=== PATIENT | female | born 1965 | race Hispanic/Latino ===

== ENCOUNTER 2022-06-06 10:50 | Emergency (ER) | payer MEDICARE ==
--- OUTSIDE RECORDS SUMMARY | 2022-06-06 10:59 | XMS REPORT | Continuity of Care Document ---
:1965 Author Organization [facility] t Address [address] [place] [address] Care Team Providers Name Role Phone LAKESHIA MATHIS Primary Care Physician Unavailable ROBSON MURILLO Attending Clinician Unavailable LAKESHIA MATHIS Attending Clinician Unavailable MANN PERDOMO Attending Clinician Unavailable MANN PERDOMO Attending Clinician Unavailable Lakeshia Mathis MD Attending Clinician [phone] Lester Monge MD Attending Clinician 2, [facility] Attending Clinician Unavailable BRAXTON CASTILLO M.D. Attending Clinician Unavailable ROBSON MURILLO, BRIAN Attending Clinician Unavailable Robson Murillo Nkiru Attending Clinician Unavailable Rahul Carmen Attending Clinician Smooth Chandler Attending Clinician Yana Chen Attending Clinician Rebecca Belle Attending Clinician Jie Ortega Attending Clinician MANN PERDOMO Admitting Clinician Unavailable Yana Chen Admitting Clinician Rebecca Belle Admitting Clinician Jie Ortega Admitting Clinician Payers Payer Name Policy Type Policy Number Effective Date Expiration Date Ryan ortiz 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 hyperlipid 10-24 it y of emia emia 00:00: [place] 00 Medical Branch History of History of Disease Active 2020-09 U nivers stroke stroke 10-24 ity of 00:00: [place] 00 Medical Branch Sciatic Sciatic Disease Active 2020-09 Univers nerve nerve 10-24 ity of pain, pain, 00:00: [place] right right 00 Medical Branch Limitation Limitation Disease Active U nivers of joint of joint 9-16 ity of motion of motion of 00:[place] right right 00 [place] wrist wrist Branch Limitation Limitation Disease Active U nivers of joint of joint 9-16 ity of motion of motion of 00:[place] right [place] right hand 00 Me dical Branch Chronic Chronic Disease Active Univers allergic allergic 6-10 ity of rhinitis rhinitis 00:00: [place] 00 Medical Branch Decreased Decreased Disease Active Uni vers activities activities 5-27 it y of of daily of daily 00:00: [place] living living 00 Medical (ADL) (ADL) Branch Stiffness Stiffness Disease Active Uni vers of right of right 5-27 ity of wrist wrist 00:00: [place] joint joint 00 Medical Branch Stiffness Stiffness Disease Active Uni vers of finger of finger 5-13 ity of joint of joint of 00:00: [place] right hand right hand 00 Me dical Branch Right hand Right hand Disease Active U nivers weakness weakness 5-13 ity of 00:00: [place] 00 Medical Branch 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 and 4-21 it y of urge urge 00:00: [place] urinary urinary 00 Medical incontinen incontinen Br anch ce ce Arthritis Arthritis Disease Active Uni vers of right of right 8-17 ity of subtalar subtalar 00:00: [place] joint joint 00 Medical Branch Osteochond Osteochond Disease Active U nivers ral lesion ral lesion 05-09 it y of of talar of talar 00:00: [place] dome dome 00 Medical Branch Peroneal Peroneal Disease Active Unive rs tendinitis tendinitis 05-09 it y of , right , right 00:00: [place] [facility] 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, varus, 05-09 ity of acquired, acquired, 00:[place] 00 [place] Chronic Chronic Disease Active Univers left left 2-28 ity of shoulder shoulder 00:00: [place] pain pain 00 Medical Branch Pain of Pain of Disease Active Univers foot, foot, 2-28 ity of unspecifie unspecifie 00:[place] 00 Medical laterality laterality Br anch Chronic Chronic Disease Active Univers pain pain 228 ity of syndrome syndrome 00:00: [place] [facility] Obesity Obesity Disease Active Univers (BMI (BMI 5-20 ity of 30-39.9) 30-39.9) 00:00: [place] [address] Medical Branch Encounter Encounter Disease Active Overview: Univers for for 01-21 Formattin ity of complete complete 00:00: g of this [place] as eye exam eye exam 00 note Medica l might be Branch different from the original. Added automatic ally from request for surgery [id number] Epigastric Epigastric Disease Active Overview : Univers pain pain 01-21 Formattin ity of 00:00: g of this [place] 00 note Medical might be Branch different from the original. Added automatic ally from request for surgery [id number] Chronic Chronic Disease Active 2017-09 Univers endometrit endometrit 1-16 it y of is is 00:00: [place] [facility] Postmenopa Postmenopa Disease Active 2017-09 U nivers usal usal 1-16 ity of bleeding bleeding 00:00: [place] [facility] Chronic Chronic Disease Active Univers right-side right-side 5-04 it y of d low back d low back 00:00[place] pain pain 00 Medical without without Branch sciatica sciatica Neuropathy Neuropathy Disease Active 2016-09 U nivers 2-27 ity of 00:00: [place] 00 Medical Branch Type 2 Type 2 Disease Active Univers diabetes diabetes 9 ity of mellitus mellitus 00:00: [place] without without 00 Medical complicati complicati Br anch on, on, without without long-term long-term current current use of use of insulin insulin Essential Essential Disease Active Uni vers hypertensi hypertensi 06-17 it y of on on 00:00: [place] 00 Medical Branch JAMSHID JAMSHID Disease Active Univers (obstructi (obstructi 06-17 it y of ve sleep ve sleep 00:00: [place] apnea) apnea) 00 Medical Branch Hemiplegia Hemiplegia Disease Active U nivers affecting affecting 7-11 ity of right side right [place] 00 Medical right-kala right-kala Br [place] patient as patient as late late effect of effect of cerebrovas cerebrovas cular cular disease disease CVA CVA Diagnosis Active 2017-01-07 Mem oria Active 01-04 04:00:00 l 01/04/2017 00:00: Gerardo zafar [address], Rehabilita tion LWOT LWOT Diagnosis Active 2014-03-21 Mem oria Active 03-19 02:43:00 l 03/19/2014 00:00: Gerardo zafar [address] STROKE STROKE Diagnosis Active 2014-03-18 Me moria LIKE LIKE 03-17 06:12:00 l SYMPTOMS SYMPTOMS 00:00: Gerardo zafar Active 00 03/17/2014 [facility] STROKE STROKE Diagnosis Active 2015-09-14 Me moria LIKE LIKE 03-17 14:33:00 l SYMPTOMS, SYMPTOMS, 00:00: Yoni oliveira TIA TIA Active 03/17/2014 [facility] HEMORRHAGI HEMORRHAG Diagnosis Active 2015-09-14 Clare Moreno CVA IC CVA 11-26 14:34:00 l Active 00:00: Srikanth 11/26/2013 00 [facility] History of History of Problem Resolve [place] type 2 type 2 HL7.CCDAR2 d Physic i diabetes diabetes ans mellitus mellitus TRANS TRANS Diagnosis Active 2015-09-14 Mem oria CEREB CEREB 14:33:00 l ISCHEMIA ISCHEMIA Gerardo zafar NEC NEC Active [facility] History of History of Problem Resolve [place] essential essential HL7.CCDAR2 d Physici hypertensi hypertensi an s on on History of History of Problem Resolve [facility] Hemiparesi Hemiparesi HL7.CCDAR2 d Physici s due to s due to ans recent recent stroke stroke History of History of Problem Resolve UT hyperlipid hyperlipid HL7.CCDAR2 d Physici emia emia ans Personal Personal Problem Resolve UT history of history of HL7.CCDAR2 d Physici cerebral cerebral ans parenchyma parenchyma l l hemorrhage hemorrhage Depression Depression Problem Active U T HL7.CCDAR2 Physic i ans Insomnia Insomnia Problem Active UT HL7.CCDAR2 Physic i ans Peripheral Peripheral Problem Active U T neuralgia neuralgia HL7.CCDAR2 Physici ans Type 2 Type 2 Problem Active UT diabetes diabetes HL7.CCDAR2 Ph ysici mellitus mellitus ans with other with other neurologic neurologic complicati complicati on on Benign Benign Problem Active UT essential essential HL7.CCDAR2 Physici hypertensi hypertensi an s on on Abnormal Abnormal Problem Active UT laboratory laboratory HL7.CCDAR2 Physici test test ans Ankle Ankle Problem Active UT pain, pain, HL7.CCDAR2 Physic i right right ans ICH ICH Problem Active UT (intracere (intracere HL7.CCDAR2 Physici bral bral ans hemorrhage hemorrhage ) ) Spastic Spastic Problem Active UT hemiparesi hemiparesi HL7.CCDAR2 Physici s of right s of right an s dominant dominant side side Mancini's Mancini's Problem Resolve 2017-06-17 Mem oria palsy palsy d 05:46:07 l (disorder) (disorder) Vaibhav berry Resolved Problem 06/17/2017 [facility] Cerebral Cerebral Problem Resolve 2017-06-17 Memoria infarction infarction d 05:46:07 l (disorder) (disorder) Vaibhav berry Resolved Problem 06/17/2017 [facility] Gastritis Gastritis Problem Resolve 2017-06-17 Memoria and and d 05:46:07 l duodenitis duodenitis Vaibhav berry (disorder) (disorder) Resolved Problem 06/17/2017 [facility] 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 21:31:50 l occlusion occlusion Herm tee (disorder) (disorder) Resolved Problem 12/02/2013 [facility] Gastritis( Gastritis Problem Resolve 2013-12-02 Memoria Confirmed) (Confirmed d 21:31:50 l ) Resolved Gerardo n Problem 12/02/2013 [facility] CVA CVA Problem Resolve 2014-03-23 Jose Luis dennis (cerebral (cerebral d 20:08:30 l infarction infarction He rmann )(Confirme )(Confirme d) d) Resolved Problem 03/23/2014 [facility] Diabetes Diabetes Problem Active 2017-06-17 Memoria mellitus mellitus 05:46:07 l (disorder) (disorder) He rmann Active Problem 06/17/2017 [facility] OPID [place] Dizziness Dizziness Problem Active 2017-06-17 Memoria (finding) (finding) 05:46:07 l Active Srikanth Problem 06/17/2017 [facility] OPID Srikanth Seizure Seizure Problem Active 2017-06-17 Me moria (finding) (finding) 05:46:07 l Active Srikanth Problem 06/17/2017 [facility] OPID Srikanth CVA CVA Diagnosis Active 2015-09-14 Mem oria Active 14:34:00 l [facility] Rehabilita tion History of Past Illness Condition Condition Condition Status Onset Resolution Last Treating Co mments Source Name Details Category Date Date Treatment Clinician Date Headache Headache Problem 2017-01-08 2017-01-08 Memoria 01/05/201701-05 01:04:01 01:04:01 l 05:00: Gerardo zafar [address] Allergies, Adverse Reactions, Alerts Allergy Allergy Status Severity Reaction(s) Onset Inactive Treating Comm ents Source Name Type Date Date Clinician Ibuprofe Propensi Active Rash Univer s n ty to 05-14 ity of adverse 00:00: [place] reaction 00 Medical s Branch Ciproflo Propensi Active Unknown - Cannot Uni vers xacin-De ty to See comments 05-14 remember. ity of xamethas adverse 00:00: [place] one reaction 00 Medical s Branch Morphine Propensi Active Other - See Severe U nivers ty to comments 05-14 headache ity of adverse 00:00: [place] reaction 00 Medical s Branch Tramadol Propensi Active Other - See Loss of Univers ty to comments 05-14 voice ity of adverse 00:00: [place] reaction 00 Medical s Branch IBUPROFE DRUG Active Rash Univers N INGREDI 05-14 ity of 00:00: [place] 00 Medical Branch CIPROFLO DRUG Active Unknown-Cmnt Un yesi XACIN-DE 05-14 ity of XAMETHAS 00:00: [place] ONE 00 Medical Branch MORPHINE DRUG Active Other-Cmnt Univ ers INGREDI 05-14 ity of 00:00: [place] 00 Medical Branch TRAMADOL DRUG Active Other-Cmnt Univ ers INGREDI 05-14 ity of 00:00: 00 Medical Branch Aleve drug Active UT TABS allergy Physici ans Morphine drug Active UT Derivati allergy Physici ves ans tramadol drug Active UT allergy Physici ans morphine morphine Active Memori a l [place] traMADol traMADol Active Memori a l Srikanth Advil Advil Active Memoria l [place] Ciprodex Ciprodex Active Memori a <sup>1</ <sup>1</ l sup> sup> [place] Family History Family Member Diagnosis Comments Start Date Stop Date Source Mother Family history of Unknown [facility] Physicians and unspecified causes of morbidity Father Family history of Unknown [facility] Physicians and unspecified causes of morbidity Social History Social Habit Start Date Stop Date Quantity Comments Source History [facility] o f Alcohol Std [place] Medical Drinks Branch History [facility] University o f Alcohol Binge [place] Medic al Branch History [facility] o f Alcohol Comment [place] Med ical Branch Exposure to 2022-05-14 2022-05-24 Not sure [facility] SARS-CoV-2 00:00:00 11:55:00 [place] Medical (event) Branch Alcohol intake 2022-05-18 2022-05-18 Lifetime University of 00:00:00 00:00:00 non-drinker [place] Medical (finding) Branch Tobacco use and 2022-04-02 2022-04-02 Smokeless tobacco Un iversity of exposure 00:00:00 00:00:00 non-user [place] [facility] History SDOH 2021-11-02 2021-11-02 1 University o f Alcohol Frequency 00:00:00 00:00:00 [place] M edical Branch Social History 2014-03-18 2014-03-18 [facility] sophia 20:46:33 20:46:33 [birth year] Universit y of 00:00:00 00:00:00 [facility] Smoking Status Start Date Stop Date Source Never smoked tobacco [facility] Medications Ordered Filled Start Stop Current Ordering Indication Dosage Frequency Signature Comments Components Source Medication Medication Date Date Medication? Clinician (SIG) Name Name metoclopram Yes [id number] 10mg Take 1 Univers rochelle HCl 8-31 tablet by ity of (REGLAN) 10 00:00: mouth [place] mg tablet 00 before Medical meals. Branch topiramate Yes [id number] 100mg Take 1 Univers 100 mg 8-26 tablet by ity of tablet 00:00: mouth 2 00 (two) Medical times Branch daily. baclofen 5 Yes [id number] 5mg Take 1 Univers mg tablet 8-26 9102 tablet by ity o f 00:00: mouth 3 (three) Medical times Branch daily. albuterol Yes [id number] 2{puff} Inhale 2 Univers 90 8-26 Puffs ity of mcg/actuati 00:00: every 6 [place] on inhaler 00 (six) Medical hours as Branch needed for Wheezing or Shortness of Breath. omeprazole 0 Yes [id number] 40mg Take 2 U nivers 20 mg 8-26 capsules ity of capsule 00:00: [place] mouth 2 [place] 00 (two) Medical times Branch daily. pravastatin 0 Yes [id number] 10mg Take 1 Univers 10 mg 8-26 tablet by ity of tablet 00:00: mouth at [place] 00 bedtime. Medical Branch topiramate Yes [id number] 100mg Take 1 Univers 100 mg 8-26 tablet by ity of tablet 00:00: mouth 2 [place] 00 (two) Medical times Branch daily. baclofen 5 2021-0 Yes [id number] 5mg Take 1 Univers mg tablet 8-26 9102 tablet by ity o f 00:00: mouth 3 [place] 00 (three) Medical times Branch daily. albuterol 2021-0 Yes [id number] 2{puff} Inhale 2 Univers 90 8-26 Puffs ity of mcg/actuati 00:00: every 6 [place] on inhaler 00 (six) Medical hours as Branch needed for Wheezing or Shortness of Breath. omeprazole 2022-0 Yes [id number] 40mg Take 2 U nivers 20 mg 8-26 capsules ity of capsule 00:00: [place] mouth 2 [place] 00 (two) Medical times Branch daily. pravastatin 202-0 Yes [id number] 10mg Take 1 Univers 10 mg 8-26 tablet by ity of tablet 00:00: mouth at [place] 00 bedtime. Medical Branch topiramate 2021-0 Yes [id number] 100mg Take 1 Univers 100 mg 8-26 tablet by ity of tablet 00:00: mouth 2 [place] 00 (two) Medical times Branch daily. baclofen 5 2021-0 Yes [id number] 5mg Take 1 Univers mg tablet 8-26 9102 tablet by ity o f 00:00: mouth 3 [place] 00 (three) Medical times Branch daily. albuterol 2021-0 Yes [id number] 2{puff} Inhale 2 Univers 90 8-26 Puffs ity of mcg/actuati 00:00: every 6 [place] on inhaler 00 (six) Medical hours as Branch needed for Wheezing or Shortness of Breath. omeprazole 2021-0 Yes [id number] 40mg Take 2 U nivers 20 mg 8-26 capsules ity of capsule 00:00: [place] mouth 2 [place] 00 (two) Medical times Branch daily. pravastatin 2021-0 Yes [id number] 10mg Take 1 Univers 10 mg 8-26 tablet by ity of tablet 00:00: mouth at [place] 00 bedtime. Medical Branch ondansetron 2021-0 Yes [id number] 4mg Take 1 Univers 4 mg 8-21 tablet by ity of disintegrat 00:00: mouth [place] ing tablet 00 every 8 Medica l (eight) Branch hours as needed for Nausea and Vomiting (N/V). ondansetron 2021-0 Yes [id number] 4mg Take 1 Univers 4 mg 8-21 tablet by ity of disintegrat 00:00: mouth [place] ing tablet 00 every 8 Medica l (eight) Branch hours as needed for Nausea and Vomiting (N/V). ondansetron 2021-0 Yes [id number] 4mg Take 1 Univers 4 mg 8-21 tablet by ity of disintegrat 00:00: mouth [place] ing tablet 00 every 8 Medica l (eight) Branch hours as needed for Nausea and Vomiting (N/V). albuterol 2021- No [id number] 2{puff} Inhale 2 Univers sulfate 8-04 08-26 Puffs 4 ity of (PROAIR 00:00: 00:00 (four) [place] RESPICLICK) 00 :00 times Medical 90 daily as Branch mcg/actuati needed on AePB (SOBOE, wheezing). albuterol 2021- No [id number] 2{puff} Inhale 2 Univers sulfate 8-04 08-26 Puffs 4 ity of (PROAIR 00:00: 00:00 (four) [place] RESPICLICK) 00 :00 times Medical 90 daily as Branch mcg/actuati needed on AePB (SOBOE, wheezing). topiramate 2021- No [id number] 50mg Take 2 Univers 25 mg 8-02 08-26 tablets by ity of tablet 00:00: 00:00 mouth 2 [place] 00 :00 (two) Medical times Branch daily. topiramate 2021- No [id number] 50mg Take 2 Univers 25 mg 8-02 08-26 tablets by ity of tablet 00:00: 00:00 mouth 2 [place] 00 :00 (two) Medical times Branch daily. gabapentin 2021-0 Yes [id number] TAKE 4 Univers 300 mg 7-11 CAPSULES ity of capsule 00:00: BY MOUTH [place] 00 IN THE Medical MORNING Branch FOR PAIN AND 3 CAPSULES BY MOUTH AT NOON AND 3 CAPSULES BY MOUTH AT NIGHT FOR PAIN AND SLEEP. gabapentin 2021-0 Yes [id number] TAKE 4 Univers 300 mg 7-11 CAPSULES ity of capsule 00:00: BY MOUTH [place] 00 IN THE Medical MORNING Branch FOR PAIN AND 3 CAPSULES BY MOUTH AT NOON AND 3 CAPSULES BY MOUTH AT NIGHT FOR PAIN AND SLEEP. gabapentin 2021-0 Yes [id number] TAKE 4 Univers 300 mg 7-11 CAPSULES ity of capsule 00:00: BY MOUTH 00 IN THE Medical MORNING Branch FOR PAIN AND 3 CAPSULES BY MOUTH AT NOON AND 3 CAPSULES BY MOUTH AT NIGHT FOR PAIN AND SLEEP. lisinopriL 2021- No [id number] 10mg Take 1 Univers 10 mg 7-11 08-26 tablet by ity of tablet 00:00: 00:00 mouth [place] 00 :00 daily. [facility] Branch metFORMIN 2021- No [id number] 250mg Take 0.5 Univers (GLUCOPHAGE 04-02 tablets by i ty of ) 500 mg 00:00: 00:00 mouth [place] tablet 00 :00 every Medical morning. Branch lisinopriL 2021- No [id number] 10mg Take 1 Univers 10 mg 04-02 tablet by ity of tablet 00:00: 00:00 mouth [place] 00 :00 daily. Medical Branch metFORMIN 2021- No [id number] 250mg Take 0.5 Univers (GLUCOPHAGE 04-02 tablets by i ty of ) 500 mg 00:00: 00:00 mouth [place] tablet 00 :00 every Medical morning. Branch baclofen 5 2021- No [id number] 5mg Take 1 Univers mg tablet 01-05 9102 tablet by ity of 00:00: 00:00 mouth 3 [place] 00 :00 (three) Medical times Branch daily. baclofen 5 2021- No [id number] 5mg Take 1 Univers mg tablet 01-05 9102 tablet by ity of 00:00: 00:00 mouth 3 [place] 00 :00 (three) Medical times Branch daily. blood sugar Yes [id number] Check Univers diagnostic 3-07 blood ity of strip 00:00: sugar 2 [place] 00 times a Medical day. Branch E11.9. Brand per insurance. blood sugar 0 Yes [id number] Check Univers diagnostic 3-07 blood ity of strip 00:00: sugar 2 [place] 00 times a Medical day. Branch E11.9. Brand per insurance. blood sugar 0 Yes [id number] Check Univers diagnostic 3-07 blood ity of strip 00:00: sugar 2 [place] 00 times a Medical day. Branch E11.9. Brand per insurance. Blood-Gluco 2021-0 Yes [id number] Check Univers se Meter 3-04 sugars 2 ity of Kit 00:00: times a [place] 00 day. Dx. Medical Code E11.9 Branch Brand per Insurance Lancets 2021-0 Yes [id number] Check Univ ers Misc 3-04 blood ity of 00:00: sugar 2 [place] 00 times a Medical day. Branch E11.9. Brand per insurance. Blood-Gluco 2021-0 Yes [id number] Check Univers se Meter 3-04 sugars 2 ity of Kit 00:00: times a 00 day. Dx. Medical Code E11.9 Branch Brand per Insurance Lancets 0 Yes [id number] Check Univ ers Misc 3-04 blood ity of 00:00: sugar 2 [place] 00 times a Medical day. Branch E11.9. Brand per insurance. Blood-Gluco 2021-0 Yes [id number] Check Univers se Meter 3-04 sugars 2 ity of Kit 00:00: times a 00 day. Dx. Medical Code E11.9 Branch Brand per Insurance Lancets 0 Yes [id number] Check Univ ers Misc 3-04 blood ity of 00:00: sugar 2 00 times a Medical day. Branch E11.9. Brand per insurance. pravastatin 2020-09- No [id number] 10mg Take 1 Univers 10 mg 2-26 tablet by ity of tablet 00:00: 00:00 mouth at [place] 00 :00 bedtime. Medical Branch pravastatin 2020-09- No [id number] 10mg Take 1 Univers 10 mg 2-26 tablet by ity of tablet 00:00: 00:00 mouth at [place] 00 :00 bedtime. Medical Branch terbinafine 2020-09 Yes [id number] Apply to Univers HCL 1 % 0-27 area(s) 2 ity of cream 00:00: (two) [place] 00 times Medical daily. Branch terbinafine 2020-09 Yes [id number] Apply to Univers HCL 1 % 0-27 area(s) 2 ity of cream 00:00: (two) [place] 00 times Medical daily. Branch terbinafine 2020-09 Yes [id number] Apply to Univers HCL 1 % 0-27 area(s) 2 ity of cream 00:00: (two) [place] 00 times Medical daily. Branch omeprazole 2020-09- No [id number] 20mg Take 1 Univers 20 mg 0-25 08-26 capsule by ity of capsule 00:00: 00:00 mouth [place] 00 :00 daily. Medical Branch omeprazole 2020-09- No [id number] 20mg Take 1 Univers 20 mg 0-25 08-26 capsule by ity of capsule 00:00: 00:00 mouth [place] 00 :00 daily. Medical Branch docusate Yes TAKE 1 Univers 100 mg 9-15 CAPSULE BY ity of capsule 00:00: MOUTH [place] 00 TWICE Medical DAILY Branch NEEDED docusate Yes TAKE 1 Univers 100 mg 9-15 CAPSULE BY ity of capsule 00:00: MOUTH [place] 00 TWICE Medical DAILY Branch NEEDED docusate Yes TAKE 1 Univers 100 mg 9-15 CAPSULE BY ity of capsule 00:00: MOUTH [place] 00 TWICE Medical DAILY Branch NEEDED nystatin Yes [id number] Apply to Univers 100,000 7-19 area(s) 2 ity of unit/gram 00:00: (two) [place] ointment 00 times Medical daily. Branch nystatin Yes [id number] Apply to Univers 100,000 7-19 area(s) 2 ity of unit/gram 00:00: (two) [place] ointment 00 times Medical daily. Branch nystatin Yes [id number] Apply to Univers 100,000 7-19 area(s) 2 ity of unit/gram 00:00: (two) [place] ointment 00 times Medical daily. Branch lubiproston 2019-09- No [id number] 8ug Take 1 Univers e 8 mcg 1-24 -26 capsule by ity o f capsule 00:00: 00:00 mouth 2 [place] 00 :00 (two) Medical times [place] daily with meals. For constipati on lubiproston 2019-09- No [id number] 8ug Take 1 Univers e 8 mcg 1-24 -26 capsule by ity o f capsule 00:00: 00:00 mouth 2 [place] 00 :00 (two) Medical times [place] daily with meals. For constipati on Alcohol Yes [id number] Use to Uni vers Swabs 7-28 test blood ity of (ALCOHOL 00:00: sugar 4 [place] PREP PADS) 00 times Medical PadM daily Branch Alcohol Yes [id number] Use to Uni vers Swabs 7-28 test blood ity of (ALCOHOL 00:00: sugar 4 [place] PREP PADS) 00 times Medical PadM daily Branch Alcohol Yes [id number] Use to Uni vers Swabs 7-28 test blood ity of (ALCOHOL 00:00: sugar 4 [place] PREP PADS) 00 times Medical PadM daily Branch LANCING 0 Yes [id number] Use with U nivers DEVICE Misc 8-27 lancets to it y of 00:00: check blood Medical glucose Branch LANCING 2019-0 Yes [id number] Use with U nivers DEVICE Misc 8-27 lancets to it y of 00:00: check blood Medical glucose Branch LANCING 2019-0 Yes [id number] Use with U nivers DEVICE Misc 8-27 lancets to it y of 00:00: check [place] blood Medical glucose Branch aspirin 81 Yes [id number] 81mg Take 1 Univers mg EC 4-23 tablet by ity of tablet 00:00: mouth [place] 00 daily. Medical Branch aspirin 81 Yes [id number] 81mg Take 1 Univers mg EC 4-23 tablet by ity of tablet 00:00: mouth [place] 00 daily. Medical Branch aspirin 81 Yes [id number] 81mg Take 1 Univers mg EC 4-23 tablet by ity of tablet 00:00: mouth [place] 00 daily. Medical Branch Lisinopril Lisinopril Yes ROBSON QD TAKE 1 UT 5 MG Oral 5 MG Oral 7-20 OKPALA TABLET BY Physici Tablet Tablet 15:00: N.P. MOUTH ans 45 DAILY DIRECTED Baclofen 10 Baclofen 10 Yes BRAXTON Q0.5D TAKE 1 UT MG Oral MG Oral 5-15 CASTILLO TABLET BY P hysici Tablet Tablet 17:00: M.D. MOUTH ans 40 TWICE DAILY Cyclobenzap Cyclobenzap Yes 1 TAKE 1 UT rine HCl - rine HCl - 5-14 TABLET AT Physici 10 MG Oral 10 MG Oral 00:00: BEDTIME. ans Tablet Tablet 00 Omeprazole Omeprazole Yes 1 QD TAKE 1 UT 40 MG Oral 40 MG Oral 4-09 CAPSULE Physici Capsule Capsule 00:00: DAILY ans Delayed Delayed 00 Release Release Amoxicillin Amoxicillin Yes Q12H TAKE 1 UT 875 MG Oral 875 MG Oral 4-09 TABLET [facility] Tablet Tablet 00:00: EVERY 12 ans 00 HOURS DAILY. MetFORMIN MetFORMIN Yes ROBSON TAKE 2 UT HCl - 500 HCl - 500 7-05 OKPALA TABLETS BY [facility] MG Oral MG Oral 15:48: N.P. MOUTH ans Tablet Tablet 22 DAILY FLUoxetine FLUoxetine Yes ROBSON TAKE 1 UT HCl - 20 MG HCl - 20 MG 6-23 OKPALA CAPSULE BY [facility] Oral Oral 00:00: N.P. MOUTH ans Capsule Capsule 00 EVERY MORNING AmLODIPine AmLODIPine Yes ROBSON TAKE 1 UT Besylate 10 Besylate 10 6-23 OKPALA TABLET BY [facility] MG Oral MG Oral 00:00: N.P. MOUTH ans Tablet Tablet 00 EVERY DAY Gabapentin Gabapentin Yes BRAXTON Quintanilla0.3333D TAKE 2 UT 300 MG Oral 300 MG Oral 6-23 CASTILLO CAPSULES 3 [facility] Capsule Capsule 00:00: M.D. TIMES ans 00 DAILY. gabapentin Yes 100 mg = 1 M emoria 100 MG Oral 4-15 cap, PO, l Capsule 11:00: TID, # 90 Blessing nn 00 cap, 1 Refill(s) topiramate Yes = 12.5 mg, M emoria 25 MG Oral 6-27 PO, QPM, # l Tablet 14:08: 30 Yoni wilsona nn [Topamax] 00 0 Refill(s) atorvastati Yes 80 mg = 1 M emoria n 80 mg 6-27 tab, PO, l oral tablet 14:08: Bedtime, # [place] 00 30 tab, 0 Refill(s) Lisinopril No Notes: Memor ia - (Same as: l 14:00: Prinivil, [place] 00 Zestril) Baclofen No Notes: Memoria 03-19 (Same As: l 14:00: Lioresal) Srikanth 00 Depacon + No Notes: Memori a Sodium 6-26 Dilute in l Chloride 20:20: at least Blessing nn 0.9% IV 50 00 50ml D5W mL or NS. Infusion rate = 20 mg/min (Same As: Depacon) Magnesium No 1 gm, 100 Mem oria Sulfate 6-26 mL, Route: l 19:34: IV, Drug form: INJ, ONCE, Dosing Weight 77.727, kg, Start date: 03/18/14 14:34:00, Stop date: 03/18/14 14:34:00 Depakote 2014-0 No 500 mg, Memori a 6-26 Route: IV, l 19:34: ONCE, Dosing Weight 77.727, kg, Start date: 03/18/14 14:34:00, Stop date: 03/18/14 14:34:00 Solu-Medrol No Notes: Jose Luis dennis 03-18 (Same l 19:33: as:Solu-ME 00 DROL, A-Methapre d) Phenergan No Notes: Do Mem oria - not give l 19:33: IV push. (Same as: Phenergan) Benadryl No Notes: Memoria 03-18 (Same as: l 19:33: Benadryl) Trazodone Yes 50 mg = 1 Mem oria Hydrochlori -26 tab, PO, l de 50 MG 15:18: Bedtime Gerardo n Oral Tablet 00 baclofen 10 Yes 10 mg = 1 M emoria mg oral -26 tab, PO, l tablet 15:18: TID metoprolol Yes 50 mg = 1 Me moria tartrate 50 -26 tab, PO, l mg oral 15:16: Daily Srikanth tablet lisinopril Yes 5 mg = 1 Mem oria 5 mg oral 6-26 tab, PO, l tablet 15:16: Daily Metformin Yes 500 mg = 1 Me moria hydrochlori -26 tab, PO, l de 500 MG 15:15: BID [place] Oral Tablet Metoclopram Yes Special Mem oria rochelle 5 MG 03-18 Instructio l Oral Tablet 15:13: ns: before meals omeprazole Yes 40 mg = 1 Me moria 40 mg oral 26 cap, PO, l delayed 15:12: Daily, as Blessing nn release 00 needed capsule Saline No Notes: Memoria Flush 0.9% 03-18 (Same as: l 14:00: BD Posiflush) heparin, No Notes: Memoria porcine - porcine l 13:00: heparin Lovenox No Notes: Memoria 6- (Same as: l 13:00: Lovenox) [place] 00 Motrin No 600 mg, Memoria 03-18 Route: PO, l 10:48: Drug form: [place] TAB, ONCE, Dosing Weight 77.727, kg, Priority: STAT, Start date: 03/18/14 5:48:00, Stop date: 03/18/14 5:48:00 atorvastati No Notes: Jose Luis dennis n 03-18 Same as l 09:47: Lipitor Saline No Notes: Memoria Flush 0.9% 03-18 (Same as: l 09:42: BD Srikanth 00 Posiflush) Ibuprofen No Notes: Memori a 03-18 (Same as: l 05:08: Motrin) "Do Not Crush" Take with food. Iohexol No Special Memoria 03-18 Instructio l 03:15: ns: Dose = Srikanth 00 2.2ml/kg, Max dose = 100ml -- "To be infused by Radiology Staff ONLY" Acetaminoph No Notes: Do M emoria en 03-18 not exceed l 02:46: 4 gm/day. Srikanth (Same as: Tylenol) Cardene 40 No Notes: Memor ia mg in NS 03-18 Same as: l 200 ml IV 02:43: Cardene Blessing nn 40 mg 00 Concentrat ion: (0.2 mg /1 ml ) Saline No Notes: Memoria Flush 0.9% 03-18 (Same as: l 02:41: BD Srikanth Posiflush) Macrobid No Notes: Not Mem oria -11 Recommende l 17:00: d for Srikanth 00 patients with CrCl< 50 ml/min With food (Same as:Macroda ntin) Nitrofurant Yes 100 mg = 1 Memoria oin 100 MG 11 cap, PO, l Oral 16:05: [id number], # [place] Capsule 00 14 cap, 0 [Macrobid] Refill(s) Restoril No Notes: Memoria 4-10 (Same As: l 18:55: Restoril) Srikanth Zofran No Notes: Memoria 4-10 (Same as: l 18:55: Zofran) Milk of No Notes: Memoria Magnesia 4-10 (Same as: l 18:54: Milk of Magnesia, MOM) Dulcolax No Notes: Memoria Laxative 4-10 (Same As: l 18:54: Dulcolax, Bisco-Lax) Tylenol No Notes: Memoria 4-10 (Same as: l 18:54: Tylenol) Metoclopram Yes 5 mg = 1 Me moria rochelle 5 MG 4-10 tab, PO, l Oral Tablet 16:10: TID-Before [Reglan] 00 Meals, # 90 tab, 0 Refill(s) Metformin Yes 500 mg = 1 Me moria hydrochlori 4-10 tab, PO, l de 500 MG 16:10: Q12H, # 60 He rmann Oral Tablet 00 tab, 0 Refill(s) baclofen 10 Yes 10 mg = 1 M emoria mg oral 4-10 tab, PO, l tablet 16:10: Q8H, # 90 Gerardo n 00 tab, 0 Refill(s) lisinopril Yes 5 mg = 1 Mem oria 5 mg oral 4-10 tab, PO, l tablet 16:10: Daily, # Srikanth 00 30 tab, 0 Refill(s) pantoprazol Yes 40 mg = 1 M emoria e 40 mg 4-10 tab, PO, l oral 16:10: Before [place] enteric 00 Dinner, # coated 30 tab, 0 tablet Refill(s) Tylenol No 650 mg, Memoria 4-10 Route: PO, l 06:31: Drug form: [place] 00 TAB, Q6H, Dosing Weight 81.818, kg, PRN Pain, Start date: 12/31/13 1:31:00, Duration: 30 day, Stop date: 01/30/14 1:30:00 Docusate No Notes: Memoria 4-09 (Same as: l 13:00: Colace) (Do Not Crush) sennosides, No Notes: Jose Luis dennis FCI 8.6 MG 4-09 (Same as: l Oral Tablet 02:00: Senokot) He rm Baclofen No Notes: Memoria 12-29 (Same As: l 21:00: Lioresal) Srikanth 00 insulin No 60 units) Jose Luis dennis regular 100 12-29 Stable for l units/mL 16:16: 28 days at [place] [id number] room recombinant temperatur e Expires in days from ____Date Dextrose No 6.25 gm, Memor ia 50% Syringe 12-29 12.5 mL, l 16:16: Route: Srikanth 00 IVP, Drug Form: INJ, Dosing Weight 81.818, kg, PRN, PRN Abnormal Lab Result, Start date: 12/29/13 11:16:00, Duration: 30 day, Stop date: 01/28/14 11:15:00 Dextrose No 25 gm, 50 Jose Luis dennis 50% Syringe 08 mL, Route: l 16:15: IVP, Drug Form: INJ, Dosing Weight 81.818, kg, PRN, PRN Abnormal Lab Result, Start date: 12/29/13 11:15:00, Duration: 30 day, Stop date: 01/28/14 11:14:00 Epinephrine No Notes: Jose Luis dennis 1 MG/ML 12-28 (Same as: l Injectable 13:58: Epipen Blessing nn Solution 00 Auto Inejctor) Prefilled syringe for IM use. Benadryl No Notes: Memoria 12-28 (Same as: l 13:56: Benadryl) [place] 00 Ciprofloxac No Notes: Jose Luis dennis in 3 MG/ML 12-28 (Same As: l / 01:00: Ciprodex) Srikanth Dexamethaso 00 ne 1 MG/ML Otic Suspension [Ciprodex] Protonix No Notes: Memoria - Tablet l 21:30: should not Srikanth 00 be chewed or crushed. (Same as: Protonix) tramadol No Notes: Not Mem oria hydrochlori 12-27 to exceed l de 50 MG 17:00: 400mg/day. Her stone Oral Tablet 00 (Same As: [Ultram] Ultram) Ibuprofen No 400 mg, 1 Mem oria 400 MG Oral 12-27 tab, l Tablet 15:36: Route: PO, Blessing nn 00 Drug form: TAB, Q8H, Dosing Weight 81.818, kg, Priority: NOW, Start date: 12/27/13 10:36:00, Duration: 3 day, Stop date: 12/30/13 8:00:00 pantoprazol No Notes: Jose Luis dennis e 12-27 Tablet l 11:30: should not Srikanth 00 be chewed or crushed. (Same as: Protonix) Protonix No 40 mg, Memoria 12-26 Route: l 12:19: IVP, [place] 00 Before Breakfast, Dosing Weight 81.818, kg, Start date: 12/26/13 7:19:00, Duration: 30 day, Stop date: 01/25/14 6:30:00 Lovenox No Notes: Memoria 4-04 (Same as: l 19:00: Lovenox) [place] Lovenox No Notes: Memoria 4-04 (Same as: l 16:00: Lovenox) Srikanth 00 docusate No Notes: Memoria 4-04 (Same as: l 15:32: Colace) [place] 00 Acetaminoph No Notes: Do M emoria en 12-25 not exceed l 13:00: 4 gm/day. Srikanth (Same as: Tylenol) docusate No Notes: Memoria -03 (Same as: l 23:00: Colace) Srikanth lidocaine No Notes: Memori a topical 12-24 Apply only l patch (5% 14:00: once for Herm tee film) 00 up to 12 hours in a 24-hour period (12 hours on and 12 hours off). (Same as: Lidoderm) "Remove old patch before applicatio n of new patch" Lidocaine No Special Memor ia Hydrochlori 03 Instructio l de 0.05 13:00: ns: Remove Herm tee MG/MG 00 after 12 Transdermal hours Patch [Lidoderm] Remove - No 2 patch, Memor ia lidocaine 12-24 Route: l topical 02:00: TOP, Srikanth patch 00 Bedtime, Drug form: ERFILM, Start date: 12/23/13 21:00:00, Duration: 30 day, Stop date: 01/21/14 21:00:00 Hydrocortis No Notes: Jose Luis dennis one 25 12-23 (Same as: l MG/ML 18:00: Anusol-HC, Gerardo n Rectal 00 Proctosol- Cream HC) [Anusol HC] lidocaine No Notes: Memori a topical 12-23 Apply only l patch (5% 18:00: once for Herm tee film) 00 up to 12 hours in a 24-hour period (12 hours on and 12 hours off). (Same as: Lidoderm) "Remove old patch before applicatio n of new patch" Remove - No 1 patch, Memor ia lidocaine 12-23 Route: l topical 17:00: TOP, ONCE, Herm tee patch 00 Drug form: ERFILM, Start date: 12/23/13 12:00:00, Stop date: 12/23/13 12:00:00 Lidocaine No Notes: Memori a Hydrochlori 12-23 Apply only l de 0.05 15:05: once for Gerardo n MG/MG 00 up to 12 Transdermal hours in a Patch 24-hour [Lidoderm] period (12 hours on and 12 hours off). (Same as: Lidoderm) "Remove old patch before applicatio n of new patch" Lidocaine No Notes: Memori a Hydrochlori 12-23 Apply only l de 0.05 14:39: once for Gerardo n MG/MG 00 up to 12 Transdermal hours in a Patch 24-hour period (12 hours on and 12 hours off). (Same as: Lidoderm) "Remove old patch before applicatio n of new patch" Baclofen No Notes: Memoria 4 (Same As: l 21:00: Lioresal) [place] Baclofen No Notes: Memoria 4- (Same As: l 01:00: Lioresal) [place] Lidocaine No Notes: Memori a Hydrochlori -30 Apply only l de 0.05 13:00: once for Gerardo n MG/MG 00 up to 12 Transdermal hours in a Patch 24-hour [Lidoderm] period (12 hours on and 12 hours off). (Same as: Lidoderm) "Remove old patch before applicatio n of new patch" magnesium No Notes: Memori a citrate 3-29 (Same as: l 18:15: Citrate of Magnesia) Magnesium No Notes: Memori a Oxide 3-24 (Same as: l 15:26: Mag-Ox Srikanth 00 400) Magnesium oxide 404xa=049v g elemental magnesium Dose=____m g magnesium oxide (___mg elemental magnesium) heparin No Notes: Memoria 3-20 porcine l 23:00: heparin Srikanth simethicone No 0 Memori a 80 mg oral 3-20 Refill(s) l tablet 22:47: Srikanth Buspirone No 0 Memoria 3-20 Refill(s) l 22:47: Srikanth Namenda No 0 Memoria 3-20 Refill(s) l 22:47: Srikanth Metoclopram No Notes: Jose Luis dennis rochelle 10 MG 3-20 (Same as: l Oral Tablet 21:30: Reglan) Her stone [Reglan] 00 Take 30 min before meals Keflex No Notes: Memoria 3-17 Take on l 19:00: empty Srikanth 00 stomach. (Same As: Keflex) NS (Bolus) No Special Jose Luis dennis IV 500 mL 3-15 Instructio l 14:39: ns: Bolus [place] 00 Dose NS (Bolus) No Special Jose Luis dennis IV 500 mL 3-15 Instructio l 13:49: ns: Bolus Dose Lisinopril No Notes: Memor ia 3-15 (Same as: l 13:00: Prinivil, [place] Zestril) Keflex No Notes: Memoria 3-15 Take on l 05:00: empty [place] stomach. (Same As: Keflex) Keflex No 500 mg, Memoria 3-14 Route: PO, l 21:00: Q8H, Srikanth Dosing Weight 81.818, kg, Start date: 12/04/13 16:00:00, Duration: 30 day, Stop date: 01/03/14 8:00:00 normal 2013- No 1,000 mL, Memori a saline 0.9% 3-14 Rate: 75 l IV 1,000 mL 16:08: ml/hr, Herm tee 00 Infuse over: 13.3 hr, Route: IV, Dosing Weight 81.818 kg, Total Volume: 1,000, Start date: 12/04/13 11:08:00, Duration: 30 day, Stop date: 01/03/14 11:07:00 normal No 1,000 mL, Memori a saline 0.9% 3-14 Rate: 75 l IV 1000 mL 16:06: ml/hr, Blessing nn Infuse over: 13.3 hr, Route: IV, Dosing Weight 81.818 kg, Total Volume: 1,000, Start date: 12/04/13 11:06:00, Duration: 30 day, Stop date: 01/03/14 11:05:00 Bisacodyl No Notes: Memori a 10 MG Enema -13 (Same As: l 19:40: Dulcolax, Bisco-Lax) Metformin No Notes: Memori a 3-13 (Same as: l 01:00: Glucophage ) Take with meal magnesium No Notes: Memori a citrate 3-12 (Same as: l 17:21: Citrate of Magnesia) pantoprazol No Notes: Jose Luis dennis e 3-11 Tablet l 21:30: should not be chewed or crushed. (Same as: Protonix) Rocephin No Notes: Memoria 3-11 (Same As: l 19:00: Rocephin). Use with 100ml NS mini-bag PLUS and infuse over 30 min Lisinopril No Notes: Memor ia 3-11 (Same as: l 14:00: Prinivil, Zestril) insulin No 60 units) Jose Luis dennis isophane-MANAGER SALT 3-11 Stable for l H 13:00: 28 days at Srikanth 00 room temperatur e Expires in days from ____Date Dextrose No 12.5 gm, Memor ia 50% Syringe 3-11 25 mL, l 11:53: Route: [place] 00 IVP, Drug Form: INJ, Dosing Weight 81.818, kg, PRN, PRN Abnormal Lab Result, Start date: 12/01/13 6:53:00, Duration: 30 day, Stop date: 12/31/13 6:52:00 Regular No 60 units) Jose Luis dennis Insulin, 3-11 Stable for l Human 100 11:53: 28 days at rmann UNT/ML 00 room Injectable temperatur Solution e Expires in days from ____Date heparin, No Notes: Memoria porcine 3-11 porcine l 05:00: heparin Docusate No Notes: Memoria 3-11 (Same as: l 02:00: Colace) sennosides, No Notes: Jose Luis dennis FCI 8.6 MG 3-11 (Same as: l Oral Tablet 02:00: Senokot) [facility] 00 Saline No Notes: Memoria Flush 0.9% 3-11 (Same as: l 00:08: BD Posiflush) zolpidem No 5 mg, Memoria 3-11 Route: PO, l 00:08: Drug form: TAB, Bedtime, Dosing Weight 81.818, kg, PRN Insomnia, Start date: 11/30/13 19:08:00, Duration: 30 day, Stop date: 12/30/13 19:07:00 Milk of No Notes: Memoria Magnesia 3-11 (Same as: l 00:08: Milk of Magnesia, MOM) Bisacodyl No Notes: Memori a 3-11 (Same As: l 00:08: Dulcolax, Bisco-Lax) Temazepam No Notes: Memori a 3-11 (Same As: l 00:08: Restoril) Ondansetron No Notes: Jose Luis dennis 3-11 (Same as: l 00:08: Zofran) Acetaminoph No Notes: Jose Luis dennis en 3-11 (Same as: l 00:08: Tylenol) NPH No 10 unit, Memoria Insulin, 3-10 Route: l Pork 22:00: SUB-Q, [place] 00 BID, Dosing Weight 84.545, kg, Start date: 11/30/13 17:00:00, Duration: 30 day, Stop date: 12/30/13 9:00:00 Docusate No Notes: Memoria 3-10 (Same as: l 22:00: Colace) (Do Not Crush) Ceftriaxone No 1 gm, Memor ia 3-10 Route: l 22:00: IVPB, Drug Srikanth 00 form: PDR/INJ, [id number], Dosing Weight 84.545, kg, Start date: 11/30/13 17:00:00, Duration: 30 day, Stop date: 12/29/13 17:00:00 Flexeril No Notes: Memoria 3-10 (Same As: l 21:42: Flexeril) lisinopril Yes 10 mg = 1 Me moria 10 mg oral 3-10 tab, PO, l tablet 18:30: Daily, # Srikanth 00 90 tab, 0 Refill(s) insulin Yes 10 unit = Memor ia isophane 3-10 0.1 mL, l human 18:30: SUB-Q, [place] recombinant 00 BID, # 30 100 mL, 0 units/mL Refill(s) subcutaneou s injection ceftriaxone Yes = 1 gm, Mem oria 1 g 3-10 IVPB, l injection 18:30: [id number], # He rmann 00 4 inj, 0 Refill(s) pneumococca No 0.5 ml, Mem oria l capsular 3-10 Route: IM, l polysacchar 18:00: Drug Form: [place] rochelle type 1 00 INJ, vaccine / Daily, pneumococca Start l capsular date: polysacchar 11/30/13 rochelle type 13:00:00, 10A vaccine Duration: / 1 doses or pneumococca times, l capsular Stop date: polysacchar 11/30/13 rochelle type 13:00:00(S 11A vaccine elida as: / Pneumovax pneumococca 23) l capsular Refrigerat polysacchar e rochelle type 12F vaccine / pneumococca l capsular polysacchar sennosides, No 8.6 mg, 1 M emoria FCI 3-10 tab, l 14:00: Route: PO, Drug Form: TAB, Dosing Weight 84.545, kg, Daily, Start date: 11/30/13 9:00:00, Duration: 30 day, Stop date: 12/29/13 9:00:00(Sa ms as: Senokot) Rocephin No 1 gm, Memoria 11-29 Route: l 19:00: IVPB, Drug form: PDR/INJ, [id number], Dosing Weight 84.545, kg, Start date: 11/29/13 14:00:00, Duration: 30 day, Stop date: 12/28/13 14:00:00(S elida As: Rocephin). Use with 100ml NS mini-bag PLUS and infuse over 30 min Fleet Enema No 133 ml, Mem oria 11-29 Route: IN, l 18:12: Drug Form: MORENITA, Dosing Weight 84.545, kg, ONCE, Start date: 11/29/13 13:12:00, Stop date: 11/29/13 13:12:00 Flexeril No 10 mg, 1 Memor ia 11-29 tab, l 18:02: Route: PO, Drug form: TAB, TID, Dosing Weight 84.545, kg, PRN Spasm, Start date: 11/29/13 13:02:00, Duration: 30 day, Stop date: 12/29/13 13:01:00(S elida As: Flexeril) Lisinopril No 10 mg, 1 Mem oria - tab, l 14:00: Route: PO, Drug form: TAB, Daily, Dosing Weight 84.545, kg, Start date: 11/29/13 9:00:00, Duration: 30 day, Stop date: 12/28/13 9:00:00(Sa me as: Prinivil, Zestril) Labetalol 2013-0 No 10 mg, 2 Jose Luis dennis 3-09 mL, Route: l 01:05: IVP, Drug form: INJ, Q15Min, Dosing Weight 84.545, kg, PRN Hypertensi on, Start date: 11/28/13 19:05:00, Duration: 30 day, Stop date: 12/28/13 20:04:00 Lisinopril 2013-0 No 5 mg, 1 Jose Luis dennis 3-08 tab, l 16:13: Route: PO, Srikanth 00 Drug form: TAB, ONCE, Dosing Weight 84.545, kg, Priority: NOW, Start date: 11/28/13 10:13:00, Stop date: 11/28/13 10:13:00(S elida as: Prinivil, Zestril) Atenolol 25 2013-0 No 25 mg = 1 M emoria MG Oral 3-08 tab, PO, l Tablet 01:03: Daily, # [place] 00 30 tab, 0 Refill(s) heparin, 2013-0 No 5,000 Memoria porcine 3-07 unit, 1 l 22:00: mL, Route: [place] 00 SUB-Q, Drug form: INJ, Q8H, Dosing Weight 84.545, kg, Start date: 11/27/13 16:00:00, Duration: 30 day, Stop date: 12/27/13 8:00:00por cine heparin Lisinopril 2013-0 No 5 mg, 1 Jose Luis dennis 3-07 tab, l 21:15: Route: PO, Drug form: TAB, Daily, Dosing Weight 84.545, kg, Start date: 11/27/13 15:15:00, Duration: 30 day, Stop date: 12/27/13 9:00:00(Sa me as: Prinivil, Zestril) NPH 2013-0 No 10 unit, Memoria Insulin, 3-07 Route: l Pork 13:30: SUB-Q, [place] 00 Before Breakfast, Dosing Weight 84.545, kg, Start date: 11/27/13 7:30:00, Duration: 30 day, Stop date: 12/26/13 7:30:00 NPH 2013-0 No 10 unit, Memoria Insulin, 3-07 Route: l Pork 03:00: SUB-Q, Srikanth 00 Bedtime, Dosing Weight 84.545, kg, Start date: 11/26/13 21:00:00, Duration: 30 day, Stop date: 12/25/13 21:00:00 Iohexol 2013-0 No 85 mL, Memoria 3-07 Route: l 00:00: IVP, Drug Form: SOLN, Dosing Weight 84.545, kg, ONCALL, STAT, Start date: 11/26/13 18:00:00, Duration: 1 doses or times, Stop date: 11/27/13 6:00:00, Dose = 2.2ml/kg, Max dose = 100ml -- "To be infused by Radiology Staff ONLY"(Same as:Omnipaq ue 350). Humulin N 2013- No 10 unit, Jose Luis dennis -06 0.1 mL, l 23:00: Route: SUB-Q, Drug form: INJ, BID, Start date: 11/26/13 17:00:00, Duration: 30 day, Stop date: 12/26/13 9:00:00 60 units) Stable for 28 days at room temperatur e Expires in days from ____Date Labetalol 2013-0 No 100 mg, 1 Mem oria 3-06 tab, l 23:00: Route: PO, Drug form: TAB, BID, Dosing Weight 84.545, kg, Start date: 11/26/13 17:00:00, Duration: 30 day, Stop date: 12/26/13 9:00:00Wit h food. (Same as:Trandat e, Normodyne) Protonix 2013-0 No 40 mg, 1 Memor ia 3-06 tab, l 22:30: Route: PO, Srikanth 00 Drug form: ECTAB, Before Dinner, Start date: 11/26/13 16:30:00, Duration: 30 day, Stop date: 12/25/13 16:30:00Ta blet should not be chewed or crushed. (Same as: Protonix) Captopril No 25 mg, Memori a 306 Route: PO, l 22:00: Drug form: Srikanth 00 TAB, Q8H, Dosing Weight 84.545, kg, Start date: 11/26/13 16:00:00, Duration: 30 day, Stop date: 12/26/13 8:00:00 omeprazole Yes 40 mg = 1 Me moria 40 mg oral 3-06 cap, PO, l delayed 16:26: Daily, # Gerardo n release 00 30 cap, 0 capsule Refill(s) Influenza No 0.5 mL, Memor ia Virus 3 Route: IM, l Vaccine, 15:00: Drug Form: Her stone Inactivated 00 SUSP, A-[place]- Daily, Start (H3N2)-like date: virus 11/26/13 (A-[place]- 9:00:00, Stop date: [facility] [place] [id number]) 23:59:00(S strain / elida as: Influenza Fluzone Virus Quadrivale Vaccine, nt) Inactivated A-[place]- -2006, IVR-148 (H1N1) strain / Influenza Virus Vaccine, Inactivated , B-[place]--lik Saline No 5 ml, Memoria Flush 0.9% 11-26 Route: l 15:00: IVP, Drug [place] 00 Form: INJ, Dosing Weight 84.545, kg, Q12H, Start date: 11/26/13 9:00:00, Duration: 30 day, Stop date: 12/25/13 21:00:00(S elida as: BD Posiflush) Labetalol No 200 mg, 1 Mem oria 3-06 tab, l 15:00: Route: PO, [place] 00 Drug form: TAB, Q12H, Dosing Weight 84.545, kg, Start date: 11/26/13 9:00:00, Duration: 30 day, Stop date: 12/25/13 21:00:00Wi th food. (Same as:Trandat e, Normodyne) Docusate 0 No 100 mg, 10 Mem oria 3-06 mL, Route: l 15:00: PO, Drug form: LIQ, Q12H, Dosing Weight 84.545, kg, Start date: 11/26/13 9:00:00, Duration: 30 day, Stop date: 12/25/13 21:00:00(S elida as: Colace) Acetaminoph No 650 mg, Mem oria en 3-06 20.3 mL, l 14:13: Route: PO, Drug form: LIQ, Q4H, Dosing Weight 84.545, kg, PRN Pain 1-3/Temp > 99.5 F, Start date: 11/26/13 8:13:00, Duration: 30 day, Stop date: 12/26/13 8:12:00Max acetaminop hen = 4000mg/day (4 gm/day). (Same as: Tylenol) Saline No 5 ml, Memoria Flush 0.9% 06 Route: l 14:13: IVP, Drug Form: INJ, Dosing Weight 84.545, kg, PRN, PRN Line Flush, Start date: 11/26/13 8:13:00, Duration: 30 day, Stop date: 12/26/13 9:12:00([facility] as: BD Posiflush) Bisacodyl No 10 mg, 1 Jose Luis dennis 3-06 supp, l 14:13: Route: IN, Drug form: SUPP, Q24H, Dosing Weight 84.545, kg, PRN Constipati on, Start date: 11/26/13 8:13:00, Duration: 30 day, Stop date: 12/26/13 8:12:00(Sa me As: Dulcolax, Bisco-Lax) Nicardipine No 40 mg, 200 Memoria 3-06 mL, Rate: l 14:13: Start at 5 mgTitrate to maintain SBP 110-150 mmHg., Dosing Weight 84.545, kg, Route: IV, Total Volume: 200, Start Date: 11/26/13 8:13:00, Duration: 30 day, Stop date: 12/26/13 8:12:00, Replace Every: 24 hrSame as: Cardene Concentrat ion: (0.2 mg /1 ml ) Labetalol 2013-0 No 10 mg, 2 Jose Luis dennis 3-06 mL, Route: l 14:13: IVP, Drug Srikanth 00 form: INJ, Q10Min, Dosing Weight 84.545, kg, PRN Hypertensi on, For SBP > 150mmHg, Start date: 11/26/13 8:13:00, Duration: 3 doses or times, Stop date: Limited # of times Sodium 2013-0 No 1,000 mL, Memori a Chloride 3-06 Rate: 75 l 0.154 14:13: ml/hr, Srikanth MEQ/ML 00 Infuse Injectable over: 13.3 Solution hr, Route: IV, Dosing Weight 84.545 kg, Total Volume: 1,000, Start date: 11/26/13 8:13:00, Duration: 30 day, Stop date: 12/26/13 8:12:00 Dextrose 2013-0 No 12.5 gm, Memor ia 50% Syringe 306 25 mL, l 13:31: Route: [place] 00 IVP, Drug Form: INJ, Dosing Weight 78.182, kg, PRN, PRN Abnormal Lab Result, Start date: 11/26/13 7:31:00, Duration: 30 day, Stop date: 12/26/13 8:30:00 Regular 2013-0 No 5 unit, Memoria Insulin, 3-06 0.05 mL, l Human 100 13:31: Route: Gerardo n UNT/ML 00 SUB-Q, Injectable Drug form: Solution SOLN, PRN, Dosing Weight 78.182, kg, PRN Abnormal Lab Result, Start date: 11/26/13 7:31:00, Duration: 30 day, Stop date: 12/26/13 8:30:00 60 units) Stable for 28 days at room temper[place] e Expires in days from ____Date Immunizations Ordered Filled Immunization Date Status Comments [facility] e Immunization Name Name SARS-COV-2 COVID-19 2021-11-23 Completed [facility] of [employer] WILL-SUCROSE 00:00:00 [place] VACCINE (HANDLEY TOP) Branch SARS-COV-2 COVID-19 2021-11-23 Completed [facility] WILL-SUCROSE 00:00:00 [facility] VACCINE (HANDLEY TOP) [facility] SARS-COV-2 COVID-19 2021-11-23 Completed [facility] of PFIZER WILL-SUCROSE 00:00:00 [facility] VACCINE (HANDLEY TOP) Branch Influenza Virus 2021-08-23 Completed [facility] of Vaccine [facility] .5 mL 00:00:00 [facility] IM 6+ MO [facility] Influenza Virus 2021-08-23 Completed [facility] Vaccine [facility] .5 mL 00:00:00 [facility] IM 6+ MO [facility] Influenza Virus 2021-08-23 Completed [facility] Vaccine [facility] .5 mL 00:00:00 [facility] IM 6+ MO [facility] SARS-COV-2 COVID-19 2020-12-30 Completed [facility] of PFIZER VACCINE 00:00:00 [facility] SARS-COV-2 COVID-19 2020-12-30 Completed [facility]ive rs[facility] of PFIZER VACCINE 00:00:00 [facility] SARS-COV-2 COVID-19 2020-12-30 Completed [facility] rs[facility] of PFIZER VACCINE 00:00:00 [facility] SARS-COV-2 COVID-19 2020-12-30 Completed [facility] of PFIZER VACCINE 00:00:00 [facility] SARS-COV-2 COVID-19 2020-12-30 Completed [facility] rs[facility] of PFIZER VACCINE 00:00:00 [facility] SARS-COV-2 COVID-19 2020-12-30 Completed [facility] of PFIZER VACCINE 00:00:00 [facility] SARS-COV-2 COVID-19 2020-12-07 Completed [facility] PFIZER VACCINE 00:[facility]:00 [facility] [facility] SARS-COV-2 COVID-19 2020-12-07 Completed Unive rsity of PFIZER VACCINE 00:00:00 [facility] SARS-COV-2 COVID-19 2020-12-07 Completed Unive rsity of PFIZER VACCINE 00:00:00 [facility] SARS-COV-2 COVID-19 2020-12-07 Completed Unive rsity of PFIZER VACCINE 00:00:00 [facility] SARS-COV-2 COVID-19 2020-12-07 Completed Unive rsity of PFIZER VACCINE 00:00:00 [facility] SARS-COV-2 COVID-19 2020-12-07 Completed Unive rsity of PFIZER VACCINE 00:00:00 [facility] Influenza Virus 2020-08-16 Completed Universit y of Vaccine Quad .5 mL 00:00:00 [facility] 6+ [place] Influenza Virus 2020-08-16 Completed Universit y of Vaccine Quad .5 mL 00:00:00 [facility] 6+ [place] Influenza Virus 2020-08-16 Completed Universit y of Vaccine Quad .5 mL 00:00:00 [facility] IM 6+ [place] Influenza Virus 2019-07-01 Completed Universit y of Vaccine Quad .5 mL 00:00:00 [facility] 6+ [place] Influenza Virus 2019-07-01 Completed Universit y of Vaccine Quad .5 mL 00:00:00 [facility] 6+ [place] Influenza Virus 2019-07-01 Completed Universit y of Vaccine Quad .5 mL 00:00:00 [facility] 6+ [place] Influenza Virus 2018-08-22 Completed Universit y of Vaccine Quad IM 3+ 00:00:00 [facility] Influenza Virus 2018-08-22 Completed Universit y of Vaccine Quad IM 3+ 00:00:00 [facility] Influenza Virus 2018-08-22 Completed Universit y of Vaccine Quad IM 3+ 00:00:00 [facility] Pneumococcal 13 2017-11-23 Completed Universit y of Conjugate, PCV13 00:00:00 [facility] dical (Prevnar 13) Branch Pneumococcal 13 2017-11-23 Completed Universit y of Conjugate, PCV13 00:00:00 [facility] dical (Prevnar 13) Branch Pneumococcal 13 2017-11-23 Completed Universit y of Conjugate, PCV13 00:00:00 [facility] dical (Prevnar 13) Branch pneumococcal 2013-11-30 Completed [facility] 23-valent vaccine 22:02:00 Pneumococcal 2013-11-30 Completed University o f Polysaccharide, 00:00:00 [facility] ical PPSV23 (PNEUMOVAX) Branch Pneumococcal 2013-11-30 Completed University o f Polysaccharide, 00:00:00 [facility] ical PPSV23 (PNEUMOVAX) Branch Pneumococcal 2013-11-30 Completed University o f Polysaccharide, 00:00:00 [facility] ical PPSV23 (PNEUMOVAX) Branch influenza virus 2013-11-26 Completed [facility] vaccine, 23:20:00 inactivated Influenza Virus 2013-11-26 Completed Universit y of Vaccine 00:00:00 [facility] Influenza Virus 2013-11-26 Completed Universit y of Vaccine 00:00:00 [facility] Influenza Virus 2013-11-26 Completed Universit y of Vaccine 00:00:00 [facility] Vital Signs Vital Name Observation Time Observation Value Comments Source Systolic blood 2022-05-18 131 mm[Hg] University of pressure 21:19:00 [facility] Diastolic blood 2022-05-18 90 mm[Hg] University o f pressure 21:19:00 [facility] Heart rate 2022-05-18 79 /min [facility] 21:18:00 [facility] Respiratory rate 2022-05-18 18 /min [facility] 21:18:00 [facility] Body height 2022-05-18 147.3 cm [facility] 21:18:00 [facility] Body weight 2022-05-18 72.122 kg [facility] 21:18:00 [facility] BMI 2022-05-18 33.23 kg/m2 [facility] 21:18:00 [facility] Oxygen saturation 2022-05-18 95 /min [facility] in Arterial blood 21:18:00 [facility] Pulse oximetry Branch BP Systolic 2018-02-03 108 mm[Hg] Location: [place]; [facility] 08:49:00 Position: Sitting BP Diastolic 2018-02-03 77 mm[Hg] Location: [place]; [facility] 08:49:00 Position: Sitting Height 2018-02-03 57 [in_us] [facility] 08:49:00 Weight 2018-02-03 160.2 [lb_av] [facility] 08:49:00 Body Mass Index 2018-02-03 34.67 kg/m2 [facility] Calculated 08:49:00 Heart Rate 2018-02-03 81 /min Location: L [facility] 08:49:00 Brachial Artery; BP Systolic 2017-12-30 102 mm[Hg] Location: [place]; [facility] 11:33:00 Position: Sitting BP Diastolic 2017-12-30 69 mm[Hg] Location: [place]; [facility] 11:33:00 Position: Sitting Height 2017-12-30 57 [in_us] [facility] 11:33:00 Weight 2017-12-30 161 [lb_av] [facility] 11:33:00 Body Mass Index 2017-12-30 34.84 kg/m2 [facility] Calculated 11:33:00 Heart Rate 2017-12-30 83 /min Location: L [facility] 11:33:00 Brachial Artery; BP Systolic 2017-11-04 113 mm[Hg] Location: R[facility]; [facility] 10:10:00 Position: Sitting BP Diastolic 2017-11-04 76 mm[Hg] Location: [facility]; [facility] 10:10:00 Position: Sitting Height 2017-11-04 57 [in_us] [facility] 10:10:00 Weight 2017-11-04 165 [lb_av] [facility] 10:10:00 Body Mass Index 2017-11-04 35.71 kg/m2 [facility] Calculated 10:10:00 Heart Rate 2017-11-04 80 /min Location: R [facility] 10:10:00 Brachial Artery; BP Systolic 2017-07-29 119 mm[Hg] Location: L[facility]; [facility] 10:30:00 Position: Sitting BP Diastolic 2017-07-29 79 mm[Hg] Location: [facility]; [facility] 10:30:00 Position: Sitting Height 2017-07-29 57 [in_us] [facility] 10:30:00 Weight 2017-07-29 166 [lb_av] [facility] 10:30:00 Body Mass Index 2017-07-29 35.92 kg/m2 [facility] Calculated 10:30:00 Heart Rate 2017-07-29 88 /min Location: L [facility] 10:30:00 Brachial Artery; Respitory Rate 2017-01-05 [facility] Herm tee 11:25:00 Systolic (mm Hg) 2017-01-05 [facility] rmann 11:25:00 Diastolic (mm Hg) 2017-01-05 [facility] H ermann 11:25:00 Temperature Oral 2017-01-05 97.8 F [facility] He rmann (F) 11:25:00 Respitory Rate 2017-01-05 [facility] 09:56:00 Systolic (mm Hg) 2017-01-05 [facility] 09:56:00 Diastolic (mm Hg) 2017-01-05 [facility] H ermann 09:56:00 Temperature Oral 2017-01-05 97.6 F [facility] rmann (F) 09:56:00 Systolic (mm Hg) 2017-01-05 [facility] rmann 08:16:00 Diastolic (mm Hg) 2017-01-05 [facility] 08:16:00 Respitory Rate 2017-01-05 [facility] 08:16:00 Temperature Oral 2017-01-05 97.8 F [facility] (F) 06:33:00 BMI Calculated 2017-01-05 [facility] 06:33:00 Weight 2017-01-05 [facility] n 06:33:00 Height 2017-01-05 144.78 cm [facility] 06:33:00 Heart Rate 2017-01-05 [facility] 06:33:00 Weight 2014-03-21 [facility] 03:18:00 Height 2014-03-21 149.86 cm [facility] 03:18:00 BMI Calculated 2014-03-21 [facility] 03:18:00 Temperature Oral 2014-03-21 97.8 F [facility] (F) 03:18:00 Heart Rate 2014-03-21 [facility] 03:18:00 Diastolic (mm Hg) 2014-03-21 [facility] 03:18:00 Respitory Rate 2014-03-21 [facility] 03:18:00 Systolic (mm Hg) 2014-03-21 [facility] 03:18:00 Systolic (mm Hg) 2014-03-19 [facility] 13:00:00 Respitory Rate 2014-03-19 [facility] 13:00:00 Diastolic (mm Hg) 2014-03-19 [facility] 13:00:00 Temperature Oral 2014-03-19 97.9 F [facility] (F) 13:00:00 Heart Rate 2014-03-19 [facility] 13:00:00 Respitory Rate 2014-03-19 [facility] 08:54:00 Systolic (mm Hg) 2014-03-19 [facility] 08:54:00 Temperature Oral 2014-03-19 98.0 F [facility] (F) 08:54:00 Heart Rate 2014-03-19 [facility] 08:54:00 Diastolic (mm Hg) 2014-03-19 [facility] 08:54:00 Diastolic (mm Hg) 2014-03-19 [facility] 04:44:00 Systolic (mm Hg) 2014-03-19 [facility] 04:44:00 Temperature Oral 2014-03-19 97.3 F [facility] (F) 04:44:00 Respitory Rate 2014-03-19 [facility] 04:44:00 Heart Rate 2014-03-19 [facility] 04:44:00 Weight 2014-03-18 [facility] 18:31:00 Height 2014-03-18 149.86 cm [facility] 18:31:00 BMI Calculated 2014-03-18 [facility] 18:31:00 Weight 2014-03-18 [facility] 02:02:00 BMI Calculated 2014-03-18 [facility] 02:02:00 Height 2014-03-18 149.86 cm [facility] 02:02:00 Diastolic (mm Hg) 2014-01-01 [facility] 17:57:00 Heart Rate 2014-01-01 [facility] 17:57:00 Systolic (mm Hg) 2014-01-01 [facility] 17:57:00 Respitory Rate 2014-01-01 [facility] 17:57:00 Temperature Oral 2014-01-01 98.4 F [facility] He rmann (F) 17:57:00 Diastolic (mm Hg) 2014-01-01 [facility] 12:31:00 Systolic (mm Hg) 2014-01-01 [facility] 12:31:00 Heart Rate 2014-01-01 [facility] 12:31:00 Respitory Rate 2014-01-01 [facility] 10:55:00 Temperature Oral 2014-01-01 98.8 F [facility] He rmann (F) 10:55:00 Systolic (mm Hg) 2014-01-01 [facility] He rmann 10:55:00 Diastolic (mm Hg) 2014-01-01 [facility] 10:55:00 Heart Rate 2014-01-01 [facility] 10:55:00 Respitory Rate 2014-01-01 [facility] 03:47:00 Temperature Oral 2014-01-01 98.4 F [facility] He rmann (F) 03:47:00 Height 2013-12-01 147.32 cm [facility] 00:06:00 BMI Calculated 2013-12-01 [facility] 00:06:00 Weight 2013-12-01 [facility] 00:06:00 Systolic (mm Hg) 2013-11-30 [facility] 20:32:00 Heart Rate 2013-11-30 [facility] 20:32:00 Respitory Rate 2013-11-30 [facility] 20:32:00 Temperature Oral 2013-11-30 98.0 F Trevor Esposito rmann (F) 20:32:00 Diastolic (mm Hg) 2013-11-30 [facility] Navjot ermann 20:32:00 Respitory Rate 2013-11-30 [facility] 17:01:00 Diastolic (mm Hg) 2013-11-30 [facility] 17:01:00 Temperature Oral 2013-11-30 98.0 F Trevor Esposito rmann (F) 17:01:00 Heart Rate 2013-11-30 [facility] 17:01:00 Systolic (mm Hg) 2013-11-30 [facility] 17:01:00 Respitory Rate 2013-11-30 [facility] 13:37:00 Diastolic (mm Hg) 2013-11-30 [facility] 13:37:00 Systolic (mm Hg) 2013-11-30 [facility] Vaibhav rmann 13:37:00 Heart Rate 2013-11-30 Trevor Vallejoan n 13:37:00 Temperature Oral 2013-11-30 97.3 F Trevor Esposito rmann (F) 13:37:00 Weight 2013-11-26 [facility] n 13:48:00 Height 2013-11-26 147.32 cm Trevor Vallejoan n 13:48:00 BMI Calculated 2013-11-26 [facility] 13:48:00 Procedures Procedure Date / Time Performed Performing Clinician [facility] e CT ABDOMEN PELVIS WO 2022-05-29 13:16:24 Mann Perdomo [facility] [[facility]] Toxin - Botox 2017-12-04 00:00:00 [facility] [[facility]] Toxin - Botox 2017-11-04 00:00:00 [facility] section [facility] Gerardo n Eye operation [facility] [place] Plan of Care Planned Activity Planned Date Details Comments Source Diagnostic Test Pending 2017-12-23 00:00:00 [[facility]] Toxin - Botox [facility] [code = [UTP] Toxin - Botox] Encounters Start End Encounter Admission Attending Care Care Encounter Source Date/Time Date/Time Type Type Clinicians Facility Department ID 2022-06-05 Outpatient [facility] [id number] [place] 08:43:28 [id number] [facility] 2022-06-01 Outpatient [facility] [id number] [place] 15:05:40 [id number] [facility] 2022-07-18 2022-07-18 Outpatient CHIDI [facility] [id number] [place] 09:00:00 09:00:00 [facility] 2022-06-12 2022-06-12 Outpatient Dg MATHIS [facility] [id number] Univers 16:00:00 16:00:00 LAKESHIA [id number] [facility] 2022-06-05 2022-06-05 Outpatient CHIDI [facility] [id number] [place] 13:00:00 13:00:00 [facility] 2022-05-29 2022-05-29 Outpatient R MANN PERDOMO [facility] [id number] [facility] 07:46:51 23:59:00 MANN PERDOMO [facility] 2022-05-29 2022-05-29 [facility] [id number] Univers 07:46:51 23:59:00 Encounter Mann ROBERTSON [id number] ity of [place] [id number] [facility] s [place] [id number] [address] 2022-05-18 2022-05-18 [facility] [id number] [facility] 16:20:00 17:41:58 Visit Lakeshia ROBERTSON [id number] ity [place] 4.2.7.2.686 [facility] PROF[facility] [id number] [address] 2022-05-18 2022-05-18 Outpatient R DEL [facility] [id number] [facility] 16:20:00 17:41:58 LAKESHIA [facility] 2020-08-29 2020-08-29 Telephone Saleem [facility] [id number] 00:00:00 00:00:00 Lester Robertson [id number] [place] [id number] Professio [id number] [address] 2020-08-24 2020-08-24 Entry 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 2020-08-16 2020-08-16 Office Del, [facility] [id number] 13:06:10 14:31:10 Visit Lakeshia Robertson [id number] [place] [id number] Professio [id number] [facility] [address] [facility] 2018-02-03 2018-02-03 Appointvanesa CASTILLO [facility] Neurology [id number] [place] 09:00:00 09:00:00 t; Rakel LIMON M.D. ans JEFFREY, M.D. 2017-12-30 2017-12-30 Ashley CASTILLO [facility] Neurology [id number] [place] 11:30:00 11:30:00 t; [place] Physi Phil Garcia M.D. 2017-12-23 2017-12-23 Ashley CASTILLO, [facility] [id number] [place] 11:30:00 11:30:00 t; [place] Physi Phil Garcia M.D. 2017-11-04 2017-11-04 Ashley CASTILLO, [facility] Neurology [id number] [place] 10:00:00 10:00:00 t; [place] Physi Phil Garcia M.D. 2017-10-28 2017-10-28 Ashley CASTILLO, [facility] [id number] [place] 10:00:00 10:00:00 t; [place] Physi Phil Garcia M.D. 2017-10-15 2017-10-15 Appointvanesa MURILLO [facility] [id number] [place] 11:30:00 11:30:00 t; ROBSON MURILLO NP Physici ROBSON, juan a TORRES 2017-09-11 2017-09-11 Appointvanesa MURILLO, [facility] [id number] [place] 09:30:00 09:30:00 t; ROBSON MURILLO NP Physici ROBSON, ans MANAGER SALT 2017-09-10 2017-09-10 Appointmen CHIDI, UTP UTP [id number] [place] 09:30:00 09:30:00 t; ROBSON MURILLO, MANAGER SALT Physici MUNFABIOLA, ans MANAGER SALT 2017-09-09 2017-09-09 Appointvanesa CASTILLO, UTP UTP [id number] [place] 10:00:00 10:00:00 t; [place] Physi Phil Garcia M.D. 2017-07-29 2017-07-29 Appointvanesa CASTILLO, UTP UTP [id number] [place] 11:30:00 11:30:00 t; [place] Physi Phil Garcia M.D. 2017-07-22 2017-07-22 Appointvanesa CASTILLO, UTP UTP [id number] [place] 11:30:00 11:30:00 t; [place] Physi Phil Garcia M.D. 2017-06-24 2017-06-24 Appointvanesa CASTILLO, LUCIAN UTP [id number] [place] 14:00:00 14:00:00 t; [place] Physi Phil Garcia M.D. 2017-06-14 2017-06-15 Outpt Diag nullFlavo [facility] [id number] Memoria 17:20:00 04:59:00 Services r Outpatient 00 l [facility] 2017-06-14 2017-06-14 Outpatient Chidi [facility] [id number] 12:20:00 23:59:00 [place] 00 Nkiru 2017-06-14 2017-06-14 Appointmen CHIDI, UTP UTP [id number] [place] 10:00:00 10:00:00 t; ROBSON MURILLO, MANAGER SALT Physici ROBSON, ans MANAGER SALT 2017-03-15 2017-03-15 Appointmen CHIDI, UTP UTP [id number] [place] 10:30:00 10:30:00 t; ROBSON MURILLO, MANAGER SALT Physici ROBSON, ans MANAGER SALT 2017-01-05 2017-01-05 Emergency nullFlavo [facility] [id number] Memoria 06:29:00 11:27:00 r [place] 05 [facility] 2017-01-05 2017-01-05 Outpatient Kermit [facility] [id number] 01:29:00 06:27:00 Rahul Limon 2014-03-21 2014-03-21 nullFlavo [facility] [id number] Memoria 02:06:00 06:23:00 Emergency r [place] 01 [facility] 2014-03-20 2014-03-21 Outpatient Ramesh, 2.16.840. [id number] 21:06:00 01:23:00 Smooth [id number] Tima 3.615.0.1 [id number] 31 1991-06-26 2014-03-19 OBS nullFlavo [facility] [id number] Memoria 01:46:00 17:05:00 Observatio r Srikanth 00 l n Patient [facility] 2014-03-17 2014-03-19 Outpatient Gustavo, 2.16.840. [id number]. [id number] 20:46:00 12:05:00 Yana [id number] Zaida 3.615.0.1 5.0.500 20 0408-03-10 2014-01-01 Inpatient nullFlavo [facility] [id number] Memoria 23:52:00 18:40:00 Rehab r [place] 66 [facility] 2013-11-30 2014-01-01 Outpatient Barbra, 2.16.840. 2.16.840.1. [id number] 18:52:00 13:40:00 Rebecca [id number] 66 [facility] 3.615.0.1 5.0.829 09 1766-03-06 2013-11-30 Inpatient nullFlavo [facility] [id number] Memoria 12:38:00 23:23:00 r Srikanth [id number] [address] 2013-11-26 2013-11-30 Outpatient Sharrief, 2.16.840. 2.16.840.1. [id number] 06:38:00 18:23:00 Anjail [id number] Jodi 3.615.0.1 5.0.101 01 Results Test Description Test Time Test Comments Results Result Comments Source HEMATOLOGY 2017-01-05 09:54:30 Test Item Value Reference Range Interpretation Comme nts Sed Rate (test code = Sed 28 See_Comment [ Automated message] The system which Rate) generated this result transmitted reference range : <=20. The reference range was not u sed to interpret this result as dequan l/abnormal. [facility] [id number] 09:54:30 Test Item Value Reference Range Interpretation Comments C-REACTIVE PROTEIN (test code = 6.7 C-REACTIVE PROTEIN) [facility] AND [id number] 09:19:56 Test Item Value Reference Range Interpretation Comments UA Spec Grav (test code = UA Spec 1.010 1 Grav) [facility] AND [id number] 09:19:56 Test Item Value Reference Range Interpretation Comments UA Protein (test code = UA Negative mg/dL Protein) [facility] [id number] 09:19:56 Test Item Value Reference Range Interpretation Comments UA pH (test code = UA pH) 6.0 1 5.0-8.0 [facility] [id number] 09:19:56 Test Item Value Reference Range Interpretation Comments UA Ketones (test code = UA Negative mg/dL Ketones) [facility] [id number] 09:19:56 Test Item Value Reference Range Interpretation Comments UA Glucose (test code = UA Negative mg/dL Glucose) [facility] AND [id number] 09:19:56 Test Item Value Reference Range Interpretation Comments UA Bili (test code = Negative *NA*(01/05/17 UA Bili) 4:19 AM) [facility] [id number] 09:19:56 Test Item Value Reference Range Interpretation Comments UA Color (test code = Yellow *NA*(01/05/17 UA Color) 4:19 AM) [facility] [id number] 09:19:56 Test Item Value Reference Range Interpretation Comments UA Turbidity (test code = Clear (01/05/17 4:19 UA Turbidity) AM) [facility] [id number] 09:19:56 Test Item Value Reference Range Interpretation Comments UA Urobilinogen (test code = UA 0.2 0.1-1.0 Urobilinogen) [facility] AND [id number] 09:19:56 Test Item Value Reference Range Interpretation Comments UA Blood (test code = Negative (01/05/17 4:19 UA Blood) AM) [facility] AND [id number] 09:19:56 Test Item Value Reference Range Interpretation Comments UA Leuk Est (test Negative (01/05/17 4:19 code = UA Leuk Est) AM) [facility] AND [id number] 09:19:56 Test Item Value Reference Range Interpretation Comments UA Nitrite (test code Negative (01/05/17 4:19 = UA Nitrite) AM) [facility] AND [id number] 09:19:56 Test Item Value Reference Range Interpretation Comments UA WBC (test code = UA WBC) 0-2 /HPF [facility] AND [id number] 09:19:56 Test Item Value Reference Range Interpretation Comments UA Sq Epi (test code = UA Sq Epi) Few /LPF [facility] AND [id number] 09:19:56 Test Item Value Reference Range Interpretation Comments UA Bacteria (test code = UA Occasional /HPF Bacteria) [facility] AND [id number] 09:19:56 Test Item Value Reference Range Interpretation Comments UA RBC (test code = 0-2 /HPF See_Comment [Automa blayne message] The UA RBC) system which ge nerated this result tra nsmitted reference range : <=2. The reference range was not used to interpr et this result as dequan l/abnormal. [facility] AND [id number] 09:19:56 Test Item Value Reference Range Interpretation Comments UA Mucus (test code = UA Mucus) Few /LPF [facility] [id number] 06:57:00 Test Item Value Reference Range Interpretation Comments eGFR (test code = eGFR) 78 [facility] [id number] 06:57:00 Test Item Value Reference Range Interpretation Comments Calcium Lvl (test code = Calcium Lvl) 9.1 8.5-10.5 [facility]2017-04-15 06:57:00 Test Item Value Reference Range Interpretation Comments AGAP (test code = AGAP) 11.2 10.0-20.0 [facility]2017-04-15 06:57:00 Test Item Value Reference Range Interpretation Comments CO2 (test code = CO2) 30 24-32 [place] [id number] 06:57:00 Test Item Value Reference Range Interpretation Comments Chloride Lvl (test code = Chloride Lvl) 103 95-109 [facility]2017-04-15 06:57:00 Test Item Value Reference Range Interpretation Comments Potassium Lvl (test code = Potassium 4.2 3.5-5.1 Lvl) [facility]2017-04-15 06:57:00 Test Item Value Reference Range Interpretation Comments Sodium Lvl (test code = Sodium Lvl) 140 135-145 [facility]2017-04-15 06:57:00 Test Item Value Reference Range Interpretation Comments Creatinine Lvl (test code = Creatinine 0.87 0.50-1.40 Lvl) [place] [id number] 06:57:00 Test Item Value Reference Range Interpretation Comments BUN (test code = BUN) 18 7-22 [place] [id number] 06:57:00 Test Item Value Reference Range Interpretation Comments Glucose Lvl (test code = Glucose Lvl) 128 70-99 [id number] 06:57:00 Test Item Value Reference Range Interpretation Comments Monocytes # (test code 0.6 See_Comment [Aut omated message] The = Monocytes #) system which generated this result tra nsmitted reference range : <=0.8. The reference r celio was not used to int erpret this result as normal/abnormal . [facility] [id number] 06:57:00 Test Item Value Reference Range Interpretation Comments Eosinophils # (test code 0.2 See_Comment [A utomated message] The = Eosinophils #) system whic h generated this result tra nsmitted reference range : <=0.5. The reference r celio was not used to int erpret this result as normal/abnormal . [facility] [id number] 06:57:00 Test Item Value Reference Range Interpretation Comments Basophils # (test code 0.1 See_Comment [Aut omated message] The = Basophils #) system which generated this result tra nsmitted reference range : <=0.2. The reference r celio was not used to int erpret this result as normal/abnormal . [facility] CenterRgpbwcxKNEUQYCKHX5488-46-37 06:57:00 Test Item Value Reference Range Interpretation Comments Eosinophils (test code = 2.4 See_Comment [A utomated message] The Eosinophils) system which ge nerated this result tra nsmitted reference range : <=4.0. The reference r celio was not used to int erpret this result as normal/abnormal . [facility] CenterKivdspaNUSFKNVNBS0279-17-78 06:57:00 Test Item Value Reference Range Interpretation Comments Basophils (test code = 0.6 See_Comment [Aut omated message] The Basophils) system which ge nerated this result tra nsmitted reference range : <=1.0. The reference r celio was not used to int erpret this result as normal/abnormal . [facility] CenterUeazapvLCWUOIHUYF9678-17-19 06:57:00 Test Item Value Reference Range Interpretation Comments Segs-Bands # (test code = Segs-Bands #) 5.3 1.5-8.1 [facility] CenterYpcgxqdZNRBVDTGIP2878-95-98 06:57:00 Test Item Value Reference Range Interpretation Comments Segs (test code = Segs) 55.9 45.0-75.0 [facility] CenterUlbqfcxKCFCIKTLQK2299-68-06 06:57:00 Test Item Value Reference Range Interpretation Comments Lymphocytes (test code = Lymphocytes) 34.3 20.0-40.0 [facility] CenterNznjhwzIZROYISWDC4835-76-93 06:57:00 Test Item Value Reference Range Interpretation Comments Monocytes (test code = Monocytes) 6.8 2.0-12.0 [facility] CenterSvsejmsOIQKZRTXGO6667-88-19 06:57:00 Test Item Value Reference Range Interpretation Comments Lymphocytes # (test code = Lymphocytes 3.2 1.0-5.5 #) [facility] CenterYngbvwqXYQDMAMKCM5550-34-50 06:57:00 Test Item Value Reference Range Interpretation Comments Hct (test code = Hct) 40.3 36.0-48.0 [facility] CenterDdskznyXHTSFHGGPL1346-16-63 06:57:00 Test Item Value Reference Range Interpretation Comments Hgb (test code = Hgb) 14.2 12.0-16.0 [facility] CenterGjromypTOKALCMAVW3520-86-52 06:57:00 Test Item Value Reference Range Interpretation Comments RBC (test code = RBC) 4.54 4.20-5.40 [facility] CenterQdusmdcNPOAVWFRWK9249-32-32 06:57:00 Test Item Value Reference Range Interpretation Comments WBC (test code = WBC) 9.4 3.7-10.4 [facility] CenterSdcncaqFMFZBWPFXM7594-55-24 06:57:00 Test Item Value Reference Range Interpretation Comments MCV (test code = MCV) 88.6 80.0-98.0 [facility] CenterRflurtkESVETYTWEZ2888-51-87 06:57:00 Test Item Value Reference Range Interpretation Comments MCH (test code = MCH) 31.3 pg 27.0-31.0 [facility] CenterQsbkewtJEJFSULHIQ9985-27-97 06:57:00 Test Item Value Reference Range Interpretation Comments MPV (test code = MPV) 7.4 7.4-10.4 [facility] CenterNarhyqoHIJDNLLATO8934-04-19 06:57:00 Test Item Value Reference Range Interpretation Comments Platelet (test code = Platelet) 295 133-450 [facility] CenterNgbdpwfZLNHFOBXSI0642-38-87 06:57:00 Test Item Value Reference Range Interpretation Comments RDW (test code = RDW) 13.7 11.5-14.5 [facility] CenterOslkvojXNYSXXGKQS2154-98-24 06:57:00 Test Item Value Reference Range Interpretation Comments MCHC (test code = MCHC) 35.3 32.0-36.0 [facility] AND [id number] 13:57:55 Test Item Value Reference Range Interpretation Comments UA Spec Grav (test code = UA Spec 1.015 1 Grav) [facility] AND [id number] 13:57:55 Test Item Value Reference Range Interpretation Comments UA pH (test code = UA pH) 6.0 1 5.0-8.0 [facility] AND [id number] 13:57:55 Test Item Value Reference Range Interpretation Comments UA Turbidity (test code = Clear (03/18/14 8:57 UA Turbidity) AM) [facility] AND [id number] 13:57:55 Test Item Value Reference Range Interpretation Comments UA Urobilinogen (test code = UA 0.2 0.1-1.0 Urobilinogen) [facility] AND [id number] 13:57:55 Test Item Value Reference Range Interpretation Comments UA Leuk Est (test Negative (03/18/14 8:57 code = UA Leuk Est) AM) [facility] AND [id number] 13:57:55 Test Item Value Reference Range Interpretation Comments UA Nitrite (test code Negative (03/18/14 8:57 = UA Nitrite) AM) [facility] AND [id number] 13:57:55 Test Item Value Reference Range Interpretation Comments UA Color (test code = Yellow *NA*(03/18/14 UA Color) 8:57 AM) [facility] AND [id number] 13:57:55 Test Item Value Reference Range Interpretation Comments UA Bili (test code = Negative *NA*(03/18/14 UA Bili) 8:57 AM) [facility] AND [id number] 13:57:55 Test Item Value Reference Range Interpretation Comments UA Ketones (test code = Trace *ABN*(03/18/14 UA Ketones) 8:57 AM) [facility] AND [id number] 13:57:55 Test Item Value Reference Range Interpretation Comments UA Blood (test code = Trace *ABN*(03/18/14 UA Blood) 8:57 AM) [facility] AND [id number] 13:57:55 Test Item Value Reference Range Interpretation Comments UA Glucose (test code Negative (03/18/14 8:57 = UA Glucose) AM) [facility] AND [id number] 13:57:55 Test Item Value Reference Range Interpretation Comments UA Protein (test code Negative (03/18/14 8:57 = UA Protein) AM) [facility] AND [id number] 13:57:55 Test Item Value Reference Range Interpretation Comments UA Sq Epi (test code = UA Sq Epi) Few /LPF [facility] AND [id number] 13:57:55 Test Item Value Reference Range Interpretation Comments UA RBC (test code = 0-2 /HPF See_Comment [Automa blayne message] The UA RBC) system which ge nerated this result tra nsmitted reference range : <=2. The reference range was not used to interpr et this result as dequan l/abnormal. [facility] AND [id number] 13:57:55 Test Item Value Reference Range Interpretation Comments UA WBC (test code = UA WBC) 0-2 /HPF [facility] AND [id number] 13:57:55 Test Item Value Reference Range Interpretation Comments UA Mucus (test code = None Seen (03/18/14 UA Mucus) 8:57 AM) [facility] AND [id number] 13:57:55 Test Item Value Reference Range Interpretation Comments UA Bacteria (test code = UA Moderate /HPF Bacteria) [facility]Jx[facility]ngIBZDXO5685-43-98 11:20:00 Test Item Value Reference Range Interpretation Comments CHD Risk (test code = CHD Risk) 4.39 3.90-5.80 [facility] HospitalCcroglsUTXCAS4789-10-27 11:20:00 Test Item Value Reference Range Interpretation Comments LDL (Calculated) (test code = LDL 120 (Calculated)) [facility] HospitalOwkupqsIISIHI9734-73-66 11:20:00 Test Item Value Reference Range Interpretation Comments Trig (test code = Trig) 145 [facility] CenterQfnwmfmYEJFUS6645-28-24 11:20:00 Test Item Value Reference Range Interpretation Comments Chol (test code = Chol) 193 [facility] HospitalLxeexioJDUACH4076-69-48 11:20:00 Test Item Value Reference Range Interpretation Comments HDL (test code = HDL) 44 [facility] HospitalTiteyhvPNKBFP9852-53-26 11:20:00 Test Item Value Reference Range Interpretation Comments VLDL (test code = VLDL) 29 [facility] QQULVOZPF4553-25-21 11:20:00 Test Item Value Reference Range Interpretation Comments Hgb A1C (test code = Hgb A1C) 4.9 [facility] HospitalCHEM [id number] 02:54:00 Test Item Value Reference Range Interpretation Comments eGFR (test code = eGFR) 87 [facility] [id number] 02:54:00 Test Item Value Reference Range Interpretation Comments POC Creatinine (test code = POC 0.8 0.5-1.4 Creatinine) [facility] [id number] 02:35:26 Test Item Value Reference Range Interpretation Comments eGFR (test code = eGFR) 87 [facility] [id number] 02:35:26 Test Item Value Reference Range Interpretation Comments Calcium Lvl (test code = Calcium Lvl) 10.0 8.5-10.5 [facility]2014-06-26 02:35:26 Test Item Value Reference Range Interpretation Comments Sodium Lvl (test code = Sodium Lvl) 140 135-145 [facility]2014-06-26 02:35:26 Test Item Value Reference Range Interpretation Comments Creatinine Lvl (test code = Creatinine 0.8 0.5-1.4 Lvl) [facility]2014-06-26 02:35:26 Test Item Value Reference Range Interpretation Comments Chloride Lvl (test code = Chloride Lvl) 103 95-109 [facility]2014-06-26 02:35:26 Test Item Value Reference Range Interpretation Comments Potassium Lvl (test code = Potassium 4.0 3.5-5.1 Lvl) [facility]2014-06-26 02:35:26 Test Item Value Reference Range Interpretation Comments CO2 (test code = CO2) 30 24-32 [facility]2014-06-26 02:35:26 Test Item Value Reference Range Interpretation Comments BUN (test code = BUN) 13 7-22 [facility]2014-06-26 02:35:26 Test Item Value Reference Range Interpretation Comments Glucose Lvl (test code = Glucose Lvl) 106 70-99 [facility]2014-06-26 02:35:26 Test Item Value Reference Range Interpretation Comments AGAP (test code = AGAP) 11.0 10.0-20.0 [facility] CenterCczhsrtUZLPZXYOZH2330-63-17 02:35:26 Test Item Value Reference Range Interpretation Comments Basophils (test code = 1.4 See_Comment [Aut omated message] The Basophils) system which ge nerated this result tra nsmitted reference range : <=1.0. The reference r celio was not used to int erpret this result as normal/abnormal . [facility] CenterQfchjtxWYLQNPGIOC2001-46-12 02:35:26 Test Item Value Reference Range Interpretation Comments Segs-Bands # (test code = Segs-Bands #) 5.3 1.5-8.1 [facility] CenterMlrzgolEVARHNTDTE6803-37-60 02:35:26 Test Item Value Reference Range Interpretation Comments Segs (test code = Segs) 54.6 45.0-75.0 [facility] CenterJokecymKBWAIAAJHV9090-80-54 02:35:26 Test Item Value Reference Range Interpretation Comments Eosinophils # (test code 0.2 See_Comment [A utomated message] The = Eosinophils #) system whic h generated this result tra nsmitted reference range : <=0.5. The reference r celio was not used to int erpret this result as normal/abnormal . [facility] CenterIbbthatVGJCMLXKCK3060-58-51 02:35:26 Test Item Value Reference Range Interpretation Comments Basophils # (test code 0.1 See_Comment [Aut omated message] The = Basophils #) system which generated this result tra nsmitted reference range : <=0.2. The reference r celio was not used to int erpret this result as normal/abnormal . [facility] CenterHmtlvfmOURGYVBCAM8932-22-33 02:35:26 Test Item Value Reference Range Interpretation Comments Lymphocytes # (test code = Lymphocytes 3.7 1.0-5.5 #) [facility] CenterPhgqpamNUZZEQOKVB2984-97-62 02:35:26 Test Item Value Reference Range Interpretation Comments Monocytes # (test code 0.4 See_Comment [Aut omated message] The = Monocytes #) system which generated this result tra nsmitted reference range : <=0.8. The reference r celio was not used to int erpret this result as normal/abnormal . [facility] CenterRzrjqorGTVOQHNTQD2739-41-70 02:35:26 Test Item Value Reference Range Interpretation Comments Monocytes (test code = Monocytes) 3.9 2.0-12.0 [facility] CenterAkpcafhNCPGZZBGTR3113-31-68 02:35:26 Test Item Value Reference Range Interpretation Comments Eosinophils (test code = 2.3 See_Comment [A utomated message] The Eosinophils) system which ge nerated this result tra nsmitted reference range : <=4.0. The reference r celio was not used to int erpret this result as normal/abnormal . [facility] CenterJkkxkfvMBHOLPPKDR1587-75-82 02:35:26 Test Item Value Reference Range Interpretation Comments Lymphocytes (test code = Lymphocytes) 37.8 20.0-40.0 [facility] CenterUajyvgyQFVDESVJBQ1334-20-93 02:35:26 Test Item Value Reference Range Interpretation Comments RBC (test code = RBC) 4.83 4.20-5.40 [facility] CenterMylnnylNGIEFVPZSO1954-03-42 02:35:26 Test Item Value Reference Range Interpretation Comments MPV (test code = MPV) 8.1 7.4-10.4 [facility]KyglqudAIJVWFSKSS8788-87-18 02:35:26 Test Item Value Reference Range Interpretation Comments Hgb (test code = Hgb) 14.7 12.0-16.0 [facility] CenterMauosrdIBFITWSAAZ1054-35-05 02:35:26 Test Item Value Reference Range Interpretation Comments MCV (test code = MCV) 89.2 81.0-99.0 [facility] CenterQsmtquwTQUSDCRAVP5903-34-07 02:35:26 Test Item Value Reference Range Interpretation Comments Hct (test code = Hct) 43.1 36.0-48.0 [facility] CenterTmmqiqmZWQUOLITHJ1466-34-85 02:35:26 Test Item Value Reference Range Interpretation Comments MCH (test code = MCH) 30.4 pg 27.0-31.0 [facility] CenterHhcurwzKPOLRXGFRZ4181-15-83 02:35:26 Test Item Value Reference Range Interpretation Comments WBC (test code = WBC) 9.7 3.7-10.4 [facility] CenterOqqnujkWSVRGBKIFF9658-74-46 02:35:26 Test Item Value Reference Range Interpretation Comments RDW (test code = RDW) 12.8 11.5-14.5 [facility] CenterTbrsokyKIVWUDMDOG8390-73-38 02:35:26 Test Item Value Reference Range Interpretation Comments Platelet (test code = Platelet) 372 133-450 [facility] CenterCjdkeiuOSCDLYPRNL2742-99-63 02:35:26 Test Item Value Reference Range Interpretation Comments MCHC (test code = MCHC) 34.0 32.0-36.0 [facility] CenterOrizaooGWTEDSMKLX9497-47-37 02:35:26 Test Item Value Reference Range Interpretation Comments PT (test code = PT) 12.2 s 12.0-14.7 [facility] CenterVecwgciNUTYXALRTX9923-44-32 02:35:26 Test Item Value Reference Range Interpretation Comments INR (test code = INR) 0.91 0.85-1.17 [facility] HospitalRowbehaZAOJPBXDCY1286-78-28 02:35:26 Test Item Value Reference Range Interpretation Comments PTT (test code = PTT) 30.2 s 22.9-35.8 [facility] AND [id number] 19:39:00 Test Item Value Reference Range Interpretation Comments UA Urobilinogen (test code = UA <=1.0 mg/dL 0.1-1.0 Urobilinogen) [facility] AND [id number] 19:39:00 Test Item Value Reference Range Interpretation Comments UA Mucus (test code = UA Mucus) Few /LPF [facility] AND [id number] 19:39:00 Test Item Value Reference Range Interpretation Comments UA Bacteria (test code = UA Occasional /HPF Bacteria) [facility] AND [id number] 19:39:00 Test Item Value Reference Range Interpretation Comments UA Sq Epi (test code = UA Sq Epi) Few /LPF [facility] AND [id number] 19:39:00 Test Item Value Reference Range Interpretation Comments UA WBC (test code = 2 See_Comment [Automa blayne message] The UA WBC) system which ge nerated this result transmit blayne reference range : <=5. The reference range was not used to interpr et this result as dequan l/abnormal. [facility] AND [id number] 19:39:00 Test Item Value Reference Range Interpretation Comments UA Blood (test code = Negative (12/31/13 2:39 UA Blood) PM) [facility] AND [id number] 19:39:00 Test Item Value Reference Range Interpretation Comments UA Nitrite (test code Negative (12/31/13 2:39 = UA Nitrite) PM) [facility] AND [id number] 19:39:00 Test Item Value Reference Range Interpretation Comments UA Leuk Est (test code Small *ABN*(12/31/13 = UA Leuk Est) 2:39 PM) [facility] AND [id number] 19:39:00 Test Item Value Reference Range Interpretation Comments UA Glucose (test code = UA Negative mg/dL Glucose) [facility] AND [id number] 19:39:00 Test Item Value Reference Range Interpretation Comments UA Ketones (test code = UA Negative mg/dL Ketones) [facility] AND [id number] 19:39:00 Test Item Value Reference Range Interpretation Comments UA Bili (test code = Negative *NA*(12/31/13 UA Bili) 2:39 PM) [facility] AND [id number] 19:39:00 Test Item Value Reference Range Interpretation Comments UA Spec Grav (test code = UA Spec Grav) 1.017 [facility] AND [id number] 19:39:00 Test Item Value Reference Range Interpretation Comments UA Protein (test code = UA Protein) 20 mg/dL [facility] AND [id number] 19:39:00 Test Item Value Reference Range Interpretation Comments UA pH (test code = UA pH) 6.0 5.0-8.0 [facility] AND [id number] 19:39:00 Test Item Value Reference Range Interpretation Comments UA Turbidity (test code = Clear (12/31/13 2:39 UA Turbidity) PM) [facility] AND [id number] 19:39:00 Test Item Value Reference Range Interpretation Comments UA Color (test code = Yellow *NA*(12/31/13 UA Color) 2:39 PM) [facility] [id number] 11:00:00 Test Item Value Reference Range Interpretation Comments Bili Indirect (test 0.2 See_Comment [Automa blayne message] The code = Bili Indirect) system which generated this result tra nsmitted reference range : <=1.0. The reference r celio was not used to int erpret this result as normal/abnormal . [facility]Cliq [id number] 11:00:00 Test Item Value Reference Range Interpretation Comments Bili Total (test code = Bili Total) 0.3 0.2-1.3 [facility] [id number] 11:00:00 Test Item Value Reference Range Interpretation Comments Bili Direct (test code 0.1 See_Comment [Aut omated message] The = Bili Direct) system which generated this result tra nsmitted reference range : <=0.3. The reference r celio was not used to int erpret this result as dequan l/abnormal. [facility] CenterCli[facility] [id number] 11:00:00 Test Item Value Reference Range Interpretation Comments A/G Ratio (test code = A/G Ratio) 1.0 0.7-1.6 [facility] [id number] 11:00:00 Test Item Value Reference Range Interpretation Comments AST (test code = AST) 38 See_Comment [Auto mated message] The system which ge nerated this result transmit blayne reference range : <=37. The reference range was not used to interpr et this result as dequan l/abnormal. [facility]2014-04-09 11:00:00 Test Item Value Reference Range Interpretation Comments Globulin (test code = Globulin) 3.3 2.0-4.0 [facility]2014-04-09 11:00:00 Test Item Value Reference Range Interpretation Comments Total Protein (test code = Total 6.7 6.4-8.4 Protein) [facility]2014-04-09 11:00:00 Test Item Value Reference Range Interpretation Comments ALT (test code = ALT) 104 See_Comment [Auto mated message] The system which ge nerated this result transmit blayne reference range : <=65. The reference range was not used to interpr et this result as dequan l/abnormal. [facility]2014-04-09 11:00:00 Test Item Value Reference Range Interpretation Comments Alk Phos (test code = Alk Phos) 62 39-136 [facility]2014-04-09 11:00:00 Test Item Value Reference Range Interpretation Comments Albumin Lvl (test code = Albumin Lvl) 3.4 3.5-5.0 [facility]AgvhunuZQGFCIMGVLKU3131-48-48 11:00:00 Test Item Value Reference Range Interpretation Comments AGAP (test code = AGAP) 15.3 10.0-20.0 [facility] HospitalPrrsrapQZDHXWCXIJDP2209-55-12 11:00:00 Test Item Value Reference Range Interpretation Comments eGFR (test code = eGFR) 104 [facility] HospitalKakariuRJRFVRDMLPKJ0887-21-63 11:00:00 Test Item Value Reference Range Interpretation Comments Chloride Lvl (test code = Chloride Lvl) 106 95-109 [facility] HospitalLiiznnpBQSTNFWWFMXL3153-38-30 11:00:00 Test Item Value Reference Range Interpretation Comments CO2 (test code = CO2) 26 24-32 [facility] HospitalTypjceeNUTKGJVLPLUB6771-74-62 11:00:00 Test Item Value Reference Range Interpretation Comments Potassium Lvl (test code = Potassium 4.3 3.5-5.1 Lvl) [facility] HospitalFbgopqnPYJCIZVYEBVY3823-47-05 11:00:00 Test Item Value Reference Range Interpretation Comments Calcium Lvl (test code = Calcium Lvl) 8.9 8.5-10.5 [facility] HospitalUjqvqhqBYWUXMHYBBPQ6401-34-80 11:00:00 Test Item Value Reference Range Interpretation Comments Glucose Lvl (test code = Glucose Lvl) 97 70-99 [facility] HospitalMjbdhrqKSULIDRJMNLB3278-22-91 11:00:00 Test Item Value Reference Range Interpretation Comments BUN (test code = BUN) 14 7-22 [facility] HospitalWyzftmlNXZGNVDTGAUX2000-00-59 11:00:00 Test Item Value Reference Range Interpretation Comments Creatinine Lvl (test code = Creatinine 0.7 0.5-1.4 Lvl) [facility] HospitalBicfabqSJZGQLJMEWSQ4775-03-42 11:00:00 Test Item Value Reference Range Interpretation Comments Sodium Lvl (test code = Sodium Lvl) 143 135-145 [facility] CenterUexmmuvPBNRIFNIQH1110-20-20 11:00:00 Test Item Value Reference Range Interpretation Comments MPV (test code = MPV) 8.5 7.4-10.4 [facility] CenterOdddcccWOOVKQSLQD7538-42-91 11:00:00 Test Item Value Reference Range Interpretation Comments Platelet (test code = Platelet) 308 133-450 [facility] CenterYrtclhcDUNLNPUIRM3194-84-16 11:00:00 Test Item Value Reference Range Interpretation Comments RDW (test code = RDW) 14.7 11.5-14.5 [facility] CenterLowknljGDVIUDKUBC4801-28-94 11:00:00 Test Item Value Reference Range Interpretation Comments Hct (test code = Hct) 37.8 36.0-48.0 [facility] CenterMkorzwbQKBPZBGIIX5289-03-56 11:00:00 Test Item Value Reference Range Interpretation Comments Hgb (test code = Hgb) 12.7 12.0-16.0 [facility] CenterZqgjvtwVRUITKZCSA8764-76-27 11:00:00 Test Item Value Reference Range Interpretation Comments WBC (test code = WBC) 8.3 3.7-10.4 [facility] CenterWzpuyhaLNVVLUDFKV5552-64-26 11:00:00 Test Item Value Reference Range Interpretation Comments RBC (test code = RBC) 4.21 4.20-5.40 [facility] CenterZmjnsknHFHYJRZNIO0135-38-56 11:00:00 Test Item Value Reference Range Interpretation Comments MCHC (test code = MCHC) 33.6 32.0-36.0 [facility] CenterBffafveCMFPCJRGYF0539-87-05 11:00:00 Test Item Value Reference Range Interpretation Comments MCH (test code = MCH) 30.1 pg 27.0-31.0 [facility] CenterDbeyptiGVAJQQZMHV8247-73-71 11:00:00 Test Item Value Reference Range Interpretation Comments MCV (test code = MCV) 89.6 81.0-99.0 [facility] CenterUnzhghxRNQFHWNJCP8545-45-52 11:00:00 Test Item Value Reference Range Interpretation Comments Segs (test code = Segs) 58.8 45.0-75.0 [facility] CenterUcwzuhwYZHGDRNLZY6832-37-01 11:00:00 Test Item Value Reference Range Interpretation Comments Monocytes # (test code 0.6 See_Comment [Aut omated message] The = Monocytes #) system which generated this result tra nsmitted reference range : <=0.8. The reference r celio was not used to int erpret this result as normal/abnormal . [facility] CenterFccoqvyWRCLOAZHXJ8897-74-66 11:00:00 Test Item Value Reference Range Interpretation Comments Eosinophils # (test code 0.3 See_Comment [A utomated message] The = Eosinophils #) system whic h generated this result tra nsmitted reference range : <=0.5. The reference r celio was not used to int erpret this result as normal/abnormal . [facility] CenterHlvjhdzGIYMCKYJGK1970-67-16 11:00:00 Test Item Value Reference Range Interpretation Comments Basophils (test code = 0.6 See_Comment [Aut omated message] The Basophils) system which ge nerated this result tra nsmitted reference range : <=1.0. The reference r celio was not used to int erpret this result as normal/abnormal . [facility] CenterQawbhccJJGMCPMRYP9742-56-99 11:00:00 Test Item Value Reference Range Interpretation Comments Segs-Bands # (test code = Segs-Bands #) 4.9 1.5-8.1 [facility] CenterQbkinpuWHPXTDATLB2592-67-43 11:00:00 Test Item Value Reference Range Interpretation Comments Lymphocytes # (test code = Lymphocytes 2.4 1.0-5.5 #) [facility] CenterFofpbefWUAEXLSXHW7619-74-23 11:00:00 Test Item Value Reference Range Interpretation Comments Eosinophils (test code = 4.1 See_Comment [A utomated message] The Eosinophils) system which ge nerated this result tra nsmitted reference range : <=4.0. The reference r celio was not used to int erpret this result as normal/abnormal . [facility] CenterIvbfmfaRXZJWRCGKD3020-64-99 11:00:00 Test Item Value Reference Range Interpretation Comments Lymphocytes (test code = Lymphocytes) 29.4 20.0-40.0 [facility] CenterAislofnPNVOIYYPQY5503-74-82 11:00:00 Test Item Value Reference Range Interpretation Comments Monocytes (test code = Monocytes) 7.1 2.0-12.0 [facility]2014-04-06 09:19:00 Test Item Value Reference Range Interpretation Comments eGFR (test code = eGFR) 104 [facility]2014-04-06 09:19:00 Test Item Value Reference Range Interpretation Comments Potassium Lvl (test code = Potassium 4.2 3.5-5.1 Lvl) [facility]2014-04-06 09:19:00 Test Item Value Reference Range Interpretation Comments Chloride Lvl (test code = Chloride Lvl) 104 95-109 [facility]2014-04-06 09:19:00 Test Item Value Reference Range Interpretation Comments AST (test code = AST) 47 See_Comment [Auto mated message] The system which ge nerated this result transmit blayne reference range : <=37. The reference range was not used to interpr et this result as dequan l/abnormal. [facility]2014-04-06 09:19:00 Test Item Value Reference Range Interpretation Comments Total Protein (test code = Total 7.0 6.4-8.4 Protein) [facility]2014-04-06 09:19:00 Test Item Value Reference Range Interpretation Comments Calcium Lvl (test code = Calcium Lvl) 9.6 8.5-10.5 [place] 232834-04-06 09:19:00 Test Item Value Reference Range Interpretation Comments Bili Total (test code = Bili Total) 0.3 0.2-1.3 [place] 232834-04-06 09:19:00 Test Item Value Reference Range Interpretation Comments CO2 (test code = CO2) 27 24-32 [place] 232834-04-06 09:19:00 Test Item Value Reference Range Interpretation Comments Alk Phos (test code = Alk Phos) 64 39-136 [place] 232834-04-06 09:19:00 Test Item Value Reference Range Interpretation Comments Glucose Lvl (test code = Glucose Lvl) 102 70-99 [facility]2014-04-06 09:19:00 Test Item Value Reference Range Interpretation Comments Albumin Lvl (test code = Albumin Lvl) 3.8 3.5-5.0 [facility]2014-04-06 09:19:00 Test Item Value Reference Range Interpretation Comments ALT (test code = ALT) 107 See_Comment [Auto mated message] The system which ge nerated this result transmit blayne reference range : <=65. The reference range was not used to interpr et this result as dequan l/abnormal. [facility]2014-04-06 09:19:00 Test Item Value Reference Range Interpretation Comments Creatinine Lvl (test code = Creatinine 0.7 0.5-1.4 Lvl) [facility]2014-04-06 09:19:00 Test Item Value Reference Range Interpretation Comments BUN (test code = BUN) 15 7-22 [facility]2014-04-06 09:19:00 Test Item Value Reference Range Interpretation Comments Sodium Lvl (test code = Sodium Lvl) 141 135-145 [facility]2014-04-06 09:19:00 Test Item Value Reference Range Interpretation Comments B/C Ratio (test code = B/C Ratio) 21 6-25 [facility]2014-04-06 09:19:00 Test Item Value Reference Range Interpretation Comments Globulin (test code = Globulin) 3.2 2.0-4.0 [facility]2014-04-06 09:19:00 Test Item Value Reference Range Interpretation Comments AGAP (test code = AGAP) 14.2 10.0-20.0 [facility]2014-04-06 09:19:00 Test Item Value Reference Range Interpretation Comments A/G Ratio (test code = A/G Ratio) 1.2 0.7-1.6 [facility] CenterBpbxrzdKYLMEDYJLB1248-85-26 09:19:00 Test Item Value Reference Range Interpretation Comments Lymphocytes # (test code = Lymphocytes 3.5 1.0-5.5 #) [facility] CenterIzqwvzoRIMOEMXRJT6522-90-64 09:19:00 Test Item Value Reference Range Interpretation Comments Monocytes # (test code 0.7 See_Comment [Aut omated message] The = Monocytes #) system which generated this result tra nsmitted reference range : <=0.8. The reference r celio was not used to int erpret this result as normal/abnormal . [facility] CenterLzowowtTKOEHENZWQ5225-47-80 09:19:00 Test Item Value Reference Range Interpretation Comments Segs-Bands # (test code = Segs-Bands #) 3.9 1.5-8.1 [facility] CenterLjcrmqwMPQRLRTRUJ7834-89-48 09:19:00 Test Item Value Reference Range Interpretation Comments Basophils (test code = 0.6 See_Comment [Aut omated message] The Basophils) system which ge nerated this result tra nsmitted reference range : <=1.0. The reference r celio was not used to int erpret this result as normal/abnormal . [facility] CenterZhcvlcyFFAZTVDLCU4308-56-46 09:19:00 Test Item Value Reference Range Interpretation Comments Segs (test code = Segs) 47.2 45.0-75.0 [facility] CenterAetledxKOUOIRAOGH1740-08-49 09:19:00 Test Item Value Reference Range Interpretation Comments Lymphocytes (test code = Lymphocytes) 41.8 20.0-40.0 [facility] CenterFarbsowNZVALUTKHY3422-52-56 09:19:00 Test Item Value Reference Range Interpretation Comments Eosinophils (test code = 2.5 See_Comment [A utomated message] The Eosinophils) system which ge nerated this result tra nsmitted reference range : <=4.0. The reference r celio was not used to int erpret this result as normal/abnormal . [facility] CenterUazrxihDXJETLCFKB3687-01-99 09:19:00 Test Item Value Reference Range Interpretation Comments Monocytes (test code = Monocytes) 7.9 2.0-12.0 [facility] CenterGnpaeuvRYTTTCJUMM3133-59-38 09:19:00 Test Item Value Reference Range Interpretation Comments Eosinophils # (test code 0.2 See_Comment [A utomated message] The = Eosinophils #) system ic h generated this result tra nsmitted reference range : <=0.5. The reference r celio was not used to int erpret this result as normal/abnormal . [facility] CenterRfxcnpvTTQVXCZXUL1630-47-37 09:19:00 Test Item Value Reference Range Interpretation Comments Basophils # (test code 0.1 See_Comment [Aut omated message] The = Basophils #) system which generated this result tra nsmitted reference range : <=0.2. The reference r celio was not used to int erpret this result as normal/abnormal . [facility] CenterTfbfofxSZLEIYJJJW4277-49-18 09:19:00 Test Item Value Reference Range Interpretation Comments MCHC (test code = MCHC) 34.8 32.0-36.0 [facility] CenterFzdrupvVRFNJZMDRF6891-46-37 09:19:00 Test Item Value Reference Range Interpretation Comments RDW (test code = RDW) 14.6 11.5-14.5 [facility] CenterOvgbcwhEPNRUQQVFY8174-65-31 09:19:00 Test Item Value Reference Range Interpretation Comments Platelet (test code = Platelet) 296 133-450 [facility] CenterVlofkxzGBVFOTLVIN9772-82-07 09:19:00 Test Item Value Reference Range Interpretation Comments MPV (test code = MPV) 8.4 7.4-10.4 [facility] CenterHfljvokLWGUMQSMZS7231-75-22 09:19:00 Test Item Value Reference Range Interpretation Comments WBC (test code = WBC) 8.4 3.7-10.4 [facility] CenterEefwaoxACCRKLAIUA2810-21-58 09:19:00 Test Item Value Reference Range Interpretation Comments Hct (test code = Hct) 40.0 36.0-48.0 [facility] CenterPxlgrofSNUNOBTZQI8703-14-73 09:19:00 Test Item Value Reference Range Interpretation Comments Hgb (test code = Hgb) 13.9 12.0-16.0 [facility] CenterSoylzkcGVXDOATTGB3490-85-00 09:19:00 Test Item Value Reference Range Interpretation Comments MCH (test code = MCH) 30.7 pg 27.0-31.0 [facility] CenterYakbskqPBDPPOYFXN5445-47-98 09:19:00 Test Item Value Reference Range Interpretation Comments MCV (test code = MCV) 88.3 81.0-99.0 [facility] CenterYdruoaaHMPWFAPCYN7322-25-11 09:19:00 Test Item Value Reference Range Interpretation Comments RBC (test code = RBC) 4.53 4.20-5.40 [facility] HospitalZthrnexMQCVJRUGWQHJ6978-99-54 10:29:00 Test Item Value Reference Range Interpretation Comments AGAP (test code = AGAP) 15.0 10.0-20.0 [facility] HospitalCzkehwlGPKPTPNCCNPM8006-40-21 10:29:00 Test Item Value Reference Range Interpretation Comments eGFR (test code = eGFR) 88 [facility] HospitalIyxzlzsKJLLHOKIHTEH5144-83-21 10:29:00 Test Item Value Reference Range Interpretation Comments Calcium Lvl (test code = Calcium Lvl) 9.2 8.5-10.5 [facility] HospitalZpxkquuHXHSZJUFZWWB0863-93-09 10:29:00 Test Item Value Reference Range Interpretation Comments Chloride Lvl (test code = Chloride Lvl) 103 95-109 [facility] HospitalViteilvUPJWGUVZMIMG7178-59-46 10:29:00 Test Item Value Reference Range Interpretation Comments CO2 (test code = CO2) 25 24-32 [facility] HospitalTftpjqcUPRPPTSFDGDP4477-99-90 10:29:00 Test Item Value Reference Range Interpretation Comments Potassium Lvl (test code = Potassium 4.0 3.5-5.1 Lvl) [facility] HospitalHleyaiqPYQSGUOVXBUX0439-82-91 10:29:00 Test Item Value Reference Range Interpretation Comments Sodium Lvl (test code = Sodium Lvl) 139 135-145 [facility] HospitalCympkxsWXOMTLVLBOTH6004-31-81 10:29:00 Test Item Value Reference Range Interpretation Comments Creatinine Lvl (test code = Creatinine 0.8 0.5-1.4 Lvl) [facility] HospitalZegokhxQMMPRLJZLKNQ5007-31-44 10:29:00 Test Item Value Reference Range Interpretation Comments BUN (test code = BUN) 19 7-22 [facility] HospitalBnuffptPYUAAHFSYSSB0688-00-71 10:29:00 Test Item Value Reference Range Interpretation Comments Glucose Lvl (test code = Glucose Lvl) 87 70-99 [facility] CenterTcgwwehAROEPQCBOQ0237-42-00 10:29:00 Test Item Value Reference Range Interpretation Comments MPV (test code = MPV) 9.0 7.4-10.4 [facility] CenterUyrvneuZGRWEFPZHO3810-88-46 10:29:00 Test Item Value Reference Range Interpretation Comments Platelet (test code = Platelet) 299 133-450 [facility] CenterCrgevygZRIJLTHBNI4121-54-94 10:29:00 Test Item Value Reference Range Interpretation Comments MCHC (test code = MCHC) 34.4 32.0-36.0 [facility] CenterFxbgaatHVSJTRYBAD7905-43-99 10:29:00 Test Item Value Reference Range Interpretation Comments RDW (test code = RDW) 14.6 11.5-14.5 [facility] CenterGnyirjlMBMWTDGXOM6912-14-73 10:29:00 Test Item Value Reference Range Interpretation Comments MCH (test code = MCH) 30.5 pg 27.0-31.0 [facility] CenterVzaezsjCXVQJWEEYD1674-77-22 10:29:00 Test Item Value Reference Range Interpretation Comments RBC (test code = RBC) 4.33 4.20-5.40 [facility] CenterEcfkejvLRGSUZECDJ0917-27-12 10:29:00 Test Item Value Reference Range Interpretation Comments WBC (test code = WBC) 7.5 3.7-10.4 [facility] CenterGmgzofbGOQXBEWXJQ2461-33-66 10:29:00 Test Item Value Reference Range Interpretation Comments MCV (test code = MCV) 88.7 81.0-99.0 [facility] CenterPuslobyCXHDCSLVLW0677-76-72 10:29:00 Test Item Value Reference Range Interpretation Comments Hgb (test code = Hgb) 13.2 12.0-16.0 [facility] CenterVnoakxyCVCQXSWMOH0205-66-86 10:29:00 Test Item Value Reference Range Interpretation Comments Hct (test code = Hct) 38.4 36.0-48.0 [facility] CenterMakgwymERSZTPTSHC1372-22-17 10:29:00 Test Item Value Reference Range Interpretation Comments Monocytes (test code = Monocytes) 6.0 2.0-12.0 [facility] CenterGnroqskGAJQJWOFJK5532-08-82 10:29:00 Test Item Value Reference Range Interpretation Comments Eosinophils (test code = 2.2 See_Comment [A utomated message] The Eosinophils) system which ge nerated this result tra nsmitted reference range : <=4.0. The reference r celio was not used to int erpret this result as normal/abnormal . [facility] CenterLogdatmZZOYEBMZEN6421-51-25 10:29:00 Test Item Value Reference Range Interpretation Comments Eosinophils # (test code 0.2 See_Comment [A utomated message] The = Eosinophils #) system whic h generated this result tra nsmitted reference range : <=0.5. The reference r celio was not used to int erpret this result as normal/abnormal . [facility] CenterTfzlkypXEJMDIMGMZ1398-57-71 10:29:00 Test Item Value Reference Range Interpretation Comments Lymphocytes (test code = Lymphocytes) 45.2 20.0-40.0 [facility] CenterUqcgmmgEPAENFFKZQ1118-57-07 10:29:00 Test Item Value Reference Range Interpretation Comments Monocytes # (test code 0.4 See_Comment [Aut omated message] The = Monocytes #) system which generated this result tra nsmitted reference range : <=0.8. The reference r celio was not used to int erpret this result as normal/abnormal . [facility] CenterCmgqzgbVYDRPASZJJ8474-54-23 10:29:00 Test Item Value Reference Range Interpretation Comments Lymphocytes # (test code = Lymphocytes 3.4 1.0-5.5 #) [facility] CenterCfxnkoqVZAYLBNUNT0584-75-83 10:29:00 Test Item Value Reference Range Interpretation Comments Basophils (test code = 0.5 See_Comment [Aut omated message] The Basophils) system which ge nerated this result tra nsmitted reference range : <=1.0. The reference r celio was not used to int erpret this result as normal/abnormal . [facility] CenterFbnsaxkYGQWAAVCBP9561-51-81 10:29:00 Test Item Value Reference Range Interpretation Comments Segs-Bands # (test code = Segs-Bands #) 3.4 1.5-8.1 [facility] CenterVnrnhhkYLSEISIMMJ2266-08-83 10:29:00 Test Item Value Reference Range Interpretation Comments Segs (test code = Segs) 46.1 45.0-75.0 [facility]2014-03-26 10:30:04 Test Item Value Reference Range Interpretation Comments Globulin (test code = Globulin) 3.3 2.0-4.0 [facility]2014-03-26 10:30:04 Test Item Value Reference Range Interpretation Comments A/G Ratio (test code = A/G Ratio) 1.1 0.7-1.6 [facility]2014-03-26 10:30:04 Test Item Value Reference Range Interpretation Comments ASPARTATE TRANSAMINASE 69 See_Comment [Aut omated message] (test code = ASPARTATE The s ystem which TRANSAMINASE) generated this result transmitted ref erence range: <=37. Th e reference range was not used to interpr et this result as normal/abnormal . [facility]2014-03-26 10:30:04 Test Item Value Reference Range Interpretation Comments Bili Indirect (test 0.2 See_Comment [Automa blayne message] The code = Bili Indirect) system which generated this result tra nsmitted reference range : <=1.0. The reference r celio was not used to int erpret this result as normal/abnormal . [facility]2014-03-26 10:30:04 Test Item Value Reference Range Interpretation Comments Bili Total (test code = Bili Total) 0.3 0.2-1.3 [facility]2014-03-26 10:30:04 Test Item Value Reference Range Interpretation Comments Total Protein (test code = Total 6.8 6.4-8.4 Protein) [facility]2014-03-26 10:30:04 Test Item Value Reference Range Interpretation Comments Alk Phos (test code = Alk Phos) 66 39-136 [facility]2014-03-26 10:30:04 Test Item Value Reference Range Interpretation Comments Bili Direct (test code 0.1 See_Comment [Aut omated message] The = Bili Direct) system which generated this result tra nsmitted reference range : <=0.3. The reference r celio was not used to int erpret this result as dequan l/abnormal. [facility]2014-03-26 10:30:04 Test Item Value Reference Range Interpretation Comments ALANINE AMINOTRANSFERASE 125 See_Comment [A utomated message] (test code = ALANINE The sys tem which AMINOTRANSFERASE) generated this result transmitted ref erence range: <=65. Th e reference range was not used to int erpret this result as normal/abnormal . [facility]2014-03-26 10:30:04 Test Item Value Reference Range Interpretation Comments Albumin Lvl (test code = Albumin Lvl) 3.5 3.5-5.0 [facility]2014-03-24 10:03:00 Test Item Value Reference Range Interpretation Comments Magnesium Lvl (test code = Magnesium 1.5 1.8-2.4 Lvl) [facility]2014-03-24 10:03:00 Test Item Value Reference Range Interpretation Comments Phosphorus (test code = Phosphorus) 4.4 2.5-4.5 [facility]TdxrcllSAUKRK5912-30-99 10:03:00 Test Item Value Reference Range Interpretation Comments VLDL (test code = VLDL) 38 [facility]VgmdedmDNTDWB9331-44-10 10:03:00 Test Item Value Reference Range Interpretation Comments LDL (Calculated) (test code = LDL 121 (Calculated)) [facility] HospitalEnonfxgNLEMNT9556-50-16 10:03:00 Test Item Value Reference Range Interpretation Comments Chol (test code = Chol) 208 [facility] HospitalItdcyzaFILJKB4057-47-66 10:03:00 Test Item Value Reference Range Interpretation Comments Trig (test code = Trig) 191 [facility] HospitalOubwuvnRXYDHV8628-41-33 10:03:00 Test Item Value Reference Range Interpretation Comments HDL (test code = HDL) 49 [facility] HospitalVandwicJDRDDH5116-06-78 10:03:00 Test Item Value Reference Range Interpretation Comments CHD Risk (test code = CHD Risk) 4.24 3.90-5.80 [facility]2014-03-21 11:00:00 Test Item Value Reference Range Interpretation Comments Bili Indirect (test 0.2 See_Comment [Automa blayne message] The code = Bili Indirect) system which generated this result tra nsmitted reference range : <=1.0. The reference r celio was not used to int erpret this result as normal/abnormal . [facility]2014-03-21 11:00:00 Test Item Value Reference Range Interpretation Comments Bili Direct (test code 0.1 See_Comment [Aut omated message] The = Bili Direct) system which generated this result tra nsmitted reference range : <=0.3. The reference r celio was not used to int erpret this result as dequan l/abnormal. [facility]2014-03-17 06:57:53 Test Item Value Reference Range Interpretation Comments B/C Ratio (test code = B/C Ratio) 12 6-25 [facility]2014-03-14 11:45:00 Test Item Value Reference Range Interpretation Comments Vitamin B12 Lvl (test code = Vitamin [phone] B12 Lvl) [facility]2014-03-14 11:45:00 Test Item Value Reference Range Interpretation Comments Folate Lvl (test code = Folate Lvl) 17.6 [facility]2014-03-14 11:45:00 Test Item Value Reference Range Interpretation Comments Magnesium Lvl (test code = Magnesium 2.0 1.8-2.4 Lvl) [facility]2014-03-14 11:45:00 Test Item Value Reference Range Interpretation Comments VITAMIN B1 (THIAMINE) WHOLE BLOOD (test 71 78-185 code = VITAMIN B1 (THIAMINE) WHOLE BLOOD) [facility]2014 10:05:00 Test Item Value Reference Range Interpretation Comments Amylase Lvl (test code = Amylase Lvl) 46 25-115 [facility]2014 10:05:00 Test Item Value Reference Range Interpretation Comments Lipase Lvl (test code = Lipase Lvl) 152 73-393 [facility]VeznpvdOEPANIXEKU6429-09-07 19:46:00 Test Item Value Reference Range Interpretation Comments aPTT (test code = aPTT) 30.8 s 22.9-35.8 [facility] HospitalCARDIAC UPZPNVW1372-85-80 10:25:00 Test Item Value Reference Range Interpretation Comments Total CK (test code = Total CK) 58 12-191 [facility]2014-03-10 10:25:00 Test Item Value Reference Range Interpretation Comments Calcium Lvl (test code = Calcium Lvl) 9.4 8.5-10.5 [facility]2014-03-10 10:25:00 Test Item Value Reference Range Interpretation Comments Magnesium Lvl (test code = Magnesium 1.9 1.8-2.4 Lvl) [facility]2014-03-10 10:25:00 Test Item Value Reference Range Interpretation Comments Phosphorus (test code = Phosphorus) 5.0 2.5-4.5 [facility]2014-03-10 10:25:00 Test Item Value Reference Range Interpretation Comments A/G Ratio (test code = A/G Ratio) 1.3 0.7-1.6 [facility]2014-03-10 10:25:00 Test Item Value Reference Range Interpretation Comments Globulin (test code = Globulin) 2.9 2.0-4.0 [facility]2014-03-10 10:25:00 Test Item Value Reference Range Interpretation Comments Bili Indirect (test 0.3 See_Comment [Automa blayne message] The code = Bili Indirect) system which generated this result tra nsmitted reference range : <=1.0. The reference r celio was not used to int erpret this result as normal/abnormal . [facility]2014-03-10 10:25:00 Test Item Value Reference Range Interpretation Comments Alk Phos (test code = Alk Phos) 97 39-136 [facility]2014-03-10 10:25:00 Test Item Value Reference Range Interpretation Comments Total Protein (test code = Total 6.6 6.4-8.4 Protein) [facility]2014-03-10 10:25:00 Test Item Value Reference Range Interpretation Comments Bili Direct (test code 0.1 See_Comment [Aut omated message] The = Bili Direct) system which generated this result tra nsmitted reference range : <=0.3. The reference r celio was not used to int erpret this result as dequan l/abnormal. [facility]2014-03-10 10:25:00 Test Item Value Reference Range Interpretation Comments ALANINE AMINOTRANSFERASE 116 See_Comment [A utomated message] (test code = ALANINE The sys tem which AMINOTRANSFERASE) generated this result transmitted ref erence range: <=65. Th e reference range was not used to int erpret this result as normal/abnormal . [facility]2014-03-10 10:25:00 Test Item Value Reference Range Interpretation Comments Albumin Lvl (test code = Albumin Lvl) 3.7 3.5-5.0 [facility]2014-03-10 10:25:00 Test Item Value Reference Range Interpretation Comments Bili Total (test code = Bili Total) 0.4 0.2-1.3 [facility]2014-03-10 10:25:00 Test Item Value Reference Range Interpretation Comments ASPARTATE TRANSAMINASE 63 See_Comment [Aut omated message] (test code = ASPARTATE The s ystem which TRANSAMINASE) generated this result transmitted ref erence range: <=37. Th e reference range was not used to interpr et this result as normal/abnormal . [facility] HospitalAqvglosPOHBZXPOGQHO3929-89-59 10:25:00 Test Item Value Reference Range Interpretation Comments AGAP (test code = AGAP) 14.1 10.0-20.0 [facility] HospitalZxlvaaxDHNGPXNREMXT2032-92-60 10:25:00 Test Item Value Reference Range Interpretation Comments eGFR (test code = eGFR) 104 [facility] [facility]JBQEMDFCBQ9681[facility]52-39 10:25:00 Test Item Value Reference Range Interpretation Comments Creatinine Lvl (test code = Creatinine 0.7 0.5-1.4 Lvl) [facility]XrmtoalEHSRMQPVACMV2719-06-96 10:25:00 Test Item Value Reference Range Interpretation Comments BUN (test code = BUN) 13 7-22 [facility] HospitalPshdlneVMFKYFQIVNVL5822-78-64 10:25:00 Test Item Value Reference Range Interpretation Comments Glucose Lvl (test code = Glucose Lvl) 101 70-99 [facility] HospitalOxhmujrIYPKWTUAVOVV9281-87-13 10:25:00 Test Item Value Reference Range Interpretation Comments Sodium Lvl (test code = Sodium Lvl) 141 135-145 [facility] HospitalKmupbriORQFTXXYPBVN6261-63-93 10:25:00 Test Item Value Reference Range Interpretation Comments Calcium Lvl (test code = Calcium Lvl) 9.4 8.5-10.5 [facility] HospitalAlmqjblNKDHDEGWZGNM5208-17-45 10:25:00 Test Item Value Reference Range Interpretation Comments Chloride Lvl (test code = Chloride Lvl) 105 95-109 [facility] HospitalWoqohenOGNHPXSULGRO8349-66-25 10:25:00 Test Item Value Reference Range Interpretation Comments CO2 (test code = CO2) 26 24-32 [facility] HospitalEczwdlaKEXQTUAGPBAA9822-83-86 10:25:00 Test Item Value Reference Range Interpretation Comments Potassium Lvl (test code = Potassium 4.1 3.5-5.1 Lvl) [facility] CenterWieczjwUYONURJAQM4059-65-11 10:25:00 Test Item Value Reference Range Interpretation Comments MCV (test code = MCV) 89.0 81.0-99.0 [facility] CenterYpyrctpZKZHHJKSAQ8834-40-60 10:25:00 Test Item Value Reference Range Interpretation Comments Hct (test code = Hct) 43.6 36.0-48.0 [facility] CenterZalhyziKECYTXKDPM3212-14-41 10:25:00 Test Item Value Reference Range Interpretation Comments MPV (test code = MPV) 8.5 7.4-10.4 [facility] CenterMfloajvXGWRVVSLYB0296-75-65 10:25:00 Test Item Value Reference Range Interpretation Comments Platelet (test code = Platelet) 291 133-450 [facility] CenterLltcsyfSSZAEYEIYC6905-17-70 10:25:00 Test Item Value Reference Range Interpretation Comments RDW (test code = RDW) 13.8 11.5-14.5 [facility] CenterZwfnzllDKKAPVFKAP3054-14-75 10:25:00 Test Item Value Reference Range Interpretation Comments MCHC (test code = MCHC) 34.7 32.0-36.0 [facility] CenterYunnuwjCJHHLPSCIT6211-95-31 10:25:00 Test Item Value Reference Range Interpretation Comments MCH (test code = MCH) 30.9 pg 27.0-31.0 [facility] CenterUfuzdajHJFNEFOTKM1387-41-86 10:25:00 Test Item Value Reference Range Interpretation Comments RBC X 10x6 (test code = RBC X 10x6) 4.90 4.20-5.40 [facility] CenterHwdesvePOQVEFRDPT2425-27-68 10:25:00 Test Item Value Reference Range Interpretation Comments WBC X 10x3 (test code = WBC X 10x3) 7.6 3.7-10.4 [facility] CenterKqgktjmBGQGVMTNQB4615-76-93 10:25:00 Test Item Value Reference Range Interpretation Comments Hgb (test code = Hgb) 15.1 12.0-16.0 [facility] CenterQvzvaoeEENMTFSKBU7295-12-20 10:25:00 Test Item Value Reference Range Interpretation Comments Eosinophils # (test code 0.3 See_Comment [A utomated message] The = Eosinophils #) system [facility] h generated this result tra nsmitted reference range : <=0.5. The reference r celio was not used to int erpret this result as normal/abnormal . [facility] CenterOfohzbxYNRIKCNDSL9291-97-65 10:25:00 Test Item Value Reference Range Interpretation Comments Lymphocytes # (test code = Lymphocytes 3.3 1.0-5.5 #) [facility] CenterYpssorzWOOIHTDCTG7779-56-44 10:25:00 Test Item Value Reference Range Interpretation Comments Monocytes # (test code 0.6 See_Comment [Aut omated message] The = Monocytes #) system which generated this result tra nsmitted reference range : <=0.8. The reference r celio was not used to int erpret this result as normal/abnormal . [facility] CenterNmncjmyVCZFHELXPQ5535-30-19 10:25:00 Test Item Value Reference Range Interpretation Comments Segs-Bands # (test code = Segs-Bands #) 3.4 1.5-8.1 [facility] CenterFreufgxRJLZIVGOGG8217-83-95 10:25:00 Test Item Value Reference Range Interpretation Comments Basophils (test code = 0.5 See_Comment [Aut omated message] The Basophils) system which ge nerated this result tra nsmitted reference range : <=1.0. The reference r celio was not used to int erpret this result as normal/abnormal . [facility] CenterKglijnbREHDCMEVZU3163-18-65 10:25:00 Test Item Value Reference Range Interpretation Comments Segs (test code = Segs) 45.3 45.0-75.0 [facility] CenterLitzgoaIKRFGJDUPR4681-32-14 10:25:00 Test Item Value Reference Range Interpretation Comments Monocytes (test code = Monocytes) 7.9 2.0-12.0 [facility] CenterOidpiysVBMIFZAFNL0371-29-64 10:25:00 Test Item Value Reference Range Interpretation Comments Eosinophils (test code = 3.4 See_Comment [A utomated message] The Eosinophils) system which ge nerated this result tra nsmitted reference range : <=4.0. The reference r celio was not used to int erpret this result as normal/abnormal . [facility] CenterUbxcxqwOJVDOSFBAQ3181-29-76 10:25:00 Test Item Value Reference Range Interpretation Comments Lymphocytes (test code = Lymphocytes) 42.9 20.0-40.0 [facility]2014-03-09 13:26:07 Test Item Value Reference Range Interpretation Comments UA Urobilinogen (test code = UA <=1.0 mg/dL 0.1-1.0 Urobilinogen) [facility]2014-03-09 13:26:07 Test Item Value Reference Range Interpretation Comments UA WBC (test code = no gt See_Comment [Automa blayne message] The UA WBC) system which ge nerated this result transmit blayne reference range : <=5. The reference range was not used to interpr et this result as dequan l/abnormal. [facility]2014-03-09 13:26:07 Test Item Value Reference Range Interpretation Comments UA RBC (test code = 2 See_Comment [Automa blayne message] The UA RBC) system which ge nerated this result transmit blayne reference range : <=2. The reference range was not used to interpr et this result as dequan l/abnormal. [facility]2014-03-09 13:26:07 Test Item Value Reference Range Interpretation Comments UA Sq Epi (test code = UA Sq Epi) Many /LPF [facility] AND [id number] 13:26:07 Test Item Value Reference Range Interpretation Comments UA Mucus (test code = UA Mucus) Many /LPF [facility] AND DJKPS7720-29-44 13:26:07 Test Item Value Reference Range Interpretation Comments UA Bacteria (test code = UA Few /HPF Bacteria) [facility] AND [id number] 13:26:07 Test Item Value Reference Range Interpretation Comments UA Amorph Valeria (test code = UA Moderate /HPF Amorph Valeria) [facility] AND [id number] 13:26:07 Test Item Value Reference Range Interpretation Comments UA Leuk Est (test code Large *ABN*(11/29/2013 = UA Leuk Est) 08:26:07 [place]) [facility] AND [id number] 13:26:07 Test Item Value Reference Range Interpretation Comments UA Blood (test code = Trace *ABN*(11/29/2013 UA Blood) 08:26:07 [place]) [facility] AND [id number] 13:26:07 Test Item Value Reference Range Interpretation Comments UA Nitrite (test code Negative (11/29/2013 = UA Nitrite) 08:26:07 [place]) [facility] AND [id number] 13:26:07 Test Item Value Reference Range Interpretation Comments UA Protein (test code = UA Protein) 30 mg/dL [facility] AND [id number] 13:26:07 Test Item Value Reference Range Interpretation Comments UA pH (test code = UA pH) 6.5 5.0-8.0 [facility] AND PZPAH8669-28-26 13:26:07 Test Item Value Reference Range Interpretation Comments UA Glucose (test code = UA Negative mg/dL Glucose) [facility] AND [id number] 13:26:07 Test Item Value Reference Range Interpretation Comments UA Bili (test code = Negative *NA*(11/29/2013 UA Bili) 08:26:07 [place]) [facility] AND [id number] 13:26:07 Test Item Value Reference Range Interpretation Comments UA Ketones (test code = UA Negative mg/dL Ketones) [facility] AND [id number] 13:26:07 Test Item Value Reference Range Interpretation Comments UA Color (test code = Yellow *NA*(11/29/2013 UA Color) 08:26:07 [facility]/[place]) [facility] AND [id number] 13:26:07 Test Item Value Reference Range Interpretation Comments UA Turbidity (test code Marked = UA Turbidity) *ABN*(11/29/2013 08:26:07 [facility]/[place]) [facility] AND [id number] 13:26:07 Test Item Value Reference Range Interpretation Comments UA Spec Grav (test code = UA Spec Grav) 1.014 [facility]2014-03-09 11:31:57 Test Item Value Reference Range Interpretation Comments eGFR (test code = eGFR) 104 [facility]2014-03-09 11:31:57 Test Item Value Reference Range Interpretation Comments Calcium Lvl (test code = Calcium Lvl) 9.4 8.5-10.5 [facility]2014-03-09 11:31:57 Test Item Value Reference Range Interpretation Comments Chloride Lvl (test code = Chloride Lvl) 108 95-109 [facility]2014-03-09 11:31:57 Test Item Value Reference Range Interpretation Comments CO2 (test code = CO2) 23 24-32 [facility]2014-03-09 11:31:57 Test Item Value Reference Range Interpretation Comments AGAP (test code = AGAP) 17.2 10.0-20.0 [facility]2014-03-09 11:31:57 Test Item Value Reference Range Interpretation Comments Sodium Lvl (test code = Sodium Lvl) 144 135-145 [facility]2014-03-09 11:31:57 Test Item Value Reference Range Interpretation Comments Potassium Lvl (test code = Potassium 4.2 3.5-5.1 Lvl) [facility]2014-03-09 11:31:57 Test Item Value Reference Range Interpretation Comments Glucose Lvl (test code = Glucose Lvl) 139 70-99 [facility]2014-03-09 11:31:57 Test Item Value Reference Range Interpretation Comments BUN (test code = BUN) 10 7-22 [facility]2014-03-09 11:31:57 Test Item Value Reference Range Interpretation Comments Creatinine Lvl (test code = Creatinine 0.7 0.5-1.4 Lvl) [facility]2014-03-09 11:31:57 Test Item Value Reference Range Interpretation Comments Magnesium Lvl (test code = Magnesium 1.9 1.8-2.4 Lvl) [facility]2014-03-08 09:24:00 Test Item Value Reference Range Interpretation Comments Phosphorus (test code = Phosphorus) 4.1 2.5-4.5 [facility]2014-03-08 09:24:00 Test Item Value Reference Range Interpretation Comments Magnesium Lvl (test code = Magnesium 1.9 1.8-2.4 Lvl) [facility] HospitalPtopicsPCHBLCWPVQPE6610-93-54 09:24:00 Test Item Value Reference Range Interpretation Comments AGAP (test code = AGAP) 14.7 10.0-20.0 [facility] HospitalAyiypcrDLPANAHUXZEM4586-50-46 09:24:00 Test Item Value Reference Range Interpretation Comments eGFR (test code = eGFR) 104 [facility] HospitalGuafqdoJYQZPMXUQWWI5820-50-15 09:24:00 Test Item Value Reference Range Interpretation Comments Chloride Lvl (test code = Chloride Lvl) 106 95-109 [facility] HospitalQztwxtnAKYSZKBQEAFZ2340-96-38 09:24:00 Test Item Value Reference Range Interpretation Comments CO2 (test code = CO2) 25 24-32 [facility] HospitalZdkgcukDNCTQGIEFQJD9508-22-02 09:24:00 Test Item Value Reference Range Interpretation Comments Potassium Lvl (test code = Potassium 3.7 3.5-5.1 Lvl) [facility] HospitalJufcabzAOOEPNZOCGRX4773-85-43 09:24:00 Test Item Value Reference Range Interpretation Comments Sodium Lvl (test code = Sodium Lvl) 142 135-145 [facility] HospitalGasnegjHSTHKNZDVMGZ7528-17-48 09:24:00 Test Item Value Reference Range Interpretation Comments Glucose Lvl (test code = Glucose Lvl) 142 70-99 [facility] HospitalCtxctzdITHVLNNJUOBL9883-87-04 09:24:00 Test Item Value Reference Range Interpretation Comments Creatinine Lvl (test code = Creatinine 0.7 0.5-1.4 Lvl) [facility] HospitalBwgqxtlZIHHMCJCUBEB4846-32-12 09:24:00 Test Item Value Reference Range Interpretation Comments BUN (test code = BUN) 9 7-22 [facility] CenterGuibdzfMRMEXVRHBG5831-64-75 09:24:00 Test Item Value Reference Range Interpretation Comments Lymphocytes # (test code = Lymphocytes 3.0 1.0-5.5 #) [facility] CenterHcbelxyRMBHSDQUMG3306-63-46 09:24:00 Test Item Value Reference Range Interpretation Comments Eosinophils (test code = 2.7 See_Comment [A utomated message] The Eosinophils) system which ge nerated this result tra nsmitted reference range : <=4.0. The reference r celio was not used to int erpret this result as normal/abnormal . [facility] CenterXxcdzqkHSWNWDODXQ0296-06-75 09:24:00 Test Item Value Reference Range Interpretation Comments Basophils (test code = 0.5 See_Comment [Aut omated message] The Basophils) system which ge nerated this result tra nsmitted reference range : <=1.0. The reference r celoi was not used to int erpret this result as normal/abnormal . [facility] CenterBpuoiltRXKPYRNUAP7964-03-32 09:24:00 Test Item Value Reference Range Interpretation Comments Eosinophils # (test code 0.2 See_Comment [A utomated message] The = Eosinophils #) system whic h generated this result tra nsmitted reference range : <=0.5. The reference r celio was not used to int erpret this result as normal/abnormal . [facility] CenterVbxuwlhXUAGYOMXIZ7214-33-41 09:24:00 Test Item Value Reference Range Interpretation Comments Monocytes # (test code 0.6 See_Comment [Aut omated message] The = Monocytes #) system which generated this result tra nsmitted reference range : <=0.8. The reference r celio was not used to int erpret this result as normal/abnormal . [facility] CenterRbzdyqdNGCNNNPLGL4220-98-29 09:24:00 Test Item Value Reference Range Interpretation Comments Segs-Bands # (test code = Segs-Bands #) 4.1 1.5-8.1 [facility] CenterWhyprwfDUUPYYOBBI8995-99-19 09:24:00 Test Item Value Reference Range Interpretation Comments Lymphocytes (test code = Lymphocytes) 37.9 20.0-40.0 [facility] CenterMfwnyfuUACHFAQIDI2013-02-12 09:24:00 Test Item Value Reference Range Interpretation Comments Monocytes (test code = Monocytes) 6.9 2.0-12.0 [place] 028704-03-08 09:24:00 Test Item Value Reference Range Interpretation Comments Segs (test code = Segs) 52.0 45.0-75.0 [facility] CenterVzzszygXYRKJPYIAV6342-44-52 09:24:00 Test Item Value Reference Range Interpretation Comments MPV (test code = MPV) 8.5 7.4-10.4 [facility] CenterWsetbpkCFDRFKJNPL7471-85-16 09:24:00 Test Item Value Reference Range Interpretation Comments Platelet (test code = Platelet) 275 133-450 [facility] CenterXksracwLHCDWFITWN8243-97-04 09:24:00 Test Item Value Reference Range Interpretation Comments RBC X 10x6 (test code = RBC X 10x6) 4.93 4.20-5.40 [facility] CenterUtdihtkVHFUFDXMOW7466-83-59 09:24:00 Test Item Value Reference Range Interpretation Comments WBC X 10x3 (test code = WBC X 10x3) 8.0 3.7-10.4 [facility] CenterYigapnwFJVEXTBRCU2126-82-99 09:24:00 Test Item Value Reference Range Interpretation Comments MCV (test code = MCV) 88.7 81.0-99.0 [facility] CenterPbixxxjBLPNHRNLTB4088-61-79 09:24:00 Test Item Value Reference Range Interpretation Comments Hgb (test code = Hgb) 15.0 12.0-16.0 [facility] CenterWyvlmraXTHIPXVDTQ3941-56-40 09:24:00 Test Item Value Reference Range Interpretation Comments Hct (test code = Hct) 43.7 36.0-48.0 [facility] CenterFzovsxkWLJHVOQCUO5028-26-84 09:24:00 Test Item Value Reference Range Interpretation Comments MCH (test code = MCH) 30.4 pg 27.0-31.0 [facility] CenterUnxugupJKMDHTJGMN9055-45-53 09:24:00 Test Item Value Reference Range Interpretation Comments MCHC (test code = MCHC) 34.3 32.0-36.0 [facility] CenterWnbygypVXBAZLKKGK4397-50-20 09:24:00 Test Item Value Reference Range Interpretation Comments RDW (test code = RDW) 14.0 11.5-14.5 [facility]2014-03-07 07:23:00 Test Item Value Reference Range Interpretation Comments Globulin (test code = Globulin) 3.2 2.0-4.0 [place] 232834-03-07 07:23:00 Test Item Value Reference Range Interpretation Comments A/G Ratio (test code = A/G Ratio) 1.2 0.7-1.6 [place] [address]-03-07 07:23:00 Test Item Value Reference Range Interpretation Comments Alk Phos (test code = Alk Phos) 112 39-136 [place] 232834-03-07 07:23:00 Test Item Value Reference Range Interpretation Comments Albumin Lvl (test code = Albumin Lvl) 3.9 3.5-5.0 [place] 232834-03-07 07:23:00 Test Item Value Reference Range Interpretation Comments ALANINE AMINOTRANSFERASE 184 See_Comment [A utomated message] (test code = ALANINE The sys tem which AMINOTRANSFERASE) generated this result transmitted ref erence range: <=65. Th e reference range was not used to int erpret this result as normal/abnormal . [place] 232834-03-07 07:23:00 Test Item Value Reference Range Interpretation Comments Total Protein (test code = Total 7.1 6.4-8.4 Protein) [place] [address]-03-07 07:23:00 Test Item Value Reference Range Interpretation Comments ASPARTATE TRANSAMINASE 76 See_Comment [Aut omated message] (test code = ASPARTATE The s ystem which TRANSAMINASE) generated this result transmitted ref erence range: <=37. Th e reference range was not used to interpr et this result as normal/abnormal . [place] 232834-03-07 07:23:00 Test Item Value Reference Range Interpretation Comments Bili Total (test code = Bili Total) 0.3 0.2-1.3 [place] [address]-03-07 07:23:00 Test Item Value Reference Range Interpretation Comments Bili Indirect (test 0.2 See_Comment [Automa blayne message] The code = Bili Indirect) system which generated this result tra nsmitted reference range : <=1.0. The reference r celio was not used to int erpret this result as normal/abnormal . [place] 232834-03-07 07:23:00 Test Item Value Reference Range Interpretation Comments Bili Direct (test code 0.1 See_Comment [Aut omated message] The = Bili Direct) system which generated this result tra nsmitted reference range : <=0.3. The reference r celio was not used to int erpret this result as dequan l/abnormal. [facility]2014-03-07 07:23:00 Test Item Value Reference Range Interpretation Comments Phosphorus (test code = Phosphorus) 4.6 2.5-4.5 [facility] CenterJmarvajIPMNGHHTVH4987-82-51 07:23:00 Test Item Value Reference Range Interpretation Comments Eosinophils (test code = 1.7 See_Comment [A utomated message] The Eosinophils) system which ge nerated this result tra nsmitted reference range : <=4.0. The reference r celio was not used to int erpret this result as normal/abnormal . [facility] CenterDcghfccHMXIIMGJDX8319-08-28 07:23:00 Test Item Value Reference Range Interpretation Comments Basophils (test code = 0.7 See_Comment [Aut omated message] The Basophils) system which ge nerated this result tra nsmitted reference range : <=1.0. The reference r celio was not used to int erpret this result as normal/abnormal . [facility] CenterCfxqmnqUDPRMHAOTJ4180-05-39 07:23:00 Test Item Value Reference Range Interpretation Comments Lymphocytes # (test code = Lymphocytes 3.2 1.0-5.5 #) [facility] CenterWrqjeywAZLXTYPQLV7705-71-39 07:23:00 Test Item Value Reference Range Interpretation Comments Monocytes # (test code 0.6 See_Comment [Aut omated message] The = Monocytes #) system which generated this result tra nsmitted reference range : <=0.8. The reference r celio was not used to int erpret this result as normal/abnormal . [facility] CenterRkfbdecRDOBSBMUJC1281-27-59 07:23:00 Test Item Value Reference Range Interpretation Comments Eosinophils # (test code 0.1 See_Comment [A utomated message] The = Eosinophils #) system whic h generated this result tra nsmitted reference range : <=0.5. The reference r celio was not used to int erpret this result as normal/abnormal . [facility] CenterPrrtbfeRCJTSTNLAW1884-27-40 07:23:00 Test Item Value Reference Range Interpretation Comments Basophils # (test code 0.1 See_Comment [Aut omated message] The = Basophils #) system which generated this result tra nsmitted reference range : <=0.2. The reference r celio was not used to int erpret this result as normal/abnormal . [facility] CenterYuyekufDPRQNXJITI5300-59-73 07:23:00 Test Item Value Reference Range Interpretation Comments Segs-Bands # (test code = Segs-Bands #) 4.2 1.5-8.1 [facility] CenterHsbhuboUCNOXHJHBQ3315-10-36 07:23:00 Test Item Value Reference Range Interpretation Comments Lymphocytes (test code = Lymphocytes) 39.4 20.0-40.0 [facility] CenterEakechcDIGXJLBLOD8044-21-85 07:23:00 Test Item Value Reference Range Interpretation Comments Monocytes (test code = Monocytes) 6.9 2.0-12.0 [facility] CenterDbynaabZCVVAOYRYG2973-37-35 07:23:00 Test Item Value Reference Range Interpretation Comments Segs (test code = Segs) 51.3 45.0-75.0 [facility] CenterZrmybviYWSAOFHVGB2035-90-13 07:23:00 Test Item Value Reference Range Interpretation Comments MCV (test code = MCV) 88.1 81.0-99.0 [facility] CenterKfocgqoLPPTCAMBEB7206-03-71 07:23:00 Test Item Value Reference Range Interpretation Comments MCH (test code = MCH) 30.2 pg 27.0-31.0 [facility] CenterVtfqrhzWPNLPXGNFX7456-28-84 07:23:00 Test Item Value Reference Range Interpretation Comments MCHC (test code = MCHC) 34.3 32.0-36.0 [facility] CenterIxnilbuSZSJQMKSWU1788-51-68 07:23:00 Test Item Value Reference Range Interpretation Comments RDW (test code = RDW) 13.7 11.5-14.5 [facility] CenterIubklvhVGWPFRFBIY7613-33-06 07:23:00 Test Item Value Reference Range Interpretation Comments Platelet (test code = Platelet) 303 133-450 [facility] CenterPxfoxolOBFKGCXNDR7617-81-05 07:23:00 Test Item Value Reference Range Interpretation Comments MPV (test code = MPV) 8.6 7.4-10.4 [facility] CenterEwnmsiwHOEONXXEQC5190-69-03 07:23:00 Test Item Value Reference Range Interpretation Comments WBC X 10x3 (test code = WBC X 10x3) 8.2 3.7-10.4 [facility] CenterDsmrebeDOLWEWSQDE5064-35-68 07:23:00 Test Item Value Reference Range Interpretation Comments RBC X 10x6 (test code = RBC X 10x6) 4.79 4.20-5.40 [facility] CenterMowaylnEUQENTSWNU5203-02-40 07:23:00 Test Item Value Reference Range Interpretation Comments Hgb (test code = Hgb) 14.5 12.0-16.0 [facility] CenterTrqblisRHPQDYSSKA5125-17-08 07:23:00 Test Item Value Reference Range Interpretation Comments Hct (test code = Hct) 42.2 36.0-48.0 [facility] CenterRggjevkFTLYQXEOPO8207-81-66 07:23:00 Test Item Value Reference Range Interpretation Comments INR (test code = INR) 1.04 0.85-1.17 [facility] CenterPmroimgIXYBZYDYXK5958-21-38 07:23:00 Test Item Value Reference Range Interpretation Comments aPTT (test code = aPTT) 30.3 s 22.9-35.8 [facility] CenterLhdexuuCRFAEKIXMA4379-31-49 07:23:00 Test Item Value Reference Range Interpretation Comments PROTIME (test code = PROTIME) 13.5 s 12.0-14.7 [facility] [id number] 07:23:00 Test Item Value Reference Range Interpretation Comments Hep B Core IgM (test Negative *NA*(11/27/2013 code = Hep B Core 01:23:00 IgM) [facility]) [id number] 07:23:00 Test Item Value Reference Range Interpretation Comments Hep C Ab (test code = Negative *NA*(11/27/2013 Hep C Ab) 01:23:00 [facility]) [facility] [id number] 07:23:00 Test Item Value Reference Range Interpretation Comments Hep A IgM (test code Negative *NA*(11/27/2013 = Hep A IgM) 01:23:00 [place]) [facility] [id number] 07:23:00 Test Item Value Reference Range Interpretation Comments Hep Bs Ag (test code Negative *NA*(11/27/2013 = Hep Bs Ag) 01:23:00 [place]) [id number] 07:23:00 Test Item Value Reference Range Interpretation Comments VLDL (test code = VLDL) 27 [facility] [id number] 07:23:00 Test Item Value Reference Range Interpretation Comments LDL (Calculated) (test code = LDL 127 (Calculated)) [facility] [id number] 07:23:00 Test Item Value Reference Range Interpretation Comments HDL (test code = HDL) 50 [facility] [id number] 07:23:00 Test Item Value Reference Range Interpretation Comments Trig (test code = Trig) 134 [facility] [id number] 07:23:00 Test Item Value Reference Range Interpretation Comments Chol (test code = Chol) 204 [facility] [id number] 07:23:00 Test Item Value Reference Range Interpretation Comments CHD Risk (test code = CHD Risk) 4.08 3.90-5.80 [facility] [id number] 17:00:00 Test Item Value Reference Range Interpretation Comments ALANINE AMINOTRANSFERASE 204 See_Comment [A utomated message] (test code = ALANINE The sys tem which AMINOTRANSFERASE) generated this result transmitted ref erence range: <=65. Th e reference range was not used to int erpret this result as normal/abnormal . [facility] [id number] 17:00:00 Test Item Value Reference Range Interpretation Comments ASPARTATE TRANSAMINASE 70 See_Comment [Aut omated message] (test code = ASPARTATE The s ystem which TRANSAMINASE) generated this result transmitted ref erence range: <=37. Th e reference range was not used to interpr et this result as normal/abnormal . [facility] [id number] 17:00:00 Test Item Value Reference Range Interpretation Comments Alk Phos (test code = Alk Phos) 109 39-136 [facility] [id number] 17:00:00 Test Item Value Reference Range Interpretation Comments Albumin Lvl (test code = Albumin Lvl) 3.6 3.5-5.0 [facility] [id number] 17:00:00 Test Item Value Reference Range Interpretation Comments Bili Total (test code = Bili Total) 0.4 0.2-1.3 [facility] [id number] 17:00:00 Test Item Value Reference Range Interpretation Comments Bili Direct (test code 0.1 See_Comment [Aut omated message] The = Bili Direct) system which generated this result tra nsmitted reference range : <=0.3. The reference r celio was not used to int erpret this result as dequan l/abnormal. [facility]2014-03-06 17:00:00 Test Item Value Reference Range Interpretation Comments Total Protein (test code = Total 6.9 6.4-8.4 Protein) [place] [id number] 17:00:00 Test Item Value Reference Range Interpretation Comments A/G Ratio (test code = A/G Ratio) 1.1 0.7-1.6 [place] [id number] 17:00:00 Test Item Value Reference Range Interpretation Comments Bili Indirect (test 0.3 See_Comment [Automa blayne message] The code = Bili Indirect) system which generated this result tra nsmitted reference range : <=1.0. The reference r celio was not used to int erpret this result as normal/abnormal . [facility]2014-03-06 17:00:00 Test Item Value Reference Range Interpretation Comments Globulin (test code = Globulin) 3.3 2.0-4.0 [facility]2014-03-06 17:00:00 Test Item Value Reference Range Interpretation Comments ALANINE AMINOTRANSFERASE 204 See_Comment [A utomated message] (test code = ALANINE The sys tem which AMINOTRANSFERASE) generated this result transmitted ref erence range: <=65. Th e reference range was not used to int erpret this result as normal/abnormal . [facility]2014-03-06 17:00:00 Test Item Value Reference Range Interpretation Comments Albumin Lvl (test code = Albumin Lvl) 3.6 3.5-5.0 [facility]2014-03-06 17:00:00 Test Item Value Reference Range Interpretation Comments Alk Phos (test code = Alk Phos) 109 39-136 [facility]2014-03-06 17:00:00 Test Item Value Reference Range Interpretation Comments Bili Total (test code = Bili Total) 0.4 0.2-1.3 [place] [id number] 17:00:00 Test Item Value Reference Range Interpretation Comments ASPARTATE TRANSAMINASE 70 See_Comment [Aut omated message] (test code = ASPARTATE The s ystem which TRANSAMINASE) generated this result transmitted ref erence range: <=37. Th e reference range was not used to interpr et this result as normal/abnormal . [employer] [id number] 17:00:00 Test Item Value Reference Range Interpretation Comments Total Protein (test code = Total 6.9 6.4-8.4 Protein) [facility] [id number] 17:00:00 Test Item Value Reference Range Interpretation Comments B/C Ratio (test code = B/C Ratio) 13 6-25 [facility] [id number] 17:00:00 Test Item Value Reference Range Interpretation Comments Globulin (test code = Globulin) 3.3 2.0-4.0 [facility] [id number] 17:00:00 Test Item Value Reference Range Interpretation Comments A/G Ratio (test code = A/G Ratio) 1.1 0.7-1.6 [facility] [id number] 17:00:00 Test Item Value Reference Range Interpretation Comments UDS Note (test code = See Note UDS Note) 7*NA*(11/26/2013 11:00:00 [place]) [facility] [id number] 17:00:00 Test Item Value Reference Range Interpretation Comments U Opiate Scr (test Negative code = U Opiate Scr) *NA*(11/26/2013 11:00:00 [place]) [facility] [id number] 17:00:00 Test Item Value Reference Range Interpretation Comments U Phencyc Scr (test Negative code = U Phencyc Scr) *NA*(11/26/2013 11:00:00 [place]) [facility] [id number] 17:00:00 Test Item Value Reference Range Interpretation Comments U Cocaine Scr (test Negative code = U Cocaine Scr) *NA*(11/26/2013 11:00:00 [place]) [facility] [id number] 17:00:00 Test Item Value Reference Range Interpretation Comments U Cannab Scr (test Negative code = U Cannab Scr) *NA*(11/26/2013 11:00:00 [place]) [facility] [id number] 17:00:00 Test Item Value Reference Range Interpretation Comments U Benzodia Scr (test Negative code = U Benzodia Scr) *NA*(11/26/2013 11:00:00 [place]) [facility] [id number] 17:00:00 Test Item Value Reference Range Interpretation Comments U Toshia Scr (test code Negative *NA*(11/26/2013 = U Toshia Scr) 11:00:00 [place]) [facility] [id number] 17:00:00 Test Item Value Reference Range Interpretation Comments U Amph Scr (test code Negative *NA*(11/26/2013 = U Amph Scr) 11:00:00 [place] [id number] 17:00:00 Test Item Value Reference Range Interpretation Comments Hgb A1C (test code = Hgb A1C) 10.4 [facility] AND [id number] 17:00:00 Test Item Value Reference Range Interpretation Comments UA Urobilinogen (test code = UA <=1.0 mg/dL 0.1-1.0 Urobilinogen) [facility] AND [id number] 17:00:00 Test Item Value Reference Range Interpretation Comments UA RBC (test code = 6 See_Comment [Automa blayne message] The UA RBC) system which ge nerated this result transmit blayne reference range : <=2. The reference range was not used to interpr et this result as dequan l/abnormal. [facility] [id number] 17:00:00 Test Item Value Reference Range Interpretation Comments UA Bacteria (test code = UA Occasional /HPF Bacteria) [facility] AND [id number] 17:00:00 Test Item Value Reference Range Interpretation Comments UA Ketones (test code = UA Negative mg/dL Ketones) [facility] AND [id number] 17:00:00 Test Item Value Reference Range Interpretation Comments UA Turbidity (test code = Clear (11/26/2013 UA Turbidity) 11:00:00 [facility]/[place]) [facility] AND [id number] 17:00:00 Test Item Value Reference Range Interpretation Comments UA Spec Grav (test code = UA Spec Grav) 1.017 [facility] AND [id number] 17:00:00 Test Item Value Reference Range Interpretation Comments UA pH (test code = UA pH) 7.5 5.0-8.0 [facility] AND [id number] 17:00:00 Test Item Value Reference Range Interpretation Comments UA Protein (test code = UA Negative mg/dL Protein) [facility] AND [id number] 17:00:00 Test Item Value Reference Range Interpretation Comments UA Glucose (test code = UA >=1000 mg/dL Glucose) [facility] AND [id number] 17:00:00 Test Item Value Reference Range Interpretation Comments UA Sq Epi (test code = UA Sq Occasional /LPF Epi) [facility] AND [id number] 17:00:00 Test Item Value Reference Range Interpretation Comments UA WBC (test code = 2 See_Comment [Automa blayne message] The UA WBC) system which ge nerated this result transmit blayne reference range : <=5. The reference range was not used to interpr et this result as dequan l/abnormal. [facility] AND [id number] 17:00:00 Test Item Value Reference Range Interpretation Comments UA Bili (test code = Negative *NA*(11/26/2013 UA Bili) 11:00:00 [place]) [facility] AND [id number] 17:00:00 Test Item Value Reference Range Interpretation Comments UA Blood (test code = Trace *ABN*(11/26/2013 UA Blood) 11:00:00 [place]) [facility] AND [id number] 17:00:00 Test Item Value Reference Range Interpretation Comments UA Nitrite (test code Negative (11/26/2013 = UA Nitrite) 11:00:00 [place]) [facility] AND [id number] 17:00:00 Test Item Value Reference Range Interpretation Comments UA Leuk Est (test Negative (11/26/2013 code = UA Leuk Est) 11:00:00 [place]) [facility] AND [id number] 17:00:00 Test Item Value Reference Range Interpretation Comments UA Color (test code = Light Yellow UA Color) *NA*(11/26/2013 11:00:00 [place]) [facility]
[2022-06-06] MEDS ORDERED: MAGNES/ALUMIN/SIMET 30ML UCUP ONE (12:43)
[2022-06-06] MEDS ORDERED: ONDANSETRON 4 MG/2 ML VIAL ONE (12:43)
[2022-06-06] MEDS ORDERED: PANTOPRAZOLE 40 MG INJ ONE (12:43)
[2022-06-06] MEDS ORDERED: NA CHLORIDE 0.9% 1,000 ML ONE (12:43)
[2022-06-06] MEDS ORDERED: LIDOCAINE VISCOUS 2% SOLN 15 ML UDC ONE (12:44)
[2022-06-06 13:10] LABS: Absolute Lymphocytes (CBC) 2.5 K/uL (0.7-4.9); Hematocrit 42.2 % (36.0-45.0); Lymphocytes % 36.6 % (15.3-44.8); MCV 89.6 fL (80-100); MPV 7.7 fL (7.6-11.3); RBC Red Blood Cell Count 4.71 M/uL (3.86-4.86)
[2022-06-06 13:25] LABS: Albumin 4.1 g/dL (3.4-5.0); Bilirubin Total 0.2 mg/dL (0.2-1.0); Potassium 3.5 mmol/L (3.5-5.1); Protein, Total 7.9 g/dL (6.4-8.2)
[2022-06-06] MEDS ORDERED: FAMOTIDINE 20 MG/2 ML VIAL IV ONE (14:14)
[2022-06-06] MEDS ORDERED: DIPHENHYDRAMINE 50 MG/ML VIAL ONE (14:14)
[2022-06-06] MEDS ORDERED: METHYLPREDNISOLONE 125 MG INJ ONE (14:14)
[2022-06-06] MEDS ORDERED: EPINEPHRINE/PF 1 MG/ML AMP ONE (14:15)
--- NOTE | 2022-06-06 14:18 | RAD REPORT ---
EXAM DESCRIPTION: CTAbdomen Pelvis W Contrast - 06/06/2022 2:00 pm CLINICAL HISTORY: abd pain COMPARISON: No comparisons TECHNIQUE: CT of the abdomen and pelvis was performed. All CT scans are performed using dose optimization technique as appropriate and may include automated exposure control or mA/KV adjustment according to patient size. FINDINGS: Lower chest: No acute abnormality. Liver: No acute abnormality or suspicious lesions. Biliary: Cholecystectomy Stomach: No significant focal abnormality. Duodenum: No significant focal abnormality. Pancreas: No significant abnormality. Spleen: No significant abnormality. Adrenal: No suspicious lesions. Kidney/ureter: No hydronephrosis. No renal calculi. Retroperitoneum: No retroperitoneal adenopathy. Vascular: No aneurysm. Bowel: Normal appendix. Moderate stool in the proximal colon. No bowel obstruction.. Peritoneum: No ascites or free air. Bladder: Grossly unremarkable. Reproductive: No adnexal masses. Bones: No acute fracture. Other: n/a IMPRESSION: No acute intra-abdominal or pelvic finding. Normal appendix.
--- NOTE | 2022-06-06 16:06 | EDPHYS ---
Physician Documentation [facility] Name: Amparo Franco Age: 57 yrs Sex: Female : 1965 Arrival Date: 06/06/2022 Time: 10:52 Bed 27 Private MD: ED Physician Chadd Lloyd HPI: 06/06 16:00 This 57 yrs old Female presents to ER via Ambulatory with complaints of rn Abdominal Pain. 16:00 The patient presents with abdominal pain in the epigastric area. Onset: The rn symptoms/episode began/occurred 1 week(s) ago. The symptoms do not radiate. Associated signs and symptoms: Pertinent negatives: nausea and vomiting, diarrhea, dysuria, fever, hematuria, shortness of breath, vomiting, vomiting blood. The symptoms are described as achy, constant. Modifying factors: The symptoms are alleviated by nothing, the symptoms are aggravated by food. Severity of pain: At its worst the pain was moderate in the emergency department the pain is unchanged. The patient has experienced similar episodes in the past. The patient has been recently seen by a physician:. Pt reports abd pain, epigastric, worse with food, not assoc with vomiting/diarrhea/blood in stool. Just seen at another ER this past week for this, given antacids and told "everything ok". Gallbladder removed in past.. Historical: - Allergies: 11:53 Advil; vg1 11:53 Cipro; vg1 11:53 Morphine; vg1 11:53 tramadol; vg1 17:14 IV contrast; kb3 - Home Meds: 11:53 Omeprazole Oral [Active]; Metoclopramide Oral [Active]; Aspirin Oral [Active]; baclofen vg1 Oral [Active]; gabapentin oral [Active]; pravastatin 40 mg Oral tab 1 tab once daily [Active]; topiramate oral [Active]; - PMHx: 11:53 CVA; Depression; Diabetes - NIDDM; Hyperlipidemia; Hypertension; vg1 - Immunization history:: Client reports receiving the 2nd dose of the Covid vaccine. - Social history:: Smoking status: Patient denies any tobacco usage or history of. - Family history:: not pertinent. - Hospitalizations: : No recent hospitalization is reported. ROS: 16:00 Constitutional: Negative for fever, chills, and weight loss, Eyes: Negative for injury, rn pain, redness, and discharge, Neck: Negative for injury, pain, and swelling, Cardiovascular: Negative for chest pain, palpitations, and edema, Respiratory: Negative for shortness of breath, cough, wheezing, and pleuritic chest pain, Abdomen/GI: + abd pain, neg for blood in stool/vomiting/diarrhea Back: Negative for injury and pain, MS/Extremity: Negative for injury and deformity, Skin: Negative for injury, rash, and discoloration, Neuro: Negative for headache, weakness, numbness, tingling, and seizure. Exam: 12:06 ECG was reviewed by the Attending Physician. rn 16:00 Constitutional: This is a well developed, well nourished patient who is awake, alert, rn and in no acute distress. Head/Face: Normocephalic, atraumatic. Cardiovascular: Regular rate and rhythm. No pulse deficits. Respiratory: No increased work of breathing, no retractions or nasal flaring. Abdomen/GI: soft, + epigastric tenderness, no rebound Skin: Warm, dry MS/ Extremity: Pulses equal, no cyanosis. Neuro: Awake and alert, GCS 15 Vital Signs: 11:50 BP 139 / 82; Pulse 70; Resp 16; Temp 98.1(TE); Pulse Ox 100% on R/A; Weight 77.11 kg; vg1 Height 4 ft. 10 in. (147.32 cm); Pain 10/10; 12:22 BP 137 / 87; Pulse 66; Resp 16; Pulse Ox 99% ; Weight 72.57 kg; Height 4 ft. 10 in. ph (147.32 cm); Pain 7/10; 14:08 BP 167 / 91; Pulse 101; Resp 24; Pulse Ox 100% ; kb3 14:30 BP 136 / 81; Pulse 93; Resp 20; Pulse Ox 100% ; kb3 15:00 BP 114 / 62; Pulse 70; Resp 18; Pulse Ox 100% ; kb3 15:30 BP 121 / 75; Pulse 67; Resp 16; Pulse Ox 97% ; kb3 17:00 BP 118 / 72; Pulse 64; Resp 16; Pulse Ox 94% ; kb3 12:22 Body Mass Index 33.44 (72.57 kg, 147.32 cm) ph MDM: 12:06 Patient medically screened. rn 16:00 Differential diagnosis: cholecystitis, Cholelithiasis, gastritis, gastroesophageal rn reflux disease, non-specific abd pain, pancreatitis, Peptic Ulcer Disease. Data reviewed: vital signs, nurses notes, lab test result(s), radiologic studies, CT scan, and as a result, I will discharge patient. Counseling: I had a detailed discussion with the patient and/or guardian regarding: the historical points, exam findings, and any diagnostic results supporting the discharge/admit diagnosis, lab results, radiology results, the need for outpatient follow up, to return to the emergency department if symptoms worsen or persist or if there are any questions or concerns that arise at home. Response to treatment: the patient's symptoms have mildly improved after treatment, and as a result, I will discharge patient. Special discussion: Based on the patient's Hx, exam, and Dx evaluation, there is no indication for emergent surgery or inpatient Tx. It is understood by the patient/guardian that if the Sx's persist or worsen they need to return immediately for re-evaluation. I discussed with the patient/guardian in detail that at this point there is no indication for admission to the hospital. It is understood, however, that if the symptoms persist or worsen the patient needs to return immediately for re-evaluation. Based on the history and exam findings, there is no indication for further emergent testing or inpatient evaluation. I discussed with the patient/guardian the need to see the flat knitter for further evaluation of the symptoms. ED course: Pt improved, had an allergic reaction to IV contrast in CT, had rash and itching, facial swelling, given medication here including epinephrine, with resolution. Monitored here for allergic reaction. Had neg ct abdomen. Will dc home with return precautions. . 06/06 12:17 Order name: CBC with Diff; Complete Time: 14:59 rn 06/06 12:17 Order name: CMP; Complete Time: 14:59 rn 06/06 12:17 Order name: Lipase; Complete Time: 14:59 rn 06/06 12:17 Order name: CT Abd/Pelvis - IV Contrast Only; Complete Time: 14:59 rn 06/06 12:17 Order name: IV Saline Lock; Complete Time: 13:01 rn 06/06 12:17 Order name: Labs collected and sent; Complete Time: 13:01 rn EC:06 Rate is 72 beats/min. Rhythm is regular. QRS [place] is Normal. DE interval is normal. QRS rn interval is normal. QT interval is normal. No Q waves. T waves are Normal. No ST changes noted. Clinical impression: Normal ECG. Interpreted by me. Reviewed by me. Administered Medications: 12:55 Drug: NS 0.9% 1000 ml Route: IV; Rate: 1 bolus; Site: left forearm; ph 16:21 Follow up: Response: No adverse reaction; IV Status: Completed infusion; IV Intake: kb3 1000ml 12:55 Drug: Zofran (Ondansetron) 4 mg Route: IVP; Site: left forearm; ph 16:21 Follow up: Response: No adverse reaction kb3 13:01 Drug: ProTONIX (pantoprazole) 40 mg Route: IVP; Site: left forearm; ph 16:21 Follow up: Response: No adverse reaction kb3 13:01 Drug: GI Cocktail without - (Maalox Suspension 30 ml, Lidocaine Liquid 2 % 15 ph ml) Route: PO; 16:21 Follow up: Response: No adverse reaction kb3 14:15 Drug: Benadryl (diphenhydrAMINE) 50 mg Route: IVP; Site: right antecubital; kb3 16:20 Follow up: Response: No adverse reaction kb3 14:15 Drug: Pepcid (famotidine) 20 mg Route: IVP; Site: right antecubital; kb3 16:20 Follow up: Response: No adverse reaction kb3 14:15 Drug: SOLU-Medrol (methylPrednisoLONE) 125 mg Route: IVP; Site: right antecubital; kb3 16:20 Follow up: Response: No adverse reaction kb3 14:15 Drug: EPINEPHrine 1mg/mL 1:1,000 0.3 ml Route: Sub-Q; Site: right thigh; kb3 16:20 Follow up: Response: No adverse reaction kb3 Disposition Summary: 06/06/22 16:05 Discharge Ordered Location: Home rn Problem: new rn Symptoms: have improved rn Condition: Stable rn Diagnosis - Acute gastritis without bleeding rn - Upper abdominal pain, unspecified rn Followup: rn - With: Bryant Loya MD - When: As needed - Reason: Recheck today's complaints, Re-evaluation by your physician Discharge Instructions: - Discharge Summary Sheet rn - Abdominal Pain, Adult rn - Gastritis, Adult rn - Gastroesophageal Reflux Disease, Adult rn Forms: - Medication Reconciliation Form rn - Thank You Letter rn - 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
--- NOTE | 2022-06-06 16:06 | ER ---
Nurse's Notes [facility] Name: Amparo Franco Age: 57 yrs Sex: Female : 1965 Arrival Date: 06/06/2022 Time: 10:52 Bed 27 Private MD: Diagnosis: Acute gastritis without bleeding;Upper abdominal pain, unspecified Presentation: 06/06 11:50 Chief complaint: Patient states: Pt c/o Epigastric pain that moves over to LUQ and vg1 radiates up to chest x 2 days, also states headache and nausea. Coronavirus screen: Vaccine status: Patient reports receiving the 2nd dose of the covid vaccine. Client denies travel out of the [place] in the last 14 days. Ebola Screen: Patient denies exposure to infectious person. Patient denies travel to an Ebola-affected area in the 21 days before illness onset. Initial Sepsis Screen: Does the patient meet any 2 criteria? No. Patient's initial sepsis screen is negative. Does the patient have a suspected source of infection? No. Patient's initial sepsis screen is negative. Risk Assessment: Do you want to hurt yourself or someone else? Patient reports no desire to harm self or others. Onset of symptoms was June 04, 2022. 11:50 Method Of Arrival: Ambulatory vg1 11:50 Acuity: HARPREET 3 vg1 Triage Assessment: 11:53 General: Appears uncomfortable, Behavior is calm, cooperative. Pain: Complains of pain vg1 in head, ABD, chest Pain currently is 10 out of 10 on a pain scale. Neuro: Level of Consciousness is awake, alert, obeys commands, Oriented to person, place, time, situation. Cardiovascular: Patient's skin is warm and dry. GI: Abdomen is flat, non-distended. Historical: - Allergies: 11:53 Advil; vg1 11:53 Cipro; vg1 11:53 Morphine; vg1 11:53 tramadol; vg1 17:14 IV contrast; kb3 - Home Meds: 11:53 Omeprazole Oral [Active]; Metoclopramide Oral [Active]; Aspirin Oral [Active]; baclofen vg1 Oral [Active]; gabapentin oral [Active]; pravastatin 40 mg Oral tab 1 tab once daily [Active]; topiramate oral [Active]; - PMHx: 11:53 CVA; Depression; Diabetes - NIDDM; Hyperlipidemia; Hypertension; vg1 - Immunization history:: Client reports receiving the 2nd dose of the Covid vaccine. - Social history:: Smoking status: Patient denies any tobacco usage or history of. - Family history:: not pertinent. - Hospitalizations: : No recent hospitalization is reported. Screenin:22 Abuse screen: Denies threats or abuse. Denies injuries from another. Nutritional ph screening: No deficits noted. Tuberculosis screening: No symptoms or risk factors identified. Fall Risk None identified. Assessment: 12:22 General: Received care of pt ambulatory from [facility]. Pt in no distress. Dr Lloyd at bedside. Pt reports intermittent epigastric pain and nausea x2 weeks, worse over the last 2 days. Pt also reports intermittent constipation. 12:25 GI: Bowel sounds present X 4 quads. Abd is soft Abdomen is tender to palpation in kb3 epigastric area, right upper quadrant and left upper quadrant. 13:15 General: Pt reports pain with IVF infusing. Unable to aspirte blood. IV removed. ph 14:00 General: PT returned from CT with hives and redness to right side of neck and jaw. Pt kb3 reports severe itching. No respiratory distress noted. Placed on all monitors. Dr Lloyd at bedside. Administered medications without incident. Warm blankets provided. Pt's spouse reports that she has had this type of reaction before when eating seafood. Educated pt and spouse regarding IV contrast allergy must be reported in the future due to today's reaction. 14:41 General: Pt resting quietly. Spouse at bedside. kb3 14:44 General: PT ambulatory to restroom with stand-by assist. No difficulty. kb3 15:58 General: Pt's leaving to go eat and will return shortly. Available by phone if kb3 needed. 17:00 General: Pt resting comfortably. Spouse has returned. Informed of pending discharge. kb3 Vital Signs: 11:50 BP 139 / 82; Pulse 70; Resp 16; Temp 98.1(TE); Pulse Ox 100% on R/A; Weight 77.11 kg; vg1 Height 4 ft. 10 in. (147.32 cm); Pain 10/10; 12:22 BP 137 / 87; Pulse 66; Resp 16; Pulse Ox 99% ; Weight 72.57 kg; Height 4 ft. 10 in. ph (147.32 cm); Pain 7/10; 14:08 BP 167 / 91; Pulse 101; Resp 24; Pulse Ox 100% ; kb3 14:30 BP 136 / 81; Pulse 93; Resp 20; Pulse Ox 100% ; kb3 15:00 BP 114 / 62; Pulse 70; Resp 18; Pulse Ox 100% ; kb3 15:30 BP 121 / 75; Pulse 67; Resp 16; Pulse Ox 97% ; kb3 17:00 BP 118 / 72; Pulse 64; Resp 16; Pulse Ox 94% ; kb3 12:22 Body Mass Index 33.44 (72.57 kg, 147.32 cm) ph ED Course: 10:52 Patient arrived in ED. rg4 11:53 Triage completed. vg1 11:53 Arm band placed on. vg1 12:06 Chadd Lloyd MD is Attending Physician. rn 12:22 Bertha Cabral RN is Primary Nurse. ph 12:22 Patient has correct armband on for positive identification. Bed in low position. Call ph light in reach. Side rails up X 1. 12:22 No provider procedures requiring assistance completed. ph 12:50 Inserted saline lock: 20 gauge in left forearm, using aseptic technique. Blood ph collected. 13:[address] via wheelchair. ph 13:49 Inserted saline lock: 20 gauge in right antecubital area, using aseptic technique. ss ,using aseptic technique. Inserted VIA ultrasound guided. Blood collected. 14:02 CT Abd/Pelvis - IV Contrast Only In Process Unspecified. EDMS 16:04 Bryant Loya MD is Referral Physician. rn 17:05 IV discontinued, intact, bleeding controlled, No redness/swelling at site. kb3 Administered Medications: 12:55 Drug: NS 0.9% 1000 ml Route: IV; Rate: 1 bolus; Site: left forearm; ph 16:21 Follow up: Response: No adverse reaction; IV Status: Completed infusion; IV Intake: kb3 1000ml 12:55 Drug: Zofran (Ondansetron) 4 mg Route: IVP; Site: left forearm; ph 16:21 Follow up: Response: No adverse reaction kb3 13:01 Drug: ProTONIX (pantoprazole) 40 mg Route: IVP; Site: left forearm; ph 16:21 Follow up: Response: No adverse reaction kb3 13:01 Drug: GI Cocktail without - (Maalox Suspension 30 ml, Lidocaine Liquid 2 % 15 ph ml) Route: PO; 16:21 Follow up: Response: No adverse reaction kb3 14:15 Drug: Benadryl (diphenhydrAMINE) 50 mg Route: IVP; Site: right antecubital; kb3 16:20 Follow up: Response: No adverse reaction kb3 14:15 Drug: Pepcid (famotidine) 20 mg Route: IVP; Site: right antecubital; kb3 16:20 Follow up: Response: No adverse reaction kb3 14:15 Drug: SOLU-Medrol (methylPrednisoLONE) 125 mg Route: IVP; Site: right antecubital; kb3 16:20 Follow up: Response: No adverse reaction kb3 14:15 Drug: EPINEPHrine 1mg/mL 1:1,000 0.3 ml Route: Sub-Q; Site: right thigh; kb3 16:20 Follow up: Response: No adverse reaction kb3 Medication: 12:22 VIS not applicable for this client. ph Intake: 16:21 IV: 1000ml; Total: 1000ml. kb3 Outcome: 16:05 Discharge ordered by . rn 17:15 Discharged to home via wheelchair. kb3 17:15 Condition: stable 17:15 Discharge instructions given to patient, significant other, Instructed on discharge instructions, follow up and referral plans. medication usage, Demonstrated understanding of instructions, follow-up care, medications, Prescriptions given X 2. 17:16 Patient left the ED. kb3 Signatures: Dispatcher [employer] EDMS Chadd Lloyd MD MD rn Smirch, Shelby RN RN Bertha Abdul RN RN ph Garcia, Rubi rg4 Nubia Valles, RN RN vg1 Cherise Yung, RN RN kb3
[2022-06-07 05:52] VITALS: TEMP 98.1
[2022-06-07 06:05] VITALS: BP 118/72; O2SAT 94
== END 2022-06-06 17:16 | disposition home or self-care (01) ==
LOC: ER 10:50
DX: K29.00 Acute gastritis without bleeding (principal); I10 Essential (primary) hypertension; E11.9 Type 2 diabetes mellitus without complications; Z88.1 Allergy status to other antibiotic agents; Z88.5 Allergy status to narcotic agent; Z88.6 Allergy status to analgesic agent; Z91.041 Radiographic dye allergy status
CPT/HCPCS: 85025; 36415; 83690; 80053; 74177; 96372; 99284; Q9967; J0171; J1200; C9113; J7030; J2930; J2405; 93005

== ENCOUNTER 2022-06-09 15:50 | Emergency (ER) | payer MEDICARE, OTHER ==
--- OUTSIDE RECORDS SUMMARY | 2022-06-09 16:05 | XMS REPORT | Continuity of Care Document ---
:1965 Author Organization [facility] t Address [address] [place] [address] Care Team Providers Name Role Phone LAKESHIA MATHIS Primary Care Physician Unavailable ROBSON MURILLO Attending Clinician Unavailable LAKESHIA MATHIS Attending Clinician Unavailable MANN PERDOMO Attending Clinician Unavailable MANN PERDOMO Attending Clinician Unavailable Lakeshia Mathis MD Attending Clinician [phone] Lester Monge MD Attending Clinician 2, [...] Number Effective Date Expiration Date Ryan ortiz [facility] WELLMED [id number] 2021 00:00:00 WELLMED/AARP [id number] 2020 00:00:00 [employer] ADV CHOICE PPO Problems [...] pain 228 ity of syndrome syndrome 00:00: [place] [facility] Obesity Obesity Disease Active Univers (BMI (BMI 5-20 ity of 30-39.9) 30-39.9) 00:00: [place] [address] Medical Branch Encounter Encounter Disease Active Overview: Univers for for 01-21 Formattin ity of complete complete 00:00: g of this [place] as eye exam eye exam 00 note Medica l might be Branch different from the original. Added automatic ally from request for surgery [id number] Epigastric Epigastric Disease Active Overview : Univers pain pain 01-21 Formattin ity of 00:00: g of this [place] 00 note Medical might be Branch different from the original. Added automatic ally from request for surgery [id number] Chronic Chronic Disease Active 2017-09 Univers endometrit [...] 2016-09 U nivers 2-27 ity of 00:00: [place] 00 Medical Branch Type 2 Type 2 Disease Active Univers diabetes diabetes 9-25 ity of mellitus mellitus 00:00: [place] without without 00 Medical complicati complicati Br anch on, on, without without long-term long-term current current use of use of insulin insulin Essential Essential Disease Active Uni vers hypertensi hypertensi - it y of on on 00:00: [place] 00 Medical Branch JAMSHID JAMSHID Disease Active Univers (obstructi (obstructi 06-17 it y of ve sleep ve sleep 00:00: [place] apnea) apnea) 00 Medical Branch Hemiplegia Hemiplegia Disease Active U nivers affecting affecting 7-11 ity of right [place] Medical right-kala right-kala Br [place] espinoza doran patient as patient as late 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 LWOT LWOT Diagnosis Active 2014-03-21 Mem oria Active 03-19 02:43:00 l 03/19/2014 00:00: Gerardo zafar [address] STROKE STROKE Diagnosis Active 2014-03-18 Me moria LIKE LIKE 03-17 06:12:00 l SYMPTOMS SYMPTOMS 00:00: Gerardo zafar Active 00 03/17/2014 [facility] STROKE STROKE Diagnosis Active 2015-09-14 Me moria LIKE LIKE 03-17 14:33:00 l SYMPTOMS, SYMPTOMS, 00:00: Yoni oliveira TIA TIA Active 03/17/2014 [facility] HEMORRHAGI HEMORRHAG Diagnosis Active 2015-09-14 Clare Moreno CVA IC CVA 06 14:34:00 l Active 00:00: Srikanth 11/26/2013 00 [facility] History of History of Problem Resolve [place] type 2 type 2 HL7.CCDAR2 d Physic i diabetes diabetes ans mellitus mellitus History of History of Problem Resolve UT [...] bral bral ans hemorrhage hemorrhage ) ) Mancini's Mancini's Problem Resolve 2017-06-17 Mem oria palsy palsy d 05:46:07 l (disorder) (disorder) He rmtee Resolved Problem 06/17/2017 [facility] OPIRobina Duke Cerebral Cerebral Problem Resolve 2017-06-17 Memoria infarction infarction d 05:46:07 l (disorder) (disorder) He rmtee Resolved Problem 06/17/2017 [facility] OPID [place] Gastritis Gastritis Problem Resolve 2017-06-17 Memoria and and d 05:46:07 l duodenitis duodenitis He jamal (disorder) (disorder) Resolved Problem 06/17/2017 [facility] OPID Srikanth 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 21:31:50 l occlusion occlusion Herm tee (disorder) (disorder) Resolved Problem 12/02/2013 [facility] Gastritis( Gastritis Problem Resolve 2013-12-02 Memoria Confirmed) (Confirmed d 21:31:50 l ) Resolved Gerardo n Problem 12/02/2013 [facility] CVA CVA Problem Resolve 2014-03-23 Jose Luis dennis (cerebral (cerebral d 20:08:30 l infarction infarction He rmann )(Confirme )(Confirme d) d) Resolved Problem 03/23/2014 [facility] Diabetes Diabetes Problem Active 2017-06-17 Memoria mellitus mellitus 05:46:07 l (disorder) (disorder) Vaibhav laddann Active Problem 06/17/2017 [facility] OPID Srikanth Dizziness Dizziness Problem Active 2017-06-17 Memoria (finding) (finding) 05:46:07 l Active Srikanth Problem 06/17/2017 [facility] OPID [place] Spastic Spastic Problem Active [facility] hemiparesi hemiparesi HL7.CCDAR2 Physici s of right s of right an s dominant dominant side side Seizure Seizure Problem Active 2017-06-17 Me moria (finding) (finding) 05:46:07 l Active [place] Problem 06/17/2017 [facility] OPIRobina Duke CVA CVA Diagnosis Active 2015-09-14 Mem oria Active 14:34:00 l [facility] Rehabilita tion TRANS TRANS Diagnosis Active 2015-09-14 Me moria CEREB CEREB 14:33:00 l ISCHEMIA ISCHEMIA Gerardo n NEC NEC Active [facility] History of Past Illness Condition Condition Condition Status Onset Resolution Last Treating Co mments Source Name Details Category Date Date Treatment Clinician Date Headache Headache Problem 2017-01-08 2017-01-08 Memoria 01/05/201701-05 01:04:01 01:04:01 l 05:00: Gerardo zafar [address] Allergies, Adverse Reactions, Alerts Allergy Allergy [...] 05-14 ity of 00:00: 00 Medical Branch morphine morphine Active Memori a l [place] traMADol traMADol Active Memori a l Srikanth Advil Advil Active Memoria l [place] Ciprodex Ciprodex Active Memori a <sup>1</ <sup>1</ l sup> sup> [place] Aleve drug Active UT TABS allergy Physici ans Morphine drug Active UT Derivati allergy Physici ves ans tramadol drug Active [facility] allergy Physici ans Family History Family Member Diagnosis Comments Start Date Stop Date Source Mother Family history of Unknown [facility] Physicians and unspecified causes of morbidity Father Family history of Unknown [facility] Physicians and unspecified causes of morbidity Social History Social Habit Start Date Stop Date Quantity Comments Source History [facility] o f Alcohol Std [place] Medical Drinks Branch History [facility] o f Alcohol Binge [place] [facility] al Branch History [facility] o f Alcohol Comment [place] [facility] ical Branch Exposure to 2022-05-14 2022-05-24 Not sure [facility] SARS-CoV-2 00:00:00 11:55:00 [place] [facility] (event) Branch Alcohol intake 2022-05-18 2022-05-18 Lifetime University of 00:00:00 00:00:00 non-drinker [place] [facility] (finding) Branch Tobacco use and 2022-04-02 2022-04-02 Smokeless tobacco Un iversity of exposure 00:00:00 00:00:00 non-user [place] [facility] History SDOH 2021-11-02 2021-11-02 1 University o f Alcohol Frequency 00:00:00 00:00:00 [place] M edical Branch Social History 2014-03-18 2014-03-18 [facility] sophia 20:46:33 20:46:33 [birth year] Universit y of 00:00:00 00:00:00 [facility] Smoking Status Start Date Stop Date Source Never smoked tobacco [facility] Medications Ordered Filled Start Stop Current Ordering Indication Dosage Frequency Signature Comments Components Source Medication Medication Date Date Medication? Clinician (SIG) Name Name metoclopram Yes [id number] 10mg Take 1 Univers rochelle HCl 8-31 tablet by ity of (REGLAN) 10 00:00: mouth [place] mg tablet 00 before Medical meals. Branch topiramate Yes [id number] 100mg Take 1 Univers 100 mg 8-26 tablet by ity of tablet 00:00: mouth 2 00 (two) Medical times Branch daily. baclofen 5 Yes [id number] 5mg Take 1 Univers mg tablet 8-26 9102 tablet by ity o f 00:00: mouth 3 (three) Medical times Branch daily. albuterol Yes [id number] 2{puff} Inhale 2 Univers 90 8-26 Puffs ity of mcg/actuati 00:00: every 6 [place] as on inhaler 00 (six) Medical hours as Branch needed for Wheezing or Shortness of Breath. omeprazole 0 Yes [id number] 40mg Take 2 U nivers 20 mg 8-26 capsules ity of capsule 00:00: [place] mouth 2 [place] 00 (two) Medical times Branch daily. pravastatin 0 Yes [id number] 10mg Take 1 Univers 10 mg 8-26 tablet by ity of tablet 00:00: mouth at [place] 00 bedtime. Medical Branch topiramate Yes [id number] 100mg Take 1 Univers 100 mg 8-26 tablet by ity of tablet 00:00: mouth 2 [place] 00 (two) Medical times Branch daily. baclofen 5 2021-0 Yes [id number] 5mg Take 1 Univers mg tablet 8-26 9102 tablet by ity o f 00:00: mouth 3 [place] 00 (three) Medical times Branch daily. albuterol 2021-0 Yes [id number] 2{puff} Inhale 2 Univers 90 8-26 Puffs ity of mcg/actuati 00:00: every 6 [place] as on inhaler 00 (six) Medical hours as Branch needed for Wheezing or Shortness of Breath. omeprazole 2022-0 Yes [id number] 40mg Take 2 U nivers 20 mg 8-26 capsules ity of capsule 00:00: by mouth 2 [place] 00 (two) Medical times Branch daily. pravastatin 202-0 Yes [id number] 10mg Take 1 Univers 10 mg 8-26 tablet by ity of tablet 00:00: mouth at [place] 00 bedtime. Medical Branch topiramate 2021-0 Yes [id number] 100mg Take 1 Univers 100 mg 8-26 tablet by ity of tablet 00:00: mouth 2 [place] 00 (two) Medical times Branch daily. baclofen 5 2021-0 Yes [id number] 5mg Take 1 Univers mg tablet 8-26 9102 tablet by ity o f 00:00: mouth 3 [place] 00 (three) Medical times Branch daily. albuterol 2021-0 Yes [id number] 2{puff} Inhale 2 Univers 90 8-26 Puffs ity of mcg/actuati 00:00: every 6 [place] as on inhaler 00 (six) Medical hours as Branch needed for Wheezing or Shortness of Breath. omeprazole 2021-0 Yes [id number] 40mg Take 2 U nivers 20 mg 8-26 capsules ity of capsule 00:00: by mouth 2 [place] 00 (two) Medical times Branch daily. pravastatin 2021-0 Yes [id number] 10mg Take 1 Univers 10 mg 8-26 tablet by ity of tablet 00:00: mouth at [place] 00 bedtime. Medical Branch ondansetron 2021-0 Yes [id number] 4mg Take 1 Univers 4 mg 8-21 tablet by ity of disintegrat 00:00: mouth [place] ing tablet 00 every 8 Medica l (eight) Branch hours as needed for Nausea and Vomiting (N/V). ondansetron 2021-0 Yes [id number] 4mg Take 1 Univers 4 mg 8-21 tablet by ity of disintegrat 00:00: mouth [place] ing tablet 00 every 8 Medica l (eight) Branch hours as needed for Nausea and Vomiting (N/V). ondansetron 2021-0 Yes [id number] 4mg Take 1 Univers 4 mg 8-21 tablet by ity of disintegrat 00:00: mouth [place] ing tablet 00 every 8 Medica l (eight) Branch hours as needed for Nausea and Vomiting (N/V). albuterol 2021- No [id number] 2{puff} Inhale 2 Univers sulfate 8-04 08-26 Puffs 4 ity of (PROAIR 00:00: 00:00 (four) [place] RESPICLICK) 00 :00 times Medical 90 daily as Branch mcg/actuati needed on AePB (SOBOE, wheezing). albuterol 2021- No [id number] 2{puff} Inhale 2 Univers sulfate 8-04 08-26 Puffs 4 ity of (PROAIR 00:00: 00:00 (four) [place] RESPICLICK) 00 :00 times Medical 90 daily as Branch mcg/actuati needed on AePB (SOBOE, wheezing). topiramate 2021- No [id number] 50mg Take 2 Univers 25 mg 8-02 08-26 tablets by ity of tablet 00:00: 00:00 mouth 2 [place] 00 :00 (two) Medical times Branch daily. topiramate 2021- No [id number] 50mg Take 2 Univers 25 mg 8-02 08-26 tablets by ity of tablet 00:00: 00:00 mouth 2 [place] 00 :00 (two) Medical times Branch daily. gabapentin 2021-0 Yes [id number] TAKE 4 Univers 300 mg 7-11 CAPSULES ity of capsule 00:00: BY MOUTH [place] 00 IN THE Medical MORNING Branch FOR PAIN AND 3 CAPSULES BY MOUTH AT NOON AND 3 CAPSULES BY MOUTH AT NIGHT FOR PAIN AND SLEEP. gabapentin 2021-0 Yes [id number] TAKE 4 Univers 300 mg 7-11 CAPSULES ity of capsule 00:00: BY MOUTH [place] 00 IN THE Medical MORNING Branch FOR PAIN AND 3 CAPSULES BY MOUTH AT NOON AND 3 CAPSULES BY MOUTH AT NIGHT FOR PAIN AND SLEEP. gabapentin 2021-0 Yes [id number] TAKE 4 Univers 300 mg 7-11 CAPSULES ity of capsule 00:00: BY MOUTH 00 IN THE Medical MORNING Branch FOR PAIN AND 3 CAPSULES BY MOUTH AT NOON AND 3 CAPSULES BY MOUTH AT NIGHT FOR PAIN AND SLEEP. lisinopriL 2021- No [id number] 10mg Take 1 Univers 10 mg 7-11 08-26 tablet by ity of tablet 00:00: 00:00 mouth [place] 00 :00 daily. [facility] Branch metFORMIN 2021- No [id number] 250mg Take 0.5 Univers (GLUCOPHAGE 04-02 tablets by i ty of ) 500 mg 00:00: 00:00 mouth [place] tablet 00 :00 every Medical morning. Branch lisinopriL 2021- No [id number] 10mg Take 1 Univers 10 mg 04-02 tablet by ity of tablet 00:00: 00:00 mouth [place] 00 :00 daily. Medical Branch metFORMIN 2021- No [id number] 250mg Take 0.5 Univers (GLUCOPHAGE 04-02 tablets by i ty of ) 500 mg 00:00: 00:00 mouth [place] tablet 00 :00 every Medical morning. Branch baclofen 5 2021- No [id number] 5mg Take 1 Univers mg tablet 01-05 9102 tablet by ity of 00:00: 00:00 mouth 3 [place] 00 :00 (three) Medical times Branch daily. baclofen 5 2021- No [id number] 5mg Take 1 Univers mg tablet 01-05 9102 tablet by ity of 00:00: 00:00 mouth 3 [place] 00 :00 (three) Medical times Branch daily. blood sugar Yes [id number] Check Univers diagnostic 3-07 blood ity of strip 00:00: sugar 2 [place] 00 times a Medical day. Branch E11.9. Brand per insurance. blood sugar 0 Yes [id number] Check Univers diagnostic 3-07 blood ity of strip 00:00: sugar 2 [place] 00 times a Medical day. Branch E11.9. Brand per insurance. blood sugar 0 Yes [id number] Check Univers diagnostic 3-07 blood ity of strip 00:00: sugar 2 [place] 00 times a Medical day. Branch E11.9. Brand per insurance. Blood-Gluco 2021-0 Yes [id number] Check Univers se Meter 3-04 sugars 2 ity of Kit 00:00: times a [place] 00 day. Dx. Medical Code E11.9 Branch Brand per Insurance Lancets 2021-0 Yes [id number] Check Univ ers Misc 3-04 blood ity of 00:00: sugar 2 [place] 00 times a Medical day. Branch E11.9. Brand per insurance. Blood-Gluco 2021-0 Yes [id number] Check Univers se Meter 3-04 sugars 2 ity of Kit 00:00: times a 00 day. Dx. Medical Code E11.9 Branch Brand per Insurance Lancets 0 Yes [id number] Check Univ ers Misc 3-04 blood ity of 00:00: sugar 2 [place] 00 times a Medical day. Branch E11.9. Brand per insurance. Blood-Gluco 2021-0 Yes [id number] Check Univers se Meter 3-04 sugars 2 ity of Kit 00:00: times a 00 day. Dx. Medical Code E11.9 Branch Brand per Insurance Lancets 0 Yes [id number] Check Univ ers Misc 3-04 blood ity of 00:00: sugar 2 00 times a Medical day. Branch E11.9. Brand per insurance. pravastatin 2020-09- No [id number] 10mg Take 1 Univers 10 mg 2-26 tablet by ity of tablet 00:00: 00:00 mouth at [place] 00 :00 bedtime. Medical Branch pravastatin 2020-09- No [id number] 10mg Take 1 Univers 10 mg 2-26 tablet by ity of tablet 00:00: 00:00 mouth at [place] 00 :00 bedtime. Medical Branch terbinafine 2020-09 Yes [id number] Apply to Univers HCL 1 % 0-27 area(s) 2 ity of cream 00:00: (two) [place] 00 times Medical daily. Branch terbinafine 2020-09 Yes [id number] Apply to Univers HCL 1 % 0-27 area(s) 2 ity of cream 00:00: (two) [place] 00 times Medical daily. Branch terbinafine 2020-09 Yes [id number] Apply to Univers HCL 1 % 0-27 area(s) 2 ity of cream 00:00: (two) [place] 00 times Medical daily. Branch omeprazole 2020-09- No [id number] 20mg Take 1 Univers 20 mg 0-25 08-26 capsule by ity of capsule 00:00: 00:00 mouth [place] 00 :00 daily. Medical Branch omeprazole 2020-09- No [id number] 20mg Take 1 Univers 20 mg 0-25 [...] TWICE Medical DAILY Branch NEEDED nystatin Yes [id number] Apply to Univers 100,000 7-19 area(s) 2 ity of unit/gram 00:00: (two) [place] ointment 00 times Medical daily. Branch nystatin Yes [id number] Apply to Univers 100,000 7-19 area(s) 2 ity of unit/gram 00:00: (two) [place] ointment 00 times Medical daily. Branch nystatin Yes [id number] Apply to Univers 100,000 7-19 area(s) 2 ity of unit/gram 00:00: (two) [place] ointment 00 times Medical daily. Branch lubiproston 2019-09- No [id number] 8ug Take 1 Univers e 8 mcg 1-24 -26 capsule by ity o f capsule 00:00: 00:00 mouth 2 [place] 00 :00 (two) Medical times [place] daily with meals. For constipati on lubiproston 2019-09- No [id number] 8ug Take 1 Univers e 8 mcg 1-24 -26 capsule by ity o f capsule 00:00: 00:00 mouth 2 [place] 00 :00 (two) Medical times [place] daily with meals. For constipati on Alcohol Yes [id number] Use to Uni vers Swabs 7-28 test blood ity of (ALCOHOL 00:00: sugar 4 [place] PREP PADS) 00 times Medical PadM daily Branch Alcohol Yes [id number] Use to Uni vers Swabs 7-28 test blood ity of (ALCOHOL 00:00: sugar 4 [place] PREP PADS) 00 times Medical PadM daily Branch Alcohol Yes [id number] Use to Uni vers Swabs 7-28 test blood ity of (ALCOHOL 00:00: sugar 4 [place] PREP PADS) 00 times Medical PadM daily Branch LANCING 0 Yes [id number] Use with U nivers DEVICE Misc 8-27 lancets to it y of 00:00: check blood Medical glucose Branch LANCING 2019-0 Yes [id number] Use with U nivers DEVICE Misc 8-27 lancets to it y of 00:00: check blood Medical glucose Branch LANCING 2019-0 Yes [id number] Use with U nivers DEVICE Misc 8-27 lancets to it y of 00:00: check [place] blood Medical glucose Branch aspirin 81 Yes [id number] 81mg Take 1 Univers mg EC 4-23 tablet by ity of tablet 00:00: mouth [place] 00 daily. Medical Branch aspirin 81 Yes [id number] 81mg Take 1 Univers mg EC 4-23 tablet by ity of tablet 00:00: mouth [place] 00 daily. Medical Branch aspirin 81 Yes [id number] 81mg Take 1 Univers mg EC 4-23 tablet by ity of tablet 00:00: mouth [place] 00 daily. Medical Branch Lisinopril Lisinopril Yes [...] 90 [place] nn 00 cap, 1 Refill(s) gabapentin Yes 100 mg = 1 M emoria 100 MG Oral 4-15 cap, PO, l Capsule 11:00: TID, # 90 [place] nn 00 cap, 1 Refill(s) topiramate Yes = 12.5 mg, M emoria 25 MG Oral 6-27 PO, QPM, # l Tablet 14:08: 30 caplet, Blessing nn [Topamax] 00 0 Refill(s) atorvastati Yes 80 mg = 1 M emoria n 80 mg 6-27 tab, PO, l oral tablet 14:08: Bedtime, # Srikanth 00 30 tab, 0 Refill(s) topiramate Yes = 12.5 mg, M emoria 25 MG Oral 6-27 PO, QPM, # l Tablet 14:08: 30 caplet, Blessing nn [Topamax] 00 0 Refill(s) atorvastati Yes 80 mg = 1 M emoria n 80 mg 6-27 tab, PO, l oral tablet 14:08: Bedtime, # [place] 00 30 tab, 0 Refill(s) Lisinopril No Notes: Memor ia 03-19 (Same as: l 14:00: Prinivil, [place] 00 Zestril) Baclofen No Notes: Memoria 03-19 (Same As: l 14:00: Lioresal) [place] 00 Lisinopril No Notes: Memor ia -27 (Same as: l 14:00: Prinivil, Srikanth 00 Zestril) Baclofen No Notes: Memoria 6-27 (Same As: l 14:00: Lioresal) Srikanth 00 Depacon + No Notes: Memori a Sodium 6-26 Dilute in l Chloride 20:20: at least Blessing nn 0.9% IV 50 00 50ml D5W mL or NS. Infusion rate = 20 mg/min (Same As: Depacon) Depacon + No Notes: Memori a Sodium 6-26 Dilute in l Chloride 20:20: at least Blessing nn 0.9% IV 50 00 50ml D5W mL or NS. Infusion rate = 20 mg/min (Same As: Depacon) Magnesium No 1 gm, 100 Mem oria Sulfate 6-26 mL, Route: l 19:34: IV, Drug [place] form: INJ, ONCE, Dosing Weight 77.727, kg, Start date: 03/18/14 14:34:00, Stop date: 03/18/14 14:34:00 Depakote No 500 mg, Memori a 6-26 Route: IV, l 19:34: ONCE, [place] Dosing Weight 77.727, kg, Start date: 03/18/14 14:34:00, Stop date: 03/18/14 14:34:00 Magnesium No 1 gm, 100 Mem oria Sulfate 6-26 mL, Route: l 19:34: IV, Drug Srikanth 00 form: INJ, ONCE, Dosing Weight 77.727, kg, Start date: 03/18/14 14:34:00, Stop date: 03/18/14 14:34:00 Depakote No 500 mg, Memori a 6-26 Route: IV, l 19:34: ONCE, Srikanth 00 Dosing Weight 77.727, kg, Start date: 03/18/14 14:34:00, Stop date: 03/18/14 14:34:00 Solu-Medrol No Notes: Jose Luis dennis 6-26 (Same l 19:33: as:Solu-ME Srikanth 00 DROL, A-Methapre d) Phenergan No Notes: Do Mem oria 6 not give l 19:33: IV push. Srikanth (Same as: Phenergan) Benadryl No Notes: Memoria 03-18 (Same as: l 19:33: Benadryl) Solu-Medrol No Notes: Jose Luis dennis 03-18 (Same l 19:33: as:Solu-ME [place] 00 DROL, A-Methapre d) Phenergan No Notes: Do Mem oria 6 not give l 19:33: IV push. Srikanth (Same as: Phenergan) Benadryl No Notes: Memoria 6 (Same as: l 19:33: Benadryl) Trazodone Yes 50 mg = 1 Mem oria Hydrochlori 6-26 tab, PO, l de 50 MG 15:18: Bedtime Gerardo n Oral Tablet baclofen 10 Yes 10 mg = 1 M emoria mg oral 6-26 tab, PO, l tablet 15:18: TID Trazodone Yes 50 mg = 1 Mem oria Hydrochlori 6-26 tab, PO, l de 50 MG 15:18: Bedtime Gerardo n Oral Tablet baclofen 10 Yes 10 mg = 1 M emoria mg oral 6-26 tab, PO, l tablet 15:18: TID metoprolol Yes 50 mg = 1 Me moria tartrate 50 6-26 tab, PO, l mg oral 15:16: Daily [place] tablet lisinopril Yes 5 mg = 1 Mem oria 5 mg oral 6-26 tab, PO, l tablet 15:16: Daily Srikanth 00 metoprolol Yes 50 mg = 1 Me moria tartrate 50 6-26 tab, PO, l mg oral 15:16: Daily [place] tablet lisinopril Yes 5 mg = 1 Mem oria 5 mg oral 6-26 tab, PO, l tablet 15:16: Daily [place] Metformin Yes 500 mg = 1 Me moria hydrochlori 6-26 tab, PO, l de 500 MG 15:15: BID Srikanth Oral Tablet 00 Metformin Yes 500 mg = 1 Me moria hydrochlori 6-26 tab, PO, l de 500 MG 15:15: BID Srikanth Oral Tablet 00 Metoclopram Yes Special Mem oria rochelle 5 MG 6-26 Instructio l Oral Tablet 15:13: ns: before [place] 00 meals Metoclopram Yes Special Mem oria rochelle 5 MG 6-26 Instructio l Oral Tablet 15:13: ns: before [place] 00 meals omeprazole Yes 40 mg = 1 Me moria 40 mg oral 6-26 cap, PO, l delayed 15:12: Daily, as [place] nn release 00 needed capsule omeprazole Yes 40 mg = 1 Me moria 40 mg oral 6-26 cap, PO, l delayed 15:12: Daily, as [place] nn release 00 needed capsule Saline No Notes: Memoria Flush 0.9% 6-26 (Same as: l 14:00: BD Srikanth 00 Posiflush) Saline No Notes: Memoria Flush 0.9% 6-26 (Same as: l 14:00: BD [place] Posiflush) heparin, No Notes: Memoria porcine 6-26 porcine l 13:00: heparin Lovenox No Notes: Memoria 6-26 (Same as: l 13:00: Lovenox) heparin, No Notes: Memoria porcine 6-26 porcine l 13:00: heparin Lovenox No Notes: Memoria 6-26 (Same as: l 13:00: Lovenox) Srikanth 00 Motrin No 600 mg, Memoria 6-26 Route: PO, l 10:48: Drug form: Srikanth 00 TAB, ONCE, Dosing Weight 77.727, kg, Priority: STAT, Start date: 03/18/14 5:48:00, Stop date: 03/18/14 5:48:00 Motrin No 600 mg, Memoria 6-26 Route: PO, l 10:48: Drug form: [place] 00 TAB, ONCE, Dosing Weight 77.727, kg, Priority: STAT, Start date: 03/18/14 5:48:00, Stop date: 03/18/14 5:48:00 atorvastati No Notes: Jose Luis dennis n 03-18 Same as l 09:47: Lipitor [place] 00 atorvastati No Notes: Jose Luis dennis n 03-18 Same as l 09:47: Lipitor Srikanth 00 Saline No Notes: Memoria Flush 0.9% 6-26 (Same as: l 09:42: BD Srikanth 00 Posiflush) Saline No Notes: Memoria Flush 0.9% 6-26 (Same as: l 09:42: BD Srikanth 00 Posiflush) Ibuprofen No Notes: Memori a 03-18 (Same as: l 05:08: Motrin) [place] 00 "Do Not Crush" Take with food. Ibuprofen No Notes: Memori a 03-18 (Same as: l 05:08: Motrin) Srikanth 00 "Do Not Crush" Take with food. Iohexol No Special Memoria 03-18 Instructio l 03:15: ns: Dose = [place] 00 2.2ml/kg, Max dose = 100ml -- "To be infused by Radiology Staff ONLY" Iohexol No Special Memoria 03-18 Instructio l 03:15: ns: Dose = Srikanth 00 2.2ml/kg, Max dose = 100ml -- "To be infused by Radiology Staff ONLY" Acetaminoph No Notes: Do M emoria en 03-18 not exceed l 02:46: 4 gm/day. Srikanth 00 (Same as: Tylenol) Acetaminoph No Notes: Do M emoria en 03-18 not exceed l 02:46: 4 gm/day. [place] 00 (Same as: Tylenol) Cardene 40 No Notes: Memor ia mg in NS 03-18 Same as: l 200 ml IV 02:43: Cardene [place] nn 40 mg 00 Concentrat ion: (0.2 mg /1 ml ) Cardene 40 No Notes: Memor ia mg in NS 03-18 Same as: l 200 ml IV 02:43: Cardene Blessing nn 40 mg 00 Concentrat ion: (0.2 mg /1 ml ) Saline No Notes: Memoria Flush 0.9% 6-26 (Same as: l 02:41: BD Posiflush) Saline No Notes: Memoria Flush 0.9% 6-26 (Same as: l 02:41: BD [place] 00 Posiflush) Macrobid No Notes: Not Mem oria 4-11 Recommende l 17:00: d for Srikanth patients with CrCl< 50 ml/min With food (Same as:Macroda ntin) Macrobid No Notes: Not Mem oria 4-11 Recommende l 17:00: d for Srikanth 00 patients with CrCl< 50 ml/min With food (Same as:Macroda ntin) Nitrofurant Yes 100 mg = 1 Memoria oin 100 MG 4-11 cap, PO, l Oral 16:05: [id number], # [place] Capsule 00 14 cap, 0 [Macrobid] Refill(s) Nitrofurant Yes 100 mg = 1 Memoria oin 100 MG 4-11 cap, PO, l Oral 16:05: [id number], # [place] Capsule 00 14 cap, 0 [Macrobid] Refill(s) Restoril No Notes: Memoria 4-10 (Same As: l 18:55: Restoril) Zofran No Notes: Memoria 4-10 (Same as: l 18:55: Zofran) Restoril No Notes: Memoria 4-10 (Same As: l 18:55: Restoril) Zofran No Notes: Memoria 4-10 (Same as: l 18:55: Zofran) Milk of No Notes: Memoria Magnesia 4-10 (Same as: l 18:54: Milk of Magnesia, MOM) Dulcolax No Notes: Memoria Laxative 4-10 (Same As: l 18:54: Dulcolax, Bisco-Lax) Tylenol No Notes: Memoria 4-10 (Same as: l 18:54: Tylenol) Milk of No Notes: Memoria Magnesia 4-10 (Same as: l 18:54: Milk of Magnesia, MOM) Dulcolax No Notes: Memoria Laxative 4-10 (Same As: l 18:54: Dulcolax, Bisco-Lax) Tylenol No Notes: Memoria 4-10 (Same as: l 18:54: Tylenol) Metoclopram Yes 5 mg = 1 Me moria rochelle 5 MG 4-10 tab, PO, l Oral Tablet 16:10: TID-Before Srikanth [Reglan] 00 Meals, # 90 tab, 0 [...] tab, PO, l tablet 16:10: Daily, # [place] 00 30 tab, 0 Refill(s) pantoprazol Yes 40 mg = 1 M emoria e 40 mg 4-10 tab, PO, l oral 16:10: Before Srikanth enteric 00 Dinner, # coated 30 tab, 0 tablet Refill(s) Metoclopram Yes 5 mg = 1 Me moria rochelle 5 MG 4-10 tab, PO, l Oral Tablet 16:10: TID-Before Srikanth [Reglan] 00 Meals, # 90 tab, 0 [...] tab, PO, l tablet 16:10: Daily, # [place] 00 30 tab, 0 Refill(s) pantoprazol Yes 40 mg = 1 M emoria e 40 mg 4-10 tab, PO, l oral 16:10: Before [place] enteric 00 Dinner, # coated 30 tab, 0 tablet Refill(s) Tylenol No 650 mg, Memoria 4-10 Route: PO, l 06:31: Drug form: [place] 00 TAB, Q6H, Dosing Weight 81.818, kg, PRN Pain, Start date: 12/31/13 1:31:00, Duration: 30 day, Stop date: 01/30/14 1:30:00 Tylenol No 650 mg, Memoria 4-10 Route: PO, l 06:31: Drug form: [place] 00 TAB, Q6H, Dosing Weight 81.818, kg, PRN Pain, Start date: 12/31/13 1:31:00, Duration: 30 day, Stop date: 01/30/14 1:30:00 Docusate No Notes: Memoria 4-09 (Same as: l 13:00: Colace) (Do Not Crush) Docusate No Notes: Memoria 4-09 (Same as: l 13:00: Colace) (Do Not Crush) sennosides, No Notes: Jose Luis dennis CHCF 8.6 MG 4-09 (Same as: l Oral Tablet 02:00: Senokot) sennosides, No Notes: Jose Luis dennis CHCF 8.6 MG 4-09 (Same as: l Oral Tablet 02:00: Senokot) [facility] Baclofen No Notes: Memoria 4-08 (Same As: l 21:00: Lioresal) Baclofen No Notes: Memoria 4-08 (Same As: l 21:00: Lioresal) insulin No 60 units) Jose Luis dennis regular 100 4-08 Stable for l units/mL 16:16: 28 days at [facility] human 00 room recombinant temperatur e Expires in days from ____Date Dextrose 2013-0 No 6.25 gm, Memor ia 50% Syringe 4-08 12.5 mL, l 16:16: Route: Srikanth 00 IVP, Drug Form: INJ, Dosing Weight 81.818, kg, PRN, PRN Abnormal Lab Result, Start date: 12/29/13 11:16:00, Duration: 30 day, Stop date: 01/28/14 11:15:00 insulin 2013-0 No 60 units) Jose Luis dennis regular 100 4-08 Stable for l units/mL 16:16: 28 days at Her [facility] human 00 room recombinant [facility] e Expires in days from ____Date Dextrose 2013-0 No 6.25 gm, Memor ia 50% Syringe 4-08 12.5 mL, l 16:16: Route: [place] 00 IVP, Drug Form: INJ, Dosing Weight 81.818, kg, PRN, PRN Abnormal Lab Result, Start date: 12/29/13 11:16:00, Duration: 30 day, Stop date: 01/28/14 11:15:00 Dextrose 2013-0 No 25 gm, 50 Jose Luis dennis 50% Syringe 4-08 mL, Route: l 16:15: IVP, Drug Srikanth 00 Form: INJ, Dosing Weight 81.818, kg, PRN, PRN Abnormal Lab Result, Start date: 12/29/13 11:15:00, Duration: 30 day, Stop date: 01/28/14 11:14:00 Dextrose 2013-0 No 25 gm, 50 Jose Luis dennis 50% Syringe 4-08 mL, Route: l 16:15: IVP, Drug Srikanth 00 Form: INJ, Dosing Weight 81.818, kg, PRN, PRN Abnormal Lab Result, Start date: 12/29/13 11:15:00, Duration: 30 day, Stop date: 01/28/14 11:14:00 Epinephrine 2013-0 No Notes: Jose Luis dennis 1 MG/ML 4-07 (Same as: l Injectable 13:58: Epipen Blessing nn Solution 00 Auto Inejctor) Prefilled syringe for IM use. Epinephrine No Notes: Jose Luis dennis 1 MG/ML 12-28 (Same as: l Injectable 13:58: Epipen Blessing nn Solution 00 Auto Inejctor) Prefilled syringe for IM use. Benadryl No Notes: Memoria 4-07 (Same as: l 13:56: Benadryl) Srikanth 00 Benadryl No Notes: Memoria 4-07 (Same as: l 13:56: Benadryl) [place] 00 Ciprofloxac No Notes: Jose Luis dennis in 3 MG/ML - (Same As: l / 01:00: Ciprodex) [place] Dexamethaso 00 ne 1 MG/ML Otic Suspension [Ciprodex] Ciprofloxac No Notes: Jose Luis dennis in 3 MG/ML 12-28 (Same As: l / 01:00: Ciprodex) Srikanth Dexamethaso 00 ne 1 MG/ML Otic Suspension [Ciprodex] Protonix No Notes: Memoria 4-06 Tablet l 21:30: should not [place] 00 be chewed or crushed. (Same as: Protonix) Protonix No Notes: Memoria 4-06 Tablet l 21:30: should not [place] 00 be chewed or crushed. (Same as: Protonix) tramadol No Notes: Not Mem oria hydrochlori 4-06 to exceed l de 50 MG 17:00: 400mg/day. Her stone Oral Tablet 00 (Same As: [Ultram] Ultram) tramadol No Notes: Not Mem oria hydrochlori 4-06 to exceed l de 50 MG 17:00: 400mg/day. Her stone Oral Tablet 00 (Same As: [Ultram] Ultram) Ibuprofen No 400 mg, 1 Mem oria 400 MG Oral 4-06 tab, l Tablet 15:36: Route: PO, Blessing nn 00 Drug form: TAB, Q8H, Dosing Weight 81.818, kg, Priority: NOW, Start date: 12/27/13 10:36:00, Duration: 3 day, Stop date: 12/30/13 8:00:00 Ibuprofen No 400 mg, 1 Mem oria 400 MG Oral 4-06 tab, l Tablet 15:36: Route: PO, Blessing nn 00 Drug form: TAB, Q8H, Dosing Weight 81.818, kg, Priority: NOW, Start date: 12/27/13 10:36:00, Duration: 3 day, Stop date: 12/30/13 8:00:00 pantoprazol No Notes: Jose Luis dennis e 4-06 Tablet l 11:30: should not [place] 00 be chewed or crushed. (Same as: Protonix) pantoprazol No Notes: Jose Luis dennis e 4-06 Tablet l 11:30: should not [place] 00 be chewed or crushed. (Same as: Protonix) Protonix No 40 mg, Memoria 4-05 Route: l 12:19: IVP, [place] 00 Before Breakfast, Dosing Weight 81.818, kg, Start date: 12/26/13 7:19:00, Duration: 30 day, Stop date: 01/25/14 6:30:00 Protonix No 40 mg, Memoria 4-05 Route: l 12:19: IVP, Srikanth 00 Before Breakfast, Dosing Weight 81.818, kg, Start date: 12/26/13 7:19:00, Duration: 30 day, Stop date: 01/25/14 6:30:00 Lovenox No Notes: Memoria 4-04 (Same as: l 19:00: Lovenox) [place] Lovenox No Notes: Memoria 4-04 (Same as: l 19:00: Lovenox) [place] Lovenox No Notes: Memoria 4-04 (Same as: l 16:00: Lovenox) [place] Lovenox No Notes: Memoria 4-04 (Same as: l 16:00: Lovenox) [place] docusate No Notes: Memoria 4-04 (Same as: l 15:32: Colace) Srikanth docusate No Notes: Memoria 4-04 (Same as: l 15:32: Colace) Acetaminoph No Notes: Do M emoria en 12-25 not exceed l 13:00: 4 gm/day. Srikanth 00 (Same as: Tylenol) Acetaminoph No Notes: Do M emoria en 12-25 not exceed l 13:00: 4 gm/day. [place] 00 (Same as: Tylenol) docusate No Notes: Memoria 12-24 (Same as: l 23:00: Colace) Srikanth docusate No Notes: Memoria 12-24 (Same as: l 23:00: Colace) [place] lidocaine No Notes: Memori a topical 12-24 Apply only l patch (5% 14:00: once for Herm tee film) 00 up to 12 hours in a 24-hour period (12 hours on and 12 hours off). (Same as: Lidoderm) "Remove old patch before applicatio n of new patch" lidocaine No Notes: Memori a topical 12-24 Apply only l patch (5% 14:00: once for Herm tee film) 00 up to 12 hours in a 24-hour period (12 hours on and 12 hours off). (Same as: Lidoderm) "Remove old patch before applicatio n of new patch" Lidocaine No Special Memor ia Hydrochlori -03 Instructio l de 0.05 13:00: ns: Remove Herm tee MG/MG 00 after 12 Transdermal hours Patch [Lidoderm] Lidocaine No Special Memor ia Hydrochlori 03 Instructio l de 0.05 13:00: ns: Remove Herm tee MG/MG 00 after 12 Transdermal hours Patch [Lidoderm] Remove - No 2 patch, Memor ia lidocaine 12-24 Route: l topical 02:00: TOP, Srikanth patch 00 Bedtime, Drug form: ERFILM, Start date: 12/23/13 21:00:00, Duration: 30 day, Stop date: 01/21/14 21:00:00 Remove - No 2 patch, Memor ia lidocaine 12-24 Route: l topical 02:00: TOP, [place] patch 00 Bedtime, Drug form: ERFILM, Start [...] patch before applicatio n of new patch" Hydrocortis No Notes: Jose Luis dennis one 25 - (Same as: l MG/ML 18:00: Anusol-HC, Gerardo [...] - No 1 patch, Memor ia lidocaine - Route: l topical 17:00: TOP, ONCE, Herm tee patch 00 Drug form: ERFILM, Start date: 12/23/13 12:00:00, Stop date: 12/23/13 12:00:00 Remove - No 1 patch, Memor ia lidocaine 4-02 Route: l topical 17:00: TOP, ONCE, Herm [...] patch" Lidocaine No Notes: Memori a Hydrochlori - Apply only l de 0.05 15:05: once for Gerardo n MG/MG 00 up to 12 Transdermal hours in a Patch 24-hour [Lidoderm] period (12 hours on and 12 hours off). (Same as: Lidoderm) "Remove old patch before applicatio n of new patch" Lidocaine No Notes: Memori a Hydrochlori 4-02 Apply only l de 0.05 14:39: once for Gerardo n MG/MG 00 up to 12 Transdermal hours in a Patch 24-hour period (12 hours on and 12 hours off). (Same as: Lidoderm) "Remove old patch before applicatio n of new patch" Lidocaine No Notes: Memori a Hydrochlori 4-02 Apply only l de 0.05 14:39: once for Gerardo n MG/MG 00 up to 12 Transdermal hours in a Patch 24-hour period (12 hours on and 12 hours off). (Same as: Lidoderm) "Remove old patch before applicatio n of new patch" Baclofen No Notes: Memoria 4-01 (Same As: l 21:00: Lioresal) Srikanth Baclofen No Notes: Memoria 4-01 (Same As: l 21:00: Lioresal) [place] Baclofen No Notes: Memoria 4-01 (Same As: l 01:00: Lioresal) Srikanth Baclofen No Notes: Memoria 4-01 (Same As: l 01:00: Lioresal) [place] Lidocaine No Notes: Memori a Hydrochlori 3-30 Apply only l de 0.05 13:00: once for Gerardo n MG/MG 00 up to 12 Transdermal hours in a Patch 24-hour [Lidoderm] period (12 hours on and 12 hours off). (Same as: Lidoderm) "Remove old patch before applicatio n of new patch" Lidocaine No Notes: Memori a Hydrochlori 3-30 Apply only l de 0.05 13:00: once for Gerardo n MG/MG 00 up to 12 Transdermal hours in a Patch 24-hour [Lidoderm] period (12 hours on and 12 hours off). (Same as: Lidoderm) "Remove old patch before applicatio n of new patch" magnesium No Notes: Memori a citrate 3-29 (Same as: l 18:15: Citrate of [place] Magnesia) magnesium No Notes: Memori a citrate 3-29 (Same as: l 18:15: Citrate of Srikanth Magnesia) Magnesium No Notes: Memori a Oxide 3-24 (Same as: l 15:26: Mag-Ox [place] 00 400) Magnesium oxide 696rd=909m g elemental magnesium Dose=____m g magnesium oxide (___mg elemental magnesium) Magnesium No Notes: Memori a Oxide 3-24 (Same as: l 15:26: Mag-Ox [place] 00 400) Magnesium oxide 838cy=352q g elemental magnesium Dose=____m g magnesium oxide (___mg elemental magnesium) heparin No Notes: Memoria 3-20 porcine l 23:00: heparin [place] heparin No Notes: Memoria 3-20 porcine l 23:00: heparin [place] simethicone No 0 Memori a 80 mg oral 3-20 Refill(s) l tablet 22:47: [place] Buspirone No 0 Memoria 3-20 Refill(s) l 22:47: [place] Namenda No 0 Memoria 3-20 Refill(s) l 22:47: Srikanth 00 simethicone No 0 Memori a 80 mg oral 3-20 Refill(s) l tablet 22:47: [place] 00 Buspirone No 0 Memoria 3-20 Refill(s) l 22:47: Srikanth 00 Namenda No 0 Memoria 3-20 Refill(s) l 22:47: [place] 00 Metoclopram No Notes: Jose Luis dennis rochelle 10 MG 3-20 (Same as: l Oral Tablet 21:30: Reglan) Her [facility] [Reglan] 00 Take 30 min before meals Metoclopram No Notes: Jose Luis dennis rochelle 10 MG 3-20 (Same as: l Oral Tablet 21:30: Reglan) Her stone [Reglan] 00 Take 30 min before meals Keflex No Notes: Memoria 3-17 Take on l 19:00: empty Srikanth 00 stomach. (Same As: Keflex) Keflex No Notes: Memoria 3-17 Take on l 19:00: empty [place] 00 stomach. (Same As: Keflex) NS (Bolus) No Special Jose Luis dennis IV 500 mL 3-15 Instructio l 14:39: ns: Bolus Srikanth 00 Dose NS (Bolus) No Special Jose Luis dennis IV 500 mL 3-15 Instructio l 14:39: ns: Bolus Srikanth 00 Dose NS (Bolus) No Special Jose Luis dennis IV 500 mL 3-15 Instructio l 13:49: ns: Bolus [place] 00 Dose NS (Bolus) No Special Jose Luis dennis IV 500 mL 3-15 Instructio l 13:49: ns: Bolus Srikanth 00 Dose Lisinopril No Notes: Memor ia 3-15 (Same as: l 13:00: Prinivil, [place] 00 Zestril) Lisinopril No Notes: Memor ia 3-15 (Same as: l 13:00: Prinivil, Srikanth 00 Zestril) Keflex No Notes: Memoria 3-15 Take on l 05:00: empty [place] 00 stomach. (Same As: Keflex) Keflex No Notes: Memoria 3-15 Take on l 05:00: empty Srikanth 00 stomach. (Same As: Keflex) Keflex No 500 mg, Memoria 3-14 Route: PO, l 21:00: Q8H, [place] 00 Dosing Weight 81.818, kg, Start date: 12/04/13 16:00:00, Duration: 30 day, Stop date: 01/03/14 8:00:00 Keflex No 500 mg, Memoria 3-14 Route: PO, l 21:00: Q8H, [place] 00 Dosing Weight 81.818, kg, Start date: 12/04/13 16:00:00, Duration: 30 day, Stop date: 01/03/14 8:00:00 normal No 1,000 mL, Memori a saline 0.9% 12-04 Rate: 75 l IV 1,000 mL 16:08: ml/hr, Herm Infuse over: 13.3 hr, Route: IV, Dosing Weight 81.818 kg, Total Volume: 1,000, Start date: 12/04/13 11:08:00, Duration: 30 day, Stop date: 01/03/14 11:07:00 normal 2014-0 No 1,000 mL, Memori a saline 0.9% 3-14 Rate: 75 l IV 1,000 mL 16:08: ml/hr, Herm tee 00 Infuse over: 13.3 hr, Route: IV, Dosing Weight 81.818 kg, Total Volume: 1,000, Start date: 12/04/13 11:08:00, Duration: 30 day, Stop date: 01/03/14 11:07:00 normal 2013-0 No 1,000 mL, Memori a saline 0.9% 3-14 Rate: 75 l IV 1000 mL 16:06: ml/hr, Blessing nn 00 Infuse over: 13.3 hr, Route: IV, Dosing Weight 81.818 kg, Total Volume: 1,000, Start date: 12/04/13 11:06:00, Duration: 30 day, Stop date: 01/03/14 11:05:00 normal 2013-0 No 1,000 mL, Memori a saline 0.9% 3-14 Rate: 75 l IV 1000 mL 16:06: ml/hr, Blessing nn 00 Infuse over: 13.3 hr, Route: IV, Dosing Weight 81.818 kg, Total Volume: 1,000, Start date: 12/04/13 11:06:00, Duration: 30 day, Stop date: 01/03/14 11:05:00 Bisacodyl No Notes: Memori a 10 MG Enema 3-13 (Same As: l 19:40: Dulcolax, [place] 00 Bisco-Lax) Bisacodyl No Notes: Memori a 10 MG Enema 3-13 (Same As: l 19:40: Dulcolax, [place] 00 Bisco-Lax) Metformin No Notes: Memori a 3-13 (Same as: l 01:00: Glucophage [place]well ) Take with meal Metformin No Notes: Memori a 3-13 (Same as: l 01:00: Glucophage [place] ) Take with meal magnesium No Notes: Memori a citrate 3-12 (Same as: l 17:21: Citrate of [place] Magnesia) magnesium No Notes: Memori a citrate 3-12 (Same as: l 17:21: Citrate of Magnesia) pantoprazol No Notes: Jose Luis dennis e 3-11 Tablet l 21:30: should not Srikanth 00 be chewed or crushed. (Same as: Protonix) pantoprazol No Notes: Jose Luis dennis e 3-11 Tablet l 21:30: should not Srikanth 00 be chewed or crushed. (Same as: Protonix) Rocephin No Notes: Memoria 3-11 (Same As: l 19:00: Rocephin). [place] 00 Use with 100ml NS mini-bag PLUS and infuse over 30 min Rocephin No Notes: Memoria 3-11 (Same As: l 19:00: Rocephin). 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 Stable for l H 13:00: 28 days at Srikanth 00 room temperatur e Expires in days from ____Date Dextrose No 12.5 gm, Memor ia 50% Syringe 3-11 25 mL, l 11:53: Route: [place] 00 IVP, Drug Form: INJ, Dosing Weight 81.818, kg, PRN, PRN Abnormal Lab Result, Start date: 12/01/13 6:53:00, Duration: 30 day, Stop date: 12/31/13 6:52:00 Regular No 60 units) Jose Luis dennis Insulin, 3-11 Stable for l Human 100 11:53: 28 days at [facility] UNT/ML 00 room Injectable temperatur Solution e Expires in days from ____Date Dextrose No 12.5 gm, Memor ia 50% Syringe 3-11 25 mL, l 11:53: Route: IVP, Drug Form: INJ, Dosing Weight 81.818, [...] Memoria porcine 3-11 porcine l 05:00: heparin heparin, No Notes: Memoria porcine 3-11 porcine l 05:00: heparin Docusate No Notes: Memoria 3-11 (Same as: l 02:00: Colace) sennosides, No Notes: Jose Luis dennis CHCF 8.6 MG 3-11 (Same as: l Oral Tablet 02:00: Senokot) Docusate No Notes: Memoria 3-11 (Same as: l 02:00: Colace) sennosides, No Notes: Jose Luis dennis CHCF 8.6 MG 3-11 (Same as: l Oral Tablet 02:00: Senokot) Saline No Notes: Memoria Flush 0.9% 3-11 (Same as: l 00:08: BD Posiflush) zolpidem No 5 mg, Memoria 3-11 Route: PO, l 00:08: Drug form: TAB, Bedtime, Dosing Weight 81.818, kg, PRN Insomnia, Start date: 11/30/13 19:08:00, Duration: 30 day, Stop date: 12/30/13 19:07:00 Milk of No Notes: Memoria Magnesia 3-11 (Same as: l 00:08: Milk of Srikanth Thai, MOM) Bisacodyl No Notes: Memori a 3-11 (Same As: l 00:08: Dulcolax, Srikanth 00 Bisco-Lax) Temazepam No Notes: Memori a 3-11 (Same As: l 00:08: Restoril) Ondansetron No Notes: Jose Luis dennis 3-11 (Same as: l 00:08: Zofran) Acetaminoph No Notes: Jose Luis dennis en 3-11 (Same as: l 00:08: Tylenol) Saline No Notes: Memoria Flush 0.9% 3-11 (Same as: l 00:08: BD Posiflush) zolpidem No 5 mg, Memoria 3-11 Route: PO, l 00:08: Drug form: TAB, Bedtime, Dosing Weight 81.818, kg, PRN Insomnia, Start date: 11/30/13 19:08:00, Duration: 30 day, Stop date: 12/30/13 19:07:00 Milk of No Notes: Memoria Magnesia 3-11 (Same as: l 00:08: Milk of Srikanth Thai, MOM) Bisacodyl No Notes: Memori a 3-11 (Same As: l 00:08: Dulcolax, Srikanth 00 Bisco-Lax) Temazepam No Notes: Memori a 3-11 (Same As: l 00:08: Restoril) Ondansetron No Notes: Jose Luis dennis 3-11 (Same as: l 00:08: Zofran) Acetaminoph No Notes: Jose Luis dennis en 3-11 (Same as: l 00:08: Tylenol) NPH No 10 unit, Memoria Insulin, 3-10 Route: l Pork 22:00: SUB-Q, Srikanth 00 BID, Dosing Weight 84.545, kg, Start date: 11/30/13 17:00:00, Duration: 30 day, Stop date: 12/30/13 9:00:00 Docusate No Notes: Memoria 3-10 (Same as: l 22:00: Colace) Srikanth 00 (Do Not Crush) Ceftriaxone No 1 gm, Memor ia 3-10 Route: l 22:00: IVPB, Drug Srikanth 00 form: PDR/INJ, [id number], Dosing Weight 84.545, kg, Start date: 11/30/13 17:00:00, Duration: 30 day, Stop date: 12/29/13 17:00:00 NPH No 10 unit, Memoria Insulin, 3-10 Route: l Pork 22:00: SUB-Q, Srikanth 00 BID, Dosing Weight 84.545, kg, Start date: 11/30/13 17:00:00, Duration: 30 day, Stop date: 12/30/13 9:00:00 Docusate No Notes: Memoria 3-10 (Same as: l 22:00: Colace) Srikanth (Do Not Crush) Ceftriaxone No 1 gm, Memor ia 3-10 Route: l 22:00: IVPB, Drug form: PDR/INJ, [id number], Dosing Weight 84.545, kg, Start date: 11/30/13 17:00:00, Duration: 30 day, Stop date: 12/29/13 17:00:00 Flexeril No Notes: Memoria 3-10 (Same As: l 21:42: Flexeril) Srikanth 00 Flexeril No Notes: Memoria 3-10 (Same As: l 21:42: Flexeril) lisinopril Yes 10 mg = 1 Me moria 10 mg oral 3-10 tab, PO, l tablet 18:30: Daily, # Srikanth 00 90 tab, 0 Refill(s) insulin Yes 10 unit = Memor ia isophane 3-10 0.1 mL, l human 18:30: SUB-Q, Srikanth recombinant 00 BID, # 30 100 mL, 0 units/mL Refill(s) subcutaneou s injection ceftriaxone Yes = 1 gm, Mem oria 1 g 3-10 IVPB, l injection 18:30: [id number], # [facility] 00 4 inj, 0 Refill(s) lisinopril Yes 10 mg = 1 Me moria 10 mg oral 3-10 tab, PO, l tablet 18:30: Daily, # [place] 00 90 tab, 0 Refill(s) insulin Yes 10 unit = Memor ia isophane 3-10 0.1 mL, l human 18:30: SUB-Q, [place] recombinant 00 BID, # 30 100 mL, 0 units/mL Refill(s) subcutaneou s injection ceftriaxone Yes = 1 gm, Mem oria 1 g 3-10 IVPB, l injection 18:30: [id number], # [facility] 00 4 inj, 0 Refill(s) pneumococca No 0.5 ml, Mem oria l capsular 3-10 Route: IM, l polysacchar 18:00: Drug Form: Srikanth rochelle type 1 00 INJ, vaccine / Daily, pneumococca Start l capsular date: polysacchar 11/30/13 rochelle type 13:00:00, 10A vaccine Duration: / 1 doses or pneumococca times, l capsular Stop date: polysacchar 11/30/13 rochelle type 13:00:00(S 11A vaccine elida as: / Pneumovax pneumococca 23) l capsular Refrigerat polysacchar e rochelle type 12F vaccine / pneumococca l capsular polysacchar pneumococca No 0.5 ml, Mem oria l capsular 3-10 Route: IM, l polysacchar 18:00: Drug Form: [place] rochelle type 1 00 INJ, vaccine / Daily, pneumococca Start l capsular date: polysacchar 11/30/13 rochelle type 13:00:00, 10A vaccine Duration: / 1 doses or pneumococca times, l capsular Stop date: polysacchar 11/30/13 rochelle type 13:00:00(S 11A vaccine elida as: / Pneumovax pneumococca 23) l capsular Refrigerat polysacchar e rochelle type 12F vaccine / pneumococca l capsular polysacchar sennosides, 2014-0 No 8.6 mg, 1 M emoria CHCF 3-10 tab, l 14:00: Route: PO, Srikanth 00 Drug Form: TAB, Dosing Weight 84.545, kg, Daily, Start date: 11/30/13 9:00:00, Duration: 30 day, Stop date: 12/29/13 9:00:00([facility] as: Senokot) sennosides, 2013-0 No 8.6 mg, 1 M emoria CHCF 3-10 tab, l 14:00: Route: PO, Srikanth 00 Drug Form: TAB, Dosing Weight 84.545, kg, Daily, Start date: 11/30/13 9:00:00, Duration: 30 day, Stop date: 12/29/13 9:00:00([facility] as: Senokot) Rocephin 2013-0 No 1 gm, Memoria 11-29 Route: l 19:00: IVPB, Drug form: PDR/INJ, [id number], Dosing Weight 84.545, kg, Start date: 11/29/13 14:00:00, Duration: 30 day, Stop date: 12/28/13 14:00:00(S elida As: Rocephin). Use with 100ml NS mini-bag PLUS and infuse over 30 min Rocephin 2013-0 No 1 gm, Memoria 11-29 Route: l 19:00: IVPB, Drug form: PDR/INJ, [id number], Dosing Weight 84.545, kg, Start date: 11/29/13 14:00:00, Duration: 30 day, Stop date: 12/28/13 14:00:00(S elida As: Rocephin). Use with 100ml NS mini-bag PLUS and infuse over 30 min Fleet Enema 2013- No 133 ml, Mem oria 11-29 Route: LA, l 18:12: Drug Form: Srikanth 00 MORENITA, Dosing Weight 84.545, kg, ONCE, Start date: 11/29/13 13:12:00, Stop date: 11/29/13 13:12:00 Fleet Enema 0 No 133 ml, Mem oria 11-29 Route: LA, l 18:12: Drug Form: Srikanth 00 MORENITA, Dosing Weight 84.545, kg, ONCE, Start date: 11/29/13 13:12:00, Stop date: 11/29/13 13:12:00 Flexeril 2014-0 No 10 mg, 1 Memor ia 3-09 tab, l 18:02: Route: PO, [place] 00 Drug form: TAB, TID, Dosing Weight 84.545, kg, PRN Spasm, Start date: 11/29/13 13:02:00, Duration: 30 day, Stop date: 12/29/13 13:01:00(S elida As: Flexeril) Flexeril 2013-0 No 10 mg, 1 Memor ia 3-09 tab, l 18:02: Route: PO, Drug form: TAB, TID, Dosing Weight 84.545, kg, PRN Spasm, Start date: 11/29/13 13:02:00, Duration: 30 day, Stop date: 12/29/13 13:01:00(S elida As: Flexeril) Lisinopril 2013-0 No 10 mg, 1 Mem oria 3-09 tab, l 14:00: Route: PO, Drug form: TAB, Daily, Dosing Weight 84.545, kg, Start date: 11/29/13 9:00:00, Duration: 30 day, Stop date: 12/28/13 9:00:00(Sa me as: Prinivil, Zestril) Lisinopril 2013-0 No 10 mg, 1 Mem oria 3-09 tab, l 14:00: Route: PO, Drug form: [...] Duration: 30 day, Stop date: 12/28/13 20:04:00 Labetalol 2013-0 No 10 mg, 2 Jose Luis dennis 3-09 mL, Route: l 01:05: IVP, Drug form: INJ, Q15Min, Dosing Weight 84.545, kg, PRN Hypertensi on, Start date: 11/28/13 19:05:00, Duration: 30 day, Stop date: 12/28/13 20:04:00 Lisinopril 2013-0 No 5 mg, 1 Jose Luis dennis 3-08 tab, l 16:13: Route: PO, Drug form: TAB, ONCE, Dosing Weight 84.545, kg, Priority: NOW, Start date: 11/28/13 10:13:00, Stop date: 11/28/13 10:13:00(S elida as: Prinivil, Zestril) Lisinopril 2013-0 No 5 mg, 1 Jose Luis dennis 3-08 tab, l 16:13: Route: PO, Drug form: TAB, ONCE, Dosing Weight 84.545, kg, Priority: NOW, Start date: 11/28/13 10:13:00, Stop date: 11/28/13 10:13:00(S elida as: Prinivil, Zestril) Atenolol 25 2013-0 No 25 mg = 1 M emoria MG Oral 3-08 tab, PO, l Tablet 01:03: Daily, # Blackwell 00 30 tab, 0 Refill(s) Atenolol 25 2013-0 No 25 mg = 1 M emoria MG Oral 3-08 tab, PO, l Tablet 01:03: Daily, # Srikanth 00 30 tab, 0 Refill(s) heparin, 2013-0 No 5,000 Memoria porcine 3-07 unit, 1 l 22:00: mL, Route: [place] 00 SUB-Q, Drug form: INJ, Q8H, Dosing Weight 84.545, kg, Start date: 11/27/13 16:00:00, Duration: 30 day, Stop date: 12/27/13 8:00:00por cine heparin heparin, 2013-0 No 5,000 Memoria porcine 3-07 unit, 1 l 22:00: mL, Route: Srikanth 00 SUB-Q, Drug form: INJ, Q8H, Dosing Weight 84.545, kg, Start date: 11/27/13 16:00:00, Duration: 30 day, Stop date: 12/27/13 8:00:00por cine heparin Lisinopril 2013-0 No 5 mg, 1 Jose Luis dennis 3-07 tab, l 21:15: Route: PO, Srikanth 00 Drug form: TAB, Daily, Dosing Weight 84.545, kg, Start date: 11/27/13 15:15:00, Duration: 30 day, Stop date: 12/27/13 9:00:00( me as: Prinivil, Zestril) Lisinopril 2013-0 No 5 mg, 1 Jose Luis dennis 3-07 tab, l 21:15: Route: PO, Srikanth 00 Drug form: TAB, Daily, Dosing Weight 84.545, kg, Start date: 11/27/13 15:15:00, Duration: 30 day, Stop date: 12/27/13 9:00:00([facility] as: Prinivil, Zestril) NPH 2014-0 No 10 unit, Memoria Insulin, 3-07 Route: l Pork 13:30: SUB-Q, [place] 00 Before Breakfast, Dosing Weight 84.545, kg, Start date: 11/27/13 7:30:00, Duration: 30 day, Stop date: 12/26/13 7:30:00 NPH 2014-0 No 10 unit, Memoria Insulin, 3-07 Route: l Pork 13:30: SUB-Q, Srikanth 00 Before Breakfast, Dosing Weight 84.545, kg, Start date: 11/27/13 7:30:00, Duration: 30 day, Stop date: 12/26/13 7:30:00 NPH 2014-0 No 10 unit, Memoria Insulin, 3-07 Route: l Pork 03:00: SUB-Q, [place] 00 Bedtime, Dosing Weight 84.545, kg, Start date: 11/26/13 21:00:00, Duration: 30 day, Stop date: 12/25/13 21:00:00 NPH 2014-0 No 10 unit, Memoria Insulin, 3-07 Route: l Pork 03:00: SUB-Q, Srikanth 00 Bedtime, Dosing Weight 84.545, kg, Start date: 11/26/13 21:00:00, Duration: 30 day, Stop date: 12/25/13 21:00:00 Iohexol 2013-0 No 85 mL, Memoria 11-27 Route: l 00:00: IVP, Drug Form: SOLN, Dosing Weight 84.545, kg, ONCALL, STAT, Start date: 11/26/13 18:00:00, Duration: 1 doses or times, Stop date: 11/27/13 6:00:00, Dose = 2.2ml/kg, Max dose = 100ml -- "To be infused by Radiology Staff ONLY"(Same as:Omnipaq ue 350). Iohexol 2013-0 No 85 mL, Memoria 11-27 Route: l 00:00: IVP, Drug Form: SOLN, Dosing Weight 84.545, kg, ONCALL, STAT, Start date: 11/26/13 18:00:00, Duration: 1 doses or times, Stop date: 11/27/13 6:00:00, Dose = 2.2ml/kg, Max dose = 100ml -- "To be infused by Radiology Staff ONLY"(Same as:Omnipaq ue 350). Humulin N No 10 unit, Jose Luis dennis 3-06 0.1 mL, l 23:00: Route: SUB-Q, Drug [...] 9:00:00Wit h food. (Same as:Trandat e, Normodyne) Humulin N 2014-0 No 10 unit, Jose Luis dennis 3-06 0.1 mL, l 23:00: Route: [place] 00 SUB-Q, Drug form: INJ, BID, Start date: 11/26/13 17:00:00, Duration: 30 day, Stop date: 12/26/13 9:00:00 60 units) Stable for 28 days at room temperatur e Expires in days from ____Date Labetalol 2013-0 No 100 mg, 1 Mem oria 3-06 tab, l 23:00: Route: PO, Srikanth 00 Drug form: TAB, BID, Dosing Weight 84.545, kg, Start date: 11/26/13 17:00:00, Duration: 30 day, Stop date: 12/26/13 9:00:00Wit h food. (Same as:Trandajoe ndiaye, Normodyne) Protonix 2013-0 No 40 mg, 1 Memor ia 3-06 tab, l 22:30: Route: PO, Srikanth 00 Drug form: ECTAB, Before Dinner, Start date: 11/26/13 16:30:00, Duration: 30 day, Stop date: 12/25/13 16:30:00Ta blet should not be chewed or crushed. (Same as: Protonix) Protonix 2013-0 No 40 mg, 1 Memor ia 3-06 tab, l 22:30: Route: PO, Srikanth 00 Drug form: ECTAB, Before Dinner, Start date: 11/26/13 16:30:00, Duration: 30 day, Stop date: 12/25/13 16:30:00Ta blet should not be chewed or crushed. (Same as: Protonix) Captopril 2013-0 No 25 mg, Memori a 3-06 Route: PO, l 22:00: Drug form: [place] 00 TAB, Q8H, Dosing Weight 84.545, kg, Start date: 11/26/13 16:00:00, Duration: 30 day, Stop date: 12/26/13 8:00:00 Captopril 2014-0 No 25 mg, Memori a 3-06 Route: PO, l 22:00: Drug form: Srikanth 00 TAB, Q8H, Dosing Weight 84.545, kg, Start date: 11/26/13 16:00:00, Duration: 30 day, Stop date: 12/26/13 8:00:00 omeprazole Yes 40 mg = 1 Me moria 40 mg oral 3-06 cap, PO, l delayed 16:26: Daily, # Gerardo n release 00 30 cap, 0 capsule Refill(s) omeprazole Yes 40 mg = 1 Me moria 40 mg oral 3-06 cap, PO, l delayed 16:26: Daily, # Gerardo n release 00 30 cap, 0 capsule Refill(s) Influenza No 0.5 mL, Memor ia Virus 11-26 Route: IM, l Vaccine, 15:00: Drug Form: Her stone Inactivated 00 SUSP, A-[place]ily Dale- Daily, Start (H3N2)-like date: virus 11/26/13 (A[place] 9:00:00, [place] [facility] [place] X-175C) 23:59:00(S strain / elida as: Influenza Fluzone Virus Quadrivale Vaccine, nt) Inactivated A-[place]- -2006, IVR-148 (H1N1) strain / Influenza Virus Vaccine, Inactivated , B-[place]- -2005-lik Saline 0 No 5 ml, Memoria Flush 0.9% 11-26 Route: l 15:00: IVP, Drug Srikanth 00 Form: INJ, Dosing Weight 84.545, kg, Q12H, Start date: 11/26/13 9:00:00, Duration: 30 day, Stop date: 12/25/13 21:00:00(S elida as: BD Posiflush) Labetalol No 200 mg, 1 Mem oria 3-06 tab, l 15:00: Route: PO, [place] 00 Drug form: TAB, Q12H, Dosing Weight 84.545, kg, Start date: 11/26/13 9:00:00, Duration: 30 day, Stop date: 12/25/13 21:00:00Wi th food. (Same as:Trandat e, Normodyne) Docusate 0 No 100 mg, 10 Mem oria 3-06 mL, Route: l 15:00: PO, Drug [place] 00 form: LIQ, Q12H, Dosing Weight 84.545, kg, Start date: 11/26/13 9:00:00, Duration: 30 day, Stop date: 12/25/13 21:00:00(S elida as: Colace) Influenza 0 No 0.5 mL, Memor ia Virus 11-26 Route: IM, l Vaccine, 15:00: Drug Form: Her stone Inactivated 00 SUSP, A-[place]- Daily, Start (H3N2)-like date: virus 11/26/13 (A[place]- 9:00:00, [place] [facility] X-175C) 23:59:00(S strain / elida as: Influenza Fluzone Virus Quadrivale Vaccine, nt) Inactivated A-[place]- , IVR-148 (H1N1) strain / Influenza Virus Vaccine, Inactivated , B---lik Saline No 5 ml, Memoria Flush 0.9% 11-26 Route: l 15:00: IVP, Drug [place] 00 Form: INJ, Dosing Weight 84.545, kg, Q12H, Start date: 11/26/13 9:00:00, Duration: 30 day, Stop date: 12/25/13 21:00:00(S elida as: BD Posiflush) Labetalol No 200 mg, 1 Mem oria 3-06 tab, l 15:00: Route: PO, Srikanth 00 Drug form: TAB, Q12H, Dosing Weight 84.545, kg, Start date: 11/26/13 9:00:00, Duration: 30 day, Stop date: 12/25/13 21:00:00Wi th food. (Same as:Trandat e, Normodyne) Docusate 0 No 100 mg, 10 Mem oria 3-06 mL, Route: l 15:00: PO, Drug [place] 00 form: LIQ, Q12H, Dosing Weight 84.545, kg, Start date: 11/26/13 9:00:00, Duration: 30 day, Stop date: 12/25/13 21:00:00(S elida as: Colace) Acetaminoph No 650 mg, Mem oria en -06 20.3 mL, l 14:13: Route: PO, Drug form: LIQ, Q4H, Dosing Weight 84.545, kg, PRN Pain 1-3/Temp > 99.5 F, Start date: 11/26/13 8:13:00, Duration: 30 day, Stop date: 12/26/13 8:12:00Max acetaminop hen = 4000mg/day (4 gm/day). (Same as: Tylenol) Saline No 5 ml, Memoria Flush 0.9% 306 Route: l 14:13: IVP, Drug Form: INJ, Dosing Weight 84.545, kg, PRN, PRN Line Flush, Start date: 11/26/13 8:13:00, Duration: 30 day, Stop date: 12/26/13 9:12:00([facility] as: BD Posiflush) Bisacodyl No 10 mg, 1 Jose Luis dennis 3-06 supp, l 14:13: Route: LA, Drug form: SUPP, Q24H, Dosing Weight 84.545, kg, PRN Constipati on, Start date: 11/26/13 8:13:00, Duration: 30 day, Stop date: 12/26/13 8:12:00([facility] As: Dulcolax, Bisco-Lax) Nicardipine No 40 mg, 200 Memoria 3-06 mL, Rate: l 14:13: Start at 5 mgTitrate to maintain SBP 110-150 mmHg., Dosing Weight 84.545, kg, Route: IV, Total Volume: 200, Start Date: 11/26/13 8:13:00, Duration: 30 day, Stop date: 12/26/13 8:12:00, Replace Every: 24 hrSame as: Cardene Concentrat ion: (0.2 mg /1 ml ) Labetalol No 10 mg, 2 Jose Luis dennis 3-06 mL, Route: l 14:13: IVP, Drug form: INJ, Q10Min, Dosing Weight 84.545, kg, PRN Hypertensi on, For SBP > 150mmHg, Start date: 11/26/13 8:13:00, Duration: 3 doses or times, Stop date: Limited # of times Sodium 2013- No 1,000 mL, Memori a Chloride 11-26 Rate: 75 l 0.154 14:13: ml/hr, Srikanth MEQ/ML 00 Infuse Injectable over: 13.3 Solution hr, Route: IV, Dosing Weight 84.545 kg, Total Volume: 1,000, Start date: 11/26/13 8:13:00, Duration: 30 day, Stop date: 12/26/13 8:12:00 Acetaminoph No 650 mg, Mem oria en 06 20.3 mL, l 14:13: Route: PO, [place] 00 Drug form: LIQ, Q4H, Dosing Weight 84.545, kg, PRN Pain 1-3/Temp > 99.5 F, Start date: 11/26/13 8:13:00, Duration: 30 day, Stop date: 12/26/13 8:12:00Max acetaminop hen = 4000mg/day (4 gm/day). (Same as: Tylenol) Saline No 5 ml, Memoria Flush 0.9% 11-26 Route: l 14:13: IVP, Drug Form: INJ, Dosing Weight 84.545, kg, PRN, PRN Line Flush, Start date: 11/26/13 8:13:00, Duration: 30 day, Stop date: 12/26/13 9:12:00(Sa me as: BD Posiflush) Bisacodyl No 10 mg, 1 Jose Luis dennis 3-06 supp, l 14:13: Route: LA, [place] 00 Drug form: SUPP, Q24H, Dosing Weight 84.545, kg, PRN Constipati on, Start date: 11/26/13 8:13:00, Duration: 30 day, Stop date: 12/26/13 8:12:00(Sa me As: Dulcolax, Bisco-Lax) Nicardipine No 40 mg, 200 Memoria 3-06 mL, Rate: l 14:13: Start at 5 Srikanth 00 mgTitrate to maintain SBP 110-150 mmHg., Dosing [...] No 12.5 gm, Memor ia 50% Syringe 3-06 25 mL, l 13:31: Route: [place] 00 IVP, Drug Form: INJ, Dosing Weight 78.182, kg, PRN, PRN Abnormal Lab Result, Start date: 11/26/13 7:31:00, Duration: 30 day, Stop date: 12/26/13 8:30:00 Regular 2014-0 No 5 unit, Memoria Insulin, 3-06 0.05 mL, l Human 100 13:31: Route: Gerardo n UNT/ML 00 SUB-Q, Injectable Drug form: Solution SOLN, PRN, Dosing Weight 78.182, kg, PRN Abnormal Lab Result, Start date: 11/26/13 7:31:00, Duration: 30 day, Stop date: 12/26/13 8:30:00 60 units) Stable for 28 days at room temperatur e Expires in days from ____Date Dextrose 2014-0 No 12.5 gm, Memor ia 50% Syringe 3-06 25 mL, l 13:31: Route: [place] 00 IVP, Drug Form: INJ, Dosing Weight 78.182, kg, PRN, PRN Abnormal Lab Result, Start date: 11/26/13 7:31:00, Duration: 30 day, Stop date: 12/26/13 8:30:00 Regular 2014-0 No 5 unit, Memoria Insulin, 3-06 0.05 [...] Immunizations Ordered Filled Immunization Date Status Comments [facility] e Immunization Name Name SARS-COV-2 COVID-19 2021-11-23 [...] y of Vaccine Quad .5 mL 00:00:00 [facility] Influenza Virus 2021-08-23 Completed Universit [facility] of Vaccine Quad .5 mL 00:00:00 [facility] Influenza Virus 2021-08-23 Completed Universit y of Vaccine Quad .5 mL 00:00:00 [facility] SARS-COV-2 COVID-19 2020-12-30 Completed Unive rsity of PFIZER VACCINE 00:00:00 [facility] Branch SARS-COV-2 COVID-19 2020-12-30 Completed Unive rsity of PFIZER VACCINE 00:00:00 [facility] SARS-COV-2 COVID-19 2020-12-30 Completed Unive rsity of PFIZER VACCINE 00:00:00 [facility] SARS-COV-2 COVID-19 2020-12-30 Completed Unive rsity of PFIZER VACCINE 00:00:00 [facility] SARS-COV-2 COVID-19 2020-12-30 Completed Unive rsity of PFIZER VACCINE 00:00:00 [facility] SARS-COV-2 COVID-19 2020-12-30 Completed Unive rsity of PFIZER VACCINE 00:00:00 [facility] SARS-COV-2 COVID-19 2020-12-07 Completed Unive rsity of PFIZER VACCINE 00:00:00 [facility] SARS-COV-2 COVID-19 2020-12-07 Completed Unive rsity of PFIZER VACCINE 00:00:00 [facility] SARS-COV-2 COVID-19 2020-12-07 Completed Unive rsity of PFIZER VACCINE 00:00:00 [facility] SARS-COV-2 COVID-19 2020-12-07 Completed Unive rsity of PFIZER VACCINE 00:00:00 [facility] SARS-COV-2 COVID-19 2020-12-07 Completed Unive rsity of PFIZER VACCINE 00:00:00 [facility] SARS-COV-2 COVID-19 2020-12-07 Completed Unive rsity of PFIZER VACCINE 00:00:00 [facility] Influenza Virus 2020-08-16 Completed Universit y of Vaccine Quad .5 mL 00:00:00 [facility] 6+ MO [facility] Influenza Virus 2020-08-16 Completed [facility]it y of Vaccine Quad .5 mL 00:00:00 [facility] IM 6+ MO Branch Influenza Virus 2020-08-16 Completed [facility]it y of Vaccine Quad .5 mL 00:00:00 [facility] IM 6+ MO Branch Influenza Virus 2019-07-01 Completed Universit y of Vaccine Quad .5 mL 00:00:00 [facility] IM 6+ MO Branch Influenza Virus 2019-07-01 Completed Universit y of Vaccine Quad .5 mL 00:00:00 [facility] 6+ MO [facility] Influenza Virus 2019-07-01 Completed Universit y of Vaccine Quad .5 mL 00:00:00 [facility] 6+ MO [facility] Influenza Virus 2018-08-22 Completed Universit y of Vaccine Quad IM 3+ 00:00:00 [facility] Branch Influenza Virus 2018-08-22 Completed Universit y of Vaccine Quad IM 3+ 00:00:00 [facility] Influenza Virus 2018-08-22 Completed Universit y of Vaccine Quad IM 3+ 00:00:00 [facility] Branch Pneumococcal 13 2017-11-23 Completed Universit y of Conjugate, PCV13 00:00:00 [facility] dical (Prevnar 13) Branch Pneumococcal 13 2017-11-23 Completed Universit y of Conjugate, PCV13 00:00:00 [facility] dical (Prevnar 13) Branch Pneumococcal 13 2017-11-23 Completed Universit y of Conjugate, PCV13 00:00:00 [facility] dical (Prevnar 13) Branch pneumococcal 2013-11-[address] [facility] [place] 23-valent vaccine 22:02:00 pneumococcal 2013-11-[address] [facility] [place] 23-valent vaccine 22:02:00 Pneumococcal 2013-11-30 Completed University o f Polysaccharide, 00:00:00 [facility] ical PPSV23 (PNEUMOVAX) Branch Pneumococcal 2013-11-30 Completed University o f Polysaccharide, 00:00:00 [facility] ical PPSV23 (PNEUMOVAX) Branch Pneumococcal 2013-11-30 Completed University o f Polysaccharide, 00:00:00 [facility] ical PPSV23 (PNEUMOVAX) Branch influenza virus 2013-11-26 Completed [facility] Srikanth vaccine, 23:20:00 inactivated influenza virus 2013-11-26 Completed [facility] Srikanth vaccine, 23:20:00 inactivated Influenza Virus 2013-11-26 Completed Universit y of Vaccine 00:00:00 [facility] Influenza Virus 2013-11-26 Completed Universit y of Vaccine 00:00:00 [facility] Influenza Virus 2013-11-26 Completed Universit y of Vaccine 00:00:00 [facility] Vital Signs Vital Name Observation Time Observation Value Comments Source Systolic blood 2022-05-18 131 mm[Hg] University of pressure 21:19:00 [facility] Diastolic blood 2022-05-18 90 mm[Hg] University o f pressure 21:19:00 [facility] Heart rate 2022-05-18 79 /min [facility] 21:18:00 [facility] Respiratory rate 2022-05-18 18 /min [facility] 21:18:00 [facility] Body height 2022-05-18 147.3 cm [facility] 21:18:00 [facility] Body weight 2022-05-18 72.122 kg [facility] 21:18:00 [facility] BMI 2022-05-18 33.23 kg/m2 [facility] 21:18:00 [facility] Oxygen saturation 2022-05-18 95 /min [facility] in Arterial blood 21:18:00 [facility] by Pulse oximetry [place] BP Systolic 2018-02-03 108 mm[Hg] Location: LUE; [facility] 08:49:00 Position: Sitting BP Diastolic 2018-02-03 77 mm[Hg] Location: LUE; [facility] 08:49:00 Position: Sitting Height 2018-02-03 57 [in_us] [facility] 08:49:00 Weight 2018-02-03 160.2 [lb_av] [facility] 08:49:00 Body Mass Index 2018-02-03 34.67 kg/m2 [facility] Calculated 08:49:00 Heart Rate 2018-02-03 81 /min Location: L [facility] 08:49:00 Brachial Artery; BP Systolic 2017-12-30 102 mm[Hg] Location: LUE; [facility] 11:33:00 Position: Sitting BP Diastolic 2017-12-30 69 mm[Hg] Location: LUE; [facility] 11:33:00 Position: Sitting Height 2017-12-30 57 [...] BP Diastolic 2017-07-29 79 mm[Hg] Location: LUE; [facility] 10:30:00 Position: Sitting Height 2017-07-29 57 [in_us] [facility] 10:30:00 Weight 2017-07-29 166 [lb_av] [facility] 10:30:00 Body Mass Index 2017-07-29 35.92 kg/m2 [facility] Calculated 10:30:00 Heart Rate 2017-07-29 88 /min Location: L [facility] 10:30:00 Brachial Artery; Respitory Rate 2017-01-05 [facility] 11:25:00 Systolic (mm Hg) 2017-01-05 [facility] 11:25:00 Diastolic (mm Hg) 2017-01-05 [facility] 11:25:00 Temperature Oral 2017-01-05 97.8 F [facility] (F) 11:25:00 Respitory Rate 2017-01-05 [facility] 09:56:00 Systolic (mm Hg) 2017-01-05 [facility] 09:56:00 Diastolic (mm Hg) 2017-01-05 [facility] 09:56:00 Temperature Oral 2017-01-05 97.6 F [facility] (F) 09:56:00 Systolic (mm Hg) 2017-01-05 [facility] 08:16:00 Diastolic (mm Hg) 2017-01-05 [facility] [...] ermann 13:00:00 Temperature Oral 2014-03-19 97.9 F [facility] Vaibhav rmann (F) 13:00:00 Heart Rate 2014-03-19 [facility] Gerardo n 13:00:00 Respitory Rate 2014-03-19 [facility] 08:54:00 Systolic (mm Hg) 2014-03-19 [facility] 08:54:00 Temperature Oral 2014-03-19 98.0 F [facility] Vaibhav rmann (F) 08:54:00 Heart Rate 2014-03-19 [facility]ardo n 08:54:00 Diastolic (mm Hg) 2014-03-19 [facility] 08:54:00 Diastolic (mm Hg) 2014-03-19 [facility] 04:44:00 Systolic (mm Hg) 2014-03-19 [facility] 04:44:00 Temperature Oral 2014-03-19 97.3 F [facility] Vaibhav rmann (F) 04:44:00 Respitory Rate 2014-03-19 [facility] [...] tee 17:57:00 Temperature Oral 2014-01-01 98.4 F [facility] (F) 17:57:00 Diastolic (mm Hg) 2014-01-01 [facility] 12:31:00 Systolic (mm Hg) 2014-01-01 [facility] 12:31:00 Heart Rate 2014-01-01 [facility]ardo n 12:31:00 Respitory Rate 2014-01-01 [facility] 10:55:00 Temperature Oral 2014-01-01 98.8 F [facility] (F) 10:55:00 Systolic (mm Hg) 2014-01-01 [facility] 10:55:00 Diastolic (mm Hg) 2014-01-01 [facility] 10:55:00 Heart Rate 2014-01-01 [facility]ardo n 10:55:00 Respitory Rate 2014-01-01 [facility] 03:47:00 Temperature Oral 2014-01-01 98.4 F [facility] Vaibhav rmann (F) 03:47:00 Height 2013-12-01 147.32 cm [facility] 00:06:00 BMI Calculated 2013-12-01 [facility] 00:06:00 Weight 2013-12-01 [facility] 00:06:00 Systolic (mm Hg) 2013-11-30 [facility] 20:32:00 Heart Rate 2013-11-30 [facility] n 20:32:00 Respitory Rate 2013-11-30 [facility] 20:32:00 Temperature Oral 2013-11-30 98.0 F [facility] (F) 20:32:00 Diastolic (mm Hg) 2013-11-30 [facility] 20:32:00 Respitory Rate 2013-11-30 [facility] 17:01:00 Diastolic (mm Hg) 2013-11-30 [facility] 17:01:00 Temperature Oral 2013-11-30 98.0 F [facility] (F) 17:01:00 Heart Rate 2013-11-30 [facility]ardo n 17:01:00 Systolic (mm Hg) 2013-11-30 [facility] 17:01:00 Respitory Rate 2013-11-30 [facility] 13:37:00 Diastolic (mm Hg) 2013-11-30 Trevor Morfin ermann 13:37:00 Systolic (mm Hg) 2013-11-30 Trevor Esposito rmann 13:37:00 Heart Rate 2013-11-30 Trevor Carrillo n 13:37:00 Temperature Oral 2013-11-30 97.3 F Trevor Esposito rmann (F) 13:37:00 Weight 2013-11-26 Trevor Carrillo n 13:48:00 Height 2013-11-26 147.32 cm Trevor zafar 13:48:00 BMI Calculated 2013-11-26 Trevor oliveira 13:48:00 Procedures Procedure Date / Time Performed Performing Clinician Mayank ndiaye CT ABDOMEN PELVIS WO 2022-05-29 13:16:24 Mann Perdomo [facility] [[facility]] Toxin - Botox 2017-12-04 00:00:00 [facility] [[facility] Toxin - Botox 2017-11-04 00:00:00 [facility] section Trevor Carrillo andrade Eye operation [facility] Srikanth Plan of Care Planned Activity Planned Date Details Comments Source Diagnostic Test Pending 2017-12-23 00:00:00 [[facility]] Toxin - Botox [facility] [code = [[facility]] Toxin - Botox] Encounters Start End Encounter Admission Attending Care Care Encounter Source Date/Time Date/Time Type Type Clinicians Facility Department ID 2022-06-05 Outpatient [facility] [id number] [place] 08:43:28 [id number] [facility] 2022-06-01 Outpatient [facility] [id number] [place] 15:05:40 [id number] [facility] 2022-07-18 2022-07-18 Outpatient CHIDI [facility] [id number] [place] 09:00:00 09:00:00 [facility] 2022-06-12 2022-06-12 Outpatient R DEL [facility] [id number] Univers 16:00:00 16:00:00 LAKESHIA [id number] [facility] 2022-06-08 2022-06-08 Outpatient R MANN PERDOMO [facility] [id number] Univers 15:00:00 15:00:00 MANN PERDOMO [id number] [facility] 2022-06-08 2022-06-08 Outpatient R MANN PERDOMO [facility] [id number] Univers 15:00:00 15:00:00 [facility]O [facility] 2022-06-05 2022-06-05 Outpatient CHIDI [facility] [id number] [place] 13:00:00 13:00:00 [facility] 2022-05-29 2022-05-29 Outpatient R MANN PERDOMO [facility] [id number] Univers 07:46:51 23:59:00 [facility] 2022-05-29 2022-05-29 [facility] [id number] [facility] 07:46:51 23:59:00 Encounter Mann MARCELO [id number] [id number] [id number] [address] 2022-05-18 2022-05-18 [facility] [id number] [facility] 16:20:00 17:41:58 Visit Lakeshia ROBERTSON [id number] [id number] [id number] [address] 2022-05-18 2022-05-18 [facility] [id number] 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 2, Adc Lab [facility] [id number] 10:59:50 11:14:50 Visit Marcelo [id number] [place] [id number] Professio [id number] [facility] 353 [facility] 2020-08-16 2020-08-16 Office Del [facility] [id number] 13:06:10 14:31:10 Visit Lakeshia Dominguez Marcelo [id number] [place] [id number] Professio [id number] [facility] 231 [facility] 2018-02-03 2018-02-03 Ashley CA[facility], [facility] Neurology [id number] [place] 09:00:00 09:00:00 t; [place] Physi Phil Garcia M.D. 2017-12-30 2017-12-30 [facility] Neurology [id number] [place] 11:30:00 11:30:00 t; Rakel LIMON M.D. ans JEFFREY, M.D. 2017-12-23 2017-12-23 [facility], [facility] [id number] [place] 11:30:00 11:30:00 t; [place] Physi Phil Garcia M.D. 2017-11-04 2017-11-04 [facility], [facility] Neurology [id number] [place] 10:00:00 10:00:00 t; [place] Physi Phil Garcia M.D. 2017-10-28 2017-10-28 Ashley CASTILLO, [facility] [id number] [place] 10:00:00 10:00:00 t; [place] Physi Phil Garcia M.D. 2017-10-15 2017-10-15 Appointvanesa MURILLO, [facility] [id number] [place] 11:30:00 11:30:00 t; ROBSON MURILLO, DESTINATION SIGN REPAIRER Physici MUNACHI, ans DESTINATION SIGN REPAIRER 2017-09-11 2017-09-11 Appointmen MARIYAA, [facility] [id number] [place] 09:30:00 09:30:00 t; YUMIKO MURILLOACHI, DESTINATION SIGN REPAIRER Physici MUNACHI, ans DESTINATION SIGN REPAIRER 2017-09-10 2017-09-10 Appointmen CHIDI, [facility] [id number] [place] 09:30:00 09:30:00 t; OKPALA, MUNACHI, DESTINATION SIGN REPAIRER Physici MUNACHI, ans DESTINATION SIGN REPAIRER 2017-09-09 2017-09-09 Appointvanesa CASTILLO, [facility] UTP [id number] [place] 10:00:00 10:00:00 t; Rakel LIMON M.D. ans JEFFREY, M.D. 2017-07-29 2017-07-29 Appointvanesa CASTILLO, [facility] UTP [id number] [place] 11:30:00 11:30:00 t; [place] Physi Phil Garcia M.D. 2017-07-22 2017-07-22 Appointvanesa CASTILLO, [facility] UTP [id number] [place] 11:30:00 11:30:00 t; Rakel LIMON M.D. ans JEFFREY, M.D. 2017-06-24 2017-06-24 Ashley CASTILLO, [facility] UTP [id number] [place] 14:00:00 14:00:00 t; Rakel LIMON M.D. ans JEFFREY, M.D. 2017-06-14 2017-06-15 Outpt Diag nullFlavo [facility] [id number] Memoria 17:20:00 04:59:00 Services r Outpatient 00 l Imaging [facility] 2017-06-14 2017-06-15 Outpt Diag nullFlavo [facility] [id number] Memoria 17:20:00 04:59:00 Services r Outpatient 00 l Imaging [facility] 2017-06-14 2017-06-14 Outpatient Chidi [facility] [id number] 12:20:00 23:59:00 [place] 00 Nkiru 2017-06-14 2017-06-14 Appointmen CHIDI, [facility] UTP [id number] [place] 10:00:00 10:00:00 t; ROBSON MURILLO, DESTINATION SIGN REPAIRER Physici ROBSON, ans DESTINATION SIGN REPAIRER 2017-03-15 2017-03-15 Appointmen CHIDI, [facility] UTP [id number] [place] 10:30:00 10:30:00 t; ROBSON MURILLO, DESTINATION SIGN REPAIRER Physici ROBSON, ans DESTINATION SIGN REPAIRER 2017-01-05 2017-01-05 Emergency nullFlavo [facility] [id number] Memoria 06:29:00 11:27:[address] 2017-01-05 2017-01-05 Emergency nullFlavo [facility] [id number] Memoria 06:29:00 11:27:00 r Srikanth 05 [facility] 2017-01-05 2017-01-05 Outpatient eKrmit [facility] [id number] 01:29:00 06:27:00 Rahul Limon 2014-03-21 2014-03-21 EC nullFlavo [facility] [id number] Memoria 02:06:00 06:23:00 Emergency r Blackwell 01 [facility] 2014-03-21 2014-03-21 EC nullFlavo [facility] [id number] Memoria 02:06:00 06:23:00 Emergency r Srikanth 01 [facility] 2014-03-20 2014-03-21 Outpatient Ramesh, 2.16.840. [id number]. 4 [id number] 21:06:00 01:23:00 Smooth [id number]. [id number] 01 Tima 3.615.0.1 5.0.729 64 9745-06-26 2014-03-19 OBS nullFlavo [facility] [id number] Memoria 01:46:00 17:05:00 Observatio r Srikanth 00 l n Patient [facility] 2014-03-18 2014-03-19 OBS nullFlavo [facility] [id number] Memoria 01:46:00 17:05:00 Observatio r Sriknath 00 l n Patient [facility] 2014-03-17 2014-03-19 Outpatient Gustavo, 2.16.840. 2.16.840.1. [id number] 20:46:00 12:05:00 Yana [id number]. [id number] Zaida 3.615.0.1 5.0.657 58 0496-03-10 2014-01-01 Inpatient nullFlavo [facility] [id number] Memoria 23:52:00 18:40:00 Rehab r [address] 2013-11-30 2014-01-01 Inpatient nullFlavo [facility] [id number] Memoria 23:52:00 18:40:00 Rehab r [address] 2013-11-30 2014-01-01 Outpatient Barbra, 2.16.840. 2.16.840.1. [id number] 18:52:00 13:40:00 Rebecca [id number]. [id number] Bimal 3.615.0.1 5.0.814 79 1018-03-06 2013-11-30 Inpatient [facility] [id number] Memoria 12:38:00 23:23:00 r Blackwell [id number] [address] 2013-11-26 2013-11-30 Inpatient [place] [id number] Memoria 12:38:00 23:23:00 r Blackwell [id number] [address] 2013-11-26 2013-11-30 Outpatient Shannon, 2.16.840. 2.16.840.1. [id number] 06:38:00 18:23:00 Anjail [id number]. [id number] 65 Jodi 3.615.0.1 5.0.101 01 Results Test [...] to interpret this result as dequan l/abnormal. [facility]DM[facility]HQ[facility]4958[facility]66-74 09:54:30 Test Item Value Reference Range Interpretation Comments C-REACTIVE PROTEIN (test code = 6.7 C-REACTIVE PROTEIN) [facility] CenterUzrghgoPBMZRAEXMM1507-43-49 09:54:30 Test Item Value Reference Range Interpretation Comments Sed Rate (test code = 28 See_Comment [Auto mated message] The Sed Rate) system which ge nerated this result transmit blayne reference range : <=20. The reference range was not used to interpr et this result as dequan l/abnormal. [facility] CenterPyilzqkSCHXBZMNZY1312-88-63 09:54:30 Test Item Value Reference Range Interpretation Comments C-REACTIVE PROTEIN (test code = 6.7 C-REACTIVE PROTEIN) [facility] [id number] 09:19:56 Test Item Value Reference Range Interpretation Comments UA Spec Grav (test code = UA Spec 1.010 1 Grav) [facility] AND [id number] 09:19:56 Test Item Value Reference Range Interpretation Comments UA Protein (test code = UA Negative mg/dL Protein) [facility] AND [id number] 09:19:56 Test Item Value Reference Range Interpretation Comments UA pH (test code = UA pH) 6.0 1 5.0-8.0 [facility] AND [id number] 09:19:56 Test Item Value Reference Range Interpretation Comments UA Ketones (test code = UA Negative mg/dL Ketones) [facility] AND [id number] 09:19:56 Test Item Value Reference Range Interpretation Comments UA Glucose (test code = UA Negative mg/dL Glucose) [facility] AND [id number] 09:19:56 Test Item Value Reference Range Interpretation Comments UA Bili (test code = Negative *NA*(01/05/17 UA Bili) 4:19 AM) [facility] AND [id number] 09:19:56 Test Item Value Reference Range Interpretation Comments UA Color (test code = Yellow *NA*(01/05/17 UA Color) 4:19 AM) [facility] AND [id number] 09:19:56 Test Item Value Reference Range Interpretation Comments UA Turbidity (test code = Clear (01/05/17 4:19 UA Turbidity) AM) [facility] AND [id number] 09:19:56 Test Item Value Reference Range Interpretation Comments UA Urobilinogen (test code = UA 0.2 0.1-1.0 Urobilinogen) [facility] AND [id number] 09:19:56 Test Item Value Reference Range Interpretation Comments UA Blood (test code = Negative (01/05/17 4:19 UA Blood) AM) [facility] AND [id number] 09:19:56 Test Item Value Reference Range Interpretation Comments UA Leuk Est (test Negative (01/05/17 4:19 code = UA Leuk Est) AM) [facility] AND [id number] 09:19:56 Test Item Value Reference Range Interpretation Comments UA Nitrite (test code Negative (01/05/17 4:19 = UA Nitrite) AM) [facility] AND [id number] 09:19:56 Test Item Value Reference Range Interpretation Comments UA WBC (test code = UA WBC) 0-2 /HPF [facility] AND [id number] 09:19:56 Test Item Value Reference Range Interpretation Comments UA Sq Epi (test code = UA Sq Epi) Few /LPF [facility] AND [id number] 09:19:56 Test Item Value Reference Range Interpretation Comments UA Bacteria (test code = UA Occasional /HPF Bacteria) [facility] AND [id number] 09:19:56 Test Item Value Reference Range Interpretation Comments UA RBC (test code = 0-2 /HPF See_Comment [Automa blayne message] The UA RBC) system which ge nerated this result tra nsmitted reference range : <=2. The reference range was not used to interpr et this result as dequan l/abnormal. [facility] AND [id number] 09:19:56 Test Item Value Reference Range Interpretation Comments UA Mucus (test code = UA Mucus) Few /LPF [facility] AND [id number] 09:19:56 Test Item Value Reference Range Interpretation Comments UA Spec Grav (test code = UA Spec 1.010 1 Grav) [facility] AND [id number] 09:19:56 Test Item Value Reference Range Interpretation Comments UA Protein (test code = UA Negative mg/dL Protein) [facility] AND [id number] 09:19:56 Test Item Value Reference Range Interpretation Comments UA pH (test code = UA pH) 6.0 1 5.0-8.0 [facility] AND [id number] 09:19:56 Test Item Value Reference Range Interpretation Comments UA Ketones (test code = UA Negative mg/dL Ketones) [facility] AND [id number] 09:19:56 Test Item Value Reference Range Interpretation Comments UA Glucose (test code = UA Negative mg/dL Glucose) [facility] AND [id number] 09:19:56 Test Item Value Reference Range Interpretation Comments UA Bili (test code = Negative *NA*(01/05/17 UA Bili) 4:19 AM) [facility] AND [id number] 09:19:56 Test Item Value Reference Range Interpretation Comments UA Color (test code = Yellow *NA*(01/05/17 UA Color) 4:19 AM) [facility] [id number] 09:19:56 Test Item Value Reference Range Interpretation Comments UA Turbidity (test code = Clear (01/05/17 4:19 UA Turbidity) AM) [facility] AND [id number] 09:19:56 Test Item Value Reference Range Interpretation Comments UA Urobilinogen (test code = UA 0.2 0.1-1.0 Urobilinogen) [facility] AND [id number] 09:19:56 Test Item Value Reference Range Interpretation Comments UA Blood (test code = Negative (01/05/17 4:19 UA Blood) AM) [facility] AND [id number] 09:19:56 Test Item Value Reference Range Interpretation Comments UA Leuk Est (test Negative (01/05/17 4:19 code = UA Leuk Est) AM) [facility] AND [id number] 09:19:56 Test Item Value Reference Range Interpretation Comments UA Nitrite (test code Negative (01/05/17 4:19 = UA Nitrite) AM) [facility] [id number] 09:19:56 Test Item Value Reference Range Interpretation Comments UA WBC (test code = UA WBC) 0-2 /HPF [facility] AND [id number] 09:19:56 Test Item Value Reference Range Interpretation Comments UA Sq Epi (test code = UA Sq Epi) Few /LPF [facility] [id number] 09:19:56 Test Item Value Reference Range Interpretation Comments UA Bacteria (test code = UA Occasional /HPF Bacteria) [facility] AND [id number] 09:19:56 Test Item Value Reference Range Interpretation Comments UA RBC (test code = 0-2 /HPF See_Comment [Automa blayne message] The UA RBC) system which ge nerated this result tra nsmitted reference range : <=2. The reference range was not used to interpr et this result as dequan l/abnormal. [facility] [id number] 09:19:56 Test Item Value Reference Range Interpretation Comments UA Mucus (test code = UA Mucus) Few /LPF [facility] HermannCHEM [id number] 06:57:00 Test Item Value Reference Range Interpretation Comments eGFR (test code = eGFR) 78 [place] 942067-04-15 06:57:00 Test Item Value Reference Range Interpretation Comments Calcium Lvl (test code = Calcium Lvl) 9.1 8.5-10.5 [place] [id number] 06:57:00 Test Item Value Reference Range Interpretation Comments AGAP (test code = AGAP) 11.2 10.0-20.0 [facility]2017-04-15 06:57:00 Test Item Value Reference Range Interpretation Comments CO2 (test code = CO2) 30 24-32 [facility]2017-04-15 06:57:00 Test Item Value Reference Range Interpretation Comments Chloride Lvl (test code = Chloride Lvl) 103 95-109 [facility]2017-04-15 06:57:00 Test Item Value Reference Range Interpretation Comments Potassium Lvl (test code = Potassium 4.2 3.5-5.1 Lvl) [facility]2017-04-15 06:57:00 Test Item Value Reference Range Interpretation Comments Sodium Lvl (test code = Sodium Lvl) 140 135-145 [facility]2017-04-15 06:57:00 Test Item Value Reference Range Interpretation Comments Creatinine Lvl (test code = Creatinine 0.87 0.50-1.40 Lvl) [facility]2017-04-15 06:57:00 Test Item Value Reference Range Interpretation Comments BUN (test code = BUN) 18 7-22 [facility]2017-04-15 06:57:00 Test Item Value Reference Range Interpretation Comments Glucose Lvl (test code = Glucose Lvl) 128 70-99 [facility]FwwjeehPKQYPVWLAK9108-00-46 06:57:00 Test Item Value Reference Range Interpretation Comments Monocytes # (test code 0.6 See_Comment [Aut omated message] The = Monocytes #) system which generated this result tra nsmitted reference range : <=0.8. The reference r celio was not used to int erpret this result as normal/abnormal . [facility] H[id number] 06:57:00 Test Item Value Reference Range Interpretation Comments Eosinophils # (test code 0.2 See_Comment [A utomated message] The = Eosinophils #) system whic h generated this result tra nsmitted reference range : <=0.5. The reference r celio was not used to int erpret this result as normal/abnormal . [facility] HospitalHbismlyNJEWNCOICJ1711-59-16 06:57:00 Test Item Value Reference Range Interpretation Comments Basophils # (test code 0.1 See_Comment [Aut omated message] The = Basophils #) system which generated this result tra nsmitted reference range : <=0.2. The reference r celio was not used to int erpret this result as normal/abnormal . [facility] HospitalHbrfqlkCJBPVAKGTR0156-49-58 06:57:00 Test Item Value Reference Range Interpretation Comments Eosinophils (test code = 2.4 See_Comment [A utomated message] The Eosinophils) system which ge nerated this result tra nsmitted reference range : <=4.0. The reference r celio was not used to int erpret this result as normal/abnormal . [facility] HospitalAvdpcqgEOGXQCHZTE0151-74-83 06:57:00 Test Item Value Reference Range Interpretation Comments Basophils (test code = 0.6 See_Comment [Aut omated message] The Basophils) system which ge nerated this result tra nsmitted reference range : <=1.0. The reference r celio was not used to int erpret this result as normal/abnormal . [facility] HospitalXcubmvtBCVLPQUOJP9276-94-78 06:57:00 Test Item Value Reference Range Interpretation Comments Segs-Bands # (test code = Segs-Bands #) 5.3 1.5-8.1 [facility] HospitalIprnouhWXGZSIRCDD9174-06-09 06:57:00 Test Item Value Reference Range Interpretation Comments Segs (test code = Segs) 55.9 45.0-75.0 [facility] HospitalCmwwydtBHOFSLZSVX9714-06-78 06:57:00 Test Item Value Reference Range Interpretation Comments Lymphocytes (test code = Lymphocytes) 34.3 20.0-40.0 [facility] HospitalEwgzieoMIXNYNTTFJ6694-13-44 06:57:00 Test Item Value Reference Range Interpretation Comments Monocytes (test code = Monocytes) 6.8 2.0-12.0 [facility] HospitalWeoogqwYGKICTNUAA3365-06-25 06:57:00 Test Item Value Reference Range Interpretation Comments Lymphocytes # (test code = Lymphocytes 3.2 1.0-5.5 #) [facility] HospitalUyjdqavJOSBMNQLIN2503-25-78 06:57:00 Test Item Value Reference Range Interpretation Comments Hct (test code = Hct) 40.3 36.0-48.0 [facility] HospitalKpcnduzRZADPVHHNV4458-84-72 06:57:00 Test Item Value Reference Range Interpretation Comments Hgb (test code = Hgb) 14.2 12.0-16.0 [facility] HospitalKtiesjqULHDDRYLGZ2183-87-09 06:57:00 Test Item Value Reference Range Interpretation Comments RBC (test code = RBC) 4.54 4.20-5.40 [facility] HospitalWijxutzQAYGRYJMKV2929-18-05 06:57:00 Test Item Value Reference Range Interpretation Comments WBC (test code = WBC) 9.4 3.7-10.4 [facility] HospitalQetgakgICQBPESNFM2964-84-43 06:57:00 Test Item Value Reference Range Interpretation Comments MCV (test code = MCV) 88.6 80.0-98.0 [facility] HospitalSsxbdkiVDWWGWZRWC2933-48-32 06:57:00 Test Item Value Reference Range Interpretation Comments MCH (test code = MCH) 31.3 pg 27.0-31.0 [facility] HospitalSsdekjsEBJLBKQNWX0807-85-83 06:57:00 Test Item Value Reference Range Interpretation Comments MPV (test code = MPV) 7.4 7.4-10.4 [facility] HospitalXjejfcsFRAOMUXDTV8946-03-38 06:57:00 Test Item Value Reference Range Interpretation Comments Platelet (test code = Platelet) 295 133-450 [facility] HospitalNuskkwfZVSVMFNWTU3034-41-30 06:57:00 Test Item Value Reference Range Interpretation Comments RDW (test code = RDW) 13.7 11.5-14.5 [facility] HospitalRvmjxvuZAPRFKKZRI9230-02-53 06:57:00 Test Item Value Reference Range Interpretation Comments MCHC (test code = MCHC) 35.3 32.0-36.0 [facility]2017-04-15 06:57:00 Test Item Value Reference Range Interpretation Comments eGFR (test code = eGFR) 78 [facility]2017-04-15 06:57:00 Test Item Value Reference Range Interpretation Comments Calcium Lvl (test code = Calcium Lvl) 9.1 8.5-10.5 [facility]2017-04-15 06:57:00 Test Item Value Reference Range Interpretation Comments AGAP (test code = AGAP) 11.2 10.0-20.0 [facility]2017-04-15 06:57:00 Test Item Value Reference Range Interpretation Comments CO2 (test code = CO2) 30 24-32 [facility]2017-04-15 06:57:00 Test Item Value Reference Range Interpretation Comments Chloride Lvl (test code = Chloride Lvl) 103 95-109 [facility]2017-04-15 06:57:00 Test Item Value Reference Range Interpretation Comments Potassium Lvl (test code = Potassium 4.2 3.5-5.1 Lvl) [facility]2017-04-15 06:57:00 Test Item Value Reference Range Interpretation Comments Sodium Lvl (test code = Sodium Lvl) 140 135-145 [facility]2017-04-15 06:57:00 Test Item Value Reference Range Interpretation Comments Creatinine Lvl (test code = Creatinine 0.87 0.50-1.40 Lvl) [facility]2017-04-15 06:57:00 Test Item Value Reference Range Interpretation Comments BUN (test code = BUN) 18 7-22 [facility]2017-04-15 06:57:00 Test Item Value Reference Range Interpretation Comments Glucose Lvl (test code = Glucose Lvl) 128 70-99 [facility] HospitalGkvoraeXKMUGRLLIP5586-43-24 06:57:00 Test Item Value Reference Range Interpretation Comments Monocytes # (test code 0.6 See_Comment [Aut omated message] The = Monocytes #) system which generated this result tra nsmitted reference range : <=0.8. The reference r celio was not used to int erpret this result as normal/abnormal . [facility] HospitalDklbnqgIDEIBXCKSR5022-93-23 06:57:00 Test Item Value Reference Range Interpretation Comments Eosinophils # (test code 0.2 See_Comment [A utomated message] The = Eosinophils #) system whic h generated this result tra nsmitted reference range : <=0.5. The reference r celio was not used to int erpret this result as normal/abnormal . [facility] HospitalSfrqetfFLDJVWQEUZ3417-29-05 06:57:00 Test Item Value Reference Range Interpretation Comments Basophils # (test code 0.1 See_Comment [Aut omated message] The = Basophils #) system which generated this result tra nsmitted reference range : <=0.2. The reference r celio was not used to int erpret this result as normal/abnormal . [facility] HospitalQypriqrVIYPMCQBOX1354-07-44 06:57:00 Test Item Value Reference Range Interpretation Comments Eosinophils (test code = 2.4 See_Comment [A utomated message] The Eosinophils) system which ge nerated this result tra nsmitted reference range : <=4.0. The reference r celio was not used to int erpret this result as normal/abnormal . [facility] HospitalLjsgdydQQCEYVASJG7423-60-49 06:57:00 Test Item Value Reference Range Interpretation Comments Basophils (test code = 0.6 See_Comment [Aut omated message] The Basophils) system which ge nerated this result tra nsmitted reference range : <=1.0. The reference r celio was not used to int erpret this result as normal/abnormal . [facility] HospitalRjuexclGDKRKHXZVQ9725-25-47 06:57:00 Test Item Value Reference Range Interpretation Comments Segs-Bands # (test code = Segs-Bands #) 5.3 1.5-8.1 [facility] HospitalQnhthdcNFZQOKCOYQ5771-06-65 06:57:00 Test Item Value Reference Range Interpretation Comments Segs (test code = Segs) 55.9 45.0-75.0 [facility] HospitalGxxznlcETRVVDERFL9234-09-03 06:57:00 Test Item Value Reference Range Interpretation Comments Lymphocytes (test code = Lymphocytes) 34.3 20.0-40.0 [facility] HospitalUryyrezPKGCSGAWKB2626-26-82 06:57:00 Test Item Value Reference Range Interpretation Comments Monocytes (test code = Monocytes) 6.8 2.0-12.0 [facility] HospitalTkmwwoaGQNHRBYCXL4845-63-99 06:57:00 Test Item Value Reference Range Interpretation Comments Lymphocytes # (test code = Lymphocytes 3.2 1.0-5.5 #) [facility] HospitalDozmztqKOYKDXXMBE3106-79-35 06:57:00 Test Item Value Reference Range Interpretation Comments Hct (test code = Hct) 40.3 36.0-48.0 [facility] HospitalPlfohiyTVHXFJIEEE3667-96-85 06:57:00 Test Item Value Reference Range Interpretation Comments Hgb (test code = Hgb) 14.2 12.0-16.0 [facility] HospitalSjdrrldPEPCQMRLYR3212-83-85 06:57:00 Test Item Value Reference Range Interpretation Comments RBC (test code = RBC) 4.54 4.20-5.40 [facility] HospitalJmolfhzDWBJBXFWRY3920-61-19 06:57:00 Test Item Value Reference Range Interpretation Comments WBC (test code = WBC) 9.4 3.7-10.4 [facility] HospitalSbjqohkDFMAMSSDQC5055-20-01 06:57:00 Test Item Value Reference Range Interpretation Comments MCV (test code = MCV) 88.6 80.0-98.0 [facility] HospitalVkibtmgVQLMMJKWAD3409-20-71 06:57:00 Test Item Value Reference Range Interpretation Comments MCH (test code = MCH) 31.3 pg 27.0-31.0 [facility] HospitalQhjlywrCNDCBOZFBD1288-04-17 06:57:00 Test Item Value Reference Range Interpretation Comments MPV (test code = MPV) 7.4 7.4-10.4 [facility] HospitalWvhdzekCWBGDSVBWX0430-30-51 06:57:00 Test Item Value Reference Range Interpretation Comments Platelet (test code = Platelet) 295 133-450 [facility] HospitalNpzladvJCDPGYMCXQ9231-60-68 06:57:00 Test Item Value Reference Range Interpretation Comments RDW (test code = RDW) 13.7 11.5-14.5 [facility] HospitalZsqsjaaQYEMZPRGGW4263-57-72 06:57:00 Test Item Value Reference Range Interpretation Comments MCHC (test code = MCHC) 35.3 32.0-36.0 [facility] AND [id number] 13:57:55 Test Item Value Reference Range Interpretation Comments UA Spec Grav (test code = UA Spec 1.015 1 Grav) [facility] AND [id number] 13:57:55 Test Item Value Reference Range Interpretation Comments UA pH (test code = UA pH) 6.0 1 5.0-8.0 [facility] AND [id number] 13:57:55 Test Item Value Reference Range Interpretation Comments UA Turbidity (test code = Clear (03/18/14 8:57 UA Turbidity) AM) [facility] AND [id number] 13:57:55 Test Item Value Reference Range Interpretation Comments UA Urobilinogen (test code = UA 0.2 0.1-1.0 Urobilinogen) [facility] AND [id number] 13:57:55 Test Item Value Reference Range Interpretation Comments UA Leuk Est (test Negative (03/18/14 8:57 code = UA Leuk Est) AM) [facility] AND [id number] 13:57:55 Test Item Value Reference Range Interpretation Comments UA Nitrite (test code Negative (03/18/14 8:57 = UA Nitrite) AM) [facility] AND [id number] 13:57:55 Test Item Value Reference Range Interpretation Comments UA Color (test code = Yellow *NA*(03/18/14 UA Color) 8:57 AM) [facility] AND [id number] 13:57:55 Test Item Value Reference Range Interpretation Comments UA Bili (test code = Negative *NA*(03/18/14 UA Bili) 8:57 AM) [facility] AND [id number] 13:57:55 Test Item Value Reference Range Interpretation Comments UA Ketones (test code = Trace *ABN*(03/18/14 UA Ketones) 8:57 AM) [facility] AND [id number] 13:57:55 Test Item Value Reference Range Interpretation Comments UA Blood (test code = Trace *ABN*(03/18/14 UA Blood) 8:57 AM) [facility] AND [id number] 13:57:55 Test Item Value Reference Range Interpretation Comments UA Glucose (test code Negative (03/18/14 8:57 = UA Glucose) AM) [facility] AND [id number] 13:57:55 Test Item Value Reference Range Interpretation Comments UA Protein (test code Negative (03/18/14 8:57 = UA Protein) AM) [facility] AND [id number] 13:57:55 Test Item Value Reference Range Interpretation Comments UA Sq Epi (test code = UA Sq Epi) Few /LPF [facility] AND [id number] 13:57:55 Test Item Value Reference Range Interpretation Comments UA RBC (test code = 0-2 /HPF See_Comment [Automa blayne message] The UA RBC) system which ge nerated this result tra nsmitted reference range : <=2. The reference range was not used to interpr et this result as dequan l/abnormal. [facility] AND [id number] 13:57:55 Test Item Value Reference Range Interpretation Comments UA WBC (test code = UA WBC) 0-2 /HPF [facility] [id number] 13:57:55 Test Item Value Reference Range Interpretation Comments UA Mucus (test code = None Seen (03/18/14 UA Mucus) 8:57 AM) [facility] AND [id number] 13:57:55 Test Item Value Reference Range Interpretation Comments UA Bacteria (test code = UA Moderate /HPF Bacteria) [facility] [id number] 13:57:55 Test Item Value Reference Range Interpretation Comments UA Spec Grav (test code = UA Spec 1.015 1 Grav) [facility] AND [id number] 13:57:55 Test Item Value Reference Range Interpretation Comments UA pH (test code = UA pH) 6.0 1 5.0-8.0 [facility] AND [id number] 13:57:55 Test Item Value Reference Range Interpretation Comments UA Turbidity (test code = Clear (03/18/14 8:57 UA Turbidity) AM) [facility] AND [id number] 13:57:55 Test Item Value Reference Range Interpretation Comments UA Urobilinogen (test code = UA 0.2 0.1-1.0 Urobilinogen) [facility] AND [id number] 13:57:55 Test Item Value Reference Range Interpretation Comments UA Leuk Est (test Negative (03/18/14 8:57 code = UA Leuk Est) AM) [facility] AND [id number] 13:57:55 Test Item Value Reference Range Interpretation Comments UA Nitrite (test code Negative (03/18/14 8:57 = UA Nitrite) AM) [facility] AND [id number] 13:57:55 Test Item Value Reference Range Interpretation Comments UA Color (test code = Yellow *NA*(03/18/14 UA Color) 8:57 AM) [facility] AND [id number] 13:57:55 Test Item Value Reference Range Interpretation Comments UA Bili (test code = Negative *NA*(03/18/14 UA Bili) 8:57 AM) [facility] AND [id number] 13:57:55 Test Item Value Reference Range Interpretation Comments UA Ketones (test code = Trace *ABN*(03/18/14 UA Ketones) 8:57 AM) [facility] AND [id number] 13:57:55 Test Item Value Reference Range Interpretation Comments UA Blood (test code = Trace *ABN*(03/18/14 UA Blood) 8:57 AM) [facility] AND [id number] 13:57:55 Test Item Value Reference Range Interpretation Comments UA Glucose (test code Negative (03/18/14 8:57 = UA Glucose) AM) [facility] AND [id number] 13:57:55 Test Item Value Reference Range Interpretation Comments UA Protein (test code Negative (03/18/14 8:57 = UA Protein) AM) [facility] AND [id number] 13:57:55 Test Item Value Reference Range Interpretation Comments UA Sq Epi (test code = UA Sq Epi) Few /LPF [facility] AND [id number] 13:57:55 Test Item Value Reference Range Interpretation Comments UA RBC (test code = 0-2 /HPF See_Comment [Automa blayne message] The UA RBC) system which ge nerated this result tra nsmitted reference range : <=2. The reference range was not used to interpr et this result as dequan l/abnormal. [facility] AND [id number] 13:57:55 Test Item Value Reference Range Interpretation Comments UA WBC (test code = UA WBC) 0-2 /HPF [facility] AND [id number] 13:57:55 Test Item Value Reference Range Interpretation Comments UA Mucus (test code = None Seen (03/18/14 UA Mucus) 8:57 AM) [facility] AND [id number] 13:57:55 Test Item Value Reference Range Interpretation Comments UA Bacteria (test code = UA Moderate /HPF Bacteria) [id number] 11:20:00 Test Item Value Reference Range Interpretation Comments CHD Risk (test code = CHD Risk) 4.39 3.90-5.80 [facility] [id number] 11:20:00 Test Item Value Reference Range Interpretation Comments LDL (Calculated) (test code = LDL 120 (Calculated)) [facility] CenterIxwwkcpCFPMCC2004-76-90 11:20:00 Test Item Value Reference Range Interpretation Comments Trig (test code = Trig) 145 [facility] CenterQmfiapzGVJPDL6116-72-25 11:20:00 Test Item Value Reference Range Interpretation Comments Chol (test code = Chol) 193 [facility] CenterKmdfyvuDOZUUC4384-17-07 11:20:00 Test Item Value Reference Range Interpretation Comments HDL (test code = HDL) 44 [facility] CenterFaemjxeJMVZXN5983-58-51 11:20:00 Test Item Value Reference Range Interpretation Comments VLDL (test code = VLDL) 29 [facility] [id number] 11:20:00 Test Item Value Reference Range Interpretation Comments Hgb A1C (test code = Hgb A1C) 4.9 [facility] CenterDzpgijsZCDZLN3086-33-88 11:20:00 Test Item Value Reference Range Interpretation Comments CHD Risk (test code = CHD Risk) 4.39 3.90-5.80 [facility] CenterKnqcxahBMIVBR0953-96-37 11:20:00 Test Item Value Reference Range Interpretation Comments LDL (Calculated) (test code = LDL 120 (Calculated)) [facility] CenterGxrguuhHDYEGY5065-12-05 11:20:00 Test Item Value Reference Range Interpretation Comments Trig (test code = Trig) 145 [facility] CenterWynjvwfZHRRGI2344-02-39 11:20:00 Test Item Value Reference Range Interpretation Comments Chol (test code = Chol) 193 [facility] CenterQssjqzsQIQBLQ7174-34-87 11:20:00 Test Item Value Reference Range Interpretation Comments HDL (test code = HDL) 44 [facility] CenterPoibukqGYTDZR2322-81-68 11:20:00 Test Item Value Reference Range Interpretation Comments VLDL (test code = VLDL) 29 [facility] [id number] 11:20:00 Test Item Value Reference Range Interpretation Comments Hgb A1C (test code = Hgb A1C) 4.9 [facility] [id number] 02:54:00 Test Item Value Reference Range Interpretation Comments eGFR (test code = eGFR) 87 [facility] CJSDP2028-05-50 02:54:00 Test Item Value Reference Range Interpretation Comments POC Creatinine (test code = POC 0.8 0.5-1.4 Creatinine) [facility] [id number] 02:54:00 Test Item Value Reference Range Interpretation Comments eGFR (test code = eGFR) 87 [facility]2014-06-26 02:54:00 Test Item Value Reference Range Interpretation Comments POC Creatinine (test code = POC 0.8 0.5-1.4 Creatinine) [facility]2014-06-26 02:35:26 Test Item Value Reference Range Interpretation Comments eGFR (test code = eGFR) 87 [facility]2014-06-26 02:35:26 Test Item Value Reference Range Interpretation Comments Calcium Lvl (test code = Calcium Lvl) 10.0 8.5-10.5 [facility]2014-06-26 02:35:26 Test Item Value Reference Range Interpretation Comments Sodium Lvl (test code = Sodium Lvl) 140 135-145 [facility]2014-06-26 02:35:26 Test Item Value Reference Range Interpretation Comments Creatinine Lvl (test code = Creatinine 0.8 0.5-1.4 Lvl) [facility]2014-06-26 02:35:26 Test Item Value Reference Range Interpretation Comments Chloride Lvl (test code = Chloride Lvl) 103 95-109 [facility]2014-06-26 02:35:26 Test Item Value Reference Range Interpretation Comments Potassium Lvl (test code = Potassium 4.0 3.5-5.1 Lvl) [facility]2014-06-26 02:35:26 Test Item Value Reference Range Interpretation Comments CO2 (test code = CO2) 30 24-32 [facility]2014-06-26 02:35:26 Test Item Value Reference Range Interpretation Comments BUN (test code = BUN) 13 7-22 [facility]2014-06-26 02:35:26 Test Item Value Reference Range Interpretation Comments Glucose Lvl (test code = Glucose Lvl) 106 70-99 [facility]2014-06-26 02:35:26 Test Item Value Reference Range Interpretation Comments AGAP (test code = AGAP) 11.0 10.0-20.0 [id number] 02:35:26 Test Item Value Reference Range Interpretation Comments Basophils (test code = 1.4 See_Comment [Aut omated message] The Basophils) system which ge nerated this result tra nsmitted reference range : <=1.0. The reference r celio was not used to int erpret this result as normal/abnormal . [facility] Ho[id number] 02:35:26 Test Item Value Reference Range Interpretation Comments Segs-Bands # (test code = Segs-Bands #) 5.3 1.5-8.1 [facility] Hospit[id number] 02:35:26 Test Item Value Reference Range Interpretation Comments Segs (test code = Segs) 54.6 45.0-75.0 [facility] HospitalKsvfmqfGHECJVLUVW1693-45-25 02:35:26 Test Item Value Reference Range Interpretation Comments Eosinophils # (test code 0.2 See_Comment [A utomated message] The = Eosinophils #) system whic h generated this result tra nsmitted reference range : <=0.5. The reference r celio was not used to int erpret this result as normal/abnormal . [facility] HospitalZbtbemiBCGWBJFQSF6929-57-74 02:35:26 Test Item Value Reference Range Interpretation Comments Basophils # (test code 0.1 See_Comment [Aut omated message] The = Basophils #) system which generated this result tra nsmitted reference range : <=0.2. The reference r celio was not used to int erpret this result as normal/abnormal . [facility] HospitalFofsprlOJJUXIEFWK7018-69-21 02:35:26 Test Item Value Reference Range Interpretation Comments Lymphocytes # (test code = Lymphocytes 3.7 1.0-5.5 #) [facility] Hospit[id number] 02:35:26 Test Item Value Reference Range Interpretation Comments Monocytes # (test code 0.4 See_Comment [Aut omated message] The = Monocytes #) system which generated this result tra nsmitted reference range : <=0.8. The reference r celio was not used to int erpret this result as normal/abnormal . [facility] HospitalWpouewkJZULSWJFKM0795-29-16 02:35:26 Test Item Value Reference Range Interpretation Comments Monocytes (test code = Monocytes) 3.9 2.0-12.0 [facility] Hos[id number] 02:35:26 Test Item Value Reference Range Interpretation Comments Eosinophils (test code = 2.3 See_Comment [A utomated message] The Eosinophils) system which ge nerated this result tra nsmitted reference range : <=4.0. The reference r celio was not used to int erpret this result as normal/abnormal . [facility] HospitalUrjgcjlRPLFZQGXNM7411-06-06 02:35:26 Test Item Value Reference Range Interpretation Comments Lymphocytes (test code = Lymphocytes) 37.8 20.0-40.0 [facility] Hospit[id number] 02:35:26 Test Item Value Reference Range Interpretation Comments RBC (test code = RBC) 4.83 4.20-5.40 [facility] HospitalWiaohjyYGDNPUXRTB0301-64-81 02:35:26 Test Item Value Reference Range Interpretation Comments MPV (test code = MPV) 8.1 7.4-10.4 [facility] HospitalTocwxfeSIXZSKTTEH6486-63-83 02:35:26 Test Item Value Reference Range Interpretation Comments Hgb (test code = Hgb) 14.7 12.0-16.0 [facility] HospitalEfczpzzWOBKULIHOR8062-85-57 02:35:26 Test Item Value Reference Range Interpretation Comments MCV (test code = MCV) 89.2 81.0-99.0 [facility] HospitalHmolrokTPNQZRITYL7910-66-65 02:35:26 Test Item Value Reference Range Interpretation Comments Hct (test code = Hct) 43.1 36.0-48.0 [facility] HospitalZgtlabvZXSCNOKKNY5398-00-07 02:35:26 Test Item Value Reference Range Interpretation Comments MCH (test code = MCH) 30.4 pg 27.0-31.0 [facility] HospitalDpdxvboWTVZNWBCXP0998-78-06 02:35:26 Test Item Value Reference Range Interpretation Comments WBC (test code = WBC) 9.7 3.7-10.4 [facility] HospitalRbsneaxKBGGCWFXNC8763-12-44 02:35:26 Test Item Value Reference Range Interpretation Comments RDW (test code = RDW) 12.8 11.5-14.5 [facility] HospitalMnrtgulWFDWVLRJSU5304-85-94 02:35:26 Test Item Value Reference Range Interpretation Comments Platelet (test code = Platelet) 372 133-450 [facility] HospitalIxntrqrCQAVTUVSJM3619-96-76 02:35:26 Test Item Value Reference Range Interpretation Comments MCHC (test code = MCHC) 34.0 32.0-36.0 [facility] Hospit[id number] 02:35:26 Test Item Value Reference Range Interpretation Comments PT (test code = PT) 12.2 s 12.0-14.7 [facility] HospitalSfttsyqMRILXWGTOJ2199-92-11 02:35:26 Test Item Value Reference Range Interpretation Comments INR (test code = INR) 0.91 0.85-1.17 [facility] HospitalHhxbwlzIFTKWFAXHG0398-26-30 02:35:26 Test Item Value Reference Range Interpretation Comments PTT (test code = PTT) 30.2 s 22.9-35.8 [facility]2014-06-26 02:35:26 Test Item Value Reference Range Interpretation Comments eGFR (test code = eGFR) 87 [facility]2014-06-26 02:35:26 Test Item Value Reference Range Interpretation Comments Calcium Lvl (test code = Calcium Lvl) 10.0 8.5-10.5 [facility]2014-06-26 02:35:26 Test Item Value Reference Range Interpretation Comments Sodium Lvl (test code = Sodium Lvl) 140 135-145 [facility]2014-06-26 02:35:26 Test Item Value Reference Range Interpretation Comments Creatinine Lvl (test code = Creatinine 0.8 0.5-1.4 Lvl) [facility]2014-06-26 02:35:26 Test Item Value Reference Range Interpretation Comments Chloride Lvl (test code = Chloride Lvl) 103 95-109 [facility]2014-06-26 02:35:26 Test Item Value Reference Range Interpretation Comments Potassium Lvl (test code = Potassium 4.0 3.5-5.1 Lvl) [facility]2014-06-26 02:35:26 Test Item Value Reference Range Interpretation Comments CO2 (test code = CO2) 30 24-32 [facility]2014-06-26 02:35:26 Test Item Value Reference Range Interpretation Comments BUN (test code = BUN) 13 7-22 [facility]2014-06-26 02:35:26 Test Item Value Reference Range Interpretation Comments Glucose Lvl (test code = Glucose Lvl) 106 70-99 [facility]2014-06-26 02:35:26 Test Item Value Reference Range Interpretation Comments AGAP (test code = AGAP) 11.0 10.0-20.0 [facility] H[id number] 02:35:26 Test Item Value Reference Range Interpretation Comments Basophils (test code = 1.4 See_Comment [Aut omated message] The Basophils) system which ge nerated this result tra nsmitted reference range : <=1.0. The reference r celio was not used to int erpret this result as normal/abnormal . [facility] HospitalNvuxpmwDESXJABIDK1421-44-68 02:35:26 Test Item Value Reference Range Interpretation Comments Segs-Bands # (test code = Segs-Bands #) 5.3 1.5-8.1 [facility] HospitalJvotbquTXCNSTEICK0311-68-98 02:35:26 Test Item Value Reference Range Interpretation Comments Segs (test code = Segs) 54.6 45.0-75.0 [facility] HospitalIitvnkxHQGODIBYMO8724-19-96 02:35:26 Test Item Value Reference Range Interpretation Comments Eosinophils # (test code 0.2 See_Comment [A utomated message] The = Eosinophils #) system whic h generated this result tra nsmitted reference range : <=0.5. The reference r celio was not used to int erpret this result as normal/abnormal . [facility] HospitalCeeuqmvLKLETULEVD0283-08-02 02:35:26 Test Item Value Reference Range Interpretation Comments Basophils # (test code 0.1 See_Comment [Aut omated message] The = Basophils #) system which generated this result tra nsmitted reference range : <=0.2. The reference r celio was not used to int erpret this result as normal/abnormal . [facility] HospitalXyityfrEARRUHXJOC5274-83-89 02:35:26 Test Item Value Reference Range Interpretation Comments Lymphocytes # (test code = Lymphocytes 3.7 1.0-5.5 #) [facility] HospitalDmqocqaWUCBTQAESS7565-72-98 02:35:26 Test Item Value Reference Range Interpretation Comments Monocytes # (test code 0.4 See_Comment [Aut omated message] The = Monocytes #) system which generated this result tra nsmitted reference range : <=0.8. The reference r celio was not used to int erpret this result as normal/abnormal . [facility] HospitalIlywnfvFJVQYXAKEW7371-62-30 02:35:26 Test Item Value Reference Range Interpretation Comments Monocytes (test code = Monocytes) 3.9 2.0-12.0 [facility] HospitalVahqcarMVDELDCYTK6417-74-61 02:35:26 Test Item Value Reference Range Interpretation Comments Eosinophils (test code = 2.3 See_Comment [A utomated message] The Eosinophils) system which ge nerated this result tra nsmitted reference range : <=4.0. The reference r celio was not used to int erpret this result as normal/abnormal . [facility] HospitalBvrcxugIUSHYZPIEA2569-46-61 02:35:26 Test Item Value Reference Range Interpretation Comments Lymphocytes (test code = Lymphocytes) 37.8 20.0-40.0 [facility] HospitalMewykiyPKQIRGISAJ7054-07-19 02:35:26 Test Item Value Reference Range Interpretation Comments RBC (test code = RBC) 4.83 4.20-5.40 [facility] HospitalJsaibaoTNEOMNQDVD5746-98-80 02:35:26 Test Item Value Reference Range Interpretation Comments MPV (test code = MPV) 8.1 7.4-10.4 [facility] HospitalInwfkulYAMYXJJZGJ5239-18-53 02:35:26 Test Item Value Reference Range Interpretation Comments Hgb (test code = Hgb) 14.7 12.0-16.0 [facility] HospitalMbcrwbqQXGWEKPZOK5737-00-07 02:35:26 Test Item Value Reference Range Interpretation Comments MCV (test code = MCV) 89.2 81.0-99.0 [facility] HospitalMqtmasuSGCPJASDLQ3470-19-71 02:35:26 Test Item Value Reference Range Interpretation Comments Hct (test code = Hct) 43.1 36.0-48.0 [facility] HospitalQegivgfUWRUDLBNYJ7646-95-35 02:35:26 Test Item Value Reference Range Interpretation Comments MCH (test code = MCH) 30.4 pg 27.0-31.0 [facility] HospitalHnpxrvhBRUNPWMFLZ1354-25-81 02:35:26 Test Item Value Reference Range Interpretation Comments WBC (test code = WBC) 9.7 3.7-10.4 [facility] HospitalWhnhkkeSJAEXRMODF3429-73-17 02:35:26 Test Item Value Reference Range Interpretation Comments RDW (test code = RDW) 12.8 11.5-14.5 [facility] HospitalOsgsirsRENWSPTHRH3149-73-76 02:35:26 Test Item Value Reference Range Interpretation Comments Platelet (test code = Platelet) 372 133-450 [facility] HospitalKikdybzYZHJEBEACS2301-57-44 02:35:26 Test Item Value Reference Range Interpretation Comments MCHC (test code = MCHC) 34.0 32.0-36.0 [facility] HospitalGccpcwiONYCACOZFA8445-28-82 02:35:26 Test Item Value Reference Range Interpretation Comments PT (test code = PT) 12.2 s 12.0-14.7 [facility] HospitalYsvyxtqNAGMQLVCQR5407-68-95 02:35:26 Test Item Value Reference Range Interpretation Comments INR (test code = INR) 0.91 0.85-1.17 [facility] HospitalRpjxywlDWXWUQVBWB8439-48-22 02:35:26 Test Item Value Reference Range Interpretation Comments PTT (test code = PTT) 30.2 s 22.9-35.8 [facility] AND [id number] 19:39:00 Test Item Value Reference Range Interpretation Comments UA Urobilinogen (test code = UA <=1.0 mg/dL 0.1-1.0 Urobilinogen) [facility] AND [id number] 19:39:00 Test Item Value Reference Range Interpretation Comments UA Mucus (test code = UA Mucus) Few /LPF [facility] AND [id number] 19:39:00 Test Item Value Reference Range Interpretation Comments UA Bacteria (test code = UA Occasional /HPF Bacteria) [facility] AND [id number] 19:39:00 Test Item Value Reference Range Interpretation Comments UA Sq Epi (test code = UA Sq Epi) Few /LPF [facility] AND [id number] 19:39:00 Test Item Value Reference Range Interpretation Comments UA WBC (test code = 2 See_Comment [Automa blayne message] The UA WBC) system which ge nerated this result transmit blayne reference range : <=5. The reference range was not used to interpr et this result as dequan l/abnormal. [facility] AND [id number] 19:39:00 Test Item Value Reference Range Interpretation Comments UA Blood (test code = Negative (12/31/13 2:39 UA Blood) PM) [facility] AND [id number] 19:39:00 Test Item Value Reference Range Interpretation Comments UA Nitrite (test code Negative (12/31/13 2:39 = UA Nitrite) PM) [facility] AND [id number] 19:39:00 Test Item Value Reference Range Interpretation Comments UA Leuk Est (test code Small *ABN*(12/31/13 = UA Leuk Est) 2:39 PM) [facility] AND [id number] 19:39:00 Test Item Value Reference Range Interpretation Comments UA Glucose (test code = UA Negative mg/dL Glucose) [facility] AND [id number] 19:39:00 Test Item Value Reference Range Interpretation Comments UA Ketones (test code = UA Negative mg/dL Ketones) [facility] AND [id number] 19:39:00 Test Item Value Reference Range Interpretation Comments UA Bili (test code = Negative *NA*(12/31/13 UA Bili) 2:39 PM) [facility] AND [id number] 19:39:00 Test Item Value Reference Range Interpretation Comments UA Spec Grav (test code = UA Spec Grav) 1.017 [facility] AND [id number] 19:39:00 Test Item Value Reference Range Interpretation Comments UA Protein (test code = UA Protein) 20 mg/dL [facility] AND [id number] 19:39:00 Test Item Value Reference Range Interpretation Comments UA pH (test code = UA pH) 6.0 5.0-8.0 [facility] AND [id number] 19:39:00 Test Item Value Reference Range Interpretation Comments UA Turbidity (test code = Clear (12/31/13 2:39 UA Turbidity) PM) [facility] AND [id number] 19:39:00 Test Item Value Reference Range Interpretation Comments UA Color (test code = Yellow *NA*(12/31/13 UA Color) 2:39 PM) [facility] AND [id number] 19:39:00 Test Item Value Reference Range Interpretation Comments UA Urobilinogen (test code = UA <=1.0 mg/dL 0.1-1.0 Urobilinogen) [facility] AND [id number] 19:39:00 Test Item Value Reference Range Interpretation Comments UA Mucus (test code = UA Mucus) Few /LPF [facility] AND [id number] 19:39:00 Test Item Value Reference Range Interpretation Comments UA Bacteria (test code = UA Occasional /HPF Bacteria) [facility] AND [id number] 19:39:00 Test Item Value Reference Range Interpretation Comments UA Sq Epi (test code = UA Sq Epi) Few /LPF [facility] AND [id number] 19:39:00 Test Item Value Reference Range Interpretation Comments UA WBC (test code = 2 See_Comment [Automa blayne message] The UA WBC) system which ge nerated this result transmit blayne reference range : <=5. The reference range was not used to interpr et this result as dequan l/abnormal. [facility] AND [id number] 19:39:00 Test Item Value Reference Range Interpretation Comments UA Blood (test code = Negative (12/31/13 2:39 UA Blood) PM) [facility] AND [id number] 19:39:00 Test Item Value Reference Range Interpretation Comments UA Nitrite (test code Negative (12/31/13 2:39 = UA Nitrite) PM) [facility] AND [id number] 19:39:00 Test Item Value Reference Range Interpretation Comments UA Leuk Est (test code Small *ABN*(12/31/13 = UA Leuk Est) 2:39 PM) [facility] AND [id number] 19:39:00 Test Item Value Reference Range Interpretation Comments UA Glucose (test code = UA Negative mg/dL Glucose) [facility] AND [id number] 19:39:00 Test Item Value Reference Range Interpretation Comments UA Ketones (test code = UA Negative mg/dL Ketones) [facility] AND [id number] 19:39:00 Test Item Value Reference Range Interpretation Comments UA Bili (test code = Negative *NA*(12/31/13 UA Bili) 2:39 PM) [facility] AND [id number] 19:39:00 Test Item Value Reference Range Interpretation Comments UA Spec Grav (test code = UA Spec Grav) 1.017 [facility] AND [id number] 19:39:00 Test Item Value Reference Range Interpretation Comments UA Protein (test code = UA Protein) 20 mg/dL [facility] AND [id number] 19:39:00 Test Item Value Reference Range Interpretation Comments UA pH (test code = UA pH) 6.0 5.0-8.0 [facility] AND [id number] 19:39:00 Test Item Value Reference Range Interpretation Comments UA Turbidity (test code = Clear (12/31/13 2:39 UA Turbidity) PM) [facility] AND [id number] 19:39:00 Test Item Value Reference Range Interpretation Comments UA Color (test code = Yellow *NA*(12/31/13 UA Color) 2:39 PM) [facility]2014-04-09 11:00:00 Test Item Value Reference Range Interpretation Comments Bili Indirect (test 0.2 See_Comment [Automa blayne message] The code = Bili Indirect) system which generated this result tra nsmitted reference range : <=1.0. The reference r celio was not used to int erpret this result as normal/abnormal . [facility]2014-04-09 11:00:00 Test Item Value Reference Range Interpretation Comments Bili Total (test code = Bili Total) 0.3 0.2-1.3 [facility]2014-04-09 11:00:00 Test Item Value Reference Range Interpretation Comments Bili Direct (test code 0.1 See_Comment [Aut omated message] The = Bili Direct) system which generated this result tra nsmitted reference range : <=0.3. The reference r celio was not used to int erpret this result as dequan l/abnormal. [facility]2014-04-09 11:00:00 Test Item Value Reference Range Interpretation Comments A/G Ratio (test code = A/G Ratio) 1.0 0.7-1.6 [facility]2014-04-09 11:00:00 Test Item Value Reference Range Interpretation Comments AST (test code = AST) 38 See_Comment [Auto mated message] The system which ge nerated this result transmit blayne reference range : <=37. The reference range was not used to interpr et this result as dequan l/abnormal. [facility]2014-04-09 11:00:00 Test Item Value Reference Range Interpretation Comments Globulin (test code = Globulin) 3.3 2.0-4.0 [facility]2014-04-09 11:00:00 Test Item Value Reference Range Interpretation Comments Total Protein (test code = Total 6.7 6.4-8.4 Protein) [facility]2014-04-09 11:00:00 Test Item Value Reference Range Interpretation Comments ALT (test code = ALT) 104 See_Comment [Auto mated message] The system which ge nerated this result transmit blayne reference range : <=65. The reference range was not used to interpr et this result as dequan l/abnormal. [facility] [id number] 11:00:00 Test Item Value Reference Range Interpretation Comments Alk Phos (test code = Alk Phos) 62 39-136 [facility] [id number] 11:00:00 Test Item Value Reference Range Interpretation Comments Albumin Lvl (test code = Albumin Lvl) 3.4 3.5-5.0 [facility]XpeqrcrPGNUISLNCAFV5102-92-14 11:00:00 Test Item Value Reference Range Interpretation Comments AGAP (test code = AGAP) 15.3 10.0-20.0 [facility] HospitalIofwhphNYFLTVTCTSPV8860-19-15 11:00:00 Test Item Value Reference Range Interpretation Comments eGFR (test code = eGFR) 104 [facility] HospitalEnjcwlsYPAKSTSFLTRU4280-15-36 11:00:00 Test Item Value Reference Range Interpretation Comments Chloride Lvl (test code = Chloride Lvl) 106 95-109 [facility] HospitalJsolydsIKNKXHRKRQJM5511-50-60 11:00:00 Test Item Value Reference Range Interpretation Comments CO2 (test code = CO2) 26 24-32 [facility] HospitalEsvhmyzZOZRAITXKDJJ2371 11:00:00 Test Item Value Reference Range Interpretation Comments Potassium Lvl (test code = Potassium 4.3 3.5-5.1 Lvl) [facility] HospitalInzdyurYJNLBBEEWCWU6355-65-02 11:00:00 Test Item Value Reference Range Interpretation Comments Calcium Lvl (test code = Calcium Lvl) 8.9 8.5-10.5 [facility] HospitalCeduhrpYGDDANDNDMUT0182-51-75 11:00:00 Test Item Value Reference Range Interpretation Comments Glucose Lvl (test code = Glucose Lvl) 97 70-99 [facility] HospitalBfnvtdqLFOSOQNXMBTQ2273-48-51 11:00:00 Test Item Value Reference Range Interpretation Comments BUN (test code = BUN) 14 7-22 [facility] HospitalRfkcselXWGISMYNZTYR1677-28-57 11:00:00 Test Item Value Reference Range Interpretation Comments Creatinine Lvl (test code = Creatinine 0.7 0.5-1.4 Lvl) [facility] HospitalUmvribpIDFJHONXJHJP6606-32-25 11:00:00 Test Item Value Reference Range Interpretation Comments Sodium Lvl (test code = Sodium Lvl) 143 135-145 [facility]CkzlwmiAOQEYNCVBE3797-00-01 11:00:00 Test Item Value Reference Range Interpretation Comments MPV (test code = MPV) 8.5 7.4-10.4 [facility] HospitalTldilgiLEEXIKHSUY6498-95-95 11:00:00 Test Item Value Reference Range Interpretation Comments Platelet (test code = Platelet) 308 133-450 [facility] HospitalUzkbfehDELIZROZOO3566-41-02 11:00:00 Test Item Value Reference Range Interpretation Comments RDW (test code = RDW) 14.7 11.5-14.5 [facility] HospitalPrcnszqDKDIHYSRKD2084-27-72 11:00:00 Test Item Value Reference Range Interpretation Comments Hct (test code = Hct) 37.8 36.0-48.0 [facility] HospitalPraawepGJMFQBDRAL3894-03-67 11:00:00 Test Item Value Reference Range Interpretation Comments Hgb (test code = Hgb) 12.7 12.0-16.0 [facility] HospitalMkisjabKJFUAMYCRO1799-05-09 11:00:00 Test Item Value Reference Range Interpretation Comments WBC (test code = WBC) 8.3 3.7-10.4 [facility] HospitalZopfspaVYAYEBOVFN6755-29-18 11:00:00 Test Item Value Reference Range Interpretation Comments RBC (test code = RBC) 4.21 4.20-5.40 [facility] HospitalBmbwdxnAQEIBKPOSD9534-39-44 11:00:00 Test Item Value Reference Range Interpretation Comments MCHC (test code = MCHC) 33.6 32.0-36.0 [facility] HospitalRktdohrECGFOCXCTP4513-80-58 11:00:00 Test Item Value Reference Range Interpretation Comments MCH (test code = MCH) 30.1 pg 27.0-31.0 [facility] HospitalCivfinvVRYLCVVPOK2178-21-70 11:00:00 Test Item Value Reference Range Interpretation Comments MCV (test code = MCV) 89.6 81.0-99.0 [facility] HospitalOjyqrleMKYAZXABAS8868-14-32 11:00:00 Test Item Value Reference Range Interpretation Comments Segs (test code = Segs) 58.8 45.0-75.0 [facility] HospitalLxtllgxFPSXENNDCW3123-12-43 11:00:00 Test Item Value Reference Range Interpretation Comments Monocytes # (test code 0.6 See_Comment [Aut omated message] The = Monocytes #) system which generated this result tra nsmitted reference range : <=0.8. The reference r celio was not used to int erpret this result as normal/abnormal . [facility] HospitalJhhmbybJVSNVXUGOX6263-11-84 11:00:00 Test Item Value Reference Range Interpretation Comments Eosinophils # (test code 0.3 See_Comment [A utomated message] The = Eosinophils #) system whic h generated this result tra nsmitted reference range : <=0.5. The reference r celio was not used to int erpret this result as normal/abnormal . [facility] HospitalAutxzuqFZXSJOJEIM7233-73-96 11:00:00 Test Item Value Reference Range Interpretation Comments Basophils (test code = 0.6 See_Comment [Aut omated message] The Basophils) system which ge nerated this result tra nsmitted reference range : <=1.0. The reference r celio was not used to int erpret this result as normal/abnormal . [facility] HospitalVpmmiwtOCGFNWQZKD5583-61-78 11:00:00 Test Item Value Reference Range Interpretation Comments Segs-Bands # (test code = Segs-Bands #) 4.9 1.5-8.1 [facility] HospitalNovvzjqIKRDHHHMLB5194-39-39 11:00:00 Test Item Value Reference Range Interpretation Comments Lymphocytes # (test code = Lymphocytes 2.4 1.0-5.5 #) [facility] HospitalDdbapdsRMXPZMSGKS4820-76-52 11:00:00 Test Item Value Reference Range Interpretation Comments Eosinophils (test code = 4.1 See_Comment [A utomated message] The Eosinophils) system which ge nerated this result tra nsmitted reference range : <=4.0. The reference r celio was not used to int erpret this result as normal/abnormal . [facility] HospitalSwuaqoaSHMAJVWZSR9927-29-33 11:00:00 Test Item Value Reference Range Interpretation Comments Lymphocytes (test code = Lymphocytes) 29.4 20.0-40.0 [facility] HospitalSnoeptrYWSFKXAAAS5225-85-26 11:00:00 Test Item Value Reference Range Interpretation Comments Monocytes (test code = Monocytes) 7.1 2.0-12.0 [facility]2014-04-09 11:00:00 Test Item Value Reference Range Interpretation Comments Bili Indirect (test 0.2 See_Comment [Automa blayne message] The code = Bili Indirect) system which generated this result tra nsmitted reference range : <=1.0. The reference r celio was not used to int erpret this result as normal/abnormal . [facility]2014-04-09 11:00:00 Test Item Value Reference Range Interpretation Comments Bili Total (test code = Bili Total) 0.3 0.2-1.3 [facility]2014-04-09 11:00:00 Test Item Value Reference Range Interpretation Comments Bili Direct (test code 0.1 See_Comment [Aut omated message] The = Bili Direct) system which generated this result tra nsmitted reference range : <=0.3. The reference r celio was not used to int erpret this result as dequan l/abnormal. [facility]2014-04-09 11:00:00 Test Item Value Reference Range Interpretation Comments A/G Ratio (test code = A/G Ratio) 1.0 0.7-1.6 [facility]2014-04-09 11:00:00 Test Item Value Reference Range Interpretation Comments AST (test code = AST) 38 See_Comment [Auto mated message] The system which ge nerated this result transmit blayne reference range : <=37. The reference range was not used to interpr et this result as dequan l/abnormal. [facility]2014-04-09 11:00:00 Test Item Value Reference Range Interpretation Comments Globulin (test code = Globulin) 3.3 2.0-4.0 [facility]2014-04-09 11:00:00 Test Item Value Reference Range Interpretation Comments Total Protein (test code = Total 6.7 6.4-8.4 Protein) [facility]2014-04-09 11:00:00 Test Item Value Reference Range Interpretation Comments ALT (test code = ALT) 104 See_Comment [Auto mated message] The system which ge nerated this result transmit blayne reference range : <=65. The reference range was not used to interpr et this result as dequan l/abnormal. [facility]2014-04-09 11:00:00 Test Item Value Reference Range Interpretation Comments Alk Phos (test code = Alk Phos) 62 39-136 [facility] [id number] 11:00:00 Test Item Value Reference Range Interpretation Comments Albumin Lvl (test code = Albumin Lvl) 3.4 3.5-5.0 [facility] HospitalCxogpeoKJHJDLSSUYJN6043-37-81 11:00:00 Test Item Value Reference Range Interpretation Comments AGAP (test code = AGAP) 15.3 10.0-20.0 [facility] HospitalGygnkhgVIHGKEOWCGJE0736-03-33 11:00:00 Test Item Value Reference Range Interpretation Comments eGFR (test code = eGFR) 104 [facility] HospitalTuaebenIFIJYVYPAADU5890-02-92 11:00:00 Test Item Value Reference Range Interpretation Comments Chloride Lvl (test code = Chloride Lvl) 106 95-109 [facility] HospitalNolyhxoQHRNYFFKWCAH8551-54-29 11:00:00 Test Item Value Reference Range Interpretation Comments CO2 (test code = CO2) 26 24-32 [facility] HospitalNuxrbmgIQFAZIFXMSZU4084-75-62 11:00:00 Test Item Value Reference Range Interpretation Comments Potassium Lvl (test code = Potassium 4.3 3.5-5.1 Lvl) [facility] HospitalLlxjwqmXNHXKVQPCRHD6721-68-76 11:00:00 Test Item Value Reference Range Interpretation Comments Calcium Lvl (test code = Calcium Lvl) 8.9 8.5-10.5 [facility] HospitalUpblybhSKKTWNLKRUYW7090-71-50 11:00:00 Test Item Value Reference Range Interpretation Comments Glucose Lvl (test code = Glucose Lvl) 97 70-99 [facility] HospitalJaghiqxWCZUDYYAXUPS8020-40-65 11:00:00 Test Item Value Reference Range Interpretation Comments BUN (test code = BUN) 14 7-22 [facility] HospitalTaojhauGJREKZRCYIBB6861-06-26 11:00:00 Test Item Value Reference Range Interpretation Comments Creatinine Lvl (test code = Creatinine 0.7 0.5-1.4 Lvl) [facility] HospitalAcitfqrBKCIFGAAIVOT6269-37-15 11:00:00 Test Item Value Reference Range Interpretation Comments Sodium Lvl (test code = Sodium Lvl) 143 135-145 [facility] HospitalRgpggtwHFYNNEQUXL0829-66-12 11:00:00 Test Item Value Reference Range Interpretation Comments MPV (test code = MPV) 8.5 7.4-10.4 [facility] HospitalYphwcgwNDPGJBEGSP7518-21-00 11:00:00 Test Item Value Reference Range Interpretation Comments Platelet (test code = Platelet) 308 133-450 [facility] HospitalCdtrrtuONAWZYMXUN6348-63-25 11:00:00 Test Item Value Reference Range Interpretation Comments RDW (test code = RDW) 14.7 11.5-14.5 [facility] HospitalLapgixpGMOPLUXLGO3127-75-55 11:00:00 Test Item Value Reference Range Interpretation Comments Hct (test code = Hct) 37.8 36.0-48.0 [facility] HospitalToqaihnEMIICEPGEJ7081-65-88 11:00:00 Test Item Value Reference Range Interpretation Comments Hgb (test code = Hgb) 12.7 12.0-16.0 [facility] HospitalWxfkqibJGYEWKRNCS8118-55-21 11:00:00 Test Item Value Reference Range Interpretation Comments WBC (test code = WBC) 8.3 3.7-10.4 [facility] HospitalMiqiyshOJOAXPGVHO7983-27-93 11:00:00 Test Item Value Reference Range Interpretation Comments RBC (test code = RBC) 4.21 4.20-5.40 [facility] HospitalJtugorfCMRDTFTLRC1511-01-76 11:00:00 Test Item Value Reference Range Interpretation Comments MCHC (test code = MCHC) 33.6 32.0-36.0 [facility] HospitalKurfgduCHQOEOKWUA3596-02-49 11:00:00 Test Item Value Reference Range Interpretation Comments MCH (test code = MCH) 30.1 pg 27.0-31.0 [facility] HospitalBwjgxlyOLRBDHYUGO8492-65-99 11:00:00 Test Item Value Reference Range Interpretation Comments MCV (test code = MCV) 89.6 81.0-99.0 [facility] HospitalFfeartbVMATOXMHXE4304-18-74 11:00:00 Test Item Value Reference Range Interpretation Comments Segs (test code = Segs) 58.8 45.0-75.0 [facility] HospitalOhvqtczZDTNBWPAON6035-98-51 11:00:00 Test Item Value Reference Range Interpretation Comments Monocytes # (test code 0.6 See_Comment [Aut omated message] The = Monocytes #) system which generated this result tra nsmitted reference range : <=0.8. The reference r celio was not used to int erpret this result as normal/abnormal . [facility] HospitalOaseebnYDRPWZJGQY0042-79-87 11:00:00 Test Item Value Reference Range Interpretation Comments Eosinophils # (test code 0.3 See_Comment [A utomated message] The = Eosinophils #) system whic h generated this result tra nsmitted reference range : <=0.5. The reference r celio was not used to int erpret this result as normal/abnormal . [facility] HospitalQalxjttZAKSQDWEYW0028-06-54 11:00:00 Test Item Value Reference Range Interpretation Comments Basophils (test code = 0.6 See_Comment [Aut omated message] The Basophils) system which ge nerated this result tra nsmitted reference range : <=1.0. The reference r celio was not used to int erpret this result as normal/abnormal . [facility] HospitalOoftgavLBOIQDBHZO1070-40-54 11:00:00 Test Item Value Reference Range Interpretation Comments Segs-Bands # (test code = Segs-Bands #) 4.9 1.5-8.1 [facility] HospitalEdjtmbzAFLFAVHIQB3384-79-03 11:00:00 Test Item Value Reference Range Interpretation Comments Lymphocytes # (test code = Lymphocytes 2.4 1.0-5.5 #) [facility] HospitalJknjfwaOCMNPAWUEU3832-89-64 11:00:00 Test Item Value Reference Range Interpretation Comments Eosinophils (test code = 4.1 See_Comment [A utomated message] The Eosinophils) system which ge nerated this result tra nsmitted reference range : <=4.0. The reference r celio was not used to int erpret this result as normal/abnormal . [facility] HospitalLxjgbksHSIIMJAEJR4705-93-86 11:00:00 Test Item Value Reference Range Interpretation Comments Lymphocytes (test code = Lymphocytes) 29.4 20.0-40.0 [facility] HospitalDjabrkkHEXCJPCSFR6029-91-24 11:00:00 Test Item Value Reference Range Interpretation Comments Monocytes (test code = Monocytes) 7.1 2.0-12.0 [facility]2014-04-06 09:19:00 Test Item Value Reference Range Interpretation Comments eGFR (test code = eGFR) 104 [facility] IGCSX9697-06-19 09:19:00 Test Item Value Reference Range Interpretation Comments Potassium Lvl (test code = Potassium 4.2 3.5-5.1 Lvl) [facility]2014-04-06 09:19:00 Test Item Value Reference Range Interpretation Comments Chloride Lvl (test code = Chloride Lvl) 104 95-109 [facility] [id number] 09:19:00 Test Item Value Reference Range Interpretation Comments AST (test code = AST) 47 See_Comment [Auto mated message] The system which ge nerated this result transmit blayne reference range : <=37. The reference range was not used to interpr et this result as dequan l/abnormal. [facility]2014-04-06 09:19:00 Test Item Value Reference Range Interpretation Comments Total Protein (test code = Total 7.0 6.4-8.4 Protein) [facility]2014-04-06 09:19:00 Test Item Value Reference Range Interpretation Comments Calcium Lvl (test code = Calcium Lvl) 9.6 8.5-10.5 [facility]2014-04-06 09:19:00 Test Item Value Reference Range Interpretation Comments Bili Total (test code = Bili Total) 0.3 0.2-1.3 [facility]2014-04-06 09:19:00 Test Item Value Reference Range Interpretation Comments CO2 (test code = CO2) 27 24-32 [facility]2014-04-06 09:19:00 Test Item Value Reference Range Interpretation Comments Alk Phos (test code = Alk Phos) 64 39-136 [facility]2014-04-06 09:19:00 Test Item Value Reference Range Interpretation Comments Glucose Lvl (test code = Glucose Lvl) 102 70-99 [facility]2014-04-06 09:19:00 Test Item Value Reference Range Interpretation Comments Albumin Lvl (test code = Albumin Lvl) 3.8 3.5-5.0 [facility]2014-04-06 09:19:00 Test Item Value Reference Range Interpretation Comments ALT (test code = ALT) 107 See_Comment [Auto mated message] The system which ge nerated this result transmit blayne reference range : <=65. The reference range was not used to interpr et this result as dequan l/abnormal. [facility]2014-04-06 09:19:00 Test Item Value Reference Range Interpretation Comments Creatinine Lvl (test code = Creatinine 0.7 0.5-1.4 Lvl) [facility]2014-04-06 09:19:00 Test Item Value Reference Range Interpretation Comments BUN (test code = BUN) 15 7-22 [place] [id number] 09:19:00 Test Item Value Reference Range Interpretation Comments Sodium Lvl (test code = Sodium Lvl) 141 135-145 [facility]2014-04-06 09:19:00 Test Item Value Reference Range Interpretation Comments B/C Ratio (test code = B/C Ratio) 21 6-25 [facility]2014-04-06 09:19:00 Test Item Value Reference Range Interpretation Comments Globulin (test code = Globulin) 3.2 2.0-4.0 [facility]2014-04-06 09:19:00 Test Item Value Reference Range Interpretation Comments AGAP (test code = AGAP) 14.2 10.0-20.0 [facility]2014-04-06 09:19:00 Test Item Value Reference Range Interpretation Comments A/G Ratio (test code = A/G Ratio) 1.2 0.7-1.6 [facility] HospitalFjbvmryBBBJXKZPLI7146-44-59 09:19:00 Test Item Value Reference Range Interpretation Comments Lymphocytes # (test code = Lymphocytes 3.5 1.0-5.5 #) [facility] HospitalCreagdyPIZKACBKYX6059-64-36 09:19:00 Test Item Value Reference Range Interpretation Comments Monocytes # (test code 0.7 See_Comment [Aut omated message] The = Monocytes #) system which generated this result tra nsmitted reference range : <=0.8. The reference r celio was not used to int erpret this result as normal/abnormal . [facility] HospitalSxkvdrmXMOPEDISWA7559-25-97 09:19:00 Test Item Value Reference Range Interpretation Comments Segs-Bands # (test code = Segs-Bands #) 3.9 1.5-8.1 [facility] HospitalQagpkkpAHPCWLJVCK5329-09-58 09:19:00 Test Item Value Reference Range Interpretation Comments Basophils (test code = 0.6 See_Comment [Aut omated message] The Basophils) system which ge nerated this result tra nsmitted reference range : <=1.0. The reference r celio was not used to int erpret this result as normal/abnormal . [facility] HospitalUigagafVDVEGGXFTF3489-43-76 09:19:00 Test Item Value Reference Range Interpretation Comments Segs (test code = Segs) 47.2 45.0-75.0 [place] 664714-04-06 09:19:00 Test Item Value Reference Range Interpretation Comments Lymphocytes (test code = Lymphocytes) 41.8 20.0-40.0 [facility] HospitalWjcssiiESKQNQDSLF4177-12-23 09:19:00 Test Item Value Reference Range Interpretation Comments Eosinophils (test code = 2.5 See_Comment [A utomated message] The Eosinophils) system which ge nerated this result tra nsmitted reference range : <=4.0. The reference r celio was not used to int erpret this result as normal/abnormal . [facility] HospitalKxwmscoKPNMNEQQSB1505-57-62 09:19:00 Test Item Value Reference Range Interpretation Comments Monocytes (test code = Monocytes) 7.9 2.0-12.0 [facility] HospitalJqweyryXAQSZYBMUK4509-94-39 09:19:00 Test Item Value Reference Range Interpretation Comments Eosinophils # (test code 0.2 See_Comment [A utomated message] The = Eosinophils #) system whic h generated this result tra nsmitted reference range : <=0.5. The reference r celio was not used to int erpret this result as normal/abnormal . [facility] HospitalHnfgtmrMAROEYGJQK3084-61-34 09:19:00 Test Item Value Reference Range Interpretation Comments Basophils # (test code 0.1 See_Comment [Aut omated message] The = Basophils #) system which generated this result tra nsmitted reference range : <=0.2. The reference r celio was not used to int erpret this result as normal/abnormal . [facility] HospitalPxpgiycIYWNEYVXBP8165-91-86 09:19:00 Test Item Value Reference Range Interpretation Comments MCHC (test code = MCHC) 34.8 32.0-36.0 [facility] HospitalNnximplLLEPGGQQKZ0109-35-65 09:19:00 Test Item Value Reference Range Interpretation Comments RDW (test code = RDW) 14.6 11.5-14.5 [facility] HospitalIeyxlxgBSZWYTQWDV3076-76-52 09:19:00 Test Item Value Reference Range Interpretation Comments Platelet (test code = Platelet) 296 133-450 [facility] HospitalRkykzbhYWXFNZNETP3576-87-89 09:19:00 Test Item Value Reference Range Interpretation Comments MPV (test code = MPV) 8.4 7.4-10.4 [facility] HospitalMtnszhbKHWVNSVZQI2806-32-36 09:19:00 Test Item Value Reference Range Interpretation Comments WBC (test code = WBC) 8.4 3.7-10.4 [facility] HospitalOmthvgjXTKCPYLVHK0597-55-67 09:19:00 Test Item Value Reference Range Interpretation Comments Hct (test code = Hct) 40.0 36.0-48.0 [facility] HospitalEtavsgcBIBVMXFPVS6487-59-39 09:19:00 Test Item Value Reference Range Interpretation Comments Hgb (test code = Hgb) 13.9 12.0-16.0 [facility] HospitalIuawxmoZTGTMPOTGZ9048-88-47 09:19:00 Test Item Value Reference Range Interpretation Comments MCH (test code = MCH) 30.7 pg 27.0-31.0 [facility] HospitalSayghxsMABSKKZNNS8073-13-62 09:19:00 Test Item Value Reference Range Interpretation Comments MCV (test code = MCV) 88.3 81.0-99.0 [place] 664714-04-06 09:19:00 Test Item Value Reference Range Interpretation Comments RBC (test code = RBC) 4.53 4.20-5.40 [facility]2014-04-06 09:19:00 Test Item Value Reference Range Interpretation Comments eGFR (test code = eGFR) 104 [facility]2014-04-06 09:19:00 Test Item Value Reference Range Interpretation Comments Potassium Lvl (test code = Potassium 4.2 3.5-5.1 Lvl) [facility]2014-04-06 09:19:00 Test Item Value Reference Range Interpretation Comments Chloride Lvl (test code = Chloride Lvl) 104 95-109 [facility]2014-04-06 09:19:00 Test Item Value Reference Range Interpretation Comments AST (test code = AST) 47 See_Comment [Auto mated message] The system which ge nerated this result transmit blayne reference range : <=37. The reference range was not used to interpr et this result as dequan l/abnormal. [facility]2014-04-06 09:19:00 Test Item Value Reference Range Interpretation Comments Total Protein (test code = Total 7.0 6.4-8.4 Protein) [facility]2014-04-06 09:19:00 Test Item Value Reference Range Interpretation Comments Calcium Lvl (test code = Calcium Lvl) 9.6 8.5-10.5 [facility]2014-04-06 09:19:00 Test Item Value Reference Range Interpretation Comments Bili Total (test code = Bili Total) 0.3 0.2-1.3 [facility]2014-04-06 09:19:00 Test Item Value Reference Range Interpretation Comments CO2 (test code = CO2) 27 24-32 [facility]2014-04-06 09:19:00 Test Item Value Reference Range Interpretation Comments Alk Phos (test code = Alk Phos) 64 39-136 [facility]2014-04-06 09:19:00 Test Item Value Reference Range Interpretation Comments Glucose Lvl (test code = Glucose Lvl) 102 70-99 [facility]2014-04-06 09:19:00 Test Item Value Reference Range Interpretation Comments Albumin Lvl (test code = Albumin Lvl) 3.8 3.5-5.0 [facility]2014-04-06 09:19:00 Test Item Value Reference Range Interpretation Comments ALT (test code = ALT) 107 See_Comment [Auto mated message] The system which ge nerated this result transmit blayne reference range : <=65. The reference range was not used to interpr et this result as dequan l/abnormal. [facility]2014-04-06 09:19:00 Test Item Value Reference Range Interpretation Comments Creatinine Lvl (test code = Creatinine 0.7 0.5-1.4 Lvl) [facility]2014-04-06 09:19:00 Test Item Value Reference Range Interpretation Comments BUN (test code = BUN) 15 7-22 [facility]2014-04-06 09:19:00 Test Item Value Reference Range Interpretation Comments Sodium Lvl (test code = Sodium Lvl) 141 135-145 [facility]2014-04-06 09:19:00 Test Item Value Reference Range Interpretation Comments B/C Ratio (test code = B/C Ratio) 21 6-25 [facility]2014-04-06 09:19:00 Test Item Value Reference Range Interpretation Comments Globulin (test code = Globulin) 3.2 2.0-4.0 [facility]2014-04-06 09:19:00 Test Item Value Reference Range Interpretation Comments AGAP (test code = AGAP) 14.2 10.0-20.0 [facility]2014-04-06 09:19:00 Test Item Value Reference Range Interpretation Comments A/G Ratio (test code = A/G Ratio) 1.2 0.7-1.6 [facility]ZdilvyjWBWXKXYJHA3015-78-51 09:19:00 Test Item Value Reference Range Interpretation Comments Lymphocytes # (test code = Lymphocytes 3.5 1.0-5.5 #) [facility] HospitalWymacqzGSZKVDLJGL7424-60-54 09:19:00 Test Item Value Reference Range Interpretation Comments Monocytes # (test code 0.7 See_Comment [Aut omated message] The = Monocytes #) system which generated this result tra nsmitted reference range : <=0.8. The reference r celio was not used to int erpret this result as normal/abnormal . [facility] HospitalMzjdhhuKKARWUFVST3587-28-66 09:19:00 Test Item Value Reference Range Interpretation Comments Segs-Bands # (test code = Segs-Bands #) 3.9 1.5-8.1 [facility] HospitalSnyrltgSLTNBGDFBS6461-28-25 09:19:00 Test Item Value Reference Range Interpretation Comments Basophils (test code = 0.6 See_Comment [Aut omated message] The Basophils) system which ge nerated this result tra nsmitted reference range : <=1.0. The reference r celio was not used to int erpret this result as normal/abnormal . [facility] HospitalEaxtosoJIEAHZFFOW5416-57-59 09:19:00 Test Item Value Reference Range Interpretation Comments Segs (test code = Segs) 47.2 45.0-75.0 [facility] HospitalIndfiipJWDUACIMSQ2959-34-91 09:19:00 Test Item Value Reference Range Interpretation Comments Lymphocytes (test code = Lymphocytes) 41.8 20.0-40.0 [facility] HospitalMnrihzmXSKSSNULFQ7803-80-64 09:19:00 Test Item Value Reference Range Interpretation Comments Eosinophils (test code = 2.5 See_Comment [A utomated message] The Eosinophils) system which ge nerated this result tra nsmitted reference range : <=4.0. The reference r celio was not used to int erpret this result as normal/abnormal . [facility] HospitalRwaveedYQRXMAHFRT4870-53-36 09:19:00 Test Item Value Reference Range Interpretation Comments Monocytes (test code = Monocytes) 7.9 2.0-12.0 [facility] HospitalFjdjainZNWQGBIEEL2175-86-80 09:19:00 Test Item Value Reference Range Interpretation Comments Eosinophils # (test code 0.2 See_Comment [A utomated message] The = Eosinophils #) system whic h generated this result tra nsmitted reference range : <=0.5. The reference r celio was not used to int erpret this result as normal/abnormal . [facility] HospitalDayskkcKVHWJNXXTG6408-58-97 09:19:00 Test Item Value Reference Range Interpretation Comments Basophils # (test code 0.1 See_Comment [Aut omated message] The = Basophils #) system which generated this result tra nsmitted reference range : <=0.2. The reference r celio was not used to int erpret this result as normal/abnormal . [facility] HospitalUxtuuzmEEWNJYBQWC0605-96-60 09:19:00 Test Item Value Reference Range Interpretation Comments MCHC (test code = MCHC) 34.8 32.0-36.0 [facility] HospitalPtdoxavYPSBMRATWP1835-38-35 09:19:00 Test Item Value Reference Range Interpretation Comments RDW (test code = RDW) 14.6 11.5-14.5 [facility] HospitalWrnmoezIRSPYGVSVL8552-44-32 09:19:00 Test Item Value Reference Range Interpretation Comments Platelet (test code = Platelet) 296 133-450 [facility] HospitalVrlgnstMYPTZTGWYJ4716-97-19 09:19:00 Test Item Value Reference Range Interpretation Comments MPV (test code = MPV) 8.4 7.4-10.4 [facility] HospitalGefcolpSHPHREESNT8840-69-05 09:19:00 Test Item Value Reference Range Interpretation Comments WBC (test code = WBC) 8.4 3.7-10.4 [facility] HospitalQquwweeJJVIYTYQMS5545-66-61 09:19:00 Test Item Value Reference Range Interpretation Comments Hct (test code = Hct) 40.0 36.0-48.0 [facility] HospitalLvbltrhQQGGAIQOFQ8291-06-94 09:19:00 Test Item Value Reference Range Interpretation Comments Hgb (test code = Hgb) 13.9 12.0-16.0 [facility] HospitalNvmjomzGYRONEOPZU6538-10-97 09:19:00 Test Item Value Reference Range Interpretation Comments MCH (test code = MCH) 30.7 pg 27.0-31.0 [facility] HospitalJsjwenmWUVNNOBVUE7306-05-15 09:19:00 Test Item Value Reference Range Interpretation Comments MCV (test code = MCV) 88.3 81.0-99.0 [facility] HospitalXqcvjekSVHBIVFWCA5392-80-84 09:19:00 Test Item Value Reference Range Interpretation Comments RBC (test code = RBC) 4.53 4.20-5.40 [facility]LxqniscXHQHWFMVVZTK3362-79-44 10:29:00 Test Item Value Reference Range Interpretation Comments AGAP (test code = AGAP) 15.0 10.0-20.0 [facility] HospitalHguilnbXXCMPKMUNYBN4200-60-07 10:29:00 Test Item Value Reference Range Interpretation Comments eGFR (test code = eGFR) 88 [facility] HospitalOyipysqGUVDPLPOJBQB8385-35-20 10:29:00 Test Item Value Reference Range Interpretation Comments Calcium Lvl (test code = Calcium Lvl) 9.2 8.5-10.5 [facility] HospitalHawnnakVPOBATIAWWVO9183-48-96 10:29:00 Test Item Value Reference Range Interpretation Comments Chloride Lvl (test code = Chloride Lvl) 103 95-109 [facility] HospitalNantqpzUBJFFUDOAZXR7328-40-62 10:29:00 Test Item Value Reference Range Interpretation Comments CO2 (test code = CO2) 25 24-32 [facility] HospitalIganijsQHDHMEJZOKZS0611-95-21 10:29:00 Test Item Value Reference Range Interpretation Comments Potassium Lvl (test code = Potassium 4.0 3.5-5.1 Lvl) [facility] HospitalGtglqalYAFJWVHPOVOR2162-69-87 10:29:00 Test Item Value Reference Range Interpretation Comments Sodium Lvl (test code = Sodium Lvl) 139 135-145 [facility] HospitalKmzmkgoFQZQKUQHKPOR3771-44-60 10:29:00 Test Item Value Reference Range Interpretation Comments Creatinine Lvl (test code = Creatinine 0.8 0.5-1.4 Lvl) [facility] HospitalSgujwnfCBLKFCAQHAJP6680-43-77 10:29:00 Test Item Value Reference Range Interpretation Comments BUN (test code = BUN) 19 7-22 [facility] HospitalEygpogjUWKNEQUBZBMX3864-51-62 10:29:00 Test Item Value Reference Range Interpretation Comments Glucose Lvl (test code = Glucose Lvl) 87 70-99 [facility] HospitalTricefgCISBJXJPDA9237-87-81 10:29:00 Test Item Value Reference Range Interpretation Comments MPV (test code = MPV) 9.0 7.4-10.4 [facility] HospitalWinafpdNDJDVSPHVE9415-43-35 10:29:00 Test Item Value Reference Range Interpretation Comments Platelet (test code = Platelet) 299 133-450 [facility] HospitalHxxfrqdGUIQMCMLBZ7603-11-03 10:29:00 Test Item Value Reference Range Interpretation Comments MCHC (test code = MCHC) 34.4 32.0-36.0 [facility] HospitalSyvwdaaLDMNVSCAQK2349-54-02 10:29:00 Test Item Value Reference Range Interpretation Comments RDW (test code = RDW) 14.6 11.5-14.5 [facility] HospitalJkrqrdsYYZNWOGNHP6546-41-14 10:29:00 Test Item Value Reference Range Interpretation Comments MCH (test code = MCH) 30.5 pg 27.0-31.0 [facility] HospitalEavpzimNVFLLQWCCL1421-31-42 10:29:00 Test Item Value Reference Range Interpretation Comments RBC (test code = RBC) 4.33 4.20-5.40 [facility] HospitalDjmdzvvQWRNVRMKOY7355-89-36 10:29:00 Test Item Value Reference Range Interpretation Comments WBC (test code = WBC) 7.5 3.7-10.4 [facility] HospitalMdfwjvkKXSACTZYOE1489-81-04 10:29:00 Test Item Value Reference Range Interpretation Comments MCV (test code = MCV) 88.7 81.0-99.0 [facility] HospitalIxbumhuOPJLCUBCFH8991-11-42 10:29:00 Test Item Value Reference Range Interpretation Comments Hgb (test code = Hgb) 13.2 12.0-16.0 [facility] HospitalQfxxdpdUZAPCIPFXR2138-02-99 10:29:00 Test Item Value Reference Range Interpretation Comments Hct (test code = Hct) 38.4 36.0-48.0 [facility] HospitalMtwxohxTSCQAONUVC2404-28-08 10:29:00 Test Item Value Reference Range Interpretation Comments Monocytes (test code = Monocytes) 6.0 2.0-12.0 [facility] HospitalPjpjinsKWVSFDWBEP9095-68-26 10:29:00 Test Item Value Reference Range Interpretation Comments Eosinophils (test code = 2.2 See_Comment [A utomated message] The Eosinophils) system which ge nerated this result tra nsmitted reference range : <=4.0. The reference r celio was not used to int erpret this result as normal/abnormal . [facility] HospitalHmqascnUBHICXYBQE3665-87-68 10:29:00 Test Item Value Reference Range Interpretation Comments Eosinophils # (test code 0.2 See_Comment [A utomated message] The = Eosinophils #) system whic h generated this result tra nsmitted reference range : <=0.5. The reference r celio was not used to int erpret this result as normal/abnormal . [facility] HospitalSmqfxgpCAKKWRNOFO8427-90-24 10:29:00 Test Item Value Reference Range Interpretation Comments Lymphocytes (test code = Lymphocytes) 45.2 20.0-40.0 [facility] HospitalYaimytiDXZNVTDHVL1414-39-99 10:29:00 Test Item Value Reference Range Interpretation Comments Monocytes # (test code 0.4 See_Comment [Aut omated message] The = Monocytes #) system which generated this result tra nsmitted reference range : <=0.8. The reference r celio was not used to int erpret this result as normal/abnormal . [facility] HospitalVzrstyuXQCYUMNOXC1891-58-78 10:29:00 Test Item Value Reference Range Interpretation Comments Lymphocytes # (test code = Lymphocytes 3.4 1.0-5.5 #) [facility] HospitalMntwfjqAHGAYZHQWP1494-04-24 10:29:00 Test Item Value Reference Range Interpretation Comments Basophils (test code = 0.5 See_Comment [Aut omated message] The Basophils) system which ge nerated this result tra nsmitted reference range : <=1.0. The reference r celio was not used to int erpret this result as normal/abnormal . [facility] HospitalUxlxokdLMUIQWJCWL8515-79-96 10:29:00 Test Item Value Reference Range Interpretation Comments Segs-Bands # (test code = Segs-Bands #) 3.4 1.5-8.1 [facility] HospitalEdfhjprYRNJVDYOVH0393-04-17 10:29:00 Test Item Value Reference Range Interpretation Comments Segs (test code = Segs) 46.1 45.0-75.0 [facility] HospitalWytbxnpCTUEMYXOYBIK5939-58-69 10:29:00 Test Item Value Reference Range Interpretation Comments AGAP (test code = AGAP) 15.0 10.0-20.0 [facility] HospitalQstzdenBHYLDDSZZMYL9974-68-06 10:29:00 Test Item Value Reference Range Interpretation Comments eGFR (test code = eGFR) 88 [facility] HospitalGyczgzrCUQZDPFWEIYJ1014-89-69 10:29:00 Test Item Value Reference Range Interpretation Comments Calcium Lvl (test code = Calcium Lvl) 9.2 8.5-10.5 [facility] HospitalVfkpzxtGFSSWSXYOURT7935-21-92 10:29:00 Test Item Value Reference Range Interpretation Comments Chloride Lvl (test code = Chloride Lvl) 103 95-109 [facility] HospitalMappmfvRYVHCSZTYTPC9054-90-36 10:29:00 Test Item Value Reference Range Interpretation Comments CO2 (test code = CO2) 25 24-32 [facility] HospitalUzagewmPZHOQZNAZVGK3328-71-15 10:29:00 Test Item Value Reference Range Interpretation Comments Potassium Lvl (test code = Potassium 4.0 3.5-5.1 Lvl) [facility] HospitalSuodkyzBDUCSDKOOFWZ3651-61-26 10:29:00 Test Item Value Reference Range Interpretation Comments Sodium Lvl (test code = Sodium Lvl) 139 135-145 [facility] HospitalGtfhpcxWZBLSDWZNCVR6057-74-28 10:29:00 Test Item Value Reference Range Interpretation Comments Creatinine Lvl (test code = Creatinine 0.8 0.5-1.4 Lvl) [facility] HospitalWrazoefOSUHLBULSJVT3155-63-05 10:29:00 Test Item Value Reference Range Interpretation Comments BUN (test code = BUN) 19 7-22 [facility] HospitalHkjmnjmUSTILVFHXTBP8626-79-85 10:29:00 Test Item Value Reference Range Interpretation Comments Glucose Lvl (test code = Glucose Lvl) 87 70-99 [facility] HospitalHqljswlQOHYWFIJTI1891-50-68 10:29:00 Test Item Value Reference Range Interpretation Comments MPV (test code = MPV) 9.0 7.4-10.4 [facility] HospitalDmtfnrjTXUYWEUUTV4587-83-88 10:29:00 Test Item Value Reference Range Interpretation Comments Platelet (test code = Platelet) 299 133-450 [facility] HospitalHoiublbSCWPZZUNHA0827-98-20 10:29:00 Test Item Value Reference Range Interpretation Comments MCHC (test code = MCHC) 34.4 32.0-36.0 [facility] HospitalMlebbbiMFAPSTXYNU4466-03-15 10:29:00 Test Item Value Reference Range Interpretation Comments RDW (test code = RDW) 14.6 11.5-14.5 [facility] HospitalEgyqqohTIXPKDRHZG7317-96-33 10:29:00 Test Item Value Reference Range Interpretation Comments MCH (test code = MCH) 30.5 pg 27.0-31.0 [facility] HospitalWsfcvdjKMHPFOVUGH5715-39-38 10:29:00 Test Item Value Reference Range Interpretation Comments RBC (test code = RBC) 4.33 4.20-5.40 [facility] HospitalKemxbjzSDNQUSULGE5577-86-93 10:29:00 Test Item Value Reference Range Interpretation Comments WBC (test code = WBC) 7.5 3.7-10.4 [facility] HospitalTrhonkkZEZTRJCUHB5552-24-37 10:29:00 Test Item Value Reference Range Interpretation Comments MCV (test code = MCV) 88.7 81.0-99.0 [facility] HospitalRumcasuQAHQRSVHUU9311-26-54 10:29:00 Test Item Value Reference Range Interpretation Comments Hgb (test code = Hgb) 13.2 12.0-16.0 [facility] HospitalHrqiuefXORZAIQUWF7727-94-01 10:29:00 Test Item Value Reference Range Interpretation Comments Hct (test code = Hct) 38.4 36.0-48.0 [facility] HospitalAprasvyKZXZUDXRPW8096-53-92 10:29:00 Test Item Value Reference Range Interpretation Comments Monocytes (test code = Monocytes) 6.0 2.0-12.0 [facility] HospitalHgchvnmUAFVCNPPGG2510-77-88 10:29:00 Test Item Value Reference Range Interpretation Comments Eosinophils (test code = 2.2 See_Comment [A utomated message] The Eosinophils) system which ge nerated this result tra nsmitted reference range : <=4.0. The reference r celio was not used to int erpret this result as normal/abnormal . [facility] HospitalCeuclzaKVJNWSYFOS5235-84-70 10:29:00 Test Item Value Reference Range Interpretation Comments Eosinophils # (test code 0.2 See_Comment [A utomated message] The = Eosinophils #) system whic h generated this result tra nsmitted reference range : <=0.5. The reference r celio was not used to int erpret this result as normal/abnormal . [facility] HospitalAnuzgoeFJAIOJXNZH9083-21-04 10:29:00 Test Item Value Reference Range Interpretation Comments Lymphocytes (test code = Lymphocytes) 45.2 20.0-40.0 [facility] HospitalLlrvkynUYVYQKIHSK9355-69-38 10:29:00 Test Item Value Reference Range Interpretation Comments Monocytes # (test code 0.4 See_Comment [Aut omated message] The = Monocytes #) system which generated this result tra nsmitted reference range : <=0.8. The reference r celio was not used to int erpret this result as normal/abnormal . [facility] HospitalFuonmpbWSPBVWYTRA3129-42-27 10:29:00 Test Item Value Reference Range Interpretation Comments Lymphocytes # (test code = Lymphocytes 3.4 1.0-5.5 #) [facility] HospitalGykjxuhEELFOPYODM4080-71-79 10:29:00 Test Item Value Reference Range Interpretation Comments Basophils (test code = 0.5 See_Comment [Aut omated message] The Basophils) system which ge nerated this result tra nsmitted reference range : <=1.0. The reference r celio was not used to int erpret this result as normal/abnormal . [facility] HospitalSwqnpqwAQEPLFULCX3931-34-39 10:29:00 Test Item Value Reference Range Interpretation Comments Segs-Bands # (test code = Segs-Bands #) 3.4 1.5-8.1 [facility] HospitalJbbgnrrVRNULXJWYK7870-12-34 10:29:00 Test Item Value Reference Range Interpretation Comments Segs (test code = Segs) 46.1 45.0-75.0 [facility]2014-03-26 10:30:04 Test Item Value Reference Range Interpretation Comments Globulin (test code = Globulin) 3.3 2.0-4.0 [facility]2014-03-26 10:30:04 Test Item Value Reference Range Interpretation Comments A/G Ratio (test code = A/G Ratio) 1.1 0.7-1.6 [facility]2014-03-26 10:30:04 Test Item Value Reference Range Interpretation Comments ASPARTATE TRANSAMINASE 69 See_Comment [Aut omated message] (test code = ASPARTATE The s ystem which TRANSAMINASE) generated this result transmitted ref erence range: <=37. Th e reference range was not used to interpr et this result as normal/abnormal . [facility]2014-03-26 10:30:04 Test Item Value Reference Range Interpretation Comments Bili Indirect (test 0.2 See_Comment [Automa blayne message] The code = Bili Indirect) system which generated this result tra nsmitted reference range : <=1.0. The reference r celio was not used to int erpret this result as normal/abnormal . [facility]2014-03-26 10:30:04 Test Item Value Reference Range Interpretation Comments Bili Total (test code = Bili Total) 0.3 0.2-1.3 [facility]2014-03-26 10:30:04 Test Item Value Reference Range Interpretation Comments Total Protein (test code = Total 6.8 6.4-8.4 Protein) [facility]2014-03-26 10:30:04 Test Item Value Reference Range Interpretation Comments Alk Phos (test code = Alk Phos) 66 39-136 [facility]2014-03-26 10:30:04 Test Item Value Reference Range Interpretation Comments Bili Direct (test code 0.1 See_Comment [Aut omated message] The = Bili Direct) system which generated this result tra nsmitted reference range : <=0.3. The reference r celio was not used to int erpret this result as dequan l/abnormal. [facility]2014-03-26 10:30:04 Test Item Value Reference Range Interpretation Comments ALANINE AMINOTRANSFERASE 125 See_Comment [A utomated message] (test code = ALANINE The sys tem which AMINOTRANSFERASE) generated this result transmitted ref erence range: <=65. Th e reference range was not used to int erpret this result as normal/abnormal . [facility]2014-03-26 10:30:04 Test Item Value Reference Range Interpretation Comments Albumin Lvl (test code = Albumin Lvl) 3.5 3.5-5.0 [facility]2014-03-26 10:30:04 Test Item Value Reference Range Interpretation Comments Globulin (test code = Globulin) 3.3 2.0-4.0 [place] 942064-03-26 10:30:04 Test Item Value Reference Range Interpretation Comments A/G Ratio (test code = A/G Ratio) 1.1 0.7-1.6 [facility]2014-03-26 10:30:04 Test Item Value Reference Range Interpretation Comments ASPARTATE TRANSAMINASE 69 See_Comment [Aut omated message] (test code = ASPARTATE The s ystem which TRANSAMINASE) generated this result transmitted ref erence range: <=37. Th e reference range was not used to interpr et this result as normal/abnormal . [facility]2014-03-26 10:30:04 Test Item Value Reference Range Interpretation Comments Bili Indirect (test 0.2 See_Comment [Automa blayne message] The code = Bili Indirect) system which generated this result tra nsmitted reference range : <=1.0. The reference r celio was not used to int erpret this result as normal/abnormal . [facility]2014-03-26 10:30:04 Test Item Value Reference Range Interpretation Comments Bili Total (test code = Bili Total) 0.3 0.2-1.3 [facility]2014-03-26 10:30:04 Test Item Value Reference Range Interpretation Comments Total Protein (test code = Total 6.8 6.4-8.4 Protein) [facility]2014-03-26 10:30:04 Test Item Value Reference Range Interpretation Comments Alk Phos (test code = Alk Phos) 66 39-136 [facility]2014-03-26 10:30:04 Test Item Value Reference Range Interpretation Comments Bili Direct (test code 0.1 See_Comment [Aut omated message] The = Bili Direct) system which generated this result tra nsmitted reference range : <=0.3. The reference r celio was not used to int erpret this result as dequan l/abnormal. [facility]2014-03-26 10:30:04 Test Item Value Reference Range Interpretation Comments ALANINE AMINOTRANSFERASE 125 See_Comment [A utomated message] (test code = ALANINE The sys tem which AMINOTRANSFERASE) generated this result transmitted ref erence range: <=65. Th e reference range was not used to int erpret this result as normal/abnormal . [facility]2014-03-26 10:30:04 Test Item Value Reference Range Interpretation Comments Albumin Lvl (test code = Albumin Lvl) 3.5 3.5-5.0 [facility]2014-03-24 10:03:00 Test Item Value Reference Range Interpretation Comments Magnesium Lvl (test code = Magnesium 1.5 1.8-2.4 Lvl) [facility]2014-03-24 10:03:00 Test Item Value Reference Range Interpretation Comments Phosphorus (test code = Phosphorus) 4.4 2.5-4.5 [facility]EXNM0841[facility]97 10:03:00 Test Item Value Reference Range Interpretation Comments VLDL (test code = VLDL) 38 [facility] CenterRkxlqqwIAPYHP0762-06-51 10:03:00 Test Item Value Reference Range Interpretation Comments LDL (Calculated) (test code = LDL 121 (Calculated)) [facility] CenterAdcdsshBDXWUP4162-76-92 10:03:00 Test Item Value Reference Range Interpretation Comments Chol (test code = Chol) 208 [facility]XlghbxfJVKOHM8179-70-02 10:03:00 Test Item Value Reference Range Interpretation Comments Trig (test code = Trig) 191 [facility]AuvbfheSYHFUE7723-89-75 10:03:00 Test Item Value Reference Range Interpretation Comments HDL (test code = HDL) 49 [facility] CenterTdcenytYSOZTB3695-39-06 10:03:00 Test Item Value Reference Range Interpretation Comments CHD Risk (test code = CHD Risk) 4.24 3.90-5.80 [facility] IHQEB7544-64-20 10:03:00 Test Item Value Reference Range Interpretation Comments Magnesium Lvl (test code = Magnesium 1.5 1.8-2.4 Lvl) [facility] ENTKI8452-09-88 10:03:00 Test Item Value Reference Range Interpretation Comments Phosphorus (test code = Phosphorus) 4.4 2.5-4.5 [facility] CenterDxaawbjSDHRXK5833-19-71 10:03:00 Test Item Value Reference Range Interpretation Comments VLDL (test code = VLDL) 38 [facility] CenterLgdffhdORFAFP0687-40-18 10:03:00 Test Item Value Reference Range Interpretation Comments LDL (Calculated) (test code = LDL 121 (Calculated)) [facility] CenterFzsjdxcONVDQQ2006-61-22 10:03:00 Test Item Value Reference Range Interpretation Comments Chol (test code = Chol) 208 [facility] CenterUxyatvdDSMFTS6880-09-86 10:03:00 Test Item Value Reference Range Interpretation Comments Trig (test code = Trig) 191 [facility] CenterDpmjpbrTTQRQX4193-99-13 10:03:00 Test Item Value Reference Range Interpretation Comments HDL (test code = HDL) 49 [facility] CenterYduqflaGCYTCL3216-03-10 10:03:00 Test Item Value Reference Range Interpretation Comments CHD Risk (test code = CHD Risk) 4.24 3.90-5.80 [facility]2014-03-21 11:00:00 Test Item Value Reference Range Interpretation Comments Bili Indirect (test 0.2 See_Comment [Automa blayne message] The code = Bili Indirect) system which generated this result tra nsmitted reference range : <=1.0. The reference r celio was not used to int erpret this result as normal/abnormal . [facility]2014-03-21 11:00:00 Test Item Value Reference Range Interpretation Comments Bili Direct (test code 0.1 See_Comment [Aut omated message] The = Bili Direct) system which generated this result tra nsmitted reference range : <=0.3. The reference r celio was not used to int erpret this result as dequan l/abnormal. [facility]2014-03-21 11:00:00 Test Item Value Reference Range Interpretation Comments Bili Indirect (test 0.2 See_Comment [Automa blayne message] The code = Bili Indirect) system which generated this result tra nsmitted reference range : <=1.0. The reference r celio was not used to int erpret this result as normal/abnormal . [facility]2014-03-21 11:00:00 Test Item Value Reference Range Interpretation Comments Bili Direct (test code 0.1 See_Comment [Aut omated message] The = Bili Direct) system which generated this result tra nsmitted reference range : <=0.3. The reference r celio was not used to int erpret this result as dequan l/abnormal. [facility]2014-03-17 06:57:53 Test Item Value Reference Range Interpretation Comments B/C Ratio (test code = B/C Ratio) 03-17 [facility]2014-03-17 06:57:53 Test Item Value Reference Range Interpretation Comments B/C Ratio (test code = B/C Ratio) 12 03-17 [facility]2014-03-14 11:45:00 Test Item Value Reference Range Interpretation Comments Vitamin B12 Lvl (test code = Vitamin [phone] B12 Lvl) [facility]2014-03-14 11:45:00 Test Item Value Reference Range Interpretation Comments Folate Lvl (test code = Folate Lvl) 17.6 [place] 942064-03-14 11:45:00 Test Item Value Reference Range Interpretation Comments Magnesium Lvl (test code = Magnesium 2.0 1.8-2.4 Lvl) [facility]2014-03-14 11:45:00 Test Item Value Reference Range Interpretation Comments VITAMIN B1 (THIAMINE) WHOLE BLOOD (test 71 78-185 code = VITAMIN B1 (THIAMINE) WHOLE BLOOD) [facility]2014-03-14 11:45:00 Test Item Value Reference Range Interpretation Comments Vitamin B12 Lvl (test code = Vitamin [phone] B12 Lvl) [facility]2014-03-14 11:45:00 Test Item Value Reference Range Interpretation Comments Folate Lvl (test code = Folate Lvl) 17.6 [facility]2014-03-14 11:45:00 Test Item Value Reference Range Interpretation Comments Magnesium Lvl (test code = Magnesium 2.0 1.8-2.4 Lvl) [facility]2014-03-14 11:45:00 Test Item Value Reference Range Interpretation Comments VITAMIN B1 (THIAMINE) WHOLE BLOOD (test 71 78-185 code = VITAMIN B1 (THIAMINE) WHOLE BLOOD) [facility]2014 10:05:00 Test Item Value Reference Range Interpretation Comments Amylase Lvl (test code = Amylase Lvl) 46 25-115 [facility]2014 10:05:00 Test Item Value Reference Range Interpretation Comments Lipase Lvl (test code = Lipase Lvl) 152 73-393 [facility]2014 10:05:00 Test Item Value Reference Range Interpretation Comments Amylase Lvl (test code = Amylase Lvl) 46 25-115 [facility]2014 10:05:00 Test Item Value Reference Range Interpretation Comments Lipase Lvl (test code = Lipase Lvl) 152 73-393 [facility]WkkzlwiCKHHOSYOXT7150-25-15 19:46:00 Test Item Value Reference Range Interpretation Comments aPTT (test code = aPTT) 30.8 s 22.9-35.8 [facility] HospitalHirxqisNKQOLGGPJO5533-11-25 19:46:00 Test Item Value Reference Range Interpretation Comments aPTT (test code = aPTT) 30.8 s 22.9-35.8 [facility] FALCWIH4948-50-10 10:25:00 Test Item Value Reference Range Interpretation Comments Total CK (test code = Total CK) 58 12-191 [facility]2014-03-10 10:25:00 Test Item Value Reference Range Interpretation Comments Calcium Lvl (test code = Calcium Lvl) 9.4 8.5-10.5 [facility]2014-03-10 10:25:00 Test Item Value Reference Range Interpretation Comments Magnesium Lvl (test code = Magnesium 1.9 1.8-2.4 Lvl) [facility]2014-03-10 10:25:00 Test Item Value Reference Range Interpretation Comments Phosphorus (test code = Phosphorus) 5.0 2.5-4.5 [facility]2014-03-10 10:25:00 Test Item Value Reference Range Interpretation Comments A/G Ratio (test code = A/G Ratio) 1.3 0.7-1.6 [facility]2014-03-10 10:25:00 Test Item Value Reference Range Interpretation Comments Globulin (test code = Globulin) 2.9 2.0-4.0 [facility]2014-03-10 10:25:00 Test Item Value Reference Range Interpretation Comments Bili Indirect (test 0.3 See_Comment [Automa blayne message] The code = Bili Indirect) system which generated this result tra nsmitted reference range : <=1.0. The reference r celio was not used to int erpret this result as normal/abnormal . [facility]2014-03-10 10:25:00 Test Item Value Reference Range Interpretation Comments Alk Phos (test code = Alk Phos) 97 39-136 [facility]2014-03-10 10:25:00 Test Item Value Reference Range Interpretation Comments Total Protein (test code = Total 6.6 6.4-8.4 Protein) [facility]2014-03-10 10:25:00 Test Item Value Reference Range Interpretation Comments Bili Direct (test code 0.1 See_Comment [Aut omated message] The = Bili Direct) system which generated this result tra nsmitted reference range : <=0.3. The reference r celio was not used to int erpret this result as dequan l/abnormal. [facility]2014-03-10 10:25:00 Test Item Value Reference Range Interpretation Comments ALANINE AMINOTRANSFERASE 116 See_Comment [A utomated message] (test code = ALANINE The sys tem which AMINOTRANSFERASE) generated this result transmitted ref erence range: <=65. Th e reference range was not used to int erpret this result as normal/abnormal . [facility]2014-03-10 10:25:00 Test Item Value Reference Range Interpretation Comments Albumin Lvl (test code = Albumin Lvl) 3.7 3.5-5.0 [facility]2014-03-10 10:25:00 Test Item Value Reference Range Interpretation Comments Bili Total (test code = Bili Total) 0.4 0.2-1.3 [facility]2014-03-10 10:25:00 Test Item Value Reference Range Interpretation Comments ASPARTATE TRANSAMINASE 63 See_Comment [Aut omated message] (test code = ASPARTATE The s ystem which TRANSAMINASE) generated this result transmitted ref erence range: <=37. Th e reference range was not used to interpr et this result as normal/abnormal . [facility]XabuqmlYHGZFYAQMRFM0796-96-91 10:25:00 Test Item Value Reference Range Interpretation Comments AGAP (test code = AGAP) 14.1 10.0-20.0 [facility] HospitalVkstvhiRRSDNDWPKHMW6720-03-64 10:25:00 Test Item Value Reference Range Interpretation Comments eGFR (test code = eGFR) 104 [facility] HospitalTwcercrGOXKMWLOHEKE6440-92-73 10:25:00 Test Item Value Reference Range Interpretation Comments Creatinine Lvl (test code = Creatinine 0.7 0.5-1.4 Lvl) [facility] HospitalRoqxpfuDRXEPNBMBHVE7136-19-66 10:25:00 Test Item Value Reference Range Interpretation Comments BUN (test code = BUN) 13 7-22 [facility] HospitalTmljsrbAUBJHSFZXFON2013-19-83 10:25:00 Test Item Value Reference Range Interpretation Comments Glucose Lvl (test code = Glucose Lvl) 101 70-99 [facility] HospitalDzvbehhUQWTNXAPWUYJ4362-31-32 10:25:00 Test Item Value Reference Range Interpretation Comments Sodium Lvl (test code = Sodium Lvl) 141 135-145 [facility] HospitalQegvjzrCHXTASBSNUDE2482-44-23 10:25:00 Test Item Value Reference Range Interpretation Comments Calcium Lvl (test code = Calcium Lvl) 9.4 8.5-10.5 [facility] HospitalRvqkzmhNQSVKDHUSQOC5796-88-94 10:25:00 Test Item Value Reference Range Interpretation Comments Chloride Lvl (test code = Chloride Lvl) 105 95-109 [facility] HospitalHhnbvpdVPJVZWLMWVAJ8406-58-26 10:25:00 Test Item Value Reference Range Interpretation Comments CO2 (test code = CO2) 26 24-32 [facility] HospitalTaehevlHJVCJROPNYTI2261-80-95 10:25:00 Test Item Value Reference Range Interpretation Comments Potassium Lvl (test code = Potassium 4.1 3.5-5.1 Lvl) [facility] HospitalAyargecKDIFOITICP0269-32-35 10:25:00 Test Item Value Reference Range Interpretation Comments MCV (test code = MCV) 89.0 81.0-99.0 [facility] HospitalWjjrzvhGWDANPETTF0999-69-43 10:25:00 Test Item Value Reference Range Interpretation Comments Hct (test code = Hct) 43.6 36.0-48.0 [facility] HospitalUnocquaIXDXAFNZIU5421-77-68 10:25:00 Test Item Value Reference Range Interpretation Comments MPV (test code = MPV) 8.5 7.4-10.4 [facility] HospitalHuvwlndYDKFWGMZDZ9211-38-48 10:25:00 Test Item Value Reference Range Interpretation Comments Platelet (test code = Platelet) 291 133-450 [facility] HospitalJjxzctxKXHEMWNLXX8522-80-31 10:25:00 Test Item Value Reference Range Interpretation Comments RDW (test code = RDW) 13.8 11.5-14.5 [facility] HospitalFliljocCKYXQLCAKP2008-20-14 10:25:00 Test Item Value Reference Range Interpretation Comments MCHC (test code = MCHC) 34.7 32.0-36.0 [facility] HospitalIkvlpvkTJRYXKTEGL8348-96-33 10:25:00 Test Item Value Reference Range Interpretation Comments MCH (test code = MCH) 30.9 pg 27.0-31.0 [facility] HospitalCyvvdwvABLXONFUPB5894-32-32 10:25:00 Test Item Value Reference Range Interpretation Comments RBC X 10x6 (test code = RBC X 10x6) 4.90 4.20-5.40 [facility] HospitalRmslpxfNKDJNREKGU6419-82-39 10:25:00 Test Item Value Reference Range Interpretation Comments WBC X 10x3 (test code = WBC X 10x3) 7.6 3.7-10.4 [facility] HospitalTmojjmoDKXMYKXZMC1387-72-42 10:25:00 Test Item Value Reference Range Interpretation Comments Hgb (test code = Hgb) 15.1 12.0-16.0 [facility] HospitalOxocxisTRLZZAEUSA6495-36-05 10:25:00 Test Item Value Reference Range Interpretation Comments Eosinophils # (test code 0.3 See_Comment [A utomated message] The = Eosinophils #) system [facility] h generated this result tra nsmitted reference range : <=0.5. The reference r celio was not used to int erpret this result as normal/abnormal . [facility] HospitalJyolgjxZPSKQSNZAV5368-78-65 10:25:00 Test Item Value Reference Range Interpretation Comments Lymphocytes # (test code = Lymphocytes 3.3 1.0-5.5 #) [facility] HospitalLvgulrpPQBCGKMWAP1669-97-60 10:25:00 Test Item Value Reference Range Interpretation Comments Monocytes # (test code 0.6 See_Comment [Aut omated message] The = Monocytes #) system which generated this result tra nsmitted reference range : <=0.8. The reference r celio was not used to int erpret this result as normal/abnormal . [facility] HospitalXawceryZABOWRUBSY5336-81-53 10:25:00 Test Item Value Reference Range Interpretation Comments Segs-Bands # (test code = Segs-Bands #) 3.4 1.5-8.1 [facility] HospitalQwfxabhAGUGUSFWHU1109-61-49 10:25:00 Test Item Value Reference Range Interpretation Comments Basophils (test code = 0.5 See_Comment [Aut omated message] The Basophils) system which ge nerated this result tra nsmitted reference range : <=1.0. The reference r celio was not used to int erpret this result as normal/abnormal . [facility] HospitalUnzeobkDEWDMIRTRN8555-41-12 10:25:00 Test Item Value Reference Range Interpretation Comments Segs (test code = Segs) 45.3 45.0-75.0 [facility] HospitalWbkgtlxLEAYKHMHAE3526-08-68 10:25:00 Test Item Value Reference Range Interpretation Comments Monocytes (test code = Monocytes) 7.9 2.0-12.0 [facility] HospitalQjrmetbADUNSXSGHF2122-49-10 10:25:00 Test Item Value Reference Range Interpretation Comments Eosinophils (test code = 3.4 See_Comment [A utomated message] The Eosinophils) system which ge nerated this result tra nsmitted reference range : <=4.0. The reference r celio was not used to int erpret this result as normal/abnormal . [facility] CenterMuuuisnLHOCPBAUXO1338-17-02 10:25:00 Test Item Value Reference Range Interpretation Comments Lymphocytes (test code = Lymphocytes) 42.9 20.0-40.0 [facility] CenterCARDIAC PIWFJPB4124-97-59 10:25:00 Test Item Value Reference Range Interpretation Comments Total CK (test code = Total CK) 58 12-191 [facility]2014-03-10 10:25:00 Test Item Value Reference Range Interpretation Comments Calcium Lvl (test code = Calcium Lvl) 9.4 8.5-10.5 [facility]2014-03-10 10:25:00 Test Item Value Reference Range Interpretation Comments Magnesium Lvl (test code = Magnesium 1.9 1.8-2.4 Lvl) [facility]2014-03-10 10:25:00 Test Item Value Reference Range Interpretation Comments Phosphorus (test code = Phosphorus) 5.0 2.5-4.5 [facility]2014-03-10 10:25:00 Test Item Value Reference Range Interpretation Comments A/G Ratio (test code = A/G Ratio) 1.3 0.7-1.6 [facility]2014-03-10 10:25:00 Test Item Value Reference Range Interpretation Comments Globulin (test code = Globulin) 2.9 2.0-4.0 [facility]2014-03-10 10:25:00 Test Item Value Reference Range Interpretation Comments Bili Indirect (test 0.3 See_Comment [Automa blayne message] The code = Bili Indirect) system which generated this result tra nsmitted reference range : <=1.0. The reference r celio was not used to int erpret this result as normal/abnormal . [facility]2014-03-10 10:25:00 Test Item Value Reference Range Interpretation Comments Alk Phos (test code = Alk Phos) 97 39-136 [facility]2014-03-10 10:25:00 Test Item Value Reference Range Interpretation Comments Total Protein (test code = Total 6.6 6.4-8.4 Protein) [facility]2014-03-10 10:25:00 Test Item Value Reference Range Interpretation Comments Bili Direct (test code 0.1 See_Comment [Aut omated message] The = Bili Direct) system which generated this result tra nsmitted reference range : <=0.3. The reference r celio was not used to int erpret this result as dequan l/abnormal. [facility]2014-03-10 10:25:00 Test Item Value Reference Range Interpretation Comments ALANINE AMINOTRANSFERASE 116 See_Comment [A utomated message] (test code = ALANINE The sys tem which AMINOTRANSFERASE) generated this result transmitted ref erence range: <=65. Th e reference range was not used to int erpret this result as normal/abnormal . [facility]2014-03-10 10:25:00 Test Item Value Reference Range Interpretation Comments Albumin Lvl (test code = Albumin Lvl) 3.7 3.5-5.0 [facility]2014-03-10 10:25:00 Test Item Value Reference Range Interpretation Comments Bili Total (test code = Bili Total) 0.4 0.2-1.3 [facility]2014-03-10 10:25:00 Test Item Value Reference Range Interpretation Comments ASPARTATE TRANSAMINASE 63 See_Comment [Aut omated message] (test code = ASPARTATE The s ystem which TRANSAMINASE) generated this result transmitted ref erence range: <=37. Th e reference range was not used to interpr et this result as normal/abnormal . [facility] HospitalAizsrnvNOAVMGILSFCD2280-28-91 10:25:00 Test Item Value Reference Range Interpretation Comments AGAP (test code = AGAP) 14.1 10.0-20.0 [facility] HospitalYdtgdhjHKLFWDIRIXNZ9698-61-54 10:25:00 Test Item Value Reference Range Interpretation Comments eGFR (test code = eGFR) 104 [facility] HospitalBlfzwsjJVOJXWJNCBON0587-91-51 10:25:00 Test Item Value Reference Range Interpretation Comments Creatinine Lvl (test code = Creatinine 0.7 0.5-1.4 Lvl) [facility] HospitalIypxvxvDHGTRAUEYLZM0735-63-66 10:25:00 Test Item Value Reference Range Interpretation Comments BUN (test code = BUN) 13 7-22 [facility] HospitalWzzyvvdJUOQRCJWLUXQ4760-73-44 10:25:00 Test Item Value Reference Range Interpretation Comments Glucose Lvl (test code = Glucose Lvl) 101 70-99 [facility] HospitalQfsmhycWHRJAJYSHVLI1482-81-06 10:25:00 Test Item Value Reference Range Interpretation Comments Sodium Lvl (test code = Sodium Lvl) 141 135-145 [facility] HospitalMgkglinVWJKKDVUFZUK9943-99-67 10:25:00 Test Item Value Reference Range Interpretation Comments Calcium Lvl (test code = Calcium Lvl) 9.4 8.5-10.5 [facility] HospitalNnvbjlhVJMIKVUITDKV7476-96-74 10:25:00 Test Item Value Reference Range Interpretation Comments Chloride Lvl (test code = Chloride Lvl) 105 95-109 [facility] HospitalPwlopfcXXDDCKJFACOT3489-03-30 10:25:00 Test Item Value Reference Range Interpretation Comments CO2 (test code = CO2) 26 24-32 [facility] HospitalEqudopfLYDPDLQEQSRS6434-94-55 10:25:00 Test Item Value Reference Range Interpretation Comments Potassium Lvl (test code = Potassium 4.1 3.5-5.1 Lvl) [facility] HospitalFckixusMZCYQTRYNI1070-53-46 10:25:00 Test Item Value Reference Range Interpretation Comments MCV (test code = MCV) 89.0 81.0-99.0 [facility] HospitalUbicwqyLLFURVYRIE4868-51-27 10:25:00 Test Item Value Reference Range Interpretation Comments Hct (test code = Hct) 43.6 36.0-48.0 [facility] HospitalPilrffrRPTAKCWLQH9756-90-10 10:25:00 Test Item Value Reference Range Interpretation Comments MPV (test code = MPV) 8.5 7.4-10.4 [facility] HospitalEoxxwhnJEZROBYMVI4940-35-17 10:25:00 Test Item Value Reference Range Interpretation Comments Platelet (test code = Platelet) 291 133-450 [facility] HospitalDetnlcrVYFGCWJWRD6810-80-17 10:25:00 Test Item Value Reference Range Interpretation Comments RDW (test code = RDW) 13.8 11.5-14.5 [facility] HospitalNiyxyhiVOLIWMYVIP7754-22-01 10:25:00 Test Item Value Reference Range Interpretation Comments MCHC (test code = MCHC) 34.7 32.0-36.0 [facility] HospitalFanldviMPRJTTDCCH0128-79-73 10:25:00 Test Item Value Reference Range Interpretation Comments MCH (test code = MCH) 30.9 pg 27.0-31.0 [facility] HospitalZwzzrioKYXJCKMOIB8043-11-36 10:25:00 Test Item Value Reference Range Interpretation Comments RBC X 10x6 (test code = RBC X 10x6) 4.90 4.20-5.40 [facility] HospitalYqdykteJGKTAJNXQC9859-10-38 10:25:00 Test Item Value Reference Range Interpretation Comments WBC X 10x3 (test code = WBC X 10x3) 7.6 3.7-10.4 [facility] HospitalNzokrcaNXVABUZCGF2933-70-36 10:25:00 Test Item Value Reference Range Interpretation Comments Hgb (test code = Hgb) 15.1 12.0-16.0 [facility] HospitalPqpovlqKRSTIFNDFG3508-21-91 10:25:00 Test Item Value Reference Range Interpretation Comments Eosinophils # (test code 0.3 See_Comment [A utomated message] The = Eosinophils #) system whic h generated this result tra nsmitted reference range : <=0.5. The reference r celio was not used to int erpret this result as normal/abnormal . [facility] HospitalPqdhfhkJCXXJMHTYU1968-66-87 10:25:00 Test Item Value Reference Range Interpretation Comments Lymphocytes # (test code = Lymphocytes 3.3 1.0-5.5 #) [facility] HospitalGphqkgpDXPHOQXTSU1898-11-17 10:25:00 Test Item Value Reference Range Interpretation Comments Monocytes # (test code 0.6 See_Comment [Aut omated message] The = Monocytes #) system which generated this result tra nsmitted reference range : <=0.8. The reference r celio was not used to int erpret this result as normal/abnormal . [facility] HospitalNjujvvfQCUNSDPRIO3252-12-19 10:25:00 Test Item Value Reference Range Interpretation Comments Segs-Bands # (test code = Segs-Bands #) 3.4 1.5-8.1 [facility] HospitalZrmnkfmAUCCVUDMLR3786-89-21 10:25:00 Test Item Value Reference Range Interpretation Comments Basophils (test code = 0.5 See_Comment [Aut omated message] The Basophils) system which ge nerated this result tra nsmitted reference range : <=1.0. The reference r celio was not used to int erpret this result as normal/abnormal . [facility] HospitalGfdpaygKYVGSNCIFK7868-21-83 10:25:00 Test Item Value Reference Range Interpretation Comments Segs (test code = Segs) 45.3 45.0-75.0 [facility] HospitalIlqtthzRXHODXSZRN3681-50-17 10:25:00 Test Item Value Reference Range Interpretation Comments Monocytes (test code = Monocytes) 7.9 2.0-12.0 [facility] HospitalBebmocqMOYEGFTTYS7354-95-29 10:25:00 Test Item Value Reference Range Interpretation Comments Eosinophils (test code = 3.4 See_Comment [A utomated message] The Eosinophils) system which ge nerated this result tra nsmitted reference range : <=4.0. The reference r celio was not used to int erpret this result as normal/abnormal . [facility] HospitalLtzikcqPDCTPJANNI9338-96-41 10:25:00 Test Item Value Reference Range Interpretation Comments Lymphocytes (test code = Lymphocytes) 42.9 20.0-40.0 [facility] AND CMTKX2487-16-95 13:26:07 Test Item Value Reference Range Interpretation Comments UA Urobilinogen (test code = UA <=1.0 mg/dL 0.1-1.0 Urobilinogen) [facility] AND [id number] 13:26:07 Test Item Value Reference Range Interpretation Comments UA WBC (test code = no gt See_Comment [Automa blayne message] The UA WBC) system which ge nerated this result transmit blayne reference range : <=5. The reference range was not used to interpr et this result as dequan l/abnormal. [facility] AND [id number] 13:26:07 Test Item Value Reference Range Interpretation Comments UA RBC (test code = 2 See_Comment [Automa blayne message] The UA RBC) system which ge nerated this result transmit blayne reference range : <=2. The reference range was not used to interpr et this result as dequan l/abnormal. [facility] AND UTQIV2810-12-10 13:26:07 Test Item Value Reference Range Interpretation Comments UA Sq Epi (test code = UA Sq Epi) Many /LPF [facility] AND [id number] 13:26:07 Test Item Value Reference Range Interpretation Comments UA Mucus (test code = UA Mucus) Many /LPF [facility] AND [id number] 13:26:07 Test Item Value Reference Range Interpretation Comments UA Bacteria (test code = UA Few /HPF Bacteria) [facility] AND [id number] 13:26:07 Test Item Value Reference Range Interpretation Comments UA Amorph Valeria (test code = UA Moderate /HPF Amorph Valeria) [facility] AND [id number] 13:26:07 Test Item Value Reference Range Interpretation Comments UA Leuk Est (test code Large *ABN*(11/29/2013 = UA Leuk Est) 08:26:07 Isabelle/Goldsmith) [facility] AND [id number] 13:26:07 Test Item Value Reference Range Interpretation Comments UA Blood (test code = Trace *ABN*(11/29/2013 UA Blood) 08:26:07 Isabelle/Goldsmith) [facility] AND [id number] 13:26:07 Test Item Value Reference Range Interpretation Comments UA Nitrite (test code Negative (11/29/2013 = UA Nitrite) 08:26:07 Isabelle/Goldsmith) [facility] AND [id number] 13:26:07 Test Item Value Reference Range Interpretation Comments UA Protein (test code = UA Protein) 30 mg/dL [facility] AND [id number] 13:26:07 Test Item Value Reference Range Interpretation Comments UA pH (test code = UA pH) 6.5 5.0-8.0 [facility] AND [id number] 13:26:07 Test Item Value Reference Range Interpretation Comments UA Glucose (test code = UA Negative mg/dL Glucose) [facility] AND [id number] 13:26:07 Test Item Value Reference Range Interpretation Comments UA Bili (test code = Negative *NA*(11/29/2013 UA Bili) 08:26:07 Isabelle/Goldsmith) [facility] AND [id number] 13:26:07 Test Item Value Reference Range Interpretation Comments UA Ketones (test code = UA Negative mg/dL Ketones) [facility] AND [id number] 13:26:07 Test Item Value Reference Range Interpretation Comments UA Color (test code = Yellow *NA*(11/29/2013 UA Color) 08:26:07 Isabelle/Goldsmith) [facility] AND [id number] 13:26:07 Test Item Value Reference Range Interpretation Comments UA Turbidity (test code Marked = UA Turbidity) *ABN*(11/29/2013 08:26:07 Isabelle/Goldsmith) [facility] AND [id number] 13:26:07 Test Item Value Reference Range Interpretation Comments UA Spec Grav (test code = UA Spec Grav) 1.014 [facility] AND [id number] 13:26:07 Test Item Value Reference Range Interpretation Comments UA Urobilinogen (test code = UA <=1.0 mg/dL 0.1-1.0 Urobilinogen) [facility] AND [id number] 13:26:07 Test Item Value Reference Range Interpretation Comments UA WBC (test code = no gt See_Comment [Automa blayne message] The UA WBC) system which ge nerated this result transmit blayne reference range : <=5. The reference range was not used to interpr et this result as dequan l/abnormal. [facility] AND [id number] 13:26:07 Test Item Value Reference Range Interpretation Comments UA RBC (test code = 2 See_Comment [Automa blayne message] The UA RBC) system which ge nerated this result transmit blayne reference range : <=2. The reference range was not used to interpr et this result as dequan l/abnormal. [facility] AND [id number] 13:26:07 Test Item Value Reference Range Interpretation Comments UA Sq Epi (test code = UA Sq Epi) Many /LPF [facility] AND [id number] 13:26:07 Test Item Value Reference Range Interpretation Comments UA Mucus (test code = UA Mucus) Many /LPF [facility] AND [id number] 13:26:07 Test Item Value Reference Range Interpretation Comments UA Bacteria (test code = UA Few /HPF Bacteria) [facility] AND [id number] 13:26:07 Test Item Value Reference Range Interpretation Comments UA Amorph Valeira (test code = UA Moderate /HPF Amorph Valeria) [facility] AND [id number] 13:26:07 Test Item Value Reference Range Interpretation Comments UA Leuk Est (test code Large *ABN*(11/29/2013 = UA Leuk Est) 08:26:07 Isabelle/Goldsmith) [facility] AND [id number] 13:26:07 Test Item Value Reference Range Interpretation Comments UA Blood (test code = Trace *ABN*(11/29/2013 UA Blood) 08:26:07 Isabelle/Goldsmith) [facility] AND [id number] 13:26:07 Test Item Value Reference Range Interpretation Comments UA Nitrite (test code Negative (11/29/2013 = UA Nitrite) 08:26:07 Isabelle/Goldsmith) [facility] AND [id number] 13:26:07 Test Item Value Reference Range Interpretation Comments UA Protein (test code = UA Protein) 30 mg/dL [facility] AND [id number] 13:26:07 Test Item Value Reference Range Interpretation Comments UA pH (test code = UA pH) 6.5 5.0-8.0 [facility] AND [id number] 13:26:07 Test Item Value Reference Range Interpretation Comments UA Glucose (test code = UA Negative mg/dL Glucose) [facility] AND [id number] 13:26:07 Test Item Value Reference Range Interpretation Comments UA Bili (test code = Negative *NA*(11/29/2013 UA Bili) 08:26:07 Isabelle/Goldsmith) [facility] AND [id number] 13:26:07 Test Item Value Reference Range Interpretation Comments UA Ketones (test code = UA Negative mg/dL Ketones) [facility] AND [id number] 13:26:07 Test Item Value Reference Range Interpretation Comments UA Color (test code = Yellow *NA*(11/29/2013 UA Color) 08:26:07 Isabelle/Goldsmith) [facility] AND [id number] 13:26:07 Test Item Value Reference Range Interpretation Comments UA Turbidity (test code Marked = UA Turbidity) *ABN*(11/29/2013 08:26:07 Isabelle/Goldsmith) [facility] AND [id number] 13:26:07 Test Item Value Reference Range Interpretation Comments UA Spec Grav (test code = UA Spec Grav) 1.014 [facility]2014-03-09 11:31:57 Test Item Value Reference Range Interpretation Comments eGFR (test code = eGFR) 104 [facility]2014-03-09 11:31:57 Test Item Value Reference Range Interpretation Comments Calcium Lvl (test code = Calcium Lvl) 9.4 8.5-10.5 [facility]2014-03-09 11:31:57 Test Item Value Reference Range Interpretation Comments Chloride Lvl (test code = Chloride Lvl) 108 95-109 [facility]2014-03-09 11:31:57 Test Item Value Reference Range Interpretation Comments CO2 (test code = CO2) 23 24-32 [facility]2014-03-09 11:31:57 Test Item Value Reference Range Interpretation Comments AGAP (test code = AGAP) 17.2 10.0-20.0 [facility]2014-03-09 11:31:57 Test Item Value Reference Range Interpretation Comments Sodium Lvl (test code = Sodium Lvl) 144 135-145 [facility]2014-03-09 11:31:57 Test Item Value Reference Range Interpretation Comments Potassium Lvl (test code = Potassium 4.2 3.5-5.1 Lvl) [facility]2014-03-09 11:31:57 Test Item Value Reference Range Interpretation Comments Glucose Lvl (test code = Glucose Lvl) 139 70-99 [facility]2014-03-09 11:31:57 Test Item Value Reference Range Interpretation Comments BUN (test code = BUN) 10 7-22 [facility]2014-03-09 11:31:57 Test Item Value Reference Range Interpretation Comments Creatinine Lvl (test code = Creatinine 0.7 0.5-1.4 Lvl) [facility]2014-03-09 11:31:57 Test Item Value Reference Range Interpretation Comments Magnesium Lvl (test code = Magnesium 1.9 1.8-2.4 Lvl) [facility]2014-03-09 11:31:57 Test Item Value Reference Range Interpretation Comments eGFR (test code = eGFR) 104 [facility]2014-03-09 11:31:57 Test Item Value Reference Range Interpretation Comments Calcium Lvl (test code = Calcium Lvl) 9.4 8.5-10.5 [facility]2014-03-09 11:31:57 Test Item Value Reference Range Interpretation Comments Chloride Lvl (test code = Chloride Lvl) 108 95-109 [facility]2014-03-09 11:31:57 Test Item Value Reference Range Interpretation Comments CO2 (test code = CO2) 23 24-32 [facility]2014-03-09 11:31:57 Test Item Value Reference Range Interpretation Comments AGAP (test code = AGAP) 17.2 10.0-20.0 [facility]2014-03-09 11:31:57 Test Item Value Reference Range Interpretation Comments Sodium Lvl (test code = Sodium Lvl) 144 135-145 [facility]2014-03-09 11:31:57 Test Item Value Reference Range Interpretation Comments Potassium Lvl (test code = Potassium 4.2 3.5-5.1 Lvl) [facility]2014-03-09 11:31:57 Test Item Value Reference Range Interpretation Comments Glucose Lvl (test code = Glucose Lvl) 139 70-99 [facility]2014-03-09 11:31:57 Test Item Value Reference Range Interpretation Comments BUN (test code = BUN) 10 7-22 [facility]2014-03-09 11:31:57 Test Item Value Reference Range Interpretation Comments Creatinine Lvl (test code = Creatinine 0.7 0.5-1.4 Lvl) [facility]2014-03-09 11:31:57 Test Item Value Reference Range Interpretation Comments Magnesium Lvl (test code = Magnesium 1.9 1.8-2.4 Lvl) [facility]2014-03-08 09:24:00 Test Item Value Reference Range Interpretation Comments Phosphorus (test code = Phosphorus) 4.1 2.5-4.5 [facility]2014-03-08 09:24:00 Test Item Value Reference Range Interpretation Comments Magnesium Lvl (test code = Magnesium 1.9 1.8-2.4 Lvl) [id number] 09:24:00 Test Item Value Reference Range Interpretation Comments AGAP (test code = AGAP) 14.7 10.0-20.0 [facility] HospitalZidlfvmCWLOIIXRVBER2792-45-13 09:24:00 Test Item Value Reference Range Interpretation Comments eGFR (test code = eGFR) 104 [facility] HospitalZhitpmrNRYPXGLYNZIT0041-03-62 09:24:00 Test Item Value Reference Range Interpretation Comments Chloride Lvl (test code = Chloride Lvl) 106 95-109 [facility] HospitalRwohiyuGUYRQSIINXVY0066-64-03 09:24:00 Test Item Value Reference Range Interpretation Comments CO2 (test code = CO2) 25 24-32 [facility] HospitalOxnbowkQJHWFCDVUNSV0569-97-55 09:24:00 Test Item Value Reference Range Interpretation Comments Potassium Lvl (test code = Potassium 3.7 3.5-5.1 Lvl) [facility] Hosp[id number] 09:24:00 Test Item Value Reference Range Interpretation Comments Sodium Lvl (test code = Sodium Lvl) 142 135-145 [facility] HospitalDiesnniIWYOCPTPUYXC2811-47-27 09:24:00 Test Item Value Reference Range Interpretation Comments Glucose Lvl (test code = Glucose Lvl) 142 70-99 [facility] HospitalLkykzvkMHLFEXTYHLXV1776-43-05 09:24:00 Test Item Value Reference Range Interpretation Comments Creatinine Lvl (test code = Creatinine 0.7 0.5-1.4 Lvl) [facility] HospitalXmsxtqcIWEOKYZZXFZY4212-09-78 09:24:00 Test Item Value Reference Range Interpretation Comments BUN (test code = BUN) 9 7-22 [facility]EfccxnwMWYRPGTAUC8242-67-63 09:24:00 Test Item Value Reference Range Interpretation Comments Lymphocytes # (test code = Lymphocytes 3.0 1.0-5.5 #) [facility] Hospit[id number] 09:24:00 Test Item Value Reference Range Interpretation Comments Eosinophils (test code = 2.7 See_Comment [A utomated message] The Eosinophils) system which ge nerated this result tra nsmitted reference range : <=4.0. The reference r celio was not used to int erpret this result as normal/abnormal . [facility] HospitalGnqblsdYDGNJWEAJP7950-48-95 09:24:00 Test Item Value Reference Range Interpretation Comments Basophils (test code = 0.5 See_Comment [Aut omated message] The Basophils) system which ge nerated this result tra nsmitted reference range : <=1.0. The reference r celio was not used to int erpret this result as normal/abnormal . [facility] HospitalOoyrvwgUBIZHBCGCE2668-46-89 09:24:00 Test Item Value Reference Range Interpretation Comments Eosinophils # (test code 0.2 See_Comment [A utomated message] The = Eosinophils #) system whic h generated this result tra nsmitted reference range : <=0.5. The reference r celio was not used to int erpret this result as normal/abnormal . [facility] HospitalPabjclaJVHBPRLYTM4511-36-01 09:24:00 Test Item Value Reference Range Interpretation Comments Monocytes # (test code 0.6 See_Comment [Aut omated message] The = Monocytes #) system which generated this result tra nsmitted reference range : <=0.8. The reference r celio was not used to int erpret this result as normal/abnormal . [facility] HospitalBjhufpbMLGEONXCEG3656-99-34 09:24:00 Test Item Value Reference Range Interpretation Comments Segs-Bands # (test code = Segs-Bands #) 4.1 1.5-8.1 [facility] HospitalZktjivqEKHBJHEMUN4041-84-97 09:24:00 Test Item Value Reference Range Interpretation Comments Lymphocytes (test code = Lymphocytes) 37.9 20.0-40.0 [facility] HospitalYsuuthiYLYBNPWWMD8769-30-10 09:24:00 Test Item Value Reference Range Interpretation Comments Monocytes (test code = Monocytes) 6.9 2.0-12.0 [facility] HospitalZzymmehXCVTVBKMSA9669-33-80 09:24:00 Test Item Value Reference Range Interpretation Comments Segs (test code = Segs) 52.0 45.0-75.0 [facility] HospitalGerkwudIMHMGCLEOV3812-17-03 09:24:00 Test Item Value Reference Range Interpretation Comments MPV (test code = MPV) 8.5 7.4-10.4 [facility] HospitalAcjytlzTCTZRNBWIY1770-77-55 09:24:00 Test Item Value Reference Range Interpretation Comments Platelet (test code = Platelet) 275 133-450 [facility] HospitalXtxtqryMXAUNEZAIN4158-20-76 09:24:00 Test Item Value Reference Range Interpretation Comments RBC X 10x6 (test code = RBC X 10x6) 4.93 4.20-5.40 [facility] HospitalAezdtosSJKLRRENJE9893-10-18 09:24:00 Test Item Value Reference Range Interpretation Comments WBC X 10x3 (test code = WBC X 10x3) 8.0 3.7-10.4 [facility] HospitalXsuglxpPPMWRMGZNM7064-55-35 09:24:00 Test Item Value Reference Range Interpretation Comments MCV (test code = MCV) 88.7 81.0-99.0 [facility] HospitalCytbdqpEZPUNKRPOB9338-08-47 09:24:00 Test Item Value Reference Range Interpretation Comments Hgb (test code = Hgb) 15.0 12.0-16.0 [facility] HospitalTkkmnlnUYXQGCEPZJ9174-10-62 09:24:00 Test Item Value Reference Range Interpretation Comments Hct (test code = Hct) 43.7 36.0-48.0 [facility] HospitalBdaasgxBSGXEBLZTZ0875-92-42 09:24:00 Test Item Value Reference Range Interpretation Comments MCH (test code = MCH) 30.4 pg 27.0-31.0 [facility] HospitalGxofuusNWHRUFESMS6045-93-59 09:24:00 Test Item Value Reference Range Interpretation Comments MCHC (test code = MCHC) 34.3 32.0-36.0 [facility] HospitalQmlaiyyFZAUVIVJJY0279-60-67 09:24:00 Test Item Value Reference Range Interpretation Comments RDW (test code = RDW) 14.0 11.5-14.5 [facility] [id number] 09:24:00 Test Item Value Reference Range Interpretation Comments Phosphorus (test code = Phosphorus) 4.1 2.5-4.5 [facility]2014-03-08 09:24:00 Test Item Value Reference Range Interpretation Comments Magnesium Lvl (test code = Magnesium 1.9 1.8-2.4 Lvl) [facility] HospitalLlencjhQZBDJRZGGFNO5948-76-96 09:24:00 Test Item Value Reference Range Interpretation Comments AGAP (test code = AGAP) 14.7 10.0-20.0 [facility] HospitalAvaxkemXNHMVSOWXPID4158-29-15 09:24:00 Test Item Value Reference Range Interpretation Comments eGFR (test code = eGFR) 104 [facility] HospitalGyfdmnqTTIQKSYMJWQF4336-87-24 09:24:00 Test Item Value Reference Range Interpretation Comments Chloride Lvl (test code = Chloride Lvl) 106 95-109 [facility] HospitalFbkqviqQLMUTPONDILI7342-14-00 09:24:00 Test Item Value Reference Range Interpretation Comments CO2 (test code = CO2) 25 24-32 [facility] HospitalYdwpmkxEVTXHFHCAOIC2210-41-57 09:24:00 Test Item Value Reference Range Interpretation Comments Potassium Lvl (test code = Potassium 3.7 3.5-5.1 Lvl) [facility] HospitalUpnkbghTNCWQPHPCLWO7003-21-29 09:24:00 Test Item Value Reference Range Interpretation Comments Sodium Lvl (test code = Sodium Lvl) 142 135-145 [facility] HospitalSzskssbTWCWTBBFYWHL0999-58-49 09:24:00 Test Item Value Reference Range Interpretation Comments Glucose Lvl (test code = Glucose Lvl) 142 70-99 [facility] HospitalPcdqulhBYHJEPPMHXGV1446-30-01 09:24:00 Test Item Value Reference Range Interpretation Comments Creatinine Lvl (test code = Creatinine 0.7 0.5-1.4 Lvl) [facility] HospitalFkuuxsxMNGTNTUZLSUF0087-13-92 09:24:00 Test Item Value Reference Range Interpretation Comments BUN (test code = BUN) 9 7-22 [facility] HospitalVrigdqqGTHGBCISMS8479-71-49 09:24:00 Test Item Value Reference Range Interpretation Comments Lymphocytes # (test code = Lymphocytes 3.0 1.0-5.5 #) [facility] HospitalImmjpwjIHHGKLYGOH8058-54-20 09:24:00 Test Item Value Reference Range Interpretation Comments Eosinophils (test code = 2.7 See_Comment [A utomated message] The Eosinophils) system which ge nerated this result tra nsmitted reference range : <=4.0. The reference r celio was not used to int erpret this result as normal/abnormal . [facility] HospitalWrdiglwRUJNDECXFZ5904-88-67 09:24:00 Test Item Value Reference Range Interpretation Comments Basophils (test code = 0.5 See_Comment [Aut omated message] The Basophils) system which ge nerated this result tra nsmitted reference range : <=1.0. The reference r celio was not used to int erpret this result as normal/abnormal . [facility] HospitalXryhdahHJYENCHCJC8895-27-43 09:24:00 Test Item Value Reference Range Interpretation Comments Eosinophils # (test code 0.2 See_Comment [A utomated message] The = Eosinophils #) system whic h generated this result tra nsmitted reference range : <=0.5. The reference r celio was not used to int erpret this result as normal/abnormal . [facility] HospitalXrhwxfdRTQLVYBZND4147-16-22 09:24:00 Test Item Value Reference Range Interpretation Comments Monocytes # (test code 0.6 See_Comment [Aut omated message] The = Monocytes #) system which generated this result tra nsmitted reference range : <=0.8. The reference r celio was not used to int erpret this result as normal/abnormal . [facility] HospitalVlwwqekESOGCGBVSJ2008-89-00 09:24:00 Test Item Value Reference Range Interpretation Comments Segs-Bands # (test code = Segs-Bands #) 4.1 1.5-8.1 [facility] HospitalRsixjpnJSFRGFPLRA8481-08-34 09:24:00 Test Item Value Reference Range Interpretation Comments Lymphocytes (test code = Lymphocytes) 37.9 20.0-40.0 [facility] HospitalChbwzriKPRQYNDROA3088-43-77 09:24:00 Test Item Value Reference Range Interpretation Comments Monocytes (test code = Monocytes) 6.9 2.0-12.0 [facility] HospitalHlggizcYLKKBAZAAH0990-05-60 09:24:00 Test Item Value Reference Range Interpretation Comments Segs (test code = Segs) 52.0 45.0-75.0 [facility] HospitalPmfpnieDOXYXKLVBE1980-04-84 09:24:00 Test Item Value Reference Range Interpretation Comments MPV (test code = MPV) 8.5 7.4-10.4 [facility] HospitalWsdycqrXJBNWWMDGI9463-79-73 09:24:00 Test Item Value Reference Range Interpretation Comments Platelet (test code = Platelet) 275 133-450 [facility] HospitalLwevptvIVHHDNHPBL4158-75-75 09:24:00 Test Item Value Reference Range Interpretation Comments RBC X 10x6 (test code = RBC X 10x6) 4.93 4.20-5.40 [facility] HospitalLeqcovlFPFNUCUXGU1031-84-80 09:24:00 Test Item Value Reference Range Interpretation Comments WBC X 10x3 (test code = WBC X 10x3) 8.0 3.7-10.4 [facility] HospitalGyvgcyoUQICKIJVEV8224-09-28 09:24:00 Test Item Value Reference Range Interpretation Comments MCV (test code = MCV) 88.7 81.0-99.0 [facility] HospitalUbcpnblYMFFJFROBX4758-75-04 09:24:00 Test Item Value Reference Range Interpretation Comments Hgb (test code = Hgb) 15.0 12.0-16.0 [facility] HospitalHunceuhWMLZMBBYXH1966 09:24:00 Test Item Value Reference Range Interpretation Comments Hct (test code = Hct) 43.7 36.0-48.0 [facility] HospitalCfwybzlKUOEDYVTJN3692-22-16 09:24:00 Test Item Value Reference Range Interpretation Comments MCH (test code = MCH) 30.4 pg 27.0-31.0 [facility] HospitalLiudspqAIKCJEQORE3784-09-97 09:24:00 Test Item Value Reference Range Interpretation Comments MCHC (test code = MCHC) 34.3 32.0-36.0 [facility] HospitalRakjnlnLCITBZTGAZ4710-10-08 09:24:00 Test Item Value Reference Range Interpretation Comments RDW (test code = RDW) 14.0 11.5-14.5 [facility]2014-03-07 07:23:00 Test Item Value Reference Range Interpretation Comments Globulin (test code = Globulin) 3.2 2.0-4.0 [facility]2014-03-07 07:23:00 Test Item Value Reference Range Interpretation Comments A/G Ratio (test code = A/G Ratio) 1.2 0.7-1.6 [facility]2014-03-07 07:23:00 Test Item Value Reference Range Interpretation Comments Alk Phos (test code = Alk Phos) 112 39-136 [facility]2014-03-07 07:23:00 Test Item Value Reference Range Interpretation Comments Albumin Lvl (test code = Albumin Lvl) 3.9 3.5-5.0 [facility]2014-03-07 07:23:00 Test Item Value Reference Range Interpretation Comments ALANINE AMINOTRANSFERASE 184 See_Comment [A utomated message] (test code = ALANINE The sys tem which AMINOTRANSFERASE) generated this result transmitted ref erence range: <=65. Th e reference range was not used to int erpret this result as normal/abnormal . [facility]2014-03-07 07:23:00 Test Item Value Reference Range Interpretation Comments Total Protein (test code = Total 7.1 6.4-8.4 Protein) [facility]2014-03-07 07:23:00 Test Item Value Reference Range Interpretation Comments ASPARTATE TRANSAMINASE 76 See_Comment [Aut omated message] (test code = ASPARTATE The s ystem which TRANSAMINASE) generated this result transmitted ref erence range: <=37. Th e reference range was not used to interpr et this result as normal/abnormal . [facility]2014-03-07 07:23:00 Test Item Value Reference Range Interpretation Comments Bili Total (test code = Bili Total) 0.3 0.2-1.3 [place] [id number] 07:23:00 Test Item Value Reference Range Interpretation Comments Bili Indirect (test 0.2 See_Comment [Automa blayne message] The code = Bili Indirect) system which generated this result tra nsmitted reference range : <=1.0. The reference r celio was not used to int erpret this result as normal/abnormal . [place] [address]-03-07 07:23:00 Test Item Value Reference Range Interpretation Comments Bili Direct (test code 0.1 See_Comment [Aut omated message] The = Bili Direct) system which generated this result tra nsmitted reference range : <=0.3. The reference r celio was not used to int erpret this result as dequan l/abnormal. [facility]2014-03-07 07:23:00 Test Item Value Reference Range Interpretation Comments Phosphorus (test code = Phosphorus) 4.6 2.5-4.5 [place] [address]-03-07 07:23:00 Test Item Value Reference Range Interpretation Comments Eosinophils (test code = 1.7 See_Comment [A utomated message] The Eosinophils) system which ge nerated this result tra nsmitted reference range : <=4.0. The reference r celio was not used to int erpret this result as normal/abnormal . [facility] HospitalYhynpzeXYKEFQEEYD2279-48-81 07:23:00 Test Item Value Reference Range Interpretation Comments Basophils (test code = 0.7 See_Comment [Aut omated message] The Basophils) system which ge nerated this result tra nsmitted reference range : <=1.0. The reference r celio was not used to int erpret this result as normal/abnormal . [facility] HospitalRypyipwELOURFZZWW9495-31-16 07:23:00 Test Item Value Reference Range Interpretation Comments Lymphocytes # (test code = Lymphocytes 3.2 1.0-5.5 #) [facility] HospitalKmtrdufXUEYPDKHCC9240-52-12 07:23:00 Test Item Value Reference Range Interpretation Comments Monocytes # (test code 0.6 See_Comment [Aut omated message] The = Monocytes #) system which generated this result tra nsmitted reference range : <=0.8. The reference r celio was not used to int erpret this result as normal/abnormal . [place] [id number] 07:23:00 Test Item Value Reference Range Interpretation Comments Eosinophils # (test code 0.1 See_Comment [A utomated message] The = Eosinophils #) system whic h generated this result tra nsmitted reference range : <=0.5. The reference r celio was not used to int erpret this result as normal/abnormal . [facility]IlanvnuXXGUQVOADQ7803-51-57 07:23:00 Test Item Value Reference Range Interpretation Comments Basophils # (test code 0.1 See_Comment [Aut omated message] The = Basophils #) system which generated this result tra nsmitted reference range : <=0.2. The reference r celio was not used to int erpret this result as normal/abnormal . [facility] HospitalMfjgkggACQXVQXQEQ1286-33-26 07:23:00 Test Item Value Reference Range Interpretation Comments Segs-Bands # (test code = Segs-Bands #) 4.2 1.5-8.1 [facility] HospitalStsqeheBGMDHLQAIL7946-41-00 07:23:00 Test Item Value Reference Range Interpretation Comments Lymphocytes (test code = Lymphocytes) 39.4 20.0-40.0 [facility] HospitalOudisvbYAACZVNHLU8946-37-77 07:23:00 Test Item Value Reference Range Interpretation Comments Monocytes (test code = Monocytes) 6.9 2.0-12.0 [facility] HospitalAizsrklTNJUCNLJAQ5399-80-12 07:23:00 Test Item Value Reference Range Interpretation Comments Segs (test code = Segs) 51.3 45.0-75.0 [facility] HospitalFkzubquGZWGYCOLEH1525-12-26 07:23:00 Test Item Value Reference Range Interpretation Comments MCV (test code = MCV) 88.1 81.0-99.0 [facility] HospitalDwuuwprUJRKUEJTJI4194-99-93 07:23:00 Test Item Value Reference Range Interpretation Comments MCH (test code = MCH) 30.2 pg 27.0-31.0 [facility] HospitalObodqgtBIGNJMSOUA5855-87-01 07:23:00 Test Item Value Reference Range Interpretation Comments MCHC (test code = MCHC) 34.3 32.0-36.0 [facility] HospitalPqjouvaFWPOYSVMPX4857-73-72 07:23:00 Test Item Value Reference Range Interpretation Comments RDW (test code = RDW) 13.7 11.5-14.5 [facility] HospitalMjcrnsnWTTEYVDAAC8432-94-17 07:23:00 Test Item Value Reference Range Interpretation Comments Platelet (test code = Platelet) 303 133-450 [facility] HospitalZfhpovrDMMVSTESRH6671-82-77 07:23:00 Test Item Value Reference Range Interpretation Comments MPV (test code = MPV) 8.6 7.4-10.4 [facility] HospitalAzuhobyYMAQLQWKLU0233-75-28 07:23:00 Test Item Value Reference Range Interpretation Comments WBC X 10x3 (test code = WBC X 10x3) 8.2 3.7-10.4 [facility] HospitalYrspfnpYLIIICJABU6139-80-04 07:23:00 Test Item Value Reference Range Interpretation Comments RBC X 10x6 (test code = RBC X 10x6) 4.79 4.20-5.40 [facility] HospitalYaslkqqZEJUBGPMTG7259-79-10 07:23:00 Test Item Value Reference Range Interpretation Comments Hgb (test code = Hgb) 14.5 12.0-16.0 [facility] HospitalRexfnvtGPAOJRVTPL7671-87-68 07:23:00 Test Item Value Reference Range Interpretation Comments Hct (test code = Hct) 42.2 36.0-48.0 [facility] HospitalUqqhalaKADMYLYNTR4681-13-95 07:23:00 Test Item Value Reference Range Interpretation Comments INR (test code = INR) 1.04 0.85-1.17 [facility] HospitalQehlufqAIAOHMYWSK2805-01-22 07:23:00 Test Item Value Reference Range Interpretation Comments aPTT (test code = aPTT) 30.3 s 22.9-35.8 [facility] HospitalPhluimkMSUCTMRJOP7144-67-47 07:23:00 Test Item Value Reference Range Interpretation Comments PROTIME (test code = PROTIME) 13.5 s 12.0-14.7 [facility] CampusIrjnkmhDXDIVWBTBV1014-51-18 07:23:00 Test Item Value Reference Range Interpretation Comments Hep B Core IgM (test Negative *NA*(11/27/2013 code = Hep B Core 01:23:00 IgM) [facility]) [facility] CampusTbkpqwmBWOFLBCJGK4981-07-56 07:23:00 Test Item Value Reference Range Interpretation Comments Hep C Ab (test code = Negative *NA*(11/27/2013 Hep C Ab) 01:23:00 [facility]) [facility] CampusKdmfeqjGLEITFUUPD0751-83-67 07:23:00 Test Item Value Reference Range Interpretation Comments Hep A IgM (test code Negative *NA*(11/27/2013 = Hep A IgM) 01:23:00 [facility] CenterMjbooxuTOBHMPQTLP6478-86-39 07:23:00 Test Item Value Reference Range Interpretation Comments Hep Bs Ag (test code Negative *NA*(11/27/2013 = Hep Bs Ag) 01:23:00 [facility] CenterLyefugkWQFPON4435-78-98 07:23:00 Test Item Value Reference Range Interpretation Comments VLDL (test code = VLDL) 27 [facility] CenterIdbofcmXKUBPM8815-50-45 07:23:00 Test Item Value Reference Range Interpretation Comments LDL (Calculated) (test code = LDL 127 (Calculated)) [facility]WenhcdsRWBROH2197-42-40 07:23:00 Test Item Value Reference Range Interpretation Comments HDL (test code = HDL) 50 [facility] CenterZtorkhiVIOVZP3370-49-86 07:23:00 Test Item Value Reference Range Interpretation Comments Trig (test code = Trig) 134 [facility] CenterXoexuujHWWYXX2440-95-49 07:23:00 Test Item Value Reference Range Interpretation Comments Chol (test code = Chol) 204 [facility] CenterPkrzivmPHYDYS8949-88-35 07:23:00 Test Item Value Reference Range Interpretation Comments CHD Risk (test code = CHD Risk) 4.08 3.90-5.80 [facility] [place] [id number] 07:23:00 Test Item Value Reference Range Interpretation Comments Globulin (test code = Globulin) 3.2 2.0-4.0 [facility] [place] [id number] 07:23:00 Test Item Value Reference Range Interpretation Comments A/G Ratio (test code = A/G Ratio) 1.2 0.7-1.6 [facility] CenterLoc[facility] [id number] 07:23:00 Test Item Value Reference Range Interpretation Comments Alk Phos (test code = Alk Phos) 112 39-136 [facility] ZYJDH1093-51-89 07:23:00 Test Item Value Reference Range Interpretation Comments Albumin Lvl (test code = Albumin Lvl) 3.9 3.5-5.0 [facility] [id number] 07:23:00 Test Item Value Reference Range Interpretation Comments ALANINE AMINOTRANSFERASE 184 See_Comment [A utomated message] (test code = ALANINE The sys tem which AMINOTRANSFERASE) generated this result transmitted ref erence range: <=65. Th e reference range was not used to int erpret this result as normal/abnormal . [facility]2014-03-07 07:23:00 Test Item Value Reference Range Interpretation Comments Total Protein (test code = Total 7.1 6.4-8.4 Protein) [facility]2014-03-07 07:23:00 Test Item Value Reference Range Interpretation Comments ASPARTATE TRANSAMINASE 76 See_Comment [Aut omated message] (test code = ASPARTATE The s ystem which TRANSAMINASE) generated this result transmitted ref erence range: <=37. Th e reference range was not used to interpr et this result as normal/abnormal . [facility]2014-03-07 07:23:00 Test Item Value Reference Range Interpretation Comments Bili Total (test code = Bili Total) 0.3 0.2-1.3 [facility]2014-03-07 07:23:00 Test Item Value Reference Range Interpretation Comments Bili Indirect (test 0.2 See_Comment [Automa blayne message] The code = Bili Indirect) system which generated this result tra nsmitted reference range : <=1.0. The reference r celio was not used to int erpret this result as normal/abnormal . [facility]2014-03-07 07:23:00 Test Item Value Reference Range Interpretation Comments Bili Direct (test code 0.1 See_Comment [Aut omated message] The = Bili Direct) system which generated this result tra nsmitted reference range : <=0.3. The reference r celio was not used to int erpret this result as dequan l/abnormal. [facility]2014-03-07 07:23:00 Test Item Value Reference Range Interpretation Comments Phosphorus (test code = Phosphorus) 4.6 2.5-4.5 [facility] HospitalVqzxyqpRARDSCOUQX5210-68-57 07:23:00 Test Item Value Reference Range Interpretation Comments Eosinophils (test code = 1.7 See_Comment [A utomated message] The Eosinophils) system which ge nerated this result tra nsmitted reference range : <=4.0. The reference r celio was not used to int erpret this result as normal/abnormal . [facility] HospitalGiqftotUJQVLDPZAO2908-86-39 07:23:00 Test Item Value Reference Range Interpretation Comments Basophils (test code = 0.7 See_Comment [Aut omated message] The Basophils) system which ge nerated this result tra nsmitted reference range : <=1.0. The reference r celio was not used to int erpret this result as normal/abnormal . [facility] HospitalVupfjiaAPZQIFPJZD1851-16-83 07:23:00 Test Item Value Reference Range Interpretation Comments Lymphocytes # (test code = Lymphocytes 3.2 1.0-5.5 #) [facility] HospitalAacuhfvUEYYOOEKJV7587-69-30 07:23:00 Test Item Value Reference Range Interpretation Comments Monocytes # (test code 0.6 See_Comment [Aut omated message] The = Monocytes #) system which generated this result tra nsmitted reference range : <=0.8. The reference r celio was not used to int erpret this result as normal/abnormal . [facility] HospitalZkhbewuVGBBAUVYUU9902-46-65 07:23:00 Test Item Value Reference Range Interpretation Comments Eosinophils # (test code 0.1 See_Comment [A utomated message] The = Eosinophils #) system whic h generated this result tra nsmitted reference range : <=0.5. The reference r celio was not used to int erpret this result as normal/abnormal . [facility] HospitalBibccgzYRIYUIAAQV8972-47-55 07:23:00 Test Item Value Reference Range Interpretation Comments Basophils # (test code 0.1 See_Comment [Aut omated message] The = Basophils #) system which generated this result tra nsmitted reference range : <=0.2. The reference r celio was not used to int erpret this result as normal/abnormal . [facility] HospitalGjiywrrBVHTFCSRUB0703-23-42 07:23:00 Test Item Value Reference Range Interpretation Comments Segs-Bands # (test code = Segs-Bands #) 4.2 1.5-8.1 [facility] HospitalSntmyfnUOOMELSICN2768-35-63 07:23:00 Test Item Value Reference Range Interpretation Comments Lymphocytes (test code = Lymphocytes) 39.4 20.0-40.0 [facility] HospitalUbnclbqTNGUMGLAPJ6173-00-18 07:23:00 Test Item Value Reference Range Interpretation Comments Monocytes (test code = Monocytes) 6.9 2.0-12.0 [facility] HospitalMuwnnraZINOMNHQLZ2099-81-33 07:23:00 Test Item Value Reference Range Interpretation Comments Segs (test code = Segs) 51.3 45.0-75.0 [facility] HospitalVfdsuyaAKGFZOWROK0576-68-41 07:23:00 Test Item Value Reference Range Interpretation Comments MCV (test code = MCV) 88.1 81.0-99.0 [facility] HospitalIyxpawlVBXCWGFDXA0847-02-70 07:23:00 Test Item Value Reference Range Interpretation Comments MCH (test code = MCH) 30.2 pg 27.0-31.0 [facility] HospitalPtesqeiILIEESXDXW9904-02-95 07:23:00 Test Item Value Reference Range Interpretation Comments MCHC (test code = MCHC) 34.3 32.0-36.0 [facility] HospitalTflokaiTSJSANQTKC5228-16-03 07:23:00 Test Item Value Reference Range Interpretation Comments RDW (test code = RDW) 13.7 11.5-14.5 [facility] HospitalEbbwnzrJBKNAGSHOK0149-29-49 07:23:00 Test Item Value Reference Range Interpretation Comments Platelet (test code = Platelet) 303 133-450 [facility] HospitalCaudydiCGLNSXKLHG1660-70-64 07:23:00 Test Item Value Reference Range Interpretation Comments MPV (test code = MPV) 8.6 7.4-10.4 [facility] HospitalKqqumseDYSBMMWMIE3922-30-65 07:23:00 Test Item Value Reference Range Interpretation Comments WBC X 10x3 (test code = WBC X 10x3) 8.2 3.7-10.4 [facility] HospitalJogapciLVROIDJOGW2170-19-27 07:23:00 Test Item Value Reference Range Interpretation Comments RBC X 10x6 (test code = RBC X 10x6) 4.79 4.20-5.40 [facility] HospitalPbgaxdyWPVXAZXXZN5438-53-96 07:23:00 Test Item Value Reference Range Interpretation Comments Hgb (test code = Hgb) 14.5 12.0-16.0 [facility] HospitalHxqelycPCQGBKFCKL0470-94-30 07:23:00 Test Item Value Reference Range Interpretation Comments Hct (test code = Hct) 42.2 36.0-48.0 [facility] HospitalCmnnulnQBCAXQPESM6036-40-66 07:23:00 Test Item Value Reference Range Interpretation Comments INR (test code = INR) 1.04 0.85-1.17 [facility] HospitalJybtdkyLWXTPFNLEA4178-09-65 07:23:00 Test Item Value Reference Range Interpretation Comments aPTT (test code = aPTT) 30.3 s 22.9-35.8 [facility] CenterJxavplvXCZHQXCJER0038-04-65 07:23:00 Test Item Value Reference Range Interpretation Comments PROTIME (test code = PROTIME) 13.5 s 12.0-14.7 [facility] IdezceqEXZXGQITSO0078-24-46 07:23:00 Test Item Value Reference Range Interpretation Comments Hep B Core IgM (test Negative *NA*(11/27/2013 code = Hep B Core 01:23:00 IgM) [facility]) [facility] CenterBwwvsdyFWBSTIREKG0201-64-69 07:23:00 Test Item Value Reference Range Interpretation Comments Hep C Ab (test code = Negative *NA*(11/27/2013 Hep C Ab) 01:23:00 [facility]) [facility] CenterIaisetnJLEZCXLLXV5507-91-13 07:23:00 Test Item Value Reference Range Interpretation Comments Hep A IgM (test code Negative *NA*(11/27/2013 = Hep A IgM) 01:23:00 [facility]) [facility] CenterYiliuytSRDQBDNKYT0393-58-62 07:23:00 Test Item Value Reference Range Interpretation Comments Hep Bs Ag (test code Negative *NA*(11/27/2013 = Hep Bs Ag) 01:23:00 [facility]) [facility] HjvcwquVKZLDA5024-15-72 07:23:00 Test Item Value Reference Range Interpretation Comments VLDL (test code = VLDL) 27 [facility] CenterJytmukjVNUNZW3051-39-17 07:23:00 Test Item Value Reference Range Interpretation Comments LDL (Calculated) (test code = LDL 127 (Calculated)) [facility] FxwubeeWPBNHT3869-57-88 07:23:00 Test Item Value Reference Range Interpretation Comments HDL (test code = HDL) 50 [facility] TwuzlsjPNMCEO4024-06-72 07:23:00 Test Item Value Reference Range Interpretation Comments Trig (test code = Trig) 134 [facility] UjudwlrACISTP8261-36-16 07:23:00 Test Item Value Reference Range Interpretation Comments Chol (test code = Chol) 204 [facility] CenterZyscxgeRMRPFB3895-64-17 07:23:00 Test Item Value Reference Range Interpretation Comments CHD Risk (test code = CHD Risk) 4.08 3.90-5.80 [facility] CenterannCHEM SVPJO2155-01-09 17:00:00 Test Item Value Reference Range Interpretation Comments ALANINE AMINOTRANSFERASE 204 See_Comment [A utomated message] (test code = ALANINE The sys tem which AMINOTRANSFERASE) generated this result transmitted ref erence range: <=65. Th e reference range was not used to int erpret this result as normal/abnormal . [facility]2014-03-06 17:00:00 Test Item Value Reference Range Interpretation Comments ASPARTATE TRANSAMINASE 70 See_Comment [Aut omated message] (test code = ASPARTATE The s ystem which TRANSAMINASE) generated this result transmitted ref erence range: <=37. Th e reference range was not used to interpr et this result as normal/abnormal . [facility] CenterSlicebooksDUKE RALEIGH HOSPITALMPMBP8476-69-68 17:00:00 Test Item Value Reference Range Interpretation Comments Alk Phos (test code = Alk Phos) 109 39-136 [facility] CenterSlicebooksDUKE RALEIGH HOSPITALSWWYJ7804-73-30 17:00:00 Test Item Value Reference Range Interpretation Comments Albumin Lvl (test code = Albumin Lvl) 3.6 3.5-5.0 [facility] CenterSlicebooksDUKE RALEIGH HOSPITALNQNVY8632-34-27 17:00:00 Test Item Value Reference Range Interpretation Comments Bili Total (test code = Bili Total) 0.4 0.2-1.3 [facility]2014-03-06 17:00:00 Test Item Value Reference Range Interpretation Comments Bili Direct (test code 0.1 See_Comment [Aut omated message] The = Bili Direct) system which generated this result tra nsmitted reference range : <=0.3. The reference r celio was not used to int erpret this result as dequan l/abnormal. [facility] CenterSlicebooksDUKE RALEIGH HOSPITALZSILQ4552-03-34 17:00:00 Test Item Value Reference Range Interpretation Comments Total Protein (test code = Total 6.9 6.4-8.4 Protein) [facility]2014-03-06 17:00:00 Test Item Value Reference Range Interpretation Comments A/G Ratio (test code = A/G Ratio) 1.1 0.7-1.6 [facility] CenterSlicebooksROBERTA VILLE [address]153YPCOE8133-52-53 17:00:00 Test Item Value Reference Range Interpretation Comments Bili Indirect (test 0.3 See_Comment [Automa blayne message] The code = Bili Indirect) system which generated this result tra nsmitted reference range : <=1.0. The reference r celio was not used to int erpret this result as normal/abnormal . [facility]2014-03-06 17:00:00 Test Item Value Reference Range Interpretation Comments Globulin (test code = Globulin) 3.3 2.0-4.0 [facility]2014-03-06 17:00:00 Test Item Value Reference Range Interpretation Comments ALANINE AMINOTRANSFERASE 204 See_Comment [A utomated message] (test code = ALANINE The sys tem which AMINOTRANSFERASE) generated this result transmitted ref erence range: <=65. Th e reference range was not used to int erpret this result as normal/abnormal . [facility]2014-03-06 17:00:00 Test Item Value Reference Range Interpretation Comments Albumin Lvl (test code = Albumin Lvl) 3.6 3.5-5.0 [facility]2014-03-06 17:00:00 Test Item Value Reference Range Interpretation Comments Alk Phos (test code = Alk Phos) 109 39-136 [facility]2014-03-06 17:00:00 Test Item Value Reference Range Interpretation Comments Bili Total (test code = Bili Total) 0.4 0.2-1.3 [facility]2014-03-06 17:00:00 Test Item Value Reference Range Interpretation Comments ASPARTATE TRANSAMINASE 70 See_Comment [Aut omated message] (test code = ASPARTATE The s ystem which TRANSAMINASE) generated this result transmitted ref erence range: <=37. Th e reference range was not used to interpr et this result as normal/abnormal . [facility]2014-03-06 17:00:00 Test Item Value Reference Range Interpretation Comments Total Protein (test code = Total 6.9 6.4-8.4 Protein) [facility]2014-03-06 17:00:00 Test Item Value Reference Range Interpretation Comments B/C Ratio (test code = B/C Ratio) 13 6-25 [facility]2014-03-06 17:00:00 Test Item Value Reference Range Interpretation Comments Globulin (test code = Globulin) 3.3 2.0-4.0 [facility]2014-03-06 17:00:00 Test Item Value Reference Range Interpretation Comments A/G Ratio (test code = A/G Ratio) 1.1 0.7-1.6 [facility] [id number] 17:00:00 Test Item Value Reference Range Interpretation Comments UDS Note (test code = See Note UDS Note) 7*NA*(11/26/2013 11:00:00 [facility] [id number] 17:00:00 Test Item Value Reference Range Interpretation Comments U Opiate Scr (test Negative code = U Opiate Scr) *NA*(11/26/2013 11:00:00 [facility] [id number] 17:00:00 Test Item Value Reference Range Interpretation Comments U Phencyc Scr (test Negative code = U Phencyc Scr) *NA*(11/26/2013 11:00:00 [facility] [id number] 17:00:00 Test Item Value Reference Range Interpretation Comments U Cocaine Scr (test Negative code = U Cocaine Scr) *NA*(11/26/2013 11:00:00 [facility] [id number] 17:00:00 Test Item Value Reference Range Interpretation Comments U Cannab Scr (test Negative code = U Cannab Scr) *NA*(11/26/2013 11:00:00 [facility] [id number] 17:00:00 Test Item Value Reference Range Interpretation Comments U Benzodia Scr (test Negative code = U Benzodia Scr) *NA*(11/26/2013 11:00:00 [facility] [id number] 17:00:00 Test Item Value Reference Range Interpretation Comments U Toshia Scr (test code Negative *NA*(11/26/2013 = U Toshia Scr) 11:00:00 [facility] [id number] 17:00:00 Test Item Value Reference Range Interpretation Comments U Amph Scr (test code Negative *NA*(11/26/2013 = U Amph Scr) 11:00:00 [facility]annSPE[facility] [id number] 17:00:00 Test Item Value Reference Range Interpretation Comments Hgb A1C (test code = Hgb A1C) 10.4 [facility] [id number] 17:00:00 Test Item Value Reference Range Interpretation Comments UA Urobilinogen (test code = UA <=1.0 mg/dL 0.1-1.0 Urobilinogen) [facility] AND [id number] 17:00:00 Test Item Value Reference Range Interpretation Comments UA RBC (test code = 6 See_Comment [Automa blayne message] The UA RBC) system which ge nerated this result transmit blayne reference range : <=2. The reference range was not used to interpr et this result as dequan l/abnormal. [facility] AND [id number] 17:00:00 Test Item Value Reference Range Interpretation Comments UA Bacteria (test code = UA Occasional /HPF Bacteria) [facility] AND [id number] 17:00:00 Test Item Value Reference Range Interpretation Comments UA Ketones (test code = UA Negative mg/dL Ketones) [facility] AND [id number] 17:00:00 Test Item Value Reference Range Interpretation Comments UA Turbidity (test code = Clear (11/26/2013 UA Turbidity) 11:00:00 [facility]) [facility] AND [id number] 17:00:00 Test Item Value Reference Range Interpretation Comments UA Spec Grav (test code = UA Spec Grav) 1.017 [facility] AND [id number] 17:00:00 Test Item Value Reference Range Interpretation Comments UA pH (test code = UA pH) 7.5 5.0-8.0 [facility] AND [id number] 17:00:00 Test Item Value Reference Range Interpretation Comments UA Protein (test code = UA Negative mg/dL Protein) [facility] AND [id number] 17:00:00 Test Item Value Reference Range Interpretation Comments UA Glucose (test code = UA >=1000 mg/dL Glucose) [facility] AND [id number] 17:00:00 Test Item Value Reference Range Interpretation Comments UA Sq Epi (test code = UA Sq Occasional /LPF Epi) [facility] AND [id number] 17:00:00 Test Item Value Reference Range Interpretation Comments UA WBC (test code = 2 See_Comment [Automa blayne message] The UA WBC) system which ge nerated this result transmit blayne reference range : <=5. The reference range was not used to interpr et this result as dequan l/abnormal. [facility] AND [id number] 17:00:00 Test Item Value Reference Range Interpretation Comments UA Bili (test code = Negative *NA*(11/26/2013 UA Bili) 11:00:00 [facility]) [facility] AND [id number] 17:00:00 Test Item Value Reference Range Interpretation Comments UA Blood (test code = Trace *ABN*(11/26/2013 UA Blood) 11:00:00 [facility]) [facility] AND [id number] 17:00:00 Test Item Value Reference Range Interpretation Comments UA Nitrite (test code Negative (11/26/2013 = UA Nitrite) 11:00:00 [facility]) [facility] AND [id number] 17:00:00 Test Item Value Reference Range Interpretation Comments UA Leuk Est (test Negative (11/26/2013 code = UA Leuk Est) 11:00:00 [facility]) [facility] AND [id number] 17:00:00 Test Item Value Reference Range Interpretation Comments UA Color (test code = Light Yellow UA Color) *NA*(11/26/2013 11:00:00 [facility]) [facility]2014-03-06 17:00:00 Test Item Value Reference Range Interpretation Comments ALANINE AMINOTRANSFERASE 204 See_Comment [A utomated message] (test code = ALANINE The sys tem which AMINOTRANSFERASE) generated this result transmitted ref erence range: <=65. Th e reference range was not used to int erpret this result as normal/abnormal . [facility] [place] [id number] 17:00:00 Test Item Value Reference Range Interpretation Comments ASPARTATE TRANSAMINASE 70 See_Comment [Aut omated message] (test code = ASPARTATE The s ystem which TRANSAMINASE) generated this result transmitted ref erence range: <=37. Th e reference range was not used to interpr et this result as normal/abnormal . [id number] 17:00:00 Test Item Value Reference Range Interpretation Comments Alk Phos (test code = Alk Phos) 109 39-136 [facility] [id number] 17:00:00 Test Item Value Reference Range Interpretation Comments Albumin Lvl (test code = Albumin Lvl) 3.6 3.5-5.0 [facility]2014-03-06 17:00:00 Test Item Value Reference Range Interpretation Comments Bili Total (test code = Bili Total) 0.4 0.2-1.3 [facility]2014-03-06 17:00:00 Test Item Value Reference Range Interpretation Comments Bili Direct (test code 0.1 See_Comment [Aut omated message] The = Bili Direct) system which generated this result tra nsmitted reference range : <=0.3. The reference r celio was not used to int erpret this result as dequan l/abnormal. [facility]2014-03-06 17:00:00 Test Item Value Reference Range Interpretation Comments Total Protein (test code = Total 6.9 6.4-8.4 Protein) [facility]2014-03-06 17:00:00 Test Item Value Reference Range Interpretation Comments A/G Ratio (test code = A/G Ratio) 1.1 0.7-1.6 [place] [id number] 17:00:00 Test Item Value Reference Range Interpretation Comments Bili Indirect (test 0.3 See_Comment [Automa blayne message] The code = Bili Indirect) system which generated this result tra nsmitted reference range : <=1.0. The reference r celio was not used to int erpret this result as normal/abnormal . [facility]2014-03-06 17:00:00 Test Item Value Reference Range Interpretation Comments Globulin (test code = Globulin) 3.3 2.0-4.0 [place] [id number] 17:00:00 Test Item Value Reference Range Interpretation Comments ALANINE AMINOTRANSFERASE 204 See_Comment [A utomated message] (test code = ALANINE The sys tem which AMINOTRANSFERASE) generated this result transmitted ref erence range: <=65. Th e reference range was not used to int erpret this result as normal/abnormal . [place] [id number] 17:00:00 Test Item Value Reference Range Interpretation Comments Albumin Lvl (test code = Albumin Lvl) 3.6 3.5-5.0 [place] [id number] 17:00:00 Test Item Value Reference Range Interpretation Comments Alk Phos (test code = Alk Phos) 109 39-136 [facility] [place] [id number] 17:00:00 Test Item Value Reference Range Interpretation Comments Bili Total (test code = Bili Total) 0.4 0.2-1.3 [facility] [place] [id number] 17:00:00 Test Item Value Reference Range Interpretation Comments ASPARTATE TRANSAMINASE 70 See_Comment [Aut omated message] (test code = ASPARTATE The s ystem which TRANSAMINASE) generated this result transmitted ref erence range: <=37. Th e reference range was not used to interpr et this result as normal/abnormal . [employer] [id number] 17:00:00 Test Item Value Reference Range Interpretation Comments Total Protein (test code = Total 6.9 6.4-8.4 Protein) [facility] [place] [id number] 17:00:00 Test Item Value Reference Range Interpretation Comments B/C Ratio (test code = B/C Ratio) 13 6-25 [facility] [place] [id number] 17:00:00 Test Item Value Reference Range Interpretation Comments Globulin (test code = Globulin) 3.3 2.0-4.0 [facility] [place] [id number] 17:00:00 Test Item Value Reference Range Interpretation Comments A/G Ratio (test code = A/G Ratio) 1.1 0.7-1.6 [facility] [id number] 17:00:00 Test Item Value Reference Range Interpretation Comments UDS Note (test code = See Note UDS Note) 7*NA*(11/26/2013 11:00:00 [facility] [id number] 17:00:00 Test Item Value Reference Range Interpretation Comments U Opiate Scr (test Negative code = U Opiate Scr) *NA*(11/26/2013 11:00:00 [facility] [id number] 17:00:00 Test Item Value Reference Range Interpretation Comments U Phencyc Scr (test Negative code = U Phencyc Scr) *NA*(11/26/2013 11:00:00 [facility] [id number] 17:00:00 Test Item Value Reference Range Interpretation Comments U Cocaine Scr (test Negative code = U Cocaine Scr) *NA*(11/26/2013 11:00:00 [facility] [id number] 17:00:00 Test Item Value Reference Range Interpretation Comments U Cannab Scr (test Negative code = U Cannab Scr) *NA*(11/26/2013 11:00:00 [facility] [id number] 17:00:00 Test Item Value Reference Range Interpretation Comments U Benzodia Scr (test Negative code = U Benzodia Scr) *NA*(11/26/2013 11:00:00 [facility] [id number] 17:00:00 Test Item Value Reference Range Interpretation Comments U Toshia Scr (test code Negative *NA*(11/26/2013 = U Toshia Scr) 11:00:00 [facility] [id number] 17:00:00 Test Item Value Reference Range Interpretation Comments U Amph Scr (test code Negative *NA*(11/26/2013 = U Amph Scr) 11:00:00 [facility] [id number] 17:00:00 Test Item Value Reference Range Interpretation Comments Hgb A1C (test code = Hgb A1C) 10.4 [facility] [id number] 17:00:00 Test Item Value Reference Range Interpretation Comments UA Urobilinogen (test code = UA <=1.0 mg/dL 0.1-1.0 Urobilinogen) [facility] [id number] 17:00:00 Test Item Value Reference Range Interpretation Comments UA RBC (test code = 6 See_Comment [Automa blayne message] The UA RBC) system which ge nerated this result transmit blayne reference range : <=2. The reference range was not used to interpr et this result as dequan l/abnormal. [facility] [id number] 17:00:00 Test Item Value Reference Range Interpretation Comments UA Bacteria (test code = UA Occasional /HPF Bacteria) [facility] [id number] 17:00:00 Test Item Value Reference Range Interpretation Comments UA Ketones (test code = UA Negative mg/dL Ketones) [facility] AND [id number] 17:00:00 Test Item Value Reference Range Interpretation Comments UA Turbidity (test code = Clear (11/26/2013 UA Turbidity) 11:00:00 [facility] AND [id number] 17:00:00 Test Item Value Reference Range Interpretation Comments UA Spec Grav (test code = UA Spec Grav) 1.017 [facility] AND [id number] 17:00:00 Test Item Value Reference Range Interpretation Comments UA pH (test code = UA pH) 7.5 5.0-8.0 [facility] AND [id number] 17:00:00 Test Item Value Reference Range Interpretation Comments UA Protein (test code = UA Negative mg/dL Protein) [facility] AND [id number] 17:00:00 Test Item Value Reference Range Interpretation Comments UA Glucose (test code = UA >=1000 mg/dL Glucose) [facility] AND [id number] 17:00:00 Test Item Value Reference Range Interpretation Comments UA Sq Epi (test code = UA Sq Occasional /LPF Epi) [facility] AND [id number] 17:00:00 Test Item Value Reference Range Interpretation Comments UA WBC (test code = 2 See_Comment [Automa blayne message] The UA WBC) system which ge nerated this result transmit blayne reference range : <=5. The reference range was not used to interpr et this result as dequan l/abnormal. [facility] AND [id number] 17:00:00 Test Item Value Reference Range Interpretation Comments UA Bili (test code = Negative *NA*(11/26/2013 UA Bili) 11:00:00 [facility] AND [id number] 17:00:00 Test Item Value Reference Range Interpretation Comments UA Blood (test code = Trace *ABN*(11/26/2013 UA Blood) 11:00:00 [facility] AND [id number] 17:00:00 Test Item Value Reference Range Interpretation Comments UA Nitrite (test code Negative (11/26/2013 = UA Nitrite) 11:00:00 [facility] AND [id number] 17:00:00 Test Item Value Reference Range Interpretation Comments UA Leuk Est (test Negative (11/26/2013 code = UA Leuk Est) 11:00:00 [facility]2014-03-06 17:00:00 Test Item Value Reference Range Interpretation Comments UA Color (test code = Light Yellow UA Color) *NA*(11/26/2013 11:00:00 [facility]
[2022-06-09] MEDS ORDERED: DIPHENHYDRAMINE 50 MG/ML VIAL ONE (16:20)
[2022-06-09] MEDS ORDERED: FENTANYL CITR 100 MCG/2 ML ONE (16:21)
[2022-06-09] MEDS ORDERED: ONDANSETRON 4 MG/2 ML VIAL ONE (16:21)
[2022-06-09] MEDS ORDERED: FAMOTIDINE 20 MG/2 ML VIAL IV ONE (16:21)
[2022-06-09] MEDS ORDERED: NA CHLORIDE 0.9% 1,000 ML ONE (16:22)
--- NOTE | 2022-06-09 17:16 | RAD REPORT ---
EXAM DESCRIPTION: CT - Abdomen Pelvis Wo Contrast - 06/09/2022 5:04 pm CLINICAL HISTORY: Abdominal pain COMPARISON: 2013 TECHNIQUE: Computed axial tomography of the abdomen and pelvis was obtained. IV and oral contrast we re not requested. All CT scans are performed using dose optimization technique as appropriate and may include automated exposure control or mA/KV adjustment according to patient size. FINDINGS: The evaluation of solid organs, vessels and bowel is limited secondary to the lack of con trast administration. Cholecystectomy The liver, spleen, pancreas, adrenals and kidneys appear grossly normal. No adnexal mass Tubal ligation clips. There is no evidence of diverticulitis. Small umbilical hernia IMPRESSION: No acute abnormality is displayed.
[2022-06-09 17:29] LABS: Urine Blood Negative (Negative); Urine Glucose Negative (Negative); Urine Protein Negative (Negative)
[2022-06-09 17:30] LABS: Absolute Lymphocytes (CBC) 2.4 K/uL (0.7-4.9); Hematocrit 39.1 % (36.0-45.0); Lymphocytes % 27.7 % (15.3-44.8); MPV 7.9 fL (7.6-11.3)
[2022-06-09 17:45] LABS: Albumin 3.7 g/dL (3.4-5.0); Bilirubin Total 0.5 mg/dL (0.2-1.0); Potassium 3.3 mmol/L (3.5-5.1); Protein, Total 7.2 g/dL (6.4-8.2)
[2022-06-09 17:51] LABS: SARS-CoV-2 Antigen Rapid Res Negative (Negative)
--- NOTE | 2022-06-09 19:40 | ER ---
Nurse's Notes [facility] Name: Amparo Franco Age: 57 yrs Sex: Female : 1965 Arrival Date: 06/09/2022 Time: 15:59 Bed External Waiting Private MD: Diagnosis: Abdominal pain, unspecified Presentation: 06/09 16:00 Chief complaint: EMS states: "pt is reporting abdominal pain today in her upper jd3 abdomen. she reports some nausea when eating, but otherwise her biggest problem today is the pain. we started a 20 G IV and gave 4 mg of Zofran and 50 mcg of Fentanyl.". Coronavirus screen: At this time, the client does not indicate any symptoms associated with coronavirus-19. Ebola Screen: No symptoms or risks identified at this time. Initial Sepsis Screen: Does the patient meet any 2 criteria? No. Patient's initial sepsis screen is negative. Does the patient have a suspected source of infection? No. Patient's initial sepsis screen is negative. Risk Assessment: Do you want to hurt yourself or someone else? Patient reports no desire to harm self or others. Onset of symptoms was June 09, 2022. 16:00 Method Of Arrival: EMS: [facility] jd3 16:00 Acuity: HARPREET 3 jd3 Historical: - Allergies: 16:04 Advil; jd3 16:04 Cipro; jd3 16:04 IV contrast; jd3 16:04 Morphine; jd3 - Home Meds: 16:04 Baclofen Oral [Active]; Sucralfate Oral [Active]; Constulose oral [Active]; Lisinopril jd3 Oral [Active]; tramadol Oral [Active]; pantoprazole oral [Active]; Metoclopramide Oral [Active]; Baclofen Oral [Active]; gabapentin oral [Active]; topiramate oral [Active]; - PMHx: 16:04 Depression; Hyperlipidemia; Hypertension; Diabetes - NIDDM; CVA; jd3 - PSHx: 17:05 Cholecystectomy; em6 - Immunization history:: Adult Immunizations up to date, Client reports receiving the 2nd dose of the Covid vaccine. - Social history:: Smoking status: unknown. Screenin:20 Abuse screen: Denies threats or abuse. Nutritional screening: No deficits noted. em6 Tuberculosis screening: No symptoms or risk factors identified. Fall Risk IV access (20 points). Total Tellez Fall Scale indicates No Risk (0-24 pts). Assessment: 16:20 General: Appears comfortable, Behavior is cooperative. Pain: Complains of pain in em6 epigastric area Pain does not radiate. Pain currently is 10 out of 10 on a pain scale. Quality of pain is described as crampy, sharp, Pain began 2-3 days ago. Is episodic, lasting a few minutes. Neuro: Ford Agitation-Sedation Scale (RASS): 0 - Alert and Calm Level of Consciousness is awake, alert, obeys commands, Oriented to person, place, time, situation. Cardiovascular: Heart tones present Patient's skin is warm and dry. Respiratory: Airway is patent Respiratory effort is even, unlabored, Respiratory pattern is regular, symmetrical, Breath sounds are clear bilaterally. GI: Abdomen is non-distended, Abd is soft and non tender X 4 quads. Reports constipation. : Reports incontinence. EENT: No signs and/or symptoms were reported regarding the EENT system. Derm: No signs and/or symptoms reported regarding the dermatologic system. Musculoskeletal: Circulation, motion, and sensation intact. Range of motion: intact in all extremities. 17:20 Reassessment: No changes from previously documented assessment. Patient and/or family em6 updated on plan of care and expected duration. Pain level reassessed. 17:20 Reassessment: Patient states symptoms have improved. em6 17:20 Neuro: Ford Agitation-Sedation Scale (RASS): 0 - Alert and Calm Level of em6 Consciousness is awake, alert, obeys commands, Oriented to person, place, time, situation. 18:20 Reassessment: No changes from previously documented assessment. Patient and/or family em6 updated on plan of care and expected duration. Pain level reassessed. Patient states symptoms have improved. Neuro: Ford Agitation-Sedation Scale (RASS): 0 - Alert and Calm Level of Consciousness is awake, alert, obeys commands, Oriented to person, place, time, situation. Respiratory: Airway is patent Respiratory effort is even, unlabored, Respiratory pattern is regular, symmetrical. Vital Signs: 16:08 BP 130 / 76; Pulse 78; Resp 16 S; Temp 98.2(TE); Pulse Ox 100% on R/A; Weight 72.57 kg jd3 (R); Height 4 ft. 10 in. (147.32 cm) (R); Pain 10/10; 17:30 BP 120 / 64; Pulse 66; Resp 16; Pulse Ox 94% on R/A; em6 18:33 BP 107 / 74; Pulse 63; Resp 18; Pulse Ox 94% on R/A; em6 20:30 BP 112 / 78; Pulse 82; Resp 16; Pulse Ox 98% on R/A; kl 16:08 Body Mass Index 33.44 (72.57 kg, 147.32 cm) [facility] ED Course: 15:59 Patient arrived in ED. [facility] 16:02 Bharat Mcdonald PA is PHCP. [facility] 16:02 Dior Guevara MD is Attending Physician. [facility] 16:04 Triage completed. jd3 16:09 Arm band placed on. jd3 16:20 Patient has correct armband on for positive identification. Bed in low position. Call em6 light in reach. Side rails up X2. 16:20 Pulse ox on. NIBP on. Warm blanket given. em6 17:06 CT Abd/Pelvis - Without Contrast In Process Unspecified. EDMS 17:57 Nathan Garcia RN is Primary Nurse. [facility] 19:39 Bryant Loya MD is Referral Physician. [facility] 19:59 Primary Nurse role handed off by Nathan Garcia, RN mw2 20:30 No provider procedures requiring assistance completed. IV discontinued, intact, kl bleeding controlled, No redness/swelling at site. Pressure dressing applied. Administered Medications: 16:40 Drug: NS 0.9% 1000 ml Route: IV; Rate: 1 bolus; Site: left antecubital; em6 16:40 Drug: Zofran (Ondansetron) 4 mg Route: IVP; Site: left antecubital; em6 17:00 Follow up: Response: No adverse reaction em6 16:40 Drug: fentaNYL (PF) 50 mcg Route: IVP; Site: left antecubital; em6 17:20 Follow up: Response: No adverse reaction; RASS: Alert and Calm (0) em6 16:40 Drug: Pepcid (famotidine) 20 mg Route: IVP; Site: left antecubital; em6 17:20 Follow up: Response: No adverse reaction em6 16:40 Drug: diphenhydrAMINE 12.5 mg Route: IVP; Site: left antecubital; em6 17:20 Follow up: Response: No adverse reaction em6 20:34 Drug: fentaNYL Patch (50 mcg/hr) 1 patches Route: Transdermal; Site: anterior chest kl wall; Medication: 17:05 VIS not applicable for this client. em6 Outcome: 19:40 Discharge ordered by . sarai 20:30 Discharged to home via wheelchair, with family. yoly 20:30 Condition: improved 20:30 Discharge instructions given to patient, family, Instructed on discharge instructions, follow up and referral plans. medication usage, Demonstrated understanding of instructions, follow-up care, medications, Prescriptions given X 1. 18 02:09 Patient left the ED. Signatures: Dispatcher [employer] EDRahel Lopez RN RN kl Mickail, Joel, PA PA jmm Davies, Jonathon, RN RN jd3 [place], MyKena 2 Karly Godfrey RN RN em6 Corrections: (The following items were deleted from the chart) 06/09 17:29 16:20 GI: Abdomen is non-distended, Abd is soft and non tender X 4 quads. em6 em6
--- NOTE | 2022-06-09 19:40 | EDPHYS ---
Physician Documentation [facility] Name: Amparo Franco Age: 57 yrs Sex: Female : 1965 Arrival Date: 06/09/2022 Time: 15:59 Bed External Waiting Private MD: SHRADDHA Physician Dior Guevara HPI: 06/09 19:09 This 57 yrs old Female presents to ER via EMS with complaints of abdominal jmm pain. 19:09 The patient presents with abdominal pain. Onset: The symptoms/episode began/occurred jmm gradually. The symptoms do not radiate. Associated signs and symptoms: Pertinent negatives: fever. 19:36 The symptoms are described as achy. Modifying factors: The symptoms are alleviated by jmm nothing, the symptoms are aggravated by nothing. This is a 57-year-old female with history of CVA, hypertension, hyperlipidemia, diabetes mellitus the presents emerged part with complaints of diffuse abdominal pain which began after eating today. Pain is been ongoing since last week but intensified today. Denies vomiting or diarrhea. States having some constipation since patient did see GI outpatient and was prescribed lactulose with no relief.. Historical: - Allergies: 16:04 Advil; jd3 16:04 Cipro; jd3 16:04 IV contrast; jd3 16:04 Morphine; jd3 - Home Meds: 16:04 Baclofen Oral [Active]; Sucralfate Oral [Active]; Constulose oral [Active]; Lisinopril jd3 Oral [Active]; tramadol Oral [Active]; pantoprazole oral [Active]; Metoclopramide Oral [Active]; Baclofen Oral [Active]; gabapentin oral [Active]; topiramate oral [Active]; - PMHx: 16:04 Depression; Hyperlipidemia; Hypertension; Diabetes - NIDDM; CVA; jd3 - PSHx: 17:05 Cholecystectomy; em6 - Immunization history:: Adult Immunizations up to date, Client reports receiving the 2nd dose of the Covid vaccine. - Social history:: Smoking status: unknown. ROS: 19:36 Constitutional: Negative for fever, chills, and weight loss, Cardiovascular: Negative jmm for chest pain, palpitations, and edema, Respiratory: Negative for shortness of breath, cough, wheezing, and pleuritic chest pain. 19:36 Abdomen/GI: Positive for abdominal pain. 19:36 All other systems are negative. Exam: 19:36 Constitutional: This is a well developed, well nourished patient who is awake, alert, jmm and in no acute distress. Head/Face: atraumatic. Eyes: EOMI, no conjunctival erythema appreciated ENT: Moist Mucus Membranes Neck: Trachea midline, Supple Chest/axilla: Normal chest wall appearance and motion. Cardiovascular: Regular rate and rhythm. No edema appreciated Respiratory: Normal respirations, no respiratory distress appreciated 19:36 Back: Normal ROM Skin: General appearance color normal MS/ Extremity: Moves all extremities, no obvious deformities appreciated, no edema noted to the lower extremities Neuro: Awake and alert Psych: Behavior is normal, Mood is normal, Patient is cooperative and pleasant 19:36 Abdomen/GI: Inspection: abdomen appears normal, Bowel sounds: normal, Palpation: abdomen is soft and non-tender, in all quadrants. Vital Signs: 16:08 BP 130 / 76; Pulse 78; Resp 16 S; Temp 98.2(TE); Pulse Ox 100% on R/A; Weight 72.57 kg jd3 (R); Height 4 ft. 10 in. (147.32 cm) (R); Pain 10/10; 17:30 BP 120 / 64; Pulse 66; Resp 16; Pulse Ox 94% on R/A; em6 18:33 BP 107 / 74; Pulse 63; Resp 18; Pulse Ox 94% on R/A; em6 20:30 BP 112 / 78; Pulse 82; Resp 16; Pulse Ox 98% on R/A; kl 16:08 Body Mass Index 33.44 (72.57 kg, 147.32 cm) jd3 MDM: 16:02 Patient medically screened. [facility] 19:39 Data reviewed: vital signs, nurses notes. Counseling: I had a detailed discussion with [facility] the patient and/or guardian regarding: the historical points, exam findings, and any diagnostic results supporting the discharge/admit diagnosis, lab results, radiology results, the need for outpatient follow up, to return to the emergency department if symptoms worsen or persist or if there are any questions or concerns that arise at home. 06/09 16:02 Order name: CBC with Diff; Complete Time: 17:52 [facility] 06/09 16:02 Order name: CMP; Complete Time: 17:52 [facility] 06/09 16:02 Order name: Lipase; Complete Time: 17:52 [facility] 06/09 16:03 Order name: CT Abd/Pelvis - Without Contrast; Complete Time: 17:21 [facility] 06/09 16:48 Order name: SARS RAPID; Complete Time: 17:52 kj1 06/09 17:29 Order name: Urine Dipstick-Ancillary; Complete Time: 17:52 [facility] 06/09 16:02 Order name: IV Saline Lock; Complete Time: 17:00 [facility] 06/09 16:02 Order name: Labs collected and sent; Complete Time: 17:02 [facility] 06/09 16:02 Order name: Urine Dipstick-Ancillary (obtain specimen); Complete Time: 17:29 [facility] Administered Medications: 16:40 Drug: NS 0.9% 1000 ml Route: IV; Rate: 1 bolus; Site: left antecubital; em6 16:40 Drug: Zofran (Ondansetron) 4 mg Route: IVP; Site: left antecubital; em6 17:00 Follow up: Response: No adverse reaction em6 16:40 Drug: fentaNYL (PF) 50 mcg Route: IVP; Site: left antecubital; em6 17:20 Follow up: Response: No adverse reaction; RASS: Alert and Calm (0) em6 16:40 Drug: Pepcid (famotidine) 20 mg Route: IVP; Site: left antecubital; em6 17:20 Follow up: Response: No adverse reaction em6 16:40 Drug: diphenhydrAMINE 12.5 mg Route: IVP; Site: left antecubital; em6 17:20 Follow up: Response: No adverse reaction em6 20:34 Drug: fentaNYL Patch (50 mcg/hr) 1 patches Route: Transdermal; Site: anterior chest kl wall; Disposition Summary: 06/09/22 19:40 Discharge Ordered Location: Home [facility] Condition: Stable [facility] Diagnosis - Abdominal pain, unspecified [facility] Followup: [facility] - With: Bryant Loya MD - When: 2 - 3 days - Reason: Recheck today's complaints, Continuance of care, Re-evaluation by your physician Discharge Instructions: - Discharge Summary Sheet [facility] - Abdominal Pain, Adult [facility] Forms: - Medication Reconciliation Form [facility] - Thank You Letter jmm - Antibiotic Education jmm - Prescription Opioid Use [facility] Prescriptions: - Cephalexin 250 mg/5 mL Oral Suspension for Reconstitution - take 3.5 milliliters by ORAL route every 6 hours for 10 days Max = 4gm/day; 140 jmm milliliter; Refills: 0, Product Selection Permitted Addendum: 06/11/2022 15:34 STAFF ATTESTATION STATEMENT: I was immediately available onsite in the emergency s d2 department for consultation in the care of this patient. I did not see or examine this patient. Dior Guevara MD. Signatures: Dispatcher [employer] EDMS Rahel Iniguez RN RN Bharat Willson PA PA jmm Davies, Jonathon, RN RN Dior Carson MD MD sd2 Karly Godfrey RN RN em6
[2022-06-09] MEDS ORDERED: FENTANYL 25 MCG/PATCH TD ONE (20:26)
[2022-06-11 15:39] VITALS: TEMP 98.2
[2022-06-11 15:48] VITALS: BP 112/78; O2SAT 98
== END 2022-06-10 02:09 | disposition home or self-care (01) ==
LOC: ER 15:50
DX: R10.9 Unspecified abdominal pain (principal); I10 Essential (primary) hypertension; E11.9 Type 2 diabetes mellitus without complications; Z20.822 Contact with and (suspected) exposure to COVID-19
CPT/HCPCS: 85025; 36415; 81003; 83690; 80053; 74176; 96375; 96374; 99284; 87811; J1200; J3010; J7030; J2405

== ENCOUNTER 2023-01-16 16:57 | Emergency (ER) | payer OTHER ==
--- OUTSIDE RECORDS SUMMARY | 2023-01-16 17:30 | XMS REPORT | Continuity of Care Document ---
:[address] [facility] t Address [address] [facility]. [address] [place] [address] Care Team Providers Name Role Phone Lakeshia Mathis MD Primary Care Physician [phone] JOSE CABALLERO Attending Clinician Unavailable VANESSA MONTOYA Attending Clinician Unavailable VANESSA MONTOYA Attending Clinician Unavailable PUAL ASHTON Attending Clinician Unavailable JACKIE FERNANDEZ Attending Clinician Unavailable ROBSON MURILLO Attending Clinician Unavailable RJ MCCORD Attending Clinician Unavailable Caitlin Valles OT Attending Clinician Unavailable Rachele Bansal MD Attending Clinician Jovita Mora MD Attending Clinician LAB90 Attending Clinician Unavailable Mann Perdomo NP Attending Clinician Lakeshia Mathis MD Attending Clinician [phone] RACHELE BANSAL Attending Clinician Unavailable Doctor Unassigned, Delleker Attending Clinician Unavailable KAMILLA NAVA Attending Clinician Unavailable DANY KHANNA Attending Clinician Unavailable JOVITA MORA Attending Clinician Unavailable Garrett TAG MAKER, Caitlin K Attending Clinician Unavailable Rj Mccord PA-C Attending Clinician Garrett TAVERAS, Molina Hayward Attending Clinician Unavailable Jennifer Shah PT Attending Clinician Unavailable 2, [facility] Attending Clinician Unavailable Danny William MD Attending Clinician MANN PERDOMO Attending Clinician Unavailable DANNY WILLIAM Attending Clinician Unavailable ESTELLA ANDERSON Attending Clinician Unavailable Estella Anderson MD Attending Clinician LAKESHIA MATHIS Attending Clinician Unavailable Vilma MITCHELL Attending Clinician Unavailable Vilma Phan Attending Clinician Bud Ma Attending Clinician BUD ORDONEZ Attending Clinician Unavailable SHERRIE FERNÁNDEZ Attending Clinician Unavailable Jimy Cardona OT Attending Clinician Unavailable Clara Kim OD Attending Clinician CLARA KMI Attending Clinician Unavailable Lashaun Bean PT Attending Clinician Unavailable Ama Manzo PT Attending Clinician Unavailable Mahamed Goodwin Attending Clinician Pooja Vigil MD Attending Clinician POOJA VIGIL Attending Clinician Unavailable Vls-Lab Attending Clinician Unavailable Dada Saleh MD Attending Clinician Jannette Vázquez MD Attending Clinician JANNETTE VÁZQUEZ Attending Clinician Unavailable Ghada Dutta RN Attending Clinician Unavailable Only, Ang Db Test Attending Clinician Unavailable Therapy, Adc Covid Infusion Attending Clinician Unavailable Eamon Barrow MD Attending Clinician EAMON BARROW Attending Clinician Unavailable MAHAMED ROBLES Attending Clinician Unavailable Therapy-Alejo, Mid-Gi-Smglf Attending Clinician Unavailable Art Reyes MD Attending Clinician ART REYES Attending Clinician Unavailable Yan Frazier MD Attending Clinician YAN FRAZIER Attending Clinician Unavailable HEATHER JURADO Attending Clinician Unavailable JOSH JOHNSON Attending Clinician Unavailable LYNNE FONSECASRA Attending Clinician Unavailable JAIMIE PAPPAS Attending Clinician Unavailable DADA SALEH Attending Clinician Unavailable DADA SALEH Attending Clinician Unavailable TORSTEN COCHRAN Attending Clinician Unavailable SANDI VEGA Attending Clinician Unavailable YAMILA BARROW Attending Clinician Unavailable MAXIMO GEORGE Attending Clinician Unavailable TAMIKO RAMACHANDRAN Attending Clinician Unavailable JOSIE TIMMONS Attending Clinician Unavailable JOSIE TIMMONS Attending Clinician Unavailable BRAXTON CASTILLO M.D. Attending Clinician Unavailable ROBSON MURILLO NP Attending Clinician Unavailable JOSE CABALLERO Admitting Clinician Unavailable MANN PERDOMO Admitting Clinician Unavailable DANNY WILLIAM Admitting Clinician Unavailable ESTELLA ANDERSON Admitting Clinician Unavailable Vilma MITCHELL Admitting Clinician Unavailable RJ MCCORD Admitting Clinician Unavailable BUD ORDONEZ Admitting Clinician Unavailable MAXIMO GEORGE Admitting Clinician Unavailable TAMIKO RAMACHANDRAN Admitting Clinician Unavailable Payers Payer Name Policy Type Policy Number Effective Date Expiration Date S ource [facility] WELLMED [id number] 2021 00:00:00 WELLMED/AARP MCARE [id number] 2020 ADV CHOICE PPO 00:00:00 [facility] RICH AARP PLAN 1 7 [id number] 2022 HMO 00:00:00 [facility] RICH DUAL 5 [id number] 2022 COMPLETE ALLY 00:00:00 D-SNP UNITED [id number] 2020 HEALTHCARE/AARP 00:00:00 Problems Condition Condition Condition Status Onset Resolution Last Treating Co mments Source Name Details Category Date Date Treatment Clinician Date 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 4-25 ity of atrophic atrophic 00:00: [place] vaginitis vaginitis 00 Medi li Branch [facility] adult Well adult Disease Active K elsey exam exam 4-10 Seybold 00:00: - 00 Externa l Class 1 Class 1 Disease Active Melinda obesity obesity 4-10 Seybold due to due to 00:00: - excess excess 00 Externa calories calories l with with serious serious comorbidit comorbidit y and body y and body mass index mass index (BMI) of (BMI) of 34.0 to 34.0 to 34.9 in 34.9 in adult adult Chronic Chronic Disease Active Melinda constipati constipati 4-10 Se ybold on on 00:00: - 00 Externa l 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 00:00: 00 Externa l 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 00:00: - with with 00 Externa diabetic diabetic l neuropathy neuropathy , without , without long-term long-term current current use of use of insulin insulin Primary Primary Disease Active Melinda hypertensi hypertensi 1-10 Se ybold on on 00:00: - 00 Externa l History of History of Disease Active K elsey CVA with CVA with 1-10 Seybol d residual residual 00:00: - deficit deficit 00 Externa l Gastroesop Gastroesop Disease Active U nivers hageal hageal 1-10 ity of reflux reflux 00:00: [place] disease disease 00 Medical without without Branch esophagiti esophagiti s s 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 00:00: [place] mixed mixed 00 Medical hyperlipid hyperlipid Br anch emia emia Mixed Mixed Disease Active 2020-09 Univers hyperlipid hyperlipid 2-01 it y of emia emia 00:00: [place] 00 Medical Branch History of History of Disease Active 2020-09 U nivers stroke stroke 2-01 ity of 00:00: [place] 00 Medical Branch Sciatic Sciatic Disease Active 2020-09 Univers nerve nerve 2-01 ity of pain, pain, 00:00: [place] right right 00 Medical Branch History of History of Disease Active 2020-09 U nivers CVA with CVA with 2-01 ity of residual residual 00:00: [place] deficit deficit 00 Medical Branch Limitation Limitation Disease Active [...] allergic 6-10 ity of rhinitis rhinitis 00:00: [place] 00 Medical Branch Decreased Decreased Disease Active Uni vers activities activities 5-27 it y of of daily of daily 00:00: [place] living living 00 Medical (ADL) (ADL) Branch Stiffness Stiffness Disease Active Uni vers of right of right 5-27 ity of wrist wrist 00:00: [place] joint joint 00 Medical Branch Stiffness Stiffness Disease Active Uni vers of finger of finger 5-13 ity of joint of joint of 00:00: [place] right hand right hand 00 Me dical Branch Right hand Right hand Disease Active U nivers weakness weakness 5-13 ity of 00:00: [place] 00 Medical Branch 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 and 4-21 it y of urge urge 00:00: [place] urinary urinary 00 Medical incontinen incontinen Br anch ce ce Arthritis Arthritis Disease Active Uni vers of right of right 8-17 ity of subtalar subtalar 00:00: [place] joint joint 00 Medical Branch Osteochond Osteochond Disease Active U nivers ral lesion ral lesion 8-17 it y of of talar of talar 00:00: [place] dome dome 00 Medical Branch Peroneal Peroneal Disease Active Unive rs tendinitis tendinitis 8-17 it y of , right , right 00:00: [place] 00 Medical Branch 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, varus, 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, acquired, 00:[place] Chronic Chronic Disease Active 2020-0 Univers left left 2-28 ity of shoulder shoulder 00:00: [place] pain pain 00 Medical Branch Pain of Pain of Disease Active 2020- Univers foot, foot, 2-28 ity of unspecifie unspecifie [place] Medical laterality laterality Br anch Chronic Chronic Disease Active 2020- Univers pain pain 2-28 ity of syndrome syndrome 00:00: [place] 00 Medical Branch Obesity Obesity Disease Active 2019 Univers (BMI (BMI 5-20 ity of 30-39.9) 30-39.9) 00:00: [place] 00 Medical Branch Encounter Encounter Disease Active Overview: Univers for for 01-21 Formattin ity of complete complete 00:00: g of this Matt as eye exam eye exam 00 note Medica l might be Branch different from the original. Added automatic ally from request for surgery [id number] Epigastric Epigastric Disease Active Overview : Univers pain pain 01-21 Formattin ity of 00:00: g of this [place] 00 note Medical might be Branch different from the original. Added automatic ally from request for surgery [id number] Chronic Chronic Disease Active 2017-09 Univers endometrit endometrit 1-16 it y of is is 00:00: [place] Medical Branch Postmenopa Postmenopa Disease Active 2017-09 U nivers usal usal -16 ity of bleeding bleeding 00:00: [place] Medical Branch Chronic Chronic Disease Active Univers right-side right-side 01-24 it y of d low back d low back 00:00[place] pain pain 00 Medical without without Branch sciatica sciatica Neuropathy Neuropathy Disease Active 2016-09 U nivers 2-27 ity of 00:00: [place] 00 Medical Branch Type 2 Type 2 Disease Active Univers diabetes diabetes 25 ity of mellitus mellitus 00:00: [place] without without 00 Medical complicati complicati Br anch on, on, without without long-term long-term current current use of use of insulin insulin Essential Essential Disease Active Uni vers hypertensi hypertensi 9-25 it y of on on 00:00: [place] 00 Medical Branch JAMSHID JAMSHID Disease Active Univers (obstructi (obstructi 06-17 it y of ve sleep ve sleep 00:00: [place] apnea) apnea) 00 Medical Branch Hemiplegia Hemiplegia Disease Active U nivers affecting affecting 7-11 ity of right side right [place] 00 Medical right-kala right-kala Br rancho liangjoe espinoza patient as patient as late late effect of effect of cerebrovas cerebrovas cular cular disease disease CVA CVA Diagnosis Active 2017-01-07 Mem oria Active 01-04 04:00:00 l 01/04/2017 00:00: Gerardo zafar [address] Rehabilita tion LWOT LWOT Diagnosis Active 2014-03-21 Mem oria Active 03-19 02:43:00 l 03/19/2014 00:00: Gerardo zafar [address] STROKE STROKE Diagnosis Active 2014-03-18 Me moria LIKE LIKE 03-17 06:12:00 l SYMPTOMS SYMPTOMS 00:00: Gerardo n Active 00 03/17/2014 [facility] STROKE STROKE Diagnosis Active 2015-09-14 Me moria LIKE LIKE 03-17 14:33:00 l SYMPTOMS, SYMPTOMS, 00:00: Herm tee TIA TIA 00 Active 03/17/2014 [facility] HEMORRHAGI HEMORRHAG Diagnosis Active 2015-09-14 Memoria C CVA IC CVA 11-26 14:34:00 l Active 00:00: Srikanth 11/26/2013 00 [facility] Mancini's Mancini's Problem Resolve 2017-06-17 Mem oria palsy palsy d 05:46:07 l (disorder) (disorder) He rmann Resolved Problem 06/17/2017 [facility] [place] OPID [place] Cerebral Cerebral Problem Resolve 2017-06-17 Memoria infarction infarction d 05:46:07 l (disorder) (disorder) He rmann Resolved Problem 06/17/2017 [facility] [place] OPID Srikanth Gastritis Problem Resolve 2017-06-17 M emoria and Gastritis d 05:46:07 l duodenitis and Gerardo n (disorder) duodenitis (disorder) Resolved Problem 06/17/2017 [facility] [place] OPID Srikanth 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 21:31:50 l occlusion occlusion Herm tee (disorder) (disorder) Resolved Problem 12/02/2013 [facility] Gastritis( Gastritis Problem Resolve 2013-12-02 Memoria Confirmed) (Confirmed d 21:31:50 l ) Srikanth Resolved Problem 12/02/2013 [facility] CVA CVA Problem Resolve 2014-03-23 Jose Luis dennis (cerebral (cerebral d 20:08:30 l infarction infarction He rmann )(Confirme )(Confirme d) d) Resolved Problem 03/23/2014 [facility] Diabetes Diabetes Problem Active 2017-06-17 Memoria mellitus mellitus 05:46:07 l (disorder) (disorder) He rmann Active Problem 06/17/2017 [facility] [place] [facility] Dizziness Dizziness Problem Active 2017-06-17 Memoria (finding) (finding) 05:46:07 l Active [place] Problem 06/17/2017 [facility] [place] [facility] Seizure Seizure Problem Active 2017-06-17 M emoria (finding) (finding) 05:46:07 l Active [place] Problem 06/17/2017 [facility] [place] [facility] CVA CVA Diagnosis Active 2015-09-14 Mem oria Active 14:34:00 l [facility] Rehabilita tion TRANS TRANS Diagnosis Active 2015-09-14 Mem oria CEREB CEREB 14:33:00 l ISCHEMIA ISCHEMIA Gerardo n NEC NEC Active [facility] History of History of Problem Resolve UT [...] U T neuralgia neuralgia [id number] Physici ans Benign Benign Problem Active [place] essential essential [...] right an s dominant dominant side side History of History of Problem Resolve [place] type 2 type 2 [id number] d Physic i diabetes diabetes ans mellitus mellitus History of Past Illness Condition Condition Condition Status Onset Resolution Last Treating Co mments Source Name Details Category Date Date Treatment Clinician Date Headache Headache Problem 2016-2017-01-08 2017-01-08 Memoria 01/05/201701-05 01:04:01 01:04:01 l 01/08/2017 05:00: Gerardo zafar [address] Allergies, Adverse Reactions, Alerts Allergy Allergy Status Severity Reaction(s) Onset Inactive Treating Comm ents Source Name Type Date Date Clinician Ibuprofe Propensi Active Rash 2022-0 Melinda n ty to 2-23 Seybold adverse 00:00: - reaction 00 Externa s l Iodinate Propensi Active Anaphylaxis 2022-0 K elsey d ty to 2-23 Seybold Contrast adverse 00:00: - reaction 00 Externa s l Morphine Propensi Active Hives 2022-0 Melinda ty to 2-23 Seybold adverse 00:00: - reaction 00 Externa s l Tramadol Propensi Active Rash 2022-0 Melinda ty to 2-23 Seybold adverse 00:00: - reaction 00 Externa s l Naproxen Propensi Active 2021-09 [place] ty to 0-26 Health adverse 00:00: reaction 00 s Ibuprofe Propensi Active Other 2021-09 Abdominal UT n ty to 0-26 pain Health adverse 00:00: reaction 00 s Tramadol Propensi Active 2021- [place] ty to 0-26 Health adverse 00:00: reaction 00 s Shellfis Propensi Active 2021-09 Melinda h-Derive ty to 0-26 Seybold d adverse 00:00: - Products reaction 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 IODINATE Drug Active Anaphylaxis Uni vers D Class - ity of CONTRAST 00:00: [place] MEDIA 00 Medical Branch OMEGA-3 DRUG Active Unknown-Cmnt Uni vers FATTY INGREDI 9 ity of ACIDS 00:00: [place] 00 Medical Branch Iodinate Propensi Active Anaphylaxis 2021-0 U nivers d ty to 06-15 ity of Contrast adverse 00:00: [place] Media reaction 00 Medical s Branch IODINE DRUG Active High Anaphylaxis 0 Unive rs INGREDI 06-15 ity of 00:00: [place] 00 Medical Branch Docosahe Propensi Active Rash 0 Other Melinda xaenoic ty to 06-15 reaction( Seybol d Acid adverse 00:00: s): - (Dha) reaction 00 Unknown - Exter na (Microal s See l gae) commentsD ue to contrast rxnDue to contrast rxn Iodine Propensi Active Anaphylaxis Roshan sey ty to 06-15 Seybold adverse 00:00: - reaction 00 Externa s l Ibuprofe Propensi Active Rash Univer s n [...] ity of 00:00: [place] 00 Medical Branch Morphine Allergy Active Hives Other UT to 03-25 reaction( Health substanc 00:00: s): e 00 Nausea/Vo mitingSev ere headache traMADol traMADol Active Memori a l [place] Advil Advil Active Memoria l [place] Ciprodex Ciprodex Active Memori a <sup>1</ <sup>1</ l sup> sup> Srikanth Aleve drug Active UT TABS allergy Physici [...] Start Date Stop Date Quantity Comments Source Gender identity Melinda parkerallen - External Sexual orientation Melinda Drew - External History [facility] o f Alcohol Std Drinks [place] [facility] History SDOH University o f Alcohol Binge [place] Medic al Branch History [facility]MN University o f Alcohol Comment [place] Med ical Branch Exposure to 2023-01-05 2023-01-15 Not sure University of SARS-CoV-2 (event) 00:00:00 13:12:00 [facility] Alcohol intake 2022-12-31 2022-12-31 Ex-drinker Melinda ortiz - 00:00:00 00:00:00 (finding) External History of Social 2022-10-29 2022-10-29 Melinda Drew - function 00:00:00 00:00:00 External Tobacco use and 2022-04-02 2022-04-02 Smokeless Universit y of exposure 00:00:00 00:00:00 tobacco non-user [facility] dical Branch History SDOH 2021-11-02 2021-11-02 1 University o f Alcohol Frequency 00:00:00 00:00:00 [facility] [place] [facility] edical Branch Social History 2014-03-18 2014-03-18 [facility] 20:46:33 20:46:33 [birth year] Melinda parkerold - 00:00:00 00:00:00 External Smoking Status Start Date Stop Date Source Tobacco smoking consumption Humaira Drew - External unknown Never smoked tobacco [facility] Medications Ordered Filled Start Stop Current Ordering Indication Dosage Frequency Signature Comments Components Source Medication Medication Date Date Medication? Clinician (SIG) Name Name blood sugar Yes [id number] Use to Univers diagnostic 4-13 test blood ity of (ONETOUCH 00:00: sugar 3 [place] ULTRA TEST) 00 times Medical strip daily Branch blood sugar Yes [id number] Use to Univers diagnostic 4-13 test blood ity of (ONETOUCH 00:00: sugar 3 [place] ULTRA TEST) 00 times Medical strip daily Branch blood sugar Yes [id number] Use to Univers diagnostic 4-13 test blood ity of (ONETOUCH 00:00: sugar 3 [place] ULTRA TEST) 00 times Medical strip daily Branch blood sugar 0 Yes [id number] Use to Univers diagnostic 4-13 test blood ity of (ONETOUCH 00:00: sugar 3 [place] ULTRA TEST) 00 times Medical strip daily Branch Cholecalcif 0 2022- No Take by Jose flores deb 4-10 04-10 mouth Seybold (Vitamin 09:57: 00:00 - D3) 1.25 MG 41 :00 Externa (39052 [place]) l oral Capsule Gabapentin 0 Yes 300mg Take 1 Humaira ey 300 MG oral 4-10 capsule Seybo ld Capsule 09:38: (300 mg - 44 total) by Externa mouth 4 l pill every am, 3 pills every noontime and 4 pills every pm Lisinopril Yes 10mg Take 1 Kelse y 10 MG oral 4-10 tablet (10 Sey bold Tablet 09:38: mg total) - 44 by mouth Externa daily l Pantoprazol Yes 40mg Take 1 Humaira ey e Sodium 40 4-10 tablet (40 Se ybold MG oral 09:38: mg total) - Tablet 44 by mouth Externa Delayed daily l Response Pravastatin Yes 10mg Take 1 Humaira ey Sodium 10 4-10 tablet (10 Seyb old MG oral 09:38: mg total) - Tablet 44 by mouth Externa daily l Ondansetron Yes 4mg [id number] Take 1 Melinda HCl 4 MG 4-10 [id number] tablet (4 Seybold oral Tablet 09:38: 3D mg total) - 44 by mouth Externa every 8 l hours as needed Cyanocobala Yes Take by Roshan sey min 4-10 mouth Seybold (Vitamin 09:38: - B-12) 100 44 Externa MCG oral l Tablet Amitriptyli 2022- No 25mg Take 25 mg Melinda ne HCl 25 4-10 04-10 by mouth Seybo ld MG oral 09:36: 00:00 nightly - Tablet 44 :00 Externa l Topiramate 0 Yes [id number] 50mg Take 1 Melinda 50 MG oral 4-10 tablet (50 Sey bold Tablet 00:00: mg total) - 00 by mouth 2 Externa times l daily linaCLOtide Yes [id number] 145ug Take 1 Melinda (Linzess) 4-10 capsule Seybold 145 MCG 00:00: (145 mcg - oral 00 total) by Externa Capsule mouth l daily Cholecalcif Yes [id number] 1{capsu Take 1 Melinda deb 4-10 le} capsule by Rajendra (Vitamin 00:00: mouth once - D3) 1.25 MG 00 a week 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 (29805 [place]) l oral Capsule ONETOUCH Yes [id number] Use to Un yesi ULTRA2 4-06 test blood ity of METER Misc 00:00: [place] (TWICE Medical DAILY) Branch lancets Yes [id number] Use to Uni vers (SAFETY 4-06 test blood ity of LANCETS) 28 00:00: sugar [place] gauge Misc 00 twice Medical daily Branch ONETOUCH 0 Yes [id number] Use to Un yesi ULTRA2 4-06 test blood ity of METER Misc 00:00: glucose [place] 00 (TWICE Medical DAILY) Branch blood sugar Yes [id number] Use to Univers diagnostic 4-06 test blood ity of (ONETOUCH 00:00: sugar [place] ULTRA TEST) 00 twice Medical strip daily Branch lancets Yes [id number] Use to Uni vers (SAFETY 4-06 test blood ity of LANCETS) 28 00:00: sugar [place] gauge Misc 00 twice Medical daily Branch ONETOUCH 0 Yes [id number] Use to Un yesi ULTRA2 4-06 test blood ity of METER Misc 00:00: glucose [place] 00 (TWICE Medical DAILY) Branch lancets 0 Yes [id number] Use to Uni vers (SAFETY 4-06 test blood ity of LANCETS) 28 00:00: sugar [place] gauge Misc 00 twice Medical daily Branch ONETOUCH 0 Yes [id number] Use to Un yesi ULTRA2 4-06 test blood ity of METER Misc 00:00: glucose [place] 00 (TWICE Medical DAILY) Branch lancets 0 Yes [id number] Use to Uni vers (SAFETY 4-06 test blood ity of LANCETS) 28 00:00: sugar [place] gauge Misc 00 twice Medical daily Branch ONETOUCH Yes [id number] Use to Un yesi ULTRA2 4-06 test blood ity of METER Misc 00:00: glucose [place] 00 (TWICE Medical DAILY) Branch lancets Yes [id number] Use to Uni vers (SAFETY 4-06 test blood ity of LANCETS) 28 00:00: sugar [place] gauge Misc 00 twice Medical daily Branch ONETOUCH 0 Yes [id number] Use to Un yesi ULTRA2 4-06 test blood ity of METER Misc 00:00: glucose [place] 00 (TWICE Medical DAILY) Branch lancets Yes [id number] Use to Uni vers (SAFETY 4-06 test blood ity of LANCETS) 28 00:00: sugar [place] gauge Misc 00 twice Medical daily Branch OneTouch Yes Melinda Ultra in -06 Seybold vitro Strip 00:00: - 00 Externa l Safety Yes Melinda Lancets 28G 4-06 Seybold does not 00:00: - apply Misc 00 Externa l blood sugar 2022- No [id number] Use to [facility] diagnostic 4-06 04-13 test blood it y of (ONETOUCH 00:00: 00:00 sugar [place] ULTRA TEST) 00 :00 twice Medical strip daily Branch Gabapentin Yes 300mg Take 300 Ke lsey 300 MG oral 3-27 mg by Seybold Capsule 11:38: mouth 4 - 54 pill every Externa am, 3 l pills every noontime and 4 pills every pm Lisinopril Yes 10mg Take 10 mg K elsey 10 MG oral 3-27 by mouth Seybo ld Tablet 11:38: daily - 54 Externa l Pantoprazol Yes 40mg Take 40 mg Melinda e Sodium 40 3-27 by mouth Seyb old MG oral 11:38: daily - Tablet 54 Externa Delayed l Response Pravastatin Yes 10mg Take 10 mg Melinda Sodium 10 3-27 by mouth Seybol d MG oral 11:38: daily - Tablet 54 Externa l Ondansetron Yes 4mg Q.[id number] Take 4 mg [place]inda HCl 4 MG 3-27 [id number] by mouth S eybold oral Tablet 11:38: 3D every 8 - 54 hours as Externa needed l Amitriptyli 2022-0 Yes 25mg Take 25 mg Melinda ne HCl 25 3-27 by mouth Seybol d MG oral 11:38: nightly - Tablet 54 Externa l Pravastatin 2022-0 Yes 10mg Take 10 mg Melinda Sodium 10 3-06 by mouth Seybol d MG oral 10:08: daily - Tablet 39 Externa l Ondansetron 2022-0 Yes 4mg Q.[id number] Take 4 mg Melinda HCl 4 MG 3-06 [id number] by mouth S eybold oral Tablet 10:08: 3D every 8 - 39 hours as Externa needed l Amitriptyli 2022-0 Yes 25mg Take 25 mg Melinda ne HCl 25 3-06 by mouth Seybol d MG oral 10:08: nightly - Tablet 39 Externa l Gabapentin 2022-0 Yes 300mg Take 300 Ke lsey 300 MG oral 3-06 mg by Seybold Capsule 10:08: mouth 4 - 39 pill every Externa am, 3 l pills every noontime and 4 pills every pm Lisinopril 2022-0 Yes 10mg Take 10 mg K elsey 10 MG oral 3-06 by mouth Seybo ld Tablet 10:08: daily - 39 Externa l Pantoprazol 2022-0 Yes 40mg Take 40 mg Melinda e Sodium 40 3-06 by mouth Seyb old MG oral 10:08: daily - Tablet 39 Externa Delayed l Response Amitriptyli 2022-0 Yes 25mg Take 25 mg Melinda ne HCl 25 2-23 by mouth Seybol d MG oral 09:29: nightly - Tablet 24 Externa l Gabapentin 2022-0 Yes 300mg Take 300 Ke lsey 300 MG oral 2-23 mg by Seybold Capsule 09:28: mouth 4 - 34 pill every Externa am, 3 l pills every noontime and 4 pills every pm Lisinopril 2022-0 Yes 10mg Take 10 mg K elsey 10 MG oral 2-23 by mouth Seybo ld Tablet 09:28: daily - 34 Externa l Pantoprazol 2022-0 Yes 40mg Take 40 mg Melinda e Sodium 40 2-23 by mouth Seyb old MG oral 09:28: daily - Tablet 34 Externa Delayed l Response Pravastatin 2022-0 Yes 10mg Take 10 mg Melinda Sodium 10 2-23 by mouth Seybol d MG oral 09:28: daily - Tablet 34 Externa l Ondansetron 2022-0 Yes 4mg [id number] Take 4 mg Melinda HCl 4 MG - [id number] by mouth S eybold oral Tablet 09:28: 3D every 8 - 34 hours as Externa needed l estradioL Yes [id number] Insert 1 g [facility] (ESTRACE) 2-14 PV daily x ity of 0.01 % (0.1 00:00: 2 [place] mg[place]gram[place] 00 then twice Medic al vaginal weekly Branch cream estradioL Yes [id number] Insert 1 g [facility] (ESTRACE) 2-14 PV daily x ity of 0.01 % (0.1 00:00: 2 [place] mg/gram[place] 00 then twice Medic al vaginal weekly Branch cream estradioL Yes [id number] Insert 1 g [facility] (ESTRACE) 2-14 PV daily x ity of 0.01 % (0.1 00:00: 2 [place] mg/gram[place] 00 then twice Medic al vaginal weekly Branch cream estradioL Yes [id number] Insert 1 g [facility] (ESTRACE) 2-14 PV daily x ity of 0.01 % (0.1 00:00: 2 [place] mg/gram[place] 00 then twice Medic al vaginal weekly Branch cream estradioL Yes [id number] Insert 1 g [facility] (ESTRACE) 2-14 PV daily x ity of 0.01 % (0.1 00:00: 2 [place] mg/gram[place] 00 then twice Medic al vaginal weekly Branch cream estradioL Yes [id number] Insert 1 g [facility] (ESTRACE) 2-14 PV daily x ity of 0.01 % (0.1 00:00: 2 [place] mg/gram[place] 00 then twice Medic al vaginal weekly Branch cream estradioL Yes [id number] Insert 1 g [facility] (ESTRACE) 2-14 PV daily x ity of 0.01 % (0.1 00:00: 2 wks[place] mg/gram[place] 00 then twice Medic al vaginal weekly Branch cream estradioL Yes [id number] Insert 1 g [facility] (ESTRACE) 2-14 PV daily x ity of 0.01 % (0.1 00:00: 2 wks[place] mg/gram[place] 00 then twice Medic al vaginal weekly Branch cream estradioL Yes [id number] Insert 1 g [facility] (ESTRACE) 2-14 PV daily x ity of 0.01 % (0.1 00:00: 2 wks[place] mg/gram[place] 00 then twice Medic al vaginal weekly Branch cream estradioL Yes [id number] Insert 1 g [facility] (ESTRACE) 2-14 PV daily x ity of 0.01 % (0.1 00:00: 2 wks[place] mg[place]gram[place] 00 then twice Medic al vaginal weekly Branch cream estradioL Yes [id number] Insert 1 g [facility] (ESTRACE) 2-14 PV daily x ity of 0.01 % (0.1 00:00: 2 wks[place] mg/gram[place] 00 then twice Medic al vaginal weekly Branch cream estradioL Yes [id number] Insert 1 g [facility] (ESTRACE) 2-14 PV daily x ity of 0.01 % (0.1 00:00: 2 wks[place] mg/gram[place] 00 then twice Medic al vaginal weekly Branch cream estradioL Yes [id number] Insert 1 g [facility] (ESTRACE) 2-14 PV daily x ity of 0.01 % (0.1 00:00: 2 wks[place] mg[place]gram[place] 00 then twice Medic al vaginal weekly Branch cream estradioL Yes [id number] Insert 1 g [facility] (ESTRACE) 2-14 PV daily x ity of 0.01 % (0.1 00:00: 2 [place]ks[place] mg[place]gram[place] 00 then twice Medic al vaginal weekly Branch cream ESTRADIOL Yes Insert 1 g [place] VAGINAL 0.1 2-14 PV daily x Se ybold MG/GM 00:00: 2 wks, - vaginal 00 then twice 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 Cream weekly l Topiramate 2022- No 25mg Take 25 mg Melinda 25 MG oral 2-06 02-06 by mouth 2 Se ybold Tablet 15:28: 00:00 times - 49 :00 daily Externa l Baclofen 5 2022-0 2023- No 5mg Take 5 mg K elsey MG oral 2-06 02-06 by mouth 2 Seybo ld Tablet 15:27: 00:00 times - 03 :00 daily Externa l Topiramate 2022-0 Yes [id number] 25mg Take 1 Melinda 25 MG oral 2-06 tablet (25 Sey bold Tablet 00:00: mg total) - 00 by mouth 2 Externa times l daily Baclofen 10 2022-0 Yes [id number] 10mg Take 1 Melinda MG oral 2-06 tablet (10 Seybol d Tablet 00:00: mg total) - 00 by mouth 2 Externa times l daily Topiramate 2022-0 Yes [id number] 25mg Take 1 Melinda 25 MG oral 2-06 tablet (25 Sey bold Tablet 00:00: mg total) - 00 by mouth 2 Externa times l daily Baclofen 10 2022-0 Yes [id number] 10mg Take 1 Melinda MG oral 2-06 tablet (10 Seybol d Tablet 00:00: mg total) - 00 by mouth 2 Externa times l daily Baclofen 10 2022-0 Yes [id number] 10mg Take 1 Melinda MG oral 2-06 tablet (10 Seybol d Tablet 00:00: mg total) - 00 by mouth 2 Externa times l daily Topiramate 2022-0 Yes [id number] 25mg Take 1 Melinda 25 MG oral 2-06 tablet (25 Sey bold Tablet 00:00: mg total) - 00 by mouth 2 Externa times l daily Baclofen 10 2022-0 Yes [id number] 10mg Take 1 Melinda MG oral 2-06 tablet (10 Seybol d Tablet 00:00: mg total) - 00 by mouth 2 Externa times l daily Topiramate 2022-0 Yes [id number] 25mg Take 1 Melinda 25 MG oral 2-06 tablet (25 Sey bold Tablet 00:00: mg total) - 00 by mouth 2 Externa times l daily Baclofen 10 2022-0 Yes [id number] 10mg Take 1 Melinda MG oral 2-06 tablet (10 Seybol d Tablet 00:00: mg total) - 00 by mouth 2 Externa times l daily Topiramate 2022-0 2023- No [id number] 25mg Take 1 Melinda 25 MG oral 2-06 04-10 tablet (25 Se ybold Tablet 00:00: 00:00 mg total) - 00 :00 by mouth 2 Externa times l daily cholecalcif 2022- No QD Take by [place] deb 10-23 mouth 1 Health (Vitamin 10:03: 00:00 (one) time D-3) 10 MCG 51 :00 each day. (400 UNIT) capsule Amitriptyli 2023- Yes 25mg Take 1 Roshan sey ne HCl 25 10-23 tablet (25 Sey bold MG oral 00:00: 05:59 mg total) - Tablet 00 :00 by mouth Externa nightly l amitriptyli 2023- Yes [id number] 25mg Take 1 [place] [facility] (Elavil) 10-23 tablet (25 H ealth 25 MG 00:00: 05:59 mg total) tablet 00 :00 by mouth every night. LISINOPRIL 0 Yes [id number] TOME 1 U nivers 10 mg 1-24 TABLETA ity of tablet 00:00: POR [place] BOCA CADA Medical DARIEL Branch LISINOPRIL 2022-0 Yes [id number] TOME 1 U nivers 10 mg 1-24 TABLETA ity of tablet 00:00: POR [facility] BOCA CADA Medical DARIEL Branch LISINOPRIL 2022-0 Yes [id number] TOME 1 U nivers 10 mg 1-24 TABLETA ity of tablet 00:00: POR [place] BOCA CADA Medical DARIEL Branch LISINOPRIL 2022-0 Yes [id number] TOME 1 U nivers 10 mg 1-24 TABLETA ity of tablet 00:00: POR [facility] Medical DARIEL Branch LISINOPRIL 2022-0 Yes [id number] TOME 1 U nivers 10 mg 1-24 TABLETA ity of tablet 00:00: POR [facility] Medical DARIEL Branch LISINOPRIL 2022-0 Yes [id number] TOME 1 U nivers 10 mg 1-24 TABLETA ity of tablet 00:00: POR [place] BOCA CADA Medical DARIEL Branch LISINOPRIL 2022-0 Yes [id number] TOME 1 U nivers 10 mg 1-24 TABLETA ity of tablet 00:00: POR [facility] Medical DARIEL Branch LISINOPRIL 2023-0 Yes [id number] TOME 1 U nivers 10 mg 1-24 TABLETA ity of tablet 00:00: POR [facility] Medical DARIEL Branch LISINOPRIL 3-0 Yes [id number] TOME 1 U nivers 10 mg 1-24 TABLETA ity of tablet 00:00: POR [facility] Medical DARIEL Branch LISINOPRIL 2022-0 Yes [id number] TOME 1 U nivers 10 mg 1-24 TABLETA ity of tablet 00:00: POR [facility] Medical DARIEL Branch LISINOPRIL 2022-0 Yes [id number] TOME 1 U nivers 10 mg 1-24 TABLETA ity of tablet 00:00: POR [facility] Medical DARIEL Branch LISINOPRIL 2022-0 Yes [id number] TOME 1 U nivers 10 mg 1-24 TABLETA ity of tablet 00:00: POR [facility] Medical DARIEL Branch LISINOPRIL 3-0 Yes [id number] TOME 1 U nivers 10 mg 1-24 TABLETA ity of tablet 00:00: POR [facility] [facility] DARIEL Branch LISINOPRIL 3-0 Yes [id number] TOME 1 U nivers 10 mg 1-24 TABLETA ity of tablet 00:00: POR [facility] Medical DARIEL Branch LISINOPRIL 3-0 Yes [id number] TOME 1 U nivers 10 mg 1-24 TABLETA ity of tablet 00:00: POR [facility] DARIEL Branch LISINOPRIL 3-0 Yes [id number] TOME 1 U nivers 10 mg 1-24 TABLETA ity of tablet 00:00: POR [facility] Medical DARIEL Branch LISINOPRIL 3-0 Yes [id number] TOME 1 U nivers 10 mg 1-24 TABLETA ity of tablet 00:00: POR [place] [facility] Medical DARIEL Branch LISINOPRIL 3-0 Yes [id number] TOME 1 U nivers 10 mg 1-24 TABLETA ity of tablet 00:00: POR [facility] Branch LISINOPRIL 0 Yes [id number] TOME 1 U nivers 10 mg 1-24 TABLETA ity of tablet 00:00: POR [facility] Branch LISINOPRIL 2022-0 Yes [id number] TOME 1 U nivers 10 mg 1-24 TABLETA ity of tablet 00:00: POR [facility] gabapentin 2022-0 Yes [place] (Neurontin) 1-17 Health 300 MG 00:00: capsule 00 Ondansetron 2022-0 Yes 4mg Q.[id number] Take 4 mg Melinda HCl 4 MG 1-10 [id number] by mouth S eybold oral Tablet 14:24: 3D every 8 - 58 hours as Externa needed l Ondansetron 2022-0 Yes 4mg Q.[id number] Take 4 mg Melinda HCl 4 MG 1-10 [id number] by mouth S eybold oral Tablet 14:24: 3D every 8 - 58 hours as Externa needed l Pravastatin 2022-0 Yes 10mg Take 10 mg Melinda Sodium 10 1-10 by mouth Seybol d MG oral 14:24: daily - Tablet 48 Externa l Pravastatin 2022-0 Yes 10mg Take 10 mg Melinda Sodium 10 1-10 by mouth Seybol d MG oral 14:24: daily - Tablet 48 Externa l Baclofen 5 2022-0 Yes 5mg Take 5 mg [place] MG oral 1-10 by mouth 2 Seybol d Tablet 14:24: times - 38 daily Externa l Topiramate 2022-0 Yes 25mg Take 25 mg K elsey 25 MG oral 1-10 by mouth 2 Sey bold Tablet 14:24: times - 17 daily Externa l Pantoprazol 2022-0 Yes 40mg Take 40 mg Melinda e Sodium 40 1-10 by mouth Seyb old MG oral 14:24: daily - Tablet 02 Externa Delayed l Response Pantoprazol 2022-0 Yes 40mg Take 40 mg Melinda e Sodium 40 1-10 by mouth Seyb old MG oral 14:24: daily - Tablet 02 Externa Delayed l Response Lisinopril 2022-0 Yes 10mg Take 10 mg K elsey 10 MG oral 1-10 by mouth Seybo ld Tablet 14:23: daily - 47 Externa l Lisinopril Yes 10mg Take 10 mg K elsey 10 MG oral 1-10 by mouth Seybo ld Tablet 14:23: daily - 47 Externa l Gabapentin Yes 300mg Take 300 [place] 300 MG oral 1-10 mg by Seybold Capsule 14:23: mouth 4 - 29 pill every Externa am, 3 l pills every noontime and 4 pills every pm Gabapentin Yes 300mg Take 300 [place] 300 MG oral 1-10 mg by Seybold Capsule 14:23: mouth 4 - 29 pill every Externa am, 3 l pills every noontime and 4 pills every pm Linzess 145 2021-09 Yes 1{capsu QD Take 1 U T MCG capsule 2 le} capsule by He alth 00:00: mouth 1 00 (one) time each day. linaCLOtide 2021-09 No 145ug Take 1 [place] (Linzess) 2-13 04-10 capsule Seybol d 145 MCG 00:00: 00:00 (145 mcg - oral 00 :00 total) by Externa Capsule mouth l daily sumatriptan 2021-09 Yes [id number] 100mg Take 1 [facility] 100 mg 1-16 tablet by ity of tablet 00:00: mouth as [place] 00 needed for Medical Migraine. Branch lisinopriL 2021-09 Yes [id number] 10mg Take 1 U nivers 10 mg 1-16 tablet by ity of tablet 00:00: mouth [place] 00 daily. Medical Branch sumatriptan 2021-09 Yes [id number] 100mg Take 1 [facility] 100 mg 1-16 tablet by ity of tablet 00:00: mouth as [place] 00 needed for Medical Migraine. Branch lisinopriL 2021-09 Yes [id number] 10mg Take 1 U nivers 10 mg 1-16 tablet by ity of tablet 00:00: mouth [place] 00 daily. Medical Branch sumatriptan 2021-09 Yes [id number] 100mg Take 1 [facility] 100 mg 1-16 tablet by ity of tablet 00:00: mouth as [place] 00 needed for Medical Migraine. Branch lisinopriL 2021-09 Yes [id number] 10mg Take 1 U nivers 10 mg 1-16 tablet by ity of tablet 00:00: mouth [place] 00 daily. Medical Branch sumatriptan 2021-09 Yes [id number] 100mg Take 1 [facility] 100 mg 1-16 tablet by ity of tablet 00:00: mouth as [place] 00 needed for Medical Migraine. Branch lisinopriL 2021-09 Yes [id number] 10mg Take 1 U nivers 10 mg 1-16 tablet by ity of tablet 00:00: mouth [place] 00 daily. Medical Branch sumatriptan 2021-09 Yes [id number] 100mg Take 1 [facility] 100 mg 1-16 tablet by ity of tablet 00:00: mouth as [place] 00 needed for Medical Migraine. Branch lisinopriL 2021-09 Yes [id number] 10mg Take 1 U nivers 10 mg 1-16 tablet by ity of tablet 00:00: mouth [place] 00 daily. Medical Branch sumatriptan 2021-09 Yes [id number] 100mg Take 1 [facility] 100 mg 1-16 tablet by ity of tablet 00:00: mouth as [place] 00 needed for Medical Migraine. Branch lisinopriL 2021-09 Yes [id number] 10mg Take 1 U nivers 10 mg 1-16 tablet by ity of tablet 00:00: mouth [place] 00 daily. Medical Branch sumatriptan 2021-09 Yes [id number] 100mg Take 1 [facility] 100 mg 1-16 tablet by ity of tablet 00:00: mouth as [place] 00 needed for Medical Migraine. Branch lisinopriL 2021-09 Yes [id number] 10mg Take 1 U nivers 10 mg 1-16 tablet by ity of tablet 00:00: mouth [place] 00 daily. Medical Branch sumatriptan 2021-09 Yes [id number] 100mg Take 1 [facility] 100 mg 1-16 tablet by ity of tablet 00:00: mouth as [place] 00 needed for Medical Migraine. Branch lisinopriL 2021-09 Yes [id number] 10mg Take 1 U nivers 10 mg 1-16 tablet by ity of tablet 00:00: mouth [place] 00 daily. Medical Branch sumatriptan 2021-09 Yes [id number] 100mg Take 1 [facility] 100 mg 1-16 tablet by ity of tablet 00:00: mouth as [place] 00 needed for Medical Migraine. Branch lisinopriL 2021-09 Yes [id number] 10mg Take 1 U nivers 10 mg 1-16 tablet by ity of tablet 00:00: mouth [place] 00 daily. Medical Branch sumatriptan 2021-09 Yes [id number] 100mg Take 1 [facility] 100 mg 1-16 tablet by ity of tablet 00:00: mouth as [place] 00 needed for Medical Migraine. Branch lisinopriL 2021-09 Yes [id number] 10mg Take 1 U nivers 10 mg 1-16 tablet by ity of tablet 00:00: mouth [place] 00 daily. Medical Branch sumatriptan 2021-09 Yes [id number] 100mg Take 1 [facility] 100 mg 1-16 tablet by ity of tablet 00:00: mouth as [place] 00 needed for Medical Migraine. Branch lisinopriL 2021-09 Yes [id number] 10mg Take 1 U nivers 10 mg 1-16 tablet by ity of tablet 00:00: mouth [place] 00 daily. Medical Branch sumatriptan 2021-09 Yes [id number] 100mg Take 1 [facility] 100 mg 1-16 tablet by ity of tablet 00:00: mouth as [place] 00 needed for Medical Migraine. Branch lisinopriL 2021-09 Yes [id number] 10mg Take 1 U nivers 10 mg 1-16 tablet by ity of tablet 00:00: mouth [place] 00 daily. Medical Branch sumatriptan 2021-09 Yes [id number] 100mg Take 1 [facility] 100 mg 1-16 tablet by ity of tablet 00:00: mouth as [place] 00 needed for Medical Migraine. Branch lisinopriL 2021-09 Yes [id number] 10mg Take 1 U nivers 10 mg 1-16 tablet by ity of tablet 00:00: mouth [place] 00 daily. Medical Branch sumatriptan 2021-09 Yes [id number] 100mg Take 1 [facility] 100 mg 1-16 tablet by ity of tablet 00:00: mouth as [place] 00 needed for Medical Migraine. Branch lisinopriL 2021-09 Yes [id number] 10mg Take 1 U nivers 10 mg 1-16 tablet by ity of tablet 00:00: mouth [place] 00 daily. Medical Branch sumatriptan 2021-09 Yes [id number] 100mg Take 1 [facility] 100 mg 1-16 tablet by ity of tablet 00:00: mouth as [place] 00 needed for Medical Migraine. Branch lisinopriL 2021-09 Yes [id number] 10mg Take 1 U nivers 10 mg 1-16 tablet by ity of tablet 00:00: mouth [place] 00 daily. Medical Branch sumatriptan 2021-09 Yes [id number] 100mg Take 1 [facility] 100 mg 1-16 tablet by ity of tablet 00:00: mouth as [place] 00 needed for Medical Migraine. Branch lisinopriL 2021-09 Yes [id number] 10mg Take 1 U nivers 10 mg 1-16 tablet by ity of tablet 00:00: mouth [place] 00 daily. Medical Branch sumatriptan 2021-09 Yes [id number] 100mg Take 1 [facility] 100 mg 1-16 tablet by ity of tablet 00:00: mouth as [place] 00 needed for Medical Migraine. Branch lisinopriL 2021-09 Yes [id number] 10mg Take 1 U nivers 10 mg 1-16 tablet by ity of tablet 00:00: mouth [place] 00 daily. Medical Branch sumatriptan 2021-09 Yes [id number] 100mg Take 1 [facility] 100 mg 1-16 tablet by ity of tablet 00:00: mouth as [place] 00 needed for Medical Migraine. Branch lisinopriL 2021-09 Yes [id number] 10mg Take 1 U nivers 10 mg 1-16 tablet by ity of tablet 00:00: mouth [place] 00 daily. Medical Branch sumatriptan 2021-09 Yes [id number] 100mg Take 1 [facility] 100 mg 1-16 tablet by ity of tablet 00:00: mouth as [place] 00 needed for Medical Migraine. Branch lisinopriL 2021-09 Yes [id number] 10mg Take 1 U nivers 10 mg 1-16 tablet by ity of tablet 00:00: mouth [place] 00 daily. Medical Branch sumatriptan 2021-09 Yes [id number] 100mg Take 1 [facility] 100 mg 1-16 tablet by ity of tablet 00:00: mouth as [place] 00 needed for Medical Migraine. Branch lisinopriL 2021-09 Yes [id number] 10mg Take 1 U nivers 10 mg 1-16 tablet by ity of tablet 00:00: mouth [place] 00 daily. Medical Branch sumatriptan 2021-09 Yes [id number] 100mg Take 1 [facility] 100 mg 1-16 tablet by ity of tablet 00:00: mouth as [place] 00 needed for Medical Migraine. Branch lisinopriL 2021-09 Yes [id number] 10mg Take 1 U nivers 10 mg 1-16 tablet by ity of tablet 00:00: mouth [place] 00 daily. Medical Branch sumatriptan 2021-09 Yes [id number] 100mg Take 1 [facility] 100 mg 1-16 tablet by ity of tablet 00:00: mouth as [place] 00 needed for Medical Migraine. Branch lisinopriL 2021-09 Yes [id number] 10mg Take 1 U nivers 10 mg 1-16 tablet by ity of tablet 00:00: mouth [place] 00 daily. Medical Branch sumatriptan 2021-09 Yes [id number] 100mg Take 1 [facility] 100 mg 1-16 tablet by ity of tablet 00:00: mouth as [place] 00 needed for Medical Migraine. Branch lisinopriL 2021-09 Yes [id number] 10mg Take 1 U nivers 10 mg 1-16 tablet by ity of tablet 00:00: mouth [place] 00 daily. Medical Branch sumatriptan 2021-09 Yes [id number] 100mg Take 1 [facility] 100 mg 1-16 tablet by ity of tablet 00:00: mouth as [place] 00 needed for Medical Migraine. Branch sumatriptan 2021-09 Yes [id number] 100mg Take 1 [facility] 100 mg 1-16 tablet by ity of tablet 00:00: mouth as [place] 00 needed for Medical Migraine. Branch sumatriptan 2021-09 Yes [id number] 100mg Take 1 [facility] 100 mg 1-16 tablet by ity of tablet 00:00: mouth as [place] 00 needed for Medical Migraine. Branch sumatriptan 2021-09 Yes [id number] 100mg Take 1 [facility] 100 mg 1-16 tablet by ity of tablet 00:00: mouth as [place] 00 needed for Medical Migraine. Branch sumatriptan 2021-09 Yes [id number] 100mg Take 1 [facility] 100 mg 1-16 tablet by ity of tablet 00:00: mouth as [place] 00 needed for Medical Migraine. Branch sumatriptan 2021-09 Yes [id number] 100mg Take 1 [facility] 100 mg 1-16 tablet by ity of tablet 00:00: mouth as [place] 00 needed for Medical Migraine. Branch sumatriptan 2021-09 Yes [id number] 100mg Take 1 [facility] 100 mg 1-16 tablet by ity of tablet 00:00: mouth as [place] 00 needed for Medical Migraine. Branch sumatriptan 2021-09 Yes [id number] 100mg Take 1 [facility] 100 mg 1-16 tablet by ity of tablet 00:00: mouth as [place] 00 needed for Medical Migraine. Branch sumatriptan 2021-09 Yes [id number] 100mg Take 1 [facility] 100 mg 1-16 tablet by ity of tablet 00:00: mouth as [place] 00 needed for Medical Migraine. Branch sumatriptan 2021-09 Yes [id number] 100mg Take 1 [facility] 100 mg 1-16 tablet by ity of tablet 00:00: mouth as [place] 00 needed for Medical Migraine. Branch sumatriptan 2021-09 Yes [id number] 100mg Take 1 [facility] 100 mg 1-16 tablet by ity of tablet 00:00: mouth as [place] 00 needed for Medical Migraine. Branch sumatriptan 2021-09 Yes [id number] 100mg Take 1 [facility] 100 mg 1-16 tablet by ity of tablet 00:00: mouth as [place] 00 needed for Medical Migraine. Branch sumatriptan 2021-09 Yes [id number] 100mg Take 1 [facility] 100 mg 1-16 tablet by ity of tablet 00:00: mouth as [place] 00 needed for Medical Migraine. Branch sumatriptan 2021-09 Yes [id number] 100mg Take 1 [facility] 100 mg 1-16 tablet by ity of tablet 00:00: mouth as [place] 00 needed for Medical Migraine. Branch sumatriptan 2021-09 Yes [id number] 100mg Take 1 [facility] 100 mg 1-16 tablet by ity of tablet 00:00: mouth as [place] 00 needed for Medical Migraine. Branch sumatriptan 2021-09 Yes [id number] 100mg Take 1 [facility] 100 mg 1-16 tablet by ity of tablet 00:00: mouth as [place] 00 needed for Medical Migraine. Branch sumatriptan 2021-09 Yes [id number] 100mg Take 1 [facility] 100 mg 1-16 tablet by ity of tablet 00:00: mouth as [place] 00 needed for Medical Migraine. Branch sumatriptan 2021-09 Yes [id number] 100mg Take 1 [facility] 100 mg 1-16 tablet by ity of tablet 00:00: mouth as [place] 00 needed for Medical Migraine. Branch sumatriptan 2021- Yes [id number] 100mg Take 1 [facility] 100 mg 1-16 tablet by ity of tablet 00:00: mouth as [place] 00 needed for Medical Migraine. Branch sumatriptan 2021-09 Yes [id number] 100mg Take 1 [facility] 100 mg 1-16 tablet by ity of tablet 00:00: mouth as [place] 00 needed for Medical Migraine. Branch sumatriptan 2021-09 Yes [id number] 100mg Take 1 [facility] 100 mg 1-16 tablet by ity of tablet 00:00: mouth as [place] 00 needed for Medical Migraine. Branch Sumatriptan 2021-09 Yes 100mg Take 1 Roshan sey Succinate 1-16 tablet Seybold 100 MG oral 00:00: (100 mg - Tablet 00 total) by Externa mouth as l needed lisinopriL 2021-09- No [id number] 10mg Take 1 [facility] 10 mg 1-16 -24 tablet by ity of tablet 00:00: 00:00 mouth [place] 00 :00 daily. Medical Branch cholecalcif 2021-09 Yes QD Take by [place] deb 0-26 mouth 1 Health (Vitamin 09:37: (one) time D-3) 10 MCG 29 each day. (400 UNIT) capsule pregabalin 2021-09 Yes 75mg Take 75 mg U nivers 75 mg 0-26 by mouth 2 ity of capsule 00:00: (two) [place] 00 times Medical daily. Branch pregabalin 2021-09 Yes 75mg Take 75 mg U nivers 75 mg 0-26 by mouth 2 ity of capsule 00:00: (two) [place] 00 times Medical daily. Branch pregabalin 2021-09 Yes 75mg Take 75 mg U nivers 75 mg 0-26 by mouth 2 ity of capsule 00:00: (two) [place] 00 times Medical daily. Branch pregabalin 2021-09 Yes 75mg Take 75 mg U nivers 75 mg 0-26 by mouth 2 ity of capsule 00:00: (two) [place] 00 times Medical daily. Branch pregabalin 2021-09 Yes 75mg Take 75 mg U nivers 75 mg 0-26 by mouth 2 ity of capsule 00:00: (two) [place] 00 times Medical daily. Branch pregabalin 2021-09 Yes 75mg Take 75 mg U nivers 75 mg 0-26 by mouth 2 ity of capsule 00:00: (two) [place] 00 times Medical daily. Branch pregabalin 2021-09 Yes 75mg Take 75 mg U nivers 75 mg 0-26 by mouth 2 ity of capsule 00:00: (two) [place] 00 times Medical daily. Branch pregabalin 2021-09 Yes 75mg Take 75 mg U nivers 75 mg 0-26 by mouth 2 ity of capsule 00:00: (two) [place] 00 times Medical daily. Branch pregabalin 2022-1 Yes 75mg Take 75 mg U nivers 75 mg 0-26 by mouth 2 ity of capsule 00:00: (two) [place] 00 times Medical daily. Branch pregabalin 2022-1 Yes 75mg Take 75 mg U nivers 75 mg 0-26 by mouth 2 ity of capsule 00:00: (two) [place] 00 times Medical daily. Branch pregabalin 2022-1 Yes 75mg Take 75 mg U nivers 75 mg 0-26 by mouth 2 ity of capsule 00:00: (two) [place] 00 times Medical daily. Branch pregabalin 2022-1 Yes 75mg Take 75 mg U nivers 75 mg 0-26 by mouth 2 ity of capsule 00:00: (two) [place] 00 times Medical daily. Branch pregabalin 2022-1 Yes 75mg Take 75 mg U nivers 75 mg 0-26 by mouth 2 ity of capsule 00:00: (two) [place] 00 times Medical daily. Branch pregabalin 2022-1 Yes 75mg Take 75 mg U nivers 75 mg 0-26 by mouth 2 ity of capsule 00:00: (two) [place] 00 times Medical daily. Branch pregabalin 2022-1 Yes 75mg Take 75 mg U nivers 75 mg 0-26 by mouth 2 ity of capsule 00:00: (two) [place] 00 times Medical daily. Branch pregabalin 2022-1 Yes 75mg Take 75 mg U nivers 75 mg 0-26 by mouth 2 ity of capsule 00:00: (two) [place] 00 times Medical daily. Branch pregabalin 2022-1 Yes 75mg Take 75 mg U nivers 75 mg 0-26 by mouth 2 ity of capsule 00:00: (two) [place] 00 times Medical daily. Branch pregabalin 2022-1 Yes 75mg Take 75 mg U nivers 75 mg 0-26 by mouth 2 ity of capsule 00:00: (two) [place] 00 times Medical daily. Branch pregabalin 2022-1 Yes 75mg Take 75 mg U nivers 75 mg 0-26 by mouth 2 ity of capsule 00:00: (two) [place] 00 times Medical daily. Branch pregabalin 2022-1 Yes 75mg Take 75 mg U nivers 75 mg 0-26 by mouth 2 ity of capsule 00:00: (two) [place] 00 times Medical daily. Branch pregabalin 2022-1 Yes 75mg Take 75 mg U nivers 75 mg 0-26 by mouth 2 ity of capsule 00:00: (two) [place] 00 times Medical daily. Branch pregabalin 2022-1 Yes 75mg Take 75 mg U nivers 75 mg 0-26 by mouth 2 ity of capsule 00:00: (two) [place] 00 times Medical daily. Branch pregabalin 2022-1 Yes 75mg Take 75 mg U nivers 75 mg 0-26 by mouth 2 ity of capsule 00:00: (two) [place] 00 times Medical daily. Branch pregabalin 2022-1 Yes 75mg Take 75 mg U nivers 75 mg 0-26 by mouth 2 ity of capsule 00:00: (two) [place] 00 times Medical daily. Branch pregabalin 2022-1 Yes 75mg Take 75 mg U nivers 75 mg 0-26 by mouth 2 ity of capsule 00:00: (two) [place] 00 times Medical daily. Branch pregabalin 2022-1 Yes 75mg Take 75 mg U nivers 75 mg 0-26 by mouth 2 ity of capsule 00:00: (two) [place] 00 times Medical daily. Branch pregabalin 2022-1 Yes 75mg Take 75 mg U nivers 75 mg 0-26 by mouth 2 ity of capsule 00:00: (two) [place] 00 times Medical daily. Branch pregabalin 2022-1 Yes 75mg Take 75 mg U nivers 75 mg 0-26 by mouth 2 ity of capsule 00:00: (two) [place] 00 times Medical daily. Branch pregabalin 2022-1 Yes 75mg Take 75 mg U nivers 75 mg 0-26 by mouth 2 ity of capsule 00:00: (two) [place] 00 times Medical daily. Branch pregabalin 2022-1 Yes 75mg Take 75 mg U nivers 75 mg 0-26 by mouth 2 ity of capsule 00:00: (two) [place] 00 times Medical daily. Branch pregabalin 2022-1 Yes 75mg Take 75 mg U nivers 75 mg 0-26 by mouth 2 ity of capsule 00:00: (two) [place] 00 times Medical daily. Branch pregabalin 2022-1 Yes 75mg Take 75 mg U nivers 75 mg 0-26 by mouth 2 ity of capsule 00:00: (two) [place] 00 times Medical daily. Branch pregabalin 2022-1 Yes 75mg Take 75 mg U nivers 75 mg 0-26 by mouth 2 ity of capsule 00:00: (two) [place] 00 times Medical daily. Branch pregabalin 2022-1 Yes 75mg Take 75 mg U nivers 75 mg 0-26 by mouth 2 ity of capsule 00:00: (two) [place] 00 times Medical daily. Branch pregabalin 2022-1 Yes 75mg Take 75 mg U nivers 75 mg 0-26 by mouth 2 ity of capsule 00:00: (two) [place] 00 times Medical daily. Branch pregabalin 2022-1 Yes 75mg Take 75 mg U nivers 75 mg 0-26 by mouth 2 ity of capsule 00:00: (two) [place] 00 times Medical daily. Branch pregabalin 2022-1 Yes 75mg Take 75 mg U nivers 75 mg 0-26 by mouth 2 ity of capsule 00:00: (two) [place] 00 times Medical daily. Branch pregabalin 2022-1 Yes 75mg Take 75 mg U nivers 75 mg 0-26 by mouth 2 ity of capsule 00:00: (two) [place] 00 times Medical daily. Branch pregabalin 2022-1 Yes 75mg Take 75 mg U nivers 75 mg 0-26 by mouth 2 ity of capsule 00:00: (two) [place] 00 times Medical daily. Branch pregabalin 2022-1 Yes 75mg Take 75 mg U nivers 75 mg 0-26 by mouth 2 ity of capsule 00:00: (two) [place] 00 times Medical daily. Branch pregabalin 2022-1 Yes 75mg Take 75 mg U nivers 75 mg 0-26 by mouth 2 ity of capsule 00:00: (two) [place] 00 times Medical daily. Branch pregabalin 2022-1 Yes 75mg Take 75 mg [facility] nivers 75 mg 0-26 by mouth 2 ity of capsule 00:00: (two) [place] 00 times Medical daily. Branch pregabalin 2022-1 Yes 75mg Take 75 mg U nivers 75 mg 0-26 by mouth 2 ity of capsule 00:00: (two) [place] 00 times Medical daily. Branch pregabalin 2022-1 Yes 75mg Take 75 mg U nivers 75 mg 0-26 by mouth 2 ity of capsule 00:00: (two) [place] 00 times Medical daily. Branch pregabalin 2021-09 Yes 75mg Take 75 mg U nivers 75 mg 0-26 by mouth 2 ity of capsule 00:00: (two) [place] 00 times Medical daily. Branch pregabalin 2021-09 Yes 75mg Take 75 mg U nivers 75 mg 0-26 by mouth 2 ity of capsule 00:00: (two) [place] 00 times Medical daily. Branch pregabalin 2021-09 Yes 75mg Take 75 mg U nivers 75 mg 0-26 by mouth 2 ity of capsule 00:00: (two) [place] 00 times Medical daily. Branch Pregabalin 2021-09 Yes 75mg Take 1 [facility] 75 MG oral 0-26 capsule Seybol d Capsule 00:00: (75 mg - 00 total) by Externa mouth 2 l times daily pregabalin 2021-09- No [id number] 75mg Q.5D Take 1 [facility] (Lyrica) 75 0-26 10-27 capsule [facility] MG capsule 00:00: 04:59 (75 mg 00 :00 total) by mouth in the morning and 1 capsule (75 mg total) in the evening. pregabalin 2021-09- No [id number] 75mg Q.5D Take 1 [facility] (Lyrica) 75 0-26 01-31 capsule [facility] MG capsule 00:00: 00:00 (75 mg 00 :00 total) by mouth in the morning and 1 capsule (75 mg total) in the evening. tc 2021-09- No [id number] 1mCi 1 [facility] 99m-sulfur 0-07-11 millicurie it y of colloid 14:15: 13:45 , Oral, [place] oral 00 :00 ONCE, 1 Medical solution 1 dose, On Bran h millicurie 07/11/22 at 0915, Routine gabapentin 2021-09- No [facility] (Neurontin) 0-14 10-26 Health 300 MG 00:00: 00:00 capsule 00 :00 topiramate 2021-09 Yes 25mg Take 25 mg U nivers 25 mg 0-11 by mouth 2 ity of tablet 00:00: (two) [place] 00 times Medical daily. Branch topiramate 2022-1 Yes 25mg Take 25 mg U nivers 25 mg 0-11 by mouth 2 ity of tablet 00:00: (two) [place] 00 times Medical daily. Branch topiramate 2022-1 Yes 25mg Take 25 mg U nivers 25 mg 0-11 by mouth 2 ity of tablet 00:00: (two) [place] 00 times Medical daily. Branch topiramate 2022-1 Yes 25mg Take 25 mg [facility] nivers 25 mg 0-11 by mouth 2 ity of tablet 00:00: (two) [place] 00 times Medical daily. Branch topiramate 2022-1 Yes 25mg Take 25 mg U nivers 25 mg 0-11 by mouth 2 ity of tablet 00:00: (two) [place] 00 times Medical daily. Branch topiramate 2022-1 Yes 25mg Take 25 mg U nivers 25 mg 0-11 by mouth 2 ity of tablet 00:00: (two) [place] 00 times Medical daily. Branch topiramate 2022-1 Yes 25mg Take 25 mg U nivers 25 mg 0-11 by mouth 2 ity of tablet 00:00: (two) [place] 00 times Medical daily. Branch topiramate 2022-1 Yes 25mg Take 25 mg U nivers 25 mg 0-11 by mouth 2 ity of tablet 00:00: (two) [place] 00 times Medical daily. Branch topiramate 2022-1 Yes 25mg Take 25 mg U nivers 25 mg 0-11 by mouth 2 ity of tablet 00:00: (two) [place] 00 times Medical daily. Branch topiramate 2022-1 Yes 25mg Take 25 mg U nivers 25 mg 0-11 by mouth 2 ity of tablet 00:00: (two) [place] 00 times Medical daily. Branch topiramate 2022-1 Yes 25mg Take 25 mg U nivers 25 mg 0-11 by mouth 2 ity of tablet 00:00: (two) [place] 00 times Medical daily. Branch topiramate 2022-1 Yes 25mg Take 25 mg U nivers 25 mg 0-11 by mouth 2 ity of tablet 00:00: (two) [place] 00 times Medical daily. Branch topiramate 2022-1 Yes 25mg Take 25 mg U nivers 25 mg 0-11 by mouth 2 ity of tablet 00:00: (two) [place] 00 times Medical daily. Branch topiramate 2022-1 Yes 25mg Take 25 mg U nivers 25 mg 0-11 by mouth 2 ity of tablet 00:00: (two) [place] 00 times Medical daily. Branch topiramate 2022-1 Yes 25mg Take 25 mg U nivers 25 mg 0-11 by mouth 2 ity of tablet 00:00: (two) [place] 00 times Medical daily. Branch topiramate 2022-1 Yes 25mg Take 25 mg [facility] nivers 25 mg 0-11 by mouth 2 ity of tablet 00:00: (two) [place] 00 times Medical daily. Branch topiramate 2022-1 Yes 25mg Take 25 mg U nivers 25 mg 0-11 by mouth 2 ity of tablet 00:00: (two) [place] 00 times Medical daily. Branch topiramate 2022-1 Yes 25mg Take 25 mg U nivers 25 mg 0-11 by mouth 2 ity of tablet 00:00: (two) [place] 00 times Medical daily. Branch topiramate 2022-1 Yes 25mg Take 25 mg U nivers 25 mg 0-11 by mouth 2 ity of tablet 00:00: (two) [place] 00 times Medical daily. Branch topiramate 2022-1 Yes 25mg Take 25 mg U nivers 25 mg 0-11 by mouth 2 ity of tablet 00:00: (two) [place] 00 times Medical daily. Branch topiramate 2022-1 Yes 25mg Take 25 mg U nivers 25 mg 0-11 by mouth 2 ity of tablet 00:00: (two) [place] 00 times Medical daily. Branch topiramate 2022-1 Yes 25mg Take 25 mg U nivers 25 mg 0-11 by mouth 2 ity of tablet 00:00: (two) [place] 00 times Medical daily. Branch topiramate 2022-1 Yes 25mg Take 25 mg U nivers 25 mg 0-11 by mouth 2 ity of tablet 00:00: (two) [place] 00 times Medical daily. Branch topiramate 2022-1 Yes 25mg Take 25 mg U nivers 25 mg 0-11 by mouth 2 ity of tablet 00:00: (two) [place] 00 times Medical daily. Branch topiramate 2022-1 Yes 25mg Take 25 mg U nivers 25 mg 0-11 by mouth 2 ity of tablet 00:00: (two) [place] 00 times Medical daily. Branch topiramate 2022-1 Yes 25mg Take 25 mg U nivers 25 mg 0-11 by mouth 2 ity of tablet 00:00: (two) [place] 00 times Medical daily. Branch topiramate 2022-1 Yes 25mg Take 25 mg U nivers 25 mg 0-11 by mouth 2 ity of tablet 00:00: (two) [place] 00 times Medical daily. Branch topiramate 2022-1 Yes 25mg Take 25 mg U nivers 25 mg 0-11 by mouth 2 ity of tablet 00:00: (two) [place] 00 times Medical daily. Branch topiramate 2022-1 Yes 25mg Take 25 mg U nivers 25 mg 0-11 by mouth 2 ity of tablet 00:00: (two) [place] 00 times Medical daily. Branch topiramate 2022-1 Yes 25mg Take 25 mg U nivers 25 mg 0-11 by mouth 2 ity of tablet 00:00: (two) [place] 00 times Medical daily. Branch topiramate 2022-1 Yes 25mg Take 25 mg U nivers 25 mg 0-11 by mouth 2 ity of tablet 00:00: (two) [place] 00 times Medical daily. Branch topiramate 2022-1 Yes 25mg Take 25 mg U nivers 25 mg 0-11 by mouth 2 ity of tablet 00:00: (two) [place] 00 times Medical daily. Branch topiramate 2022-1 Yes 25mg Take 25 mg U nivers 25 mg 0-11 by mouth 2 ity of tablet 00:00: (two) [place] 00 times Medical daily. Branch topiramate 2022-1 Yes 25mg Take 25 mg [facility] nivers 25 mg 0-11 by mouth 2 ity of tablet 00:00: (two) [place] 00 times Medical daily. Branch topiramate 2022-1 Yes 25mg Take 25 mg U nivers 25 mg 0-11 by mouth 2 ity of tablet 00:00: (two) [place] 00 times Medical daily. Branch topiramate 2022-1 Yes 25mg Take 25 mg U nivers 25 mg 0-11 by mouth 2 ity of tablet 00:00: (two) [place] 00 times Medical daily. Branch topiramate 2022-1 Yes 25mg Take 25 mg U nivers 25 mg 0-11 by mouth 2 ity of tablet 00:00: (two) [place] 00 times Medical daily. Branch topiramate 2021- Yes 25mg Take 25 mg U nivers 25 mg 0-11 by mouth 2 ity of tablet 00:00: (two) [place] 00 times Medical daily. Branch topiramate 2-1 Yes 25mg Take 25 mg U nivers 25 mg 0-11 by mouth 2 ity of tablet 00:00: (two) [place] 00 times Medical daily. Branch topiramate 2-1 Yes 25mg Take 25 mg U nivers 25 mg 0-11 by mouth 2 ity of tablet 00:00: (two) [place] 00 times Medical daily. Branch topiramate 2021-1 Yes 25mg Take 25 mg U nivers 25 mg 0-11 by mouth 2 ity of tablet 00:00: (two) [place] 00 times Medical daily. Branch topiramate 2021- Yes 25mg Take 25 mg U nivers 25 mg 0-11 by mouth 2 ity of tablet 00:00: (two) [place] 00 times Medical daily. Branch topiramate 2021- Yes 25mg Take 25 mg [facility] nivers 25 mg 0-11 by mouth 2 ity of tablet 00:00: (two) [place] 00 times Medical daily. Branch topiramate 2021- Yes 25mg Take 25 mg U nivers 25 mg 0-11 by mouth 2 ity of tablet 00:00: (two) [place] 00 times Medical daily. Branch topiramate 2021- Yes 25mg Take 25 mg U nivers 25 mg 0-11 by mouth 2 ity of tablet 00:00: (two) [place] 00 times Medical daily. Branch topiramate 2021- Yes 25mg Take 25 mg U nivers 25 mg 0-11 by mouth 2 ity of tablet 00:00: (two) [place] 00 times Medical daily. Branch topiramate 2021- Yes 25mg Take 25 mg U nivers 25 mg 0-11 by mouth 2 ity of tablet 00:00: (two) [place] 00 times Medical daily. Branch topiramate 2021- Yes 25mg Take 25 mg [facility] (Topamax) 0-11 by mouth. [facility]alt [facility] 25 MG 00:00: tablet 00 Topiramate 2021- 2023- No 25mg Take 1 [facility] ey 25 MG oral 0-11 04-10 tablet (25 Se ybold Tablet 00:00: 00:00 mg total) - 00 :00 by mouth 2 Externa times l daily BOTOX 200 2022-0 Yes 200U 200 Units. Un yesi unit 06-21 ity of 00:00: [place] 00 Medical Branch BOTOX 200 2022-0 Yes 200U 200 Units. Un yesi unit 06-21 ity of 00:00: 00 Medical Branch BOTOX 200 2022-0 Yes 200U 200 Units. Un yesi unit 06-21 ity of 00:00: [place] 00 Medical Branch BOTOX 200 2022-0 Yes 200U 200 Units. Un yesi unit 06-21 ity of 00:00: 00 Medical Branch BOTOX 200 2-0 Yes 200U 200 Units. Un yesi unit 06-21 ity of 00:00: 00 Medical Branch BOTOX 200 2022-0 Yes 200U 200 Units. Un yesi unit 06-21 ity of 00:00: 00 Medical Branch BOTOX 200 2022-0 Yes 200U 200 Units. Un yesi unit 06-21 ity of 00:00: [place] 00 Medical Branch BOTOX 200 2022-0 Yes 200U 200 Units. Un yesi unit 06-21 ity of 00:00: 00 Medical Branch BOTOX 200 2-0 Yes 200U 200 Units. Un yesi unit 06-21 ity of 00:00: [place] 00 Medical Branch BOTOX 200 2022-0 Yes 200U 200 Units. Un yesi unit 06-21 ity of 00:00: 00 Medical Branch BOTOX 200 2022-0 Yes 200U 200 Units. Un yesi unit 06-21 ity of 00:00: [place] 00 Medical Branch BOTOX 200 2022-0 Yes 200U 200 Units. Un yesi unit 06-21 ity of 00:00: 00 Medical Branch BOTOX 200 2022-0 Yes 200U 200 Units. Un yesi unit 06-21 ity of 00:00: [place] 00 Medical Branch BOTOX 200 2022-0 Yes 200U 200 Units. Un yesi unit 06-21 ity of 00:00: 00 Medical Branch BOTOX 200 2022-0 Yes 200U 200 Units. Un yesi unit 06-21 ity of 00:00: [place] 00 Medical Branch BOTOX 200 2022-0 Yes 200U 200 Units. Un yesi unit 06-21 ity of 00:00: [place] 00 Medical Branch BOTOX 200 2022-0 Yes 200U 200 Units. Un yesi unit 06-21 ity of 00:00: [place] 00 Medical Branch BOTOX 200 2022-0 Yes 200U 200 Units. Un yesi unit 06-21 ity of 00:00: [place] 00 Medical Branch BOTOX 200 2022-0 Yes 200U 200 Units. Un yesi unit 06-21 ity of 00:00: [place] 00 Medical Branch BOTOX 200 2022-0 Yes 200U 200 Units. Un yesi unit 06-21 ity of 00:00: [place] 00 Medical Branch BOTOX 200 2022-0 Yes 200U 200 Units. Un yesi unit 06-21 ity of 00:00: [place] 00 Medical Branch BOTOX 200 2022-0 Yes 200U 200 Units. Un yesi unit 06-21 ity of 00:00: [place] 00 Medical Branch BOTOX 200 2022-0 Yes 200U 200 Units. Un yesi unit 06-21 ity of 00:00: [place] 00 Medical Branch BOTOX 200 2022-0 Yes 200U 200 Units. Un yesi unit 06-21 ity of 00:00: [place] 00 Medical Branch BOTOX 200 2022-0 Yes 200U 200 Units. Un yesi unit 06-21 ity of 00:00: [place] 00 Medical Branch BOTOX 200 2022-0 Yes 200U 200 Units. Un yesi unit 06-21 ity of 00:00: [place] 00 Medical Branch BOTOX 200 2022-0 Yes 200U 200 Units. Un yesi unit 06-21 ity of 00:00: [place] 00 Medical Branch BOTOX 200 2022-0 Yes 200U 200 Units. Un yesi unit 06-21 ity of 00:00: [place] 00 Medical Branch BOTOX 200 2022-0 Yes 200U 200 Units. Un yesi unit 06-21 ity of 00:00: [place] 00 Medical Branch BOTOX 200 2022-0 Yes 200U 200 Units. Un yesi unit 06-21 ity of 00:00: [place] 00 Medical Branch BOTOX 200 2022-0 Yes 200U 200 Units. Un yesi unit 06-21 ity of 00:00: [place] 00 Medical Branch BOTOX 200 2022-0 Yes 200U 200 Units. Un yesi unit 9 ity of 00:00: 00 Medical Branch BOTOX 200 2022-0 Yes 200U 200 Units. Un yesi unit 9 ity of 00:00: 00 Medical Branch BOTOX 200 2022-0 Yes 200U 200 Units. Un yesi unit 9 ity of 00:00: 00 Medical Branch BOTOX 200 2022-0 Yes 200U 200 Units. Un yesi unit 9 ity of 00:00: 00 Medical Branch BOTOX 200 2022-0 Yes 200U 200 Units. Un yesi unit 9 ity of 00:00: 00 Medical Branch BOTOX 200 2022-0 Yes 200U 200 Units. Un yesi unit 9 ity of 00:00: 00 Medical Branch BOTOX 200 2022-0 Yes 200U 200 Units. Un yesi unit 06-21 ity of 00:00: 00 Medical Branch BOTOX 200 2022-0 Yes 200U 200 Units. Un yesi unit 06-21 ity of 00:00: 00 Medical Branch BOTOX 200 2022-0 Yes 200U 200 Units. Un yesi unit 06-21 ity of 00:00: 00 Medical Branch BOTOX 200 2022-0 Yes 200U 200 Units. Un yesi unit 9 ity of 00:00: 00 Medical Branch BOTOX 200 2022-0 Yes 200U 200 Units. Un yesi unit 06-21 ity of 00:00: 00 Medical Branch BOTOX 200 2022-0 Yes 200U 200 Units. Un yesi unit 06-21 ity of 00:00: 00 Medical Branch BOTOX 200 2022-0 Yes 200U 200 Units. Un yesi unit 9 ity of 00:00: [place] 00 Medical Branch Baclofen 5 2021-0 Yes 1{tbl} Q.[id number] Take 1 [facility] tablet 06-20 [id number] tablet by Health 00:00: 3D mouth in 00 the morning and 1 tablet at noon and 1 tablet in the evening. Baclofen 5 2021-0 Yes 1{tbl} Q.[id number] Take 1 [facility] tablet 06-20 [id number] tablet by Health 00:00: 3D mouth in 00 the morning and 1 tablet at noon and 1 tablet in the evening. diphenhydrA 2022-0 Yes 25mg Take 25 mg [facility] MINE 9-23 by mouth ity of (BENADRYL) 11:53: every 6 [place] 25 mg 19 (six) Medical capsule hours as Branch needed for Allergies. mecobalamin 2022-0 Yes Take by [facility] vers (B12 ACTIVE 06-15 mouth. ity of ORAL) 11:53: [place] [address] Medical Branch cholecalcif 2021-0 Yes Take by [facility] vers deb, 06-15 mouth. ity of vitamin D3, 11:53: [place] (D3 Medical ORAL) Branch mv,li,iron 202-0 Yes Take by [facility] vers ,mn/folic 06-15 mouth. ity of acid/chol 11:53: [place] (HAIR-SKIN- 19 Medical NAILS, Branch PABA, ORAL) diphenhydrA 2022-0 Yes 25mg Take 25 mg [facility] MINE 9-23 by mouth ity of (BENADRYL) 11:53: every 6 [place] 25 mg 19 (six) Medical capsule hours as Branch needed for Allergies. mecobalamin 2022-0 Yes Take by [facility] vers (B12 ACTIVE 06-15 mouth. ity of ORAL) 11:53: [address] Branch cholecalcif 2021-0 Yes Take by [facility] vers deb, 06-15 mouth. ity of vitamin D3, 11:53: [place] (D3 Medical ORAL) Branch mv,li,iron 2021-0 Yes Take by [facility] vers ,mn/folic - mouth. ity of acid/chol 11:53: [place] (HAIR-SKIN- 19 Medical NAILS, Branch PABA, ORAL) diphenhydrA 2022-0 Yes 25mg Take 25 mg [facility] MINE 9-23 by mouth ity of (BENADRYL) 11:53: every 6 [place] 25 mg 19 (six) Medical capsule hours as Branch needed for Allergies. mecobalamin 2022-0 Yes Take by [facility] vers (B12 ACTIVE 06-15 mouth. ity of ORAL) 11:53: [address] Branch cholecalcif 2022-0 Yes Take by [facility] vers deb, 06-15 mouth. ity of vitamin D3, 11:53: [place] (D3 Medical ORAL) Branch mv,li,iron 2021-0 Yes Take by [facility] vers ,mn/folic 06-15 mouth. ity of acid/chol 11:53: [place] (HAIR-SKIN- 19 Medical NAILS, Branch PABA, ORAL) diphenhydrA 2021-0 Yes 25mg Take 25 mg [facility] MINE 9 by mouth ity of (BENADRYL) 11:53: every 6 [place] 25 mg 19 (six) Medical capsule hours as Branch needed for Allergies. mecobalamin 2021-0 Yes Take by [facility] vers (B12 ACTIVE 06-15 mouth. ity of ORAL) 11:53: [address] Branch cholecalcif 2021-0 Yes Take by [facility] vers deb, 06-15 mouth. ity of vitamin D3, 11:53: [place] (D3-1999 19 Medical ORAL) Branch mv,li,iron Yes Take by [facility] vers ,mn/folic 06-15 mouth. ity of acid/chol 11:53: [place] (HAIR-SKIN- 19 Medical NAILS, Branch PABA, ORAL) diphenhydrA 2021-0 Yes 25mg Take 25 mg [facility] MINE 06-15 by mouth ity of (BENADRYL) 11:53: every 6 [place] 25 mg 19 (six) Medical capsule hours as Branch needed for Allergies. mecobalamin 2021-0 Yes Take by [facility] vers (B12 ACTIVE 06-15 mouth. ity of ORAL) 11:53: [address] Branch cholecalcif 0 Yes Take by [facility] vers deb, 06-15 mouth. ity of vitamin D3, 11:53: [place] (D3-1999 Medical ORAL) Branch mv,li,iron 0 Yes Take by [facility] vers ,mn/folic 06-15 mouth. ity of acid/chol 11:53: [place] (HAIR-SKIN- 19 Medical NAILS, Branch PABA, ORAL) diphenhydrA 2-0 Yes 25mg Take 25 mg [facility] MINE 9 by mouth ity of (BENADRYL) 11:53: every 6 [place] 25 mg 19 (six) Medical capsule hours as Branch needed for Allergies. mecobalamin 2-0 Yes Take by [facility] vers (B12 ACTIVE 06-15 mouth. ity of ORAL) 11:53: [address] Branch cholecalcif 2021-0 Yes Take by [facility] vers deb, 06-15 mouth. ity of vitamin D3, 11:53: [place] (D3 Medical ORAL) Branch mv,li,iron 2021-0 Yes Take by [facility] vers ,mn/folic 06-15 mouth. ity of acid/chol 11:53: [place] (HAIR-SKIN- 19 Medical NAILS, Branch PABA, ORAL) diphenhydrA 2-0 Yes 25mg Take 25 mg [facility] MINE 9-23 by mouth ity of (BENADRYL) 11:53: every 6 [place] 25 mg 19 (six) Medical capsule hours as Branch needed for Allergies. mecobalamin 2-0 Yes Take by [facility] vers (B12 ACTIVE 06-15 mouth. ity of ORAL) 11:53: [address] Branch cholecalcif 2021-0 Yes Take by [facility] vers deb, 06-15 mouth. ity of vitamin D3, 11:53: [place] (D3 Medical ORAL) Branch mv,li,iron 0 Yes Take by [facility] vers ,mn/folic 06-15 mouth. ity of acid/chol 11:53: [place] (HAIR-SKIN- 19 Medical NAILS, Branch PABA, ORAL) diphenhydrA 2-0 Yes 25mg Take 25 mg [facility] MINE 06-15 by mouth ity of (BENADRYL) 11:53: every 6 [place] 25 mg 19 (six) Medical capsule hours as Branch needed for Allergies. mecobalamin 2-0 Yes Take by [facility] vers (B12 ACTIVE 06-15 mouth. ity of ORAL) 11:53: [address] Branch cholecalcif 2021-0 Yes Take by [facility] vers deb, 06-15 mouth. ity of vitamin D3, 11:53: [place] (D3 Medical ORAL) Branch mv,li,iron 2021-0 Yes Take by [facility] vers ,mn/folic 06-15 mouth. ity of acid/chol 11:53: [place] (HAIR-SKIN- 19 Medical NAILS, Branch PABA, ORAL) diphenhydrA 2-0 Yes 25mg Take 25 mg [facility] MINE 9-23 by mouth ity of (BENADRYL) 11:53: every 6 [place] 25 mg 19 (six) Medical capsule hours as Branch needed for Allergies. mecobalamin 2022-0 Yes Take by [facility] vers (B12 ACTIVE 06-15 mouth. ity of ORAL) 11:53: [place] [address] Medical Branch cholecalcif 0 Yes Take by [facility] vers deb, 06-15 mouth. ity of vitamin D3, 11:53: [place] (D3 Medical ORAL) Branch mv,li,iron Yes Take by [facility] vers ,mn/folic 06-15 mouth. ity of acid/chol 11:53: [place] (HAIR-SKIN- 19 Medical NAILS, Branch PABA, ORAL) diphenhydrA 2-0 Yes 25mg Take 25 mg [facility] MINE 06-15 by mouth ity of (BENADRYL) 11:53: every 6 [place] 25 mg 19 (six) Medical capsule hours as Branch needed for Allergies. mecobalamin 2021-0 Yes Take by [facility] vers (B12 ACTIVE 06-15 mouth. ity of ORAL) 11:53: [place] [address] Medical Branch cholecalcif 0 Yes Take by [facility] vers deb, 06-15 mouth. ity of vitamin D3, 11:53: [place] (D3 Medical ORAL) Branch mv,li,iron Yes Take by [facility] vers ,mn/folic 06-15 mouth. ity of acid/chol 11:53: [place] (HAIR-SKIN- 19 Medical NAILS, Branch PABA, ORAL) diphenhydrA 2021-0 Yes 25mg Take 25 mg [facility] MINE 06-15 by mouth ity of (BENADRYL) 11:53: every 6 [place] 25 mg 19 (six) Medical capsule hours as Branch needed for Allergies. mecobalamin 2021-0 Yes Take by [facility] vers (B12 ACTIVE 06-15 mouth. ity of ORAL) 11:53: [address] Branch cholecalcif 2021-0 Yes Take by [facility] vers deb, 06-15 mouth. ity of vitamin D3, 11:53: [place] (D3 Medical ORAL) Branch mv,li,iron Yes Take by [facility] vers ,mn/folic 06-15 mouth. ity of acid/chol 11:53: [place] (HAIR-SKIN- 19 Medical NAILS, Branch PABA, ORAL) diphenhydrA 2-0 Yes 25mg Take 25 mg [facility] MINE 06-15 by mouth ity of (BENADRYL) 11:53: every 6 [place] 25 mg 19 (six) Medical capsule hours as Branch needed for Allergies. mecobalamin 2022-0 Yes Take by [facility] vers (B12 ACTIVE 9- mouth. ity of ORAL) 11:53: [place] [address] Medical Branch cholecalcif 2021-0 Yes Take by [facility] vers deb, 9- mouth. ity of vitamin D3, 11:53: [place] (D3-1999 Medical ORAL) Branch mv,li,iron 202-0 Yes Take by [facility] vers ,mn/folic 9-23 mouth. ity of acid/chol 11:53: [place] (HAIR-SKIN- 19 Medical NAILS, Branch PABA, ORAL) diphenhydrA 2022-0 Yes 25mg Take 25 mg [facility] MINE 9-23 by mouth ity of (BENADRYL) 11:53: every 6 [place] 25 mg 19 (six) Medical capsule hours as Branch needed for Allergies. mecobalamin 2022-0 Yes Take by [facility] vers (B12 ACTIVE 9- mouth. ity of ORAL) 11:53: [address] Branch cholecalcif 2021-0 Yes Take by [facility] vers deb, - mouth. ity of vitamin D3, 11:53: [place] (D3 Medical ORAL) Branch mv,li,iron 2021-0 Yes Take by [facility] vers ,mn/folic 9-23 mouth. ity of acid/chol 11:53: [place] (HAIR-SKIN- 19 Medical NAILS, Branch PABA, ORAL) diphenhydrA 2-0 Yes 25mg Take 25 mg [facility] MINE 9-23 by mouth ity of (BENADRYL) 11:53: every 6 [place] 25 mg 19 (six) Medical capsule hours as Branch needed for Allergies. mecobalamin 2022-0 Yes Take by [facility] vers (B12 ACTIVE 9- mouth. ity of ORAL) 11:53: [address] Branch cholecalcif 2021-0 Yes Take by [facility] vers deb, 9-23 mouth. ity of vitamin D3, 11:53: [place] (D3-1999 19 Medical ORAL) Branch mv,li,iron 202-0 Yes Take by [facility] vers ,mn/folic 9-23 mouth. ity of acid/chol 11:53: [place] (HAIR-SKIN- 19 Medical NAILS, Branch PABA, ORAL) diphenhydrA 2022-0 Yes 25mg Take 25 mg [facility] MINE 9-23 by mouth ity of (BENADRYL) 11:53: every 6 [place] 25 mg 19 (six) Medical capsule hours as Branch needed for Allergies. mecobalamin 2022-0 Yes Take by [facility] vers (B12 ACTIVE 06-15 mouth. ity of ORAL) 11:53: [address] Branch cholecalcif 2021-0 Yes Take by [facility] vers deb, 06-15 mouth. ity of vitamin D3, 11:53: [place] (D3 19 Medical ORAL) Branch mv,li,iron 0 Yes Take by [facility] vers ,mn/folic 06-15 mouth. ity of acid/chol 11:53: [place] (HAIR-SKIN- 19 Medical NAILS, Branch PABA, ORAL) diphenhydrA 2-0 Yes 25mg Take 25 mg [facility] MINE 9-23 by mouth ity of (BENADRYL) 11:53: every 6 [place] 25 mg 19 (six) Medical capsule hours as Branch needed for Allergies. mecobalamin 2-0 Yes Take by [facility] vers (B12 ACTIVE 06-15 mouth. ity of ORAL) 11:53: [address] Branch cholecalcif 2021-0 Yes Take by [facility] vers deb, 06-15 mouth. ity of vitamin D3, 11:53: [place] (D3 Medical ORAL) Branch mv,li,iron 0 Yes Take by [facility] vers ,mn/folic - mouth. ity of acid/chol 11:53: [place] (HAIR-SKIN- 19 Medical NAILS, Branch PABA, ORAL) diphenhydrA 2-0 Yes 25mg Take 25 mg [facility] MINE 9-23 by mouth ity of (BENADRYL) 11:53: every 6 [place] 25 mg 19 (six) Medical capsule hours as Branch needed for Allergies. mecobalamin 2022-0 Yes Take by [facility] vers (B12 ACTIVE 9- mouth. ity of ORAL) 11:53: [address] Branch cholecalcif 2021-0 Yes Take by [facility] vers deb, 06-15 mouth. ity of vitamin D3, 11:53: [place] (D3 Medical ORAL) Branch mv,li,iron 0 Yes Take by [facility] vers ,mn/folic 06-15 mouth. ity of acid/chol 11:53: [place] (HAIR-SKIN- 19 Medical NAILS, Branch PABA, ORAL) diphenhydrA 2022-0 Yes 25mg Take 25 mg [facility] MINE 9- by mouth ity of (BENADRYL) 11:53: every 6 [place] 25 mg 19 (six) Medical capsule hours as Branch needed for Allergies. mecobalamin 2022-0 Yes Take by [facility] vers (B12 ACTIVE 06-15 mouth. ity of ORAL) 11:53: [place] [address] Medical Branch cholecalcif 2021-0 Yes Take by [facility] vers deb, 06-15 mouth. ity of vitamin D3, 11:53: [place] (D3 Medical ORAL) Branch mv,li,iron Yes Take by [facility] vers ,mn/folic - mouth. ity of acid/chol 11:53: [place] (HAIR-SKIN- 19 Medical NAILS, Branch PABA, ORAL) diphenhydrA 2-0 Yes 25mg Take 25 mg [facility] MINE 06-15 by mouth ity of (BENADRYL) 11:53: every 6 [place] 25 mg 19 (six) Medical capsule hours as Branch needed for Allergies. mecobalamin 2021-0 Yes Take by [facility] vers (B12 ACTIVE 06-15 mouth. ity of ORAL) 11:53: [address] Branch cholecalcif 2021-0 Yes Take by [facility] vers deb, 06-15 mouth. ity of vitamin D3, 11:53: [place] (D3-1999 Medical ORAL) Branch mv,li,iron 0 Yes Take by [facility] vers ,mn/folic 06-15 mouth. ity of acid/chol 11:53: [place] (HAIR-SKIN- 19 Medical NAILS, Branch PABA, ORAL) diphenhydrA 2-0 Yes 25mg Take 25 mg [facility] MINE 9-23 by mouth ity of (BENADRYL) 11:53: every 6 [place] 25 mg 19 (six) Medical capsule hours as Branch needed for Allergies. mecobalamin 2022-0 Yes Take by [facility] (B12 ACTIVE - mouth. ity of ORAL) 11:53: [address] Branch cholecalcif 2021-0 Yes Take by [facility] deb, - mouth. ity of vitamin D3, 11:53: [place] (D3 19 Medical ORAL) Branch mv,li,iron 2021-0 Yes Take by [facility] ,mn/folic - mouth. ity of acid/chol 11:53: [place] (HAIR-SKIN- 19 Medical NAILS, Branch PABA, ORAL) diphenhydrA 2-0 Yes 25mg Take 25 mg [facility] MINE 9-23 by mouth ity of (BENADRYL) 11:53: [place] 25 mg 19 (six) Medical capsule hours as Branch needed for Allergies. mecobalamin 2-0 Yes Take by [facility] (B12 ACTIVE 06-15 mouth. ity of ORAL) 11:53: [place] [address] [facility] Branch cholecalcif 0 Yes Take by [facility] deb, 06-15 mouth. ity of vitamin D3, 11:53: [place] (D3 Medical ORAL) Branch mv,li,iron 0 Yes Take by [facility] ,mn/folic - mouth. ity of acid/chol 11:53: [place] (HAIR-SKIN- 19 Medical NAILS, Branch PABA, ORAL) diphenhydrA 2-0 Yes 25mg Take 25 mg [facility] MINE 9-23 by mouth ity of (BENADRYL) 11:53: every 6 [place] 25 mg 19 (six) Medical capsule hours as Branch needed for Allergies. mecobalamin 2-0 Yes Take by [facility] (B12 ACTIVE 06-15 mouth. ity of ORAL) 11:53: [address] Branch cholecalcif 2021-0 Yes Take by [facility] deb, 06-15 mouth. ity of vitamin D3, 11:53: [place] (D3 Medical ORAL) Branch mv,li,iron 0 Yes Take by [facility] ,mn/folic 9- mouth. ity of acid/chol 11:53: [place] (HAIR-SKIN- 19 Medical NAILS, Branch PABA, ORAL) diphenhydrA 2-0 Yes 25mg Take 25 mg [facility] MINE 9-23 by mouth ity of (BENADRYL) 11:53: every 6 [place] 25 mg 19 (six) Medical capsule hours as Branch needed for Allergies. mecobalamin 2022-0 Yes Take by [facility] (B12 ACTIVE 9- mouth. ity of ORAL) 11:53: [place] [address] [facility] Branch cholecalcif 0 Yes Take by [facility] deb, 06-15 mouth. ity of vitamin D3, 11:53: [place] (D3 Medical ORAL) Branch mv,li,iron 0 Yes Take by [facility] ,mn/folic 06-15 mouth. ity of acid/chol 11:53: [place] (HAIR-SKIN- 19 Medical NAILS, Branch PABA, ORAL) diphenhydrA 2021-0 Yes 25mg Take 25 mg [facility] MINE 9-23 by mouth ity of (BENADRYL) 11:53: every 6 [place] 25 mg 19 (six) Medical capsule hours as Branch needed for Allergies. mecobalamin 2021-0 Yes Take by [facility] (B12 ACTIVE 06-15 mouth. ity of ORAL) 11:53: [address] Branch cholecalcif 0 Yes Take by [facility] deb, 06-15 mouth. ity of vitamin D3, 11:53: [place] (D3 Medical ORAL) Branch mv,li,iron Yes Take by [facility] ,mn/folic 06-15 mouth. ity of acid/chol 11:53: [place] (HAIR-SKIN- 19 Medical NAILS, Branch PABA, ORAL) diphenhydrA 2021-0 Yes 25mg Take 25 mg [facility] MINE 06-15 by mouth ity of (BENADRYL) 11:53: every 6 [place] 25 mg 19 (six) Medical capsule hours as Branch needed for Allergies. mecobalamin 2021-0 Yes Take by [facility] (B12 ACTIVE 06-15 mouth. ity of ORAL) 11:53: [address] Branch cholecalcif 2021-0 Yes Take by [facility] deb, 06-15 mouth. ity of vitamin D3, 11:53: [place] (D3 Medical ORAL) Branch mv,li,iron 0 Yes Take by [facility] ,mn/folic 06-15 mouth. ity of acid/chol 11:53: [place] (HAIR-SKIN- 19 Medical NAILS, Branch PABA, ORAL) diphenhydrA 2-0 Yes 25mg Take 25 mg [facility] MINE 9-23 by mouth ity of (BENADRYL) 11:53: every 6 [place] 25 mg 19 (six) Medical capsule hours as Branch needed for Allergies. mecobalamin 2022-0 Yes Take by [facility] (B12 ACTIVE 06-15 mouth. ity of ORAL) 11:53: [place] [address] Medical Branch cholecalcif 2-0 Yes Take by [facility] deb, 06-15 mouth. ity of vitamin D3, 11:53: [place] (D3-1999 19 Medical ORAL) Branch mv,li,iron 202-0 Yes Take by [facility] ,mn/folic - mouth. ity of acid/chol 11:53: [place] (HAIR-SKIN- 19 Medical NAILS, Branch PABA, ORAL) diphenhydrA 2022-0 Yes 25mg Take 25 mg [facility] MINE 9- by mouth ity of (BENADRYL) 11:53: every 6 [place] 25 mg 19 (six) Medical capsule hours as Branch needed for Allergies. mecobalamin 2022-0 Yes Take by [facility] (B12 ACTIVE 06-15 mouth. ity of ORAL) 11:53: [address] Branch cholecalcif 2021-0 Yes Take by [facility] deb, 06-15 mouth. ity of vitamin D3, 11:53: [place] (D3 Medical ORAL) Branch mv,li,iron 0 Yes Take by [facility] ,mn/folic - mouth. ity of acid/chol 11:53: [place] (HAIR-SKIN- 19 Medical NAILS, Branch PABA, ORAL) diphenhydrA 2022-0 Yes 25mg Take 25 mg [facility] MINE - by mouth ity of (BENADRYL) 11:53: every 6 [place] 25 mg 19 (six) Medical capsule hours as Branch needed for Allergies. mecobalamin 2022-0 Yes Take by [facility] (B12 ACTIVE 06-15 mouth. ity of ORAL) 11:53: [address] Branch cholecalcif 2-0 Yes Take by [facility] deb, - mouth. ity of vitamin D3, 11:53: [place] (D3-1999 19 Medical ORAL) Branch mv,li,iron 2021-0 Yes Take by [facility] ,mn/folic 9-23 mouth. ity of acid/chol 11:53: [place] (HAIR-SKIN- 19 Medical NAILS, Branch PABA, ORAL) diphenhydrA 2022-0 Yes 25mg Take 25 mg [facility] MINE 9 by mouth ity of (BENADRYL) 11:53: every 6 [place] 25 mg 19 (six) Medical capsule hours as Branch needed for Allergies. mecobalamin 2021-0 Yes Take by [facility] (B12 ACTIVE 06-15 mouth. ity of ORAL) 11:53: [address] Branch cholecalcif 0 Yes Take by [facility] deb, 06-15 mouth. ity of vitamin D3, 11:53: [place] (D3 Medical ORAL) Branch mv,li,iron 0 Yes Take by [facility] ,mn/folic 06-15 mouth. ity of acid/chol 11:53: [place] (HAIR-SKIN- 19 Medical NAILS, Branch PABA, ORAL) diphenhydrA 2021-0 Yes 25mg Take 25 mg [facility] MINE 06-15 by mouth ity of (BENADRYL) 11:53: every 6 [place] 25 mg 19 (six) Medical capsule hours as Branch needed for Allergies. mecobalamin 2021-0 Yes Take by [facility] (B12 ACTIVE 06-15 mouth. ity of ORAL) 11:53: [address] Branch cholecalcif 0 Yes Take by [facility] deb, 06-15 mouth. ity of vitamin D3, 11:53: [place] (D3 Medical ORAL) Branch mv,li,iron 0 Yes Take by [facility] ,mn/folic 06-15 mouth. ity of acid/chol 11:53: [place] (HAIR-SKIN- 19 Medical NAILS, Branch PABA, ORAL) diphenhydrA 2021-0 Yes 25mg Take 25 mg [facility] MINE 06-15 by mouth ity of (BENADRYL) 11:53: every 6 [place] 25 mg 19 (six) Medical capsule hours as Branch needed for Allergies. mecobalamin 2-0 Yes Take by [facility] (B12 ACTIVE 06-15 mouth. ity of ORAL) 11:53: [address] Branch cholecalcif 2021-0 Yes Take by [facility] deb, 06-15 mouth. ity of vitamin D3, 11:53: [place] (D3 Medical ORAL) Branch mv,li,iron 0 Yes Take by [facility] ,mn/folic 06-15 mouth. ity of acid/chol 11:53: [place] (HAIR-SKIN- 19 Medical NAILS, Branch PABA, ORAL) diphenhydrA 2022-0 Yes 25mg Take 25 mg [facility] MINE 9- by mouth ity of (BENADRYL) 11:53: every 6 [place] 25 mg 19 (six) Medical capsule hours as Branch needed for Allergies. mecobalamin 2022-0 Yes Take by [facility] (B12 ACTIVE 06-15 mouth. ity of ORAL) 11:53: [place] [address] Medical Branch cholecalcif 2021-0 Yes Take by [facility] deb, 06-15 mouth. ity of vitamin D3, 11:53: [place] (D3 Medical ORAL) Branch mv,li,iron 0 Yes Take by [facility] ,mn/folic 06-15 mouth. ity of acid/chol 11:53: [place] (HAIR-SKIN- 19 Medical NAILS, Branch PABA, ORAL) diphenhydrA 2022-0 Yes 25mg Take 25 mg [facility] MINE 06-15 by mouth ity of (BENADRYL) 11:53: every 6 [place] 25 mg 19 (six) Medical capsule hours as Branch needed for Allergies. mecobalamin 2-0 Yes Take by [facility] (B12 ACTIVE 06-15 mouth. ity of ORAL) 11:53: [address] Branch cholecalcif 2021-0 Yes Take by [facility] deb, 06-15 mouth. ity of vitamin D3, 11:53: [place] (D3 Medical ORAL) Branch mv,li,iron 0 Yes Take by [facility] ,mn/folic 06-15 mouth. ity of acid/chol 11:53: [place] (HAIR-SKIN- 19 Medical NAILS, Branch PABA, ORAL) diphenhydrA 2022-0 Yes 25mg Take 25 mg [facility] MINE 9-23 by mouth ity of (BENADRYL) 11:53: every 6 [place] 25 mg 19 (six) Medical capsule hours as Branch needed for Allergies. mecobalamin 2022-0 Yes Take by [facility] (B12 ACTIVE 06-15 mouth. ity of ORAL) 11:53: [address] Branch cholecalcif 2021-0 Yes Take by [facility] deb, 06-15 mouth. ity of vitamin D3, 11:53: [place] (D3 19 Medical ORAL) Branch mv,li,iron 2021-0 Yes Take by [facility] ,mn/folic 9- mouth. ity of acid/chol 11:53: [place] (HAIR-SKIN- 19 Medical NAILS, Branch PABA, ORAL) diphenhydrA 2-0 Yes 25mg Take 25 mg [facility] MINE 9-23 by mouth ity of (BENADRYL) 11:53: every 6 [place] 25 mg 19 (six) Medical capsule hours as Branch needed for Allergies. mecobalamin 2-0 Yes Take by [facility] (B12 ACTIVE 06-15 mouth. ity of ORAL) 11:53: [address] Branch cholecalcif 2021-0 Yes Take by [facility] deb, 06-15 mouth. ity of vitamin D3, 11:53: [place] (D3 Medical ORAL) Branch mv,il,iron 0 Yes Take by [facility] ,mn/folic - mouth. ity of acid/chol 11:53: [place] (HAIR-SKIN- 19 Medical NAILS, Branch PABA, ORAL) diphenhydrA 2-0 Yes 25mg Take 25 mg [facility] MINE 9-23 by mouth ity of (BENADRYL) 11:53: every 6 [place] 25 mg 19 (six) Medical capsule hours as Branch needed for Allergies. mecobalamin 2021-0 Yes Take by [facility] (B12 ACTIVE - mouth. ity of ORAL) 11:53: [address] cholecalcif 2021-0 Yes Take by [facility] deb, 06-15 mouth. ity of vitamin D3, 11:53: [place] (D3 Medical ORAL) Branch mv,li,iron 0 Yes Take by [facility] ,mn/folic - mouth. ity of acid/chol 11:53: [place] (HAIR-SKIN- 19 Medical NAILS, Branch PABA, ORAL) diphenhydrA 2-0 Yes 25mg Take 25 mg [facility] MINE 9-23 by mouth ity of (BENADRYL) 11:53: every 6 [place] 25 mg 19 (six) Medical capsule hours as Branch needed for Allergies. mecobalamin 2-0 Yes Take by [facility] (B12 ACTIVE 9-23 mouth. ity of ORAL) 11:53: [address] cholecalcif 2021-0 Yes Take by [facility] deb, 06-15 mouth. ity of vitamin D3, 11:53: [place] (D3 Medical ORAL) Branch mv,li,iron 0 Yes Take by [facility] ,mn/folic 06-15 mouth. ity of acid/chol 11:53: [place] (HAIR-SKIN- 19 Medical NAILS, Branch PABA, ORAL) diphenhydrA 2021-0 Yes 25mg Take 25 mg [facility] MINE 923 by mouth ity of (BENADRYL) 11:53: every 6 [place] 25 mg 19 (six) Medical capsule hours as Branch needed for Allergies. mecobalamin 2021-0 Yes Take by [facility] (B12 ACTIVE 06-15 mouth. ity of ORAL) 11:53: [address] Branch cholecalcif 0 Yes Take by [facility] deb, 06-15 mouth. ity of vitamin D3, 11:53: [place] (D3 Medical ORAL) Branch mv,li,iron 0 Yes Take by [facility] ,mn/folic 06-15 mouth. ity of acid/chol 11:53: [place] (HAIR-SKIN- 19 Medical NAILS, Branch PABA, ORAL) diphenhydrA 2021-0 Yes 25mg Take 25 mg [facility] MINE 06-15 by mouth ity of (BENADRYL) 11:53: every 6 [place] 25 mg 19 (six) Medical capsule hours as Branch needed for Allergies. mecobalamin 2021-0 Yes Take by [facility] (B12 ACTIVE 06-15 mouth. ity of ORAL) 11:53: [address] Branch cholecalcif 2021-0 Yes Take by [facility] deb, 06-15 mouth. ity of vitamin D3, 11:53: [place] (D3 Medical ORAL) Branch mv,li,iron 2021-0 Yes Take by [facility] ,mn/folic 06-15 mouth. ity of acid/chol 11:53: [place] (HAIR-SKIN- 19 Medical NAILS, Branch PABA, ORAL) diphenhydrA 2-0 Yes 25mg Take 25 mg [facility] MINE 9-23 by mouth ity of (BENADRYL) 11:53: every 6 [place] 25 mg 19 (six) Medical capsule hours as Branch needed for Allergies. mecobalamin 2022-0 Yes Take by [facility] (B12 ACTIVE 06-15 mouth. ity of ORAL) 11:53: [place] [address] Medical Branch cholecalcif 2021-0 Yes Take by [facility] deb, 06-15 mouth. ity of vitamin D3, 11:53: [place] (D3 Medical ORAL) Branch mv,li,iron 2021-0 Yes Take by [facility] ,mn/folic - mouth. ity of acid/chol 11:53: [place] (HAIR-SKIN- 19 Medical NAILS, Branch PABA, ORAL) diphenhydrA 2022-0 Yes 25mg Take 25 mg [facility] MINE 9-23 by mouth ity of (BENADRYL) 11:53: every 6 [place] 25 mg 19 (six) Medical capsule hours as Branch needed for Allergies. mecobalamin 2022-0 Yes Take by [facility] (B12 ACTIVE 06-15 mouth. ity of ORAL) 11:53: [address] Branch cholecalcif 2021-0 Yes Take by [facility] deb, 06-15 mouth. ity of vitamin D3, 11:53: [place] (D3 Medical ORAL) Branch mv,li,iron 0 Yes Take by [facility] ,mn/folic 06-15 mouth. ity of acid/chol 11:53: [place] (HAIR-SKIN- 19 Medical NAILS, Branch PABA, ORAL) diphenhydrA 2022-0 Yes 25mg Take 25 mg [facility] MINE 9-23 by mouth ity of (BENADRYL) 11:53: every 6 [place] 25 mg 19 (six) Medical capsule hours as Branch needed for Allergies. mecobalamin 2022-0 Yes Take by [facility] (B12 ACTIVE 06-15 mouth. ity of ORAL) 11:53: [address] Branch cholecalcif 2-0 Yes Take by [facility] deb, - mouth. ity of vitamin D3, 11:53: [place] (D3 Medical ORAL) Branch mv,li,iron 2021-0 Yes Take by [facility] ,mn/folic - mouth. ity of acid/chol 11:53: [place] (HAIR-SKIN- 19 Medical NAILS, Branch PABA, ORAL) diphenhydrA 2022-0 Yes 25mg Take 25 mg [facility] MINE 9-23 by mouth ity of (BENADRYL) 11:53: every 6 [place] 25 mg 19 (six) Medical capsule hours as Branch needed for Allergies. mecobalamin 2021-0 Yes Take by [facility] (B12 ACTIVE 06-15 mouth. ity of ORAL) 11:53: [address] Branch cholecalcif 0 Yes Take by [facility] deb, 06-15 mouth. ity of vitamin D3, 11:53: [place] (D3 Medical ORAL) Branch mv,li,iron 0 Yes Take by [facility] ,mn/folic 06-15 mouth. ity of acid/chol 11:53: [place] (HAIR-SKIN- 19 Medical NAILS, Branch PABA, ORAL) diphenhydrA 2021-0 Yes 25mg Take 25 mg [facility] MINE 06-15 by mouth ity of (BENADRYL) 11:53: every 6 [place] 25 mg 19 (six) Medical capsule hours as Branch needed for Allergies. mecobalamin 2021-0 Yes Take by [facility] (B12 ACTIVE 06-15 mouth. ity of ORAL) 11:53: [address] Branch cholecalcif 0 Yes Take by [facility] deb, 06-15 mouth. ity of vitamin D3, 11:53: [place] (D3 Medical ORAL) Branch mv,li,iron 0 Yes Take by [facility] ,mn/folic - mouth. ity of acid/chol 11:53: [place] (HAIR-SKIN- 19 Medical NAILS, Branch PABA, ORAL) diphenhydrA 2021-0 Yes 25mg Take 25 mg [facility] MINE 06-15 by mouth ity of (BENADRYL) 11:53: every 6 [place] 25 mg 19 (six) Medical capsule hours as Branch needed for Allergies. mecobalamin 2-0 Yes Take by [facility] (B12 ACTIVE 06-15 mouth. ity of ORAL) 11:53: [address] Branch cholecalcif 2021-0 Yes Take by [facility] deb, 06-15 mouth. ity of vitamin D3, 11:53: [place] (D3 Medical ORAL) Branch mv,li,iron 0 Yes Take by [facility] ,mn/folic 06-15 mouth. ity of acid/chol 11:53: [place] (HAIR-SKIN- 19 Medical NAILS, Branch PABA, ORAL) diphenhydrA 2022-0 Yes 25mg Take 25 mg [facility] MINE 9-23 by mouth ity of (BENADRYL) 11:53: every 6 [place] 25 mg 19 (six) Medical capsule hours as Branch needed for Allergies. mecobalamin 2022-0 Yes Take by [facility] (B12 ACTIVE 9 mouth. ity of ORAL) 11:53: [place] [address] Medical Branch cholecalcif 2021-0 Yes Take by [facility] deb, - mouth. ity of vitamin D3, 11:53: [place] (D3-1999 19 Medical ORAL) Branch mv,li,iron 0 Yes Take by [facility] ,mn/folic - mouth. ity of acid/chol 11:53: [place] (HAIR-SKIN- 19 Medical NAILS, Branch PABA, ORAL) diphenhydrA 2022-0 Yes 25mg Take 25 mg [facility] MINE 9-23 by mouth ity of (BENADRYL) 11:53: every 6 [place] 25 mg 19 (six) Medical capsule hours as Branch needed for Allergies. mecobalamin 2022-0 Yes Take by [facility] (B12 ACTIVE 06-15 mouth. ity of ORAL) 11:53: [address] Branch cholecalcif 2021-0 Yes Take by [facility] deb, - mouth. ity of vitamin D3, 11:53: [place] (D3 Medical ORAL) Branch mv,li,iron 0 Yes Take by [facility] ,mn/folic - mouth. ity of acid/chol 11:53: [place] (HAIR-SKIN- 19 Medical NAILS, Branch PABA, ORAL) diphenhydrA 2022-0 Yes 25mg Take 25 mg [facility] MINE 9-23 by mouth ity of (BENADRYL) 11:53: every 6 [place] 25 mg 19 (six) Medical capsule hours as Branch needed for Allergies. mecobalamin 2022-0 Yes Take by [facility] (B12 ACTIVE 9- mouth. ity of ORAL) 11:53: [address] Branch cholecalcif 2021-0 Yes Take by [facility] deb, - mouth. ity of vitamin D3, 11:53: [place] (D3-2000 19 Medical ORAL) Branch mv,li,iron Yes Take by [facility] ,mn/folic 06-15 mouth. ity of acid/chol 11:53: [place] (HAIR-SKIN- 19 Medical NAILS, Branch PABA, ORAL) diphenhydrA 2-0 Yes 25mg Take 25 mg [facility] MINE 06-15 by mouth ity of (BENADRYL) 11:53: every 6 [place] 25 mg 19 (six) Medical capsule hours as Branch needed for Allergies. mecobalamin 2021-0 Yes Take by [facility] (B12 ACTIVE 06-15 mouth. ity of ORAL) 11:53: [place] [address] Medical Branch cholecalcif Yes Take by [facility] deb, 06-15 mouth. ity of vitamin D3, 11:53: [place] (D3 Medical ORAL) Branch mv,li,iron Yes Take by [facility] ,mn/folic 06-15 mouth. ity of acid/chol 11:53: [place] (HAIR-SKIN- 19 Medical NAILS, Branch PABA, ORAL) diphenhydrA 2021-0 Yes 25mg Take 25 mg [facility] MINE 06-15 by mouth ity of (BENADRYL) 11:53: every 6 [place] 25 mg 19 (six) Medical capsule hours as Branch needed for Allergies. mecobalamin 2021-0 Yes Take by [facility] (B12 ACTIVE 06-15 mouth. ity of ORAL) 11:53: [address] Branch cholecalcif 0 Yes Take by [facility] deb, 06-15 mouth. ity of vitamin D3, 11:53: [place] (D3 Medical ORAL) Branch mv,li,iron Yes Take by [facility] ,mn/folic 06-15 mouth. ity of acid/chol 11:53: [place] (HAIR-SKIN- 19 Medical NAILS, Branch PABA, ORAL) diphenhydrA 2-0 Yes 25mg Take 25 mg [facility] MINE 06-15 by mouth ity of (BENADRYL) 11:53: every 6 [place] 25 mg 19 (six) Medical capsule hours as Branch needed for Allergies. mecobalamin 2-0 Yes Take by [facility] (B12 ACTIVE 06-15 mouth. ity of ORAL) 11:53: [place] [address] Medical Branch cholecalcif 2022-0 Yes Take by [facility] deb, 06-15 mouth. ity of vitamin D3, 11:53: [place] (D3 Medical ORAL) Branch mv,li,iron 2021-0 Yes Take by [facility] ,mn/folic 06-15 mouth. ity of acid/chol 11:53: [place] (HAIR-SKIN- 19 Medical NAILS, Branch PABA, ORAL) diphenhydrA 2022-0 Yes 25mg Take 25 mg [facility] MINE 9 by mouth ity of (BENADRYL) 11:53: every 6 [place] 25 mg 19 (six) Medical capsule hours as Branch needed for Allergies. mecobalamin 2022-0 Yes Take by [facility] (B12 ACTIVE 06-15 mouth. ity of ORAL) 11:53: [place] [address] [facility] Branch cholecalcif 2021-0 Yes Take by [facility] deb, 06-15 mouth. ity of vitamin D3, 11:53: [place] (D3 Medical ORAL) Branch mv,li,iron 2021-0 Yes Take by [facility] ,mn/folic 06-15 mouth. ity of acid/chol 11:53: [place] (HAIR-SKIN- 19 Medical NAILS, Branch PABA, ORAL) diphenhydrA 2022-0 Yes 25mg Take 25 mg [facility] MINE 06-15 by mouth ity of (BENADRYL) 11:53: every 6 [place] 25 mg 19 (six) Medical capsule hours as Branch needed for Allergies. mecobalamin 2-0 Yes Take by [facility] (B12 ACTIVE 06-15 mouth. ity of ORAL) 11:53: [place] [address] [facility] Branch cholecalcif 2022-0 Yes Take by [facility] deb, 06-15 mouth. ity of vitamin D3, 11:53: [place] (D3 Medical ORAL) Branch mv,li,iron 2021-0 Yes Take by [facility] ,mn/folic 06-15 mouth. ity of acid/chol 11:53: [place] (HAIR-SKIN- 19 Medical NAILS, Branch PABA, ORAL) diphenhydrA 2022-0 Yes 25mg Take 25 mg [facility] MINE 9-23 by mouth ity of (BENADRYL) 11:53: every 6 [place] 25 mg 19 (six) Medical capsule hours as Branch needed for Allergies. mecobalamin 2022-0 Yes Take by [facility] (B12 ACTIVE 06-15 mouth. ity of ORAL) 11:53: [address] Branch cholecalcif 2021-0 Yes Take by [facility] deb, 06-15 mouth. ity of vitamin D3, 11:53: [place] (D3 Medical ORAL) Branch mv,li,iron 0 Yes Take by [facility] ,mn/folic - mouth. ity of acid/chol 11:53: [place] (HAIR-SKIN- 19 Medical NAILS, Branch PABA, ORAL) diphenhydrA 2022-0 Yes 25mg Take 25 mg [facility] MINE 9-23 by mouth ity of (BENADRYL) 11:53: every 6 [place] 25 mg 19 (six) Medical capsule hours as Branch needed for Allergies. mecobalamin 2-0 Yes Take by [facility] (B12 ACTIVE 06-15 mouth. ity of ORAL) 11:53: [address] cholecalcif 2021-0 Yes Take by [facility] deb, 06-15 mouth. ity of vitamin D3, 11:53: [place] (D3 Medical ORAL) Branch mv,li,iron 0 Yes Take by [facility] ,mn/folic - mouth. ity of acid/chol 11:53: [place] (HAIR-SKIN- 19 Medical NAILS, Branch PABA, ORAL) diphenhydrA 2-0 Yes 25mg Take 25 mg [facility] MINE - by mouth ity of (BENADRYL) 11:53: every 6 [place] 25 mg 19 (six) Medical capsule hours as Branch needed for Allergies. mecobalamin 2-0 Yes Take by [facility] (B12 ACTIVE 06-15 mouth. ity of ORAL) 11:53: [address] Branch cholecalcif 2021-0 Yes Take by [facility] deb, - mouth. ity of vitamin D3, 11:53: [place] (D3 Medical ORAL) Branch mv,li,iron 0 Yes Take by [facility] ,mn/folic - mouth. ity of acid/chol 11:53: [place] (HAIR-SKIN- 19 Medical NAILS, Branch PABA, ORAL) diphenhydrA 2-0 Yes 25mg Take 25 mg [facility] MINE 9-23 by mouth ity of (BENADRYL) 11:53: every 6 [place] 25 mg 19 (six) Medical capsule hours as Branch needed for Allergies. mecobalamin 2022-0 Yes Take by [facility] (B12 ACTIVE 06-15 mouth. ity of ORAL) 11:53: [place] [address] [facility] Branch cholecalcif 2021-0 Yes Take by [facility] deb, 06-15 mouth. ity of vitamin D3, 11:53: [place] (D3-1999 19 Medical ORAL) Branch mv,li,iron 2021-0 Yes Take by [facility] ,mn/folic 06-15 mouth. ity of acid/chol 11:53: [place] (HAIR-SKIN- 19 Medical NAILS, Branch PABA, ORAL) diphenhydrA 2-0 Yes 25mg Take 25 mg [facility] MINE 06-15 by mouth ity of (BENADRYL) 11:53: every 6 [place] 25 mg 19 (six) Medical capsule hours as Branch needed for Allergies. mecobalamin 2-0 Yes Take by [facility] (B12 ACTIVE 06-15 mouth. ity of ORAL) 11:53: [place] [address] [facility] Branch cholecalcif 2021-0 Yes Take by [facility] deb, 06-15 mouth. ity of vitamin D3, 11:53: [place] (D3 Medical ORAL) Branch mv,li,iron 0 Yes Take by [facility] ,mn/folic - mouth. ity of acid/chol 11:53: [place] (HAIR-SKIN- 19 Medical NAILS, Branch PABA, ORAL) diphenhydrA 2-0 Yes 25mg Take 25 mg [facility] MINE 06-15 by mouth ity of (BENADRYL) 11:53: every 6 [place] 25 mg 19 (six) Medical capsule hours as Branch needed for Allergies. mecobalamin 2022-0 Yes Take by [facility] (B12 ACTIVE 06-15 mouth. ity of ORAL) 11:53: [place] [address] [facility] Branch cholecalcif 2021-0 Yes Take by [facility] deb, 06-15 mouth. ity of vitamin D3, 11:53: [place] (D3-1999 19 Medical ORAL) Branch mv,li,iron 202-0 Yes Take by [facility] ,mn/folic - mouth. ity of acid/chol 11:53: [place] (HAIR-SKIN- 19 Medical NAILS, Branch PABA, ORAL) diphenhydrA 2022-0 Yes 25mg Take 25 mg [facility] MINE 9-23 by mouth ity of (BENADRYL) 11:53: every 6 [place] 25 mg 19 (six) Medical capsule hours as Branch needed for Allergies. mecobalamin 2022-0 Yes Take by [facility] (B12 ACTIVE 06-15 mouth. ity of ORAL) 11:53: [place] [address] [facility] Branch cholecalcif 2021-0 Yes Take by [facility] deb, 06-15 mouth. ity of vitamin D3, 11:53: [place] (D3 Medical ORAL) Branch mv,li,iron 202-0 Yes Take by [facility] ,mn/folic 06-15 mouth. ity of acid/chol 11:53: [place] (HAIR-SKIN- 19 Medical NAILS, Branch PABA, ORAL) diphenhydrA 2022-0 Yes 25mg Take 25 mg [facility] MINE 9-23 by mouth ity of (BENADRYL) 11:53: every 6 [place] 25 mg 19 (six) Medical capsule hours as Branch needed for Allergies. mecobalamin 2022-0 Yes Take by [facility] (B12 ACTIVE 06-15 mouth. ity of ORAL) 11:53: [address] Branch cholecalcif 2021-0 Yes Take by [facility] deb, 06-15 mouth. ity of vitamin D3, 11:53: [place] (D3 Medical ORAL) Branch mv,li,iron 2021-0 Yes Take by [facility] ,mn/folic 06-15 mouth. ity of acid/chol 11:53: [place] (HAIR-SKIN- 19 Medical NAILS, Branch PABA, ORAL) diphenhydrA 2022-0 Yes 25mg Take 25 mg [facility] MINE 9-23 by mouth ity of (BENADRYL) 11:53: every 6 [place] 25 mg 19 (six) Medical capsule hours as Branch needed for Allergies. mecobalamin 2022-0 Yes Take by [facility] (B12 ACTIVE 06-15 mouth. ity of ORAL) 11:53: [address] Branch cholecalcif 2-0 Yes Take by [facility] deb, 06-15 mouth. ity of vitamin D3, 11:53: [place] (D3 Medical ORAL) Branch mv,li,iron 2022-0 Yes Take by [facility] ,mn/folic 06-15 mouth. ity of acid/chol 11:53: [place] (HAIR-SKIN- 19 Medical NAILS, Branch PABA, ORAL) diphenhydrA 0 Yes 25mg Take 25 mg [facility] MINE 06-15 by mouth ity of (BENADRYL) 11:53: every 6 [place] 25 mg 19 (six) Medical capsule hours as Branch needed for Allergies. mecobalamin Yes Take by [facility] (B12 ACTIVE 06-15 mouth. ity of ORAL) 11:53: [place] [address] [facility] Branch cholecalcif Yes Take by [facility] deb, 06-15 mouth. ity of vitamin D3, 11:53: [place] (D3-1999 Medical ORAL) Branch mv,li,iron Yes Take by [facility] ,mn/folic 06-15 mouth. ity of acid/chol 11:53: [place] (HAIR-SKIN- 19 Medical NAILS, Branch PABA, ORAL) cephALEXin 0 Yes [facility] 250 mg/5 mL - ity of suspension 00:00: [place] [facility] cephALEXin 2-0 Yes [facility] 250 mg/5 mL -19 ity of suspension 00:00: [place] [facility] cephALEXin 2-0 Yes [facility] 250 mg/5 mL 9-19 ity of suspension 00:00: [place] [facility] cephALEXin 2022-0 Yes [facility] 250 mg/5 mL 9-19 ity of suspension 00:00: [place] [facility] cephALEXin 2-0 Yes [facility] 250 mg/5 mL 9-19 ity of suspension 00:00: [place] [facility] cephALEXin 2022-0 Yes [facility] 250 mg/5 mL 9-19 ity of suspension 00:00: [facility] cephALEXin 2022-0 Yes [facility] 250 mg/5 mL 9-19 ity of suspension 00:00: [facility] cephALEXin 2-0 Yes [facility] 250 mg/5 mL 9-19 ity of suspension 00:00: [place] [facility] cephALEXin 2022-0 Yes [facility] 250 mg/5 mL 9-19 ity of suspension 00:00: [place] [facility] cephALEXin 2-0 Yes [facility] 250 mg/5 mL 9-19 ity of suspension 00:00: [place] [facility] cephALEXin 2022-0 Yes [facility] 250 mg/5 mL 9-19 ity of suspension 00:00: [place] [address] [facility] cephALEXin 2022-0 Yes [facility] 250 mg/5 mL 9-19 ity of suspension 00:00: [place] [address] [facility] cephALEXin 2022-0 Yes [facility] 250 mg/5 mL 9-19 ity of suspension 00:00: [place] [address] [facility] cephALEXin 2022-0 Yes [facility] 250 mg/5 mL 9-19 ity of suspension 00:00: [place] [address] [facility] cephALEXin 2022-0 Yes [facility] 250 mg/5 mL 9-19 ity of suspension 00:00: [place] [address] [facility] cephALEXin 2022-0 Yes [facility] 250 mg/5 mL 9-19 ity of suspension 00:00: [place] [address] [facility] cephALEXin 2022-0 Yes [facility] 250 mg/5 mL 9-19 ity of suspension 00:00: [place] [address] [facility] cephALEXin 2022-0 Yes [facility] 250 mg/5 mL 9-19 ity of suspension 00:00: [place] [address] [facility] cephALEXin 2022-0 Yes [facility] 250 mg/5 mL 9-19 ity of suspension 00:00: [place] [address] [facility] cephALEXin 2022-0 Yes [facility] 250 mg/5 mL 9-19 ity of suspension 00:00: [place] [address] [facility] cephALEXin 2022-0 Yes [facility] 250 mg/5 mL 9-19 ity of suspension 00:00: [place] [address] [facility] cephALEXin 2022-0 Yes [facility] 250 mg/5 mL 9-19 ity of suspension 00:00: [place] [address] [facility] cephALEXin 2022-0 Yes [facility] 250 mg/5 mL 9-19 ity of suspension 00:00: [place] [address] [facility] cephALEXin 2022-0 Yes [facility] 250 mg/5 mL 9-19 ity of suspension 00:00: [place] [address] [facility] cephALEXin 2022-0 Yes [facility] 250 mg/5 mL 9-19 ity of suspension 00:00: [place] [address] [facility] cephALEXin 2022-0 Yes [facility] 250 mg/5 mL 9-19 ity of suspension 00:00: [place] [address] [facility] cephALEXin 2022-0 Yes [facility] 250 mg/5 mL 9-19 ity of suspension 00:00: [place] [address] [facility] cephALEXin 2022-0 Yes [facility] 250 mg/5 mL 9-19 ity of suspension 00:00: [place] 00 [facility] cephALEXin 2022-0 Yes [facility] 250 mg/5 mL 9-19 ity of suspension 00:00: [place] [address] [facility] cephALEXin 2022-0 Yes [facility] 250 mg/5 mL 9-19 ity of suspension 00:00: [place] [address] [facility] cephALEXin 2022-0 Yes [facility] 250 mg/5 mL 9-19 ity of suspension 00:00: [place] [address] [facility] cephALEXin 2022-0 Yes [facility] 250 mg/5 mL 9-19 ity of suspension 00:00: [place] [address] [facility] cephALEXin 2022-0 Yes [facility] 250 mg/5 mL 9-19 ity of suspension 00:00: [place] [address] [facility] cephALEXin 2022-0 Yes [facility] 250 mg/5 mL 9-19 ity of suspension 00:00: [place] [address] [facility] cephALEXin 2022-0 Yes [facility] 250 mg/5 mL 9-19 ity of suspension 00:00: [place] [address] [facility] cephALEXin 2022-0 Yes [facility] 250 mg/5 mL 9-19 ity of suspension 00:00: [place] [address] [facility] cephALEXin 2022-0 Yes [facility] 250 mg/5 mL 9-19 ity of suspension 00:00: [place] [address] [facility] cephALEXin 2022-0 Yes [facility] 250 mg/5 mL 9-19 ity of suspension 00:00: [place] [address] [facility] cephALEXin 2022-0 Yes [facility] 250 mg/5 mL 9-19 ity of suspension 00:00: [place] [address] [facility] cephALEXin 2022-0 Yes [facility] 250 mg/5 mL 9-19 ity of suspension 00:00: [place] [address] [facility] cephALEXin 2022-0 Yes [facility] 250 mg/5 mL 9-19 ity of suspension 00:00: [place] [address] [facility] cephALEXin 2022-0 Yes [facility] 250 mg/5 mL 9-19 ity of suspension 00:00: [place] [address] [facility] cephALEXin 2022-0 Yes [facility] 250 mg/5 mL 9-19 ity of suspension 00:00: [place] [address] [facility] cephALEXin 2022-0 Yes [facility] 250 mg/5 mL 9-19 ity of suspension 00:00: [place] [address] [facility] cephALEXin 2022-0 Yes [facility] 250 mg/5 mL 9-19 ity of suspension 00:00: [place] [address] [facility] cephALEXin 2022-0 Yes [facility] 250 mg/5 mL 9-19 ity of suspension 00:00: [place] [address] [facility] cephALEXin 2022-0 Yes [facility] 250 mg/5 mL 9-19 ity of suspension 00:00: [place] [address] [facility] cephALEXin 2022-0 Yes [facility] 250 mg/5 mL 9-19 ity of suspension 00:00: [place] [address] [facility] cephALEXin 2022-0 Yes [facility] 250 mg/5 mL 9-19 ity of suspension 00:00: [place] [address] [facility] cephALEXin 2022-0 Yes [facility] 250 mg/5 mL 9-19 ity of suspension 00:00: [place] [address] [facility] cephALEXin 2022-0 Yes [facility] 250 mg/5 mL 9-19 ity of suspension 00:00: [place] [address] [facility] cephALEXin 2022-0 Yes [facility] 250 mg/5 mL 9-19 ity of suspension 00:00: [place] [address] [facility] cephALEXin 2022-0 Yes [facility] 250 mg/5 mL 9-19 ity of suspension 00:00: [place] [address] [facility] cephALEXin 2022-0 Yes [facility] 250 mg/5 mL 9-19 ity of suspension 00:00: [place] [address] [facility] cephALEXin 2022-0 Yes [facility] 250 mg/5 mL 9-19 ity of suspension 00:00: [place] [address] [facility] cephALEXin 2022-0 Yes [facility] 250 mg/5 mL 9-19 ity of suspension 00:00: [place] [address] [facility] cephALEXin 2022-0 Yes [facility] 250 mg/5 mL 9-19 ity of suspension 00:00: [place] [address] [facility] cephALEXin 2022-0 Yes [facility] 250 mg/5 mL 9-19 ity of suspension 00:00: [place] [address] [facility] cephALEXin 2022-0 Yes [facility] 250 mg/5 mL 9-19 ity of suspension 00:00: [place] [address] [facility] cephALEXin 2022-0 Yes [facility] 250 mg/5 mL 9-19 ity of suspension 00:00: [place] [address] [facility] cephALEXin 2022-0 Yes [facility] 250 mg/5 mL 9-19 ity of suspension 00:00: [place] [address] [facility] cephALEXin 2022-0 Yes [facility] 250 mg/5 mL 9-19 ity of suspension 00:00: [place] [address] [facility] cephALEXin 2022-0 Yes [facility] 250 mg/5 mL 9-19 ity of suspension 00:00: [place] [address] [facility] lactulose 2022-0 Yes [id number] 30mL Take 30 mL [facility] 10 gram/15 9-16 by mouth ity o f mL oral 00:00: daily. [place] solution 00 [facility] sucralfate 2-0 Yes [id number] 1000mg Take 10 mL [facility] 100 mg/mL 9-16 by mouth ity of suspension 00:00: before [place] 00 meals and [facility] at [facility] bedtime. lactulose 2-0 Yes [id number] 30mL Take 30 mL [facility] 10 gram/15 9-16 by mouth ity o f mL oral 00:00: daily. [place] solution 00 [facility] sucralfate 2021-0 Yes [id number] 1000mg Take 10 mL [facility] 100 mg/mL 9-16 by mouth ity of suspension 00:00: before [place] 00 meals and Medical at [facility] bedtime. lactulose 2021-0 Yes [id number] 30mL Take 30 mL [facility] 10 gram/15 9-16 by mouth ity o f mL oral 00:00: daily. [place] solution 00 [facility] sucralfate 2-0 Yes [id number] 1000mg Take 10 mL [facility] 100 mg/mL 9-16 by mouth ity of suspension 00:00: before [place] 00 meals and [facility] at [facility] bedtime. lactulose 2021-0 Yes [id number] 30mL Take 30 mL [facility] 10 gram/15 9-16 by mouth ity o f mL oral 00:00: daily. [place] solution 00 [facility] sucralfate 2021-0 Yes [id number] 1000mg Take 10 mL [facility] 100 mg/mL 9-16 by mouth ity of suspension 00:00: before [place] 00 meals and Medical at [facility] bedtime. lactulose 2-0 Yes [id number] 30mL Take 30 mL [facility] 10 gram/15 9-16 by mouth ity o f mL oral 00:00: daily. [place] solution 00 [facility] sucralfate 2-0 Yes [id number] 1000mg Take 10 mL [facility] 100 mg/mL 9-16 by mouth ity of suspension 00:00: before [place] 00 meals and Medical at [facility] bedtime. lactulose 2-0 Yes [id number] 30mL Take 30 mL [facility] 10 gram/15 9-16 by mouth ity o f mL oral 00:00: daily. [place] solution 00 [facility] sucralfate 2-0 Yes [id number] 1000mg Take 10 mL [facility] 100 mg/mL 9-16 by mouth ity of suspension 00:00: before [place] 00 meals and Medical at [facility] bedtime. lactulose 2022-0 Yes [id number] 30mL Take 30 mL [facility] 10 gram/15 9-16 by mouth ity o f mL oral 00:00: daily. [place] solution 00 [facility] [place] sucralfate 2-0 Yes [id number] 1000mg Take 10 mL [facility] 100 mg/mL 9-16 by mouth ity of suspension 00:00: before [place] 00 meals and Medical at [facility] bedtime. lactulose 2-0 Yes [id number] 30mL Take 30 mL [facility] 10 gram/15 9-16 by mouth ity o f mL oral 00:00: daily. [place] solution 00 [facility] sucralfate 2-0 Yes [id number] 1000mg Take 10 mL [facility] 100 mg/mL 9-16 by mouth ity of suspension 00:00: before [place] 00 meals and Medical at [facility] bedtime. lactulose 2-0 Yes [id number] 30mL Take 30 mL [facility] 10 gram/15 9-16 by mouth ity o f mL oral 00:00: daily. [place] solution 00 [facility] sucralfate 2-0 Yes [id number] 1000mg Take 10 mL [facility] 100 mg/mL 9-16 by mouth ity of suspension 00:00: before [place] 00 meals and Medical at [facility] bedtime. lactulose 2-0 Yes [id number] 30mL Take 30 mL [facility] 10 gram/15 9-16 by mouth ity o f mL oral 00:00: daily. [place] solution 00 [facility] sucralfate 2-0 Yes [id number] 1000mg Take 10 mL [facility] 100 mg/mL 9-16 by mouth ity of suspension 00:00: before [place] 00 meals and Medical at [facility] bedtime. lactulose 2-0 Yes [id number] 30mL Take 30 mL [facility] 10 gram/15 9-16 by mouth ity o f mL oral 00:00: daily. [place] solution 00 [facility] sucralfate 2-0 Yes [id number] 1000mg Take 10 mL [facility] 100 mg/mL 9-16 by mouth ity of suspension 00:00: before [place] 00 meals and Medical at [facility] bedtime. lactulose 2-0 Yes [id number] 30mL Take 30 mL [facility] 10 gram/15 9-16 by mouth ity o f mL oral 00:00: daily. [place] solution 00 [facility] [place] sucralfate 2-0 Yes [id number] 1000mg Take 10 mL [facility] 100 mg/mL 9-16 by mouth ity of suspension 00:00: before [place] 00 meals and Medical at [facility] bedtime. lactulose 2-0 Yes [id number] 30mL Take 30 mL [facility] 10 gram/15 9-16 by mouth ity o f mL oral 00:00: daily. [place] solution 00 [facility] [place] sucralfate 2-0 Yes [id number] 1000mg Take 10 mL [facility] 100 mg/mL 9-16 by mouth ity of suspension 00:00: before [place] 00 meals and Medical at [facility] bedtime. lactulose 2-0 Yes [id number] 30mL Take 30 mL [facility] 10 gram/15 9-16 by mouth ity o f mL oral 00:00: daily. [place] solution 00 [facility] sucralfate 2021-0 Yes [id number] 1000mg Take 10 mL [facility] 100 mg/mL 9-16 by mouth ity of suspension 00:00: before [place] 00 meals and Medical at [facility] bedtime. lactulose 2-0 Yes [id number] 30mL Take 30 mL [facility] 10 gram/15 9-16 by mouth ity o f mL oral 00:00: daily. [place] solution 00 [facility] sucralfate 2-0 Yes [id number] 1000mg Take 10 mL [facility] 100 mg/mL 9-16 by mouth ity of suspension 00:00: before [place] 00 meals and Medical at [facility] bedtime. lactulose 2-0 Yes [id number] 30mL Take 30 mL [facility] 10 gram/15 9-16 by mouth ity o f mL oral 00:00: daily. [place] solution 00 [facility] sucralfate 2-0 Yes [id number] 1000mg Take 10 mL [facility] 100 mg/mL 9-16 by mouth ity of suspension 00:00: before [place] 00 meals and Medical at [facility] bedtime. lactulose 2-0 Yes [id number] 30mL Take 30 mL [facility] 10 gram/15 9-16 by mouth ity o f mL oral 00:00: daily. [place] solution 00 [facility] sucralfate 2-0 Yes [id number] 1000mg Take 10 mL [facility] 100 mg/mL 9-16 by mouth ity of suspension 00:00: before [place] 00 meals and Medical at [facility] bedtime. lactulose 2-0 Yes [id number] 30mL Take 30 mL [facility] 10 gram/15 9-16 by mouth ity o f mL oral 00:00: daily. [place] solution 00 [facility] [place] sucralfate 2021-0 Yes [id number] 1000mg Take 10 mL [facility] 100 mg/mL 9-16 by mouth ity of suspension 00:00: before [place] 00 meals and Medical at [facility] bedtime. lactulose 2021-0 Yes [id number] 30mL Take 30 mL [facility] 10 gram/15 9-16 by mouth ity o f mL oral 00:00: daily. [place] solution 00 [facility] sucralfate 2021-0 Yes [id number] 1000mg Take 10 mL [facility] 100 mg/mL 9-16 by mouth ity of suspension 00:00: before [place] 00 meals and Medical at [facility] bedtime. lactulose 2021-0 Yes [id number] 30mL Take 30 mL [facility] 10 gram/15 9-16 by mouth ity o f mL oral 00:00: daily. [place] solution 00 [facility] sucralfate 2021-0 Yes [id number] 1000mg Take 10 mL [facility] 100 mg/mL 9-16 by mouth ity of suspension 00:00: before [place] 00 meals and Medical at [facility] bedtime. lactulose 2021-0 Yes [id number] 30mL Take 30 mL [facility] 10 gram/15 9-16 by mouth ity o f mL oral 00:00: daily. [place] solution 00 [facility] sucralfate 2021-0 Yes [id number] 1000mg Take 10 mL [facility] 100 mg/mL 9-16 by mouth ity of suspension 00:00: before [place] 00 meals and Medical at [facility] bedtime. lactulose 2021-0 Yes [id number] 30mL Take 30 mL [facility] 10 gram/15 9-16 by mouth ity o f mL oral 00:00: daily. [place] solution 00 [facility] sucralfate 2021-0 Yes [id number] 1000mg Take 10 mL [facility] 100 mg/mL 9-16 by mouth ity of suspension 00:00: before [place] 00 meals and Medical at [facility] bedtime. lactulose 2021-0 Yes [id number] 30mL Take 30 mL [facility] 10 gram/15 9-16 by mouth ity o f mL oral 00:00: daily. [place] solution 00 [facility] sucralfate 2021-0 Yes [id number] 1000mg Take 10 mL [facility] 100 mg/mL 9-16 by mouth ity of suspension 00:00: before [place] 00 meals and Medical at [facility] bedtime. lactulose 2-0 Yes [id number] 30mL Take 30 mL [facility] 10 gram/15 9-16 by mouth ity o f mL oral 00:00: daily. [place] solution 00 [facility] sucralfate 2-0 Yes [id number] 1000mg Take 10 mL [facility] 100 mg/mL 9-16 by mouth ity of suspension 00:00: before [place] 00 meals and Medical at [facility] bedtime. lactulose 2-0 Yes [id number] 30mL Take 30 mL [facility] 10 gram/15 9-16 by mouth ity o f mL oral 00:00: daily. [place] solution 00 [facility] sucralfate 2021-0 Yes [id number] 1000mg Take 10 mL [facility] 100 mg/mL 9-16 by mouth ity of suspension 00:00: before [place] 00 meals and Medical at [facility] bedtime. lactulose 2021-0 Yes [id number] 30mL Take 30 mL [facility] 10 gram/15 9-16 by mouth ity o f mL oral 00:00: daily. [place] solution 00 [facility] sucralfate 2021-0 Yes [id number] 1000mg Take 10 mL [facility] 100 mg/mL 9-16 by mouth ity of suspension 00:00: before [place] 00 meals and Medical at [facility] bedtime. lactulose 2021-0 Yes [id number] 30mL Take 30 mL [facility] 10 gram/15 9-16 by mouth ity o f mL oral 00:00: daily. [place] solution 00 [facility] sucralfate 2-0 Yes [id number] 1000mg Take 10 mL [facility] 100 mg/mL 9-16 by mouth ity of suspension 00:00: before [place] 00 meals and Medical at [facility] bedtime. lactulose 2-0 Yes [id number] 30mL Take 30 mL [facility] 10 gram/15 9-16 by mouth ity o f mL oral 00:00: daily. [place] solution 00 [facility] sucralfate 2-0 Yes [id number] 1000mg Take 10 mL [facility] 100 mg/mL 9-16 by mouth ity of suspension 00:00: before [place] 00 meals and Medical at [facility] bedtime. lactulose 2-0 Yes [id number] 30mL Take 30 mL [facility] 10 gram/15 9-16 by mouth ity o f mL oral 00:00: daily. [place] solution 00 [facility] [place] sucralfate 2022-0 Yes [id number] 1000mg Take 10 mL [facility] 100 mg/mL 9-16 by mouth ity of suspension 00:00: before [place] 00 meals and Medical at [facility] bedtime. lactulose 2-0 Yes [id number] 30mL Take 30 mL [facility] 10 gram/15 9-16 by mouth ity o f mL oral 00:00: daily. [place] solution 00 [facility] sucralfate 2-0 Yes [id number] 1000mg Take 10 mL [facility] 100 mg/mL 9-16 by mouth ity of suspension 00:00: before [place] 00 meals and Medical at [facility] bedtime. lactulose 2-0 Yes [id number] 30mL Take 30 mL [facility] 10 gram/15 9-16 by mouth ity o f mL oral 00:00: daily. [place] solution 00 [facility] sucralfate 2-0 Yes [id number] 1000mg Take 10 mL [facility] 100 mg/mL 9-16 by mouth ity of suspension 00:00: before [place] 00 meals and Medical at [facility] bedtime. lactulose 2-0 Yes [id number] 30mL Take 30 mL [facility] 10 gram/15 9-16 by mouth ity o f mL oral 00:00: daily. [place] solution 00 [facility] sucralfate 2-0 Yes [id number] 1000mg Take 10 mL [facility] 100 mg/mL 9-16 by mouth ity of suspension 00:00: before [place] 00 meals and Medical at [facility] bedtime. lactulose 2-0 Yes [id number] 30mL Take 30 mL [facility] 10 gram/15 9-16 by mouth ity o f mL oral 00:00: daily. [place] solution 00 [facility] sucralfate 2-0 Yes [id number] 1000mg Take 10 mL [facility] 100 mg/mL 9-16 by mouth ity of suspension 00:00: before [place] 00 meals and Medical at [facility] bedtime. lactulose 2-0 Yes [id number] 30mL Take 30 mL [facility] 10 gram/15 9-16 by mouth ity o f mL oral 00:00: daily. [place] solution 00 [facility] sucralfate 2-0 Yes [id number] 1000mg Take 10 mL [facility] 100 mg/mL 9-16 by mouth ity of suspension 00:00: before [place] 00 meals and Medical at [facility] bedtime. lactulose 2-0 Yes [id number] 30mL Take 30 mL [facility] 10 gram/15 9-16 by mouth ity o f mL oral 00:00: daily. [place] solution 00 [facility] [place] sucralfate 2-0 Yes [id number] 1000mg Take 10 mL [facility] 100 mg/mL 9-16 by mouth ity of suspension 00:00: before [place] 00 meals and Medical at [facility] bedtime. lactulose 2-0 Yes [id number] 30mL Take 30 mL [facility] 10 gram/15 9-16 by mouth ity o f mL oral 00:00: daily. [place] solution 00 [facility] sucralfate 2-0 Yes [id number] 1000mg Take 10 mL [facility] 100 mg/mL 9-16 by mouth ity of suspension 00:00: before [place] 00 meals and Medical at [facility] bedtime. lactulose 2-0 Yes [id number] 30mL Take 30 mL [facility] 10 gram/15 9-16 by mouth ity o f mL oral 00:00: daily. [place] solution 00 [facility] sucralfate 2-0 Yes [id number] 1000mg Take 10 mL [facility] 100 mg/mL 9-16 by mouth ity of suspension 00:00: before [place] 00 meals and [facility] at [facility] bedtime. lactulose 2-0 Yes [id number] 30mL Take 30 mL [facility] 10 gram/15 9-16 by mouth ity o f mL oral 00:00: daily. [place] solution 00 [facility] sucralfate 2-0 Yes [id number] 1000mg Take 10 mL [facility] 100 mg/mL 9-16 by mouth ity of suspension 00:00: before [place] 00 meals and [facility] at [facility] bedtime. lactulose 2-0 Yes [id number] 30mL Take 30 mL [facility] 10 gram/15 9-16 by mouth ity o f mL oral 00:00: daily. [place] solution 00 [facility] sucralfate 2-0 Yes [id number] 1000mg Take 10 mL [facility] 100 mg/mL 9-16 by mouth ity of suspension 00:00: before [place] 00 meals and [facility] at [facility] bedtime. lactulose 2-0 Yes [id number] 30mL Take 30 mL [facility] 10 gram/15 9-16 by mouth ity o f mL oral 00:00: daily. [place] solution 00 [facility] sucralfate 2-0 Yes [id number] 1000mg Take 10 mL [facility] 100 mg/mL 9-16 by mouth ity of suspension 00:00: before [place] 00 meals and [facility] at [facility] bedtime. lactulose 2-0 Yes [id number] 30mL Take 30 mL [facility] 10 gram/15 9-16 by mouth ity o f mL oral 00:00: daily. [place] solution 00 [facility] sucralfate 2-0 Yes [id number] 1000mg Take 10 mL [facility] 100 mg/mL 9-16 by mouth ity of suspension 00:00: before [place] 00 meals and [facility] at [facility] bedtime. lactulose 2-0 Yes [id number] 30mL Take 30 mL [facility] 10 gram/15 9-16 by mouth ity o f mL oral 00:00: daily. [place] solution 00 [facility] sucralfate 2021-0 Yes [id number] 1000mg Take 10 mL [facility] 100 mg/mL 9-16 by mouth ity of suspension 00:00: before [place] 00 meals and [facility] at [facility] bedtime. lactulose 2021-0 Yes [id number] 30mL Take 30 mL [facility] 10 gram/15 9-16 by mouth ity o f mL oral 00:00: daily. [place] solution 00 [facility] sucralfate 2-0 Yes [id number] 1000mg Take 10 mL [facility] 100 mg/mL 9-16 by mouth ity of suspension 00:00: before [place] 00 meals and [facility] at [facility] bedtime. lactulose 2021-0 Yes [id number] 30mL Take 30 mL [facility] 10 gram/15 9-16 by mouth ity o f mL oral 00:00: daily. [place] solution 00 [facility] sucralfate 2-0 Yes [id number] 1000mg Take 10 mL [facility] 100 mg/mL 9-16 by mouth ity of suspension 00:00: before [place] 00 meals and Medical at [facility] bedtime. lactulose 2-0 Yes [id number] 30mL Take 30 mL [facility] 10 gram/15 9-16 by mouth ity o f mL oral 00:00: daily. [place] solution 00 [facility] sucralfate 2-0 Yes [id number] 1000mg Take 10 mL [facility] 100 mg/mL 9-16 by mouth ity of suspension 00:00: before [place] 00 meals and [facility] at [facility] bedtime. lactulose 2-0 Yes [id number] 30mL Take 30 mL [facility] 10 gram/15 9-16 by mouth ity o f mL oral 00:00: daily. [place] solution 00 [facility] [place] sucralfate 2-0 Yes [id number] 1000mg Take 10 mL [facility] 100 mg/mL 9-16 by mouth ity of suspension 00:00: before [place] 00 meals and Medical at [facility] bedtime. lactulose 2-0 Yes [id number] 30mL Take 30 mL [facility] 10 gram/15 9-16 by mouth ity o f mL oral 00:00: daily. [place] solution 00 [facility] [place] sucralfate 2021-0 Yes [id number] 1000mg Take 10 mL [facility] 100 mg/mL 9-16 by mouth ity of suspension 00:00: before [place] 00 meals and Medical at [facility] bedtime. lactulose 2021-0 Yes [id number] 30mL Take 30 mL [facility] 10 gram/15 9-16 by mouth ity o f mL oral 00:00: daily. [place] solution 00 [facility] sucralfate 2021-0 Yes [id number] 1000mg Take 10 mL [facility] 100 mg/mL 9-16 by mouth ity of suspension 00:00: before [place] 00 meals and Medical at [facility] bedtime. lactulose 2021-0 Yes [id number] 30mL Take 30 mL [facility] 10 gram/15 9-16 by mouth ity o f mL oral 00:00: daily. [place] solution 00 [facility] sucralfate 2021-0 Yes [id number] 1000mg Take 10 mL [facility] 100 mg/mL 9-16 by mouth ity of suspension 00:00: before [place] 00 meals and Medical at [facility] bedtime. lactulose 2-0 Yes [id number] 30mL Take 30 mL [facility] 10 gram/15 9-16 by mouth ity o f mL oral 00:00: daily. [place] solution 00 [facility] [place] sucralfate 2-0 Yes [id number] 1000mg Take 10 mL [facility] 100 mg/mL 9-16 by mouth ity of suspension 00:00: before [place] 00 meals and Medical at [facility] bedtime. lactulose 2-0 Yes [id number] 30mL Take 30 mL [facility] 10 gram/15 9-16 by mouth ity o f mL oral 00:00: daily. [place] solution 00 [facility] [place] [facility] sucralfate 2-0 Yes [id number] 1000mg Take 10 mL [facility] 100 mg/mL 9-16 by mouth ity of suspension 00:00: before [place] 00 meals and Medical at [facility] bedtime. lactulose 2-0 Yes [id number] 30mL Take 30 mL [facility] 10 gram/15 9-16 by mouth ity o f mL oral 00:00: daily. [place] solution 00 [facility] [place] [facility] sucralfate 2021-0 Yes [id number] 1000mg Take 10 mL [facility] 100 mg/mL 9-16 by mouth ity of suspension 00:00: before [place] 00 meals and Medical at [facility] bedtime. lactulose 2021-0 Yes [id number] 30mL Take 30 mL [facility] 10 gram/15 9-16 by mouth ity o f mL oral 00:00: daily. [place] solution 00 [facility] sucralfate 2021-0 Yes [id number] 1000mg Take 10 mL [facility] 100 mg/mL 9-16 by mouth ity of suspension 00:00: before [place] 00 meals and Medical at [facility] bedtime. lactulose 2021-0 Yes [id number] 30mL Take 30 mL [facility] 10 gram/15 9-16 by mouth ity o f mL oral 00:00: daily. [place] solution 00 [facility] sucralfate 2021-0 Yes [id number] 1000mg Take 10 mL [facility] 100 mg/mL 9-16 by mouth ity of suspension 00:00: before [place] 00 meals and [facility] at [facility] bedtime. lactulose 2021-0 Yes [id number] 30mL Take 30 mL [facility] 10 gram/15 9-16 by mouth ity o f mL oral 00:00: daily. [place] solution 00 [facility] sucralfate 2-0 Yes [id number] 1000mg Take 10 mL [facility] 100 mg/mL 9-16 by mouth ity of suspension 00:00: before [place] 00 meals and Medical at [facility] bedtime. lactulose 2-0 Yes [id number] 30mL Take 30 mL [facility] 10 gram/15 9-16 by mouth ity o f mL oral 00:00: daily. [place] solution 00 [facility] sucralfate 2-0 Yes [id number] 1000mg Take 10 mL [facility] 100 mg/mL 9-16 by mouth ity of suspension 00:00: before [place] 00 meals and Medical at [facility] bedtime. lactulose 2-0 Yes [id number] 30mL Take 30 mL [facility] 10 gram/15 9-16 by mouth ity o f mL oral 00:00: daily. [place] solution 00 [facility] [place] sucralfate 2-0 Yes [id number] 1000mg Take 10 mL [facility] 100 mg/mL 9-16 by mouth ity of suspension 00:00: before [place] 00 meals and [facility] at [facility] bedtime. lactulose 2-0 Yes [id number] 30mL Take 30 mL [facility] 10 gram/15 9-16 by mouth ity o f mL oral 00:00: daily. [place] solution 00 [facility] [place] sucralfate 2-0 Yes [id number] 1000mg Take 10 mL [facility] 100 mg/mL 9-16 by mouth ity of suspension 00:00: before [place] 00 meals and Medical at Branch bedtime. lactulose 2-0 Yes [id number] 30mL Take 30 mL [facility] 10 gram/15 9-16 by mouth ity o f mL oral 00:00: daily. [place] solution 00 [facility] sucralfate 2021-0 Yes [id number] 1000mg Take 10 mL [facility] 100 mg/mL 9-16 by mouth ity of suspension 00:00: before [place] 00 meals and Medical at Branch bedtime. lactulose 2-0 Yes [id number] 30mL Take 30 mL [facility] 10 gram/15 9-16 by mouth ity o f mL oral 00:00: daily. [place] solution 00 [facility] sucralfate 2-0 Yes [id number] 1000mg Take 10 mL [facility] 100 mg/mL 9-16 by mouth ity of suspension 00:00: before [place] 00 meals and Medical at Branch bedtime. lactulose 2-0 Yes [id number] 30mL Take 30 mL [facility] 10 gram/15 9-16 by mouth ity o f mL oral 00:00: daily. [place] solution 00 [facility] sucralfate 2-0 Yes [id number] 1000mg Take 10 mL [facility] 100 mg/mL 9-16 by mouth ity of suspension 00:00: before [place] 00 meals and Medical at Branch bedtime. lactulose 2-0 Yes [id number] 30mL Take 30 mL [facility] 10 gram/15 9-16 by mouth ity o f mL oral 00:00: daily. [place] solution 00 [facility] sucralfate 2-0 Yes [id number] 1000mg Take 10 mL [facility] 100 mg/mL 9-16 by mouth ity of suspension 00:00: before [place] 00 meals and Medical at Branch bedtime. lactulose 2-0 Yes [id number] 30mL Take 30 mL [facility] 10 gram/15 9-16 by mouth ity o f mL oral 00:00: daily. [place] solution 00 [facility] sucralfate 2021-0 Yes [id number] 1000mg Take 10 mL [facility] 100 mg/mL 9-16 by mouth ity of suspension 00:00: before [place] 00 meals and Medical at Branch bedtime. lactulose 2021-0 Yes [id number] 30mL Take 30 mL [facility] 10 gram/15 9-16 by mouth ity o f mL oral 00:00: daily. [place] solution 00 [facility] sucralfate 2021-0 Yes [id number] 1000mg Take 10 mL [facility] 100 mg/mL 9-16 by mouth ity of suspension 00:00: before [place] 00 meals and Medical at Branch bedtime. lactulose 2021-0 Yes [id number] 30mL Take 30 mL [facility] 10 gram/15 9-16 by mouth ity o f mL oral 00:00: daily. [place] solution 00 [facility] sucralfate 2021-0 Yes [id number] 1000mg Take 10 mL [facility] 100 mg/mL 9-16 by mouth ity of suspension 00:00: before [place] 00 meals and Medical at Branch bedtime. lactulose 2021-0 Yes [id number] 30mL Take 30 mL [facility] 10 gram/15 9-16 by mouth ity o f mL oral 00:00: daily. [place] solution 00 [facility] sucralfate 2021-0 Yes [id number] 1000mg Take 10 mL [facility] 100 mg/mL 9-16 by mouth ity of suspension 00:00: before [place] 00 meals and Medical at Branch bedtime. lactulose 2021-0 Yes [id number] 30mL Take 30 mL [facility] 10 gram/15 9-16 by mouth ity o f mL oral 00:00: daily. [place] solution 00 [facility] sucralfate 2-0 Yes [id number] 1000mg Take 10 mL [facility] 100 mg/mL 9-16 by mouth ity of suspension 00:00: before [place] 00 meals and Medical at Branch bedtime. lactulose 2-0 Yes [id number] 30mL Take 30 mL [facility] 10 gram/15 9-16 by mouth ity o f mL oral 00:00: daily. [place] solution 00 [facility] sucralfate 2-0 Yes [id number] 1000mg Take 10 mL [facility] 100 mg/mL 9-16 by mouth ity of suspension 00:00: before [place] 00 meals and Medical at Branch bedtime. lactulose 2021-0 Yes [id number] 30mL Take 30 mL [facility] 10 gram/15 9-16 by mouth ity o f mL oral 00:00: daily. [place] solution 00 [facility] sucralfate 2021-0 Yes [id number] 1000mg Take 10 mL [facility] 100 mg/mL 9-16 by mouth ity of suspension 00:00: before [place] 00 meals and Medical at Branch bedtime. lactulose 2021-0 Yes [id number] 30mL Take 30 mL [facility] 10 gram/15 9-16 by mouth ity o f mL oral 00:00: daily. [place] solution 00 [facility] sucralfate 2021-0 Yes [id number] 1000mg Take 10 mL [facility] 100 mg/mL 9-16 by mouth ity of suspension 00:00: before [place] 00 meals and Medical at Branch bedtime. lactulose 2021-0 Yes [id number] 30mL Take 30 mL [facility] 10 gram/15 9-16 by mouth ity o f mL oral 00:00: daily. [place] solution 00 [facility] sucralfate 2021-0 Yes [id number] 1000mg Take 10 mL [facility] 100 mg/mL 9-16 by mouth ity of suspension 00:00: before [place] 00 meals and Medical at Branch bedtime. lactulose 2021-0 Yes [id number] 30mL Take 30 mL [facility] 10 gram/15 9-16 by mouth ity o f mL oral 00:00: daily. [place] solution 00 [facility] sucralfate 2021-0 Yes [id number] 1000mg Take 10 mL [facility] 100 mg/mL 9-16 by mouth ity of suspension 00:00: before [place] 00 meals and Medical at Branch bedtime. lactulose 2021-0 Yes [id number] 30mL Take 30 mL [facility] 10 gram/15 9-16 by mouth ity o f mL oral 00:00: daily. [place] solution 00 [facility] sucralfate 2-0 Yes [id number] 1000mg Take 10 mL [facility] 100 mg/mL 9-16 by mouth ity of suspension 00:00: before [place] 00 meals and Medical at Branch bedtime. lactulose 2-0 Yes [id number] 30mL Take 30 mL [facility] 10 gram/15 9-16 by mouth ity o f mL oral 00:00: daily. [place] solution [facility] sucralfate 0 Yes [id number] 1000mg Take 10 mL [facility] 100 mg/mL 9-16 by mouth ity of suspension 00:00: before meals and Medical at Branch bedtime. Sucralfate 0 Yes 1g Take 10 mL [facility] else[facility] (Carafate) 9-16 (1 g [place] 1 GM/10ML 00:00: total) by - oral 00 mouth Externa Suspension before l meals and at bedtime Lactulose 2021-0 2023- No 20g Take 30 mL [facility] else[facility] 10 GM/15ML 9-16 04-10 (20 g [place] oral 00:00: 00:00 total) by - Solution 00 :00 mouth Externa daily l pantoprazol 0 Yes 40mg Take 40 mg [facility] e 40 mg EC 9-14 by mouth ity o f tablet 00:00: daily. [place] [facility] traMADoL 50 Yes TAKE 1 [facility] ers mg tablet 9-14 TABLET BY ity o f 00:00: MOUTH EVERY 8 Medical HOURS Branch NEEDED pantoprazol 2021-0 Yes 40mg Take 40 mg [facility] e 40 mg EC 9-14 by mouth ity o f tablet 00:00: daily. [place] [facility] traMADoL 50 0 Yes TAKE 1 [facility] ers mg tablet 9-14 TABLET BY ity o f 00:00: MOUTH EVERY 8 Medical HOURS Branch NEEDED pantoprazol 2021-0 Yes 40mg Take 40 mg [facility] e 40 mg EC 9-14 by mouth ity o f tablet 00:00: daily. [facility] traMADoL 50 0 Yes TAKE 1 [facility] ers mg tablet 9-14 TABLET BY ity o f 00:00: MOUTH EVERY 8 Medical HOURS Branch NEEDED pantoprazol 2-0 Yes 40mg Take 40 mg [facility] e 40 mg EC 9-14 by mouth ity o f tablet 00:00: daily. [place] [facility] traMADoL 50 0 Yes TAKE 1 [facility] ers mg tablet 9-14 TABLET BY ity o f 00:00: MOUTH EVERY 8 Medical HOURS Branch NEEDED pantoprazol 2021-0 Yes 40mg Take 40 mg [facility] e 40 mg EC 9-14 by mouth ity o f tablet 00:00: daily. [place] [facility] traMADoL 50 2021-0 Yes TAKE 1 [facility] ers mg tablet 9-14 TABLET BY ity o f 00:00: MOUTH EVERY 8 Medical HOURS Branch NEEDED pantoprazol 2-0 Yes 40mg Take 40 mg [facility] e 40 mg EC 9-14 by mouth ity o f tablet 00:00: daily. [place] [facility] traMADoL 50 2021-0 Yes TAKE 1 [facility] ers mg tablet 9-14 TABLET BY ity o f 00:00: MOUTH EVERY 8 Medical HOURS Branch NEEDED pantoprazol 2-0 Yes 40mg Take 40 mg [facility] e 40 mg EC 9-14 by mouth ity o f tablet 00:00: daily. [place] [facility] traMADoL 50 2021-0 Yes TAKE 1 [facility] ers mg tablet 9-14 TABLET BY ity o f 00:00: MOUTH EVERY 8 Medical HOURS Branch NEEDED pantoprazol 2-0 Yes 40mg Take 40 mg [facility] e 40 mg EC 9-14 by mouth ity o f tablet 00:00: daily. [place] [facility] traMADoL 50 2021-0 Yes TAKE 1 [facility] ers mg tablet 9-14 TABLET BY ity o f 00:00: MOUTH EVERY 8 Medical HOURS Branch NEEDED pantoprazol 2-0 Yes 40mg Take 40 mg [facility] e 40 mg EC 9-14 by mouth ity o f tablet 00:00: daily. [place] [facility] traMADoL 50 2021-0 Yes TAKE 1 [facility] ers mg tablet 9-14 TABLET BY ity o f 00:00: MOUTH EVERY 8 Medical HOURS Branch NEEDED pantoprazol 2-0 Yes 40mg Take 40 mg [facility] e 40 mg EC 9-14 by mouth ity o f tablet 00:00: daily. [place] [facility] traMADoL 50 2021-0 Yes TAKE 1 [facility] ers mg tablet 9-14 TABLET BY ity o f 00:00: MOUTH EVERY 8 Medical HOURS Branch NEEDED pantoprazol 2-0 Yes 40mg Take 40 mg [facility] e 40 mg EC 9-14 by mouth ity o f tablet 00:00: daily. [place] [facility] traMADoL 50 2021-0 Yes TAKE 1 [facility] ers mg tablet 9-14 TABLET BY ity o f 00:00: MOUTH EVERY 8 Medical HOURS Branch NEEDED pantoprazol 2022-0 Yes 40mg Take 40 mg [facility] e 40 mg EC 9-14 by mouth ity o f tablet 00:00: daily. [place] [facility] traMADoL 50 2021-0 Yes TAKE 1 [facility] ers mg tablet 9-14 TABLET BY ity o f 00:00: MOUTH EVERY 8 Medical HOURS Branch NEEDED pantoprazol 2022-0 Yes 40mg Take 40 mg [facility] e 40 mg EC 9-14 by mouth ity o f tablet 00:00: daily. [place] [facility] traMADoL 50 2021-0 Yes TAKE 1 [facility] ers mg tablet 9-14 TABLET BY ity o f 00:00: MOUTH EVERY 8 Medical HOURS Branch NEEDED pantoprazol 2022-0 Yes 40mg Take 40 mg [facility] e 40 mg EC 9-14 by mouth ity o f tablet 00:00: daily. [place] [facility] traMADoL 50 2021-0 Yes TAKE 1 [facility] ers mg tablet 9-14 TABLET BY ity o f 00:00: MOUTH EVERY 8 Medical HOURS Branch NEEDED pantoprazol 2-0 Yes 40mg Take 40 mg [facility] e 40 mg EC 9-14 by mouth ity o f tablet 00:00: daily. [place] [facility] traMADoL 50 2021-0 Yes TAKE 1 [facility] ers mg tablet 9-14 TABLET BY ity o f 00:00: MOUTH EVERY 8 Medical HOURS Branch NEEDED pantoprazol 2022-0 Yes 40mg Take 40 mg [facility] e 40 mg EC 9-14 by mouth ity o f tablet 00:00: daily. [place] [facility] traMADoL 50 2-0 Yes TAKE 1 [facility] ers mg tablet 9-14 TABLET BY ity o f 00:00: MOUTH EVERY 8 Medical HOURS Branch NEEDED pantoprazol 2022-0 Yes 40mg Take 40 mg [facility] e 40 mg EC 9-14 by mouth ity o f tablet 00:00: daily. [place] [facility] traMADoL 50 2-0 Yes TAKE 1 [facility] ers mg tablet 9-14 TABLET BY ity o f 00:00: MOUTH EVERY 8 Medical HOURS Branch NEEDED pantoprazol 2022-0 Yes 40mg Take 40 mg [facility] e 40 mg EC 9-14 by mouth ity o f tablet 00:00: daily. [place] [facility] traMADoL 50 2022-0 Yes TAKE 1 [facility] ers mg tablet 9-14 TABLET BY ity o f 00:00: MOUTH EVERY 8 Medical HOURS Branch NEEDED pantoprazol 2021-0 Yes 40mg Take 40 mg [facility] e 40 mg EC 9-14 by mouth ity o f tablet 00:00: daily. [place] [facility] traMADoL 50 2021-0 Yes TAKE 1 [facility] ers mg tablet 9-14 TABLET BY ity o f 00:00: MOUTH EVERY 8 Medical HOURS Branch NEEDED pantoprazol 2-0 Yes 40mg Take 40 mg [facility] e 40 mg EC 9-14 by mouth ity o f tablet 00:00: daily. [place] [facility] traMADoL 50 2021-0 Yes TAKE 1 [facility] ers mg tablet 9-14 TABLET BY ity o f 00:00: MOUTH EVERY 8 Medical HOURS Branch NEEDED pantoprazol 2021-0 Yes 40mg Take 40 mg [facility] e 40 mg EC 9-14 by mouth ity o f tablet 00:00: daily. [place] [facility] traMADoL 50 2021-0 Yes TAKE 1 [facility] ers mg tablet 9-14 TABLET BY ity o f 00:00: MOUTH EVERY 8 Medical HOURS Branch NEEDED pantoprazol 2021-0 Yes 40mg Take 40 mg [facility] e 40 mg EC 9-14 by mouth ity o f tablet 00:00: daily. [place] [facility] traMADoL 50 2021-0 Yes TAKE 1 [facility] ers mg tablet 9-14 TABLET BY ity o f 00:00: MOUTH EVERY 8 Medical HOURS Branch NEEDED pantoprazol 2-0 Yes 40mg Take 40 mg [facility] e 40 mg EC 9-14 by mouth ity o f tablet 00:00: daily. [place] [facility] traMADoL 50 2021-0 Yes TAKE 1 [facility] ers mg tablet 9-14 TABLET BY ity o f 00:00: MOUTH EVERY 8 Medical HOURS Branch NEEDED pantoprazol 2-0 Yes 40mg Take 40 mg [facility] e 40 mg EC 9-14 by mouth ity o f tablet 00:00: daily. [place] [facility] traMADoL 50 2021-0 Yes TAKE 1 [facility] mg tablet 9-14 TABLET BY ity o f 00:00: MOUTH EVERY 8 Medical HOURS Branch NEEDED pantoprazol 2-0 Yes 40mg Take 40 mg [facility] e 40 mg EC 9-14 by mouth ity o f tablet 00:00: daily. [place] [facility] traMADoL 50 2021-0 Yes TAKE 1 [facility] ers mg tablet 9-14 TABLET BY ity o f 00:00: MOUTH EVERY 8 Medical HOURS Branch NEEDED pantoprazol 2-0 Yes 40mg Take 40 mg [facility] e 40 mg EC 9-14 by mouth ity o f tablet 00:00: daily. [place] [facility] traMADoL 50 2021-0 Yes TAKE 1 [facility] ers mg tablet 9-14 TABLET BY ity o f 00:00: MOUTH EVERY 8 Medical HOURS Branch NEEDED pantoprazol 2-0 Yes 40mg Take 40 mg [facility] e 40 mg EC 9-14 by mouth ity o f tablet 00:00: daily. [place] [facility] traMADoL 50 2021-0 Yes TAKE 1 [facility] ers mg tablet 9-14 TABLET BY ity o f 00:00: MOUTH EVERY 8 Medical HOURS Branch NEEDED pantoprazol 2-0 Yes 40mg Take 40 mg [facility] e 40 mg EC 9-14 by mouth ity o f tablet 00:00: daily. [place] [facility] traMADoL 50 2021-0 Yes TAKE 1 [facility] mg tablet 9-14 TABLET BY ity o f 00:00: MOUTH EVERY 8 Medical HOURS Branch NEEDED pantoprazol 2-0 Yes 40mg Take 40 mg [facility] e 40 mg EC 9-14 by mouth ity o f tablet 00:00: daily. [place] [facility] traMADoL 50 2021-0 Yes TAKE 1 [facility] ers mg tablet 9-14 TABLET BY ity o f 00:00: MOUTH EVERY 8 Medical HOURS Branch NEEDED pantoprazol 2-0 Yes 40mg Take 40 mg [facility] e 40 mg EC 9-14 by mouth ity o f tablet 00:00: daily. [place] [facility] traMADoL 50 2021-0 Yes TAKE 1 [facility] ers mg tablet 9-14 TABLET BY ity o f 00:00: MOUTH EVERY 8 Medical HOURS Branch NEEDED pantoprazol 2-0 Yes 40mg Take 40 mg [facility] e 40 mg EC 9-14 by mouth ity o f tablet 00:00: daily. [place] [facility] traMADoL 50 2021-0 Yes TAKE 1 [facility] mg tablet 9-14 TABLET BY ity o f 00:00: MOUTH EVERY 8 Medical HOURS Branch NEEDED pantoprazol 2022-0 Yes 40mg Take 40 mg [facility] e 40 mg EC 9-14 by mouth ity o f tablet 00:00: daily. [place] [facility] traMADoL 50 2021-0 Yes TAKE 1 [facility] ers mg tablet 9-14 TABLET BY ity o f 00:00: MOUTH EVERY 8 Medical HOURS Branch NEEDED pantoprazol 2022-0 Yes 40mg Take 40 mg [facility] e 40 mg EC 9-14 by mouth ity o f tablet 00:00: daily. [place] [facility] traMADoL 50 2021-0 Yes TAKE 1 [facility] ers mg tablet 9-14 TABLET BY ity o f 00:00: MOUTH EVERY 8 Medical HOURS Branch NEEDED pantoprazol 2022-0 Yes 40mg Take 40 mg [facility] e 40 mg EC 9-14 by mouth ity o f tablet 00:00: daily. [place] [facility] traMADoL 50 2021-0 Yes TAKE 1 [facility] ers mg tablet 9-14 TABLET BY ity o f 00:00: MOUTH EVERY 8 Medical HOURS Branch NEEDED pantoprazol 2-0 Yes 40mg Take 40 mg [facility] e 40 mg EC 9-14 by mouth ity o f tablet 00:00: daily. [place] [facility] traMADoL 50 2021-0 Yes TAKE 1 [facility] mg tablet 9-14 TABLET BY ity o f 00:00: MOUTH EVERY 8 Medical HOURS Branch NEEDED pantoprazol 2022-0 Yes 40mg Take 40 mg [facility] e 40 mg EC 9-14 by mouth ity o f tablet 00:00: daily. [place] [facility] traMADoL 50 2-0 Yes TAKE 1 [facility] ers mg tablet 9-14 TABLET BY ity o f 00:00: MOUTH EVERY 8 Medical HOURS Branch NEEDED pantoprazol 2022-0 Yes 40mg Take 40 mg [facility] e 40 mg EC 9-14 by mouth ity o f tablet 00:00: daily. [place] [facility] traMADoL 50 2-0 Yes TAKE 1 [facility] mg tablet 9-14 TABLET BY ity o f 00:00: MOUTH EVERY 8 Medical HOURS Branch NEEDED pantoprazol 2022-0 Yes 40mg Take 40 mg [facility] e 40 mg EC 9-14 by mouth ity o f tablet 00:00: daily. [place] [facility] traMADoL 50 2022-0 Yes TAKE 1 [facility] mg tablet 9-14 TABLET BY ity o f 00:00: MOUTH EVERY 8 Medical HOURS Branch NEEDED pantoprazol 2021-0 Yes 40mg Take 40 mg [facility] e 40 mg EC 9-14 by mouth ity o f tablet 00:00: daily. [place] [facility] traMADoL 50 2021-0 Yes TAKE 1 [facility] mg tablet 9-14 TABLET BY ity o f 00:00: MOUTH EVERY 8 Medical HOURS Branch NEEDED pantoprazol 2-0 Yes 40mg Take 40 mg [facility] e 40 mg EC 9-14 by mouth ity o f tablet 00:00: daily. [place] [facility] traMADoL 50 2021-0 Yes TAKE 1 [facility] mg tablet 9-14 TABLET BY ity o f 00:00: MOUTH EVERY 8 Medical HOURS Branch NEEDED pantoprazol 2021-0 Yes 40mg Take 40 mg [facility] e 40 mg EC 9-14 by mouth ity o f tablet 00:00: daily. [place] [facility] traMADoL 50 2021-0 Yes TAKE 1 [facility] mg tablet 9-14 TABLET BY ity o f 00:00: MOUTH EVERY 8 Medical HOURS Branch NEEDED pantoprazol 2021-0 Yes 40mg Take 40 mg [facility] e 40 mg EC 9-14 by mouth ity o f tablet 00:00: daily. [place] [facility] traMADoL 50 2021-0 Yes TAKE 1 [facility] mg tablet 9-14 TABLET BY ity o f 00:00: MOUTH EVERY 8 Medical HOURS Branch NEEDED pantoprazol 2-0 Yes 40mg Take 40 mg [facility] e 40 mg EC 9-14 by mouth ity o f tablet 00:00: daily. [place] [facility] traMADoL 50 2021-0 Yes TAKE 1 [facility] mg tablet 9-14 TABLET BY ity o f 00:00: MOUTH EVERY 8 Medical HOURS Branch NEEDED pantoprazol 2-0 Yes 40mg Take 40 mg [facility] e 40 mg EC 9-14 by mouth ity o f tablet 00:00: daily. [place] [facility] traMADoL 50 2021-0 Yes TAKE 1 [facility] mg tablet 9-14 TABLET BY ity o f 00:00: MOUTH EVERY 8 Medical HOURS Branch NEEDED pantoprazol 2-0 Yes 40mg Take 40 mg [facility] e 40 mg EC 9-14 by mouth ity o f tablet 00:00: daily. [place] [facility] traMADoL 50 2021-0 Yes TAKE 1 [facility] mg tablet 9-14 TABLET BY ity o f 00:00: MOUTH EVERY 8 Medical HOURS Branch NEEDED pantoprazol 2-0 Yes 40mg Take 40 mg [facility] e 40 mg EC 9-14 by mouth ity o f tablet 00:00: daily. [place] [facility] traMADoL 50 2021-0 Yes TAKE 1 [facility] mg tablet 9-14 TABLET BY ity o f 00:00: MOUTH EVERY 8 Medical HOURS Branch NEEDED pantoprazol 2-0 Yes 40mg Take 40 mg [facility] e 40 mg EC 9-14 by mouth ity o f tablet 00:00: daily. [place] [facility] traMADoL 50 2021-0 Yes TAKE 1 [facility] mg tablet 9-14 TABLET BY ity o f 00:00: MOUTH EVERY 8 Medical HOURS Branch NEEDED pantoprazol 2-0 Yes 40mg Take 40 mg [facility] e 40 mg EC 9-14 by mouth ity o f tablet 00:00: daily. [place] [facility] traMADoL 50 2021-0 Yes TAKE 1 [facility] mg tablet 9-14 TABLET BY ity o f 00:00: MOUTH EVERY 8 Medical HOURS Branch NEEDED pantoprazol 2-0 Yes 40mg Take 40 mg [facility] e 40 mg EC 9-14 by mouth ity o f tablet 00:00: daily. [place] [facility] traMADoL 50 2021-0 Yes TAKE 1 [facility] mg tablet 9-14 TABLET BY ity o f 00:00: MOUTH EVERY 8 Medical HOURS Branch NEEDED pantoprazol 2-0 Yes 40mg Take 40 mg [facility] e 40 mg EC 9-14 by mouth ity o f tablet 00:00: daily. [place] [facility] traMADoL 50 2021-0 Yes TAKE 1 [facility] mg tablet 9-14 TABLET BY ity o f 00:00: MOUTH EVERY 8 Medical HOURS Branch NEEDED pantoprazol 2-0 Yes 40mg Take 40 mg [facility] 40 mg EC 9-14 by mouth ity o f tablet 00:00: daily. [place] [facility] traMADoL 50 2021-0 Yes TAKE 1 [facility] mg tablet 9-14 TABLET BY ity o f 00:00: MOUTH EVERY 8 Medical HOURS Branch NEEDED pantoprazol 2022-0 Yes 40mg Take 40 mg [facility] 40 mg EC 9-14 by mouth ity o f tablet 00:00: daily. [place] [facility] traMADoL 50 2021-0 Yes TAKE 1 [facility] mg tablet 9-14 TABLET BY ity o f 00:00: MOUTH EVERY 8 Medical HOURS Branch NEEDED pantoprazol 2022-0 Yes 40mg Take 40 mg [facility] 40 mg EC 9-14 by mouth ity o f tablet 00:00: daily. [place] [facility] traMADoL 50 2021-0 Yes TAKE 1 [facility] mg tablet 9-14 TABLET BY ity o f 00:00: MOUTH EVERY 8 Medical HOURS Branch NEEDED pantoprazol 2022-0 Yes 40mg Take 40 mg [facility] 40 mg EC 9-14 by mouth ity o f tablet 00:00: daily. [place] [facility] traMADoL 50 2021-0 Yes TAKE 1 [facility] mg tablet 9-14 TABLET BY ity o f 00:00: MOUTH EVERY 8 Medical HOURS Branch NEEDED pantoprazol 2-0 Yes 40mg Take 40 mg [facility] 40 mg EC 9-14 by mouth ity o f tablet 00:00: daily. [place] [facility] traMADoL 50 2021-0 Yes TAKE 1 [facility] mg tablet 9-14 TABLET BY ity o f 00:00: MOUTH EVERY 8 Medical HOURS Branch NEEDED pantoprazol 2022-0 Yes 40mg Take 40 mg [facility] e 40 mg EC 9-14 by mouth ity o f tablet 00:00: daily. [place] [facility] traMADoL 50 2-0 Yes TAKE 1 [facility] mg tablet 9-14 TABLET BY ity o f 00:00: MOUTH EVERY 8 Medical HOURS Branch NEEDED pantoprazol 2022-0 Yes 40mg Take 40 mg [facility] e 40 mg EC 9-14 by mouth ity o f tablet 00:00: daily. [place] [facility] traMADoL 50 2-0 Yes TAKE 1 [facility] mg tablet 9-14 TABLET BY ity o f 00:00: MOUTH EVERY 8 Medical HOURS Branch NEEDED pantoprazol 2022-0 Yes 40mg Take 40 mg [facility] 40 mg EC 9-14 by mouth ity o f tablet 00:00: daily. [place] [facility] traMADoL 50 2022-0 Yes TAKE 1 [facility] mg tablet 9-14 TABLET BY ity o f 00:00: MOUTH [place] 00 EVERY 8 Medical HOURS Branch NEEDED pantoprazol 2021-0 Yes 40mg Take 40 mg [facility] e 40 mg EC 9-14 by mouth ity o f tablet 00:00: daily. [place] [facility] traMADoL 50 2021-0 Yes TAKE 1 [facility] mg tablet 9-14 TABLET BY ity o f 00:00: MOUTH [place] 00 EVERY 8 Medical HOURS Branch NEEDED pantoprazol 2-0 Yes 40mg Take 40 mg [facility] e 40 mg EC 9-14 by mouth ity o f tablet 00:00: daily. [place] [facility] traMADoL 50 2021-0 Yes TAKE 1 [facility] mg tablet 9-14 TABLET BY ity o f 00:00: MOUTH [place] 00 EVERY 8 Medical HOURS Branch NEEDED pantoprazol 2021-0 Yes 40mg Take 40 mg [facility] e 40 mg EC 9-14 by mouth ity o f tablet 00:00: daily. [place] [facility] traMADoL 50 2021-0 Yes TAKE 1 [facility] mg tablet 9-14 TABLET BY ity o f 00:00: MOUTH [place] 00 EVERY 8 Medical HOURS Branch NEEDED pantoprazol 2021-0 Yes 40mg Take 40 mg [facility] 40 mg EC 9-14 by mouth ity o f tablet 00:00: daily. [place] [facility] traMADoL 50 2021-0 Yes TAKE 1 [facility] mg tablet 9-14 TABLET BY ity o f 00:00: MOUTH [place] 00 EVERY 8 Medical HOURS Branch NEEDED pantoprazol 2-0 Yes 40mg Take 40 mg [facility] 40 mg EC 9-14 by mouth ity o f tablet 00:00: daily. [place] [facility] traMADoL 50 0 Yes TAKE 1 [facility] mg tablet 9-14 TABLET BY ity o f 00:00: MOUTH EVERY 8 Medical HOURS Branch NEEDED Tramadol 2-0 Yes 50mg [id number] Take 1 [facility] HCl 9-14 [id number] tablet (50 Sey bold (ULTRAM) 50 00:00: 3D mg total) - MG oral 00 by mouth Externa Tablet every 8 l hours as needed pantoprazol 2022-0 Yes 40mg QD Take 40 mg [facility] e 9-14 by mouth 1 [facility] (ProtoNix) 00:00: (one) time 40 MG EC 00 each day. tablet pantoprazol 2-0 Yes 40mg QD Take 40 mg [facility] e 9-14 by mouth 1 [facility] (ProtoNix) 00:00: (one) time 40 MG EC 00 each day. tablet Pantoprazol 2-0 2023- No 40mg Take 1 [place] sey e Sodium 40 9-14 04-10 tablet (40 S eybold MG oral 00:00: 00:00 mg total) - Tablet 00 :00 by mouth Externa Delayed daily l Response metoclopram 2022-0 Yes [id number] 10mg Take 1 [facility] rochelle HCl 8-31 tablet by ity of (REGLAN) 10 00:00: mouth [place] mg tablet 00 before Medical meals. Branch metoclopram 2022-0 Yes [id number] 10mg Take 1 [facility] rochelle HCl 8-31 tablet by ity of (REGLAN) 10 00:00: mouth [place] mg tablet 00 before Medical meals. Branch metoclopram 2022-0 Yes [id number] 10mg Take 1 [facility] rochelle HCl 8-31 tablet by ity of (REGLAN) 10 00:00: mouth [place] mg tablet 00 before Medical meals. Branch metoclopram 2022-0 Yes [id number] 10mg Take 1 [facility] rochelle HCl 8-31 tablet by ity of (REGLAN) 10 00:00: mouth [place] mg tablet 00 before Medical meals. Branch metoclopram 2022-0 Yes [id number] 10mg Take 1 [facility] ro[place] HCl 8-31 tablet by ity of (REGLAN) 10 00:00: mouth [place] mg tablet 00 before Medical meals. Branch metoclopram 2022-0 Yes [id number] 10mg Take 1 [facility] rochelle HCl 8-31 tablet by ity of (REGLAN) 10 00:00: mouth [place] mg tablet 00 before Medical meals. Branch metoclopram 2022-0 Yes [id number] 10mg Take 1 [facility] ro[place]le HCl 8-31 tablet by ity of (REGLAN) 10 00:00: mouth [place] mg tablet 00 before Medical meals. Branch metoclopram 2022-0 Yes [id number] 10mg Take 1 [facility] rochelle HCl 8-31 tablet by ity of (REGLAN) 10 00:00: mouth [place] mg tablet 00 before Medical meals. Branch metoclopram 2022-0 Yes [id number] 10mg Take 1 [facility] ro[place]le HCl 8-31 tablet by ity of (REGLAN) 10 00:00: mouth [place] mg tablet 00 before Medical meals. Branch metoclopram 2022-0 Yes [id number] 10mg Take 1 [facility] ro[place] HCl 8-31 tablet by ity of (REGLAN) 10 00:00: mouth [place] mg tablet 00 before Medical meals. Branch metoclopram 2022-0 Yes [id number] 10mg Take 1 [facility] rochelle HCl 8-31 tablet by ity of (REGLAN) 10 00:00: mouth [place] mg tablet 00 before Medical meals. Branch metoclopram 2022-0 Yes [id number] 10mg Take 1 [facility] ro[place]le HCl 8-31 tablet by ity of (REGLAN) 10 00:00: mouth [place] mg tablet 00 before Medical meals. Branch metoclopram 2022-0 Yes [id number] 10mg Take 1 [facility] ro[facility]le HCl 8-31 tablet by ity of (REGLAN) 10 00:00: mouth [place] mg tablet 00 before Medical meals. Branch metoclopram 2022-0 Yes [id number] 10mg Take 1 [facility] ro[facility]le HCl 8-31 tablet by ity of (REGLAN) 10 00:00: mouth [place] mg tablet 00 before Medical meals. Branch metoclopram 2022-0 Yes [id number] 10mg Take 1 [facility] rochelle HCl 8-31 tablet by ity of (RE[facility]) 10 00:00: mouth [place] mg tablet 00 before Medical meals. Branch metoclopram 2022-0 Yes [id number] 10mg Take 1 [facility] rochelle HCl 8-31 tablet by [facility]y of ([facility]) 10 00:00: mouth [place] mg tablet 00 before Medical meals. Branch metoclopram 2022-0 Yes [id number] 10mg Take 1 [facility] rochelle HCl 8-31 tablet by [facility]y of ([facility]) 10 00:00: mouth [place] mg tablet 00 before Medical meals. Branch metoclopram 2022-0 Yes [id number] 10mg Take 1 [facility] rochelle HCl 8-31 tablet by ity of ([facility]) 10 00:00: mouth [place] mg tablet 00 before Medical meals. Branch metoclopram 2022-0 Yes [id number] 10mg Take 1 [facility] rochelle HCl 8-31 tablet by ity of ([facility]) 10 00:00: mouth [place] mg tablet 00 before Medical meals. Branch metoclopram 2022-0 Yes [id number] 10mg Take 1 [facility] rochelle HCl 8-31 tablet by ity of (RE[facility]) 10 00:00: mouth [place] mg tablet 00 before Medical meals. Branch metoclopram 2022-0 Yes [id number] 10mg Take 1 [facility] rochelle HCl 8-31 tablet by ity of ([facility]) 10 00:00: mouth [place] mg tablet 00 before Medical meals. Branch metoclopram 2022-0 Yes [id number] 10mg Take 1 [facility] rochelle HCl 8-31 tablet by ity of (REGL[facility]) 10 00:00: mouth [place] mg tablet 00 before Medical meals. Branch metoclopram 2022-0 Yes [id number] 10mg Take 1 [facility] rochelle HCl 8-31 tablet by ity of (REGL[facility]) 10 00:00: mouth [place] mg tablet 00 before Medical meals. Branch metoclopram 2022-0 Yes [id number] 10mg Take 1 [facility] rochelle HCl 8-31 tablet by [facility]y of (REGL[facility]) 10 00:00: mouth [place] mg tablet 00 before Medical meals. Branch metoclopram 2022-0 Yes [id number] 10mg Take 1 [facility] rochelle HCl 8-31 tablet by ity of (RE[facility]) 10 00:00: mouth [place] mg tablet 00 before Medical meals. Branch metoclopram 2022-0 Yes [id number] 10mg Take 1 [facility] rochelle HCl 8-31 tablet by ity of (REGLAN) 10 00:00: mouth [place] mg tablet 00 before Medical meals. Branch metoclopram 2022-0 Yes [id number] 10mg Take 1 [facility] rochelle HCl 8-31 tablet by ity of (RE[facility]) 10 00:00: mouth [place] mg tablet 00 before Medical meals. Branch metoclopram 2022-0 Yes [id number] 10mg Take 1 [facility] rochelle HCl 8-31 tablet by ity of (RE[facility]) 10 00:00: mouth [place] mg tablet 00 before Medical meals. Branch metoclopram 2022-0 Yes [id number] 10mg Take 1 [facility] rochelle HCl 8-31 tablet by ity of (RE[facility]) 10 00:00: mouth [place] mg tablet 00 before Medical meals. Branch metoclopram 2022-0 Yes [id number] 10mg Take 1 [facility] rochelle HCl 8-31 tablet by ity of (RE[facility]) 10 00:00: mouth [place] mg tablet 00 before Medical meals. Branch metoclopram 2022-0 Yes [id number] 10mg Take 1 [facility] rochelle HCl 8-31 tablet by [facility]y of ([facility]) 10 00:00: mouth [place] mg tablet 00 before Medical meals. Branch metoclopram 2022-0 Yes [id number] 10mg Take 1 [facility] rochelle HCl 8-31 tablet by ity of ([facility]) 10 00:00: mouth [place] mg tablet 00 before Medical meals. Branch metoclopram 2022-0 Yes [id number] 10mg Take 1 [facility] rochelle HCl 8-31 tablet by ity of ([facility]) 10 00:00: mouth [place] mg tablet 00 before Medical meals. Branch metoclopram 2022-0 Yes [id number] 10mg Take 1 [facility] rochelle HCl 8-31 tablet by ity of ([facility]) 10 00:00: mouth [place] mg tablet 00 before Medical meals. Branch metoclopram 2022-0 Yes [id number] 10mg Take 1 [facility] rochelle HCl 8-31 tablet by ity of ([facility]) 10 00:00: mouth [place] mg tablet 00 before Medical meals. Branch metoclopram 2022-0 Yes [id number] 10mg Take 1 [facility] rochelle HCl 8-31 tablet by ity of ([facility]) 10 00:00: mouth [place] mg tablet 00 before Medical meals. Branch metoclopram 2022-0 Yes [id number] 10mg Take 1 [facility] rochelle HCl 8-31 tablet by ity of ([facility]) 10 00:00: mouth [place] mg tablet 00 before Medical meals. Branch metoclopram 2022-0 Yes [id number] 10mg Take 1 [facility] rochelle HCl 8-31 tablet by ity of ([facility]) 10 00:00: mouth [place] mg tablet 00 before Medical meals. Branch metoclopram 2022-0 Yes [id number] 10mg Take 1 [facility] rochelle HCl 8-31 tablet by ity of ([facility]) 10 00:00: mouth [place] mg tablet 00 before Medical meals. Branch metoclopram 2022-0 Yes [id number] 10mg Take 1 [facility] rochelle HCl 8-31 tablet by ity of ([facility]) 10 00:00: mouth [place] mg tablet 00 before Medical meals. Branch metoclopram 2022-0 Yes [id number] 10mg Take 1 [facility] rochelle HCl 8-31 tablet by ity of ([facility]) 10 00:00: mouth [place] mg tablet 00 before Medical meals. Branch metoclopram 2022-0 Yes [id number] 10mg Take 1 [facility] rochelle HCl 8-31 tablet by ity of ([facility]) 10 00:00: mouth [place] mg tablet 00 before Medical meals. Branch metoclopram 2022-0 Yes [id number] 10mg Take 1 [facility] rochelle HCl 8-31 tablet by ity of ([facility]) 10 00:00: mouth [place] mg tablet 00 before Medical meals. Branch metoclopram 2022-0 Yes [id number] 10mg Take 1 [facility] rochelle HCl 8-31 tablet by ity of ([facility]) 10 00:00: mouth [place] mg tablet 00 before Medical meals. Branch metoclopram 2022-0 Yes [id number] 10mg Take 1 [facility] rochelle HCl 8-31 tablet by ity of ([facility]) 10 00:00: mouth [place] mg tablet 00 before Medical meals. Branch metoclopram 2022-0 Yes [id number] 10mg Take 1 [facility] rochelle HCl 8-31 tablet by [facility]y of ([facility]) 10 00:00: mouth [place] mg tablet 00 before Medical meals. Branch metoclopram 2022-0 Yes [id number] 10mg Take 1 [facility] rochelle HCl 8-31 tablet by [facility]y of ([facility]) 10 00:00: mouth [place] mg tablet 00 before Medical meals. Branch metoclopram 2022-0 Yes [id number] 10mg Take 1 [facility] rochelle HCl 8-31 tablet by ity of ([facility]) 10 00:00: mouth [place] mg tablet 00 before Medical meals. Branch metoclopram 2022-0 Yes [id number] 10mg Take 1 [facility] rochelle HCl 8-31 tablet by [facility]y of ([facility]) 10 00:00: mouth [place] mg tablet 00 before Medical meals. Branch metoclopram 2022-0 Yes [id number] 10mg Take 1 [facility] rochelle HCl 8-31 tablet by [facility]y of ([facility]) 10 00:00: mouth [place] mg tablet 00 before Medical meals. Branch metoclopram 2022-0 Yes [id number] 10mg Take 1 [facility] rochelle HCl 8-31 tablet by ity of ([facility]) 10 00:00: mouth [place] mg tablet 00 before Medical meals. Branch metoclopram 2022-0 Yes [id number] 10mg Take 1 [facility] rochelle HCl 8-31 tablet by ity of ([facility]) 10 00:00: mouth [place] mg tablet 00 before Medical meals. Branch metoclopram 2022-0 Yes [id number] 10mg Take 1 [facility] rochelle HCl 8-31 tablet by ity of ([facility]) 10 00:00: mouth [place] mg tablet 00 before Medical meals. Branch metoclopram 2022-0 Yes [id number] 10mg Take 1 [facility] rochelle HCl 8-31 tablet by [facility] of ([facility]) 10 00:00: mouth [place] mg tablet 00 before Medical meals. Branch metoclopram 2022-0 Yes [id number] 10mg Take 1 [facility] rochelle HCl 8-31 tablet by ity of ([facility]) 10 00:00: mouth [place] mg tablet 00 before Medical meals. Branch metoclopram 2022-0 Yes [id number] 10mg Take 1 [facility] rochelle HCl 8-31 tablet by ity of ([facility]) 10 00:00: mouth [place] mg tablet 00 before Medical meals. Branch metoclopram 2022-0 Yes [id number] 10mg Take 1 [facility] rochelle HCl 8-31 tablet by ity of ([facility]) 10 00:00: mouth [place] mg tablet 00 before Medical meals. Branch metoclopram 2022-0 Yes [id number] 10mg Take 1 [facility] rochelle HCl 8-31 tablet by ity of ([facility]) 10 00:00: mouth [place] mg tablet 00 before Medical meals. Branch metoclopram 2022-0 Yes [id number] 10mg Take 1 [facility] rochelle HCl 8-31 tablet by ity of ([facility]) 10 00:00: mouth [place] mg tablet 00 before Medical meals. Branch metoclopram 2022-0 Yes [id number] 10mg Take 1 [facility] rochelle HCl 8-31 tablet by ity of ([facility]) 10 00:00: mouth [place] mg tablet 00 before Medical meals. Branch metoclopram 2022-0 Yes [id number] 10mg Take 1 [facility] rochelle HCl 8-31 tablet by [facility]y of ([facility]) 10 00:00: mouth [place] mg tablet 00 before Medical meals. Branch metoclopram 2022-0 Yes [id number] 10mg Take 1 [facility] rochelle HCl 8-31 tablet by ity of ([facility]) 10 00:00: mouth [place] mg tablet 00 before Medical meals. Branch metoclopram 2022-0 Yes [id number] 10mg Take 1 [facility] rochelle HCl 8-31 tablet by [facility] of ([facility]) 10 00:00: mouth [place] mg tablet 00 before Medical meals. Branch metoclopram 2022-0 Yes [id number] 10mg Take 1 [facility] rochelle HCl 8-31 tablet by [facility] of ([facility]) 10 00:00: mouth [place] mg tablet 00 before Medical meals. Branch metoclopram 2022-0 Yes [id number] 10mg Take 1 [facility] rochelle HCl 8-31 tablet by ity of ([facility]) 10 00:00: mouth [place] mg tablet 00 before Medical meals. Branch metoclopram 2022-0 Yes [id number] 10mg Take 1 [facility] rochelle HCl 8-31 tablet by ity of ([facility]) 10 00:00: mouth [place] mg tablet 00 before Medical meals. Branch metoclopram 2022-0 Yes [id number] 10mg Take 1 [facility] rochelle HCl 8-31 tablet by ity of ([facility]) 10 00:00: mouth [place] mg tablet 00 before Medical meals. Branch metoclopram 2022-0 Yes [id number] 10mg Take 1 [facility] rochelle HCl 8-31 tablet by [facility]y of ([facility]) 10 00:00: mouth [place] mg tablet 00 before Medical meals. Branch metoclopram 2022-0 Yes [id number] 10mg Take 1 [facility] rochelle HCl 8-31 tablet by ity of ([facility]) 10 00:00: mouth [place] mg tablet 00 before Medical meals. Branch metoclopram 2022-0 Yes [id number] 10mg Take 1 [facility] rochelle HCl 8-31 tablet by ity of ([facility]) 10 00:00: mouth [place] mg tablet 00 before Medical meals. Branch metoclopram 2022-0 Yes [id number] 10mg Take 1 [facility] rochelle HCl 8-31 tablet by ity of ([facility]) 10 00:00: mouth [place] mg tablet 00 before Medical meals. Branch metoclopram 2022-0 Yes [id number] 10mg Take 1 [facility] rochelle HCl 8-31 tablet by [facility]y of ([facility]) 10 00:00: mouth [place] mg tablet 00 before Medical meals. Branch metoclopram 2022-0 Yes [id number] 10mg Take 1 [facility] rochelle HCl 8-31 tablet by ity of ([facility]) 10 00:00: mouth [place] mg tablet 00 before Medical meals. Branch metoclopram 2022-0 Yes [id number] 10mg Take 1 [facility] rochelle HCl 8-31 tablet by ity of ([facility]) 10 00:00: mouth [place] mg tablet 00 before Medical meals. Branch metoclopram 2021-0 Yes [id number] 10mg Take 1 [facility] rochelle HCl 8-31 tablet by ity of ([facility]) 10 00:00: mouth [place] mg tablet 00 before Medical meals. Branch metoclopram 2021-0 Yes [id number] 10mg Take 1 [facility] rochelle HCl 8-31 tablet by ity of ([facility]) 10 00:00: mouth [place] mg tablet 00 before Medical meals. Branch Metoclopram 2021-0 Yes 10mg Take 1 [facility] rochelle HCl 10 8-31 tablet (10 [facility] bold MG oral 00:00: mg total) - Tablet 00 by mouth Externa every l morning (before breakfast) metoclopram 2021-0 Yes [id number] 10mg Take 1 [facility] rochelle HCl 8-31 tablet by ity of (RE[facility]) 10 00:00: mouth [place] mg tablet 00 before Medical meals. Branch topiramate 2021-0 Yes [id number] 100mg Take 1 [facility] 100 mg 8-26 tablet by ity of tablet 00:00: mouth 2 00 (two) Medical times Branch daily. baclofen 5 2021-0 Yes [id number] 5mg Take 1 [facility] mg tablet 8-26 9102 tablet by ity o f 00:00: mouth 3 (three) Medical times Branch daily. albuterol 2021-0 Yes [id number] 2{puff} Inhale 2 [facility] 90 8-26 Puffs ity of mcg/actuati 00:00: every 6 [place] as on inhaler 00 (six) Medical hours as Branch needed for Wheezing or Shortness of Breath. omeprazole 2021-0 Yes [id number] 40mg Take 2 [facility] nivers 20 mg 8-26 capsules [facility] of capsule 00:00: by mouth 2 [place] 00 (two) Medical times Branch daily. pravastatin 2-0 Yes [id number] 10mg Take 1 [facility] 10 mg 8-26 tablet by ity of tablet 00:00: mouth at [place] 00 bedtime. Medical Branch topiramate 2021-0 Yes [id number] 100mg Take 1 [facility] 100 mg 8-26 tablet by ity of tablet 00:00: mouth 2 00 (two) Medical times Branch daily. baclofen 5 2021-0 Yes [id number] 5mg Take 1 [facility] mg tablet 8-26 9102 tablet by ity o f 00:00: mouth 3 (three) Medical times Branch daily. albuterol 2021-0 Yes [id number] 2{puff} Inhale 2 [facility] 90 8-26 Puffs ity of mcg/actuati 00:00: every 6 [place] on inhaler 00 (six) Medical hours as Branch needed for Wheezing or Shortness of Breath. omeprazole 2021-0 Yes [id number] 40mg Take 2 [facility] nivers 20 mg 8-26 capsules [facility] of capsule 00:00: by mouth [place] 00 (two) Medical times [facility] daily. Albuterol 2021-0 Yes 2{puff} Q.25D Inhale 2 [place] HFA 108 (90 8-26 puffs into [employer]) 00:00: the lungs - MCG/ACT IN 00 every 6 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 AERS hours as l needed pravastatin 2021-0 Yes [id number] 10mg Take 1 [facility] 10 mg 8-26 tablet by ity of tablet 00:00: mouth at [place] [address] bedtime. Medical Branch topiramate 2021-0 Yes [id number] 100mg Take 1 [facility] 100 mg 8-26 tablet by ity of tablet 00:00: mouth 2 (two) Medical times Branch daily. baclofen 5 2021-0 Yes [id number] 5mg Take 1 [facility] mg tablet 8-26 9102 tablet by ity o f 00:00: mouth 3 (three) Medical times Branch daily. albuterol 2021-0 Yes [id number] 2{puff} Inhale 2 [facility] 90 8-26 Puffs ity of mcg/actuati 00:00: every 6 [place] on inhaler 00 (six) Medical hours as Branch needed for Wheezing or Shortness of Breath. omeprazole 2021-0 Yes [id number] 40mg Take 2 [facility] nivers 20 mg 8-26 capsules it[facility] of capsule 00:00: by mouth 2 [place] 00 (two) Medical times [facility] daily. pravastatin 2021-0 Yes [id number] 10mg Take 1 [facility] 10 mg 8-26 tablet by ity of tablet 00:00: mouth at [place] [address] bedtime. Medical Branch topiramate 2021-0 Yes [id number] 100mg Take 1 [facility] 100 mg 8-26 tablet by ity of tablet 00:00: mouth 2 (two) Medical times Branch daily. baclofen 5 2021-0 Yes [id number] 5mg Take 1 [facility] mg tablet 8-26 9102 tablet by ity o f 00:00: mouth 3 (three) Medical times Branch daily. albuterol 2021-0 Yes [id number] 2{puff} Inhale 2 [facility] 90 8-26 Puffs ity of mcg/actuati 00:00: every 6 [place] on inhaler 00 (six) Medical hours as Branch needed for Wheezing or Shortness of Breath. omeprazole 2021-0 Yes [id number] 40mg Take 2 [facility] nivers 20 mg 8-26 capsules it[facility] of capsule 00:00: by mouth 2 [place] (two) Medical times [facility] daily. Omeprazole 2021-0 Yes 40mg Take 2 [facility] 20 MG oral 8-26 capsules [facility] ld Delayed 00:00: (40 mg - Release 00 total) by Externa Capsule mouth 2 l times daily pravastatin 2021-0 Yes [id number] 10mg Take 1 [facility] 10 mg 8-26 tablet by ity of tablet 00:00: mouth at [place] 00 bedtime. Medical Branch topiramate 2021-0 Yes [id number] 100mg Take 1 [facility] 100 mg 8-26 tablet by ity of tablet 00:00: mouth 2 (two) Medical times Branch daily. baclofen 5 2021-0 Yes [id number] 5mg Take 1 [facility] mg tablet 8-26 9102 tablet by ity o f 00:00: mouth 3 (three) Medical times Branch daily. albuterol 2021-0 Yes [id number] 2{puff} Inhale 2 [facility] 90 8-26 Puffs ity of mcg/actuati 00:00: every 6 [place] on inhaler 00 (six) Medical hours as Branch needed for Wheezing or Shortness of Breath. omeprazole 2021-0 Yes [id number] 40mg Take 2 [facility] nivers 20 mg 8-26 capsules ity of capsule 00:00: by mouth 2 [place] 00 (two) Medical times Branch daily. pravastatin 2021-0 Yes [id number] 10mg Take 1 [facility] 10 mg 8-26 tablet by ity of tablet 00:00: mouth at [place] 00 bedtime. Medical Branch topiramate 2021-0 Yes [id number] 100mg Take 1 [facility] 100 mg 8-26 tablet by ity of tablet 00:00: mouth 2 00 (two) Medical times Branch daily. baclofen 5 2021-0 Yes [id number] 5mg Take 1 [facility] mg tablet 8-26 9102 tablet by ity o f 00:00: mouth 3 00 (three) Medical times Branch daily. albuterol 2021-0 Yes [id number] 2{puff} Inhale 2 [facility] 90 8-26 Puffs ity of mcg/actuati 00:00: every 6 [place] on inhaler 00 (six) Medical hours as Branch needed for Wheezing or Shortness of Breath. omeprazole 2021-0 Yes [id number] 40mg Take 2 [facility] nivers 20 mg 8-26 capsules it[facility] of capsule 00:00: by mouth 2 [place] (two) Medical times [facility] daily. pravastatin 2021-0 Yes [id number] 10mg Take 1 [facility] 10 mg 8-26 tablet by ity of tablet 00:00: mouth at [place] 00 bedtime. Medical Branch topiramate 2021-0 Yes [id number] 100mg Take 1 [facility] 100 mg 8-26 tablet by ity of tablet 00:00: mouth 2 00 (two) Medical times Branch daily. baclofen 5 2021-0 Yes [id number] 5mg Take 1 [facility] mg tablet 8-26 9102 tablet by ity o f 00:00: mouth 3 (three) Medical times Branch daily. albuterol 2021-0 Yes [id number] 2{puff} Inhale 2 [facility] 90 8-26 Puffs ity of mcg/actuati 00:00: every 6 [place] on inhaler 00 (six) Medical hours as Branch needed for Wheezing or Shortness of Breath. omeprazole 2-0 Yes [id number] 40mg Take 2 [facility] nivers 20 mg 8-26 capsules ity of capsule 00:00: by mouth 2 [place] 00 (two) Medical times Branch daily. pravastatin 2022-0 Yes [id number] 10mg Take 1 [facility] 10 mg 8-26 tablet by ity of tablet 00:00: mouth at [place] 00 bedtime. Medical Branch topiramate 2021-0 Yes [id number] 100mg Take 1 [facility] 100 mg 8-26 tablet by ity of tablet 00:00: mouth 2 (two) Medical times Branch daily. baclofen 5 2021-0 Yes [id number] 5mg Take 1 [facility] mg tablet 8-26 9102 tablet by ity o f 00:00: mouth 3 (three) Medical times Branch daily. albuterol 2021-0 Yes [id number] 2{puff} Inhale 2 [facility] 90 8-26 Puffs ity of mcg/actuati 00:00: every 6 [place] on inhaler 00 (six) Medical hours as Branch needed for Wheezing or Shortness of Breath. omeprazole 2021-0 Yes [id number] 40mg Take 2 [facility] nivers 20 mg 8-26 capsules ity of capsule 00:00: by mouth 2 s (two) Medical times Branch daily. pravastatin 2021-0 Yes [id number] 10mg Take 1 [facility] 10 mg 8-26 tablet by ity of tablet 00:00: mouth at [place] bedtime. Medical Branch topiramate 2021-0 Yes [id number] 100mg Take 1 [facility] 100 mg 8-26 tablet by ity of tablet 00:00: mouth 2 (two) Medical times Branch daily. baclofen 5 2021-0 Yes [id number] 5mg Take 1 [facility] mg tablet 8-26 9102 tablet by ity o f 00:00: mouth 3 (three) Medical times Branch daily. albuterol 2021-0 Yes [id number] 2{puff} Inhale 2 [facility] 90 8-26 Puffs ity of mcg/actuati 00:00: every 6 [place] on inhaler 00 (six) Medical hours as Branch needed for Wheezing or Shortness of Breath. omeprazole 2021-0 Yes [id number] 40mg Take 2 [facility] nivers 20 mg 8-26 capsules ity of capsule 00:00: by mouth 2 s (two) Medical times Branch daily. pravastatin 2-0 Yes [id number] 10mg Take 1 [facility] 10 mg 8-26 tablet by ity of tablet 00:00: mouth at [place] 00 bedtime. Medical Branch topiramate 2021-0 Yes [id number] 100mg Take 1 [facility] 100 mg 8-26 tablet by ity of tablet 00:00: mouth 2 (two) Medical times Branch daily. baclofen 5 2021-0 Yes [id number] 5mg Take 1 [facility] mg tablet 8-26 9102 tablet by ity o f 00:00: mouth 3 (three) Medical times Branch daily. albuterol 2021-0 Yes [id number] 2{puff} Inhale 2 [facility] 90 8-26 Puffs ity of mcg/actuati 00:00: every 6 [place] on inhaler 00 (six) Medical hours as Branch needed for Wheezing or Shortness of Breath. omeprazole 2021-0 Yes [id number] 40mg Take 2 [facility] nivers 20 mg 8-26 capsules ity of capsule 00:00: by mouth 2 [place] 00 (two) Medical times Branch daily. pravastatin 2021-0 Yes [id number] 10mg Take 1 [facility] 10 mg 8-26 tablet by ity of tablet 00:00: mouth at [place] 00 bedtime. Medical Branch topiramate 2021-0 Yes [id number] 100mg Take 1 [facility] 100 mg 8-26 tablet by ity of tablet 00:00: mouth 2 (two) Medical times Branch daily. baclofen 5 2021-0 Yes [id number] 5mg Take 1 [facility] mg tablet 8-26 9102 tablet by ity o f 00:00: mouth 3 (three) Medical times Branch daily. albuterol 2021-0 Yes [id number] 2{puff} Inhale 2 [facility] 90 8-26 Puffs ity of mcg/actuati 00:00: every 6 [place] on inhaler 00 (six) Medical hours as Branch needed for Wheezing or Shortness of Breath. omeprazole 2021-0 Yes [id number] 40mg Take 2 [facility] nivers 20 mg 8-26 capsules ity of capsule 00:00: by mouth 2 [place] (two) Medical times [facility] daily. pravastatin 2021-0 Yes [id number] 10mg Take 1 [facility] 10 mg 8-26 tablet by ity of tablet 00:00: mouth at 00 bedtime. Medical Branch topiramate 2021-0 Yes [id number] 100mg Take 1 [facility] 100 mg 8-26 tablet by ity of tablet 00:00: mouth 2 (two) Medical times Branch daily. baclofen 5 2021-0 Yes [id number] 5mg Take 1 [facility] mg tablet 8-26 9102 tablet by ity o f 00:00: mouth 3 (three) Medical times Branch daily. albuterol 2021-0 Yes [id number] 2{puff} Inhale 2 [facility] 90 8-26 Puffs ity of mcg/actuati 00:00: every 6 [place] on inhaler 00 (six) Medical hours as Branch needed for Wheezing or Shortness of Breath. omeprazole 2-0 Yes [id number] 40mg Take 2 [facility] nivers 20 mg 8-26 capsules it[facility] of capsule 00:00: by mouth 2 [place] (two) Medical times [facility] daily. pravastatin 2021-0 Yes [id number] 10mg Take 1 [facility] 10 mg 8-26 tablet by ity of tablet 00:00: mouth at [place] 00 bedtime. Medical Branch topiramate 2021-0 Yes [id number] 100mg Take 1 [facility] 100 mg 8-26 tablet by ity of tablet 00:00: mouth 2 (two) Medical times Branch daily. baclofen 5 2021-0 Yes [id number] 5mg Take 1 [facility] mg tablet 8-26 9102 tablet by ity o f 00:00: mouth 3 (three) Medical times Branch daily. albuterol 2021-0 Yes [id number] 2{puff} Inhale 2 [facility] 90 8-26 Puffs ity of mcg/actuati 00:00: every 6 [place] on inhaler 00 (six) Medical hours as Branch needed for Wheezing or Shortness of Breath. omeprazole 2021-0 Yes [id number] 40mg Take 2 [facility] nivers 20 mg 8-26 capsules ity of capsule 00:00: by mouth 2 [place] (two) Medical times [facility] daily. pravastatin 2021-0 Yes [id number] 10mg Take 1 [facility] 10 mg 8-26 tablet by ity of tablet 00:00: mouth at [place] 00 bedtime. Medical Branch topiramate 2021-0 Yes [id number] 100mg Take 1 [facility] 100 mg 8-26 tablet by ity of tablet 00:00: mouth 2 (two) Medical times Branch daily. baclofen 5 2021-0 Yes [id number] 5mg Take 1 [facility] mg tablet 8-26 9102 tablet by ity o f 00:00: mouth 3 (three) Medical times Branch daily. albuterol 2-0 Yes [id number] 2{puff} Inhale 2 [facility] 90 8-26 Puffs ity of mcg/actuati 00:00: every 6 [place] on inhaler 00 (six) Medical hours as Branch needed for Wheezing or Shortness of Breath. omeprazole 2021-0 Yes [id number] 40mg Take 2 [facility] nivers 20 mg 8-26 capsules ity of capsule 00:00: by mouth 2 [place] 00 (two) Medical times Branch daily. pravastatin 2021-0 Yes [id number] 10mg Take 1 [facility] 10 mg 8-26 tablet by ity of tablet 00:00: mouth at 00 bedtime. Medical Branch topiramate 2021-0 Yes [id number] 100mg Take 1 [facility] 100 mg 8-26 tablet by ity of tablet 00:00: mouth (two) Medical times Branch daily. baclofen 5 2021-0 Yes [id number] 5mg Take 1 [facility] mg tablet 8-26 9102 tablet by ity o f 00:00: mouth 3 (three) Medical times Branch daily. albuterol 2021-0 Yes [id number] 2{puff} Inhale 2 [facility] 90 8-26 Puffs ity of mcg/actuati 00:00: every 6 [place] on inhaler 00 (six) Medical hours as Branch needed for Wheezing or Shortness of Breath. omeprazole 2021-0 Yes [id number] 40mg Take 2 [facility] nivers 20 mg 8-26 capsules ity of capsule 00:00: by mouth 2 [place] (two) Medical times [facility] daily. pravastatin 2021-0 Yes [id number] 10mg Take 1 [facility] 10 mg 8-26 tablet by ity of tablet 00:00: mouth at 00 bedtime. Medical Branch topiramate 2021-0 Yes [id number] 100mg Take 1 [facility] 100 mg 8-26 tablet by ity of tablet 00:00: mouth 2 (two) Medical times Branch daily. baclofen 5 2021-0 Yes [id number] 5mg Take 1 [facility] mg tablet 8-26 9102 tablet by ity o f 00:00: mouth 3 (three) Medical times Branch daily. albuterol 2021-0 Yes [id number] 2{puff} Inhale 2 [facility] 90 8-26 Puffs ity of mcg/actuati 00:00: every 6 [place] as on inhaler 00 (six) Medical hours as Branch needed for Wheezing or Shortness of Breath. omeprazole 2022-0 Yes [id number] 40mg Take 2 [facility] nivers 20 mg 8-26 capsules ity of capsule 00:00: by mouth 2 [place] 00 (two) Medical times Branch daily. pravastatin 2022-0 Yes [id number] 10mg Take 1 [facility] 10 mg 8-26 tablet by ity of tablet 00:00: mouth at [place] 00 bedtime. Medical Branch topiramate 2021-0 Yes [id number] 100mg Take 1 [facility] 100 mg 8-26 tablet by ity of tablet 00:00: mouth 2 00 (two) Medical times Branch daily. baclofen 5 2021-0 Yes [id number] 5mg Take 1 [facility] mg tablet 8-26 9102 tablet by ity o f 00:00: mouth 3 (three) Medical times Branch daily. albuterol 2021-0 Yes [id number] 2{puff} Inhale 2 [facility] 90 8-26 Puffs ity of mcg/actuati 00:00: every 6 [place] as on inhaler 00 (six) Medical hours as Branch needed for Wheezing or Shortness of Breath. omeprazole 2021-0 Yes [id number] 40mg Take 2 [facility] nivers 20 mg 8-26 capsules ity of capsule 00:00: by mouth 2 [place] (two) Medical times [facility] daily. pravastatin 2021-0 Yes [id number] 10mg Take 1 [facility] 10 mg 8-26 tablet by ity of tablet 00:00: mouth at [place] 00 bedtime. Medical Branch topiramate 2021-0 Yes [id number] 100mg Take 1 [facility] 100 mg 8-26 tablet by ity of tablet 00:00: mouth 2 00 (two) Medical times Branch daily. baclofen 5 2021-0 Yes [id number] 5mg Take 1 [facility] mg tablet 8-26 9102 tablet by ity o f 00:00: mouth 3 (three) Medical times Branch daily. albuterol 2-0 Yes [id number] 2{puff} Inhale 2 [facility] 90 8-26 Puffs ity of mcg/actuati 00:00: every 6 [place] as on inhaler 00 (six) Medical hours as Branch needed for Wheezing or Shortness of Breath. omeprazole 2-0 Yes [id number] 40mg Take 2 [facility] 20 mg 8-26 capsules [facility] capsule 00:00: [place] mouth [place] (two) [facility] times [facility] daily. pravastatin 2022-0 Yes [id number] 10mg Take 1 [facility] 10 mg 8-26 tablet by [facility] tablet 00:00: mouth at [place] 00 bedtime. [facility] topiramate 2021-0 Yes [id number] 100mg Take 1 [facility] 100 mg 8-26 tablet by [facility] of tablet 00:00: mouth 2 00 (two) [facility] times [facility] daily. baclofen 5 2021-0 Yes [id number] 5mg Take 1 [facility] mg tablet 8-26 9102 tablet by [facility] o f 00:00: mouth 3 (three) Medical times [facility] daily. albuterol 2021-0 Yes [id number] 2{puff} Inhale 2 [facility] 90 8-26 Puffs [facility] of mcg/actuati 00:00: every 6 [place] as on inhaler 00 (six) Medical hours as [facility] needed for Wheezing or Shortness of Breath. omeprazole 2021-0 Yes [id number] 40mg Take 2 [facility] 20 mg 8-26 capsules [facility] capsule 00:00: [place] mouth [place] (two) [facility] times [facility] daily. pravastatin 2021-0 Yes [id number] 10mg Take 1 [facility] 10 mg 8-26 tablet by [facility] tablet 00:00: mouth at [place] 00 bedtime. [facility] topiramate 2021-0 Yes [id number] 100mg Take 1 [facility] 100 mg 8-26 tablet by [facility] of tablet 00:00: mouth 2 00 (two) Medical times [facility] daily. baclofen 5 2021-0 Yes [id number] 5mg Take 1 [facility] mg tablet 8-26 9102 tablet by [facility] o f 00:00: mouth 3 00 (three) [facility] times [facility] daily. albuterol 2022-0 Yes [id number] 2{puff} Inhale 2 [facility] 90 8-26 Puffs [facility] of mcg/actuati 00:00: every 6 [place] as on inhaler 00 (six) Medical hours as [facility] needed for Wheezing or Shortness of Breath. omeprazole 2-0 Yes [id number] 40mg Take 2 [facility] 20 mg 8-26 capsules [facility] capsule 00:00: [place] mouth [place] (two) [facility] times [facility] daily. pravastatin 2021-0 Yes [id number] 10mg Take 1 [facility] 10 mg 8-26 tablet by [facility] of tablet 00:00: mouth at [place] 00 bedtime. [facility] topiramate 2021-0 Yes [id number] 100mg Take 1 [facility] 100 mg 8-26 tablet by [facility] of tablet 00:00: mouth 2 (two) Medical times [facility] daily. baclofen 5 2021-0 Yes [id number] 5mg Take 1 [facility] mg tablet 8-26 9102 tablet by [facility] o f 00:00: mouth 3 (three) Medical times [facility] daily. albuterol 2021-0 Yes [id number] 2{puff} Inhale 2 [facility] 90 8-26 Puffs [facility] of mcg/actuati 00:00: every 6 [place] as on inhaler 00 (six) Medical hours as [facility] needed for Wheezing or Shortness of Breath. omeprazole 2021-0 Yes [id number] 40mg Take 2 [facility] 20 mg 8-26 capsules [facility] capsule 00:00: by mouth 2 [place] (two) [facility] times [facility] daily. pravastatin 2021-0 Yes [id number] 10mg Take 1 [facility] 10 mg 8-26 tablet by [facility] of tablet 00:00: mouth at [place] 00 bedtime. [facility] topiramate 2021-0 Yes [id number] 100mg Take 1 [facility] 100 mg 8-26 tablet by [facility] of tablet 00:00: mouth 2 (two) Medical times [facility] daily. baclofen 5 2021-0 Yes [id number] 5mg Take 1 [facility] mg tablet 8-26 9102 tablet by [facility] o f 00:00: mouth 3 (three) Medical times [facility] daily. albuterol 2021-0 Yes [id number] 2{puff} Inhale 2 [facility] 90 8-26 Puffs [facility] of mcg/actuati 00:00: every 6 [place] as on inhaler 00 (six) Medical hours as [facility] needed for Wheezing or Shortness of Breath. omeprazole 2-0 Yes [id number] 40mg Take 2 [facility] 20 mg 8-26 capsules [facility] capsule 00:00: by mouth [place] 00 (two) [facility] times [facility] daily. pravastatin 2-0 Yes [id number] 10mg Take 1 [facility] 10 mg 8-26 tablet by [facility] of tablet 00:00: mouth at [place] 00 bedtime. [facility] topiramate 2021-0 Yes [id number] 100mg Take 1 [facility] 100 mg 8-26 tablet by [facility] of tablet 00:00: mouth 2 00 (two) Medical times [facility] daily. baclofen 5 2021-0 Yes [id number] 5mg Take 1 [facility] mg tablet 8-26 9102 tablet by [facility] o f 00:00: mouth 3 00 (three) Medical times [facility] daily. albuterol 2021-0 Yes [id number] 2{puff} Inhale 2 [facility] 90 8-26 Puffs [facility] of mcg/actuati 00:00: every 6 [place] as on inhaler 00 (six) Medical hours as [facility] needed for Wheezing or Shortness of Breath. omeprazole 2021-0 Yes [id number] 40mg Take 2 [facility] 20 mg 8-26 capsules [facility] capsule 00:00: by mouth [place] (two) [facility] times [facility] daily. pravastatin 2021-0 Yes [id number] 10mg Take 1 [facility] 10 mg 8-26 tablet by [facility] of tablet 00:00: mouth at [place] 00 bedtime. [facility] topiramate 2021-0 Yes [id number] 100mg Take 1 [facility] 100 mg 8-26 tablet by [facility] of tablet 00:00: mouth 2 (two) Medical times [facility] daily. baclofen 5 2021-0 Yes [id number] 5mg Take 1 [facility] mg tablet 8-26 9102 tablet by [facility] o f 00:00: mouth 3 (three) Medical times [facility] daily. albuterol 2021-0 Yes [id number] 2{puff} Inhale 2 [facility] 90 8-26 Puffs [facility] of mcg/actuati 00:00: every 6 [place] as on inhaler 00 (six) Medical hours as [facility] needed for Wheezing or Shortness of Breath. omeprazole 2-0 Yes [id number] 40mg Take 2 [facility] 20 mg 8-26 capsules [facility] capsule 00:00: by mouth [place] 00 (two) [facility] times [facility] daily. pravastatin 2-0 Yes [id number] 10mg Take 1 [facility] 10 mg 8-26 tablet by [facility] of tablet 00:00: mouth at [place] 00 bedtime. [facility] topiramate 2021-0 Yes [id number] 100mg Take 1 [facility] 100 mg 8-26 tablet by [facility] of tablet 00:00: mouth 2 00 (two) Medical times [facility] daily. baclofen 5 2021-0 Yes [id number] 5mg Take 1 [facility] mg tablet 8-26 9102 tablet by [facility] o f 00:00: mouth 3 (three) Medical times [facility] daily. albuterol 2021-0 Yes [id number] 2{puff} Inhale 2 [facility] 90 8-26 Puffs [facility] of mcg/actuati 00:00: every 6 [place] on inhaler 00 (six) Medical hours as [facility] needed for Wheezing or Shortness of Breath. omeprazole 2021-0 Yes [id number] 40mg Take 2 [facility] 20 mg 8-26 capsules [facility] capsule 00:00: by mouth [place] (two) [facility] times [facility] daily. pravastatin 2021-0 Yes [id number] 10mg Take 1 [facility] 10 mg 8-26 tablet by [facility] of tablet 00:00: mouth at [place] 00 bedtime. [facility] topiramate 2021-0 Yes [id number] 100mg Take 1 [facility] 100 mg 8-26 tablet by [facility] of tablet 00:00: mouth 2 (two) Medical times [facility] daily. baclofen 5 2021-0 Yes [id number] 5mg Take 1 [facility] mg tablet 8-26 9102 tablet by [facility] o f 00:00: mouth 3 (three) Medical times [facility] daily. albuterol 2021-0 Yes [id number] 2{puff} Inhale 2 [facility] 90 8-26 Puffs [facility] of mcg/actuati 00:00: every 6 [place] on inhaler 00 (six) Medical hours as [facility] needed for Wheezing or Shortness of Breath. omeprazole 2-0 Yes [id number] 40mg Take 2 [facility] 20 mg 8-26 capsules [facility] capsule 00:00: by mouth [place] 00 (two) [facility] times [facility] daily. pravastatin 2-0 Yes [id number] 10mg Take 1 [facility] 10 mg 8-26 tablet by [facility] of tablet 00:00: mouth at [place] 00 bedtime. [facility] topiramate 2021-0 Yes [id number] 100mg Take 1 [facility] 100 mg 8-26 tablet by [facility] of tablet 00:00: mouth 2 (two) Medical times [facility] daily. baclofen 5 2021-0 Yes [id number] 5mg Take 1 [facility] mg tablet 8-26 9102 tablet by [facility] o f 00:00: mouth 3 (three) Medical times [facility] daily. albuterol 2021-0 Yes [id number] 2{puff} Inhale 2 [facility] 90 8-26 Puffs [facility] of mcg/actuati 00:00: every 6 [place] on inhaler 00 (six) Medical hours as [facility] needed for Wheezing or Shortness of Breath. omeprazole 2021-0 Yes [id number] 40mg Take 2 [facility] 20 mg 8-26 capsules [facility] capsule 00:00: by mouth 2 [place] (two) [facility] times [facility] daily. pravastatin 2021-0 Yes [id number] 10mg Take 1 [facility] 10 mg 8-26 tablet by [facility] of tablet 00:00: mouth at [place] bedtime. [facility] topiramate 2021-0 Yes [id number] 100mg Take 1 [facility] 100 mg 8-26 tablet by [facility] of tablet 00:00: mouth 2 (two) Medical times [facility] daily. baclofen 5 2021-0 Yes [id number] 5mg Take 1 [facility] mg tablet 8-26 9102 tablet by [facility] o f 00:00: mouth 3 (three) Medical times [facility] daily. albuterol 2021-0 Yes [id number] 2{puff} Inhale 2 [facility] 90 8-26 Puffs [facility] of mcg/actuati 00:00: every 6 [place] on inhaler 00 (six) Medical hours as [facility] needed for Wheezing or Shortness of Breath. omeprazole 2021-0 Yes [id number] 40mg Take 2 [facility] 20 mg 8-26 capsules [facility] capsule 00:00: by mouth 2 [place] (two) [facility] times [facility] daily. pravastatin 2-0 Yes [id number] 10mg Take 1 [facility] 10 mg 8-26 tablet by [facility] of tablet 00:00: mouth at [place] 00 bedtime. [facility] topiramate 2021-0 Yes [id number] 100mg Take 1 [facility] 100 mg 8-26 tablet by [facility] of tablet 00:00: mouth 2 (two) Medical times [facility] daily. baclofen 5 2021-0 Yes [id number] 5mg Take 1 [facility] mg tablet 8-26 9102 tablet by [facility] o f 00:00: mouth 3 00 (three) Medical times [facility] daily. albuterol 2021-0 Yes [id number] 2{puff} Inhale 2 [facility] 90 8-26 Puffs [facility] of mcg/actuati 00:00: every 6 [place] on inhaler 00 (six) Medical hours as [facility] needed for Wheezing or Shortness of Breath. omeprazole 2021-0 Yes [id number] 40mg Take 2 [facility] 20 mg 8-26 capsules [facility] capsule 00:00: by mouth [place] 00 (two) [facility] times [facility] daily. pravastatin 2021-0 Yes [id number] 10mg Take 1 [facility] 10 mg 8-26 tablet by [facility] of tablet 00:00: mouth at [place] 00 bedtime. [facility] topiramate 2021-0 Yes [id number] 100mg Take 1 [facility] 100 mg 8-26 tablet by [facility] of tablet 00:00: mouth 2 (two) Medical times [facility] daily. baclofen 5 2021-0 Yes [id number] 5mg Take 1 [facility] mg tablet 8-26 9102 tablet by [facility] o f 00:00: mouth 3 (three) Medical times [facility] daily. albuterol 2021-0 Yes [id number] 2{puff} Inhale 2 [facility] 90 8-26 Puffs [facility] of mcg/actuati 00:00: every 6 [place] on inhaler 00 (six) Medical hours as [facility] needed for Wheezing or Shortness of Breath. omeprazole 2021-0 Yes [id number] 40mg Take 2 [facility] 20 mg 8-26 capsules [facility] capsule 00:00: by mouth 2 [place] 00 (two) [facility] times [facility] daily. pravastatin 2021-0 Yes [id number] 10mg Take 1 [facility] 10 mg 8-26 tablet by [facility] of tablet 00:00: mouth at [place] 00 bedtime. [facility] topiramate 2021-0 Yes [id number] 100mg Take 1 [facility] 100 mg 8-26 tablet by [facility] of tablet 00:00: mouth 2 00 (two) Medical times [facility] daily. baclofen 5 2021-0 Yes [id number] 5mg Take 1 [facility] mg tablet 8-26 9102 tablet by [facility] o f 00:00: mouth 3 (three) Medical times [facility] daily. albuterol 2021-0 Yes [id number] 2{puff} Inhale 2 [facility] 90 8-26 Puffs [facility] of mcg/actuati 00:00: every 6 [place] on inhaler 00 (six) Medical hours as [facility] needed for Wheezing or Shortness of Breath. omeprazole 2-0 Yes [id number] 40mg Take 2 [facility] 20 mg 8-26 capsules [facility] capsule 00:00: by mouth [place] (two) [facility] times [facility] daily. pravastatin 2021-0 Yes [id number] 10mg Take 1 [facility] 10 mg 8-26 tablet by [facility] of tablet 00:00: mouth at 00 bedtime. [facility] topiramate 2021-0 Yes [id number] 100mg Take 1 [facility] 100 mg 8-26 tablet by [facility] of tablet 00:00: mouth (two) Medical times [facility] daily. baclofen 5 2021-0 Yes [id number] 5mg Take 1 [facility] mg tablet 8-26 9102 tablet by [facility] o f 00:00: mouth 3 (three) Medical times [facility] daily. albuterol 2021-0 Yes [id number] 2{puff} Inhale 2 [facility] 90 8-26 Puffs [facility] of mcg/actuati 00:00: every 6 [place] on inhaler 00 (six) Medical hours as [facility] needed for Wheezing or Shortness of Breath. omeprazole 2021-0 Yes [id number] 40mg Take 2 [facility] 20 mg 8-26 capsules [facility] of capsule 00:00: by mouth 2 (two) Medical times [facility] daily. pravastatin 2021-0 Yes [id number] 10mg Take 1 [facility] 10 mg 8-26 tablet by [facility] of tablet 00:00: mouth at 00 bedtime. [facility] topiramate 2-0 Yes [id number] 100mg Take 1 [facility] 100 mg 8-26 tablet by [facility] of tablet 00:00: mouth (two) Medical times [facility] daily. baclofen 5 2021-0 Yes [id number] 5mg Take 1 [facility] mg tablet 8-26 9102 tablet by [facility] o f 00:00: mouth 3 (three) Medical times [facility] daily. albuterol 2-0 Yes [id number] 2{puff} Inhale 2 [facility] 90 8-26 Puffs [facility] of mcg/actuati 00:00: every 6 [place] on inhaler 00 (six) Medical hours as [facility] needed for Wheezing or Shortness of Breath. omeprazole 2021-0 Yes [id number] 40mg Take 2 [facility] 20 mg 8-26 capsules [facility] capsule 00:00: by mouth 2 [place] 00 (two) [facility] times [facility] daily. pravastatin 2021-0 Yes [id number] 10mg Take 1 [facility] 10 mg 8-26 tablet by [facility] of tablet 00:00: mouth at 00 bedtime. [facility] topiramate 2021-0 Yes [id number] 100mg Take 1 [facility] 100 mg 8-26 tablet by [facility] of tablet 00:00: mouth 2 (two) Medical times [facility] daily. baclofen 5 2021-0 Yes [id number] 5mg Take 1 [facility] mg tablet 8-26 9102 tablet by [facility] o f 00:00: mouth 3 (three) Medical times [facility] daily. albuterol 2021-0 Yes [id number] 2{puff} Inhale 2 [facility] 90 8-26 Puffs [facility] of mcg/actuati 00:00: every 6 [place] on inhaler 00 (six) Medical hours as [facility] needed for Wheezing or Shortness of Breath. omeprazole 2021-0 Yes [id number] 40mg Take 2 [facility] 20 mg 8-26 capsules [facility] of capsule 00:00: by mouth 2 [place] 00 (two) [facility] times [facility] daily. pravastatin 2021-0 Yes [id number] 10mg Take 1 [facility] 10 mg 8-26 tablet by [facility] of tablet 00:00: mouth at 00 bedtime. [facility] topiramate 2021-0 Yes [id number] 100mg Take 1 [facility] 100 mg 8-26 tablet by [facility] of tablet 00:00: mouth 2 (two) Medical times [facility] daily. baclofen 5 2021-0 Yes [id number] 5mg Take 1 [facility] mg tablet 8-26 9102 tablet by [facility] o f 00:00: mouth 3 (three) Medical times [facility] daily. albuterol 2021-0 Yes [id number] 2{puff} Inhale 2 [facility] 90 8-26 Puffs [facility] of mcg/actuati 00:00: every 6 [place] on inhaler 00 (six) Medical hours as [facility] needed for Wheezing or Shortness of Breath. omeprazole 2021-0 Yes [id number] 40mg Take 2 [facility] 20 mg 8-26 capsules [facility] of capsule 00:00: by mouth 2 [place] 00 (two) [facility] times [facility] daily. pravastatin 2021-0 Yes [id number] 10mg Take 1 [facility] 10 mg 8-26 tablet by [facility] of tablet 00:00: mouth at [place] 00 bedtime. [facility] topiramate 2021-0 Yes [id number] 100mg Take 1 [facility] 100 mg 8-26 tablet by [facility] of tablet 00:00: mouth 2 00 (two) Medical times [facility] daily. baclofen 5 2021-0 Yes [id number] 5mg Take 1 [facility] mg tablet 8-26 9102 tablet by [facility] o f 00:00: mouth 3 (three) Medical times [facility] daily. albuterol 2021-0 Yes [id number] 2{puff} Inhale 2 [facility] 90 8-26 Puffs [facility] of mcg/actuati 00:00: every 6 [place] as on inhaler 00 (six) Medical hours as [facility] needed for Wheezing or Shortness of Breath. omeprazole 2021-0 Yes [id number] 40mg Take 2 [facility] 20 mg 8-26 capsules [facility] of capsule 00:00: by mouth 2 [place] 00 (two) [facility] times [facility] daily. pravastatin 2021-0 Yes [id number] 10mg Take 1 [facility] 10 mg 8-26 tablet by [facility] of tablet 00:00: mouth at [place] 00 bedtime. [facility] topiramate 2021-0 Yes [id number] 100mg Take 1 [facility] 100 mg 8-26 tablet by [facility] of tablet 00:00: mouth 2 00 (two) Medical times [facility] daily. baclofen 5 2021-0 Yes [id number] 5mg Take 1 [facility] mg tablet 8-26 9102 tablet by ity o f 00:00: mouth 3 (three) Medical times [facility] daily. albuterol 2021-0 Yes [id number] 2{puff} Inhale 2 [facility] 90 8-26 Puffs [facility]y of mcg/actuati 00:00: every 6 [place] as on inhaler 00 (six) Medical hours as [facility] needed for Wheezing or Shortness of Breath. omeprazole 2-0 Yes [id number] 40mg Take 2 [facility] 20 mg 8-26 capsules [facility] of capsule 00:00: by mouth 2 [place] 00 (two) [facility] times [facility] daily. pravastatin 2022-0 Yes [id number] 10mg Take 1 [facility] 10 mg 8-26 tablet by [facility] of tablet 00:00: mouth at [place] 00 bedtime. [facility] topiramate 2-0 Yes [id number] 100mg Take 1 [facility] 100 mg 8-26 tablet by [facility] of tablet 00:00: mouth 2 00 (two) Medical times [facility] daily. baclofen 5 2021-0 Yes [id number] 5mg Take 1 [facility] mg tablet 8-26 9102 tablet by ity o f 00:00: mouth 3 (three) Medical times [facility] daily. albuterol 2021-0 Yes [id number] 2{puff} Inhale 2 [facility] 90 8-26 Puffs ity of mcg/actuati 00:00: every 6 [place] as on inhaler 00 (six) Medical hours as [facility] needed for Wheezing or Shortness of Breath. omeprazole 2-0 Yes [id number] 40mg Take 2 [facility] 20 mg 8-26 capsules [facility] of capsule 00:00: by mouth 2 [place] (two) [facility] times [facility] daily. pravastatin 2-0 Yes [id number] 10mg Take 1 [facility] 10 mg 8-26 tablet by [facility] of tablet 00:00: mouth at [place] 00 bedtime. [facility] topiramate 2021-0 Yes [id number] 100mg Take 1 [facility] 100 mg 8-26 tablet by [facility] of tablet 00:00: mouth 2 (two) Medical times [facility] daily. baclofen 5 2021-0 Yes [id number] 5mg Take 1 [facility] mg tablet 8-26 9102 tablet by [facility] o f 00:00: mouth 3 (three) Medical times [facility] daily. albuterol 2022-0 Yes [id number] 2{puff} Inhale 2 [facility] 90 8-26 Puffs ity of mcg/actuati 00:00: every 6 [place] as on inhaler 00 (six) Medical hours as [facility] needed for Wheezing or Shortness of Breath. omeprazole 2022-0 Yes [id number] 40mg Take 2 [facility] 20 mg 8-26 capsules [facility] of capsule 00:00: by mouth 2 [place] (two) [facility] times [facility] daily. pravastatin 2021-0 Yes [id number] 10mg Take 1 [facility] 10 mg 8-26 tablet by [facility] of tablet 00:00: mouth at 00 bedtime. [facility] topiramate 2021-0 Yes [id number] 100mg Take 1 [facility] 100 mg 8-26 tablet by [facility] of tablet 00:00: mouth 2 (two) Medical times [facility] daily. baclofen 5 2021-0 Yes [id number] 5mg Take 1 [facility] mg tablet 8-26 9102 tablet by [facility] o f 00:00: mouth 3 (three) Medical times [facility] daily. albuterol 2021-0 Yes [id number] 2{puff} Inhale 2 [facility] 90 8-26 Puffs ity of mcg/actuati 00:00: every 6 [place] as on inhaler 00 (six) Medical hours as [facility] needed for Wheezing or Shortness of Breath. omeprazole 2021-0 Yes [id number] 40mg Take 2 [facility] 20 mg 8-26 capsules [facility] of capsule 00:00: by mouth [place] (two) [facility] times [facility] daily. pravastatin 2021-0 Yes [id number] 10mg Take 1 [facility] 10 mg 8-26 tablet by [facility] of tablet 00:00: mouth at 00 bedtime. [facility] topiramate 2021-0 Yes [id number] 100mg Take 1 [facility] 100 mg 8-26 tablet by [facility] of tablet 00:00: mouth 2 (two) Medical times [facility] daily. baclofen 5 2021-0 Yes [id number] 5mg Take 1 [facility] mg tablet 8-26 9102 tablet by [facility] o f 00:00: mouth 3 (three) Medical times [facility] daily. albuterol 2021-0 Yes [id number] 2{puff} Inhale 2 [facility] 90 8-26 Puffs [facility]y of mcg/actuati 00:00: every 6 [place] as on inhaler 00 (six) Medical hours as [facility] needed for Wheezing or Shortness of Breath. omeprazole 2-0 Yes [id number] 40mg Take 2 [facility] 20 mg 8-26 capsules [facility] of capsule 00:00: by mouth 2 [place] 00 (two) [facility] times [facility] daily. pravastatin 2-0 Yes [id number] 10mg Take 1 [facility] 10 mg 8-26 tablet by [facility] of tablet 00:00: mouth at [place] 00 bedtime. [facility] topiramate 2021-0 Yes [id number] 100mg Take 1 [facility] 100 mg 8-26 tablet by [facility] of tablet 00:00: mouth 2 00 (two) Medical times [facility] daily. baclofen 5 2021-0 Yes [id number] 5mg Take 1 [facility] mg tablet 8-26 9102 tablet by [facility] o f 00:00: mouth 3 (three) Medical times [facility] daily. albuterol 2021-0 Yes [id number] 2{puff} Inhale 2 [facility] 90 8-26 Puffs ity of mcg/actuati 00:00: every 6 [place] as on inhaler 00 (six) Medical hours as [facility] needed for Wheezing or Shortness of Breath. omeprazole 2021-0 Yes [id number] 40mg Take 2 [facility] 20 mg 8-26 capsules [facility] of capsule 00:00: by mouth [place] (two) [facility] times [facility] daily. pravastatin 2021-0 Yes [id number] 10mg Take 1 [facility] 10 mg 8-26 tablet by [facility] of tablet 00:00: mouth at [place] bedtime. [facility] topiramate 2021-0 Yes [id number] 100mg Take 1 [facility] 100 mg 8-26 tablet by [facility] of tablet 00:00: mouth 2 (two) Medical times [facility] daily. baclofen 5 2021-0 Yes [id number] 5mg Take 1 [facility] mg tablet 8-26 9102 tablet by [facility] o f 00:00: mouth 3 (three) Medical times [facility] daily. albuterol 2021-0 Yes [id number] 2{puff} Inhale 2 [facility] 90 8-26 Puffs ity of mcg/actuati 00:00: every 6 [place] as on inhaler 00 (six) Medical hours as [facility] needed for Wheezing or Shortness of Breath. omeprazole 2-0 Yes [id number] 40mg Take 2 [facility] 20 mg 8-26 capsules [facility] of capsule 00:00: by mouth 2 [place] 00 (two) [facility] times [facility] daily. pravastatin 2-0 Yes [id number] 10mg Take 1 [facility] 10 mg 8-26 tablet by [facility] of tablet 00:00: mouth at [place] 00 bedtime. [facility] topiramate 2021-0 Yes [id number] 100mg Take 1 [facility] 100 mg 8-26 tablet by [facility] of tablet 00:00: mouth 2 00 (two) Medical times [facility] daily. baclofen 5 2021-0 Yes [id number] 5mg Take 1 [facility] mg tablet 8-26 9102 tablet by [facility] o f 00:00: mouth 3 (three) Medical times [facility] daily. albuterol 2021-0 Yes [id number] 2{puff} Inhale 2 [facility] 90 8-26 Puffs ity of mcg/actuati 00:00: every 6 [place] as on inhaler 00 (six) Medical hours as [facility] needed for Wheezing or Shortness of Breath. omeprazole 2021-0 Yes [id number] 40mg Take 2 [facility] 20 mg 8-26 capsules [facility] of capsule 00:00: by mouth 2 [place] (two) [facility] times [facility] daily. pravastatin 2021-0 Yes [id number] 10mg Take 1 [facility] 10 mg 8-26 tablet by [facility] of tablet 00:00: mouth at [place] 00 bedtime. [facility] topiramate 2021-0 Yes [id number] 100mg Take 1 [facility] 100 mg 8-26 tablet by [facility] of tablet 00:00: mouth 2 (two) Medical times [facility] daily. baclofen 5 2021-0 Yes [id number] 5mg Take 1 [facility] mg tablet 8-26 9102 tablet by [facility] o f 00:00: mouth 3 (three) Medical times [facility] daily. albuterol 2021-0 Yes [id number] 2{puff} Inhale 2 [facility] 90 8-26 Puffs ity of mcg/actuati 00:00: every 6 [place] as on inhaler 00 (six) Medical hours as [facility] needed for Wheezing or Shortness of Breath. omeprazole 2-0 Yes [id number] 40mg Take 2 [facility] 20 mg 8-26 capsules [facility] of capsule 00:00: by mouth 2 [place] 00 (two) [facility] times [facility] daily. pravastatin 2022-0 Yes [id number] 10mg Take 1 [facility] 10 mg 8-26 tablet by [facility] of tablet 00:00: mouth at [place] 00 bedtime. [facility] topiramate 2021-0 Yes [id number] 100mg Take 1 [facility] 100 mg 8-26 tablet by [facility] of tablet 00:00: mouth 2 (two) Medical times [facility] daily. baclofen 5 2021-0 Yes [id number] 5mg Take 1 [facility] mg tablet 8-26 9102 tablet by [facility] o f 00:00: mouth 3 (three) Medical times [facility] daily. albuterol 2021-0 Yes [id number] 2{puff} Inhale 2 [facility] 90 8-26 Puffs ity of mcg/actuati 00:00: every 6 [place] as on inhaler 00 (six) Medical hours as [facility] needed for Wheezing or Shortness of Breath. omeprazole 2021-0 Yes [id number] 40mg Take 2 [facility] 20 mg 8-26 capsules [facility] of capsule 00:00: by mouth 2 [place] (two) [facility] times [facility] daily. pravastatin 2021-0 Yes [id number] 10mg Take 1 [facility] 10 mg 8-26 tablet by [facility] of tablet 00:00: mouth at [place] 00 bedtime. [facility] topiramate 2021-0 Yes [id number] 100mg Take 1 [facility] 100 mg 8-26 tablet by [facility]y of tablet 00:00: mouth 2 (two) Medical times [facility] daily. baclofen 5 2021-0 Yes [id number] 5mg Take 1 [facility] mg tablet 8-26 9102 tablet by [facility] o f 00:00: mouth 3 (three) Medical times [facility] daily. albuterol 2021-0 Yes [id number] 2{puff} Inhale 2 [facility] 90 8-26 Puffs ity of mcg/actuati 00:00: every 6 [place] as on inhaler 00 (six) Medical hours as [facility] needed for Wheezing or Shortness of Breath. omeprazole 2021-0 Yes [id number] 40mg Take 2 [facility] 20 mg 8-26 capsules [facility] of capsule 00:00: by mouth 2 [place] (two) [facility] times [facility] daily. pravastatin 2-0 Yes [id number] 10mg Take 1 [facility] 10 mg 8-26 tablet by [facility] of tablet 00:00: mouth at [place] 00 bedtime. [facility] topiramate 2021-0 Yes [id number] 100mg Take 1 [facility] 100 mg 8-26 tablet by [facility] of tablet 00:00: mouth 2 00 (two) Medical times [facility] daily. baclofen 5 2021-0 Yes [id number] 5mg Take 1 [facility] mg tablet 8-26 9102 tablet by [facility] o f 00:00: mouth 3 00 (three) Medical times [facility] daily. albuterol 2021-0 Yes [id number] 2{puff} Inhale 2 [facility] 90 8-26 Puffs ity of mcg/actuati 00:00: every 6 [place] as on inhaler 00 (six) Medical hours as [facility] needed for Wheezing or Shortness of Breath. omeprazole 2021-0 Yes [id number] 40mg Take 2 [facility] 20 mg 8-26 capsules [facility] of capsule 00:00: by mouth 2 [place] 00 (two) [facility] times [facility] daily. pravastatin 2021-0 Yes [id number] 10mg Take 1 [facility] 10 mg 8-26 tablet by [facility] of tablet 00:00: mouth at [place] 00 bedtime. [facility] topiramate 2021-0 Yes [id number] 100mg Take 1 [facility] 100 mg 8-26 tablet by [facility] of tablet 00:00: mouth 2 (two) Medical times [facility] daily. baclofen 5 2021-0 Yes [id number] 5mg Take 1 [facility] mg tablet 8-26 9102 tablet by [facility] o f 00:00: mouth 3 (three) Medical times [facility] daily. albuterol 2021-0 Yes [id number] 2{puff} Inhale 2 [facility] 90 8-26 Puffs ity of mcg/actuati 00:00: every 6 [place] as on inhaler 00 (six) Medical hours as [facility] needed for Wheezing or Shortness of Breath. omeprazole 2021-0 Yes [id number] 40mg Take 2 [facility] 20 mg 8-26 capsules [facility] of capsule 00:00: by mouth 2 [place] 00 (two) [facility] times [facility] daily. pravastatin 2021-0 Yes [id number] 10mg Take 1 [facility] 10 mg 8-26 tablet by [facility] of tablet 00:00: mouth at [place] 00 bedtime. [facility] topiramate 2021-0 Yes [id number] 100mg Take 1 [facility] 100 mg 8-26 tablet by [facility] of tablet 00:00: mouth 2 00 (two) Medical times [facility] daily. baclofen 5 2021-0 Yes [id number] 5mg Take 1 [facility] mg tablet 8-26 9102 tablet by [facility] o f 00:00: mouth 3 (three) Medical times [facility] daily. albuterol 2021-0 Yes [id number] 2{puff} Inhale 2 [facility] 90 8-26 Puffs ity of mcg/actuati 00:00: every 6 [place] as on inhaler 00 (six) Medical hours as Branch needed for Wheezing or Shortness of Breath. omeprazole 2-0 Yes [id number] 40mg Take 2 [facility] 20 mg 8-26 capsules [facility] capsule 00:00: [place] mouth [place] ([place] [facility] times [facility] daily. pravastatin 2021-0 Yes [id number] 10mg Take 1 [facility] 10 mg 8-26 tablet by [facility] of tablet 00:00: mouth at [place] 00 bedtime. [facility] topiramate 2021-0 Yes [id number] 100mg Take 1 [facility] 100 mg 8-26 tablet by [facility] of tablet 00:00: mouth 2 (two) Medical times [facility] daily. baclofen 5 2021-0 Yes [id number] 5mg Take 1 [facility] mg tablet 8-26 9102 tablet by ity o f 00:00: mouth 3 (three) Medical times [facility] daily. albuterol 2021-0 Yes [id number] 2{puff} Inhale 2 [facility] 90 8-26 Puffs [facility] of mcg/actuati 00:00: every 6 [place] on inhaler 00 (six) Medical hours as Branch needed for Wheezing or Shortness of Breath. omeprazole 2021-0 Yes [id number] 40mg Take 2 [facility] 20 mg 8-26 capsules ity of capsule 00:00: by mouth 2 (two) Medical times [facility] daily. pravastatin 2-0 Yes [id number] 10mg Take 1 [facility] 10 mg 8-26 tablet by [facility] of tablet 00:00: mouth at [place] 00 bedtime. [facility] topiramate 2021-0 Yes [id number] 100mg Take 1 [facility] 100 mg 8-26 tablet by [facility] of tablet 00:00: mouth 2 (two) Medical times [facility] daily. baclofen 5 2021-0 Yes [id number] 5mg Take 1 [facility] mg tablet 8-26 9102 tablet by [facility] o f 00:00: mouth 3 (three) Medical times [facility] daily. albuterol 2021-0 Yes [id number] 2{puff} Inhale 2 [facility] 90 8-26 Puffs [facility]y of mcg/actuati 00:00: every 6 [place] on inhaler 00 (six) Medical hours as [facility] needed for Wheezing or Shortness of Breath. omeprazole 2021-0 Yes [id number] 40mg Take 2 [facility] 20 mg 8-26 capsules [facility] capsule 00:00: by mouth [place] (two) [facility] times [facility] daily. pravastatin 2021-0 Yes [id number] 10mg Take 1 [facility] 10 mg 8-26 tablet by [facility] of tablet 00:00: mouth at [place] 00 bedtime. [facility] topiramate 2021-0 Yes [id number] 100mg Take 1 [facility] 100 mg 8-26 tablet by [facility] of tablet 00:00: mouth (two) Medical times [facility] daily. baclofen 5 2021-0 Yes [id number] 5mg Take 1 [facility] mg tablet 8-26 9102 tablet by [facility] o f 00:00: mouth 3 (three) Medical times [facility] daily. albuterol 2021-0 Yes [id number] 2{puff} Inhale 2 [facility] 90 8-26 Puffs [facility] of mcg/actuati 00:00: every 6 [place] on inhaler 00 (six) Medical hours as [facility] needed for Wheezing or Shortness of Breath. omeprazole 2021-0 Yes [id number] 40mg Take 2 [facility] 20 mg 8-26 capsules [facility] capsule 00:00: by mouth [place] (two) [facility] times [facility] daily. pravastatin 2021-0 Yes [id number] 10mg Take 1 [facility] 10 mg 8-26 tablet by [facility] of tablet 00:00: mouth at 00 bedtime. [facility] topiramate 2021-0 Yes [id number] 100mg Take 1 [facility] 100 mg 8-26 tablet by [facility] of tablet 00:00: mouth (two) Medical times [facility] daily. baclofen 5 2021-0 Yes [id number] 5mg Take 1 [facility] mg tablet 8-26 9102 tablet by [facility] o f 00:00: mouth 3 (three) Medical times [facility] daily. albuterol 2021-0 Yes [id number] 2{puff} Inhale 2 [facility] 90 8-26 Puffs [facility]y of mcg/actuati 00:00: every 6 [place] on inhaler 00 (six) Medical hours as [facility] needed for Wheezing or Shortness of Breath. omeprazole 2021-0 Yes [id number] 40mg Take 2 [facility] 20 mg 8-26 capsules [facility] capsule 00:00: by mouth 2 [place] 00 (two) [facility] times [facility] daily. pravastatin 2021-0 Yes [id number] 10mg Take 1 [facility] 10 mg 8-26 tablet by [facility] of tablet 00:00: mouth at [place] 00 bedtime. [facility] topiramate 2021-0 Yes [id number] 100mg Take 1 [facility] 100 mg 8-26 tablet by [facility] of tablet 00:00: mouth 2 00 (two) Medical times [facility] daily. baclofen 5 2021-0 Yes [id number] 5mg Take 1 [facility] mg tablet 8-26 9102 tablet by ity o f 00:00: mouth 3 (three) Medical times [facility] daily. albuterol 2021-0 Yes [id number] 2{puff} Inhale 2 [facility] 90 8-26 Puffs [facility]y of mcg/actuati 00:00: every 6 [place] on inhaler 00 (six) Medical hours as [facility] needed for Wheezing or Shortness of Breath. omeprazole 2021-0 Yes [id number] 40mg Take 2 [facility] 20 mg 8-26 capsules [facility] of capsule 00:00: by mouth 2 [place] 00 (two) [facility] times [facility] daily. pravastatin 2021-0 Yes [id number] 10mg Take 1 [facility] 10 mg 8-26 tablet by [facility] of tablet 00:00: mouth at [place] 00 bedtime. [facility] topiramate 2021-0 Yes [id number] 100mg Take 1 [facility] 100 mg 8-26 tablet by [facility] of tablet 00:00: mouth 2 00 (two) Medical times [facility] daily. baclofen 5 2021-0 Yes [id number] 5mg Take 1 [facility] mg tablet 8-26 9102 tablet by ity o f 00:00: mouth 3 00 (three) Medical times [facility] daily. albuterol 2021-0 Yes [id number] 2{puff} Inhale 2 [facility] 90 8-26 Puffs [facility]y of mcg/actuati 00:00: every 6 [place] on inhaler 00 (six) Medical hours as [facility] needed for Wheezing or Shortness of Breath. omeprazole 2022-0 Yes [id number] 40mg Take 2 [facility] 20 mg 8-26 capsules [facility] of capsule 00:00: by mouth 2 [place] 00 (two) [facility] times [facility] daily. pravastatin 2-0 Yes [id number] 10mg Take 1 [facility] 10 mg 8-26 tablet by [facility] of tablet 00:00: mouth at [place] 00 bedtime. [facility] topiramate 2021-0 Yes [id number] 100mg Take 1 [facility] 100 mg 8-26 tablet by [facility] of tablet 00:00: mouth 2 00 (two) Medical times [facility] daily. baclofen 5 2021-0 Yes [id number] 5mg Take 1 [facility] mg tablet 8-26 9102 tablet by ity o f 00:00: mouth 3 (three) Medical times [facility] daily. albuterol 2021-0 Yes [id number] 2{puff} Inhale 2 [facility] 90 8-26 Puffs [facility]y of mcg/actuati 00:00: every 6 [place] on inhaler 00 (six) Medical hours as [facility] needed for Wheezing or Shortness of Breath. omeprazole 2021-0 Yes [id number] 40mg Take 2 [facility] 20 mg 8-26 capsules [facility] of capsule 00:00: by mouth 2 [place] 00 (two) [facility] times [facility] daily. pravastatin 2021-0 Yes [id number] 10mg Take 1 [facility] 10 mg 8-26 tablet by [facility] of tablet 00:00: mouth at [place] 00 bedtime. [facility] topiramate 2021-0 Yes [id number] 100mg Take 1 [facility] 100 mg 8-26 tablet by [facility] of tablet 00:00: mouth 2 (two) Medical times [facility] daily. baclofen 5 2021-0 Yes [id number] 5mg Take 1 [facility] mg tablet 8-26 9102 tablet by ity o f 00:00: mouth 3 (three) Medical times [facility] daily. albuterol 2-0 Yes [id number] 2{puff} Inhale 2 [facility] 90 8-26 Puffs ity of mcg/actuati 00:00: every 6 [place] on inhaler 00 (six) Medical hours as [facility] needed for Wheezing or Shortness of Breath. omeprazole 2-0 Yes [id number] 40mg Take 2 [facility] 20 mg 8-26 capsules [facility] of capsule 00:00: by mouth 2 [place] (two) [facility] times [facility] daily. pravastatin 2021-0 Yes [id number] 10mg Take 1 [facility] 10 mg 8-26 tablet by [facility] of tablet 00:00: mouth at 00 bedtime. [facility] topiramate 2021-0 Yes [id number] 100mg Take 1 [facility] 100 mg 8-26 tablet by [facility] of tablet 00:00: mouth 2 00 (two) Medical times [facility] daily. baclofen 5 2021-0 Yes [id number] 5mg Take 1 [facility] mg tablet 8-26 9102 tablet by ity o f 00:00: mouth 3 (three) Medical times [facility] daily. albuterol 2021-0 Yes [id number] 2{puff} Inhale 2 [facility] 90 8-26 Puffs ity of mcg/actuati 00:00: every 6 [place] on inhaler 00 (six) Medical hours as [facility] needed for Wheezing or Shortness of Breath. omeprazole 2021-0 Yes [id number] 40mg Take 2 [facility] 20 mg 8-26 capsules [facility] of capsule 00:00: by mouth 2 [place] (two) [facility] times [facility] daily. pravastatin 2021-0 Yes [id number] 10mg Take 1 [facility] 10 mg 8-26 tablet by [facility] of tablet 00:00: mouth at 00 bedtime. [facility] topiramate 2021-0 Yes [id number] 100mg Take 1 [facility] 100 mg 8-26 tablet by [facility] of tablet 00:00: mouth 2 (two) Medical times [facility] daily. baclofen 5 2021-0 Yes [id number] 5mg Take 1 [facility] mg tablet 8-26 9102 tablet by [facility] o f 00:00: mouth 3 (three) Medical times [facility] daily. albuterol 2021-0 Yes [id number] 2{puff} Inhale 2 [facility] 90 8-26 Puffs [facility]y of mcg/actuati 00:00: every 6 [place] on inhaler 00 (six) Medical hours as [facility] needed for Wheezing or Shortness of Breath. omeprazole 2-0 Yes [id number] 40mg Take 2 [facility] 20 mg 8-26 capsules [facility] of capsule 00:00: by mouth 2 [place] 00 (two) [facility] times [facility] daily. pravastatin 2022-0 Yes [id number] 10mg Take 1 [facility] 10 mg 8-26 tablet by [facility] of tablet 00:00: mouth at [place] 00 bedtime. [facility] topiramate 2021-0 Yes [id number] 100mg Take 1 [facility] 100 mg 8-26 tablet by [facility] of tablet 00:00: mouth 2 (two) Medical times [facility] daily. baclofen 5 2021-0 Yes [id number] 5mg Take 1 [facility] mg tablet 8-26 9102 tablet by ity o f 00:00: mouth 3 (three) Medical times [facility] daily. albuterol 2021-0 Yes [id number] 2{puff} Inhale 2 [facility] 90 8-26 Puffs [facility]y of mcg/actuati 00:00: every 6 [place] on inhaler 00 (six) Medical hours as [facility] needed for Wheezing or Shortness of Breath. omeprazole 2021-0 Yes [id number] 40mg Take 2 [facility] 20 mg 8-26 capsules [facility] of capsule 00:00: by mouth 2 [place] (two) [facility] times [facility] daily. pravastatin 2021-0 Yes [id number] 10mg Take 1 [facility] 10 mg 8-26 tablet by [facility] of tablet 00:00: mouth at [place] bedtime. [facility] topiramate 2021-0 Yes [id number] 100mg Take 1 [facility] 100 mg 8-26 tablet by ity of tablet 00:00: mouth 2 (two) Medical times [facility] daily. baclofen 5 2021-0 Yes [id number] 5mg Take 1 [facility] mg tablet 8-26 9102 tablet by ity o f 00:00: mouth 3 (three) Medical times [facility] daily. albuterol 2021-0 Yes [id number] 2{puff} Inhale 2 [facility] 90 8-26 Puffs [facility]y of mcg/actuati 00:00: every 6 [place] on inhaler 00 (six) Medical hours as [facility] needed for Wheezing or Shortness of Breath. omeprazole 2-0 Yes [id number] 40mg Take 2 [facility] 20 mg 8-26 capsules [facility] of capsule 00:00: by mouth 2 [place] 00 (two) [facility] times [facility] daily. pravastatin 2021-0 Yes [id number] 10mg Take 1 [facility] 10 mg 8-26 tablet by ity of tablet 00:00: mouth at [place] 00 bedtime. [facility] topiramate 2021-0 Yes [id number] 100mg Take 1 [facility] 100 mg 8-26 tablet by [facility]y of tablet 00:00: mouth 2 (two) Medical times [facility] daily. baclofen 5 2021-0 Yes [id number] 5mg Take 1 [facility] mg tablet 8-26 9102 tablet by ity o f 00:00: mouth 3 (three) Medical times [facility] daily. albuterol 2021-0 Yes [id number] 2{puff} Inhale 2 [facility] 90 8-26 Puffs ity of mcg/actuati 00:00: every 6 [place] on inhaler 00 (six) Medical hours as [facility] needed for Wheezing or Shortness of Breath. omeprazole 2021-0 Yes [id number] 40mg Take 2 [facility] 20 mg 8-26 capsules [facility] of capsule 00:00: by mouth 2 [place] (two) [facility] times [facility] daily. pravastatin 2021-0 Yes [id number] 10mg Take 1 [facility] 10 mg 8-26 tablet by [facility]y of tablet 00:00: mouth at [place] bedtime. [facility] topiramate 2021-0 Yes [id number] 100mg Take 1 [facility] 100 mg 8-26 tablet by ity of tablet 00:00: mouth 2 (two) Medical times [facility] daily. baclofen 5 2021-0 Yes [id number] 5mg Take 1 [facility] mg tablet 8-26 9102 tablet by ity o f 00:00: mouth 3 (three) Medical times [facility] daily. albuterol 2021-0 Yes [id number] 2{puff} Inhale 2 [facility] 90 8-26 Puffs ity of mcg/actuati 00:00: every 6 [place] on inhaler 00 (six) Medical hours as [facility] needed for Wheezing or Shortness of Breath. omeprazole 2-0 Yes [id number] 40mg Take 2 [facility] 20 mg 8-26 capsules [facility] of capsule 00:00: by mouth 2 [place] 00 (two) [facility] times [facility] daily. pravastatin 2022-0 Yes [id number] 10mg Take 1 [facility] 10 mg 8-26 tablet by ity of tablet 00:00: mouth at [place] 00 bedtime. [facility] topiramate 2021-0 Yes [id number] 100mg Take 1 [facility] 100 mg 8-26 tablet by ity of tablet 00:00: mouth 2 00 (two) Medical times [facility] daily. baclofen 5 2021-0 Yes [id number] 5mg Take 1 [facility] mg tablet 8-26 9102 tablet by ity o f 00:00: mouth 3 (three) Medical times [facility] daily. albuterol 2021-0 Yes [id number] 2{puff} Inhale 2 [facility] 90 8-26 Puffs [facility]y of mcg/actuati 00:00: every 6 [place] on inhaler 00 (six) Medical hours as [facility] needed for Wheezing or Shortness of Breath. omeprazole 2021-0 Yes [id number] 40mg Take 2 [facility] 20 mg 8-26 capsules [facility] capsule 00:00: by mouth [place] (two[place] [facility] times [facility] daily. pravastatin 2021-0 Yes [id number] 10mg Take 1 [facility] 10 mg 8-26 tablet by [facility] of tablet 00:00: mouth at 00 bedtime. [facility] topiramate 2021-0 Yes [id number] 100mg Take 1 [facility] 100 mg 8-26 tablet by ity of tablet 00:00: mouth 2 (two) Medical times [facility] daily. baclofen 5 2021-0 Yes [id number] 5mg Take 1 [facility] mg tablet 8-26 9102 tablet by ity o f 00:00: mouth 3 (three) Medical times [facility] daily. albuterol 2021-0 Yes [id number] 2{puff} Inhale 2 [facility] 90 8-26 Puffs ity of mcg/actuati 00:00: every 6 [place] on inhaler 00 (six) Medical hours as [facility] needed for Wheezing or Shortness of Breath. omeprazole 2021-0 Yes [id number] 40mg Take 2 [facility] 20 mg 8-26 capsules [facility] of capsule 00:00: by mouth 2 [place] (two) [facility] times [facility] daily. pravastatin 2022-0 Yes [id number] 10mg Take 1 [facility] 10 mg 8-26 tablet by [facility] of tablet 00:00: mouth at 00 bedtime. [facility] topiramate 2021-0 Yes [id number] 100mg Take 1 [facility] 100 mg 8-26 tablet by ity of tablet 00:00: mouth 2 (two) Medical times [facility] daily. baclofen 5 2021-0 Yes [id number] 5mg Take 1 [facility] mg tablet 8-26 9102 tablet by ity o f 00:00: mouth 3 (three) Medical times [facility] daily. albuterol 2021-0 Yes [id number] 2{puff} Inhale 2 [facility] 90 8-26 Puffs ity of mcg/actuati 00:00: every 6 [place] on inhaler 00 (six) Medical hours as [facility] needed for Wheezing or Shortness of Breath. omeprazole 2021-0 Yes [id number] 40mg Take 2 [facility] 20 mg 8-26 capsules [facility] of capsule 00:00: by mouth 2 [place] 00 (two) [facility] times [facility] daily. pravastatin 2021-0 Yes [id number] 10mg Take 1 [facility] 10 mg 8-26 tablet by ity of tablet 00:00: mouth at [place] 00 bedtime. [facility] topiramate 2021-0 Yes [id number] 100mg Take 1 [facility] 100 mg 8-26 tablet by ity of tablet 00:00: mouth 2 (two) Medical times [facility] daily. baclofen 5 2021-0 Yes [id number] 5mg Take 1 [facility] mg tablet 8-26 9102 tablet by ity o f 00:00: mouth 3 (three) Medical times [facility] daily. albuterol 2021-0 Yes [id number] 2{puff} Inhale 2 [facility] 90 8-26 Puffs ity of mcg/actuati 00:00: every 6 [place] on inhaler 00 (six) Medical hours as [facility] needed for Wheezing or Shortness of Breath. omeprazole 2021-0 Yes [id number] 40mg Take 2 [facility] 20 mg 8-26 capsules [facility] of capsule 00:00: by mouth 2 [place] (two) [facility] times [facility] daily. pravastatin 2-0 Yes [id number] 10mg Take 1 [facility] 10 mg 8-26 tablet by [facility]y of tablet 00:00: mouth at [place] 00 bedtime. [facility] topiramate 2021-0 Yes [id number] 100mg Take 1 [facility] 100 mg 8-26 tablet by ity of tablet 00:00: mouth 2 00 (two) Medical times [facility] daily. baclofen 5 2021-0 Yes [id number] 5mg Take 1 [facility] mg tablet 8-26 9102 tablet by ity o f 00:00: mouth 3 (three) Medical times [facility] daily. albuterol 202-0 Yes [id number] 2{puff} Inhale 2 [facility] 90 8-26 Puffs ity of mcg/actuati 00:00: every 6 [place] on inhaler 00 (six) Medical hours as Branch needed for Wheezing or Shortness of Breath. omeprazole 2022-0 Yes [id number] 40mg Take 2 [facility] 20 mg 8-26 capsules [facility] of capsule 00:00: by mouth 2 [place] (two) [facility] times [facility] daily. pravastatin 2021-0 Yes [id number] 10mg Take 1 [facility] 10 mg 8-26 tablet by [facility] of tablet 00:00: mouth at 00 bedtime. [facility] topiramate 2021-0 Yes [id number] 100mg Take 1 [facility] 100 mg 8-26 tablet by ity of tablet 00:00: mouth (two) Medical times [facility] daily. baclofen 5 2021-0 Yes [id number] 5mg Take 1 [facility] mg tablet 8-26 9102 tablet by ity o f 00:00: mouth 3 (three) Medical times [facility] daily. albuterol 2021-0 Yes [id number] 2{puff} Inhale 2 [facility] 90 8-26 Puffs ity of mcg/actuati 00:00: every 6 [place] on inhaler 00 (six) Medical hours as Branch needed for Wheezing or Shortness of Breath. omeprazole 2021-0 Yes [id number] 40mg Take 2 [facility] 20 mg 8-26 capsules ity of capsule 00:00: by mouth 2 (two) Medical times [facility] daily. pravastatin 2-0 Yes [id number] 10mg Take 1 [facility] 10 mg 8-26 tablet by [facility] of tablet 00:00: mouth at 00 bedtime. [facility] topiramate 2-0 Yes [id number] 100mg Take 1 [facility] 100 mg 8-26 tablet by ity of tablet 00:00: mouth 2 (two) Medical times [facility] daily. baclofen 5 2021-0 Yes [id number] 5mg Take 1 [facility] mg tablet 8-26 9102 tablet by ity o f 00:00: mouth 3 (three) Medical times [facility] daily. albuterol 2022-0 Yes [id number] 2{puff} Inhale 2 [facility] 90 8-26 Puffs ity of mcg/actuati 00:00: every 6 [place] on inhaler 00 (six) Medical hours as [facility] needed for Wheezing or Shortness of Breath. omeprazole 2021-0 Yes [id number] 40mg Take 2 [facility] 20 mg 8-26 capsules [facility] of capsule 00:00: by mouth 2 [place] 00 (two) [facility] times [facility] daily. pravastatin 2021-0 Yes [id number] 10mg Take 1 [facility] 10 mg 8-26 tablet by [facility]y of tablet 00:00: mouth at 00 bedtime. [facility] topiramate 2021-0 Yes [id number] 100mg Take 1 [facility] 100 mg 8-26 tablet by [facility]y of tablet 00:00: mouth 2 (two) Medical times [facility] daily. baclofen 5 2021-0 Yes [id number] 5mg Take 1 [facility] mg tablet 8-26 9102 tablet by ity o f 00:00: mouth 3 (three) Medical times [facility] daily. albuterol 2021-0 Yes [id number] 2{puff} Inhale 2 [facility] 90 8-26 Puffs ity of mcg/actuati 00:00: every 6 [place] on inhaler 00 (six) Medical hours as [facility] needed for Wheezing or Shortness of Breath. omeprazole 2021-0 Yes [id number] 40mg Take 2 [facility] 20 mg 8-26 capsules [facility] of capsule 00:00: by mouth 2 [place] 00 (two) [facility] times [facility] daily. pravastatin 2021-0 Yes [id number] 10mg Take 1 [facility] 10 mg 8-26 tablet by [facility]y of tablet 00:00: mouth at 00 bedtime. [facility] topiramate 2021-0 Yes [id number] 100mg Take 1 [facility] 100 mg 8-26 tablet by ity of tablet 00:00: mouth 2 (two) Medical times [facility] daily. baclofen 5 2021-0 Yes [id number] 5mg Take 1 [facility] mg tablet 8-26 9102 tablet by ity o f 00:00: mouth 3 (three) Medical times [facility] daily. albuterol 2021-0 Yes [id number] 2{puff} Inhale 2 [facility] 90 8-26 Puffs ity of mcg/actuati 00:00: every 6 [place] on inhaler 00 (six) Medical hours as [facility] needed for Wheezing or Shortness of Breath. omeprazole 2022-0 Yes [id number] 40mg Take 2 [facility] 20 mg 8-26 capsules [facility] of capsule 00:00: by mouth 2 [place] 00 (two) [facility] times [facility] daily. pravastatin 2022-0 Yes [id number] 10mg Take 1 [facility] 10 mg 8-26 tablet by ity of tablet 00:00: mouth at [place] 00 bedtime. [facility] topiramate 2021-0 Yes [id number] 100mg Take 1 [facility] 100 mg 8-26 tablet by ity of tablet 00:00: mouth 2 00 (two) Medical times [facility] daily. baclofen 5 2021-0 Yes [id number] 5mg Take 1 [facility] mg tablet 8-26 9102 tablet by ity o f 00:00: mouth 3 (three) Medical times [facility] daily. albuterol 2021-0 Yes [id number] 2{puff} Inhale 2 [facility] 90 8-26 Puffs ity of mcg/actuati 00:00: every 6 [place] on inhaler 00 (six) Medical hours as [facility] needed for Wheezing or Shortness of Breath. omeprazole 2021-0 Yes [id number] 40mg Take 2 [facility] 20 mg 8-26 capsules [facility] of capsule 00:00: by mouth 2 [place] 00 (two) [facility] times [facility] daily. pravastatin 2021-0 Yes [id number] 10mg Take 1 [facility] 10 mg 8-26 tablet by [facility]y of tablet 00:00: mouth at 00 bedtime. [facility] topiramate 2021-0 Yes [id number] 100mg Take 1 [facility] 100 mg 8-26 tablet by ity of tablet 00:00: mouth 2 00 (two) Medical times [facility] daily. baclofen 5 2021-0 Yes [id number] 5mg Take 1 [facility] mg tablet 8-26 9102 tablet by ity o f 00:00: mouth 3 00 (three) Medical times [facility] daily. albuterol 2021-0 Yes [id number] 2{puff} Inhale 2 [facility] 90 8-26 Puffs ity of mcg/actuati 00:00: every 6 [place] on inhaler 00 (six) Medical hours as [facility] needed for Wheezing or Shortness of Breath. omeprazole 2022-0 Yes [id number] 40mg Take 2 [facility] 20 mg 8-26 capsules [facility] of capsule 00:00: by mouth 2 [place] 00 (two) [facility] times [facility] daily. pravastatin 2022-0 Yes [id number] 10mg Take 1 [facility] 10 mg 8-26 tablet by [facility]y of tablet 00:00: mouth at [place] 00 bedtime. [facility] topiramate 2021-0 Yes [id number] 100mg Take 1 [facility] 100 mg 8-26 tablet by ity of tablet 00:00: mouth 2 00 (two) Medical times [facility] daily. baclofen 5 2021-0 Yes [id number] 5mg Take 1 [facility] mg tablet 8-26 9102 tablet by ity o f 00:00: mouth 3 (three) Medical times [facility] daily. albuterol 2021-0 Yes [id number] 2{puff} Inhale 2 [facility] 90 8-26 Puffs ity of mcg/actuati 00:00: every 6 [place] on inhaler 00 (six) Medical hours as Branch needed for Wheezing or Shortness of Breath. omeprazole 2021-0 Yes [id number] 40mg Take 2 [facility] 20 mg 8-26 capsules [facility]y of capsule 00:00: by mouth 2 [place] (two) [facility] times [facility] daily. pravastatin 2021-0 Yes [id number] 10mg Take 1 [facility] 10 mg 8-26 tablet by ity of tablet 00:00: mouth at [place] 00 bedtime. [facility] topiramate 2021-0 Yes [id number] 100mg Take 1 [facility] 100 mg 8-26 tablet by ity of tablet 00:00: mouth 2 (two) Medical times [facility] daily. baclofen 5 2021-0 Yes [id number] 5mg Take 1 [facility] mg tablet 8-26 9102 tablet by ity o f 00:00: mouth 3 (three) Medical times [facility] daily. albuterol 2022-0 Yes [id number] 2{puff} Inhale 2 [facility] 90 8-26 Puffs ity of mcg/actuati 00:00: every 6 [place] on inhaler 00 (six) Medical hours as Branch needed for Wheezing or Shortness of Breath. omeprazole 2-0 Yes [id number] 40mg Take 2 [facility] 20 mg 8-26 capsules ity of capsule 00:00: by mouth 2 [place] 00 (two) [facility] times [facility] daily. pravastatin 0 Yes [id number] 10mg Take 1 [facility] 10 mg 8-26 tablet by ity of tablet 00:00: mouth at [place] 00 bedtime. [facility] pravastatin 0 Yes [facility] (Pravachol) 8-26 [facility] 10 MG 00:00: tablet 00 pravastatin 2021-0 Yes [facility] (Pravachol) 8-26 [facility] 10 MG 00:00: tablet 00 Topiramate 0 2023- No 100mg Take 1 [facility] se[facility] 100 MG oral 8- 04-10 tablet [facility] ld Tablet 00:00: 00:00 (100 mg - 00 :00 total) by Externa mouth 2 l times daily Ondansetron 0 Yes 4mg [id number] Take 1 [facility] (ZOFRAN) 4 8-21 [id number] tablet (4 [facility] MG oral 00:00: 3D mg total) - TABLET 00 by mouth Externa DISPERSIBLE every 8 l hours as needed ondansetron 2021-0 Yes [id number] 4mg Take 1 [facility] 4 mg 8-21 tablet by ity of disintegrat 00:00: mouth [place] ing tablet 00 every 8 Medica l (eight) Branch hours as needed for Nausea and Vomiting (N/V). ondansetron 2021-0 Yes [id number] 4mg Take 1 [facility] 4 mg 8-21 tablet by ity of disintegrat 00:00: mouth [place] ing tablet 00 every 8 Medica l (eight) Branch hours as needed for Nausea and Vomiting (N/V). ondansetron 2021-0 Yes [id number] 4mg Take 1 [facility] 4 mg 8-21 tablet by ity of disintegrat 00:00: mouth [place] ing tablet 00 every 8 Medica l (eight) Branch hours as needed for Nausea and Vomiting (N/V). ondansetron 2021-0 Yes [id number] 4mg Take 1 [facility] 4 mg 8-21 tablet by ity of disintegrat 00:00: mouth [place] ing tablet 00 every 8 Medica l (eight) Branch hours as needed for Nausea and Vomiting (N/V). ondansetron 2021-0 Yes [id number] 4mg Take 1 [facility] 4 mg 8-21 tablet by ity of disintegrat 00:00: mouth [place] ing tablet 00 every 8 Medica l (eight) Branch hours as needed for Nausea and Vomiting (N/V). ondansetron 2022-0 Yes [id number] 4mg Take 1 [facility] 4 mg 8-21 tablet by ity of disintegrat 00:00: mouth [place] ing tablet 00 every 8 [facility]ica l (eight) Branch hours as needed for Nausea and Vomiting (N/V). ondansetron 2-0 Yes [id number] 4mg Take 1 [facility] 4 mg 8-21 tablet by ity of disintegrat 00:00: mouth [place] ing tablet 00 every 8 [facility]ica l (eight) Branch hours as needed for Nausea and Vomiting (N/V). ondansetron 2-0 Yes [id number] 4mg Take 1 [facility] 4 mg 8-21 tablet by ity of disintegrat 00:00: mouth [place] ing tablet 00 every 8 [facility]ica [facility] (eight) Branch hours as needed for Nausea and Vomiting (N/V). ondansetron 2-0 Yes [id number] 4mg Take 1 [facility] 4 mg 8-21 tablet by ity of disintegrat 00:00: mouth [place] ing tablet 00 every 8 [facility]ica l (eight) Branch hours as needed for Nausea and Vomiting (N/V). ondansetron 2-0 Yes [id number] 4mg Take 1 [facility] 4 mg 8-21 tablet by ity of disintegrat 00:00: mouth [place] ing tablet 00 every 8 [facility]ica l (eight) Branch hours as needed for Nausea and Vomiting (N/V). ondansetron 2-0 Yes [id number] 4mg Take 1 [facility] 4 mg 8-21 tablet by ity of disintegrat 00:00: mouth [place] ing tablet 00 every 8 Medica [facility] (eight) Branch hours as needed for Nausea and Vomiting (N/V). ondansetron 2022-0 Yes [id number] 4mg Take 1 [facility] 4 mg 8-21 tablet by [facility] of disintegrat 00:00: mouth [place] ing tablet 00 every 8 [facility] (eight[facility] Branch hours as needed for Nausea and Vomiting (N/V). ondansetron 2022-0 Yes [id number] 4mg Take 1 [facility] 4 mg 8-21 tablet by [facility] of disintegrat 00:00: mouth [place] ing tablet 00 every 8 [facility] (eight) Branch hours as needed for Nausea and Vomiting (N/V). ondansetron 2022-0 Yes [id number] 4mg Take 1 [facility] 4 mg 8-21 tablet by [facility] of disintegrat 00:00: mouth [place] ing tablet 00 every 8 [facility] (eight) Branch hours as needed for Nausea and Vomiting (N/V). ondansetron 2022-0 Yes [id number] 4mg Take 1 [facility] 4 mg 8-21 tablet by [facility] of disintegrat 00:00: mouth [place] ing tablet 00 every 8 [facility] (eight) Branch hours as needed for Nausea and Vomiting (N/V). ondansetron 2022-0 Yes [id number] 4mg Take 1 [facility] 4 mg 8-21 tablet by [facility] of disintegrat 00:00: mouth [place] ing tablet 00 every 8 [facility] (eight) Branch hours as needed for Nausea and Vomiting (N/V). ondansetron 2022-0 Yes [id number] 4mg Take 1 [facility] 4 mg 8-21 tablet by [facility] of disintegrat 00:00: mouth [place] ing tablet 00 every 8 [facility] (eight) Branch hours as needed for Nausea and Vomiting (N/V). ondansetron 2022-0 Yes [id number] 4mg Take 1 [facility] 4 mg 8-21 tablet by [facility] of disintegrat 00:00: mouth [place] ing tablet 00 every 8 [facility] (eight) Branch hours as needed for Nausea and Vomiting (N/V). ondansetron 2022-0 Yes [id number] 4mg Take 1 [facility] 4 mg 8-21 tablet by [facility] of disintegrat 00:00: mouth [place] ing tablet 00 every 8 [facility] (eight) Branch hours as needed for Nausea and Vomiting (N/V). ondansetron 2022-0 Yes [id number] 4mg Take 1 [facility] 4 mg 8-21 tablet by [facility] of disintegrat 00:00: mouth [place] ing tablet 00 every 8 [facility] (eight) Branch hours as needed for Nausea and Vomiting (N/V). ondansetron 2022-0 Yes [id number] 4mg Take 1 [facility] 4 mg 8-21 tablet by [facility] of disintegrat 00:00: mouth [place] ing tablet 00 every 8 [facility] (eight) Branch hours as needed for Nausea and Vomiting (N/V). ondansetron 2022-0 Yes [id number] 4mg Take 1 [facility] 4 mg 8-21 tablet by [facility] of disintegrat 00:00: mouth [place] ing tablet 00 every 8 [facility] (eight) Branch hours as needed for Nausea and Vomiting (N/V). ondansetron 2-0 Yes [id number] 4mg Take 1 [facility] 4 mg 8-21 tablet by [facility] of disintegrat 00:00: mouth [place] ing tablet 00 every 8 [facility] (eight) [facility] hours as needed for Nausea and Vomiting (N/V). ondansetron 2-0 Yes [id number] 4mg Take 1 [facility] 4 mg 8-21 tablet by [facility] of disintegrat 00:00: mouth [place] ing tablet 00 every 8 [facility] (eight) [facility] hours as needed for Nausea and Vomiting (N/V). ondansetron 2-0 Yes [id number] 4mg Take 1 [facility] 4 mg 8-21 tablet by [facility] of disintegrat 00:00: mouth [place] ing tablet 00 every 8 [facility] (eight) [facility] hours as needed for Nausea and Vomiting (N/V). ondansetron 2-0 Yes [id number] 4mg Take 1 [facility] 4 mg 8-21 tablet by [facility] of disintegrat 00:00: mouth [place] ing tablet 00 every 8 [facility] (eight) [facility] hours as needed for Nausea and Vomiting (N/V). ondansetron 2-0 Yes [id number] 4mg Take 1 [facility] 4 mg 8-21 tablet by [facility] of disintegrat 00:00: mouth [place] ing tablet 00 every 8 [facility] (eight) [facility] hours as needed for Nausea and Vomiting (N/V). ondansetron 2-0 Yes [id number] 4mg Take 1 [facility] 4 mg 8-21 tablet by [facility] of disintegrat 00:00: mouth [place] ing tablet 00 every 8 [facility] (eight) [facility] hours as needed for Nausea and Vomiting (N/V). ondansetron 2022-0 Yes [id number] 4mg Take 1 [facility] 4 mg 8-21 tablet by [facility] of disintegrat 00:00: mouth [place] ing tablet 00 every 8 [facility] (eight) [facility] hours as needed for Nausea and Vomiting (N/V). ondansetron 2022-0 Yes [id number] 4mg Take 1 [facility] 4 mg 8-21 tablet by [facility] of disintegrat 00:00: mouth [place] ing tablet 00 every 8 [facility] (eight) [facility] hours as needed for Nausea and Vomiting (N/V). ondansetron 2-0 Yes [id number] 4mg Take 1 [facility] 4 mg 8-21 tablet by [facility] of disintegrat 00:00: mouth [place] ing tablet 00 every 8 [facility] (eight) [facility] hours as needed for Nausea and Vomiting (N/V). ondansetron 2-0 Yes [id number] 4mg Take 1 [facility] 4 mg 8-21 tablet by [facility] of disintegrat 00:00: mouth [place] ing tablet 00 every 8 [facility] (eight) [facility] hours as needed for Nausea and Vomiting (N/V). ondansetron 2-0 Yes [id number] 4mg Take 1 [facility] 4 mg 8-21 tablet by [facility] of disintegrat 00:00: mouth [place] ing tablet 00 every 8 [facility] (eight) [facility] hours as needed for Nausea and Vomiting (N/V). ondansetron 2-0 Yes [id number] 4mg Take 1 [facility] 4 mg 8-21 tablet by [facility] of disintegrat 00:00: mouth [place] ing tablet 00 every 8 [facility] (eight) Branch hours as needed for Nausea and Vomiting (N/V). ondansetron 2-0 Yes [id number] 4mg Take 1 [facility] 4 mg 8-21 tablet by [facility] of disintegrat 00:00: mouth [place] ing tablet 00 every 8 [facility] (eight) [facility] hours as needed for Nausea and Vomiting (N/V). ondansetron 2022-0 Yes [id number] 4mg Take 1 [facility] 4 mg 8-21 tablet by [facility] of disintegrat 00:00: mouth [place] ing tablet 00 every 8 [facility] (eight) [facility] hours as needed for Nausea and Vomiting (N/V). ondansetron 2022-0 Yes [id number] 4mg Take 1 [facility] 4 mg 8-21 tablet by [facility] of disintegrat 00:00: mouth [place] ing tablet 00 every 8 [facility] (eight) [facility] hours as needed for Nausea and Vomiting (N/V). ondansetron 2022-0 Yes [id number] 4mg Take 1 [facility] 4 mg 8-21 tablet by [facility] of disintegrat 00:00: mouth [place] ing tablet 00 every 8 [facility] (eight) [facility] hours as needed for Nausea and Vomiting (N/V). ondansetron 2-0 Yes [id number] 4mg Take 1 [facility] 4 mg 8-21 tablet by [facility] of disintegrat 00:00: mouth [place] ing tablet 00 every 8 [facility] (eight) Branch hours as needed for Nausea and Vomiting (N/V). ondansetron 2-0 Yes [id number] 4mg Take 1 [facility] 4 mg 8-21 tablet by [facility] of disintegrat 00:00: mouth [place] ing tablet 00 every 8 [facility] (eight) [facility] hours as needed for Nausea and Vomiting (N/V). ondansetron 2-0 Yes [id number] 4mg Take 1 [facility] 4 mg 8-21 tablet by [facility] of disintegrat 00:00: mouth [place] ing tablet 00 every 8 [facility] (eight) Branch hours as needed for Nausea and Vomiting (N/V). ondansetron 2-0 Yes [id number] 4mg Take 1 [facility] 4 mg 8-21 tablet by [facility] of disintegrat 00:00: mouth [place] ing tablet 00 every 8 [facility] (eight) [facility] hours as needed for Nausea and Vomiting (N/V). ondansetron 2-0 Yes [id number] 4mg Take 1 [facility] 4 mg 8-21 tablet by [facility] of disintegrat 00:00: mouth [place] ing tablet 00 every 8 [facility] (eight) Branch hours as needed for Nausea and Vomiting (N/V). ondansetron 2-0 Yes [id number] 4mg Take 1 [facility] 4 mg 8-21 tablet by [facility] of disintegrat 00:00: mouth [place] ing tablet 00 every 8 [facility] (eight) Branch hours as needed for Nausea and Vomiting (N/V). ondansetron 2022-0 Yes [id number] 4mg Take 1 [facility] 4 mg 8-21 tablet by [facility] of disintegrat 00:00: mouth [place] ing tablet 00 every 8 [facility] (eight) Branch hours as needed for Nausea and Vomiting (N/V). ondansetron 2-0 Yes [id number] 4mg Take 1 [facility] 4 mg 8-21 tablet by [facility] of disintegrat 00:00: mouth [place] ing tablet 00 every 8 [facility] (eight) Branch hours as needed for Nausea and Vomiting (N/V). ondansetron 2022-0 Yes [id number] 4mg Take 1 [facility] 4 mg 8-21 tablet by [facility] of disintegrat 00:00: mouth [place] ing tablet 00 every 8 [facility] (eight) Branch hours as needed for Nausea and Vomiting (N/V). ondansetron 2022-0 Yes [id number] 4mg Take 1 [facility] 4 mg 8-21 tablet by [facility] of disintegrat 00:00: mouth [place] ing tablet 00 every 8 [facility] (eight) Branch hours as needed for Nausea and Vomiting (N/V). ondansetron 2-0 Yes [id number] 4mg Take 1 [facility] 4 mg 8-21 tablet by [facility] of disintegrat 00:00: mouth [place] ing tablet 00 every 8 [facility] (eight) Branch hours as needed for Nausea and Vomiting (N/V). ondansetron 2-0 Yes [id number] 4mg Take 1 [facility] 4 mg 8-21 tablet by [facility] of disintegrat 00:00: mouth [place] ing tablet 00 every 8 [facility] (eight) Branch hours as needed for Nausea and Vomiting (N/V). ondansetron 2-0 Yes [id number] 4mg Take 1 [facility] 4 mg 8-21 tablet by [facility] of disintegrat 00:00: mouth [place] ing tablet 00 every 8 [facility] (eight) Branch hours as needed for Nausea and Vomiting (N/V). ondansetron 2022-0 Yes [id number] 4mg Take 1 [facility] 4 mg 8-21 tablet by [facility]y of disintegrat 00:00: mouth [place] ing tablet 00 every 8 [facility] (eight) Branch hours as needed for Nausea and Vomiting (N/V). ondansetron 2022-0 Yes [id number] 4mg Take 1 [facility] 4 mg 8-21 tablet by ity of disintegrat 00:00: mouth [place] ing tablet 00 every 8 [facility] (eight) Branch hours as needed for Nausea and Vomiting (N/V). ondansetron 2022-0 Yes [id number] 4mg Take 1 [facility] 4 mg 8-21 tablet by [facility]y of disintegrat 00:00: mouth [place] ing tablet 00 every 8 [facility] (eight) Branch hours as needed for Nausea and Vomiting (N/V). ondansetron 2022-0 Yes [id number] 4mg Take 1 [facility] 4 mg 8-21 tablet by ity of disintegrat 00:00: mouth [place] ing tablet 00 every 8 [facility] (eight) Branch hours as needed for Nausea and Vomiting (N/V). ondansetron 2022-0 Yes [id number] 4mg Take 1 [facility] 4 mg 8-21 tablet by ity of disintegrat 00:00: mouth [place] ing tablet 00 every 8 [facility] (eight) Branch hours as needed for Nausea and Vomiting (N/V). ondansetron 2022-0 Yes [id number] 4mg Take 1 [facility] 4 mg 8-21 tablet by ity of disintegrat 00:00: mouth [place] ing tablet 00 every 8 [facility] (eight) Branch hours as needed for Nausea and Vomiting (N/V). ondansetron 2022-0 Yes [id number] 4mg Take 1 [facility] 4 mg 8-21 tablet by ity of disintegrat 00:00: mouth [place] ing tablet 00 every 8 [facility] (eight) Branch hours as needed for Nausea and Vomiting (N/V). ondansetron 2022-0 Yes [id number] 4mg Take 1 [facility] 4 mg 8-21 tablet by ity of disintegrat 00:00: mouth [place] ing tablet 00 every 8 [facility] (eight) Branch hours as needed for Nausea and Vomiting (N/V). ondansetron 2022-0 Yes [id number] 4mg Take 1 [facility] 4 mg 8-21 tablet by [facility]y of disintegrat 00:00: mouth [place] ing tablet 00 every 8 [facility] (eight) Branch hours as needed for Nausea and Vomiting (N/V). ondansetron 2022-0 Yes [id number] 4mg Take 1 [facility] 4 mg 8-21 tablet by ity of disintegrat 00:00: mouth [place] ing tablet 00 every 8 [facility] (eight) Branch hours as needed for Nausea and Vomiting (N/V). ondansetron 2022-0 Yes [id number] 4mg Take 1 [facility] 4 mg 8-21 tablet by [facility]y of disintegrat 00:00: mouth [place] ing tablet 00 every 8 [facility] (eight) Branch hours as needed for Nausea and Vomiting (N/V). ondansetron 2022-0 Yes [id number] 4mg Take 1 [facility] 4 mg 8-21 tablet by ity of disintegrat 00:00: mouth [place] ing tablet 00 every 8 [facility] (eight) Branch hours as needed for Nausea and Vomiting (N/V). ondansetron 2-0 Yes [id number] 4mg Take 1 [facility] 4 mg 8-21 tablet by ity of disintegrat 00:00: mouth [place] ing tablet 00 every 8 [facility] (eight) Branch hours as needed for Nausea and Vomiting (N/V). ondansetron 2-0 Yes [id number] 4mg Take 1 [facility] 4 mg 8-21 tablet by ity of disintegrat 00:00: mouth [place] ing tablet 00 every 8 [facility] (eight) Branch hours as needed for Nausea and Vomiting (N/V). ondansetron 2-0 Yes [id number] 4mg Take 1 [facility] 4 mg 8-21 tablet by ity of disintegrat 00:00: mouth [place] ing tablet 00 every 8 [facility] (eight) Branch hours as needed for Nausea and Vomiting (N/V). ondansetron 2-0 Yes [id number] 4mg Take 1 [facility] 4 mg 8-21 tablet by ity of disintegrat 00:00: mouth [place] ing tablet 00 every 8 [facility] (eight) Branch hours as needed for Nausea and Vomiting (N/V). ondansetron 2-0 Yes [id number] 4mg Take 1 [facility] 4 mg 8-21 tablet by ity of disintegrat 00:00: mouth [place] ing tablet 00 every 8 [facility] (eight) Branch hours as needed for Nausea and Vomiting (N/V). ondansetron 2-0 Yes [id number] 4mg Take 1 [facility] 4 mg 8-21 tablet by ity of disintegrat 00:00: mouth [place] ing tablet 00 every 8 [facility] (eight) Branch hours as needed for Nausea and Vomiting (N/V). ondansetron 2022-0 Yes [id number] 4mg Take 1 [facility] 4 mg 8-21 tablet by ity of disintegrat 00:00: mouth [place] ing tablet 00 every 8 [facility] (eight) Branch hours as needed for Nausea and Vomiting (N/V). ondansetron 2-0 Yes [id number] 4mg Take 1 [facility] 4 mg 8-21 tablet by ity of disintegrat 00:00: mouth [place] ing tablet 00 every 8 [facility] (eight) Branch hours as needed for Nausea and Vomiting (N/V). ondansetron 2-0 Yes [id number] 4mg Take 1 [facility] 4 mg 8-21 tablet by ity of disintegrat 00:00: mouth [place] ing tablet 00 every 8 [facility] (eight) Branch hours as needed for Nausea and Vomiting (N/V). ondansetron 2-0 Yes [id number] 4mg Take 1 [facility] 4 mg 8-21 tablet by ity of disintegrat 00:00: mouth [place] ing tablet 00 every 8 [facility] (eight) Branch hours as needed for Nausea and Vomiting (N/V). ondansetron 2-0 Yes [id number] 4mg Take 1 [facility] 4 mg 8-21 tablet by ity of disintegrat 00:00: mouth [place] ing tablet 00 every 8 [facility] (eight) Branch hours as needed for Nausea and Vomiting (N/V). ondansetron 2-0 Yes [id number] 4mg Take 1 [facility] 4 mg 8-21 tablet by ity of disintegrat 00:00: mouth [place] ing tablet 00 every 8 [facility] (eight) Branch hours as needed for Nausea and Vomiting (N/V). ondansetron 2021-0 Yes [id number] 4mg Take 1 [facility] 4 mg 8-21 tablet by ity of disintegrat 00:00: mouth [place] ing tablet 00 every 8 [facility] (eight) Branch hours as needed for Nausea and Vomiting (N/V). ondansetron 2-0 Yes [id number] 4mg Take 1 [facility] 4 mg 8-21 tablet by ity of disintegrat 00:00: mouth [place] ing tablet 00 every 8 [facility] (eight) Branch hours as needed for Nausea and Vomiting (N/V). Metformin 2-0 Yes 500mg Take 1 [facility] HCl 500 MG 7-11 tablet [place] oral Tablet 00:00: (500 mg - 00 total) by [facility] mouth l daily gabapentin 2022-0 Yes [id number] TAKE 4 [facility] 300 mg 7-11 CAPSULES ity of capsule 00:00: BY MOUTH [place] 00 IN THE Medical MORNING Branch FOR PAIN AND 3 CAPSULES BY MOUTH AT NOON AND 3 CAPSULES BY MOUTH AT NIGHT FOR PAIN AND SLEEP. gabapentin 2022-0 Yes [id number] TAKE 4 [facility] 300 mg 7-11 CAPSULES ity of capsule 00:00: BY MOUTH [place] 00 IN THE Medical MORNING Branch FOR PAIN AND 3 CAPSULES BY MOUTH AT NOON AND 3 CAPSULES BY MOUTH AT NIGHT FOR PAIN AND SLEEP. gabapentin 202-0 Yes [id number] TAKE 4 [facility] 300 mg 7-11 CAPSULES ity of capsule 00:00: BY MOUTH [place] 00 IN THE Medical MORNING Branch FOR PAIN AND 3 CAPSULES BY MOUTH AT NOON AND 3 CAPSULES BY MOUTH AT NIGHT FOR PAIN AND SLEEP. gabapentin 202-0 Yes [id number] TAKE 4 [facility] 300 mg 7-11 CAPSULES ity of capsule 00:00: BY MOUTH [place] 00 IN THE Medical MORNING Branch FOR PAIN AND 3 CAPSULES BY MOUTH AT NOON AND 3 CAPSULES BY MOUTH AT NIGHT FOR PAIN AND SLEEP. gabapentin 202-0 Yes [id number] TAKE 4 [facility] 300 mg 7-11 CAPSULES ity of capsule 00:00: BY MOUTH [place] 00 IN THE Medical MORNING Branch FOR PAIN AND 3 CAPSULES BY MOUTH AT NOON AND 3 CAPSULES BY MOUTH AT NIGHT FOR PAIN AND SLEEP. gabapentin 2021-0 Yes [id number] TAKE 4 [facility] 300 mg 7-11 CAPSULES ity of capsule 00:00: BY MOUTH [place] 00 IN THE Medical MORNING Branch FOR PAIN AND 3 CAPSULES BY MOUTH AT NOON AND 3 CAPSULES BY MOUTH AT NIGHT FOR PAIN AND SLEEP. gabapentin 2022-0 Yes [id number] TAKE 4 [facility] 300 mg 7-11 CAPSULES ity of capsule 00:00: BY MOUTH [place] 00 IN THE Medical MORNING Branch FOR PAIN AND 3 CAPSULES BY MOUTH AT NOON AND 3 CAPSULES BY MOUTH AT NIGHT FOR PAIN AND SLEEP. gabapentin 2022-0 Yes [id number] TAKE 4 [facility] 300 mg 7-11 CAPSULES ity of capsule 00:00: BY MOUTH [place] 00 IN THE Medical MORNING Branch FOR PAIN AND 3 CAPSULES BY MOUTH AT NOON AND 3 CAPSULES BY MOUTH AT NIGHT FOR PAIN AND SLEEP. gabapentin 2022-0 Yes [id number] TAKE 4 [facility] 300 mg 7-11 CAPSULES ity of capsule 00:00: BY MOUTH [place] 00 IN THE Medical MORNING Branch FOR PAIN AND 3 CAPSULES BY MOUTH AT NOON AND 3 CAPSULES BY MOUTH AT NIGHT FOR PAIN AND SLEEP. gabapentin 2022-0 Yes [id number] TAKE 4 [facility] 300 mg 7-11 CAPSULES ity of capsule 00:00: BY MOUTH [place] 00 IN THE Medical MORNING Branch FOR PAIN AND 3 CAPSULES BY MOUTH AT NOON AND 3 CAPSULES BY MOUTH AT NIGHT FOR PAIN AND SLEEP. gabapentin 2022-0 Yes [id number] TAKE 4 [facility] 300 mg 7-11 CAPSULES ity of capsule 00:00: BY MOUTH [place] 00 IN THE Medical MORNING Branch FOR PAIN AND 3 CAPSULES BY MOUTH AT NOON AND 3 CAPSULES BY MOUTH AT NIGHT FOR PAIN AND SLEEP. gabapentin 2022-0 Yes [id number] TAKE 4 [facility] 300 mg 7-11 CAPSULES ity of capsule 00:00: BY MOUTH [place] 00 IN THE Medical MORNING Branch FOR PAIN AND 3 CAPSULES BY MOUTH AT NOON AND 3 CAPSULES BY MOUTH AT NIGHT FOR PAIN AND SLEEP. gabapentin 2022-0 Yes [id number] TAKE 4 [facility] 300 mg 7-11 CAPSULES ity of capsule 00:00: BY MOUTH [place] 00 IN THE Medical MORNING Branch FOR PAIN AND 3 CAPSULES BY MOUTH AT NOON AND 3 CAPSULES BY MOUTH AT NIGHT FOR PAIN AND SLEEP. gabapentin 2022-0 Yes [id number] TAKE 4 [facility] 300 mg 7-11 CAPSULES ity of capsule 00:00: BY MOUTH [place] 00 IN THE Medical MORNING Branch FOR PAIN AND 3 CAPSULES BY MOUTH AT NOON AND 3 CAPSULES BY MOUTH AT NIGHT FOR PAIN AND SLEEP. gabapentin 2022-0 Yes [id number] TAKE 4 [facility] 300 mg 7-11 CAPSULES ity of capsule 00:00: BY MOUTH [place] 00 IN THE Medical MORNING Branch FOR PAIN AND 3 CAPSULES BY MOUTH AT NOON AND 3 CAPSULES BY MOUTH AT NIGHT FOR PAIN AND SLEEP. gabapentin 2022-0 Yes [id number] TAKE 4 [facility] 300 mg 7-11 CAPSULES ity of capsule 00:00: BY MOUTH [place] 00 IN THE Medical MORNING Branch FOR PAIN AND 3 CAPSULES BY MOUTH AT NOON AND 3 CAPSULES BY MOUTH AT NIGHT FOR PAIN AND SLEEP. gabapentin 2022-0 Yes [id number] TAKE 4 [facility] 300 mg 7-11 CAPSULES ity of capsule 00:00: BY MOUTH [place] 00 IN THE Medical MORNING Branch FOR PAIN AND 3 CAPSULES BY MOUTH AT NOON AND 3 CAPSULES BY MOUTH AT NIGHT FOR PAIN AND SLEEP. gabapentin 2022-0 Yes [id number] TAKE 4 [facility] 300 mg 7-11 CAPSULES ity of capsule 00:00: BY MOUTH [place] 00 IN THE Medical MORNING Branch FOR PAIN AND 3 CAPSULES BY MOUTH AT NOON AND 3 CAPSULES BY MOUTH AT NIGHT FOR PAIN AND SLEEP. gabapentin 2022-0 Yes [id number] TAKE 4 [facility] 300 mg 7-11 CAPSULES ity of capsule 00:00: BY MOUTH [place] 00 IN THE Medical MORNING Branch FOR PAIN AND 3 CAPSULES BY MOUTH AT NOON AND 3 CAPSULES BY MOUTH AT NIGHT FOR PAIN AND SLEEP. gabapentin 2022-0 Yes [id number] TAKE 4 [facility] 300 mg 7-11 CAPSULES ity of capsule 00:00: BY MOUTH [place] 00 IN THE Medical MORNING Branch FOR PAIN AND 3 CAPSULES BY MOUTH AT NOON AND 3 CAPSULES BY MOUTH AT NIGHT FOR PAIN AND SLEEP. gabapentin 2022-0 Yes [id number] TAKE 4 [facility] 300 mg 7-11 CAPSULES ity of capsule 00:00: BY MOUTH [place] 00 IN THE Medical MORNING Branch FOR PAIN AND 3 CAPSULES BY MOUTH AT NOON AND 3 CAPSULES BY MOUTH AT NIGHT FOR PAIN AND SLEEP. gabapentin 2022-0 Yes [id number] TAKE 4 [facility] 300 mg 7-11 CAPSULES ity of capsule 00:00: BY MOUTH [place] 00 IN THE [facility] MORNING Branch FOR PAIN AND 3 CAPSULES BY MOUTH AT NOON AND 3 CAPSULES BY MOUTH AT NIGHT FOR PAIN AND SLEEP. gabapentin 2022-0 Yes [id number] TAKE 4 [facility] 300 mg 7-11 CAPSULES ity of capsule 00:00: BY MOUTH [place] 00 IN THE Medical MORNING Branch FOR PAIN AND 3 CAPSULES BY MOUTH AT NOON AND 3 CAPSULES BY MOUTH AT NIGHT FOR PAIN AND SLEEP. gabapentin 2022-0 Yes [id number] TAKE 4 [facility] 300 mg 7-11 CAPSULES ity of capsule 00:00: BY MOUTH [place] 00 IN THE Medical MORNING Branch FOR PAIN AND 3 CAPSULES BY MOUTH AT NOON AND 3 CAPSULES BY MOUTH AT NIGHT FOR PAIN AND SLEEP. gabapentin 2022-0 Yes [id number] TAKE 4 [facility] 300 mg 7-11 CAPSULES ity of capsule 00:00: BY MOUTH [place] 00 IN THE Medical MORNING Branch FOR PAIN AND 3 CAPSULES BY MOUTH AT NOON AND 3 CAPSULES BY MOUTH AT NIGHT FOR PAIN AND SLEEP. gabapentin 2022-0 Yes [id number] TAKE 4 [facility] 300 mg 7-11 CAPSULES ity of capsule 00:00: BY MOUTH [place] 00 IN THE Medical MORNING Branch FOR PAIN AND 3 CAPSULES BY MOUTH AT NOON AND 3 CAPSULES BY MOUTH AT NIGHT FOR PAIN AND SLEEP. gabapentin 2022-0 Yes [id number] TAKE 4 [facility] 300 mg 7-11 CAPSULES ity of capsule 00:00: BY MOUTH IN THE Medical MORNING Branch FOR PAIN AND 3 CAPSULES BY MOUTH AT NOON AND 3 CAPSULES BY MOUTH AT NIGHT FOR PAIN AND SLEEP. gabapentin 2022-0 Yes [id number] TAKE 4 [facility] 300 mg 7-11 CAPSULES ity of capsule 00:00: BY MOUTH IN THE Medical MORNING Branch FOR PAIN AND 3 CAPSULES BY MOUTH AT NOON AND 3 CAPSULES BY MOUTH AT NIGHT FOR PAIN AND SLEEP. lisinopriL 2022-0 Yes 10mg Take 10 mg [facility] nivers 10 mg 7-11 by mouth ity of tablet 00:00: daily. [place] [facility] metFORMIN 2022-0 Yes 500mg Take 500 [facility] vers 500 mg 7-11 mg by ity of tablet 00:00: mouth daily. Medical Branch gabapentin 2022-0 Yes [id number] TAKE 4 [facility] 300 mg 7-11 CAPSULES ity of capsule 00:00: BY MOUTH IN THE Medical MORNING Branch FOR PAIN AND 3 CAPSULES BY MOUTH AT NOON AND 3 CAPSULES BY MOUTH AT NIGHT FOR PAIN AND SLEEP. lisinopriL 2022-0 Yes 10mg Take 10 mg [facility] nivers 10 mg 7-11 by mouth ity of tablet 00:00: daily. [place] [facility] metFORMIN 2022-0 Yes 500mg Take 500 [facility] vers 500 mg 7-11 mg by ity of tablet 00:00: mouth daily. Medical Branch gabapentin 2022-0 Yes [id number] TAKE 4 [facility] 300 mg 7-11 CAPSULES ity of capsule 00:00: BY MOUTH IN THE Medical MORNING Branch FOR PAIN AND 3 CAPSULES BY MOUTH AT NOON AND 3 CAPSULES BY MOUTH AT NIGHT FOR PAIN AND SLEEP. lisinopriL 2022-0 Yes 10mg Take 10 mg [facility] nivers 10 mg 7-11 by mouth ity of tablet 00:00: daily. [place] [facility] metFORMIN 2022-0 Yes 500mg Take 500 [facility] vers 500 mg 7-11 mg by ity of tablet 00:00: mouth daily. Medical Branch gabapentin 2022-0 Yes [id number] TAKE 4 [facility] 300 mg 7-11 CAPSULES ity of capsule 00:00: BY MOUTH IN THE Medical MORNING Branch FOR PAIN AND 3 CAPSULES BY MOUTH AT NOON AND 3 CAPSULES BY MOUTH AT NIGHT FOR PAIN AND SLEEP. metFORMIN 2022-0 Yes 500mg Take 500 [facility] vers 500 mg 7-11 mg by ity of tablet 00:00: mouth [place] 00 daily. Medical Branch gabapentin 2022-0 Yes [id number] TAKE 4 [facility] 300 mg 7-11 CAPSULES ity of capsule 00:00: BY MOUTH [place] 00 IN THE Medical MORNING Branch FOR PAIN AND 3 CAPSULES BY MOUTH AT NOON AND 3 CAPSULES BY MOUTH AT NIGHT FOR PAIN AND SLEEP. metFORMIN 2022-0 Yes 500mg Take 500 [facility] vers 500 mg 7-11 mg by ity of tablet 00:00: mouth [place] 00 daily. Medical Branch gabapentin 2022-0 Yes [id number] TAKE 4 [facility] 300 mg 7-11 CAPSULES ity of capsule 00:00: BY MOUTH [place] 00 IN THE Medical MORNING Branch FOR PAIN AND 3 CAPSULES BY MOUTH AT NOON AND 3 CAPSULES BY MOUTH AT NIGHT FOR PAIN AND SLEEP. gabapentin 2-0 Yes [id number] TAKE 4 [facility] 300 mg 7-11 CAPSULES ity of capsule 00:00: BY MOUTH [place] 00 IN THE Medical MORNING Branch FOR PAIN AND 3 CAPSULES BY MOUTH AT NOON AND 3 CAPSULES BY MOUTH AT NIGHT FOR PAIN AND SLEEP. gabapentin 2022-0 Yes [id number] TAKE 4 [facility] 300 mg 7-11 CAPSULES ity of capsule 00:00: BY MOUTH [place] 00 IN THE Medical MORNING Branch FOR PAIN AND 3 CAPSULES BY MOUTH AT NOON AND 3 CAPSULES BY MOUTH AT NIGHT FOR PAIN AND SLEEP. metFORMIN 2-0 Yes 500mg Take 500 [facility] vers 500 mg 7-11 mg by ity of tablet 00:00: mouth [place] 00 daily. Medical Branch gabapentin 2022-0 Yes [id number] TAKE 4 [facility] 300 mg 7-11 CAPSULES ity of capsule 00:00: BY MOUTH [place] 00 IN THE Medical MORNING Branch FOR PAIN AND 3 CAPSULES BY MOUTH AT NOON AND 3 CAPSULES BY MOUTH AT NIGHT FOR PAIN AND SLEEP. gabapentin 2022-0 Yes [id number] TAKE 4 [facility] 300 mg 7-11 CAPSULES ity of capsule 00:00: BY MOUTH [place] 00 IN THE Medical MORNING Branch FOR PAIN AND 3 CAPSULES BY MOUTH AT NOON AND 3 CAPSULES BY MOUTH AT NIGHT FOR PAIN AND SLEEP. metFORMIN 2022-0 Yes 500mg Take 500 [facility] vers 500 mg 7-11 mg by ity of tablet 00:00: mouth [place] 00 daily. Medical Branch gabapentin 2022-0 Yes [id number] TAKE 4 [facility] 300 mg 7-11 CAPSULES ity of capsule 00:00: BY MOUTH [place] 00 IN THE Medical MORNING Branch FOR PAIN AND 3 CAPSULES BY MOUTH AT NOON AND 3 CAPSULES BY MOUTH AT NIGHT FOR PAIN AND SLEEP. metFORMIN 2022-0 Yes 500mg Take 500 [facility] vers 500 mg 7-11 mg by ity of tablet 00:00: mouth [place] 00 daily. Medical Branch gabapentin 2022-0 Yes [id number] TAKE 4 [facility] 300 mg 7-11 CAPSULES ity of capsule 00:00: BY MOUTH [place] 00 IN THE Medical MORNING Branch FOR PAIN AND 3 CAPSULES BY MOUTH AT NOON AND 3 CAPSULES BY MOUTH AT NIGHT FOR PAIN AND SLEEP. metFORMIN 2022-0 Yes 500mg Take 500 [facility] vers 500 mg 7-11 mg by ity of tablet 00:00: mouth [place] 00 daily. Medical Branch gabapentin 2022-0 Yes [id number] TAKE 4 [facility] 300 mg 7-11 CAPSULES ity of capsule 00:00: BY MOUTH [place] 00 IN THE Medical MORNING Branch FOR PAIN AND 3 CAPSULES BY MOUTH AT NOON AND 3 CAPSULES BY MOUTH AT NIGHT FOR PAIN AND SLEEP. metFORMIN 2022-0 Yes 500mg Take 500 [facility] vers 500 mg 7-11 mg by ity of tablet 00:00: mouth [place] 00 daily. [facility] Branch gabapentin 2-0 Yes [id number] TAKE 4 [facility] 300 mg 7-11 CAPSULES ity of capsule 00:00: BY MOUTH [place] 00 IN THE Medical MORNING Branch FOR PAIN AND 3 CAPSULES BY MOUTH AT NOON AND 3 CAPSULES BY MOUTH AT NIGHT FOR PAIN AND SLEEP. metFORMIN 2022-0 Yes 500mg Take 500 [facility] vers 500 mg 7-11 mg by ity of tablet 00:00: mouth [place] 00 daily. [facility] Branch gabapentin 2022-0 Yes [id number] TAKE 4 [facility] 300 mg 7-11 CAPSULES ity of capsule 00:00: BY MOUTH [place] 00 IN THE Medical MORNING Branch FOR PAIN AND 3 CAPSULES BY MOUTH AT NOON AND 3 CAPSULES BY MOUTH AT NIGHT FOR PAIN AND SLEEP. metFORMIN 2022-0 Yes 500mg Take 500 [facility] vers 500 mg 7-11 mg by ity of tablet 00:00: mouth [place] 00 daily. [facility] Branch gabapentin 2022-0 Yes [id number] TAKE 4 [facility] 300 mg 7-11 CAPSULES ity of capsule 00:00: BY MOUTH [place] 00 IN THE Medical MORNING Branch FOR PAIN AND 3 CAPSULES BY MOUTH AT NOON AND 3 CAPSULES BY MOUTH AT NIGHT FOR PAIN AND SLEEP. metFORMIN 2022-0 Yes 500mg Take 500 [facility] vers 500 mg 7-11 mg by ity of tablet 00:00: mouth [place] 00 daily. Medical Branch gabapentin 2022-0 Yes [id number] TAKE 4 [facility] 300 mg 7-11 CAPSULES ity of capsule 00:00: BY MOUTH [place] 00 IN THE Medical MORNING Branch FOR PAIN AND 3 CAPSULES BY MOUTH AT NOON AND 3 CAPSULES BY MOUTH AT NIGHT FOR PAIN AND SLEEP. metFORMIN 2022-0 Yes 500mg Take 500 [facility] vers 500 mg 7-11 mg by ity of tablet 00:00: mouth [place] 00 daily. Medical Branch gabapentin 2022-0 Yes [id number] TAKE 4 [facility] 300 mg 7-11 CAPSULES ity of capsule 00:00: BY MOUTH [place] 00 IN THE Medical MORNING Branch FOR PAIN AND 3 CAPSULES BY MOUTH AT NOON AND 3 CAPSULES BY MOUTH AT NIGHT FOR PAIN AND SLEEP. metFORMIN 2-0 Yes 500mg Take 500 [facility] vers 500 mg 7-11 mg by ity of tablet 00:00: mouth [place] 00 daily. [facility] gabapentin 2-0 Yes [id number] TAKE 4 [facility] 300 mg 7-11 CAPSULES ity of capsule 00:00: BY MOUTH [place] 00 IN THE Medical MORNING Branch FOR PAIN AND 3 CAPSULES BY MOUTH AT NOON AND 3 CAPSULES BY MOUTH AT NIGHT FOR PAIN AND SLEEP. metFORMIN 2-0 Yes 500mg Take 500 [facility] vers 500 mg 7-11 mg by ity of tablet 00:00: mouth [place] 00 daily. Medical Branch gabapentin 2-0 Yes [id number] TAKE 4 [facility] 300 mg 7-11 CAPSULES ity of capsule 00:00: BY MOUTH [place] 00 IN THE Medical MORNING Branch FOR PAIN AND 3 CAPSULES BY MOUTH AT NOON AND 3 CAPSULES BY MOUTH AT NIGHT FOR PAIN AND SLEEP. metFORMIN 2022-0 Yes 500mg Take 500 [facility] vers 500 mg 7-11 mg by ity of tablet 00:00: mouth [place] 00 daily. Medical Branch gabapentin 2022-0 Yes [id number] TAKE 4 [facility] 300 mg 7-11 CAPSULES ity of capsule 00:00: BY MOUTH [place] 00 IN THE Medical MORNING Branch FOR PAIN AND 3 CAPSULES BY MOUTH AT NOON AND 3 CAPSULES BY MOUTH AT NIGHT FOR PAIN AND SLEEP. metFORMIN 2022-0 Yes 500mg Take 500 [facility] vers 500 mg 7-11 mg by ity of tablet 00:00: mouth [place] 00 daily. Medical Branch gabapentin 2022-0 Yes [id number] TAKE 4 [facility] 300 mg 7-11 CAPSULES ity of capsule 00:00: BY MOUTH [place] 00 IN THE Medical MORNING Branch FOR PAIN AND 3 CAPSULES BY MOUTH AT NOON AND 3 CAPSULES BY MOUTH AT NIGHT FOR PAIN AND SLEEP. metFORMIN 2022-0 Yes 500mg Take 500 [facility] vers 500 mg 7-11 mg by ity of tablet 00:00: mouth [place] 00 daily. Medical Branch gabapentin 2022-0 Yes [id number] TAKE 4 [facility] 300 mg 7-11 CAPSULES ity of capsule 00:00: BY MOUTH [place] 00 IN THE Medical MORNING Branch FOR PAIN AND 3 CAPSULES BY MOUTH AT NOON AND 3 CAPSULES BY MOUTH AT NIGHT FOR PAIN AND SLEEP. metFORMIN 2022-0 Yes 500mg Take 500 [facility] vers 500 mg 7-11 mg by ity of tablet 00:00: mouth [place] 00 daily. Medical Branch gabapentin 2022-0 Yes [id number] TAKE 4 [facility] 300 mg 7-11 CAPSULES ity of capsule 00:00: BY MOUTH [place] 00 IN THE Medical MORNING Branch FOR PAIN AND 3 CAPSULES BY MOUTH AT NOON AND 3 CAPSULES BY MOUTH AT NIGHT FOR PAIN AND SLEEP. metFORMIN 2022-0 Yes 500mg Take 500 [facility] vers 500 mg 7-11 mg by ity of tablet 00:00: mouth [place] 00 daily. Medical Branch gabapentin 2022-0 Yes [id number] TAKE 4 [facility] 300 mg 7-11 CAPSULES ity of capsule 00:00: BY MOUTH [place] 00 IN THE Medical MORNING Branch FOR PAIN AND 3 CAPSULES BY MOUTH AT NOON AND 3 CAPSULES BY MOUTH AT NIGHT FOR PAIN AND SLEEP. metFORMIN 2022-0 Yes 500mg Take 500 [facility] vers 500 mg 7-11 mg by ity of tablet 00:00: mouth [place] 00 daily. Medical Branch gabapentin 2022-0 Yes [id number] TAKE 4 [facility] 300 mg 7-11 CAPSULES ity of capsule 00:00: BY MOUTH [place] 00 IN THE Medical MORNING Branch FOR PAIN AND 3 CAPSULES BY MOUTH AT NOON AND 3 CAPSULES BY MOUTH AT NIGHT FOR PAIN AND SLEEP. metFORMIN 2022-0 Yes 500mg Take 500 [facility] vers 500 mg 7-11 mg by ity of tablet 00:00: mouth [place] 00 daily. Medical Branch gabapentin 2022-0 Yes [id number] TAKE 4 [facility] 300 mg 7-11 CAPSULES ity of capsule 00:00: BY MOUTH [place] 00 IN THE Medical MORNING Branch FOR PAIN AND 3 CAPSULES BY MOUTH AT NOON AND 3 CAPSULES BY MOUTH AT NIGHT FOR PAIN AND SLEEP. metFORMIN 2022-0 Yes 500mg Take 500 [facility] vers 500 mg 7-11 mg by ity of tablet 00:00: mouth [place] 00 daily. Medical Branch gabapentin 2022-0 Yes [id number] TAKE 4 [facility] 300 mg 7-11 CAPSULES ity of capsule 00:00: BY MOUTH [place] 00 IN THE Medical MORNING Branch FOR PAIN AND 3 CAPSULES BY MOUTH AT NOON AND 3 CAPSULES BY MOUTH AT NIGHT FOR PAIN AND SLEEP. metFORMIN 2022-0 Yes 500mg Take 500 [facility] vers 500 mg 7-11 mg by ity of tablet 00:00: mouth [place] 00 daily. Medical Branch gabapentin 2022-0 Yes [id number] TAKE 4 [facility] 300 mg 7-11 CAPSULES ity of capsule 00:00: BY MOUTH [place] 00 IN THE Medical MORNING Branch FOR PAIN AND 3 CAPSULES BY MOUTH AT NOON AND 3 CAPSULES BY MOUTH AT NIGHT FOR PAIN AND SLEEP. metFORMIN 2022-0 Yes 500mg Take 500 [facility] vers 500 mg 7-11 mg by ity of tablet 00:00: mouth [place] 00 daily. Medical Branch gabapentin 2022-0 Yes [id number] TAKE 4 [facility] 300 mg 7-11 CAPSULES ity of capsule 00:00: BY MOUTH [place] 00 IN THE Medical MORNING Branch FOR PAIN AND 3 CAPSULES BY MOUTH AT NOON AND 3 CAPSULES BY MOUTH AT NIGHT FOR PAIN AND SLEEP. metFORMIN 2022-0 Yes 500mg Take 500 [facility] vers 500 mg 7-11 mg by ity of tablet 00:00: mouth [place] 00 daily. Medical Branch gabapentin 2022-0 Yes [id number] TAKE 4 [facility] 300 mg 7-11 CAPSULES ity of capsule 00:00: BY MOUTH [place] 00 IN THE Medical MORNING Branch FOR PAIN AND 3 CAPSULES BY MOUTH AT NOON AND 3 CAPSULES BY MOUTH AT NIGHT FOR PAIN AND SLEEP. metFORMIN 2022-0 Yes 500mg Take 500 [facility] vers 500 mg 7-11 mg by ity of tablet 00:00: mouth [place] 00 daily. Medical Branch gabapentin 2022-0 Yes [id number] TAKE 4 [facility] 300 mg 7-11 CAPSULES ity of capsule 00:00: BY MOUTH [place] 00 IN THE Medical MORNING Branch FOR PAIN AND 3 CAPSULES BY MOUTH AT NOON AND 3 CAPSULES BY MOUTH AT NIGHT FOR PAIN AND SLEEP. metFORMIN 2022-0 Yes 500mg Take 500 [facility] vers 500 mg 7-11 mg by ity of tablet 00:00: mouth [place] 00 daily. Medical Branch gabapentin 2022-0 Yes [id number] TAKE 4 [facility] 300 mg 7-11 CAPSULES ity of capsule 00:00: BY MOUTH [place] 00 IN THE Medical MORNING Branch FOR PAIN AND 3 CAPSULES BY MOUTH AT NOON AND 3 CAPSULES BY MOUTH AT NIGHT FOR PAIN AND SLEEP. metFORMIN 2022-0 Yes 500mg Take 500 [facility] vers 500 mg 7-11 mg by ity of tablet 00:00: mouth [place] 00 daily. Medical Branch gabapentin 2022-0 Yes [id number] TAKE 4 [facility] 300 mg 7-11 CAPSULES ity of capsule 00:00: BY MOUTH [place] 00 IN THE Medical MORNING Branch FOR PAIN AND 3 CAPSULES BY MOUTH AT NOON AND 3 CAPSULES BY MOUTH AT NIGHT FOR PAIN AND SLEEP. metFORMIN 2022-0 Yes 500mg Take 500 [facility] vers 500 mg 7-11 mg by ity of tablet 00:00: mouth [place] 00 daily. Medical Branch gabapentin 2022-0 Yes [id number] TAKE 4 [facility] 300 mg 7-11 CAPSULES ity of capsule 00:00: BY MOUTH [place] 00 IN THE Medical MORNING Branch FOR PAIN AND 3 CAPSULES BY MOUTH AT NOON AND 3 CAPSULES BY MOUTH AT NIGHT FOR PAIN AND SLEEP. metFORMIN 2022-0 Yes 500mg Take 500 [facility] vers 500 mg 7-11 mg by ity of tablet 00:00: mouth [place] 00 daily. Medical Branch gabapentin 2022-0 Yes [id number] TAKE 4 [facility] 300 mg 7-11 CAPSULES ity of capsule 00:00: BY MOUTH [place] 00 IN THE Medical MORNING Branch FOR PAIN AND 3 CAPSULES BY MOUTH AT NOON AND 3 CAPSULES BY MOUTH AT NIGHT FOR PAIN AND SLEEP. metFORMIN 2022-0 Yes 500mg Take 500 [facility] vers 500 mg 7-11 mg by ity of tablet 00:00: mouth [place] 00 daily. Medical Branch gabapentin 2022-0 Yes [id number] TAKE 4 [facility] 300 mg 7-11 CAPSULES ity of capsule 00:00: BY MOUTH [place] 00 IN THE Medical MORNING Branch FOR PAIN AND 3 CAPSULES BY MOUTH AT NOON AND 3 CAPSULES BY MOUTH AT NIGHT FOR PAIN AND SLEEP. metFORMIN 2022-0 Yes 500mg Take 500 [facility] vers 500 mg 7-11 mg by ity of tablet 00:00: mouth [place] 00 daily. Medical Branch gabapentin 2022-0 Yes [id number] TAKE 4 [facility] 300 mg 7-11 CAPSULES ity of capsule 00:00: BY MOUTH [place] 00 IN THE Medical MORNING Branch FOR PAIN AND 3 CAPSULES BY MOUTH AT NOON AND 3 CAPSULES BY MOUTH AT NIGHT FOR PAIN AND SLEEP. metFORMIN 2022-0 Yes 500mg Take 500 [facility] vers 500 mg 7-11 mg by ity of tablet 00:00: mouth [place] 00 daily. Medical Branch gabapentin 2022-0 Yes [id number] TAKE 4 [facility] 300 mg 7-11 CAPSULES ity of capsule 00:00: BY MOUTH [place] 00 IN THE Medical MORNING Branch FOR PAIN AND 3 CAPSULES BY MOUTH AT NOON AND 3 CAPSULES BY MOUTH AT NIGHT FOR PAIN AND SLEEP. metFORMIN 2022-0 Yes 500mg Take 500 [facility] vers 500 mg 7-11 mg by ity of tablet 00:00: mouth [place] 00 daily. Medical Branch gabapentin 2022-0 Yes [id number] TAKE 4 [facility] 300 mg 7-11 CAPSULES ity of capsule 00:00: BY MOUTH [place] 00 IN THE Medical MORNING Branch FOR PAIN AND 3 CAPSULES BY MOUTH AT NOON AND 3 CAPSULES BY MOUTH AT NIGHT FOR PAIN AND SLEEP. metFORMIN 2022-0 Yes 500mg Take 500 [facility] vers 500 mg 7-11 mg by ity of tablet 00:00: mouth [place] 00 daily. Medical Branch gabapentin 2022-0 Yes [id number] TAKE 4 [facility] 300 mg 7-11 CAPSULES ity of capsule 00:00: BY MOUTH [place] 00 IN THE Medical MORNING Branch FOR PAIN AND 3 CAPSULES BY MOUTH AT NOON AND 3 CAPSULES BY MOUTH AT NIGHT FOR PAIN AND SLEEP. metFORMIN 2022-0 Yes 500mg Take 500 [facility] vers 500 mg 7-11 mg by ity of tablet 00:00: mouth [place] 00 daily. Medical Branch gabapentin 2022-0 Yes [id number] TAKE 4 [facility] 300 mg 7-11 CAPSULES ity of capsule 00:00: BY MOUTH [place] 00 IN THE Medical MORNING Branch FOR PAIN AND 3 CAPSULES BY MOUTH AT NOON AND 3 CAPSULES BY MOUTH AT NIGHT FOR PAIN AND SLEEP. metFORMIN 2022-0 Yes 500mg Take 500 [facility] vers 500 mg 7-11 mg by ity of tablet 00:00: mouth [place] 00 daily. Medical Branch gabapentin 2022-0 Yes [id number] TAKE 4 [facility] 300 mg 7-11 CAPSULES ity of capsule 00:00: BY MOUTH [place] 00 IN THE Medical MORNING Branch FOR PAIN AND 3 CAPSULES BY MOUTH AT NOON AND 3 CAPSULES BY MOUTH AT NIGHT FOR PAIN AND SLEEP. metFORMIN 2022-0 Yes 500mg Take 500 [facility] vers 500 mg 7-11 mg by ity of tablet 00:00: mouth [place] 00 daily. Medical Branch gabapentin 2022-0 Yes [id number] TAKE 4 [facility] 300 mg 7-11 CAPSULES ity of capsule 00:00: BY MOUTH [place] 00 IN THE Medical MORNING Branch FOR PAIN AND 3 CAPSULES BY MOUTH AT NOON AND 3 CAPSULES BY MOUTH AT NIGHT FOR PAIN AND SLEEP. metFORMIN 2022-0 Yes 500mg Take 500 [facility] vers 500 mg 7-11 mg by ity of tablet 00:00: mouth [place] 00 daily. Medical Branch gabapentin 2022-0 Yes [id number] TAKE 4 [facility] 300 mg 7-11 CAPSULES ity of capsule 00:00: BY MOUTH [place] 00 IN THE Medical MORNING Branch FOR PAIN AND 3 CAPSULES BY MOUTH AT NOON AND 3 CAPSULES BY MOUTH AT NIGHT FOR PAIN AND SLEEP. metFORMIN 2022-0 Yes 500mg Take 500 [facility] vers 500 mg 7-11 mg by ity of tablet 00:00: mouth [place] 00 daily. Medical Branch gabapentin 2022-0 Yes [id number] TAKE 4 [facility] 300 mg 7-11 CAPSULES ity of capsule 00:00: BY MOUTH [place] 00 IN THE Medical MORNING Branch FOR PAIN AND 3 CAPSULES BY MOUTH AT NOON AND 3 CAPSULES BY MOUTH AT NIGHT FOR PAIN AND SLEEP. metFORMIN 2-0 Yes 500mg Take 500 [facility] vers 500 mg 7-11 mg by ity of tablet 00:00: mouth [place] 00 daily. Medical Branch gabapentin 2-0 Yes [id number] TAKE 4 [facility] 300 mg 7-11 CAPSULES ity of capsule 00:00: BY MOUTH [place] 00 IN THE Medical MORNING Branch FOR PAIN AND 3 CAPSULES BY MOUTH AT NOON AND 3 CAPSULES BY MOUTH AT NIGHT FOR PAIN AND SLEEP. metFORMIN 2022-0 Yes 500mg Take 500 [facility] vers 500 mg 7-11 mg by ity of tablet 00:00: mouth [place] 00 daily. Medical Branch gabapentin 2022-0 Yes [id number] TAKE 4 [facility] 300 mg 7-11 CAPSULES ity of capsule 00:00: BY MOUTH [place] 00 IN THE Medical MORNING Branch FOR PAIN AND 3 CAPSULES BY MOUTH AT NOON AND 3 CAPSULES BY MOUTH AT NIGHT FOR PAIN AND SLEEP. metFORMIN 2022-0 Yes 500mg Take 500 [facility] vers 500 mg 7-11 mg by ity of tablet 00:00: mouth [place] 00 daily. Medical Branch gabapentin 2022-0 Yes [id number] TAKE 4 [facility] 300 mg 7-11 CAPSULES ity of capsule 00:00: BY MOUTH [place] 00 IN THE Medical MORNING Branch FOR PAIN AND 3 CAPSULES BY MOUTH AT NOON AND 3 CAPSULES BY MOUTH AT NIGHT FOR PAIN AND SLEEP. metFORMIN Yes 500mg Take 500 [facility] vers 500 mg 7-11 mg by ity of tablet 00:00: mouth [place] 00 daily. Medical Branch gabapentin Yes [id number] TAKE 4 [facility] 300 mg 7-11 CAPSULES ity of capsule 00:00: BY MOUTH [place] 00 IN THE Medical MORNING Branch FOR PAIN AND 3 CAPSULES BY MOUTH AT NOON AND 3 CAPSULES BY MOUTH AT NIGHT FOR PAIN AND SLEEP. metFORMIN 0 Yes 500mg Take 500 [facility] vers 500 mg 7-11 mg by ity of tablet 00:00: mouth [place] 00 daily. [facility] lisinopril 0 Yes [place] 10 MG 7-11 [facility] tablet 00:00: 00 metFORMIN 0 Yes [place] (Glucophage 7-11 [facility] ) 500 MG 00:00: tablet 00 lisinopril 0 Yes 10mg QD Take 10 mg [facility] 10 MG 7-11 by mouth 1 Health tablet 00:00: (one) time 00 each day. Gabapentin 2022- No TAKE 4 [facility] 300 MG oral 7-11 04-10 CAPSULES Sey bold Capsule 00:00: 00:00 BY MOUTH - 00 :00 IN THE Externa MORNING l FOR PAIN AND 3 CAPSULES BY MOUTH AT NOON AND 3 CAPSULES BY MOUTH AT NIGHT FOR PAIN AND SLEEP. metFORMIN 2022- No [place] (Glucophage 7-11 -31 [facility] ) 500 MG 00:00: 00:00 tablet 00 :00 lisinopriL 2021-0 2021- No 10mg Take 10 mg [facility] 10 mg 7-11 11-16 by mouth ity of tablet 00:00: 00:00 daily. [place] 00 :00 [facility] Branch lisinopriL 2021-0 2021- No 10mg Take 10 mg [facility] 10 mg 7-11 11-16 by mouth ity of tablet 00:00: 00:00 daily. [place] 00 :00 Medical Branch blood sugar 2021-0 Yes [id number] Check [facility] diagnostic 3-07 blood ity of strip 00:00: sugar 2 [place] 00 times a Medical day. Branch E11.9. Brand per insurance. blood sugar Yes [id number] Check [facility] diagnostic 3-07 blood ity of strip 00:00: sugar 2 [place] 00 times a Medical day. Branch E11.9. Brand per insurance. blood sugar 2021-0 Yes [id number] Check [facility] diagnostic 3-07 blood ity of strip 00:00: sugar 2 [place] 00 times a Medical day. Branch E11.9. Brand per insurance. blood sugar 2022-0 Yes [id number] Check [facility] diagnostic 3-07 blood ity of strip 00:00: sugar 2 [place] 00 times a Medical day. Branch E11.9. Brand per insurance. blood sugar 2021-0 Yes [id number] Check [facility] diagnostic 3-07 blood ity of strip 00:00: sugar 2 [place] 00 times a Medical day. Branch E11.9. Brand per insurance. blood sugar 2021-0 Yes [id number] Check [facility] diagnostic 3-07 blood ity of strip 00:00: sugar 2 [place] 00 times a Medical day. Branch E11.9. Brand per insurance. blood sugar 2021-0 Yes [id number] Check [facility] diagnostic 3-07 blood ity of strip 00:00: sugar 2 [place] 00 times a Medical day. Branch E11.9. Brand per insurance. blood sugar 2021-0 Yes [id number] Check [facility] diagnostic 3-07 blood ity of strip 00:00: sugar 2 [place] 00 times a Medical day. Branch E11.9. Brand per insurance. blood sugar 2021-0 Yes [id number] Check [facility] diagnostic 3-07 blood ity of strip 00:00: sugar 2 [place] 00 times a Medical day. Branch E11.9. Brand per insurance. blood sugar 2021-0 Yes [id number] Check [facility] diagnostic 3-07 blood ity of strip 00:00: sugar 2 [place] 00 times a Medical day. Branch E11.9. Brand per insurance. blood sugar 2021-0 Yes [id number] Check [facility] diagnostic 3-07 blood ity of strip 00:00: sugar 2 [place] 00 times a Medical day. Branch E11.9. Brand per insurance. blood sugar 2022-0 Yes [id number] Check [facility] diagnostic 3-07 blood ity of strip 00:00: sugar 2 [place] 00 times a Medical day. Branch E11.9. Brand per insurance. blood sugar 2-0 Yes [id number] Check [facility] diagnostic 3-07 blood ity of strip 00:00: sugar 2 [place] 00 times a Medical day. Branch E11.9. Brand per insurance. blood sugar 2021-0 Yes [id number] Check [facility] diagnostic 3-07 blood ity of strip 00:00: sugar 2 [place] 00 times a Medical day. Branch E11.9. Brand per insurance. blood sugar 2021-0 Yes [id number] Check [facility] diagnostic 3-07 blood ity of strip 00:00: sugar 2 [place] 00 times a Medical day. Branch E11.9. Brand per insurance. blood sugar 2021-0 Yes [id number] Check [facility] diagnostic 3-07 blood ity of strip 00:00: sugar 2 [place] 00 times a Medical day. Branch E11.9. Brand per insurance. blood sugar 2021-0 Yes [id number] Check [facility] diagnostic 3-07 blood ity of strip 00:00: sugar 2 [place] 00 times a Medical day. Branch E11.9. Brand per insurance. blood sugar 2021-0 Yes [id number] Check [facility] diagnostic 3-07 blood ity of strip 00:00: sugar 2 [place] 00 times a Medical day. Branch E11.9. Brand per insurance. blood sugar 2021-0 Yes [id number] Check [facility] diagnostic 3-07 blood ity of strip 00:00: sugar 2 [place] 00 times a Medical day. Branch E11.9. Brand per insurance. blood sugar 2021-0 Yes [id number] Check [facility] diagnostic 3-07 blood ity of strip 00:00: sugar 2 [place] 00 times a Medical day. Branch E11.9. Brand per insurance. blood sugar 2021-0 Yes [id number] Check [facility] diagnostic 3-07 blood ity of strip 00:00: sugar 2 [place] 00 times a Medical day. Branch E11.9. Brand per insurance. blood sugar 2021-0 Yes [id number] Check [facility] diagnostic 3-07 blood ity of strip 00:00: sugar 2 [place] 00 times a Medical day. Branch E11.9. Brand per insurance. blood sugar 2021-0 Yes [id number] Check [facility] diagnostic 3-07 blood ity of strip 00:00: sugar 2 [place] 00 times a Medical day. Branch E11.9. Brand per insurance. blood sugar 2021-0 Yes [id number] Check [facility] diagnostic 3-07 blood ity of strip 00:00: sugar 2 [place] 00 times a Medical day. Branch E11.9. Brand per insurance. blood sugar 2021-0 Yes [id number] Check [facility] diagnostic 3-07 blood ity of strip 00:00: sugar 2 [place] 00 times a Medical day. Branch E11.9. Brand per insurance. blood sugar 2021-0 Yes [id number] Check [facility] diagnostic 3-07 blood ity of strip 00:00: sugar 2 [place] 00 times a Medical day. Branch E11.9. Brand per insurance. blood sugar 2021-0 Yes [id number] Check [facility] diagnostic 3-07 blood ity of strip 00:00: sugar 2 [place] 00 times a Medical day. Branch E11.9. Brand per insurance. blood sugar 2021-0 Yes [id number] Check [facility] diagnostic 3-07 blood ity of strip 00:00: sugar 2 [place] 00 times a Medical day. Branch E11.9. Brand per insurance. blood sugar 2021-0 Yes [id number] Check [facility] diagnostic 3-07 blood ity of strip 00:00: sugar 2 [place] 00 times a Medical day. Branch E11.9. Brand per insurance. blood sugar 2021-0 Yes [id number] Check [facility] diagnostic 3-07 blood ity of strip 00:00: sugar 2 [place] 00 times a Medical day. Branch E11.9. Brand per insurance. blood sugar 2021-0 Yes [id number] Check [facility] diagnostic 3-07 blood ity of strip 00:00: sugar 2 [place] 00 times a Medical day. Branch E11.9. Brand per insurance. blood sugar 2021-0 Yes [id number] Check [facility] diagnostic 3-07 blood ity of strip 00:00: sugar 2 [place] 00 times a Medical day. Branch E11.9. Brand per insurance. blood sugar 2021-0 Yes [id number] Check [facility] diagnostic 3-07 blood ity of strip 00:00: sugar 2 [place] 00 times a Medical day. Branch E11.9. Brand per insurance. blood sugar 2021-0 Yes [id number] Check [facility] diagnostic 3-07 blood ity of strip 00:00: sugar 2 [place] 00 times a Medical day. Branch E11.9. Brand per insurance. blood sugar 2-0 Yes [id number] Check [facility] diagnostic 3-07 blood ity of strip 00:00: sugar 2 [place] 00 times a Medical day. Branch E11.9. Brand per insurance. blood sugar 2021-0 Yes [id number] Check [facility] diagnostic 3-07 blood ity of strip 00:00: sugar 2 [place] 00 times a Medical day. Branch E11.9. Brand per insurance. blood sugar 2-0 Yes [id number] Check [facility] diagnostic 3-07 blood ity of strip 00:00: sugar 2 [place] 00 times a Medical day. Branch E11.9. Brand per insurance. blood sugar 2022-0 Yes [id number] Check [facility] diagnostic 3-07 blood ity of strip 00:00: sugar 2 [place] 00 times a Medical day. Branch E11.9. Brand per insurance. blood sugar 2021-0 Yes [id number] Check [facility] diagnostic 3-07 blood ity of strip 00:00: sugar 2 [place] 00 times a Medical day. Branch E11.9. Brand per insurance. blood sugar 2021-0 Yes [id number] Check [facility] diagnostic 3-07 blood ity of strip 00:00: sugar 2 [place] 00 times a Medical day. Branch E11.9. Brand per insurance. blood sugar 2021-0 Yes [id number] Check [facility] diagnostic 3-07 blood ity of strip 00:00: sugar 2 [place] 00 times a Medical day. Branch E11.9. Brand per insurance. blood sugar 2021-0 Yes [id number] Check [facility] diagnostic 3-07 blood ity of strip 00:00: sugar 2 [place] 00 times a Medical day. Branch E11.9. Brand per insurance. blood sugar 2021-0 Yes [id number] Check [facility] diagnostic 3-07 blood ity of strip 00:00: sugar 2 [place] 00 times a Medical day. Branch E11.9. Brand per insurance. blood sugar 2-0 Yes [id number] Check [facility] diagnostic 3-07 blood ity of strip 00:00: sugar 2 [place] 00 times a Medical day. Branch E11.9. Brand per insurance. blood sugar 2-0 Yes [id number] Check [facility] diagnostic 3-07 blood ity of strip 00:00: sugar 2 [place] 00 times a Medical day. Branch E11.9. Brand per insurance. blood sugar 2022-0 Yes [id number] Check [facility] diagnostic 3-07 blood ity of strip 00:00: sugar 2 [place] 00 times a Medical day. Branch E11.9. Brand per insurance. blood sugar 2022-0 Yes [id number] Check [facility] diagnostic 3-07 blood ity of strip 00:00: sugar 2 [place] 00 times a Medical day. Branch E11.9. Brand per insurance. blood sugar 2021-0 Yes [id number] Check [facility] diagnostic 3-07 blood ity of strip 00:00: sugar 2 [place] 00 times a Medical day. Branch E11.9. Brand per insurance. blood sugar 2021-0 Yes [id number] Check [facility] diagnostic 3-07 blood ity of strip 00:00: sugar 2 [place] 00 times a Medical day. Branch E11.9. Brand per insurance. blood sugar 2021-0 Yes [id number] Check [facility] diagnostic 3-07 blood ity of strip 00:00: sugar 2 [place] 00 times a Medical day. Branch E11.9. Brand per insurance. blood sugar 2021-0 Yes [id number] Check [facility] diagnostic 3-07 blood ity of strip 00:00: sugar 2 [place] 00 times a Medical day. Branch E11.9. Brand per insurance. blood sugar 2021-0 Yes [id number] Check [facility] diagnostic 3-07 blood ity of strip 00:00: sugar 2 [place] 00 times a Medical day. Branch E11.9. Brand per insurance. blood sugar 2021-0 Yes [id number] Check [facility] diagnostic 3-07 blood ity of strip 00:00: sugar 2 [place] 00 times a Medical day. Branch E11.9. Brand per insurance. blood sugar 2021-0 Yes [id number] Check [facility] diagnostic 3-07 blood ity of strip 00:00: sugar 2 [place] 00 times a Medical day. Branch E11.9. Brand per insurance. blood sugar 2021-0 Yes [id number] Check [facility] diagnostic 3-07 blood ity of strip 00:00: sugar 2 [place] 00 times a Medical day. Branch E11.9. Brand per insurance. blood sugar 2021-0 Yes [id number] Check [facility] diagnostic 3-07 blood ity of strip 00:00: sugar 2 [place] 00 times a Medical day. Branch E11.9. Brand per insurance. blood sugar 2021-0 Yes [id number] Check [facility] diagnostic 3-07 blood ity of strip 00:00: sugar 2 [place] 00 times a Medical day. Branch E11.9. Brand per insurance. blood sugar 2-0 Yes [id number] Check [facility] diagnostic 3-07 blood ity of strip 00:00: sugar 2 [place] 00 times a Medical day. Branch E11.9. Brand per insurance. blood sugar 2021-0 Yes [id number] Check [facility] diagnostic 3-07 blood ity of strip 00:00: sugar 2 [place] 00 times a Medical day. Branch E11.9. Brand per insurance. blood sugar 2021-0 Yes [id number] Check [facility] diagnostic 3-07 blood ity of strip 00:00: sugar 2 [place] 00 times a Medical day. Branch E11.9. Brand per insurance. blood sugar 2021-0 Yes [id number] Check [facility] diagnostic 3-07 blood ity of strip 00:00: sugar 2 [place] 00 times a Medical day. Branch E11.9. Brand per insurance. blood sugar 2021-0 Yes [id number] Check [facility] diagnostic 3-07 blood ity of strip 00:00: sugar 2 [place] 00 times a Medical day. Branch E11.9. Brand per insurance. blood sugar 2021-0 Yes [id number] [facility] 3-07 blood ity of strip 00:00: sugar 2 [place] 00 times a Medical day. Branch E11.9. Brand per insurance. blood sugar 2021-0 Yes [id number] [facility] 3-07 blood ity of strip 00:00: sugar 2 [place] 00 times a Medical day. Branch E11.9. Brand per insurance. blood sugar 2021-0 Yes [id number] [facility] 3-07 blood ity of strip 00:00: sugar 2 [place] 00 times a Medical day. Branch E11.9. Brand per insurance. blood sugar 2021-0 Yes [id number] [facility] 3-07 blood ity of strip 00:00: sugar 2 [place] 00 times a Medical day. Branch E11.9. Brand per insurance. blood sugar 2021-0 Yes [id number] [facility] 3-07 blood ity of strip 00:00: sugar 2 [place] 00 times a Medical day. Branch E11.9. Brand per insurance. blood sugar 2021-0 Yes [id number] [facility] 3-07 blood ity of strip 00:00: sugar 2 [place] 00 times a Medical day. Branch E11.9. Brand per insurance. blood sugar 2-0 Yes [id number] [facility] 3-07 blood ity of strip 00:00: sugar 2 [place] 00 times a Medical day. Branch E11.9. Brand per insurance. blood sugar 2021-0 Yes [id number] [facility] 3-07 blood ity of strip 00:00: sugar 2 [place] 00 times a Medical day. Branch E11.9. Brand per insurance. blood sugar 2021-0 Yes [id number] [facility] 3-07 blood ity of strip 00:00: sugar 2 [place] 00 times a Medical day. Branch E11.9. Brand per insurance. blood sugar 2021-0 Yes [id number] [facility] 3-07 blood ity of strip 00:00: sugar 2 [place] 00 times a Medical day. Branch E11.9. Brand per insurance. blood sugar 0 3- No [id number] [facility] 3-07 04-06 blood ity of strip 00:00: 00:00 sugar 2 [place] 00 :00 times a Medical day. Branch E11.9. Brand per insurance. Blood-Gluco 2021-0 Yes [id number] [facility] se Meter 3-04 sugars 2 ity of Kit 00:00: times a [place] 00 day. Dx. Medical Code E11.9 Branch Brand per Insurance Lancets 0 Yes [id number] [facility] Misc 3-04 blood ity of 00:00: sugar 2 00 times a Medical day. Branch E11.9. Brand per insurance. Blood-Gluco 2021-0 Yes [id number] [facility] se Meter 3-04 sugars 2 ity of Kit 00:00: times a [place] 00 day. Dx. Medical Code E11.9 Branch Brand per Insurance Lancets 2021-0 Yes [id number] [facility] Misc 3-04 blood ity of 00:00: sugar 2 [place] 00 times a Medical day. Branch E11.9. Brand per insurance. Blood-Gluco 2021-0 Yes [id number] [facility] se Meter 3-04 sugars 2 ity of Kit 00:00: times a [place] 00 day. Dx. Medical Code E11.9 Branch Brand per Insurance Lancets 2021-0 Yes [id number] [facility] Misc 3-04 blood ity of 00:00: sugar 2 [place] 00 times a Medical day. Branch E11.9. Brand per insurance. Blood-Gluco 2021-0 Yes [id number] [facility] se Meter 3-04 sugars 2 ity of Kit 00:00: times a [place] 00 day. Dx. Medical Code E11.9 Branch Brand per Insurance Lancets 2021-0 Yes [id number] [facility] Misc 3-04 blood ity of 00:00: sugar 2 [place] 00 times a Medical day. Branch E11.9. Brand per insurance. Blood-Gluco 2021-0 Yes [id number] [facility] se Meter 3-04 sugars 2 ity of Kit 00:00: times a [place] 00 day. Dx. Medical Code E11.9 Branch Brand per Insurance Lancets 2021-0 Yes [id number] [facility] Misc 3-04 blood ity of 00:00: sugar 2 [place] 00 times a Medical day. Branch E11.9. Brand per insurance. Blood-Gluco 2021-0 Yes [id number] [facility] Meter 3-04 sugars 2 ity of Kit 00:00: times a [place] 00 day. Dx. Medical Code E11.9 Branch Brand per Insurance Lancets 0 Yes [id number] [facility] Misc 3-04 blood ity of 00:00: sugar 2 [place] 00 times a Medical day. Branch E11.9. Brand per insurance. Blood-Gluco 2021-0 Yes [id number] [facility] se Meter 3-04 sugars 2 ity of Kit 00:00: times a [place] 00 day. Dx. Medical Code E11.9 Branch Brand per Insurance Lancets 0 Yes [id number] [facility] Misc 3-04 blood ity of 00:00: sugar 2 [place] 00 times a Medical day. Branch E11.9. Brand per insurance. Blood-Gluco 2021-0 Yes [id number] [facility] se Meter 3-04 sugars 2 ity of Kit 00:00: times a [place] 00 day. Dx. Medical Code E11.9 Branch Brand per Insurance Lancets 2021-0 Yes [id number] [facility] Misc 3-04 blood ity of 00:00: sugar 2 [place] 00 times a Medical day. Branch E11.9. Brand per insurance. Blood-Gluco 2021-0 Yes [id number] [facility] Meter 3-04 sugars 2 ity of Kit 00:00: times a [place] 00 day. Dx. Medical Code E11.9 Branch Brand per Insurance Lancets 2021-0 Yes [id number] [facility] Misc 3-04 blood ity of 00:00: sugar 2 [place] 00 times a Medical day. Branch E11.9. Brand per insurance. Blood-Gluco 2021-0 Yes [id number] [facility] se Meter 3-04 sugars 2 ity of Kit 00:00: times a [place] 00 day. Dx. Medical Code E11.9 Branch Brand per Insurance Lancets 0 Yes [id number] [facility] Misc 3-04 blood ity of 00:00: sugar 2 [place] 00 times a Medical day. Branch E11.9. Brand per insurance. Blood-Gluco 2021-0 Yes [id number] [facility] se Meter 3-04 sugars 2 ity of Kit 00:00: times a [place] 00 day. Dx. Medical Code E11.9 Branch Brand per Insurance Lancets Yes [id number] [facility] Misc 3-04 blood ity of 00:00: sugar 2 [place] 00 times a Medical day. Branch E11.9. Brand per insurance. Blood-Gluco 2021-0 Yes [id number] [facility] Meter 3-04 sugars 2 ity of Kit 00:00: times a [place] 00 day. Dx. Medical Code E11.9 Branch Brand per Insurance Lancets Yes [id number] [facility] Misc 3-04 blood ity of 00:00: sugar 2 [place] 00 times a Medical day. Branch E11.9. Brand per insurance. Blood-Gluco 2021-0 Yes [id number] [facility] se Meter 3-04 sugars 2 ity of Kit 00:00: times a [place] 00 day. Dx. Medical Code E11.9 Branch Brand per Insurance Lancets Yes [id number] [facility] Misc 3-04 blood ity of 00:00: sugar 2 00 times a Medical day. Branch E11.9. Brand per insurance. Blood-Gluco 2021-0 Yes [id number] [facility] Meter 3-04 sugars 2 ity of Kit 00:00: times a [place] 00 day. Dx. Medical Code E11.9 Branch Brand per Insurance Lancets Yes [id number] [facility] Misc 3-04 blood ity of 00:00: sugar 2 [place] 00 times a Medical day. Branch E11.9. Brand per insurance. Blood-Gluco 2021-0 Yes [id number] [facility] se Meter 3-04 sugars 2 ity of Kit 00:00: times a [place] 00 day. Dx. Medical Code E11.9 Branch Brand per Insurance Lancets 2022-0 Yes [id number] [facility] Misc 3-04 blood ity of 00:00: sugar 2 [place] 00 times a Medical day. Branch E11.9. Brand per insurance. Blood-Gluco 2021-0 Yes [id number] [facility] Meter 3-04 sugars 2 ity of Kit 00:00: times a [place] 00 day. Dx. Medical Code E11.9 Branch Brand per Insurance Lancets 2021-0 Yes [id number] [facility] Misc 3-04 blood ity of 00:00: sugar 2 [place] 00 times a Medical day. Branch E11.9. Brand per insurance. Blood-Gluco 2021-0 Yes [id number] [facility] Meter 3-04 sugars 2 ity of Kit 00:00: times a [place] 00 day. Dx. Medical Code E11.9 Branch Brand per Insurance Lancets 2021-0 Yes [id number] [facility] Misc 3-04 blood ity of 00:00: sugar 2 [place] 00 times a Medical day. Branch E11.9. Brand per insurance. Blood-Gluco 2021-0 Yes [id number] [facility] Meter 3-04 sugars 2 ity of Kit 00:00: times a [place] 00 day. Dx. Medical Code E11.9 Branch Brand per Insurance Lancets 0 Yes [id number] [facility] Misc 3-04 blood ity of 00:00: sugar 2 [place] 00 times a Medical day. Branch E11.9. Brand per insurance. Blood-Gluco 2021-0 Yes [id number] [facility] Meter 3-04 sugars 2 ity of Kit 00:00: times a [place] 00 day. Dx. Medical Code E11.9 Branch Brand per Insurance Lancets 2021-0 Yes [id number] [facility] Misc 3-04 blood ity of 00:00: sugar 2 [place] 00 times a Medical day. Branch E11.9. Brand per insurance. Blood-Gluco 2021-0 Yes [id number] [facility] Meter 3-04 sugars 2 ity of Kit 00:00: times a [place] 00 day. Dx. Medical Code E11.9 Branch Brand per Insurance Lancets 2021-0 Yes [id number] [facility] Misc 3-04 blood ity of 00:00: sugar 2 [place] 00 times a Medical day. Branch E11.9. Brand per insurance. Blood-Gluco 2021-0 Yes [id number] [facility] Meter 3-04 sugars 2 ity of Kit 00:00: times a [place] 00 day. Dx. Medical Code E11.9 Branch Brand per Insurance Lancets 2021-0 Yes [id number] [facility] Misc 3-04 blood ity of 00:00: sugar 2 [place] 00 times a Medical day. Branch E11.9. Brand per insurance. Blood-Gluco 2021-0 Yes [id number] [facility] Meter 3-04 sugars 2 ity of Kit 00:00: times a [place] 00 day. Dx. Medical Code E11.9 Branch Brand per Insurance Lancets 0 Yes [id number] [facility] Misc 3-04 blood ity of 00:00: sugar 2 [place] 00 times a Medical day. Branch E11.9. Brand per insurance. Blood-Gluco 2021-0 Yes [id number] [facility] Meter 3-04 sugars 2 ity of Kit 00:00: times a [place] 00 day. Dx. Medical Code E11.9 Branch Brand per Insurance Lancets 0 Yes [id number] [facility] Misc 3-04 blood ity of 00:00: sugar 2 [place] 00 times a Medical day. Branch E11.9. Brand per insurance. Blood-Gluco 2021-0 Yes [id number] [facility] Meter 3-04 sugars 2 ity of Kit 00:00: times a [place] 00 day. Dx. Medical Code E11.9 Branch Brand per Insurance Lancets 2021-0 Yes [id number] [facility] Misc 3-04 blood ity of 00:00: sugar 2 [place] 00 times a Medical day. Branch E11.9. Brand per insurance. Blood-Gluco 2021-0 Yes [id number] [facility] Meter 3-04 sugars 2 ity of Kit 00:00: times a [place] 00 day. Dx. Medical Code E11.9 Branch Brand per Insurance Lancets 2021-0 Yes [id number] [facility] Misc 3-04 blood ity of 00:00: sugar 2 [place] 00 times a Medical day. Branch E11.9. Brand per insurance. Blood-Gluco 2021-0 Yes [id number] [facility] Meter 3-04 sugars 2 ity of Kit 00:00: times a [place] 00 day. Dx. Medical Code E11.9 Branch Brand per Insurance Lancets 0 Yes [id number] [facility] Misc 3-04 blood ity of 00:00: sugar 2 [place] 00 times a Medical day. Branch E11.9. Brand per insurance. Blood-Gluco 2021-0 Yes [id number] [facility] Meter 3-04 sugars 2 ity of Kit 00:00: times a [place] 00 day. Dx. Medical Code E11.9 Branch Brand per Insurance Lancets 0 Yes [id number] [facility] Misc 3-04 blood ity of 00:00: sugar 2 [place] 00 times a Medical day. Branch E11.9. Brand per insurance. Blood-Gluco 2021-0 Yes [id number] [facility] Meter 3-04 sugars 2 ity of Kit 00:00: times a [place] 00 day. Dx. Medical Code E11.9 Branch Brand per Insurance Lancets Yes [id number] [facility] Misc 3-04 blood ity of 00:00: sugar 2 00 times a Medical day. Branch E11.9. Brand per insurance. Blood-Gluco 2021-0 Yes [id number] [facility] Meter 3-04 sugars 2 ity of Kit 00:00: times a [place] 00 day. Dx. Medical Code E11.9 Branch Brand per Insurance Lancets 0 Yes [id number] [facility] Misc 3-04 blood ity of 00:00: sugar 2 [place] 00 times a Medical day. Branch E11.9. Brand per insurance. Blood-Gluco 2021-0 Yes [id number] [facility] Meter 3-04 sugars 2 ity of Kit 00:00: times a [place] 00 day. Dx. Medical Code E11.9 Branch Brand per Insurance Lancets 0 Yes [id number] [facility] Misc 3-04 blood ity of 00:00: sugar 2 [place] 00 times a Medical day. Branch E11.9. Brand per insurance. Blood-Gluco 2021-0 Yes [id number] [facility] Meter 3-04 sugars 2 ity of Kit 00:00: times a [place] 00 day. Dx. Medical Code E11.9 Branch Brand per Insurance Lancets 0 Yes [id number] [facility] Misc 3-04 blood ity of 00:00: sugar 2 [place] 00 times a Medical day. Branch E11.9. Brand per insurance. Blood-Gluco 2022-0 Yes [id number] [facility] Meter 3-04 sugars 2 ity of Kit 00:00: times a [place] 00 day. Dx. Medical Code E11.9 Branch Brand per Insurance Lancets 2021-0 Yes [id number] [facility] Misc 3-04 blood ity of 00:00: sugar 2 [place] 00 times a Medical day. Branch E11.9. Brand per insurance. Blood-Gluco 2021-0 Yes [id number] [facility] Meter 3-04 sugars 2 ity of Kit 00:00: times a [place] 00 day. Dx. Medical Code E11.9 Branch Brand per Insurance Lancets 2021-0 Yes [id number] [facility] Misc 3-04 blood ity of 00:00: sugar 2 [place] 00 times a Medical day. Branch E11.9. Brand per insurance. Blood-Gluco 2021-0 Yes [id number] [facility] Meter 3-04 sugars 2 ity of Kit 00:00: times a [place] 00 day. Dx. Medical Code E11.9 Branch Brand per Insurance Lancets 2021-0 Yes [id number] [facility] Misc 3-04 blood ity of 00:00: sugar 2 [place] 00 times a Medical day. Branch E11.9. Brand per insurance. Blood-Gluco 2021-0 Yes [id number] [facility] Meter 3-04 sugars 2 ity of Kit 00:00: times a [place] 00 day. Dx. Medical Code E11.9 Branch Brand per Insurance Lancets 2021-0 Yes [id number] [facility] Misc 3-04 blood ity of 00:00: sugar 2 [place] 00 times a Medical day. Branch E11.9. Brand per insurance. Blood-Gluco 2021-0 Yes [id number] [facility] Meter 3-04 sugars 2 ity of Kit 00:00: times a [place] 00 day. Dx. Medical Code E11.9 Branch Brand per Insurance Lancets 2021-0 Yes [id number] [facility] Misc 3-04 blood ity of 00:00: sugar 2 [place] 00 times a Medical day. Branch E11.9. Brand per insurance. Blood-Gluco 2022-0 Yes [id number] [facility] Meter 3-04 sugars 2 ity of Kit 00:00: times a [place] 00 day. Dx. Medical Code E11.9 Branch Brand per Insurance Lancets 0 Yes [id number] [facility] Misc 3-04 blood ity of 00:00: sugar 2 times a Medical day. Branch E11.9. Brand per insurance. Blood-Gluco 2021-0 Yes [id number] [facility] Meter 3-04 sugars 2 ity of Kit 00:00: times a [place] 00 day. Dx. Medical Code E11.9 Branch Brand per Insurance Lancets 0 Yes [id number] [facility] Misc 3-04 blood ity of 00:00: sugar 2 times a Medical day. Branch E11.9. Brand per insurance. Blood-Gluco 2021-0 Yes [id number] [facility] Meter 3-04 sugars 2 ity of Kit 00:00: times a [place] 00 day. Dx. Medical Code E11.9 Branch Brand per Insurance Lancets 0 Yes [id number] [facility] Misc 3-04 blood ity of 00:00: sugar 2 times a Medical day. Branch E11.9. Brand per insurance. Blood-Gluco 2021-0 Yes [id number] [facility] Meter 3-04 sugars 2 ity of Kit 00:00: times a [place] 00 day. Dx. Medical Code E11.9 Branch Brand per Insurance Lancets 0 Yes [id number] [facility] Misc 3-04 blood ity of 00:00: sugar 2 times a Medical day. Branch E11.9. Brand per insurance. Blood-Gluco 2021-0 Yes [id number] [facility] Meter 3-04 sugars 2 ity of Kit 00:00: times a [place] 00 day. Dx. Medical Code E11.9 Branch Brand per Insurance Lancets 0 Yes [id number] [facility] Misc 3-04 blood ity of 00:00: sugar 2 times a Medical day. Branch E11.9. Brand per insurance. Blood-Gluco 2021-0 Yes [id number] [facility] Meter 3-04 sugars 2 ity of Kit 00:00: times a [place] 00 day. Dx. Medical Code E11.9 Branch Brand per Insurance Lancets 0 Yes [id number] [facility] Misc 3-04 blood ity of 00:00: sugar 2 [place] 00 times a Medical day. Branch E11.9. Brand per insurance. Blood-Gluco 2021-0 Yes [id number] [facility] Meter 3-04 sugars 2 ity of Kit 00:00: times a [place] 00 day. Dx. Medical Code E11.9 Branch Brand per Insurance Lancets 0 Yes [id number] [facility] Misc 3-04 blood ity of 00:00: sugar 2 [place] 00 times a Medical day. Branch E11.9. Brand per insurance. Blood-Gluco 2021-0 Yes [id number] [facility] Meter 3-04 sugars 2 ity of Kit 00:00: times a [place] 00 day. Dx. Medical Code E11.9 Branch Brand per Insurance Lancets 0 Yes [id number] [facility] Misc 3-04 blood ity of 00:00: sugar 2 00 times a Medical day. Branch E11.9. Brand per insurance. Blood-Gluco 2021-0 Yes [id number] [facility] Meter 3-04 sugars 2 ity of Kit 00:00: times a [place] 00 day. Dx. Medical Code E11.9 Branch Brand per Insurance Lancets 0 Yes [id number] [facility] Misc 3-04 blood ity of 00:00: sugar 2 00 times a Medical day. Branch E11.9. Brand per insurance. Blood-Gluco 2021-0 Yes [id number] [facility] Meter 3-04 sugars 2 ity of Kit 00:00: times a [place] 00 day. Dx. Medical Code E11.9 Branch Brand per Insurance Lancets 2021-0 Yes [id number] [facility] Misc 3-04 blood ity of 00:00: sugar 2 [place] 00 times a Medical day. Branch E11.9. Brand per insurance. Blood-Gluco 2021-0 Yes [id number] [facility] Meter 3-04 sugars 2 ity of Kit 00:00: times a [place] 00 day. Dx. Medical Code E11.9 Branch Brand per Insurance Lancets 2021-0 Yes [id number] [facility] Misc 3-04 blood ity of 00:00: sugar 2 [place] 00 times a Medical day. Branch E11.9. Brand per insurance. Blood-Gluco 2021-0 Yes [id number] [facility] se Meter 3-04 sugars 2 ity of Kit 00:00: times a [place] 00 day. Dx. Medical Code E11.9 Branch Brand per Insurance Lancets 2021-0 Yes [id number] [facility] Misc 3-04 blood ity of 00:00: sugar 2 [place] 00 times a Medical day. Branch E11.9. Brand per insurance. Blood-Gluco 2021-0 Yes [id number] [facility] Meter 3-04 sugars 2 ity of Kit 00:00: times a [place] 00 day. Dx. Medical Code E11.9 Branch Brand per Insurance Lancets 0 Yes [id number] [facility] Misc 3-04 blood ity of 00:00: sugar 2 00 times a Medical day. Branch E11.9. Brand per insurance. Blood-Gluco 2021-0 Yes [id number] [facility] Meter 3-04 sugars 2 ity of Kit 00:00: times a [place] 00 day. Dx. Medical Code E11.9 Branch Brand per Insurance Lancets 0 Yes [id number] [facility] Misc 3-04 blood ity of 00:00: sugar 2 [place] 00 times a Medical day. Branch E11.9. Brand per insurance. Blood-Gluco 2021-0 Yes [id number] [facility] Meter 3-04 sugars 2 ity of Kit 00:00: times a [place] 00 day. Dx. Medical Code E11.9 Branch Brand per Insurance Lancets 0 Yes [id number] [facility] Misc 3-04 blood ity of 00:00: sugar 2 00 times a Medical day. Branch E11.9. Brand per insurance. Blood-Gluco 2021-0 Yes [id number] [facility] Meter 3-04 sugars 2 ity of Kit 00:00: times a [place] 00 day. Dx. Medical Code E11.9 Branch Brand per Insurance Lancets 2021-0 Yes [id number] [facility] Misc 3-04 blood ity of 00:00: sugar 2 [place] 00 times a Medical day. Branch E11.9. Brand per insurance. Blood-Gluco 2021-0 Yes [id number] [facility] se Meter 3-04 sugars 2 ity of Kit 00:00: times a [place] 00 day. Dx. Medical Code E11.9 Branch Brand per Insurance Lancets 2021-0 Yes [id number] [facility] Misc 3-04 blood ity of 00:00: sugar 2 [place] 00 times a Medical day. Branch E11.9. Brand per insurance. Blood-Gluco 2021-0 Yes [id number] [facility] se Meter 3-04 sugars 2 ity of Kit 00:00: times a [place] 00 day. Dx. Medical Code E11.9 Branch Brand per Insurance Lancets 0 Yes [id number] [facility] Misc 3-04 blood ity of 00:00: sugar 2 [place] 00 times a Medical day. Branch E11.9. Brand per insurance. Blood-Gluco 2021-0 Yes [id number] [facility] Meter 3-04 sugars 2 ity of Kit 00:00: times a [place] 00 day. Dx. Medical Code E11.9 Branch Brand per Insurance Lancets 0 Yes [id number] [facility] Misc 3-04 blood ity of 00:00: sugar 2 [place] 00 times a Medical day. Branch E11.9. Brand per insurance. Blood-Gluco 2021-0 Yes [id number] [facility] se Meter 3-04 sugars 2 ity of Kit 00:00: times a [place] 00 day. Dx. Medical Code E11.9 Branch Brand per Insurance Lancets 0 Yes [id number] [facility] Misc 3-04 blood ity of 00:00: sugar 2 [place] 00 times a Medical day. Branch E11.9. Brand per insurance. Blood-Gluco 2021-0 Yes [id number] [facility] se Meter 3-04 sugars 2 ity of Kit 00:00: times a [place] 00 day. Dx. Medical Code E11.9 Branch Brand per Insurance Lancets 0 Yes [id number] [facility] Misc 3-04 blood ity of 00:00: sugar 2 [place] 00 times a Medical day. Branch E11.9. Brand per insurance. Blood-Gluco 2021-0 Yes [id number] [facility] se Meter 3-04 sugars 2 ity of Kit 00:00: times a [place] 00 day. Dx. Medical Code E11.9 Branch Brand per Insurance Lancets 0 Yes [id number] [facility] Misc 3-04 blood ity of 00:00: sugar 2 [place] 00 times a Medical day. Branch E11.9. Brand per insurance. Blood-Gluco 2021-0 Yes [id number] [facility] se Meter 3-04 sugars 2 ity of Kit 00:00: times a [place] 00 day. Dx. Medical Code E11.9 Branch Brand per Insurance Lancets 0 Yes [id number] [facility] Misc 3-04 blood ity of 00:00: sugar 2 [place] 00 times a Medical day. Branch E11.9. Brand per insurance. Blood-Gluco 2021-0 Yes [id number] [facility] se Meter 3-04 sugars 2 ity of Kit 00:00: times a [place] 00 day. Dx. Medical Code E11.9 Branch Brand per Insurance Lancets 0 Yes [id number] [facility] Misc 3-04 blood ity of 00:00: sugar 2 [place] 00 times a Medical day. Branch E11.9. Brand per insurance. Blood-Gluco 2021-0 Yes [id number] [facility] se Meter 3-04 sugars 2 ity of Kit 00:00: times a [place] 00 day. Dx. Medical Code E11.9 Branch Brand per Insurance Lancets Yes [id number] [facility] Misc 3-04 blood ity of 00:00: sugar 2 [place] 00 times a Medical day. Branch E11.9. Brand per insurance. Blood-Gluco 2021-0 Yes [id number] [facility] Meter 3-04 sugars 2 ity of Kit 00:00: times a [place] 00 day. Dx. Medical Code E11.9 Branch Brand per Insurance Lancets Yes [id number] [facility] Misc 3-04 blood ity of 00:00: sugar 2 [place] 00 times a Medical day. Branch E11.9. Brand per insurance. Blood-Gluco 2021-0 Yes [id number] [facility] Meter 3-04 sugars 2 ity of Kit 00:00: times a [place] 00 day. Dx. Medical Code E11.9 Branch Brand per Insurance Lancets 0 Yes [id number] [facility] Misc 3-04 blood ity of 00:00: sugar 2 [place] 00 times a Medical day. Branch E11.9. Brand per insurance. Blood-Gluco 2021-0 Yes [id number] [facility] se Meter 3-04 sugars 2 ity of Kit 00:00: times a [place] 00 day. Dx. Medical Code E11.9 Branch Brand per Insurance Lancets 0 Yes [id number] [facility] Misc 3-04 blood ity of 00:00: sugar 2 [place] 00 times a Medical day. Branch E11.9. Brand per insurance. Blood-Gluco 2021-0 Yes [id number] [facility] se Meter 3-04 sugars 2 ity of Kit 00:00: times a [place] 00 day. Dx. Medical Code E11.9 Branch Brand per Insurance Lancets 0 Yes [id number] [facility] Misc 3-04 blood ity of 00:00: sugar 2 [place] 00 times a Medical day. Branch E11.9. Brand per insurance. Blood-Gluco 2021-0 Yes [id number] [facility] se Meter 3-04 sugars 2 ity of Kit 00:00: times a [place] 00 day. Dx. Medical Code E11.9 Branch Brand per Insurance Lancets 0 Yes [id number] [facility] Misc 3-04 blood ity of 00:00: sugar 2 [place] 00 times a Medical day. Branch E11.9. Brand per insurance. Blood-Gluco 2021-0 Yes [id number] [facility] se Meter 3-04 sugars 2 ity of Kit 00:00: times a [place] 00 day. Dx. Medical Code E11.9 Branch Brand per Insurance Lancets 0 Yes [id number] [facility] Misc 3-04 blood ity of 00:00: sugar 2 [place] 00 times a Medical day. Branch E11.9. Brand per insurance. Blood-Gluco 2021-0 Yes [id number] [facility] se Meter 3-04 sugars 2 ity of Kit 00:00: times a [place] 00 day. Dx. Medical Code E11.9 Branch Brand per Insurance Lancets 0 Yes [id number] [facility] Misc 3-04 blood ity of 00:00: sugar 2 [place] 00 times a Medical day. Branch E11.9. Brand per insurance. Blood-Gluco 2021-0 Yes [id number] [facility] se Meter 3-04 sugars 2 ity of Kit 00:00: times a [place] 00 day. Dx. Medical Code E11.9 Branch Brand per Insurance Lancets 0 Yes [id number] [facility] Misc 3-04 blood ity of 00:00: sugar 2 [place] 00 times a Medical day. Branch E11.9. Brand per insurance. Blood-Gluco 2-0 Yes [id number] [facility] se Meter 3-04 sugars 2 ity of Kit 00:00: times a [place] 00 day. Dx. Medical Code E11.9 Branch Brand per Insurance Lanc[employer] 2021-0 Yes [id number] [facility] Misc 3-04 blood ity of 00:00: sugar 2 [place] 00 times a Medical day. Branch E11.9. Brand per insurance. Blood-Gluco 2-0 Yes [id number] [facility] se Meter 3-04 sugars 2 ity of Kit 00:00: times a [place] 00 day. Dx. Medical Code E11.9 Branch Brand per Insurance Lanc[employer] 2021-0 Yes [id number] [facility] Misc 3-04 blood ity of 00:00: sugar 2 [place] 00 times a Medical day. Branch E11.9. Brand per insurance. Blood-Gluco 2021-0 2023- No [id number] [facility] se Meter 3-04 04-06 sugars 2 ity of Kit 00:00: 00:00 times a [place] 00 :00 day. Dx. Medical Code E11.9 Branch Brand per Insurance Lanc[employer] 2021-0 2023- No [id number] [facility] vers Misc 3-04 04-06 blood ity of 00:00: 00:00 sugar 2 [place] 00 :00 times a Medical day. Branch E11.9. Brand per insurance. terbinafine 2020-09 Yes [id number] Apply to [facility] HCL 1 % 0-27 area(s) 2 ity of cream 00:00: (two) [place] 00 times Medical daily. Branch terbinafine 2020-09 Yes [id number] Apply to [facility] HCL 1 % 0-27 area(s) 2 ity of cream 00:00: (two) [place] 00 times Medical daily. Branch terbinafine 2020-09 Yes [id number] Apply to [facility] HCL 1 % 0-27 area(s) 2 ity of cream 00:00: (two) [place] 00 times Medical daily. Branch terbinafine 2020-09 Yes [id number] Apply to [facility] HCL 1 % 0-27 area(s) 2 ity of cream 00:00: (two) [place] 00 times Medical daily. [facility] terbinafine 2020-09 Yes [id number] Apply to [facility] HCL 1 % 0-27 area(s) 2 ity of cream 00:00: (two) [place] 00 times Medical daily. [facility] terbinafine 2020- Yes [id number] Apply to [facility] HCL 1 % 0-27 area(s) 2 ity of cream 00:00: (two) [place] 00 times Medical daily. [facility] terbinafine 2020- Yes [id number] Apply to [facility] HCL 1 % 0-27 area(s) 2 ity of cream 00:00: (two) [place] 00 times Medical daily. [facility] terbinafine 2020-09 Yes [id number] Apply to [facility] HCL 1 % 0-27 area(s) 2 ity of cream 00:00: (two) [place] 00 times Medical daily. [facility] terbinafine 2020-09 Yes [id number] Apply to [facility] HCL 1 % 0-27 area(s) 2 ity of cream 00:00: (two) [place] 00 times Medical daily. [facility] terbinafine 2020-09 Yes [id number] Apply to [facility] HCL 1 % 0-27 area(s) 2 ity of cream 00:00: (two) [place] 00 times Medical daily. [facility] terbinafine 2020-09 Yes [id number] Apply to [facility] HCL 1 % 0-27 area(s) 2 ity of cream 00:00: (two) [place] 00 times Medical daily. [facility] terbinafine 2020- Yes [id number] Apply to [facility] HCL 1 % 0-27 area(s) 2 ity of cream 00:00: (two) [place] times Medical daily. [facility] terbinafine 2020- Yes [id number] Apply to [facility] HCL 1 % 0-27 area(s) 2 ity of cream 00:00: (two) [place] 00 times Medical daily. [facility] terbinafine 2020- Yes [id number] Apply to [facility] HCL 1 % 0-27 area(s) 2 ity of cream 00:00: (two) [place] 00 times Medical daily. [facility] terbinafine 2020- Yes [id number] Apply to [facility] HCL 1 % 0-27 area(s) 2 ity of cream 00:00: (two) [place] 00 times Medical daily. [facility] terbinafine 2020- Yes [id number] Apply to [facility] HCL 1 % 0-27 area(s) 2 ity of cream 00:00: (two) [place] 00 times Medical daily. [facility] terbinafine 2020-09 Yes [id number] Apply to [facility] HCL 1 % 0-27 area(s) 2 ity of cream 00:00: (two) [place] 00 times Medical daily. [facility] terbinafine 2020-09 Yes [id number] Apply to [facility] HCL 1 % 0-27 area(s) 2 ity of cream 00:00: (two) [place] 00 times Medical daily. [facility] terbinafine 2020-09 Yes [id number] Apply to [facility] HCL 1 % 0-27 area(s) 2 ity of cream 00:00: (two) [place] 00 times Medical daily. [facility] terbinafine 2020-09 Yes [id number] Apply to [facility] HCL 1 % 0-27 area(s) 2 ity of cream 00:00: (two) [place] 00 times Medical daily. [facility] terbinafine 2020-09 Yes [id number] Apply to [facility] HCL 1 % 0-27 area(s) 2 ity of cream 00:00: (two) [place] 00 times Medical daily. [facility] terbinafine 2020-09 Yes [id number] Apply to [facility] HCL 1 % 0-27 area(s) 2 ity of cream 00:00: (two) [place] times Medical daily. [facility] terbinafine 2020-09 Yes [id number] Apply to [facility] HCL 1 % 0-27 area(s) 2 ity of cream 00:00: (two) [place] times Medical daily. [facility] terbinafine 2020-09 Yes [id number] Apply to [facility] HCL 1 % 0-27 area(s) 2 ity of cream 00:00: (two) [place] 00 times Medical daily. [facility] terbinafine 2020-09 Yes [id number] Apply to [facility] HCL 1 % 0-27 area(s) 2 ity of cream 00:00: (two) [place] 00 times Medical daily. [facility] terbinafine 2020-09 Yes [id number] Apply to [facility] HCL 1 % 0-27 area(s) 2 ity of cream 00:00: (two) [place] 00 times Medical daily. [facility] terbinafine 2020-09 Yes [id number] Apply to [facility] HCL 1 % 0-27 area(s) 2 ity of cream 00:00: (two) [place] 00 times Medical daily. [facility] terbinafine 2020-09 Yes [id number] Apply to [facility] HCL 1 % 0-27 area(s) 2 ity of cream 00:00: (two) [place] 00 times Medical daily. [facility] terbinafine 2020- Yes [id number] Apply to [facility] HCL 1 % 0-27 area(s) 2 ity of cream 00:00: (two) [place] times Medical daily. [facility] terbinafine 2020- Yes [id number] Apply to [facility] HCL 1 % 0-27 area(s) 2 ity of cream 00:00: (two) [place] 00 times Medical daily. [facility] terbinafine 2020- Yes [id number] Apply to [facility] HCL 1 % 0-27 area(s) 2 ity of cream 00:00: (two) [place] times Medical daily. [facility] terbinafine 2020-09 Yes [id number] Apply to [facility] HCL 1 % 0-27 area(s) 2 ity of cream 00:00: (two) [place] 00 times Medical daily. [facility] terbinafine 2020-09 Yes [id number] Apply to [facility] HCL 1 % 0-27 area(s) 2 ity of cream 00:00: (two) [place] times Medical daily. [facility] terbinafine 2020-09 Yes [id number] Apply to [facility] HCL 1 % 0-27 area(s) 2 ity of cream 00:00: (two) [place] times Medical daily. [facility] terbinafine 2020-09 Yes [id number] Apply to [facility] HCL 1 % 0-27 area(s) 2 ity of cream 00:00: (two) [place] 00 times Medical daily. [facility] terbinafine 2020-09 Yes [id number] Apply to [facility] HCL 1 % 0-27 area(s) 2 ity of cream 00:00: (two) [place] times Medical daily. [facility] terbinafine 2020- Yes [id number] Apply to [facility] HCL 1 % 0-27 area(s) 2 ity of cream 00:00: (two) [place] 00 times Medical daily. [facility] terbinafine 2020- Yes [id number] Apply to [facility] HCL 1 % 0-27 area(s) 2 ity of cream 00:00: (two) [place] 00 times Medical daily. [facility] terbinafine 2020- Yes [id number] Apply to [facility] HCL 1 % 0-27 area(s) 2 ity of cream 00:00: (two) [place] 00 times Medical daily. [facility] terbinafine 2020- Yes [id number] Apply to [facility] HCL 1 % 0-27 area(s) 2 ity of cream 00:00: (two) [place] times Medical daily. [facility] terbinafine 2020- Yes [id number] Apply to [facility] HCL 1 % 0-27 area(s) 2 ity of cream 00:00: (two) [place] 00 times Medical daily. [facility] terbinafine 2020- Yes [id number] Apply to [facility] HCL 1 % 0-27 area(s) 2 ity of cream 00:00: (two) [place] times Medical daily. [facility] terbinafine 2020- Yes [id number] Apply to [facility] HCL 1 % 0-27 area(s) 2 ity of cream 00:00: (two) [place] 00 times Medical daily. [facility] terbinafine 2020- Yes [id number] Apply to [facility] HCL 1 % 0-27 area(s) 2 ity of cream 00:00: (two) [place] times Medical daily. [facility] terbinafine 2020- Yes [id number] Apply to [facility] HCL 1 % 0-27 area(s) 2 ity of cream 00:00: (two) [place] times Medical daily. [facility] terbinafine 2020- Yes [id number] Apply to [facility] HCL 1 % 0-27 area(s) 2 ity of cream 00:00: (two) [place] 00 times Medical daily. [facility] terbinafine 2020- Yes [id number] Apply to [facility] HCL 1 % 0-27 area(s) 2 ity of cream 00:00: (two) [place] times Medical daily. [facility] terbinafine 2020- Yes [id number] Apply to [facility] HCL 1 % 0-27 area(s) 2 ity of cream 00:00: (two) [place] 00 times Medical daily. [facility] terbinafine 2020- Yes [id number] Apply to [facility] HCL 1 % 0-27 area(s) 2 ity of cream 00:00: (two) [place] 00 times Medical daily. [facility] terbinafine 2020- Yes [id number] Apply to [facility] HCL 1 % 0-27 area(s) 2 ity of cream 00:00: (two) [place] times Medical daily. [facility] terbinafine 2020- Yes [id number] Apply to [facility] HCL 1 % 0-27 area(s) 2 ity of cream 00:00: (two) [place] times Medical daily. [facility] terbinafine 2020- Yes [id number] Apply to [facility] HCL 1 % 0-27 area(s) 2 ity of cream 00:00: (two) [place] 00 times Medical daily. [facility] terbinafine 2020- Yes [id number] Apply to [facility] HCL 1 % 0-27 area(s) 2 ity of cream 00:00: (two) [place] times Medical daily. [facility] terbinafine 2020- Yes [id number] Apply to [facility] HCL 1 % 0-27 area(s) 2 ity of cream 00:00: (two) [place] times Medical daily. [facility] terbinafine 2020- Yes [id number] Apply to [facility] HCL 1 % 0-27 area(s) 2 ity of cream 00:00: (two) [place] 00 times Medical daily. [facility] terbinafine 2020- Yes [id number] Apply to [facility] HCL 1 % 0-27 area(s) 2 ity of cream 00:00: (two) [place] times Medical daily. [facility] terbinafine 2020- Yes [id number] Apply to [facility] HCL 1 % 0-27 area(s) 2 ity of cream 00:00: (two) [place] times Medical daily. [facility] terbinafine 2020- Yes [id number] Apply to [facility] HCL 1 % 0-27 area(s) 2 ity of cream 00:00: (two) [place] times Medical daily. [facility] terbinafine 2020-1 Yes [id number] Apply to [facility] HCL 1 % 0-27 area(s) 2 ity of cream 00:00: (two) [place] 00 times Medical daily. [facility] terbinafine 2020- Yes [id number] Apply to [facility] HCL 1 % 0-27 area(s) 2 ity of cream 00:00: (two) [place] 00 times Medical daily. [facility] terbinafine 2020- Yes [id number] Apply to [facility] HCL 1 % 0-27 area(s) 2 ity of cream 00:00: (two) [place] 00 times Medical daily. [facility] terbinafine 2020- Yes [id number] Apply to [facility] HCL 1 % 0-27 area(s) 2 ity of cream 00:00: (two) [place] 00 times Medical daily. [facility] terbinafine 2020- Yes [id number] Apply to [facility] HCL 1 % 0-27 area(s) 2 ity of cream 00:00: (two) [place] 00 times Medical daily. [facility] terbinafine 2020- Yes [id number] Apply to [facility] HCL 1 % 0-27 area(s) 2 ity of cream 00:00: (two) [place] times Medical daily. [facility] terbinafine 2020- Yes [id number] Apply to [facility] HCL 1 % 0-27 area(s) 2 ity of cream 00:00: (two) [place] times Medical daily. [facility] terbinafine 2020- Yes [id number] Apply to [facility] HCL 1 % 0-27 area(s) 2 ity of cream 00:00: (two) [place] 00 times Medical daily. [facility] terbinafine 2020- Yes [id number] Apply to [facility] HCL 1 % 0-27 area(s) 2 ity of cream 00:00: (two) [place] times Medical daily. [facility] terbinafine 2020- Yes [id number] Apply to [facility] HCL 1 % 0-27 area(s) 2 ity of cream 00:00: (two) [place] times Medical daily. [facility] terbinafine 2020- Yes [id number] Apply to [facility] HCL 1 % 0-27 area(s) 2 ity of cream 00:00: (two) [place] 00 times Medical daily. [facility] terbinafine 2020- Yes [id number] Apply to [facility] HCL 1 % 0-27 area(s) 2 ity of cream 00:00: (two) [place] 00 times Medical daily. [facility] terbinafine 2020- Yes [id number] Apply to [facility] HCL 1 % 0-27 area(s) 2 ity of cream 00:00: (two) [place] 00 times Medical daily. [facility] terbinafine 2020-09 Yes [id number] Apply to [facility] HCL 1 % 0-27 area(s) 2 ity of cream 00:00: (two) [place] 00 times Medical daily. [facility] terbinafine 2020-09 Yes [id number] Apply to [facility] HCL 1 % 0-27 area(s) 2 ity of cream 00:00: (two) [place] 00 times Medical daily. [facility] terbinafine 2020-09 Yes [id number] Apply to [facility] HCL 1 % 0-27 area(s) 2 ity of cream 00:00: (two) [place] 00 times Medical daily. [facility] terbinafine 2020-09 Yes [id number] Apply to [facility] HCL 1 % 0-27 area(s) 2 ity of cream 00:00: (two) [place] 00 times Medical daily. [facility] terbinafine 2020-09 Yes [id number] Apply to [facility] HCL 1 % 0-27 area(s) 2 ity of cream 00:00: (two) [place] 00 times Medical daily. [facility] terbinafine 2020-09 Yes [id number] Apply to [facility] HCL 1 % 0-27 area(s) 2 ity of cream 00:00: (two) [place] 00 times Medical daily. Branch docusate 2020-0 Yes TAKE 1 [facility] 100 mg 9-15 CAPSULE BY ity of capsule 00:00: MOUTH [place] 00 TWICE Medical DAILY Branch NEEDED docusate 2020-0 Yes TAKE 1 [facility] 100 mg 9-15 CAPSULE BY ity of capsule 00:00: MOUTH 00 TWICE Medical DAILY Branch NEEDED docusate 2020-0 Yes TAKE 1 [facility] 100 mg 9-15 CAPSULE BY ity of capsule 00:00: MOUTH [place] 00 TWICE Medical DAILY Branch NEEDED docusate 2020-0 Yes TAKE 1 [facility] 100 mg 9-15 CAPSULE BY ity of capsule 00:00: MOUTH 00 TWICE Medical DAILY Branch NEEDED docusate 2020-0 Yes TAKE 1 [facility] 100 mg 9-15 CAPSULE BY ity of capsule 00:00: MOUTH [place] 00 TWICE Medical DAILY Branch NEEDED docusate 2020-0 Yes TAKE 1 [facility] 100 mg 9-15 CAPSULE BY ity of capsule 00:00: MOUTH 00 TWICE Medical DAILY Branch NEEDED docusate 2020-0 Yes TAKE 1 [facility] 100 mg 9-15 CAPSULE BY ity of capsule 00:00: MOUTH [place] 00 TWICE Medical DAILY Branch NEEDED docusate 2021-0 Yes TAKE 1 [facility] 100 mg 9-15 CAPSULE BY ity of capsule 00:00: MOUTH [place] 00 TWICE Medical DAILY Branch NEEDED docusate 2021-0 Yes TAKE 1 [facility] 100 mg 9-15 CAPSULE BY ity of capsule 00:00: MOUTH [place] 00 TWICE Medical DAILY Branch NEEDED docusate 2021-0 Yes TAKE 1 [facility] 100 mg 9-15 CAPSULE BY ity of capsule 00:00: MOUTH [place] 00 TWICE Medical DAILY Branch NEEDED docusate 2021-0 Yes TAKE 1 [facility] 100 mg 9-15 CAPSULE BY ity of capsule 00:00: MOUTH 00 TWICE Medical DAILY Branch NEEDED docusate 202-0 Yes TAKE 1 [facility] 100 mg 9-15 CAPSULE BY ity of capsule 00:00: MOUTH 00 TWICE Medical DAILY Branch NEEDED docusate 202-0 Yes TAKE 1 [facility] 100 mg 9-15 CAPSULE BY ity of capsule 00:00: MOUTH 00 TWICE Medical DAILY Branch NEEDED docusate 202-0 Yes TAKE 1 [facility] 100 mg 9-15 CAPSULE BY ity of capsule 00:00: MOUTH 00 TWICE Medical DAILY Branch NEEDED docusate 2020-0 Yes TAKE 1 [facility] 100 mg 9-15 CAPSULE BY ity of capsule 00:00: MOUTH 00 TWICE Medical DAILY Branch NEEDED docusate 2021-0 Yes TAKE 1 [facility] 100 mg 9-15 CAPSULE BY ity of capsule 00:00: MOUTH 00 TWICE Medical DAILY Branch NEEDED docusate 2021-0 Yes TAKE 1 [facility] 100 mg 9-15 CAPSULE BY ity of capsule 00:00: MOUTH 00 TWICE Medical DAILY Branch NEEDED docusate 2021-0 Yes TAKE 1 [facility] 100 mg 9-15 CAPSULE BY ity of capsule 00:00: MOUTH [place] 00 TWICE Medical DAILY Branch NEEDED docusate 2021-0 Yes TAKE 1 [facility] 100 mg 9-15 CAPSULE BY ity of capsule 00:00: MOUTH [place] 00 TWICE Medical DAILY Branch NEEDED docusate 2021-0 Yes TAKE 1 [facility] 100 mg 9-15 CAPSULE BY ity of capsule 00:00: MOUTH [place] 00 TWICE Medical DAILY Branch NEEDED docusate 2021-0 Yes TAKE 1 [facility] 100 mg 9-15 CAPSULE BY ity of capsule 00:00: MOUTH [place] 00 TWICE Medical DAILY Branch NEEDED docusate 2021-0 Yes TAKE 1 [facility] 100 mg 9-15 CAPSULE BY ity of capsule 00:00: MOUTH [place] 00 TWICE Medical DAILY Branch NEEDED docusate 202-0 Yes TAKE 1 [facility] 100 mg 9-15 CAPSULE BY ity of capsule 00:00: MOUTH 00 TWICE Medical DAILY Branch NEEDED docusate 2020-0 Yes TAKE 1 [facility] 100 mg 9-15 CAPSULE BY ity of capsule 00:00: MOUTH 00 TWICE Medical DAILY Branch NEEDED docusate 202-0 Yes TAKE 1 [facility] 100 mg 9-15 CAPSULE BY ity of capsule 00:00: MOUTH 00 TWICE Medical DAILY Branch NEEDED docusate 2020-0 Yes TAKE 1 [facility] 100 mg 9-15 CAPSULE BY ity of capsule 00:00: MOUTH 00 TWICE Medical DAILY Branch NEEDED docusate 2020-0 Yes TAKE 1 [facility] 100 mg 9-15 CAPSULE BY ity of capsule 00:00: MOUTH 00 TWICE Medical DAILY Branch NEEDED docusate 2020-0 Yes TAKE 1 [facility] 100 mg 9-15 CAPSULE BY ity of capsule 00:00: MOUTH 00 TWICE Medical DAILY Branch NEEDED docusate 2020-0 Yes TAKE 1 [facility] 100 mg 9-15 CAPSULE BY ity of capsule 00:00: MOUTH 00 TWICE Medical DAILY Branch NEEDED docusate 2020-0 Yes TAKE 1 [facility] 100 mg 9-15 CAPSULE BY ity of capsule 00:00: MOUTH 00 TWICE Medical DAILY Branch NEEDED docusate 2020-0 Yes TAKE 1 [facility] 100 mg 9-15 CAPSULE BY ity of capsule 00:00: MOUTH 00 TWICE Medical DAILY Branch NEEDED docusate 202-0 Yes TAKE 1 [facility] 100 mg 9-15 CAPSULE BY ity of capsule 00:00: MOUTH 00 TWICE Medical DAILY Branch NEEDED docusate 2020-0 Yes TAKE 1 [facility] 100 mg 9-15 CAPSULE BY ity of capsule 00:00: MOUTH 00 TWICE Medical DAILY [facility] NEEDED docusate 2020-0 Yes TAKE 1 [facility] 100 mg 9-15 CAPSULE BY ity of capsule 00:00: MOUTH 00 TWICE Medical DAILY Branch NEEDED docusate 202-0 Yes TAKE 1 [facility] 100 mg 9-15 CAPSULE BY ity of capsule 00:00: MOUTH 00 TWICE Medical DAILY [facility] NEEDED docusate 202-0 Yes TAKE 1 [facility] 100 mg 9-15 CAPSULE BY ity of capsule 00:00: MOUTH [place] 00 TWICE Medical DAILY Branch NEEDED docusate 2020-0 Yes TAKE 1 [facility] 100 mg 9-15 CAPSULE BY ity of capsule 00:00: MOUTH [place] 00 TWICE Medical DAILY Branch NEEDED docusate 2020-0 Yes TAKE 1 [facility] 100 mg 9-15 CAPSULE BY ity of capsule 00:00: MOUTH [place] 00 TWICE Medical DAILY Branch NEEDED docusate 2020-0 Yes TAKE 1 [facility] 100 mg 9-15 CAPSULE BY ity of capsule 00:00: MOUTH [place] 00 TWICE Medical DAILY Branch NEEDED docusate 2020-0 Yes TAKE 1 [facility] 100 mg 9-15 CAPSULE BY ity of capsule 00:00: MOUTH 00 TWICE Medical DAILY Branch NEEDED docusate 2020-0 Yes TAKE 1 [facility] 100 mg 9-15 CAPSULE BY ity of capsule 00:00: MOUTH 00 TWICE Medical DAILY Branch NEEDED docusate 2020-0 Yes TAKE 1 [facility] 100 mg 9-15 CAPSULE BY ity of capsule 00:00: MOUTH 00 TWICE Medical DAILY [facility] NEEDED docusate 2020-0 Yes TAKE 1 [facility] 100 mg 9-15 CAPSULE BY ity of capsule 00:00: MOUTH 00 TWICE Medical DAILY Branch NEEDED docusate 2020-0 Yes TAKE 1 [facility] 100 mg 9-15 CAPSULE BY ity of capsule 00:00: MOUTH 00 TWICE Medical DAILY Branch NEEDED docusate 2020-0 Yes TAKE 1 [facility] 100 mg 9-15 CAPSULE BY ity of capsule 00:00: MOUTH 00 TWICE Medical DAILY [facility] NEEDED docusate 2020-0 Yes TAKE 1 [facility] 100 mg 9-15 CAPSULE BY ity of capsule 00:00: MOUTH [place] 00 TWICE Medical DAILY Branch NEEDED docusate 2020-0 Yes TAKE 1 [facility] 100 mg 9-15 CAPSULE BY ity of capsule 00:00: MOUTH 00 TWICE Medical DAILY [facility] NEEDED docusate 2020-0 Yes TAKE 1 [facility] 100 mg 9-15 CAPSULE BY ity of capsule 00:00: MOUTH [place] 00 TWICE Medical DAILY Branch NEEDED docusate 2020-0 Yes TAKE 1 [facility] 100 mg 9-15 CAPSULE BY ity of capsule 00:00: MOUTH [place] 00 TWICE Medical DAILY Branch NEEDED docusate 2020-0 Yes TAKE 1 [facility] 100 mg 9-15 CAPSULE BY ity of capsule 00:00: MOUTH [place] 00 TWICE Medical DAILY Branch NEEDED docusate 2021-0 Yes TAKE 1 [facility] 100 mg 9-15 CAPSULE BY ity of capsule 00:00: MOUTH [place] 00 TWICE Medical DAILY Branch NEEDED docusate 2021-0 Yes TAKE 1 [facility] 100 mg 9-15 CAPSULE BY ity of capsule 00:00: MOUTH 00 TWICE Medical DAILY Branch NEEDED docusate 2021-0 Yes TAKE 1 [facility] 100 mg 9-15 CAPSULE BY ity of capsule 00:00: MOUTH 00 TWICE Medical DAILY Branch NEEDED docusate 2021-0 Yes TAKE 1 [facility] 100 mg 9-15 CAPSULE BY ity of capsule 00:00: MOUTH 00 TWICE Medical DAILY Branch NEEDED docusate 202-0 Yes TAKE 1 [facility] 100 mg 9-15 CAPSULE BY ity of capsule 00:00: MOUTH 00 TWICE Medical DAILY [facility] NEEDED docusate 2020-0 Yes TAKE 1 [facility] 100 mg 9-15 CAPSULE BY ity of capsule 00:00: MOUTH 00 TWICE Medical DAILY Branch NEEDED docusate 202-0 Yes TAKE 1 [facility] 100 mg 9-15 CAPSULE BY ity of capsule 00:00: MOUTH 00 TWICE Medical DAILY Branch NEEDED docusate 2020-0 Yes TAKE 1 [facility] 100 mg 9-15 CAPSULE BY ity of capsule 00:00: MOUTH 00 TWICE Medical DAILY Branch NEEDED docusate 202-0 Yes TAKE 1 [facility] 100 mg 9-15 CAPSULE BY ity of capsule 00:00: MOUTH 00 TWICE Medical DAILY Branch NEEDED docusate 2021-0 Yes TAKE 1 [facility] 100 mg 9-15 CAPSULE BY ity of capsule 00:00: MOUTH 00 TWICE Medical DAILY Branch NEEDED docusate 2021-0 Yes TAKE 1 [facility] 100 mg 9-15 CAPSULE BY ity of capsule 00:00: MOUTH 00 TWICE Medical DAILY [facility] NEEDED docusate 1-0 Yes TAKE 1 [facility] 100 mg 9-15 CAPSULE BY ity of capsule 00:00: MOUTH 00 TWICE Medical DAILY Branch NEEDED docusate 202-0 Yes TAKE 1 [facility] 100 mg 9-15 CAPSULE BY ity of capsule 00:00: MOUTH 00 TWICE Medical DAILY Branch NEEDED docusate 2021-0 Yes TAKE 1 [facility] 100 mg 9-15 CAPSULE BY ity of capsule 00:00: MOUTH [place] 00 TWICE Medical DAILY Branch NEEDED docusate 2021-0 Yes TAKE 1 [facility] 100 mg 9-15 CAPSULE BY ity of capsule 00:00: MOUTH 00 TWICE Medical DAILY Branch NEEDED docusate 2020-0 Yes TAKE 1 [facility] 100 mg 9-15 CAPSULE BY ity of capsule 00:00: MOUTH 00 TWICE Medical DAILY Branch NEEDED docusate 202-0 Yes TAKE 1 [facility] 100 mg 9-15 CAPSULE BY ity of capsule 00:00: MOUTH 00 TWICE Medical DAILY Branch NEEDED docusate 2020-0 Yes TAKE 1 [facility] 100 mg 9-15 CAPSULE BY ity of capsule 00:00: MOUTH 00 TWICE Medical DAILY Branch NEEDED docusate 2020-0 Yes TAKE 1 [facility] 100 mg 9-15 CAPSULE BY ity of capsule 00:00: MOUTH 00 TWICE Medical DAILY Branch NEEDED docusate 2020-0 Yes TAKE 1 [facility] 100 mg 9-15 CAPSULE BY ity of capsule 00:00: MOUTH 00 TWICE Medical DAILY Branch NEEDED docusate 202-0 Yes TAKE 1 [facility] 100 mg 9-15 CAPSULE BY ity of capsule 00:00: MOUTH TWICE Medical DAILY Branch NEEDED docusate 2020-0 Yes TAKE 1 [facility] 100 mg 9-15 CAPSULE BY ity of capsule 00:00: MOUTH 00 TWICE Medical DAILY Branch NEEDED docusate 2020-0 Yes TAKE 1 [facility] 100 mg 9-15 CAPSULE BY ity of capsule 00:00: MOUTH 00 TWICE Medical DAILY Branch NEEDED docusate 202-0 Yes TAKE 1 [facility] 100 mg 9-15 CAPSULE BY ity of capsule 00:00: MOUTH TWICE Medical DAILY Branch NEEDED docusate 2020-0 Yes TAKE 1 [facility] 100 mg 9-15 CAPSULE BY ity of capsule 00:00: MOUTH 00 TWICE Medical DAILY Branch NEEDED docusate 2020-0 Yes TAKE 1 [facility] 100 mg 9-15 CAPSULE BY ity of capsule 00:00: MOUTH 00 TWICE Medical DAILY Branch NEEDED docusate 2020-0 Yes TAKE 1 [facility] 100 mg 9-15 CAPSULE BY ity of capsule 00:00: MOUTH 00 TWICE Medical DAILY Branch NEEDED nystatin 2020-0 Yes [id number] Apply to [facility] 100,000 7-19 area(s) 2 ity of unit/gram 00:00: (two) [place] ointment 00 times Medical daily. Branch nystatin 2021-0 Yes [id number] Apply to [facility] 100,000 7-19 area(s) 2 ity of unit/gram 00:00: (two) [place] ointment 00 times Medical daily. Branch nystatin 2021-0 Yes [id number] Apply to [facility] 100,000 7-19 area(s) 2 ity of unit/gram 00:00: (two) [place] ointment 00 times Medical daily. Branch nystatin 2021-0 Yes [id number] Apply to [facility] 100,000 7-19 area(s) 2 ity of unit/gram 00:00: (two) [place] ointment 00 times Medical daily. Branch nystatin 2021-0 Yes [id number] Apply to [facility] 100,000 7-19 area(s) 2 ity of unit/gram 00:00: (two) [place] ointment 00 times Medical daily. Branch nystatin 2021-0 Yes [id number] Apply to [facility] 100,000 7-19 area(s) 2 ity of unit/gram 00:00: (two) [place] ointment 00 times Medical daily. Branch nystatin 2021-0 Yes [id number] Apply to [facility] 100,000 7-19 area(s) 2 ity of unit/gram 00:00: (two) [place] ointment 00 times Medical daily. Branch nystatin 2021-0 Yes [id number] Apply to [facility] 100,000 7-19 area(s) 2 ity of unit/gram 00:00: (two) [place] ointment 00 times Medical daily. Branch nystatin 2021-0 Yes [id number] Apply to [facility] 100,000 7-19 area(s) 2 ity of unit/gram 00:00: (two) [place] ointment 00 times Medical daily. Branch nystatin 2021-0 Yes [id number] Apply to [facility] 100,000 7-19 area(s) 2 ity of unit/gram 00:00: (two) [place] ointment 00 times Medical daily. Branch nystatin 2021-0 Yes [id number] Apply to [facility] 100,000 7-19 area(s) 2 ity of unit/gram 00:00: (two) [place] ointment 00 times Medical daily. Branch nystatin 2021-0 Yes [id number] Apply to [facility] 100,000 7-19 area(s) 2 ity of unit/gram 00:00: (two) [place] ointment 00 times Medical daily. Branch nystatin 1-0 Yes [id number] Apply to [facility] 100,000 7-19 area(s) 2 ity of unit/gram 00:00: (two) [place] ointment 00 times Medical daily. Branch nystatin 1-0 Yes [id number] Apply to [facility] 100,000 7-19 area(s) 2 ity of unit/gram 00:00: (two) [place] ointment 00 times Medical daily. Branch nystatin 1-0 Yes [id number] Apply to [facility] 100,000 7-19 area(s) 2 ity of unit/gram 00:00: (two) [place] ointment 00 times Medical daily. Branch nystatin 1-0 Yes [id number] Apply to [facility] 100,000 7-19 area(s) 2 ity of unit/gram 00:00: (two) [place] ointment 00 times Medical daily. Branch nystatin 1-0 Yes [id number] Apply to [facility] 100,000 7-19 area(s) 2 ity of unit/gram 00:00: (two) [place] ointment 00 times Medical daily. Branch nystatin 1-0 Yes [id number] Apply to [facility] 100,000 7-19 area(s) 2 ity of unit/gram 00:00: (two) [place] ointment 00 times Medical daily. Branch nystatin 1-0 Yes [id number] Apply to [facility] 100,000 7-19 area(s) 2 ity of unit/gram 00:00: (two) [place] ointment 00 times Medical daily. Branch nystatin 1-0 Yes [id number] Apply to [facility] 100,000 7-19 area(s) 2 ity of unit/gram 00:00: (two) [place] ointment 00 times Medical daily. Branch nystatin 2021-0 Yes [id number] Apply to [facility] 100,000 7-19 area(s) 2 ity of unit/gram 00:00: (two) [place] ointment 00 times Medical daily. Branch nystatin 2021-0 Yes [id number] Apply to [facility] 100,000 7-19 area(s) 2 ity of unit/gram 00:00: (two) [place] ointment 00 times Medical daily. Branch nystatin 2021-0 Yes [id number] Apply to [facility] 100,000 7-19 area(s) 2 ity of unit/gram 00:00: (two) [place] ointment 00 times Medical daily. Branch nystatin 1-0 Yes [id number] Apply to [facility] 100,000 7-19 area(s) 2 ity of unit/gram 00:00: (two) [place] ointment 00 times Medical daily. Branch nystatin 2021-0 Yes [id number] Apply to [facility] 100,000 7-19 area(s) 2 ity of unit/gram 00:00: (two) [place] ointment 00 times Medical daily. Branch nystatin 1-0 Yes [id number] Apply to [facility] 100,000 7-19 area(s) 2 ity of unit/gram 00:00: (two) [place] ointment 00 times Medical daily. Branch nystatin 1-0 Yes [id number] Apply to [facility] 100,000 7-19 area(s) 2 ity of unit/gram 00:00: (two) [place] ointment 00 times Medical daily. Branch nystatin 1-0 Yes [id number] Apply to [facility] 100,000 7-19 area(s) 2 ity of unit/gram 00:00: (two) [place] ointment 00 times Medical daily. Branch nystatin 1-0 Yes [id number] Apply to [facility] 100,000 7-19 area(s) 2 ity of unit/gram 00:00: (two) [place] ointment 00 times Medical daily. Branch nystatin 1-0 Yes [id number] Apply to [facility] 100,000 7-19 area(s) 2 ity of unit/gram 00:00: (two) [place] ointment 00 times Medical daily. Branch nystatin 2021-0 Yes [id number] [facility] to [facility] 100,000 7-19 area(s) 2 ity of unit/gram 00:00: (two) [place] ointment 00 times Medical daily. Branch nystatin 2021-0 Yes [id number] Apply to [facility] 100,000 7-19 area(s) 2 ity of unit/gram 00:00: (two) [place] ointment 00 times Medical daily. Branch nystatin 1-0 Yes [id number] Apply to [facility] 100,000 7-19 area(s) 2 ity of unit/gram 00:00: (two) [place] ointment 00 times Medical daily. Branch nystatin 1-0 Yes [id number] Apply to [facility] 100,000 7-19 area(s) 2 ity of unit/gram 00:00: (two) [place] ointment 00 times Medical daily. Branch nystatin 2021-0 Yes [id number] Apply to [facility] 100,000 7-19 area(s) 2 ity of unit/gram 00:00: (two) [place] ointment 00 times Medical daily. Branch nystatin 2021-0 Yes [id number] Apply to [facility] 100,000 7-19 area(s) 2 ity of unit/gram 00:00: (two) [place] ointment 00 times Medical daily. Branch nystatin 2021-0 Yes [id number] Apply to [facility] 100,000 7-19 area(s) 2 ity of unit/gram 00:00: (two) [place] ointment 00 times Medical daily. Branch nystatin 1-0 Yes [id number] Apply to [facility] 100,000 7-19 area(s) 2 ity of unit/gram 00:00: (two) [place] ointment 00 times Medical daily. Branch nystatin 1-0 Yes [id number] Apply to [facility] 100,000 7-19 area(s) 2 ity of unit/gram 00:00: (two) [place] ointment 00 times Medical daily. Branch nystatin 2021-0 Yes [id number] Apply to [facility] 100,000 7-19 area(s) 2 ity of unit/gram 00:00: (two) [place] ointment 00 times Medical daily. Branch nystatin 2021-0 Yes [id number] Apply to [facility] 100,000 7-19 area(s) 2 ity of unit/gram 00:00: (two) [place] ointment 00 times Medical daily. Branch nystatin 2021-0 Yes [id number] Apply to [facility] 100,000 7-19 area(s) 2 ity of unit/gram 00:00: (two) [place] ointment 00 times Medical daily. Branch nystatin 2021-0 Yes [id number] Apply to [facility] 100,000 7-19 area(s) 2 ity of unit/gram 00:00: (two) [place] ointment 00 times Medical daily. Branch nystatin 2021-0 Yes [id number] Apply to [facility] 100,000 7-19 area(s) 2 ity of unit/gram 00:00: (two) [place] ointment 00 times Medical daily. Branch nystatin 2021-0 Yes [id number] Apply to [facility] 100,000 7-19 area(s) 2 ity of unit/gram 00:00: (two) [place] ointment 00 times Medical daily. Branch nystatin 2021-0 Yes [id number] Apply to [facility] 100,000 7-19 area(s) 2 ity of unit/gram 00:00: (two) [place] ointment 00 times Medical daily. Branch nystatin 2021-0 Yes [id number] Apply to [facility] 100,000 7-19 area(s) 2 ity of unit/gram 00:00: (two) [place] ointment 00 times Medical daily. Branch nystatin 2021-0 Yes [id number] Apply to [facility] 100,000 7-19 area(s) 2 ity of unit/gram 00:00: (two) [place] ointment 00 times Medical daily. Branch nystatin 1-0 Yes [id number] Apply to [facility] 100,000 7-19 area(s) 2 ity of unit/gram 00:00: (two) [place] ointment 00 times Medical daily. Branch nystatin 2021-0 Yes [id number] Apply to [facility] 100,000 7-19 area(s) 2 ity of unit/gram 00:00: (two) [place] ointment 00 times Medical daily. Branch nystatin 2021-0 Yes [id number] Apply to [facility] 100,000 7-19 area(s) 2 ity of unit/gram 00:00: (two) [place] ointment 00 times Medical daily. Branch nystatin 2021-0 Yes [id number] Apply to [facility] 100,000 7-19 area(s) 2 ity of unit/gram 00:00: (two) [place] ointment 00 times Medical daily. Branch nystatin 2021-0 Yes [id number] Apply to [facility] 100,000 7-19 area(s) 2 ity of unit/gram 00:00: (two) [place] ointment 00 times Medical daily. Branch nystatin 2021-0 Yes [id number] Apply to [facility] 100,000 7-19 area(s) 2 ity of unit/gram 00:00: (two) [place] ointment 00 times Medical daily. Branch nystatin 2021-0 Yes [id number] Apply to [facility] 100,000 7-19 area(s) 2 ity of unit/gram 00:00: (two) [place] ointment 00 times Medical daily. Branch nystatin 2021-0 Yes [id number] Apply to [facility] 100,000 7-19 area(s) 2 ity of unit/gram 00:00: (two) [place] ointment 00 times Medical daily. Branch nystatin 2021-0 Yes [id number] Apply to [facility] 100,000 7-19 area(s) 2 ity of unit/gram 00:00: (two) [place] ointment 00 times Medical daily. Branch nystatin 2021-0 Yes [id number] Apply to [facility] 100,000 7-19 area(s) 2 ity of unit/gram 00:00: (two) [place] ointment 00 times Medical daily. Branch nystatin 1-0 Yes [id number] Apply to [facility] 100,000 7-19 area(s) 2 ity of unit/gram 00:00: (two) [place] ointment 00 times Medical daily. Branch nystatin 2021-0 Yes [id number] Apply to [facility] 100,000 7-19 area(s) 2 ity of unit/gram 00:00: (two) [place] ointment 00 times Medical daily. Branch nystatin 2021-0 Yes [id number] Apply to [facility] 100,000 7-19 area(s) 2 ity of unit/gram 00:00: (two) [place] ointment 00 times Medical daily. Branch nystatin 2021-0 Yes [id number] Apply to [facility] 100,000 7-19 area(s) 2 ity of unit/gram 00:00: (two) [place] ointment 00 times Medical daily. Branch nystatin 2021-0 Yes [id number] Apply to [facility] 100,000 7-19 area(s) 2 ity of unit/gram 00:00: (two) [place] ointment 00 times Medical daily. Branch nystatin 2021-0 Yes [id number] Apply to [facility] 100,000 7-19 area(s) 2 ity of unit/gram 00:00: (two) [place] ointment 00 times Medical daily. Branch nystatin 2021-0 Yes [id number] Apply to [facility] 100,000 7-19 area(s) 2 ity of unit/gram 00:00: (two) [place] ointment 00 times Medical daily. Branch nystatin 2021-0 Yes [id number] Apply to [facility] 100,000 7-19 area(s) 2 ity of unit/gram 00:00: (two) [place] ointment 00 times Medical daily. Branch nystatin 2021-0 Yes [id number] Apply to [facility] 100,000 7-19 area(s) 2 ity of unit/gram 00:00: (two) [place] ointment 00 times Medical daily. Branch nystatin 2021-0 Yes [id number] Apply to [facility] 100,000 7-19 area(s) 2 ity of unit/gram 00:00: (two) [place] ointment 00 times Medical daily. Branch nystatin 1-0 Yes [id number] Apply to [facility] 100,000 7-19 area(s) 2 ity of unit/gram 00:00: (two) [place] ointment 00 times Medical daily. Branch nystatin 1-0 Yes [id number] Apply to [facility] 100,000 7-19 area(s) 2 ity of unit/gram 00:00: (two) [place] ointment 00 times Medical daily. Branch nystatin 2021-0 Yes [id number] Apply to [facility] 100,000 7-19 area(s) 2 ity of unit/gram 00:00: (two) [place] ointment 00 times Medical daily. Branch nystatin 1-0 Yes [id number] Apply to [facility] 100,000 7-19 area(s) 2 ity of unit/gram 00:00: (two) [place] ointment 00 times Medical daily. Branch nystatin 2021-0 Yes [id number] Apply to [facility] 100,000 7-19 area(s) 2 ity of unit/gram 00:00: (two) [place] ointment 00 times Medical daily. Branch nystatin 2021-0 Yes [id number] Apply to [facility] 100,000 7-19 area(s) 2 ity of unit/gram 00:00: (two) [place] ointment 00 times Medical daily. Branch nystatin 2020-0 Yes [id number] Apply to [facility] 100,000 7-19 area(s) 2 ity of unit/gram 00:00: (two) [place] ointment 00 times Medical daily. Branch nystatin 2020-0 Yes [id number] Apply to [facility] 100,000 7-19 area(s) 2 ity of unit/gram 00:00: (two) [place] ointment 00 times Medical daily. Branch nystatin 2020-0 Yes [id number] Apply to [facility] 100,000 7-19 area(s) 2 ity of unit/gram 00:00: (two) [place] ointment 00 times Medical daily. Branch Alcohol 2020-0 Yes [id number] Use to [facility] vers Swabs 7-28 test blood ity of (ALCOHOL 00:00: sugar 4 [place] PREP PADS) 00 times Medical PadM daily Branch Alcohol 2020-0 Yes [id number] Use to [facility] vers Swabs 7-28 test blood ity of (ALCOHOL 00:00: sugar 4 [place] PREP PADS) 00 times Medical PadM daily Branch Alcohol 2020-0 Yes [id number] Use to [facility] vers Swabs 7-28 test blood ity of (ALCOHOL 00:00: sugar 4 [place] PREP PADS) 00 times Medical PadM daily Branch Alcohol 2020-0 Yes [id number] Use to [facility] vers Swabs 7-28 test blood ity of (ALCOHOL 00:00: sugar 4 [place] PREP PADS) 00 times Medical PadM daily Branch Alcohol 2020-0 Yes [id number] Use to [facility] vers Swabs 7-28 test blood ity of (ALCOHOL 00:00: sugar 4 [place] PREP PADS) 00 times Medical PadM daily Branch Alcohol 2020-0 Yes [id number] Use to [facility] vers Swabs 7-28 test blood ity of (ALCOHOL 00:00: sugar 4 [place] PREP PADS) 00 times Medical PadM daily Branch Alcohol 2020-0 Yes [id number] Use to [facility] vers Swabs 7-28 test blood ity of (ALCOHOL 00:00: sugar 4 [place] PREP PADS) 00 times Medical PadM daily Branch Alcohol 2020-0 Yes [id number] Use to [facility] vers Swabs 7-28 test blood ity of (ALCOHOL 00:00: sugar 4 [place] PREP PADS) 00 times Medical PadM daily Branch Alcohol 2020-0 Yes [id number] Use to [facility] vers Swabs 7-28 test blood ity of (ALCOHOL 00:00: sugar 4 [place] PREP PADS) 00 times Medical PadM daily Branch Alcohol 2020-0 Yes [id number] Use to [facility] vers Swabs 7-28 test blood ity of (ALCOHOL 00:00: sugar 4 [place] PREP PADS) 00 times Medical PadM daily Branch Alcohol 2020-0 Yes [id number] Use to [facility] vers Swabs 7-28 test blood ity of (ALCOHOL 00:00: sugar 4 [place] PREP PADS) 00 times Medical PadM daily Branch Alcohol 2020-0 Yes [id number] Use to [facility] vers Swabs 7-28 test blood ity of (ALCOHOL 00:00: sugar 4 [place] PREP PADS) 00 times Medical PadM daily Branch Alcohol 2020-0 Yes [id number] Use to [facility] vers Swabs 7-28 test blood ity of (ALCOHOL 00:00: sugar 4 [place] PREP PADS) 00 times Medical PadM daily Branch Alcohol 2020-0 Yes [id number] Use to [facility] vers Swabs 7-28 test blood ity of (ALCOHOL 00:00: sugar 4 [place] PREP PADS) 00 times Medical PadM daily Branch Alcohol 2020-0 Yes [id number] Use to [facility] vers Swabs 7-28 test blood ity of (ALCOHOL 00:00: sugar 4 [place] PREP PADS) 00 times Medical PadM daily Branch Alcohol 2020-0 Yes [id number] Use to [facility] vers Swabs 7-28 test blood ity of (ALCOHOL 00:00: sugar 4 [place] PREP PADS) 00 times Medical PadM daily Branch Alcohol 2020-0 Yes [id number] Use to [facility] vers Swabs 7-28 test blood ity of (ALCOHOL 00:00: sugar 4 [place] PREP PADS) 00 times Medical PadM daily Branch Alcohol 2020-0 Yes [id number] Use to [facility] vers Swabs 7-28 test blood ity of (ALCOHOL 00:00: sugar 4 [place] PREP PADS) 00 times Medical PadM daily Branch Alcohol 2020-0 Yes [id number] Use to [facility] vers Swabs 7-28 test blood ity of (ALCOHOL 00:00: sugar 4 [place] PREP PADS) 00 times Medical PadM daily Branch Alcohol 2020-0 Yes [id number] Use to [facility] vers Swabs 7-28 test blood ity of (ALCOHOL 00:00: sugar 4 [place] PREP PADS) 00 times Medical PadM daily Branch Alcohol 2020-0 Yes [id number] Use to [facility] vers Swabs 7-28 test blood ity of (ALCOHOL 00:00: sugar 4 [place] PREP PADS) 00 times Medical PadM daily Branch Alcohol 2020-0 Yes [id number] Use to [facility] vers Swabs 7-28 test blood ity of (ALCOHOL 00:00: sugar 4 [place] PREP PADS) 00 times Medical PadM daily Branch Alcohol 2020-0 Yes [id number] Use to [facility] vers Swabs 7-28 test blood ity of (ALCOHOL 00:00: sugar 4 [place] PREP PADS) 00 times Medical PadM daily Branch Alcohol 2020-0 Yes [id number] Use to [facility] vers Swabs 7-28 test blood ity of (ALCOHOL 00:00: sugar 4 [place] PREP PADS) 00 times Medical PadM daily Branch Alcohol 2020-0 Yes [id number] Use to [facility] vers Swabs 7-28 test blood ity of (ALCOHOL 00:00: sugar 4 [place] PREP PADS) 00 times Medical PadM daily Branch Alcohol 2020-0 Yes [id number] Use to [facility] vers Swabs 7-28 test blood ity of (ALCOHOL 00:00: sugar 4 [place] PREP PADS) 00 times Medical PadM daily Branch Alcohol 2020-0 Yes [id number] Use to [facility] vers Swabs 7-28 test blood ity of (ALCOHOL 00:00: sugar 4 [place] PREP PADS) 00 times Medical PadM daily Branch Alcohol 2020-0 Yes [id number] Use to [facility] vers Swabs 7-28 test blood ity of (ALCOHOL 00:00: sugar 4 [place] PREP PADS) 00 times Medical PadM daily Branch Alcohol 2020-0 Yes [id number] Use to [facility] vers Swabs 7-28 test blood ity of (ALCOHOL 00:00: sugar 4 [place] PREP PADS) 00 times Medical PadM daily Branch Alcohol 2020-0 Yes [id number] Use to [facility] vers Swabs 7-28 test blood ity of (ALCOHOL 00:00: sugar 4 [place] PREP PADS) 00 times Medical PadM daily Branch Alcohol 2020-0 Yes [id number] Use to [facility] vers Swabs 7-28 test blood ity of (ALCOHOL 00:00: sugar 4 [place] PREP PADS) 00 times Medical PadM daily Branch Alcohol 2020-0 Yes [id number] Use to [facility] vers Swabs 7-28 test blood ity of (ALCOHOL 00:00: sugar 4 [place] PREP PADS) 00 times Medical PadM daily Branch Alcohol 2020-0 Yes [id number] Use to [facility] vers Swabs 7-28 test blood ity of (ALCOHOL 00:00: sugar 4 [place] PREP PADS) 00 times Medical PadM daily Branch Alcohol 2020-0 Yes [id number] Use to [facility] vers Swabs 7-28 test blood ity of (ALCOHOL 00:00: sugar 4 [place] PREP PADS) 00 times Medical PadM daily Branch Alcohol 2020-0 Yes [id number] Use to [facility] vers Swabs 7-28 test blood ity of (ALCOHOL 00:00: sugar 4 [place] PREP PADS) 00 times Medical PadM daily Branch Alcohol 2020-0 Yes [id number] Use to [facility] vers Swabs 7-28 test blood ity of (ALCOHOL 00:00: sugar 4 [place] PREP PADS) 00 times Medical PadM daily Branch Alcohol 2020-0 Yes [id number] Use to [facility] vers Swabs 7-28 test blood ity of (ALCOHOL 00:00: sugar 4 [place] PREP PADS) 00 times Medical PadM daily Branch Alcohol 2020-0 Yes [id number] Use to [facility] vers Swabs 7-28 test blood ity of (ALCOHOL 00:00: sugar 4 [place] PREP PADS) 00 times Medical PadM daily Branch Alcohol 2020-0 Yes [id number] Use to [facility] vers Swabs 7-28 test blood ity of (ALCOHOL 00:00: sugar 4 [place] PREP PADS) 00 times Medical PadM daily Branch Alcohol 2020-0 Yes [id number] Use to [facility] vers Swabs 7-28 test blood ity of (ALCOHOL 00:00: sugar 4 [place] PREP PADS) 00 times Medical PadM daily Branch Alcohol 2020-0 Yes [id number] Use to [facility] vers Swabs 7-28 test blood ity of (ALCOHOL 00:00: sugar 4 [place] PREP PADS) 00 times Medical PadM daily Branch Alcohol 2020-0 Yes [id number] Use to [facility] vers Swabs 7-28 test blood ity of (ALCOHOL 00:00: sugar 4 [place] PREP PADS) 00 times Medical PadM daily Branch Alcohol 2020-0 Yes [id number] Use to [facility] vers Swabs 7-28 test blood ity of (ALCOHOL 00:00: sugar 4 [place] PREP PADS) 00 times Medical PadM daily Branch Alcohol 2020-0 Yes [id number] Use to [facility] vers Swabs 7-28 test blood ity of (ALCOHOL 00:00: sugar 4 [place] PREP PADS) 00 times Medical PadM daily Branch Alcohol 2020-0 Yes [id number] Use to [facility] vers Swabs 7-28 test blood ity of (ALCOHOL 00:00: sugar 4 [place] PREP PADS) 00 times Medical PadM daily Branch Alcohol 2020-0 Yes [id number] Use to [facility] vers Swabs 7-28 test blood ity of (ALCOHOL 00:00: sugar 4 [place] PREP PADS) 00 times Medical PadM daily Branch Alcohol 2020-0 Yes [id number] Use to [facility] vers Swabs 7-28 test blood ity of (ALCOHOL 00:00: sugar 4 [place] PREP PADS) 00 times Medical PadM daily Branch Alcohol 2020-0 Yes [id number] Use to [facility] vers Swabs 7-28 test blood ity of (ALCOHOL 00:00: sugar 4 [place] PREP PADS) 00 times Medical PadM daily Branch Alcohol 2020-0 Yes [id number] Use to [facility] vers Swabs 7-28 test blood ity of (ALCOHOL 00:00: sugar 4 [place] PREP PADS) 00 times Medical PadM daily Branch Alcohol 2020-0 Yes [id number] Use to [facility] vers Swabs 7-28 test blood ity of (ALCOHOL 00:00: sugar 4 [place] PREP PADS) 00 times Medical PadM daily Branch Alcohol 2020-0 Yes [id number] Use to [facility] vers Swabs 7-28 test blood ity of (ALCOHOL 00:00: sugar 4 [place] PREP PADS) 00 times Medical PadM daily Branch Alcohol 2020-0 Yes [id number] Use to [facility] vers Swabs 7-28 test blood ity of (ALCOHOL 00:00: sugar 4 [place] PREP PADS) 00 times Medical PadM daily Branch Alcohol 2020-0 Yes [id number] Use to [facility] vers Swabs 7-28 test blood ity of (ALCOHOL 00:00: sugar 4 [place] PREP PADS) 00 times Medical PadM daily Branch Alcohol 2020-0 Yes [id number] Use to [facility] vers Swabs 7-28 test blood ity of (ALCOHOL 00:00: sugar 4 [place] PREP PADS) 00 times Medical PadM daily Branch Alcohol 2020-0 Yes [id number] Use to [facility] vers Swabs 7-28 test blood ity of (ALCOHOL 00:00: sugar 4 [place] PREP PADS) 00 times Medical PadM daily Branch Alcohol 2020-0 Yes [id number] Use to [facility] vers Swabs 7-28 test blood ity of (ALCOHOL 00:00: sugar 4 [place] PREP PADS) 00 times Medical PadM daily Branch Alcohol 2020-0 Yes [id number] Use to [facility] vers Swabs 7-28 test blood ity of (ALCOHOL 00:00: sugar 4 [place] PREP PADS) 00 times Medical PadM daily Branch Alcohol 2020-0 Yes [id number] Use to [facility] vers Swabs 7-28 test blood ity of (ALCOHOL 00:00: sugar 4 [place] PREP PADS) 00 times Medical PadM daily Branch Alcohol 2020-0 Yes [id number] Use to [facility] vers Swabs 7-28 test blood ity of (ALCOHOL 00:00: sugar 4 [place] PREP PADS) 00 times Medical PadM daily Branch Alcohol 2020-0 Yes [id number] Use to [facility] vers Swabs 7-28 test blood ity of (ALCOHOL 00:00: sugar 4 [place] PREP PADS) 00 times Medical PadM daily Branch Alcohol 2020-0 Yes [id number] Use to [facility] vers Swabs 7-28 test blood ity of (ALCOHOL 00:00: sugar 4 [place] PREP PADS) 00 times Medical PadM daily Branch Alcohol 2020-0 Yes [id number] Use to [facility] vers Swabs 7-28 test blood ity of (ALCOHOL 00:00: sugar 4 [place] PREP PADS) 00 times Medical PadM daily Branch Alcohol 2020-0 Yes [id number] Use to [facility] vers Swabs 7-28 test blood ity of (ALCOHOL 00:00: sugar 4 [place] PREP PADS) 00 times Medical PadM daily Branch Alcohol 2020-0 Yes [id number] Use to [facility] vers Swabs 7-28 test blood ity of (ALCOHOL 00:00: sugar 4 [place] PREP PADS) 00 times Medical PadM daily Branch Alcohol 2020-0 Yes [id number] Use to [facility] vers Swabs 7-28 test blood ity of (ALCOHOL 00:00: sugar 4 [place] PREP PADS) 00 times Medical PadM daily Branch Alcohol 2020-0 Yes [id number] Use to [facility] vers Swabs 7-28 test blood ity of (ALCOHOL 00:00: sugar 4 [place] PREP PADS) 00 times Medical PadM daily Branch Alcohol 2020-0 Yes [id number] Use to [facility] vers Swabs 7-28 test blood ity of (ALCOHOL 00:00: sugar 4 [place] PREP PADS) 00 times Medical PadM daily Branch Alcohol 2020-0 Yes [id number] Use to [facility] vers Swabs 7-28 test blood ity of (ALCOHOL 00:00: sugar 4 [place] PREP PADS) 00 times Medical PadM daily Branch Alcohol 2020-0 Yes [id number] Use to [facility] vers Swabs 7-28 test blood ity of (ALCOHOL 00:00: sugar 4 [place] PREP PADS) 00 times Medical PadM daily Branch Alcohol 2020-0 Yes [id number] Use to [facility] vers Swabs 7-28 test blood ity of (ALCOHOL 00:00: sugar 4 [place] PREP PADS) 00 times Medical PadM daily Branch Alcohol 2020-0 Yes [id number] Use to [facility] vers Swabs 7-28 test blood ity of (ALCOHOL 00:00: sugar 4 [place] PREP PADS) 00 times Medical PadM daily Branch Alcohol 2020-0 Yes [id number] Use to [facility] vers Swabs 7-28 test blood ity of (ALCOHOL 00:00: sugar 4 [place] PREP PADS) 00 times Medical PadM daily Branch Alcohol 2020-0 Yes [id number] Use to [facility] vers Swabs 7-28 test blood ity of (ALCOHOL 00:00: sugar 4 [place] PREP PADS) 00 times Medical PadM daily Branch Alcohol 2020-0 Yes [id number] Use to [facility] vers Swabs 7-28 test blood ity of (ALCOHOL 00:00: sugar 4 [place] PREP PADS) 00 times Medical PadM daily Branch Alcohol 2020-0 Yes [id number] Use to [facility] vers Swabs 7-28 test blood ity of (ALCOHOL 00:00: sugar 4 [place] PREP PADS) 00 times Medical PadM daily Branch Alcohol 2020-0 Yes [id number] Use to [facility] vers Swabs 7-28 test blood ity of (ALCOHOL 00:00: sugar 4 [place] PREP PADS) 00 times Medical PadM daily Branch Alcohol 2020-0 Yes [id number] Use to [facility] vers Swabs 7-28 test blood ity of (ALCOHOL 00:00: sugar 4 [place] PREP PADS) 00 times Medical PadM daily Branch LANCING 2019- Yes [id number] Use with [facility] n[facility] DEVICE Misc 8-27 lancets to it y of 00:00: check blood Medical glucose Branch LANCING 2019-0 Yes [id number] Use with [facility] nivers DEVICE Misc 8-27 lancets to it y of 00:00: check blood Medical glucose Branch LANCING 2019-0 Yes [id number] Use with [facility] n[facility] DEVICE Misc 8-27 lancets to it y of 00:00: check blood Medical glucose Branch LANCING 2019-0 Yes [id number] Use with [facility] nivers DEVICE Misc 8-27 lancets to it y of 00:00: check blood Medical glucose Branch LANCING 2019-0 Yes [id number] Use with [facility] nivers DEVICE Misc 8-27 lancets to it y of 00:00: check blood Medical glucose Branch LANCING 2019-0 Yes [id number] Use with [facility] nivers DEVICE Misc 8-27 lancets to it y of 00:00: check blood Medical glucose Branch LANCING 2019-0 Yes [id number] Use with [facility] DEVICE Misc 8-27 lancets to it y of 00:00: check [place] blood Medical glucose Branch LANCING 2019-0 Yes [id number] Use with [facility] n[facility] DEVICE Misc 8-27 lancets to it y of 00:00: check [place] blood Medical glucose Branch LANCING 2019-0 Yes [id number] Use with [facility] nivers DEVICE Misc 8-27 lancets to it y of 00:00: check [place] blood Medical glucose Branch LANCING 2019-0 Yes [id number] Use with [facility] nivers DEVICE Misc 8-27 lancets to it y of 00:00: check [place] blood Medical glucose Branch LANCING 2019-0 Yes [id number] Use with [facility] nivers DEVICE Misc 8-27 lancets to it y of 00:00: check [place] blood Medical glucose Branch LANCING 2019-0 Yes [id number] Use with [facility] n[facility] DEVICE Misc 8-27 lancets to it y of 00:00: check [place] blood Medical glucose Branch LANCING 2019-0 Yes [id number] Use with [facility] DEVICE Misc 8-27 lancets to it y of 00:00: check [place] blood Medical glucose Branch LANCING 2019-0 Yes [id number] Use with [facility] DEVICE Misc 8-27 lancets to it y of 00:00: check [place] blood Medical glucose Branch LANCING 2019-0 Yes [id number] Use with [facility] DEVICE Misc 8-27 lancets to it y of 00:00: check [place] blood Medical glucose Branch LANCING 2019-0 Yes [id number] Use with [facility] DEVICE Misc 8-27 lancets to it y of 00:00: check [place] blood Medical glucose Branch LANCING 2019-0 Yes [id number] Use with [facility] DEVICE Misc 8-27 lancets to it y of 00:00: check [place] blood Medical glucose Branch LANCING 2019-0 Yes [id number] Use with [facility] DEVICE Misc 8-27 lancets to it y of 00:00: check [place] blood Medical glucose Branch LANCING 2019-0 Yes [id number] Use with [facility] DEVICE Misc 8-27 lancets to it y of 00:00: check blood Medical glucose Branch LANCING 2019-0 Yes [id number] Use with [facility] DEVICE Misc 8-27 lancets to it y of 00:00: check blood Medical glucose Branch LANCING 2019-0 Yes [id number] Use with [facility] DEVICE Misc 8-27 lancets to it y of 00:00: check blood Medical glucose Branch LANCING 2019-0 Yes [id number] Use with [facility] DEVICE Misc 8-27 lancets to it y of 00:00: check [place] blood Medical glucose Branch LANCING 2019-0 Yes [id number] Use with [facility] DEVICE Misc 8-27 lancets to it y of 00:00: check blood Medical glucose Branch LANCING 2019-0 Yes [id number] Use with [facility] DEVICE Misc 8-27 lancets to it y of 00:00: check [place] blood Medical glucose Branch LANCING 2019-0 Yes [id number] Use with [facility] DEVICE Misc 8-27 lancets to it y of 00:00: check [place] blood Medical glucose Branch LANCING 2019-0 Yes [id number] Use with [facility] DEVICE Misc 8-27 lancets to it y of 00:00: check [place] blood Medical glucose Branch LANCING 2019-0 Yes [id number] Use with [facility] DEVICE Misc 8-27 lancets to it y of 00:00: check [place] blood Medical glucose Branch LANCING 2019-0 Yes [id number] Use with [facility] DEVICE Misc 8-27 lancets to it y of 00:00: check [place] blood Medical glucose Branch LANCING 2019-0 Yes [id number] Use with [facility] DEVICE Misc 8-27 lancets to it y of 00:00: check [place] blood Medical glucose Branch LANCING 2019-0 Yes [id number] Use with [facility] DEVICE Misc 8-27 lancets to it y of 00:00: check [place] blood Medical glucose Branch LANCING 2019-0 Yes [id number] Use with [facility] DEVICE Misc 8-27 lancets to it y of 00:00: check [place] blood Medical glucose Branch LANCING 2019-0 Yes [id number] Use with [facility] DEVICE Misc 8-27 lancets to it y of 00:00: check [place] blood Medical glucose Branch LANCING 2019-0 Yes [id number] Use with [facility] DEVICE Misc 8-27 lancets to it y of 00:00: check [place] blood Medical glucose Branch LANCING 2019-0 Yes [id number] Use with [facility] DEVICE Misc 8-27 lancets to it y of 00:00: check [place] blood Medical glucose Branch LANCING 2019-0 Yes [id number] Use with [facility] DEVICE Misc 8-27 lancets to it y of 00:00: check [place] blood Medical glucose Branch LANCING 2019-0 Yes [id number] Use with [facility] DEVICE Misc 8-27 lancets to it y of 00:00: check [place] blood Medical glucose Branch LANCING 2019-0 Yes [id number] Use with [facility] DEVICE Misc 8-27 lancets to it y of 00:00: check [place] blood Medical glucose Branch LANCING 2019-0 Yes [id number] Use with [facility] DEVICE Misc 8-27 lancets to it y of 00:00: check [place] blood Medical glucose Branch LANCING 2019-0 Yes [id number] Use with [facility] DEVICE Misc 8-27 lancets to it y of 00:00: check [place] blood Medical glucose Branch LANCING 2019-0 Yes [id number] Use with [facility] DEVICE Misc 8-27 lancets to it y of 00:00: check [place] blood Medical glucose Branch LANCING 2019-0 Yes [id number] Use with [facility] DEVICE Misc 8-27 lancets to it y of 00:00: check [place] blood Medical glucose Branch LANCING 2019-0 Yes [id number] Use with [facility] DEVICE Misc 8-27 lancets to it y of 00:00: check [place] blood Medical glucose Branch LANCING 2019-0 Yes [id number] Use with [facility] nivers DEVICE Misc 8-27 lancets to it y of 00:00: check [place] blood Medical glucose Branch LANCING 2019-0 Yes [id number] Use with U nivers DEVICE Misc 8-27 lancets to it y of 00:00: check [place] blood [facility] glucose Branch LANCING 2019-0 Yes [id number] Use with U nivers DEVICE Misc 8-27 lancets to it y of 00:00: check blood Medical glucose Branch LANCING 2019-0 Yes [id number] Use with [facility] nivers DEVICE Misc 8-27 lancets to it y of 00:00: check blood Medical glucose Branch LANCING 2019-0 Yes [id number] Use with U nivers DEVICE Misc 8-27 lancets to it y of 00:00: check blood Medical glucose Branch LANCING 2019-0 Yes [id number] Use with [facility] nivers DEVICE Misc 8-27 lancets to it y of 00:00: check blood Medical glucose Branch LANCING 2019-0 Yes [id number] Use with [facility] nivers DEVICE Misc 8-27 lancets to it y of 00:00: check blood Medical glucose Branch LANCING 2019-0 Yes [id number] Use with [facility] nivers DEVICE Misc 8-27 lancets to it y of 00:00: check blood Medical glucose Branch LANCING 2019-0 Yes [id number] Use with [facility] nivers DEVICE Misc 8-27 lancets to it y of 00:00: check blood Medical glucose Branch LANCING 2019-0 Yes [id number] Use with [facility] nivers DEVICE Misc 8-27 lancets to it y of 00:00: check blood Medical glucose Branch LANCING 2019-0 Yes [id number] Use with U nivers DEVICE Misc 8-27 lancets to it y of 00:00: check [place] blood [facility] glucose Branch LANCING 2019-0 Yes [id number] Use with [facility] nivers DEVICE Misc 8-27 lancets to it y of 00:00: check [place] blood [facility] glucose Branch LANCING 2019-0 Yes [id number] Use with [facility] nivers DEVICE Misc 8-27 lancets to it y of 00:00: check [place] blood [facility] glucose Branch LANCING 2019-0 Yes [id number] Use with [facility] nivers DEVICE Misc 8-27 lancets to it y of 00:00: check [place] blood [facility] glucose Branch LANCING 2019-0 Yes [id number] Use with [facility] nivers DEVICE Misc 8-27 lancets to it y of 00:00: check [place] blood [facility] glucose Branch LANCING 2019-0 Yes [id number] Use with [facility] n[facility] DEVICE Misc 8-27 lancets to it y of 00:00: check blood Medical glucose Branch LANCING 2019-0 Yes [id number] Use with [facility] nivers DEVICE Misc 8-27 lancets to it y of 00:00: check blood Medical glucose Branch LANCING 2019-0 Yes [id number] Use with [facility] nivers DEVICE Misc 8-27 lancets to it y of 00:00: check blood Medical glucose Branch LANCING 2019-0 Yes [id number] Use with [facility] nivers DEVICE Misc 8-27 lancets to it y of 00:00: check [place] blood [facility] glucose Branch LANCING 2019-0 Yes [id number] Use with [facility] nivers DEVICE Misc 8-27 lancets to it y of 00:00: check blood Medical glucose Branch LANCING 2019-0 Yes [id number] Use with [facility] nivers DEVICE Misc 8-27 lancets to it y of 00:00: check blood Medical glucose Branch LANCING 2019-0 Yes [id number] Use with [facility] nivers DEVICE Misc 8-27 lancets to it y of 00:00: check [place] blood [facility] glucose Branch LANCING 2019-0 Yes [id number] Use with [facility] nivers DEVICE Misc 8-27 lancets to it y of 00:00: check [place] blood [facility] glucose Branch LANCING 2019-0 Yes [id number] Use with [facility] nivers DEVICE Misc 8-27 lancets to it y of 00:00: check blood Medical glucose Branch LANCING 2019-0 Yes [id number] Use with [facility] nivers DEVICE Misc 8-27 lancets to it y of 00:00: check [place] blood [facility] glucose Branch LANCING 2019-0 Yes [id number] Use with [facility] nivers DEVICE Misc 8-27 lancets to it y of 00:00: check [place] blood [facility] glucose Branch LANCING 2019-0 Yes [id number] Use with [facility] nivers DEVICE Misc 8-27 lancets to it y of 00:00: check [place] blood [facility] glucose Branch LANCING 2019-0 Yes [id number] Use with [facility] nivers DEVICE Misc 8-27 lancets to it y of 00:00: check [place] blood [facility] glucose Branch LANCING 2019-0 Yes [id number] Use with [facility] nivers DEVICE Misc 8-27 lancets to it y of 00:00: check [place] blood Medical glucose Branch LANCING 2019-0 Yes [id number] Use with U nivers DEVICE Misc 8-27 lancets to it y of 00:00: check [place] blood Medical glucose Branch LANCING 2019-0 Yes [id number] Use with [facility] nivers DEVICE Misc 8-27 lancets to it y of 00:00: check [place] blood Medical glucose Branch LANCING 2019-0 Yes [id number] Use with [facility] nivers DEVICE Misc 8-27 lancets to it y of 00:00: check [place] blood Medical glucose Branch LANCING 2019-0 Yes [id number] Use with [facility] nivers DEVICE Misc 8-27 lancets to it y of 00:00: check [place] blood Medical glucose Branch LANCING 2019-0 Yes [id number] Use with [facility] nivers DEVICE Misc 8-27 lancets to it y of 00:00: check blood Medical glucose Branch LANCING 2019-0 Yes [id number] Use with [facility] nivers DEVICE Misc 8-27 lancets to it y of 00:00: check [place] blood Medical glucose Branch aspirin 81 2019-0 Yes [id number] 81mg Take 1 [facility] mg EC 4-23 tablet by ity of tablet 00:00: mouth [place] 00 daily. Medical Branch aspirin 81 2019-0 Yes [id number] 81mg Take 1 [facility] mg EC 4-23 tablet by ity of tablet 00:00: mouth [place] 00 daily. Medical Branch aspirin 81 2019-0 Yes [id number] 81mg Take 1 [facility] mg EC 4-23 tablet by ity of tablet 00:00: mouth [place] 00 daily. Medical Branch aspirin 81 2019-0 Yes [id number] 81mg Take 1 [facility] mg EC 4-23 tablet by ity of tablet 00:00: mouth [place] 00 daily. Medical Branch aspirin 81 2019-0 Yes [id number] 81mg Take 1 [facility] mg EC 4-23 tablet by ity of tablet 00:00: mouth [place] 00 daily. [facility] Branch aspirin 81 2019-0 Yes [id number] 81mg Take 1 [facility] mg EC 4-23 tablet by ity of tablet 00:00: mouth [place] 00 daily. [facility] Branch aspirin 81 2019-0 Yes [id number] 81mg Take 1 [facility] mg EC 4-23 tablet by ity of tablet 00:00: mouth [place] 00 daily. [facility] Branch aspirin 81 2019-0 Yes [id number] 81mg Take 1 [facility] mg EC 4-23 tablet by ity of tablet 00:00: mouth [place] 00 daily. Medical Branch aspirin 81 2019-0 Yes [id number] 81mg Take 1 [facility] mg EC 4-23 tablet by ity of tablet 00:00: mouth [place] 00 daily. Medical Branch aspirin 81 2019-0 Yes [id number] 81mg Take 1 [facility] mg EC 4-23 tablet by ity of tablet 00:00: mouth [place] 00 daily. Medical Branch aspirin 81 2019-0 Yes [id number] 81mg Take 1 [facility] mg EC 4-23 tablet by ity of tablet 00:00: mouth [place] 00 daily. Medical Branch aspirin 81 2019-0 Yes [id number] 81mg Take 1 [facility] mg EC 4-23 tablet by ity of tablet 00:00: mouth [place] 00 daily. Medical Branch aspirin 81 2019-0 Yes [id number] 81mg Take 1 [facility] mg EC 4-23 tablet by ity of tablet 00:00: mouth [place] 00 daily. Medical Branch aspirin 81 2019-0 Yes [id number] 81mg Take 1 [facility] mg EC 4-23 tablet by ity of tablet 00:00: mouth [place] 00 daily. Medical Branch aspirin 81 2019-0 Yes [id number] 81mg Take 1 [facility] mg EC 4-23 tablet by ity of tablet 00:00: mouth [place] 00 daily. Medical Branch aspirin 81 2019-0 Yes [id number] 81mg Take 1 [facility] mg EC 4-23 tablet by ity of tablet 00:00: mouth [place] 00 daily. Medical Branch aspirin 81 2019-0 Yes [id number] 81mg Take 1 [facility] mg EC 4-23 tablet by ity of tablet 00:00: mouth [place] 00 daily. Medical Branch aspirin 81 2019-0 Yes [id number] 81mg Take 1 [facility] mg EC 4-23 tablet by ity of tablet 00:00: mouth [place] 00 daily. Medical Branch aspirin 81 2019-0 Yes [id number] 81mg Take 1 [facility] mg EC 4-23 tablet by ity of tablet 00:00: mouth [place] 00 daily. Medical Branch aspirin 81 2019-0 Yes [id number] 81mg Take 1 [facility] mg EC 4-23 tablet by ity of tablet 00:00: mouth [place] 00 daily. Medical Branch aspirin 81 2019-0 Yes [id number] 81mg Take 1 [facility] mg EC 4-23 tablet by ity of tablet 00:00: mouth [place] 00 daily. Medical Branch aspirin 81 2019-0 Yes [id number] 81mg Take 1 [facility] mg EC 4-23 tablet by ity of tablet 00:00: mouth [place] 00 daily. Medical Branch aspirin 81 2019-0 Yes [id number] 81mg Take 1 [facility] mg EC 4-23 tablet by ity of tablet 00:00: mouth [place] 00 daily. Medical Branch aspirin 81 2019-0 Yes [id number] 81mg Take 1 [facility] mg EC 4-23 tablet by ity of tablet 00:00: mouth [place] 00 daily. Medical Branch aspirin 81 2019-0 Yes [id number] 81mg Take 1 [facility] mg EC 4-23 tablet by ity of tablet 00:00: mouth [place] 00 daily. Medical Branch aspirin 81 2019-0 Yes [id number] 81mg Take 1 [facility] mg EC 4-23 tablet by ity of tablet 00:00: mouth [place] 00 daily. Medical Branch aspirin 81 2019-0 Yes [id number] 81mg Take 1 [facility] mg EC 4-23 tablet by ity of tablet 00:00: mouth [place] 00 daily. Medical Branch aspirin 81 2019-0 Yes [id number] 81mg Take 1 [facility] mg EC 4-23 tablet by ity of tablet 00:00: mouth [place] 00 daily. Medical Branch aspirin 81 2019-0 Yes [id number] 81mg Take 1 [facility] mg EC 4-23 tablet by ity of tablet 00:00: mouth [place] 00 daily. Medical Branch aspirin 81 2019-0 Yes [id number] 81mg Take 1 [facility] mg EC 4-23 tablet by ity of tablet 00:00: mouth [place] 00 daily. Medical Branch aspirin 81 2019-0 Yes [id number] 81mg Take 1 [facility] mg EC 4-23 tablet by ity of tablet 00:00: mouth [place] 00 daily. Medical Branch aspirin 81 2019-0 Yes [id number] 81mg Take 1 [facility] mg EC 4-23 tablet by ity of tablet 00:00: mouth [place] 00 daily. Medical Branch aspirin 81 2019-0 Yes [id number] 81mg Take 1 [facility] mg EC 4-23 tablet by ity of tablet 00:00: mouth [place] 00 daily. Medical Branch aspirin 81 2019-0 Yes [id number] 81mg Take 1 [facility] mg EC 4-23 tablet by ity of tablet 00:00: mouth [place] 00 daily. Medical Branch aspirin 81 2019-0 Yes [id number] 81mg Take 1 [facility] mg EC 4-23 tablet by ity of tablet 00:00: mouth [place] 00 daily. Medical Branch aspirin 81 2019-0 Yes [id number] 81mg Take 1 [facility] mg EC 4-23 tablet by ity of tablet 00:00: mouth [place] 00 daily. Medical Branch aspirin 81 2019-0 Yes [id number] 81mg Take 1 [facility] mg EC 4-23 tablet by ity of tablet 00:00: mouth [place] 00 daily. Medical Branch aspirin 81 2019-0 Yes [id number] 81mg Take 1 [facility] mg EC 4-23 tablet by ity of tablet 00:00: mouth [place] 00 daily. Medical Branch aspirin 81 2019-0 Yes [id number] 81mg Take 1 [facility] mg EC 4-23 tablet by ity of tablet 00:00: mouth [place] 00 daily. Medical Branch aspirin 81 2019-0 Yes [id number] 81mg Take 1 [facility] mg EC 4-23 tablet by ity of tablet 00:00: mouth [place] 00 daily. Medical Branch aspirin 81 2019-0 Yes [id number] 81mg Take 1 [facility] mg EC 4-23 tablet by ity of tablet 00:00: mouth [place] 00 daily. Medical Branch aspirin 81 2019-0 Yes [id number] 81mg Take 1 [facility] mg EC 4-23 tablet by ity of tablet 00:00: mouth [place] 00 daily. Medical Branch aspirin 81 2019-0 Yes [id number] 81mg Take 1 [facility] mg EC 4-23 tablet by ity of tablet 00:00: mouth [place] 00 daily. Medical Branch aspirin 81 2019-0 Yes [id number] 81mg Take 1 [facility] mg EC 4-23 tablet by ity of tablet 00:00: mouth [place] 00 daily. Medical Branch aspirin 81 2019-0 Yes [id number] 81mg Take 1 [facility] mg EC 4-23 tablet by ity of tablet 00:00: mouth [place] 00 daily. Medical Branch aspirin 81 2019-0 Yes [id number] 81mg Take 1 [facility] mg EC 4-23 tablet by ity of tablet 00:00: mouth [place] 00 daily. Medical Branch aspirin 81 2019-0 Yes [id number] 81mg Take 1 [facility] mg EC 4-23 tablet by ity of tablet 00:00: mouth [place] 00 daily. Medical Branch aspirin 81 2019-0 Yes [id number] 81mg Take 1 [facility] mg EC 4-23 tablet by ity of tablet 00:00: mouth [place] 00 daily. Medical Branch aspirin 81 2019-0 Yes [id number] 81mg Take 1 [facility] mg EC 4-23 tablet by ity of tablet 00:00: mouth [place] 00 daily. Medical Branch aspirin 81 2019-0 Yes [id number] 81mg Take 1 [facility] mg EC 4-23 tablet by ity of tablet 00:00: mouth [place] 00 daily. Medical Branch aspirin 81 2019-0 Yes [id number] 81mg Take 1 [facility] mg EC 4-23 tablet by ity of tablet 00:00: mouth [place] 00 daily. Medical Branch aspirin 81 2019-0 Yes [id number] 81mg Take 1 [facility] mg EC 4-23 tablet by ity of tablet 00:00: mouth [place] 00 daily. Medical Branch aspirin 81 2019-0 Yes [id number] 81mg Take 1 [facility] mg EC 4-23 tablet by ity of tablet 00:00: mouth [place] 00 daily. Medical Branch aspirin 81 2019-0 Yes [id number] 81mg Take 1 [facility] mg EC 4-23 tablet by ity of tablet 00:00: mouth [place] 00 daily. Medical Branch aspirin 81 2019-0 Yes [id number] 81mg Take 1 [facility] mg EC 4-23 tablet by ity of tablet 00:00: mouth [place] 00 daily. Medical Branch aspirin 81 2019-0 Yes [id number] 81mg Take 1 [facility] mg EC 4-23 tablet by ity of tablet 00:00: mouth [place] 00 daily. Medical Branch aspirin 81 2019-0 Yes [id number] 81mg Take 1 [facility] mg EC 4-23 tablet by ity of tablet 00:00: mouth [place] 00 daily. Medical Branch aspirin 81 2019-0 Yes [id number] 81mg Take 1 [facility] mg EC 4-23 tablet by ity of tablet 00:00: mouth [place] 00 daily. Medical Branch aspirin 81 2019-0 Yes [id number] 81mg Take 1 [facility] mg EC 4-23 tablet by ity of tablet 00:00: mouth [place] 00 daily. Medical Branch aspirin 81 2019-0 Yes [id number] 81mg Take 1 [facility] mg EC 4-23 tablet by ity of tablet 00:00: mouth [place] 00 daily. Medical Branch aspirin 81 2019-0 Yes [id number] 81mg Take 1 [facility] mg EC 4-23 tablet by ity of tablet 00:00: mouth [place] 00 daily. Medical Branch aspirin 81 2019-0 Yes [id number] 81mg Take 1 [facility] mg EC 4-23 tablet by ity of tablet 00:00: mouth [place] 00 daily. Medical Branch aspirin 81 2019-0 Yes [id number] 81mg Take 1 [facility] mg EC 4-23 tablet by ity of tablet 00:00: mouth [place] 00 daily. Medical Branch aspirin 81 2019-0 Yes [id number] 81mg Take 1 [facility] mg EC 4-23 tablet by ity of tablet 00:00: mouth [place] 00 daily. Medical Branch aspirin 81 2019-0 Yes [id number] 81mg Take 1 [facility] mg EC 4-23 tablet by ity of tablet 00:00: mouth [place] 00 daily. Medical Branch aspirin 81 2019-0 Yes [id number] 81mg Take 1 [facility] mg EC 4-23 tablet by ity of tablet 00:00: mouth [place] 00 daily. Medical Branch aspirin 81 2019-0 Yes [id number] 81mg Take 1 [facility] mg EC 4-23 tablet by ity of tablet 00:00: mouth [place] 00 daily. Medical Branch aspirin 81 2019-0 Yes [id number] 81mg Take 1 [facility] mg EC 4-23 tablet by ity of tablet 00:00: mouth [place] 00 daily. Medical Branch aspirin 81 2019-0 Yes [id number] 81mg Take 1 [facility] mg EC 4-23 tablet by ity of tablet 00:00: mouth [place] 00 daily. Medical Branch aspirin 81 2019-0 Yes [id number] 81mg Take 1 [facility] mg EC 4-23 tablet by ity of tablet 00:00: mouth [place] 00 daily. Medical Branch aspirin 81 2019-0 Yes [id number] 81mg Take 1 [facility] mg EC 4-23 tablet by ity of tablet 00:00: mouth [place] 00 daily. Medical Branch aspirin 81 2019-0 Yes [id number] 81mg Take 1 [facility] mg EC 4-23 tablet by ity of tablet 00:00: mouth [place] 00 daily. Medical Branch aspirin 81 2019-0 Yes [id number] 81mg Take 1 [facility] mg EC 4-23 tablet by ity of tablet 00:00: mouth [place] 00 daily. Medical Branch aspirin 81 2019-0 Yes [id number] 81mg Take 1 [facility] mg EC 4-23 tablet by ity of tablet 00:00: mouth [place] 00 daily. Medical Branch aspirin 81 2019-0 Yes [id number] 81mg Take 1 [facility] mg EC 4-23 tablet by ity of tablet 00:00: mouth [place] 00 daily. [facility] Branch aspirin 81 2019-0 Yes [id number] 81mg Take 1 [facility] mg EC 4-23 tablet by ity of tablet 00:00: mouth [place] 00 daily. [facility] Branch aspirin 81 2019-0 Yes [id number] 81mg Take 1 [facility] mg EC 4-23 tablet by ity of tablet 00:00: mouth [place] 00 daily. [facility] Branch Lisinopril Lisinopril Yes ROBSON QD TAKE [...] 00 EVERY DAY Gabapentin Gabapentin Yes BRAXTON Q0.3333D TAKE 2 UT 300 MG Oral 300 [...] PO, l oral tablet 14:08: Bedtime, # [place] 00 30 tab, 0 Refill(s) Lisinopril No Notes: Memor ia - (Same as: l 14:00: Prinivil, [place] 00 Zestril) Baclofen No Notes: Memoria 03-19 (Same As: l 14:00: Lioresal) [place] 00 Depacon + No Notes: Memori a Sodium -26 Dilute in l Chloride 20:20: at least [...] dennis 6-26 (Same l 19:33: as:Solu-ME Srikanth DROL, A-Methapre d) Phenergan No Notes: Do Mem oria 6-26 not give l 19:33: IV push. [place] 00 (Same as: Phenergan) Benadryl No Notes: Memoria 6-26 (Same as: l 19:33: Benadryl) Trazodone Yes [...] tab, PO, l mg oral 15:16: Daily [place] tablet 00 lisinopril Yes 5 mg = 1 Mem oria 5 mg oral 6-26 tab, PO, l tablet 15:16: Daily Metformin Yes 500 mg = 1 Me moria hydrochlori 6-26 tab, PO, l de 500 MG 15:15: BID [place] Oral Tablet 00 Metoclopram Yes Special Mem oria rochelle 5 MG 03-18 Instructio l Oral Tablet 15:13: ns: before meals omeprazole Yes 40 mg = 1 Me moria 40 mg oral - cap, PO, l delayed 15:12: Daily, as [place] nn release 00 needed capsule Saline No Notes: Memoria Flush 0.9% 03-18 (Same as: l 14:00: BD Posiflush) heparin, No Notes: Memoria porcine - porcine l 13:00: heparin Lovenox No Notes: [facility] 6-26 (Same as: l 13:00: Lovenox) Motrin No 600 mg, Memoria 6- Route: PO, l 10:48: Drug form: TAB, ONCE, Dosing Weight 77.727, kg, Priority: STAT, Start date: 03/18/14 5:48:00, Stop date: 03/18/14 5:48:00 atorvastati No Notes: Jose Luis dennis n 03-18 Same as l 09:47: Lipitor Saline No Notes: Memoria Flush 0.9% -26 (Same as: l 09:42: BD Posiflush) Ibuprofen No Notes: Memori a 03-18 (Same as: l 05:08: Motrin) "Do Not Crush" Take with food. Iohexol No Special Memoria 03-18 Instructio l 03:15: ns: Dose = 2.2ml/kg, Max dose = 100ml -- "To be infused by Radiology Staff ONLY" Acetaminoph No Notes: Do M emoria en 03-18 not exceed l 02:46: 4 gm/day. [place] (Same as: Tylenol) Cardene 40 No Notes: Memor ia mg in NS 03-18 Same as: l 200 ml IV 02:43: Cardene [facility] nn 40 mg 00 Concentrat ion: (0.2 mg /1 ml ) Saline No Notes: [facility] Flush 0.9% 03-18 (Same as: l 02:41: BD Posiflush) Macrobid No Notes: Not Mem oria -11 Recommende l 17:00: d for patients with CrCl< 50 ml/min With food (Same as:Macroda ntin) Nitrofurant Yes 100 mg = 1 Memoria oin 100 MG -11 cap, PO, l Oral 16:05: [id number], # [place] Capsule 00 14 cap, 0 [Macrobid] Refill(s) [...] tab, PO, l Oral Tablet 16:10: TID-Before [place] [Reglan] 00 Meals, # 90 tab, 0 [...] tablet Refill(s) Tylenol No 650 mg, Memoria 410 Route: PO, l 06:31: Drug form: Srikatnh 00 TAB, Q6H, Dosing Weight 81.818, kg, PRN Pain, Start date: 12/31/13 1:31:00, Duration: 30 day, Stop date: 01/30/14 1:30:00 Docusate No Notes: Memoria 12-30 (Same as: l 13:00: Colace) Srikanth (Do Not Crush) sennosides, No Notes: Jose Luis dennis JAIL 8.6 MG 12-30 (Same as: l Oral Tablet 02:00: Senokot) [facility] 00 Baclofen No Notes: Memoria 12-29 (Same As: l 21:00: Lioresal) Srikanth 00 insulin No 60 units) Jose Luis dennis regular 100 12-29 Stable for l units/mL 16:16: 28 days at [place] [id number] room recombinant temperatur e Expires in days from ____Date Dextrose No 6.25 gm, Memor ia 50% Syringe 12-29 12.5 mL, l 16:16: Route: [place] 00 IVP, Drug Form: INJ, Dosing Weight 81.818, kg, PRN, PRN Abnormal Lab Result, Start date: 12/29/13 11:16:00, Duration: 30 day, Stop date: 01/28/14 11:15:00 Dextrose No 25 gm, 50 Jose Luis dennis 50% Syringe 4-08 mL, Route: l 16:15: IVP, Drug [place] 00 Form: INJ, Dosing Weight 81.818, kg, PRN, PRN Abnormal Lab Result, Start date: 12/29/13 11:15:00, Duration: 30 day, Stop date: 01/28/14 11:14:00 Epinephrine No Notes: Jose Luis dennis 1 MG/ML 07 (Same as: l Injectable 13:58: Epipen [facility] nn Solution 00 Auto Inejctor) Prefilled syringe for IM use. Benadryl No Notes: Memoria 4-07 (Same as: l 13:56: Benadryl) Srikanth 00 Ciprofloxac No Notes: Jose Luis dennis in 3 MG/ML 12-28 (Same As: l / 01:00: Ciprodex) [place] Dexamethaso 00 ne 1 MG/ML Otic Suspension [Ciprodex] Protonix No Notes: Memoria 4-06 Tablet l 21:30: should not Srikanth 00 be chewed or crushed. (Same as: Protonix) tramadol No Notes: Not Mem oria hydrochlori 06 to exceed l de 50 MG 17:00: 400mg/day. [place] Oral Tablet 00 (Same As: [Ultram] Ultram) Ibuprofen No 400 mg, 1 Mem oria 400 MG Oral 06 tab, l Tablet 15:36: Route: PO, [facility] nn 00 Drug form: TAB, Q8H, Dosing Weight 81.818, kg, Priority: NOW, Start date: 12/27/13 10:36:00, Duration: 3 day, Stop date: 12/30/13 8:00:00 pantoprazol No Notes: Jose Luis dennis e 4-06 Tablet l 11:30: should not Srikanth 00 be chewed or crushed. (Same as: Protonix) Protonix No 40 mg, Memoria 12-26 Route: l 12:19: IVP, Srikanth 00 Before Breakfast, Dosing Weight 81.818, kg, Start date: 12/26/13 7:19:00, Duration: 30 day, Stop date: 01/25/14 6:30:00 Lovenox No Notes: Mem[facility] - (Same as: l 19:00: Lovenox) [place] Lovenox No Notes: Memoria 4- (Same as: l 16:00: Lovenox) Srikanth 00 docusate No Notes: Memoria - (Same as: l 15:32: Colace) Acetaminoph No Notes: Do M emoria en 12-25 not exceed l 13:00: 4 gm/day. [place] (Same as: Tylenol) docusate No Notes: Memoria 12-24 (Same as: l 23:00: Colace) [place] lidocaine No Notes: Memori a topical 12-24 [...] of new patch" Baclofen No Notes: Memoria 4- (Same As: l 21:00: Lioresal) [place] 00 Baclofen No Notes: Memoria 4- (Same As: l 01:00: Lioresal) S[place] 00 Lidocaine No Notes: Memori a Hydrochlori 3-30 [...] Oxide 3-24 (Same as: l 15:26: Mag-Ox 400) Magnesium oxide [id number] g elemental magnesium Dose=____m g magnesium oxide (___mg elemental magnesium) heparin No Notes: Memoria 3-20 porcine l 23:00: heparin simethicone No 0 Memori a 80 mg oral 3-20 Refill(s) l tablet 22:47: [place] 00 Buspirone No 0 Memoria 3-20 Refill(s) l 22:47: Srikanth Namenda No 0 Memoria 3-20 Refill(s) l 22:47: Srikanth Metoclopram No Notes: Jose Luis dennis rochelle 10 MG 3-20 (Same as: l Oral Tablet 21:30: Reglan) [place] [Reglan] 00 Take 30 min before meals Keflex No Notes: Memoria 3-17 Take on l 19:00: empty [place] 00 stomach. (Same As: Keflex) NS (Bolus) No Special Jose Luis dennis IV 500 mL 3-15 Instructio l 14:39: ns: Bolus [place] 00 Dose NS (Bolus) No Special Jose Luis dennis IV 500 mL 3-15 Instructio l 13:49: ns: Bolus Dose Lisinopril No Notes: Memor ia 3-15 (Same as: l 13:00: Prinivil, Srikanth 00 Zestril) Keflex No Notes: Memoria 3-15 Take on l 05:00: empty Srikanth 00 stomach. (Same As: Keflex) Keflex No 500 mg, Memoria 3-14 Route: PO, l 21:00: Q8H, Dosing Weight 81.818, kg, Start date: 12/04/13 16:00:00, Duration: 30 day, Stop date: 01/03/14 8:00:00 normal No 1,000 mL, Memori a saline 0.9% 14 Rate: 75 l IV 1,000 mL 16:08: ml/hr, Infuse over: 13.3 hr, Route: IV, Dosing Weight 81.818 kg, Total Volume: 1,000, Start date: 12/04/13 11:08:00, Duration: 30 day, Stop date: 01/03/14 11:07:00 normal No 1,000 mL, Memori a saline 0.9% 12-04 Rate: 75 l IV 1000 mL 16:06: ml/hr, [facility]ing Infuse over: 13.3 hr, Route: IV, Dosing Weight 81.818 kg, Total Volume: 1,000, Start date: 12/04/13 11:06:00, Duration: 30 day, Stop date: 01/03/14 11:05:00 Bisacodyl No Notes: Memori a 10 MG Enema -13 (Same As: l 19:40: Dulcolax, Bisco-Lax) Metformin No Notes: Memori a 3-13 (Same as: l 01:00: Glucophage ) Take with meal magnesium No Notes: Memori a citrate -12 (Same as: l 17:21: Citrate of Magnesia) [...] insulin No 60 units) Jose Luis dennis isophane-[employer]ER 3-11 Stable for l H 13:00: 28 [...] Colace) sennosides, No Notes: Jose Luis dennis JAIL 8.6 MG 3-11 (Same as: l Oral Tablet 02:00: Senokot) [facility] 00 Saline No Notes: Memoria Flush 0.9% [...] 22:00: IVPB, Drug Srikanth 00 form: PDR/INJ, [id number], Dosing Weight 84.545, kg, Start date: 11/30/13 17:00:00, Duration: 30 day, Stop date: 12/29/13 17:00:00 Flexeril No Notes: Memoria 3-10 (Same As: l 21:42: Flexeril) lisinopril Yes 10 mg = 1 Me moria 10 mg oral 3-10 tab, PO, l tablet 18:30: Daily, # [place] 00 90 tab, 0 Refill(s) insulin Yes 10 unit = Memor ia isophane 3-10 0.1 mL, l human 18:30: SUB-Q, Srikanth recombinant 00 BID, # 30 100 mL, 0 units/mL Refill(s) subcutaneou s injection ceftriaxone Yes = 1 gm, Mem oria 1 g 3-10 IVPB, l injection 18:30: [id number], # [place] 00 4 inj, 0 [...] sennosides, No 8.6 mg, 1 M emoria JAIL 3-10 tab, l 14:00: Route: PO, Drug Form: TAB, Dosing Weight 84.545, kg, Daily, Start date: 11/30/13 9:00:00, Duration: 30 day, Stop date: 12/29/13 9:00:00([facility] as: Senokot) Rocephin 2013-0 No 1 gm, Memoria 3 Route: l 19:00: IVPB, Drug form: PDR/INJ, [id number], Dosing Weight 84.545, kg, Start date: 11/29/13 14:00:00, Duration: 30 day, Stop date: 12/28/13 14:00:00([facility] elida As: Rocephin). Use with 100ml NS mini-bag PLUS and infuse over 30 min Fleet Enema 2013-0 No 133 ml, Mem oria 3-09 Route: MO, l 18:12: Drug Form: MORENITA, Dosing Weight 84.545, kg, ONCE, Start date: 11/29/13 13:12:00, Stop date: 11/29/13 13:12:00 Flexeril 2013-0 No 10 mg, 1 Memor [...] 9:00:00, Duration: 30 day, Stop date: 12/28/13 9:00:00([facility] as: Prinivil, Zestril) Labetalol 2013-0 No 10 mg, 2 Jose Luis dennis 3-09 mL, Route: l 01:05: IVP, Drug form: INJ, Q15Min, Dosing Weight 84.545, kg, PRN Hypertensi on, Start date: 11/28/13 19:05:00, Duration: 30 day, Stop date: 12/28/13 20:04:00 Lisinopril 2013-0 No 5 mg, 1 Jose Ulis dennis 3-08 tab, l 16:13: Route: PO, Srikanth 00 Drug form: TAB, ONCE, Dosing Weight 84.545, kg, Priority: NOW, Start date: 11/28/13 10:13:00, Stop date: 11/28/13 10:13:00(S elida as: Prinivil, Zestril) Atenolol 25 No 25 mg = 1 M emoria MG Oral 3-08 tab, PO, l Tablet 01:03: Daily, # [place] 00 30 tab, 0 Refill(s) heparin, 0 No 5,000 Memoria porcine 3-07 unit, 1 l 22:00: mL, Route: Srikanth 00 SUB-Q, Drug form: INJ, Q8H, Dosing Weight 84.545, kg, Start date: 11/27/13 16:00:00, Duration: 30 day, Stop date: 12/27/13 8:00:00por cine heparin Lisinopril 0 No 5 mg, 1 Jose Luis dennis 3-07 tab, l 21:15: Route: PO, Srikanth 00 Drug form: TAB, Daily, Dosing Weight 84.545, kg, Start date: 11/27/13 15:15:00, Duration: 30 day, Stop date: 12/27/13 9:00:00([facility] as: Prinivil, Zestril) NPH 2013-0 No 10 unit, Memoria Insulin, 3-07 Route: l Pork 13:30: SUB-Q, Srikanth 00 Before Breakfast, Dosing Weight 84.545, kg, Start date: 11/27/13 7:30:00, Duration: 30 day, Stop date: 12/26/13 7:30:00 NPH 2013-0 No 10 unit, Memoria Insulin, 3-07 Route: l Pork 03:00: SUB-Q, [place] 00 Bedtime, Dosing Weight 84.545, kg, Start [...] dennis 3-06 0.1 mL, l 23:00: Route: Srikanth 00 SUB-Q, Drug form: INJ, BID, Start date: 11/26/13 17:00:00, Duration: 30 day, Stop date: 12/26/13 9:00:00 60 units) Stable for 28 days at room temperatur e Expires in days from ____Date Labetalol 2013- No 100 mg, 1 Mem oria 3-06 tab, l 23:00: Route: PO, Srikanth 00 Drug form: TAB, BID, Dosing Weight 84.545, kg, Start date: 11/26/13 17:00:00, Duration: 30 day, Stop date: 12/26/13 9:00:00Wit h food. (Same as:Trandat e, Normodyne) Protonix 2013- No 40 mg, 1 Memor ia 3-06 tab, l 22:30: Route: PO, [place] 00 Drug form: ECTAB, Before Dinner, Start date: 11/26/13 16:30:00, Duration: 30 day, Stop date: 12/25/13 16:30:00Ta blet should not be chewed or crushed. (Same as: Protonix) Captopril 2013- No 25 mg, Memori a 3-06 Route: PO, l 22:00: Drug form: [place] 00 TAB, Q8H, Dosing Weight 84.545, kg, Start date: 11/26/13 16:00:00, Duration: 30 day, Stop date: 12/26/13 8:00:00 omeprazole 2013- Yes 40 mg = 1 Me moria 40 mg oral 3-06 cap, PO, l delayed 16:26: Daily, # Gerardo n release 00 30 cap, 0 capsule Refill(s) Influenza 0 No 0.5 mL, Memor ia Virus 11-26 Route: IM, l Vaccine, 15:00: Drug Form: Her stone Inactivated 00 SUSP, A-[place]- Daily, -2006 Start (H3N2)-like date: virus 11/26/13 (A-[place]- 9:00:00, 71-2006 Stop date: [facility] 11/26/13 [id number]) 23:59:00(S strain / elida as: Influenza Fluzone Virus Quadrivale Vaccine, nt) Inactivated A-[place]- 59-2006, IVR-148 (H1N1) strain / Influenza Virus Vaccine, Inactivated , B-[place]--lik Saline No 5 ml, Memoria Flush 0.9% 11-26 Route: l 15:00: IVP, Drug Form: INJ, Dosing Weight 84.545, kg, Q12H, Start date: 11/26/13 9:00:00, Duration: 30 day, Stop date: 12/25/13 21:00:00([place] as: BD Posiflush) Labetalol No 200 mg, 1 Mem oria 3-06 tab, l 15:00: Route: PO, Srikanth 00 Drug form: TAB, Q12H, Dosing Weight 84.545, kg, Start date: 11/26/13 9:00:00, Duration: 30 day, Stop date: 12/25/13 21:00:00Wi th food. (Same as:Trandat e, Normodyne) Docusate No 100 mg, 10 Mem oria 3-06 mL, Route: l 15:00: PO, Drug Srikanth 00 form: LIQ, Q12H, Dosing Weight 84.545, kg, Start date: 11/26/13 9:00:00, Duration: 30 day, Stop date: 12/25/13 21:00:00(S [place] as: Colace) Acetaminoph 0 No 650 mg, Mem oria en -06 20.3 mL, l 14:13: Route: PO, [place] Drug form: LIQ, Q4H, Dosing Weight 84.545, kg, PRN Pain 1-3/Temp > 99.5 F, Start date: 11/26/13 8:13:00, Duration: 30 day, Stop date: 12/26/13 8:12:00Max acetaminop hen = 4000mg/day (4 gm/day). (Same as: Tylenol) Saline No 5 ml, Memoria Flush 0.9% 3-06 Route: l 14:13: IVP, Drug Form: INJ, Dosing Weight 84.545, kg, PRN, PRN Line Flush, Start date: 11/26/13 8:13:00, Duration: 30 day, Stop date: 12/26/13 9:12:00([facility] as: BD Posiflush) Bisacodyl No 10 mg, 1 Jose Luis dennis 3-06 supp, l 14:13: Route: MO, Srikanth 00 Drug form: SUPP, Q24H, Dosing Weight 84.545, kg, PRN Constipati on, Start date: 11/26/13 8:13:00, Duration: 30 day, Stop date: 12/26/13 8:12:00([facility] As: Dulcolax, Bisco-Lax) Nicardipine No 40 mg, 200 Memoria 3-06 mL, Rate: l 14:13: Start at 5 [place] 00 mgTitrate to maintain SBP 110-150 mmHg., [...] 2013- No 1,000 mL, Memori a Chloride 3-06 Rate: 75 l 0.154 14:13: ml/hr, Srikanth MEQ/ML 00 Infuse Injectable over: 13.3 Solution hr, Route: IV, Dosing Weight 84.545 kg, Total Volume: 1,000, Start date: 11/26/13 8:13:00, Duration: 30 day, Stop date: 12/26/13 8:12:00 Dextrose 2014-0 No 12.5 gm, Memor ia 50% Syringe 3-06 25 mL, l 13:31: Route: Srikanth 00 IVP, Drug Form: INJ, [...] Expires in days from ____Date Immunizations Ordered Immunization Filled Immunization Date Status Commen ts Source Name Name Influenza, 2022-07-20 Completed Melinda Seybold - Injectable, Mdck, 00:00:00 Externa l Preservative Free, Quadrivalt Influenza, 2022-07-20 Completed Melinda Seybold - Injectable, Mdck, 00:00:00 Externa l Preservative Free, Quadrivalt Influenza, 2022-07-20 Completed Melinda Seybold - Injectable, Mdck, 00:00:00 Externa l Preservative Free, Quadrivalt Influenza, 2022-07-20 Completed Melinda Seybold - Injectable, Mdck, 00:00:00 Externa l Preservative Free, Quadrivalt Influenza, 2022-07-20 Completed Melinda Seybold - Injectable, Mdck, 00:00:00 Externa l Preservative Free, Quadrivalt Influenza, 2022-07-20 Completed Melinda Seybold - Injectable, Mdck, 00:00:00 Externa l Preservative Free, Quadrivalt Influenza Virus 2022-07-20 Completed [facility], [facility] [place] [facility] Preserv and ABX Free Bran ch 6 MO-64 YRS Influenza Virus 2022-07-20 Completed [facility], 00:00:00 [place] [facility] Preserv and ABX Free Bran ch 6 MO-64 YRS Influenza Virus 2022-07-20 Completed [facility], 00:00:00 [place] [facility] Preserv and ABX Free Bran ch 6 MO-64 YRS Influenza Virus 2022-07-20 Completed [facility], 00:00:00 [place] [facility] Preserv and ABX Free Bran ch 6 MO-64 YRS Influenza Virus 2022-07-20 Completed [facility], 00:00:00 [place] [facility] Preserv and ABX Free Bran ch 6 MO-64 YRS Influenza Virus 2022-07-20 Completed [facility], 00:00:00 [place] [facility] Preserv and ABX Free Bran ch 6 MO-64 YRS Influenza Virus 2022-07-20 Completed [facility], 00:00:00 [place] [facility] Preserv and ABX Free Bran ch 6 MO-64 YRS Influenza Virus 2022-07-20 Completed [facility], 00:00:00 [place] [facility] Preserv and ABX Free Bran ch 6 MO-64 YRS Influenza Virus 2022-07-20 Completed [facility], 00:00:00 [place] [facility] Preserv and ABX Free Bran ch 6 MO-64 YRS Influenza Virus 2022-07-20 Completed [facility], 00:00:00 [place] [facility] Preserv and ABX Free Bran ch 6 MO-64 YRS Influenza Virus 2022-07-20 Completed [facility], 00:00:00 [place] [facility] Preserv and ABX Free Bran ch 6 MO-64 YRS Influenza Virus 2022-07-20 Completed [facility], 00:00:00 [place] [facility] Preserv and ABX Free Bran ch 6 MO-64 YRS Influenza Virus 2022-07-20 Completed [facility], 00:00:00 [place] [facility] Preserv and ABX Free Bran ch 6 MO-64 YRS Influenza Virus 2022-07-20 Completed [facility], 00:00:00 [place] [facility] Preserv and ABX Free Bran ch 6 MO-64 YRS Influenza Virus 2022-07-20 Completed [facility], 00:00:00 [place] [facility] Preserv and ABX Free Bran ch 6 MO-64 YRS Influenza Virus 2022-07-20 Completed [facility], 00:00:00 [place] [facility] Preserv and ABX Free Bran ch 6 MO-64 YRS Influenza Virus 2022-07-20 Completed [facility], 00:00:00 [place] [facility] Preserv and ABX Free Bran ch 6 MO-64 YRS Influenza Virus 2022-07-20 Completed [facility], 00:00:00 [place] [facility] Preserv and ABX Free Bran ch 6 MO-64 YRS Influenza Virus 2022-07-20 Completed [facility], 00:00:00 [place] [facility] Preserv and ABX Free Bran ch 6 MO-64 YRS Influenza Virus 2022-07-20 Completed [facility], 00:00:00 [place] [facility] Preserv and ABX Free Bran ch 6 MO-64 YRS Influenza Virus 2022-07-20 Completed [facility], 00:00:00 [place] [facility] Preserv and ABX Free Bran ch 6 MO-64 YRS Influenza Virus 2022-07-20 Completed [facility], 00:00:00 [place] [facility] Preserv and ABX Free Bran ch 6 MO-64 YRS Influenza Virus 2022-07-20 Completed [facility], 00:00:00 [place] [facility] Preserv and ABX Free Bran ch 6 MO-64 YRS Influenza Virus 2022-07-20 Completed [facility], 00:00:00 [place] [facility] Preserv and ABX Free Bran ch 6 MO-64 YRS Influenza Virus 2022-07-20 Completed [facility], 00:00:00 [place] [facility] Preserv and ABX Free Bran ch 6 MO-64 YRS Influenza Virus 2022-07-20 Completed [facility], 00:00:00 [place] [facility] Preserv and ABX Free Bran ch 6 MO-64 YRS Influenza Virus 2022-07-20 Completed [facility], 00:00:00 [place] [facility] Preserv and ABX Free Bran ch 6 MO-64 YRS Influenza Virus 2022-07-20 Completed [facility], 00:00:00 [place] [facility] Preserv and ABX Free Bran ch 6 MO-64 YRS Influenza Virus 2022-07-20 Completed [facility], 00:00:00 [place] [facility] Preserv and ABX Free Bran ch 6 MO-64 YRS Influenza Virus 2022-07-20 Completed [facility], 00:00:00 [place] [facility] Preserv and ABX Free Bran ch 6 MO-64 YRS Influenza Virus 2022-07-20 Completed [facility], 00:00:00 [place] [facility] Preserv and ABX Free Bran ch 6 MO-64 YRS Influenza Virus 2022-07-20 Completed [facility], 00:00:00 [place] [facility] Preserv and ABX Free Bran ch 6 MO-64 YRS Influenza Virus 2022-07-20 Completed [facility], 00:00:00 [place] [facility] Preserv and ABX Free Bran ch 6 MO-64 YRS Influenza Virus 2022-07-20 Completed [facility], 00:00:00 [place] [facility] Preserv and ABX Free Bran ch 6 MO-64 YRS Influenza Virus 2022-07-20 Completed [facility], 00:00:00 [place] [facility] Preserv and ABX Free Bran ch 6 MO-64 YRS Influenza Virus 2022-07-20 Completed [facility], 00:00:00 [place] [facility] Preserv and ABX Free Bran ch 6 MO-64 YRS Influenza Virus 2022-07-20 Completed [facility], 00:00:00 [place] [facility] Preserv and ABX Free Bran ch 6 MO-64 YRS Influenza Virus 2022-07-20 Completed [facility], 00:00:00 [place] [facility] Preserv and ABX Free Bran ch 6 MO-64 YRS Influenza Virus 2022-07-20 Completed [facility], 00:00:00 [place] [facility] Preserv and ABX Free Bran ch 6 MO-64 YRS Influenza Virus 2022-07-20 Completed [facility], 00:00:00 [place] [facility] Preserv and ABX Free Bran ch 6 MO-64 YRS Influenza Virus 2022-07-20 Completed [facility], 00:00:00 [place] [facility] Preserv and ABX Free Bran ch 6 MO-64 YRS Influenza Virus 2022-07-20 Completed [facility], 00:00:00 [place] [facility] Preserv and ABX Free Bran ch 6 MO-64 YRS Influenza Virus 2022-07-20 Completed [facility], 00:00:00 [place] [facility] Preserv and ABX Free Bran ch 6 MO-64 YRS Influenza Virus 2022-07-20 Completed [facility], 00:00:00 [place] [facility] Preserv and ABX Free Bran ch 6 MO-64 YRS Influenza Virus 2022-07-20 Completed [facility], 00:00:00 [place] [facility] Preserv and ABX Free Bran ch 6 MO-64 YRS Influenza Virus 2022-07-20 Completed [facility], 00:00:00 [place] [facility] Preserv and ABX Free Bran ch 6 MO-64 YRS Influenza Virus 2022-07-20 Completed [facility], 00:00:00 [place] [facility] Preserv and ABX Free Bran ch 6 MO-64 YRS Influenza Virus 2022-07-20 Completed [facility], 00:00:00 [place] [facility] Preserv and ABX Free Bran ch 6 MO-64 YRS Influenza Virus 2022-07-20 Completed [facility], 00:00:00 [place] [facility] Preserv and ABX Free Bran ch 6 MO-64 YRS Influenza Virus 2022-07-20 Completed [facility], 00:00:00 [place] [facility] Preserv and ABX Free Bran ch 6 MO-64 YRS SARS-COV-2 COVID-19 2021-11-23 Completed [facility] WILL-SUCROSE 00:00:00 [place] VACCINE (HANDLEY TOP) Branch SARS-COV-2 COVID-19 2021-11-23 [...] (HANDLEY TOP) Branch Influenza Virus 2021-08-23 Completed Melinda Alves ybold - Vaccine, No Preserv, 00:00:00 Exte rnal age 6 months and up Influenza Virus 2021-08-23 Completed Melinda Alves ybold - Vaccine, No Preserv, 00:00:00 Exte rnal age 6 months and up Influenza Virus 2021-08-23 Completed Melinda parkerold - Vaccine, No Preserv, 00:00:00 Exte rnal age 6 months and up Influenza Virus 2021-08-23 Completed Melinda vasquez - Vaccine, No Preserv, 00:00:00 Exte rnal age 6 months and up Influenza Virus 2021-08-23 Completed Melinda parkerold - Vaccine, No Preserv, 00:00:00 Exte rnal age 6 months and up Influenza Virus 2021-08-23 Completed Melinda parkerold - Vaccine, No Preserv, 00:00:00 Exte rnal age 6 months and up Influenza Virus 2021-08-23 Completed [facility] .5 [facility] 00:[facility]:00 [facility] Influenza Virus 2021-08-23 Completed [facility] .5 mL IM 00:00:00 [facility] Influenza Virus 2021-08-23 Completed [facility] .5 mL IM 00:00:00 [facility] 6[facility] Influenza Virus 2021-08-23 Completed [facility] .5 mL IM 00:00:00 [facility] Influenza Virus 2021-08-23 Completed [facility] .5 mL IM 00:00:00 [facility] Influenza Virus 2021-08-23 Completed [facility] .5 mL IM 00:00:00 [facility] Influenza Virus 2021-08-23 Completed [facility] .5 mL IM 00:00:00 [facility] Influenza Virus 2021-08-23 Completed [facility] .5 mL IM 00:00:00 [facility] Influenza Virus 2021-08-23 Completed [facility] .5 mL IM 00:00:00 [facility] Influenza Virus 2021-08-23 Completed [facility] .5 mL IM 00:00:00 [facility] Influenza Virus 2021-08-23 Completed [facility] .5 mL IM 00:00:00 [facility] Influenza Virus 2021-08-23 Completed [facility] .5 mL IM 00:00:00 [facility] Influenza Virus 2021-08-23 Completed [facility] .5 mL IM 00:00:00 [facility] 6[facility] Influenza Virus 2021-08-23 Completed [facility] .5 mL IM 00:00:00 [facility] Influenza Virus 2021-08-23 Completed [facility] .5 mL IM 00:00:00 [facility] Influenza Virus 2021-08-23 Completed [facility] .5 mL IM 00:00:00 [facility] [place] [facility] Influenza Virus 2021-08-23 Completed [facility] .5 mL IM 00:00:00 [facility] Influenza Virus 2021-08-23 Completed [facility] .5 mL IM 00:00:00 [facility] [place] [facility] Influenza Virus 2021-08-23 Completed [facility] .5 mL IM 00:00:00 [facility] [place] [facility] Influenza Virus 2021-08-23 Completed [facility] .5 mL IM 00:00:00 [facility] [place] [facility] Influenza Virus 2021-08-23 Completed [facility] .5 mL IM 00:00:00 [facility] [place] [facility] Influenza Virus 2021-08-23 Completed [facility] .5 mL IM 00:00:00 [facility] [place] [facility] Influenza Virus 2021-08-23 Completed [facility] .5 mL IM 00:00:00 [facility] Influenza Virus 2021-08-23 Completed [facility] .5 mL IM 00:00:00 [facility] Influenza Virus 2021-08-23 Completed [facility] .5 mL IM 00:00:00 [facility] Influenza Virus 2021-08-23 Completed [facility] .5 mL IM 00:00:00 [facility] Influenza Virus 2021-08-23 Completed [facility] .5 mL IM 00:00:00 [facility] Influenza Virus 2021-08-23 Completed [facility] .5 mL IM 00:00:00 [facility] Influenza Virus 2021-08-23 Completed [facility] .5 mL IM 00:00:00 [facility] [place] [facility] Influenza Virus 2021-08-23 Completed [facility] .5 mL IM 00:00:00 [facility] Influenza Virus 2021-08-23 Completed [facility] .5 mL IM 00:00:00 [facility] Influenza Virus 2021-08-23 Completed [facility] .5 mL IM 00:00:00 [facility] Influenza Virus 2021-08-23 Completed [facility] .5 mL IM 00:00:00 [facility] Influenza Virus 2021-08-23 Completed [facility] .5 mL IM 00:00:00 [facility] Influenza Virus 2021-08-23 Completed [facility] .5 mL IM 00:00:00 [facility] Influenza Virus 2021-08-23 Completed [facility] .5 mL IM 00:00:00 [facility] Influenza Virus 2021-08-23 Completed [facility] .5 mL IM 00:00:00 [facility] Influenza Virus 2021-08-23 Completed [facility] .5 mL IM 00:00:00 [facility] Influenza Virus 2021-08-23 Completed [facility] .5 mL IM 00:00:00 [facility] Influenza Virus 2021-08-23 Completed [facility] .5 mL IM 00:00:00 [facility] Influenza Virus 2021-08-23 Completed [facility] .5 mL IM 00:00:00 [facility] Influenza Virus 2021-08-23 Completed [facility] .5 mL IM 00:00:00 [facility] Influenza Virus 2021-08-23 Completed [facility] .5 mL IM 00:00:00 [facility] Influenza Virus 2021-08-23 Completed [facility] .5 mL IM 00:00:00 [facility] Influenza Virus 2021-08-23 Completed [facility] .5 mL IM 00:00:00 [facility] Influenza Virus 2021-08-23 Completed [facility] .5 mL IM 00:00:00 [facility] Influenza Virus 2021-08-23 Completed [facility] .5 mL IM 00:00:00 [facility] Influenza Virus 2021-08-23 Completed [facility] .5 mL IM 00:00:00 [facility] Influenza Virus 2021-08-23 Completed [facility] .5 mL IM 00:00:00 [facility] Influenza Virus 2021-08-23 Completed [facility] .5 mL IM 00:00:00 [facility] Influenza Virus 2021-08-23 Completed [facility] .5 mL IM 00:00:00 [facility] Influenza Virus 2021-08-23 Completed [facility] .5 mL IM 00:00:00 [facility] Influenza Virus 2021-08-23 Completed [facility] .5 mL IM 00:00:00 [facility] Influenza Virus 2021-08-23 Completed [facility] .5 mL IM 00:00:00 [facility] Influenza Virus 2021-08-23 Completed [facility] .5 mL IM 00:00:00 [facility] Influenza Virus 2021-08-23 Completed [facility] .5 mL IM 00:00:00 [facility] Influenza Virus 2021-08-23 Completed [facility] .5 mL IM 00:00:00 [facility] Influenza Virus 2021-08-23 Completed [facility] .5 mL IM 00:00:00 [facility] Influenza Virus 2021-08-23 Completed [facility] .5 mL IM 00:00:00 [facility] Influenza Virus 2021-08-23 Completed [facility] .5 mL IM 00:00:00 [facility] Influenza Virus 2021-08-23 Completed [facility] .5 mL IM 00:00:00 [facility] Influenza Virus 2021-08-23 Completed [facility] .5 mL IM 00:00:00 [facility] Influenza Virus 2021-08-23 Completed [facility] .5 mL IM 00:00:00 [facility] Influenza Virus 2021-08-23 Completed [facility] .5 mL IM 00:00:00 [facility] Influenza Virus 2021-08-23 Completed [facility] .5 mL IM 00:00:00 [facility] Influenza Virus 2021-08-23 Completed [facility] .5 mL IM 00:00:00 [facility] Influenza Virus 2021-08-23 Completed [facility] .5 mL IM 00:00:00 [facility] Influenza Virus 2021-08-23 Completed [facility] .5 mL IM 00:00:00 [facility] Influenza Virus 2021-08-23 Completed [facility] .5 mL IM 00:00:00 [facility] Influenza Virus 2021-08-23 Completed [facility] .5 mL IM 00:00:00 [facility] MO [facility] Influenza Virus 2021-08-23 Completed [facility] .5 mL IM 00:00:00 [facility] Influenza Virus 2021-08-23 Completed [facility] .5 mL IM 00:00:00 [facility] Influenza Virus 2021-08-23 Completed [facility] .5 mL IM 00:00:00 [facility] Influenza Virus 2021-08-23 Completed [facility] .5 mL IM 00:00:00 [facility] MO [facility] Influenza Virus 2021-08-23 Completed [facility] .5 mL IM 00:00:00 [facility] MO [facility] Influenza Virus 2021-08-23 Completed [facility] .5 mL IM 00:00:00 [facility] Influenza Virus 2021-08-23 Completed [facility] .5 mL IM 00:00:00 [facility] SARS-COV-2 COVID-19 2020-12-30 Completed [facility] PFIZER VACCINE 00:00:00 [facility] SARS-COV-2 COVID-19 2020-12-30 Completed [facility] of PFIZER VACCINE 00:00:00 [facility] SARS-COV-2 COVID-19 2020-12-30 Completed [facility] of PFIZER VACCINE 00:00:00 [facility] SARS-COV-2 COVID-19 2020-12-30 Completed [facility] of PFIZER VACCINE 00:00:00 [facility] SARS-COV-2 COVID-19 2020-12-30 Completed [facility] of PFIZER VACCINE 00:00:00 [facility] SARS-COV-2 COVID-19 2020-12-30 Completed [facility] of PFIZER VACCINE 00:00:00 [facility] SARS-COV-2 COVID-19 2020-12-30 Completed [facility] of PFIZER VACCINE 00:00:00 [facility] SARS-COV-2 COVID-19 2020-12-30 Completed [facility] of PFIZER VACCINE 00:00:00 [facility] SARS-COV-2 COVID-19 2020-12-30 Completed [facility] of PFIZER VACCINE 00:00:00 [facility] SARS-COV-2 COVID-19 2020-12-30 Completed [facility] of PFIZER VACCINE 00:00:00 [facility] SARS-COV-2 COVID-19 2020-12-30 Completed [facility] of PFIZER VACCINE 00:00:00 [facility] SARS-COV-2 COVID-19 2020-12-30 Completed [facility] of PFIZER VACCINE 00:00:00 [facility] SARS-COV-2 COVID-19 2020-12-30 Completed [facility] of PFIZER VACCINE 00:00:00 [facility] SARS-COV-2 COVID-19 2020-12-30 Completed [facility] of PFIZER VACCINE 00:00:00 [facility] SARS-COV-2 COVID-19 2020-12-30 Completed [facility] of PFIZER VACCINE 00:00:00 [facility] SARS-COV-2 COVID-19 2020-12-30 Completed [facility] of PFIZER VACCINE 00:00:00 [facility] SARS-COV-2 COVID-19 2020-12-30 Completed [facility] of PFIZER VACCINE 00:00:00 [facility] SARS-COV-2 COVID-19 2020-12-30 Completed [facility] of PFIZER VACCINE 00:00:00 [facility] SARS-COV-2 COVID-19 2020-12-30 Completed [facility] of PFIZER VACCINE 00:00:00 [facility] SARS-COV-2 COVID-19 2020-12-30 Completed [facility] 00:00:00 [facility] SARS-COV-2 COVID-19 2020-12-30 Completed [facility]ACCINE 00:00:00 [facility] SARS-COV-2 COVID-19 2020-12-30 Completed [facility] VACCINE 00:00:00 [facility] SARS-COV-2 COVID-19 2020-12-30 Completed [facility] VACCINE 00:00:00 [facility] SARS-COV-2 COVID-19 2020-12-30 Completed [facility] VACCINE 00:00:00 [facility] SARS-COV-2 COVID-19 2020-12-30 Completed [facility] VACCINE 00:00:00 [facility] SARS-COV-2 COVID-19 2020-12-30 Completed [facility] P[facility] VACCINE 00:00:00 [facility] SARS-COV-2 COVID-19 2020-12-30 Completed [facility] VACCINE 00:00:00 [facility] SARS-COV-2 COVID-19 2020-12-30 Completed [facility] VACCINE 00:00:00 [facility] SARS-COV-2 COVID-19 2020-12-30 Completed [facility]ACCINE 00:00:00 [facility] SARS-COV-2 COVID-19 2020-12-30 Completed [facility]ZER VACCINE 00:00:00 [facility] SARS-COV-2 COVID-19 2020-12-30 Completed [facility] PFIZER VACCINE 00:00:00 [facility] SARS-COV-2 COVID-19 2020-12-30 Completed [facility] P[facility] VACCINE 00:00:00 [facility] SARS-COV-2 COVID-19 2020-12-30 Completed [facility]ACCINE 00:00:00 [facility] SARS-COV-2 COVID-19 2020-12-30 Completed [facility] PFIZER VACCINE 00:00:00 [facility] SARS-COV-2 COVID-19 2020-12-30 Completed [facility] PFIZER VACCINE 00:00:00 [facility] SARS-COV-2 COVID-19 2020-12-30 Completed [facility] PFIZER VACCINE 00:00:00 [facility] SARS-COV-2 COVID-19 2020-12-30 Completed [facility] PFIZER VACCINE 00:00:00 [facility] SARS-COV-2 COVID-19 2020-12-30 Completed [facility] PFIZER VACCINE 00:00:00 [facility] SARS-COV-2 COVID-19 2020-12-30 Completed [facility] PFIZ[facility] VACCINE 00:00:00 [facility] SARS-COV-2 COVID-19 2020-12-30 Completed [facility] P[facility]ZER VACCINE 00:00:00 [facility] SARS-COV-2 COVID-19 2020-12-30 Completed [facility] P[facility] VACCINE 00:00:00 [facility] SARS-COV-2 COVID-19 2020-12-30 Completed [facility] P[facility]ZER VACCINE 00:00:00 [facility] SARS-COV-2 COVID-19 2020-12-30 Completed [facility] P[facility] VACCINE 00:00:00 [facility] SARS-COV-2 COVID-19 2020-12-30 Completed [facility] PFIZER VACCINE 00:00:00 [facility] SARS-COV-2 COVID-19 2020-12-30 Completed [facility] PFIZER VACCINE 00:00:00 [facility] SARS-COV-2 COVID-19 2020-12-30 Completed [facility] PFIZER VACCINE 00:00:00 [facility] SARS-COV-2 COVID-19 2020-12-30 Completed [facility] PFIZER VACCINE 00:00:00 [facility] SARS-COV-2 COVID-19 2020-12-30 Completed [facility] PFIZ[facility] VACCINE 00:00:00 [facility] SARS-COV-2 COVID-19 2020-12-30 Completed [facility] P[facility] VACCINE 00:00:00 [facility] SARS-COV-2 COVID-19 2020-12-30 Completed [facility] PFIZER VACCINE 00:00:00 [facility] SARS-COV-2 COVID-19 2020-12-30 Completed [facility] PFIZER VACCINE 00:00:00 [facility] SARS-COV-2 COVID-19 2020-12-30 Completed [facility] PFIZER VACCINE 00:00:00 [facility] SARS-COV-2 COVID-19 2020-12-30 Completed [facility] PFIZER VACCINE 00:00:00 [facility] SARS-COV-2 COVID-19 2020-12-30 Completed [facility] PFIZER VACCINE 00:00:00 [facility] SARS-COV-2 COVID-19 2020-12-30 Completed [facility] PFIZER VACCINE 00:00:00 [facility] SARS-COV-2 COVID-19 2020-12-30 Completed [facility] PFIZER VACCINE 00:00:00 [facility] SARS-COV-2 COVID-19 2020-12-30 Completed [facility] PFIZER VACCINE 00:00:00 [facility] SARS-COV-2 COVID-19 2020-12-30 Completed [facility] PFIZER VACCINE 00:00:00 [facility] SARS-COV-2 COVID-19 2020-12-30 Completed [facility] PFIZER VACCINE 00:00:00 [facility] SARS-COV-2 COVID-19 2020-12-30 Completed [facility] PFIZER VACCINE 00:00:00 [facility] SARS-COV-2 COVID-19 2020-12-30 Completed [facility] PFIZER VACCINE 00:00:00 [facility] SARS-COV-2 COVID-19 2020-12-30 Completed [facility]ZER VACCINE 00:00:00 [facility] SARS-COV-2 COVID-19 2020-12-30 Completed [facility] PFIZER VACCINE 00:00:00 [facility] SARS-COV-2 COVID-19 2020-12-30 Completed [facility] PFIZER VACCINE 00:00:00 [facility] SARS-COV-2 COVID-19 2020-12-30 Completed [facility] PFIZER VACCINE 00:00:00 [facility] SARS-COV-2 COVID-19 2020-12-30 Completed [facility] PFIZER VACCINE 00:00:00 [facility] SARS-COV-2 COVID-19 2020-12-30 Completed [facility] PFIZER VACCINE 00:00:00 [facility] SARS-COV-2 COVID-19 2020-12-30 Completed [facility] PFIZ[facility] VACCINE 00:00:00 [facility] SARS-COV-2 COVID-19 2020-12-30 Completed [facility] PFIZER VACCINE 00:00:00 [facility] SARS-COV-2 COVID-19 2020-12-30 Completed [facility] PFIZ[facility] VACCINE 00:00:00 [facility] SARS-COV-2 COVID-19 2020-12-30 Completed [facility] PFIZER VACCINE 00:00:00 [facility] SARS-COV-2 COVID-19 2020-12-30 Completed [facility] PFIZ[facility] VACCINE 00:00:00 [facility] SARS-COV-2 COVID-19 2020-12-30 Completed [facility] PFIZER VACCINE 00:00:00 [facility] SARS-COV-2 COVID-19 2020-12-30 Completed [facility] PFIZER VACCINE 00:00:00 [facility] SARS-COV-2 COVID-19 2020-12-30 Completed [facility] PFIZER VACCINE 00:00:00 [facility] SARS-COV-2 COVID-19 2020-12-30 Completed [facility] PFIZER VACCINE 00:00:00 [facility] SARS-COV-2 COVID-19 2020-12-30 Completed [facility] PFIZER VACCINE 00:00:00 [facility] SARS-COV-2 COVID-19 2020-12-30 Completed [facility] PFIZ[facility] VACCINE 00:00:00 [facility] SARS-COV-2 COVID-19 2020-12-30 Completed [facility] PFIZ[facility] VACCINE 00:00:00 [facility] SARS-COV-2 COVID-19 2020-12-30 Completed [facility] VACCINE 00:00:00 [facility] SARS-COV-2 COVID-19 2020-12-30 Completed [facility] PFIZER VACCINE 00:00:00 [facility] SARS-COV-2 COVID-19 2020-12-30 Completed [facility] PFIZER VACCINE 00:00:00 [facility] SARS-COV-2 COVID-19 2020-12-30 Completed [facility] PFIZER VACCINE 00:00:00 [facility] SARS-COV-2 COVID-19 2020-12-30 Completed [facility] PFIZ[facility] VACCINE 00:00:00 [facility] SARS-COV-2 COVID-19 2020-12-30 Completed [facility] PFIZER VACCINE 00:00:00 [facility] SARS-COV-2 COVID-19 2020-12-30 Completed [facility] PFIZER VACCINE 00:00:00 [facility] SARS-COV-2 COVID-19 2020-12-30 Completed [facility] PFIZER VACCINE 00:00:00 [facility] SARS-COV-2 COVID-19 2020-12-30 Completed [facility] PFIZER VACCINE 00:00:00 [facility] SARS-COV-2 COVID-19 2020-12-30 Completed [facility] PFIZER VACCINE 00:00:00 [facility] SARS-COV-2 COVID-19 2020-12-30 Completed [facility] PFIZER VACCINE 00:00:00 [facility] SARS-COV-2 COVID-19 2020-12-30 Completed [facility] PFIZER VACCINE 00:00:00 [facility] SARS-COV-2 COVID-19 2020-12-30 Completed [facility] PFIZER VACCINE 00:00:00 [facility] SARS-COV-2 COVID-19 2020-12-30 Completed [facility] PFIZER VACCINE 00:00:00 [facility] SARS-COV-2 COVID-19 2020-12-30 Completed [facility] PFIZ[facility] VACCINE 00:00:00 [facility] SARS-COV-2 COVID-19 2020-12-30 Completed [facility]ZER VACCINE 00:00:00 [facility] SARS-COV-2 COVID-19 2020-12-30 Completed [facility] PFIZER VACCINE 00:00:00 [facility] SARS-COV-2 COVID-19 2020-12-30 Completed [facility] PFIZER VACCINE 00:00:00 [facility] SARS-COV-2 COVID-19 2020-12-30 Completed [facility] PFIZER VACCINE 00:00:00 [facility] SARS-COV-2 COVID-19 2020-12-30 Completed [facility] PFIZER VACCINE 00:00:00 [facility] SARS-COV-2 COVID-19 2020-12-30 Completed [facility] PFIZER VACCINE 00:00:00 [facility] SARS-COV-2 COVID-19 2020-12-30 Completed [facility] PFIZER VACCINE 00:00:00 [facility] SARS-COV-2 COVID-19 2020-12-30 Completed [facility] PFIZER VACCINE 00:00:00 [facility] SARS-COV-2 COVID-19 2020-12-30 Completed [facility] PFIZER VACCINE 00:00:00 [facility] SARS-COV-2 COVID-19 2020-12-30 Completed [facility]FIZER VACCINE 00:00:00 [facility] SARS-COV-2 COVID-19 2020-12-30 Completed [facility] PFIZER VACCINE 00:00:00 [facility] SARS-COV-2 COVID-19 2020-12-30 Completed [facility] PFIZER VACCINE 00:00:00 [facility] SARS-COV-2 COVID-19 2020-12-30 Completed [facility] PFIZER VACCINE 00:00:00 [facility] SARS-COV-2 COVID-19 2020-12-30 Completed [facility] PFIZER VACCINE 00[facility]00:00 [facility] SARS-COV-2 COVID-19 2020-12-30 Completed [facility] PFIZER VACCINE 00:00:00 [facility] SARS-COV-2 COVID-19 2020-12-30 Completed [facility] PFIZER VACCINE 00:00:00 [facility] SARS-COV-2 COVID-19 2020-12-30 Completed [facility] PFIZER VACCINE 00:00:00 [facility] SARS-COV-2 COVID-19 2020-12-30 Completed [facility] PFIZER VACCINE 00:00:00 [facility] SARS-COV-2 COVID-19 2020-12-30 Completed [facility] PFIZER VACCINE 00:00:00 [facility] SARS-COV-2 COVID-19 2020-12-30 Completed [facility] PFIZER VACCINE 00:00:00 [facility] SARS-COV-2 COVID-19 2020-12-30 Completed [facility] PFIZER VACCINE 00:00:00 [facility] SARS-COV-2 COVID-19 2020-12-30 Completed [facility] PFIZER VACCINE 00:00:00 [facility] SARS-COV-2 COVID-19 2020-12-30 Completed [facility] PFIZER VACCINE 00:00:00 [facility] SARS-COV-2 COVID-19 2020-12-30 Completed [facility] PFIZER VACCINE 00:00:00 [facility] SARS-COV-2 COVID-19 2020-12-30 Completed [facility] PFIZER VACCINE 00:00:00 [facility] SARS-COV-2 COVID-19 2020-12-30 Completed [facility] PFIZER VACCINE 00:00:00 [facility] SARS-COV-2 COVID-19 2020-12-30 Completed [facility] PFIZER VACCINE 00:00:00 [facility] SARS-COV-2 COVID-19 2020-12-30 Completed [facility] PFIZER VACCINE 00:00:00 [facility] SARS-COV-2 COVID-19 2020-12-30 Completed [facility] PFIZER VACCINE 00:00:00 [facility] SARS-COV-2 COVID-19 2020-12-30 Completed [facility] PFIZER VACCINE 00:00:00 [facility] SARS-COV-2 COVID-19 2020-12-30 Completed [facility] PFIZER VACCINE 00:00:00 [facility] SARS-COV-2 COVID-19 2020-12-30 Completed [facility] PFIZER VACCINE 00:00:00 [facility] SARS-COV-2 COVID-19 2020-12-30 Completed [facility] P[facility]ZER VACCINE 00:00:00 [facility] SARS-COV-2 COVID-19 2020-12-30 Completed [facility] PFIZER VACCINE 00:00:00 [facility] SARS-COV-2 COVID-19 2020-12-30 Completed [facility] PFIZER VACCINE 00:00:00 [facility] SARS-COV-2 COVID-19 2020-12-30 Completed [facility] PFIZER VACCINE 00:00:00 [facility] SARS-COV-2 COVID-19 2020-12-30 Completed [facility] PFIZER VACCINE 00:00:00 [facility] SARS-COV-2 COVID-19 2020-12-30 Completed [facility] PFIZER VACCINE 00:00:00 [facility] SARS-COV-2 COVID-19 2020-12-30 Completed [facility] PFIZER VACCINE 00:00:00 [facility] SARS-COV-2 COVID-19 2020-12-30 Completed [facility] PFIZER VACCINE 00:00:00 [facility] SARS-COV-2 COVID-19 2020-12-30 Completed [facility] PFIZER VACCINE 00:00:00 [facility] SARS-COV-2 COVID-19 2020-12-30 Completed [facility] PFIZER VACCINE 00:00:00 [facility] SARS-COV-2 COVID-19 2020-12-30 Completed [facility] PFIZER VACCINE 00:00:00 [facility] SARS-COV-2 COVID-19 2020-12-30 Completed [facility] PFIZER VACCINE 00:00:00 [facility] SARS-COV-2 COVID-19 2020-12-30 Completed [facility] PFIZER VACCINE 00:00:00 [facility] SARS-COV-2 COVID-19 2020-12-30 Completed [facility] PFIZER VACCINE 00:00:00 [facility] SARS-COV-2 COVID-19 2020-12-30 Completed [facility] PFIZER VACCINE 00:00:00 [facility] SARS-COV-2 COVID-19 2020-12-30 Completed [facility] PFIZER VACCINE 00:00:00 [facility] SARS-COV-2 COVID-19 2020-12-30 Completed [facility] PFIZER VACCINE 00:00:00 [facility] SARS-COV-2 COVID-19 2020-12-30 Completed [facility] PFIZER VACCINE 00:00:00 [facility] SARS-COV-2 COVID-19 2020-12-30 Completed [facility] PFIZER VACCINE 00:00:00 [facility] SARS-COV-2 COVID-19 2020-12-30 Completed [facility] PFIZER VACCINE 00:00:00 [facility] SARS-COV-2 COVID-19 2020-12-30 Completed [facility] PFIZER VACCINE 00:00:00 [facility] SARS-COV-2 COVID-19 2020-12-30 Completed [facility] PFIZER VACCINE 00:00:00 [facility] SARS-COV-2 COVID-19 2020-12-30 Completed [facility] PFIZER VACCINE 00:00:00 [facility] SARS-COV-2 COVID-19 2020-12-30 Completed [facility] PFIZER VACCINE 00:00:00 [facility] SARS-COV-2 COVID-19 2020-12-30 Completed [facility] PFIZER VACCINE 00:00:00 [facility] SARS-COV-2 COVID-19 2020-12-30 Completed [facility] PFIZER VACCINE 00:00:00 [facility] SARS-COV-2 COVID-19 2020-12-30 Completed [facility] PFIZER VACCINE 00:00:00 [facility] SARS-COV-2 COVID-19 2020-12-30 Completed [facility] PFIZER VACCINE 00:00:00 [facility] SARS-COV-2 COVID-19 2020-12-07 Completed [facility] PFIZER VACCINE 00:00:00 [facility] SARS-COV-2 COVID-19 2020-12-07 Completed [facility] PFIZER VACCINE 00:00:00 [facility] SARS-COV-2 COVID-19 2020-12-07 Completed [facility] PFIZ[facility] VACCINE 00:00:00 [facility] SARS-COV-2 COVID-19 2020-12-07 Completed [facility] VACCINE 00:00:00 [facility] SARS-COV-2 COVID-19 2020-12-07 Completed [facility] PFIZER VACCINE 00:00:00 [facility] SARS-COV-2 COVID-19 2020-12-07 Completed [facility] PFIZER VACCINE 00:00:00 [facility] SARS-COV-2 COVID-19 2020-12-07 Completed [facility] PFIZER VACCINE 00:00:00 [facility] SARS-COV-2 COVID-19 2020-12-07 Completed [facility] PFIZER VACCINE 00:00:00 [facility] SARS-COV-2 COVID-19 2020-12-07 Completed [facility] PFIZER VACCINE 00:00:00 [facility] SARS-COV-2 COVID-19 2020-12-07 Completed [facility] PFIZER VACCINE 00:00:00 [facility] SARS-COV-2 COVID-19 2020-12-07 Completed [facility] PFIZER VACCINE 00:00:00 [facility] SARS-COV-2 COVID-19 2020-12-07 Completed [facility] PFIZER VACCINE 00:00:00 [facility] SARS-COV-2 COVID-19 2020-12-07 Completed [facility] PFIZER VACCINE 00:00:00 [facility] SARS-COV-2 COVID-19 2020-12-07 Completed [facility] PFIZER VACCINE 00:00:00 [facility] SARS-COV-2 COVID-19 2020-12-07 Completed [facility] PFIZER VACCINE 00:00:00 [facility] SARS-COV-2 COVID-19 2020-12-07 Completed [facility] PFIZER VACCINE 00:00:00 [facility] SARS-COV-2 COVID-19 2020-12-07 Completed [facility] PFIZER VACCINE 00:00:00 [facility] SARS-COV-2 COVID-19 2020-12-07 Completed [facility] PFIZER VACCINE 00:00:00 [facility] SARS-COV-2 COVID-19 2020-12-07 Completed [facility] PFIZ[facility] VACCINE 00:00:00 [facility] SARS-COV-2 COVID-19 2020-12-07 Completed [facility] PFIZ[facility] VACCINE 00:00:00 [facility] SARS-COV-2 COVID-19 2020-12-07 Completed [facility] PFIZER VACCINE 00:00:00 [facility] SARS-COV-2 COVID-19 2020-12-07 Completed [facility] PFIZ[facility] VACCINE 00:00:00 [facility] SARS-COV-2 COVID-19 2020-12-07 Completed [facility] PFIZER VACCINE 00:00:00 [facility] SARS-COV-2 COVID-19 2020-12-07 Completed [facility] P[facility] VACCINE 00:00:00 [facility] SARS-COV-2 COVID-19 2020-12-07 Completed [facility] PFIZ[facility] VACCINE 00:00:00 [facility] SARS-COV-2 COVID-19 2020-12-07 Completed [facility] PFIZER VACCINE 00:00:00 [facility] SARS-COV-2 COVID-19 2020-12-07 Completed [facility] PFIZER VACCINE 00:00:00 [facility] SARS-COV-2 COVID-19 2020-12-07 Completed [facility] P[facility]ZER VACCINE 00:00:00 [facility] SARS-COV-2 COVID-19 2020-12-07 Completed [facility] P[facility]ZER VACCINE 00:00:00 [facility] SARS-COV-2 COVID-19 2020-12-07 Completed [facility] PFIZER VACCINE 00:00:00 [facility] SARS-COV-2 COVID-19 2020-12-07 Completed [facility] PFIZER VACCINE 00:00:00 [facility] SARS-COV-2 COVID-19 2020-12-07 Completed [facility] P[facility] VACCINE 00:00:00 [facility] SARS-COV-2 COVID-19 2020-12-07 Completed [facility] P[facility]ZER VACCINE 00:00:00 [facility] SARS-COV-2 COVID-19 2020-12-07 Completed [facility] VACCINE 00:00:00 [facility] SARS-COV-2 COVID-19 2020-12-07 Completed [facility] VACCINE 00:00:00 [facility] SARS-COV-2 COVID-19 2020-12-07 Completed [facility] PFIZER VACCINE 00:00:00 [facility] SARS-COV-2 COVID-19 2020-12-07 Completed [facility] PFIZER VACCINE 00:00:00 [facility] SARS-COV-2 COVID-19 2020-12-07 Completed [facility] PFIZER VACCINE 00:00:00 [facility] SARS-COV-2 COVID-19 2020-12-07 Completed [facility] PFIZER VACCINE 00:00:00 [facility] SARS-COV-2 COVID-19 2020-12-07 Completed [facility] PFIZER VACCINE 00:00:00 [facility] SARS-COV-2 COVID-19 2020-12-07 Completed [facility] PFIZER VACCINE 00:00:00 [facility] SARS-COV-2 COVID-19 2020-12-07 Completed [facility] PFIZER VACCINE 00:00:00 [facility] SARS-COV-2 COVID-19 2020-12-07 Completed [facility] P[facility]ZER VACCINE 00:00:00 [facility] SARS-COV-2 COVID-19 2020-12-07 Completed [facility] PFIZER VACCINE 00:00:00 [facility] SARS-COV-2 COVID-19 2020-12-07 Completed [facility] PFIZER VACCINE 00:00:00 [facility] SARS-COV-2 COVID-19 2020-12-07 Completed [facility] PFIZER VACCINE 00:00:00 [facility] SARS-COV-2 COVID-19 2020-12-07 Completed [facility] PFIZER VACCINE 00:00:00 [facility] SARS-COV-2 COVID-19 2020-12-07 Completed [facility] PFIZER VACCINE 00:00:00 [facility] SARS-COV-2 COVID-19 2020-12-07 Completed [facility] PFIZER VACCINE 00:00:00 [facility] SARS-COV-2 COVID-19 2020-12-07 Completed [facility] PFIZER VACCINE 00:00:00 [facility] SARS-COV-2 COVID-19 2020-12-07 Completed [facility] PFIZER VACCINE 00:00:00 [facility] SARS-COV-2 COVID-19 2020-12-07 Completed [facility] PFIZER VACCINE 00:00:00 [facility] SARS-COV-2 COVID-19 2020-12-07 Completed [facility] PFIZER VACCINE 00:00:00 [facility] SARS-COV-2 COVID-19 2020-12-07 Completed [facility] PFIZER VACCINE 00:00:00 [facility] SARS-COV-2 COVID-19 2020-12-07 Completed [facility] PFIZER VACCINE 00:00:00 [facility] SARS-COV-2 COVID-19 2020-12-07 Completed [facility] PFIZER VACCINE 00:00:00 [facility] SARS-COV-2 COVID-19 2020-12-07 Completed [facility] PFIZER VACCINE 00:00:00 [facility] SARS-COV-2 COVID-19 2020-12-07 Completed [facility] PFIZER VACCINE 00:00:00 [facility] SARS-COV-2 COVID-19 2020-12-07 Completed [facility] PFIZER VACCINE 00:00:00 [facility] SARS-COV-2 COVID-19 2020-12-07 Completed [facility] PFIZER VACCINE 00:00:00 [facility] SARS-COV-2 COVID-19 2020-12-07 Completed [facility] PFIZER VACCINE 00:00:00 [facility] SARS-COV-2 COVID-19 2020-12-07 Completed [facility] PFIZER VACCINE 00:00:00 [facility] SARS-COV-2 COVID-19 2020-12-07 Completed [facility] PFIZER VACCINE 00:00:00 [facility] SARS-COV-2 COVID-19 2020-12-07 Completed [facility] PFIZER VACCINE 00:00:00 [facility] SARS-COV-2 COVID-19 2020-12-07 Completed [facility] PFIZER VACCINE 00:00:00 [facility] SARS-COV-2 COVID-19 2020-12-07 Completed [facility] PFIZER VACCINE 00:00:00 [facility] SARS-COV-2 COVID-19 2020-12-07 Completed [facility] PFIZER VACCINE 00:00:00 [facility] SARS-COV-2 COVID-19 2020-12-07 Completed [facility] PFIZER VACCINE 00:00:00 [facility] SARS-COV-2 COVID-19 2020-12-07 Completed [facility] PFIZER VACCINE 00:00:00 [facility] SARS-COV-2 COVID-19 2020-12-07 Completed [facility] PFIZER VACCINE 00:00:00 [facility] SARS-COV-2 COVID-19 2020-12-07 Completed [facility] PFIZER VACCINE 00:00:00 [facility] SARS-COV-2 COVID-19 2020-12-07 Completed [facility] PFIZER VACCINE 00:00:00 [facility] SARS-COV-2 COVID-19 2020-12-07 Completed [facility] P[facility]ZER VACCINE 00:00:00 [facility] SARS-COV-2 COVID-19 2020-12-07 Completed [facility] P[facility] VACCINE 00:00:00 [facility] SARS-COV-2 COVID-19 2020-12-07 Completed [facility]ZER VACCINE 00[facility]00:00 [facility] SARS-COV-2 COVID-19 2020-12-07 Completed [facility] PFIZER VACCINE 00:00:00 [facility] SARS-COV-2 COVID-19 2020-12-07 Completed [facility] PFIZER VACCINE 00:00:00 [facility] SARS-COV-2 COVID-19 2020-12-07 Completed [facility] PFIZER VACCINE 00:00:00 [facility] SARS-COV-2 COVID-19 2020-12-07 Completed [facility]ZER VACCINE 00:00:00 [facility] SARS-COV-2 COVID-19 2020-12-07 Completed [facility] PFIZER VACCINE 00:00:00 [facility] SARS-COV-2 COVID-19 2020-12-07 Completed [facility] PFIZER VACCINE 00:00:00 [facility] SARS-COV-2 COVID-19 2020-12-07 Completed [facility] PFIZER VACCINE 00:00:00 [facility] SARS-COV-2 COVID-19 2020-12-07 Completed [facility] P[facility] VACCINE 00:00:00 [facility] SARS-COV-2 COVID-19 2020-12-07 Completed [facility] P[facility]ZER VACCINE 00:00:00 [facility] SARS-COV-2 COVID-19 2020-12-07 Completed [facility] P[facility]ER VACCINE 00:00:00 [facility] SARS-COV-2 COVID-19 2020-12-07 Completed [facility]INE 00:00:00 [facility] SARS-COV-2 COVID-19 2020-12-07 Completed [facility]INE 00[facility]00:00 [facility] SARS-COV-2 COVID-19 2020-12-07 Completed [facility] PFIZER VACCINE 00:00:00 [facility] SARS-COV-2 COVID-19 2020-12-07 Completed [facility] PFIZER VACCINE 00:00:00 [facility] SARS-COV-2 COVID-19 2020-12-07 Completed [facility] PFIZER VACCINE 00:00:00 [facility] SARS-COV-2 COVID-19 2020-12-07 Completed [facility] PFIZER VACCINE 00:00:00 [facility] SARS-COV-2 COVID-19 2020-12-07 Completed [facility] PFIZER VACCINE 00:00:00 [facility] SARS-COV-2 COVID-19 2020-12-07 Completed [facility] PFIZER VACCINE 00:00:00 [facility] SARS-COV-2 COVID-19 2020-12-07 Completed [facility] PFIZER VACCINE 00:00:00 [facility] SARS-COV-2 COVID-19 2020-12-07 Completed [facility] PFIZER VACCINE 00:00:00 [facility] SARS-COV-2 COVID-19 2020-12-07 Completed [facility] PFIZER VACCINE 00:00:00 [facility] SARS-COV-2 COVID-19 2020-12-07 Completed [facility] PFIZER VACCINE 00:00:00 [facility] SARS-COV-2 COVID-19 2020-12-07 Completed [facility] PFIZER VACCINE 00:00:00 [facility] SARS-COV-2 COVID-19 2020-12-07 Completed [facility] PFIZER VACCINE 00:00:00 [facility] SARS-COV-2 COVID-19 2020-12-07 Completed [facility] PFIZER VACCINE 00:00:00 [facility] SARS-COV-2 COVID-19 2020-12-07 Completed [facility] PFIZER VACCINE 00:00:00 [facility] SARS-COV-2 COVID-19 2020-12-07 Completed [facility] PFIZER VACCINE 00:00:00 [facility] SARS-COV-2 COVID-19 2020-12-07 Completed [facility] PFIZER VACCINE 00:00:00 [facility] SARS-COV-2 COVID-19 2020-12-07 Completed [facility] PFIZER VACCINE 00:00:00 [facility] SARS-COV-2 COVID-19 2020-12-07 Completed [facility] PFIZER VACCINE 00:00:00 [facility] SARS-COV-2 COVID-19 2020-12-07 Completed [facility] PFIZER VACCINE 00:00:00 [facility] SARS-COV-2 COVID-19 2020-12-07 Completed [facility] PFIZER VACCINE 00:00:00 [facility] SARS-COV-2 COVID-19 2020-12-07 Completed [facility] PFIZER VACCINE 00:00:00 [facility] SARS-COV-2 COVID-19 2020-12-07 Completed [facility] PFIZER VACCINE 00:00:00 [facility] SARS-COV-2 COVID-19 2020-12-07 Completed [facility] PFIZER VACCINE 00:00:00 [facility] SARS-COV-2 COVID-19 2020-12-07 Completed [facility] PFIZER VACCINE 00:00:00 [facility] SARS-COV-2 COVID-19 2020-12-07 Completed [facility] PFIZER VACCINE 00:00:00 [facility] SARS-COV-2 COVID-19 2020-12-07 Completed [facility] PFIZER VACCINE 00:00:00 [facility] SARS-COV-2 COVID-19 2020-12-07 Completed [facility] PFIZER VACCINE 00:00:00 [facility] SARS-COV-2 COVID-19 2020-12-07 Completed [facility] PFIZER VACCINE 00:00:00 [facility] SARS-COV-2 COVID-19 2020-12-07 Completed [facility] PFIZER VACCINE 00:00:00 [facility] SARS-COV-2 COVID-19 2020-12-07 Completed [facility] PFIZER VACCINE 00:00:00 [facility] SARS-COV-2 COVID-19 2020-12-07 Completed [facility] PFIZER VACCINE 00:00:00 [facility] SARS-COV-2 COVID-19 2020-12-07 Completed [facility] PFIZER VACCINE 00:00:00 [facility] SARS-COV-2 COVID-19 2020-12-07 Completed [facility] PFIZER VACCINE 00:00:00 [facility] SARS-COV-2 COVID-19 2020-12-07 Completed [facility] PFIZER VACCINE 00:00:00 [facility] SARS-COV-2 COVID-19 2020-12-07 Completed [facility] PFIZER VACCINE 00:00:00 [facility] SARS-COV-2 COVID-19 2020-12-07 Completed [facility] PFIZER VACCINE 00:00:00 [facility] SARS-COV-2 COVID-19 2020-12-07 Completed [facility] PFIZER VACCINE 00:00:00 [facility] SARS-COV-2 COVID-19 2020-12-07 Completed [facility] PFIZER VACCINE 00:00:00 [facility] SARS-COV-2 COVID-19 2020-12-07 Completed [facility] PFIZER VACCINE 00:00:00 [facility] SARS-COV-2 COVID-19 2020-12-07 Completed [facility] PFIZER VACCINE 00:00:00 [facility] SARS-COV-2 COVID-19 2020-12-07 Completed [facility] PFIZER VACCINE 00:00:00 [facility] SARS-COV-2 COVID-19 2020-12-07 Completed [facility] PFIZER VACCINE 00:00:00 [facility] SARS-COV-2 COVID-19 2020-12-07 Completed [facility] PFIZER VACCINE 00:00:00 [facility] SARS-COV-2 COVID-19 2020-12-07 Completed [facility] PFIZER VACCINE 00:00:00 [facility] SARS-COV-2 COVID-19 2020-12-07 Completed [facility] PFIZER VACCINE 00:00:00 [facility] SARS-COV-2 COVID-19 2020-12-07 Completed [facility] PFIZER VACCINE 00:00:00 [facility] SARS-COV-2 COVID-19 2020-12-07 Completed [facility] PFIZER VACCINE 00:00:00 [facility] SARS-COV-2 COVID-19 2020-12-07 Completed [facility] PFIZER VACCINE 00:00:00 [facility] SARS-COV-2 COVID-19 2020-12-07 Completed [facility] PFIZER VACCINE 00:00:00 [facility] SARS-COV-2 COVID-19 2020-12-07 Completed [facility] PFIZER VACCINE 00:00:00 [facility] SARS-COV-2 COVID-19 2020-12-07 Completed [facility] PFIZER VACCINE 00:00:00 [facility] SARS-COV-2 COVID-19 2020-12-07 Completed [facility] PFIZER VACCINE 00:00:00 [facility] SARS-COV-2 COVID-19 2020-12-07 Completed [facility] PFIZER VACCINE 00:00:00 [facility] SARS-COV-2 COVID-19 2020-12-07 Completed [facility] PFIZER VACCINE 00:00:00 [facility] SARS-COV-2 COVID-19 2020-12-07 Completed [facility] PFIZER VACCINE 00:00:00 [facility] SARS-COV-2 COVID-19 2020-12-07 Completed [facility] PFIZER VACCINE 00:00:00 [facility] SARS-COV-2 COVID-19 2020-12-07 Completed [facility] PFIZER VACCINE 00:00:00 [facility] SARS-COV-2 COVID-19 2020-12-07 Completed [facility] PFIZER VACCINE 00:00:00 [facility] SARS-COV-2 COVID-19 2020-12-07 Completed [facility] PFIZER VACCINE 00:00:00 [facility] SARS-COV-2 COVID-19 2020-12-07 Completed [facility] PFIZER VACCINE 00:00:00 [facility] SARS-COV-2 COVID-19 2020-12-07 Completed [facility] PFIZER VACCINE 00:00:00 [facility] SARS-COV-2 COVID-19 2020-12-07 Completed [facility] PFIZER VACCINE 00:00:00 [facility] SARS-COV-2 COVID-19 2020-12-07 Completed [facility] PFIZER VACCINE 00:00:00 [facility] SARS-COV-2 COVID-19 2020-12-07 Completed [facility] PFIZER VACCINE 00:00:00 [facility] SARS-COV-2 COVID-19 2020-12-07 Completed [facility] PFIZER VACCINE 00:00:00 [facility] SARS-COV-2 COVID-19 2020-12-07 Completed [facility] PFIZER VACCINE 00:00:00 [facility] SARS-COV-2 COVID-19 2020-12-07 Completed [facility] PFIZER VACCINE 00:00:00 [facility] Influenza Virus 2020-08-16 Completed [facility] - Vaccine, No Preserv, 00:00:00 [facility] age 6 months and up Influenza Virus 2020-08-16 Completed [facility] Influenza Virus 2020-08-16 Completed [facility] Influenza Virus 2020-08-16 Completed [facility] 00:[facility] Influenza Virus 2020-08-16 Completed [facility] 00:00:[facility] Influenza Virus 2020-08-16 Completed [facility] 00:00:00 [facility] Influenza Virus 2020-08-16 Completed [facility] 00:00:[facility] Influenza Virus 2020-08-16 Completed [facility] 00:00:[facility] Influenza Virus 2020-08-16 Completed [facility] .[facility] IM 00:00:[facility] Influenza Virus 2020-08-16 Completed [facility] 00:00:[facility] Influenza Virus 2020-08-16 Completed [facility] IM 00:00:[facility] Influenza Virus 2020-08-16 Completed [facility] 00:00:[facility] Influenza Virus 2020-08-16 Completed [facility] 00:00:[facility] Influenza Virus 2020-08-16 Completed [facility] 00:00:00 [facility] Influenza Virus 2020-08-16 Completed [facility] 00:00:[facility] Influenza Virus 2020-08-16 Completed [facility] .5 mL IM 00:00:00 [facility] Influenza Virus 2020-08-16 Completed [facility] .5 mL IM 00:00:00 [facility] Influenza Virus 2020-08-16 Completed [facility] .5 mL IM 00:00:00 [facility] Influenza Virus 2020-08-16 Completed [facility] .5 mL IM 00:00:00 [facility] Influenza Virus 2020-08-16 Completed [facility] .5 mL IM 00:00:00 [facility] Influenza Virus 2020-08-16 Completed [facility] .5 mL IM 00:00:00 [facility] Influenza Virus 2020-08-16 Completed [facility] .5 mL IM 00:00:00 [facility] Influenza Virus 2020-08-16 Completed [facility] .[facility] mL IM 00:00:00 [facility] Influenza Virus 2020-08-16 Completed [facility] .5 mL IM 00:00:00 [facility] Influenza Virus 2020-08-16 Completed [facility] .5 mL IM 00:00:00 [facility] Influenza Virus 2020-08-16 Completed [facility] .[facility] mL IM 00:00:00 [facility] Influenza Virus 2020-08-16 Completed [facility] .[facility] mL IM 00:00:00 [facility] Influenza Virus 2020-08-16 Completed [facility]5 mL IM 00:00:00 [facility] Influenza Virus 2020-08-16 Completed [facility] .5 mL IM 00:00:00 [facility] Influenza Virus 2020-08-16 Completed [facility] mL IM 00:00:00 [facility] Influenza Virus 2020-08-16 Completed [facility] mL IM 00:00:00 [facility] Influenza Virus 2020-08-16 Completed [facility] .[facility] mL IM 00:00:00 [facility] Influenza Virus 2020-08-16 Completed [facility]5 mL IM 00:00:00 [facility] Influenza Virus 2020-08-16 Completed [facility] mL IM 00:00:00 [facility] Influenza Virus 2020-08-16 Completed [facility]5 mL IM 00:00:00 [facility] Influenza Virus 2020-08-16 Completed [facility] .5 mL IM 00:00:00 [facility] Influenza Virus 2020-08-16 Completed [facility] mL IM 00:00:00 [facility] Influenza Virus 2020-08-16 Completed [facility] mL IM 00:00:00 [facility] Influenza Virus 2020-08-16 Completed [facility] mL IM 00:00:00 [facility] Influenza Virus 2020-08-16 Completed [facility]5 mL IM 00:00:00 [facility] Influenza Virus 2020-08-16 Completed [facility]5 mL IM 00:00:00 [facility] Influenza Virus 2020-08-16 Completed [facility] mL IM 00:00:00 [facility] Influenza Virus 2020-08-16 Completed [facility] .5 mL IM 00:00:00 [facility] Influenza Virus 2020-08-16 Completed [facility] mL IM 00:00:00 [facility] Influenza Virus 2020-08-16 Completed [facility]5 mL IM 00:00:00 [facility] Influenza Virus 2020-08-16 Completed [facility] mL IM 00:00:[facility] Influenza Virus 2020-08-16 Completed [facility] .5 mL IM 00:00:00 [facility] Influenza Virus 2020-08-16 Completed [facility] mL IM 00:00:00 [facility] Influenza Virus 2020-08-16 Completed [facility]5 mL IM 00:00:00 [facility] Influenza Virus 2020-08-16 Completed [facility] .5 mL IM 00:00:00 [facility] Influenza Virus 2020-08-16 Completed [facility] .5 mL IM 00:00:00 [facility] Influenza Virus 2020-08-16 Completed [facility] .5 mL IM 00:00:00 [facility] Influenza Virus 2020-08-16 Completed [facility] .5 mL IM 00:00:00 [facility] Influenza Virus 2020-08-16 Completed [facility] .5 mL IM 00:00:00 [facility] Influenza Virus 2020-08-16 Completed [facility]5 mL IM 00:00:00 [facility] Influenza Virus 2020-08-16 Completed [facility] .5 mL IM 00:00:00 [facility] Influenza Virus 2020-08-16 Completed [facility] .5 mL IM 00:00:00 [facility] Influenza Virus 2020-08-16 Completed [facility] .5 mL IM 00:00:00 [facility] Influenza Virus 2020-08-16 Completed [facility] .5 mL IM 00:00:00 [facility] Influenza Virus 2020-08-16 Completed [facility] .5 mL IM 00:00:00 [facility] Influenza Virus 2020-08-16 Completed [facility] .5 mL IM 00:00:00 [facility] Influenza Virus 2020-08-16 Completed [facility] .5 mL IM 00:00:00 [facility] Influenza Virus 2020-08-16 Completed [facility] .5 mL IM 00:00:00 [facility] Influenza Virus 2020-08-16 Completed [facility] .5 mL IM 00:00:00 [facility] Influenza Virus 2020-08-16 Completed [facility] .5 mL IM 00:00:00 [facility] Influenza Virus 2020-08-16 Completed [facility] .5 mL IM 00:00:00 [facility] Influenza Virus 2020-08-16 Completed [facility] .5 mL IM 00:00:00 [facility] Influenza Virus 2020-08-16 Completed [facility] .5 mL IM 00:00:00 [facility] Influenza Virus 2020-08-16 Completed [facility] .5 mL IM 00:00:00 [facility] Influenza Virus 2020-08-16 Completed [facility] .5 mL IM 00:00:00 [facility] Influenza Virus 2020-08-16 Completed [facility] .[facility] mL IM 00:00:00 [facility] Influenza Virus 2020-08-16 Completed [facility] .5 mL IM 00:00:00 [facility] Influenza Virus 2020-08-16 Completed [facility] .5 mL IM 00:00:00 [facility] Influenza Virus 2020-08-16 Completed [facility] .5 mL IM 00:00:00 [facility] Influenza Virus 2020-08-16 Completed [facility] mL IM 00:00:00 [facility] Influenza Virus 2020-08-16 Completed [facility] .[facility] mL IM 00:00:00 [facility] Influenza Virus 2020-08-16 Completed [facility] mL [facility] 00:00:00 [facility] Influenza Virus 2020-08-16 Completed [facility] 00:00:00 [facility] Influenza Virus 2019-07-01 Completed [facility] - Vaccine, No Preserv, 00:00:00 [facility] age 6 months and up Influenza Virus 2019-07-01 Completed [facility] 00:[facility] Influenza Virus 2019-07-01 Completed [facility] 00:00:[facility] Influenza Virus 2019-07-01 Completed [facility] mL [facility] 00:00:00 [facility] Influenza Virus 2019-07-01 Completed [facility] .[facility] mL IM 00:00:[facility] Influenza Virus 2019-07-01 Completed [facility] mL IM 00:00:00 [facility] Influenza Virus 2019-07-01 Completed [facility] .5 mL IM 00:00:00 [facility] Influenza Virus 2019-07-01 Completed [facility] .5 mL IM 00:00:[facility] Influenza Virus 2019-07-01 Completed [facility] mL IM 00:00:[facility] Influenza Virus 2019-07-01 Completed [facility] .5 mL IM 00:00:00 [facility] Influenza Virus 2019-07-01 Completed [facility] .[facility] mL IM 00:00:00 [facility] Influenza Virus 2019-07-01 Completed [facility] .5 mL IM 00:00:00 [facility] Influenza Virus 2019-07-01 Completed [facility]5 mL IM 00:00:[facility] Influenza Virus 2019-07-01 Completed [facility] .5 mL IM 00:00:00 [facility] Influenza Virus 2019-07-01 Completed [facility] mL [facility] 00:00:[facility] Influenza Virus 2019-07-01 Completed [facility] mL [facility] 00:00:[facility] Influenza Virus 2019-07-01 Completed [facility] 00:00:[facility] Influenza Virus 2019-07-01 Completed [facility] mL [facility] 00:00:[facility] Influenza Virus 2019-07-01 Completed [facility] mL [facility] 00:00:00 [facility] Influenza Virus 2019-07-01 Completed [facility] mL IM 00:00:[facility] Influenza Virus 2019-07-01 Completed [facility] mL [facility] 00:00:[facility] Influenza Virus 2019-07-01 Completed [facility] mL IM 00:00:00 [facility] Influenza Virus 2019-07-01 Completed [facility] .5 mL IM 00:00:00 [facility] Influenza Virus 2019-07-01 Completed [facility] mL [facility] 00:00:[facility] Influenza Virus 2019-07-01 Completed [facility]5 mL IM 00:00:00 [facility] Influenza Virus 2019-07-01 Completed [facility]5 mL IM 00:00:00 [facility] Influenza Virus 2019-07-01 Completed [facility] .5 mL IM 00:00:00 [facility] Influenza Virus 2019-07-01 Completed [facility] .5 mL IM 00:00:00 [facility] Influenza Virus 2019-07-01 Completed [facility] .5 mL IM 00:00:00 [facility] Influenza Virus 2019-07-01 Completed [facility] .5 mL IM 00:00:[facility] Influenza Virus 2019-07-01 Completed [facility]5 mL [facility] 00:00:[facility] Influenza Virus 2019-07-01 Completed [facility] mL [facility] 00:00:[facility] Influenza Virus 2019-07-01 Completed [facility]5 mL [facility] 00:00:[facility] Influenza Virus 2019-07-01 Completed [facility]5 mL IM 00:00:[facility] Influenza Virus 2019-07-01 Completed [facility] mL [facility] 00:00:00 [facility] Influenza Virus 2019-07-01 Completed [facility]5 mL IM 00:00:[facility] Influenza Virus 2019-07-01 Completed [facility] .5 mL IM 00:00:00 [facility] Influenza Virus 2019-07-01 Completed [facility] .5 mL IM 00:00:00 [facility] Influenza Virus 2019-07-01 Completed [facility] .5 mL IM 00:00:00 [facility] Influenza Virus 2019-07-01 Completed [facility]5 mL IM 00:00:[facility] Influenza Virus 2019-07-01 Completed [facility] .5 mL IM 00:00:00 [facility] Influenza Virus 2019-07-01 Completed [facility] .5 mL IM 00:00:00 [facility] Influenza Virus 2019-07-01 Completed [facility] .5 mL IM 00:00:00 [facility] Influenza Virus 2019-07-01 Completed [facility] .5 mL IM 00:00:00 [facility] Influenza Virus 2019-07-01 Completed [facility] .5 mL IM 00:00:00 [facility] Influenza Virus 2019-07-01 Completed [facility] .5 mL IM 00:00:00 [facility] Influenza Virus 2019-07-01 Completed [facility] .5 mL IM 00:00:[facility] Influenza Virus 2019-07-01 Completed [facility] .5 mL IM 00:00:00 [facility] Influenza Virus 2019-07-01 Completed [facility] .5 mL IM 00:00:00 [facility] Influenza Virus 2019-07-01 Completed [facility] .5 mL IM 00:00:00 [facility] Influenza Virus 2019-07-01 Completed [facility] .5 mL IM 00:00:[facility] Influenza Virus 2019-07-01 Completed [facility] .5 mL IM 00:00:00 [facility] Influenza Virus 2019-07-01 Completed [facility] .5 mL IM 00:00:[facility] Influenza Virus 2019-07-01 Completed [facility] .5 mL IM 00:00:[facility] Influenza Virus 2019-07-01 Completed [facility] .5 mL IM 00:00:[facility] Influenza Virus 2019-07-01 Completed [facility] .5 mL IM 00:00:00 [facility] Influenza Virus 2019-07-01 Completed [facility] .5 mL IM 00:00:[facility] Influenza Virus 2019-07-01 Completed [facility] .5 mL IM 00:00:[facility] Influenza Virus 2019-07-01 Completed [facility] .5 mL IM 00:00:00 [facility] Influenza Virus 2019-07-01 Completed [facility] .5 mL IM 00:00:00 [facility] Influenza Virus 2019-07-01 Completed [facility] .5 mL IM 00:00:00 [facility] Influenza Virus 2019-07-01 Completed [facility] .5 mL IM 00:00:[facility] Influenza Virus 2019-07-01 Completed [facility] .5 mL IM 00:00:[facility] Influenza Virus 2019-07-01 Completed [facility] .5 mL IM 00:00:[facility] Influenza Virus 2019-07-01 Completed [facility] .5 mL IM 00:00:[facility] Influenza Virus 2019-07-01 Completed [facility] mL [facility] 00:[facility] Influenza Virus 2019-07-01 Completed [facility] Influenza Virus 2019-07-01 Completed [facility] .5 [facility] IM [facility] Influenza Virus 2019-07-01 Completed [facility] .5 mL IM [facility]:00 [facility] Influenza Virus 2019-07-01 Completed [facility] .5 mL IM 00:00:00 [facility] Influenza Virus 2019-07-01 Completed [facility] .5 mL IM 00:[facility]:00 [facility] Influenza Virus 2019-07-01 Completed [facility] .5 mL IM 00:00:00 [facility] [place] [facility] Influenza Virus 2019-07-01 Completed [facility] .5 mL IM 00:[facility]:00 [facility] Influenza Virus 2019-07-01 Completed [facility] .5 mL IM 00:00:00 [facility] Influenza Virus 2019-07-01 Completed [facility] .5 mL IM 00:00:00 [facility] Influenza Virus 2019-07-01 Completed [facility] .5 mL IM 00:00:00 [facility] Influenza Virus 2019-07-01 Completed [facility] .5 mL IM 00:00:00 [facility] Influenza Virus 2019-07-01 Completed [facility] .5 mL IM 00:00:00 [facility] [place] Influenza Virus 2018-08-22 Completed Melinda vasquez - Vaccine, No Preserv, 00:00:00 [facility] age 6 months and up Influenza Virus 2018-08-22 Completed [facility] IM 3+ 00:00:00 [facility] Influenza Virus 2018-08-22 Completed [facility] Vaccine Quad IM 3+ 00:00:00 [facility] Influenza Virus 2018-08-22 Completed [facility] Vaccine Quad IM 3+ 00:00:00 [facility] Influenza Virus 2018-08-22 Completed [facility] Vaccine Quad IM 3+ 00:00:00 [facility] Influenza Virus 2018-08-22 Completed [facility] Vaccine Quad IM 3+ 00:00:00 [facility] Influenza Virus 2018-08-22 Completed [facility] Vaccine Quad IM 3+ 00:00:00 [facility] Influenza Virus 2018-08-22 Completed [facility] Vaccine Quad IM 3+ 00:00:00 [facility] Influenza Virus 2018-08-22 Completed [facility] Vaccine Quad IM 3+ 00:00:00 [facility] Influenza Virus 2018-08-22 Completed [facility] Vaccine Quad IM 3+ 00:00:00 [facility] Influenza Virus 2018-08-22 Completed [facility] Vaccine Quad IM 3+ 00:00:00 [facility] Influenza Virus 2018-08-22 Completed [facility] Vaccine [facility] IM 3+ 00:00:00 [facility] Influenza Virus 2018-08-22 Completed [facility] Vaccine Quad IM 3+ 00:00:00 [facility] Influenza Virus 2018-08-22 Completed [facility] Vaccine Quad IM 3+ 00:00:00 [facility] Influenza Virus 2018-08-22 Completed [facility] Vaccine Quad IM 3+ 00:00:00 [facility] Influenza Virus 2018-08-22 Completed [facility] Vaccine Quad IM 3+ 00:00:00 [facility] Influenza Virus 2018-08-22 Completed [facility] Vaccine [facility] IM 3+ 00:00:00 [facility] Influenza Virus 2018-08-22 Completed [facility] Vaccine [facility] IM 3+ 00:00:00 [facility] Influenza Virus 2018-08-22 Completed [facility] Vaccine Quad IM 3+ 00:00:00 [facility] Influenza Virus 2018-08-22 Completed [facility] Vaccine Quad IM 3+ 00:00:00 [facility] Influenza Virus 2018-08-22 Completed [facility] Vaccine [facility] IM 3+ 00:00:00 [facility] Influenza Virus 2018-08-22 Completed [facility] Vaccine [facility] IM 3+ 00:00:00 [facility] Influenza Virus 2018-08-22 Completed [facility] Vaccine [facility] IM 3+ 00:00:00 [facility] Influenza Virus 2018-08-22 Completed [facility] Vaccine Quad IM 3+ 00:00:00 [facility] Influenza Virus 2018-08-22 Completed [facility] Vaccine [facility] IM 3+ 00:00:00 [facility] Influenza Virus 2018-08-22 Completed [facility] Vaccine Quad IM 3+ 00:00:00 [facility] Influenza Virus 2018-08-22 Completed [facility] Vaccine Quad IM 3+ 00:00:00 [facility] Influenza Virus 2018-08-22 Completed [facility] Vaccine [facility] IM 3+ 00:00:00 [facility] Influenza Virus 2018-08-22 Completed [facility] Vaccine Quad IM 3+ 00:00:00 [facility] Influenza Virus 2018-08-22 Completed [facility] Vaccine Quad IM 3+ 00:00:00 [facility] Influenza Virus 2018-08-22 Completed [facility] Vaccine Quad IM 3+ 00:00:00 [facility] Influenza Virus 2018-08-22 Completed [facility] Vaccine Quad IM 3+ 00:00:00 [facility] Influenza Virus 2018-08-22 Completed [facility] Vaccine Quad IM 3+ 00:00:00 [facility] Influenza Virus 2018-08-22 Completed [facility] Vaccine Quad IM 3+ 00:00:00 [facility] Influenza Virus 2018-08-22 Completed [facility] Vaccine Quad IM 3+ 00:00:00 [facility] Influenza Virus 2018-08-22 Completed [facility] Vaccine Quad IM 3+ 00:00:00 [facility] Influenza Virus 2018-08-22 Completed [facility] Vaccine Quad IM 3+ 00:00:00 [facility] Influenza Virus 2018-08-22 Completed [facility] Vaccine Quad IM 3+ 00:00:00 [facility] Influenza Virus 2018-08-22 Completed [facility] Vaccine Quad IM 3+ 00:00:00 [facility] Influenza Virus 2018-08-22 Completed [facility] Vaccine Quad IM 3+ 00:00:00 [facility] Influenza Virus 2018-08-22 Completed [facility] Vaccine Quad IM 3+ 00:00:00 [facility] Influenza Virus 2018-08-22 Completed [facility] Vaccine Quad IM 3+ 00:00:00 [facility] Influenza Virus 2018-08-22 Completed [facility] Vaccine Quad IM 3+ 00:00:00 [facility] Influenza Virus 2018-08-22 Completed [facility] Vaccine Quad IM 3+ 00:00:00 [facility] Influenza Virus 2018-08-22 Completed [facility] Vaccine Quad IM 3+ 00:00:00 [facility] Influenza Virus 2018-08-22 Completed [facility] Vaccine Quad IM 3+ 00:00:00 [facility] Influenza Virus 2018-08-22 Completed [facility] Vaccine Quad IM 3+ 00:00:00 [facility] Influenza Virus 2018-08-22 Completed [facility] Vaccine [facility] IM 3+ 00:00:00 [facility] Influenza Virus 2018-08-22 Completed [facility] Vaccine Quad IM 3+ 00:00:00 [facility] Influenza Virus 2018-08-22 Completed [facility] Vaccine [facility] IM 3+ 00:00:00 [facility] Influenza Virus 2018-08-22 Completed [facility] Vaccine [facility] IM 3+ 00:00:00 [facility] Influenza Virus 2018-08-22 Completed [facility] Vaccine [facility] IM 3+ 00:00:00 [facility] Influenza Virus 2018-08-22 Completed [facility] Vaccine [facility] IM 3+ 00:00:00 [facility] Influenza Virus 2018-08-22 Completed [facility] Vaccine [facility] IM 3+ 00:00:00 [facility] Influenza Virus 2018-08-22 Completed [facility] Vaccine Quad IM 3+ 00:00:00 [facility] Influenza Virus 2018-08-22 Completed [facility] Vaccine [facility] IM 3+ 00:00:00 [facility] Influenza Virus 2018-08-22 Completed [facility] Vaccine Quad IM 3+ 00:00:00 [facility] Influenza Virus 2018-08-22 Completed [facility] Vaccine Quad IM 3+ 00:00:00 [facility] Influenza Virus 2018-08-22 Completed [facility] Vaccine Quad IM 3+ 00:00:00 [facility] Influenza Virus 2018-08-22 Completed [facility] Vaccine [facility] IM 3+ 00:00:00 [facility] Influenza Virus 2018-08-22 Completed [facility] Vaccine Quad IM 3+ 00:00:00 [facility] Influenza Virus 2018-08-22 Completed [facility] Vaccine Quad IM 3+ 00:00:00 [facility] Influenza Virus 2018-08-22 Completed [facility] Vaccine Quad IM 3+ 00:00:00 [facility] Influenza Virus 2018-08-22 Completed [facility] Vaccine Quad IM 3+ 00:00:00 [facility] Influenza Virus 2018-08-22 Completed [facility] Vaccine Quad IM 3+ 00:00:00 [facility] Influenza Virus 2018-08-22 Completed [facility] Vaccine Quad IM 3+ 00:00:00 [facility] Influenza Virus 2018-08-22 Completed [facility] Vaccine Quad IM 3+ 00:00:00 [facility] Influenza Virus 2018-08-22 Completed [facility] Vaccine Quad IM 3+ 00:00:00 [facility] Influenza Virus 2018-08-22 Completed [facility] Vaccine Quad IM 3+ 00:00:00 [facility] Influenza Virus 2018-08-22 Completed [facility] Vaccine Quad IM 3+ 00:00:00 [facility] Influenza Virus 2018-08-22 Completed [facility] Vaccine Quad IM 3+ 00:00:00 [facility] Influenza Virus 2018-08-22 Completed [facility] Vaccine Quad IM 3+ 00:00:00 [facility] Influenza Virus 2018-08-22 Completed [facility] Vaccine Quad IM 3+ 00:00:00 [facility] Influenza Virus 2018-08-22 Completed [facility] Vaccine Quad IM 3+ 00:00:00 [facility] Influenza Virus 2018-08-22 Completed [facility] Vaccine Quad IM 3+ 00:00:00 [facility] Influenza Virus 2018-08-22 Completed [facility] Vaccine [facility] IM 3+ 00:00:00 [facility] Influenza Virus 2018-08-22 Completed [facility] Vaccine Quad IM 3+ 00:00:00 [facility] Influenza Virus 2018-08-22 Completed [facility] Vaccine [facility] IM 3+ 00:00:00 [facility] Pneumococcal Vaccine, 2017-11-23 Completed Roshan Drew - Conjugate 13 00:00:00 External Pneumococcal 13 2017-11-23 Completed [facility] Conjugate, PCV13 00:00:00 [place] [facility] (Prevnar 13) [facility] Pneumococcal 13 2017-11-23 Completed [facility] Conjugate, PCV13 00:00:00 [place] [facility] (Prevnar 13) Branch Pneumococcal 13 2017-11-23 Completed [facility] Conjugate, PCV13 00:00:00 [place] [facility] (Prevnar 13) Branch Pneumococcal 13 2017-11-23 Completed [facility] Conjugate, PCV13 00:00:00 [place] [facility] (Prevnar 13) Branch Pneumococcal 13 2017-11-23 Completed [facility] Conjugate, PCV13 00:00:00 [place] [facility] (Prevnar 13) Branch Pneumococcal 13 2017-11-23 Completed [facility] Conjugate, PCV13 00:00:00 [place] [facility] (Prevnar 13) Branch Pneumococcal 13 2017-11-23 Completed [facility] Conjugate, PCV13 00:00:00 [place] [facility] (Prevnar 13) Branch Pneumococcal 13 2017-11-23 Completed [facility] Conjugate, PCV13 00:00:00 [place] [facility] (Prevnar 13) Branch Pneumococcal 13 2017-11-23 Completed [facility] Conjugate, PCV13 00:00:00 [place] [facility] (Prevnar 13) Branch Pneumococcal 13 2017-11-23 Completed [facility] Conjugate, PCV13 00:00:00 [place] [facility] (Prevnar 13) Branch Pneumococcal 13 2017-11-23 Completed [facility] Conjugate, PCV13 00:00:00 [place] [facility] (Prevnar 13) Branch Pneumococcal 13 2017-11-23 Completed [facility] Conjugate, PCV13 00:00:00 [place] [facility] (Prevnar 13) Branch Pneumococcal 13 2017-11-23 Completed [facility] Conjugate, PCV13 00:00:00 [place] [facility] (Prevnar 13) Branch Pneumococcal 13 2017-11-23 Completed [facility] Conjugate, PCV13 00:00:00 [place] [facility] (Prevnar 13) Branch Pneumococcal 13 2017-11-23 Completed [facility] Conjugate, PCV13 00:00:00 [place] [facility] (Prevnar 13) Branch Pneumococcal 13 2017-11-23 Completed [facility] Conjugate, PCV13 00:00:00 [place] [facility] (Prevnar 13) Branch Pneumococcal 13 2017-11-23 Completed [facility] Conjugate, PCV13 00:00:00 [place] [facility] (Prevnar 13) Branch Pneumococcal 13 2017-11-23 Completed [facility] Conjugate, PCV13 00:00:00 [place] [facility] (Prevnar 13) Branch Pneumococcal 13 2017-11-23 Completed [facility] Conjugate, PCV13 00:00:00 [place] [facility] (Prevnar 13) Branch Pneumococcal 13 2017-11-23 Completed [facility] Conjugate, PCV13 00:00:00 [place] [facility] (Prevnar 13) Branch Pneumococcal 13 2017-11-23 Completed [facility] Conjugate, PCV13 00:00:00 [place] [facility] (Prevnar 13) Branch Pneumococcal 13 2017-11-23 Completed [facility] Conjugate, PCV13 00:00:00 [place] [facility] (Prevnar 13) Branch Pneumococcal 13 2017-11-23 Completed [facility] Conjugate, PCV13 00:00:00 [place] [facility] (Prevnar 13) Branch Pneumococcal 13 2017-11-23 Completed [facility] Conjugate, PCV13 00:00:00 [place] [facility] (Prevnar 13) Branch Pneumococcal 13 2017-11-23 Completed [facility] Conjugate, PCV13 00:00:00 [place] [facility] (Prevnar 13) Branch Pneumococcal 13 2017-11-23 Completed [facility] Conjugate, PCV13 00:00:00 [place] [facility] (Prevnar 13) Branch Pneumococcal 13 2017-11-23 Completed [facility] Conjugate, PCV13 00:00:00 [place] [facility] (Prevnar 13) Branch Pneumococcal 13 2017-11-23 Completed [facility] Conjugate, PCV13 00:00:00 [place] [facility] (Prevnar 13) Branch Pneumococcal 13 2017-11-23 Completed [facility] Conjugate, PCV13 00:00:00 [place] [facility] (Prevnar 13) Branch Pneumococcal 13 2017-11-23 Completed [facility] Conjugate, PCV13 00:00:00 [place] [facility] (Prevnar 13) Branch Pneumococcal 13 2017-11-23 Completed [facility] Conjugate, PCV13 00:00:00 [place] [facility] (Prevnar 13) Branch Pneumococcal 13 2017-11-23 Completed [facility] Conjugate, PCV13 00:00:00 [place] [facility] (Prevnar 13) Branch Pneumococcal 13 2017-11-23 Completed [facility] Conjugate, PCV13 00:00:00 [place] [facility] (Prevnar 13) Branch Pneumococcal 13 2017-11-23 Completed [facility] Conjugate, PCV13 00:00:00 [place] [facility] (Prevnar 13) Branch Pneumococcal 13 2017-11-23 Completed [facility] Conjugate, PCV13 00:00:00 [place] [facility] (Prevnar 13) Branch Pneumococcal 13 2017-11-23 Completed [facility] Conjugate, PCV13 00:00:00 [place] [facility] (Prevnar 13) Branch Pneumococcal 13 2017-11-23 Completed [facility] Conjugate, PCV13 00:00:00 [place] [facility] (Prevnar 13) Branch Pneumococcal 13 2017-11-23 Completed [facility] Conjugate, PCV13 00:00:00 [place] [facility] (Prevnar 13) Branch Pneumococcal 13 2017-11-23 Completed [facility] Conjugate, PCV13 00:00:00 [place] [facility] (Prevnar 13) Branch Pneumococcal 13 2017-11-23 Completed [facility] Conjugate, PCV13 00:00:00 [place] [facility] (Prevnar 13) Branch Pneumococcal 13 2017-11-23 Completed [facility] Conjugate, PCV13 00:00:00 [place] [facility] (Prevnar 13) Branch Pneumococcal 13 2017-11-23 Completed [facility] Conjugate, PCV13 00:00:00 [place] [facility] (Prevnar 13) Branch Pneumococcal 13 2017-11-23 Completed [facility] Conjugate, PCV13 00:00:00 [place] [facility] (Prevnar 13) Branch Pneumococcal 13 2017-11-23 Completed [facility] Conjugate, PCV13 00:00:00 [place] [facility] (Prevnar 13) Branch Pneumococcal 13 2017-11-23 Completed [facility] Conjugate, PCV13 00:00:00 [place] [facility] (Prevnar 13) Branch Pneumococcal 13 2017-11-23 Completed [facility] Conjugate, PCV13 00:00:00 [place] [facility] (Prevnar 13) Branch Pneumococcal 13 2017-11-23 Completed [facility] Conjugate, PCV13 00:00:00 [place] [facility] (Prevnar 13) Branch Pneumococcal 13 2017-11-23 Completed [facility] Conjugate, PCV13 00:00:00 [place] [facility] (Prevnar 13) Branch Pneumococcal 13 2017-11-23 Completed [facility] Conjugate, PCV13 00:00:00 [place] [facility] (Prevnar 13) Branch Pneumococcal 13 2017-11-23 Completed [facility] Conjugate, PCV13 00:00:00 [place] [facility] (Prevnar 13) Branch Pneumococcal 13 2017-11-23 Completed [facility] Conjugate, PCV13 00:00:00 [place] [facility] (Prevnar 13) Branch Pneumococcal 13 2017-11-23 Completed [facility] Conjugate, PCV13 00:00:00 [place] [facility] (Prevnar 13) Branch Pneumococcal 13 2017-11-23 Completed [facility] Conjugate, PCV13 00:00:00 [place] [facility] (Prevnar 13) Branch Pneumococcal 13 2017-11-23 Completed [facility] Conjugate, PCV13 00:00:00 [place] [facility] (Prevnar 13) Branch Pneumococcal 13 2017-11-23 Completed [facility] Conjugate, PCV13 00:00:00 [place] [facility] (Prevnar 13) Branch Pneumococcal 13 2017-11-23 Completed [facility] Conjugate, PCV13 00:00:00 [place] [facility] (Prevnar 13) Branch Pneumococcal 13 2017-11-23 Completed [facility] Conjugate, PCV13 00:00:00 [place] [facility] (Prevnar 13) Branch Pneumococcal 13 2017-11-23 Completed [facility] Conjugate, PCV13 00:00:00 [place] [facility] (Prevnar 13) Branch Pneumococcal 13 2017-11-23 Completed [facility] Conjugate, PCV13 00:00:00 [place] [facility] (Prevnar 13) Branch Pneumococcal 13 2017-11-23 Completed [facility] Conjugate, PCV13 00:00:00 [place] [facility] (Prevnar 13) Branch Pneumococcal 13 2017-11-23 Completed [facility] Conjugate, PCV13 00:00:00 [place] [facility] (Prevnar 13) Branch Pneumococcal 13 2017-11-23 Completed [facility] Conjugate, PCV13 00:00:00 [place] [facility] (Prevnar 13) Branch Pneumococcal 13 2017-11-23 Completed [facility] Conjugate, PCV13 00:00:00 [place] [facility] (Prevnar 13) Branch Pneumococcal 13 2017-11-23 Completed [facility] Conjugate, PCV13 00:00:00 [place] [facility] (Prevnar 13) Branch Pneumococcal 13 2017-11-23 Completed [facility] Conjugate, PCV13 00:00:00 [place] [facility] (Prevnar 13) Branch Pneumococcal 13 2017-11-23 Completed [facility] Conjugate, PCV13 00:00:00 [place] [facility] (Prevnar 13) Branch Pneumococcal 13 2017-11-23 Completed [facility] Conjugate, PCV13 00:00:00 [place] [facility] (Prevnar 13) Branch Pneumococcal 13 2017-11-23 Completed [facility] Conjugate, PCV13 00:00:00 [place] [facility] (Prevnar 13) Branch Pneumococcal 13 2017-11-23 Completed [facility] Conjugate, PCV13 00:00:00 [place] [facility] (Prevnar 13) Branch Pneumococcal 13 2017-11-23 Completed [facility] Conjugate, PCV13 00:00:00 [place] [facility] (Prevnar 13) Branch Pneumococcal 13 2017-11-23 Completed [facility] Conjugate, PCV13 00:00:00 [place] [facility] (Prevnar 13) Branch Pneumococcal 13 2017-11-23 Completed [facility] Conjugate, PCV13 00:00:00 [place] [facility] (Prevnar 13) Branch Pneumococcal 13 2017-11-23 Completed [facility] Conjugate, PCV13 00:00:00 [place] [facility] (Prevnar 13) Branch Pneumococcal 13 2017-11-23 Completed [facility] Conjugate, PCV13 00:00:00 [place] [facility] (Prevnar 13) Branch Pneumococcal 13 2017-11-23 Completed [facility] Conjugate, PCV13 00:00:00 [place] [facility] (Prevnar 13) Branch Pneumococcal 13 2017-11-23 Completed [facility] Conjugate, PCV13 00:00:00 [place] [facility] (Prevnar 13) Branch Pneumococcal 13 2017-11-23 Completed [facility] Conjugate, PCV13 00:00:00 [place] [facility] (Prevnar 13) Branch pneumococcal 2013-11-30 Completed [facility] 23-valent vaccine 22:02:00 Pneumococcal Vaccine, 2013-11-30 Completed Roshan Drew - Polysaccharide 00:00:00 External Pneumococcal 2013-11-30 Completed [facility] Polysaccharide, 00:00:00 [place] [facility] PPSV23 (PNEUMOVAX) Branch Pneumococcal 2013-11-30 Completed [facility] f Polysaccharide, 00:00:00 [place] [facility] PPSV23 (PNEUMOVAX) Branch Pneumococcal 2013-11-30 Completed [facility] f Polysaccharide, 00:00:00 [place] [facility] PPSV23 (PNEUMOVAX) Branch Pneumococcal 2013-11-30 Completed [facility] f Polysaccharide, 00:00:00 [place] [facility] PPSV23 (PNEUMOVAX) Branch Pneumococcal 2013-11-30 Completed [facility] f Polysaccharide, 00:00:00 [place] [facility] PPSV23 (PNEUMOVAX) Branch Pneumococcal 2013-11-30 Completed [facility] f Polysaccharide, 00:00:00 [place] [facility] PPSV23 (PNEUMOVAX) Branch Pneumococcal 2013-11-30 Completed [facility] f Polysaccharide, 00:00:00 [place] [facility] PPSV23 (PNEUMOVAX) Branch Pneumococcal 2013-11-30 Completed [facility] f Polysaccharide, 00:00:00 [place] [facility] PPSV23 (PNEUMOVAX) Branch Pneumococcal 2013-11-30 Completed [facility] f Polysaccharide, 00:00:00 [place] [facility] PPSV23 (PNEUMOVAX) Branch Pneumococcal 2013-11-30 Completed [facility] f Polysaccharide, 00:00:00 [place] [facility] PPSV23 (PNEUMOVAX) Branch Pneumococcal 2013-11-30 Completed [facility] f Polysaccharide, 00:00:00 [place] [facility] PPSV23 (PNEUMOVAX) Branch Pneumococcal 2013-11-30 Completed [facility] f Polysaccharide, 00:00:00 [place] [facility] PPSV23 (PNEUMOVAX) Branch Pneumococcal 2013-11-30 Completed [facility] f Polysaccharide, 00:00:00 [place] [facility] PPSV23 (PNEUMOVAX) Branch Pneumococcal 2013-11-30 Completed [facility] f Polysaccharide, 00:00:00 [place] [facility] PPSV23 (PNEUMOVAX) Branch Pneumococcal 2013-11-30 Completed [facility] f Polysaccharide, 00:00:00 [place] [facility] PPSV23 (PNEUMOVAX) Branch Pneumococcal 2013-11-30 Completed [facility] f Polysaccharide, 00:00:00 [place] [facility] PPSV23 (PNEUMOVAX) Branch Pneumococcal 2013-11-30 Completed [facility] f Polysaccharide, 00:00:00 [place] [facility] PPSV23 (PNEUMOVAX) Branch Pneumococcal 2013-11-30 Completed [facility] f Polysaccharide, 00:00:00 [place] [facility] PPSV23 (PNEUMOVAX) Branch Pneumococcal 2013-11-30 Completed [facility] f Polysaccharide, 00:00:00 [place] [facility] PPSV23 (PNEUMOVAX) Branch Pneumococcal 2013-11-30 Completed [facility] f Polysaccharide, 00:00:00 [place] [facility] PPSV23 (PNEUMOVAX) Branch Pneumococcal 2013-11-30 Completed [facility] f Polysaccharide, 00:00:00 [place] [facility] PPSV23 (PNEUMOVAX) Branch Pneumococcal 2013-11-30 Completed [facility] f Polysaccharide, 00:00:00 [place] [facility] PPSV23 (PNEUMOVAX) Branch Pneumococcal 2013-11-30 Completed [facility] f Polysaccharide, 00:00:00 [place] [facility] PPSV23 (PNEUMOVAX) Branch Pneumococcal 2013-11-30 Completed [facility] f Polysaccharide, 00:00:00 [place] [facility] PPSV23 (PNEUMOVAX) Branch Pneumococcal 2013-11-30 Completed [facility] f Polysaccharide, 00:00:00 [place] [facility] PPSV23 (PNEUMOVAX) Branch Pneumococcal 2013-11-30 Completed [facility] f Polysaccharide, 00:00:00 [place] [facility] PPSV23 (PNEUMOVAX) Branch Pneumococcal 2013-11-30 Completed [facility] f Polysaccharide, 00:00:00 [place] [facility] PPSV23 (PNEUMOVAX) Branch Pneumococcal 2013-11-30 Completed [facility] f Polysaccharide, 00:00:00 [place] [facility] PPSV23 (PNEUMOVAX) Branch Pneumococcal 2013-11-30 Completed [facility] f Polysaccharide, 00:00:00 [place] [facility] PPSV23 (PNEUMOVAX) Branch Pneumococcal 2013-11-30 Completed [facility] f Polysaccharide, 00:00:00 [place] [facility] PPSV23 (PNEUMOVAX) Branch Pneumococcal 2013-11-30 Completed [facility] f Polysaccharide, 00:00:00 [place] [facility] PPSV23 (PNEUMOVAX) Branch Pneumococcal 2013-11-30 Completed [facility] f Polysaccharide, 00:00:00 [place] [facility] PPSV23 (PNEUMOVAX) Branch Pneumococcal 2013-11-30 Completed [facility] f Polysaccharide, 00:00:00 [place] [facility] PPSV23 (PNEUMOVAX) Branch Pneumococcal 2013-11-30 Completed [facility] f Polysaccharide, 00:00:00 [place] [facility] PPSV23 (PNEUMOVAX) Branch Pneumococcal 2013-11-30 Completed [facility] f Polysaccharide, 00:00:00 [place] [facility] PPSV23 (PNEUMOVAX) Branch Pneumococcal 2013-11-30 Completed [facility] f Polysaccharide, 00:00:00 [place] [facility] PPSV23 (PNEUMOVAX) Branch Pneumococcal 2013-11-30 Completed [facility] f Polysaccharide, 00:00:00 [place] [facility] PPSV23 (PNEUMOVAX) Branch Pneumococcal 2013-11-30 Completed [facility] f Polysaccharide, 00:00:00 [place] [facility] PPSV23 (PNEUMOVAX) Branch Pneumococcal 2013-11-30 Completed [facility] f Polysaccharide, 00:00:00 [place] [facility] PPSV23 (PNEUMOVAX) Branch Pneumococcal 2013-11-30 Completed [facility] f Polysaccharide, 00:00:00 [place] [facility] PPSV23 (PNEUMOVAX) Branch Pneumococcal 2013-11-30 Completed [facility] f Polysaccharide, 00:00:00 [place] [facility] PPSV23 (PNEUMOVAX) Branch Pneumococcal 2013-11-30 Completed [facility] f Polysaccharide, 00:00:00 [place] [facility] PPSV23 (PNEUMOVAX) Branch Pneumococcal 2013-11-30 Completed [facility] f Polysaccharide, 00:00:00 [place] [facility] PPSV23 (PNEUMOVAX) Branch Pneumococcal 2013-11-30 Completed [facility] f Polysaccharide, 00:00:00 [place] [facility] PPSV23 (PNEUMOVAX) Branch Pneumococcal 2013-11-30 Completed [facility] f Polysaccharide, 00:00:00 [place] [facility] PPSV23 (PNEUMOVAX) Branch Pneumococcal 2013-11-30 Completed [facility] f Polysaccharide, 00:00:00 [place] [facility] PPSV23 (PNEUMOVAX) Branch Pneumococcal 2013-11-30 Completed [facility] f Polysaccharide, 00:00:00 [place] [facility] PPSV23 (PNEUMOVAX) Branch Pneumococcal 2013-11-30 Completed [facility] f Polysaccharide, 00:00:00 [place] [facility] PPSV23 (PNEUMOVAX) Branch Pneumococcal 2013-11-30 Completed [facility] f Polysaccharide, 00:00:00 [place] [facility] PPSV23 (PNEUMOVAX) Branch Pneumococcal 2013-11-30 Completed [facility] f Polysaccharide, 00:00:00 [place] [facility] PPSV23 (PNEUMOVAX) Branch Pneumococcal 2013-11-30 Completed [facility] Polysaccharide, 00:00:00 [place] [facility] PPSV23 (PNEUMOVAX) Branch Pneumococcal 2013-11-30 Completed [facility] Polysaccharide, 00:00:00 [place] [facility] PPSV23 (PNEUMOVAX) Branch Pneumococcal 2013-11-30 Completed [facility] Polysaccharide, 00:00:00 [place] [facility] PPSV23 (PNEUMOVAX) Branch Pneumococcal 2013-11-30 Completed [facility] Polysaccharide, 00:00:00 [place] [facility] PPSV23 (PNEUMOVAX) Branch Pneumococcal 2013-11-30 Completed [facility] f Polysaccharide, 00:00:00 [place] [facility] PPSV23 (PNEUMOVAX) Branch Pneumococcal 2013-11-30 Completed [facility] f Polysaccharide, 00:00:00 [place] [facility] PPSV23 (PNEUMOVAX) Branch Pneumococcal 2013-11-30 Completed [facility] Polysaccharide, 00:00:00 [place] [facility] PPSV23 (PNEUMOVAX) Branch Pneumococcal 2013-11-30 Completed [facility] Polysaccharide, 00:00:00 [place] [facility] PPSV23 (PNEUMOVAX) Branch Pneumococcal 2013-11-30 Completed [facility] Polysaccharide, 00:00:00 [place] [facility] PPSV23 (PNEUMOVAX) Branch Pneumococcal 2013-11-30 Completed [facility] Polysaccharide, 00:00:00 [place] [facility] PPSV23 (PNEUMOVAX) Branch Pneumococcal 2013-11-30 Completed [facility] f Polysaccharide, 00:00:00 [place] [facility] PPSV23 (PNEUMOVAX) Branch Pneumococcal 2013-11-30 Completed [facility] f Polysaccharide, 00:00:00 [place] [facility] PPSV23 (PNEUMOVAX) Branch Pneumococcal 2013-11-30 Completed [facility] f Polysaccharide, 00:00:00 [place] [facility] PPSV23 (PNEUMOVAX) Branch Pneumococcal 2013-11-30 Completed [facility] f Polysaccharide, 00:00:00 [place] [facility] PPSV23 (PNEUMOVAX) Branch Pneumococcal 2013-11-30 Completed [facility] f Polysaccharide, 00:00:00 [place] [facility] PPSV23 (PNEUMOVAX) Branch Pneumococcal 2013-11-30 Completed [facility] f Polysaccharide, 00:00:00 [place] [facility] PPSV23 (PNEUMOVAX) Branch Pneumococcal 2013-11-30 Completed [facility] f Polysaccharide, 00:00:00 [place] [facility] PPSV23 (PNEUMOVAX) Branch Pneumococcal 2013-11-30 Completed [facility] f Polysaccharide, 00:00:00 [place] [facility] PPSV23 (PNEUMOVAX) Branch Pneumococcal 2013-11-30 Completed [facility] f Polysaccharide, 00:00:00 [place] [facility] PPSV23 (PNEUMOVAX) Branch Pneumococcal 2013-11-30 Completed [facility] f Polysaccharide, 00:00:00 [place] [facility] PPSV23 (PNEUMOVAX) Branch Pneumococcal 2013-11-30 Completed [facility] f Polysaccharide, 00:00:00 [place] [facility] PPSV23 (PNEUMOVAX) Branch Pneumococcal 2013-11-30 Completed [facility] f Polysaccharide, 00:00:00 [place] [facility] PPSV23 (PNEUMOVAX) Branch Pneumococcal 2013-11-30 Completed [facility] f Polysaccharide, 00:00:00 [place] [facility] PPSV23 (PNEUMOVAX) Branch Pneumococcal 2013-11-30 Completed [facility] f Polysaccharide, 00:00:00 [place] [facility] PPSV23 (PNEUMOVAX) Branch Pneumococcal 2013-11-30 Completed [facility] f Polysaccharide, 00:00:00 [place] [facility] PPSV23 (PNEUMOVAX) Branch Pneumococcal 2013-11-30 Completed [facility] f Polysaccharide, 00:00:00 [place] [facility] PPSV23 (PNEUMOVAX) Branch Pneumococcal 2013-11-30 Completed [facility] f Polysaccharide, 00:00:00 [place] [facility] PPSV23 (PNEUMOVAX) Branch influenza virus 2013-11-26 Completed [facility] vaccine, inactivated 23:20:00 Influenza Virus 2013-11-26 Completed Melinda vasquez - Vaccine, Unspecified 00:00:00 Exte rnal Formulation Influenza Virus 2013-11-26 Completed [facility]it [facility] Vaccine 00:00:00 [facility] Influenza Virus 2013-11-26 Completed [facility]it [facility] of Vaccine 00:00:00 [facility] Influenza Virus 2013-11-26 Completed [facility] of Vaccine 00:00:00 [facility] Influenza Virus 2013-11-26 Completed [facility] of Vaccine 00:00:00 [facility] Influenza Virus 2013-11-26 Completed [facility] of Vaccine 00:00:00 [facility] Influenza Virus 2013-11-26 Completed [facility] of Vaccine 00:00:00 [facility] Influenza Virus 2013-11-26 Completed [facility]it [facility] of Vaccine 00:00:00 [facility] Influenza Virus 2013-11-26 Completed [facility] of Vaccine 00:00:00 [facility] Influenza Virus 2013-11-26 Completed [facility] of Vaccine 00:00:00 [facility] Influenza Virus 2013-11-26 Completed [facility] of Vaccine 00:00:00 [facility] Influenza Virus 2013-11-26 Completed [facility] of Vaccine 00:00:00 [facility] Influenza Virus 2013-11-26 Completed [facility] of Vaccine 00:00:00 [facility] Influenza Virus 2013-11-26 Completed [facility] of Vaccine 00:00:00 [facility] Influenza Virus 2013-11-26 Completed [facility] of Vaccine 00:00:00 [facility] Influenza Virus 2013-11-26 Completed [facility] of Vaccine 00:00:00 [facility] Influenza Virus 2013-11-26 Completed [facility] of Vaccine 00:00:00 [facility] Influenza Virus 2013-11-26 Completed [facility] of Vaccine 00:00:00 [facility] Influenza Virus 2013-11-26 Completed [facility] of Vaccine 00:00:00 [facility] Influenza Virus 2013-11-26 Completed [facility] of Vaccine 00:00:00 [facility] Influenza Virus 2013-11-26 Completed [facility] of Vaccine 00:00:00 [facility] Influenza Virus 2013-11-26 Completed [facility] of Vaccine 00:00:00 [facility] Influenza Virus 2013-11-26 Completed [facility] of Vaccine 00:00:00 [facility] Influenza Virus 2013-11-26 Completed [facility] of Vaccine 00:00:00 [facility] Influenza Virus 2013-11-26 Completed [facility] of Vaccine 00:00:00 [facility] Influenza Virus 2013-11-26 Completed [facility] of Vaccine 00:00:00 [facility] Influenza Virus 2013-11-26 Completed [facility] of Vaccine 00:00:00 [facility] Influenza Virus 2013-11-26 Completed [facility] of Vaccine 00:00:00 [facility] Influenza Virus 2013-11-26 Completed [facility] of Vaccine 00:00:00 [facility] Influenza Virus 2013-11-26 Completed [facility] of Vaccine 00:00:00 [facility] Influenza Virus 2013-11-26 Completed [facility] of Vaccine 00:00:00 [facility] Influenza Virus 2013-11-26 Completed [facility] of Vaccine 00:00:00 [facility] Influenza Virus 2013-11-26 Completed [facility] of Vaccine 00:00:00 [facility] Influenza Virus 2013-11-26 Completed [facility] of Vaccine 00:00:00 [facility] Influenza Virus 2013-11-26 Completed [facility] of Vaccine 00:00:00 [facility] Influenza Virus 2013-11-26 Completed [facility] of Vaccine 00:00:00 [facility] Influenza Virus 2013-11-26 Completed [facility] of Vaccine 00:00:00 [facility] Influenza Virus 2013-11-26 Completed [facility] of Vaccine 00:00:00 [facility] Influenza Virus 2013-11-26 Completed [facility]it y of Vaccine 00:00:00 [facility] Influenza Virus 2013-11-26 Completed [facility] of Vaccine 00:00:00 [facility] Influenza Virus 2013-11-26 Completed [facility] of Vaccine 00:00:00 [facility] Influenza Virus 2013-11-26 Completed [facility] of Vaccine 00:00:00 [facility] Influenza Virus 2013-11-26 Completed [facility] of Vaccine 00:00:00 [facility] Influenza Virus 2013-11-26 Completed [facility] y of Vaccine 00:00:00 [facility] Influenza Virus 2013-11-26 Completed [facility]it y of Vaccine 00:00:00 [facility] Influenza Virus 2013-11-26 Completed [facility]it [facility] of Vaccine 00:00:00 [facility] Influenza Virus 2013-11-26 Completed [facility]it y of Vaccine 00:00:00 [facility] Influenza Virus 2013-11-26 Completed [facility]it y of Vaccine 00:00:00 [facility] Influenza Virus 2013-11-26 Completed [facility] of Vaccine 00:00:00 [facility] Influenza Virus 2013-11-26 Completed [facility] of Vaccine 00:00:00 [facility] Influenza Virus 2013-11-26 Completed [facility]it y of Vaccine 00:00:00 [facility] Influenza Virus 2013-11-26 Completed [facility]it y of Vaccine 00:00:00 [facility] Influenza Virus 2013-11-26 Completed [facility]it y of Vaccine 00:00:00 [facility] Influenza Virus 2013-11-26 Completed [facility] y of Vaccine 00:00:00 [facility] Influenza Virus 2013-11-26 Completed [facility]it y of Vaccine 00:00:00 [facility] Influenza Virus 2013-11-26 Completed [facility] y of Vaccine 00:00:00 [facility] Influenza Virus 2013-11-26 Completed [facility]it y of Vaccine 00:00:00 [facility] Influenza Virus 2013-11-26 Completed [facility]it y of Vaccine 00:00:00 [facility] Influenza Virus 2013-11-26 Completed [facility]it y of Vaccine 00:00:00 [facility] Influenza Virus 2013-11-26 Completed [facility]it y of Vaccine 00:00:00 [facility] Influenza Virus 2013-11-26 Completed [facility]it y of Vaccine 00:00:00 [facility] Influenza Virus 2013-11-26 Completed [facility]it y of Vaccine 00:00:00 [facility] Influenza Virus 2013-11-26 Completed [facility]it y of Vaccine 00:00:00 [facility] Influenza Virus 2013-11-26 Completed [facility]it y of Vaccine 00:00:00 [facility] Influenza Virus 2013-11-26 Completed [facility]it y of Vaccine 00:00:00 [facility] Influenza Virus 2013-11-26 Completed [facility]it y of Vaccine 00:00:00 [facility] Influenza Virus 2013-11-26 Completed [facility]it y of Vaccine 00:00:00 [facility] Influenza Virus 2013-11-26 Completed [facility]it y of Vaccine 00:00:00 [facility] Influenza Virus 2013-11-26 Completed [facility]it y of Vaccine 00:00:00 [facility] Influenza Virus 2013-11-26 Completed [facility]it y of Vaccine 00:00:00 [facility] Influenza Virus 2013-11-26 Completed [facility]it y of Vaccine 00:00:00 [facility] Influenza Virus 2013-11-26 Completed [facility]it y of Vaccine 00:00:00 [facility] Influenza Virus 2013-11-26 Completed [facility]it y of Vaccine 00:00:00 [facility] Influenza Virus 2013-11-26 Completed [facility]it y of Vaccine 00:00:00 [facility] Influenza Virus 2013-11-26 Completed [facility]it y of Vaccine 00:00:00 [facility] Influenza Virus 2013-11-26 Completed [facility]it y of Vaccine 00:00:00 [facility] Influenza Virus 2013-11-26 Completed [facility]it y of Vaccine 00:00:00 [facility] Influenza Virus 2013-11-26 Completed Universit y of Vaccine 00:00:00 [facility] Vital Signs Vital Name Observation Time Observation Value Comments Source Systolic blood 2023-01-15 127 mm[Hg] University of pressure 18:21:00 [facility] Diastolic blood 2023-01-15 81 mm[Hg] University o f pressure 18:21:00 [facility] Heart rate 2023-01-15 78 /min [facility] 18:21:00 [facility] Body temperature 2023-01-15 36.83 Nusrat [facility] 18:21:00 [facility] Body height 2023-01-15 147.3 cm [facility] 18:21:00 [facility] Body weight 2023-01-15 75.297 kg [facility] 18:21:00 [facility] BMI 2023-01-15 34.69 kg/m2 [facility] 18:21:00 [facility] Systolic blood 2022-12-31 114 mm[Hg] Melinda Seybol d - pressure 14:32:00 External Diastolic blood 2022-12-31 70 mm[Hg] Melinda Seybo ld - pressure 14:32:00 External Heart rate 2022-12-31 101 /min Melinda Seybold - 14:32:00 External Body temperature 2022-12-31 36 Nusrat Melinda Seyb old - 14:32:00 External Respiratory rate 2022-12-31 14 /min Melinda Seyb old - 14:32:00 External Body height 2022-12-31 147.3 cm Melinda Seybold - 14:32:00 External Body weight 2022-12-31 74.844 kg Melinda Seybold - 14:32: External BMI 2022-12-31 34.49 kg/m2 Melinda Seybold - 14:32:00 External Body weight 2022-11-26 72.122 kg Melinda Seybold - 16:08:00 External BMI 2022-11-26 33.23 kg/m2 Melinda Seybold - 16:08:00 External Systolic blood 2022-11-15 118 mm[Hg] Melinda Seybol d - pressure 15:26:00 External Diastolic blood 2022-11-15 80 mm[Hg] Melinda Seybo ld - pressure 15:26:00 External Heart rate 2022-11-15 85 /min Melinda Seybold - 15:26:00 External Body temperature 2022-11-15 36.67 Nusrat Melinda Seyb old - 15:26:00 External Body height 2022-11-15 147.3 cm Melinda Alvesybold - 15:26:00 External Body weight 2022-11-15 72.122 kg Melinda Alvesybold - 15:26:00 External BMI 2022-11-15 33.23 kg/m2 Melinda Alvesybold - 15:26:00 External Systolic blood 2022-11-06 107 mm[Hg] University of pressure 16:07:00 [facility] Diastolic blood 2022-11-06 71 mm[Hg] University o f pressure 16:07:00 [facility] Heart rate 2022-11-06 91 /min University 16:07:00 [facility] Body temperature 2022-11-06 36.72 Nusrat University 16:07:00 [facility] Respiratory rate 2022-11-06 18 /min University 16:07:00 [facility] Body height 2022-11-06 147.3 cm University 16:07:00 [facility] Body weight 2022-11-06 72.213 kg University 16:07:00 [facility] BMI 2022-11-06 33.27 kg/m2 University 16:07:00 [facility] Systolic blood 2022-10-29 121 mm[Hg] Melinda Snyderol d - pressure 21:12:00 External Diastolic blood 2022-10-29 76 mm[Hg] Melinda Snydero ld - pressure 21:12:00 External Heart rate 2022-10-29 100 /min Melinda ybold - 21:12:00 External Body temperature 2022-10-29 36.94 Nusrat Melinda Snyder old - 21:12:00 External Respiratory rate 2022-10-29 14 /min Melinda Snyder old - 21:12:00 External Body height 2022-10-29 149.9 cm Melinda elenaold - 21:12:00 External Body weight 2022-10-29 63.504 kg Melinda elenaold - 21:12:00 External BMI 2022-10-29 28.28 kg/m2 Melinda ybold - 21:12:00 External Oxygen saturation 2022-10-29 99 /min Melinda ortiz - in Arterial blood 21:12:00 External by Pulse oximetry Systolic blood 2022-10-23 121 mm[Hg] [facility] pressure 15:32:00 Diastolic blood 2022-10-23 83 mm[Hg] [facility] pressure 15:32:00 Heart rate 2022-10-23 80 /min [facility] 15:32:00 Body height 2022-10-23 147.3 cm [facility] 15:32:00 Body weight 2022-10-23 72.122 kg [facility] 15:32:00 BMI 2022-10-23 33.23 kg/m2 [facility] 15:32:00 Oxygen saturation 2022-10-23 97 /min [facility] in Arterial blood 15:32:00 by Pulse oximetry Systolic blood 2022-10-02 127 mm[Hg] Melinda Seybol d - pressure 19:49:00 External Diastolic blood 2022-10-02 74 mm[Hg] Melinda Alvesybo ld - pressure 19:49:00 External Heart rate 2022-10-02 75 /min Melinda Alvesybold - 19:49:00 External Body temperature 2022-10-02 36.72 Nusrat Melinda Seyb old - 19:49:00 External Respiratory rate 2022-10-02 14 /min Melinda Seyb old - 19:49:00 External Body height 2022-10-02 149.9 cm Melinda Seybold - 19:49:00 External Body weight 2022-10-02 67.586 kg Melinda Seybold - 19:49:00 External BMI 2022-10-02 30.09 kg/m2 Melinda Alvesybold - 19:49:00 External Oxygen saturation 2022-10-02 97 /min Melinda Kelsie bold - in Arterial blood 19:49:00 External by Pulse oximetry Systolic blood 2022-08-08 154 mm[Hg] [facility] pressure 18:03:00 [facility] Diastolic blood 2022-08-08 94 mm[Hg] University o f pressure 18:03:00 [facility] Heart rate 2022-08-08 77 /min [facility] 17:52:00 [facility] Body temperature 2022-08-08 36.78 Nusrat University 17:52:00 [facility] Body height 2022-08-08 147.3 cm University 17:52:00 [facility] Body weight 2022-08-08 70.217 kg University of 17:52:00 [facility] BMI 2022-08-08 32.35 kg/m2 University of 17:52:00 [facility] Systolic blood 2022-07-24 121 mm[Hg] [facility] of pressure 19:34:00 [facility] Diastolic blood 2022-07-24 75 mm[Hg] University o f pressure 19:34:00 [facility] Heart rate 2022-07-24 80 /min University of 19:34:00 [facility] Body temperature 2022-07-24 37.06 Nusrat University of 19:34:00 [facility] Respiratory rate 2022-07-24 17 /min University of 19:34:00 [facility] Body height 2022-07-24 147.3 cm University of 19:34:00 [facility] Body weight 2022-07-24 71.033 kg University of :34:00 [facility] BMI 2022-07-24 32.73 kg/m2 University of 19:34:00 [facility] Oxygen saturation 2022-07-24 93 /min [facility] in Arterial blood 19:34:00 [facility] li by Pulse oximetry Branch Systolic blood 2022-07-20 113 mm[Hg] University of pressure 19:02:00 [facility] Diastolic blood 2022-07-20 80 mm[Hg] University o f pressure 19:02:00 [facility] Heart rate 2022-07-20 88 /min University of 19:02:00 [facility] Body temperature 2022-07-20 36.67 Nusrat University of 19:02:00 [facility] Respiratory rate 2022-07-20 18 /min University of 19:02:00 [facility] Body height 2022-07-20 147.3 cm University of 19:02:00 [facility] Body weight 2022-07-20 71.215 kg University of 19:02:00 [facility] BMI 2022-07-20 32.81 kg/m2 University of 19:02:00 [facility] Oxygen saturation 2022-07-20 97 /min University of in Arterial blood 19:02:00 [facility] by Pulse oximetry Branch Systolic blood 2022-07-18 113 mm[Hg] [facility] pressure 14:15:00 Diastolic blood 2022-07-18 77 mm[Hg] [facility] pressure 14:15:00 Heart rate 2022-07-18 77 /min [facility] 14:15:00 Body temperature 2022-07-18 36.44 Nusrat [facility] 14:15:00 Respiratory rate 2022-07-18 18 /min [facility] 14:15:00 Body height 2022-07-18 147.3 cm [facility] 14:15:00 Body weight 2022-07-18 71.668 kg [facility] 14:15:00 BMI 2022-07-18 33.02 kg/m2 [facility] 14:15:00 Oxygen saturation 2022-07-18 96 /min [facility] in Arterial blood 14:15:00 by Pulse oximetry Systolic blood 2022-06-15 125 mm[Hg] [facility] of pressure 16:34:00 [facility] Diastolic blood 2022-06-15 80 mm[Hg] University o f pressure 16:34:00 [facility] Heart rate 2022-06-15 78 /min University of 16:34:00 [facility] Respiratory rate 2022-06-15 18 /min University of 16:34:00 [facility] Body weight 2022-06-15 71.215 kg University of 16:34:00 [facility] BMI 2022-06-15 32.81 kg/m2 University of 16:34:00 [facility] Oxygen saturation 2022-06-15 96 /min University of in Arterial blood 16:34:00 [facility] li by Pulse oximetry Branch Systolic blood 2022-06-08 123 mm[Hg] University of pressure 19:55:00 [facility] Diastolic blood 2022-06-08 76 mm[Hg] University o f pressure 19:55:00 [facility] Heart rate 2022-06-08 80 /min University of 19:55:00 [facility] Body temperature 2022-06-08 36.83 Nusrat University of 19:55:00 [facility] Respiratory rate 2022-06-08 18 /min University of 19:55:00 [facility] Body height 2022-06-08 147.3 cm University of 19:55:00 [facility] Body weight 2022-06-08 73.483 kg University of 19:55:00 [facility] BMI 2022-06-08 33.86 kg/m2 University of 19:55:00 [facility] Oxygen saturation 2022-06-08 97 /min University of in Arterial blood 19:55:00 [facility] li by Pulse oximetry Branch BP Systolic 2018-02-03 108 mm[Hg] Location: LUE; [facility] 08:49:00 Position: Sitting BP Diastolic 2018-02-03 77 mm[Hg] Location: LUE; [facility] 08:49:00 Position: Sitting Height 2018-02-03 57 [in_us] [facility] 08:49:00 Weight 2018-02-03 160.2 [lb_av] [facility] 08:49:00 Body Mass Index 2018-02-03 34.67 kg/m2 [facility] 08:49:00 Heart Rate 2018-02-03 81 /min Location: L [facility] 08:49:00 Brachial Artery; BP Systolic 2017-12-30 102 mm[Hg] Location: LUE; [facility] 11:33:00 Position: Sitting BP Diastolic 2017-12-30 [...] Heart Rate 2017-07-29 88 /min Location: L [facility] 10:30:00 Brachial Artery; Respitory Rate 2017-01-05 [...] Heart [facility] 2017[facility]05 [facility] 06:[facility] Resp[facility] 2014[facility]-21 [facility] 03:18:00 Systolic (mm Hg) 2014-03-21 [facility] 03:18:00 Weight 2014-03-21 [facility] 03:18:00 Height 2014-03-21 149.86 cm [facility] 03:18:00 BMI Calculated 2014-03-21 [facility] 03:18:00 Temperature Oral 2014-03-21 97.8 F [facility] (F) 03:18:00 Heart Rate 2014-03-21 [facility] 03:18:00 Diastolic (mm Hg) 2014-03-21 [facility] 03:18:00 Systolic (mm Hg) 2014-03-19 [facility] 13:00:00 Respitory Rate 2014-03-19 [facility] 13:00:00 Diastolic (mm Hg) 2014-03-19 [facility] 13:00:00 Temperature Oral 2014-03-19 97.9 F Trevor Esposito rmann (F) 13:00:00 Heart Rate 2014-03-19 [facility] [...] rmann 04:44:00 Temperature Oral 2014-03-19 97.3 F Trevor Esposito rmann (F) 04:44:00 Respitory Rate 2014-03-19 [facility] [...] tee 17:57:00 Temperature Oral 2014-01-01 98.4 F Trevor Esposito rmann (F) 17:57:00 Diastolic (mm Hg) 2014-01-01 [...] 03:47:00 Temperature Oral 2014-01-01 98.4 F [facility] ([facility] 03:47:00 Height 2013-12-01 147.32 [...] ermann 17:01:00 Temperature Oral 2013-11-30 98.0 F [facility] He rmann (F) 17:01:00 Heart Rate 2013-11-30 [facility] 17:01:00 Systolic (mm Hg) 2013-11-30 [facility] 17:01:00 Respitory Rate 2013-11-30 [facility] 13:37:00 Diastolic (mm Hg) 2013-11-30 [facility] 13:37:00 Systolic (mm Hg) 2013-11-30 [facility] 13:37:00 Heart Rate 2013-11-30 [facility] 13:37:00 Temperature Oral 2013-11-30 97.3 F [facility] (F) 13:37:00 Weight 2013-11-26 [facility] 13:48:00 Height 2013-11-26 147.32 cm [facility] 13:48:00 BMI Calculated 2013-11-26 [facility] tee 13:48:00 Procedures Procedure Date / Time Performing Clinician Source Performed [facility] FINANCIAL 2022-12-13 18:04:36 Doctor Unassigned, [facility] POLICY [facility] MR BRAIN WO CONTRAST 2022-08-22 15:07:35 Mann Perdomo [facility] FLU VACC ([id number]), 6 2022-07-20 19:17:10 Lakeshia Mathis [facility] [place]-65 YRS, .5ML, IM, QUAD A Medica l Branch (FLUCELVAX) [place] GASTRIC EMPTYING 2022-07-11 18:06:04 Estella Anderson [facility] PHYSICIAN ORDERS 2022-07-03 05:01:00 Doctor Unassigned, [facility] Name Medical Branch EXTERNAL PROVIDER RECORDS 2022-06-25 05:01:00 Doctor Unassigned, [facility] [place] [facility] EXTERNAL PROVIDER RECORDS 2022-06-13 05:01:00 Doctor Unassigned, [facility] REFERRAL- 2022-06-06 05:01:00 Doctor Unalitoigned, [facility] REQUEST/RESPONSE [facility] INSURANCE CORRESPONDENCE 2022-05-23 05:01:00 Doctor Jessigned, [facility] Name Medical [place] [UTP] Toxin - Botox 2017-12-04 00:00:00 [facility] [[facility]] Toxin - Botox 2017-11-04 00:00:00 [facility] ciagrace section [facility] zafar Eye operation [facility] Plan of Care Planned Activity Planned Date Details Comments Source Diagnostic Test Pending 2017-12-23 00:00:00 [UTP] Toxin - Botox [facility] [code = [UTP] Toxin - Botox] Encounters Start End Encounter Admission Attending Care Care Encounter Source Date/Time Date/Time Type Type Clinicians Facility Department ID 2023-01-09 Outpatient [facility] [id number] [place] 10:23:57 [id number] [facility] 2022-10-23 Outpatient [facility] [id number] [place] 08:05:04 [id number] [facility] 2022-08-30 Outpatient [facility] [id number] [place] 17:07:50 [id number] [facility] 2022-07-18 Outpatient [facility] [id number] [place] 08:34:38 [id number] [facility] 2022-07-17 Outpatient [facility] [id number] [place] 10:37:10 [id number] [facility] 2022-06-05 Outpatient [facility] [id number] [place] 08:43:28 [id number] [facility] 2022-06-01 Outpatient [facility] [id number] [place] 15:05:40 [id number] [facility] 2021-07-24 Emergency [facility] [id number] Univers 00:42:51 ity [facility] 2021-07-22 Emergency [facility] [id number] Univers 02:08:24 [facility] 2021-07-20 Outpatient R WINSTON [facility] SAIDA [id number] Univers 19:33:03 Susana JEFFDAYTON [facility] 2021-07-20 Emergency [facility] [id number] Univers 11:49:02 [facility] 2023-02-25 2023-02-25 Outpatient PAUL ASHTON [id number] [place] 09:40:00 09:40:00 Seybol sunni 2023-02-14 2023-02-14 Outpatient MELINDA FERNANDEZ [id number] [place] 14:00:00 14:00:00 JACKIE Snyderol sunni 2023-01-23 2023-01-23 Outpatient RUBYPRAVINAlberto [facility] [id number] [place] 09:00:00 09:00:00 [facility] 2023-01-17 2023-01-17 Outpatient R SURI [facility] [id number] Univers 09:30:00 09:30:00 RJ [facility] 2023-01-15 2023-01-15 Outpatient R VANESSA MONTOYA [facility] U [facility] [id number] Univers 13:30:00 13:58:49 VANESSA MONTOYA [facility] 2023-01-15 2023-01-15 Office Rosie [facility] 1.2.840.114 [id number] Univers 13:30:00 13:58:49 [facility] 350.1.13.10 [facility] [place] [id number] Ma dical NAL 134 [facility] 2023-01-07 2023-01-07 Ancillary HaiCaitlin Alberto [facility] 1.2.84 0.114 [id number] Univers 13:45:00 14:34:35 Visit Rachele Bansal 350.1.13.10 ity [facility] [place] [id number] Ma dical NAL 178 [facility] 2023-01-02 2023-01-02 Telephone Morgan [facility] 1.2.840.114 [id number] Univers 00:00:00 00:00:00 Jovita ROBERTSON 350.1.13.10 i ty of [place] [id number] Ma dical NAL 044 [facility] 2022-12-31 2022-12-31 Outpatient LAB90 MELINDA LEARY [id number] [place] 10:30:00 10:30:00 Seybol sunni 2022-12-31 2022-12-31 Outpatient MELINDA FERNANDEZ [id number] [place] 09:30:00 09:30:00 JACKIE Snyderol sunni 2022-12-27 2022-12-27 Refill Leanne [facility] 1.2.840.114 [id number] Univers 00:00:00 00:00:00 Mann ROBERTSON 350.1.13.10 ity [facility] [place] [id number] Ma dical NAL 231 [facility] 2022-12-27 2022-12-27 Refill Del [facility] 1.2.840.114 [id number] [facility] 00:00:00 00:00:00 Lakeshia ROBERTSON 350.1.13.10 ity [facility] 4.[place] [id number] Ma dical NAL 231 [facility] 2022-12-20 2022-12-20 [facility] [id number] Univers 11:00:00 11:51:42 RACHELE ashraf [facility] 2022-12-20 2022-12-20 Ancillary Caitlin Valles [facility] 1.2.84 0.114 [id number] Univers 11:00:00 11:51:42 Visit Rachele Bansal MARCELO 350.1.13.10 ity [place] [facility] 4.[place] [id number] Ma dical [address] 2022-12-17 2022-12-17 Outpatient PAUL ASHTON MELINDA LEARY [id number] [place] 11:00:00 11:00:00 Seybol d 2022-12-17 2022-12-17 Outpatient PAUL ASHTON MELINDA LEARY [id number] [place] 10:20:00 10:20:00 Seybol d 2022-12-13 2022-12-13 Outpatient D[facility] [id number] Univers 13:00:00 14:00:02 RACHELE anh [facility] 2022-12-13 2022-12-13 Ancillary Caitlin Valles [facility] 1.2.84 0.114 [id number] Univers 13:00:00 14:00:02 Visit Rachele Bansal Georgie ROBERTSON 350.1.13.10 ity of [place] [id number] Ma dic[address] 2022-12-13 2022-12-13 Orders Doctor NANCY 1.2.840.114 [id number] Univers 00:00:00 00:00:00 Only Unassigned, MELANIE 350.1.13.[address] [facility] 4.2.7.2.686 Matt as [id number] [address] 2022-12-13 2022-12-13 Refill Del [facility] 1.2.840.114 [id number] Univers 00:00:00 00:00:00 Lakeshia ROBERTSON 350.1.13.10 ity of [facility] 4.[place] [id number] Ma dical NAL 231 [facility] 2022-12-11 2022-12-11 Outpatient R SURI [facility] [id number] Univers 11:00:00 11:00:00 RJ anh [facility] 2022-12-05 2022-12-05 Outpatient ELIJAHMELINDA [id number] [place] 14:00:00 14:00:00 KAMILLA Seybol d 2022-12-05 2022-12-05 Outpatient PAUL ASHTON [id number] [place] 00:00:00 00:00:00 Seybol d 2022-11-26 2022-11-26 Outpatient PAUL ASHTON 118 [id number] [place] 09:50:00 09:50:00 Seybol d 2022-11-26 2022-11-26 Outpatient MELINDA LEARY [id number] [place] 09:00:00 09:00:00 Seybol d 2022-11-26 2022-11-26 Outpatient DHRUVPAUL SANDOVAL 118 [id number] [place] 00:00:00 00:00:00 Seybol d 2022-11-15 2022-11-15 Outpatient JEYMELINDA [id number] [place] 09:30:00 09:30:00 DANY Seybol d 2022-11-15 2022-11-15 Outpatient MELINDA FERNANDEZ [id number] [place] 00:00:00 00:00:00 JACKIE Seybol d 2022-11-12 2022-11-12 Ancillary Caitlin Valles [facility] 1.2.84 0.114 [id number] Univers 13:45:00 14:30:00 Visit Rachele Bansal 350.1.13.10 [facility] 4.2.7.2.686 Anibal BUNCH [id number] Ma dical NAL 178 [facility] 2022-11-09 2022-11-09 Outpatient R MORGAN [facility] [id number] Univers 13:00:00 13:00:00 JOVITA [facility] 2022-11-06 2022-11-06 Ancillary Caitlin Tucker [facility] 1.2.840 .114 [id number] Univers 13:00:00 13:36:46 Visit Rachele Bansal 350.1.13.10 ity of [facility] 4.[place] [id number] Ma dical NAL 179 [facility] 2022-11-06 2022-11-06 Outpatient R SURI [facility] [id number] Univers 10:00:00 10:50:22 RJ ity [facility] 2022-11-06 2022-11-06 Office Suri [facility] 1.2.075.784 [id number] Univers 10:00:00 10:50:22 Visit Rj ROBERTSON 350.1.13.10 i ty of [facility] 4.2.[place] [id number] Ma dical NAL 134 [facility] 2022-11-05 2022-11-05 Nicholas Valles [facility] 1.2.840.114 [id number] Univers 00:00:00 00:00:00 Management Caitlin ROBERTSON 350.1.13.10 ity of [facility] [place] [id number] Ma dical NAL 178 [facility] 2022-11-01 2022-11-01 Outpatient R ROLF [facility] [id number] Univers 13:45:00 14:26:45 RACHELE ashraf [facility] 2022-11-01 2022-11-01 Ancillary Molina Tucker [facility] 1.2.840. 114 [id number] Univers 13:45:00 14:26:45 Visit Rachele Bansal 350.1.13.10 ity of [facility] 4.[place] [id number] Ma dical NAL 179 [facility] 2022-11-01 2022-11-01 Outpatient R ROLF [facility] [id number] Univers 13:00:00 13:55:47 RACHELE ashraf [facility] 2022-11-01 2022-11-01 Ancillary Caitlin Valles [facility] 1.2.84 0.114 [id number] Univers 13:00:00 13:55:47 Visit Rachele Bansal 350.1.13.10 ity of [place] 4.[place] [id number] Ma dical NAL 178 [facility] 2022-10-29 2022-10-29 Outpatient KIMBERLYMELINDA PERES MELINDA [id number] [place] 15:15:00 15:15:00 JACKIE moeller 2022-10-23 2022-10-23 Office LUCIAN Murillo 6410 1.2.840.114 [id number] [place] 09:00:00 10:20:53 Visit Robson QUINTANILLA 350.1.13.58 Health 9.2.7.2.686 [id number] 2022-10-23 2022-10-23 Telephone Leanne KYELLA 1.2.840.114 [id number] Univers 00:00:00 00:00:00 Ogofeliau [place] 350.1.13.10 ity of [place] [id number] Ma dical NAL 044 [facility] 2022-10-22 2022-10-22 Outpatient R ROLF [facility] [id number] Univers 13:00:00 14:11:33 RACHELE ity of [facility] 2022-10-22 2022-10-22 Ancillary Caitlin Valles [facility] 1.2.84 0.114 [id number] Univers 13:00:00 14:11:33 Visit Rachele Bansal 350.1.13.10 ity of [place] [id number] Ma dical NAL 178 [facility] 2022-10-16 2022-10-16 Refill Leanne KYELLA 1.2.840.114 [id number] Univers 00:00:00 00:00:00 Ogechukwu [place] 350.1.13.10 ity of [place] [id number] Ma dical NAL 044 [facility] 2022-10-15 2022-10-15 Ancillary Hai Caitlin Dominguez [facility] 1.2.84 0.114 [id number] Univers 13:00:00 13:45:00 Visit Rachele Bansal 350.1.13.10 ity of [place] [id number] Ma dical NAL 178 [facility] 2022-10-03 2022-10-03 Ancillary Hai Caitlin Dominguez [facility] 1.2.84 0.114 [id number] Univers 08:00:00 08:46:55 Visit Rachele Bansal 350.1.13.10 ity of [place] [id number] Ma dical NAL 178 [facility] 2022-10-02 2022-10-02 Outpatient MELINDA FERNANDEZ [id number] [place] 13:30:00 13:30:00 JACKIE moeller 2022-10-02 2022-10-02 Ancillary Jennifer Shah [facility] 1.2.840. 114 [id number] Univers 08:15:00 08:58:26 Visit Rachele Bansal 350.1.13.10 ity of [place] [id number] Ma dical NAL 179 [facility] 2022-09-27 2022-09-27 Outpatient R ROLF [facility] [id number] Univers 08:45:00 09:52:22 RACHELE ity of [facility] 2022-09-27 2022-09-27 Ancillary HaiRosarioCaitlin A [facility] 1.2.84 0.114 [id number] Univers 08:45:00 09:52:22 Visit Rachele Bansal 350.1.13.10 ity of [place] [id number] Ma dical NAL 178 [facility] 2022-09-27 2022-09-27 Ancillary Caitlin Tucker [facility] 1.2.840 .114 [id number] Univers 08:00:00 09:01:55 Visit Rachele Bansal 350.1.13.10 ity of [facility] 4.2.7.2.[place] [id number] Ma dical NAL 179 [facility] 2022-09-25 2022-09-25 Outpatient KIMBERLYMELINDA PERES MELINDA [id number] [place] 13:45:00 13:45:00 JACKIEPRIYA Snyderandrea moeller 2022-09-19 2022-09-19 [address] [facility] [id number] Univers 11:00:00 11:30:21 RACHELE ity [facility] 2022-09-19 2022-09-19 Ancillary GarrettCaitlin Vilma [facility] 1.2.840 .114 [id number] [facility] 11:00:00 11:30:21 Visit Rachele Bansal 350.1.13.10 ity of [facility] 4.2.7.2.[place] [id number] Ma dical NAL 179 [facility] 2022-09-19 2022-09-19 Ancillary Caitlin Valles [facility] 1.2.84 0.114 [id number] [facility] 10:15:00 11:04:55 Visit Rachele Bansal 350.1.13.10 ity of [facility] 4.2.[place].2.[place] [id number] Ma dical NAL 178 [facility] 2022-09-10 2022-09-10 Outpatient R [facility] [id number] Univers 09:00:00 09:00:00 ity of [facility] 2022-09-10 2022-09-10 Hasher Operator 2, Adc Lab [facility] 1.2.840.114 [id number] Univers 08:45:00 09:00:00 Visit Jovita Mora 350.1.13.10 ity of [facility] 4.2.[place].2.[place] [id number] Ma dical NAL 353 [facility] 2022-09-10 2022-09-10 Outpatient R MORGAN [facility] [id number] Univers 08:45:00 08:45:00 JOVITA ashraf [facility] 2022-09-05 2022-09-05 Outpatient R [facility] [id number] Univers 08:20:00 08:20:00 ity of [facility] 2022-09-04 2022-09-04 Outpatient R ROLF [facility] [id number] Univers 10:15:00 10:49:20 RACHELE ity of [facility] 2022-09-04 2022-09-04 Ancillary Caitlin Valles [facility] 1.2.84 0.114 [id number] Univers 10:15:00 10:49:20 Visit Rachele Bansal 350.1.13.10 ity of [place] [id number] Ma dical NAL 178 [facility] 2022-09-04 2022-09-04 Ancillary Jennifer Shah [facility] 1.2.840. 114 [id number] Univers 09:15:00 10:00:00 Visit Rachele Bansal [place] 350.1.13.10 ity of [place] 4[place] [id number] Ma dical NAL 179 [facility] 2022-08-30 2022-08-30 Ancillary Caitlin Tucker Vilma [facility] 1.2.840 .114 [id number] Univers 10:15:00 11:00:00 Visit Rachele Bansal [place] 350.1.13.10 ity of [place] [id number] Ma dical NAL 179 [facility] 2022-08-30 2022-08-30 Ancillary HaiRosarioCaitlin A [facility] 1.2.84 0.114 [id number] Univers 09:30:00 10:25:45 Visit Rachele Bansal 350.1.13.10 ity of [place] 4.[place].2.[place] [id number] Ma dical NAL 178 [facility] 2022-08-30 2022-08-30 Telephone Leanne [facility] 1.2.840.114 [id number] Univers 00:00:00 00:00:00 Mann [place] 350.1.13.10 ity of [place] [id number] Ma dical NAL 044 [facility] 2022-08-28 2022-08-28 Ancillary Caitlin Valles [facility] 1.2.84 0.114 [id number] [facility] 15:15:00 16:03:50 Visit Rachele Bansal 350.1.13.10 ity of [facility] 4.2.7.2.[place] [id number] Ma dical NAL 178 [facility] 2022-08-27 2022-08-27 Ancillary Jennifer Shah [facility] 1.2.840. 114 [id number] [facility] 13:00:00 13:46:59 Visit Rachele Bansal 350.1.13.10 ity of [facility] 4.2.7.2.[place] [id number] Ma dical NAL 179 [facility] 2022-08-23 2022-08-23 Telephone LeanneRUST 1.2.840.114 [id number] [facility] 00:00:00 00:00:00 Mann ROBERTSON 350.1.13.10 ity of [place] [id number] Ma dical NAL 044 [facility] 2022-08-23 2022-08-23 Telephone Stewart [facility] 1.2.031.850 [id number] Univers 00:00:00 00:00:00 Danny ROBERTSON 350.1.13.10 ity of [place] [id number] Ma dical NAL 059 [facility] 2022-08-22 2022-08-22 Outpatient R MANN PERDOMO [facility] [id number] Univers 07:54:51 23:59:00 MANN PERDOMO ity of [facility] 2022-08-22 2022-08-22 [facility] Leanne [facility] 1.2.391.652 [id number] Univers 07:54:51 23:59:00 Encounter Mann ROBERTSON 350.1.13.10 ity of [facility] 4.2.7.2.[place] [id number] [facility] li [address] [place] 2022-08-21 2022-08-21 Outpatient R ROLF [facility] [id number] Univers 15:00:00 16:15:45 RACHELE ashraf [facility] 2022-08-21 2022-08-21 Ancillary Caitlin Valles Alberto [facility] 1.2.84 0.114 [id number] Univers 15:00:00 16:15:45 Visit Rachele Bansal 350.1.13.10 ity of [facility] 4.2.7.2.[place] [id number] Ma dical NAL 178 [facility] 2022-08-21 2022-08-21 Outpatient R ROLF [facility] [id number] Univers 14:00:00 14:53:11 RACHELE ashraf [facility] 2022-08-21 2022-08-21 Ancillary Jennifer Shah [facility] 1.2.840. 114 [id number] Univers 14:00:00 14:53:11 Visit Rachele Bansal [place] 350.1.13.10 ity of [place] [id number] Ma dical NAL 179 [facility] 2022-08-10 2022-08-10 Outpatient R STEWART [facility] [id number] Univers 14:41:51 23:59:00 DANNY estebany o f [facility] 2022-08-08 2022-08-08 Outpatient R MANN PERDOMO [facility] [id number] Univers 11:30:00 12:27:59 MANN PERDOMOanh [facility] 2022-08-08 2022-08-08 Office Leanne [facility] 1.2.840.114 [id number] Univers 11:30:00 12:27:59 Visit Mann ROBERTSON 350.1.13.10 ity of [facility] 4.2.7.2.[place] [id number] Ma dical NAL 044 [facility] 2022-07-30 2022-07-30 Outpatient R ROLF, [facility] [id number] Univers 13:00:00 13:00:00 RACHELE itanh [facility] 2022-07-24 2022-07-24 Outpatient R STEWART, [facility] [id number] Univers 15:00:00 15:57:01 DANNY ashraf o f [facility] 2022-07-24 2022-07-24 Office StewartRUST 1.2.840.114 [id number] Univers 15:00:00 15:57:01 Visit Danny ROBERTSON 350.1.13.10 ity of [place] [id number] Ma dicarpita FERRARI 059 [facility] 2022-07-20 2022-07-20 Outpatient R MANN PERDOMO [facility] [id number] Univers 14:00:00 14:48:31 MANN PERDOMO [facility] 2022-07-20 2022-07-20 Office LeanneRUST 1.2.840.114 [id number] [facility] 14:00:00 14:48:31 Visit Mann ROBERTSON 350.1.13.10 ity of [place] [id number] Ma dical NAL 044 [facility] 2022-07-18 2022-07-18 Office LUCIAN Murillo 6410 1.2.840.114 [id number] [place] 09:00:00 10:12:46 Visit Yumikoprincess TRAVIS 350.1.13.58 Health 9.2.7.2.686 [id number] 2022-07-18 2022-07-18 Telephone DelRUST 1.2.840.114 [id number] [facility] 00:00:00 00:00:00 Lakeshia ROBERTSON 350.1.13.10 ity of [place] [id number] Ma dical [facility] 231 [facility] 2022-07-13 2022-07-13 [facility] 1.2.840.114 [id number] Univers 00:00:00 00:00:00 Lakeshia ROBERTSON 350.1.13.10 ity of [place] [id number] [facility] 231 [facility] 2022-07-11 2022-07-11 Outpatient R [facility] [id number] Univers 08:12:35 23:59:00 ESTELLA ity of [facility] 2022-07-11 2022-07-11 [facility] 1.2.840.114 [id number] Univers 08:12:35 23:59:00 Encounter Estella ROBERTSON 350.1.13.10 ity of [place] [id number] [facility] [address] 2022-07-03 2022-07-03 Orders Doctor NANCY 1.2.840.114 [id number] Univers 00:00:00 00:00:00 Only Unassigned, MELANIE 350.1.13.10 ity of [place] [facility] 4.2.7.2.686 Matt as [id number] [facility] [address] 2022-06-28 2022-06-28 [facility]phone [facility] 1.2.840.114 [id number] Univers 00:00:00 00:00:00 Lakeshia ROBERTSON 350.1.13.10 ity of [place] [id number] [facility] 231 [facility] 2022-06-27 2022-06-27 [facility]phone [facility] 1.2.840.114 [id number] Univers 00:00:00 00:00:00 Lakeshia ROBERTSON 350.1.13.10 ity of [place] [id number] [facility] 044 [facility] 2022-06-25 2022-06-25 Telephone Mathis, [facility] 1.2.840.114 [id number] Univers 00:00:00 00:00:00 Lakeshia ROBERTSON 350.1.13.10 ity of [facility] 4.2.7.2.[place] [phone] [facility] [address] [facility] 2022-06-25 2022-06-25 Orders Doctor NANCY 1.2.840.114 [id number] Univers 00:00:00 00:00:00 Only Unassigned, MELANIE 350.1.13.10 [facility] 4.2.7.2.686 Matt as [id number] [address] 2022-06-15 2022-06-15 Outpatient R MANN PERDOMO [facility] [id number] [facility] 11:00:00 12:27:45 MANN PERDOMO ity of [facility] 2022-06-15 2022-06-15 Office Leanne [facility] 1.2.840.114 [id number] [facility] 11:00:00 12:27:45 Visit Mann ROBERTSON 350.1.13.10 [place] [id number] [facility] 044 [facility] 2022-06-15 2022-06-15 [facility] 1.2.840.114 [id number] [facility] 00:00:00 00:00:00 Lakeshia ROBERTSON 350.1.13.10 [place] [id number] [facility] 231 [facility] 2022-06-14 2022-06-14 [facility] 1.2.840.114 [id number] [facility] 00:00:00 00:00:00 Lakeshia ROBERTSON 350.1.13.10 [facility] [place] [id number] [address] 2022-06-14 2022-06-14 [facility] 1.2.840.114 [id number] Univers 00:00:00 00:00:00 Lakeshia ROBERTSON 350.1.13.10 ity [place] [id number] [facility] 231 [facility] 2022-06-13 2022-06-13 Orders Doctor NANCY 1.2.840.114 [id number] Univers 00:00:00 00:00:00 Only Unassigned, MELANIE 350.1.13.10 ity of [place] [facility] 4.2.7.2.686 Matt as [id number] [address] 2022-06-11 2022-06-11 Telephone Leanne [facility] 1.2.840.114 [id number] [facility] 00:00:00 00:00:00 Mann ROBERTSON 350.1.13.10 [facility] [place] [id number] [facility] 044 [facility] 2022-06-08 2022-06-08 Outpatient R MANN PERDOMO [facility] [id number] Univers 15:00:00 15:28:32 MANN PERDOMO ity of [facility] 2022-06-08 2022-06-08 Office Leanne [facility] 1.2.840.114 [id number] [facility] 15:00:00 15:28:32 Visit Mann ROBERTSON 350.1.13.10 [place] [id number] [facility] [address] [facility] [facility] 2022-06-06 2022-06-06 Orders Doctor NANCY 1.2.840.114 [id number] Univers 00:00:00 00:00:00 Only Unassigned, MELANIE 350.1.13.10 ity of [facility] 4.2.7.2.686 Matt as [id number] [address] 2022-06-05 2022-06-05 Outpatient NATALIA [facility] [id number] [place] 13:00:00 13:00:00 [facility] 2022-05-31 2022-05-31 Telephone [facility] 1.2.840.114 [id number] Univers 00:00:00 00:00:00 Lakeshia ROBERTSON 350.1.13.10 ity of [place] [id number] Ma dic[address] 2022-05-29 2022-05-29 Outpatient R MANN PERDOMO [facility] [id number] Univers 07:46:51 23:59:00 LEANNEMANN ity of [facility] 2022-05-29 2022-05-29 [facility] 1.2.481.416 [id number] Univers 07:46:51 23:59:00 [facility] Mann ROBERTSON 350.1.13.10 ity of [place] 4.2.7.2.[place] [id number] [facility] [address] 2022-05-29 2022-05-29 Outpatient R MANN PERDOMO [facility] [id number] Univers 00:00:00 00:00:00 MANN PERDOMO ity [facility] 2022-05-25 2022-05-25 Telephone [facility] 1.2.840.114 [id number] Univers 00:00:00 00:00:00 Lakeshia ROBERTSON 350.1.13.10 it[place] of [place] [id number] [address] 2022-05-23 2022-05-23 Orders Doctor NANCY 1.2.840.114 [id number] Univers 00:00:00 00:00:00 Only Unassigned, MELANIE 350.1.13.10 [facility] 4.2.7.2.686 Matt as [id number] [facility] [address] 2022-05-22 2022-05-22 Outpatient R MANN PERDOMO [facility] [id number] Univers 11:00:00 11:54:20 MANN PERDOMO ity [facility] 2022-05-22 2022-05-22 Office LeanneRUST 1.2.840.114 [id number] Univers 11:00:00 11:54:20 Visit Mann MARCELO 350.1.13.10 ity of [facility] 4.2.[place] [id number] [facility] 044 [facility] 2022-05-21 2022-05-21 Telephone [facility] 1.2.840.114 [id number] Univers 00:00:00 00:00:00 Lakeshia Dominguez MARCELO 350.1.13.10 ity of [place] [id number] [facility] 231 [facility] 2022-05-18 2022-05-18 Out[facility] [id number] Univers 16:20:00 17:41:58 [facility] 2022-05-18 2022-05-18 [facility] 1.2.840.114 [id number] Univers 16:20:00 17:41:58 Visit Lakeshia ROBERTSON 350.1.13.10 ity of [place] [id number] [facility] 231 [facility] 2022-05-18 2022-05-18 Outpatient [facility] [id number] Univers 16:20:00 17:41:58 LAKESHIA ity [facility] 2022-05-13 2022-05-13 Emergency X Vilma MITCHELL [facility] ERT [id number] Univers 00:20:00 03:20:00 ity of [facility] 2022-05-13 2022-05-13 Emergency Vilma Mitchell [facility] 1.2.840.114 [id number] Univers 00:20:00 03:20:00 Berna ROBERTSON 350.1.13.10 i ty of [facility] 4.2.7.2.[place] [id number] [address] 2022-04-25 2022-04-25 Refill DelRUST 1.2.840.114 [id number] Univers 00:00:00 00:00:00 Lakeshia Dominguez [place] 350.1.13.10 ity of [facility] 4.2.7.2.[place] [id number] [address] 2022-04-24 2022-04-24 Office MathisRUST 1.2.840.114 [id number] Univers 16:20:00 17:34:17 Visit Lakeshia Dominguez [place] 350.1.13.10 ity of [facility] 4.2.7.2.[place] [id number] [address] 2022-04-24 2022-04-24 Outpatient R MATHIS [facility] [id number] Univers 16:20:00 17:34:17 LAKESHIA [facility] 2022-04-24 2022-04-24 Outpatient R MATHIS [facility] [id number] Univers 16:20:00 16:20:00 LAKESHIA [facility] 2022-04-24 2022-04-24 Outpatient R MATHIS [facility] [id number] Univers 16:20:00 16:20:00 LAKESHIA [facility] 2022-04-12 2022-04-12 Outpatient [facility] [id number] Univers 15:00:00 16:35:[facility] 2022-04-12 2022-04-12 Outpatient R MATHIS [facility] [id number] Univers 15:00:00 16:35:17 [facility] 2022-04-12 2022-04-12 Office Mathis, [facility] 1.2.840.114 [id number] Univers 15:00:00 16:35:17 Visit Lakeshia ROBERTSON 350.1.13.10 ity of [facility] 4.2.7.2.[place] [id number] [address] 2022-04-05 2022-04-05 Telephone José Luis [facility] 1.2.469.151 [id number] Univers 00:00:00 00:00:00 Bud SPECIALTY 350.1.13.10 ity of [facility] 4.2.7.2.[place] C[place] AT [id number] Ma mehnaz CUELLAR 253 [facility] 2022-04-04 2022-04-04 Outpatient R JOSÉ LUIS [facility] [id number] Univers 11:00:00 11:00:00 [facility] 2022-04-03 2022-04-03 Hasher Operator 2, Adc Lab [facility] 1.2.840.114 [id number] Univers 11:15:00 11:30:00 Visit Lakeshia Mathis 350.1. 13.10 ity [facility] 4.2.7.2.[place] [id number] Ma mehnaz [facility] 353 [facility] 2022-04-03 2022-04-03 Outpatient Dg MATHIS [facility] [id number] Univers 11:15:00 11:15:00 [facility] 2022-04-02 2022-04-02 Office Del [facility] 1.2.840.114 [id number] Univers 10:40:00 12:32:50 Visit Lakeshia ROBERTSON 350.1.13.10 ity [facility] 4[place]2.7.2.[place] [id number] Ma mehnaz FERRARI [address] [place] [address] 2022-04-02 2022-04-02 Outpatient Dg MATHIS [facility] [id number] Univers 10:40:00 12:32:50 LAKESHIA ashraf [facility] 2022-04-02 2022-04-02 Outpatient Dg MATHIS [facility] [id number] Univers 10:40:00 10:40:00 LAKESHIA ashraf [facility] 2022-04-02 2022-04-02 Outpatient Dg MATHIS [facility] [id number] Univers 10:40:00 10:40:00 [facility] 2022-04-02 2022-04-02 Orders Doctor NANCY 1.2.840.114 [id number] Univers 00:00:00 00:00:00 Only Unassigned, MELANIE 350.1.13.10 ity of [facility] 4.2.7.2.686 Matt as [id number] [address] 2022-03-20 2022-03-20 Orders Doctor NANCY 1.2.840.114 [id number] Univers 00:00:00 00:00:00 Only Unassigned, MELANIE 350.1.13.10 ity of [facility] 4.2.7.2.686 Matt as [id number] [address] 2022-03-07 2022-03-07 Telephone Del[facility] 1.2.840.114 [id number] Univers 00:00:00 00:00:00 Lakeshia ROBERTSON 350.1.13.10 ity of [place] 4[place] [id number] [address] 2022-02-16 2022-02-16 Outpatient Dg [facility] [id number] Univers 08:00:00 09:05:55 LAKESHIA ashraf [facility] 2022-02-16 2022-02-16 Office DelRUST 1.2.840.114 [id number] Univers 08:00:00 09:05:55 Visit Lakeshia ROBERTSON 350.1.13.10 ity [facility] 4[place]2.7.2.[place] [id number] [address] 2022-02-16 2022-02-16 Outpatient Dg MATHIS [facility] [id number] Univers 08:00:00 09:05:55 LAKESHIA ashraf [facility] 2022-02-16 2022-02-16 Outpatient Dg [facility] [id number] Univers 08:00:00 08:00:00 LAKESHIA ashraf [facility] 2022-01-15 2022-01-15 Outpatient R [facility] [id number] Univers 10:20:00 10:20:00 LAKESHIA ashraf [facility] 2022-01-10 2022-01-10 Refill DelR[facility] 1.2.840.114 [id number] Univers 00:00:00 00:00:00 Lakeshia ROBERTSON 350.1.13.10 ity of [place] 4[place].2.[place] [id number] [address] 2022-01-05 2022-01-05 Outpatient R [facility] [id number] Univers 11:20:00 13:14:07 LAKESHIA ashraf [facility] 2022-01-05 2022-01-05 Office [facility] 1..840.114 [id number] Univers 11:20:00 13:14:07 Visit Lakeshia ROBERTSON 350.1.13.10 ity [facility] 4[place]2.[place].2.[place] [id number] [address] 2021-11-29 2021-11-29 Outpatient R [facility] [id number] Univers 10:24:14 23:59:00 RJ ashraf [facility] 2021-11-29 2021-11-29 [facility] 1.2.840.114 [id number] Univers 10:20:00 23:59:00 Encounter Rj ROBERTSON 350.1.13.10 ity of [place].2.7.2.[place] [id number] [address] 2021-11-27 2021-11-27 Telephone DelR[facility] 1.2.840.114 [id number] Univers 00:00:00 00:00:00 Lakeshia ROBERTSON 350.1.13.10 ity of [place] 4[place] [id number] [address] 2021-11-24 2021-11-24 Refill DelRUST 1.2.840.114 [id number] Univers 00:00:00 00:00:00 Lakeshia ROBERTSON 350.1.13.10 ity of [place] [id number] [facility] 231 [facility] 2021-11-23 2021-11-23 Outpatient R [facility] [id number] Univers 08:30:00 08:30:00 SHERRIE y [facility] 2021-11-21 2021-11-21 Out[facility] [id number] Univers 14:15:00 14:15:00 RACHELE [facility] 2021-11-10 2021-11-10 Orders Doctor CRUZ 1.2.840.114 [id number] Univers 00:00:00 00:00:00 Only Unassigned, MELANIE 350.1.13.10 ity of [place] [facility] 4.2.7.2.686 Matt as [id number] [address] 2021-11-08 2021-11-08 Telephone [facility] 1.2.840.114 [id number] [facility] 00:00:00 00:00:00 Lakeshia ROBERTSON 350.1.13.10 ity of [place] 4[place] [id number] [facility] 231 [facility] 2021-11-07 2021-11-07 Office LeanneRUST 1.2.840.114 [id number] Univers 11:30:00 12:16:38 Visit Mann ROBERTSON 350.1.13.10 ity of [place] 4[place].2.[place] [id number] [facility] 044 [facility] 2021-11-07 2021-11-07 Outpatient R MANN PERDOMO [facility] [id number] Univers 11:30:00 12:16:38 MANN PERDOMO [facility] 2021-11-07 2021-11-07 Outpatient R MANN PERDOMO [facility] [id number] Univers 11:30:00 11:30:00 [facility] 2021-11-07 2021-11-07 Outpatient R ROLF [facility] [id number] Univers 10:15:00 11:09:12 RACHELE ashraf [facility] 2021-11-07 2021-11-07 Ancillary Jimy Cardona [facility] 1.2. 840.114 [id number] Univers 10:15:00 11:09:12 Visit Rachele Bansal MARCELO 350.1.13.10 ity of [place].2.[place] [id number] [facility] 178 [facility] 2021-11-06 2021-11-06 Outpatient R MANN PERDOMO [facility] [id number] [facility] 08:00:00 08:00:00 MANN PERDOMO [facility] 2021-11-02 2021-11-02 Ancillary Jimy Cardona [facility] 1.2. 840.114 [id number] Univers 13:45:00 14:45:15 Visit Bansal Rachele ROBERTSON 350.1.13.10 ity of [place] 4[place].2.[place] [id number] [address] 2021-11-02 2021-11-02 Outpatient R SURI [facility] [id number] Univers 10:30:00 11:04:20 RJ ashraf [facility] 2021-11-02 2021-11-02 Office Suri [facility] 1.2.517.726 [id number] Univers 10:30:00 11:04:20 Visit Rj ROBERTSON 350.1.13.10 i ty of [facility] 4.2.7.2.[place] [id number] [facility] 134 [facility] 2021-10-26 2021-10-26 Outpatient R ROLF [facility] [id number] Univers 10:15:00 11:38:31 RACHELEMICHELLE ashraf [facility] 2021-10-262021-10-26 Ancillary Jimy Cardona [facility] 1.2. 840.114 [id number] Univers 10:15:00 11:38:31 Visit Beatriz Bansalig Georgie ROBERTSON 350.1.13.10 ity of [place] [id number] Ma dical NAL 178 [facility] 2021-10-19 2021-10-19 Outpatient R ROLF [facility] [id number] Univers 10:45:00 11:59:51 RACHELE ashraf [facility] 2021-10-19 2021-10-19 Ancillary Jimy Cardona [facility] 1.2. 840.114 [id number] Univers 10:45:00 11:59:51 Visit Bansal Rachele L MARCELO 350.1.13.10 ity of [place] 4[place].2.[place] [id number] Ma dical NAL 178 [facility] 2021-10-19 2021-10-19 Outpatient R ROLF [facility] [id number] Univers 10:45:00 10:45:00 RACHELE [facility] 2021-10-16 2021-10-16 Outpatient R DEL [facility] [id number] Univers 13:15:00 13:15:00 LAKESHIA andriy [facility] 2021-10-16 2021-10-16 Hasher Operator 2, Adc Lab [facility] 1.2.840.114 [id number] Univers 13:15:00 13:15:00 Visit Lakeshia Mathis 350.1. 13.10 [place]y [place] [id number] Ma dical NAL 353 [facility] 2021-10-16 2021-10-16 Office Del [facility] 1.2.840.114 [id number] Univers 10:00:00 12:56:51 Visit Lakeshia ROBERTSON 350.1.13.10 ity of [place] 4.2.[place].2.[place] [id number] Ma dical NAL 231 [facility] 2021-10-16 2021-10-16 Outpatient R DEL [facility] [id number] Univers 10:00:00 12:56:51 LAKESHIA ashraf [facility] 2021-10-16 2021-10-16 Outpatient R DEL [facility] [id number] Univers 10:00:00 10:00:00 LAKESHIATOMAS ashraf [facility] 2021-10-10 2021-10-10 Ancillary Jimy Cardona [facility] 1.2. 840.114 [id number] Univers 15:45:00 16:49:22 Visit Rachele Bansal 350.1.13.10 ity [facility] 4[place]2.7.2.[place] [id number] [facility] 178 [facility] 2021-10-10 2021-10-10 Outpatient R [facility] [id number] Univers 14:40:00 14:40:00 RACHELEMICHELLE ashraf [facility] 2021-10-05 2021-10-05 Ancillary Jimy Cardona [facility] 1.2. 840.114 [id number] Univers 13:00:00 13:45:00 Visit Rachele Bansal 350.1.13.10 ity [facility] 4[place]7.2.[place] [id number] [address] 2021-10-05 2021-10-05 Outpatient R ROLF [facility] [id number] Univers 13:00:00 13:00:00 RACHELEMICHELLE ashraf [facility] 2021-10-05 2021-10-05 Outpatient R BANSAL, [facility] [id number] Univers 13:00:00 13:00:00 RACHELEMICHELLE ashraf [facility] 2021-09-29 2021-09-29 Office Julio [facility] 1.2.840.114 [id number] Univers 09:30:00 09:45:00 Visit Clara VILLALTA 350.1.13.10 ity [facility] [place].2.[place].2.[place] [id number] [facility] 2021-09-29 2021-09-29 Outpatient R JULIO [facility] [id number] Univers 09:30:00 09:30:00 CLARA ashraf [facility] 2021-09-29 2021-09-29 Outpatient R JULIO [facility] [id number] Univers 09:30:00 09:30:00 CLARA ashraf [facility] 2021-09-28 2021-09-28 Ancillary Jimy Cardona [facility] 1.2. 840.114 [id number] Univers 10:15:00 11:00:00 Visit Rachele Bansal 350.1.13.10 ity of [place] [id number] Ma dicarpita NAL [address] [place] [address] 2021-09-28 2021-09-28 Outpatient R [facility] [id number] Univers 10:15:00 10:15:00 ity [facility] 2021-09-28 2021-09-28 Out[facility] [id number] Univers 10:15:00 10:15:00 RACHELEMICHELLE ashraf [facility] 2021-09-27 2021-09-27 Outpatient R [facility] [id number] Univers 13:45:00 14:58:35 [facility] 2021-09-27 2021-09-27 Office José Luis [facility] 1.2.840.114 [id number] Univers 13:45:00 14:58:35 Visit Bud SPECIALTY 350.1.13.10 it[place] AT [id number] Ma mehnaz CUELLAR 253 [facility] 2021-09-21 2021-09-21 Ancillary Jimy Cardona [facility] 1.2. 840.114 [id number] Univers 10:45:00 11:30:00 Visit Rachele Bansal 350.1.13.10 ity of [place] 4.[place].2.[place] [id number] Ma dical NAL 178 [facility] 2021-09-21 2021-09-21 Outpatient R ROLF [facility] [id number] Univers 10:00:00 11:14:34 RACHELE ashraf [facility] 2021-09-21 2021-09-21 Ancillary Caitlin Tucker [facility] 1.2.840 .114 [id number] Univers 10:00:00 11:14:34 Visit Beatriz Bansalmichelle [place] 350.1.13.10 ity of [facility] 4.2.7.2.[place] [id number] Ma dical NAL 179 [facility] 2021-09-21 2021-09-21 Outpatient R ROLF [facility] [id number] Univers 10:45:00 10:45:00 RACHELE ashraf [facility] 2021-09-21 2021-09-21 Ancillary Caitlin Tucker [facility] 1.2.840 .114 [id number] Univers 10:00:00 10:40:00 Visit Rachele Bansal 350.1.13.10 ity of [facility] 4.2.7.2.[place] [id number] Ma dical NAL 179 [facility] 2021-09-18 2021-09-18 Outpatient R JULIO [facility] [id number] Univers 09:00:00 09:00:00 CLARA ashraf [facility] 2021-09-14 2021-09-14 Ancillary Jimy Cardona [facility] 1.2. 840.114 [id number] Univers 14:00:00 15:13:00 Visit Rachele Bansal 350.1.13.10 ity of [facility] 4.2.7.2.[place] [id number] Ma dical NAL 178 [facility] 2021-09-12 2021-09-12 Ancillary Jimy Cardona [facility] 1.2. 840.114 [id number] Univers 16:30:00 17:15:00 Visit Rachele Bansal 350.1.13.10 ity of [facility] 4.2.7.2.[place] [id number] Ma dical NAL 178 [facility] 2021-09-12 2021-09-12 Ancillary Lashaun Bean [facility] 1.2. 840.114 [id number] Univers 15:40:00 16:20:00 Visit Rachele Bansal 350.1.13.10 ity of [facility] 4.2.7.2.[place] [id number] Ma dical [facility] 179 [facility] 2021-09-11 2021-09-11 Outpatient R JOSÉ LUIS [facility] [id number] Univers 08:58:13 23:59:00 BUD ity [facility] 2021-09-11 2021-09-11 Hospital José Luis [facility] 1.2.840.114 [id number] Univers 08:58:13 23:59:00 Encounter Bud ROBERTSON 350.1.13.10 ity of [place]2.7.2.[place] [id number] [facility] [address] 2021-09-11 2021-09-11 Ancillary Ama Manzo [facility] 1 .2.840.114 [id number] Univers 13:00:00 13:41:09 Visit Rachele Bansal 350.1.13.10 ity of [place].2.[place] [id number] [facility] 179 [facility] 2021-09-11 2021-09-11 Outpatient R ROLF [facility] [id number] Univers 13:00:00 13:00:00 RACHELE ashraf [facility] 2021-09-11 2021-09-11 Orders Doctor CRUZ 1.2.840.114 [id number] Univers 00:00:00 00:00:00 Only Unassigned, MELANIE 350.1.13.10 ity of [place] [facility] 4.2.7.2.686 Matt as [id number] [facility] [address] 2021-09-07 2021-09-07 Ancillary Caitlin Tucker [facility] 1.2.840 .114 [id number] Univers 14:20:00 15:00:00 Visit Rachele Bansal 350.1.13.10 ity of [facility] 4.2.7.2.[place] [id number] Ma dical NAL [address] [facility] 2021-09-01 2021-09-01 Urgent Mahamed Robles [facility] 1.2.840. 114 [id number] Univers 16:05:24 16:25:24 Care Musa [facility] 350.1.13.10 ity [facility] 4.2.7.2.686 Matt as FERNANDEZ?BLEA [phone] Me dical [facility] [address] MEDICAL [facility] 2021-09-01 2021-09-01 Outpatient R MUSA [facility] [id number] Univers 16:20:00 16:20:00 POOJA ity [facility] 2021-08-31 2021-08-31 Ancillary Molina Tucker [facility] 1.2.840. 114 [id number] Univers 09:15:12 09:55:12 Visit Rachele Bansal 350.1.13.10 ity of [facility] 4.2.7.2.[place] [id number] Ma dical NAL 179 [facility] 2021-08-29 2021-08-29 Ancillary Jimy Cardona [facility] 1.2. 840.114 [id number] Univers 15:03:16 16:47:58 Visit Rachele Bansal 350.1.13.10 ity of [facility] 4.2.7.2.[place] [id number] Ma dical NAL 178 [facility] 2021-08-29 2021-08-29 Outpatient R ROLF [facility] [id number] Univers 15:00:00 16:47:58 RACHELE ity of [facility] 2021-08-29 2021-08-29 Outpatient R [facility] [id number] Univers 15:00:00 15:00:00 ity of [facility] 2021-08-29 2021-08-29 Ancillary Caitlin Tucker [facility] 1.2.840 .114 [id number] Univers 14:19:03 14:59:03 Visit Rachele Bansal [id number] [facility] [id number] [id number] Ma dical NAL 179 [facility] 2021-08-28 2021-08-28 Refbuffy MoraRUST 1.2.840.114 [id number] Univers 00:00:00 00:00:00 Jovita ROBERTSON [id number] i ty [facility] [id number] [phone] Ma dical VONDA 044 [facility] 2021-08-24 2021-08-24 Outpatient R ROLF [facility] [id number] Univers 16:20:00 16:20:00 [facility]-08-24 2021-08-24 Hasher Operator Vls-Lab [facility] 1.2.840.114 [id number] Univers 09:37:59 09:52:59 Visit Bud Ordonez [id number] [id number] [phone] Ma mehnaz CUELLAR 353 [facility] 2021-08-24 2021-08-24 Outpatient Dg ORDONEZ [facility] [id number] Univers 09:45:00 09:45:00 BUDBEATA ashraf [facility] 2021-08-24 2021-08-24 Outpatient Dg ORDONEZ [facility] [id number] Univers 08:45:00 09:36:57 BUD ashraf [facility] 2021-08-24 2021-08-24 Office José LuisRUST 1.2.840.114 [id number] Univers 08:34:40 09:36:57 Visit Bud SPECIALTY [id number] [id number] [phone] Ma krissarpita GEOVANIAnh 253 [facility] 2021-08-23 2021-08-23 Outpatient Dg MORA [facility] [id number] Univers 15:35:00 14:55:01 JOVITA ashraf [facility] 2021-08-23 2021-08-23 Outpatient Dg MORA [facility] [id number] Univers 15:35:00 14:55:01 JOVITA ashraf [facility] 2021-08-23 2021-08-23 Office Morgan [facility] 1.2.840.114 [id number] Univers 14:44:59 14:55:01 Visit Jovita ROBERTSON [id number] i ty [facility] [id number] [phone] Ma dical NAL 044 [facility] 2021-08-23 2021-08-23 Office Morgan [facility] 1.2.840.114 [id number] Univers 12:50:56 14:54:14 Visit Jovita ROBERTSON [id number] i ty [facility] [id number] [phone] Ma dical NAL 044 [facility] 2021-08-22 2021-08-22 Ancillary Molina Tucker [facility] 1.2.840. 114 [id number] Univers 13:56:21 14:36:21 Visit Rachele Bansal 350.1.13.10 [facility] [place] [phone] Ma dical NAL 179 [facility] 2021-08-22 2021-08-22 Outpatient Dg BANSAL [facility] [id number] Univers 14:20:00 14:20:00 RACHELE estebananh [facility] 2021-08-22 2021-08-22 Ancillary Jimy Cardona [facility] 1.2. 840.114 [id number] Univers 13:03:40 13:48:40 Visit Rachele Bansal 350.1.13.10 it[facility] [place] [phone] Ma dical NAL 178 [facility] 2021-08-22 2021-08-22 Outpatient R ROLF [facility] [id number] Univers 13:00:00 13:00:00 RACHELE andriy [facility] 2021-08-15 2021-08-15 Ancillary Jimy Cardona [facility] 1.2. 840.114 [id number] Univers 13:46:13 15:26:31 Visit Rachele Bansal 350.1.13.10 ity of [place] [phone] Ma dical NAL 178 [facility] 2021-08-15 2021-08-15 Ancillary Ama Manzo [facility] 1 .2.840.114 [id number] Univers 14:22:38 15:22:38 Visit Rachele Bansal 350.1.13.10 ity of [place] [phone] Ma dical NAL 179 [facility] 2021-08-10 2021-08-10 Ancillary Jimy Cardona [facility] 1.2. 840.114 [id number] Univers 08:47:18 09:32:18 Visit Rachele Bansal 350.1.13.10 ity of [place] [phone] Ma dical NAL 178 [facility] 2021-08-08 2021-08-08 Ancillary Jimy Cardona [facility] 1.2. 840.114 [id number] [facility] 13:02:30 13:47:30 Visit Rachele Bansal 350.1.13.10 ity of [place] [phone] Ma dical NAL 178 [facility] 2021-08-08 2021-08-08 Alla Mathis [facility] 1.2.840.114 [id number] Univers 00:00:00 00:00:00 Lakeshia ROBERTSON 350.1.13.10 ity of [place] [phone] Ma dical NAL 231 [facility] 2021-08-08 2021-08-08 Refill Del [facility] 1.2.840.114 [id number] Univers 00:00:00 00:00:00 Lakeshia ROBERTSON 350.1.13.10 ity of [place] [phone] Ma dical NAL [address] [facility] 2021-08-03 2021-08-03 Ancillary Jimy Cardona [facility] 1.2. 840.114 [id number] Univers 13:13:49 15:00:33 Visit BansalRachele 350.1.13.10 ity of [place] 4.[place] [phone] Ma dical NAL [address] [facility] 2021-08-01 2021-08-01 Ancillary Jimy Cardona [facility] 1.2. 840.114 [id number] Univers 14:39:27 15:37:16 Visit Rachele Bansal 350.1.13.10 ity of [place] 4[place] [phone] Ma dical NAL [address] [facility] 2021-07-27 2021-07-27 Ancillary Jimy Cardona [facility] 1.2. 840.114 [id number] Univers 13:22:18 14:41:07 Visit Rachele Bansal 350.1.13.10 ity of [place] [phone] Ma dical NAL [address] [facility] 2021-07-25 2021-07-25 Ancillary Jimy Cardona [facility] 1.2. 840.114 [id number] Univers 12:56:36 13:41:36 Visit Rachele Bansal 350.1.13.10 ity of [place] 4.[place] [phone] Ma dical NAL [address] [facility] 2021-07-25 2021-07-25 NATE Jackson 1.2.840.114 [id number] Univers 00:00:00 00:00:00 [facility] 350.1.13.10 ity of [place] 4.2.7.2.686 Matt as FERNANDEZ?BLEA [phone] Ma dical KNEY [address] [facility] 2021-07-20 2021-07-20 Ancillary Jimy Cardona [facility] 1.2. 840.114 [id number] Univers 13:03:06 14:18:12 Visit Rachele Bansal 350.1.13.10 [facility] 4.2.[place] [phone] Ma dical NAL 178 [facility] 2021-07-20 2021-07-20 Outpatient R ROLF [facility] [id number] [facility] 13:00:00 14:18:12 RACHELE ity [facility] 2021-07-19 2021-07-19 [facility] 1.2.840.114 [id number] Univers 09:47:56 11:03:40 Visit E SPECIALTY 350.1.13.10 [place] AT [phone] Ma mehnaz OLIVO[address] 2021-07-19 2021-07-19 Outpatient R JANNETTE VÁZQUEZ [facility] [id number] Univers 10:15:00 10:15:00 ity of [facility] 2021-07-18 2021-07-18 Ancillary Jimy Cardona [facility] 1.2. 840.114 [id number] [facility] 12:59:20 15:15:55 Visit Rachele Bansal 350.1.13.10 ity of [place] [phone] Ma dic[address] 2021-07-18 2021-07-18 Patient Jannette Vázquez [facility] 1.2.840.114 [id number] Univers 00:00:00 00:00:00 Secure Msg E SPECIALTY 350.1.13.10 it[place] [phone] Ma mehnaz CUELLAR [address] [place] [address] 2021-07-18 2021-07-18 Orders Doctor CRUZ 1.2.840.114 [id number] Univers 00:00:00 00:00:00 Only Unassigned, MELANIE 350.1.13.10 ity of [place] [facility] 4.2.7.2.686 Matt as [phone] [address] 2021-07-14 2021-07-14 Telephone Del [facility] 1.2.840.114 [id number] Univers 00:00:00 00:00:00 Lakeshia Robertson 350.1.13.10 ity of [place] [phone] Ma dical nal 044 [facility] 2021-07-13 2021-07-13 Telephone Jannette Vázquez [facility] 1.2.840.114 [id number] Univers 00:00:00 00:00:00 E SPECIALTY 350.1.13.10 [place] [phone] Ma dicarpita CUELLAR 201 [facility] 2021-07-11 2021-07-11 Ancillary Jimy Cardona [facility] 1.2. 840.114 [id number] Univers 13:08:46 14:52:03 Visit Rachele Bansal 350.1.13.10 it[place] of [place] [phone] Ma dical nal 178 [facility] 2021-07-11 2021-07-11 Orders Doctor NANCY 1.2.840.114 [id number] Univers 00:00:00 00:00:00 Only Unassigned, MELANIE 350.1.13.10 ity of [place] [facility] 4.2.7.2.686 Matt as [phone] [address] 2021-07-04 2021-07-04 Office José Luis [facility] 1.2.840.114 [id number] Univers 08:34:35 09:19:35 Visit Bud SPECIALTY 350.1.13.10 [place] [phone] Ma mehnaz CUELLAR 253 [facility] 2021-07-04 2021-07-04 Outpatient R JOSÉ LUIS [facility] [id number] Univers 09:15:00 09:15:00 BUD ity of [facility] 2021-07-04 2021-07-04 Telephone José Luis [facility] 1.2.935.920 [id number] Univers 00:00:00 00:00:00 Bud SPECIALTY 350.1.13.10 it[place] [phone] Ma dicarpita CUELLAR 253 [facility] 2021-06-29 2021-06-30 Ancillary Jimy Cardona [facility] 1.2. 840.114 [id number] Univers 13:04:18 19:13:36 Visit Rachele Bansal 350.1.13.10 ity of [place] [phone] Ma dical nal 178 [facility] 2021-06-29 2021-06-29 Orders Doctor NANCY 1.2.840.114 [id number] Univers 00:00:00 00:00:00 Only Unassigned, MELANIE 350.1.13.10 ity of [place] [facility] 4.2.7.2.686 Matt as [phone] [facility] [address] [place] 2021-06-28 2021-06-28 Telephone NANCY Dutta 1.2.187.230 [id number] Univers 00:00:00 00:00:00 Ghada MELANIE 350.1.13.10 it y of HOSPITAL 4.2.7.2.686 Mtat as [phone] [facility] [address] [place] 2021-06-28 2021-06-28 Telephone NATE Vigil 1.2.330.415 [id number] Univers 00:00:00 00:00:00 [facility] 350.1.13.10 [place] y of [place] 4.2.7.2.686 Matt as Fernandez?Blea [phone] Ma dicarpita varghese [address] [place] Medical Office [facility] 2021-06-27 2021-06-27 Ancillary Jimy Cardona [facility] 1.2. 840.114 [id number] Univers 13:13:08 14:22:17 Visit Rachele Bansal 350.1.13.10 ity of [place] [phone] Ma dical nal 178 [facility] 2021-06-27 2021-06-27 Laboratory Only, Ang Db Test [facility] 1.2.8 40.114 [id number] Univers 11:10:49 11:25:49 Only Pooja Vigil [facility] 350.1.13.10 [place]y of [place] 4.2.7.2.686 Matt as Fernandez?Blea [phone] [facility] 370 [facility] Office [facility] 2021-06-27 2021-06-27 Out[facility] [id number] Univers 11:15:00 11:15:00 POOJA [facility] 2021-06-24 2021-06-24 Refill Del[facility] 1.2.840.114 [id number] Univers 00:00:00 00:00:00 Lakeshia Robertson 350.1.13.10 it[place] of [place] [phone] [address] 2021-06-20 2021-06-20 Nurse Therapy, Adc Covid Infusion [facility] .2.840.114 [id number] Univers 14:13:10 15:13:10 Visit Eamon Barrow 350.1.13.10 it[place] of [place] [phone] [address] 2021-06-20 2021-06-20 Outpatient R DANIAL [facility] [id number] Univers 14:30:00 14:30:00 EAMON ashraf [facility] 2021-06-13 2021-06-13 [facility] 1.2.840.114 [id number] Univers 14:46:03 15:25:21 Care [facility] 350.1.13.10 i ty of [place] 4.2.7.2.686 Matt as Fernandez?Blea [phone] [address] Office [facility] 2021-06-13 2021-06-13 Outpatient R MARGARET [facility] [id number] Univers 15:00:00 15:00:00 MAHAMED ashraf o f [facility] 2021-06-13 2021-06-13 Orders Doctor NANCY 1.2.840.114 [id number] Univers 00:00:00 00:00:00 Only Unassigned, MELANIE 350.1.13.10 ity of [place] [facility] 4.2.7.2.686 Matt as [phone] [address] 2021-06-13 2021-06-13 Telephone MargaretRUST 1.2.840.114 [id number] Univers 00:00:00 00:00:00 [facility] 350.1.13.10 i ty of [place] 4.2.7.2.686 Matt as Fernandez?Blea [phone] [address] Medical Office Building 2021-06-07 2021-06-07 Ancillary Therapy-Susana DhillonClg-Wn-Evguy [facility] 1.2.840.114 [id number] Univers 14:12:10 15:31:14 Visit Art Reyes 350.1.13.10 ity of [facility] [place].2.7.2.[place] [facility] [phone] [address] ([facility]) 2021-06-07 2021-06-07 Outpatient Dg REYES [facility] [id number] Univers 14:30:00 14:30:00 ART ashraf [facility] 2021-05-15 2021-05-15 Office [facility] 1.2.840.114 [id number] Univers 08:27:02 09:23:57 Visit Yan [facility] 350.1.13.10 it y of [place] 4.2.7.2.686 [facility] [phone] [place] 749178 Branch Office Building 2021-05-15 2021-05-15 Outpatient Dg FRAZIER [facility] [id number] Univers 08:30:00 08:30:00 YAN ashraf [facility] 2021-05-10 2021-05-10 Outpatient JANNETTE BRIGGS [facility] [id number] Univers 10:30:00 10:30:00 andriy [facility] 2021-04-26 2021-04-26 Outpatient Dg JURADO [facility] [id number] Univers 13:30:00 13:30:00 HEATHER ity [facility] 2021-04-24 2021-04-24 Outpatient R FREDDIE, [facility] [id number] Univers 09:00:00 09:00:00 YAN ity [facility] 2021-04-20 2021-04-20 Outpatient R [facility] [id number] Univers 08:20:00 08:20:00 ity [facility] 2021-04-17 2021-04-17 Outpatient R [facility] [id number] Univers 08:00:00 08:00:00 ity [facility] 2021-04-17 2021-04-17 Orders Doctor NANCY 1.2.840.114 [id number] Univers 00:00:00 00:00:00 Only Unassigned, MELANIE 350.1.13.10 ity of [place] [facility] 4.2.7.2.686 Matt as [phone] [address] 2021-04-10 2021-04-10 [address] [id number] Univers 14:40:00 14:40:00 LAKESHIA [facility] 2021-03-23 2021-03-23 Outpatient [facility] [id number] Univers 13:45:00 13:45:00 [facility] 2021-[facility]-14 2021-03-14 [facility] [id number] Univers 15:00:00 15:00:00 RACHELE [facility] 2021-03-13 2021-03-13 Outpatient R [facility] [id number] Univers 09:00:00 09:00:00 ity [facility] 2021-03-03 2021-03-03 Outpatient [facility] [id number] Univers 13:20:00 13:20:00 JOSH [facility] 2021-03-02 2021-03-02 Outpatient R [facility] [id number] Univers 17:20:00 17:20:00 [facility] 2021-02-28 2021-02-28 Outpatient R [facility] [id number] Univers 14:00:00 14:00:00 LIBRADO ashraf [facility] 2021-02-23 2021-02-23 Outpatient R BANSAL [facility] [id number] Univers 14:00:00 14:00:00 RACHELE anh [facility] 2021-02-21 2021-02-21 Outpatient R ELYSE [facility] [id number] Univers 10:00:00 10:00:00 JAIMIE ashraf [facility] 2021-02-16 2021-02-16 Outpatient R ROLF [facility] [id number] Univers 10:30:00 10:30:00 RACHELE [facility] 2021-01-31 2021-01-31 Outpatient R THERESE DADA [facility] [id number] Univers 15:00:00 15:00:00 DADA SALEH [facility] 2021-01-30 2021-01-30 Outpatient R STEWART [facility] [id number] Univers 15:00:00 15:00:00 DANNY estebany o [facility] 2021-01-25 2021-01-25 Outpatient Dg REYES [facility] [id number] Univers 14:30:00 14:30:00 ART [facility] 2021-01-24 2021-01-24 Outpatient R ELYSE [facility] [id number] Univers 11:00:00 11:00:00 JAIMIE [facility] 2021-01-11 2021-01-11 Outpatient R MARGARET [facility] [id number] Univers 09:30:00 09:30:00 MAHAMED carlitoy o [facility] 2021-01-09 2021-01-09 Outpatient R [facility] [id number] Univers 09:00:00 09:00:00 [facility] 2020-12-30 2020-12-30 Outpatient [facility] [id number] Univers 14:50:00 14:50:00 [facility] 2020-12-27 2020-12-27 Outpatient STEWART [facility] [id number] Univers 00:00:00 00:00:00 DANNY hayward [facility] 2020-12-22 2020-12-22 Outpatient R ROLF, [facility] [id number] Univers 14:20:00 14:20:00 RACHELE [facility] 2020-12-13 2020-12-13 Outpatient R STEWART, [facility] [id number] Univers 16:20:00 16:20:00 DANNY hughes [facility] 2020-12-07 2020-12-07 Outpatient R SAMMIE, [facility] [id number] Univers 14:50:00 14:50:00 TORSTEN andriy [facility] 2020-11-29 2020-11-29 Outpatient R ROLF, [facility] [id number] Univers 13:40:00 13:40:00 RACHELE [facility] 2020-11-16 2020-11-16 Outpatient R SURI, [facility] [id number] Univers 00:00:00 00:00:00 RJ [facility] 2020-11-15 2020-11-15 Outpatient R ROQUE, [facility] [id number] Univers 15:00:00 15:00:00 ART [facility] 2020-11-07 2020-11-07 Outpatient R STEWART, [facility] [id number] Univers 11:00:00 11:00:00 DANNY hughes [facility] 2020-11-02 2020-11-02 Outpatient R SURI, [facility] [id number] Univers 09:30:00 09:30:00 RJ [facility] 2020-10-21 2020-10-21 Outpatient R [facility] [id number] Univers 16:40:00 16:40:00 [facility] 2020-10-18 2020-10-18 Outpatient R SILVIA, [facility] [id number] Univers 14:40:00 14:40:00 SANDISWAPNIL hughes [facility] 2020-10-14 2020-10-14 Outpatient R SURI, [facility] [id number] Univers 10:00:00 10:00:00 RJ [facility] 2020-08-29 2020-08-29 Telephone MorganR[facility] 1.2.840.114 [id number] 00:00:00 00:00:00 Jovita Robertson 350.1.13.10 [place] 4.2.7.2.686 Professio [phone] [facility] 044 [facility] 2020-08-24 2020-08-24 Out[facility] [id number] Univers 11:15:00 11:15:00 LAKESHIA [facility] 2020-08-24 2020-08-24 Hasher Operator 2, Adc Lab [facility] 1.2.840.114 [id number] 10:59:50 11:14:50 Visit Marcelo 350.1.13.10 [place] 4.2.7.2.686 Professio [phone] [facility] 353 [facility] 2020-08-16 2020-08-16 Office Del[facility] 1.2.840.114 [id number] 13:06:10 14:31:10 Visit Lakeshia Robertson 350.1.13.10 [place] 4.2.7.2.686 Professio [phone] nal 231 [facility] 2020-08-16 2020-08-16 [address] [id number] Univers 13:00:00 13:00:00 LAKESHIA [facility] 2020-06-23 2020-06-23 Outpatient R [facility] [id number] Univers 11:20:00 11:20:00 [facility] 2020-06-17 2020-06-17 Outpatient R DANIAL [facility] [id number] Univers 09:30:00 09:30:00 CHILVANA ity o f [facility] 2020-06-17 2020-06-17 Outpatient R DANIAL [facility] [id number] Univers 09:30:00 09:30:00 CHILVANA ity o f [facility] 2020-06-15 2020-06-15 Outpatient R ROLF [facility] [id number] Univers 14:40:00 14:40:00 RACHELE [facility] 2020-06-07 2020-06-07 Outpatient R ARIEL [facility] [id number] Univers 09:55:00 09:55:00 MAXIMO anh [facility] 2020-05-09 2020-05-09 Outpatient R SURAJJOSESIDNEY [facility] [id number] Univers 10:40:00 10:40:00 MAXIMO ashraf [facility] 2020-05-03 2020-05-03 Outpatient Dg RAMACHANDRAN [facility] [id number] Univers 10:40:00 10:40:00 TAMIKO ity [facility] 2020-04-26 2020-04-26 Outpatient Dg RAMACHANDRAN [facility] [id number] Univers 11:41:39 11:41:39 TAMIKO ity [facility] 2020-04-26 2020-04-26 Outpatient Dg RAMACHANDRAN [facility] [id number] Univers 00:00:00 00:00:00 TAMIKO ity [facility] 2020-04-11 2020-04-11 Outpatient R JOSIE TIMMONS [facility] [id number] Univers 10:00:00 10:00:00 JOSIE TIMMONS andriy [facility] 2020-03-30 2020-03-30 Outpatient Dg RAMACHANDRAN [facility] [id number] Univers 11:00:00 11:00:00 TAMIKO anh [facility] 2020-03-15 2020-03-15 Outpatient Dg RAMACHANDRAN [facility] [id number] Univers 11:40:00 11:40:00 TAMIKO anh [facility] 2020-03-03 2020-03-03 Outpatient Dg MATHIS [facility] [id number] Univers 16:00:00 16:00:00 LAKESHIA ashraf [facility] 2020-03-01 2020-03-01 Outpatient R DEL [facility] [id number] Univers 08:40:00 08:40:00 LAKESHIA ashraf [facility] 2020-02-24 2020-02-24 Outpatient Dg RAMACHANDRAN [facility] [id number] Univers 11:00:00 11:00:00 TAMIKO anh [facility] 2020-02-16 2020-02-16 Outpatient Dg MONTERO [facility] [id number] Univers 09:03:11 23:59:00 EJSOE andriy hughes ruth [facility] 2020-02-08 2020-02-08 Outpatient R DEL [facility] [id number] Univers 13:20:00 13:20:00 LAKESHIA ashraf [facility] 2020-01-22 2020-01-22 Outpatient R WINSTON [facility] [id number] Univers 09:45:00 09:45:00 E, JOSE andriy hughes ruth [facility] 2020-01-20 2020-01-20 Outpatient R WINSTON [facility] [id number] Univers 14:30:00 14:30:00 E, JOSE andriy hughes ruth [facility] 2019-12-24 2019-12-24 Outpatient R MADIE [facility] [id number] Univers 10:20:00 10:20:00 TAMIKO anh [facility] 2019-12-18 2019-12-18 Outpatient R MORGAN [facility] [id number] Univers 10:20:00 10:20:00 JOVITA ashraf [facility] 2019-12-03 2019-12-03 Outpatient R MADIE [facility] [id number] Univers 10:20:00 10:20:00 TAMIKO [facility] 2019-11-20 2019-11-20 Outpatient R GIOVANYMARCELLA [facility] [id number] Univers 15:20:00 15:20:00 JOVITA ashraf [facility] 2019-11-19 2019-11-19 Outpatient R MADIE [facility] [id number] Univers 09:56:55 23:59:00 TAMIKO ashraf [facility] 2019-11-05 2019-11-05 Outpatient R SURI [facility] [id number] Univers 10:41:03 23:59:00 RJ anh [facility] 2019-11-05 2019-11-05 Outpatient R SURI [facility] [id number] Univers 10:41:03 23:59:00 RJ anh [facility] 2019-09-29 2019-09-29 Outpatient R MARGARET [facility] [id number] Univers 11:00:00 11:28:31 MAHAMED carlitoanh hughes ruth [facility] 2018-02-03 2018-02-03 Appointmen CASTILLO, [facility] [id number] [place] 09:00:00 09:00:00 t; Rakel LIMON M.D. ans JEFFREY, M.D. 2017-12-30 2017-12-30 Appointmen CASTILLO, [facility] [id number] [place] 11:30:00 11:30:00 t; [place] Physi Phil Garcia M.D. 2017-12-23 2017-12-23 Appointmen CASTILLO, [facility]TP [id number] [place] 11:30:00 11:30:00 t; [place] Physi Phil Garcia M.D. 2017-11-04 2017-11-04 Appointmen ANNA, [facility] [id number] UT 10:00:00 10:00:00 t; Rakel LIMON M.D. ans JEFFREY, M.D. 2017-10-28 2017-10-28 Appointmen CASTILLO, [facility]TP [id number] UT 10:00:00 10:00:00 t; [place] Physi Phil Garcia M.D. 2017-10-15 2017-10-15 Appointmen OKPRAVINA, [facility]TP [id number] [place] 11:30:00 11:30:00 t; ROBSON MURILLO, [employer] Physici MUNACHI, ans [employer] 2017-09-11 2017-09-11 Appointmen OKPALA, [facility] UTP [id number] [place] 09:30:00 09:30:00 t; ROBSON MURILLO, [employer] Physici MUNACHI, ans [employer] 2017-09-10 2017-09-10 Appointmen OKPALA, [facility] UTP [id number] UT 09:30:00 09:30:00 t; OKYUMIKO MORALESACHI, [employer] Physici MUNACHI, ans [employer]ER 2017-09-09 2017-09-09 Appointmen CASTILLO, [facility] UTP [id number] [place] 10:00:00 10:00:00 t; [place] Physi Phil Garcia M.D. 2017-07-29 2017-07-29 Appointmen ANNA, [facility] UTP [id number] UT 11:30:00 11:30:00 t; [place] Physi Phil Garcia M.D. 2017-07-22 2017-07-[facility] UTP [id number] [place] 11:30:00 11:30:00 t; Rakel LIMON M.D. ans JEFFREY, M.D. 2017-06-24 2017-06-24 AppointLUCIAN Rascon UTP [id number] [place] 14:00:00 14:00:00 t; [place] Physi Phil Garcia M.D. 2017-06-14 2017-06-15 Outpt Diag nullFlavo [facility] [id number] Memoria 17:20:00 04:59:00 Services r Outpatient 00 l Imaging [facility] 2017-06-14 2017-06-14 [facility] LU[facility] MURILLO UTP [id number] [place] 10:00:00 10:00:00 t; ROBSON MURILLO, [employer] Physici MUNACHI, ans [employer] 2017-03-15 2017-03-15 [facility] LU[facility] MURILLO UTP [id number] UT 10:30:00 10:30:00 t; ROBSON MURILLO, [employer] Physici MUNACHI, ans [employer] 2017-01-05 2017-01-05 Emergency nullFlavo [facility] [id number] Memoria 06:29:00 11:27:00 r Srikanth 05 [facility] 2014-03-21 2014-03-21 EC nullFlavo [facility] [id number] Memoria 02:06:00 06:23:00 Emergency r [place] 01 l [facility] 2014-03-18 2014-03-19 OBS nullFlavo [facility] [id number] Memoria 01:46:00 17:05:00 Observatio r [place] 00 l n Patient [facility] 2013-11-30 2014-01-01 Inpatient nullFlavo [facility] [id number] Memoria 23:52:00 18:40:00 Rehab r Srikanth 66 [facility] 2013-11-26 2013-11-30 Inpatient nullFlavo [facility] [id number] Memoria 12:38:00 23:23:00 r Srikanth [id number] l Hospital 7 [place] Results Test Description Test Time Test Comments Results Result Comments Source HEMATOLOGY 2017-01-05 09:54:30 Test Item Value Reference Range Interpretation Comme nts Sed Rate (test code = Sed 28 See_Comment [ Automated message] The system which Rate) generated this result transmitted reference range : <=20. The reference range was not u sed to interpret this result as dequan l/abnormal. [facility]FHCSNKDDZF0854[facility]-93 09:54:30 Test Item Value Reference Range Interpretation Comments C-REACTIVE PROTEIN (test code = 6.7 C-REACTIVE PROTEIN) [facility] AND [id number] 09:19:56 Test Item Value Reference Range Interpretation Comments UA Spec Grav (test code = UA Spec 1.010 1 Grav) [facility] AND [id number] 09:19:56 Test Item Value Reference Range Interpretation Comments UA Protein (test code = UA Negative mg/dL Protein) [facility] AND [id number] 09:19:56 Test Item Value Reference Range Interpretation Comments UA pH (test code = UA pH) 6.0 1 5.0-8.0 [facility] AND [id number] 09:19:56 Test Item Value Reference Range Interpretation Comments UA Ketones (test code = UA Negative mg/dL Ketones) [facility] AND [id number] 09:19:56 Test Item Value Reference Range Interpretation Comments UA Glucose (test code = UA Negative mg/dL Glucose) [facility] AND [id number] 09:19:56 Test Item Value Reference Range Interpretation Comments UA Bili (test code = Negative *NA*(01/05/17 UA Bili) 4:19 AM) [facility] AND [id number] 09:19:56 Test Item Value Reference Range Interpretation Comments UA Color (test code = Yellow *NA*(01/05/17 UA Color) 4:19 AM) [facility] AND [id number] 09:19:56 Test Item Value Reference Range Interpretation Comments UA Turbidity (test code = Clear (01/05/17 4:19 UA Turbidity) AM) [facility] AND [id number] 09:19:56 Test Item Value Reference Range Interpretation Comments UA Urobilinogen (test code = UA 0.2 0.1-1.0 Urobilinogen) [facility] AND [id number] 09:19:56 Test Item Value Reference Range Interpretation Comments UA Blood (test code = Negative (01/05/17 4:19 UA Blood) AM) [facility] AND [id number] 09:19:56 Test Item Value Reference Range Interpretation Comments UA Leuk Est (test Negative (01/05/17 4:19 code = UA Leuk Est) AM) [facility] AND [id number] 09:19:56 Test Item Value Reference Range Interpretation Comments UA Nitrite (test code Negative (01/05/17 4:19 = UA Nitrite) AM) [facility] AND [id number] 09:19:56 Test Item Value Reference Range Interpretation Comments UA WBC (test code = UA WBC) 0-2 /HPF [facility] AND [id number] 09:19:56 Test Item Value Reference Range Interpretation Comments UA Sq Epi (test code = UA Sq Epi) Few /LPF [facility] AND [id number] 09:19:56 Test Item Value Reference Range Interpretation Comments UA Bacteria (test code = UA Occasional /HPF Bacteria) [facility] AND [id number] 09:19:56 Test Item Value Reference Range Interpretation Comments UA RBC (test code = 0-2 /HPF See_Comment [Automa blayne message] The UA RBC) system which ge nerated this result tra nsmitted reference range : <=2. The reference range was not used to interpr et this result as dequan l/abnormal. [facility] AND [id number] 09:19:56 Test Item Value Reference Range Interpretation Comments UA Mucus (test code = UA Mucus) Few /LPF [facility] [id number] 06:57:00 Test Item Value Reference Range Interpretation Comments eGFR (test code = eGFR) 78 [facility] [id number] 06:57:00 Test Item Value Reference Range Interpretation Comments Calcium Lvl (test code = Calcium Lvl) 9.1 8.5-10.5 [facility]2017-04-15 06:57:00 Test Item Value Reference Range Interpretation Comments AGAP (test code = AGAP) 11.2 10.0-20.0 [facility] [id number] 06:57:00 Test Item Value Reference Range Interpretation Comments CO2 (test code = CO2) 30 24-32 [facility]2017-04-15 06:57:00 Test Item Value Reference Range Interpretation Comments Chloride Lvl (test code = Chloride Lvl) 103 95-109 [place] 109917-04-15 06:57:00 Test Item Value Reference Range Interpretation Comments Potassium Lvl (test code = Potassium 4.2 3.5-5.1 Lvl) [facility]2017-04-15 06:57:00 Test Item Value Reference Range Interpretation Comments Sodium Lvl (test code = Sodium Lvl) 140 135-145 [facility]2017-04-15 06:57:00 Test Item Value Reference Range Interpretation Comments Creatinine Lvl (test code = Creatinine 0.87 0.50-1.40 Lvl) [facility]2017-04-15 06:57:00 Test Item Value Reference Range Interpretation Comments BUN (test code = BUN) 18 7-22 [place] 109917-04-15 06:57:00 Test Item Value Reference Range Interpretation Comments Glucose Lvl (test code = Glucose Lvl) 128 70-99 [facility]OdvpaysEQVLXMATXN0103-42-79 06:57:00 Test Item Value Reference Range Interpretation Comments Monocytes # (test code 0.6 See_Comment [Aut omated message] The = Monocytes #) system which generated this result tra nsmitted reference range : <=0.8. The reference r celio was not used to int erpret this result as normal/abnormal . [facility]leResnfojBZSPUIYOTQ3644-39-81 06:57:00 Test Item Value Reference Range Interpretation Comments Eosinophils # (test code 0.2 See_Comment [A utomated message] The = Eosinophils #) system whic h generated this result tra nsmitted reference range : <=0.5. The reference r celio was not used to int erpret this result as normal/abnormal . [facility] [id number] 06:57:00 Test Item Value Reference Range Interpretation Comments Basophils # (test code 0.1 See_Comment [Aut omated message] The = Basophils #) system which generated this result tra nsmitted reference range : <=0.2. The reference r celio was not used to int erpret this result as normal/abnormal . [facility] AzleRdsghfbRNWGQTOZIO8736-91-81 06:57:00 Test Item Value Reference Range Interpretation Comments Eosinophils (test code = 2.4 See_Comment [A utomated message] The Eosinophils) system which ge nerated this result tra nsmitted reference range : <=4.0. The reference r celio was not used to int erpret this result as normal/abnormal . [facility] AzleDubfmzyUXIUYBENFN2877-06-70 06:57:00 Test Item Value Reference Range Interpretation Comments Basophils (test code = 0.6 See_Comment [Aut omated message] The Basophils) system which ge nerated this result tra nsmitted reference range : <=1.0. The reference r celio was not used to int erpret this result as normal/abnormal . [facility] AzleNfgxiwfHAXDRTKLAR7805-50-87 06:57:00 Test Item Value Reference Range Interpretation Comments Segs-Bands # (test code = Segs-Bands #) 5.3 1.5-8.1 [facility] AzleSujcnuvABNIKKAPVT2734-11-56 06:57:00 Test Item Value Reference Range Interpretation Comments Segs (test code = Segs) 55.9 45.0-75.0 [facility] AzleCzizlqkDBZELAQCMD2384-12-80 06:57:00 Test Item Value Reference Range Interpretation Comments Lymphocytes (test code = Lymphocytes) 34.3 20.0-40.0 [facility] AzleKjyjjcvCWIDRBFBLJ8690-17-22 06:57:00 Test Item Value Reference Range Interpretation Comments Monocytes (test code = Monocytes) 6.8 2.0-12.0 [facility] AzleWjbkwoxISEESNOBRK3370-86-13 06:57:00 Test Item Value Reference Range Interpretation Comments Lymphocytes # (test code = Lymphocytes 3.2 1.0-5.5 #) [facility] AzleEntjcztVNNFOOEPTC9256-75-17 06:57:00 Test Item Value Reference Range Interpretation Comments Hct (test code = Hct) 40.3 36.0-48.0 [facility] AzleKrubfuqLKRZYGHABP1695-00-82 06:57:00 Test Item Value Reference Range Interpretation Comments Hgb (test code = Hgb) 14.2 12.0-16.0 [facility] AzleFmooaemVMIZMHHTTH7188-70-55 06:57:00 Test Item Value Reference Range Interpretation Comments RBC (test code = RBC) 4.54 4.20-5.40 [facility] AzleSueohwdPDFOUETBII9280-25-86 06:57:00 Test Item Value Reference Range Interpretation Comments WBC (test code = WBC) 9.4 3.7-10.4 [facility] AzleCrjnhoyDNFWYJJSJA5236-19-49 06:57:00 Test Item Value Reference Range Interpretation Comments MCV (test code = MCV) 88.6 80.0-98.0 [facility] AzleWmdexghVCWDHBUNDO5232-75-26 06:57:00 Test Item Value Reference Range Interpretation Comments MCH (test code = MCH) 31.3 pg 27.0-31.0 [facility] AzleRmkeokwUPFNYIUDAE2645-46-62 06:57:00 Test Item Value Reference Range Interpretation Comments MPV (test code = MPV) 7.4 7.4-10.4 [facility] AzleWjvbeosBUCNMARMZJ9241-58-27 06:57:00 Test Item Value Reference Range Interpretation Comments Platelet (test code = Platelet) 295 133-450 [facility] AzleJoyprjdZKCGMJKNYL5320-34-12 06:57:00 Test Item Value Reference Range Interpretation Comments RDW (test code = RDW) 13.7 11.5-14.5 [facility] AzleLdcncddUKVFMPUBQZ6184-79-17 06:57:00 Test Item Value Reference Range Interpretation Comments MCHC (test code = MCHC) 35.3 32.0-36.0 [facility] AND [id number] 13:57:55 Test Item Value Reference Range Interpretation Comments UA Spec Grav (test code = UA Spec 1.015 1 Grav) [facility] AND [id number] 13:57:55 Test Item Value Reference Range Interpretation Comments UA pH (test code = UA pH) 6.0 1 5.0-8.0 [facility] AND [id number] 13:57:55 Test Item Value Reference Range Interpretation Comments UA Turbidity (test code = Clear (03/18/14 8:57 UA Turbidity) AM) [facility] AND [id number] 13:57:55 Test Item Value Reference Range Interpretation Comments UA Urobilinogen (test code = UA 0.2 0.1-1.0 Urobilinogen) [facility] AND [id number] 13:57:55 Test Item Value Reference Range Interpretation Comments UA Leuk Est (test Negative (03/18/14 8:57 code = UA Leuk Est) AM) [facility] AND [id number] 13:57:55 Test Item Value Reference Range Interpretation Comments UA Nitrite (test code Negative (03/18/14 8:57 = UA Nitrite) AM) [facility] AND [id number] 13:57:55 Test Item Value Reference Range Interpretation Comments UA Color (test code = Yellow *NA*(03/18/14 UA Color) 8:57 AM) [facility] AND [id number] 13:57:55 Test Item Value Reference Range Interpretation Comments UA Bili (test code = Negative *NA*(03/18/14 UA Bili) 8:57 AM) [facility] AND [id number] 13:57:55 Test Item Value Reference Range Interpretation Comments UA Ketones (test code = Trace *ABN*(03/18/14 UA Ketones) 8:57 AM) [facility] AND [id number] 13:57:55 Test Item Value Reference Range Interpretation Comments UA Blood (test code = Trace *ABN*(03/18/14 UA Blood) 8:57 AM) [facility] AND [id number] 13:57:55 Test Item Value Reference Range Interpretation Comments UA Glucose (test code Negative (03/18/14 8:57 = UA Glucose) AM) [facility] AND [id number] 13:57:55 Test Item Value Reference Range Interpretation Comments UA Protein (test code Negative (03/18/14 8:57 = UA Protein) AM) [facility] AND [id number] 13:57:55 Test Item Value Reference Range Interpretation Comments UA Sq Epi (test code = UA Sq Epi) Few /LPF [facility] AND [id number] 13:57:55 Test Item Value Reference Range Interpretation Comments UA RBC (test code = 0-2 /HPF See_Comment [Automa blayne message] The UA RBC) system which ge nerated this result tra nsmitted reference range : <=2. The reference range was not used to interpr et this result as dequan l/abnormal. [facility] AND [id number] 13:57:55 Test Item Value Reference Range Interpretation Comments UA WBC (test code = UA WBC) 0-2 /HPF [facility] AND [id number] 13:57:55 Test Item Value Reference Range Interpretation Comments UA Mucus (test code = None Seen (03/18/14 UA Mucus) 8:57 AM) [facility] [id number] 13:57:55 Test Item Value Reference Range Interpretation Comments UA Bacteria (test code = UA Moderate /HPF Bacteria) [facility] Bro[id number] 11:20:00 Test Item Value Reference Range Interpretation Comments CHD Risk (test code = CHD Risk) 4.39 3.90-5.80 [facility] BrownwoodMfkfkliIPQOHN4810-29-17 11:20:00 Test Item Value Reference Range Interpretation Comments LDL (Calculated) (test code = LDL 120 (Calculated)) [facility]bergUequlkaSCCGDQ4163-92-25 11:20:00 Test Item Value Reference Range Interpretation Comments Trig (test code = Trig) 145 [facility] KlebergOxatixiXEIQJU8015-77-93 11:20:00 Test Item Value Reference Range Interpretation Comments Chol (test code = Chol) 193 [facility] KlebergEtutiytEUUNMW4647-31-66 11:20:00 Test Item Value Reference Range Interpretation Comments HDL (test code = HDL) 44 [facility] KlebergJxhjwytGSTCXY7125-40-07 11:20:00 Test Item Value Reference Range Interpretation Comments VLDL (test code = VLDL) [id number] 11:20:00 Test Item Value Reference Range Interpretation Comments Hgb A1C (test code = Hgb A1C) 4.9 [facility] [id number] 02:54:00 Test Item Value Reference Range Interpretation Comments eGFR (test code = eGFR) 87 [facility]Session[facility] [id number] 02:54:00 Test Item Value Reference Range Interpretation Comments POC Creatinine (test code = POC 0.8 0.5-1.4 Creatinine) [facility] [id number] 02:35:26 Test Item Value Reference Range Interpretation Comments eGFR (test code = eGFR) 87 [facility]Session[facility] YEARX3773-10-04 02:35:26 Test Item Value Reference Range Interpretation Comments Calcium Lvl (test code = Calcium Lvl) 10.0 8.5-10.5 [facility] [id number] 02:35:26 Test Item Value Reference Range Interpretation Comments Sodium Lvl (test code = Sodium Lvl) 140 135-145 [facility]2014-06-26 02:35:26 Test Item Value Reference Range Interpretation Comments Creatinine Lvl (test code = Creatinine 0.8 0.5-1.4 Lvl) [facility]2014-06-26 02:35:26 Test Item Value Reference Range Interpretation Comments Chloride Lvl (test code = Chloride Lvl) 103 95-109 [place] 109914-06-26 02:35:26 Test Item Value Reference Range Interpretation Comments Potassium Lvl (test code = Potassium 4.0 3.5-5.1 Lvl) [facility]2014-06-26 02:35:26 Test Item Value Reference Range Interpretation Comments CO2 (test code = CO2) 30 24-32 [place] 109914-06-26 02:35:26 Test Item Value Reference Range Interpretation Comments BUN (test code = BUN) 13 7-22 [facility]2014-06-26 02:35:26 Test Item Value Reference Range Interpretation Comments Glucose Lvl (test code = Glucose Lvl) 106 70-99 [facility]2014-06-26 02:35:26 Test Item Value Reference Range Interpretation Comments AGAP (test code = AGAP) 11.0 10.0-20.0 [facility] AzleOdxjwoxFRTRZJZGVA1829-83-30 02:35:26 Test Item Value Reference Range Interpretation Comments Basophils (test code = 1.4 See_Comment [Aut omated message] The Basophils) system which ge nerated this result tra nsmitted reference range : <=1.0. The reference r celio was not used to int erpret this result as normal/abnormal . [facility] AzleBctsvfdEXAXYSNQSM0619-46-46 02:35:26 Test Item Value Reference Range Interpretation Comments Segs-Bands # (test code = Segs-Bands #) 5.3 1.5-8.1 [facility] [id number] 02:35:26 Test Item Value Reference Range Interpretation Comments Segs (test code = Segs) 54.6 45.0-75.0 [facility] AzleSwyrnzdKQBYUNXDVZ3556-06-98 02:35:26 Test Item Value Reference Range Interpretation Comments Eosinophils # (test code 0.2 See_Comment [A utomated message] The = Eosinophils #) system whic h generated this result tra nsmitted reference range : <=0.5. The reference r celio was not used to int erpret this result as normal/abnormal . [facility] AzleYkbehivAPONQOZVQU3942-91-87 02:35:26 Test Item Value Reference Range Interpretation Comments Basophils # (test code 0.1 See_Comment [Aut omated message] The = Basophils #) system which generated this result tra nsmitted reference range : <=0.2. The reference r celio was not used to int erpret this result as normal/abnormal . [facility] AzleEfdywibPVODONWOIE8491-76-45 02:35:26 Test Item Value Reference Range Interpretation Comments Lymphocytes # (test code = Lymphocytes 3.7 1.0-5.5 #) [facility] AzleBprabkhCBDNBKJGDC7270-18-31 02:35:26 Test Item Value Reference Range Interpretation Comments Monocytes # (test code 0.4 See_Comment [Aut omated message] The = Monocytes #) system which generated this result tra nsmitted reference range : <=0.8. The reference r celio was not used to int erpret this result as normal/abnormal . [facility] AzleGmxzufyKGSBQBVVTV8392-88-95 02:35:26 Test Item Value Reference Range Interpretation Comments Monocytes (test code = Monocytes) 3.9 2.0-12.0 [facility] AzleUgoygwkHFTCWIEQTY6660-03-75 02:35:26 Test Item Value Reference Range Interpretation Comments Eosinophils (test code = 2.3 See_Comment [A utomated message] The Eosinophils) system which ge nerated this result tra nsmitted reference range : <=4.0. The reference r celio was not used to int erpret this result as normal/abnormal . [facility] AzleKxbzgwcYRZTSZLNJT8239-57-09 02:35:26 Test Item Value Reference Range Interpretation Comments Lymphocytes (test code = Lymphocytes) 37.8 20.0-40.0 [facility] AzleLfxbjjxBKHXAHYFYG0426-01-54 02:35:26 Test Item Value Reference Range Interpretation Comments RBC (test code = RBC) 4.83 4.20-5.40 [facility] AzleEgvrsbbSUSIAEECNJ3504-61-84 02:35:26 Test Item Value Reference Range Interpretation Comments MPV (test code = MPV) 8.1 7.4-10.4 [facility] AzleYiepbztMJQABYRPCK5379-38-44 02:35:26 Test Item Value Reference Range Interpretation Comments Hgb (test code = Hgb) 14.7 12.0-16.0 [facility] AzleCpfnkjtQZHXSPYYDG4805-57-02 02:35:26 Test Item Value Reference Range Interpretation Comments MCV (test code = MCV) 89.2 81.0-99.0 [facility] AzleLlpgatxTFMHGJHMMD7281-27-58 02:35:26 Test Item Value Reference Range Interpretation Comments Hct (test code = Hct) 43.1 36.0-48.0 [facility] AzleYkqvkbdLCVLMINEIY8106-78-86 02:35:26 Test Item Value Reference Range Interpretation Comments MCH (test code = MCH) 30.4 pg 27.0-31.0 [facility] AzleUbihkxoDBPRDRDTHF3403-26-49 02:35:26 Test Item Value Reference Range Interpretation Comments WBC (test code = WBC) 9.7 3.7-10.4 [facility] AzleIefllluRDLWQYSFCZ9805-57-87 02:35:26 Test Item Value Reference Range Interpretation Comments RDW (test code = RDW) 12.8 11.5-14.5 [facility] AzleRsjbuvbDUHVQONLNF5144-10-18 02:35:26 Test Item Value Reference Range Interpretation Comments Platelet (test code = Platelet) 372 133-450 [facility] AzleKmymafmMDNJPHAEPK0641-88-16 02:35:26 Test Item Value Reference Range Interpretation Comments MCHC (test code = MCHC) 34.0 32.0-36.0 [facility] AzleTrhoaahQAUKLQOIRY2440-03-64 02:35:26 Test Item Value Reference Range Interpretation Comments PT (test code = PT) 12.2 s 12.0-14.7 [facility] AzleEkzczalFLYAVMYWAT3204-65-40 02:35:26 Test Item Value Reference Range Interpretation Comments INR (test code = INR) 0.91 0.85-1.17 [facility] AzleJwtevenKIVPREBDVF6018-53-11 02:35:26 Test Item Value Reference Range Interpretation Comments PTT (test code = PTT) 30.2 s 22.9-35.8 [facility]2014-04-10 19:39:00 Test Item Value Reference Range Interpretation Comments UA Urobilinogen (test code = UA <=1.0 mg/dL 0.1-1.0 Urobilinogen) [facility]2014-04-10 19:39:00 Test Item Value Reference Range Interpretation Comments UA Mucus (test code = UA Mucus) Few /LPF [facility] AND [id number] 19:39:00 Test Item Value Reference Range Interpretation Comments UA Bacteria (test code = UA Occasional /HPF Bacteria) [facility] AND [id number] 19:39:00 Test Item Value Reference Range Interpretation Comments UA Sq Epi (test code = UA Sq Epi) Few /LPF [facility] AND [id number] 19:39:00 Test Item Value Reference Range Interpretation Comments UA WBC (test code = 2 See_Comment [Automa blayne message] The UA WBC) system which ge nerated this result transmit blayne reference range : <=5. The reference range was not used to interpr et this result as dequan l/abnormal. [facility] AND [id number] 19:39:00 Test Item Value Reference Range Interpretation Comments UA Blood (test code = Negative (12/31/13 2:39 UA Blood) PM) [facility] AND [id number] 19:39:00 Test Item Value Reference Range Interpretation Comments UA Nitrite (test code Negative (12/31/13 2:39 = UA Nitrite) PM) [facility] AND [id number] 19:39:00 Test Item Value Reference Range Interpretation Comments UA Leuk Est (test code Small *ABN*(12/31/13 = UA Leuk Est) 2:39 PM) [facility] AND [id number] 19:39:00 Test Item Value Reference Range Interpretation Comments UA Glucose (test code = UA Negative mg/dL Glucose) [facility] AND [id number] 19:39:00 Test Item Value Reference Range Interpretation Comments UA Ketones (test code = UA Negative mg/dL Ketones) [facility] AND [id number] 19:39:00 Test Item Value Reference Range Interpretation Comments UA Bili (test code = Negative *NA*(12/31/13 UA Bili) 2:39 PM) [facility] AND [id number] 19:39:00 Test Item Value Reference Range Interpretation Comments UA Spec Grav (test code = UA Spec Grav) 1.017 [facility] AND [id number] 19:39:00 Test Item Value Reference Range Interpretation Comments UA Protein (test code = UA Protein) 20 mg/dL [facility] AND [id number] 19:39:00 Test Item Value Reference Range Interpretation Comments UA pH (test code = UA pH) 6.0 5.0-8.0 [facility] AND [id number] 19:39:00 Test Item Value Reference Range Interpretation Comments UA Turbidity (test code = Clear (12/31/13 2:39 UA Turbidity) PM) [facility] AND [id number] 19:39:00 Test Item Value Reference Range Interpretation Comments UA Color (test code = Yellow *NA*(12/31/13 UA Color) 2:39 PM) [facility]LfnsemmKUCPLULTKJ4675-74-95 11:00:00 Test Item Value Reference Range Interpretation Comments RDW (test code = RDW) 14.7 11.5-14.5 [facility]leToxpjyoATKFDZYNNJ7582-87-99 11:00:00 Test Item Value Reference Range Interpretation Comments Hct (test code = Hct) 37.8 36.0-48.0 [facility]leAfjwioiPYJPNGCGSW9203-33-11 11:00:00 Test Item Value Reference Range Interpretation Comments Hgb (test code = Hgb) 12.7 12.0-16.0 [facility]leWnwzqtsICUUHFMLQR2112-20-57 11:00:00 Test Item Value Reference Range Interpretation Comments WBC (test code = WBC) 8.3 3.7-10.4 [facility]leWssayewVAOAWPMAXC9033-57-37 11:00:00 Test Item Value Reference Range Interpretation Comments RBC (test code = RBC) 4.21 4.20-5.40 [facility] AzleHxmoxojJAFZBTXYDM8686-13-18 11:00:00 Test Item Value Reference Range Interpretation Comments MCHC (test code = MCHC) 33.6 32.0-36.0 [facility] AzleVotabswACKRWJXZKG9036-84-23 11:00:00 Test Item Value Reference Range Interpretation Comments MCH (test code = MCH) 30.1 pg 27.0-31.0 [facility] AzleLnpjcuvQNGHRYHGFT0353-38-59 11:00:00 Test Item Value Reference Range Interpretation Comments MCV (test code = MCV) 89.6 81.0-99.0 [facility] AzleZkjjgfoZAWMQKFWAB6781-45-89 11:00:00 Test Item Value Reference Range Interpretation Comments Segs (test code = Segs) 58.8 45.0-75.0 [facility] AzleLpziesaRUIVHVCKUX4074-66-84 11:00:00 Test Item Value Reference Range Interpretation Comments Monocytes # (test code 0.6 See_Comment [Aut omated message] The = Monocytes #) system which generated this result tra nsmitted reference range : <=0.8. The reference r celio was not used to int erpret this result as normal/abnormal . [facility] AzleSnnwlegHSSSSIXUKV5896-07-26 11:00:00 Test Item Value Reference Range Interpretation Comments Eosinophils # (test code 0.3 See_Comment [A utomated message] The = Eosinophils #) system whic h generated this result tra nsmitted reference range : <=0.5. The reference r celio was not used to int erpret this result as normal/abnormal . [facility] AzlePyuuplfVAUVQUOBKJ7143-25-07 11:00:00 Test Item Value Reference Range Interpretation Comments Basophils (test code = 0.6 See_Comment [Aut omated message] The Basophils) system which ge nerated this result tra nsmitted reference range : <=1.0. The reference r celio was not used to int erpret this result as normal/abnormal . [facility] AzleIfhlcwhYKHEQRCCAD8092-06-53 11:00:00 Test Item Value Reference Range Interpretation Comments Segs-Bands # (test code = Segs-Bands #) 4.9 1.5-8.1 [facility] AzleUypfefrAOCGPDIWZA7093-50-77 11:00:00 Test Item Value Reference Range Interpretation Comments Lymphocytes # (test code = Lymphocytes 2.4 1.0-5.5 #) [facility] AzleVkzjtvoUSYLUYKTOQ1919-80-52 11:00:00 Test Item Value Reference Range Interpretation Comments Eosinophils (test code = 4.1 See_Comment [A utomated message] The Eosinophils) system which ge nerated this result tra nsmitted reference range : <=4.0. The reference r celio was not used to int erpret this result as normal/abnormal . [facility] AzleJhfkamoQUXEEFZJJA0983-97-35 11:00:00 Test Item Value Reference Range Interpretation Comments Lymphocytes (test code = Lymphocytes) 29.4 20.0-40.0 [facility] AzleHkumishVXGGLQIDFN0303-54-05 11:00:00 Test Item Value Reference Range Interpretation Comments Monocytes (test code = Monocytes) 7.1 2.0-12.0 [facility]2014-04-09 11:00:00 Test Item Value Reference Range Interpretation Comments Bili Indirect (test 0.2 See_Comment [Automa blayne message] The code = Bili Indirect) system which generated this result tra nsmitted reference range : <=1.0. The reference r celio was not used to int erpret this result as normal/abnormal . [facility]2014-04-09 11:00:00 Test Item Value Reference Range Interpretation Comments Bili Total (test code = Bili Total) 0.3 0.2-1.3 [facility]2014-04-09 11:00:00 Test Item Value Reference Range Interpretation Comments Bili Direct (test code 0.1 See_Comment [Aut omated message] The = Bili Direct) system which generated this result tra nsmitted reference range : <=0.3. The reference r celio was not used to int erpret this result as dequan l/abnormal. [facility]2014-04-09 11:00:00 Test Item Value Reference Range Interpretation Comments A/G Ratio (test code = A/G Ratio) 1.0 0.7-1.6 [facility]2014-04-09 11:00:00 Test Item Value Reference Range Interpretation Comments AST (test code = AST) 38 See_Comment [Auto mated message] The system which ge nerated this result transmit blayne reference range : <=37. The reference range was not used to interpr et this result as dequan l/abnormal. [facility]2014-04-09 11:00:00 Test Item Value Reference Range Interpretation Comments Globulin (test code = Globulin) 3.3 2.0-4.0 [facility]2014-04-09 11:00:00 Test Item Value Reference Range Interpretation Comments Total Protein (test code = Total 6.7 6.4-8.4 Protein) [facility]2014-04-09 11:00:00 Test Item Value Reference Range Interpretation Comments ALT (test code = ALT) 104 See_Comment [Auto mated message] The system which ge nerated this result transmit blayne reference range : <=65. The reference range was not used to interpr et this result as dequan l/abnormal. [facility] [id number] 11:00:00 Test Item Value Reference Range Interpretation Comments Alk Phos (test code = Alk Phos) 62 39-136 [facility] LOILP1816-51-65 11:00:00 Test Item Value Reference Range Interpretation Comments Albumin Lvl (test code = Albumin Lvl) 3.4 3.5-5.0 [facility]vnwpskSYLUWQPAQUNE3920-33-90 11:00:00 Test Item Value Reference Range Interpretation Comments AGAP (test code = AGAP) 15.3 10.0-20.0 [facility]PbuumcmOKDWMZTOXNAO4745-86-82 11:00:00 Test Item Value Reference Range Interpretation Comments eGFR (test code = eGFR) 104 [facility] HospitalMwkittkUJCZITJRSPVR2624-35-97 11:00:00 Test Item Value Reference Range Interpretation Comments Chloride Lvl (test code = Chloride Lvl) 106 95-109 [facility] HospitalFnatcanJHKIRRYEXFQM9485-16-12 11:00:00 Test Item Value Reference Range Interpretation Comments CO2 (test code = CO2) 26 24-32 [facility] HospitalFkdohhrUIEZWGUKOJWF8253-91-09 11:00:00 Test Item Value Reference Range Interpretation Comments Potassium Lvl (test code = Potassium 4.3 3.5-5.1 Lvl) [facility] HospitalMoiplzrFLKWWDITDGVA9080-15-26 11:00:00 Test Item Value Reference Range Interpretation Comments Calcium Lvl (test code = Calcium Lvl) 8.9 8.5-10.5 [facility] HospitalIjeepupYUYIXGOAUZTB7003-79-78 11:00:00 Test Item Value Reference Range Interpretation Comments Glucose Lvl (test code = Glucose Lvl) 97 70-99 [facility] HospitalAijtmnhOSXMBOJXDMEW0752-90-19 11:00:00 Test Item Value Reference Range Interpretation Comments BUN (test code = BUN) 14 7-22 [facility] HospitalLadacgeAVFOKQLYNEHD9018-54-97 11:00:00 Test Item Value Reference Range Interpretation Comments Creatinine Lvl (test code = Creatinine 0.7 0.5-1.4 Lvl) [facility] HospitalNldqqzqZPYIFTLUCUUO7458-87-42 11:00:00 Test Item Value Reference Range Interpretation Comments Sodium Lvl (test code = Sodium Lvl) 143 135-145 [facility]bergRcyqonmZKTGOBKWBU0063-73-01 11:00:00 Test Item Value Reference Range Interpretation Comments MPV (test code = MPV) 8.5 7.4-10.4 [facility]bergQxddampJXUFLMWZDV7647-35-83 11:00:00 Test Item Value Reference Range Interpretation Comments Platelet (test code = Platelet) 308 133-450 [facility]2014-04-06 09:19:00 Test Item Value Reference Range Interpretation Comments eGFR (test code = eGFR) 104 [facility]2014-04-06 09:19:00 Test Item Value Reference Range Interpretation Comments Potassium Lvl (test code = Potassium 4.2 3.5-5.1 Lvl) [facility]2014-04-06 09:19:00 Test Item Value Reference Range Interpretation Comments Chloride Lvl (test code = Chloride Lvl) 104 95-109 [facility]2014-04-06 09:19:00 Test Item Value Reference Range Interpretation Comments AST (test code = AST) 47 See_Comment [Auto mated message] The system which ge nerated this result transmit blayne reference range : <=37. The reference range was not used to interpr et this result as dequan l/abnormal. [facility]2014-04-06 09:19:00 Test Item Value Reference Range Interpretation Comments Total Protein (test code = Total 7.0 6.4-8.4 Protein) [facility]2014-04-06 09:19:00 Test Item Value Reference Range Interpretation Comments Calcium Lvl (test code = Calcium Lvl) 9.6 8.5-10.5 [facility]2014-04-06 09:19:00 Test Item Value Reference Range Interpretation Comments Bili Total (test code = Bili Total) 0.3 0.2-1.3 [facility]2014-04-06 09:19:00 Test Item Value Reference Range Interpretation Comments CO2 (test code = CO2) 27 24-32 [facility]2014-04-06 09:19:00 Test Item Value Reference Range Interpretation Comments Alk Phos (test code = Alk Phos) 64 39-136 [facility]2014-04-06 09:19:00 Test Item Value Reference Range Interpretation Comments Glucose Lvl (test code = Glucose Lvl) 102 70-99 [facility]2014-04-06 09:19:00 Test Item Value Reference Range Interpretation Comments Albumin Lvl (test code = Albumin Lvl) 3.8 3.5-5.0 [facility]2014-04-06 09:19:00 Test Item Value Reference Range Interpretation Comments ALT (test code = ALT) 107 See_Comment [Auto mated message] The system which ge nerated this result transmit blayne reference range : <=65. The reference range was not used to interpr et this result as dequan l/abnormal. [facility]2014-04-06 09:19:00 Test Item Value Reference Range Interpretation Comments Creatinine Lvl (test code = Creatinine 0.7 0.5-1.4 Lvl) [facility]2014-04-06 09:19:00 Test Item Value Reference Range Interpretation Comments BUN (test code = BUN) 15 7-22 [facility]2014-04-06 09:19:00 Test Item Value Reference Range Interpretation Comments Sodium Lvl (test code = Sodium Lvl) 141 135-145 [facility]2014-04-06 09:19:00 Test Item Value Reference Range Interpretation Comments B/C Ratio (test code = B/C Ratio) 21 6-25 [facility]2014-04-06 09:19:00 Test Item Value Reference Range Interpretation Comments Globulin (test code = Globulin) 3.2 2.0-4.0 [facility]2014-04-06 09:19:00 Test Item Value Reference Range Interpretation Comments AGAP (test code = AGAP) 14.2 10.0-20.0 [facility]2014-04-06 09:19:00 Test Item Value Reference Range Interpretation Comments A/G Ratio (test code = A/G Ratio) 1.2 0.7-1.6 [facility] AzleCctkefzUPLVKGMFXW1143-93-60 09:19:00 Test Item Value Reference Range Interpretation Comments Lymphocytes # (test code = Lymphocytes 3.5 1.0-5.5 #) [facility] AzleRmiirkmLPLLORBRME6389-32-19 09:19:00 Test Item Value Reference Range Interpretation Comments Monocytes # (test code 0.7 See_Comment [Aut omated message] The = Monocytes #) system which generated this result tra nsmitted reference range : <=0.8. The reference r celio was not used to int erpret this result as normal/abnormal . [facility] AzleWnmjbneWRSXOIYBQG7808-07-58 09:19:00 Test Item Value Reference Range Interpretation Comments Segs-Bands # (test code = Segs-Bands #) 3.9 1.5-8.1 [facility] AzleYlnhcvxFHVUILSXLY6967-23-90 09:19:00 Test Item Value Reference Range Interpretation Comments Basophils (test code = 0.6 See_Comment [Aut omated message] The Basophils) system which ge nerated this result tra nsmitted reference range : <=1.0. The reference r celio was not used to int erpret this result as normal/abnormal . [facility] AzleYrjthceBAVQSMUZSF2268-67-82 09:19:00 Test Item Value Reference Range Interpretation Comments Segs (test code = Segs) 47.2 45.0-75.0 [facility] AzleYtvcygmKRUBVPMUPI9365-65-81 09:19:00 Test Item Value Reference Range Interpretation Comments Lymphocytes (test code = Lymphocytes) 41.8 20.0-40.0 [facility] AzleMbrmtqrOUIWEQRSLV1937-33-53 09:19:00 Test Item Value Reference Range Interpretation Comments Eosinophils (test code = 2.5 See_Comment [A utomated message] The Eosinophils) system which ge nerated this result tra nsmitted reference range : <=4.0. The reference r celio was not used to int erpret this result as normal/abnormal . [facility] AzleZsltjxsRWVMIXCPOQ0761-12-18 09:19:00 Test Item Value Reference Range Interpretation Comments Monocytes (test code = Monocytes) 7.9 2.0-12.0 [facility] AzleJthoscuNVETZQLZQJ4176-11-27 09:19:00 Test Item Value Reference Range Interpretation Comments Eosinophils # (test code 0.2 See_Comment [A utomated message] The = Eosinophils #) system whic h generated this result tra nsmitted reference range : <=0.5. The reference r celio was not used to int erpret this result as normal/abnormal . [facility] AzleNankyvtXEGRQFHZCN4982-55-47 09:19:00 Test Item Value Reference Range Interpretation Comments Basophils # (test code 0.1 See_Comment [Aut omated message] The = Basophils #) system which generated this result tra nsmitted reference range : <=0.2. The reference r celio was not used to int erpret this result as normal/abnormal . [facility] AzleTnqhtzjATJEDOEAPO3642-27-63 09:19:00 Test Item Value Reference Range Interpretation Comments MCHC (test code = MCHC) 34.8 32.0-36.0 [facility] AzleWbnspkzUSTNUSJAYF6488-54-43 09:19:00 Test Item Value Reference Range Interpretation Comments RDW (test code = RDW) 14.6 11.5-14.5 [facility] AzleNtxuufyOMNJQDQIIK8196-64-32 09:19:00 Test Item Value Reference Range Interpretation Comments Platelet (test code = Platelet) 296 133-450 [facility] AzleSsacyrjUYPHISXOWQ0750-04-87 09:19:00 Test Item Value Reference Range Interpretation Comments MPV (test code = MPV) 8.4 7.4-10.4 [facility] AzleMltxvgrSTMZLDORXG3381-66-23 09:19:00 Test Item Value Reference Range Interpretation Comments WBC (test code = WBC) 8.4 3.7-10.4 [facility] AzleUfrnpgxJIVYFBYMMK1773-42-60 09:19:00 Test Item Value Reference Range Interpretation Comments Hct (test code = Hct) 40.0 36.0-48.0 [facility] AzleAiremgdISTBKVRNAK1140-04-57 09:19:00 Test Item Value Reference Range Interpretation Comments Hgb (test code = Hgb) 13.9 12.0-16.0 [facility] AzleCoxcgjvYBMBRENQUL9527-45-32 09:19:00 Test Item Value Reference Range Interpretation Comments MCH (test code = MCH) 30.7 pg 27.0-31.0 [facility] AzleGlsjueoVHNGRMOSDV1889-05-83 09:19:00 Test Item Value Reference Range Interpretation Comments MCV (test code = MCV) 88.3 81.0-99.0 [facility] AzleTtffwkyQIAQCUIZZL4122-39-60 09:19:00 Test Item Value Reference Range Interpretation Comments RBC (test code = RBC) 4.53 4.20-5.40 [facility]KxeqxysISCIWSHXCOQX7801-45-71 10:29:00 Test Item Value Reference Range Interpretation Comments AGAP (test code = AGAP) 15.0 10.0-20.0 [facility] HospitalPjsncwrCGHPLZBFCTCC6329-18-83 10:29:00 Test Item Value Reference Range Interpretation Comments eGFR (test code = eGFR) 88 [facility] HospitalAtxdxywZITFDOUNBLYO3641-28-61 10:29:00 Test Item Value Reference Range Interpretation Comments Calcium Lvl (test code = Calcium Lvl) 9.2 8.5-10.5 [facility] HospitalCrblbkfYFAVJHGOLKIW0846-21-39 10:29:00 Test Item Value Reference Range Interpretation Comments Chloride Lvl (test code = Chloride Lvl) 103 95-109 [facility] HospitalGiipdiiHNZDWXKGLIOW1589-81-77 10:29:00 Test Item Value Reference Range Interpretation Comments CO2 (test code = CO2) 25 24-32 [facility] HospitalNdsqjzjNYOMSIWDOJKP3589-65-65 10:29:00 Test Item Value Reference Range Interpretation Comments Potassium Lvl (test code = Potassium 4.0 3.5-5.1 Lvl) [facility] HospitalTpttxocCHNVAROMDFCV5234-66-98 10:29:00 Test Item Value Reference Range Interpretation Comments Sodium Lvl (test code = Sodium Lvl) 139 135-145 [facility] HospitalTpgmdbzTBRCUZEEIBHH7768-58-35 10:29:00 Test Item Value Reference Range Interpretation Comments Creatinine Lvl (test code = Creatinine 0.8 0.5-1.4 Lvl) [facility] HospitalJfdteqeCDUZCKWIDKLK2274-84-45 10:29:00 Test Item Value Reference Range Interpretation Comments BUN (test code = BUN) 19 7-22 [facility] HospitalLrorkycTLXCYRPGMNVA3232-69-98 10:29:00 Test Item Value Reference Range Interpretation Comments Glucose Lvl (test code = Glucose Lvl) 87 70-99 [facility] AzleLnjxjkoSFPRBRKJCO4976-72-47 10:29:00 Test Item Value Reference Range Interpretation Comments MPV (test code = MPV) 9.0 7.4-10.4 [facility] AzleWlqnlbsPQVCJADHRQ5353-31-79 10:29:00 Test Item Value Reference Range Interpretation Comments Platelet (test code = Platelet) 299 133-450 [facility] AzleHllpgquLHAYENJZLE4598-26-12 10:29:00 Test Item Value Reference Range Interpretation Comments MCHC (test code = MCHC) 34.4 32.0-36.0 [facility] AzleFeqjkzxUVVZLDKRVE8681-99-00 10:29:00 Test Item Value Reference Range Interpretation Comments RDW (test code = RDW) 14.6 11.5-14.5 [facility] AzleKawhwfdIATLDWYHUN5935-91-00 10:29:00 Test Item Value Reference Range Interpretation Comments MCH (test code = MCH) 30.5 pg 27.0-31.0 [facility] AzleByaylfkEXQTPQZCRG1091-49-01 10:29:00 Test Item Value Reference Range Interpretation Comments RBC (test code = RBC) 4.33 4.20-5.40 [facility] AzleCihwbmlWKCIBEGTOA6056-59-80 10:29:00 Test Item Value Reference Range Interpretation Comments WBC (test code = WBC) 7.5 3.7-10.4 [facility] AzleRpzhdcwVUXHOMOSMZ6845-72-59 10:29:00 Test Item Value Reference Range Interpretation Comments MCV (test code = MCV) 88.7 81.0-99.0 [facility] AzleBiwwedbESIWPFKLNG4203-53-91 10:29:00 Test Item Value Reference Range Interpretation Comments Hgb (test code = Hgb) 13.2 12.0-16.0 [facility] AzleNbimjkfMNOZLQTTNP0630-62-78 10:29:00 Test Item Value Reference Range Interpretation Comments Hct (test code = Hct) 38.4 36.0-48.0 [facility] AzleDzdqyexEARLWSWELK3087-41-05 10:29:00 Test Item Value Reference Range Interpretation Comments Monocytes (test code = Monocytes) 6.0 2.0-12.0 [facility] AzleAnmzqbwYQBBRSZTHS4919-86-04 10:29:00 Test Item Value Reference Range Interpretation Comments Eosinophils (test code = 2.2 See_Comment [A utomated message] The Eosinophils) system which ge nerated this result tra nsmitted reference range : <=4.0. The reference r celio was not used to int erpret this result as normal/abnormal . [facility] AzleFjphrnpMLBIDEGHHT3004-74-24 10:29:00 Test Item Value Reference Range Interpretation Comments Eosinophils # (test code 0.2 See_Comment [A utomated message] The = Eosinophils #) system whic h generated this result tra nsmitted reference range : <=0.5. The reference r celio was not used to int erpret this result as normal/abnormal . [facility] AzleNwqwttyCOKCGOMRLY8958-38-95 10:29:00 Test Item Value Reference Range Interpretation Comments Lymphocytes (test code = Lymphocytes) 45.2 20.0-40.0 [facility] AzleRpxvbhgTLTRBVBWAH8157-15-65 10:29:00 Test Item Value Reference Range Interpretation Comments Monocytes # (test code 0.4 See_Comment [Aut omated message] The = Monocytes #) system which generated this result tra nsmitted reference range : <=0.8. The reference r celio was not used to int erpret this result as normal/abnormal . [facility] AzleVwahnxbOSWHISLMTR9433-85-81 10:29:00 Test Item Value Reference Range Interpretation Comments Lymphocytes # (test code = Lymphocytes 3.4 1.0-5.5 #) [facility] AzleJetsrrgNMHXUSQBWK2204-79-51 10:29:00 Test Item Value Reference Range Interpretation Comments Basophils (test code = 0.5 See_Comment [Aut omated message] The Basophils) system which ge nerated this result tra nsmitted reference range : <=1.0. The reference r celio was not used to int erpret this result as normal/abnormal . [facility] AzleQlckyxxZWTHIVOXKC9702-60-90 10:29:00 Test Item Value Reference Range Interpretation Comments Segs-Bands # (test code = Segs-Bands #) 3.4 1.5-8.1 [facility] AzleVppaukqNCSRABTPVQ3113-09-53 10:29:00 Test Item Value Reference Range Interpretation Comments Segs (test code = Segs) 46.1 45.0-75.0 [facility]2014-03-26 10:30:04 Test Item Value Reference Range Interpretation Comments Globulin (test code = Globulin) 3.3 2.0-4.0 [facility]2014-03-26 10:30:04 Test Item Value Reference Range Interpretation Comments A/G Ratio (test code = A/G Ratio) 1.1 0.7-1.6 [facility]2014-03-26 10:30:04 Test Item Value Reference Range Interpretation Comments ASPARTATE TRANSAMINASE 69 See_Comment [Aut omated message] (test code = ASPARTATE The s ystem which TRANSAMINASE) generated this result transmitted ref erence range: <=37. Th e reference range was not used to interpr et this result as normal/abnormal . [facility]2014-03-26 10:30:04 Test Item Value Reference Range Interpretation Comments Bili Indirect (test 0.2 See_Comment [Automa blayne message] The code = Bili Indirect) system which generated this result tra nsmitted reference range : <=1.0. The reference r celio was not used to int erpret this result as normal/abnormal . [facility]2014-03-26 10:30:04 Test Item Value Reference Range Interpretation Comments Bili Total (test code = Bili Total) 0.3 0.2-1.3 [facility]2014-03-26 10:30:04 Test Item Value Reference Range Interpretation Comments Total Protein (test code = Total 6.8 6.4-8.4 Protein) [facility]2014-03-26 10:30:04 Test Item Value Reference Range Interpretation Comments Alk Phos (test code = Alk Phos) 66 39-136 [place] 109914-03-26 10:30:04 Test Item Value Reference Range Interpretation Comments Bili Direct (test code 0.1 See_Comment [Aut omated message] The = Bili Direct) system which generated this result tra nsmitted reference range : <=0.3. The reference r celio was not used to int erpret this result as dequan l/abnormal. [facility]2014-03-26 10:30:04 Test Item Value Reference Range Interpretation Comments ALANINE AMINOTRANSFERASE 125 See_Comment [A utomated message] (test code = ALANINE The sys tem which AMINOTRANSFERASE) generated this result transmitted ref erence range: <=65. Th e reference range was not used to int erpret this result as normal/abnormal . [facility]2014-03-26 10:30:04 Test Item Value Reference Range Interpretation Comments Albumin Lvl (test code = Albumin Lvl) 3.5 3.5-5.0 [facility]2014-03-24 10:03:00 Test Item Value Reference Range Interpretation Comments Magnesium Lvl (test code = Magnesium 1.5 1.8-2.4 Lvl) [facility]2014-03-24 10:03:00 Test Item Value Reference Range Interpretation Comments Phosphorus (test code = Phosphorus) 4.4 2.5-4.5 [facility]:03:00 Test Item Value Reference Range Interpretation Comments VLDL (test code = VLDL) 38 [facility] CenterOqfmfbdCMSCFG5128-52-81 10:03:00 Test Item Value Reference Range Interpretation Comments LDL (Calculated) (test code = LDL 121 (Calculated)) [place] 023544-03-24 10:03:00 Test Item Value Reference Range Interpretation Comments Chol (test code = Chol) 208 [facility] CenterEqmfaluJYSAUH0119-06-61 10:03:00 Test Item Value Reference Range Interpretation Comments Trig (test code = Trig) 191 [facility] CenterYvnyngqEMTXQI8640-47-84 10:03:00 Test Item Value Reference Range Interpretation Comments HDL (test code = HDL) 49 [facility] CenterRpodnbhGMYAJP2955-78-85 10:03:00 Test Item Value Reference Range Interpretation Comments CHD Risk (test code = CHD Risk) 4.24 3.90-5.80 [facility]2014-03-21 11:00:00 Test Item Value Reference Range Interpretation Comments Bili Indirect (test 0.2 See_Comment [Automa blayne message] The code = Bili Indirect) system which generated this result tra nsmitted reference range : <=1.0. The reference r celio was not used to int erpret this result as normal/abnormal . [facility]2014-03-21 11:00:00 Test Item Value Reference Range Interpretation Comments Bili Direct (test code 0.1 See_Comment [Aut omated message] The = Bili Direct) system which generated this result tra nsmitted reference range : <=0.3. The reference r celio was not used to int erpret this result as dequan l/abnormal. [facility]2014-03-17 06:57:53 Test Item Value Reference Range Interpretation Comments B/C Ratio (test code = B/C Ratio) 12 6-25 [facility]2014-03-14 11:45:00 Test Item Value Reference Range Interpretation Comments Vitamin B12 Lvl (test code = Vitamin 752 [id number] B12 Lvl) [facility]2014-03-14 11:45:00 Test Item Value Reference Range Interpretation Comments Folate Lvl (test code = Folate Lvl) 17.6 [facility]2014-03-14 11:45:00 Test Item Value Reference Range Interpretation Comments Magnesium Lvl (test code = Magnesium 2.0 1.8-2.4 Lvl) [facility]2014-03-14 11:45:00 Test Item Value Reference Range Interpretation Comments VITAMIN B1 (THIAMINE) WHOLE BLOOD (test 71 78-185 code = VITAMIN B1 (THIAMINE) WHOLE BLOOD) [facility] PharmaEC[facility] BERTIE HOSPITALXFXNX4394-86-47 10:05:00 Test Item Value Reference Range Interpretation Comments Amylase Lvl (test code = Amylase Lvl) 46 25-115 [facility]2014 10:05:00 Test Item Value Reference Range Interpretation Comments Lipase Lvl (test code = Lipase Lvl) 152 73-393 [facility]XnoelqvBQMBCCDGAP8534-18-57 19:46:00 Test Item Value Reference Range Interpretation Comments aPTT (test code = aPTT) 30.8 s 22.9-35.8 [facility]bergCARDIAC WHJYFIP4413-38-68 10:25:00 Test Item Value Reference Range Interpretation Comments Total CK (test code = Total CK) 58 12-191 [facility]woodCardi[facility] PharmaEC[facility] BERTIE HOSPITALZWKPL2709-26-48 10:25:00 Test Item Value Reference Range Interpretation Comments Calcium Lvl (test code = Calcium Lvl) 9.4 8.5-10.5 [facility]woodCardi[facility] PharmaECU [facility] BERTIE HOSPITALDXSEJ1252-00-37 10:25:00 Test Item Value Reference Range Interpretation Comments Magnesium Lvl (test code = Magnesium 1.9 1.8-2.4 Lvl) [facility]2014-03-10 10:25:00 Test Item Value Reference Range Interpretation Comments Phosphorus (test code = Phosphorus) 5.0 2.5-4.5 [facility]2014-03-10 10:25:00 Test Item Value Reference Range Interpretation Comments A/G Ratio (test code = A/G Ratio) 1.3 0.7-1.6 [facility]2014-03-10 10:25:00 Test Item Value Reference Range Interpretation Comments Globulin (test code = Globulin) 2.9 2.0-4.0 [facility]2014-03-10 10:25:00 Test Item Value Reference Range Interpretation Comments Bili Indirect (test 0.3 See_Comment [Automa blayne message] The code = Bili Indirect) system which generated this result tra nsmitted reference range : <=1.0. The reference r celio was not used to int erpret this result as normal/abnormal . [facility] BrownwoodTechfoo RRQAN4795-03-41 10:25:00 Test Item Value Reference Range Interpretation Comments Alk Phos (test code = Alk Phos) 97 39-136 [facility]2014-03-10 10:25:00 Test Item Value Reference Range Interpretation Comments Total Protein (test code = Total 6.6 6.4-8.4 Protein) [facility]2014-03-10 10:25:00 Test Item Value Reference Range Interpretation Comments Bili Direct (test code 0.1 See_Comment [Aut omated message] The = Bili Direct) system which generated this result tra nsmitted reference range : <=0.3. The reference r celio was not used to int erpret this result as dequan l/abnormal. [facility]2014-03-10 10:25:00 Test Item Value Reference Range Interpretation Comments ALANINE AMINOTRANSFERASE 116 See_Comment [A utomated message] (test code = ALANINE The sys tem which AMINOTRANSFERASE) generated this result transmitted ref erence range: <=65. Th e reference range was not used to int erpret this result as normal/abnormal . [facility]2014-03-10 10:25:00 Test Item Value Reference Range Interpretation Comments Albumin Lvl (test code = Albumin Lvl) 3.7 3.5-5.0 [facility]2014-03-10 10:25:00 Test Item Value Reference Range Interpretation Comments Bili Total (test code = Bili Total) 0.4 0.2-1.3 [facility]2014-03-10 10:25:00 Test Item Value Reference Range Interpretation Comments ASPARTATE TRANSAMINASE 63 See_Comment [Aut omated message] (test code = ASPARTATE The s ystem which TRANSAMINASE) generated this result transmitted ref erence range: <=37. Th e reference range was not used to interpr et this result as normal/abnormal . [facility]uagnedWVRTLZJNPBXC1528-54-96 10:25:00 Test Item Value Reference Range Interpretation Comments AGAP (test code = AGAP) 14.1 10.0-20.0 [facility] HospitalYwweafyGCGUAULKRYHU7676-46-20 10:25:00 Test Item Value Reference Range Interpretation Comments eGFR (test code = eGFR) 104 [facility] HospitalZugjvgpZZKAQZMHHDTO4812-73-93 10:25:00 Test Item Value Reference Range Interpretation Comments Creatinine Lvl (test code = Creatinine 0.7 0.5-1.4 Lvl) [facility] HospitalOrzmawbOKCYPDYOBFOF1495-05-67 10:25:00 Test Item Value Reference Range Interpretation Comments BUN (test code = BUN) 13 7-22 [facility] HospitalSrntpmwLCNWOYRCGCIU3550-47-54 10:25:00 Test Item Value Reference Range Interpretation Comments Glucose Lvl (test code = Glucose Lvl) 101 70-99 [facility] HospitalDtpgntpIUXBVGSUVQXB9761-99-04 10:25:00 Test Item Value Reference Range Interpretation Comments Sodium Lvl (test code = Sodium Lvl) 141 135-145 [facility] HospitalUxfukogBYLHZCIVPHSR5971-48-02 10:25:00 Test Item Value Reference Range Interpretation Comments Calcium Lvl (test code = Calcium Lvl) 9.4 8.5-10.5 [facility] HospitalXcmigflFDDMYVGVUJZM6998-98-79 10:25:00 Test Item Value Reference Range Interpretation Comments Chloride Lvl (test code = Chloride Lvl) 105 95-109 [facility] HospitalDaapcjqGEOPKKDDAWOZ1962-04-53 10:25:00 Test Item Value Reference Range Interpretation Comments CO2 (test code = CO2) 26 24-32 [facility] HospitalEskvitlNGUQBHZVGMKF9525-43-00 10:25:00 Test Item Value Reference Range Interpretation Comments Potassium Lvl (test code = Potassium 4.1 3.5-5.1 Lvl) [facility]leDxzluwhWOWMYBZMWL4254-31-50 10:25:00 Test Item Value Reference Range Interpretation Comments MCV (test code = MCV) 89.0 81.0-99.0 [facility] AzleVglpalsTVHVIKOYQA1966 10:25:00 Test Item Value Reference Range Interpretation Comments Hct (test code = Hct) 43.6 36.0-48.0 [facility] AzleCzpiekuSVCLFTYYKR8891-49-16 10:25:00 Test Item Value Reference Range Interpretation Comments MPV (test code = MPV) 8.5 7.4-10.4 [facility] AzleCosvqdxMMMRLFFHOL4515-84-48 10:25:00 Test Item Value Reference Range Interpretation Comments Platelet (test code = Platelet) 291 133-450 [facility] AzleHccmzanUAXFDXUOFE8100-54-41 10:25:00 Test Item Value Reference Range Interpretation Comments RDW (test code = RDW) 13.8 11.5-14.5 [facility] AzleSearubuOROSMVHJDO4345-25-50 10:25:00 Test Item Value Reference Range Interpretation Comments MCHC (test code = MCHC) 34.7 32.0-36.0 [facility] AzleVctksozWPRUNHTEKR5984-28-64 10:25:00 Test Item Value Reference Range Interpretation Comments MCH (test code = MCH) 30.9 pg 27.0-31.0 [facility] AzleIsnedmvCJEBMNYMXG2251-14-09 10:25:00 Test Item Value Reference Range Interpretation Comments RBC X 10x6 (test code = RBC X 10x6) 4.90 4.20-5.40 [facility] AzleOllhvehVXIQMTSEKK0321-92-73 10:25:00 Test Item Value Reference Range Interpretation Comments WBC X 10x3 (test code = WBC X 10x3) 7.6 3.7-10.4 [facility] AzleWndupmkXGSYOOYHRC7178-67-12 10:25:00 Test Item Value Reference Range Interpretation Comments Hgb (test code = Hgb) 15.1 12.0-16.0 [facility] AzleEnfbsalCMPBFVIEOU7930-03-54 10:25:00 Test Item Value Reference Range Interpretation Comments Eosinophils # (test code 0.3 See_Comment [A utomated message] The = Eosinophils #) system whic h generated this result tra nsmitted reference range : <=0.5. The reference r celio was not used to int erpret this result as normal/abnormal . [facility] AzleIflzaowXDHYFVABUJ7852-40-04 10:25:00 Test Item Value Reference Range Interpretation Comments Lymphocytes # (test code = Lymphocytes 3.3 1.0-5.5 #) [facility] AzleZfxcesjVSVTPWCHTC5509-63-85 10:25:00 Test Item Value Reference Range Interpretation Comments Monocytes # (test code 0.6 See_Comment [Aut omated message] The = Monocytes #) system which generated this result tra nsmitted reference range : <=0.8. The reference r celio was not used to int erpret this result as normal/abnormal . [facility] AzleJulxqzmXJQIZDIJBK4405-39-71 10:25:00 Test Item Value Reference Range Interpretation Comments Segs-Bands # (test code = Segs-Bands #) 3.4 1.5-8.1 [facility] AzleTrprthfZQPRTDSJVY8447-90-06 10:25:00 Test Item Value Reference Range Interpretation Comments Basophils (test code = 0.5 See_Comment [Aut omated message] The Basophils) system which ge nerated this result tra nsmitted reference range : <=1.0. The reference r celio was not used to int erpret this result as normal/abnormal . [facility] AzleBcpwyjlVGYTIPJZXE8687-23-99 10:25:00 Test Item Value Reference Range Interpretation Comments Segs (test code = Segs) 45.3 45.0-75.0 [facility] AzleEdvrueoKVNMEVPKXI6292-96-06 10:25:00 Test Item Value Reference Range Interpretation Comments Monocytes (test code = Monocytes) 7.9 2.0-12.0 [facility] AzleOlaxjjzOSRZWGPRLN1177-81-85 10:25:00 Test Item Value Reference Range Interpretation Comments Eosinophils (test code = 3.4 See_Comment [A utomated message] The Eosinophils) system which ge nerated this result tra nsmitted reference range : <=4.0. The reference r celio was not used to int erpret this result as normal/abnormal . [facility] AzleOdhuylgBBFOKJYSFE1226-73-38 10:25:00 Test Item Value Reference Range Interpretation Comments Lymphocytes (test code = Lymphocytes) 42.9 20.0-40.0 [facility]2014-03-09 13:26:07 Test Item Value Reference Range Interpretation Comments UA Urobilinogen (test code = UA <=1.0 mg/dL 0.1-1.0 Urobilinogen) [facility]2014-03-09 13:26:07 Test Item Value Reference Range Interpretation Comments UA WBC (test code = no gt See_Comment [Automa blayne message] The UA WBC) system which ge nerated this result transmit blayne reference range : <=5. The reference range was not used to interpr et this result as dequan l/abnormal. [facility]2014-03-09 13:26:07 Test Item Value Reference Range Interpretation Comments UA RBC (test code = 2 See_Comment [Automa blayne message] The UA RBC) system which ge nerated this result transmit blayne reference range : <=2. The reference range was not used to interpr et this result as dequan l/abnormal. [facility]2014-03-09 13:26:07 Test Item Value Reference Range Interpretation Comments UA Sq Epi (test code = UA Sq Epi) Many /LPF [facility]2014-03-09 13:26:07 Test Item Value Reference Range Interpretation Comments UA Mucus (test code = UA Mucus) Many /LPF [facility] [id number] 13:26:07 Test Item Value Reference Range Interpretation Comments UA Bacteria (test code = UA Few /HPF Bacteria) [facility] KJQNG2812-40-26 13:26:07 Test Item Value Reference Range Interpretation Comments UA Amorph Valeria (test code = UA Moderate /HPF Amorph Valeria) [facility] AND [id number] 13:26:07 Test Item Value Reference Range Interpretation Comments UA Leuk Est (test code Large *ABN*(11/29/2013 = UA Leuk Est) 08:26:07 [place]) [facility] AND [id number] 13:26:07 Test Item Value Reference Range Interpretation Comments UA Blood (test code = Trace *ABN*(11/29/2013 UA Blood) 08:26:07 [place]) [facility] AND [id number] 13:26:07 Test Item Value Reference Range Interpretation Comments UA Nitrite (test code Negative (11/29/2013 = UA Nitrite) 08:26:07 [place]) [facility] AND [id number] 13:26:07 Test Item Value Reference Range Interpretation Comments UA Protein (test code = UA Protein) 30 mg/dL [facility] AND [id number] 13:26:07 Test Item Value Reference Range Interpretation Comments UA pH (test code = UA pH) 6.5 5.0-8.0 [facility] AND [id number] 13:26:07 Test Item Value Reference Range Interpretation Comments UA Glucose (test code = UA Negative mg/dL Glucose) [facility] AND [id number] 13:26:07 Test Item Value Reference Range Interpretation Comments UA Bili (test code = Negative *NA*(11/29/2013 UA Bili) 08:26:07 [place]) [facility] AND [id number] 13:26:07 Test Item Value Reference Range Interpretation Comments UA Ketones (test code = UA Negative mg/dL Ketones) [facility] AND [id number] 13:26:07 Test Item Value Reference Range Interpretation Comments UA Color (test code = Yellow *NA*(11/29/2013 UA Color) 08:26:07 [place]) [facility] AND [id number] 13:26:07 Test Item Value Reference Range Interpretation Comments UA Turbidity (test code Marked = UA Turbidity) *ABN*(11/29/2013 08:26:07 [facility]/[place]) [facility] AND [id number] 13:26:07 Test Item Value Reference Range Interpretation Comments UA Spec Grav (test code = UA Spec Grav) 1.014 [facility]2014-03-09 11:31:57 Test Item Value Reference Range Interpretation Comments eGFR (test code = eGFR) 104 [facility]2014-03-09 11:31:57 Test Item Value Reference Range Interpretation Comments Calcium Lvl (test code = Calcium Lvl) 9.4 8.5-10.5 [facility]2014-03-09 11:31:57 Test Item Value Reference Range Interpretation Comments Chloride Lvl (test code = Chloride Lvl) 108 95-109 [facility]2014-03-09 11:31:57 Test Item Value Reference Range Interpretation Comments CO2 (test code = CO2) 23 24-32 [facility]2014-03-09 11:31:57 Test Item Value Reference Range Interpretation Comments AGAP (test code = AGAP) 17.2 10.0-20.0 [facility]2014-03-09 11:31:57 Test Item Value Reference Range Interpretation Comments Sodium Lvl (test code = Sodium Lvl) 144 135-145 [facility]2014-03-09 11:31:57 Test Item Value Reference Range Interpretation Comments Potassium Lvl (test code = Potassium 4.2 3.5-5.1 Lvl) [facility]2014-03-09 11:31:57 Test Item Value Reference Range Interpretation Comments Glucose Lvl (test code = Glucose Lvl) 139 70-99 [facility]2014-03-09 11:31:57 Test Item Value Reference Range Interpretation Comments BUN (test code = BUN) 10 7-22 [facility]2014-03-09 11:31:57 Test Item Value Reference Range Interpretation Comments Creatinine Lvl (test code = Creatinine 0.7 0.5-1.4 Lvl) [facility]2014-03-09 11:31:57 Test Item Value Reference Range Interpretation Comments Magnesium Lvl (test code = Magnesium 1.9 1.8-2.4 Lvl) [facility]2014-03-08 09:24:00 Test Item Value Reference Range Interpretation Comments Phosphorus (test code = Phosphorus) 4.1 2.5-4.5 [facility]2014-03-08 09:24:00 Test Item Value Reference Range Interpretation Comments Magnesium Lvl (test code = Magnesium 1.9 1.8-2.4 Lvl) [facility]xzhzjGXTQTTJFVABT6001-57-78 09:24:00 Test Item Value Reference Range Interpretation Comments AGAP (test code = AGAP) 14.7 10.0-20.0 [facility] HospitalQkigjakNRQATZWAXQBL4254-00-83 09:24:00 Test Item Value Reference Range Interpretation Comments eGFR (test code = eGFR) 104 [facility] HospitalWlvwkycYIDNKBJVALWU6525-62-52 09:24:00 Test Item Value Reference Range Interpretation Comments Chloride Lvl (test code = Chloride Lvl) 106 95-109 [facility] HospitalRyzuvdzGLDQJPAKULDH3308-32-56 09:24:00 Test Item Value Reference Range Interpretation Comments CO2 (test code = CO2) 25 24-32 [facility] HospitalBtoqfduZZQNUZHGEUZJ5131-74-26 09:24:00 Test Item Value Reference Range Interpretation Comments Potassium Lvl (test code = Potassium 3.7 3.5-5.1 Lvl) [facility] HospitalEefdpaeFWFFVELQLSOK4898-86-24 09:24:00 Test Item Value Reference Range Interpretation Comments Sodium Lvl (test code = Sodium Lvl) 142 135-145 [facility] HospitalAogkvpoXOYSYOPRZKZR8036-03-10 09:24:00 Test Item Value Reference Range Interpretation Comments Glucose Lvl (test code = Glucose Lvl) 142 70-99 [facility] HospitalYvqnbwoOAXOYELZXUAB0599-47-16 09:24:00 Test Item Value Reference Range Interpretation Comments Creatinine Lvl (test code = Creatinine 0.7 0.5-1.4 Lvl) [facility] HospitalLdvlumvZYZSGMDYFXOW7001-67-69 09:24:00 Test Item Value Reference Range Interpretation Comments BUN (test code = BUN) 9 7-22 [facility]OUEFDYGRGB5803-38-54 09:24:00 Test Item Value Reference Range Interpretation Comments Lymphocytes # (test code = Lymphocytes 3.0 1.0-5.5 #) [facility] AzleHyumciuCLYNZPIRNO2550-98-63 09:24:00 Test Item Value Reference Range Interpretation Comments Eosinophils (test code = 2.7 See_Comment [A utomated message] The Eosinophils) system which ge nerated this result tra nsmitted reference range : <=4.0. The reference r celio was not used to int erpret this result as normal/abnormal . [facility] AzleAcckgrvFBELQRVKVW8160-77-83 09:24:00 Test Item Value Reference Range Interpretation Comments Basophils (test code = 0.5 See_Comment [Aut omated message] The Basophils) system which ge nerated this result tra nsmitted reference range : <=1.0. The reference r celio was not used to int erpret this result as normal/abnormal . [facility] AzleXocnjwnJIJZDPWJDQ4413-33-25 09:24:00 Test Item Value Reference Range Interpretation Comments Eosinophils # (test code 0.2 See_Comment [A utomated message] The = Eosinophils #) system whic h generated this result tra nsmitted reference range : <=0.5. The reference r celio was not used to int erpret this result as normal/abnormal . [facility] AzleWdalowbFLKLEVZXTN8183-34-86 09:24:00 Test Item Value Reference Range Interpretation Comments Monocytes # (test code 0.6 See_Comment [Aut omated message] The = Monocytes #) system which generated this result tra nsmitted reference range : <=0.8. The reference r celio was not used to int erpret this result as normal/abnormal . [facility] AzleXmweufoAXKTVHLOTY4227-05-61 09:24:00 Test Item Value Reference Range Interpretation Comments Segs-Bands # (test code = Segs-Bands #) 4.1 1.5-8.1 [facility] AzleZbqdtwxTIXFTRCTWL6758-42-62 09:24:00 Test Item Value Reference Range Interpretation Comments Lymphocytes (test code = Lymphocytes) 37.9 20.0-40.0 [facility] AzleMlswmciEYFNNXEELZ7814-89-76 09:24:00 Test Item Value Reference Range Interpretation Comments Monocytes (test code = Monocytes) 6.9 2.0-12.0 [facility] AzleBukmwmtLFDSXVEICT6486-86-14 09:24:00 Test Item Value Reference Range Interpretation Comments Segs (test code = Segs) 52.0 45.0-75.0 [facility] AzleFfezjizBFZAFXUZJL5049-63-41 09:24:00 Test Item Value Reference Range Interpretation Comments MPV (test code = MPV) 8.5 7.4-10.4 [facility] AzleNuyfipaRQIAVJFWWJ2031-71-72 09:24:00 Test Item Value Reference Range Interpretation Comments Platelet (test code = Platelet) 275 133-450 [facility] AzleXkdmfrlVZHENBOQJV0079-35-25 09:24:00 Test Item Value Reference Range Interpretation Comments RBC X 10x6 (test code = RBC X 10x6) 4.93 4.20-5.40 [facility] AzleOnxkqnqFMHGXSPNVN5546-63-95 09:24:00 Test Item Value Reference Range Interpretation Comments WBC X 10x3 (test code = WBC X 10x3) 8.0 3.7-10.4 [facility] AzleDyxogeaBLXOXBZGME1494-42-75 09:24:00 Test Item Value Reference Range Interpretation Comments MCV (test code = MCV) 88.7 81.0-99.0 [facility] AzleNpjpqdrYLRLDGTXRB5909-11-91 09:24:00 Test Item Value Reference Range Interpretation Comments Hgb (test code = Hgb) 15.0 12.0-16.0 [facility] AzleUghdqgyOGBMOWDBWQ1767-09-05 09:24:00 Test Item Value Reference Range Interpretation Comments Hct (test code = Hct) 43.7 36.0-48.0 [facility] AzleYihsaexDGTSXZUWEX8985-96-19 09:24:00 Test Item Value Reference Range Interpretation Comments MCH (test code = MCH) 30.4 pg 27.0-31.0 [facility] AzleDznfnetDSBVPIBBYB4840-22-78 09:24:00 Test Item Value Reference Range Interpretation Comments MCHC (test code = MCHC) 34.3 32.0-36.0 [facility] AzleHbxtnkdLNSUTMKYZI1318-56-33 09:24:00 Test Item Value Reference Range Interpretation Comments RDW (test code = RDW) 14.0 11.5-14.5 [facility] [id number] 07:23:00 Test Item Value Reference Range Interpretation Comments Globulin (test code = Globulin) 3.2 2.0-4.0 [facility] [id number] 07:23:00 Test Item Value Reference Range Interpretation Comments A/G Ratio (test code = A/G Ratio) 1.2 0.7-1.6 [facility]2014-03-07 07:23:00 Test Item Value Reference Range Interpretation Comments Alk Phos (test code = Alk Phos) 112 39-136 [facility]2014-03-07 07:23:00 Test Item Value Reference Range Interpretation Comments Albumin Lvl (test code = Albumin Lvl) 3.9 3.5-5.0 [facility]2014-03-07 07:23:00 Test Item Value Reference Range Interpretation Comments ALANINE AMINOTRANSFERASE 184 See_Comment [A utomated message] (test code = ALANINE The sys tem which AMINOTRANSFERASE) generated this result transmitted ref erence range: <=65. Th e reference range was not used to int erpret this result as normal/abnormal . [place] 109914-03-07 07:23:00 Test Item Value Reference Range Interpretation Comments Total Protein (test code = Total 7.1 6.4-8.4 Protein) [facility]2014-03-07 07:23:00 Test Item Value Reference Range Interpretation Comments ASPARTATE TRANSAMINASE 76 See_Comment [Aut omated message] (test code = ASPARTATE The s ystem which TRANSAMINASE) generated this result transmitted ref erence range: <=37. Th e reference range was not used to interpr et this result as normal/abnormal . [facility]2014-03-07 07:23:00 Test Item Value Reference Range Interpretation Comments Bili Total (test code = Bili Total) 0.3 0.2-1.3 [place] 109914-03-07 07:23:00 Test Item Value Reference Range Interpretation Comments Bili Indirect (test 0.2 See_Comment [Automa blayne message] The code = Bili Indirect) system which generated this result tra nsmitted reference range : <=1.0. The reference r celio was not used to int erpret this result as normal/abnormal . [facility]2014-03-07 07:23:00 Test Item Value Reference Range Interpretation Comments Bili Direct (test code 0.1 See_Comment [Aut omated message] The = Bili Direct) system which generated this result tra nsmitted reference range : <=0.3. The reference r celio was not used to int erpret this result as dequan l/abnormal. [facility]2014-03-07 07:23:00 Test Item Value Reference Range Interpretation Comments Phosphorus (test code = Phosphorus) 4.6 2.5-4.5 [facility] AzleJkaeuwxEHAERQBTHS4451-20-29 07:23:00 Test Item Value Reference Range Interpretation Comments Eosinophils (test code = 1.7 See_Comment [A utomated message] The Eosinophils) system which ge nerated this result tra nsmitted reference range : <=4.0. The reference r celio was not used to int erpret this result as normal/abnormal . [facility] AzleLjtmrfdXCUKUXGTON7809-53-46 07:23:00 Test Item Value Reference Range Interpretation Comments Basophils (test code = 0.7 See_Comment [Aut omated message] The Basophils) system which ge nerated this result tra nsmitted reference range : <=1.0. The reference r celio was not used to int erpret this result as normal/abnormal . [facility] AzleJlmptivERDOEUDSEW1548-22-03 07:23:00 Test Item Value Reference Range Interpretation Comments Lymphocytes # (test code = Lymphocytes 3.2 1.0-5.5 #) [facility] AzleEydjepbHOAWWMPSTR8634-13-74 07:23:00 Test Item Value Reference Range Interpretation Comments Monocytes # (test code 0.6 See_Comment [Aut omated message] The = Monocytes #) system which generated this result tra nsmitted reference range : <=0.8. The reference r celio was not used to int erpret this result as normal/abnormal . [facility] AzleSdfzfnsUTGTVMVWSN4053-30-43 07:23:00 Test Item Value Reference Range Interpretation Comments Eosinophils # (test code 0.1 See_Comment [A utomated message] The = Eosinophils #) system whic h generated this result tra nsmitted reference range : <=0.5. The reference r celio was not used to int erpret this result as normal/abnormal . [facility] AzleTnqmgydEMUIKNNCUD4211-12-51 07:23:00 Test Item Value Reference Range Interpretation Comments Basophils # (test code 0.1 See_Comment [Aut omated message] The = Basophils #) system which generated this result tra nsmitted reference range : <=0.2. The reference r celio was not used to int erpret this result as normal/abnormal . [place] [address]-03-07 07:23:00 Test Item Value Reference Range Interpretation Comments Segs-Bands # (test code = Segs-Bands #) 4.2 1.5-8.1 [facility] AzleOoidfxnVFBLEMBRMV8971-04-21 07:23:00 Test Item Value Reference Range Interpretation Comments Lymphocytes (test code = Lymphocytes) 39.4 20.0-40.0 [facility] AzleAptmujbASMOVBDKGV2048-52-12 07:23:00 Test Item Value Reference Range Interpretation Comments Monocytes (test code = Monocytes) 6.9 2.0-12.0 [facility] AzleJddovoiCXHBWMHCJX0009-11-08 07:23:00 Test Item Value Reference Range Interpretation Comments Segs (test code = Segs) 51.3 45.0-75.0 [facility] AzleQojcdxuKEATJQGGLN4599-43-30 07:23:00 Test Item Value Reference Range Interpretation Comments MCV (test code = MCV) 88.1 81.0-99.0 [facility] AzleQyvbampQXNYEHWEVO9315-23-28 07:23:00 Test Item Value Reference Range Interpretation Comments MCH (test code = MCH) 30.2 pg 27.0-31.0 [facility] AzleCnqxmbuAGVERURYEO0981-90-58 07:23:00 Test Item Value Reference Range Interpretation Comments MCHC (test code = MCHC) 34.3 32.0-36.0 [facility] AzleRiujiipXQJHYRZBKS0435-16-37 07:23:00 Test Item Value Reference Range Interpretation Comments RDW (test code = RDW) 13.7 11.5-14.5 [facility] AzleQqxksurKCDZJDFDCN7354-13-08 07:23:00 Test Item Value Reference Range Interpretation Comments Platelet (test code = Platelet) 303 133-450 [facility] AzleSsovaanEZVKWHLTEA7069-11-55 07:23:00 Test Item Value Reference Range Interpretation Comments MPV (test code = MPV) 8.6 7.4-10.4 [facility] AzleZqxyzmfMHLYSYJZRK3567-37-05 07:23:00 Test Item Value Reference Range Interpretation Comments WBC X 10x3 (test code = WBC X 10x3) 8.2 3.7-10.4 [facility] AzleDfoytcmSYBWUEPBTH3167-03-00 07:23:00 Test Item Value Reference Range Interpretation Comments RBC X 10x6 (test code = RBC X 10x6) 4.79 4.20-5.40 [facility] AzleWbpltxoDZSRMNYNSW4793-85-25 07:23:00 Test Item Value Reference Range Interpretation Comments Hgb (test code = Hgb) 14.5 12.0-16.0 [facility] AzleDnvlgbjRPGURTMONP3233-32-07 07:23:00 Test Item Value Reference Range Interpretation Comments Hct (test code = Hct) 42.2 36.0-48.0 [facility] AzleZxcrwmsWFPZFXIADW3585-91-23 07:23:00 Test Item Value Reference Range Interpretation Comments INR (test code = INR) 1.04 0.85-1.17 [facility] AzleGqmbagcCZECYRSFOY4957-53-78 07:23:00 Test Item Value Reference Range Interpretation Comments aPTT (test code = aPTT) 30.3 s 22.9-35.8 [facility] AzleKcqtctiIHDTBYMPHE2837-90-92 07:23:00 Test Item Value Reference Range Interpretation Comments PROTIME (test code = PROTIME) 13.5 s 12.0-14.7 [facility] CampusAyopkoaIPOLLJQJPD3974-59-25 07:23:00 Test Item Value Reference Range Interpretation Comments Hep B Core IgM (test Negative *NA*(11/27/2013 code = Hep B Core 01:23:00 IgM) [facility]) [facility] CampusBaqpllqOYSSTQRSJT3343-41-47 07:23:00 Test Item Value Reference Range Interpretation Comments Hep C Ab (test code = Negative *NA*(11/27/2013 Hep C Ab) 01:23:00 [facility] CampusLiliqoeVGJDAYOOUE1880-61-82 07:23:00 Test Item Value Reference Range Interpretation Comments Hep A IgM (test code Negative *NA*(11/27/2013 = Hep A IgM) 01:23:00 [facility]) [facility] CampusMiyrnpdISOQLHMIDB0739-94-88 07:23:00 Test Item Value Reference Range Interpretation Comments Hep Bs Ag (test code Negative *NA*(11/27/2013 = Hep Bs Ag) 01:23:00 [facility] 07:23:00 Test Item Value Reference Range Interpretation Comments VLDL (test code = VLDL) 27 [facility] CenterBsnxwicVDPGQI4516-66-38 07:23:00 Test Item Value Reference Range Interpretation Comments LDL (Calculated) (test code = LDL 127 (Calculated)) [facility] CenterKdtuctcDRYCRQ8539-95-26 07:23:00 Test Item Value Reference Range Interpretation Comments HDL (test code = HDL) 50 [facility]bergQbwbwluKEHYAW0660-06-80 07:23:00 Test Item Value Reference Range Interpretation Comments Trig (test code = Trig) 134 [facility] CenterDemlhplWGQYQP7122-21-90 07:23:00 Test Item Value Reference Range Interpretation Comments Chol (test code = Chol) 204 [facility] CenterJlcmqilIWSPRZ0585-20-09 07:23:00 Test Item Value Reference Range Interpretation Comments CHD Risk (test code = CHD Risk) 4.08 3.90-5.80 [facility] [id number] 17:00:00 Test Item Value Reference Range Interpretation Comments ALANINE AMINOTRANSFERASE 204 See_Comment [A utomated message] (test code = ALANINE The sys tem which AMINOTRANSFERASE) generated this result transmitted ref erence range: <=65. Th e reference range was not used to int erpret this result as normal/abnormal . [facility] [id number] 17:00:00 Test Item Value Reference Range Interpretation Comments ASPARTATE TRANSAMINASE 70 See_Comment [Aut omated message] (test code = ASPARTATE The s ystem which TRANSAMINASE) generated this result transmitted ref erence range: <=37. Th e reference range was not used to interpr et this result as normal/abnormal . [facility] [id number] 17:00:00 Test Item Value Reference Range Interpretation Comments Alk Phos (test code = Alk Phos) 109 39-136 [facility] [id number] 17:00:00 Test Item Value Reference Range Interpretation Comments Albumin Lvl (test code = Albumin Lvl) 3.6 3.5-5.0 [facility] [id number] 17:00:00 Test Item Value Reference Range Interpretation Comments Bili Total (test code = Bili Total) 0.4 0.2-1.3 [facility] [id number] 17:00:00 Test Item Value Reference Range Interpretation Comments Bili Direct (test code 0.1 See_Comment [Aut omated message] The = Bili Direct) system which generated this result tra nsmitted reference range : <=0.3. The reference r celio was not used to int erpret this result as dequan l/abnormal. [facility] [id number] 17:00:00 Test Item Value Reference Range Interpretation Comments Total Protein (test code = Total 6.9 6.4-8.4 Protein) [facility]2014-03-06 17:00:00 Test Item Value Reference Range Interpretation Comments A/G Ratio (test code = A/G Ratio) 1.1 0.7-1.6 [place] 109914-03-06 17:00:00 Test Item Value Reference Range Interpretation Comments Bili Indirect (test 0.3 See_Comment [Automa blayne message] The code = Bili Indirect) system which generated this result tra nsmitted reference range : <=1.0. The reference r celio was not used to int erpret this result as normal/abnormal . [place] 109914-03-06 17:00:00 Test Item Value Reference Range Interpretation Comments Globulin (test code = Globulin) 3.3 2.0-4.0 [place] 109914-03-06 17:00:00 Test Item Value Reference Range Interpretation Comments ALANINE AMINOTRANSFERASE 204 See_Comment [A utomated message] (test code = ALANINE The sys tem which AMINOTRANSFERASE) generated this result transmitted ref erence range: <=65. Th e reference range was not used to int erpret this result as normal/abnormal . [facility]2014-03-06 17:00:00 Test Item Value Reference Range Interpretation Comments Albumin Lvl (test code = Albumin Lvl) 3.6 3.5-5.0 [place] 109914-03-06 17:00:00 Test Item Value Reference Range Interpretation Comments Alk Phos (test code = Alk Phos) 109 39-136 [facility]2014-03-06 17:00:00 Test Item Value Reference Range Interpretation Comments Bili Total (test code = Bili Total) 0.4 0.2-1.3 [place] 109914-03-06 17:00:00 Test Item Value Reference Range Interpretation Comments ASPARTATE TRANSAMINASE 70 See_Comment [Aut omated message] (test code = ASPARTATE The s ystem which TRANSAMINASE) generated this result transmitted ref erence range: <=37. Th e reference range was not used to interpr et this result as normal/abnormal . [place] 109914-03-06 17:00:00 Test Item Value Reference Range Interpretation Comments Total Protein (test code = Total 6.9 6.4-8.4 Protein) [facility] [id number] 17:00:00 Test Item Value Reference Range Interpretation Comments B/C Ratio (test code = B/C Ratio) 13 6-25 [facility]annCHEM [id number] 17:00:00 Test Item Value Reference Range Interpretation Comments Globulin (test code = Globulin) 3.3 2.0-4.0 [facility] [id number] 17:00:00 Test Item Value Reference Range Interpretation Comments A/G Ratio (test code = A/G Ratio) 1.1 0.7-1.6 [facility] [id number] 17:00:00 Test Item Value Reference Range Interpretation Comments UDS Note (test code = See Note UDS Note) 7*NA*(11/26/2013 11:00:00 [place] [facility] [id number] 17:00:00 Test Item Value Reference Range Interpretation Comments U Opiate Scr (test Negative code = U Opiate Scr) *NA*(11/26/2013 11:00:00 [place] [id number] 17:00:00 Test Item Value Reference Range Interpretation Comments U Phencyc Scr (test Negative code = U Phencyc Scr) *NA*(11/26/2013 11:00:00 [place] [id number] 17:00:00 Test Item Value Reference Range Interpretation Comments U Cocaine Scr (test Negative code = U Cocaine Scr) *NA*(11/26/2013 11:00:00 [place] [id number] 17:00:00 Test Item Value Reference Range Interpretation Comments U Cannab Scr (test Negative code = U Cannab Scr) *NA*(11/26/2013 11:00:00 [place] [id number] 17:00:00 Test Item Value Reference Range Interpretation Comments U Benzodia Scr (test Negative code = U Benzodia Scr) *NA*(11/26/2013 11:00:00 [place] [id number] 17:00:00 Test Item Value Reference Range Interpretation Comments U Toshia Scr (test code Negative *NA*(11/26/2013 = U Toshia Scr) 11:00:00 [place] [id number] 17:00:00 Test Item Value Reference Range Interpretation Comments U Amph Scr (test code Negative *NA*(11/26/2013 = U Amph Scr) 11:00:00 [place]woodannSPECIAL [id number] 17:00:00 Test Item Value Reference Range Interpretation Comments Hgb A1C (test code = Hgb A1C) 10.4 [facility] [id number] 17:00:00 Test Item Value Reference Range Interpretation Comments UA Urobilinogen (test code = UA <=1.0 mg/dL 0.1-1.0 Urobilinogen) [facility] [id number] 17:00:00 Test Item Value Reference Range Interpretation Comments UA RBC (test code = 6 See_Comment [Automa blayne message] The UA RBC) system which ge nerated this result transmit blayne reference range : <=2. The reference range was not used to interpr et this result as dequan l/abnormal. [facility] [id number] 17:00:00 Test Item Value Reference Range Interpretation Comments UA Bacteria (test code = UA Occasional /HPF Bacteria) [facility] [id number] 17:00:00 Test Item Value Reference Range Interpretation Comments UA Ketones (test code = UA Negative mg/dL Ketones) [facility] [id number] 17:00:00 Test Item Value Reference Range Interpretation Comments UA Turbidity (test code = Clear (11/26/2013 UA Turbidity) 11:00:00 [place] [id number] 17:00:00 Test Item Value Reference Range Interpretation Comments UA Spec Grav (test code = UA Spec Grav) 1.017 [facility] [id number] 17:00:00 Test Item Value Reference Range Interpretation Comments UA pH (test code = UA pH) 7.5 5.0-8.0 [facility] [id number] 17:00:00 Test Item Value Reference Range Interpretation Comments UA Protein (test code = UA Negative mg/dL Protein) [facility] AND [id number] 17:00:00 Test Item Value Reference Range Interpretation Comments UA Glucose (test code = UA >=1000 mg/dL Glucose) [facility] AND [id number] 17:00:00 Test Item Value Reference Range Interpretation Comments UA Sq Epi (test code = UA Sq Occasional /LPF Epi) [facility] AND [id number] 17:00:00 Test Item Value Reference Range Interpretation Comments UA WBC (test code = 2 See_Comment [Automa blayne message] The UA WBC) system which ge nerated this result transmit blayne reference range : <=5. The reference range was not used to interpr et this result as dequan l/abnormal. [facility] AND [id number] 17:00:00 Test Item Value Reference Range Interpretation Comments UA Bili (test code = Negative *NA*(11/26/2013 UA Bili) 11:00:00 [place] [facility] AND [id number] 17:00:00 Test Item Value Reference Range Interpretation Comments UA Blood (test code = Trace *ABN*(11/26/2013 UA Blood) 11:00:00 [place] [facility] AND [id number] 17:00:00 Test Item Value Reference Range Interpretation Comments UA Nitrite (test code Negative (11/26/2013 = UA Nitrite) 11:00:00 [place] [facility] AND [id number] 17:00:00 Test Item Value Reference Range Interpretation Comments UA Leuk Est (test Negative (11/26/2013 code = UA Leuk Est) 11:00:00 [place] [facility] AND [id number] 17:00:00 Test Item Value Reference Range Interpretation Comments UA Color (test code = Light Yellow UA Color) *NA*(11/26/2013 11:00:00 [place] [facility]
[2023-01-16] MEDS ORDERED: NA CHLORIDE 0.9% 1,000 ML ONE (19:27)
[2023-01-16] MEDS ORDERED: FAMOTIDINE 20 MG/2 ML VIAL IV ONE (19:27)
[2023-01-16] MEDS ORDERED: METOCLOPRAMIDE 10 MG/2mL INJ ONE (19:27)
--- NOTE | 2023-01-16 21:03 | RAD REPORT ---
EXAM DESCRIPTION: CT - Abdomen Pelvis Wo Contrast - 01/16/2023 8:32 pm CLINICAL HISTORY: upper abdomen pain COMPARISON: Abdomen Pelvis Wo Contrast dated 06/09/2022; Abdomen Pelvis W Contrast dated 2; CTSTONE PROTOCOL dated 03/21/2014 TECHNIQUE: Thin cut axial CT imaging of the abdomen and pelvis was performed without IV contrast. Mu ltiplanar reformats were generated and reviewed. All CT scans are performed using dose optimization technique as appropriate and may include automated exposure control or mA/KV adjustment according to patient size. FINDINGS: No suspicious findings in the lung bases. The liver, spleen, and pancreas show no suspicious findings. Status Post cholecystectomy. No evidence of intra or extrahepatic biliary ductal dilation. Symmetric renal contour, without suspicious parenchymal findings within limits of noncontrast techniq ue. No evidence of radiopaque calculi or hydroureteronephrosis. No dilated bowel loops or bowel wall thickening. No free air, free fluid or inflammatory stranding. N o hernia, mass or bulky lymphadenopathy. The urinary bladder is without significant finding. No suspicious bony findings. IMPRESSION: No acute intra-abdominal process.
--- NOTE | 2023-01-16 21:07 | RAD REPORT ---
EXAM DESCRIPTION: [place] Single View01/16/2023 7:46 pm CLINICAL HISTORY: upper abdomen pain COMPARISON: Chest Single View dated 01/04/2017 TECHNIQUE: Portable AP view of the chest. FINDINGS: The lungs are clear. No pneumothorax or effusion. The cardiomediastinal contours are unrem arkable. IMPRESSION: No acute cardiopulmonary process.
[2023-01-16 21:54] LABS: Absolute Lymphocytes (CBC) 2.2 K/uL (0.7-4.9); Hematocrit 39.2 % (36.0-45.0); Lymphocytes % 28.6 % (15.3-44.8); MPV 7.4 fL (7.6-11.3); RBC Red Blood Cell Count 4.31 M/uL (3.86-4.86)
[2023-01-16 22:17] LABS: Albumin 3.8 g/dL (3.4-5.0); Bilirubin Total 0.6 mg/dL (0.2-1.0); Protein, Total 7.7 g/dL (6.4-8.2)
[2023-01-16 22:18] LABS: Potassium 4.4 mEq/L (3.5-5.1)
--- NOTE | 2023-01-16 23:04 | ER ---
Nurse's Notes [facility] Name: Amparo Franco Age: 57 yrs Sex: Female : 1965 Arrival Date: 01/16/2023 Time: 16:57 Bed 6 Private MD: Diagnosis: Nausea with vomiting, unspecified;Epigastric pain Presentation: 01/16 17:29 Chief complaint: Patient states: she started having upper abdominal pain that radiates ap3 to her back and up to her chest. patient states she went to the dentist this morning and was given some acetaminophen/cod #3 and the pain started approx 30 mins after she took those medications. patient rates the pain a 10/10 on the pain scale at this time. Coronavirus screen: At this time, the client does not indicate any symptoms associated with coronavirus-19. Ebola Screen: No symptoms or risks identified at this time. Initial Sepsis Screen: Does the patient meet any 2 criteria? No. Patient's initial sepsis screen is negative. Does the patient have a suspected source of infection? No. Patient's initial sepsis screen is negative. Risk Assessment: Do you want to hurt yourself or someone else? Patient reports no desire to harm self or others. Onset of symptoms was January 16, 2023. 17:29 Method Of Arrival: Wheelchair ap3 17:29 Acuity: HARPREET 3 ap3 Triage Assessment: 17:32 General: Appears uncomfortable, Behavior is calm, cooperative, appropriate for age. ap3 Pain: Complains of pain in back, chest and abdomen Pain currently is 10 out of 10 on a pain scale. Pain began today. Neuro: Level of Consciousness is awake, alert, obeys commands, Oriented to person, place, time. Cardiovascular: Patient's skin is warm and dry. Respiratory: Airway is patent Respiratory effort is even, unlabored, Respiratory pattern is regular, symmetrical. GI: Reports lower abdominal pain, upper abdominal pain, nausea. Historical: - Allergies: 17:31 Advil; ap3 17:31 Cipro; ap3 17:31 IV contrast; ap3 17:31 Morphine; ap3 - PMHx: 17:31 CVA; Depression; Diabetes - NIDDM; Hyperlipidemia; Hypertension; ap3 - PSHx: 17:31 Cholecystectomy; ap3 - Immunization history:: Client reports receiving the 2nd dose of the Covid vaccine. - Social history:: Smoking status: Patient denies any tobacco usage or history of. Screenin:32 Abuse screen: Denies threats or abuse. Nutritional screening: No deficits noted. ap3 Tuberculosis screening: No symptoms or risk factors identified. 23:40 [facility] ED Fall Risk Assessment (Adult) History of falling in the last 3 months, lg3 including since admission No falls in past 3 months (0 pts). Assessment: 19:36 General: Appears uncomfortable, obese, Behavior is cooperative, anxious. General: pt aa9 reports vomiting after taking acetaminophen with codeine. pt reports eating prior to taking the medication for tooth pain.. Pain: Complains of pain in abdomen. Neuro: Level of Consciousness is awake, alert, obeys commands, Oriented to person, place, time, situation. Cardiovascular: Patient's skin is warm and dry. Respiratory: Airway is patent Respiratory effort is even, unlabored. GI: Abdomen is obese, Reports nausea, vomiting. Derm: Skin is intact, is healthy with good turgor. 22:01 Reassessment: Patient appears in no apparent distress at this time. Patient is alert, aa9 oriented x 3, equal unlabored respirations, skin warm/dry/pink. 22:36 Reassessment: Patient appears in no apparent distress at this time. Patient and/or aa9 family updated on plan of care and expected duration. Pain level reassessed. Patient is alert, oriented x 3, equal unlabored respirations, skin warm/dry/pink. 23:39 Reassessment: Patient appears in no apparent distress at this time. No changes from lg3 previously documented assessment. Patient and/or family updated on plan of care and expected duration. Pain level reassessed. Patient is alert, oriented x 3, equal unlabored respirations, skin warm/dry/pink. Patient states feeling better. Patient states symptoms have improved. Vital Signs: 17:29 BP 121 / 81; Pulse 96; Resp 18; Temp 98.6; Pulse Ox 96% ; Weight 75.3 kg; Height 4 ft. ap3 10 in. ; Pain 10/10; 19:38 BP 121 / 62; Pulse 80; Resp 17; Temp 98.2(O); Pulse Ox 99% on R/A; aa9 22:15 BP 139 / 78; Pulse 77; Resp 17; Pulse Ox 99% on R/A; aa9 22:54 BP 141 / 80; Pulse 76; Resp 17 S; Pulse Ox 99% ; aa9 23:40 BP 132 / 84; Pulse 79; Resp 21; Pulse Ox 97% on R/A; lg3 17:29 Body Mass Index 34.69 (75.30 kg, 147.32 cm) ap3 17:29 Pain Scale: Adult ap3 ED Course: 16:59 Patient arrived in ED. rg4 17:05 James Galindo PA is PHCP. cp 17:05 Chadd Lloyd MD is Attending Physician. cp 17:31 Triage completed. ap3 17:32 Arm band placed on left wrist. ap3 19:23 Attending Physician role handed off by Chadd Lloyd MD cp 19:23 James Cade MD is Attending Physician. cp 19:36 Missed attempt(s): 20 gauge in left antecubital area. Bleeding controlled, band aid aa9 applied, catheter tip intact. 19:38 Patient has correct armband on for positive identification. Placed in gown. Call light aa9 in reach. Side rails up X2. Adult w/ patient. Pulse ox on. NIBP on. 19:48 XRAY Chest (1 view) In Process Unspecified. EDMS 20:33 CT Abd/Pelvis - Without Contrast In Process Unspecified. EDMS 21:42 Inserted saline lock: 24 gauge in left upper arm, using aseptic technique. Blood lg3 collected. 21:42 Troponin HS Sent. lg3 21:42 CBC with Diff Sent. lg3 21:42 CMP Sent. lg3 21:42 Lipase Sent. lg3 22:54 Diet: Patient given water. aa9 23:40 No provider procedures requiring assistance completed. IV discontinued, intact, lg3 bleeding controlled, No redness/swelling at site. Pressure dressing applied. Administered Medications: 21:42 Drug: metoCLOPramide IVP 10 mg Route: IVP; Site: left upper arm; lg3 22:39 Follow up: Response: No adverse reaction aa9 21:43 Drug: NS 0.9% IV 1000 ml Route: IV; Rate: 1 bolus; Site: left upper arm; lg3 21:43 Drug: Famotidine IVP 20 mg Route: IVP; Site: left upper arm; lg3 22:39 Follow up: Response: No adverse reaction aa9 23:22 Drug: GI Cocktail without - (Maalox PO Suspension 30 ml, Lidocaine Mucous lg3 Membrane Liquid 2 % 15 ml) Route: PO; Medication: 23:41 VIS not applicable for this client. lg3 Outcome: 23:03 Discharge ordered by . cp 23:40 Discharged to home ambulatory, with significant other. lg3 23:40 Condition: stable 23:40 Discharge instructions given to patient, Instructed on discharge instructions, follow up and referral plans. Demonstrated understanding of instructions, follow-up care. 23:41 Patient left the ED. lg3 Signatures: Dispatcher [employer] EDMS James Galindo PA PA cp Garcia, Rubi rg4 Pooja Rowe RN RN ap3 Yessica Valerio, RN RN lg3 Sherley Paul, RN RN aa9
--- NOTE | 2023-01-16 23:04 | EDPHYS ---
Physician Documentation [facility] Name: Amparo Franco Age: 57 yrs Sex: Female : 1965 Arrival Date: 01/16/2023 Time: 16:57 Bed 6 Private MD: ED Physician James Cade HPI: 01/16 18:10 This 57 yrs old Female presents to ER via Wheelchair with complaints of cp Vomiting. 18:10 The patient presents to the emergency department with nausea, that is moderate, cp vomiting, that is intermittent, abdominal pain, of the epigastric area, described as constant, and radiates to the mid back area. 18:10 Onset: The symptoms/episode began/occurred today. Possible causes: prescribed cp acetaminophen with codeine. Associated signs and symptoms: Pertinent positives: abdominal pain, anorexia, Pertinent negatives: constipation, diarrhea, fever, GI bleeding. Severity of symptoms: in the emergency department the symptoms are unchanged despite home interventions. reports patient had tooth extraction this morning with no complications. Prescribed acetaminophen and codeine for pain and after taking the medication and attempting to eat soup, patient reports she started having epigastric pain and vomiting. Patient denies blood in vomitus. Historical: - Allergies: 17:31 Advil; ap3 17:31 Cipro; ap3 17:31 IV contrast; ap3 17:31 Morphine; ap3 - PMHx: 17:31 CVA; Depression; Diabetes - NIDDM; Hyperlipidemia; Hypertension; ap3 - PSHx: 17:31 Cholecystectomy; ap3 - Immunization history:: Client reports receiving the 2nd dose of the Covid vaccine. - Social history:: Smoking status: Patient denies any tobacco usage or history of. ROS: 18:15 Constitutional: Negative for body aches, chills, fever. cp 18:15 Eyes: Negative for injury, pain, redness, and discharge. cp 18:15 ENT: Negative for drainage from ear(s), ear pain, sore throat, difficulty swallowing, difficulty handling secretions. 18:15 Cardiovascular: Negative for chest pain, edema, palpitations. 18:15 Respiratory: Negative for cough, shortness of breath, wheezing. 18:15 Abdomen/GI: Positive for abdominal pain, nausea, vomiting, anorexia, of the epigastric area, Negative for diarrhea, constipation, hematemesis. 18:15 : Negative for urinary symptoms. 18:15 Neuro: Negative for altered mental status, dizziness, headache, weakness. 18:15 All other systems are negative. Exam: 18:20 Constitutional: The patient appears in no acute distress, alert, awake, cp non-diaphoretic, non-toxic, well developed, well nourished, uncomfortable, overweight 18:20 Head/Face: Normocephalic, atraumatic. cp 18:20 Eyes: Periorbital structures: appear normal, Conjunctiva: normal, no exudate, no injection, Sclera: no appreciated abnormality, Lids and lashes: appear normal, bilaterally. 18:20 ENT: External ear(s): are unremarkable, Nose: is normal, Mouth: Lips: moist, Oral mucosa: pink and intact, moist, Posterior pharynx: is normal, airway is patent, no erythema, no exudate. 18:20 Neck: ROM/movement: is normal, is supple, without pain, no range of motions limitations. 18:20 Chest/axilla: Inspection: normal. 18:20 Cardiovascular: Rate: normal, Rhythm: regular. 18:20 Respiratory: the patient does not display signs of respiratory distress, Respirations: normal, no use of accessory muscles, no retractions, labored breathing, is not present, Breath sounds: are clear throughout, no decreased breath sounds, no stridor, no wheezing. 18:20 Abdomen/GI: Inspection: abdomen appears normal, Bowel sounds: active, all quadrants, Palpation: soft, in all quadrants, moderate abdominal tenderness, in the epigastric area, rebound tenderness, is not appreciated, voluntary guarding, is elicited in the epigastric area. 18:20 Back: pain, of the mid back area, ROM is normal. 22:37 ECG was reviewed by the Attending Physician. cp Vital Signs: 17:29 BP 121 / 81; Pulse 96; Resp 18; Temp 98.6; Pulse Ox 96% ; Weight 75.3 kg; Height 4 ft. ap3 10 in. ; Pain 10/10; 19:38 BP 121 / 62; Pulse 80; Resp 17; Temp 98.2(O); Pulse Ox 99% on R/A; aa9 22:15 BP 139 / 78; Pulse 77; Resp 17; Pulse Ox 99% on R/A; aa9 22:54 BP 141 / 80; Pulse 76; Resp 17 S; Pulse Ox 99% ; aa9 23:40 BP 132 / 84; Pulse 79; Resp 21; Pulse Ox 97% on R/A; lg3 17:29 Body Mass Index 34.69 (75.30 kg, 147.32 cm) ap3 17:29 Pain Scale: Adult ap3 MDM: 17:53 Patient medically screened. cp 20:00 Differential diagnosis: Nonspecific abd pain, gastritis, cholecystitis, pancreatitis, cp appendicitis, diverticulitis, viral gastroenteritis, gastroenteritis. 23:02 Data reviewed: vital signs, nurses notes, lab test result(s), EKG, radiologic studies, cp CT scan, plain films. 23:02 Consideration of Admission/Observation Escalation of care including cp admission/observation considered. I considered the following discharge prescriptions or medication management in the emergency department Medications were administered in the Emergency Department. See MAR. Independent interpretation of the following test(s) in the Emergency Department EKG: See my EKG interpretation above X-Ray: My interpretation is chest image negative for infiltrates. Test considered but Not performed: Ultrasound gallbladder. Historians other than the Patient: Spouse/Significant Other: translates. Care significantly affected by the following chronic conditions: Diabetes, Hypertension. Counseling: I had a detailed discussion with the patient and/or guardian regarding: the historical points, exam findings, and any diagnostic results supporting the discharge/admit diagnosis, lab results, radiology results, to return to the emergency department if symptoms worsen or persist or if there are any questions or concerns that arise at home. Response to treatment: the patient's symptoms have markedly improved after treatment, Pain and nausea markedly improved, vomiting resolved, and as a result, I will discharge patient. Special discussion: Based on the patient's Hx, exam, and Dx evaluation, there is no indication for emergent surgery or inpatient Tx. It is understood by the patient/guardian that if the Sx's persist or worsen they need to return immediately for re-evaluation. 01/16 18:06 Order name: CBC with Diff; Complete Time: 22:26 cp 01/16 22:26 Interpretation: Reviewed. 01/16 18:06 Order name: CMP; Complete Time: 22:26 cp 01/16 22:26 Interpretation: Normal except: NA 134; GLUC 111; AST 144; ALT 108; GLOB 3.9; A/G 1.0. cp 01/16 18:06 Order name: Lipase; Complete Time: 22:26 cp 01/16 22:26 Interpretation: Reviewed. cp 01/16 18:46 Order name: Troponin HS; Complete Time: 23:02 cp 01/16 18:46 Order name: XRAY Chest (1 view); Complete Time: 21:15 cp 01/16 21:15 Interpretation: Report review. cp 01/16 19:53 Order name: CT Abd/Pelvis - Without Contrast; Complete Time: 21:04 cp 01/16 22:27 Interpretation: Report reviewed. cp 01/16 18:46 Order name: EKG; Complete Time: 18:46 cp 01/16 18:06 Order name: IV Saline Lock; Complete Time: 21:42 cp 01/16 18:06 Order name: Labs collected and sent; Complete Time: 21:42 cp 01/16 18:46 Order name: EKG - Nurse/Tech; Complete Time: 22:35 cp 01/16 22:28 Order name: PO challenge; Complete Time: 23:22 cp EC:37 Rate is 78 beats/min. Rhythm is regular. MN interval is normal. QRS interval is normal. cp QT interval is normal. T waves are Inverted in lead aVR. Interpreted by me. Reviewed by me. Administered Medications: 21:42 Drug: metoCLOPramide IVP 10 mg Route: IVP; Site: left upper arm; lg3 22:39 Follow up: Response: No adverse reaction aa9 21:43 Drug: NS 0.9% IV 1000 ml Route: IV; Rate: 1 bolus; Site: left upper arm; lg3 21:43 Drug: Famotidine IVP 20 mg Route: IVP; Site: left upper arm; lg3 22:39 Follow up: Response: No adverse reaction aa9 23:22 Drug: GI Cocktail without - (Maalox PO Suspension 30 ml, Lidocaine Mucous lg3 Membrane Liquid 2 % 15 ml) Route: PO; Disposition Summary: 01/16/23 23:03 Discharge Ordered Location: Home cp Problem: new cp Symptoms: have improved cp Condition: Stable cp Diagnosis - Nausea with vomiting, unspecified cp - Epigastric pain cp Followup: cp - With: Private Physician - When: 1 - 2 days - Reason: Recheck today's complaints Forms: - Medication Reconciliation Form cp - Thank You Letter cp - Antibiotic Education cp - Prescription Opioid Use cp Addendum: 01/21/2023 07:00 Co-signature as Attending Physician, Chadd Lloyd MD I reviewed the patient's care r n provided by the Advanced Practice Provider and agree with the diagnosis and treatment plan. Signatures: Dispatcher [employer] EDMS Chadd Lloyd MD MD rn James Galindo, Pooja Magaña cp RN RN ap3 Yessica Valerio RN RN lg3 Sherley Paul RN aa9 Corrections: (The following items were deleted from the chart) 01/16 18:23 18:07 Abdomen Limited+[id number] ordered. EDAZ EDAZ
[2023-01-16] MEDS ORDERED: MAGNES/ALUMIN/SIMET 30ML UCUP ONE (23:22)
[2023-01-16] MEDS ORDERED: LIDOCAINE VISCOUS 2% SOLN 15 ML UDC ONE (23:22)
[2023-01-17 01:10] VITALS: TEMP 98.2
[2023-01-17 01:23] VITALS: BP 132/84; O2SAT 97
--- NOTE | 2023-01-18 07:04 | EKG ---
Test Date: 2023-01-16 Test Time: 22:31:51 Field Technical Assistant: KRISTAL MEASUREMENT RESULTS: Intervals: Rate: 78 MT: 160 QRSD: 76 QT: 358 QTc: 408 [place]: P: 72 MT: 160 QRS: 26 T: 52 INTERPRETIVE STATEMENTS: Normal sinus rhythm Normal ECG Compared to ECG 06/06/2022 11:58:35 No significant changes Electronically Signed On 01-18-23 07:00:15 CDT by Zach Jaffe
== END 2023-01-16 23:41 | disposition home or self-care (01) ==
LOC: ER 16:57
DX: R11.2 Nausea with vomiting, unspecified (principal); R10.13 Epigastric pain; Z88.1 Allergy status to other antibiotic agents; Z88.5 Allergy status to narcotic agent; Z88.6 Allergy status to analgesic agent; Z91.041 Radiographic dye allergy status
CPT/HCPCS: 85025; 36415; 84484; 83690; 80053; 74176; 71045; J2765; J7030; 93005; 96374; 96375; 99284

== ENCOUNTER 2023-02-04 17:52 | Emergency (ER) | payer OTHER ==
--- OUTSIDE RECORDS SUMMARY | 2023-02-04 18:22 | XMS REPORT | Continuity of Care Document ---
:1965 Author Organization [facility] t Address [address] [facility]. [address] [place] [address] Care Team Providers Name Role Phone Lakeshia Mathis MD Primary Care Physician [phone] JOSE CABALLERO Attending Clinician Unavailable VANESSA MONTOYA Attending Clinician Unavailable VANESSA MONTOYA Attending Clinician Unavailable PAUL ASHTON Attending Clinician Unavailable JACKIE FERNANDEZ Attending Clinician Unavailable MAYLIN JO Attending Clinician Unavailable RACHELE BANSAL Attending Clinician Unavailable Caitlin Valles OT Attending Clinician Unavailable Rachele Bansal MD Attending Clinician Chidi CAMACHO, Robson ERWIN Attending Clinician [phone] Doctor Unassigned, [place] Attending Clinician Unavailable Rj Mccord PA-C Attending Clinician Jovita Mora MD Attending Clinician LAB90 Attending Clinician Unavailable Mann Perdomo NP Attending Clinician Lakeshia Mathis MD Attending Clinician [phone] RJ MCCORD Attending Clinician Unavailable KAMILLA NAVA Attending Clinician Unavailable DANY KHANNA Attending Clinician Unavailable JOVITA MORA Attending Clinician Unavailable Garrett [employer], Caitlin Esparza Attending Clinician Unavailable Garrett [employer]BER, Molina Hayward Attending Clinician Unavailable Pablo PTJennifer Attending Clinician Unavailable 2, [facility] Attending Clinician Unavailable Danny William MD Attending Clinician MANN PERDOMO Attending Clinician Unavailable DANNY WILLIAM Attending Clinician Unavailable ESTELLA ANDERSON Attending Clinician Unavailable Justin FLETCHER, Estella Ruffin Attending Clinician LAKESHIA MATHIS Attending Clinician Unavailable Vilma MITCHELL Attending Clinician Unavailable Vilma Phan Attending Clinician Bud Ma Attending Clinician BUD ORDONEZ Attending Clinician Unavailable SHERRIE FERNÁNDEZ Attending Clinician Unavailable Jimy Cardona OT Attending Clinician Unavailable Clara Kim OD Attending Clinician CLARA KIM Attending Clinician Unavailable Lashaun Bean PT Attending [...] Clinician EAMON BARROW Attending Clinician Unavailable MAHAMED MCKEON Attending Clinician Unavailable Therapy-Walkin, How-Pe-Hxaox Attending Clinician Unavailable Art Reyes MD Attending Clinician ART REYES Attending Clinician Unavailable Yan Frazier MD Attending Clinician YAN FRAZIER Attending Clinician Unavailable HEATHER JURADO Attending Clinician Unavailable JOSH JOHNSON Attending Clinician Unavailable LIBRADO FONSECA Attending Clinician Unavailable JAIMIE PAPPAS Attending Clinician [...] Number Effective Date Expiration Date S ource [facility] WELLMED [id number] 2021 00:00:00 WELLMED/AARP MCARE [id number] 2020 ADV CHOICE PPO 00:00:00 [facility] MA AARP PLAN 1 [id number] 2022 HMO 00:00:00 [facility] MA DUAL 5 [id number] 2022 COMPLETE ALLY 00:00:00 D-SNP UNITED [id number] 2020 HEALTHCARE/AARP 00:00:00 Problems Condition Condition Condition Status Onset Resolution Last Treating Co mments Source Name Details Category Date Date Treatment Clinician Date 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 4-25 ity of atrophic atrophic 00:00: [place] vaginitis vaginitis 00 Medi li Branch Well adult Well adult Disease Active K elsey [...] pain 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 [...] y of of daily of daily 00:00: [place] living living 00 Medical (ADL) (ADL) Branch Stiffness Stiffness Disease Active Uni vers of right of right 5-27 ity of wrist wrist 00:00: [place] joint joint 00 Medical Branch Stiffness Stiffness Disease Active Uni vers of finger of finger 5-13 ity of joint of joint of 00:00: [place] right hand right hand 00 Me dical Branch Right hand Right hand Disease Active U nivers weakness weakness 5-13 ity of 00:00: [place] 00 Medical Branch 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 and 4-21 it y of urge urge 00:00: [place] urinary urinary 00 Medical incontinen incontinen Br anch ce ce Arthritis Arthritis Disease Active Uni vers of right of right 8-17 ity of subtalar subtalar 00:00: [place] joint joint 00 Medical Branch Osteochond Osteochond Disease Active 2020- U nivers ral lesion ral lesion 8-17 it y of of talar of talar 00:00: [place] dome dome 00 Medical Branch Peroneal Peroneal Disease Active Unive rs tendinitis tendinitis 8-17 it y of , right , right 00:00: [place] 00 Medical Branch 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, varus, 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, acquired, 00:[place] right right [place] Chronic Chronic Disease Active 2020-0 Univers left left 2-28 ity of shoulder shoulder 00:00: [place] pain pain 00 Medical Branch Pain of Pain of Disease Active 2020-0 Univers foot, foot, 2-28 ity of unspecifie unspecifie [place] Medical laterality laterality Br anch Chronic Chronic Disease Active 2020-0 Univers pain pain 2-28 ity of syndrome syndrome 00:00: [place] 00 Medical Branch Obesity Obesity Disease Active Univers (BMI (BMI 5-20 ity of 30-39.9) 30-39.9) 00:00: [place] Medical [facility] Encounter Encounter Disease Active Overview: Univers for for 01-21 Formattin ity of complete complete 00:00: g of this Matt as eye exam eye exam 00 note Medica l might be Branch different from the original. Added automatic ally from request for surgery [id number] Epigastric Epigastric Disease Active Overview : Univers pain pain 01-21 Formattin ity of 00:00: g of this note Medical might be Branch different from the original. Added automatic ally from request for surgery [id number] Chronic Chronic Disease Active 2017-09 Univers endometrit [...] Essential Disease Active Uni vers hypertensi hypertensi -25 it y of on on 00:00: [place] [...] 01-04 04:00:00 l 01/04/2017 00:00: Gerardo zafar [address] Rehabilita tion LWOT LWOT Diagnosis Active 2014-03-21 Mem oria Active 03-19 02:43:00 l 03/19/2014 00:00: Gerardo zafar [address] STROKE STROKE Diagnosis Active 2014-03-18 Me moria LIKE LIKE 03-17 06:12:00 l SYMPTOMS SYMPTOMS 00:00: Gerardo n Active 00 03/17/2014 [facility] STROKE STROKE Diagnosis Active 2015-09-14 Me moria LIKE LIKE 03-17 14:33:00 l SYMPTOMS, SYMPTOMS, 00:00: Yoni oliveira TIA TIA Active 03/17/2014 [facility] HEMORRHAGI HEMORRHAG Diagnosis Active 2015-09-14 Memoria C CVA IC CVA 11-26 14:34:00 l Active 00:00: Srikanth 11/26/2013 00 [facility] Mancini's Mancini's Problem Resolve 2017-06-17 Me moria palsy palsy d 05:46:07 l (disorder) (disorder) He rmann Resolved Problem 06/17/2017 [facility] OPID [place] Cerebral Cerebral Problem Resolve 2017-06-17 Memoria infarction infarction d 05:46:07 l (disorder) (disorder) He rmann Resolved Problem 06/17/2017 [facility] OPID Srikanth Gastritis Gastritis Problem Resolve 2017-06-17 Memoria and and d 05:46:07 l duodenitis duodenitis He rmann (disorder) (disorder) Resolved Problem 06/17/2017 [facility]ID [place] 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 21:31:50 l occlusion occlusion Herm tee (disorder) (disorder) Resolved Problem 12/02/2013 [facility] Gastritis( Gastritis Problem Resolve 2013-12-02 Memoria Confirmed) (Confirmed d 21:31:50 l ) Resolved Gerardo n Problem 12/02/2013 [facility] CVA CVA Problem Resolve 2014-03-23 Jose Luis dennis (cerebral (cerebral d 20:08:30 l infarction infarction He rmann )(Confirme )(Confirme d) d) Resolved Problem 03/23/2014 [facility] Diabetes Diabetes Problem Active 2017-06-17 Memoria mellitus mellitus 05:46:07 l (disorder) (disorder) Vaibhav rmann Active Problem 06/17/2017 [facility] Dizziness Dizziness Problem Active 2017-06-17 Memoria (finding) (finding) 05:46:07 l Active [place] Problem 06/17/2017 [facility] OPIRobina [facility] Seizure Seizure Problem Active 2017-06-17 Me moria (finding) (finding) 05:46:07 l Active Srikanth Problem 06/17/2017 [facility] CVA CVA Diagnosis Active 2015-09-14 Mem oria Active 14:34:00 l [facility] Rehabilita tion TRANS TRANS Diagnosis Active 2015-09-14 Me moria CEREB CEREB 14:33:00 l ISCHEMIA ISCHEMIA Gerardo n NEC NEC Active [facility] History of History of Problem [...] Date Headache Headache Problem 2017-01-08 2017-01-08 Memoria 01/05/201715 01:04:01 01:04:01 l 01/08/2017 05:00: Gerardo zafar [address] Allergies, Adverse Reactions, Alerts Allergy Allergy Status Severity Reaction(s) Onset Inactive Treating Comm ents Source Name Type Date Date Clinician Ibuprofe Propensi Active Rash Melinda n ty to 2-23 Seybold adverse 00:00: - reaction 00 Externa s l Iodinate Propensi Active Anaphylaxis 0 K elsey d ty to 2-23 Seybold Contrast adverse 00:00: - reaction 00 Externa s l Morphine Propensi Active Hives 2022-0 Melinda ty to 2-23 Seybold adverse 00:00: - reaction 00 Externa s l Tramadol Propensi Active Rash 0 Melinda ty to 2-23 Seybold adverse 00:00: - reaction 00 Externa s l Naproxen Propensi Active 2021-09 [facility] ty to 0-26 Health adverse 00:00: reaction 00 s Ibuprofe Propensi Active Other 2021-09 Abdominal UT n ty to 0-26 pain Health adverse 00:00: reaction 00 s Tramadol Propensi Active 2021-09 [facility] ty to 0-26 Health adverse 00:00: reaction 00 s Shellfis Propensi Active 2021-09 Melinda h-Derive ty to 0-26 Seybold d adverse 00:00: - Products reaction 00 Tanbark Peeler a s l IODINATE Drug Active Anaphylaxis Uni vers D Class 9-23 ity of CONTRAST 00:00: [place] MEDIA 00 Medical Branch OMEGA-3 DRUG Active Unknown-Cmnt Uni vers FATTY INGREDI 9-23 ity of ACIDS 00:00: [place] 00 Medical Branch Iodinate Propensi Active Anaphylaxis 2021-0 U nivers d ty to 9-23 ity of Contrast adverse 00:00: [place] Media reaction 00 Medical s Branch IODINE DRUG Active High Anaphylaxis Unive rs INGREDI 9- ity of 00:00: [place] 00 Medical Branch Docosahe Propensi Active Rash Other Melinda xaenoic ty to 06-15 reaction( [...] headache ity of adverse 00:00: [place] reaction Medical s Branch Tramadol Propensi Active Other - See Loss of Univers ty to comments 05-14 voice ity of adverse 00:00: [place] reaction 00 Medical s Branch IBUPROFE DRUG Active Rash Univers N INGREDI 05-14 ity of 00:00: [place] [facility] CIPROFLO DRUG Active Unknown-Cmnt Un yesi XACIN-DE 05-14 ity of XAMETHAS 00:00: [place] ONE 00 Medical Branch MORPHINE DRUG Active Other-Cmnt Univ ers INGREDI 05-14 ity of 00:00: [place] [facility] TRAMADOL DRUG Active Other-Cmnt Univ ers INGREDI 05-14 ity of 00:00: [place] 00 Medical Branch Morphine Allergy Active Hives Other UT to 03-25 reaction( Health substanc 00:00: s): e 00 Nausea/Vo mitingSev ere headache traMADol traMADol Active Memori a l Srikanth Advil Advil Active Memoria l Srikanth Ciprodex Ciprodex Active Memori a <sup>1</ <sup>1</ [...] Date Quantity Comments Source Gender identity Melinda vasquez - External Sexual orientation Melinda Drew - External History SDOH University o f Alcohol Std Drinks [place] [facility] History SDOH University o f Alcohol Binge [place] Medic al Branch History SDOH University o f Alcohol Comment [place] Med ical Branch Exposure to 2023-01-13 2023-01-23 Not sure [facility] SARS-CoV-2 (event) 00:00:00 08:44:00 Alcohol intake 2022-12-31 2022-12-31 Ex-drinker Melinda ortiz - 00:00:00 00:00:00 (finding) External History of Social 2022-10-29 2022-10-29 Melinda Drew - function 00:00:00 00:00:00 External Tobacco use and 2022-07-18 2022-07-18 Smokeless [facility] exposure 00:00:00 00:00:00 tobacco non-user History SDOH 2021-11-02 2021-11-02 1 University o f Alcohol Frequency 00:00:00 00:00:00 [facility] Social History 2014-03-18 2014-03-18 [facility] Navjot sophia 20:46:33 20:46:33 [birth year] Melinda vasquez - 00:00:00 00:00:00 External Smoking Status Start Date Stop Date Source Tobacco smoking consumption unknown Melinda Drew - External Never smoked tobacco [facility] Medications Ordered Filled Start Stop Current Ordering Indication Dosage Frequency Signature Comments Components Source Medication Medication Date Date Medication? Clinician (SIG) Name Name lamoTRIgine 2023- Yes [id number] 100mg Q.5D Take 1 UT (LaMICtal) 01-24 05-04 tablet Health 100 MG 00:00: 04:59 (100 mg tablet 00 :00 total) by mouth in the morning and 1 tablet (100 mg total) in the evening. amitriptyli 2022- Yes [id number] 50mg Take 1 UT ne (Elavil) 01-23 10-31 tablet (50 H ealth 50 MG 00:00: 04:59 mg total) tablet 00 :00 by mouth every night. Baclofen 5 2022- No [id number] 1{tbl} Q.5D Take 1 UT MG tablet 01-23 9102 tablet by Heal th 00:00: 00:00 mouth in 00 :00 the morning and 1 tablet in the evening. amitriptyli 2022- No [id number] 25mg Take 1 UT ne (Elavil) 01-11- tablet (25 H ealth 25 MG 00:00: 00:00 mg total) tablet 00 :00 by mouth every night. blood sugar 2022-0 Yes [id number] Use to Univers diagnostic 4-13 test blood ity of (ONETOUCH 00:00: sugar 3 [place] ULTRA TEST) 00 times Medical strip daily Branch blood sugar 2022-0 Yes [id number] Use to Univers diagnostic 4-13 test blood ity of (ONETOUCH 00:00: sugar 3 [place] ULTRA TEST) 00 times Medical strip daily Branch blood sugar 2022-0 Yes [id number] Use to Univers diagnostic 4-13 test blood ity of (ONETOUCH 00:00: sugar 3 [place] ULTRA TEST) 00 times Medical strip daily Branch blood sugar 2022-0 Yes [id number] Use to Univers diagnostic 4-13 test blood ity of (ONETOUCH 00:00: sugar 3 [place] ULTRA TEST) 00 times Medical strip daily Branch blood sugar 2022-0 Yes [id number] Use to Univers diagnostic 4-13 test blood ity of (ONETOUCH 00:00: sugar 3 [place] ULTRA TEST) 00 times Medical strip daily Branch blood sugar 2022-0 Yes [id number] Use to Univers diagnostic 4-13 test blood ity of (ONETOUCH 00:00: sugar 3 [place] ULTRA TEST) 00 times Medical strip daily Branch blood sugar 2022-0 Yes [id number] Use to Univers diagnostic 4-13 test blood ity of (ONETOUCH 00:00: sugar 3 [place] ULTRA TEST) 00 times Medical strip daily Branch baclofen 2022-0 Yes 10mg Q.5D Take 10 mg UT (Lioresal) 4-11 by mouth Healt h 10 MG 00:00: in the tablet 00 morning and 10 mg in the evening. Cholecalcif 0 2022- No Take by Ke lsey deb 4-10 04-10 mouth Seybold (Vitamin 09:57: 00:00 - D3) 1.25 MG 41 :00 Externa (25303 UT) l oral Capsule Gabapentin 0 Yes 300mg Take 1 Humaira ey 300 MG oral 4-10 capsule Seybo ld Capsule 09:38: (300 mg - 44 total) by Externa mouth 4 l pill every am, 3 pills every noontime and 4 pills every pm Lisinopril 0 Yes 10mg Take 1 Kelse y 10 MG oral 4-10 tablet (10 Sey bold Tablet 09:38: mg total) - 44 by mouth Externa daily l Pantoprazol Yes 40mg Take 1 Humaiar ey e Sodium 40 4-10 tablet (40 Se ybold MG oral 09:38: mg total) - Tablet 44 by mouth Externa Delayed daily l Response Pravastatin Yes 10mg Take 1 Humaira ey Sodium 10 4-10 tablet (10 Seyb old MG oral 09:38: mg total) - Tablet 44 by mouth Externa daily l Ondansetron Yes 4mg Q.[id number] Take 1 Melinda HCl 4 MG 4-10 [id number] tablet (4 Seybold oral Tablet 09:38: 3D mg total) - 44 by mouth Externa every 8 l hours as needed Cyanocobala Yes Take by Roshan sey min 4-10 mouth Seybold (Vitamin 09:38: - B-12) 100 44 Externa MCG oral l Tablet Amitriptyli 0 2022- No 25mg Take 25 mg Melinda ne HCl 25 4-10 04-10 by mouth Seybo ld MG oral 09:36: 00:00 nightly - Tablet 44 :00 Externa l Topiramate 2022-0 Yes [id number] 50mg Take 1 Melinda 50 MG oral 4-10 tablet (50 Sey bold Tablet 00:00: mg total) - 00 by mouth 2 Externa times l daily linaCLOtide 2022-0 Yes [id number] 145ug Take 1 Melinda (Linzess) 4-10 capsule Seybold 145 MCG 00:00: (145 mcg - oral 00 total) by Externa Capsule mouth l daily Cholecalcif 0 Yes [id number] 1{capsu Take 1 Melinda deb 4-10 le} capsule by Rajendra (Vitamin 00:00: mouth once - D3) 1.25 MG 00 a week Tanbark Peeler a (78497 UT) l oral Capsule ONETOUCH Yes [id number] Use to Un yesi ULTRA2 4-06 test blood ity of METER Misc 00:00: [place] (TWICE Medical DAILY) Branch lancets Yes [id number] Use to Uni vers (SAFETY 4-06 test blood ity of LANCETS) 28 00:00: sugar [place] gauge Misc 00 twice Medical daily Branch ONETOUCH Yes [id number] Use to Un yesi ULTRA2 4-06 test blood ity of METER Misc 00:00: glucose [place] 00 (TWICE Medical DAILY) Branch blood sugar Yes [id number] Use to Univers diagnostic 4-06 test blood ity of (ONETOUCH 00:00: sugar [place] ULTRA TEST) 00 twice Medical strip daily Branch lancets Yes [id number] Use to Uni vers (SAFETY 4-06 test blood ity of LANCETS) 28 00:00: sugar [place] gauge Misc 00 twice Medical daily Branch ONETOUCH Yes [id number] Use to Un yesi ULTRA2 4-06 test blood ity of METER Misc 00:00: glucose [place] 00 (TWICE Medical DAILY) Branch lancets Yes [id number] Use to Uni vers (SAFETY 4-06 test blood ity of LANCETS) 28 00:00: sugar [place] gauge Misc 00 twice Medical daily Branch ONETOUCH Yes [id number] Use to Un yesi ULTRA2 4-06 test blood ity of METER Misc 00:00: glucose [place] 00 (TWICE Medical DAILY) Branch lancets Yes [id number] Use to Uni vers (SAFETY 4-06 test blood ity of LANCETS) 28 00:00: sugar [place] gauge Misc 00 twice Medical daily Branch ONETOUCH Yes [id number] Use to Un yesi ULTRA2 4-06 test blood ity of METER Misc 00:00: glucose [place] 00 (TWICE Medical DAILY) Branch lancets Yes [id number] Use to Uni vers (SAFETY 4-06 test blood ity of LANCETS) 28 00:00: sugar [place] gauge Misc 00 twice Medical daily Branch ONETOUCH 0 Yes [id number] Use to Un yesi ULTRA2 4-06 test blood ity of METER Misc 00:00: glucose [place] 00 (TWICE Medical DAILY) Branch lancets 0 Yes [id number] Use to Uni vers (SAFETY 4-06 test blood ity of LANCETS) 28 00:00: sugar [place] gauge Misc 00 twice Medical daily Branch ONETOUCH 0 Yes [id number] Use to Un yesi ULTRA2 4-06 test blood ity of METER Misc 00:00: glucose [place] 00 (TWICE Medical DAILY) Branch lancets 0 Yes [id number] Use to Uni vers (SAFETY 4-06 test blood ity of LANCETS) 28 00:00: sugar [place] gauge Misc 00 twice Medical daily Branch ONETOUCH 0 Yes [id number] Use to Un yesi ULTRA2 4-06 test blood ity of METER Misc 00:00: glucose [place] 00 (TWICE Medical DAILY) Branch lancets 0 Yes [id number] Use to Uni vers (SAFETY 4-06 test blood ity of LANCETS) 28 00:00: sugar [place] gauge Misc 00 twice Medical daily Branch ONETOUCH 0 Yes [id number] Use to Un yesi ULTRA2 4-06 test blood ity of METER Misc 00:00: glucose [place] 00 (TWICE Medical DAILY) Branch lancets 0 Yes [id number] Use to Uni vers (SAFETY 4-06 test blood ity of LANCETS) 28 00:00: sugar [place] gauge Misc 00 twice Medical daily Branch OneTouch 0 Yes Melinda Ultra in -06 Seybold vitro Strip 00:00: - 00 Externa l Safety 0 Yes Melinda Lancets 28G 06 Seybold does not 00:00: - apply Misc 00 Externa l blood sugar 0 2022- No [id number] Use to Univers diagnostic - 04-13 test blood it y of (ONETOUCH 00:00: 00:00 sugar [place] ULTRA TEST) 00 :00 twice Medical strip daily Branch Gabapentin 2023-0 Yes 300mg Take 300 Ke lsey 300 MG oral 3-27 mg by Seybold Capsule 11:38: mouth 4 - 54 pill every Externa am, 3 l pills every noontime and 4 pills every pm Lisinopril 3-0 Yes 10mg Take 10 mg K elsey 10 MG oral 3-27 by mouth Seybo ld Tablet 11:38: daily - 54 Externa l Pantoprazol 2022-0 Yes 40mg Take 40 mg Melinda e Sodium 40 3-27 by mouth Seyb old MG oral 11:38: daily - Tablet 54 Externa Delayed l Response Pravastatin 2022-0 Yes 10mg Take 10 mg Melinda Sodium 10 3-27 by mouth Seybol d MG oral 11:38: daily - Tablet 54 Externa l Ondansetron 2022-0 Yes 4mg Q.[id number] Take 4 mg Melinda HCl 4 MG 3-27 [id number] by mouth S eybold oral Tablet 11:38: [...] 39 Externa l Ondansetron 2022-0 Yes 4mg Q.[id number] Take 4 mg Melinda HCl 4 MG 3-06 [id number] by mouth S eybold oral Tablet 10:08: [...] noontime and 4 pills every pm Lisinopril 3-0 Yes 10mg Take 10 mg K elsey [...] 34 Externa l Ondansetron 2022-0 Yes 4mg Q.[id number] Take 4 mg Melinda HCl 4 MG 2-23 [id number] by mouth S eybold oral Tablet 09:28: 3D every 8 - 34 hours as Externa needed l estradioL Yes [id number] Insert 1 g Univers (ESTRACE) 2-14 PV daily x ity of 0.01 % (0.1 00:00: 2 wks, [place] mg/gram) 00 then twice Medic al vaginal weekly Branch cream estradioL Yes [id number] Insert 1 g Univers (ESTRACE) 2-14 PV daily x ity of 0.01 % (0.1 00:00: 2 wks, [place] mg/gram) 00 then twice Medic al vaginal weekly Branch cream estradioL Yes [id number] Insert 1 g Univers (ESTRACE) 2-14 PV daily x ity of 0.01 % (0.1 00:00: 2 wks, [place] mg/gram) 00 then twice Medic al vaginal weekly Branch cream estradioL 0 Yes [id number] Insert 1 g Univers (ESTRACE) 2-14 PV daily x ity of 0.01 % (0.1 00:00: 2 wks, [place] mg/gram) 00 then twice Medic al vaginal weekly Branch cream estradioL Yes [id number] Insert 1 g Univers (ESTRACE) 2-14 PV daily x ity of 0.01 % (0.1 00:00: 2 wks, [place] mg/gram) 00 then twice Medic al vaginal weekly Branch cream estradioL Yes [id number] Insert 1 g Univers (ESTRACE) 2-14 PV daily x ity of 0.01 % (0.1 00:00: 2 wks, [place] mg/gram) 00 then twice Medic al vaginal weekly Branch cream estradioL Yes [id number] Insert 1 g Univers (ESTRACE) 2-14 PV daily x ity of 0.01 % (0.1 00:00: 2 wks, [place] mg/gram) 00 then twice Medic al vaginal weekly Branch cream estradioL 0 Yes [id number] Insert 1 g Univers (ESTRACE) 2-14 PV daily x ity of 0.01 % (0.1 00:00: 2 wks, [place] mg/gram) 00 then twice Medic al vaginal weekly Branch cream estradioL Yes [id number] Insert 1 g Univers (ESTRACE) 2-14 PV daily x ity of 0.01 % (0.1 00:00: 2 wks, [place] mg/gram) 00 then twice Medic al vaginal weekly Branch cream estradioL 0 Yes [id number] Insert 1 g Univers (ESTRACE) 2-14 PV daily x ity of 0.01 % (0.1 00:00: 2 wks, [place] mg/gram) 00 then twice Medic al vaginal weekly Branch cream estradioL Yes [id number] Insert 1 g Univers (ESTRACE) 2-14 PV daily x ity of 0.01 % (0.1 00:00: 2 wks, [place] mg/gram) 00 then twice Medic al vaginal weekly Branch cream estradioL 0 Yes [id number] Insert 1 g Univers (ESTRACE) 2-14 PV daily x ity of 0.01 % (0.1 00:00: 2 wks, [place] mg/gram) 00 then twice Medic al vaginal weekly Branch cream estradioL Yes [id number] Insert 1 g Univers (ESTRACE) 2-14 PV daily x ity of 0.01 % (0.1 00:00: 2 wks, [place] mg/gram) 00 then twice Medic al vaginal weekly Branch cream estradioL Yes [id number] Insert 1 g Univers (ESTRACE) 2-14 PV daily x ity of 0.01 % (0.1 00:00: 2 wks, [place] mg/gram) 00 then twice Medic al vaginal weekly Branch cream estradioL Yes [id number] Insert 1 g Univers (ESTRACE) 2-14 PV daily x ity of 0.01 % (0.1 00:00: 2 wks, [place] mg/gram) 00 then twice Medic al vaginal weekly Branch cream estradioL Yes [id number] Insert 1 g Univers (ESTRACE) 2-14 PV daily x ity of 0.01 % (0.1 00:00: 2 wks, [place] mg/gram) 00 then twice Medic al vaginal weekly Branch cream estradioL Yes [id number] Insert 1 g Univers (ESTRACE) 2-14 PV daily x ity of 0.01 % (0.1 00:00: 2 wks, [place] mg/gram) 00 then twice Medic al vaginal weekly Branch cream ESTRADIOL Yes Insert 1 g Ke lsey VAGINAL 0.1 2-14 PV daily x Se ybold MG/GM 00:00: 2 wks, - vaginal 00 then twice Tanbark Peeler a Cream weekly l Topiramate 2022- No 25mg Take 25 mg Melinda 25 MG oral 2- by mouth 2 Se ybold Tablet 15:28: 00:00 times - 49 :00 daily Externa l Baclofen 5 2022-0 2022- No 5mg Take 5 mg K elsey MG oral 2-06 by mouth 2 Seybo ld Tablet 15:27: 00:00 times - 03 :00 daily Externa l Topiramate 0 Yes [id number] 25mg Take 1 Melinda 25 MG oral 2-06 tablet (25 Sey bold Tablet 00:00: mg total) - 00 by mouth 2 Externa times l daily Baclofen 10 2022-0 Yes [id number] 10mg Take 1 Melinda MG oral 2-06 tablet (10 Seybol d Tablet 00:00: mg total) - 00 by mouth 2 Externa times l daily Topiramate 2022-0 Yes [id number] 25mg Take 1 Melinda 25 MG oral 2-06 tablet (25 Sey bold Tablet 00:00: mg total) - 00 by mouth 2 Externa times l daily Baclofen 10 2022-0 Yes [id number] 10mg Take 1 Melinda MG oral 2-06 tablet (10 Seybol d Tablet 00:00: mg total) - 00 by mouth 2 Externa times l daily Baclofen 10 2022-0 Yes [id number] 10mg Take 1 Melinda MG oral 2-06 tablet (10 Seybol d Tablet 00:00: mg total) - 00 by mouth 2 Externa times l daily Topiramate 2022-0 Yes [id number] 25mg Take 1 Melinda 25 MG oral 2-06 tablet (25 Sey bold Tablet 00:00: mg total) - 00 by mouth 2 Externa times l daily Baclofen 10 2022-0 Yes [id number] 10mg Take 1 Melinda MG oral 2-06 tablet (10 Seybol d Tablet 00:00: mg total) - 00 by mouth 2 Externa times l daily Topiramate 2022-0 Yes [id number] 25mg Take 1 Melinda 25 MG oral 2-06 tablet (25 Sey bold Tablet 00:00: mg total) - 00 by mouth 2 Externa times l daily Baclofen 10 2022-0 Yes [id number] 10mg Take 1 Melinda MG oral 2-06 tablet (10 Seybol d Tablet 00:00: mg total) - 00 by mouth 2 Externa times l daily Topiramate 2022-0 2022- No [id number] 25mg Take 1 Melinda 25 MG oral 2-06 04-10 tablet (25 Se ybold Tablet 00:00: 00:00 mg total) - 00 :00 by mouth 2 Externa times l daily cholecalcif 2022-0 2022- No QD Take by DE deb 10-23 mouth 1 Health (Vitamin 10:03: 00:00 (one) time D-3) 10 MCG 51 :00 each day. (400 UNIT) capsule amitriptyli 2022-0 4- No [id number] 25mg Take 1 [facility] ne (Elavil) 10-23 tablet (25 H ealth 25 MG 00:00: 05:59 mg total) tablet 00 :00 by mouth every night. Amitriptyli 2022-0 4- No 25mg Take 1 Roshan sey ne HCl 25 10-23 tablet (25 Sey bold MG oral 00:00: 05:59 mg total) - Tablet 00 :00 by mouth Externa nightly l LISINOPRIL 2022-0 Yes [id number] TOME 1 U nivers 10 mg 1-24 TABLETA ity of tablet 00:00: [facility]OR [facility] DARIEL Branch LISINOPRIL 2022-0 Yes [id number] TOME 1 U nivers 10 mg 1-24 TABLETA ity of tablet 00:00: [facility] DARIEL Branch LISINOPRIL 2022-0 Yes [id number] TOME 1 U nivers 10 mg 1-24 TABLETA ity of tablet 00:00: [facility] DARIEL Branch LISINOPRIL 2022-0 Yes [id number] TOME 1 U nivers 10 mg 1-24 TABLETA ity of tablet 00:00: [facility] DARIEL Branch LISINOPRIL 2022-0 Yes [id number] TOME 1 U nivers 10 mg 1-24 TABLETA ity of tablet 00:00: [facility] DARIEL Branch LISINOPRIL 2022-0 Yes [id number] TOME 1 U nivers 10 mg 1-24 TABLETA ity of tablet 00:00: [facility] LISINOPRIL 2022-0 Yes [id number] TOME 1 U nivers 10 mg 1-24 TABLETA ity of tablet 00:00: POR [facility] Medical DARIEL Branch LISINOPRIL 2022-0 Yes [id number] TOME 1 U nivers 10 mg 1-24 TABLETA ity of tablet 00:00: [facility] Medical DARIEL Branch LISINOPRIL 2022-0 Yes [id number] TOME 1 U nivers 10 mg 1-24 TABLETA ity of tablet 00:00: P[facility] Medical DARIEL Branch LISINOPRIL 2022-0 Yes [id number] TOME 1 U nivers 10 mg 1-24 TABLETA ity of tablet 00:00: [facility] Medical DARIEL Branch LISINOPRIL 3-0 Yes [id number] TOME 1 U nivers 10 mg 1-24 TABLETA ity of tablet 00:00: [facility] Medical DARIEL Branch LISINOPRIL 3-0 Yes [id number] TOME 1 U nivers 10 mg 1-24 TABLETA ity of tablet 00:00: [facility] Medical DARIEL Branch LISINOPRIL 2022-0 Yes [id number] TOME 1 U nivers 10 mg 1-24 TABLETA ity of tablet 00:00: [facility] Medical DARIEL Branch LISINOPRIL 2022-0 Yes [id number] TOME 1 U nivers 10 mg 1-24 TABLETA ity of tablet 00:00: [facility] Medical DARIEL Branch LISINOPRIL 2022-0 Yes [id number] TOME 1 U nivers 10 mg 1-24 TABLETA ity of tablet 00:00: [facility] Medical DARIEL Branch LISINOPRIL 2022-0 Yes [id number] TOME 1 U nivers 10 mg 1-24 TABLETA ity of tablet 00:00: [facility] Medical DARIEL Branch LISINOPRIL 2022-0 Yes [id number] TOME 1 U nivers 10 mg 1-24 TABLETA ity of tablet 00:00: [facility] DARIEL Branch LISINOPRIL 3-0 Yes [id number] TOME 1 U nivers 10 mg 1-24 TABLETA ity of tablet 00:00: [facility] Medical DARIEL Branch LISINOPRIL 3-0 Yes [id number] TOME 1 U nivers 10 mg 1-24 TABLETA ity of tablet 00:00: [facility] Medical DARIEL Branch LISINOPRIL 3-0 Yes [id number] TOME 1 U nivers 10 mg 1-24 TABLETA ity of tablet 00:00: [facility] Medical DARIEL Branch LISINOPRIL 3-0 Yes [id number] TOME 1 U nivers 10 mg 1-24 TABLETA ity of tablet 00:00: POR [facility] Branch LISINOPRIL 0 Yes [id number] TOME 1 U nivers 10 mg 1-24 TABLETA ity of tablet 00:00: POR [facility] LISINOPRIL 0 Yes [id number] TOME 1 U nivers 10 mg 1-24 TABLETA ity of tablet 00:00: POR [facility] gabapentin 2022-0 Yes [facility] (Neurontin) 17 Health 300 MG 00:00: capsule 00 gabapentin 0 2022- No 300mg 300 mg. 4 [facility] (Neurontin) 17 05-04 Tablets in H ealth 300 MG 00:00: 00:00 the capsule 00 :00 morning and 3 tablets afternoon 3 tablets at night Ondansetron 0 Yes 4mg Q.[id number] Take 4 mg Melinda HCl 4 MG 1-10 [id number] by mouth S eybold oral Tablet 14:24: 3D every 8 - 58 hours as Externa needed l Ondansetron 2022-0 Yes 4mg Q.[id number] Take 4 mg Melinda HCl 4 MG 1-10 [id number] by mouth S eybold oral Tablet 14:24: [...] Tablet 02 Externa Delayed l Response Lisinopril Yes 10mg Take 10 mg K [...] QD Take 1 U T MCG capsule 2-13 le} capsule by He alth 00:00: mouth 1 00 (one) time each day. Linzess 145 2021-09 Yes 1{capsu QD Take 1 U T MCG capsule 2-13 le} capsule by He alth 00:00: mouth 1 00 (one) time each day. linaCLOtide 2021-09 No 145ug Take 1 [place] (Linzess) 2-13 04-10 capsule Seybol d 145 MCG 00:00: 00:00 (145 mcg - oral 00 :00 total) by Externa Capsule mouth l daily sumatriptan 2021-09 Yes [id number] 100mg Take 1 [facility] 100 mg 1-16 tablet by ity of tablet 00:00: mouth as [place] 00 needed for Medical Migraine. Branch lisinopriL 2021-09 Yes [id number] 10mg Take 1 U nivers 10 mg 1-16 tablet by ity of tablet 00:00: mouth [place] 00 daily. Medical Branch sumatriptan 2021-09 Yes [id number] 100mg Take 1 [facility] 100 mg 1-16 tablet by ity of tablet 00:00: mouth as [place] 00 needed for Medical Migraine. Branch lisinopriL 2021-09 Yes [id number] 10mg Take 1 U nivers 10 mg 1-16 tablet by ity of tablet 00:00: mouth [place] 00 daily. Medical Branch sumatriptan 2021-09 Yes [id number] 100mg Take 1 [facility] 100 mg 1-16 tablet by ity of tablet 00:00: mouth as [place] 00 needed for Medical Migraine. Branch lisinopriL 2021-09 Yes [id number] 10mg Take 1 U nivers 10 mg 1-16 tablet by ity of tablet 00:00: mouth [place] 00 daily. Medical Branch sumatriptan 2021-09 Yes [id number] 100mg Take 1 [facility] 100 mg 1-16 tablet by ity of tablet 00:00: mouth as [place] 00 needed for Medical Migraine. Branch lisinopriL 2021-09 Yes [id number] 10mg Take 1 U nivers 10 mg 1-16 tablet by ity of tablet 00:00: mouth [place] 00 daily. Medical Branch sumatriptan 2021-09 Yes [id number] 100mg Take 1 [facility] 100 mg 1-16 tablet by ity of tablet 00:00: mouth as [place] 00 needed for Medical Migraine. Branch lisinopriL 2021-09 Yes [id number] 10mg Take 1 U nivers 10 mg 1-16 tablet by ity of tablet 00:00: mouth [place] 00 daily. Medical Branch sumatriptan 2021-09 Yes [id number] 100mg Take 1 [facility] 100 mg 1-16 tablet by ity of tablet 00:00: mouth as [place] 00 needed for Medical Migraine. Branch lisinopriL 2021-09 Yes [id number] 10mg Take 1 U nivers 10 mg 1-16 tablet by ity of tablet 00:00: mouth [place] 00 daily. Medical Branch sumatriptan 2021-09 Yes [id number] 100mg Take 1 [facility] 100 mg 1-16 tablet by ity of tablet 00:00: mouth as [place] 00 needed for Medical Migraine. Branch lisinopriL 2021-09 Yes [id number] 10mg Take 1 U nivers 10 mg 1-16 tablet by ity of tablet 00:00: mouth [place] 00 daily. Medical Branch sumatriptan 2021-09 Yes [id number] 100mg Take 1 [facility] 100 mg 1-16 tablet by ity of tablet 00:00: mouth as [place] 00 needed for Medical Migraine. Branch lisinopriL 2021-09 Yes [id number] 10mg Take 1 U nivers 10 mg 1-16 tablet by ity of tablet 00:00: mouth [place] 00 daily. Medical Branch sumatriptan 2021-09 Yes [id number] 100mg Take 1 [facility] 100 mg 1-16 tablet by ity of tablet 00:00: mouth as [place] 00 needed for Medical Migraine. Branch lisinopriL 2021-09 Yes [id number] 10mg Take 1 U nivers 10 mg 1-16 tablet by ity of tablet 00:00: mouth [place] 00 daily. Medical Branch sumatriptan 2021-09 Yes [id number] 100mg Take 1 [facility] 100 mg 1-16 tablet by ity of tablet 00:00: mouth as [place] 00 needed for Medical Migraine. Branch lisinopriL 2021-09 Yes [id number] 10mg Take 1 U nivers 10 mg 1-16 tablet by ity of tablet 00:00: mouth [place] 00 daily. Medical Branch sumatriptan 2021-09 Yes [id number] 100mg Take 1 [facility] 100 mg 1-16 tablet by ity of tablet 00:00: mouth as [place] 00 needed for Medical Migraine. Branch lisinopriL 2021-09 Yes [id number] 10mg Take 1 U nivers 10 mg 1-16 tablet by ity of tablet 00:00: mouth [place] 00 daily. Medical Branch sumatriptan 2021-09 Yes [id number] 100mg Take 1 [facility] 100 mg 1-16 tablet by ity of tablet 00:00: mouth as [place] 00 needed for Medical Migraine. Branch lisinopriL 2021-09 Yes [id number] 10mg Take 1 U nivers 10 mg 1-16 tablet by ity of tablet 00:00: mouth [place] 00 daily. Medical Branch sumatriptan 2021-09 Yes [id number] 100mg Take 1 [facility] 100 mg 1-16 tablet by ity of tablet 00:00: mouth as [place] 00 needed for Medical Migraine. Branch lisinopriL 2021-09 Yes [id number] 10mg Take 1 U nivers 10 mg 1-16 tablet by ity of tablet 00:00: mouth [place] 00 daily. Medical Branch sumatriptan 2021-09 Yes [id number] 100mg Take 1 [facility] 100 mg 1-16 tablet by ity of tablet 00:00: mouth as [place] 00 needed for Medical Migraine. Branch lisinopriL 2021-09 Yes [id number] 10mg Take 1 U nivers 10 mg 1-16 tablet by ity of tablet 00:00: mouth [place] 00 daily. Medical Branch sumatriptan 2021-09 Yes [id number] 100mg Take 1 [facility] 100 mg 1-16 tablet by ity of tablet 00:00: mouth as [place] 00 needed for Medical Migraine. Branch lisinopriL 2021-09 Yes [id number] 10mg Take 1 U nivers 10 mg 1-16 tablet by ity of tablet 00:00: mouth [place] 00 daily. Medical Branch sumatriptan 2021-09 Yes [id number] 100mg Take 1 [facility] 100 mg 1-16 tablet by ity of tablet 00:00: mouth as [place] 00 needed for Medical Migraine. Branch lisinopriL 2021-09 Yes [id number] 10mg Take 1 U nivers 10 mg 1-16 tablet by ity of tablet 00:00: mouth [place] 00 daily. Medical Branch sumatriptan 2021-09 Yes [id number] 100mg Take 1 [facility] 100 mg 1-16 tablet by ity of tablet 00:00: mouth as [place] 00 needed for Medical Migraine. Branch lisinopriL 2021-09 Yes [id number] 10mg Take 1 U nivers 10 mg 1-16 tablet by ity of tablet 00:00: mouth [place] 00 daily. Medical Branch sumatriptan 2021-09 Yes [id number] 100mg Take 1 [facility] 100 mg 1-16 tablet by ity of tablet 00:00: mouth as [place] 00 needed for Medical Migraine. Branch lisinopriL 2021-09 Yes [id number] 10mg Take 1 U nivers 10 mg 1-16 tablet by ity of tablet 00:00: mouth [place] 00 daily. Medical Branch sumatriptan 2021-09 Yes [id number] 100mg Take 1 [facility] 100 mg 1-16 tablet by ity of tablet 00:00: mouth as [place] 00 needed for Medical Migraine. Branch lisinopriL 2021-09 Yes [id number] 10mg Take 1 U nivers 10 mg 1-16 tablet by ity of tablet 00:00: mouth [place] 00 daily. Medical Branch sumatriptan 2021-09 Yes [id number] 100mg Take 1 [facility] 100 mg 1-16 tablet by ity of tablet 00:00: mouth as [place] 00 needed for Medical Migraine. Branch lisinopriL 2021-09 Yes [id number] 10mg Take 1 U nivers 10 mg 1-16 tablet by ity of tablet 00:00: mouth [place] 00 daily. Medical Branch sumatriptan 2021-09 Yes [id number] 100mg Take 1 [facility] 100 mg 1-16 tablet by ity of tablet 00:00: mouth as [place] 00 needed for Medical Migraine. Branch lisinopriL 2021-09 Yes [id number] 10mg Take 1 U nivers 10 mg 1-16 tablet by ity of tablet 00:00: mouth [place] 00 daily. Medical Branch sumatriptan 2021-09 Yes [id number] 100mg Take 1 [facility] 100 mg 1-16 tablet by ity of tablet 00:00: mouth as [place] 00 needed for Medical Migraine. Branch lisinopriL 2021-09 Yes [id number] 10mg Take 1 U nivers 10 mg 1-16 tablet by ity of tablet 00:00: mouth [place] 00 daily. Medical Branch sumatriptan 2021-09 Yes [id number] 100mg Take 1 [facility] 100 mg 1-16 tablet by ity of tablet 00:00: mouth as [place] 00 needed for Medical Migraine. Branch lisinopriL 2021-09 Yes [id number] 10mg Take 1 U nivers 10 mg 1-16 tablet by ity of tablet 00:00: mouth [place] 00 daily. Medical Branch sumatriptan 2021-09 Yes [id number] 100mg Take 1 [facility] 100 mg 1-16 tablet by ity of tablet 00:00: mouth as [place] 00 needed for Medical Migraine. Branch sumatriptan 2021-09 Yes [id number] 100mg Take 1 [facility] 100 mg 1-16 tablet by ity of tablet 00:00: mouth as [place] 00 needed for Medical Migraine. Branch sumatriptan 2021-09 Yes [id number] 100mg Take 1 [facility] 100 mg 1-16 tablet by ity of tablet 00:00: mouth as [place] 00 needed for Medical Migraine. Branch sumatriptan 2021-09 Yes [id number] 100mg Take 1 [facility] 100 mg 1-16 tablet by ity of tablet 00:00: mouth as [place] 00 needed for Medical Migraine. Branch sumatriptan 2021-09 Yes [id number] 100mg Take 1 [facility] 100 mg 1-16 tablet by ity of tablet 00:00: mouth as [place] 00 needed for Medical Migraine. Branch sumatriptan 2021-09 Yes [id number] 100mg Take 1 [facility] 100 mg 1-16 tablet by ity of tablet 00:00: mouth as [place] 00 needed for Medical Migraine. Branch sumatriptan 2021-09 Yes [id number] 100mg Take 1 [facility] 100 mg 1-16 tablet by ity of tablet 00:00: mouth as [place] 00 needed for Medical Migraine. Branch sumatriptan 2021-09 Yes [id number] 100mg Take 1 [facility] 100 mg 1-16 tablet by ity of tablet 00:00: mouth as [place] 00 needed for Medical Migraine. Branch sumatriptan 2021-09 Yes [id number] 100mg Take 1 [facility] 100 mg 1-16 tablet by ity of tablet 00:00: mouth as [place] 00 needed for Medical Migraine. Branch sumatriptan 2021-09 Yes [id number] 100mg Take 1 [facility] 100 mg 1-16 tablet by ity of tablet 00:00: mouth as [place] 00 needed for Medical Migraine. Branch sumatriptan 2021-09 Yes [id number] 100mg Take 1 [facility] 100 mg 1-16 tablet by ity of tablet 00:00: mouth as [place] 00 needed for Medical Migraine. Branch sumatriptan 2021-09 Yes [id number] 100mg Take 1 [facility] 100 mg 1-16 tablet by ity of tablet 00:00: mouth as [place] 00 needed for Medical Migraine. Branch sumatriptan 2021-09 Yes [id number] 100mg Take 1 [facility] 100 mg 1-16 tablet by ity of tablet 00:00: mouth as [place] 00 needed for Medical Migraine. Branch sumatriptan 2021-09 Yes [id number] 100mg Take 1 [facility] 100 mg 1-16 tablet by ity of tablet 00:00: mouth as [place] 00 needed for Medical Migraine. Branch sumatriptan 2021-09 Yes [id number] 100mg Take 1 [facility] 100 mg 1-16 tablet by ity of tablet 00:00: mouth as [place] 00 needed for Medical Migraine. Branch sumatriptan 2021-09 Yes [id number] 100mg Take 1 [facility] 100 mg 1-16 tablet by ity of tablet 00:00: mouth as [place] 00 needed for Medical Migraine. Branch sumatriptan 2021-09 Yes [id number] 100mg Take 1 [facility] 100 mg 1-16 tablet by ity of tablet 00:00: mouth as [place] 00 needed for Medical Migraine. Branch sumatriptan 2021-09 Yes [id number] 100mg Take 1 [facility] 100 mg 1-16 tablet by ity of tablet 00:00: mouth as [place] 00 needed for Medical Migraine. Branch sumatriptan 2021-09 Yes [id number] 100mg Take 1 [facility] 100 mg 1-16 tablet by ity of tablet 00:00: mouth as [place] 00 needed for Medical Migraine. Branch sumatriptan 2021-09 Yes [id number] 100mg Take 1 [facility] 100 mg 1-16 tablet by ity of tablet 00:00: mouth as [place] 00 needed for Medical Migraine. Branch sumatriptan 2021-09 Yes [id number] 100mg Take 1 [facility] 100 mg 1-16 tablet by ity of tablet 00:00: mouth as [place] 00 needed for Medical Migraine. Branch sumatriptan 2021-09 Yes [id number] 100mg Take 1 [facility] 100 mg 1-16 tablet by ity of tablet 00:00: mouth as [place] 00 needed for Medical Migraine. Branch sumatriptan 2021-09 Yes [id number] 100mg Take 1 [facility] 100 mg 1-16 tablet by ity of tablet 00:00: mouth as [place] 00 needed for Medical Migraine. Branch sumatriptan 2021-09 Yes [id number] 100mg Take 1 [facility] 100 mg 1-16 tablet by ity of tablet 00:00: mouth as [place] 00 needed for Medical Migraine. Branch Sumatriptan 2021-09 Yes 100mg Take 1 Roshan sey Succinate 1-16 tablet Seybold 100 MG oral 00:00: (100 mg - Tablet 00 total) by Externa mouth as l needed lisinopriL 2021-093- No [id number] 10mg Take 1 Univers 10 mg 1-16 [...] mouth 2 ity of capsule 00:00: (two) [place] 00 times Medical daily. Branch pregabalin 2022-1 Yes 75mg Take 75 mg U nivers 75 mg 0-26 by mouth 2 ity of capsule 00:00: (two) [place] 00 times Medical daily. Branch pregabalin 2022-1 Yes 75mg Take 75 mg U nivers 75 mg 0-26 by mouth 2 ity of capsule 00:00: (two) [place] 00 times Medical daily. Branch pregabalin 2022-1 Yes 75mg Take 75 mg U nivers 75 mg 0-26 by mouth 2 ity of capsule 00:00: (two) [place] 00 times Medical daily. Branch pregabalin 2022-1 Yes 75mg Take 75 mg U nivers 75 mg 0-26 by mouth 2 ity of capsule 00:00: (two) [place] 00 times Medical daily. Branch pregabalin 2022-1 Yes 75mg Take 75 mg U nivers 75 mg 0-26 by mouth 2 ity of capsule 00:00: (two) [place] 00 times Medical daily. Branch pregabalin 2022-1 Yes 75mg Take 75 mg U nivers 75 mg 0-26 by mouth 2 ity of capsule 00:00: (two) [place] 00 times Medical daily. Branch pregabalin 2022-1 Yes 75mg Take 75 mg U nivers 75 mg 0-26 by mouth 2 ity of capsule 00:00: (two) [place] 00 times Medical daily. Branch pregabalin 2022-1 [...] mouth 2 ity of capsule 00:00: (two) [place] 00 times Medical daily. Branch pregabalin 2022-1 Yes 75mg Take 75 mg U nivers 75 mg 0-26 by mouth 2 ity of capsule 00:00: (two) [place] 00 times Medical daily. Branch pregabalin 2022-1 Yes 75mg Take 75 mg U nivers 75 mg 0-26 by mouth 2 ity of capsule 00:00: (two) [place] 00 times Medical daily. Branch pregabalin 2022-1 Yes 75mg Take 75 mg U nivers 75 mg 0-26 by mouth 2 ity of capsule 00:00: (two) [place] 00 times Medical daily. Branch pregabalin 2022-1 Yes 75mg Take 75 mg U nivers 75 mg 0-26 by mouth 2 ity of capsule 00:00: (two) [place] 00 times Medical daily. Branch pregabalin 2022-1 Yes 75mg Take 75 mg U nivers 75 mg 0-26 by mouth 2 ity of capsule 00:00: (two) [place] 00 times Medical daily. Branch pregabalin 2022-1 Yes 75mg Take 75 mg U nivers 75 mg 0-26 by mouth 2 ity of capsule 00:00: (two) [place] 00 times Medical daily. Branch pregabalin 2022-1 Yes 75mg Take 75 mg U nivers 75 mg 0-26 by mouth 2 ity of capsule 00:00: (two) [place] 00 times Medical daily. Branch pregabalin 2022-1 [...] mouth 2 ity of capsule 00:00: (two) [place] 00 times Medical daily. Branch pregabalin 2022-1 Yes 75mg Take 75 mg U nivers 75 mg 0-26 by mouth 2 ity of capsule 00:00: (two) [place] 00 times Medical daily. Branch pregabalin 2022-1 Yes 75mg Take 75 mg U nivers 75 mg 0-26 by mouth 2 ity of capsule 00:00: (two) [place] 00 times Medical daily. Branch pregabalin 2022-1 Yes 75mg Take 75 mg U nivers 75 mg 0-26 by mouth 2 ity of capsule 00:00: (two) [place] 00 times Medical daily. Branch pregabalin 2022-1 Yes 75mg Take 75 mg U nivers 75 mg 0-26 by mouth 2 ity of capsule 00:00: (two) [place] 00 times Medical daily. Branch pregabalin 2022-1 Yes 75mg Take 75 mg U nivers 75 mg 0-26 by mouth 2 ity of capsule 00:00: (two) [place] 00 times Medical daily. Branch pregabalin 2022-1 Yes 75mg Take 75 mg U nivers 75 mg 0-26 by mouth 2 ity of capsule 00:00: (two) [place] 00 times Medical daily. Branch pregabalin 2022-1 Yes 75mg Take 75 mg U nivers 75 mg 0-26 by mouth 2 ity of capsule 00:00: (two) [place] 00 times Medical daily. Branch pregabalin 2022-1 Yes 75mg Take 75 mg U nivers 75 mg 0-26 by mouth 2 ity of capsule 00:00: (two) [place] 00 times Medical daily. Branch pregabalin 2022-1 Yes 75mg Take 75 mg U nivers 75 mg 0-26 by mouth 2 ity of capsule 00:00: (two) [place] 00 times Medical daily. Branch pregabalin 2022-1 [...] mouth 2 ity of capsule 00:00: (two) [place] 00 times Medical daily. Branch pregabalin 2022-1 Yes 75mg Take 75 mg U nivers 75 mg 0-26 by mouth 2 ity of capsule 00:00: (two) [place] 00 times Medical daily. Branch pregabalin 2022-1 Yes 75mg Take 75 mg U nivers 75 mg 0-26 by mouth 2 ity of capsule 00:00: (two) [place] 00 times Medical daily. Branch pregabalin 2022-1 Yes 75mg Take 75 mg U nivers 75 mg 0-26 by mouth 2 ity of capsule 00:00: (two) [place] 00 times Medical daily. Branch pregabalin 2022-1 Yes 75mg Take 75 mg U nivers 75 mg 0-26 by mouth 2 ity of capsule 00:00: (two) [place] 00 times Medical daily. Branch pregabalin 2022-1 Yes 75mg Take 75 mg U nivers 75 mg 0-26 by mouth 2 ity of capsule 00:00: (two) [place] 00 times Medical daily. Branch pregabalin 2022-1 Yes 75mg Take 75 mg U nivers 75 mg 0-26 by mouth 2 ity of capsule 00:00: (two) [place] 00 times Medical daily. Branch pregabalin 2022-1 Yes 75mg Take 75 mg U nivers 75 mg 0-26 by mouth 2 ity of capsule 00:00: (two) [place] 00 times Medical daily. Branch pregabalin 2022-1 Yes 75mg Take 75 mg U nivers 75 mg 0-26 by mouth 2 ity of capsule 00:00: (two) [place] 00 times Medical daily. Branch Pregabalin 2021-09 Yes 75mg Take 1 K[place] y 75 MG oral 0-26 capsule Seybol d Capsule 00:00: (75 mg - 00 total) by Externa mouth 2 l times daily pregabalin 2021-09- No [id number] 75mg Q.5D Take 1 [facility] (Lyrica) 75 0-26 10-27 capsule Heal th MG capsule 00:00: 04:59 (75 mg 00 :00 total) by mouth in the morning and 1 capsule (75 mg total) in the evening. pregabalin 2021-09- No [id number] 75mg Q.5D Take 1 [facility] (Lyrica) 75 0-26 -31 capsule Heal th MG capsule 00:00: 00:00 (75 mg 00 :00 total) by mouth in the morning and 1 capsule (75 mg total) in the evening. tc 2021-09- No [id number] 1mCi 1 [facility] 99m-sulfur 0-07-11 millicurie it y of colloid 14:15: 13:45 , Oral, [place] oral 00 :00 ONCE, 1 Medical solution 1 dose, On Bran h millicurie 07/11/22 at 0915, Routine gabapentin 2021-09- No [facility] (Neurontin) 0-14 10- Health 300 MG 00:00: 00:00 capsule 00 :00 topiramate 2021-09 Yes 25mg Take 25 mg U T (Topamax) 0-11 by mouth. Healt h 25 MG 00:00: tablet 00 topiramate 2021-09 Yes 25mg Q.5D Take 25 mg U T (Topamax) 0-11 by mouth Health 25 MG 00:00: in the tablet 00 morning and 25 mg in the evening. topiramate 2021-09 Yes 25mg Take 25 mg U nivers 25 mg 0-11 by mouth 2 ity of tablet 00:00: (two) [place] 00 times Medical daily. Branch topiramate 2021-09 Yes 25mg Take 25 mg U nivers 25 mg 0-11 by mouth 2 ity of tablet 00:00: (two) [place] 00 times Medical daily. Branch topiramate 2021-09 Yes 25mg Take 25 mg [...] mouth 2 ity of tablet 00:00: (two) [place] 00 times Medical daily. Branch topiramate 2-1 [...] (two) [place] 00 times Medical daily. Branch Topiramate 2021-09- No 25mg Take 1 [place] ey 25 MG oral 0-11 04-10 tablet (25 Se ybold Tablet 00:00: 00:00 mg total) - 00 :00 by mouth 2 Externa times l daily BOTOX 200 2-0 Yes 200U 200 Units. Un yesi unit 06-21 ity of 00:00: 00 Medical Branch BOTOX 200 2021-0 Yes 200U 200 Units. Un yesi unit 06-21 ity of 00:00: 00 Medical Branch BOTOX 200 2-0 Yes 200U 200 Units. Un yesi unit 06-21 ity of 00:00: 00 Medical Branch BOTOX 200 2021-0 Yes 200U 200 Units. Un yesi unit 06-21 ity of 00:00: 00 Medical Branch BOTOX 200 2-0 Yes 200U 200 Units. Un yesi unit 06-21 ity of 00:00: 00 Medical Branch BOTOX 200 2021-0 Yes 200U 200 Units. Un yesi unit 06-21 ity of 00:00: 00 Medical Branch BOTOX 200 2-0 Yes 200U 200 Units. Un yesi unit 06-21 ity of 00:00: 00 Medical Branch BOTOX 200 2021-0 Yes 200U 200 Units. Un yesi unit 06-21 ity of 00:00: 00 Medical Branch BOTOX 200 2-0 Yes 200U 200 Units. Un yesi unit 06-21 ity of 00:00: 00 Medical Branch BOTOX 200 2021-0 Yes 200U 200 Units. Un yesi unit [...] Un yesi unit 06-21 ity of 00:00: [address] Branch Baclofen 5 2021-0 Yes 1{tbl} Q.[id number] Take 1 [facility] MG tablet 06-20 [id number] tablet by Health 00:00: 3D mouth in 00 the morning and 1 tablet at noon and 1 tablet in the evening. Baclofen 5 2021-0 Yes 1{tbl} Q.[id number] Take 1 [facility] MG tablet 06-20 [id number] tablet by Health 00:00: 3D mouth in 00 the morning and 1 tablet at noon and 1 tablet in the evening. Baclofen 5 2021-0 2023- No 1{tbl} Q.[id number] Take 1 [facility] MG tablet 06-20 [id number] tablet by Health 00:00: 00:00 3D mouth in 00 :00 the morning and 1 tablet at noon and 1 tablet in the evening. diphenhydrA 2021-0 Yes 25mg Take 25 mg [facility] MINE 06-15 by mouth ity of (BENADRYL) 11:53: every 6 [place] 25 mg 19 (six) Medical capsule hours as Branch needed for Allergies. mecobalamin 2021-0 Yes Take by Uni vers (B12 ACTIVE 06-15 mouth. ity of ORAL) 11:53: [address] Branch cholecalcif 0 Yes Take by Uni vers deb, 06-15 mouth. ity of vitamin D3, 11:53: [place] (D3 Medical ORAL) Branch mv,li,iron 0 Yes Take by Uni vers ,mn/folic 06-15 mouth. ity of acid/chol 11:53: [place] (HAIR-SKIN- Medical NAILS, Branch PABA, ORAL) diphenhydrA 2021-0 Yes 25mg Take 25 mg [facility] MINE 06-15 by mouth ity of (BENADRYL) 11:53: every 6 [place] 25 mg 19 (six) Medical capsule hours as Branch needed for Allergies. mecobalamin 2-0 Yes Take by Uni vers (B12 ACTIVE 06-15 mouth. ity of ORAL) 11:53: [address] Branch cholecalcif 2021-0 Yes Take by [facility] deb, 06-15 mouth. ity of vitamin D3, 11:53: [place] (D3-2000 19 Medical ORAL) Branch mv,li,iron 0 Yes Take by [facility] ,mn/folic 06-15 mouth. ity of acid/chol 11:53: [place] (HAIR-SKIN- 19 Medical NAILS, Branch PABA, ORAL) diphenhydrA 2-0 Yes 25mg Take 25 mg [facility] MINE 9-23 by mouth ity of (BENADRYL) 11:53: every 6 [place] 25 mg 19 (six) Medical capsule hours as Branch needed for Allergies. mecobalamin 2021-0 Yes Take by [facility] (B12 ACTIVE 06-15 mouth. ity of ORAL) 11:53: [place] [address] Medical Branch cholecalcif 0 Yes Take by [facility] deb, 06-15 mouth. ity of vitamin D3, 11:53: [place] (D3 Medical ORAL) Branch mv,li,iron Yes Take by [facility] ,mn/folic - mouth. ity of acid/chol 11:53: [place] (HAIR-SKIN- 19 Medical NAILS, Branch PABA, ORAL) diphenhydrA 2-0 Yes 25mg Take 25 mg [facility] MINE 9 by mouth ity of (BENADRYL) 11:53: every 6 [place] 25 mg 19 (six) Medical capsule hours as Branch needed for Allergies. mecobalamin 2021-0 Yes Take by [facility] (B12 ACTIVE 06-15 mouth. ity of ORAL) 11:53: [address] Branch cholecalcif 0 Yes Take by [facility] deb, 06-15 mouth. ity of vitamin D3, 11:53: [place] (D3 Medical ORAL) Branch mv,li,iron 0 Yes Take by [facility] ,mn/folic 06-15 mouth. ity of acid/chol 11:53: [place] (HAIR-SKIN- 19 Medical NAILS, Branch PABA, ORAL) diphenhydrA 2-0 Yes 25mg Take 25 mg [facility] MINE 9-23 by mouth ity of (BENADRYL) 11:53: every 6 [place] 25 mg 19 (six) Medical capsule hours as Branch needed for Allergies. mecobalamin 2-0 Yes Take by [facility] (B12 ACTIVE 06-15 mouth. ity of ORAL) 11:53: [place] 19 [facility] Branch cholecalcif 2021-0 Yes Take by [facility] deb, 06-15 mouth. ity of vitamin D3, 11:53: [place] (D3 Medical ORAL) Branch mv,li,iron 2021-0 Yes Take by [facility] ,mn/folic 06-15 mouth. ity of acid/chol 11:53: [place] (HAIR-SKIN- 19 Medical NAILS, Branch PABA, ORAL) diphenhydrA 2-0 Yes 25mg Take 25 mg [facility] MINE 06-15 by mouth ity of (BENADRYL) 11:53: every 6 [place] 25 mg 19 (six) Medical capsule hours as Branch needed for Allergies. mecobalamin 2021-0 Yes Take by [facility] (B12 ACTIVE 06-15 mouth. ity of ORAL) 11:53: [place] [address] Medical Branch cholecalcif 2021-0 Yes Take by [facility] deb, 06-15 mouth. ity of vitamin D3, 11:53: [place] (D3 Medical ORAL) Branch mv,li,iron 0 Yes Take by [facility] ,mn/folic 06-15 mouth. ity of acid/chol 11:53: [place] (HAIR-SKIN- 19 Medical NAILS, Branch PABA, ORAL) diphenhydrA 2-0 Yes 25mg Take 25 mg [facility] MINE 06-15 by mouth ity of (BENADRYL) 11:53: every 6 [place] 25 mg 19 (six) Medical capsule hours as Branch needed for Allergies. mecobalamin 2021-0 Yes Take by [facility] (B12 ACTIVE 06-15 mouth. ity of ORAL) 11:53: [place] [address] Medical Branch cholecalcif 2021-0 Yes Take by [facility] deb, 06-15 mouth. ity of vitamin D3, 11:53: [place] (D3 Medical ORAL) Branch mv,li,iron 2021-0 Yes Take by [facility] ,mn/folic 06-15 mouth. ity of acid/chol 11:53: [place] (HAIR-SKIN- 19 Medical NAILS, Branch PABA, ORAL) diphenhydrA 2-0 Yes 25mg Take 25 mg [facility] MINE 9-23 by mouth ity of (BENADRYL) 11:53: every 6 [place] 25 mg 19 (six) Medical capsule hours as Branch needed for Allergies. mecobalamin 2022-0 Yes Take by [facility] (B12 ACTIVE 06-15 mouth. ity of ORAL) 11:53: [place] [address] Medical Branch cholecalcif 2021-0 Yes Take by [facility] deb, 06-15 mouth. ity of vitamin D3, 11:53: [place] (D3 Medical ORAL) Branch mv,li,iron 0 Yes Take by [facility] ,mn/folic 06-15 mouth. ity of acid/chol 11:53: [place] (HAIR-SKIN- 19 Medical NAILS, Branch PABA, ORAL) diphenhydrA 2022-0 Yes 25mg Take 25 mg [facility] MINE 9-23 by mouth ity of (BENADRYL) 11:53: every 6 [place] 25 mg 19 (six) Medical capsule hours as Branch needed for Allergies. mecobalamin 2-0 Yes Take by [facility] (B12 ACTIVE 06-15 mouth. ity of ORAL) 11:53: [place] [address] Medical Branch cholecalcif 0 Yes Take by [facility] deb, 06-15 mouth. ity of vitamin D3, 11:53: [place] (D3 Medical ORAL) Branch mv,li,iron 0 Yes Take by [facility] ,mn/folic 06-15 mouth. ity of acid/chol 11:53: [place] (HAIR-SKIN- 19 Medical NAILS, Branch PABA, ORAL) diphenhydrA 2-0 Yes 25mg Take 25 mg [facility] MINE - by mouth ity of (BENADRYL) 11:53: every 6 [place] 25 mg 19 (six) Medical capsule hours as Branch needed for Allergies. mecobalamin 2-0 Yes Take by [facility] (B12 ACTIVE 06-15 mouth. ity of ORAL) 11:53: [place] [address] Medical Branch cholecalcif 2021-0 Yes Take by [facility] deb, 06-15 mouth. ity of vitamin D3, 11:53: [place] (D3 Medical ORAL) Branch mv,li,iron 0 Yes Take by [facility] ,mn/folic - mouth. ity of acid/chol 11:53: [place] (HAIR-SKIN- 19 Medical NAILS, Branch PABA, ORAL) diphenhydrA 2-0 Yes 25mg Take 25 mg [facility] MINE 9-23 by mouth ity of (BENADRYL) 11:53: every 6 [place] 25 mg 19 (six) Medical capsule hours as Branch needed for Allergies. mecobalamin 2022-0 Yes Take by [facility] (B12 ACTIVE 06-15 mouth. ity of ORAL) 11:53: [address] Branch cholecalcif 2021-0 Yes Take by [facility] deb, 06-15 mouth. ity of vitamin D3, 11:53: [place] (D3 Medical ORAL) Branch mv,li,iron 0 Yes Take by [facility] ,mn/folic 06-15 mouth. ity of acid/chol 11:53: [place] (HAIR-SKIN- 19 Medical NAILS, Branch PABA, ORAL) diphenhydrA 2021-0 Yes 25mg Take 25 mg [facility] MINE 06-15 by mouth ity of (BENADRYL) 11:53: every 6 [place] 25 mg 19 (six) Medical capsule hours as Branch needed for Allergies. mecobalamin 2021-0 Yes Take by [facility] (B12 ACTIVE 06-15 mouth. ity of ORAL) 11:53: [address] Branch cholecalcif 0 Yes Take by [facility] deb, 06-15 mouth. ity of vitamin D3, 11:53: [place] (D3 Medical ORAL) Branch mv,il,iron 0 Yes Take by [facility] ,mn/folic 06-15 mouth. ity of acid/chol 11:53: [place] (HAIR-SKIN- 19 Medical NAILS, Branch PABA, ORAL) diphenhydrA 2021-0 Yes 25mg Take 25 mg [facility] MINE 06-15 by mouth ity of (BENADRYL) 11:53: every 6 [place] 25 mg 19 (six) Medical capsule hours as Branch needed for Allergies. mecobalamin 2022-0 Yes Take by [facility] (B12 ACTIVE 06-15 mouth. ity of ORAL) 11:53: [address] Branch cholecalcif 2021-0 Yes Take by [facility] deb, 06-15 mouth. ity of vitamin D3, 11:53: [place] (D3 Medical ORAL) Branch mv,li,iron 0 Yes Take by [facility] ,mn/folic 06-15 mouth. ity of acid/chol 11:53: [place] (HAIR-SKIN- 19 Medical NAILS, Branch PABA, ORAL) diphenhydrA 2022-0 Yes 25mg Take 25 mg [facility] MINE 9-23 by mouth ity of (BENADRYL) 11:53: every 6 [place] 25 mg 19 (six) Medical capsule hours as Branch needed for Allergies. mecobalamin 2022-0 Yes Take by [facility] (B12 ACTIVE 06-15 mouth. ity of ORAL) 11:53: [place] [address] Medical Branch cholecalcif 2021-0 Yes Take by [facility] deb, 06-15 mouth. ity of vitamin D3, 11:53: [place] (D3 Medical ORAL) Branch mv,li,iron 0 Yes Take by [facility] ,mn/folic - mouth. ity of acid/chol 11:53: [place] (HAIR-SKIN- 19 Medical NAILS, Branch PABA, ORAL) diphenhydrA 2-0 Yes 25mg Take 25 mg [facility] MINE 9-23 by mouth ity of (BENADRYL) 11:53: every 6 [place] 25 mg 19 (six) Medical capsule hours as Branch needed for Allergies. mecobalamin 2022-0 Yes Take by [facility] (B12 ACTIVE 06-15 mouth. ity of ORAL) 11:53: [address] Branch cholecalcif 0 Yes Take by [facility] deb, 06-15 mouth. ity of vitamin D3, 11:53: [place] (D3 Medical ORAL) Branch mv,li,iron 0 Yes Take by [facility] ,mn/folic - mouth. ity of acid/chol 11:53: [place] (HAIR-SKIN- 19 Medical NAILS, Branch PABA, ORAL) diphenhydrA 2-0 Yes 25mg Take 25 mg [facility] MINE 9-23 by mouth ity of (BENADRYL) 11:53: every 6 [place] 25 mg 19 (six) Medical capsule hours as Branch needed for Allergies. mecobalamin 2022-0 Yes Take by [facility] (B12 ACTIVE - mouth. ity of ORAL) 11:53: [address] Branch cholecalcif 2021-0 Yes Take by [facility] deb, - mouth. ity of vitamin D3, 11:53: [place] (D3 Medical ORAL) Branch mv,li,iron 0 Yes Take by [facility] ,mn/folic 06-15 mouth. ity of acid/chol 11:53: [place] (HAIR-SKIN- 19 Medical NAILS, Branch PABA, ORAL) diphenhydrA 2021-0 Yes 25mg Take 25 mg [facility] MINE 06-15 by mouth ity of (BENADRYL) 11:53: every 6 [place] 25 mg 19 (six) Medical capsule hours as Branch needed for Allergies. mecobalamin 2021-0 Yes Take by [facility] (B12 ACTIVE 06-15 mouth. ity of ORAL) 11:53: [place] [address] Medical Branch cholecalcif 0 Yes Take by [facility] deb, 06-15 mouth. ity of vitamin D3, 11:53: [place] (D3 Medical ORAL) Branch mv,li,iron Yes Take by [facility] ,mn/folic 06-15 mouth. ity of acid/chol 11:53: [place] (HAIR-SKIN- 19 Medical NAILS, Branch PABA, ORAL) diphenhydrA 2021-0 Yes 25mg Take 25 mg [facility] MINE 06-15 by mouth ity of (BENADRYL) 11:53: every 6 [place] 25 mg 19 (six) Medical capsule hours as Branch needed for Allergies. mecobalamin 2021-0 Yes Take by [facility] (B12 ACTIVE 06-15 mouth. ity of ORAL) 11:53: [place] [address] Medical Branch cholecalcif 0 Yes Take by [facility] deb, 06-15 mouth. ity of vitamin D3, 11:53: [place] (D3 Medical ORAL) Branch mv,li,iron Yes Take by [facility] ,mn/folic 06-15 mouth. ity of acid/chol 11:53: [place] (HAIR-SKIN- 19 Medical NAILS, Branch PABA, ORAL) diphenhydrA 2-0 Yes 25mg Take 25 mg [facility] MINE 9 by mouth ity of (BENADRYL) 11:53: every 6 [place] 25 mg 19 (six) Medical capsule hours as Branch needed for Allergies. mecobalamin 2022-0 Yes Take by [facility] (B12 ACTIVE 06-15 mouth. ity of ORAL) 11:53: [place] [address] Medical Branch cholecalcif 2022-0 Yes Take by [facility] deb, 06-15 mouth. ity of vitamin D3, 11:53: [place] (D3 Medical ORAL) Branch mv,li,iron 2021-0 Yes Take by [facility] ,mn/folic 06-15 mouth. ity of acid/chol 11:53: [place] (HAIR-SKIN- 19 Medical NAILS, Branch PABA, ORAL) diphenhydrA 2-0 Yes 25mg Take 25 mg [facility] MINE 06-15 by mouth ity of (BENADRYL) 11:53: every 6 [place] 25 mg 19 (six) Medical capsule hours as Branch needed for Allergies. mecobalamin 2-0 Yes Take by [facility] (B12 ACTIVE 06-15 mouth. ity of ORAL) 11:53: [place] [address] Medical Branch cholecalcif 2021-0 Yes Take by [facility] deb, 06-15 mouth. ity of vitamin D3, 11:53: [place] (D3 Medical ORAL) Branch mv,li,iron 0 Yes Take by [facility] ,mn/folic 06-15 mouth. ity of acid/chol 11:53: [place] (HAIR-SKIN- 19 Medical NAILS, Branch PABA, ORAL) diphenhydrA 2-0 Yes 25mg Take 25 mg [facility] MINE 06-15 by mouth ity of (BENADRYL) 11:53: every 6 [place] 25 mg 19 (six) Medical capsule hours as Branch needed for Allergies. mecobalamin 2-0 Yes Take by [facility] (B12 ACTIVE 06-15 mouth. ity of ORAL) 11:53: [address] Branch cholecalcif 2-0 Yes Take by [facility] deb, 06-15 mouth. ity of vitamin D3, 11:53: [place] (D3 Medical ORAL) Branch mv,li,iron 2021-0 Yes Take by [facility] ,mn/folic 06-15 mouth. ity of acid/chol 11:53: [place] (HAIR-SKIN- 19 Medical NAILS, Branch PABA, ORAL) diphenhydrA 2-0 Yes 25mg Take 25 mg [facility] MINE 9-23 by mouth ity of (BENADRYL) 11:53: every 6 [place] 25 mg 19 (six) Medical capsule hours as Branch needed for Allergies. mecobalamin 2022-0 Yes Take by [facility] (B12 ACTIVE 06-15 mouth. ity of ORAL) 11:53: [place] [address] Medical Branch cholecalcif 0 Yes Take by [facility] deb, 06-15 mouth. ity of vitamin D3, 11:53: [place] (D3 Medical ORAL) Branch mv,li,iron Yes Take by [facility] ,mn/folic 06-15 mouth. ity of acid/chol 11:53: [place] (HAIR-SKIN- 19 Medical NAILS, Branch PABA, ORAL) diphenhydrA 2021-0 Yes 25mg Take 25 mg [facility] MINE 06-15 by mouth ity of (BENADRYL) 11:53: every 6 [place] 25 mg 19 (six) Medical capsule hours as Branch needed for Allergies. mecobalamin 2021-0 Yes Take by [facility] (B12 ACTIVE 06-15 mouth. ity of ORAL) 11:53: [address] Branch cholecalcif Yes Take by [facility] deb, 06-15 mouth. ity of vitamin D3, 11:53: [place] (D3 Medical ORAL) Branch mv,li,iron Yes Take by [facility] ,mn/folic 06-15 mouth. ity of acid/chol 11:53: [place] (HAIR-SKIN- 19 Medical NAILS, Branch PABA, ORAL) diphenhydrA 2021-0 Yes 25mg Take 25 mg [facility] MINE 06-15 by mouth ity of (BENADRYL) 11:53: every 6 [place] 25 mg 19 (six) Medical capsule hours as Branch needed for Allergies. mecobalamin 2021-0 Yes Take by [facility] (B12 ACTIVE 06-15 mouth. ity of ORAL) 11:53: [address] Branch cholecalcif 2021-0 Yes Take by [facility] deb, 06-15 mouth. ity of vitamin D3, 11:53: [place] (D3 Medical ORAL) Branch mv,li,iron 0 Yes Take by [facility] ,mn/folic - mouth. ity of acid/chol 11:53: [place] (HAIR-SKIN- 19 Medical NAILS, Branch PABA, ORAL) diphenhydrA 2021-0 Yes 25mg Take 25 mg [facility] MINE 06-15 by mouth ity of (BENADRYL) 11:53: every 6 [place] 25 mg 19 (six) Medical capsule hours as Branch needed for Allergies. mecobalamin 2022-0 Yes Take by [facility] (B12 ACTIVE 06-15 mouth. ity of ORAL) 11:53: [place] [address] Medical Branch cholecalcif 2021-0 Yes Take by [facility] deb, 06-15 mouth. ity of vitamin D3, 11:53: [place] (D3 19 Medical ORAL) Branch mv,li,iron 2021-0 Yes Take by [facility] ,mn/folic - mouth. ity of acid/chol 11:53: [place] (HAIR-SKIN- 19 Medical NAILS, Branch PABA, ORAL) diphenhydrA 2022-0 Yes 25mg Take 25 mg [facility] MINE 06-15 by mouth ity of (BENADRYL) 11:53: every 6 [place] 25 mg 19 (six) Medical capsule hours as Branch needed for Allergies. mecobalamin 2022-0 Yes Take by [facility] (B12 ACTIVE 06-15 mouth. ity of ORAL) 11:53: [place] [address] Medical Branch cholecalcif 2021-0 Yes Take by [facility] deb, 06-15 mouth. ity of vitamin D3, 11:53: [place] (D3 Medical ORAL) Branch mv,li,iron 2021-0 Yes Take by [facility] ,mn/folic - mouth. ity of acid/chol 11:53: [place] (HAIR-SKIN- 19 Medical NAILS, Branch PABA, ORAL) diphenhydrA 2022-0 Yes 25mg Take 25 mg [facility] MINE 06-15 by mouth ity of (BENADRYL) 11:53: every 6 [place] 25 mg 19 (six) Medical capsule hours as Branch needed for Allergies. mecobalamin 2022-0 Yes Take by [facility] (B12 ACTIVE 06-15 mouth. ity of ORAL) 11:53: [place] [address] Medical Branch cholecalcif 2021-0 Yes Take by [facility] deb, - mouth. ity of vitamin D3, 11:53: [place] (D3 19 Medical ORAL) Branch mv,li,iron 2022-0 Yes Take by [facility] ,mn/folic 9- mouth. ity of acid/chol 11:53: [place] (HAIR-SKIN- 19 Medical NAILS, Branch PABA, ORAL) diphenhydrA 2022-0 Yes 25mg Take 25 mg [facility] MINE 9-23 by mouth ity of (BENADRYL) 11:53: every 6 [place] 25 mg 19 (six) Medical capsule hours as Branch needed for Allergies. mecobalamin 2022-0 Yes Take by [facility] (B12 ACTIVE 06-15 mouth. ity of ORAL) 11:53: [place] [address] Medical Branch cholecalcif 2021-0 Yes Take by [facility] deb, 06-15 mouth. ity of vitamin D3, 11:53: [place] (D3 Medical ORAL) Branch mv,li,iron 2021-0 Yes Take by [facility] ,mn/folic 06-15 mouth. ity of acid/chol 11:53: [place] (HAIR-SKIN- 19 Medical NAILS, Branch PABA, ORAL) diphenhydrA 2-0 Yes 25mg Take 25 mg [facility] MINE 9-23 by mouth ity of (BENADRYL) 11:53: every 6 [place] 25 mg 19 (six) Medical capsule hours as Branch needed for Allergies. mecobalamin 2022-0 Yes Take by [facility] (B12 ACTIVE 06-15 mouth. ity of ORAL) 11:53: [place] [address] Medical Branch cholecalcif 2021-0 Yes Take by [facility] deb, 06-15 mouth. ity of vitamin D3, 11:53: [place] (D3 Medical ORAL) Branch mv,li,iron 2021-0 Yes Take by [facility] ,mn/folic 06-15 mouth. ity of acid/chol 11:53: [place] (HAIR-SKIN- 19 Medical NAILS, Branch PABA, ORAL) diphenhydrA 2-0 Yes 25mg Take 25 mg [facility] MINE 9-23 by mouth ity of (BENADRYL) 11:53: every 6 [place] 25 mg 19 (six) Medical capsule hours as Branch needed for Allergies. mecobalamin 2022-0 Yes Take by [facility] (B12 ACTIVE 06-15 mouth. ity of ORAL) 11:53: [place] [address] Medical Branch cholecalcif 2021-0 Yes Take by [facility] deb, 06-15 mouth. ity of vitamin D3, 11:53: [place] (D3 Medical ORAL) Branch mv,li,iron 2022-0 Yes Take by [facility] ,mn/folic 06-15 mouth. ity of acid/chol 11:53: [place] (HAIR-SKIN- 19 Medical NAILS, Branch PABA, ORAL) diphenhydrA 2021-0 Yes 25mg Take 25 mg [facility] MINE 06-15 by mouth ity of (BENADRYL) 11:53: every 6 [place] 25 mg 19 (six) Medical capsule hours as Branch needed for Allergies. mecobalamin 2021-0 Yes Take by [facility] (B12 ACTIVE 06-15 mouth. ity of ORAL) 11:53: [place] [address] Medical Branch cholecalcif 2021-0 Yes Take by [facility] deb, 06-15 mouth. ity of vitamin D3, 11:53: [place] (D3-1999 19 Medical ORAL) Branch mv,li,iron Yes Take by [facility] ,mn/folic 06-15 mouth. ity of acid/chol 11:53: [place] (HAIR-SKIN- 19 Medical NAILS, Branch PABA, ORAL) diphenhydrA 2021-0 Yes 25mg Take 25 mg [facility] MINE 06-15 by mouth ity of (BENADRYL) 11:53: every 6 [place] 25 mg 19 (six) Medical capsule hours as Branch needed for Allergies. mecobalamin 2021-0 Yes Take by [facility] (B12 ACTIVE 06-15 mouth. ity of ORAL) 11:53: [address] Branch cholecalcif 0 Yes Take by [facility] deb, 06-15 mouth. ity of vitamin D3, 11:53: [place] (D3-1999 Medical ORAL) Branch mv,li,iron 0 Yes Take by [facility] ,mn/folic 06-15 mouth. ity of acid/chol 11:53: [place] (HAIR-SKIN- 19 Medical NAILS, Branch PABA, ORAL) diphenhydrA 2021-0 Yes 25mg Take 25 mg [facility] MINE 9 by mouth ity of (BENADRYL) 11:53: every 6 [place] 25 mg 19 (six) Medical capsule hours as Branch needed for Allergies. mecobalamin 2-0 Yes Take by [facility] (B12 ACTIVE 06-15 mouth. ity of ORAL) 11:53: [address] Branch cholecalcif 2021-0 Yes Take by [facility] deb, 06-15 mouth. ity of vitamin D3, 11:53: [place] (D3 Medical ORAL) Branch mv,li,iron 2021-0 Yes Take by [facility] ,mn/folic 06-15 mouth. ity of acid/chol 11:53: [place] (HAIR-SKIN- 19 Medical NAILS, Branch PABA, ORAL) diphenhydrA 2-0 Yes 25mg Take 25 mg [facility] MINE 9-23 by mouth ity of (BENADRYL) 11:53: every 6 [place] 25 mg 19 (six) Medical capsule hours as Branch needed for Allergies. mecobalamin 2-0 Yes Take by [facility] (B12 ACTIVE 06-15 mouth. ity of ORAL) 11:53: [address] Branch cholecalcif 2021-0 Yes Take by [facility] deb, 06-15 mouth. ity of vitamin D3, 11:53: [place] (D3 Medical ORAL) Branch mv,li,iron 0 Yes Take by [facility] ,mn/folic 06-15 mouth. ity of acid/chol 11:53: [place] (HAIR-SKIN- 19 Medical NAILS, Branch PABA, ORAL) diphenhydrA 2-0 Yes 25mg Take 25 mg [facility] MINE 06-15 by mouth ity of (BENADRYL) 11:53: every 6 [place] 25 mg 19 (six) Medical capsule hours as Branch needed for Allergies. mecobalamin 2-0 Yes Take by [facility] (B12 ACTIVE 06-15 mouth. ity of ORAL) 11:53: [address] cholecalcif 2021-0 Yes Take by [facility] deb, 06-15 mouth. ity of vitamin D3, 11:53: [place] (D3 Medical ORAL) Branch mv,li,iron 2021-0 Yes Take by [facility] ,mn/folic 06-15 mouth. ity of acid/chol 11:53: [place] (HAIR-SKIN- 19 Medical NAILS, Branch PABA, ORAL) diphenhydrA 2-0 Yes 25mg Take 25 mg [facility] MINE 9-23 by mouth ity of (BENADRYL) 11:53: every 6 [place] 25 mg 19 (six) Medical capsule hours as Branch needed for Allergies. mecobalamin 2022-0 Yes Take by [facility] (B12 ACTIVE 06-15 mouth. ity of ORAL) 11:53: [place] [address] Medical Branch cholecalcif 0 Yes Take by [facility] deb, 06-15 mouth. ity of vitamin D3, 11:53: [place] (D3 Medical ORAL) Branch mv,li,iron Yes Take by [facility] ,mn/folic 06-15 mouth. ity of acid/chol 11:53: [place] (HAIR-SKIN- 19 Medical NAILS, Branch PABA, ORAL) diphenhydrA 2-0 Yes 25mg Take 25 mg [facility] MINE 06-15 by mouth ity of (BENADRYL) 11:53: every 6 [place] 25 mg 19 (six) Medical capsule hours as Branch needed for Allergies. mecobalamin 2021-0 Yes Take by [facility] (B12 ACTIVE 06-15 mouth. ity of ORAL) 11:53: [address] Branch cholecalcif 0 Yes Take by [facility] deb, 06-15 mouth. ity of vitamin D3, 11:53: [place] (D3 Medical ORAL) Branch mv,li,iron Yes Take by [facility] ,mn/folic 06-15 mouth. ity of acid/chol 11:53: [place] (HAIR-SKIN- 19 Medical NAILS, Branch PABA, ORAL) diphenhydrA 2021-0 Yes 25mg Take 25 mg [facility] MINE 06-15 by mouth ity of (BENADRYL) 11:53: every 6 [place] 25 mg 19 (six) Medical capsule hours as Branch needed for Allergies. mecobalamin 2021-0 Yes Take by [facility] (B12 ACTIVE 06-15 mouth. ity of ORAL) 11:53: [address] Branch cholecalcif 2021-0 Yes Take by [facility] deb, 06-15 mouth. ity of vitamin D3, 11:53: [place] (D3 Medical ORAL) Branch mv,li,iron 0 Yes Take by [facility] ,mn/folic 06-15 mouth. ity of acid/chol 11:53: [place] (HAIR-SKIN- 19 Medical NAILS, Branch PABA, ORAL) diphenhydrA 2-0 Yes 25mg Take 25 mg [facility] MINE 06-15 by mouth ity of (BENADRYL) 11:53: every 6 [place] 25 mg 19 (six) Medical capsule hours as Branch needed for Allergies. mecobalamin 2022-0 Yes Take by [facility] (B12 ACTIVE 9- mouth. ity of ORAL) 11:53: [place] [address] Medical Branch cholecalcif 2021-0 Yes Take by [facility] deb, 9- mouth. ity of vitamin D3, 11:53: [place] (D3-1999 19 Medical ORAL) Branch mv,li,iron 202-0 Yes Take by [facility] ,mn/folic 9- mouth. ity of acid/chol 11:53: [place] (HAIR-SKIN- 19 Medical NAILS, Branch PABA, ORAL) diphenhydrA 2022-0 Yes 25mg Take 25 mg [facility] MINE 9-23 by mouth ity of (BENADRYL) 11:53: every 6 [place] 25 mg 19 (six) Medical capsule hours as Branch needed for Allergies. mecobalamin 2022-0 Yes Take by [facility] (B12 ACTIVE 9- mouth. ity of ORAL) 11:53: [place] [address] [facility] Branch cholecalcif 2021-0 Yes Take by [facility] deb, - mouth. ity of vitamin D3, 11:53: [place] (D3 Medical ORAL) Branch mv,li,iron 2021-0 Yes Take by [facility] ,mn/folic 9-23 mouth. ity of acid/chol 11:53: [place] (HAIR-SKIN- 19 Medical NAILS, Branch PABA, ORAL) diphenhydrA 2022-0 Yes 25mg Take 25 mg [facility] MINE 9- by mouth ity of (BENADRYL) 11:53: every 6 [place] 25 mg 19 (six) Medical capsule hours as Branch needed for Allergies. mecobalamin 2022-0 Yes Take by [facility] (B12 ACTIVE 9- mouth. ity of ORAL) 11:53: [place] [address] [facility] Branch cholecalcif 2-0 Yes Take by [facility] deb, 9-23 mouth. ity of vitamin D3, 11:53: [place] (D3-1999 19 Medical ORAL) Branch mv,li,iron 2021-0 Yes Take by [facility] ,mn/folic 9-23 mouth. ity of acid/chol 11:53: [place] (HAIR-SKIN- 19 Medical NAILS, Branch PABA, ORAL) diphenhydrA 2022-0 Yes 25mg Take 25 mg [facility] MINE 9-23 by mouth ity of (BENADRYL) 11:53: every 6 [place] 25 mg 19 (six) Medical capsule hours as Branch needed for Allergies. mecobalamin 2022-0 Yes Take by [facility] (B12 ACTIVE 9 mouth. ity of ORAL) 11:53: [address] Branch cholecalcif 2021-0 Yes Take by [facility] deb, 06-15 mouth. ity of vitamin D3, 11:53: [place] (D3 Medical ORAL) Branch mv,li,iron 0 Yes Take by [facility] ,mn/folic - mouth. ity of acid/chol 11:53: [place] (HAIR-SKIN- 19 Medical NAILS, Branch PABA, ORAL) diphenhydrA 2-0 Yes 25mg Take 25 mg [facility] MINE 9-23 by mouth ity of (BENADRYL) 11:53: every 6 [place] 25 mg 19 (six) Medical capsule hours as Branch needed for Allergies. mecobalamin 2-0 Yes Take by [facility] (B12 ACTIVE 06-15 mouth. ity of ORAL) 11:53: [address] Branch cholecalcif 0 Yes Take by [facility] deb, 06-15 mouth. ity of vitamin D3, 11:53: [place] (D3 Medical ORAL) Branch mv,li,iron 0 Yes Take by [facility] ,mn/folic 9-23 mouth. ity of acid/chol 11:53: [place] (HAIR-SKIN- 19 Medical NAILS, Branch PABA, ORAL) diphenhydrA 2-0 Yes 25mg Take 25 mg [facility] MINE 9-23 by mouth ity of (BENADRYL) 11:53: every 6 [place] 25 mg 19 (six) Medical capsule hours as Branch needed for Allergies. mecobalamin 2022-0 Yes Take by [facility] (B12 ACTIVE - mouth. ity of ORAL) 11:53: [address] Branch cholecalcif 2021-0 Yes Take by [facility] deb, 9- mouth. ity of vitamin D3, 11:53: [place] (D3 Medical ORAL) Branch mv,li,iron 0 Yes Take by [facility] ,mn/folic 9-23 mouth. ity of acid/chol 11:53: [place] (HAIR-SKIN- 19 Medical NAILS, Branch PABA, ORAL) diphenhydrA 2022-0 Yes 25mg Take 25 mg [facility] MINE 9 by mouth ity of (BENADRYL) 11:53: every 6 [place] 25 mg 19 (six) Medical capsule hours as Branch needed for Allergies. mecobalamin 2-0 Yes Take by [facility] (B12 ACTIVE 06-15 mouth. ity of ORAL) 11:53: [place] [address] [facility] Branch cholecalcif 2021-0 Yes Take by [facility] deb, 06-15 mouth. ity of vitamin D3, 11:53: [place] (D3 Medical ORAL) Branch mv,li,iron Yes Take by [facility] ,mn/folic 06-15 mouth. ity of acid/chol 11:53: [place] (HAIR-SKIN- 19 Medical NAILS, Branch PABA, ORAL) diphenhydrA 2-0 Yes 25mg Take 25 mg [facility] MINE 06-15 by mouth ity of (BENADRYL) 11:53: every 6 [place] 25 mg 19 (six) Medical capsule hours as Branch needed for Allergies. mecobalamin 2021-0 Yes Take by [facility] (B12 ACTIVE 06-15 mouth. ity of ORAL) 11:53: [address] Branch cholecalcif 2021-0 Yes Take by [facility] deb, 06-15 mouth. ity of vitamin D3, 11:53: [place] (D3-1999 Medical ORAL) Branch mv,li,iron Yes Take by [facility] ,mn/folic 06-15 mouth. ity of acid/chol 11:53: [place] (HAIR-SKIN- 19 Medical NAILS, Branch PABA, ORAL) diphenhydrA 2-0 Yes 25mg Take 25 mg [facility] MINE 9 by mouth ity of (BENADRYL) 11:53: every 6 [place] 25 mg 19 (six) Medical capsule hours as Branch needed for Allergies. mecobalamin 2022-0 Yes Take by [facility] (B12 ACTIVE 06-15 mouth. ity of ORAL) 11:53: [address] Branch cholecalcif 0 Yes Take by [facility] vers deb, 06-15 mouth. ity of vitamin D3, 11:53: [place] (D3 Medical ORAL) Branch mv,li,iron 2021-0 Yes Take by [facility] ,mn/folic 9-23 mouth. ity of acid/chol 11:53: [place] (HAIR-SKIN- 19 Medical NAILS, Branch PABA, ORAL) diphenhydrA 2-0 Yes 25mg Take 25 mg [facility] MINE 9-23 by mouth ity of (BENADRYL) 11:53: every 6 [place] 25 mg 19 (six) Medical capsule hours as Branch needed for Allergies. mecobalamin 2-0 Yes Take by [facility] (B12 ACTIVE 06-15 mouth. ity of ORAL) 11:53: [address] Branch cholecalcif 0 Yes Take by [facility] deb, 06-15 mouth. ity of vitamin D3, 11:53: [place] (D3 Medical ORAL) Branch mv,li,iron 0 Yes Take by [facility] ,mn/folic 9-23 mouth. ity of acid/chol 11:53: [place] (HAIR-SKIN- 19 Medical NAILS, Branch PABA, ORAL) diphenhydrA 2-0 Yes 25mg Take 25 mg [facility] MINE 9-23 by mouth ity of (BENADRYL) 11:53: every 6 [place] 25 mg 19 (six) Medical capsule hours as Branch needed for Allergies. mecobalamin 2-0 Yes Take by [facility] (B12 ACTIVE 9- mouth. ity of ORAL) 11:53: [address] Branch cholecalcif 2021-0 Yes Take by [facility] vers deb, 06-15 mouth. ity of vitamin D3, 11:53: [place] (D3 Medical ORAL) Branch mv,li,iron 0 Yes Take by [facility] ,mn/folic 9-23 mouth. ity of acid/chol 11:53: [place] (HAIR-SKIN- 19 Medical NAILS, Branch PABA, ORAL) diphenhydrA 2-0 Yes 25mg Take 25 mg [facility] MINE 9-23 by mouth ity of (BENADRYL) 11:53: every 6 [place] 25 mg 19 (six) Medical capsule hours as Branch needed for Allergies. mecobalamin 2022-0 Yes Take by [facility] (B12 ACTIVE 9-23 mouth. ity of ORAL) 11:53: [place] [address] Medical Branch cholecalcif 0 Yes Take by [facility] vers deb, 06-15 mouth. ity of vitamin D3, 11:53: [place] (D3 Medical ORAL) Branch mv,li,iron 0 Yes Take by [facility] vers ,mn/folic 06-15 mouth. ity of acid/chol 11:53: [place] (HAIR-SKIN- 19 Medical NAILS, Branch PABA, ORAL) diphenhydrA 2021-0 Yes 25mg Take 25 mg [facility] MINE 9-23 by mouth ity of (BENADRYL) 11:53: every 6 [place] 25 mg 19 (six) Medical capsule hours as Branch needed for Allergies. mecobalamin 2021-0 Yes Take by [facility] (B12 ACTIVE 06-15 mouth. ity of ORAL) 11:53: [address] Branch cholecalcif 0 Yes Take by [facility] vers deb, 06-15 mouth. ity of vitamin D3, 11:53: [place] (D3 Medical ORAL) Branch mv,li,iron 0 Yes Take by [facility] ,mn/folic 06-15 mouth. ity of acid/chol 11:53: [place] (HAIR-SKIN- 19 Medical NAILS, Branch PABA, ORAL) diphenhydrA 2021-0 Yes 25mg Take 25 mg [facility] MINE 06-15 by mouth ity of (BENADRYL) 11:53: every 6 [place] 25 mg 19 (six) Medical capsule hours as Branch needed for Allergies. mecobalamin 2021-0 Yes Take by [facility] (B12 ACTIVE 06-15 mouth. ity of ORAL) 11:53: [address] Branch cholecalcif 2021-0 Yes Take by [facility] deb, 06-15 mouth. ity of vitamin D3, 11:53: [place] (D3 Medical ORAL) Branch mv,li,iron 0 Yes Take by [facility] vers ,mn/folic - mouth. ity of acid/chol 11:53: [place] (HAIR-SKIN- 19 Medical NAILS, Branch PABA, ORAL) diphenhydrA 2-0 Yes 25mg Take 25 mg [facility] MINE 9-23 by mouth ity of (BENADRYL) 11:53: every 6 [place] 25 mg 19 (six) Medical capsule hours as Branch needed for Allergies. mecobalamin 2022-0 Yes Take by [facility] (B12 ACTIVE 9 mouth. ity of ORAL) 11:53: [place] [address] Medical Branch cholecalcif 2021-0 Yes Take by [facility] vers deb, - mouth. ity of vitamin D3, 11:53: [place] (D3-1999 19 Medical ORAL) Branch mv,li,iron 2021-0 Yes Take by [facility] vers ,mn/folic - mouth. ity of acid/chol 11:53: [place] (HAIR-SKIN- 19 Medical NAILS, Branch PABA, ORAL) diphenhydrA 2022-0 Yes 25mg Take 25 mg [facility] MINE 9-23 by mouth ity of (BENADRYL) 11:53: every 6 [place] 25 mg 19 (six) Medical capsule hours as Branch needed for Allergies. mecobalamin 2022-0 Yes Take by [facility] (B12 ACTIVE - mouth. ity of ORAL) 11:53: [place] [address] Medical Branch cholecalcif 2021-0 Yes Take by [facility] vers deb, 06-15 mouth. ity of vitamin D3, 11:53: [place] (D3 19 Medical ORAL) Branch mv,li,iron 0 Yes Take by [facility] vers ,mn/folic - mouth. ity of acid/chol 11:53: [place] (HAIR-SKIN- 19 Medical NAILS, Branch PABA, ORAL) diphenhydrA 2022-0 Yes 25mg Take 25 mg [facility] MINE 9-23 by mouth ity of (BENADRYL) 11:53: every 6 [place] 25 mg 19 (six) Medical capsule hours as Branch needed for Allergies. mecobalamin 2022-0 Yes Take by [facility] vers (B12 ACTIVE 06-15 mouth. ity of ORAL) 11:53: [place] [address] Medical Branch cholecalcif 2022-0 Yes Take by [facility] vers deb, 9- mouth. ity of vitamin D3, 11:53: [place] (D3-1999 19 Medical ORAL) Branch mv,li,iron 2021-0 Yes Take by [facility] vers ,mn/folic 9-23 mouth. ity of acid/chol 11:53: [place] (HAIR-SKIN- 19 Medical NAILS, Branch PABA, ORAL) diphenhydrA 2022-0 Yes 25mg Take 25 mg [facility] MINE 9 by mouth ity of (BENADRYL) 11:53: every 6 [place] 25 mg 19 (six) Medical capsule hours as Branch needed for Allergies. mecobalamin 2-0 Yes Take by [facility] vers (B12 ACTIVE 06-15 mouth. ity of ORAL) 11:53: [address] Branch cholecalcif 0 Yes Take by [facility] deb, 06-15 mouth. ity of vitamin D3, 11:53: [place] (D3 Medical ORAL) Branch mv,li,iron 2021-0 Yes Take by [facility] vers ,mn/folic 06-15 mouth. ity of acid/chol 11:53: [place] (HAIR-SKIN- 19 Medical NAILS, Branch PABA, ORAL) diphenhydrA 2021-0 Yes 25mg Take 25 mg [facility] MINE 06-15 by mouth ity of (BENADRYL) 11:53: every 6 [place] 25 mg 19 (six) Medical capsule hours as Branch needed for Allergies. mecobalamin 2021-0 Yes Take by [facility] (B12 ACTIVE 06-15 mouth. ity of ORAL) 11:53: [address] Branch cholecalcif 0 Yes Take by [facility] vers deb, 06-15 mouth. ity of vitamin D3, 11:53: [place] (D3 Medical ORAL) Branch mv,li,iron 0 Yes Take by [facility] vers ,mn/folic 06-15 mouth. ity of acid/chol 11:53: [place] (HAIR-SKIN- 19 Medical NAILS, Branch PABA, ORAL) diphenhydrA 2021-0 Yes 25mg Take 25 mg [facility] MINE 06-15 by mouth ity of (BENADRYL) 11:53: every 6 [place] 25 mg 19 (six) Medical capsule hours as Branch needed for Allergies. mecobalamin 2-0 Yes Take by [facility] vers (B12 ACTIVE 06-15 mouth. ity of ORAL) 11:53: [address] Branch cholecalcif 2021-0 Yes Take by [facility] vers deb, 06-15 mouth. ity of vitamin D3, 11:53: [place] (D3 Medical ORAL) Branch mv,li,iron 0 Yes Take by [facility] vers ,mn/folic 06-15 mouth. ity of acid/chol 11:53: [place] (HAIR-SKIN- 19 Medical NAILS, Branch PABA, ORAL) diphenhydrA 2022-0 Yes 25mg Take 25 mg [facility] MINE 9-23 by mouth ity of (BENADRYL) 11:53: every 6 [place] 25 mg 19 (six) Medical capsule hours as Branch needed for Allergies. mecobalamin 2022-0 Yes Take by [facility] (B12 ACTIVE 06-15 mouth. ity of ORAL) 11:53: [address] Branch cholecalcif 2021-0 Yes Take by [facility] vers deb, 06-15 mouth. ity of vitamin D3, 11:53: [place] (D3-1999 Medical ORAL) Branch mv,li,iron 2021-0 Yes Take by [facility] vers ,mn/folic 06-15 mouth. ity of acid/chol 11:53: [place] (HAIR-SKIN- 19 Medical NAILS, Branch PABA, ORAL) diphenhydrA 2-0 Yes 25mg Take 25 mg [facility] MINE 9 by mouth ity of (BENADRYL) 11:53: every 6 [place] 25 mg 19 (six) Medical capsule hours as Branch needed for Allergies. mecobalamin 2-0 Yes Take by [facility] vers (B12 ACTIVE 06-15 mouth. ity of ORAL) 11:53: [address] Branch cholecalcif 2021-0 Yes Take by [facility] vers deb, 06-15 mouth. ity of vitamin D3, 11:53: [place] (D3 Medical ORAL) Branch mv,li,iron 0 Yes Take by [facility] vers ,mn/folic 06-15 mouth. ity of acid/chol 11:53: [place] (HAIR-SKIN- 19 Medical NAILS, Branch PABA, ORAL) diphenhydrA 2-0 Yes 25mg Take 25 mg [facility] MINE 9-23 by mouth ity of (BENADRYL) 11:53: every 6 [place] 25 mg 19 (six) Medical capsule hours as Branch needed for Allergies. mecobalamin 2022-0 Yes Take by [facility] vers (B12 ACTIVE 06-15 mouth. ity of ORAL) 11:53: [address] Branch cholecalcif 2021-0 Yes Take by [facility] vers deb, 06-15 mouth. ity of vitamin D3, 11:53: [place] (D3-1999 19 Medical ORAL) Branch mv,li,iron 2021-0 Yes Take by [facility] vers ,mn/folic 06-15 mouth. ity of acid/chol 11:53: [place] (HAIR-SKIN- 19 Medical NAILS, Branch PABA, ORAL) diphenhydrA 2-0 Yes 25mg Take 25 mg [facility] MINE 9-23 by mouth ity of (BENADRYL) 11:53: every 6 [place] 25 mg 19 (six) Medical capsule hours as Branch needed for Allergies. mecobalamin 2-0 Yes Take by [facility] vers (B12 ACTIVE 06-15 mouth. ity of ORAL) 11:53: [address] Branch cholecalcif 0 Yes Take by [facility] vers deb, 06-15 mouth. ity of vitamin D3, 11:53: [place] (D3 Medical ORAL) Branch mv,li,iron 0 Yes Take by [facility] vers ,mn/folic - mouth. ity of acid/chol 11:53: [place] (HAIR-SKIN- 19 Medical NAILS, Branch PABA, ORAL) diphenhydrA 2-0 Yes 25mg Take 25 mg [facility] MINE 9- by mouth ity of (BENADRYL) 11:53: every 6 [place] 25 mg 19 (six) Medical capsule hours as Branch needed for Allergies. mecobalamin 2021-0 Yes Take by [facility] vers (B12 ACTIVE 06-15 mouth. ity of ORAL) 11:53: [address] cholecalcif 2021-0 Yes Take by [facility] vers deb, 06-15 mouth. ity of vitamin D3, 11:53: [place] (D3 Medical ORAL) Branch mv,li,iron 0 Yes Take by [facility] vers ,mn/folic 06-15 mouth. ity of acid/chol 11:53: [place] (HAIR-SKIN- 19 Medical NAILS, Branch PABA, ORAL) diphenhydrA 2-0 Yes 25mg Take 25 mg [facility] MINE 9-23 by mouth ity of (BENADRYL) 11:53: every 6 [place] 25 mg 19 (six) Medical capsule hours as Branch needed for Allergies. mecobalamin 2022-0 Yes Take by [facility] vers (B12 ACTIVE 9- mouth. ity of ORAL) 11:53: [place] 19 Medical Branch cholecalcif 2021-0 Yes Take by [facility] vers deb, 06-15 mouth. ity of vitamin D3, 11:53: [place] (D3 Medical ORAL) Branch mv,li,iron 2021-0 Yes Take by [facility] vers ,mn/folic 06-15 mouth. ity of acid/chol 11:53: [place] (HAIR-SKIN- 19 Medical NAILS, Branch PABA, ORAL) diphenhydrA 2022-0 Yes 25mg Take 25 mg [facility] MINE 06-15 by mouth ity of (BENADRYL) 11:53: every 6 [place] 25 mg 19 (six) Medical capsule hours as Branch needed for Allergies. mecobalamin 2021-0 Yes Take by [facility] vers (B12 ACTIVE 06-15 mouth. ity of ORAL) 11:53: [address] Branch cholecalcif 2021-0 Yes Take by [facility] vers deb, 06-15 mouth. ity of vitamin D3, 11:53: [place] (D3 Medical ORAL) Branch mv,li,iron 2021-0 Yes Take by [facility] vers ,mn/folic 06-15 mouth. ity of acid/chol 11:53: [place] (HAIR-SKIN- 19 Medical NAILS, Branch PABA, ORAL) diphenhydrA 2-0 Yes 25mg Take 25 mg [facility] MINE 06-15 by mouth ity of (BENADRYL) 11:53: every 6 [place] 25 mg 19 (six) Medical capsule hours as Branch needed for Allergies. mecobalamin 2-0 Yes Take by [facility] vers (B12 ACTIVE 06-15 mouth. ity of ORAL) 11:53: [address] Branch cholecalcif 2021-0 Yes Take by [facility] vers deb, 06-15 mouth. ity of vitamin D3, 11:53: [place] (D3 Medical ORAL) Branch mv,li,iron 2021-0 Yes Take by [facility] vers ,mn/folic 06-15 mouth. ity of acid/chol 11:53: [place] (HAIR-SKIN- 19 Medical NAILS, Branch PABA, ORAL) cephALEXin 2021-0 Yes [facility] 250 mg/5 mL - ity of suspension 00:00: Medical Branch cephALEXin 2022-0 Yes [facility] 250 mg/5 mL - ity of suspension 00:00: [place] 00 Medical Branch cephALEXin 2022-0 Yes [facility] 250 mg/5 mL 9-19 ity of suspension 00:00: [place] [address] Medical Branch cephALEXin 2022-0 Yes [facility] 250 mg/5 mL 9-19 ity of suspension 00:00: [place] [address] Medical Branch cephALEXin 2022-0 Yes [facility] 250 mg/5 mL 9-19 ity of suspension 00:00: [place] [address] Medical Branch cephALEXin 2022-0 Yes [facility] 250 mg/5 mL 9-19 ity of suspension 00:00: [place] [address] Medical Branch cephALEXin 2022-0 Yes [facility] 250 mg/5 mL 9-19 ity of suspension 00:00: [place] [address] Medical Branch cephALEXin 2022-0 Yes [facility] 250 mg/5 mL 9-19 ity of suspension 00:00: [place] [address] Medical Branch cephALEXin 2022-0 Yes [facility] 250 mg/5 mL 9-19 ity of suspension 00:00: [place] [address] Medical Branch cephALEXin 2022-0 Yes [facility] 250 mg/5 mL 9-19 ity of suspension 00:00: [place] [address] Medical Branch cephALEXin 2022-0 Yes [facility] 250 mg/5 mL 9-19 ity of suspension 00:00: [place] [address] Medical Branch cephALEXin 2022-0 Yes [facility] 250 mg/5 mL 9-19 ity of suspension 00:00: [place] [address] Medical Branch cephALEXin 2022-0 Yes [facility] 250 mg/5 mL 9-19 ity of suspension 00:00: [place] [address] Medical Branch cephALEXin 2022-0 Yes [facility] 250 mg/5 mL 9-19 ity of suspension 00:00: [place] [address] Medical Branch cephALEXin 2022-0 Yes [facility] 250 mg/5 mL 9-19 ity of suspension 00:00: [place] [address] Medical Branch cephALEXin 2022-0 Yes [facility] 250 mg/5 mL 9-19 ity of suspension 00:00: [place] [address] Medical Branch cephALEXin 2022-0 Yes [facility] 250 mg/5 mL 9-19 ity of suspension 00:00: [place] [address] Medical Branch cephALEXin 2022-0 Yes [facility] 250 mg/5 mL 9-19 ity of suspension 00:00: [place] [address] Medical Branch cephALEXin 2022-0 Yes [facility] 250 mg/5 mL 9-19 ity of suspension 00:00: [place] [address] Medical Branch cephALEXin 2022-0 Yes [facility] 250 mg/5 mL 9-19 ity of suspension 00:00: [place] [address] Medical Branch cephALEXin 2022-0 Yes [facility] 250 mg/5 mL 9-19 ity of suspension 00:00: [place] [address] Medical Branch cephALEXin 2022-0 Yes [facility] 250 mg/5 mL 9-19 ity of suspension 00:00: [place] [address] Medical Branch cephALEXin 2022-0 Yes [facility] 250 mg/5 mL 9-19 ity of suspension 00:00: [place] [address] Medical Branch cephALEXin 2022-0 Yes [facility] 250 mg/5 mL 9-19 ity of suspension 00:00: [place] [address] Medical Branch cephALEXin 2022-0 Yes [facility] 250 mg/5 mL 9-19 ity of suspension 00:00: [place] [address] Medical Branch cephALEXin 2022-0 Yes [facility] 250 mg/5 mL 9-19 ity of suspension 00:00: [place] [address] Medical Branch cephALEXin 2022-0 Yes [facility] 250 mg/5 mL 9-19 ity of suspension 00:00: [place] [address] Medical Branch cephALEXin 2022-0 Yes [facility] 250 mg/5 mL 9-19 ity of suspension 00:00: [place] [address] Medical Branch cephALEXin 2022-0 Yes [facility] 250 mg/5 mL 9-19 ity of suspension 00:00: [place] [address] Medical Branch cephALEXin 2022-0 Yes [facility] 250 mg/5 mL 9-19 ity of suspension 00:00: [place] [address] Medical Branch cephALEXin 2022-0 Yes [facility] 250 mg/5 mL 9-19 ity of suspension 00:00: [place] [address] Medical Branch cephALEXin 2022-0 Yes [facility] 250 mg/5 mL 9-19 ity of suspension 00:00: [place] [address] Medical Branch cephALEXin 2022-0 Yes [facility] 250 mg/5 mL 9-19 ity of suspension 00:00: [place] [address] Medical Branch cephALEXin 2022-0 Yes [facility] 250 mg/5 mL 9-19 ity of suspension 00:00: [place] [address] Medical Branch cephALEXin 2022-0 Yes [facility] 250 mg/5 mL 9-19 ity of suspension 00:00: [place] [address] Medical Branch cephALEXin 2022-0 Yes Univers 250 mg/5 mL 9-19 ity of suspension 00:00: [place] [address] Medical Branch cephALEXin 2022-0 Yes Univers 250 mg/5 mL 9-19 ity of suspension 00:00: [place] [address] Medical Branch cephALEXin 2022-0 Yes [facility] 250 mg/5 mL 9-19 ity of suspension 00:00: [place] [address] Medical Branch cephALEXin 2022-0 Yes Univers 250 mg/5 mL 9-19 ity of suspension 00:00: [place] [address] Medical Branch cephALEXin 2022-0 Yes Univers 250 mg/5 mL 9-19 ity of suspension 00:00: [place] 00 Medical Branch cephALEXin 2022-0 Yes Univers 250 mg/5 mL 9-19 ity of suspension 00:00: [place] [address] Medical Branch cephALEXin 2022-0 Yes Univers 250 mg/5 mL 9-19 ity of suspension 00:00: [place] [address] Medical Branch cephALEXin 2022-0 Yes Univers 250 mg/5 mL 9-19 ity of suspension 00:00: [place] [address] Medical Branch cephALEXin 2022-0 Yes Univers 250 mg/5 mL 9-19 ity of suspension 00:00: [place] [address] Medical Branch cephALEXin 2022-0 Yes Univers 250 mg/5 mL 9-19 ity of suspension 00:00: [place] [address] Medical Branch cephALEXin 2022-0 Yes Univers 250 mg/5 mL 9-19 ity of suspension 00:00: [place] [address] Medical Branch cephALEXin 2022-0 Yes Univers 250 mg/5 mL 9-19 ity of suspension 00:00: [place] [address] Medical Branch cephALEXin 2022-0 Yes Univers 250 mg/5 mL 9-19 ity of suspension 00:00: [place] [address] Medical Branch cephALEXin 2022-0 Yes Univers 250 mg/5 mL 9-19 ity of suspension 00:00: [place] [address] Medical Branch cephALEXin 2022-0 Yes Univers 250 mg/5 mL 9-19 ity of suspension 00:00: [place] [address] Medical Branch cephALEXin 2022-0 Yes Univers 250 mg/5 mL 9-19 ity of suspension 00:00: [place] [address] Medical Branch cephALEXin 2022-0 Yes Univers 250 mg/5 mL 9-19 ity of suspension 00:00: [place] [address] Medical Branch cephALEXin 2022-0 Yes Univers 250 mg/5 mL 9-19 ity of suspension 00:00: [place] [address] Medical Branch cephALEXin 2022-0 Yes Univers 250 mg/5 mL 9-19 ity of suspension 00:00: [place] [address] Medical Branch cephALEXin 2022-0 Yes Univers 250 mg/5 mL 9-19 ity of suspension 00:00: [place] [address] Medical Branch cephALEXin 2022-0 Yes Univers 250 mg/5 mL 9-19 ity of suspension 00:00: [place] [facility] cephALEXin 2022-0 Yes Univers 250 mg/5 mL 9-19 ity of suspension 00:00: [place] [facility] cephALEXin 2022-0 Yes Univers 250 mg/5 mL 9-19 ity of suspension 00:00: [place] [facility] cephALEXin 2022-0 Yes Univers 250 mg/5 mL 9-19 ity of suspension 00:00: [place] [facility] cephALEXin 2022-0 Yes [facility] 250 mg/5 mL 9-19 ity of suspension 00:00: [place] [facility] cephALEXin 2022-0 Yes Univers 250 mg/5 mL 9-19 ity of suspension 00:00: [place] [facility] cephALEXin 2022-0 Yes Univers 250 mg/5 mL 9-19 ity of suspension 00:00: [place] [facility] cephALEXin 2022-0 Yes Univers 250 mg/5 mL 9-19 ity of suspension 00:00: [place] [facility] cephALEXin 2022-0 Yes [facility] 250 mg/5 mL 9-19 ity of suspension 00:00: [place] [facility] cephALEXin 2022-0 Yes Univers 250 mg/5 mL 9-19 ity of suspension 00:00: [place] [facility] cephALEXin 2022-0 Yes Univers 250 mg/5 mL 9-19 ity of suspension 00:00: [place] [facility] lactulose 2022-0 Yes [id number] 30mL Take 30 mL Univers 10 gram/15 9-16 by mouth ity o f mL oral 00:00: daily. [facility] Medical Branch sucralfate 2022-0 Yes [id number] 1000mg Take 10 mL Univers 100 mg/mL 9-16 by mouth ity of suspension 00:00: before [place] [address] meals and Medical at Branch bedtime. lactulose 2022-0 Yes [id number] 30mL Take 30 mL [facility] 10 gram/15 9-16 by mouth ity o f mL oral 00:00: daily. [place] solution 00 Medical Branch sucralfate 2022-0 Yes [id number] 1000mg Take 10 mL [facility] 100 mg/mL 9-16 by mouth ity of suspension 00:00: before [place] [address] meals and Medical at Branch bedtime. lactulose 2022-0 Yes [id number] 30mL Take 30 mL Univers 10 gram/15 9-16 by mouth ity o f mL oral 00:00: daily. [place] solution 00 [facility] sucralfate 2-0 Yes [id number] 1000mg Take 10 mL Univers 100 mg/mL 9-16 by mouth ity of suspension 00:00: before [place] 00 meals and Medical at Branch bedtime. lactulose 2-0 Yes [id number] 30mL Take 30 mL Univers 10 gram/15 9-16 by mouth ity o f mL oral 00:00: daily. [place] solution 00 [facility] sucralfate 2-0 Yes [id number] 1000mg Take 10 mL Univers 100 mg/mL 9-16 by mouth ity of suspension 00:00: before [place] 00 meals and Medical at Branch bedtime. lactulose 2-0 Yes [id number] 30mL Take 30 mL Univers 10 gram/15 9-16 by mouth ity o f mL oral 00:00: daily. [place] solution 00 [facility] sucralfate 2-0 Yes [id number] 1000mg Take 10 mL Univers 100 mg/mL 9-16 by mouth ity of suspension 00:00: before [place] 00 meals and Medical at Branch bedtime. lactulose 2-0 Yes [id number] 30mL Take 30 mL Univers 10 gram/15 9-16 by mouth ity o f mL oral 00:00: daily. [place] solution 00 [facility] sucralfate 2-0 Yes [id number] 1000mg Take 10 mL Univers 100 mg/mL 9-16 by mouth ity of suspension 00:00: before [place] 00 meals and Medical at Branch bedtime. lactulose 2-0 Yes [id number] 30mL Take 30 mL Univers 10 gram/15 9-16 by mouth ity o f mL oral 00:00: daily. [place] solution 00 [facility] sucralfate 2-0 Yes [id number] 1000mg Take 10 mL Univers 100 mg/mL 9-16 by mouth ity of suspension 00:00: before [place] 00 meals and Medical at Branch bedtime. lactulose 2022-0 Yes [id number] 30mL Take 30 mL [facility] 10 gram/15 9-16 by mouth ity o f mL oral 00:00: daily. [place] solution 00 [facility] sucralfate 2-0 Yes [id number] 1000mg Take 10 mL [facility] 100 mg/mL 9-16 by mouth ity of suspension 00:00: before [place] 00 meals and Medical at Branch bedtime. lactulose 2-0 Yes [id number] 30mL Take 30 mL [facility] 10 gram/15 9-16 by mouth ity o f mL oral 00:00: daily. [place] solution 00 Medical Branch sucralfate 2021-0 Yes [id number] 1000mg Take 10 mL [facility] 100 mg/mL 9-16 by mouth ity of suspension 00:00: before [place] 00 meals and Medical at Branch bedtime. lactulose 2-0 Yes [id number] 30mL Take 30 mL [facility] 10 gram/15 9-16 by mouth ity o f mL oral 00:00: daily. [place] solution 00 [facility] sucralfate 2021-0 Yes [id number] 1000mg Take 10 mL [facility] 100 mg/mL 9-16 by mouth ity of suspension 00:00: before [place] 00 meals and Medical at Branch bedtime. lactulose 2021-0 Yes [id number] 30mL Take 30 mL [facility] 10 gram/15 9-16 by mouth ity o f mL oral 00:00: daily. [place] solution 00 [facility] sucralfate 2021-0 Yes [id number] 1000mg Take 10 mL [facility] 100 mg/mL 9-16 by mouth ity of suspension 00:00: before [place] 00 meals and Medical at Branch bedtime. lactulose 2021-0 Yes [id number] 30mL Take 30 mL [facility] 10 gram/15 9-16 by mouth ity o f mL oral 00:00: daily. [place] solution 00 [facility] sucralfate 2-0 Yes [id number] 1000mg Take 10 mL [facility] 100 mg/mL 9-16 by mouth ity of suspension 00:00: before [place] 00 meals and Medical at Branch bedtime. lactulose 2-0 Yes [id number] 30mL Take 30 mL [facility] 10 gram/15 9-16 by mouth ity o f mL oral 00:00: daily. [place] solution 00 [facility] sucralfate 2-0 Yes [id number] 1000mg Take 10 mL [facility] 100 mg/mL 9-16 by mouth ity of suspension 00:00: before [place] 00 meals and Medical at Branch bedtime. lactulose 2-0 Yes [id number] 30mL Take 30 mL [facility] 10 gram/15 9-16 by mouth ity o f mL oral 00:00: daily. [place] solution 00 [facility] sucralfate 2022-0 Yes [id number] 1000mg Take 10 mL [facility] 100 mg/mL 9-16 by mouth ity of suspension 00:00: before [place] 00 meals and Medical at Branch bedtime. lactulose 2-0 Yes [id number] 30mL Take 30 mL [facility] 10 gram/15 9-16 by mouth ity o f mL oral 00:00: daily. [place] solution 00 [facility] sucralfate 2-0 Yes [id number] 1000mg Take 10 mL [facility] 100 mg/mL 9-16 by mouth ity of suspension 00:00: before [place] 00 meals and Medical at Branch bedtime. lactulose 2021-0 Yes [id number] 30mL Take 30 mL [facility] 10 gram/15 9-16 by mouth ity o f mL oral 00:00: daily. [place] solution 00 [facility] sucralfate 2021-0 Yes [id number] 1000mg Take 10 mL [facility] 100 mg/mL 9-16 by mouth ity of suspension 00:00: before [place] 00 meals and Medical at Branch bedtime. lactulose 2021-0 Yes [id number] 30mL Take 30 mL [facility] 10 gram/15 9-16 by mouth ity o f mL oral 00:00: daily. [place] solution 00 [facility] sucralfate 2021-0 Yes [id number] 1000mg Take 10 mL [facility] 100 mg/mL 9-16 by mouth ity of suspension 00:00: before [place] 00 meals and Medical at Branch bedtime. lactulose 2021-0 Yes [id number] 30mL Take 30 mL [facility] 10 gram/15 9-16 by mouth ity o f mL oral 00:00: daily. [place] solution 00 [facility] sucralfate 2-0 Yes [id number] 1000mg Take 10 mL [facility] 100 mg/mL 9-16 by mouth ity of suspension 00:00: before [place] 00 meals and Medical at Branch bedtime. lactulose 2-0 Yes [id number] 30mL Take 30 mL [facility] 10 gram/15 9-16 by mouth ity o f mL oral 00:00: daily. [place] solution 00 [facility] sucralfate 2-0 Yes [id number] 1000mg Take 10 mL [facility] 100 mg/mL 9-16 by mouth ity of suspension 00:00: before [place] 00 meals and Medical at Branch bedtime. lactulose 2-0 Yes [id number] 30mL Take 30 mL [facility] 10 gram/15 9-16 by mouth ity o f mL oral 00:00: daily. [place] solution 00 [facility] sucralfate 2-0 Yes [id number] 1000mg Take 10 mL [facility] 100 mg/mL 9-16 by mouth ity of suspension 00:00: before [place] 00 meals and Medical at Branch bedtime. lactulose 2-0 Yes [id number] 30mL Take 30 mL [facility] 10 gram/15 9-16 by mouth ity o f mL oral 00:00: daily. [place] solution 00 [facility] sucralfate 2021-0 Yes [id number] 1000mg Take 10 mL [facility] 100 mg/mL 9-16 by mouth ity of suspension 00:00: before [place] 00 meals and Medical at Branch bedtime. lactulose 2021-0 Yes [id number] 30mL Take 30 mL [facility] 10 gram/15 9-16 by mouth ity o f mL oral 00:00: daily. [place] solution 00 [facility] sucralfate 2021-0 Yes [id number] 1000mg Take 10 mL [facility] 100 mg/mL 9-16 by mouth ity of suspension 00:00: before [place] 00 meals and Medical at Branch bedtime. lactulose 2021-0 Yes [id number] 30mL Take 30 mL [facility] 10 gram/15 9-16 by mouth ity o f mL oral 00:00: daily. [place] solution 00 [facility] sucralfate 2021-0 Yes [id number] 1000mg Take 10 mL [facility] 100 mg/mL 9-16 by mouth ity of suspension 00:00: before [place] 00 meals and Medical at Branch bedtime. lactulose 2-0 Yes [id number] 30mL Take 30 mL [facility] 10 gram/15 9-16 by mouth ity o f mL oral 00:00: daily. [place] solution 00 [facility] sucralfate 2-0 Yes [id number] 1000mg Take 10 mL [facility] 100 mg/mL 9-16 by mouth ity of suspension 00:00: before [place] 00 meals and Medical at Branch bedtime. lactulose 2-0 Yes [id number] 30mL Take 30 mL [facility] 10 gram/15 9-16 by mouth ity o f mL oral 00:00: daily. [place] solution 00 [facility] sucralfate 2-0 Yes [id number] 1000mg Take 10 mL [facility] 100 mg/mL 9-16 by mouth ity of suspension 00:00: before [place] 00 meals and Medical at Branch bedtime. lactulose 2022-0 Yes [id number] 30mL Take 30 mL [facility] 10 gram/15 9-16 by mouth ity o f mL oral 00:00: daily. [place] solution 00 [facility] sucralfate 2-0 Yes [id number] 1000mg Take 10 mL [facility] 100 mg/mL 9-16 by mouth ity of suspension 00:00: before [place] 00 meals and Medical at Branch bedtime. lactulose 2-0 Yes [id number] 30mL Take 30 mL [facility] 10 gram/15 9-16 by mouth ity o f mL oral 00:00: daily. [place] solution 00 [facility] sucralfate 2-0 Yes [id number] 1000mg Take 10 mL [facility] 100 mg/mL 9-16 by mouth ity of suspension 00:00: before [place] 00 meals and Medical at Branch bedtime. lactulose 2-0 Yes [id number] 30mL Take 30 mL [facility] 10 gram/15 9-16 by mouth ity o f mL oral 00:00: daily. [place] solution 00 [facility] sucralfate 2-0 Yes [id number] 1000mg Take 10 mL [facility] 100 mg/mL 9-16 by mouth ity of suspension 00:00: before [place] 00 meals and Medical at Branch bedtime. lactulose 2-0 Yes [id number] 30mL Take 30 mL [facility] 10 gram/15 9-16 by mouth ity o f mL oral 00:00: daily. [place] solution 00 [facility] sucralfate 2-0 Yes [id number] 1000mg Take 10 mL [facility] 100 mg/mL 9-16 by mouth ity of suspension 00:00: before [place] 00 meals and Medical at Branch bedtime. lactulose 2-0 Yes [id number] 30mL Take 30 mL [facility] 10 gram/15 9-16 by mouth ity o f mL oral 00:00: daily. [place] solution 00 [facility] sucralfate 2022-0 Yes [id number] 1000mg Take 10 mL [facility] 100 mg/mL 9-16 by mouth ity of suspension 00:00: before [place] 00 meals and Medical at Branch bedtime. lactulose 2-0 Yes [id number] 30mL Take 30 mL [facility] 10 gram/15 9-16 by mouth ity o f mL oral 00:00: daily. [place] solution 00 [facility] [place] sucralfate 2-0 Yes [id number] 1000mg Take 10 mL [facility] 100 mg/mL 9-16 by mouth ity of suspension 00:00: before [place] 00 meals and Medical at Branch bedtime. lactulose 2-0 Yes [id number] 30mL Take 30 mL [facility] 10 gram/15 9-16 by mouth ity o f mL oral 00:00: daily. [place] solution 00 [facility] [place] sucralfate 2-0 Yes [id number] 1000mg Take 10 mL [facility] 100 mg/mL 9-16 by mouth ity of suspension 00:00: before [place] 00 meals and Medical at Branch bedtime. lactulose 2-0 Yes [id number] 30mL Take 30 mL [facility] 10 gram/15 9-16 by mouth ity o f mL oral 00:00: daily. [place] solution 00 [facility] sucralfate 2-0 Yes [id number] 1000mg Take 10 mL [facility] 100 mg/mL 9-16 by mouth ity of suspension 00:00: before [place] 00 meals and Medical at Branch bedtime. lactulose 2-0 Yes [id number] 30mL Take 30 mL [facility] 10 gram/15 9-16 by mouth ity o f mL oral 00:00: daily. [place] solution 00 [facility] sucralfate 2-0 Yes [id number] 1000mg Take 10 mL [facility] 100 mg/mL 9-16 by mouth ity of suspension 00:00: before [place] 00 meals and Medical at Branch bedtime. lactulose 2-0 Yes [id number] 30mL Take 30 mL [facility] 10 gram/15 9-16 by mouth ity o f mL oral 00:00: daily. [place] solution 00 [facility] [place] sucralfate 2-0 Yes [id number] 1000mg Take 10 mL [facility] 100 mg/mL 9-16 by mouth ity of suspension 00:00: before [place] 00 meals and Medical at Branch bedtime. lactulose 2-0 Yes [id number] 30mL Take 30 mL [facility] 10 gram/15 9-16 by mouth ity o f mL oral 00:00: daily. [place] solution 00 [facility] sucralfate 2-0 Yes [id number] 1000mg Take 10 mL [facility] 100 mg/mL 9-16 by mouth ity of suspension 00:00: before [place] 00 meals and Medical at Branch bedtime. lactulose 2-0 Yes [id number] 30mL Take 30 mL [facility] 10 gram/15 9-16 by mouth ity o f mL oral 00:00: daily. [place] solution 00 [facility] sucralfate 2021-0 Yes [id number] 1000mg Take 10 mL [facility] 100 mg/mL 9-16 by mouth ity of suspension 00:00: before [place] 00 meals and Medical at Branch bedtime. lactulose 2021-0 Yes [id number] 30mL Take 30 mL [facility] 10 gram/15 9-16 by mouth ity o f mL oral 00:00: daily. [place] solution 00 [facility] sucralfate 2021-0 Yes [id number] 1000mg Take 10 mL [facility] 100 mg/mL 9-16 by mouth ity of suspension 00:00: before 00 meals and Medical at [place] bedtime. lactulose 2021-0 Yes [id number] 30mL Take 30 mL [facility] 10 gram/15 9-16 by mouth ity o f mL oral 00:00: daily. [place] solution [facility] sucralfate 2021-0 Yes [id number] 1000mg Take 10 mL [facility] 100 mg/mL 9-16 by mouth ity of suspension 00:00: before 00 meals and Medical at Branch bedtime. lactulose 2021-0 Yes [id number] 30mL Take 30 mL [facility] 10 gram/15 9-16 by mouth ity o f mL oral 00:00: daily. [place] solution 00 [facility] sucralfate 2021-0 Yes [id number] 1000mg Take 10 mL [facility] 100 mg/mL 9-16 by mouth ity of suspension 00:00: before 00 meals and Medical at [place] bedtime. lactulose 2021-0 Yes [id number] 30mL Take 30 mL [facility] 10 gram/15 9-16 by mouth ity o f mL oral 00:00: daily. [place] solution 00 [facility] sucralfate 2021-0 Yes [id number] 1000mg Take 10 mL [facility] 100 mg/mL 9-16 by mouth ity of suspension 00:00: before [place] 00 meals and Medical at Branch bedtime. lactulose 2021-0 Yes [id number] 30mL Take 30 mL [facility] 10 gram/15 9-16 by mouth ity o f mL oral 00:00: daily. [place] solution 00 [facility] sucralfate 2021-0 Yes [id number] 1000mg Take 10 mL [facility] 100 mg/mL 9-16 by mouth ity of suspension 00:00: before [place] 00 meals and Medical at Branch bedtime. lactulose 2-0 Yes [id number] 30mL Take 30 mL [facility] 10 gram/15 9-16 by mouth ity o f mL oral 00:00: daily. [place] solution 00 [facility] sucralfate 2-0 Yes [id number] 1000mg Take 10 mL [facility] 100 mg/mL 9-16 by mouth ity of suspension 00:00: before [place] 00 meals and Medical at Branch bedtime. lactulose 2-0 Yes [id number] 30mL Take 30 mL [facility] 10 gram/15 9-16 by mouth ity o f mL oral 00:00: daily. [place] solution 00 [facility] sucralfate 2021-0 Yes [id number] 1000mg Take 10 mL [facility] 100 mg/mL 9-16 by mouth ity of suspension 00:00: before [place] 00 meals and Medical at Branch bedtime. lactulose 2-0 Yes [id number] 30mL Take 30 mL [facility] 10 gram/15 9-16 by mouth ity o f mL oral 00:00: daily. [place] solution 00 [facility] sucralfate 2021-0 Yes [id number] 1000mg Take 10 mL [facility] 100 mg/mL 9-16 by mouth ity of suspension 00:00: before [place] 00 meals and Medical at Branch bedtime. lactulose 2021-0 Yes [id number] 30mL Take 30 mL [facility] 10 gram/15 9-16 by mouth ity o f mL oral 00:00: daily. [place] solution 00 [facility] sucralfate 2-0 Yes [id number] 1000mg Take 10 mL [facility] 100 mg/mL 9-16 by mouth ity of suspension 00:00: before [place] 00 meals and Medical at Branch bedtime. lactulose 2-0 Yes [id number] 30mL Take 30 mL [facility] 10 gram/15 9-16 by mouth ity o f mL oral 00:00: daily. [place] solution 00 [facility] sucralfate 2-0 Yes [id number] 1000mg Take 10 mL [facility] 100 mg/mL 9-16 by mouth ity of suspension 00:00: before [place] 00 meals and Medical at Branch bedtime. lactulose 2-0 Yes [id number] 30mL Take 30 mL [facility] 10 gram/15 9-16 by mouth ity o f mL oral 00:00: daily. [place] solution 00 [facility] sucralfate 2-0 Yes [id number] 1000mg Take 10 mL [facility] 100 mg/mL 9-16 by mouth ity of suspension 00:00: before [place] 00 meals and Medical at Branch bedtime. lactulose 2-0 Yes [id number] 30mL Take 30 mL [facility] 10 gram/15 9-16 by mouth ity o f mL oral 00:00: daily. [place] solution 00 [facility] sucralfate 2021-0 Yes [id number] 1000mg Take 10 mL [facility] 100 mg/mL 9-16 by mouth ity of suspension 00:00: before [place] 00 meals and Medical at Branch bedtime. lactulose 2-0 Yes [id number] 30mL Take 30 mL [facility] 10 gram/15 9-16 by mouth ity o f mL oral 00:00: daily. [place] solution 00 [facility] sucralfate 2-0 Yes [id number] 1000mg Take 10 mL [facility] 100 mg/mL 9-16 by mouth ity of suspension 00:00: before [place] 00 meals and Medical at Branch bedtime. lactulose 2-0 Yes [id number] 30mL Take 30 mL [facility] 10 gram/15 9-16 by mouth ity o f mL oral 00:00: daily. [place] solution 00 [facility] sucralfate 2021-0 Yes [id number] 1000mg Take 10 mL [facility] 100 mg/mL 9-16 by mouth ity of suspension 00:00: before [place] 00 meals and Medical at Branch bedtime. lactulose 2-0 Yes [id number] 30mL Take 30 mL [facility] 10 gram/15 9-16 by mouth ity o f mL oral 00:00: daily. [place] solution 00 [facility] sucralfate 2-0 Yes [id number] 1000mg Take 10 mL [facility] 100 mg/mL 9-16 by mouth ity of suspension 00:00: before [place] 00 meals and Medical at Branch bedtime. lactulose 2-0 Yes [id number] 30mL Take 30 mL [facility] 10 gram/15 9-16 by mouth ity o f mL oral 00:00: daily. [place] solution 00 [facility] sucralfate 2-0 Yes [id number] 1000mg Take 10 mL [facility] 100 mg/mL 9-16 by mouth ity of suspension 00:00: before [place] 00 meals and Medical at Branch bedtime. lactulose 2-0 Yes [id number] 30mL Take 30 mL [facility] 10 gram/15 9-16 by mouth ity o f mL oral 00:00: daily. [place] solution 00 [facility] [place] sucralfate 2-0 Yes [id number] 1000mg Take 10 mL [facility] 100 mg/mL 9-16 by mouth ity of suspension 00:00: before [place] 00 meals and Medical at Branch bedtime. lactulose 2-0 Yes [id number] 30mL Take 30 mL [facility] 10 gram/15 9-16 by mouth ity o f mL oral 00:00: daily. [place] solution 00 [facility] sucralfate 2021-0 Yes [id number] 1000mg Take 10 mL [facility] 100 mg/mL 9-16 by mouth ity of suspension 00:00: before [place] 00 meals and Medical at Branch bedtime. lactulose 2-0 Yes [id number] 30mL Take 30 mL [facility] 10 gram/15 9-16 by mouth ity o f mL oral 00:00: daily. [place] solution 00 [facility] sucralfate 2-0 Yes [id number] 1000mg Take 10 mL [facility] 100 mg/mL 9-16 by mouth ity of suspension 00:00: before [place] 00 meals and Medical at Branch bedtime. lactulose 2-0 Yes [id number] 30mL Take 30 mL [facility] 10 gram/15 9-16 by mouth ity o f mL oral 00:00: daily. [place] solution 00 [facility] sucralfate 2021-0 Yes [id number] 1000mg Take 10 mL [facility] 100 mg/mL 9-16 by mouth ity of suspension 00:00: before [place] 00 meals and Medical at Branch bedtime. lactulose 2-0 Yes [id number] 30mL Take 30 mL [facility] 10 gram/15 9-16 by mouth ity o f mL oral 00:00: daily. [place] solution 00 [facility] sucralfate 2-0 Yes [id number] 1000mg Take 10 mL [facility] 100 mg/mL 9-16 by mouth ity of suspension 00:00: before [place] 00 meals and Medical at Branch bedtime. lactulose 2-0 Yes [id number] 30mL Take 30 mL [facility] 10 gram/15 9-16 by mouth ity o f mL oral 00:00: daily. [place] solution 00 [facility] sucralfate 2-0 Yes [id number] 1000mg Take 10 mL [facility] 100 mg/mL 9-16 by mouth ity of suspension 00:00: before [place] 00 meals and Medical at Branch bedtime. lactulose 2021-0 Yes [id number] 30mL Take 30 mL [facility] 10 gram/15 9-16 by mouth ity o f mL oral 00:00: daily. [place] solution 00 [facility] sucralfate 2-0 Yes [id number] 1000mg Take 10 mL [facility] 100 mg/mL 9-16 by mouth ity of suspension 00:00: before [place] 00 meals and Medical at Branch bedtime. lactulose 2-0 Yes [id number] 30mL Take 30 mL [facility] 10 gram/15 9-16 by mouth ity o f mL oral 00:00: daily. [place] solution 00 [facility] sucralfate 2021-0 Yes [id number] 1000mg Take 10 mL [facility] 100 mg/mL 9-16 by mouth ity of suspension 00:00: before [place] 00 meals and Medical at Branch bedtime. lactulose 2021-0 Yes [id number] 30mL Take 30 mL [facility] 10 gram/15 9-16 by mouth ity o f mL oral 00:00: daily. [place] solution 00 [facility] sucralfate 2021-0 Yes [id number] 1000mg Take 10 mL [facility] 100 mg/mL 9-16 by mouth ity of suspension 00:00: before [place] 00 meals and Medical at Branch bedtime. lactulose 2021-0 Yes [id number] 30mL Take 30 mL [facility] 10 gram/15 9-16 by mouth ity o f mL oral 00:00: daily. [place] solution 00 [facility] sucralfate 2-0 Yes [id number] 1000mg Take 10 mL [facility] 100 mg/mL 9-16 by mouth ity of suspension 00:00: before [place] 00 meals and Medical at Branch bedtime. lactulose 2-0 Yes [id number] 30mL Take 30 mL [facility] 10 gram/15 9-16 by mouth ity o f mL oral 00:00: daily. [place] solution 00 [facility] sucralfate 2-0 Yes [id number] 1000mg Take 10 mL [facility] 100 mg/mL 9-16 by mouth ity of suspension 00:00: before [place] 00 meals and Medical at Branch bedtime. lactulose 2-0 Yes [id number] 30mL Take 30 mL [facility] 10 gram/15 9-16 by mouth ity o f mL oral 00:00: daily. [place] solution 00 [facility] [place] sucralfate 2-0 Yes [id number] 1000mg Take 10 mL [facility] 100 mg/mL 9-16 by mouth ity of suspension 00:00: before [place] 00 meals and Medical at Branch bedtime. lactulose 2021-0 Yes [id number] 30mL Take 30 mL [facility] 10 gram/15 9-16 by mouth ity o f mL oral 00:00: daily. [place] solution 00 [facility] sucralfate 2021-0 Yes [id number] 1000mg Take 10 mL [facility] 100 mg/mL 9-16 by mouth ity of suspension 00:00: before [place] 00 meals and Medical at Branch bedtime. lactulose 2021-0 Yes [id number] 30mL Take 30 mL [facility] 10 gram/15 9-16 by mouth ity o f mL oral 00:00: daily. [place] solution 00 [facility] sucralfate 2021-0 Yes [id number] 1000mg Take 10 mL [facility] 100 mg/mL 9-16 by mouth ity of suspension 00:00: before [place] 00 meals and Medical at Branch bedtime. lactulose 2021-0 Yes [id number] 30mL Take 30 mL [facility] 10 gram/15 9-16 by mouth ity o f mL oral 00:00: daily. [place] solution 00 [facility] sucralfate 2021-0 Yes [id number] 1000mg Take 10 mL [facility] 100 mg/mL 9-16 by mouth ity of suspension 00:00: before [place] 00 meals and Medical at Branch bedtime. lactulose 2-0 Yes [id number] 30mL Take 30 mL [facility] 10 gram/15 9-16 by mouth ity o f mL oral 00:00: daily. [place] solution 00 [facility] sucralfate 2021-0 Yes [id number] 1000mg Take 10 mL [facility] 100 mg/mL 9-16 by mouth ity of suspension 00:00: before [place] 00 meals and Medical at Branch bedtime. lactulose 2-0 Yes [id number] 30mL Take 30 mL [facility] 10 gram/15 9-16 by mouth ity o f mL oral 00:00: daily. [place] solution 00 [facility] sucralfate 2-0 Yes [id number] 1000mg Take 10 mL [facility] 100 mg/mL 9-16 by mouth ity of suspension 00:00: before [place] 00 meals and Medical at Branch bedtime. lactulose 2-0 Yes [id number] 30mL Take 30 mL [facility] 10 gram/15 9-16 by mouth ity o f mL oral 00:00: daily. [place] solution 00 [facility] sucralfate 2-0 Yes [id number] 1000mg Take 10 mL [facility] 100 mg/mL 9-16 by mouth ity of suspension 00:00: before [place] 00 meals and Medical at [facility] bedtime. lactulose 2021-0 Yes [id number] 30mL Take 30 mL [facility] 10 gram/15 9-16 by mouth ity o f mL oral 00:00: daily. [place] solution 00 [facility] sucralfate 2021-0 Yes [id number] 1000mg Take 10 mL [facility] 100 mg/mL 9-16 by mouth ity of suspension 00:00: before [place] 00 meals and Medical at Branch bedtime. lactulose 2021-0 Yes [id number] 30mL Take 30 mL [facility] 10 gram/15 9-16 by mouth ity o f mL oral 00:00: daily. [place] solution 00 [facility] sucralfate 2-0 Yes [id number] 1000mg Take 10 mL [facility] 100 mg/mL 9-16 by mouth ity of suspension 00:00: before [place] 00 meals and Medical at Branch bedtime. lactulose 2021-0 Yes [id number] 30mL Take 30 mL [facility] 10 gram/15 9-16 by mouth ity o f mL oral 00:00: daily. [place] solution 00 [facility] sucralfate 2-0 Yes [id number] 1000mg Take 10 mL [facility] 100 mg/mL 9-16 by mouth ity of suspension 00:00: before [place] 00 meals and Medical at Branch bedtime. lactulose 2-0 Yes [id number] 30mL Take 30 mL [facility] 10 gram/15 9-16 by mouth ity o f mL oral 00:00: daily. [place] solution 00 [facility] sucralfate 2-0 Yes [id number] 1000mg Take 10 mL [facility] 100 mg/mL 9-16 by mouth ity of suspension 00:00: before [place] 00 meals and Medical at Branch bedtime. lactulose 2-0 Yes [id number] 30mL Take 30 mL [facility] 10 gram/15 9-16 by mouth ity o f mL oral 00:00: daily. [facility] sucralfate 2022-0 Yes [id number] 1000mg Take 10 mL [facility] 100 mg/mL 9-16 by mouth ity of suspension 00:00: before [place] meals and Medical at [place] bedtime. lactulose 2-0 Yes [id number] 30mL Take 30 mL [facility] 10 gram/15 9-16 by mouth ity o f mL oral 00:00: daily. [place] solution [facility] sucralfate 2-0 Yes [id number] 1000mg Take 10 mL [facility] 100 mg/mL 9-16 by mouth ity of suspension 00:00: before [place] 00 meals and Medical at [place] bedtime. Sucralfate 2021-0 Yes 1g Take 10 mL [facility] (Carafate) 9-16 (1 g [place] 1 GM/10ML 00:00: total) by - oral 00 mouth Externa Suspension before l meals and at bedtime Lactulose 2021-0 2023- No 20g Take 30 mL [facility] 10 GM/15ML 9-16 04-10 (20 g [place] oral 00:00: 00:00 total) by - Solution 00 :00 mouth Externa daily l pantoprazol 2-0 Yes 40mg QD Take 40 mg [facility] 9-14 by mouth 1 [facility] (ProtoNix) 00:00: (one) time 40 MG EC 00 each day. tablet pantoprazol 2-0 Yes 40mg QD Take 40 mg [facility] 9-14 by mouth 1 [facility] (ProtoNix) 00:00: (one) time 40 MG EC 00 each day. tablet pantoprazol 2022-0 Yes 40mg QD Take 40 mg [facility] 9-14 by mouth 1 [facility] (ProtoNix) 00:00: (one) time 40 MG EC 00 each day. tablet pantoprazol 2-0 Yes 40mg Take 40 mg [facility] e 40 mg EC 9-14 by mouth ity o f tablet 00:00: daily. [address] traMADoL 50 2021-0 Yes TAKE 1 [facility] ers mg tablet 9-14 TABLET BY ity o f 00:00: MOUTH [place] 00 EVERY 8 Medical HOURS Branch NEEDED pantoprazol 2-0 Yes 40mg Take 40 mg [facility] e 40 mg EC 9-14 by mouth ity o f tablet 00:00: daily. [place] [facility] traMADoL 50 2021-0 Yes TAKE 1 [facility] ers mg tablet 9-14 TABLET BY ity o f 00:00: MOUTH EVERY 8 Medical HOURS Branch NEEDED pantoprazol 2022-0 Yes 40mg Take 40 mg [facility] e 40 mg EC 9-14 by mouth ity o f tablet 00:00: daily. [place] [facility] traMADoL 50 2021-0 Yes TAKE 1 [facility] ers mg tablet 9-14 TABLET BY ity o f 00:00: MOUTH EVERY 8 Medical HOURS Branch NEEDED pantoprazol 2022-0 Yes 40mg Take 40 mg [facility] e 40 mg EC 9-14 by mouth ity o f tablet 00:00: daily. [place] [facility] traMADoL 50 2021-0 Yes TAKE 1 [facility] ers mg tablet 9-14 TABLET BY ity o f 00:00: MOUTH EVERY 8 Medical HOURS Branch NEEDED pantoprazol 2-0 Yes 40mg Take 40 mg [facility] e 40 mg EC 9-14 by mouth ity o f tablet 00:00: daily. [place] [facility] traMADoL 50 2021-0 Yes TAKE 1 [facility] ers mg tablet 9-14 TABLET BY ity o f 00:00: MOUTH EVERY 8 Medical HOURS Branch NEEDED pantoprazol 2-0 Yes 40mg Take 40 mg [facility] e 40 mg EC 9-14 by mouth ity o f tablet 00:00: daily. [place] [facility] traMADoL 50 2021-0 Yes TAKE 1 [facility] ers mg tablet 9-14 TABLET BY ity o f 00:00: MOUTH EVERY 8 Medical HOURS Branch NEEDED pantoprazol 2-0 Yes 40mg Take 40 mg [facility] e 40 mg EC 9-14 by mouth ity o f tablet 00:00: daily. [place] [facility] traMADoL 50 2021-0 Yes TAKE 1 [facility] ers mg tablet 9-14 TABLET BY ity o f 00:00: MOUTH EVERY 8 Medical HOURS Branch NEEDED pantoprazol 2022-0 Yes 40mg Take 40 mg [facility] e 40 mg EC 9-14 by mouth ity o f tablet 00:00: daily. [place] [facility] traMADoL 50 2-0 Yes TAKE 1 [facility] ers mg tablet 9-14 TABLET BY ity o f 00:00: MOUTH EVERY 8 Medical HOURS Branch NEEDED pantoprazol 2022-0 Yes 40mg Take 40 mg [facility] e 40 mg EC 9-14 by mouth ity o f tablet 00:00: daily. [place] [facility] traMADoL 50 2021-0 Yes TAKE 1 [facility] ers mg tablet 9-14 TABLET BY ity o f 00:00: MOUTH EVERY 8 Medical HOURS Branch NEEDED pantoprazol 2-0 Yes 40mg Take 40 mg [facility] e 40 mg EC 9-14 by mouth ity o f tablet 00:00: daily. [place] [facility] traMADoL 50 2021-0 Yes TAKE 1 [facility] ers mg tablet 9-14 TABLET BY ity o f 00:00: MOUTH EVERY 8 Medical HOURS Branch NEEDED pantoprazol 2-0 Yes 40mg Take 40 mg [facility] e 40 mg EC 9-14 by mouth ity o f tablet 00:00: daily. [place] [facility] traMADoL 50 2021-0 Yes TAKE 1 [facility] ers mg tablet 9-14 TABLET BY ity o f 00:00: MOUTH EVERY 8 Medical HOURS Branch NEEDED pantoprazol 2-0 Yes 40mg Take 40 mg [facility] e 40 mg EC 9-14 by mouth ity o f tablet 00:00: daily. [place] [facility] traMADoL 50 2021-0 Yes TAKE 1 [facility] ers mg tablet 9-14 TABLET BY ity o f 00:00: MOUTH EVERY 8 Medical HOURS Branch NEEDED pantoprazol 2-0 Yes 40mg Take 40 mg [facility] e 40 mg EC 9-14 by mouth ity o f tablet 00:00: daily. [place] [facility] traMADoL 50 2021-0 Yes TAKE 1 [facility] mg tablet 9-14 TABLET BY ity o f 00:00: MOUTH EVERY 8 Medical HOURS Branch NEEDED pantoprazol 2-0 Yes 40mg Take 40 mg [facility] e 40 mg EC 9-14 by mouth ity o f tablet 00:00: daily. [place] [facility] traMADoL 50 2021-0 Yes TAKE 1 [facility] mg tablet 9-14 TABLET BY ity o f 00:00: MOUTH EVERY 8 Medical HOURS Branch NEEDED pantoprazol 2-0 Yes 40mg Take 40 mg [facility] e 40 mg EC 9-14 by mouth ity o f tablet 00:00: daily. [place] [facility] traMADoL 50 2021-0 Yes TAKE 1 [facility] mg tablet 9-14 TABLET BY ity o f 00:00: MOUTH EVERY 8 Medical HOURS Branch NEEDED pantoprazol 2022-0 Yes 40mg Take 40 mg [facility] e 40 mg EC 9-14 by mouth ity o f tablet 00:00: daily. [place] [facility] traMADoL 50 2-0 Yes TAKE 1 [facility] ers mg tablet 9-14 TABLET BY ity o f 00:00: MOUTH EVERY 8 Medical HOURS Branch NEEDED pantoprazol 2022-0 Yes 40mg Take 40 mg [facility] e 40 mg EC 9-14 by mouth ity o f tablet 00:00: daily. [place] [facility] traMADoL 50 2-0 Yes TAKE 1 [facility] mg tablet 9-14 TABLET BY ity o f 00:00: MOUTH EVERY 8 Medical HOURS Branch NEEDED pantoprazol 2022-0 Yes 40mg Take 40 mg [facility] e 40 mg EC 9-14 by mouth ity o f tablet 00:00: daily. [place] [facility] traMADoL 50 2-0 Yes TAKE 1 [facility] mg tablet 9-14 TABLET BY ity o f 00:00: MOUTH EVERY 8 Medical HOURS Branch NEEDED pantoprazol 2022-0 Yes 40mg Take 40 mg [facility] e 40 mg EC 9-14 by mouth ity o f tablet 00:00: daily. [place] [facility] traMADoL 50 2-0 Yes TAKE 1 [facility] mg tablet 9-14 TABLET BY ity o f 00:00: MOUTH EVERY 8 Medical HOURS Branch NEEDED pantoprazol 2022-0 Yes 40mg Take 40 mg [facility] e 40 mg EC 9-14 by mouth ity o f tablet 00:00: daily. [place] [facility] traMADoL 50 2-0 Yes TAKE 1 [facility] mg tablet 9-14 TABLET BY ity o f 00:00: MOUTH EVERY 8 Medical HOURS Branch NEEDED pantoprazol 2022-0 Yes 40mg Take 40 mg [facility] e 40 mg EC 9-14 by mouth ity o f tablet 00:00: daily. [place] [facility] traMADoL 50 2-0 Yes TAKE 1 [facility] mg tablet 9-14 TABLET BY ity o f 00:00: MOUTH EVERY 8 Medical HOURS Branch NEEDED pantoprazol 2022-0 Yes 40mg Take 40 mg [facility] e 40 mg EC 9-14 by mouth ity o f tablet 00:00: daily. [place] [facility] traMADoL 50 2021-0 Yes TAKE 1 [facility] mg tablet 9-14 TABLET BY ity o f 00:00: MOUTH EVERY 8 Medical HOURS Branch NEEDED pantoprazol 2022-0 Yes 40mg Take 40 mg [facility] e 40 mg EC 9-14 by mouth ity o f tablet 00:00: daily. [place] [facility] traMADoL 50 2021-0 Yes TAKE 1 [facility] mg tablet 9-14 TABLET BY ity o f 00:00: MOUTH EVERY 8 Medical HOURS Branch NEEDED pantoprazol 2022-0 Yes 40mg Take 40 mg [facility] 40 mg EC 9-14 by mouth ity o f tablet 00:00: daily. [facility] traMADoL 50 2021-0 Yes TAKE 1 [facility] mg tablet 9-14 TABLET BY ity o f 00:00: MOUTH EVERY 8 [facility] HOURS [facility] NEEDED pantoprazol 2-0 Yes 40mg Take 40 mg [facility] 40 mg EC 9-14 by mouth ity o f tablet 00:00: daily. [facility] traMADoL 50 2021-0 Yes TAKE 1 [facility] mg tablet 9-14 TABLET BY ity o f 00:00: MOUTH EVERY 8 [facility] HOURS [facility] NEEDED pantoprazol 2-0 Yes 40mg Take 40 mg [facility] 40 mg EC 9-14 by mouth [facility] o f tablet 00:00: daily. [facility] traMADoL 50 2021-0 Yes TAKE 1 [facility] mg tablet 9-14 TABLET BY ity o f 00:00: MOUTH EVERY 8 [facility] HOURS [facility] NEEDED pantoprazol 2-0 Yes 40mg Take 40 mg [facility] 40 mg EC 9-14 by mouth it[facility] o f tablet 00:00: daily. [facility] traMADoL 50 2021-0 Yes TAKE 1 [facility] mg tablet 9-14 TABLET BY ity o f 00:00: MOUTH EVERY 8 [facility] HOURS [facility] NEEDED pantoprazol 2022-0 Yes 40mg Take 40 mg [facility] 40 mg EC 9-14 by mouth [facility] o f tablet 00:00: daily. [facility] traMADoL 50 2-0 Yes TAKE 1 [facility] mg tablet 9-14 TABLET BY ity o f 00:00: MOUTH EVERY 8 [facility] HOURS [facility] NEEDED pantoprazol 2022-0 Yes 40mg Take 40 mg [facility] 40 mg EC 9-14 by mouth it[facility] o f tablet 00:00: daily. [facility] traMADoL 50 2021-0 Yes TAKE 1 [facility] mg tablet 9-14 TABLET BY ity o f 00:00: MOUTH EVERY 8 Medical HOURS [facility] NEEDED pantoprazol 2-0 Yes 40mg Take 40 mg [facility] 40 mg EC 9-14 by mouth it[facility] o f tablet 00:00: daily. [facility] traMADoL 50 2021-0 Yes TAKE 1 [facility] mg tablet 9-14 TABLET BY ity o f 00:00: MOUTH EVERY 8 [facility] HOURS [facility] NEEDED pantoprazol 2-0 Yes 40mg Take 40 mg [facility] 40 mg EC 9-14 by mouth it[facility] o f tablet 00:00: daily. [facility] traMADoL 50 2021-0 Yes TAKE 1 [facility] mg tablet 9-14 TABLET BY ity o f 00:00: MOUTH EVERY 8 [facility] HOURS [facility] NEEDED pantoprazol 2-0 Yes 40mg Take 40 mg [facility] 40 mg EC 9-14 by mouth [facility] o f tablet 00:00: daily. [facility] traMADoL 50 2021-0 Yes TAKE 1 [facility] mg tablet 9-14 TABLET BY it[facility] o f 00:00: MOUTH EVERY 8 [facility] HOURS [facility] NEEDED pantoprazol 2-0 Yes 40mg Take 40 mg [facility] 40 mg EC 9-14 by mouth it[facility] o f tablet 00:00: daily. [facility] traMADoL 50 2021-0 Yes TAKE 1 [facility] mg tablet 9-14 TABLET BY ity o f 00:00: MOUTH EVERY 8 Medical HOURS [facility] NEEDED pantoprazol 2-0 Yes 40mg Take 40 mg [facility] 40 mg EC 9-14 by mouth it[facility] o f tablet 00:00: daily. [facility] traMADoL 50 2021-0 Yes TAKE 1 [facility] mg tablet 9-14 TABLET BY ity o f 00:00: MOUTH EVERY 8 Medical HOURS [facility] NEEDED pantoprazol 2-0 Yes 40mg Take 40 mg [facility] 40 mg EC 9-14 by mouth it[facility] o f tablet 00:00: daily. [facility] traMADoL 50 2021-0 Yes TAKE 1 [facility] mg tablet 9-14 TABLET BY it[facility] o f 00:00: MOUTH EVERY 8 [facility] HOURS [facility] NEEDED pantoprazol 2022-0 Yes 40mg Take 40 mg [facility] 40 mg EC 9-14 by mouth it[facility] o f tablet 00:00: daily. [facility] traMADoL 50 2-0 Yes TAKE 1 [facility] mg tablet 9-14 TABLET BY ity o f 00:00: MOUTH EVERY 8 [facility] HOURS [facility] NEEDED pantoprazol 2022-0 Yes 40mg Take 40 mg [facility] 40 mg EC 9-14 by mouth it[facility] o f tablet 00:00: daily. [facility] traMADoL 50 2-0 Yes TAKE 1 [facility] mg tablet 9-14 TABLET BY ity o f 00:00: MOUTH EVERY 8 [facility] HOURS [facility] NEEDED pantoprazol 2022-0 Yes 40mg Take 40 mg [facility] 40 mg EC 9-14 by mouth ity o f tablet 00:00: daily. [facility] traMADoL 50 2-0 Yes TAKE 1 [facility] mg tablet 9-14 TABLET BY ity o f 00:00: MOUTH EVERY 8 [facility] HOURS [facility] NEEDED pantoprazol 2022-0 Yes 40mg Take 40 mg [facility] 40 mg EC 9-14 by mouth ity o f tablet 00:00: daily. [facility] traMADoL 50 2-0 Yes TAKE 1 [facility] mg tablet 9-14 TABLET BY ity o f 00:00: MOUTH EVERY 8 Medical HOURS [facility] NEEDED pantoprazol 2022-0 Yes 40mg Take 40 mg [facility] 40 mg EC 9-14 by mouth ity o f tablet 00:00: daily. [facility] traMADoL 50 2-0 Yes TAKE 1 [facility] mg tablet 9-14 TABLET BY ity o f 00:00: MOUTH EVERY 8 [facility] HOURS [facility] NEEDED pantoprazol 2022-0 Yes 40mg Take 40 mg [facility] 40 mg EC 9-14 by mouth it[facility] o f tablet 00:00: daily. [facility] traMADoL 50 2-0 Yes TAKE 1 [facility] mg tablet 9-14 TABLET BY ity o f 00:00: MOUTH EVERY 8 [facility] HOURS [facility] NEEDED pantoprazol 2022-0 Yes 40mg Take 40 mg [facility] 40 mg EC 9-14 by mouth it[facility] o f tablet 00:00: daily. [facility] traMADoL 50 2021-0 Yes TAKE 1 [facility] mg tablet 9-14 TABLET BY ity o f 00:00: MOUTH EVERY 8 [facility] HOURS [facility] NEEDED pantoprazol 2022-0 Yes 40mg Take 40 mg [facility] 40 mg EC 9-14 by mouth ity o f tablet 00:00: daily. [facility] traMADoL 50 2021-0 Yes TAKE 1 [facility] mg tablet 9-14 TABLET BY ity o f 00:00: MOUTH EVERY 8 [facility] HOURS [facility] NEEDED pantoprazol 2022-0 Yes 40mg Take 40 mg [facility] 40 mg EC 9-14 by mouth ity o f tablet 00:00: daily. [facility] traMADoL 50 2021-0 Yes TAKE 1 [facility] mg tablet 9-14 TABLET BY ity o f 00:00: MOUTH EVERY 8 Medical HOURS [facility] NEEDED pantoprazol 2-0 Yes 40mg Take 40 mg [facility] 40 mg EC 9-14 by mouth ity o f tablet 00:00: daily. [facility] traMADoL 50 2021-0 Yes TAKE 1 [facility] mg tablet 9-14 TABLET BY ity o f 00:00: MOUTH EVERY 8 Medical HOURS [facility] NEEDED pantoprazol 2-0 Yes 40mg Take 40 mg [facility] 40 mg EC 9-14 by mouth ity o f tablet 00:00: daily. [facility] traMADoL 50 2021-0 Yes TAKE 1 [facility] mg tablet 9-14 TABLET BY ity o f 00:00: MOUTH EVERY 8 [facility] HOURS [facility] NEEDED pantoprazol 2-0 Yes 40mg Take 40 mg [facility] 40 mg EC 9-14 by mouth ity o f tablet 00:00: daily. [facility] traMADoL 50 2021-0 Yes TAKE 1 [facility] mg tablet 9-14 TABLET BY ity o f 00:00: MOUTH EVERY 8 Medical HOURS [facility] NEEDED pantoprazol 2022-0 Yes 40mg Take 40 mg [facility] 40 mg EC 9-14 by mouth ity o f tablet 00:00: daily. [facility] traMADoL 50 2-0 Yes TAKE 1 [facility] mg tablet 9-14 TABLET BY ity o f 00:00: MOUTH EVERY 8 [facility] HOURS [facility] NEEDED pantoprazol 2022-0 Yes 40mg Take 40 mg [facility] 40 mg EC 9-14 by mouth ity o f tablet 00:00: daily. [facility] traMADoL 50 2021-0 Yes TAKE 1 [facility] mg tablet 9-14 TABLET BY ity o f 00:00: MOUTH EVERY 8 Medical HOURS [facility] NEEDED pantoprazol 2-0 Yes 40mg Take 40 mg [facility] 40 mg EC 9-14 by mouth ity o f tablet 00:00: daily. [facility] traMADoL 50 2021-0 Yes TAKE 1 [facility] mg tablet 9-14 TABLET BY ity o f 00:00: MOUTH EVERY 8 [facility] HOURS [facility] NEEDED pantoprazol 2-0 Yes 40mg Take 40 mg [facility] 40 mg EC 9-14 by mouth ity o f tablet 00:00: daily. [facility] traMADoL 50 2021-0 Yes TAKE 1 [facility] mg tablet 9-14 TABLET BY ity o f 00:00: MOUTH EVERY 8 [facility] HOURS [facility] NEEDED pantoprazol 2-0 Yes 40mg Take 40 mg [facility] 40 mg EC 9-14 by mouth ity o f tablet 00:00: daily. [facility] traMADoL 50 2021-0 Yes TAKE 1 [facility] mg tablet 9-14 TABLET BY ity o f 00:00: MOUTH EVERY 8 Medical HOURS [facility] NEEDED pantoprazol 2-0 Yes 40mg Take 40 mg [facility] 40 mg EC 9-14 by mouth ity o f tablet 00:00: daily. [facility] traMADoL 50 2021-0 Yes TAKE 1 [facility] mg tablet 9-14 TABLET BY ity o f 00:00: MOUTH EVERY 8 Medical HOURS [facility] NEEDED pantoprazol 2-0 Yes 40mg Take 40 mg [facility] 40 mg EC 9-14 by mouth ity o f tablet 00:00: daily. [facility] traMADoL 50 2021-0 Yes TAKE 1 [facility] mg tablet 9-14 TABLET BY ity o f 00:00: MOUTH EVERY 8 Medical HOURS [facility] NEEDED pantoprazol 2-0 Yes 40mg Take 40 mg [facility] 40 mg EC 9-14 by mouth ity o f tablet 00:00: daily. [facility] traMADoL 50 2021-0 Yes TAKE 1 [facility] mg tablet 9-14 TABLET BY ity o f 00:00: MOUTH EVERY 8 Medical HOURS [facility] NEEDED pantoprazol 2022-0 Yes 40mg Take 40 mg [facility] 40 mg EC 9-14 by mouth ity o f tablet 00:00: daily. [facility] traMADoL 50 2-0 Yes TAKE 1 [facility] mg tablet 9-14 TABLET BY ity o f 00:00: MOUTH EVERY 8 Medical HOURS [facility] NEEDED pantoprazol 2022-0 Yes 40mg Take 40 mg [facility] 40 mg EC 9-14 by mouth ity o f tablet 00:00: daily. [facility] traMADoL 50 2-0 Yes TAKE 1 [facility] mg tablet 9-14 TABLET BY ity o f 00:00: MOUTH EVERY 8 Medical HOURS [facility] NEEDED pantoprazol 2022-0 Yes 40mg Take 40 mg [facility] 40 mg EC 9-14 by mouth ity o f tablet 00:00: daily. [facility] traMADoL 50 2-0 Yes TAKE 1 [facility] mg tablet 9-14 TABLET BY ity o f 00:00: MOUTH EVERY 8 Medical HOURS [facility] NEEDED pantoprazol 2022-0 Yes 40mg Take 40 mg [facility] 40 mg EC 9-14 by mouth ity o f tablet 00:00: daily. [facility] traMADoL 50 2-0 Yes TAKE 1 [facility] mg tablet 9-14 TABLET BY ity o f 00:00: MOUTH EVERY 8 Medical HOURS [facility] NEEDED pantoprazol 2022-0 Yes 40mg Take 40 mg [facility] 40 mg EC 9-14 by mouth ity o f tablet 00:00: daily. [facility] traMADoL 50 2-0 Yes TAKE 1 [facility] mg tablet 9-14 TABLET BY ity o f 00:00: MOUTH EVERY 8 Medical HOURS [facility] NEEDED pantoprazol 2022-0 Yes 40mg Take 40 mg [facility] 40 mg EC 9-14 by mouth ity o f tablet 00:00: daily. [facility] traMADoL 50 2-0 Yes TAKE 1 [facility] mg tablet 9-14 TABLET BY ity o f 00:00: MOUTH EVERY 8 Medical HOURS [facility] NEEDED pantoprazol 2022-0 Yes 40mg Take 40 mg [facility] 40 mg EC 9-14 by mouth ity o f tablet 00:00: daily. [facility] traMADoL 50 2021-0 Yes TAKE 1 [facility] mg tablet 9-14 TABLET BY ity o f 00:00: MOUTH [place] EVERY 8 Medical HOURS Branch NEEDED pantoprazol 2021-0 Yes 40mg Take 40 mg [facility] 40 mg EC 9-14 by mouth ity o f tablet 00:00: daily. [facility] traMADoL 50 2021-0 Yes TAKE 1 [facility] mg tablet 9-14 TABLET BY ity o f 00:00: MOUTH [place] EVERY 8 Medical HOURS Branch NEEDED pantoprazol 2021-0 Yes 40mg Take 40 mg [facility] 40 mg EC 9-14 by mouth ity o f tablet 00:00: daily. [facility] traMADoL 50 2021-0 Yes TAKE 1 [facility] mg tablet 9-14 TABLET BY ity o f 00:00: MOUTH [place] EVERY 8 Medical HOURS Branch NEEDED pantoprazol 2021-0 Yes 40mg Take 40 mg [facility] 40 mg EC 9-14 by mouth ity o f tablet 00:00: daily. [facility] traMADoL 50 2021-0 Yes TAKE 1 [facility] mg tablet 9-14 TABLET BY ity o f 00:00: MOUTH EVERY 8 Medical HOURS [facility] NEEDED pantoprazol 2021-0 Yes 40mg Take 40 mg [facility] 40 mg EC 9-14 by mouth ity o f tablet 00:00: daily. [facility] traMADoL 50 2021-0 Yes TAKE 1 [facility] mg tablet 9-14 TABLET BY ity o f 00:00: MOUTH EVERY 8 Medical HOURS Branch NEEDED Tramadol 2021-0 Yes 50mg [id number] Take 1 [facility] HCl 9-14 [id number] tablet (50 [facility] (ULTRAM) 50 00:00: 3D mg total) - MG oral 00 by mouth Externa Tablet every 8 l hours as needed Pantoprazol 2021-0 2022- No 40mg Take 1 [facility] Sodium 40 9-14 04-10 tablet (40 S [facility] MG oral 00:00: 00:00 mg total) - Tablet 00 :00 by mouth Externa Delayed daily l Response metoclopram 2021-0 Yes [id number] 10mg Take 1 [facility] HCl 8-31 tablet by it[facility] of (REGLAN) 10 00:00: mouth [place] mg tablet 00 before Medical meals. Branch metoclopram 2022-0 Yes [id number] 10mg Take 1 [facility] HCl 8-31 tablet by ity of (REGLAN) 10 00:00: mouth [place] mg tablet 00 before Medical meals. Branch metoclopram 2022-0 Yes [id number] 10mg Take 1 [facility] HCl 8-31 tablet by ity of (REGLAN) 10 00:00: mouth [place] mg tablet 00 before Medical meals. Branch metoclopram 2022-0 Yes [id number] 10mg Take 1 [facility] HCl 8-31 tablet by ity of (REGLAN) 10 00:00: mouth [place] mg tablet 00 before Medical meals. Branch metoclopram 2022-0 Yes [id number] 10mg Take 1 [facility] HCl 8-31 tablet by ity of (REGLAN) 10 00:00: mouth [place] mg tablet 00 before Medical meals. Branch metoclopram 2022-0 Yes [id number] 10mg Take 1 [facility] HCl 8-31 tablet by ity of (REGLAN) 10 00:00: mouth [place] mg tablet 00 before Medical meals. Branch metoclopram 2022-0 Yes [id number] 10mg Take 1 [facility] HCl 8-31 tablet by ity of (REGLAN) 10 00:00: mouth [place] mg tablet 00 before Medical meals. Branch metoclopram 2022-0 Yes [id number] 10mg Take 1 [facility] HCl 8-31 tablet by ity of (REGLAN) 10 00:00: mouth [place] mg tablet 00 before Medical meals. Branch metoclopram 2022-0 Yes [id number] 10mg Take 1 [facility] HCl 8-31 tablet by ity of (REGLAN) 10 00:00: mouth [place] mg tablet 00 before Medical meals. Branch metoclopram 2022-0 Yes [id number] 10mg Take 1 [facility] HCl 8-31 tablet by ity of (REGLAN) 10 00:00: mouth [place] mg tablet 00 before Medical meals. Branch metoclopram 2022-0 Yes [id number] 10mg Take 1 [facility] HCl 8-31 tablet by ity of (REGLAN) 10 00:00: mouth [place] mg tablet 00 before Medical meals. Branch metoclopram 2022-0 Yes [id number] 10mg Take 1 [facility] HCl 8-31 tablet by ity of (REGLAN) 10 00:00: mouth [place] mg tablet 00 before Medical meals. Branch metoclopram 2022-0 Yes [id number] 10mg Take 1 [facility] HCl 8-31 tablet by ity of (REGLAN) 10 00:00: mouth [place] mg tablet 00 before Medical meals. Branch metoclopram 2022-0 Yes [id number] 10mg Take 1 [facility] HCl 8-31 tablet by ity of (REGLAN) 10 00:00: mouth [place] mg tablet 00 before Medical meals. Branch metoclopram 2022-0 Yes [id number] 10mg Take 1 [facility] HCl 8-31 tablet by ity of (REGLAN) 10 00:00: mouth [place] mg tablet 00 before Medical meals. Branch metoclopram 2022-0 Yes [id number] 10mg Take 1 [facility] HCl 8-31 tablet by ity of (REGLAN) 10 00:00: mouth [place] mg tablet 00 before Medical meals. Branch metoclopram 2022-0 Yes [id number] 10mg Take 1 [facility] HCl 8-31 tablet by ity of (REGLAN) 10 00:00: mouth [place] mg tablet 00 before Medical meals. Branch metoclopram 2022-0 Yes [id number] 10mg Take 1 [facility] HCl 8-31 tablet by ity of (REGLAN) 10 00:00: mouth [place] mg tablet 00 before Medical meals. Branch metoclopram 2022-0 Yes [id number] 10mg Take 1 [facility] HCl 8-31 tablet by ity of (REGLAN) 10 00:00: mouth [place] mg tablet 00 before Medical meals. Branch metoclopram 2022-0 Yes [id number] 10mg Take 1 [facility] HCl 8-31 tablet by ity of (REGLAN) 10 00:00: mouth [place] mg tablet 00 before Medical meals. Branch metoclopram 2022-0 Yes [id number] 10mg Take 1 [facility] HCl 8-31 tablet by ity of (REGLAN) 10 00:00: mouth [place] mg tablet 00 before Medical meals. Branch metoclopram 2022-0 Yes [id number] 10mg Take 1 [facility] HCl 8-31 tablet by ity of (REGLAN) 10 00:00: mouth [place] mg tablet 00 before Medical meals. Branch metoclopram 2022-0 Yes [id number] 10mg Take 1 [facility] HCl 8-31 tablet by ity of (REGLAN) 10 00:00: mouth [place] mg tablet 00 before Medical meals. Branch metoclopram 2022-0 Yes [id number] 10mg Take 1 [facility] HCl 8-31 tablet by ity of (REGLAN) 10 00:00: mouth [place] mg tablet 00 before Medical meals. Branch metoclopram 2022-0 Yes [id number] 10mg Take 1 [facility] HCl 8-31 tablet by ity of (REGLAN) 10 00:00: mouth [place] mg tablet 00 before Medical meals. Branch metoclopram 2022-0 Yes [id number] 10mg Take 1 [facility] HCl 8-31 tablet by ity of (REGLAN) 10 00:00: mouth [place] mg tablet 00 before Medical meals. Branch metoclopram 2022-0 Yes [id number] 10mg Take 1 [facility] HCl 8-31 tablet by ity of (REGLAN) 10 00:00: mouth [place] mg tablet 00 before Medical meals. Branch metoclopram 2022-0 Yes [id number] 10mg Take 1 [facility] HCl 8-31 tablet by ity of (REGLAN) 10 00:00: mouth [place] mg tablet 00 before Medical meals. Branch metoclopram 2022-0 Yes [id number] 10mg Take 1 [facility] HCl 8-31 tablet by ity of (REGLAN) 10 00:00: mouth [place] mg tablet 00 before Medical meals. Branch metoclopram 2022-0 Yes [id number] 10mg Take 1 [facility] HCl 8-31 tablet by ity of (REGLAN) 10 00:00: mouth [place] mg tablet 00 before Medical meals. Branch metoclopram 2022-0 Yes [id number] 10mg Take 1 [facility] HCl 8-31 tablet by ity of (REGLAN) 10 00:00: mouth [place] mg tablet 00 before Medical meals. Branch metoclopram 2022-0 Yes [id number] 10mg Take 1 [facility] HCl 8-31 tablet by ity of (REGLAN) 10 00:00: mouth [place] mg tablet 00 before Medical meals. Branch metoclopram 2022-0 Yes [id number] 10mg Take 1 [facility] HCl 8-31 tablet by ity of (REGLAN) 10 00:00: mouth [place] mg tablet 00 before Medical meals. Branch metoclopram 2022-0 Yes [id number] 10mg Take 1 [facility] HCl 8-31 tablet by ity of (REGLAN) 10 00:00: mouth [place] mg tablet 00 before Medical meals. Branch metoclopram 2022-0 Yes [id number] 10mg Take 1 [facility] HCl 8-31 tablet by ity of (REGLAN) 10 00:00: mouth [place] mg tablet 00 before Medical meals. Branch metoclopram 2022-0 Yes [id number] 10mg Take 1 [facility] HCl 8-31 tablet by ity of (REGLAN) 10 00:00: mouth [place] mg tablet 00 before Medical meals. Branch metoclopram 2022-0 Yes [id number] 10mg Take 1 [facility] HCl 8-31 tablet by ity of (REGLAN) 10 00:00: mouth [place] mg tablet 00 before Medical meals. Branch metoclopram 2022-0 Yes [id number] 10mg Take 1 [facility] HCl 8-31 tablet by ity of (REGLAN) 10 00:00: mouth [place] mg tablet 00 before Medical meals. Branch metoclopram 2022-0 Yes [id number] 10mg Take 1 [facility] HCl 8-31 tablet by ity of (REGLAN) 10 00:00: mouth [place] mg tablet 00 before Medical meals. Branch metoclopram 2022-0 Yes [id number] 10mg Take 1 [facility] HCl 8-31 tablet by ity of (REGLAN) 10 00:00: mouth [place] mg tablet 00 before Medical meals. Branch metoclopram 2022-0 Yes [id number] 10mg Take 1 [facility] HCl 8-31 tablet by ity of (REGLAN) 10 00:00: mouth [place] mg tablet 00 before Medical meals. Branch metoclopram 2022-0 Yes [id number] 10mg Take 1 [facility] HCl 8-31 tablet by ity of (REGLAN) 10 00:00: mouth [place] mg tablet 00 before Medical meals. Branch metoclopram 2022-0 Yes [id number] 10mg Take 1 [facility] HCl 8-31 tablet by ity of (REGLAN) 10 00:00: mouth [place] mg tablet 00 before Medical meals. Branch metoclopram 2022-0 Yes [id number] 10mg Take 1 [facility] HCl 8-31 tablet by ity of (REGLAN) 10 00:00: mouth [place] mg tablet 00 before Medical meals. Branch metoclopram 2022-0 Yes [id number] 10mg Take 1 [facility] HCl 8-31 tablet by ity of (REGLAN) 10 00:00: mouth [place] mg tablet 00 before Medical meals. Branch metoclopram 2022-0 Yes [id number] 10mg Take 1 [facility] HCl 8-31 tablet by ity of (REGLAN) 10 00:00: mouth [place] mg tablet 00 before Medical meals. Branch metoclopram 2022-0 Yes [id number] 10mg Take 1 [facility] HCl 8-31 tablet by ity of (REGLAN) 10 00:00: mouth [place] mg tablet 00 before Medical meals. Branch metoclopram 2022-0 Yes [id number] 10mg Take 1 [facility] HCl 8-31 tablet by ity of (REGLAN) 10 00:00: mouth [place] mg tablet 00 before Medical meals. Branch metoclopram 2022-0 Yes [id number] 10mg Take 1 [facility] HCl 8-31 tablet by ity of (REGLAN) 10 00:00: mouth [place] mg tablet 00 before Medical meals. Branch metoclopram 2022-0 Yes [id number] 10mg Take 1 [facility] HCl 8-31 tablet by ity of (REGLAN) 10 00:00: mouth [place] mg tablet 00 before Medical meals. Branch metoclopram 2022-0 Yes [id number] 10mg Take 1 [facility] HCl 8-31 tablet by ity of (REGLAN) 10 00:00: mouth [place] mg tablet 00 before Medical meals. Branch metoclopram 2022-0 Yes [id number] 10mg Take 1 [facility] HCl 8-31 tablet by ity of (REGLAN) 10 00:00: mouth [place] mg tablet 00 before Medical meals. Branch metoclopram 2022-0 Yes [id number] 10mg Take 1 [facility] HCl 8-31 tablet by ity of (REGLAN) 10 00:00: mouth [place] mg tablet 00 before Medical meals. Branch metoclopram 2022-0 Yes [id number] 10mg Take 1 [facility] HCl 8-31 tablet by ity of (REGLAN) 10 00:00: mouth [place] mg tablet 00 before Medical meals. Branch metoclopram 2022-0 Yes [id number] 10mg Take 1 [facility] HCl 8-31 tablet by ity of (REGLAN) 10 00:00: mouth [place] mg tablet 00 before Medical meals. Branch metoclopram 2022-0 Yes [id number] 10mg Take 1 [facility] HCl 8-31 tablet by ity of (REGLAN) 10 00:00: mouth [place] mg tablet 00 before Medical meals. Branch metoclopram 2022-0 Yes [id number] 10mg Take 1 [facility] HCl 8-31 tablet by ity of (REGLAN) 10 00:00: mouth [place] mg tablet 00 before Medical meals. Branch metoclopram 2022-0 Yes [id number] 10mg Take 1 [facility] HCl 8-31 tablet by ity of (REGLAN) 10 00:00: mouth [place] mg tablet 00 before Medical meals. Branch metoclopram 2022-0 Yes [id number] 10mg Take 1 [facility] HCl 8-31 tablet by ity of (REGLAN) 10 00:00: mouth [place] mg tablet 00 before Medical meals. Branch metoclopram 2022-0 Yes [id number] 10mg Take 1 [facility] HCl 8-31 tablet by ity of (REGLAN) 10 00:00: mouth [place] mg tablet 00 before Medical meals. Branch metoclopram 2022-0 Yes [id number] 10mg Take 1 [facility] HCl 8-31 tablet by ity of (REGLAN) 10 00:00: mouth [place] mg tablet 00 before Medical meals. Branch metoclopram 2022-0 Yes [id number] 10mg Take 1 [facility] HCl 8-31 tablet by ity of (REGLAN) 10 00:00: mouth [place] mg tablet 00 before Medical meals. Branch metoclopram 2022-0 Yes [id number] 10mg Take 1 [facility] HCl 8-31 tablet by ity of (REGLAN) 10 00:00: mouth [place] mg tablet 00 before Medical meals. Branch metoclopram 2022-0 Yes [id number] 10mg Take 1 [facility] HCl 8-31 tablet by ity of (REGLAN) 10 00:00: mouth [place] mg tablet 00 before Medical meals. Branch metoclopram 2022-0 Yes [id number] 10mg Take 1 [facility] HCl 8-31 tablet by ity of (REGLAN) 10 00:00: mouth [place] mg tablet 00 before Medical meals. Branch metoclopram 2022-0 Yes [id number] 10mg Take 1 [facility] HCl 8-31 tablet by ity of (REGLAN) 10 00:00: mouth [place] mg tablet 00 before Medical meals. Branch metoclopram 2022-0 Yes [id number] 10mg Take 1 [facility] HCl 8-31 tablet by ity of (REGLAN) 10 00:00: mouth [place] mg tablet 00 before Medical meals. Branch metoclopram 2022-0 Yes [id number] 10mg Take 1 [facility] HCl 8-31 tablet by ity of (REGLAN) 10 00:00: mouth [place] mg tablet 00 before Medical meals. Branch metoclopram 2022-0 Yes [id number] 10mg Take 1 [facility] HCl 8-31 tablet by ity of (REGLAN) 10 00:00: mouth [place] mg tablet 00 before Medical meals. Branch metoclopram 2022-0 Yes [id number] 10mg Take 1 [facility] HCl 8-31 tablet by ity of (REGLAN) 10 00:00: mouth [place] mg tablet 00 before Medical meals. Branch metoclopram 2022-0 Yes [id number] 10mg Take 1 [facility] HCl 8-31 tablet by ity of (REGLAN) 10 00:00: mouth [place] mg tablet 00 before Medical meals. Branch metoclopram 2022-0 Yes [id number] 10mg Take 1 [facility] HCl 8-31 tablet by ity of (REGLAN) 10 00:00: mouth [place] mg tablet 00 before Medical meals. Branch metoclopram 2022-0 Yes [id number] 10mg Take 1 [facility] HCl 8-31 tablet by ity of (REGLAN) 10 00:00: mouth [place] mg tablet 00 before Medical meals. Branch metoclopram 2022-0 Yes [id number] 10mg Take 1 [facility] HCl 8-31 tablet by ity of (REGLAN) 10 00:00: mouth [place] mg tablet 00 before Medical meals. Branch metoclopram 2022-0 Yes [id number] 10mg Take 1 [facility] HCl 8-31 tablet by ity of (REGLAN) 10 00:00: mouth [place] mg tablet 00 before Medical meals. Branch metoclopram 2022-0 Yes [id number] 10mg Take 1 [facility] HCl 8-31 tablet by ity of (REGLAN) 10 00:00: mouth [place] mg tablet 00 before Medical meals. Branch metoclopram 2022-0 Yes [id number] 10mg Take 1 [facility] HCl 8-31 tablet by ity of (REGLAN) 10 00:00: mouth [place] mg tablet 00 before Medical meals. Branch metoclopram 2-0 Yes [id number] 10mg Take 1 [facility] HCl 8-31 tablet by ity of (REGLAN) 10 00:00: mouth [place] mg tablet 00 before Medical meals. Branch metoclopram 2-0 Yes [id number] 10mg Take 1 [facility] HCl 8-31 tablet by ity of (REGLAN) 10 00:00: mouth [place] mg tablet 00 before Medical meals. Branch metoclopram 2-0 Yes [id number] 10mg Take 1 [facility] HCl 8-31 tablet by ity of (REGLAN) 10 00:00: mouth [place] mg tablet 00 before Medical meals. Branch Metoclopram 2021-0 Yes 10mg Take 1 [facility] HCl 10 8-31 tablet (10 [facility] MG oral 00:00: mg total) - Tablet 00 by mouth Externa every l morning (before breakfast) pravastatin 2021-0 Yes [facility] (Pravachol[facility] 8-26 [facility] 10 MG 00:00: tablet 00 pravastatin 2021-0 Yes [facility] (Pravachol[facility] 8-26 [facility] 10 MG 00:00: tablet 00 pravastatin 2021-0 Yes 10mg Take 10 mg [facility] (Pravachol) 8-26 by mouth [facility] 10 MG 00:00: every tablet 00 night. topiramate 2021-0 Yes [id number] 100mg Take 1 [facility] 100 mg 8-26 tablet by [facility] of tablet 00:00: mouth 2 [place] 00 (two) [facility] times [facility] daily. baclofen 5 2021-0 Yes [id number] 5mg Take 1 [facility] mg tablet 8-26 9102 tablet by it[facility] o f 00:00: mouth 3 [place] 00 (three) Medical times [facility] daily. albuterol 2021-0 Yes [id number] 2{puff} Inhale 2 [facility] 90 8-26 Puffs [facility] of mcg/actuati 00:00: every 6 [place] as on inhaler 00 (six) Medical hours as Branch needed for Wheezing or Shortness of Breath. omeprazole 2-0 Yes [id number] 40mg Take 2 [facility] 20 mg 8-26 capsules [facility] capsule 00:00: [place] mouth [place] (two) [facility] times [facility] daily. pravastatin 2-0 Yes [id number] 10mg Take 1 [facility] 10 mg 8-26 tablet by [facility] of tablet 00:00: mouth at [place] 00 bedtime. [facility] topiramate 2021-0 Yes [id number] 100mg Take 1 [facility] 100 mg 8-26 tablet by [facility] of tablet 00:00: mouth 2 00 (two) Medical times [facility] daily. baclofen 5 2021-0 Yes [id number] 5mg Take 1 [facility] mg tablet 8-26 9102 tablet by ity o f 00:00: mouth 3 00 (three) Medical times [facility] daily. albuterol 2021-0 Yes [id number] 2{puff} Inhale 2 [facility] 90 8-26 Puffs [facility]y of mcg/actuati 00:00: every 6 [place] as on inhaler 00 (six) Medical hours as [facility] needed for Wheezing or Shortness of Breath. omeprazole 2021-0 Yes [id number] 40mg Take 2 [facility] 20 mg 8-26 capsules [facility] capsule 00:00: by mouth [place] (two) [facility] times [facility] daily. pravastatin 2021-0 Yes [id number] 10mg Take 1 [facility] 10 mg 8-26 tablet by [facility] of tablet 00:00: mouth at [place] 00 bedtime. [facility] topiramate 2021-0 Yes [id number] 100mg Take 1 [facility] 100 mg 8-26 tablet by [facility] of tablet 00:00: mouth 2 (two) Medical times [facility] daily. baclofen 5 2021-0 Yes [id number] 5mg Take 1 [facility] mg tablet 8-26 9102 tablet by [facility] o f 00:00: mouth 3 (three) Medical times [facility] daily. albuterol 2021-0 Yes [id number] 2{puff} Inhale 2 [facility] 90 8-26 Puffs [facility]y of mcg/actuati 00:00: every 6 [place] as on inhaler 00 (six) Medical hours as [facility] needed for Wheezing or Shortness of Breath. omeprazole 2-0 Yes [id number] 40mg Take 2 [facility] 20 mg 8-26 capsules [facility] capsule 00:00: by mouth [place] 00 (two) [facility] times [facility] daily. pravastatin 2022-0 Yes [id number] 10mg Take 1 [facility] 10 mg 8-26 tablet by [facility] of tablet 00:00: mouth at [place] 00 bedtime. [facility] topiramate 2021-0 Yes [id number] 100mg Take 1 [facility] 100 mg 8-26 tablet by [facility] of tablet 00:00: mouth 2 (two) Medical times [facility] daily. baclofen 5 2021-0 Yes [id number] 5mg Take 1 [facility] mg tablet 8-26 9102 tablet by [facility] o f 00:00: mouth 3 (three) Medical times [facility] daily. albuterol 2021-0 Yes [id number] 2{puff} Inhale 2 [facility] 90 8-26 Puffs [facility] of mcg/actuati 00:00: every 6 [place] as on inhaler 00 (six) Medical hours as [facility] needed for Wheezing or Shortness of Breath. omeprazole 2021-0 Yes [id number] 40mg Take 2 [facility] 20 mg 8-26 capsules [facility] capsule 00:00: [place] mouth [place] ([place] [facility] times [facility] daily. pravastatin 2021-0 Yes [id number] 10mg Take 1 [facility] 10 mg 8-26 tablet by [facility] of tablet 00:00: mouth at [place] 00 bedtime. [facility] topiramate 2021-0 Yes [id number] 100mg Take 1 [facility] 100 mg 8-26 tablet by [facility] of tablet 00:00: mouth 2 (two) Medical times [facility] daily. baclofen 5 2021-0 Yes [id number] 5mg Take 1 [facility] mg tablet 8-26 9102 tablet by ity o f 00:00: mouth 3 (three) Medical times [facility] daily. albuterol 2021-0 Yes [id number] 2{puff} Inhale 2 [facility] 90 8-26 Puffs [facility]y of mcg/actuati 00:00: every 6 [place] as on inhaler 00 (six) Medical hours as [facility] needed for Wheezing or Shortness of Breath. omeprazole 2-0 Yes [id number] 40mg Take 2 [facility] 20 mg 8-26 capsules [facility] capsule 00:00: [place] mouth [place] ([place] [facility] times [facility] daily. pravastatin 2022-0 Yes [id number] 10mg Take 1 [facility] 10 mg 8-26 tablet by [facility] of tablet 00:00: mouth at 00 bedtime. [facility] topiramate 2021-0 Yes [id number] 100mg Take 1 [facility] 100 mg 8-26 tablet by [facility] of tablet 00:00: mouth 2 [place] 00 (two) Medical times [facility] daily. baclofen 5 2021-0 Yes [id number] 5mg Take 1 [facility] mg tablet 8-26 9102 tablet by ity o f 00:00: mouth 3 (three) Medical times [facility] daily. albuterol 2021-0 Yes [id number] 2{puff} Inhale 2 [facility] 90 8-26 Puffs [facility]y of mcg/actuati 00:00: every 6 [place] as on inhaler 00 (six) Medical hours as [facility] needed for Wheezing or Shortness of Breath. omeprazole 2021-0 Yes [id number] 40mg Take 2 [facility] 20 mg 8-26 capsules [facility] capsule 00:00: by mouth 2 [place] (two) [facility] times [facility] daily. pravastatin 2021-0 Yes [id number] 10mg Take 1 [facility] 10 mg 8-26 tablet by [facility] of tablet 00:00: mouth at [place] 00 bedtime. [facility] topiramate 2021-0 Yes [id number] 100mg Take 1 [facility] 100 mg 8-26 tablet by [facility] of tablet 00:00: mouth 2 (two) Medical times [facility] daily. baclofen 5 2021-0 Yes [id number] 5mg Take 1 [facility] mg tablet 8-26 9102 tablet by ity o f 00:00: mouth 3 (three) Medical times [facility] daily. albuterol 2021-0 Yes [id number] 2{puff} Inhale 2 [facility] 90 8-26 Puffs [facility]y of mcg/actuati 00:00: every 6 [place] as on inhaler 00 (six) Medical hours as [facility] needed for Wheezing or Shortness of Breath. omeprazole 2021-0 Yes [id number] 40mg Take 2 [facility] 20 mg 8-26 capsules [facility] of capsule 00:00: by mouth 2 [facility] (two) [facility] times [facility] daily. pravastatin 2-0 Yes [id number] 10mg Take 1 [facility] 10 mg 8-26 tablet by [facility] of tablet 00:00: mouth at [place] 00 bedtime. [facility] topiramate 2-0 Yes [id number] 100mg Take 1 [facility] 100 mg 8-26 tablet by [facility] of tablet 00:00: mouth 2 00 (two) Medical times [facility] daily. baclofen 5 2021-0 Yes [id number] 5mg Take 1 [facility] mg tablet 8-26 9102 tablet by [facility]y o f 00:00: mouth 3 (three) Medical times [facility] daily. albuterol 2021-0 Yes [id number] 2{puff} Inhale 2 [facility] 90 8-26 Puffs ity of mcg/actuati 00:00: every 6 [place] as on inhaler 00 (six) Medical hours as [facility] needed for Wheezing or Shortness of Breath. omeprazole 2021-0 Yes [id number] 40mg Take 2 [facility] 20 mg 8-26 capsules [facility] of capsule 00:00: by mouth [place] (two) [facility] times [facility] daily. pravastatin 2021-0 Yes [id number] 10mg Take 1 [facility] 10 mg 8-26 tablet by [facility] of tablet 00:00: mouth at 00 bedtime. [facility] topiramate 2021-0 Yes [id number] 100mg Take 1 [facility] 100 mg 8-26 tablet by [facility] of tablet 00:00: mouth 2 (two) Medical times [facility] daily. baclofen 5 2021-0 Yes [id number] 5mg Take 1 [facility] mg tablet 8-26 9102 tablet by ity o f 00:00: mouth 3 (three) Medical times [facility] daily. albuterol 2021-0 Yes [id number] 2{puff} Inhale 2 [facility] 90 8-26 Puffs ity of mcg/actuati 00:00: every 6 [place] as on inhaler 00 (six) Medical hours as [facility] needed for Wheezing or Shortness of Breath. omeprazole 2021-0 Yes [id number] 40mg Take 2 [facility] 20 mg 8-26 capsules ity of capsule 00:00: by mouth 2 (two) Medical times [facility] daily. pravastatin 2021-0 Yes [id number] 10mg Take 1 [facility] 10 mg 8-26 tablet by [facility] of tablet 00:00: mouth at 00 bedtime. [facility] topiramate 2021-0 Yes [id number] 100mg Take 1 [facility] 100 mg 8-26 tablet by [facility] of tablet 00:00: mouth 2 (two) Medical times [facility] daily. baclofen 5 2021-0 Yes [id number] 5mg Take 1 [facility] mg tablet 8-26 9102 tablet by ity o f 00:00: mouth 3 (three) Medical times [facility] daily. albuterol 2021-0 Yes [id number] 2{puff} Inhale 2 [facility] 90 8-26 Puffs ity of mcg/actuati 00:00: every 6 [place] as on inhaler 00 (six) Medical hours as [facility] needed for Wheezing or Shortness of Breath. omeprazole 2021-0 Yes [id number] 40mg Take 2 [facility] 20 mg 8-26 capsules [facility] of capsule 00:00: by mouth [place] (two) [facility] times [facility] daily. pravastatin 2021-0 Yes [id number] 10mg Take 1 [facility] 10 mg 8-26 tablet by [facility] of tablet 00:00: mouth at [place] 00 bedtime. [facility] topiramate 2021-0 Yes [id number] 100mg Take 1 [facility] 100 mg 8-26 tablet by [facility] of tablet 00:00: mouth (two) Medical times [facility] daily. baclofen 5 2021-0 Yes [id number] 5mg Take 1 [facility] mg tablet 8-26 9102 tablet by ity o f 00:00: mouth 3 (three) Medical times [facility] daily. albuterol 2021-0 Yes [id number] 2{puff} Inhale 2 [facility] 90 8-26 Puffs [facility]y of mcg/actuati 00:00: every 6 [place] on inhaler 00 (six) Medical hours as [facility] needed for Wheezing or Shortness of Breath. omeprazole 2021-0 Yes [id number] 40mg Take 2 [facility] 20 mg 8-26 capsules [facility] capsule 00:00: [place] mouth [place] ([place] [facility] times [facility] daily. pravastatin 2021-0 Yes [id number] 10mg Take 1 [facility] 10 mg 8-26 tablet by [facility] of tablet 00:00: mouth at 00 bedtime. [facility] topiramate 2021-0 Yes [id number] 100mg Take 1 [facility] 100 mg 8-26 tablet by [facility] of tablet 00:00: mouth (two) Medical times [facility] daily. baclofen 5 2021-0 Yes [id number] 5mg Take 1 [facility] mg tablet 8-26 9102 tablet by ity o f 00:00: mouth 3 (three) Medical times [facility] daily. albuterol 2021-0 Yes [id number] 2{puff} Inhale 2 [facility] 90 8-26 Puffs [facility]y of mcg/actuati 00:00: every 6 [place] on inhaler 00 (six) Medical hours as [facility] needed for Wheezing or Shortness of Breath. omeprazole 2021-0 Yes [id number] 40mg Take 2 [facility] 20 mg 8-26 capsules [facility] of capsule 00:00: by mouth [place] 00 (two) [facility] times [facility] daily. pravastatin 2021-0 Yes [id number] 10mg Take 1 [facility] 10 mg 8-26 tablet by [facility] of tablet 00:00: mouth at 00 bedtime. [facility] topiramate 2021-0 Yes [id number] 100mg Take 1 [facility] 100 mg 8-26 tablet by [facility]y of tablet 00:00: mouth 2 00 (two) Medical times [facility] daily. baclofen 5 2021-0 Yes [id number] 5mg Take 1 [facility] mg tablet 8-26 9102 tablet by ity o f 00:00: mouth 3 (three) Medical times [facility] daily. albuterol 2021-0 Yes [id number] 2{puff} Inhale 2 [facility] 90 8-26 Puffs ity of mcg/actuati 00:00: every 6 [place] on inhaler 00 (six) Medical hours as [facility] needed for Wheezing or Shortness of Breath. omeprazole 2021-0 Yes [id number] 40mg Take 2 [facility] 20 mg 8-26 capsules [facility] of capsule 00:00: by mouth 2 [place] 00 (two) [facility] times [facility] daily. pravastatin 2021-0 Yes [id number] 10mg Take 1 [facility] 10 mg 8-26 tablet by [facility]y of tablet 00:00: mouth at 00 bedtime. [facility] topiramate 2021-0 Yes [id number] 100mg Take 1 [facility] 100 mg 8-26 tablet by ity of tablet 00:00: mouth 2 00 (two) Medical times [facility] daily. baclofen 5 2021-0 Yes [id number] 5mg Take 1 [facility] mg tablet 8-26 9102 tablet by ity o f 00:00: mouth 3 00 (three) Medical times [facility] daily. albuterol 2021-0 Yes [id number] 2{puff} Inhale 2 [facility] 90 8-26 Puffs [facility]y of mcg/actuati 00:00: every 6 [place] on inhaler 00 (six) Medical hours as [facility] needed for Wheezing or Shortness of Breath. omeprazole 2022-0 Yes [id number] 40mg Take 2 [facility] 20 mg 8-26 capsules [facility] of capsule 00:00: by mouth 2 [place] 00 (two) [facility] times [facility] daily. pravastatin 2022-0 Yes [id number] 10mg Take 1 [facility] 10 mg 8-26 tablet by [facility] of tablet 00:00: mouth at [place] 00 bedtime. [facility] topiramate 2021-0 Yes [id number] 100mg Take 1 [facility] 100 mg 8-26 tablet by [facility]y of tablet 00:00: mouth 2 00 (two) Medical times [facility] daily. baclofen 5 2021-0 Yes [id number] 5mg Take 1 [facility] mg tablet 8-26 9102 tablet by ity o f 00:00: mouth 3 (three) Medical times [facility] daily. albuterol 2021-0 Yes [id number] 2{puff} Inhale 2 [facility] 90 8-26 Puffs [facility]y of mcg/actuati 00:00: every 6 [place] [facility] on inhaler 00 (six) Medical hours as [facility] needed for Wheezing or Shortness of Breath. omeprazole 2-0 Yes [id number] 40mg Take 2 [facility] 20 mg 8-26 capsules [facility] of capsule 00:00: by mouth 2 [place] 00 (two) [facility] times [facility] daily. pravastatin 2021-0 Yes [id number] 10mg Take 1 [facility] 10 mg 8-26 tablet by ity of tablet 00:00: mouth at [place] 00 bedtime. [facility] topiramate 2021-0 Yes [id number] 100mg Take 1 [facility] 100 mg 8-26 tablet by ity of tablet 00:00: mouth 2 (two) Medical times [facility] daily. baclofen 5 2021-0 Yes [id number] 5mg Take 1 [facility] mg tablet 8-26 9102 tablet by ity o f 00:00: mouth 3 (three) Medical times [facility] daily. albuterol 2-0 Yes [id number] 2{puff} Inhale 2 [facility] 90 8-26 Puffs ity of mcg/actuati 00:00: every 6 [place] as on inhaler 00 (six) Medical hours as [facility] needed for Wheezing or Shortness of Breath. omeprazole 2-0 Yes [id number] 40mg Take 2 [facility] 20 mg 8-26 capsules [facility] of capsule 00:00: by mouth 2 [place] 00 (two) [facility] times [facility] daily. pravastatin 2021-0 Yes [id number] 10mg Take 1 [facility] 10 mg 8-26 tablet by ity of tablet 00:00: mouth at 00 bedtime. [facility] topiramate 2021-0 Yes [id number] 100mg Take 1 [facility] 100 mg 8-26 tablet by ity of tablet 00:00: mouth 2 00 (two) Medical times [facility] daily. baclofen 5 2021-0 Yes [id number] 5mg Take 1 [facility] mg tablet 8-26 9102 tablet by ity o f 00:00: mouth 3 (three) Medical times [facility] daily. albuterol 2021-0 Yes [id number] 2{puff} Inhale 2 [facility] 90 8-26 Puffs ity of mcg/actuati 00:00: every 6 [place] as on inhaler 00 (six) Medical hours as [facility] needed for Wheezing or Shortness of Breath. omeprazole 2021-0 Yes [id number] 40mg Take 2 [facility] 20 mg 8-26 capsules [facility] of capsule 00:00: by mouth 2 [place] (two) [facility] times [facility] daily. pravastatin 2021-0 Yes [id number] 10mg Take 1 [facility] 10 mg 8-26 tablet by [facility]y of tablet 00:00: mouth at 00 bedtime. [facility] topiramate 2021-0 Yes [id number] 100mg Take 1 [facility] 100 mg 8-26 tablet by ity of tablet 00:00: mouth 2 (two) Medical times [facility] daily. baclofen 5 2021-0 Yes [id number] 5mg Take 1 [facility] mg tablet 8-26 9102 tablet by ity o f 00:00: mouth 3 (three) Medical times [facility] daily. albuterol 2021-0 Yes [id number] 2{puff} Inhale 2 [facility] 90 8-26 Puffs ity of mcg/actuati 00:00: every 6 [place] as on inhaler 00 (six) Medical hours as [facility] needed for Wheezing or Shortness of Breath. omeprazole 2-0 Yes [id number] 40mg Take 2 [facility] 20 mg 8-26 capsules [facility] of capsule 00:00: by mouth 2 [place] 00 (two) [facility] times [facility] daily. pravastatin 2021-0 Yes [id number] 10mg Take 1 [facility] 10 mg 8-26 tablet by ity of tablet 00:00: mouth at [place] 00 bedtime. [facility] topiramate 2021-0 Yes [id number] 100mg Take 1 [facility] 100 mg 8-26 tablet by ity of tablet 00:00: mouth 2 00 (two) Medical times [facility] daily. baclofen 5 2021-0 Yes [id number] 5mg Take 1 [facility] mg tablet 8-26 9102 tablet by ity o f 00:00: mouth 3 00 (three) Medical times [facility] daily. albuterol 2021-0 Yes [id number] 2{puff} Inhale 2 [facility] 90 8-26 Puffs ity of mcg/actuati 00:00: every 6 [place] as on inhaler 00 (six) Medical hours as [facility] needed for Wheezing or Shortness of Breath. omeprazole 2021-0 Yes [id number] 40mg Take 2 [facility] 20 mg 8-26 capsules ity of capsule 00:00: by mouth 2 [place] (two) [facility] times [facility] daily. pravastatin 2021-0 Yes [id number] 10mg Take 1 [facility] 10 mg 8-26 tablet by ity of tablet 00:00: mouth at [place] 00 bedtime. [facility] topiramate 2021-0 Yes [id number] 100mg Take 1 [facility] 100 mg 8-26 tablet by ity of tablet 00:00: mouth 2 00 (two) Medical times [facility] daily. baclofen 5 2021-0 Yes [id number] 5mg Take 1 [facility] mg tablet 8-26 9102 tablet by ity o f 00:00: mouth 3 00 (three) Medical times [facility] daily. albuterol 2021-0 Yes [id number] 2{puff} Inhale 2 [facility] 90 8-26 Puffs ity of mcg/actuati 00:00: every 6 [place] as on inhaler 00 (six) Medical hours as [facility] needed for Wheezing or Shortness of Breath. omeprazole 2-0 Yes [id number] 40mg Take 2 [facility] 20 mg 8-26 capsules ity of capsule 00:00: by mouth 2 [place] 00 (two) [facility] times [facility] daily. pravastatin 2-0 Yes [id number] 10mg Take 1 [facility] 10 mg 8-26 tablet by [facility]y of tablet 00:00: mouth at [place] 00 bedtime. [facility] topiramate 2021-0 Yes [id number] 100mg Take 1 [facility] 100 mg 8-26 tablet by ity of tablet 00:00: mouth 2 00 (two) Medical times [facility] daily. baclofen 5 2021-0 Yes [id number] 5mg Take 1 [facility] mg tablet 8-26 9102 tablet by ity o f 00:00: mouth 3 (three) Medical times [facility] daily. albuterol 2021-0 Yes [id number] 2{puff} Inhale 2 [facility] 90 8-26 Puffs ity of mcg/actuati 00:00: every 6 [place] as on inhaler 00 (six) Medical hours as [facility] needed for Wheezing or Shortness of Breath. omeprazole 2021-0 Yes [id number] 40mg Take 2 [facility] 20 mg 8-26 capsules [facility]y of capsule 00:00: by mouth 2 [place] (two) [facility] times [facility] daily. pravastatin 2021-0 Yes [id number] 10mg Take 1 [facility] 10 mg 8-26 tablet by ity of tablet 00:00: mouth at [place] 00 bedtime. [facility] topiramate 2021-0 Yes [id number] 100mg Take 1 [facility] 100 mg 8-26 tablet by ity of tablet 00:00: mouth 2 (two) Medical times [facility] daily. baclofen 5 2021-0 Yes [id number] 5mg Take 1 [facility] mg tablet 8-26 9102 tablet by ity o f 00:00: mouth 3 (three) Medical times [facility] daily. albuterol 2021-0 Yes [id number] 2{puff} Inhale 2 [facility] 90 8-26 Puffs ity of mcg/actuati 00:00: every 6 [place] as on inhaler 00 (six) Medical hours as [facility] needed for Wheezing or Shortness of Breath. omeprazole 2-0 Yes [id number] 40mg Take 2 [facility] 20 mg 8-26 capsules ity of capsule 00:00: by mouth 2 [place] 00 (two) [facility] times [facility] daily. pravastatin 2-0 Yes [id number] 10mg Take 1 [facility] 10 mg 8-26 tablet by ity of tablet 00:00: mouth at [place] 00 bedtime. [facility] topiramate 2022-0 Yes [id number] 100mg Take 1 [facility] 100 mg 8-26 tablet by ity of tablet 00:00: mouth 2 (two) Medical times [facility] daily. baclofen 5 2021-0 Yes [id number] 5mg Take 1 [facility] mg tablet 8-26 9102 tablet by ity o f 00:00: mouth 3 (three) Medical times [facility] daily. albuterol 2021-0 Yes [id number] 2{puff} Inhale 2 [facility] 90 8-26 Puffs ity of mcg/actuati 00:00: every 6 [place] as on inhaler 00 (six) Medical hours as [facility] needed for Wheezing or Shortness of Breath. omeprazole 2021-0 Yes [id number] 40mg Take 2 [facility] 20 mg 8-26 capsules [facility] of capsule 00:00: by mouth [place] (two) [facility] times [facility] daily. pravastatin 2021-0 Yes [id number] 10mg Take 1 [facility] 10 mg 8-26 tablet by ity of tablet 00:00: mouth at [place] 00 bedtime. [facility] topiramate 2021-0 Yes [id number] 100mg Take 1 [facility] 100 mg 8-26 tablet by ity of tablet 00:00: mouth 2 (two) Medical times [facility] daily. baclofen 5 2021-0 Yes [id number] 5mg Take 1 [facility] mg tablet 8-26 9102 tablet by ity o f 00:00: mouth 3 (three) Medical times [facility] daily. albuterol 2021-0 Yes [id number] 2{puff} Inhale 2 [facility] 90 8-26 Puffs ity of mcg/actuati 00:00: every 6 [place] as on inhaler 00 (six) Medical hours as [facility] needed for Wheezing or Shortness of Breath. omeprazole 2021-0 Yes [id number] 40mg Take 2 [facility] 20 mg 8-26 capsules [facility] of capsule 00:00: by mouth 2 [place] (two) [facility] times [facility] daily. pravastatin 2022-0 Yes [id number] 10mg Take 1 [facility] 10 mg 8-26 tablet by ity of tablet 00:00: mouth at [place] 00 bedtime. [facility] topiramate 2021-0 Yes [id number] 100mg Take 1 [facility] 100 mg 8-26 tablet by ity of tablet 00:00: mouth 2 (two) Medical times [facility] daily. baclofen 5 2021-0 Yes [id number] 5mg Take 1 [facility] mg tablet 8-26 9102 tablet by ity o f 00:00: mouth 3 (three) Medical times [facility] daily. albuterol 2021-0 Yes [id number] 2{puff} Inhale 2 [facility] 90 8-26 Puffs ity of mcg/actuati 00:00: every 6 [place] as on inhaler 00 (six) Medical hours as [facility] needed for Wheezing or Shortness of Breath. omeprazole 2021-0 Yes [id number] 40mg Take 2 [facility] 20 mg 8-26 capsules ity of capsule 00:00: by mouth 2 [place] (two) [facility] times [facility] daily. pravastatin 2021-0 Yes [id number] 10mg Take 1 [facility] 10 mg 8-26 tablet by ity of tablet 00:00: mouth at [place] 00 bedtime. [facility] topiramate 2021-0 Yes [id number] 100mg Take 1 [facility] 100 mg 8-26 tablet by ity of tablet 00:00: mouth 2 (two) Medical times [facility] daily. baclofen 5 2021-0 Yes [id number] 5mg Take 1 [facility] mg tablet 8-26 9102 tablet by ity o f 00:00: mouth 3 (three) Medical times [facility] daily. albuterol 2021-0 Yes [id number] 2{puff} Inhale 2 [facility] 90 8-26 Puffs ity of mcg/actuati 00:00: every 6 [place] as on inhaler 00 (six) Medical hours as [facility] needed for Wheezing or Shortness of Breath. omeprazole 2021-0 Yes [id number] 40mg Take 2 [facility] 20 mg 8-26 capsules ity of capsule 00:00: by mouth 2 s (two) Medical times [facility] daily. pravastatin 2022-0 Yes [id number] 10mg Take 1 [facility] 10 mg 8-26 tablet by ity of tablet 00:00: mouth at [place] 00 bedtime. [facility] topiramate 2-0 Yes [id number] 100mg Take 1 [facility] 100 mg 8-26 tablet by ity of tablet 00:00: mouth 2 (two) Medical times [facility] daily. baclofen 5 2021-0 Yes [id number] 5mg Take 1 [facility] mg tablet 8-26 9102 tablet by ity o f 00:00: mouth 3 (three) Medical times [facility] daily. albuterol 2021-0 Yes [id number] 2{puff} Inhale 2 [facility] 90 8-26 Puffs ity of mcg/actuati 00:00: every 6 [place] as on inhaler 00 (six) Medical hours as [facility] needed for Wheezing or Shortness of Breath. omeprazole 2021-0 Yes [id number] 40mg Take 2 [facility] 20 mg 8-26 capsules [facility] of capsule 00:00: by mouth [place] (two) [facility] times [facility] daily. pravastatin 2021-0 Yes [id number] 10mg Take 1 [facility] 10 mg 8-26 tablet by ity of tablet 00:00: mouth at 00 bedtime. [facility] topiramate 2021-0 Yes [id number] 100mg Take 1 [facility] 100 mg 8-26 tablet by ity of tablet 00:00: mouth 2 (two) Medical times [facility] daily. baclofen 5 2021-0 Yes [id number] 5mg Take 1 [facility] mg tablet 8-26 9102 tablet by ity o f 00:00: mouth 3 (three) Medical times [facility] daily. albuterol 2021-0 Yes [id number] 2{puff} Inhale 2 [facility] 90 8-26 Puffs ity of mcg/actuati 00:00: every 6 [place] as on inhaler 00 (six) Medical hours as [facility] needed for Wheezing or Shortness of Breath. omeprazole 2021-0 Yes [id number] 40mg Take 2 [facility] 20 mg 8-26 capsules ity of capsule 00:00: by mouth 2 (two) Medical times [facility] daily. pravastatin 2021-0 Yes [id number] 10mg Take 1 [facility] 10 mg 8-26 tablet by [facility]y of tablet 00:00: mouth at 00 bedtime. [facility] topiramate 2021-0 Yes [id number] 100mg Take 1 [facility] 100 mg 8-26 tablet by ity of tablet 00:00: mouth 2 (two) Medical times [facility] daily. baclofen 5 2021-0 Yes [id number] 5mg Take 1 [facility] mg tablet 8-26 9102 tablet by ity o f 00:00: mouth 3 (three) Medical times [facility] daily. albuterol 2021-0 Yes [id number] 2{puff} Inhale 2 [facility] 90 8-26 Puffs ity of mcg/actuati 00:00: every 6 [place] as on inhaler 00 (six) Medical hours as [facility] needed for Wheezing or Shortness of Breath. omeprazole 2021-0 Yes [id number] 40mg Take 2 [facility] 20 mg 8-26 capsules [facility] of capsule 00:00: by mouth 2 [place] (two) [facility] times [facility] daily. pravastatin 2021-0 Yes [id number] 10mg Take 1 [facility] 10 mg 8-26 tablet by [facility]y of tablet 00:00: mouth at 00 bedtime. [facility] topiramate 2021-0 Yes [id number] 100mg Take 1 [facility] 100 mg 8-26 tablet by ity of tablet 00:00: mouth 2 (two) Medical times [facility] daily. baclofen 5 2021-0 Yes [id number] 5mg Take 1 [facility] mg tablet 8-26 9102 tablet by ity o f 00:00: mouth 3 (three) Medical times [facility] daily. albuterol 2021-0 Yes [id number] 2{puff} Inhale 2 [facility] 90 8-26 Puffs ity of mcg/actuati 00:00: every 6 [place] as on inhaler 00 (six) Medical hours as [facility] needed for Wheezing or Shortness of Breath. omeprazole 2021-0 Yes [id number] 40mg Take 2 [facility] 20 mg 8-26 capsules [facility] of capsule 00:00: by mouth [place] (two) [facility] times [facility] daily. pravastatin 2021-0 Yes [id number] 10mg Take 1 [facility] 10 mg 8-26 tablet by [facility]y of tablet 00:00: mouth at 00 bedtime. [facility] topiramate 2021-0 Yes [id number] 100mg Take 1 [facility] 100 mg 8-26 tablet by ity of tablet 00:00: mouth 2 (two) Medical times [facility] daily. baclofen 5 2021-0 Yes [id number] 5mg Take 1 [facility] mg tablet 8-26 9102 tablet by ity o f 00:00: mouth 3 00 (three) Medical times [facility] daily. albuterol 2021-0 Yes [id number] 2{puff} Inhale 2 [facility] 90 8-26 Puffs ity of mcg/actuati 00:00: every 6 [place] as on inhaler 00 (six) Medical hours as [facility] needed for Wheezing or Shortness of Breath. omeprazole 2021-0 Yes [id number] 40mg Take 2 [facility] 20 mg 8-26 capsules [facility] of capsule 00:00: by mouth [place] (two) [facility] times [facility] daily. pravastatin 2021-0 Yes [id number] 10mg Take 1 [facility] 10 mg 8-26 tablet by ity of tablet 00:00: mouth at [place] 00 bedtime. [facility] topiramate 2021-0 Yes [id number] 100mg Take 1 [facility] 100 mg 8-26 tablet by ity of tablet 00:00: mouth 2 00 (two) Medical times [facility] daily. baclofen 5 2021-0 Yes [id number] 5mg Take 1 [facility] mg tablet 8-26 9102 tablet by ity o f 00:00: mouth 3 (three) Medical times [facility] daily. albuterol 2021-0 Yes [id number] 2{puff} Inhale 2 [facility] 90 8-26 Puffs ity of mcg/actuati 00:00: every 6 [place] as on inhaler 00 (six) Medical hours as Branch needed for Wheezing or Shortness of Breath. omeprazole 2021-0 Yes [id number] 40mg Take 2 [facility] 20 mg 8-26 capsules [facility] of capsule 00:00: [place] mouth [place] (two) [facility] times [facility] daily. pravastatin 2021-0 Yes [id number] 10mg Take 1 [facility] 10 mg 8-26 tablet by [facility] of tablet 00:00: mouth at 00 bedtime. [facility] topiramate 2021-0 Yes [id number] 100mg Take 1 [facility] 100 mg 8-26 tablet by it[facility] of tablet 00:00: mouth 2 00 (two) Medical times [facility] daily. baclofen 5 2021-0 Yes [id number] 5mg Take 1 [facility] mg tablet 8-26 9102 tablet by ity o f 00:00: mouth 3 00 (three) Medical times [facility] daily. albuterol 2021-0 Yes [id number] 2{puff} Inhale 2 [facility] 90 8-26 Puffs ity of mcg/actuati 00:00: every 6 [place] as on inhaler 00 (six) Medical hours as [facility] needed for Wheezing or Shortness of Breath. omeprazole 2022-0 Yes [id number] 40mg Take 2 [facility] 20 mg 8-26 capsules [facility] capsule 00:00: [place] mouth [place] (two) [facility] times [facility] daily. pravastatin 2022-0 Yes [id number] 10mg Take 1 [facility] 10 mg 8-26 tablet by ity of tablet 00:00: mouth at [place] 00 bedtime. [facility] topiramate 2021-0 Yes [id number] 100mg Take 1 [facility] 100 mg 8-26 tablet by ity of tablet 00:00: mouth 2 (two) Medical times [facility] daily. baclofen 5 2021-0 Yes [id number] 5mg Take 1 [facility] mg tablet 8- 9102 tablet by ity o f 00:00: mouth 3 (three) Medical times [facility] daily. albuterol 2021-0 Yes [id number] 2{puff} Inhale 2 [facility] 90 8-26 Puffs ity of mcg/actuati 00:00: every 6 [place] as on inhaler 00 (six) Medical hours as [facility] needed for Wheezing or Shortness of Breath. omeprazole 2021-0 Yes [id number] 40mg Take 2 [facility] 20 mg 8-26 capsules [facility] of capsule 00:00: by mouth [place] (two) [facility] times [facility] daily. pravastatin 2021-0 Yes [id number] 10mg Take 1 [facility] 10 mg 8-26 tablet by ity of tablet 00:00: mouth at [place] 00 bedtime. [facility] topiramate 2021-0 Yes [id number] 100mg Take 1 [facility] 100 mg 8-26 tablet by ity of tablet 00:00: mouth 2 (two) Medical times [facility] daily. baclofen 5 2021-0 Yes [id number] 5mg Take 1 [facility] mg tablet 8-26 9102 tablet by ity o f 00:00: mouth 3 (three) Medical times [facility] daily. albuterol 2022-0 Yes [id number] 2{puff} Inhale 2 [facility] 90 8-26 Puffs ity of mcg/actuati 00:00: every 6 [place] as on inhaler 00 (six) Medical hours as [facility] needed for Wheezing or Shortness of Breath. omeprazole 2-0 Yes [id number] 40mg Take 2 [facility] 20 mg 8-26 capsules [facility] of capsule 00:00: by mouth [place] (two) [facility] times [facility] daily. pravastatin 2022-0 Yes [id number] 10mg Take 1 [facility] 10 mg 8-26 tablet by ity of tablet 00:00: mouth at 00 bedtime. [facility] topiramate 2021-0 Yes [id number] 100mg Take 1 [facility] 100 mg 8-26 tablet by ity of tablet 00:00: mouth 2 00 (two) Medical times [facility] daily. baclofen 5 2021-0 Yes [id number] 5mg Take 1 [facility] mg tablet 8-26 9102 tablet by ity o f 00:00: mouth 3 (three) Medical times [facility] daily. albuterol 2021-0 Yes [id number] 2{puff} Inhale 2 [facility] 90 8-26 Puffs ity of mcg/actuati 00:00: every 6 [place] as on inhaler 00 (six) Medical hours as [facility] needed for Wheezing or Shortness of Breath. omeprazole 2021-0 Yes [id number] 40mg Take 2 [facility] 20 mg 8-26 capsules [facility] of capsule 00:00: by mouth [place] (two) [facility] times [facility] daily. pravastatin 2021-0 Yes [id number] 10mg Take 1 [facility] 10 mg 8-26 tablet by it[facility] of tablet 00:00: mouth at 00 bedtime. [facility] topiramate 2021-0 Yes [id number] 100mg Take 1 [facility] 100 mg 8-26 tablet by ity of tablet 00:00: mouth 2 (two) Medical times [facility] daily. baclofen 5 2021-0 Yes [id number] 5mg Take 1 [facility] mg tablet 8-26 9102 tablet by ity o f 00:00: mouth 3 (three) Medical times [facility] daily. albuterol 2021-0 Yes [id number] 2{puff} Inhale 2 [facility] 90 8-26 Puffs ity of mcg/actuati 00:00: every 6 [place] as on inhaler 00 (six) Medical hours as [facility] needed for Wheezing or Shortness of Breath. omeprazole 2-0 Yes [id number] 40mg Take 2 [facility] 20 mg 8-26 capsules [facility] of capsule 00:00: by mouth [place] 00 (two) [facility] times [facility] daily. pravastatin 2021-0 Yes [id number] 10mg Take 1 [facility] 10 mg 8-26 tablet by ity of tablet 00:00: mouth at [place] 00 bedtime. [facility] topiramate 2021-0 Yes [id number] 100mg Take 1 [facility] 100 mg 8-26 tablet by ity of tablet 00:00: mouth 2 00 (two) Medical times [facility] daily. baclofen 5 2021-0 Yes [id number] 5mg Take 1 [facility] mg tablet 8-26 9102 tablet by ity o f 00:00: mouth 3 (three) Medical times [facility] daily. albuterol 2021-0 Yes [id number] 2{puff} Inhale 2 [facility] 90 8-26 Puffs ity of mcg/actuati 00:00: every 6 [place] as on inhaler 00 (six) Medical hours as [facility] needed for Wheezing or Shortness of Breath. omeprazole 2021-0 Yes [id number] 40mg Take 2 [facility] 20 mg 8-26 capsules ity of capsule 00:00: by mouth 2 (two) Medical times [facility] daily. pravastatin 2021-0 Yes [id number] 10mg Take 1 [facility] 10 mg 8-26 tablet by ity of tablet 00:00: mouth at [place] 00 bedtime. [facility] topiramate 2021-0 Yes [id number] 100mg Take 1 [facility] 100 mg 8-26 tablet by ity of tablet 00:00: mouth 2 (two) Medical times [facility] daily. baclofen 5 2021-0 Yes [id number] 5mg Take 1 [facility] mg tablet 8-26 9102 tablet by ity o f 00:00: mouth 3 (three) Medical times [facility] daily. albuterol 2021-0 Yes [id number] 2{puff} Inhale 2 [facility] 90 8-26 Puffs ity of mcg/actuati 00:00: every 6 [place] as on inhaler 00 (six) Medical hours as [facility] needed for Wheezing or Shortness of Breath. omeprazole 2-0 Yes [id number] 40mg Take 2 [facility] 20 mg 8-26 capsules [facility] of capsule 00:00: by mouth [place] (two) [facility] times [facility] daily. pravastatin 2021-0 Yes [id number] 10mg Take 1 [facility] 10 mg 8-26 tablet by ity of tablet 00:00: mouth at [place] 00 bedtime. [facility] topiramate 2021-0 Yes [id number] 100mg Take 1 [facility] 100 mg 8-26 tablet by ity of tablet 00:00: mouth 2 00 (two) Medical times [facility] daily. baclofen 5 2021-0 Yes [id number] 5mg Take 1 [facility] mg tablet 8-26 9102 tablet by ity o f 00:00: mouth 3 00 (three) Medical times [facility] daily. albuterol 2021-0 Yes [id number] 2{puff} Inhale 2 [facility] 90 8-26 Puffs ity of mcg/actuati 00:00: every 6 [place] as on inhaler 00 (six) Medical hours as [facility] needed for Wheezing or Shortness of Breath. omeprazole 2021-0 Yes [id number] 40mg Take 2 [facility] 20 mg 8-26 capsules [facility] of capsule 00:00: by mouth 2 [place] 00 (two) [facility] times [facility] daily. pravastatin 2021-0 Yes [id number] 10mg Take 1 [facility] 10 mg 8-26 tablet by ity of tablet 00:00: mouth at [place] 00 bedtime. [facility] topiramate 2021-0 Yes [id number] 100mg Take 1 [facility] 100 mg 8-26 tablet by ity of tablet 00:00: mouth 2 00 (two) Medical times [facility] daily. baclofen 5 2021-0 Yes [id number] 5mg Take 1 [facility] mg tablet 8-26 9102 tablet by ity o f 00:00: mouth 3 00 (three) Medical times [facility] daily. albuterol 2021-0 Yes [id number] 2{puff} Inhale 2 [facility] 90 8-26 Puffs ity of mcg/actuati 00:00: every 6 [place] as on inhaler 00 (six) Medical hours as [facility] needed for Wheezing or Shortness of Breath. omeprazole 2-0 Yes [id number] 40mg Take 2 [facility] 20 mg 8-26 capsules [facility] of capsule 00:00: by mouth 2 [place] 00 (two) [facility] times [facility] daily. pravastatin 2-0 Yes [id number] 10mg Take 1 [facility] 10 mg 8-26 tablet by ity of tablet 00:00: mouth at [place] 00 bedtime. [facility] topiramate 2022-0 Yes [id number] 100mg Take 1 [facility] 100 mg 8-26 tablet by ity of tablet 00:00: mouth 2 (two) Medical times [facility] daily. baclofen 5 2021-0 Yes [id number] 5mg Take 1 [facility] mg tablet 8-26 9102 tablet by ity o f 00:00: mouth 3 (three) Medical times [facility] daily. albuterol 2021-0 Yes [id number] 2{puff} Inhale 2 [facility] 90 8-26 Puffs ity of mcg/actuati 00:00: every 6 [place] as on inhaler 00 (six) Medical hours as [facility] needed for Wheezing or Shortness of Breath. omeprazole 2021-0 Yes [id number] 40mg Take 2 [facility] 20 mg 8-26 capsules [facility] of capsule 00:00: by mouth 2 [place] (two) [facility] times [facility] daily. pravastatin 2021-0 Yes [id number] 10mg Take 1 [facility] 10 mg 8-26 tablet by ity of tablet 00:00: mouth at [place] 00 bedtime. [facility] topiramate 2021-0 Yes [id number] 100mg Take 1 [facility] 100 mg 8-26 tablet by ity of tablet 00:00: mouth 2 (two) Medical times [facility] daily. baclofen 5 2021-0 Yes [id number] 5mg Take 1 [facility] mg tablet 8-26 9102 tablet by ity o f 00:00: mouth 3 (three) Medical times [facility] daily. albuterol 2021-0 Yes [id number] 2{puff} Inhale 2 [facility] 90 8-26 Puffs ity of mcg/actuati 00:00: every 6 [place] as on inhaler 00 (six) Medical hours as [facility] needed for Wheezing or Shortness of Breath. omeprazole 2022-0 Yes [id number] 40mg Take 2 [facility] 20 mg 8-26 capsules [facility] of capsule 00:00: by mouth 2 [place] (two) [facility] times [facility] daily. pravastatin 2022-0 Yes [id number] 10mg Take 1 [facility] 10 mg 8-26 tablet by ity of tablet 00:00: mouth at [place] 00 bedtime. [facility] topiramate 2021-0 Yes [id number] 100mg Take 1 [facility] 100 mg 8-26 tablet by ity of tablet 00:00: mouth 2 (two) Medical times [facility] daily. baclofen 5 2021-0 Yes [id number] 5mg Take 1 [facility] mg tablet 8-26 9102 tablet by ity o f 00:00: mouth 3 (three) Medical times [facility] daily. albuterol 2-0 Yes [id number] 2{puff} Inhale 2 [facility] 90 8-26 Puffs ity of mcg/actuati 00:00: every 6 [place] as on inhaler 00 (six) Medical hours as [facility] needed for Wheezing or Shortness of Breath. omeprazole 2-0 Yes [id number] 40mg Take 2 [facility] 20 mg 8-26 capsules [facility] of capsule 00:00: by mouth 2 [place] (two) [facility] times [facility] daily. pravastatin 2021-0 Yes [id number] 10mg Take 1 [facility] 10 mg 8-26 tablet by ity of tablet 00:00: mouth at [place] 00 bedtime. [facility] topiramate 2021-0 Yes [id number] 100mg Take 1 [facility] 100 mg 8-26 tablet by ity of tablet 00:00: mouth 2 (two) Medical times Branch daily. baclofen 5 2021-0 Yes [id number] 5mg Take 1 [facility] mg tablet 8-26 9102 tablet by ity o f 00:00: mouth 3 (three) Medical times [facility] daily. albuterol 2021-0 Yes [id number] 2{puff} Inhale 2 [facility] 90 8-26 Puffs ity of mcg/actuati 00:00: every 6 [place] as on inhaler 00 (six) Medical hours as [facility] needed for Wheezing or Shortness of Breath. omeprazole 2-0 Yes [id number] 40mg Take 2 [facility] 20 mg 8-26 capsules ity of capsule 00:00: by mouth 2 [place] (two) Medical times [facility] daily. pravastatin 2022-0 Yes [id number] 10mg Take 1 [facility] 10 mg 8-26 tablet by ity of tablet 00:00: mouth at [place] 00 bedtime. [facility] topiramate 2022-0 Yes [id number] 100mg Take 1 [facility] 100 mg 8-26 tablet by ity of tablet 00:00: mouth 2 (two) Medical times [facility] daily. baclofen 5 2021-0 Yes [id number] 5mg Take 1 [facility] mg tablet 8-26 9102 tablet by ity o f 00:00: mouth 3 (three) Medical times [facility] daily. albuterol 2022-0 Yes [id number] 2{puff} Inhale 2 [facility] 90 8-26 Puffs ity of mcg/actuati 00:00: every 6 [place] as on inhaler 00 (six) Medical hours as [facility] needed for Wheezing or Shortness of Breath. omeprazole 2022-0 Yes [id number] 40mg Take 2 [facility] 20 mg 8-26 capsules [facility] of capsule 00:00: by mouth 2 [place] 00 (two) [facility] times [facility] daily. pravastatin 2022-0 Yes [id number] 10mg Take 1 [facility] 10 mg 8-26 tablet by ity of tablet 00:00: mouth at 00 bedtime. [facility] topiramate 2021-0 Yes [id number] 100mg Take 1 [facility] 100 mg 8-26 tablet by ity of tablet 00:00: mouth 2 (two) Medical times [facility] daily. baclofen 5 2021-0 Yes [id number] 5mg Take 1 [facility] mg tablet 8-26 9102 tablet by ity o f 00:00: mouth 3 (three) Medical times [facility] daily. albuterol 2021-0 Yes [id number] 2{puff} Inhale 2 [facility] 90 8-26 Puffs ity of mcg/actuati 00:00: every 6 [place] as on inhaler 00 (six) Medical hours as Branch needed for Wheezing or Shortness of Breath. omeprazole 2-0 Yes [id number] 40mg Take 2 [facility] 20 mg 8-26 capsules ity of capsule 00:00: by mouth 2 (two) Medical times [facility] daily. pravastatin 2-0 Yes [id number] 10mg Take 1 [facility] 10 mg 8-26 tablet by ity of tablet 00:00: mouth at 00 bedtime. [facility] topiramate 2-0 Yes [id number] 100mg Take 1 [facility] 100 mg 8-26 tablet by ity of tablet 00:00: mouth 2 (two) Medical times [facility] daily. baclofen 5 2021-0 Yes [id number] 5mg Take 1 [facility] mg tablet 8-26 9102 tablet by ity o f 00:00: mouth 3 (three) Medical times [facility] daily. albuterol 2021-0 Yes [id number] 2{puff} Inhale 2 [facility] 90 8-26 Puffs ity of mcg/actuati 00:00: every 6 [place] as on inhaler 00 (six) Medical hours as [facility] needed for Wheezing or Shortness of Breath. omeprazole 2021-0 Yes [id number] 40mg Take 2 [facility] 20 mg 8-26 capsules ity of capsule 00:00: by mouth 2 [place] (two) [facility] times [facility] daily. pravastatin 2021-0 Yes [id number] 10mg Take 1 [facility] 10 mg 8-26 tablet by ity of tablet 00:00: mouth at [place] 00 bedtime. [facility] topiramate 2021-0 Yes [id number] 100mg Take 1 [facility] 100 mg 8-26 tablet by ity of tablet 00:00: mouth 2 (two) Medical times [facility] daily. baclofen 5 2021-0 Yes [id number] 5mg Take 1 [facility] mg tablet 8-26 9102 tablet by ity o f 00:00: mouth 3 (three) Medical times [facility] daily. albuterol 2021-0 Yes [id number] 2{puff} Inhale 2 [facility] 90 8-26 Puffs ity of mcg/actuati 00:00: every 6 [place] as on inhaler 00 (six) Medical hours as [facility] needed for Wheezing or Shortness of Breath. omeprazole 2021-0 Yes [id number] 40mg Take 2 [facility] 20 mg 8-26 capsules ity of capsule 00:00: by mouth [place] (two) [facility] times [facility] daily. Albuterol 2021-0 Yes 2{puff} Q.25D Inhale 2 [place] HFA 108 (90 8-26 puffs into [employer]) 00:00: the lungs - MCG/ACT IN 00 every 6 [place] a [facility] hours as l needed pravastatin 2021-0 Yes [id number] 10mg Take 1 [facility] 10 mg 8-26 tablet by ity of tablet 00:00: mouth at [place] [address] bedtime. [facility] topiramate 2021-0 Yes [id number] 100mg Take 1 [facility] 100 mg 8-26 tablet by ity of tablet 00:00: mouth 2 (two) Medical times [facility] daily. baclofen 5 2021-0 Yes [id number] 5mg Take 1 [facility] mg tablet 8-26 9102 tablet by ity o f 00:00: mouth 3 00 (three) Medical times [facility] daily. albuterol 2021-0 Yes [id number] 2{puff} Inhale 2 [facility] 90 8-26 Puffs ity of mcg/actuati 00:00: every 6 [place] as on inhaler 00 (six) Medical hours as [facility] needed for Wheezing or Shortness of Breath. omeprazole 2021-0 Yes [id number] 40mg Take 2 [facility] 20 mg 8-26 capsules ity of capsule 00:00: by mouth 2 [place] 00 (two) [facility] times [facility] daily. pravastatin 2021-0 Yes [id number] 10mg Take 1 [facility] 10 mg 8-26 tablet by ity of tablet 00:00: mouth at [place] [address] bedtime. [facility] topiramate 2021-0 Yes [id number] 100mg Take 1 [facility] 100 mg 8-26 tablet by ity of tablet 00:00: mouth 2 00 (two) Medical times [facility] daily. baclofen 5 2021-0 Yes [id number] 5mg Take 1 [facility] mg tablet 8-26 9102 tablet by ity o f 00:00: mouth 3 (three) Medical times [facility] daily. albuterol 2021-0 Yes [id number] 2{puff} Inhale 2 [facility] 90 8-26 Puffs ity of mcg/actuati 00:00: every 6 [place] as on inhaler 00 (six) Medical hours as [facility] needed for Wheezing or Shortness of Breath. omeprazole 2021-0 Yes [id number] 40mg Take 2 [facility] 20 mg 8-26 capsules ity of capsule 00:00: by mouth 2 [place] 00 (two) [facility] times [facility] daily. Omeprazole 2021-0 Yes 40mg Take 2 [facility] 20 MG oral 8-26 capsules [place] ld Delayed 00:00: (40 mg - Release 00 total) by Extern[facility] Capsule mouth 2 l times daily pravastatin 2021-0 Yes [id number] 10mg Take 1 [facility] 10 mg 8-26 tablet by ity of tablet 00:00: mouth at [place] [address] bedtime. [facility] topiramate 2021-0 Yes [id number] 100mg Take 1 [facility] 100 mg 8-26 tablet by ity of tablet 00:00: mouth 2 (two) Medical times [facility] daily. baclofen 5 2021-0 Yes [id number] 5mg Take 1 [facility] mg tablet 8-26 9102 tablet by ity o f 00:00: mouth 3 (three) Medical times [facility] daily. albuterol 2021-0 Yes [id number] 2{puff} Inhale 2 [facility] 90 8-26 Puffs ity of mcg/actuati 00:00: every 6 [place] as on inhaler 00 (six) Medical hours as Branch needed for Wheezing or Shortness of Breath. omeprazole 2-0 Yes [id number] 40mg Take 2 [facility] 20 mg 8-26 capsules ity of capsule 00:00: by mouth 2 (two) Medical times [facility] daily. pravastatin 2021-0 Yes [id number] 10mg Take 1 [facility] 10 mg 8-26 tablet by ity of tablet 00:00: mouth at [place] bedtime. [facility] topiramate 2021-0 Yes [id number] 100mg Take 1 [facility] 100 mg 8-26 tablet by ity of tablet 00:00: mouth 2 (two) Medical times [facility] daily. baclofen 5 2021-0 Yes [id number] 5mg Take 1 [facility] mg tablet 8-26 9102 tablet by ity o f 00:00: mouth 3 (three) Medical times [facility] daily. albuterol 2021-0 Yes [id number] 2{puff} Inhale 2 [facility] 90 8-26 Puffs ity of mcg/actuati 00:00: every 6 [place] as on inhaler 00 (six) Medical hours as Branch needed for Wheezing or Shortness of Breath. omeprazole 2-0 Yes [id number] 40mg Take 2 [facility] 20 mg 8-26 capsules ity of capsule 00:00: by mouth 2 (two) Medical times [facility] daily. pravastatin 2-0 Yes [id number] 10mg Take 1 [facility] 10 mg 8-26 tablet by ity of tablet 00:00: mouth at [place] 00 bedtime. [facility] topiramate 2-0 Yes [id number] 100mg Take 1 [facility] 100 mg 8-26 tablet by ity of tablet 00:00: mouth 2 (two) Medical times [facility] daily. baclofen 5 2021-0 Yes [id number] 5mg Take 1 [facility] mg tablet 8-26 9102 tablet by ity o f 00:00: mouth 3 00 (three) Medical times [facility] daily. albuterol 202-0 Yes [id number] 2{puff} Inhale 2 [facility] 90 8-26 Puffs ity of mcg/actuati 00:00: every 6 [place] as on inhaler 00 (six) Medical hours as [facility] needed for Wheezing or Shortness of Breath. omeprazole 2022-0 Yes [id number] 40mg Take 2 [facility] 20 mg 8-26 capsules it[facility] of capsule 00:00: by mouth 2 [place] 00 (two) [facility] times [facility] daily. pravastatin 2021-0 Yes [id number] 10mg Take 1 [facility] 10 mg 8-26 tablet by ity of tablet 00:00: mouth at 00 bedtime. [facility] topiramate 2021-0 Yes [id number] 100mg Take 1 [facility] 100 mg 8-26 tablet by ity of tablet 00:00: mouth 2 (two) Medical times [facility] daily. baclofen 5 2021-0 Yes [id number] 5mg Take 1 [facility] mg tablet 8-26 9102 tablet by ity o f 00:00: mouth 3 (three) Medical times [facility] daily. albuterol 2021-0 Yes [id number] 2{puff} Inhale 2 [facility] 90 8-26 Puffs ity of mcg/actuati 00:00: every 6 [place] as on inhaler 00 (six) Medical hours as [facility] needed for Wheezing or Shortness of Breath. omeprazole 2021-0 Yes [id number] 40mg Take 2 [facility] 20 mg 8-26 capsules it[facility] of capsule 00:00: by mouth 2 [place] (two) [facility] times [facility] daily. pravastatin 2021-0 Yes [id number] 10mg Take 1 [facility] 10 mg 8-26 tablet by ity of tablet 00:00: mouth at 00 bedtime. [facility] topiramate 2-0 Yes [id number] 100mg Take 1 [facility] 100 mg 8-26 tablet by ity of tablet 00:00: mouth 2 (two) Medical times [facility] daily. baclofen 5 2021-0 Yes [id number] 5mg Take 1 [facility] mg tablet 8-26 9102 tablet by ity o f 00:00: mouth 3 (three) Medical times [facility] daily. albuterol 2021-0 Yes [id number] 2{puff} Inhale 2 [facility] 90 8-26 Puffs ity of mcg/actuati 00:00: every 6 [place] as on inhaler 00 (six) Medical hours as Branch needed for Wheezing or Shortness of Breath. omeprazole 2021-0 Yes [id number] 40mg Take 2 [facility] 20 mg 8-26 capsules ity of capsule 00:00: by mouth 2 [place] (two) Medical times [facility] daily. pravastatin 2021-0 Yes [id number] 10mg Take 1 [facility] 10 mg 8-26 tablet by ity of tablet 00:00: mouth at [place] 00 bedtime. [facility] topiramate 2021-0 Yes [id number] 100mg Take 1 [facility] 100 mg 8-26 tablet by ity of tablet 00:00: mouth (two) Medical times [facility] daily. baclofen 5 2021-0 Yes [id number] 5mg Take 1 [facility] mg tablet 8-26 9102 tablet by ity o f 00:00: mouth 3 (three) Medical times [facility] daily. albuterol 2021-0 Yes [id number] 2{puff} Inhale 2 [facility] 90 8-26 Puffs ity of mcg/actuati 00:00: every 6 [place] as on inhaler 00 (six) Medical hours as [facility] needed for Wheezing or Shortness of Breath. omeprazole 2021-0 Yes [id number] 40mg Take 2 [facility] 20 mg 8-26 capsules [facility] of capsule 00:00: by mouth [place] (two[place] [facility] times [facility] daily. pravastatin 2021-0 Yes [id number] 10mg Take 1 [facility] 10 mg 8-26 tablet by ity of tablet 00:00: mouth at 00 bedtime. [facility] topiramate 2021-0 Yes [id number] 100mg Take 1 [facility] 100 mg 8-26 tablet by ity of tablet 00:00: mouth (two) Medical times [facility] daily. baclofen 5 2021-0 Yes [id number] 5mg Take 1 [facility] mg tablet 8-26 9102 tablet by ity o f 00:00: mouth 3 (three) Medical times [facility] daily. albuterol 2021-0 Yes [id number] 2{puff} Inhale 2 [facility] 90 8-26 Puffs ity of mcg/actuati 00:00: every 6 [place] as on inhaler 00 (six) Medical hours as [facility] needed for Wheezing or Shortness of Breath. omeprazole 2021-0 Yes [id number] 40mg Take 2 [facility] 20 mg 8-26 capsules it[facility] of capsule 00:00: by mouth 2 [place] 00 (two) [facility] times [facility] daily. pravastatin 2021-0 Yes [id number] 10mg Take 1 [facility] 10 mg 8-26 tablet by ity of tablet 00:00: mouth at [place] 00 bedtime. [facility] topiramate 2021-0 Yes [id number] 100mg Take 1 [facility] 100 mg 8-26 tablet by ity of tablet 00:00: mouth 2 (two) Medical times [facility] daily. baclofen 5 2021-0 Yes [id number] 5mg Take 1 [facility] mg tablet 8-26 9102 tablet by ity o f 00:00: mouth 3 (three) Medical times [facility] daily. albuterol 2021-0 Yes [id number] 2{puff} Inhale 2 [facility] 90 8-26 Puffs ity of mcg/actuati 00:00: every 6 [place] as on inhaler 00 (six) Medical hours as [facility] needed for Wheezing or Shortness of Breath. omeprazole 2021-0 Yes [id number] 40mg Take 2 [facility] 20 mg 8-26 capsules [facility] of capsule 00:00: by mouth 2 [place] (two) [facility] times [facility] daily. pravastatin 2021-0 Yes [id number] 10mg Take 1 [facility] 10 mg 8-26 tablet by ity of tablet 00:00: mouth at 00 bedtime. [facility] topiramate 2021-0 Yes [id number] 100mg Take 1 [facility] 100 mg 8-26 tablet by ity of tablet 00:00: mouth 2 (two) Medical times [facility] daily. baclofen 5 2021-0 Yes [id number] 5mg Take 1 [facility] mg tablet 8-26 9102 tablet by ity o f 00:00: mouth 3 00 (three) Medical times [facility] daily. albuterol 2021-0 Yes [id number] 2{puff} Inhale 2 [facility] 90 8-26 Puffs ity of mcg/actuati 00:00: every 6 [place] as on inhaler 00 (six) Medical hours as Branch needed for Wheezing or Shortness of Breath. omeprazole 2-0 Yes [id number] 40mg Take 2 [facility] 20 mg 8-26 capsules ity of capsule 00:00: by mouth 2 [place] (two) [facility] times [facility] daily. pravastatin 2-0 Yes [id number] 10mg Take 1 [facility] 10 mg 8-26 tablet by ity of tablet 00:00: mouth at [place] 00 bedtime. [facility] topiramate 2021-0 Yes [id number] 100mg Take 1 [facility] 100 mg 8-26 tablet by ity of tablet 00:00: mouth 2 (two) Medical times [facility] daily. baclofen 5 2021-0 Yes [id number] 5mg Take 1 [facility] mg tablet 8-26 9102 tablet by ity o f 00:00: mouth 3 (three) Medical times [facility] daily. albuterol 2021-0 Yes [id number] 2{puff} Inhale 2 [facility] 90 8-26 Puffs ity of mcg/actuati 00:00: every 6 [place] as on inhaler 00 (six) Medical hours as Branch needed for Wheezing or Shortness of Breath. omeprazole 2021-0 Yes [id number] 40mg Take 2 [facility] 20 mg 8-26 capsules ity of capsule 00:00: by mouth 2 [place] (two) [facility] times [facility] daily. pravastatin 2021-0 Yes [id number] 10mg Take 1 [facility] 10 mg 8-26 tablet by ity of tablet 00:00: mouth at [place] 00 bedtime. [facility] topiramate 2021-0 Yes [id number] 100mg Take 1 [facility] 100 mg 8-26 tablet by ity of tablet 00:00: mouth 2 (two) Medical times [facility] daily. baclofen 5 2021-0 Yes [id number] 5mg Take 1 [facility] mg tablet 8-26 9102 tablet by ity o f 00:00: mouth 3 (three) Medical times [facility] daily. albuterol 2-0 Yes [id number] 2{puff} Inhale 2 [facility] 90 8-26 Puffs ity of mcg/actuati 00:00: every 6 [place] as on inhaler 00 (six) Medical hours as Branch needed for Wheezing or Shortness of Breath. omeprazole 2-0 Yes [id number] 40mg Take 2 [facility] 20 mg 8-26 capsules [facility] of capsule 00:00: by mouth 2 [place] (two) [facility] times [facility] daily. pravastatin 2021-0 Yes [id number] 10mg Take 1 [facility] 10 mg 8-26 tablet by ity of tablet 00:00: mouth at [place] 00 bedtime. [facility] topiramate 2021-0 Yes [id number] 100mg Take 1 [facility] 100 mg 8-26 tablet by ity of tablet 00:00: mouth 2 00 (two) Medical times [facility] daily. baclofen 5 2021-0 Yes [id number] 5mg Take 1 [facility] mg tablet 8-26 9102 tablet by ity o f 00:00: mouth 3 (three) Medical times [facility] daily. albuterol 2021-0 Yes [id number] 2{puff} Inhale 2 [facility] 90 8-26 Puffs ity of mcg/actuati 00:00: every 6 [place] on inhaler 00 (six) Medical hours as Branch needed for Wheezing or Shortness of Breath. omeprazole 2021-0 Yes [id number] 40mg Take 2 [facility] 20 mg 8-26 capsules [facility] capsule 00:00: [place] mouth [place] (two) [facility] times [facility] daily. pravastatin 2021-0 Yes [id number] 10mg Take 1 [facility] 10 mg 8-26 tablet by [facility] of tablet 00:00: mouth at 00 bedtime. Medical Branch topiramate 2021-0 Yes [id number] 100mg Take 1 [facility] 100 mg 8-26 tablet by [facility] of tablet 00:00: mouth 2 00 (two) Medical times Branch daily. baclofen 5 2021-0 Yes [id number] 5mg Take 1 [facility] mg tablet 8-26 9102 tablet by ity o f 00:00: mouth 3 (three) Medical times Branch daily. albuterol 2021-0 Yes [id number] 2{puff} Inhale 2 [facility] 90 8-26 Puffs ity of mcg/actuati 00:00: every 6 [place] on inhaler 00 (six) Medical hours as Branch needed for Wheezing or Shortness of Breath. omeprazole 2021-0 Yes [id number] 40mg Take 2 [facility] 20 mg 8-26 capsules [facility] capsule 00:00: by mouth [place] 00 (two) [facility] times [facility] daily. pravastatin 2022-0 Yes [id number] 10mg Take 1 [facility] 10 mg 8-26 tablet by [facility] of tablet 00:00: mouth at [place] 00 bedtime. Medical [facility] topiramate 2021-0 Yes [id number] 100mg Take 1 [facility] 100 mg 8-26 tablet by [facility] of tablet 00:00: mouth 2 (two) Medical times Branch daily. baclofen 5 2021-0 Yes [id number] 5mg Take 1 [facility] mg tablet 8-26 9102 tablet by ity o f 00:00: mouth 3 (three) Medical times Branch daily. albuterol 2021-0 Yes [id number] 2{puff} Inhale 2 [facility] 90 8-26 Puffs ity of mcg/actuati 00:00: every 6 [place] on inhaler 00 (six) Medical hours as Branch needed for Wheezing or Shortness of Breath. omeprazole 2021-0 Yes [id number] 40mg Take 2 [facility] 20 mg 8-26 capsules [facility] capsule 00:00: [place] mouth 2 [place] ([place]) [facility] times [facility] daily. pravastatin 2021-0 Yes [id number] 10mg Take 1 [facility] 10 mg 8-26 tablet by [facility] of tablet 00:00: mouth at [place] bedtime. Medical [facility] topiramate 2021-0 Yes [id number] 100mg Take 1 [facility] 100 mg 8-26 tablet by [facility] of tablet 00:00: mouth 2 (two) Medical times Branch daily. baclofen 5 2021-0 Yes [id number] 5mg Take 1 [facility] mg tablet 8-26 9102 tablet by ity o f 00:00: mouth 3 (three) Medical times Branch daily. albuterol 2021-0 Yes [id number] 2{puff} Inhale 2 [facility] 90 8-26 Puffs ity of mcg/actuati 00:00: every 6 [place] on inhaler 00 (six) Medical hours as Branch needed for Wheezing or Shortness of Breath. omeprazole 2-0 Yes [id number] 40mg Take 2 [facility] 20 mg 8-26 capsules [facility] capsule 00:00: by mouth [place] (two) [facility] times [facility] daily. pravastatin 2-0 Yes [id number] 10mg Take 1 [facility] 10 mg 8-26 tablet by [facility] of tablet 00:00: mouth at [place] 00 bedtime. [facility] topiramate 2021-0 Yes [id number] 100mg Take 1 [facility] 100 mg 8-26 tablet by [facility]y of tablet 00:00: mouth 2 00 (two) Medical times Branch daily. baclofen 5 2021-0 Yes [id number] 5mg Take 1 [facility] mg tablet 8-26 9102 tablet by [facility]y o f 00:00: mouth 3 00 (three) Medical times Branch daily. albuterol 2021-0 Yes [id number] 2{puff} Inhale 2 [facility] 90 8-26 Puffs [facility]y of mcg/actuati 00:00: every 6 [place] on inhaler 00 (six) Medical hours as Branch needed for Wheezing or Shortness of Breath. omeprazole 2021-0 Yes [id number] 40mg Take 2 [facility] 20 mg 8-26 capsules [facility] capsule 00:00: by mouth 2 [place] 00 (two) Medical times [facility] daily. pravastatin 2021-0 Yes [id number] 10mg Take 1 [facility] 10 mg 8-26 tablet by [facility] of tablet 00:00: mouth at [place] 00 bedtime. [facility] topiramate 2021-0 Yes [id number] 100mg Take 1 [facility] 100 mg 8-26 tablet by [facility]y of tablet 00:00: mouth 2 (two) Medical times Branch daily. baclofen 5 2021-0 Yes [id number] 5mg Take 1 [facility] mg tablet 8-26 9102 tablet by ity o f 00:00: mouth 3 (three) Medical times Branch daily. albuterol 2021-0 Yes [id number] 2{puff} Inhale 2 [facility] 90 8-26 Puffs ity of mcg/actuati 00:00: every 6 [place] on inhaler 00 (six) Medical hours as Branch needed for Wheezing or Shortness of Breath. omeprazole 2-0 Yes [id number] 40mg Take 2 [facility] 20 mg 8-26 capsules [facility] of capsule 00:00: by mouth 2 [place] 00 (two) Medical times [facility] daily. pravastatin 2021-0 Yes [id number] 10mg Take 1 [facility] 10 mg 8-26 tablet by [facility]y of tablet 00:00: mouth at [place] 00 bedtime. [facility] topiramate 2021-0 Yes [id number] 100mg Take 1 [facility] 100 mg 8-26 tablet by [facility] of tablet 00:00: mouth 2 00 (two) Medical times Branch daily. baclofen 5 2021-0 Yes [id number] 5mg Take 1 [facility] mg tablet 8-26 9102 tablet by ity o f 00:00: mouth 3 00 (three) Medical times Branch daily. albuterol 2021-0 Yes [id number] 2{puff} Inhale 2 [facility] 90 8-26 Puffs ity of mcg/actuati 00:00: every 6 [place] on inhaler 00 (six) Medical hours as Branch needed for Wheezing or Shortness of Breath. omeprazole 2021-0 Yes [id number] 40mg Take 2 [facility] 20 mg 8-26 capsules [facility] capsule 00:00: by mouth 2 [place] (two) Medical times [facility] daily. pravastatin 2021-0 Yes [id number] 10mg Take 1 [facility] 10 mg 8-26 tablet by [facility]y of tablet 00:00: mouth at [place] 00 bedtime. [facility] topiramate 2021-0 Yes [id number] 100mg Take 1 [facility] 100 mg 8-26 tablet by [facility]y of tablet 00:00: mouth 2 00 (two) Medical times Branch daily. baclofen 5 2021-0 Yes [id number] 5mg Take 1 [facility] mg tablet 8-26 9102 tablet by ity o f 00:00: mouth 3 (three) Medical times [facility] daily. albuterol 2021-0 Yes [id number] 2{puff} Inhale 2 [facility] 90 8-26 Puffs ity of mcg/actuati 00:00: every 6 [place] on inhaler 00 (six) Medical hours as Branch needed for Wheezing or Shortness of Breath. omeprazole 2-0 Yes [id number] 40mg Take 2 [facility] 20 mg 8-26 capsules [facility] of capsule 00:00: by mouth 2 [place] 00 (two) Medical times [facility] daily. pravastatin 2022-0 Yes [id number] 10mg Take 1 [facility] 10 mg 8-26 tablet by [facility]y of tablet 00:00: mouth at [place] 00 bedtime. [facility] topiramate 2021-0 Yes [id number] 100mg Take 1 [facility] 100 mg 8-26 tablet by [facility]y of tablet 00:00: mouth 2 (two) Medical times Branch daily. baclofen 5 2021-0 Yes [id number] 5mg Take 1 [facility] mg tablet 8-26 9102 tablet by ity o f 00:00: mouth 3 (three) Medical times Branch daily. albuterol 2021-0 Yes [id number] 2{puff} Inhale 2 [facility] 90 8-26 Puffs ity of mcg/actuati 00:00: every 6 [place] on inhaler 00 (six) Medical hours as Branch needed for Wheezing or Shortness of Breath. omeprazole 2021-0 Yes [id number] 40mg Take 2 [facility] 20 mg 8-26 capsules [facility] of capsule 00:00: by mouth 2 [place] (two) [facility] times [facility] daily. pravastatin 2021-0 Yes [id number] 10mg Take 1 [facility] 10 mg 8-26 tablet by [facility]y of tablet 00:00: mouth at [place] bedtime. Medical [facility] topiramate 2021-0 Yes [id number] 100mg Take 1 [facility] 100 mg 8-26 tablet by [facility]y of tablet 00:00: mouth 2 (two) Medical times Branch daily. baclofen 5 2021-0 Yes [id number] 5mg Take 1 [facility] mg tablet 8-26 9102 tablet by ity o f 00:00: mouth 3 (three) Medical times Branch daily. albuterol 2021-0 Yes [id number] 2{puff} Inhale 2 [facility] 90 8-26 Puffs ity of mcg/actuati 00:00: every 6 [place] on inhaler 00 (six) Medical hours as Branch needed for Wheezing or Shortness of Breath. omeprazole 2021-0 Yes [id number] 40mg Take 2 [facility] 20 mg 8-26 capsules [facility] of capsule 00:00: by mouth 2 [place] (two) [facility] times [facility] daily. pravastatin 2-0 Yes [id number] 10mg Take 1 [facility] 10 mg 8-26 tablet by [facility] of tablet 00:00: mouth at [place] 00 bedtime. [facility] topiramate 2021-0 Yes [id number] 100mg Take 1 [facility] 100 mg 8-26 tablet by ity of tablet 00:00: mouth 2 (two) Medical times Branch daily. baclofen 5 2021-0 Yes [id number] 5mg Take 1 [facility] mg tablet 8-26 9102 tablet by ity o f 00:00: mouth 3 (three) Medical times Branch daily. albuterol 2021-0 Yes [id number] 2{puff} Inhale 2 [facility] 90 8-26 Puffs ity of mcg/actuati 00:00: every 6 [place] on inhaler 00 (six) Medical hours as Branch needed for Wheezing or Shortness of Breath. omeprazole 2021-0 Yes [id number] 40mg Take 2 [facility] 20 mg 8-26 capsules [facility] of capsule 00:00: by mouth 2 [place] 00 (two) Medical times [facility] daily. pravastatin 2021-0 Yes [id number] 10mg Take 1 [facility] 10 mg 8-26 tablet by [facility]y of tablet 00:00: mouth at [place] 00 bedtime. Medical [facility] topiramate 2021-0 Yes [id number] 100mg Take 1 [facility] 100 mg 8-26 tablet by ity of tablet 00:00: mouth 2 (two) Medical times Branch daily. baclofen 5 2021-0 Yes [id number] 5mg Take 1 [facility] mg tablet 8-26 9102 tablet by ity o f 00:00: mouth 3 (three) Medical times Branch daily. albuterol 2021-0 Yes [id number] 2{puff} Inhale 2 [facility] 90 8-26 Puffs ity of mcg/actuati 00:00: every 6 [place] on inhaler 00 (six) Medical hours as Branch needed for Wheezing or Shortness of Breath. omeprazole 2021-0 Yes [id number] 40mg Take 2 [facility] 20 mg 8-26 capsules [facility] of capsule 00:00: by mouth 2 [place] (two) Medical times [facility] daily. pravastatin 2021-0 Yes [id number] 10mg Take 1 [facility] 10 mg 8-26 tablet by [facility]y of tablet 00:00: mouth at 00 bedtime. [facility] topiramate 2021-0 Yes [id number] 100mg Take 1 [facility] 100 mg 8-26 tablet by ity of tablet 00:00: mouth 2 (two) Medical times Branch daily. baclofen 5 2021-0 Yes [id number] 5mg Take 1 [facility] mg tablet 8-26 9102 tablet by ity o f 00:00: mouth 3 (three) Medical times Branch daily. albuterol 2021-0 Yes [id number] 2{puff} Inhale 2 [facility] 90 8-26 Puffs ity of mcg/actuati 00:00: every 6 [place] on inhaler 00 (six) Medical hours as Branch needed for Wheezing or Shortness of Breath. omeprazole 2-0 Yes [id number] 40mg Take 2 [facility] 20 mg 8-26 capsules [facility] of capsule 00:00: by mouth 2 [place] (two) [facility] times [facility] daily. pravastatin 2021-0 Yes [id number] 10mg Take 1 [facility] 10 mg 8-26 tablet by ity of tablet 00:00: mouth at [place] 00 bedtime. Medical Branch topiramate 2021-0 Yes [id number] 100mg Take 1 [facility] 100 mg 8-26 tablet by ity of tablet 00:00: mouth 2 (two) Medical times Branch daily. baclofen 5 2021-0 Yes [id number] 5mg Take 1 [facility] mg tablet 8-26 9102 tablet by ity o f 00:00: mouth 3 (three) Medical times Branch daily. albuterol 2021-0 Yes [id number] 2{puff} Inhale 2 [facility] 90 8-26 Puffs ity of mcg/actuati 00:00: every 6 [place] on inhaler 00 (six) Medical hours as Branch needed for Wheezing or Shortness of Breath. omeprazole 2021-0 Yes [id number] 40mg Take 2 [facility] 20 mg 8-26 capsules [facility] of capsule 00:00: by mouth 2 [place] (two) Medical times [facility] daily. pravastatin 2021-0 Yes [id number] 10mg Take 1 [facility] 10 mg 8-26 tablet by [facility] of tablet 00:00: mouth at [place] 00 bedtime. Medical Branch topiramate 2021-0 Yes [id number] 100mg Take 1 [facility] 100 mg 8-26 tablet by ity of tablet 00:00: mouth 2 (two) Medical times Branch daily. baclofen 5 2021-0 Yes [id number] 5mg Take 1 [facility] mg tablet 8-26 9102 tablet by ity o f 00:00: mouth 3 (three) Medical times Branch daily. albuterol 2-0 Yes [id number] 2{puff} Inhale 2 [facility] 90 8-26 Puffs ity of mcg/actuati 00:00: every 6 [place] on inhaler 00 (six) Medical hours as Branch needed for Wheezing or Shortness of Breath. omeprazole 2021-0 Yes [id number] 40mg Take 2 [facility] 20 mg 8-26 capsules [facility] of capsule 00:00: by mouth 2 [place] 00 (two) Medical times [facility] daily. pravastatin 2021-0 Yes [id number] 10mg Take 1 [facility] 10 mg 8-26 tablet by [facility]y of tablet 00:00: mouth at 00 bedtime. Medical [facility] topiramate 2021-0 Yes [id number] 100mg Take 1 [facility] 100 mg 8-26 tablet by ity of tablet 00:00: mouth (two) Medical times Branch daily. baclofen 5 2021-0 Yes [id number] 5mg Take 1 [facility] mg tablet 8-26 9102 tablet by ity o f 00:00: mouth 3 (three) Medical times Branch daily. albuterol 2021-0 Yes [id number] 2{puff} Inhale 2 [facility] 90 8-26 Puffs ity of mcg/actuati 00:00: every 6 [place] on inhaler 00 (six) Medical hours as Branch needed for Wheezing or Shortness of Breath. omeprazole 2021-0 Yes [id number] 40mg Take 2 [facility] 20 mg 8-26 capsules [facility] of capsule 00:00: by mouth 2 [place] (two) Medical times [facility] daily. pravastatin 2021-0 Yes [id number] 10mg Take 1 [facility] 10 mg 8-26 tablet by ity of tablet 00:00: mouth at 00 bedtime. Medical Branch topiramate 2021-0 Yes [id number] 100mg Take 1 [facility] 100 mg 8-26 tablet by ity of tablet 00:00: mouth 2 (two) Medical times Branch daily. baclofen 5 2021-0 Yes [id number] 5mg Take 1 [facility] mg tablet 8-26 9102 tablet by ity o f 00:00: mouth 3 (three) Medical times Branch daily. albuterol 2021-0 Yes [id number] 2{puff} Inhale 2 [facility] 90 8-26 Puffs ity of mcg/actuati 00:00: every 6 [place] on inhaler 00 (six) Medical hours as Branch needed for Wheezing or Shortness of Breath. omeprazole 2021-0 Yes [id number] 40mg Take 2 [facility] 20 mg 8-26 capsules ity of capsule 00:00: by mouth 2 [place] 00 (two) Medical times [facility] daily. pravastatin 2021-0 Yes [id number] 10mg Take 1 [facility] 10 mg 8-26 tablet by ity of tablet 00:00: mouth at [place] 00 bedtime. Medical [facility] topiramate 2021-0 Yes [id number] 100mg Take 1 [facility] 100 mg 8-26 tablet by ity of tablet 00:00: mouth 2 [place] 00 (two) Medical times Branch daily. baclofen 5 2021-0 Yes [id number] 5mg Take 1 [facility] mg tablet 8-26 9102 tablet by ity o f 00:00: mouth 3 [place] 00 (three) Medical times Branch daily. albuterol 2021-0 Yes [id number] 2{puff} Inhale 2 [facility] 90 8-26 Puffs ity of mcg/actuati 00:00: every 6 [place] on inhaler 00 (six) Medical hours as Branch needed for Wheezing or Shortness of Breath. omeprazole 2021-0 Yes [id number] 40mg Take 2 [facility] 20 mg 8-26 capsules ity of capsule 00:00: by mouth 2 [place] 00 (two) Medical times [facility] daily. pravastatin 2021-0 Yes [id number] 10mg Take 1 [facility] 10 mg 8-26 tablet by ity of tablet 00:00: mouth at [place] [id number] bedtime. Medical Branch Topiramate 2021-0 3- No 100mg Take 1 [place] sey 100 MG oral 8-26 04-10 tablet [place] ld Tablet 00:00: 00:00 (100 mg - 00 :00 total) by Externa mouth 2 l times daily Ondansetron 2021-0 Yes 4mg [id number] Take 1 [facility] (ZOFRAN) 4 8-21 [id number] tablet (4 [place] MG oral 00:00: 3D mg total) - TABLET 00 by mouth Externa DISPERSIBLE every 8 l hours as needed ondansetron 2021-0 Yes [id number] 4mg Take 1 [facility] 4 mg 8-21 tablet by ity of disintegrat 00:00: mouth [place] ing tablet 00 every 8 [facility] l (eight) Branch hours as needed for Nausea and Vomiting (N/V). ondansetron 2022-0 Yes [id number] 4mg Take 1 [facility] 4 mg 8-21 tablet by ity of disintegrat 00:00: mouth [place] ing tablet 00 every 8 [facility] l (eight) Branch hours as needed for Nausea and Vomiting (N/V). ondansetron 2022-0 Yes [id number] 4mg Take 1 [facility] 4 mg 8-21 tablet by ity of disintegrat 00:00: mouth [place] ing tablet 00 every 8 [facility] l (eight) Branch hours as needed for Nausea and Vomiting (N/V). ondansetron 2022-0 Yes [id number] 4mg Take 1 [facility] 4 mg 8-21 tablet by ity of disintegrat 00:00: mouth [place] ing tablet 00 every 8 [facility] (eight) Branch hours as needed for Nausea and Vomiting (N/V). ondansetron 2022-0 Yes [id number] 4mg Take 1 [facility] 4 mg 8-21 tablet by ity of disintegrat 00:00: mouth [place] ing tablet 00 every 8 [facility] (eight) Branch hours as needed for Nausea and Vomiting (N/V). ondansetron 2022-0 Yes [id number] 4mg Take 1 [facility] 4 mg 8-21 tablet by ity of disintegrat 00:00: mouth [place] ing tablet 00 every 8 [facility] l (eight) Branch hours as needed for Nausea and Vomiting (N/V). ondansetron 2022-0 Yes [id number] 4mg Take 1 [facility] 4 mg 8-21 tablet by ity of disintegrat 00:00: mouth [place] ing tablet 00 every 8 [facility] (eight) Branch hours as needed for Nausea and Vomiting (N/V). ondansetron 2022-0 Yes [id number] 4mg Take 1 [facility] 4 mg 8-21 tablet by ity of disintegrat 00:00: mouth [place] ing tablet 00 every 8 [facility] (eight) Branch hours as needed for Nausea and Vomiting (N/V). ondansetron 2022-0 Yes [id number] 4mg Take 1 [facility] 4 mg 8-21 tablet by ity of disintegrat 00:00: mouth [place] ing tablet 00 every 8 [facility] (eight) Branch hours as needed for Nausea and Vomiting (N/V). ondansetron 2022-0 Yes [id number] 4mg Take 1 [facility] 4 mg 8-21 tablet by ity of disintegrat 00:00: mouth [place] ing tablet 00 every 8 [facility] (eight) Branch hours as needed for Nausea and Vomiting (N/V). ondansetron 2-0 Yes [id number] 4mg Take 1 [facility] 4 mg 8-21 tablet by ity of disintegrat 00:00: mouth [place] ing tablet 00 every 8 [facility] (eight) Branch hours as needed for Nausea and Vomiting (N/V). ondansetron 2-0 Yes [id number] 4mg Take 1 [facility] 4 mg 8-21 tablet by ity of disintegrat 00:00: mouth [place] ing tablet 00 every 8 [facility] (eight) Branch hours as needed for Nausea and Vomiting (N/V). ondansetron 2-0 Yes [id number] 4mg Take 1 [facility] 4 mg 8-21 tablet by ity of disintegrat 00:00: mouth [place] ing tablet 00 every 8 [facility] (eight) Branch hours as needed for Nausea and Vomiting (N/V). ondansetron 2-0 Yes [id number] 4mg Take 1 [facility] 4 mg 8-21 tablet by ity of disintegrat 00:00: mouth [place] ing tablet 00 every 8 [facility] (eight) Branch hours as needed for Nausea and Vomiting (N/V). ondansetron 2-0 Yes [id number] 4mg Take 1 [facility] 4 mg 8-21 tablet by ity of disintegrat 00:00: mouth [place] ing tablet 00 every 8 [facility] (eight) Branch hours as needed for Nausea and Vomiting (N/V). ondansetron 2022-0 Yes [id number] 4mg Take 1 [facility] 4 mg 8-21 tablet by ity of disintegrat 00:00: mouth [place] ing tablet 00 every 8 Medica l (eight) Branch hours as needed for Nausea and Vomiting (N/V). ondansetron 2022-0 Yes [id number] 4mg Take 1 [facility] 4 mg 8-21 tablet by ity of disintegrat 00:00: mouth [place] ing tablet 00 every 8 [facility] (eight) Branch hours as needed for Nausea and Vomiting (N/V). ondansetron 2022-0 Yes [id number] 4mg Take 1 [facility] 4 mg 8-21 tablet by ity of disintegrat 00:00: mouth [place] ing tablet 00 every 8 [facility] (eight) Branch hours as needed for Nausea and Vomiting (N/V). ondansetron 2-0 Yes [id number] 4mg Take 1 [facility] 4 mg 8-21 tablet by ity of disintegrat 00:00: mouth [place] ing tablet 00 every 8 [facility] (eight) Branch hours as needed for Nausea and Vomiting (N/V). ondansetron 2-0 Yes [id number] 4mg Take 1 [facility] 4 mg 8-21 tablet by ity of disintegrat 00:00: mouth [place] ing tablet 00 every 8 [facility] (eight) Branch hours as needed for Nausea and Vomiting (N/V). ondansetron 2-0 Yes [id number] 4mg Take 1 [facility] 4 mg 8-21 tablet by ity of disintegrat 00:00: mouth [place] ing tablet 00 every 8 [facility] (eight) Branch hours as needed for Nausea and Vomiting (N/V). ondansetron 2-0 Yes [id number] 4mg Take 1 [facility] 4 mg 8-21 tablet by ity of disintegrat 00:00: mouth [place] ing tablet 00 every 8 [facility] (eight) Branch hours as needed for Nausea and Vomiting (N/V). ondansetron 2-0 Yes [id number] 4mg Take 1 [facility] 4 mg 8-21 tablet by ity of disintegrat 00:00: mouth [place] ing tablet 00 every 8 Med[facility] (eight) Branch hours as needed for Nausea and Vomiting (N/V). ondansetron 2-0 Yes [id number] 4mg Take 1 [facility] 4 mg 8-21 tablet by ity of disintegrat 00:00: mouth [place] ing tablet 00 every 8 [facility] l (eight) Branch hours as needed for Nausea and Vomiting (N/V). ondansetron 2022-0 Yes [id number] 4mg Take 1 [facility] 4 mg 8-21 tablet by ity of disintegrat 00:00: mouth [place] ing tablet 00 every 8 [facility] (eight) Branch hours as needed for Nausea and Vomiting (N/V). ondansetron 2022-0 Yes [id number] 4mg Take 1 [facility] 4 mg 8-21 tablet by ity of disintegrat 00:00: mouth [place] ing tablet 00 every 8 Medica l (eight) Branch hours as needed for Nausea and Vomiting (N/V). ondansetron 2022-0 Yes [id number] 4mg Take 1 [facility] 4 mg 8-21 tablet by ity of disintegrat 00:00: mouth [place] ing tablet 00 every 8 Med[facility] l (eight) Branch hours as needed for Nausea and Vomiting (N/V). ondansetron 2022-0 Yes [id number] 4mg Take 1 [facility] 4 mg 8-21 tablet by ity of disintegrat 00:00: mouth [place] ing tablet 00 every 8 Medica l (eight) Branch hours as needed for Nausea and Vomiting (N/V). ondansetron 2022-0 Yes [id number] 4mg Take 1 [facility] 4 mg 8-21 tablet by ity of disintegrat 00:00: mouth [place] ing tablet 00 every 8 Medica l (eight) Branch hours as needed for Nausea and Vomiting (N/V). ondansetron 2-0 Yes [id number] 4mg Take 1 [facility] 4 mg 8-21 tablet by ity of disintegrat 00:00: mouth [place] ing tablet 00 every 8 [facility] (eight) Branch hours as needed for Nausea and Vomiting (N/V). ondansetron 2-0 Yes [id number] 4mg Take 1 [facility] 4 mg 8-21 tablet by ity of disintegrat 00:00: mouth [place] ing tablet 00 every 8 Med[facility] l (eight) Branch hours as needed for Nausea and Vomiting (N/V). ondansetron 2022-0 Yes [id number] 4mg Take 1 [facility] 4 mg 8-21 tablet by ity of disintegrat 00:00: mouth [place] ing tablet 00 every 8 Medica l (eight) Branch hours as needed for Nausea and Vomiting (N/V). ondansetron 2022-0 Yes [id number] 4mg Take 1 [facility] 4 mg 8-21 tablet by ity of disintegrat 00:00: mouth [place] ing tablet 00 every 8 Medica l (eight) Branch hours as needed for Nausea and Vomiting (N/V). ondansetron 2022-0 Yes [id number] 4mg Take 1 [facility] 4 mg 8-21 tablet by ity of disintegrat 00:00: mouth [place] ing tablet 00 every 8 Medica l (eight) Branch hours as needed for Nausea and Vomiting (N/V). ondansetron 2022-0 Yes [id number] 4mg Take 1 [facility] 4 mg 8-21 tablet by ity of disintegrat 00:00: mouth [place] ing tablet 00 every 8 Medica l (eight) Branch hours as needed for Nausea and Vomiting (N/V). ondansetron 2-0 Yes [id number] 4mg Take 1 [facility] 4 mg 8-21 tablet by ity of disintegrat 00:00: mouth [place] ing tablet 00 every 8 Medica l (eight) Branch hours as needed for Nausea and Vomiting (N/V). ondansetron 2-0 Yes [id number] 4mg Take 1 [facility] 4 mg 8-21 tablet by ity of disintegrat 00:00: mouth [place] ing tablet 00 every 8 Medica l (eight) Branch hours as needed for Nausea and Vomiting (N/V). ondansetron 2-0 Yes [id number] 4mg Take 1 [facility] 4 mg 8-21 tablet by ity of disintegrat 00:00: mouth [place] ing tablet 00 every 8 Medica l (eight) Branch hours as needed for Nausea and Vomiting (N/V). ondansetron 2-0 Yes [id number] 4mg Take 1 [facility] 4 mg 8-21 tablet by ity of disintegrat 00:00: mouth [place] ing tablet 00 every 8 Medica l (eight) Branch hours as needed for Nausea and Vomiting (N/V). ondansetron 2022-0 Yes [id number] 4mg Take 1 [facility] 4 mg 8-21 tablet by ity of disintegrat 00:00: mouth [place] ing tablet 00 every 8 Medica l (eight) Branch hours as needed for Nausea and Vomiting (N/V). ondansetron 2022-0 Yes [id number] 4mg Take 1 [facility] 4 mg 8-21 tablet by ity of disintegrat 00:00: mouth [place] ing tablet 00 every 8 Medica l (eight) Branch hours as needed for Nausea and Vomiting (N/V). ondansetron 2022-0 Yes [id number] 4mg Take 1 [facility] 4 mg 8-21 tablet by ity of disintegrat 00:00: mouth [place] ing tablet 00 every 8 Medica l (eight) Branch hours as needed for Nausea and Vomiting (N/V). ondansetron 2022-0 Yes [id number] 4mg Take 1 [facility] 4 mg 8-21 tablet by ity of disintegrat 00:00: mouth [place] ing tablet 00 every 8 Medica l (eight) Branch hours as needed for Nausea and Vomiting (N/V). ondansetron 2022-0 Yes [id number] 4mg Take 1 [facility] 4 mg 8-21 tablet by ity of disintegrat 00:00: mouth [place] ing tablet 00 every 8 Medica l (eight) Branch hours as needed for Nausea and Vomiting (N/V). ondansetron 2022-0 Yes [id number] 4mg Take 1 [facility] 4 mg 8-21 tablet by ity of disintegrat 00:00: mouth [place] ing tablet 00 every 8 Medica l (eight) Branch hours as needed for Nausea and Vomiting (N/V). ondansetron 2022-0 Yes [id number] 4mg Take 1 [facility] 4 mg 8-21 tablet by ity of disintegrat 00:00: mouth [place] ing tablet 00 every 8 Medica l (eight) Branch hours as needed for Nausea and Vomiting (N/V). ondansetron 2022-0 Yes [id number] 4mg Take 1 [facility] 4 mg 8-21 tablet by ity of disintegrat 00:00: mouth [place] ing tablet 00 every 8 Medica l (eight) Branch hours as needed for Nausea and Vomiting (N/V). ondansetron 2022-0 Yes [id number] 4mg Take 1 [facility] 4 mg 8-21 tablet by ity of disintegrat 00:00: mouth [place] ing tablet 00 every 8 Medica l (eight) Branch hours as needed for Nausea and Vomiting (N/V). ondansetron 2022-0 Yes [id number] 4mg Take 1 [facility] 4 mg 8-21 tablet by ity of disintegrat 00:00: mouth [place] ing tablet 00 every 8 Medica l (eight) Branch hours as needed for Nausea and Vomiting (N/V). ondansetron 2022-0 Yes [id number] 4mg Take 1 [facility] 4 mg 8-21 tablet by ity of disintegrat 00:00: mouth [place] ing tablet 00 every 8 Medica l (eight) Branch hours as needed for Nausea and Vomiting (N/V). ondansetron 2-0 Yes [id number] 4mg Take 1 [facility] 4 mg 8-21 tablet by ity of disintegrat 00:00: mouth [place] ing tablet 00 every 8 Medica l (eight) Branch hours as needed for Nausea and Vomiting (N/V). ondansetron 2-0 Yes [id number] 4mg Take 1 [facility] 4 mg 8-21 tablet by ity of disintegrat 00:00: mouth [place] ing tablet 00 every 8 Medica l (eight) Branch hours as needed for Nausea and Vomiting (N/V). ondansetron 2-0 Yes [id number] 4mg Take 1 [facility] 4 mg 8-21 tablet by ity of disintegrat 00:00: mouth [place] ing tablet 00 every 8 Medica l (eight) Branch hours as needed for Nausea and Vomiting (N/V). ondansetron 2-0 Yes [id number] 4mg Take 1 [facility] 4 mg 8-21 tablet by ity of disintegrat 00:00: mouth [place] ing tablet 00 every 8 Medica l (eight) Branch hours as needed for Nausea and Vomiting (N/V). ondansetron 2-0 Yes [id number] 4mg Take 1 [facility] 4 mg 8-21 tablet by ity of disintegrat 00:00: mouth [place] ing tablet 00 every 8 Medica l (eight) Branch hours as needed for Nausea and Vomiting (N/V). ondansetron 2-0 Yes [id number] 4mg Take 1 [facility] 4 mg 8-21 tablet by ity of disintegrat 00:00: mouth [place] ing tablet 00 every 8 Medica l (eight) Branch hours as needed for Nausea and Vomiting (N/V). ondansetron 2022-0 Yes [id number] 4mg Take 1 [facility] 4 mg 8-21 tablet by ity of disintegrat 00:00: mouth [place] ing tablet 00 every 8 Medica l (eight) Branch hours as needed for Nausea and Vomiting (N/V). ondansetron 2022-0 Yes [id number] 4mg Take 1 [facility] 4 mg 8-21 tablet by ity of disintegrat 00:00: mouth [place] ing tablet 00 every 8 Medica l (eight) Branch hours as needed for Nausea and Vomiting (N/V). ondansetron 2022-0 Yes [id number] 4mg Take 1 [facility] 4 mg 8-21 tablet by ity of disintegrat 00:00: mouth [place] ing tablet 00 every 8 Medica l (eight) Branch hours as needed for Nausea and Vomiting (N/V). ondansetron 2-0 Yes [id number] 4mg Take 1 [facility] 4 mg 8-21 tablet by ity of disintegrat 00:00: mouth [place] ing tablet 00 every 8 Medica l (eight) Branch hours as needed for Nausea and Vomiting (N/V). ondansetron 2-0 Yes [id number] 4mg Take 1 [facility] 4 mg 8-21 tablet by ity of disintegrat 00:00: mouth [place] ing tablet 00 every 8 Medica l (eight) Branch hours as needed for Nausea and Vomiting (N/V). ondansetron 2-0 Yes [id number] 4mg Take 1 [facility] 4 mg 8-21 tablet by ity of disintegrat 00:00: mouth [place] ing tablet 00 every 8 Medica l (eight) Branch hours as needed for Nausea and Vomiting (N/V). ondansetron 2-0 Yes [id number] 4mg Take 1 [facility] 4 mg 8-21 tablet by ity of disintegrat 00:00: mouth [place] ing tablet 00 every 8 Medica l (eight) Branch hours as needed for Nausea and Vomiting (N/V). ondansetron 2-0 Yes [id number] 4mg Take 1 [facility] 4 mg 8-21 tablet by ity of disintegrat 00:00: mouth [place] ing tablet 00 every 8 Medica l (eight) Branch hours as needed for Nausea and Vomiting (N/V). ondansetron 2022-0 Yes [id number] 4mg Take 1 [facility] 4 mg 8-21 tablet by ity of disintegrat 00:00: mouth [place] ing tablet 00 every 8 Medica l (eight) Branch hours as needed for Nausea and Vomiting (N/V). ondansetron 2022-0 Yes [id number] 4mg Take 1 [facility] 4 mg 8-21 tablet by ity of disintegrat 00:00: mouth [place] ing tablet 00 every 8 Medica l (eight) Branch hours as needed for Nausea and Vomiting (N/V). ondansetron 2022-0 Yes [id number] 4mg Take 1 [facility] 4 mg 8-21 tablet by ity of disintegrat 00:00: mouth [place] ing tablet 00 every 8 Medica l (eight) Branch hours as needed for Nausea and Vomiting (N/V). ondansetron 2-0 Yes [id number] 4mg Take 1 [facility] 4 mg 8-21 tablet by ity of disintegrat 00:00: mouth [place] ing tablet 00 every 8 Medica l (eight) Branch hours as needed for Nausea and Vomiting (N/V). ondansetron 2-0 Yes [id number] 4mg Take 1 [facility] 4 mg 8-21 tablet by ity of disintegrat 00:00: mouth [place] ing tablet 00 every 8 Medica l (eight) Branch hours as needed for Nausea and Vomiting (N/V). ondansetron 2-0 Yes [id number] 4mg Take 1 [facility] 4 mg 8-21 tablet by ity of disintegrat 00:00: mouth [place] ing tablet 00 every 8 Medica l (eight) Branch hours as needed for Nausea and Vomiting (N/V). ondansetron 2-0 Yes [id number] 4mg Take 1 [facility] 4 mg 8-21 tablet by ity of disintegrat 00:00: mouth [place] ing tablet 00 every 8 Medica l (eight) Branch hours as needed for Nausea and Vomiting (N/V). ondansetron 2-0 Yes [id number] 4mg Take 1 [facility] 4 mg 8-21 tablet by ity of disintegrat 00:00: mouth [place] ing tablet 00 every 8 Medica l (eight) Branch hours as needed for Nausea and Vomiting (N/V). ondansetron 2-0 Yes [id number] 4mg Take 1 [facility] 4 mg 8-21 tablet by ity of disintegrat 00:00: mouth [place] ing tablet 00 every 8 Medica l (eight) Branch hours as needed for Nausea and Vomiting (N/V). ondansetron 2022-0 Yes [id number] 4mg Take 1 [facility] 4 mg 8-21 tablet by ity of disintegrat 00:00: mouth [place] ing tablet 00 every 8 Medica l (eight) Branch hours as needed for Nausea and Vomiting (N/V). ondansetron 2022-0 Yes [id number] 4mg Take 1 [facility] 4 mg 8-21 tablet by ity of disintegrat 00:00: mouth [place] ing tablet 00 every 8 Medica l (eight) Branch hours as needed for Nausea and Vomiting (N/V). ondansetron 2022-0 Yes [id number] 4mg Take 1 [facility] 4 mg 8-21 tablet by ity of disintegrat 00:00: mouth [place] ing tablet 00 every 8 Medica l (eight) Branch hours as needed for Nausea and Vomiting (N/V). ondansetron 2022-0 Yes [id number] 4mg Take 1 [facility] 4 mg 8-21 tablet by ity of disintegrat 00:00: mouth [place] ing tablet 00 every 8 Medica l (eight) Branch hours as needed for Nausea and Vomiting (N/V). ondansetron 2022-0 Yes [id number] 4mg Take 1 [facility] 4 mg 8-21 tablet by ity of disintegrat 00:00: mouth [place] ing tablet 00 every 8 Medica l (eight) Branch hours as needed for Nausea and Vomiting (N/V). ondansetron 2022-0 Yes [id number] 4mg Take 1 [facility] 4 mg 8-21 tablet by ity of disintegrat 00:00: mouth [place] ing tablet 00 every 8 Medica l (eight) Branch hours as needed for Nausea and Vomiting (N/V). ondansetron 2022-0 Yes [id number] 4mg Take 1 [facility] 4 mg 8-21 tablet by ity of disintegrat 00:00: mouth [place] ing tablet 00 every 8 Medica l (eight) Branch hours as needed for Nausea and Vomiting (N/V). lisinopril 2022-0 Yes [facility] 10 MG 7-11 [facility] tablet 00:00: 00 metFORMIN 2022-0 Yes [facility] (Glucophage 7-11 [facility] ) 500 MG 00:00: tablet 00 lisinopril 2022-0 Yes 10mg QD Take 10 mg [facility] 10 MG 7-11 by mouth 1 Health tablet 00:00: (one) time 00 each day. lisinopril 2022-0 Yes 10mg QD Take 10 mg [facility] 10 MG 7-11 by mouth 1 [facility] tablet 00:00: (one) time 00 each day. Metformin 2022-0 Yes 500mg Take 1 [facility] HCl 500 MG 7-11 tablet [facility] oral Tablet 00:00: (500 mg - 00 total) by Externa mouth l daily gabapentin 2022-0 Yes [id number] TAKE 4 [facility] 300 mg 7-11 CAPSULES ity of capsule 00:00: BY MOUTH [place] 00 IN THE Medical MORNING Branch FOR PAIN AND 3 CAPSULES BY MOUTH AT NOON AND 3 CAPSULES BY MOUTH AT NIGHT FOR PAIN AND SLEEP. gabapentin 2022-0 Yes [id number] TAKE 4 [facility] 300 mg 7-11 CAPSULES ity of capsule 00:00: BY MOUTH [place] 00 IN THE Medical MORNING Branch FOR PAIN AND 3 CAPSULES BY MOUTH AT NOON AND 3 CAPSULES BY MOUTH AT NIGHT FOR PAIN AND SLEEP. gabapentin 2022-0 Yes [id number] TAKE 4 [facility] 300 mg 7-11 CAPSULES ity of capsule 00:00: BY MOUTH [place] 00 IN THE Medical MORNING Branch FOR PAIN AND 3 CAPSULES BY MOUTH AT NOON AND 3 CAPSULES BY MOUTH AT NIGHT FOR PAIN AND SLEEP. gabapentin 202-0 Yes [id number] TAKE 4 [facility] 300 mg 7-11 CAPSULES ity of capsule 00:00: BY MOUTH [place] 00 IN THE Medical MORNING Branch FOR PAIN AND 3 CAPSULES BY MOUTH AT NOON AND 3 CAPSULES BY MOUTH AT NIGHT FOR PAIN AND SLEEP. gabapentin 2021-0 Yes [id number] TAKE 4 [facility] 300 mg 7-11 CAPSULES ity of capsule 00:00: BY MOUTH [place] 00 IN THE Medical MORNING Branch FOR PAIN AND 3 CAPSULES BY MOUTH AT NOON AND 3 CAPSULES BY MOUTH AT NIGHT FOR PAIN AND SLEEP. gabapentin 2022-0 Yes [id number] TAKE 4 [facility] 300 mg 7-11 CAPSULES ity of capsule 00:00: BY MOUTH [place] 00 IN THE Medical MORNING Branch FOR PAIN AND 3 CAPSULES BY MOUTH AT NOON AND 3 CAPSULES BY MOUTH AT NIGHT FOR PAIN AND SLEEP. gabapentin 2022-0 Yes [id number] TAKE 4 [facility] 300 mg 7-11 CAPSULES ity of capsule 00:00: BY MOUTH [place] 00 IN THE Medical MORNING Branch FOR PAIN AND 3 CAPSULES BY MOUTH AT NOON AND 3 CAPSULES BY MOUTH AT NIGHT FOR PAIN AND SLEEP. gabapentin 2022-0 Yes [id number] TAKE 4 [facility] 300 mg 7-11 CAPSULES ity of capsule 00:00: BY MOUTH [place] 00 IN THE Medical MORNING Branch FOR PAIN AND 3 CAPSULES BY MOUTH AT NOON AND 3 CAPSULES BY MOUTH AT NIGHT FOR PAIN AND SLEEP. gabapentin 2022-0 Yes [id number] TAKE 4 [facility] 300 mg 7-11 CAPSULES ity of capsule 00:00: BY MOUTH [place] 00 IN THE Medical MORNING Branch FOR PAIN AND 3 CAPSULES BY MOUTH AT NOON AND 3 CAPSULES BY MOUTH AT NIGHT FOR PAIN AND SLEEP. gabapentin 2022-0 Yes [id number] TAKE 4 [facility] 300 mg 7-11 CAPSULES ity of capsule 00:00: BY MOUTH [place] 00 IN THE Medical MORNING Branch FOR PAIN AND 3 CAPSULES BY MOUTH AT NOON AND 3 CAPSULES BY MOUTH AT NIGHT FOR PAIN AND SLEEP. gabapentin 202-0 Yes [id number] TAKE 4 [facility] 300 mg 7-11 CAPSULES ity of capsule 00:00: BY MOUTH [place] 00 IN THE Medical MORNING Branch FOR PAIN AND 3 CAPSULES BY MOUTH AT NOON AND 3 CAPSULES BY MOUTH AT NIGHT FOR PAIN AND SLEEP. gabapentin 202-0 Yes [id number] TAKE 4 [facility] 300 mg 7-11 CAPSULES ity of capsule 00:00: BY MOUTH [place] 00 IN THE Medical MORNING Branch FOR PAIN AND 3 CAPSULES BY MOUTH AT NOON AND 3 CAPSULES BY MOUTH AT NIGHT FOR PAIN AND SLEEP. gabapentin 202-0 Yes [id number] TAKE 4 [facility] 300 mg 7-11 CAPSULES ity of capsule 00:00: BY MOUTH [place] 00 IN THE Medical MORNING Branch FOR PAIN AND 3 CAPSULES BY MOUTH AT NOON AND 3 CAPSULES BY MOUTH AT NIGHT FOR PAIN AND SLEEP. gabapentin 2021-0 Yes [id number] TAKE 4 [facility] 300 mg 7-11 CAPSULES ity of capsule 00:00: BY MOUTH [place] 00 IN THE Medical MORNING Branch FOR PAIN AND 3 CAPSULES BY MOUTH AT NOON AND 3 CAPSULES BY MOUTH AT NIGHT FOR PAIN AND SLEEP. gabapentin 2022-0 Yes [id number] TAKE 4 [facility] 300 mg 7-11 CAPSULES ity of capsule 00:00: BY MOUTH [place] 00 IN THE Medical MORNING Branch FOR PAIN AND 3 CAPSULES BY MOUTH AT NOON AND 3 CAPSULES BY MOUTH AT NIGHT FOR PAIN AND SLEEP. gabapentin 2022-0 Yes [id number] TAKE 4 [facility] 300 mg 7-11 CAPSULES ity of capsule 00:00: BY MOUTH [place] 00 IN THE Medical MORNING Branch FOR PAIN AND 3 CAPSULES BY MOUTH AT NOON AND 3 CAPSULES BY MOUTH AT NIGHT FOR PAIN AND SLEEP. gabapentin 2022-0 Yes [id number] TAKE 4 [facility] 300 mg 7-11 CAPSULES ity of capsule 00:00: BY MOUTH [place] 00 IN THE Medical MORNING Branch FOR PAIN AND 3 CAPSULES BY MOUTH AT NOON AND 3 CAPSULES BY MOUTH AT NIGHT FOR PAIN AND SLEEP. gabapentin 2022-0 Yes [id number] TAKE 4 [facility] 300 mg 7-11 CAPSULES ity of capsule 00:00: BY MOUTH [place] 00 IN THE Medical MORNING Branch FOR PAIN AND 3 CAPSULES BY MOUTH AT NOON AND 3 CAPSULES BY MOUTH AT NIGHT FOR PAIN AND SLEEP. gabapentin 2022-0 Yes [id number] TAKE 4 [facility] 300 mg 7-11 CAPSULES ity of capsule 00:00: BY MOUTH [place] 00 IN THE Medical MORNING Branch FOR PAIN AND 3 CAPSULES BY MOUTH AT NOON AND 3 CAPSULES BY MOUTH AT NIGHT FOR PAIN AND SLEEP. gabapentin 2022-0 Yes [id number] TAKE 4 [facility] 300 mg 7-11 CAPSULES ity of capsule 00:00: BY MOUTH [place] 00 IN THE Medical MORNING Branch FOR PAIN AND 3 CAPSULES BY MOUTH AT NOON AND 3 CAPSULES BY MOUTH AT NIGHT FOR PAIN AND SLEEP. gabapentin 2022-0 Yes [id number] TAKE 4 [facility] 300 mg 7-11 CAPSULES ity of capsule 00:00: BY MOUTH [place] 00 IN THE Medical MORNING Branch FOR PAIN AND 3 CAPSULES BY MOUTH AT NOON AND 3 CAPSULES BY MOUTH AT NIGHT FOR PAIN AND SLEEP. gabapentin 2022-0 Yes [id number] TAKE 4 [facility] 300 mg 7-11 CAPSULES ity of capsule 00:00: BY MOUTH [place] 00 IN THE Medical MORNING Branch FOR PAIN AND 3 CAPSULES BY MOUTH AT NOON AND 3 CAPSULES BY MOUTH AT NIGHT FOR PAIN AND SLEEP. gabapentin 2022-0 Yes [id number] TAKE 4 [facility] 300 mg 7-11 CAPSULES ity of capsule 00:00: BY MOUTH [place] 00 IN THE Medical MORNING Branch FOR PAIN AND 3 CAPSULES BY MOUTH AT NOON AND 3 CAPSULES BY MOUTH AT NIGHT FOR PAIN AND SLEEP. gabapentin 2022-0 Yes [id number] TAKE 4 [facility] 300 mg 7-11 CAPSULES ity of capsule 00:00: BY MOUTH [place] 00 IN THE Medical MORNING Branch FOR PAIN AND 3 CAPSULES BY MOUTH AT NOON AND 3 CAPSULES BY MOUTH AT NIGHT FOR PAIN AND SLEEP. gabapentin 2022-0 Yes [id number] TAKE 4 [facility] 300 mg 7-11 CAPSULES ity of capsule 00:00: BY MOUTH [place] 00 IN THE Medical MORNING Branch FOR PAIN AND 3 CAPSULES BY MOUTH AT NOON AND 3 CAPSULES BY MOUTH AT NIGHT FOR PAIN AND SLEEP. gabapentin 2022-0 Yes [id number] TAKE 4 [facility] 300 mg 7-11 CAPSULES ity of capsule 00:00: BY MOUTH [place] 00 IN THE Medical MORNING Branch FOR PAIN AND 3 CAPSULES BY MOUTH AT NOON AND 3 CAPSULES BY MOUTH AT NIGHT FOR PAIN AND SLEEP. gabapentin 2022-0 Yes [id number] TAKE 4 [facility] 300 mg 7-11 CAPSULES ity of capsule 00:00: BY MOUTH IN THE Medical MORNING Branch FOR PAIN AND 3 CAPSULES BY MOUTH AT NOON AND 3 CAPSULES BY MOUTH AT NIGHT FOR PAIN AND SLEEP. gabapentin 2022-0 Yes [id number] TAKE 4 [facility] 300 mg 7-11 CAPSULES ity of capsule 00:00: BY MOUTH IN THE Medical MORNING Branch FOR PAIN AND 3 CAPSULES BY MOUTH AT NOON AND 3 CAPSULES BY MOUTH AT NIGHT FOR PAIN AND SLEEP. lisinopriL 2022-0 Yes 10mg Take 10 mg [facility] 10 mg 7-11 by mouth ity of tablet 00:00: daily. [facility] Branch metFORMIN 2021-0 Yes 500mg Take 500 [facility] vers 500 mg 7-11 mg by ity of tablet 00:00: mouth daily. Medical Branch gabapentin 2022-0 Yes [id number] TAKE 4 [facility] 300 mg 7-11 CAPSULES ity of capsule 00:00: BY MOUTH IN THE Medical MORNING Branch FOR PAIN AND 3 CAPSULES BY MOUTH AT NOON AND 3 CAPSULES BY MOUTH AT NIGHT FOR PAIN AND SLEEP. lisinopriL 2-0 Yes 10mg Take 10 mg [facility] nivers 10 mg 7-11 by mouth ity of tablet 00:00: daily. [facility] Branch metFORMIN 2022-0 Yes 500mg Take 500 [facility] vers 500 mg 7-11 mg by ity of tablet 00:00: mouth daily. Medical Branch gabapentin 2022-0 Yes [id number] TAKE 4 [facility] 300 mg 7-11 CAPSULES ity of capsule 00:00: BY MOUTH IN THE Medical MORNING Branch FOR PAIN AND 3 CAPSULES BY MOUTH AT NOON AND 3 CAPSULES BY MOUTH AT NIGHT FOR PAIN AND SLEEP. lisinopriL 2022-0 Yes 10mg Take 10 mg [facility] 10 mg 7-11 by mouth ity of tablet 00:00: daily. [facility] Branch metFORMIN 2022-0 Yes 500mg Take 500 [facility] vers 500 mg 7-11 mg by ity of tablet 00:00: mouth daily. Medical Branch gabapentin 2022-0 Yes [id number] TAKE 4 [facility] 300 mg 7-11 CAPSULES [...] 00 daily. [facility] Branch gabapentin 2022-0 Yes [id number] TAKE 4 [facility] 300 mg 7-11 CAPSULES [...] 00 daily. Medical Branch gabapentin 2022-0 Yes [id number] TAKE 4 [facility] 300 mg 7-11 CAPSULES ity of capsule 00:00: BY MOUTH [place] 00 IN THE Medical MORNING Branch FOR PAIN AND 3 CAPSULES BY MOUTH AT NOON AND 3 CAPSULES BY MOUTH AT NIGHT FOR PAIN AND SLEEP. gabapentin 2021-0 Yes [id number] TAKE 4 [facility] 300 mg 7-11 CAPSULES ity of capsule 00:00: BY MOUTH [place] 00 IN THE Medical MORNING Branch FOR PAIN AND 3 CAPSULES BY MOUTH AT NOON AND 3 CAPSULES BY MOUTH AT NIGHT FOR PAIN AND SLEEP. gabapentin 2-0 Yes [id number] TAKE 4 [facility] 300 mg 7-11 CAPSULES [...] 00 daily. Medical Branch gabapentin 2022-0 Yes [id number] TAKE 4 [facility] 300 mg 7-11 CAPSULES ity of capsule 00:00: BY MOUTH [place] 00 IN THE Medical MORNING Branch FOR PAIN AND 3 CAPSULES BY MOUTH AT NOON AND 3 CAPSULES BY MOUTH AT NIGHT FOR PAIN AND SLEEP. gabapentin 2022-0 Yes [id number] TAKE 4 [facility] 300 mg 7-11 CAPSULES [...] 00 daily. Medical Branch gabapentin 2022-0 Yes [id number] TAKE 4 [facility] 300 mg 7-11 CAPSULES [...] 00 daily. Medical Branch gabapentin 2022-0 Yes [id number] TAKE 4 [facility] 300 mg 7-11 CAPSULES [...] 00 daily. Medical Branch gabapentin 2022-0 Yes [id number] TAKE 4 [facility] 300 mg 7-11 CAPSULES [...] 00 daily. Medical Branch gabapentin 2-0 Yes [id number] TAKE 4 [facility] 300 mg 7-11 CAPSULES [...] 00 daily. Medical Branch gabapentin 2022-0 Yes [id number] TAKE 4 [facility] 300 mg 7-11 CAPSULES [...] 00 daily. Medical Branch gabapentin 2022-0 Yes [id number] TAKE 4 [facility] 300 mg 7-11 CAPSULES [...] 00 daily. Medical Branch gabapentin 2022-0 Yes [id number] TAKE 4 [facility] 300 mg 7-11 CAPSULES ity of capsule 00:00: BY MOUTH [place] 00 IN THE Medical MORNING Branch FOR PAIN AND 3 CAPSULES BY MOUTH AT NOON AND 3 CAPSULES BY MOUTH AT NIGHT FOR PAIN AND SLEEP. metFORMIN 2022-0 Yes 500mg Take 500 [facility] vers 500 mg 7-11 mg by ity of tablet 00:00: mouth [place] 00 daily. [facility] Branch gabapentin 2022-0 Yes [id number] TAKE 4 [facility] 300 mg 7-11 CAPSULES [...] 00 daily. Medical Branch gabapentin 2022-0 Yes [id number] TAKE 4 [facility] 300 mg 7-11 CAPSULES [...] 00 daily. Medical Branch gabapentin 2022-0 Yes [id number] TAKE 4 [facility] 300 mg 7-11 CAPSULES ity of capsule 00:00: BY MOUTH [place] 00 IN THE Medical MORNING Branch FOR PAIN AND 3 CAPSULES BY MOUTH AT NOON AND 3 CAPSULES BY MOUTH AT NIGHT FOR PAIN AND SLEEP. metFORMIN 2022-0 Yes 500mg Take 500 [facility] vers 500 mg 7-11 mg by ity of tablet 00:00: mouth [place] 00 daily. [facility] Branch gabapentin 2022-0 Yes [id number] TAKE 4 [facility] 300 mg 7-11 CAPSULES [...] 00 daily. Medical Branch gabapentin 2022-0 Yes [id number] TAKE 4 [facility] 300 mg 7-11 CAPSULES [...] 00 daily. Medical Branch gabapentin 2022-0 Yes [id number] TAKE 4 [facility] 300 mg 7-11 CAPSULES [...] 00 daily. Medical Branch gabapentin 2-0 Yes [id number] TAKE 4 [facility] 300 mg 7-11 CAPSULES [...] 00 daily. Medical Branch gabapentin 2-0 Yes [id number] TAKE 4 [facility] 300 mg 7-11 CAPSULES [...] 00 daily. Medical Branch gabapentin 2022-0 Yes [id number] TAKE 4 [facility] 300 mg 7-11 CAPSULES [...] 00 daily. Medical Branch gabapentin 2022-0 Yes [id number] TAKE 4 [facility] 300 mg 7-11 CAPSULES [...] 00 daily. Medical Branch gabapentin 2022-0 Yes [id number] TAKE 4 [facility] 300 mg 7-11 CAPSULES [...] 00 daily. Medical Branch gabapentin 2-0 Yes [id number] TAKE 4 [facility] 300 mg 7-11 CAPSULES [...] 00 daily. Medical Branch gabapentin 2-0 Yes [id number] TAKE 4 [facility] 300 mg 7-11 CAPSULES [...] 00 daily. Medical Branch gabapentin 2022-0 Yes [id number] TAKE 4 [facility] 300 mg 7-11 CAPSULES [...] 00 daily. Medical Branch gabapentin 2022-0 Yes [id number] TAKE 4 [facility] 300 mg 7-11 CAPSULES [...] 00 daily. Medical Branch gabapentin 2022-0 Yes [id number] TAKE 4 [facility] 300 mg 7-11 CAPSULES [...] 00 daily. Medical Branch gabapentin 2022-0 Yes [id number] TAKE 4 [facility] 300 mg 7-11 CAPSULES [...] 00 daily. Medical Branch gabapentin 2022-0 Yes [id number] TAKE 4 [facility] 300 mg 7-11 CAPSULES [...] 00 daily. Medical Branch gabapentin 2-0 Yes [id number] TAKE 4 [facility] 300 mg 7-11 CAPSULES [...] 00 daily. Medical Branch gabapentin 2022-0 Yes [id number] TAKE 4 [facility] 300 mg 7-11 CAPSULES [...] 00 daily. Medical Branch gabapentin 2022-0 Yes [id number] TAKE 4 [facility] 300 mg 7-11 CAPSULES [...] 00 daily. Medical Branch gabapentin 2022-0 Yes [id number] TAKE 4 [facility] 300 mg 7-11 CAPSULES [...] 00 daily. Medical Branch gabapentin 2022-0 Yes [id number] TAKE 4 [facility] 300 mg 7-11 CAPSULES [...] 00 daily. Medical Branch gabapentin 2-0 Yes [id number] TAKE 4 [facility] 300 mg 7-11 CAPSULES [...] 00 daily. Medical Branch gabapentin 2022-0 Yes [id number] TAKE 4 [facility] 300 mg 7-11 CAPSULES [...] 00 daily. Medical Branch gabapentin 2022-0 Yes [id number] TAKE 4 [facility] 300 mg 7-11 CAPSULES [...] 00 daily. Medical Branch gabapentin 2022-0 Yes [id number] TAKE 4 [facility] 300 mg 7-11 CAPSULES [...] 00 daily. Medical Branch gabapentin 2022-0 Yes [id number] TAKE 4 [facility] 300 mg 7-11 CAPSULES [...] 00 daily. Medical Branch gabapentin 2022-0 Yes [id number] TAKE 4 [facility] 300 mg 7-11 CAPSULES [...] 00 daily. Medical Branch gabapentin 2022-0 Yes [id number] TAKE 4 [facility] 300 mg 7-11 CAPSULES [...] 00 daily. Medical Branch gabapentin 2022-0 Yes [id number] TAKE 4 [facility] 300 mg 7-11 CAPSULES [...] 00 daily. Medical Branch gabapentin 2022-0 Yes [id number] TAKE 4 [facility] 300 mg 7-11 CAPSULES ity of capsule 00:00: BY MOUTH [place] 00 IN THE Medical MORNING Branch FOR PAIN AND 3 CAPSULES BY MOUTH AT NOON AND 3 CAPSULES BY MOUTH AT NIGHT FOR PAIN AND SLEEP. metFORMIN 2021-0 Yes 500mg Take 500 [facility] vers 500 mg 7-11 mg by ity of tablet 00:00: mouth [place] 00 daily. Medical Branch gabapentin 202-0 Yes [id number] TAKE 4 [facility] 300 mg 7-11 CAPSULES ity of capsule 00:00: BY MOUTH [place] 00 IN THE Medical MORNING Branch FOR PAIN AND 3 CAPSULES BY MOUTH AT NOON AND 3 CAPSULES BY MOUTH AT NIGHT FOR PAIN AND SLEEP. metFORMIN 2021-0 Yes 500mg Take 500 [facility] vers 500 mg 7-11 mg by ity of tablet 00:00: mouth [place] 00 daily. Medical Branch gabapentin 2021-0 Yes [id number] TAKE 4 [facility] 300 mg 7-11 CAPSULES ity of capsule 00:00: BY MOUTH [place] 00 IN THE Medical MORNING Branch FOR PAIN AND 3 CAPSULES BY MOUTH AT NOON AND 3 CAPSULES BY MOUTH AT NIGHT FOR PAIN AND SLEEP. metFORMIN 2021-0 Yes 500mg Take 500 [facility] vers 500 mg 7-11 mg by ity of tablet 00:00: mouth [place] 00 daily. Medical Branch gabapentin 2021-0 Yes [id number] TAKE 4 [facility] 300 mg 7-11 CAPSULES ity of capsule 00:00: BY MOUTH [place] 00 IN THE Medical MORNING Branch FOR PAIN AND 3 CAPSULES BY MOUTH AT NOON AND 3 CAPSULES BY MOUTH AT NIGHT FOR PAIN AND SLEEP. metFORMIN 2021-0 Yes 500mg Take 500 [facility] vers 500 mg 7-11 mg by ity of tablet 00:00: mouth [place] 00 daily. Medical Branch gabapentin 2021-0 Yes [id number] TAKE 4 [facility] 300 mg 7-11 CAPSULES ity of capsule 00:00: BY MOUTH [place] 00 IN THE Medical MORNING Branch FOR PAIN AND 3 CAPSULES BY MOUTH AT NOON AND 3 CAPSULES BY MOUTH AT NIGHT FOR PAIN AND SLEEP. metFORMIN 2-0 Yes 500mg Take 500 [facility] vers 500 mg 7-11 mg by ity of tablet 00:00: mouth [place] 00 daily. Medical Branch Gabapentin 2-0 2023- No TAKE 4 [facility] 300 MG oral 7-11 04-10 CAPSULES [facility] Capsule 00:00: 00:00 BY MOUTH - 00 :00 IN THE Externa MORNING l FOR PAIN AND 3 CAPSULES BY MOUTH AT NOON AND 3 CAPSULES BY MOUTH AT NIGHT FOR PAIN AND SLEEP. metFORMIN 2022- No [place] (Glucophage 04-02 [facility] ) 500 MG 00:00: 00:00 tablet 00 :00 lisinopriL 2021-0 2021- No 10mg Take 10 mg [facility] 10 mg 04-02 by mouth ity of tablet 00:00: 00:00 daily. [place] 00 :00 [facility] lisinopriL 2021-0 2021- No 10mg Take 10 mg [facility] 10 mg 04-0216 by mouth ity of tablet 00:00: 00:00 daily. [place] 00 :00 Medical Branch blood sugar 2021-0 Yes [id number] Check [facility] diagnostic 3-07 blood ity of strip 00:00: sugar 2 [place] 00 times a Medical day. Branch E11.9. Brand per insurance. blood sugar 2021-0 Yes [id number] Check [facility] diagnostic 3-07 blood ity of strip 00:00: sugar 2 [place] 00 times a Medical day. Branch E11.9. Brand per insurance. blood sugar 2021-0 Yes [id number] Check [facility] diagnostic 3-07 blood ity of strip 00:00: sugar 2 [place] 00 times a Medical day. Branch E11.9. Brand per insurance. blood sugar 2021-0 Yes [id number] Check [facility] diagnostic 3-07 blood ity of strip 00:00: sugar 2 [place] 00 times a Medical day. Branch E11.9. Brand per insurance. blood sugar 2021-0 Yes [id number] Check [facility] diagnostic 3-07 blood ity of strip 00:00: sugar 2 [place] 00 times a Medical day. Branch E11.9. Brand per insurance. blood sugar 2021-0 Yes [id number] Check [facility] diagnostic 3-07 blood ity of strip 00:00: sugar 2 [place] 00 times a Medical day. Branch E11.9. Brand per insurance. blood sugar 2021-0 Yes [id number] Check [facility] diagnostic 3-07 blood ity of strip 00:00: sugar 2 [place] 00 times a Medical day. Branch E11.9. Brand per insurance. blood sugar 2021-0 Yes [id number] Check [facility] diagnostic 3-07 blood ity of strip 00:00: sugar 2 [place] 00 times a Medical day. Branch E11.9. Brand per insurance. blood sugar 2021-0 Yes [id number] Check [facility] diagnostic 3-07 blood ity of strip 00:00: sugar 2 [place] 00 times a Medical day. Branch E11.9. Brand per insurance. blood sugar 2-0 Yes [id number] Check [facility] diagnostic 3-07 blood ity of strip 00:00: sugar 2 [place] 00 times a Medical day. Branch E11.9. Brand per insurance. blood sugar 2021-0 Yes [id number] Check [facility] diagnostic 3-07 blood ity of strip 00:00: sugar 2 [place] 00 times a Medical day. Branch E11.9. Brand per insurance. blood sugar 2021-0 Yes [id number] Check [facility] diagnostic 3-07 blood ity of strip 00:00: sugar 2 [place] 00 times a Medical day. Branch E11.9. Brand per insurance. blood sugar 2021-0 Yes [id number] Check [facility] diagnostic 3-07 blood ity of strip 00:00: sugar 2 [place] 00 times a Medical day. Branch E11.9. Brand per insurance. blood sugar 2021-0 Yes [id number] Check [facility] diagnostic 3-07 blood ity of strip 00:00: sugar 2 [place] 00 times a Medical day. Branch E11.9. Brand per insurance. blood sugar 2021-0 Yes [id number] [facility] blood ity of strip 00:00: sugar 2 [place] 00 times a Medical day. Branch E11.9. Brand per insurance. blood sugar 2021-0 Yes [id number] [facility] blood ity of strip 00:00: sugar 2 [place] 00 times a Medical day. Branch E11.9. Brand per insurance. blood sugar 2021-0 Yes [id number] [facility]07 blood ity of strip 00:00: sugar 2 [place] 00 times a Medical day. Branch E11.9. Brand per insurance. blood sugar 2-0 Yes [id number] [facility] blood ity of strip 00:00: sugar 2 [place] 00 times a Medical day. Branch E11.9. Brand per insurance. blood sugar 2-0 Yes [id number] [facility] blood ity of strip 00:00: sugar 2 [place] 00 times a Medical day. Branch E11.9. Brand per insurance. blood sugar 2022-0 Yes [id number] [facility] blood ity of strip 00:00: sugar 2 [place] 00 times a Medical day. Branch E11.9. Brand per insurance. blood sugar 2021-0 Yes [id number] [facility]07 blood ity of strip 00:00: sugar 2 [place] 00 times a Medical day. Branch E11.9. Brand per insurance. blood sugar 2021-0 Yes [id number] [facility]07 blood ity of strip 00:00: sugar 2 [place] 00 times a Medical day. Branch E11.9. Brand per insurance. blood sugar 2021-0 Yes [id number] [facility]07 blood ity of strip 00:00: sugar 2 [place] 00 times a Medical day. Branch E11.9. Brand per insurance. blood sugar 2021-0 Yes [id number] [facility]07 blood ity of strip 00:00: sugar 2 [place] 00 times a Medical day. Branch E11.9. Brand per insurance. blood sugar 2021-0 Yes [id number] [facility]07 blood ity of strip 00:00: sugar 2 [place] 00 times a Medical day. Branch E11.9. Brand per insurance. blood sugar 2021-0 Yes [id number] [facility]07 blood ity of strip 00:00: sugar 2 [place] 00 times a Medical day. Branch E11.9. Brand per insurance. blood sugar 2021-0 Yes [id number] [facility]07 blood ity of strip 00:00: sugar 2 [place] 00 times a Medical day. Branch E11.9. Brand per insurance. blood sugar 2021-0 Yes [id number] [facility]07 blood ity of strip 00:00: sugar 2 [place] 00 times a Medical day. Branch E11.9. Brand per insurance. blood sugar 2021-0 Yes [id number] [facility]07 blood ity of strip 00:00: sugar 2 [place] 00 times a Medical day. Branch E11.9. Brand per insurance. blood sugar 2021-0 Yes [id number] [facility]07 blood ity of strip 00:00: sugar 2 [place] 00 times a Medical day. Branch E11.9. Brand per insurance. blood sugar 2021-0 Yes [id number] [facility]07 blood ity of strip 00:00: sugar 2 [place] 00 times a Medical day. Branch E11.9. Brand per insurance. blood sugar 2021-0 Yes [id number] [facility]07 blood ity of strip 00:00: sugar 2 [place] 00 times a Medical day. Branch E11.9. Brand per insurance. blood sugar 2021-0 Yes [id number] [facility]07 blood ity of strip 00:00: sugar 2 [place] 00 times a Medical day. Branch E11.9. Brand per insurance. blood sugar 2021-0 Yes [id number] [facility]07 blood ity of strip 00:00: sugar 2 [place] 00 times a Medical day. Branch E11.9. Brand per insurance. blood sugar 2021-0 Yes [id number] [facility]07 blood ity of strip 00:00: sugar 2 [place] 00 times a Medical day. Branch E11.9. Brand per insurance. blood sugar 2021-0 Yes [id number] [facility]07 blood ity of strip 00:00: sugar 2 [place] 00 times a Medical day. Branch E11.9. Brand per insurance. blood sugar 2021-0 Yes [id number] [facility]07 blood ity of strip 00:00: sugar 2 [place] 00 times a Medical day. Branch E11.9. Brand per insurance. blood sugar 2021-0 Yes [id number] [facility]07 blood ity of strip 00:00: sugar 2 [place] 00 times a Medical day. Branch E11.9. Brand per insurance. blood sugar 2021-0 Yes [id number] [facility]07 blood ity of strip 00:00: sugar 2 [place] 00 times a Medical day. Branch E11.9. Brand per insurance. blood sugar 2021-0 Yes [id number] [facility]07 blood ity of strip 00:00: sugar 2 [place] 00 times a Medical day. Branch E11.9. Brand per insurance. blood sugar 2-0 Yes [id number] [facility]07 blood ity of strip 00:00: sugar 2 [place] 00 times a Medical day. Branch E11.9. Brand per insurance. blood sugar 2-0 Yes [id number] [facility]07 blood ity of strip 00:00: sugar 2 [place] 00 times a Medical day. Branch E11.9. Brand per insurance. blood sugar 2021-0 Yes [id number] [facility]07 blood ity of strip 00:00: sugar 2 [place] 00 times a Medical day. Branch E11.9. Brand per insurance. blood sugar 2-0 Yes [id number] [facility]07 blood ity of strip 00:00: sugar 2 [place] 00 times a Medical day. Branch E11.9. Brand per insurance. blood sugar 2021-0 Yes [id number] [facility]07 blood ity of strip 00:00: sugar 2 [place] 00 times a Medical day. Branch E11.9. Brand per insurance. blood sugar 2021-0 Yes [id number] [facility] blood ity of strip 00:00: sugar 2 [place] 00 times a Medical day. Branch E11.9. Brand per insurance. blood sugar 2021-0 Yes [id number] [facility]07 blood ity of strip 00:00: sugar 2 [place] 00 times a Medical day. Branch E11.9. Brand per insurance. blood sugar 2021-0 Yes [id number] [facility]07 blood ity of strip 00:00: sugar 2 [place] 00 times a Medical day. Branch E11.9. Brand per insurance. blood sugar 2021-0 Yes [id number] [facility]07 blood ity of strip 00:00: sugar 2 [place] 00 times a Medical day. [facility] E11[facility]9. Brand per insurance. blood sugar 2021-0 Yes [id number] [facility]07 blood ity of strip 00:00: sugar 2 [place] 00 times a Medical day. Branch E11.9. Brand per insurance. blood sugar 2021-0 Yes [id number] [facility]07 blood ity of strip 00:00: sugar 2 [place] 00 times a Medical day. Branch E11.9. Brand per insurance. blood sugar 2-0 Yes [id number] [facility]07 blood ity of strip 00:00: sugar 2 [place] 00 times a Medical day. Branch E11.9. Brand per insurance. blood sugar 2022-0 Yes [id number] [facility]07 blood ity of strip 00:00: sugar 2 [place] 00 times a Medical day. Branch E11[facility]9. Brand per insurance. blood sugar 2022-0 Yes [id number] [facility]07 blood ity of strip 00:00: sugar 2 [place] 00 times a Medical day. Branch E11.9. Brand per insurance. blood sugar 2021-0 Yes [id number] [facility]07 blood ity of strip 00:00: sugar 2 [place] 00 times a Medical day. Branch E11.9. Brand per insurance. blood sugar 2021-0 Yes [id number] [facility]07 blood ity of strip 00:00: sugar 2 [place] 00 times a Medical day. Branch E11.9. Brand per insurance. blood sugar 2021-0 Yes [id number] [facility]07 blood ity of strip 00:00: sugar 2 [place] 00 times a Medical day. Branch E11.9. Brand per insurance. blood sugar 2021-0 Yes [id number] [facility]07 blood ity of strip 00:00: sugar 2 [place] 00 times a Medical day. Branch E11.9. Brand per insurance. blood sugar 2021-0 Yes [id number] [facility]07 blood ity of strip 00:00: sugar 2 [place] 00 times a Medical day. Branch E11.9. Brand per insurance. blood sugar 2021-0 Yes [id number] [facility]07 blood ity of strip 00:00: sugar 2 [place] 00 times a Medical day. Branch E11.9. Brand per insurance. blood sugar 2021-0 Yes [id number] [facility]07 blood ity of strip 00:00: sugar 2 [place] 00 times a Medical day. Branch E11.9. Brand per insurance. blood sugar 2021-0 Yes [id number] [facility]07 blood ity of strip 00:00: sugar 2 [place] 00 times a Medical day. Branch E11.9. Brand per insurance. blood sugar 2021-0 Yes [id number] [facility]07 blood ity of strip 00:00: sugar 2 [place] 00 times a Medical day. Branch E11.9. Brand per insurance. blood sugar 2021-0 Yes [id number] [facility]07 blood ity of strip 00:00: sugar 2 [place] 00 times a Medical day. Branch E11.9. Brand per insurance. blood sugar 2021-0 Yes [id number] [facility]07 blood ity of strip 00:00: sugar 2 [place] 00 times a Medical day. Branch E11.9. Brand per insurance. blood sugar 2021-0 Yes [id number] [facility]07 blood ity of strip 00:00: sugar 2 [place] 00 times a Medical day. [facility] E11.9. Brand per insurance. blood sugar 2021-0 Yes [id number] [facility]07 blood ity of strip 00:00: sugar 2 [place] 00 times a Medical day. Branch E11.9. Brand per insurance. blood sugar 2021-0 Yes [id number] [facility]07 blood ity of strip 00:00: sugar 2 [place] 00 times a Medical day. Branch E11.9. Brand per insurance. blood sugar 2021-0 Yes [id number] [facility]07 blood ity of strip 00:00: sugar 2 [place] 00 times a Medical day. Branch E11.9. [employer] per insurance. blood sugar 2021-0 Yes [id number] [facility]07 blood ity of strip 00:00: sugar 2 [place] 00 times a Medical day. Branch E11.9. [employer] per insurance. blood sugar 2021-0 Yes [id number] [facility]07 blood ity of strip 00:00: sugar 2 [place] 00 times a Medical day. Branch E11.9. [employer] per insurance. blood sugar 2021-0 Yes [id number] [facility]07 blood ity of strip 00:00: sugar 2 [place] 00 times a Medical day. Branch E11[facility]9. [employer] per insurance. blood sugar 2021-0 2023- No [id number] [facility]07 04-06 blood ity of strip 00:00: 00:00 sugar 2 [place] 00 :00 times a Medical day. Branch E11.9. Brand per insurance. Blood-Gluco 2021-0 Yes [id number] [facility] Meter 3-04 sugars 2 ity of Kit 00:00: times a [place] 00 day. Dx. Medical Code E11.9 [facility] [employer] per Insurance Lancets 2021-0 Yes [id number] [facility] Misc 3-04 blood ity of 00:00: sugar 2 [place] 00 times a Medical day. Branch E11.9. Brand per insurance. Blood-Gluco 2021-0 Yes [id number] [facility] Meter 3-04 sugars 2 ity of Kit 00:00: times a [place] 00 day. Dx. Medical Code E11.9 [facility] [employer] per Insurance Lancets 0 Yes [id number] [facility] Misc 3-04 blood ity of 00:00: sugar 2 [place] 00 times a Medical day. Branch E11.9. Brand per insurance. Blood-Gluco 2021-0 Yes [id number] [facility] Meter 3-04 sugars 2 ity of Kit 00:00: times a [place] 00 day. Dx. Medical Code E11.9 [facility] [employer] per Insurance Lancets 2021-0 Yes [id number] [facility] Misc 3-04 blood ity of 00:00: sugar 2 00 times a Medical day. Branch E11.9. Brand per insurance. Blood-Gluco 2021-0 Yes [id number] [facility] Meter 3-04 sugars 2 ity of Kit 00:00: times a [place] 00 day. Dx. Medical Code E11.9 [facility] [employer] per Insurance Lancets 0 Yes [id number] [facility] Misc 3-04 blood ity of 00:00: sugar 2 [place] 00 times a Medical day. Branch E11.9. Brand per insurance. Blood-Gluco 2021-0 Yes [id number] [facility] Meter 3-04 sugars 2 ity of Kit 00:00: times a [place] 00 day. Dx. Medical Code E11.9 [facility] [employer] per Insurance Lancets 0 Yes [id number] [facility] Misc 3-04 blood ity of 00:00: sugar 2 00 times a Medical day. Branch E11.9. Brand per insurance. Blood-Gluco 2021-0 Yes [id number] [facility] Meter 3-04 sugars 2 ity of Kit 00:00: times a [place] 00 day. Dx. Medical Code E11.9 [facility] [employer] per Insurance Lancets 2021-0 Yes [id number] [facility] Misc 3-04 blood ity of 00:00: sugar 2 00 times a Medical day. Branch E11.9. Brand per insurance. Blood-Gluco 2021-0 Yes [id number] [facility] Meter 3-04 sugars 2 ity of Kit 00:00: times a [place] 00 day. Dx. Medical Code E11.9 [facility] [employer] per Insurance Lancets 2021-0 Yes [id number] [facility] Misc 3-04 blood ity of 00:00: sugar 2 [place] 00 times a Medical day. Branch E11.9. Brand per insurance. Blood-Gluco 2021-0 Yes [id number] [facility] Meter 3-04 sugars 2 ity of Kit 00:00: times a [place] 00 day. Dx. Medical Code E11.9 [facility] [employer] per Insurance Lancets 2021-0 Yes [id number] [facility] Misc 3-04 blood ity of 00:00: sugar 2 [place] 00 times a Medical day. Branch E11.9. Brand per insurance. Blood-Gluco 2021-0 Yes [id number] [facility] Meter 3-04 sugars 2 ity of Kit 00:00: times a [place] 00 day. Dx. Medical Code E11.9 [facility] [employer] per Insurance Lancets 2021-0 Yes [id number] [facility] Misc 3-04 blood ity of 00:00: sugar 2 [place] 00 times a Medical day. Branch E11.9. Brand per insurance. Blood-Gluco 2021-0 Yes [id number] [facility] Meter 3-04 sugars 2 ity of Kit 00:00: times a [place] 00 day. Dx. Medical Code E11.9 [facility] [employer] per Insurance Lancets 0 Yes [id number] [facility] Misc 3-04 blood ity of 00:00: sugar 2 [place] 00 times a Medical day. Branch E11.9. Brand per insurance. Blood-Gluco 2021-0 Yes [id number] [facility] M[facility] 3-04 sugars 2 ity of Kit 00:00: times a [place] 00 day. Dx. Medical Code E11.9 [facility] [employer] per [employer] Lancets 2021-0 Yes [id number] [facility] Misc 3-04 blood ity of 00:00: sugar 2 [place] 00 times a Medical day. Branch E11.9. Brand per insurance. Blood-Gluco 2021-0 Yes [id number] [facility] M[facility] 3-04 sugars 2 ity of Kit 00:00: times a [place] 00 day. Dx. Medical Code E11.9 [facility] [employer] per [employer] Lancets 0 Yes [id number] [facility] Misc 3-04 blood ity of 00:00: sugar 2 [place] 00 times a Medical day. Branch E11.9. Brand per insurance. Blood-Gluco 2022-0 Yes [id number] [facility] M[facility] 3-04 sugars 2 ity of Kit 00:00: times a [place] 00 day. Dx. Medical Code E11.9 [facility] [employer] per [employer] Lancets 0 Yes [id number] [facility] Misc 3-04 blood ity of 00:00: sugar 2 [place] 00 times a Medical day. Branch E11.9. Brand per insurance. Blood-Gluco 2021-0 Yes [id number] [facility] M[facility] 3-04 sugars 2 ity of Kit 00:00: times a [place] 00 day. Dx. Medical Code E11.9 [facility] [employer] per [employer] Lancets 0 Yes [id number] [facility] Misc 3-04 blood ity of 00:00: sugar 2 [place] 00 times a Medical day. Branch E11.9. Brand per insurance. Blood-Gluco 2021-0 Yes [id number] [facility] Meter 3-04 sugars 2 ity of Kit 00:00: times a [place] 00 day. Dx. Medical Code E11.9 [facility] [employer] per [employer] Lancets 0 Yes [id number] [facility] Misc 3-04 blood ity of 00:00: sugar 2 [place] 00 times a Medical day. Branch E11.9. Brand per insurance. Blood-Gluco 2021-0 Yes [id number] [facility] M[facility] 3-04 sugars 2 ity of Kit 00:00: times a [place] 00 day. Dx. Medical Code E11.9 [facility] [employer] per [employer] Lancets 0 Yes [id number] [facility] Misc 3-04 blood ity of 00:00: sugar 2 [place] 00 times a Medical day. Branch E11.9. Brand per insurance. Blood-Gluco 2021-0 Yes [id number] [facility] M[facility] 3-04 sugars 2 ity of Kit 00:00: times a [place] 00 day. Dx. Medical Code E11.9 [facility] [employer] per [employer] Lancets 0 Yes [id number] [facility] Misc 3-04 blood ity of 00:00: sugar 2 [place] 00 times a Medical day. Branch E11.9. Brand per insurance. Blood-Gluco 2021-0 Yes [id number] [facility] M[facility] 3-04 sugars 2 ity of Kit 00:00: times a [place] 00 day. Dx. Medical Code E11.9 [facility] [employer] per [employer] Lancets 2022-0 Yes [id number] [facility] Misc 3-04 blood ity of 00:00: sugar 2 [place] 00 times a Medical day. Branch E11.9. Brand per insurance. Blood-Gluco 2021-0 Yes [id number] [facility] M[facility] 3-04 sugars 2 ity of Kit 00:00: times a [place] 00 day. Dx. Medical Code E11.9 [facility] [employer] per [employer] Lancets 0 Yes [id number] [facility] Misc 3-04 blood ity of 00:00: sugar 2 [place] 00 times a Medical day. Branch E11.9. Brand per insurance. Blood-Gluco 2021-0 Yes [id number] [facility] Meter 3-04 sugars 2 ity of Kit 00:00: times a [place] 00 day. Dx. Medical Code E11.9 [facility] [employer] per [employer] Lancets 0 Yes [id number] [facility] Misc 3-04 blood ity of 00:00: sugar 2 [place] 00 times a Medical day. Branch E11.9. Brand per insurance. Blood-Gluco 2021-0 Yes [id number] [facility] Meter 3-04 sugars 2 ity of Kit 00:00: times a [place] 00 day. Dx. Medical Code E11.9 [facility] [employer] per [employer] Lancets 0 Yes [id number] [facility] Misc 3-04 blood ity of 00:00: sugar 2 [place] 00 times a Medical day. Branch E11.9. Brand per insurance. Blood-Gluco 2021-0 Yes [id number] [facility] Meter 3-04 sugars 2 ity of Kit 00:00: times a [place] 00 day. Dx. Medical Code E11.9 [facility] [employer] per [employer] Lancets 0 Yes [id number] [facility] Misc 3-04 blood ity of 00:00: sugar 2 [place] 00 times a Medical day. Branch E11.9. Brand per insurance. Blood-Gluco 2021-0 Yes [id number] [facility] Meter 3-04 sugars 2 ity of Kit 00:00: times a [place] 00 day. Dx. Medical Code E11.9 Branch [employer] per [employer] Lancets 0 Yes [id number] [facility] Misc 3-04 blood ity of 00:00: sugar 2 [place] 00 times a Medical day. Branch E11.9. Brand per insurance. Blood-Gluco 2021-0 Yes [id number] [facility] Meter 3-04 sugars 2 ity of Kit 00:00: times a [place] 00 day. Dx. Medical Code E11.9 Branch [employer] per [employer] Lancets 2021-0 Yes [id number] [facility] Misc 3-04 blood ity of 00:00: sugar 2 [place] 00 times a Medical day. Branch E11.9. Brand per insurance. Blood-Gluco 2021-0 Yes [id number] [facility] Meter 3-04 sugars 2 ity of Kit 00:00: times a [place] 00 day. Dx. Medical Code E11.9 Branch [employer] per Insurance Lancets 0 Yes [id number] [facility] Misc 3-04 blood ity of 00:00: sugar 2 [place] 00 times a Medical day. Branch E11.9. Brand per insurance. Blood-Gluco 2021-0 Yes [id number] [facility] Meter 3-04 sugars 2 ity of Kit 00:00: times a [place] 00 day. Dx. Medical Code E11.9 Branch [employer] per Insurance Lancets 0 Yes [id number] [facility] Misc 3-04 blood ity of 00:00: sugar 2 [place] 00 times a Medical day. Branch E11.9. Brand per insurance. Blood-Gluco 2021-0 Yes [id number] [facility] Meter 3-04 sugars 2 ity of Kit 00:00: times a [place] 00 day. Dx. Medical Code E11.9 Branch [facility] per [employer] Lancets 2021-0 Yes [id number] [facility] Misc 3-04 blood ity of 00:00: sugar 2 [place] 00 times a Medical day. Branch E11.9. Brand per insurance. Blood-Gluco 2021-0 Yes [id number] [facility] Meter 3-04 sugars 2 ity of Kit 00:00: times a [place] 00 day. Dx. Medical Code E11.9 Branch [employer] per [employer] Lancets 2021-0 Yes [id number] [facility] Misc 3-04 blood ity of 00:00: sugar 2 [place] 00 times a Medical day. Branch E11.9. Brand per insurance. Blood-Gluco 2021-0 Yes [id number] [facility] se Meter 3-04 sugars 2 ity of Kit 00:00: times a [place] 00 day. Dx. Medical Code E11.9 Branch [employer] per [employer] Lancets 0 Yes [id number] [facility] Misc 3-04 blood ity of 00:00: sugar 2 [place] 00 times a Medical day. Branch E11.9. Brand per insurance. Blood-Gluco 2021-0 Yes [id number] [facility] Meter 3-04 sugars 2 ity of Kit 00:00: times a [place] 00 day. Dx. Medical Code E11.9 Branch [facility] per [facility] Lancets 0 Yes [id number] [facility] Misc 3-04 blood ity of 00:00: sugar 2 [place] 00 times a Medical day. Branch E11.9. Brand per insurance. Blood-Gluco 2021-0 Yes [id number] [facility] Meter 3-04 sugars 2 ity of Kit 00:00: times a [place] 00 day. Dx. Medical Code E11.9 Branch [facility] per Insurance Lancets 0 Yes [id number] [facility] Misc 3-04 blood ity of 00:00: sugar 2 [place] 00 times a Medical day. Branch E11.9. Brand per insurance. Blood-Gluco 2021-0 Yes [id number] [facility] se Meter 3-04 sugars 2 ity of Kit 00:00: times a [place] 00 day. Dx. Medical Code E11.9 Branch [facility] per Insurance Lancets 0 Yes [id number] [facility] Misc 3-04 blood ity of 00:00: sugar 2 00 times a Medical day. Branch E11.9. Brand per insurance. Blood-Gluco 2021-0 Yes [id number] [facility] Meter 3-04 sugars 2 ity of Kit 00:00: times a [place] 00 day. Dx. Medical Code E11.9 Branch [facility] per [facility] Lancets 0 Yes [id number] [facility] Misc 3-04 blood ity of 00:00: sugar 2 [place] 00 times a Medical day. Branch E11.9. Brand per insurance. Blood-Gluco 2021-0 Yes [id number] [facility] se Meter 3-04 sugars 2 ity of Kit 00:00: times a [place] 00 day. Dx. Medical Code E11.9 Branch [facility] per [employer] Lancets 0 Yes [id number] [facility] Misc 3-04 blood ity of 00:00: sugar 2 [place] 00 times a Medical day. Branch E11.9. Brand per insurance. Blood-Gluco 2021-0 Yes [id number] [facility] se Meter 3-04 sugars 2 ity of Kit 00:00: times a [place] 00 day. Dx. Medical Code E11.9 Branch [facility] per [employer] Lancets 2021-0 Yes [id number] [facility] Misc 3-04 blood ity of 00:00: sugar 2 00 times a Medical day. Branch E11.9. Brand per insurance. Blood-Gluco 2021-0 Yes [id number] [facility] Meter 3-04 sugars 2 ity of Kit 00:00: times a [place] 00 day. Dx. Medical Code E11.9 Branch [facility] per [employer] Lancets 2021-0 Yes [id number] [facility] Misc 3-04 blood ity of 00:00: sugar 2 [place] 00 times a Medical day. Branch E11.9. Brand per insurance. Blood-Gluco 2021-0 Yes [id number] [facility] Meter 3-04 sugars 2 ity of Kit 00:00: times a [place] 00 day. Dx. Medical Code E11.9 Branch [facility] per Insurance Lancets 0 Yes [id number] [facility] Misc 3-04 blood ity of 00:00: sugar 2 times a Medical day. Branch E11.9. Brand per insurance. Blood-Gluco 2021-0 Yes [id number] [facility] se Meter 3-04 sugars 2 ity of Kit 00:00: times a [place] 00 day. Dx. Medical Code E11.9 Branch [facility] per Insurance Lancets 2021-0 Yes [id number] [facility] Misc 3-04 blood ity of 00:00: sugar 2 times a Medical day. Branch E11.9. Brand per insurance. Blood-Gluco 2021-0 Yes [id number] [facility] se Meter 3-04 sugars 2 ity of Kit 00:00: times a [place] 00 day. Dx. Medical Code E11.9 Branch [facility] per Insurance Lancets 2021-0 Yes [id number] [facility] Misc 3-04 blood ity of 00:00: sugar 2 [place] 00 times a Medical day. Branch E11.9. Brand per insurance. Blood-Gluco 2022-0 Yes [id number] [facility] Meter 3-04 sugars 2 ity of Kit 00:00: times a [place] 00 day. Dx. Medical Code E11.9 Branch [facility] per Insurance Lancets 0 Yes [id number] [facility] Misc 3-04 blood ity of 00:00: sugar 2 [place] 00 times a Medical day. Branch E11.9. Brand per insurance. Blood-Gluco 2021-0 Yes [id number] [facility] se Meter 3-04 sugars 2 ity of Kit 00:00: times a [place] 00 day. Dx. Medical Code E11.9 Branch Brand per Insurance Lancets 0 Yes [id number] [facility] Misc 3-04 blood ity of 00:00: sugar 2 00 times a Medical day. Branch E11.9. Brand per insurance. Blood-Gluco 2021-0 Yes [id number] [facility] se Meter 3-04 sugars 2 ity of Kit 00:00: times a [place] 00 day. Dx. Medical Code E11.9 Branch Brand per Insurance Lancets 0 Yes [id number] [facility] Misc 3-04 blood ity of 00:00: sugar 2 [place] 00 times a Medical day. Branch E11.9. Brand per insurance. Blood-Gluco 2021-0 Yes [id number] [facility] se Meter 3-04 sugars 2 ity of Kit 00:00: times a [place] 00 day. Dx. Medical Code E11.9 Branch Brand per Insurance Lancets 0 Yes [id number] [facility] Misc 3-04 blood ity of 00:00: sugar 2 00 times a Medical day. Branch E11.9. Brand per insurance. Blood-Gluco 2021-0 Yes [id number] [facility] se Meter 3-04 sugars 2 ity of Kit 00:00: times a [place] 00 day. Dx. Medical Code E11.9 Branch Brand per Insurance Lancets 2021-0 Yes [id number] [facility] Misc 3-04 blood ity of 00:00: sugar 2 00 times a Medical day. Branch E11.9. Brand per insurance. Blood-Gluco 2021-0 Yes [id number] [facility] se Meter 3-04 sugars 2 ity of Kit 00:00: times a [place] 00 day. Dx. Medical Code E11.9 Branch Brand per Insurance Lancets 2021-0 Yes [id number] [facility] Misc 3-04 blood ity of 00:00: sugar 2 [place] 00 times a Medical day. Branch E11.9. Brand per insurance. Blood-Gluco 2021-0 Yes [id number] [facility] se Meter 3-04 sugars 2 ity of Kit 00:00: times a [place] 00 day. Dx. Medical Code E11.9 Branch Brand per Insurance Lancets 2021-0 Yes [id number] [facility] Misc 3-04 blood ity of 00:00: sugar 2 [place] 00 times a Medical day. Branch E11.9. Brand per insurance. Blood-Gluco 2021-0 Yes [id number] [facility] se Meter 3-04 sugars 2 ity of Kit 00:00: times a [place] 00 day. Dx. Medical Code E11.9 Branch Brand per Insurance Lancets 0 Yes [id number] [facility] Misc 3-04 blood ity of 00:00: sugar 2 [place] 00 times a Medical day. Branch E11.9. Brand per insurance. Blood-Gluco 2021-0 Yes [id number] [facility] Meter 3-04 sugars 2 ity of Kit 00:00: times a [place] 00 day. Dx. Medical Code E11.9 Branch Brand per Insurance Lancets 0 Yes [id number] Check [facility] Misc 3-04 blood ity of 00:00: sugar 2 [place] 00 times a Medical day. Branch E11.9. Brand per insurance. Blood-Gluco 2021-0 Yes [id number] Check [facility] se Meter 3-04 sugars 2 ity of Kit 00:00: times a [place] 00 day. Dx. Medical Code E11.9 Branch Brand per Insurance Lancets 2021-0 Yes [id number] Check [facility] Misc 3-04 blood ity of 00:00: sugar 2 [place] 00 times a Medical day. Branch E11.9. Brand per insurance. Blood-Gluco 2021-0 Yes [id number] Check [facility] se Meter 3-04 sugars 2 ity of Kit 00:00: times a [place] 00 day. Dx. Medical Code E11.9 Branch Brand per Insurance Lancets 2021-0 Yes [id number] Check [facility] ers Misc 3-04 blood ity of 00:00: sugar 2 [place] 00 times a Medical day. Branch E11.9. Brand per insurance. Blood-Gluco 2021-0 Yes [id number] Check [facility] se Meter 3-04 sugars 2 ity of Kit 00:00: times a [place] 00 day. Dx. Medical Code E11.9 Branch Brand per Insurance Lancets 0 Yes [id number] Check [facility] Misc 3-04 blood ity of 00:00: sugar 2 [place] 00 times a Medical day. Branch E11.9. Brand per insurance. Blood-Gluco 2021-0 Yes [id number] Check [facility] se Meter 3-04 sugars 2 ity of Kit 00:00: times a [place] 00 day. Dx. Medical Code E11.9 Branch Brand per Insurance Lancets Yes [id number] Check [facility] Misc 3-04 blood ity of 00:00: sugar 2 [place] 00 times a Medical day. Branch E11.9. Brand per insurance. Blood-Gluco 2021-0 Yes [id number] Check [facility] se Meter 3-04 sugars 2 ity of Kit 00:00: times a [place] 00 day. Dx. Medical Code E11.9 Branch Brand per Insurance Lancets Yes [id number] Check [facility] Misc 3-04 blood ity of 00:00: sugar 2 [place] 00 times a Medical day. Branch E11.9. Brand per insurance. Blood-Gluco 2021-0 Yes [id number] Check [facility] se Meter 3-04 sugars 2 ity of Kit 00:00: times a [place] 00 day. Dx. Medical Code E11.9 Branch Brand per Insurance Lancets Yes [id number] Check [facility] ers Misc 3-04 blood ity of 00:00: sugar 2 00 times a Medical day. Branch E11.9. Brand per insurance. Blood-Gluco 2021-0 Yes [id number] Check [facility] se Meter 3-04 sugars 2 ity of Kit 00:00: times a [place] 00 day. Dx. Medical Code E11.9 Branch Brand per Insurance Lancets Yes [id number] Check [facility] Misc 3-04 blood ity of 00:00: sugar 2 [place] 00 times a Medical day. Branch E11.9. Brand per insurance. Blood-Gluco 2021-0 Yes [id number] Check [facility] se Meter 3-04 sugars 2 ity of Kit 00:00: times a [place] 00 day. Dx. Medical Code E11.9 Branch Brand per Insurance Lancets 2022-0 Yes [id number] Check [facility] Misc 3-04 blood ity of 00:00: sugar 2 [place] 00 times a Medical day. Branch E11.9. Brand per insurance. Blood-Gluco 2021-0 Yes [id number] Check [facility] se Meter 3-04 sugars 2 ity of Kit 00:00: times a [place] 00 day. Dx. Medical Code E11.9 Branch Brand per Insurance Lancets 2021-0 Yes [id number] Check [facility] Misc 3-04 blood ity of 00:00: sugar 2 [place] 00 times a Medical day. Branch E11.9. Brand per insurance. Blood-Gluco 2021-0 Yes [id number] Check [facility] se Meter 3-04 sugars 2 ity of Kit 00:00: times a [place] 00 day. Dx. Medical Code E11.9 Branch Brand per Insurance Lancets 2021-0 Yes [id number] Check [facility] Misc 3-04 blood ity of 00:00: sugar 2 [place] 00 times a Medical day. Branch E11.9. Brand per insurance. Blood-Gluco 2021-0 Yes [id number] Check [facility] se Meter 3-04 sugars 2 ity of Kit 00:00: times a [place] 00 day. Dx. Medical Code E11.9 Branch Brand per Insurance Lancets 0 Yes [id number] Check [facility] Misc 3-04 blood ity of 00:00: sugar 2 [place] 00 times a Medical day. Branch E11.9. Brand per insurance. Blood-Gluco 2021-0 Yes [id number] Check [facility] se Meter 3-04 sugars 2 ity of Kit 00:00: times a [place] 00 day. Dx. Medical Code E11.9 Branch Brand per Insurance Lancets 2021-0 Yes [id number] Check [facility] Misc 3-04 blood ity of 00:00: sugar 2 [place] 00 times a Medical day. Branch E11.9. Brand per insurance. Blood-Gluco 2021-0 Yes [id number] Check [facility] se Meter 3-04 sugars 2 ity of Kit 00:00: times a [place] 00 day. Dx. Medical Code E11.9 Branch Brand per Insurance Lancets 2021-0 Yes [id number] Check [facility] Misc 3-04 blood ity of 00:00: sugar 2 [place] 00 times a Medical day. Branch E11.9. Brand per insurance. Blood-Gluco 2021-0 Yes [id number] Check [facility] se Meter 3-04 sugars 2 ity of Kit 00:00: times a [place] 00 day. Dx. Medical Code E11.9 Branch Brand per Insurance Lancets 2021-0 Yes [id number] Check [facility] Misc 3-04 blood ity of 00:00: sugar 2 [place] 00 times a Medical day. Branch E11.9. Brand per insurance. Blood-Gluco 2021-0 Yes [id number] Check [facility] se Meter 3-04 sugars 2 ity of Kit 00:00: times a [place] 00 day. Dx. Medical Code E11.9 Branch Brand per Insurance Lancets 0 Yes [id number] Check [facility] Misc 3-04 blood ity of 00:00: sugar 2 [place] 00 times a Medical day. Branch E11.9. Brand per insurance. Blood-Gluco 2021-0 Yes [id number] Check [facility] se Meter 3-04 sugars 2 ity of Kit 00:00: times a [place] 00 day. Dx. Medical Code E11.9 Branch Brand per Insurance Lancets 0 Yes [id number] Check [facility] Misc 3-04 blood ity of 00:00: sugar 2 [place] 00 times a Medical day. Branch E11.9. Brand per insurance. Blood-Gluco 2021-0 Yes [id number] Check [facility] se Meter 3-04 sugars 2 ity of Kit 00:00: times a [place] 00 day. Dx. Medical Code E11.9 Branch Brand per Insurance Lancets 2021-0 Yes [id number] Check [facility] Misc 3-04 blood ity of 00:00: sugar 2 [place] 00 times a Medical day. Branch E11.9. Brand per insurance. Blood-Gluco 2021-0 Yes [id number] Check [facility] se Meter 3-04 sugars 2 ity of Kit 00:00: times a [place] 00 day. Dx. Medical Code E11.9 Branch Brand per Insurance Lancets 2021-0 Yes [id number] Check [facility] Misc 3-04 blood ity of 00:00: sugar 2 [place] 00 times a Medical day. Branch E11.9. Brand per insurance. Blood-Gluco 2021-0 Yes [id number] Check [facility] se Meter 3-04 sugars 2 ity of Kit 00:00: times a [place] 00 day. Dx. Medical Code E11.9 Branch Brand per Insurance Lancets Yes [id number] Check [facility] Misc 3-04 blood ity of 00:00: sugar 2 [place] 00 times a Medical day. Branch E11.9. Brand per insurance. Blood-Gluco 0 Yes [id number] Check [facility] se Meter 3-04 sugars 2 ity of Kit 00:00: times a [place] 00 day. Dx. Medical Code E11.9 Branch Brand per Insurance Lancets Yes [id number] Check [facility] Misc 3-04 blood ity of 00:00: sugar 2 [place] 00 times a Medical day. Branch E11.9. Brand per insurance. Blood-Gluco Yes [id number] Check [facility] se Meter 3-04 sugars 2 ity of Kit 00:00: times a [place] 00 day. Dx. Medical Code E11.9 Branch Brand per Insurance Lancets Yes [id number] Check [facility] Misc 3-04 blood ity of 00:00: sugar 2 [place] 00 times a Medical day. Branch E11.9. Brand per insurance. Blood-Gluco Yes [id number] Check [facility] se Meter 3-04 sugars 2 ity of Kit 00:00: times a [place] 00 day. Dx. Medical Code E11.9 Branch Brand per Insurance Lancets Yes [id number] Check [facility] Misc 3-04 blood ity of 00:00: sugar 2 [place] 00 times a Medical day. Branch E11.9. Brand per insurance. Blood-Gluco Yes [id number] Check [facility] se Meter 3-04 sugars 2 ity of Kit 00:00: times a [place] 00 day. Dx. Medical Code E11.9 Branch Brand per Insurance Lancets Yes [id number] Check [facility] Misc 3-04 blood ity of 00:00: sugar 2 [place] 00 times a Medical day. Branch E11.9. Brand per insurance. Blood-Gluco 2022- No [id number] Check [facility] se Meter 3-04 04-06 sugars 2 ity of Kit 00:00: 00:00 times a [place] 00 :00 day. Dx. Medical Code E11.9 Branch Brand per Insurance Lancets 0 2022- No [id number] Check [facility] vers Misc 3-04 04-06 blood ity of 00:00: 00:00 sugar 2 [place] 00 :00 times a Medical day. Branch E11.9. Brand per insurance. terbinafine 2020- Yes [id number] Apply to [facility] HCL 1 % 0-27 area(s) 2 ity of cream 00:00: (two) [place] 00 times Medical daily. Branch terbinafine 2020- Yes [id number] Apply to [facility] HCL 1 % 0-27 area(s) 2 ity of cream 00:00: (two) [place] 00 times Medical daily. Branch terbinafine 2020- Yes [id number] Apply to [facility] HCL 1 % 0-27 area(s) 2 ity of cream 00:00: (two) [place] 00 times Medical daily. Branch terbinafine 2020- Yes [id number] Apply to [facility] HCL 1 % 0-27 area(s) 2 ity of cream 00:00: (two) [place] 00 times Medical daily. Branch terbinafine 2020- Yes [id number] Apply to [facility] HCL 1 % 0-27 area(s) 2 ity of cream 00:00: (two) [place] 00 times Medical daily. Branch terbinafine 2020- Yes [id number] Apply to [facility] HCL 1 % 0-27 area(s) 2 ity of cream 00:00: (two) [place] 00 times Medical daily. Branch terbinafine 2020- Yes [id number] Apply to [facility] HCL 1 % 0-27 area(s) 2 ity of cream 00:00: (two) [place] 00 times Medical daily. Branch terbinafine 2020- Yes [id number] Apply to [facility] HCL 1 % 0-27 area(s) 2 ity of cream 00:00: (two) [place] 00 times Medical daily. Branch terbinafine 2020- Yes [id number] Apply to [facility] HCL 1 % 0-27 area(s) 2 ity of cream 00:00: (two) [place] 00 times Medical daily. Branch terbinafine 2020- Yes [id number] Apply to [facility] HCL 1 % 0-27 area(s) 2 ity of cream 00:00: (two) [place] 00 times Medical daily. Branch terbinafine 2020- Yes [id number] Apply to [facility] HCL 1 % 0-27 area(s) 2 ity of cream 00:00: (two) [place] 00 times Medical daily. Branch terbinafine 2020-09 Yes [id number] Apply to [facility] HCL 1 % 0-27 area(s) 2 ity of cream 00:00: (two) [place] 00 times Medical daily. Branch terbinafine 2020-09 Yes [id number] Apply to [facility] HCL 1 % 0-27 area(s) 2 ity of cream 00:00: (two) [place] 00 times Medical daily. Branch terbinafine 2020-09 Yes [id number] Apply to [facility] HCL 1 % 0-27 area(s) 2 ity of cream 00:00: (two) [place] 00 times Medical daily. Branch terbinafine 2020-09 Yes [id number] Apply to [facility] HCL 1 % 0-27 area(s) 2 ity of cream 00:00: (two) [place] 00 times Medical daily. Branch terbinafine 2020-09 Yes [id number] Apply to [facility] HCL 1 % 0-27 area(s) 2 ity of cream 00:00: (two) [place] 00 times Medical daily. Branch terbinafine 2020-09 Yes [id number] Apply to [facility] HCL 1 % 0-27 area(s) 2 ity of cream 00:00: (two) [place] 00 times Medical daily. Branch terbinafine 2020-09 Yes [id number] Apply to [facility] HCL 1 % 0-27 area(s) 2 ity of cream 00:00: (two) [place] 00 times Medical daily. Branch terbinafine 2020-09 Yes [id number] Apply to [facility] HCL 1 % 0-27 area(s) 2 ity of cream 00:00: (two) [place] 00 times Medical daily. Branch terbinafine 2020-09 Yes [id number] Apply to [facility] HCL 1 % 0-27 area(s) 2 ity of cream 00:00: (two) [place] 00 times Medical daily. Branch terbinafine 2020-09 Yes [id number] Apply to [facility] HCL 1 % 0-27 area(s) 2 ity of cream 00:00: (two) [place] 00 times Medical daily. Branch terbinafine 2020-09 Yes [id number] Apply to [facility] HCL 1 % 0-27 area(s) 2 ity of cream 00:00: (two) [place] 00 times Medical daily. Branch terbinafine 2020-09 Yes [id number] Apply to [facility] HCL 1 % 0-27 area(s) 2 ity of cream 00:00: (two) [place] 00 times Medical daily. Branch terbinafine 2020-09 Yes [id number] Apply to [facility] HCL 1 % 0-27 area(s) 2 ity of cream 00:00: (two) [place] 00 times Medical daily. Branch terbinafine 2020-09 Yes [id number] Apply to [facility] HCL 1 % 0-27 area(s) 2 ity of cream 00:00: (two) [place] 00 times Medical daily. Branch terbinafine 2020-09 Yes [id number] Apply to [facility] HCL 1 % 0-27 area(s) 2 ity of cream 00:00: (two) [place] 00 times Medical daily. Branch terbinafine 2020-09 Yes [id number] Apply to [facility] HCL 1 % 0-27 area(s) 2 ity of cream 00:00: (two) [place] 00 times Medical daily. Branch terbinafine 2020-09 Yes [id number] Apply to [facility] HCL 1 % 0-27 area(s) 2 ity of cream 00:00: (two) [place] times Medical daily. Branch terbinafine 2020-09 Yes [id number] Apply to [facility] HCL 1 % 0-27 area(s) 2 ity of cream 00:00: (two) [place] times Medical daily. Branch terbinafine 2020-09 Yes [id number] Apply to [facility] HCL 1 % 0-27 area(s) 2 ity of cream 00:00: (two) [place] 00 times Medical daily. Branch terbinafine 2020-09 Yes [id number] Apply to [facility] HCL 1 % 0-27 area(s) 2 ity of cream 00:00: (two) [place] 00 times Medical daily. Branch terbinafine 2020-09 Yes [id number] Apply to [facility] HCL 1 % 0-27 area(s) 2 ity of cream 00:00: (two) [place] 00 times Medical daily. Branch terbinafine 2020- Yes [id number] Apply to [facility] HCL 1 % 0-27 area(s) 2 ity of cream 00:00: (two) [place] 00 times Medical daily. Branch terbinafine 2020- Yes [id number] Apply to [facility] HCL 1 % 0-27 area(s) 2 ity of cream 00:00: (two) [place] 00 times Medical daily. Branch terbinafine 2020- Yes [id number] Apply to [facility] HCL 1 % 0-27 area(s) 2 ity of cream 00:00: (two) [place] 00 times Medical daily. Branch terbinafine 2020- Yes [id number] Apply to [facility] HCL 1 % 0-27 area(s) 2 ity of cream 00:00: (two) [place] 00 times Medical daily. Branch terbinafine 2020- Yes [id number] Apply to [facility] HCL 1 % 0-27 area(s) 2 ity of cream 00:00: (two) [place] 00 times Medical daily. Branch terbinafine 2020- Yes [id number] Apply to [facility] HCL 1 % 0-27 area(s) 2 ity of cream 00:00: (two) [place] 00 times Medical daily. Branch terbinafine 2020- Yes [id number] Apply to [facility] HCL 1 % 0-27 area(s) 2 ity of cream 00:00: (two) [place] 00 times Medical daily. Branch terbinafine 2020- Yes [id number] Apply to [facility] HCL 1 % 0-27 area(s) 2 ity of cream 00:00: (two) [place] times Medical daily. Branch terbinafine 2020- Yes [id number] Apply to [facility] HCL 1 % 0-27 area(s) 2 ity of cream 00:00: (two) [place] 00 times Medical daily. Branch terbinafine 2020- Yes [id number] Apply to [facility] HCL 1 % 0-27 area(s) 2 ity of cream 00:00: (two) [place] 00 times Medical daily. Branch terbinafine 2020- Yes [id number] Apply to [facility] HCL 1 % 0-27 area(s) 2 ity of cream 00:00: (two) [place] 00 times Medical daily. Branch terbinafine 2020- Yes [id number] Apply to [facility] HCL 1 % 0-27 area(s) 2 ity of cream 00:00: (two) [place] 00 times Medical daily. Branch terbinafine 2020- Yes [id number] Apply to [facility] HCL 1 % 0-27 area(s) 2 ity of cream 00:00: (two) [place] times Medical daily. Branch terbinafine 2020- Yes [id number] Apply to [facility] HCL 1 % 0-27 area(s) 2 ity of cream 00:00: (two) [place] times Medical daily. Branch terbinafine 2020- Yes [id number] Apply to [facility] HCL 1 % 0-27 area(s) 2 ity of cream 00:00: (two) [place] 00 times Medical daily. Branch terbinafine 2020- Yes [id number] Apply to [facility] HCL 1 % 0-27 area(s) 2 ity of cream 00:00: (two) [place] times Medical daily. Branch terbinafine 2020- Yes [id number] Apply to [facility] HCL 1 % 0-27 area(s) 2 ity of cream 00:00: (two) [place] times Medical daily. Branch terbinafine 2020- Yes [id number] Apply to [facility] HCL 1 % 0-27 area(s) 2 ity of cream 00:00: (two) [place] times Medical daily. Branch terbinafine 2020- Yes [id number] Apply to [facility] HCL 1 % 0-27 area(s) 2 ity of cream 00:00: (two) [place] times Medical daily. Branch terbinafine 2020- Yes [id number] Apply to [facility] HCL 1 % 0-27 area(s) 2 ity of cream 00:00: (two) [place] times Medical daily. Branch terbinafine 2020- Yes [id number] Apply to [facility] HCL 1 % 0-27 area(s) 2 ity of cream 00:00: (two) [place] times Medical daily. Branch terbinafine 2020- Yes [id number] Apply to [facility] HCL 1 % 0-27 area(s) 2 ity of cream 00:00: (two) [place] times Medical daily. Branch terbinafine 2020- Yes [id number] Apply to [facility] HCL 1 % 0-27 area(s) 2 ity of cream 00:00: (two) [place] 00 times Medical daily. Branch terbinafine 2020- Yes [id number] Apply to [facility] HCL 1 % 0-27 area(s) 2 ity of cream 00:00: (two) [place] times Medical daily. Branch terbinafine 2020- Yes [id number] Apply to [facility] HCL 1 % 0-27 area(s) 2 ity of cream 00:00: (two) [place] times Medical daily. Branch terbinafine 2020- Yes [id number] Apply to [facility] HCL 1 % 0-27 area(s) 2 ity of cream 00:00: (two) [place] 00 times Medical daily. Branch terbinafine 2020- Yes [id number] Apply to [facility] HCL 1 % 0-27 area(s) 2 ity of cream 00:00: (two) [place] times Medical daily. Branch terbinafine 2020- Yes [id number] Apply to [facility] HCL 1 % 0-27 area(s) 2 ity of cream 00:00: (two) [place] times Medical daily. Branch terbinafine 2020- Yes [id number] Apply to [facility] HCL 1 % 0-27 area(s) 2 ity of cream 00:00: (two) [place] times Medical daily. Branch terbinafine 2020- Yes [id number] Apply to [facility] HCL 1 % 0-27 area(s) 2 ity of cream 00:00: (two) [place] times Medical daily. Branch terbinafine 2020- Yes [id number] Apply to [facility] HCL 1 % 0-27 area(s) 2 ity of cream 00:00: (two) [place] times Medical daily. Branch terbinafine 2020- Yes [id number] Apply to [facility] HCL 1 % 0-27 area(s) 2 ity of cream 00:00: (two) [place] times Medical daily. Branch terbinafine 2020-1 Yes [id number] Apply to [facility] HCL 1 % 0-27 area(s) 2 ity of cream 00:00: (two) [place] 00 times Medical daily. Branch terbinafine 2020- Yes [id number] Apply to [facility] HCL 1 % 0-27 area(s) 2 ity of cream 00:00: (two) [place] 00 times Medical daily. Branch terbinafine 2020-09 Yes [id number] Apply to [facility] HCL 1 % 0-27 area(s) 2 ity of cream 00:00: (two) [place] 00 times Medical daily. Branch terbinafine 2020- Yes [id number] Apply to [facility] HCL 1 % 0-27 area(s) 2 ity of cream 00:00: (two) [place] times Medical daily. Branch terbinafine 2020- Yes [id number] Apply to [facility] HCL 1 % 0-27 area(s) 2 ity of cream 00:00: (two) [place] 00 times Medical daily. Branch terbinafine 2020- Yes [id number] Apply to [facility] HCL 1 % 0-27 area(s) 2 ity of cream 00:00: (two) [place] times Medical daily. Branch terbinafine 2020- Yes [id number] Apply to [facility] HCL 1 % 0-27 area(s) 2 ity of cream 00:00: (two) [place] times Medical daily. Branch terbinafine 2020-09 Yes [id number] Apply to [facility] HCL 1 % 0-27 area(s) 2 ity of cream 00:00: (two) [place] 00 times Medical daily. Branch terbinafine 2020-09 Yes [id number] Apply to [facility] HCL 1 % 0-27 area(s) 2 ity of cream 00:00: (two) [place] times Medical daily. Branch terbinafine 2020-09 Yes [id number] Apply to [facility] HCL 1 % 0-27 area(s) 2 ity of cream 00:00: (two) [place] times Medical daily. Branch terbinafine 2020- Yes [id number] Apply to [facility] HCL 1 % 0-27 area(s) 2 ity of cream 00:00: (two) [place] 00 times Medical daily. Branch terbinafine 2020- Yes [id number] Apply to [facility] HCL 1 % 0-27 area(s) 2 ity of cream 00:00: (two) [place] 00 times Medical daily. Branch terbinafine 2020- Yes [id number] Apply to [facility] HCL 1 % 0-27 area(s) 2 ity of cream 00:00: (two) [place] 00 times Medical daily. Branch terbinafine 2020-09 Yes [id number] Apply to [facility] HCL 1 % 0-27 area(s) 2 ity of cream 00:00: (two) [place] 00 times Medical daily. Branch terbinafine 2020-09 Yes [id number] Apply to [facility] HCL 1 % 0-27 area(s) 2 ity of cream 00:00: (two) [place] 00 times Medical daily. Branch terbinafine 2020-09 Yes [id number] Apply to [facility] HCL 1 % 0-27 [...] Medical DAILY Branch NEEDED nystatin 2020-0 Yes [id number] Apply to [facility] 100,000 7-19 area(s) 2 ity of unit/gram 00:00: (two) [place] ointment 00 times Medical daily. Branch nystatin 2020-0 Yes [id number] Apply to [facility] 100,000 7-19 area(s) 2 ity of unit/gram 00:00: (two) [place] ointment 00 times Medical daily. Branch nystatin 2021-0 Yes [id number] Apply to [facility] 100,000 7-19 area(s) 2 ity of unit/gram 00:00: (two) [place] ointment 00 times Medical daily. Branch nystatin 2021-0 Yes [id number] Apply to [facility] 100,000 7-19 area(s) 2 ity of unit/gram 00:00: (two) [place] ointment 00 times Medical daily. Branch nystatin 2021-0 Yes [id number] Apply to [facility] 100,000 7-19 area(s) 2 ity of unit/gram 00:00: (two) [place] ointment 00 times Medical daily. Branch nystatin 2021-0 Yes [id number] Apply to [facility] 100,000 7-19 area(s) 2 ity of unit/gram 00:00: (two) [place] ointment 00 times Medical daily. Branch nystatin 2021-0 Yes [id number] Apply to [facility] 100,000 7-19 area(s) 2 ity of unit/gram 00:00: (two) [place] ointment 00 times Medical daily. Branch nystatin 1-0 Yes [id number] Apply to [facility] 100,000 7-19 area(s) 2 ity of unit/gram 00:00: (two) [place] ointment 00 times Medical daily. Branch nystatin 2021-0 Yes [id number] Apply to [facility] 100,000 7-19 area(s) 2 ity of unit/gram 00:00: (two) [place] ointment 00 times Medical daily. Branch nystatin 2021-0 Yes [id number] Apply to [facility] 100,000 7-19 area(s) 2 ity of unit/gram 00:00: (two) [place] ointment 00 times Medical daily. Branch nystatin 2021-0 Yes [id number] Apply to [facility] 100,000 7-19 area(s) 2 ity of unit/gram 00:00: (two) [place] ointment 00 times Medical daily. Branch nystatin 2021-0 Yes [id number] Apply to [facility] 100,000 7-19 area(s) 2 ity of unit/gram 00:00: (two) [place] ointment 00 times Medical daily. Branch nystatin 2021-0 Yes [id number] Apply to [facility] 100,000 7-19 area(s) 2 ity of unit/gram 00:00: (two) [place] ointment 00 times Medical daily. Branch nystatin 2021-0 Yes [id number] Apply to [facility] 100,000 7-19 area(s) 2 ity of unit/gram 00:00: (two) [place] ointment 00 times Medical daily. Branch nystatin 2021-0 Yes [id number] Apply to [facility] 100,000 7-19 area(s) 2 ity of unit/gram 00:00: (two) [place] ointment 00 times Medical daily. Branch nystatin 2021-0 Yes [id number] Apply to [facility] 100,000 7-19 area(s) 2 ity of unit/gram 00:00: (two) [place] ointment 00 times Medical daily. Branch nystatin 2021-0 Yes [id number] Apply to [facility] 100,000 7-19 area(s) 2 ity of unit/gram 00:00: (two) [place] ointment 00 times Medical daily. Branch nystatin 1-0 Yes [id number] Apply to [facility] 100,000 7-19 area(s) 2 ity of unit/gram 00:00: (two) [place] ointment 00 times Medical daily. Branch nystatin 2021-0 Yes [id number] Apply to [facility] 100,000 7-19 area(s) 2 ity of unit/gram 00:00: (two) [place] ointment 00 times Medical daily. Branch nystatin 2021-0 Yes [id number] Apply to [facility] 100,000 7-19 area(s) 2 ity of unit/gram 00:00: (two) [place] ointment 00 times Medical daily. Branch nystatin 2021-0 Yes [id number] Apply to [facility] 100,000 7-19 area(s) 2 ity of unit/gram 00:00: (two) [place] ointment 00 times Medical daily. Branch nystatin 2021-0 Yes [id number] Apply to [facility] 100,000 7-19 area(s) 2 ity of unit/gram 00:00: (two) [place] ointment 00 times Medical daily. Branch nystatin 2021-0 Yes [id number] Apply to [facility] 100,000 7-19 area(s) 2 ity of unit/gram 00:00: (two) [place] ointment 00 times Medical daily. Branch nystatin 2021-0 Yes [id number] Apply to [facility] 100,000 7-19 area(s) 2 ity of unit/gram 00:00: (two) [place] ointment 00 times Medical daily. Branch nystatin 2021-0 Yes [id number] Apply to [facility] 100,000 7-19 area(s) 2 ity of unit/gram 00:00: (two) [place] ointment 00 times Medical daily. Branch nystatin 2021-0 Yes [id number] Apply to [facility] 100,000 7-19 area(s) 2 ity of unit/gram 00:00: (two) [place] ointment 00 times Medical daily. Branch nystatin 2021-0 Yes [id number] Apply to [facility] 100,000 7-19 area(s) 2 ity of unit/gram 00:00: (two) [place] ointment 00 times Medical daily. Branch nystatin 1-0 Yes [id number] Apply to [facility] 100,000 7-19 area(s) 2 ity of unit/gram 00:00: (two) [place] ointment 00 times Medical daily. Branch nystatin 1-0 Yes [id number] Apply to [facility] 100,000 7-19 area(s) 2 ity of unit/gram 00:00: (two) [place] ointment 00 times Medical daily. Branch nystatin 2021-0 Yes [id number] Apply to [facility] 100,000 7-19 area(s) 2 ity of unit/gram 00:00: (two) [place] ointment 00 times Medical daily. Branch nystatin 1-0 Yes [id number] Apply to [facility] 100,000 7-19 area(s) 2 ity of unit/gram 00:00: (two) [place] ointment 00 times Medical daily. Branch nystatin 2021-0 Yes [id number] Apply to [facility] 100,000 7-19 area(s) 2 ity of unit/gram 00:00: (two) [place] ointment 00 times Medical daily. Branch nystatin 2021-0 Yes [id number] Apply to [facility] 100,000 7-19 area(s) 2 ity of unit/gram 00:00: (two) [place] ointment 00 times Medical daily. Branch nystatin 2021-0 Yes [id number] Apply to [facility] 100,000 7-19 area(s) 2 ity of unit/gram 00:00: (two) [place] ointment 00 times Medical daily. Branch nystatin 2021-0 Yes [id number] Apply to [facility] 100,000 7-19 area(s) 2 ity of unit/gram 00:00: (two) [place] ointment 00 times Medical daily. Branch nystatin 2021-0 Yes [id number] Apply to [facility] 100,000 7-19 area(s) 2 ity of unit/gram 00:00: (two) [place] ointment 00 times Medical daily. Branch nystatin 2021-0 Yes [id number] Apply to [facility] 100,000 7-19 area(s) 2 ity of unit/gram 00:00: (two) [place] ointment 00 times Medical daily. Branch nystatin 2021-0 Yes [id number] Apply to [facility] 100,000 7-19 area(s) 2 ity of unit/gram 00:00: (two) [place] ointment 00 times Medical daily. Branch nystatin 2021-0 Yes [id number] Apply to [facility] 100,000 7-19 area(s) 2 ity of unit/gram 00:00: (two) [place] ointment 00 times Medical daily. Branch nystatin 1-0 Yes [id number] Apply to [facility] 100,000 7-19 area(s) 2 ity of unit/gram 00:00: (two) [place] ointment 00 times Medical daily. Branch nystatin 2021-0 Yes [id number] Apply to [facility] 100,000 7-19 area(s) 2 ity of unit/gram 00:00: (two) [place] ointment 00 times Medical daily. Branch nystatin 2021-0 Yes [id number] Apply to [facility] 100,000 7-19 area(s) 2 ity of unit/gram 00:00: (two) [place] ointment 00 times Medical daily. Branch nystatin 2021-0 Yes [id number] Apply to [facility] 100,000 7-19 area(s) 2 ity of unit/gram 00:00: (two) [place] ointment 00 times Medical daily. Branch nystatin 2021-0 Yes [id number] Apply to [facility] 100,000 7-19 area(s) 2 ity of unit/gram 00:00: (two) [place] ointment 00 times Medical daily. Branch nystatin 1-0 Yes [id number] Apply to [facility] 100,000 7-19 area(s) 2 ity of unit/gram 00:00: (two) [place] ointment 00 times Medical daily. Branch nystatin 2021-0 Yes [id number] Apply to [facility] 100,000 7-19 area(s) 2 ity of unit/gram 00:00: (two) [place] ointment 00 times Medical daily. Branch nystatin 2021-0 Yes [id number] Apply to [facility] 100,000 7-19 area(s) 2 ity of unit/gram 00:00: (two) [place] ointment 00 times Medical daily. Branch nystatin 1-0 Yes [id number] Apply to [facility] 100,000 7-19 area(s) 2 ity of unit/gram 00:00: (two) [place] ointment 00 times Medical daily. Branch nystatin 1-0 Yes [id number] Apply to [facility] 100,000 7-19 area(s) 2 ity of unit/gram 00:00: (two) [place] ointment 00 times Medical daily. Branch nystatin 1-0 Yes [id number] Apply to [facility] 100,000 7-19 area(s) 2 ity of unit/gram 00:00: (two) [place] ointment 00 times Medical daily. Branch nystatin 1-0 Yes [id number] Apply to [facility] 100,000 7-19 area(s) 2 ity of unit/gram 00:00: (two) [place] ointment 00 times Medical daily. Branch nystatin 2021-0 Yes [id number] Apply to [facility] 100,000 7-19 area(s) 2 ity of unit/gram 00:00: (two) [place] ointment 00 times Medical daily. Branch nystatin 2021-0 Yes [id number] Apply to [facility] 100,000 7-19 area(s) 2 ity of unit/gram 00:00: (two) [place] ointment 00 times Medical daily. Branch nystatin 2021-0 Yes [id number] Apply to [facility] 100,000 7-19 area(s) 2 ity of unit/gram 00:00: (two) [place] ointment 00 times Medical daily. Branch nystatin 2021-0 Yes [id number] Apply to [facility] 100,000 7-19 area(s) 2 ity of unit/gram 00:00: (two) [place] ointment 00 times Medical daily. Branch nystatin 2021-0 Yes [id number] Apply to [facility] 100,000 7-19 area(s) 2 ity of unit/gram 00:00: (two) [place] ointment 00 times Medical daily. Branch nystatin 2021-0 Yes [id number] Apply to [facility] 100,000 7-19 area(s) 2 ity of unit/gram 00:00: (two) [place] ointment 00 times Medical daily. Branch nystatin 2021-0 Yes [id number] Apply to [facility] 100,000 7-19 area(s) 2 ity of unit/gram 00:00: (two) [place] ointment 00 times Medical daily. Branch nystatin 2021-0 Yes [id number] Apply to [facility] 100,000 7-19 area(s) 2 ity of unit/gram 00:00: (two) [place] ointment 00 times Medical daily. Branch nystatin 1-0 Yes [id number] Apply to [facility] 100,000 7-19 area(s) 2 ity of unit/gram 00:00: (two) [place] ointment 00 times Medical daily. Branch nystatin 2021-0 Yes [id number] Apply to [facility] 100,000 7-19 area(s) 2 ity of unit/gram 00:00: (two) [place] ointment 00 times Medical daily. Branch nystatin 2021-0 Yes [id number] Apply to [facility] 100,000 7-19 area(s) 2 ity of unit/gram 00:00: (two) [place] ointment 00 times Medical daily. Branch nystatin 2021-0 Yes [id number] Apply to [facility] 100,000 7-19 area(s) 2 ity of unit/gram 00:00: (two) [place] ointment 00 times Medical daily. Branch nystatin 2021-0 Yes [id number] Apply to [facility] 100,000 7-19 area(s) 2 ity of unit/gram 00:00: (two) [place] ointment 00 times Medical daily. Branch nystatin 2021-0 Yes [id number] Apply to [facility] 100,000 7-19 area(s) 2 ity of unit/gram 00:00: (two) [place] ointment 00 times Medical daily. Branch nystatin 2021-0 Yes [id number] Apply to [facility] 100,000 7-19 area(s) 2 ity of unit/gram 00:00: (two) [place] ointment 00 times Medical daily. Branch nystatin 2021-0 Yes [id number] Apply to [facility] 100,000 7-19 area(s) 2 ity of unit/gram 00:00: (two) [place] ointment 00 times Medical daily. Branch nystatin 2021-0 Yes [id number] Apply to [facility] 100,000 7-19 area(s) 2 ity of unit/gram 00:00: (two) [place] ointment 00 times Medical daily. Branch nystatin 2021-0 Yes [id number] Apply to [facility] 100,000 7-19 area(s) 2 ity of unit/gram 00:00: (two) [place] ointment 00 times Medical daily. Branch nystatin 1-0 Yes [id number] Apply to [facility] 100,000 7-19 area(s) 2 ity of unit/gram 00:00: (two) [place] ointment 00 times Medical daily. Branch nystatin 1-0 Yes [id number] Apply to [facility] 100,000 7-19 area(s) 2 ity of unit/gram 00:00: (two) [place] ointment 00 times Medical daily. Branch nystatin 2021-0 Yes [id number] Apply to [facility] 100,000 7-19 area(s) 2 ity of unit/gram 00:00: (two) [place] ointment 00 times Medical daily. Branch nystatin 2021-0 Yes [id number] Apply to [facility] 100,000 7-19 area(s) 2 ity of unit/gram 00:00: (two) [place] ointment 00 times Medical daily. Branch nystatin 2021-0 Yes [id number] Apply to [facility] 100,000 7-19 area(s) 2 ity of unit/gram 00:00: (two) [place] ointment 00 times Medical daily. Branch nystatin 2021-0 Yes [id number] Apply to [facility] 100,000 7-19 area(s) 2 ity of unit/gram 00:00: (two) [place] ointment 00 times Medical daily. Branch nystatin 1-0 Yes [id number] Apply to [facility] 100,000 7-19 area(s) 2 ity of unit/gram 00:00: (two) [place] ointment 00 times Medical daily. Branch nystatin 2020-0 Yes [id number] Apply to [facility] 100,000 7-19 area(s) 2 ity of unit/gram 00:00: (two) [place] ointment 00 times Medical daily. Branch nystatin 2020-0 Yes [id number] Apply to [facility] 100,000 7-19 area(s) 2 ity of unit/gram 00:00: (two) [place] ointment 00 times Medical daily. Branch nystatin 2020-0 Yes [id number] Apply to [facility] 100,000 7-19 area(s) 2 ity of unit/gram 00:00: (two) [place] ointment 00 times Medical daily. Branch nystatin 2020-0 Yes [id number] Apply to [facility] 100,000 7-19 area(s) 2 ity of unit/gram 00:00: (two) [place] ointment 00 times Medical daily. Branch Alcohol 2020-0 Yes [id number] Use to [facility] vers Swabs 7-28 test blood ity of (ALCOHOL 00:00: sugar 4 [place] PREP PADS) 00 times Medical PadM daily Branch Alcohol 2020-0 Yes [id number] Use to [facility] vers Swabs 7-28 test blood ity of (ALCOHOL 00:00: sugar 4 [place] PREP PADS) 00 times Medical PadM daily Branch Alcohol 2020-0 Yes [id number] Use to [facility] vers Swabs 7-28 test blood ity of (ALCOHOL 00:00: sugar 4 [place] PREP PADS) 00 times Medical PadM daily Branch Alcohol 2020-0 Yes [id number] Use to [facility] vers Swabs 7-28 test blood ity of (ALCOHOL 00:00: sugar 4 [place] PREP PADS) 00 times Medical PadM daily Branch Alcohol 2020-0 Yes [id number] Use to [facility] vers Swabs 7-28 test blood ity of (ALCOHOL 00:00: sugar 4 [place] PREP PADS) 00 times Medical PadM daily Branch Alcohol 2020-0 Yes [id number] Use to [facility] vers Swabs 7-28 test blood ity of (ALCOHOL 00:00: sugar 4 [place] PREP PADS) 00 times Medical PadM daily Branch Alcohol 2020-0 Yes [id number] Use to [facility] vers Swabs 7-28 test blood ity of (ALCOHOL 00:00: sugar 4 [place] PREP PADS) 00 times Medical PadM daily Branch Alcohol 2020-0 Yes [id number] Use to [facility] vers Swabs 7-28 test blood ity of (ALCOHOL 00:00: sugar 4 [place] PREP PADS) 00 times Medical PadM daily Branch Alcohol 2020-0 Yes [id number] Use to [facility] vers Swabs 7-28 test blood ity of (ALCOHOL 00:00: sugar 4 [place] PREP PADS) 00 times Medical PadM daily Branch Alcohol 2020-0 Yes [id number] Use to [facility] vers Swabs 7-28 test blood ity of (ALCOHOL 00:00: sugar 4 [place] PREP PADS) 00 times Medical PadM daily Branch Alcohol 2020-0 Yes [id number] Use to [facility] vers Swabs 7-28 test blood ity of (ALCOHOL 00:00: sugar 4 [place] PREP PADS) 00 times Medical PadM daily Branch Alcohol 2020-0 Yes [id number] Use to [facility] vers Swabs 7-28 test blood ity of (ALCOHOL 00:00: sugar 4 [place] PREP PADS) 00 times Medical PadM daily Branch Alcohol 2020-0 Yes [id number] Use to [facility] vers Swabs 7-28 test blood ity of (ALCOHOL 00:00: sugar 4 [place] PREP PADS) 00 times Medical PadM daily Branch Alcohol 2020-0 Yes [id number] Use to [facility] vers Swabs 7-28 test blood ity of (ALCOHOL 00:00: sugar 4 [place] PREP PADS) 00 times Medical PadM daily Branch Alcohol 2020-0 Yes [id number] Use to [facility] vers Swabs 7-28 test blood ity of (ALCOHOL 00:00: sugar 4 [place] PREP PADS) 00 times Medical PadM daily Branch Alcohol 2020-0 Yes [id number] Use to [facility] vers Swabs 7-28 test blood ity of (ALCOHOL 00:00: sugar 4 [place] PREP PADS) 00 times Medical PadM daily Branch Alcohol 2020-0 Yes [id number] Use to [facility] vers Swabs 7-28 test blood ity of (ALCOHOL 00:00: sugar 4 [place] PREP PADS) 00 times Medical PadM daily Branch Alcohol 2020-0 Yes [id number] Use to [facility] vers Swabs 7-28 test blood ity of (ALCOHOL 00:00: sugar 4 [place] PREP PADS) 00 times Medical PadM daily Branch Alcohol 2020-0 Yes [id number] Use to [facility] vers Swabs 7-28 test blood ity of (ALCOHOL 00:00: sugar 4 [place] PREP PADS) 00 times Medical PadM daily Branch Alcohol 2020-0 Yes [id number] Use to [facility] vers Swabs 7-28 test blood ity of (ALCOHOL 00:00: sugar 4 [place] PREP PADS) 00 times Medical PadM daily Branch Alcohol 2020-0 Yes [id number] Use to [facility] vers Swabs 7-28 test blood ity of (ALCOHOL 00:00: sugar 4 [place] PREP PADS) 00 times Medical PadM daily Branch Alcohol 2020-0 Yes [id number] Use to [facility] vers Swabs 7-28 test blood ity of (ALCOHOL 00:00: sugar 4 [place] PREP PADS) 00 times Medical PadM daily Branch Alcohol 2020-0 Yes [id number] Use to [facility] vers Swabs 7-28 test blood ity of (ALCOHOL 00:00: sugar 4 [place] PREP PADS) 00 times Medical PadM daily Branch Alcohol 2020-0 Yes [id number] Use to [facility] vers Swabs 7-28 test blood ity of (ALCOHOL 00:00: sugar 4 [place] PREP PADS) 00 times Medical PadM daily Branch Alcohol 2020-0 Yes [id number] Use to [facility] vers Swabs 7-28 test blood ity of (ALCOHOL 00:00: sugar 4 [place] PREP PADS) 00 times Medical PadM daily Branch Alcohol 2020-0 Yes [id number] Use to [facility] vers Swabs 7-28 test blood ity of (ALCOHOL 00:00: sugar 4 [place] PREP PADS) 00 times Medical PadM daily Branch Alcohol 2020-0 Yes [id number] Use to [facility] vers Swabs 7-28 test blood ity of (ALCOHOL 00:00: sugar 4 [place] PREP PADS) 00 times Medical PadM daily Branch Alcohol 2020-0 Yes [id number] Use to [facility] vers Swabs 7-28 test blood ity of (ALCOHOL 00:00: sugar 4 [place] PREP PADS) 00 times Medical PadM daily Branch Alcohol 2020-0 Yes [id number] Use to [facility] vers Swabs 7-28 test blood ity of (ALCOHOL 00:00: sugar 4 [place] PREP PADS) 00 times Medical PadM daily Branch Alcohol 2020-0 Yes [id number] Use to [facility] vers Swabs 7-28 test blood ity of (ALCOHOL 00:00: sugar 4 [place] PREP PADS) 00 times Medical PadM daily Branch Alcohol 2020-0 Yes [id number] Use to [facility] vers Swabs 7-28 test blood ity of (ALCOHOL 00:00: sugar 4 [place] PREP PADS) 00 times Medical PadM daily Branch Alcohol 2020-0 Yes [id number] Use to [facility] vers Swabs 7-28 test blood ity of (ALCOHOL 00:00: sugar 4 [place] PREP PADS) 00 times Medical PadM daily Branch Alcohol 2020-0 Yes [id number] Use to [facility] vers Swabs 7-28 test blood ity of (ALCOHOL 00:00: sugar 4 [place] PREP PADS) 00 times Medical PadM daily Branch Alcohol 2020-0 Yes [id number] Use to [facility] vers Swabs 7-28 test blood ity of (ALCOHOL 00:00: sugar 4 [place] PREP PADS) 00 times Medical PadM daily Branch Alcohol 2020-0 Yes [id number] Use to [facility] vers Swabs 7-28 test blood ity of (ALCOHOL 00:00: sugar 4 [place] PREP PADS) 00 times Medical PadM daily Branch Alcohol 2020-0 Yes [id number] Use to [facility] vers Swabs 7-28 test blood ity of (ALCOHOL 00:00: sugar 4 [place] PREP PADS) 00 times Medical PadM daily Branch Alcohol 2020-0 Yes [id number] Use to [facility] vers Swabs 7-28 test blood ity of (ALCOHOL 00:00: sugar 4 [place] PREP PADS) 00 times Medical PadM daily Branch Alcohol 2020-0 Yes [id number] Use to [facility] vers Swabs 7-28 test blood ity of (ALCOHOL 00:00: sugar 4 [place] PREP PADS) 00 times Medical PadM daily Branch Alcohol 2020-0 Yes [id number] Use to [facility] vers Swabs 7-28 test blood ity of (ALCOHOL 00:00: sugar 4 [place] PREP PADS) 00 times Medical PadM daily Branch Alcohol 2020-0 Yes [id number] Use to [facility] vers Swabs 7-28 test blood ity of (ALCOHOL 00:00: sugar 4 [place] PREP PADS) 00 times Medical PadM daily Branch Alcohol 2020-0 Yes [id number] Use to [facility] vers Swabs 7-28 test blood ity of (ALCOHOL 00:00: sugar 4 [place] PREP PADS) 00 times Medical PadM daily Branch Alcohol 2020-0 Yes [id number] Use to [facility] vers Swabs 7-28 test blood ity of (ALCOHOL 00:00: sugar 4 [place] PREP PADS) 00 times Medical PadM daily Branch Alcohol 2020-0 Yes [id number] Use to [facility] vers Swabs 7-28 test blood ity of (ALCOHOL 00:00: sugar 4 [place] PREP PADS) 00 times Medical PadM daily Branch Alcohol 2020-0 Yes [id number] Use to [facility] vers Swabs 7-28 test blood ity of (ALCOHOL 00:00: sugar 4 [place] PREP PADS) 00 times Medical PadM daily Branch Alcohol 2020-0 Yes [id number] Use to [facility] vers Swabs 7-28 test blood ity of (ALCOHOL 00:00: sugar 4 [place] PREP PADS) 00 times Medical PadM daily Branch Alcohol 2020-0 Yes [id number] Use to [facility] vers Swabs 7-28 test blood ity of (ALCOHOL 00:00: sugar 4 [place] PREP PADS) 00 times Medical PadM daily Branch Alcohol 2020-0 Yes [id number] Use to [facility] vers Swabs 7-28 test blood ity of (ALCOHOL 00:00: sugar 4 [place] PREP PADS) 00 times Medical PadM daily Branch Alcohol 2020-0 Yes [id number] Use to [facility] vers Swabs 7-28 test blood ity of (ALCOHOL 00:00: sugar 4 [place] PREP PADS) 00 times Medical PadM daily Branch Alcohol 2020-0 Yes [id number] Use to [facility] vers Swabs 7-28 test blood ity of (ALCOHOL 00:00: sugar 4 [place] PREP PADS) 00 times Medical PadM daily Branch Alcohol 2020-0 Yes [id number] Use to [facility] vers Swabs 7-28 test blood ity of (ALCOHOL 00:00: sugar 4 [place] PREP PADS) 00 times Medical PadM daily Branch Alcohol 2020-0 Yes [id number] Use to [facility] vers Swabs 7-28 test blood ity of (ALCOHOL 00:00: sugar 4 [place] PREP PADS) 00 times Medical PadM daily Branch Alcohol 2020-0 Yes [id number] Use to [facility] vers Swabs 7-28 test blood ity of (ALCOHOL 00:00: sugar 4 [place] PREP PADS) 00 times Medical PadM daily Branch Alcohol 2020-0 Yes [id number] Use to [facility] vers Swabs 7-28 test blood ity of (ALCOHOL 00:00: sugar 4 [place] PREP PADS) 00 times Medical PadM daily Branch Alcohol 2020-0 Yes [id number] Use to [facility] vers Swabs 7-28 test blood ity of (ALCOHOL 00:00: sugar 4 [place] PREP PADS) 00 times Medical PadM daily Branch Alcohol 2020-0 Yes [id number] Use to [facility] vers Swabs 7-28 test blood ity of (ALCOHOL 00:00: sugar 4 [place] PREP PADS) 00 times Medical PadM daily Branch Alcohol 2020-0 Yes [id number] Use to [facility] vers Swabs 7-28 test blood ity of (ALCOHOL 00:00: sugar 4 [place] PREP PADS) 00 times Medical PadM daily Branch Alcohol 2020-0 Yes [id number] Use to [facility] vers Swabs 7-28 test blood ity of (ALCOHOL 00:00: sugar 4 [place] PREP PADS) 00 times Medical PadM daily Branch Alcohol 2020-0 Yes [id number] Use to [facility] vers Swabs 7-28 test blood ity of (ALCOHOL 00:00: sugar 4 [place] PREP PADS) 00 times Medical PadM daily Branch Alcohol 2020-0 Yes [id number] Use to [facility] vers Swabs 7-28 test blood ity of (ALCOHOL 00:00: sugar 4 [place] PREP PADS) 00 times Medical PadM daily Branch Alcohol 2020-0 Yes [id number] Use to [facility] vers Swabs 7-28 test blood ity of (ALCOHOL 00:00: sugar 4 [place] PREP PADS) 00 times Medical PadM daily Branch Alcohol 2020-0 Yes [id number] Use to [facility] vers Swabs 7-28 test blood ity of (ALCOHOL 00:00: sugar 4 [place] PREP PADS) 00 times Medical PadM daily Branch Alcohol 2020-0 Yes [id number] Use to [facility] vers Swabs 7-28 test blood ity of (ALCOHOL 00:00: sugar 4 [place] PREP PADS) 00 times Medical PadM daily Branch Alcohol 2020-0 Yes [id number] Use to [facility] vers Swabs 7-28 test blood ity of (ALCOHOL 00:00: sugar 4 [place] PREP PADS) 00 times Medical PadM daily Branch Alcohol 2020-0 Yes [id number] Use to [facility] vers Swabs 7-28 test blood ity of (ALCOHOL 00:00: sugar 4 [place] PREP PADS) 00 times Medical PadM daily Branch Alcohol 2020-0 Yes [id number] Use to [facility] vers Swabs 7-28 test blood ity of (ALCOHOL 00:00: sugar 4 [place] PREP PADS) 00 times Medical PadM daily Branch Alcohol 2020-0 Yes [id number] Use to [facility] vers Swabs 7-28 test blood ity of (ALCOHOL 00:00: sugar 4 [place] PREP PADS) 00 times Medical PadM daily Branch Alcohol 2020-0 Yes [id number] Use to [facility] vers Swabs 7-28 test blood ity of (ALCOHOL 00:00: sugar 4 [place] PREP PADS) 00 times Medical PadM daily Branch Alcohol 2020-0 Yes [id number] Use to [facility] vers Swabs 7-28 test blood ity of (ALCOHOL 00:00: sugar 4 [place] PREP PADS) 00 times Medical PadM daily Branch Alcohol 2020-0 Yes [id number] Use to [facility] vers Swabs 7-28 test blood ity of (ALCOHOL 00:00: sugar 4 [place] PREP PADS) 00 times Medical PadM daily Branch Alcohol 2020-0 Yes [id number] Use to [facility] vers Swabs 7-28 test blood ity of (ALCOHOL 00:00: sugar 4 [place] PREP PADS) 00 times Medical PadM daily Branch Alcohol 2020-0 Yes [id number] Use to [facility] vers Swabs 7-28 test blood ity of (ALCOHOL 00:00: sugar 4 [place] PREP PADS) 00 times Medical PadM daily Branch Alcohol 2020-0 Yes [id number] Use to [facility] vers Swabs 7-28 test blood ity of (ALCOHOL 00:00: sugar 4 [place] PREP PADS) 00 times Medical PadM daily Branch Alcohol 2020-0 Yes [id number] Use to [facility] vers Swabs 7-28 test blood ity of (ALCOHOL 00:00: sugar 4 [place] PREP PADS) 00 times Medical PadM daily Branch Alcohol 2020-0 Yes [id number] Use to [facility] vers Swabs 7-28 test blood ity of (ALCOHOL 00:00: sugar 4 [place] PREP PADS) 00 times Medical PadM daily Branch Alcohol 2020-0 Yes [id number] Use to [facility] vers Swabs 7-28 test blood ity of (ALCOHOL 00:00: sugar 4 [place] PREP PADS) 00 times Medical PadM daily Branch Alcohol 2020-0 Yes [id number] Use to [facility] vers Swabs 7-28 test blood ity of (ALCOHOL 00:00: sugar 4 [place] PREP PADS) 00 times Medical PadM daily Branch Alcohol 2020-0 Yes [id number] Use to [facility] vers Swabs 7-28 test blood ity of (ALCOHOL 00:00: sugar 4 [place] PREP PADS) 00 times Medical PadM daily Branch Alcohol 2020-0 Yes [id number] Use to [facility] vers Swabs 7-28 test blood ity of (ALCOHOL 00:00: sugar 4 [place] PREP PADS) 00 times Medical PadM daily Branch Alcohol 2020-0 Yes [id number] Use to [facility] vers Swabs 7-28 test blood ity of (ALCOHOL 00:00: sugar 4 [place] PREP PADS) 00 times Medical PadM daily Branch Alcohol 2020-0 Yes [id number] Use to [facility] vers Swabs 7-28 test blood ity of (ALCOHOL 00:00: sugar 4 [place] PREP PADS) 00 times Medical PadM daily Branch LANCING 2019-0 Yes [id number] Use with [facility] n[facility] DEVICE Misc 8-27 lancets to it y of 00:00: check blood Medical glucose Branch LANCING 2019-0 Yes [id number] Use with [facility] nivers DEVICE Misc 8-27 lancets to it y of 00:00: check blood Medical glucose Branch LANCING 2019-0 Yes [id number] Use with [facility] nivers DEVICE Misc 8-27 lancets to it y of 00:00: check blood Medical glucose Branch LANCING 2019-0 Yes [id number] Use with [facility] nivers DEVICE Misc 8-27 lancets to it y of 00:00: check blood Medical glucose Branch LANCING 2019-0 Yes [id number] Use with [facility] nivers DEVICE Misc 8-27 lancets to it y of 00:00: check blood Medical glucose Branch LANCING 2019-0 Yes [id number] Use with [facility] nivers DEVICE Misc 8-27 lancets to it y of 00:00: check blood Medical glucose Branch LANCING 2019-0 Yes [id number] Use with [facility] nivers DEVICE Misc 8-27 lancets to it y of 00:00: check blood Medical glucose Branch LANCING 2019-0 Yes [id number] Use with [facility] nivers DEVICE Misc 8-27 lancets to it y of 00:00: check blood Medical glucose Branch LANCING 2019-0 Yes [id number] Use with [facility] nivers DEVICE Misc 8-27 lancets to it y of 00:00: check [place] blood Medical glucose Branch LANCING 2019-0 Yes [id number] Use with [facility] nivers DEVICE Misc 8-27 lancets to it y of 00:00: check blood Medical glucose Branch LANCING 2019-0 Yes [id number] Use with [facility] nivers DEVICE Misc 8-27 lancets to it y of 00:00: check [place] blood Medical glucose Branch LANCING 2019-0 Yes [id number] Use with [facility] nivers DEVICE Misc 8-27 lancets to it y of 00:00: check blood Medical glucose Branch LANCING 2019-0 Yes [id number] Use with [facility] nivers DEVICE Misc 8-27 lancets to it y of 00:00: check blood Medical glucose Branch LANCING 2019-0 Yes [id number] Use with [facility] nivers DEVICE Misc 8-27 lancets to it y of 00:00: check [place] blood Medical glucose Branch LANCING 2019-0 Yes [id number] Use with [facility] nivers DEVICE Misc 8-27 lancets to it y of 00:00: check [place] blood Medical glucose Branch LANCING 2019-0 Yes [id number] Use with [facility] n[facility] DEVICE Misc 8-27 lancets to it y of 00:00: check [place] blood Medical glucose Branch LANCING 2019-0 Yes [id number] Use with [facility] DEVICE Misc 8-27 lancets to it y of 00:00: check [place] blood Medical glucose Branch LANCING 2019-0 Yes [id number] Use with [facility] DEVICE Misc 8-27 lancets to it y of 00:00: check [place] blood Medical glucose Branch LANCING 2019-0 Yes [id number] Use with [facility] DEVICE Misc 8-27 lancets to it y of 00:00: check [place] blood Medical glucose Branch LANCING 2019-0 Yes [id number] Use with [facility] DEVICE Misc 8-27 lancets to it y of 00:00: check [place] blood Medical glucose Branch LANCING 2019-0 Yes [id number] Use with [facility] DEVICE Misc 8-27 lancets to it y of 00:00: check [place] blood Medical glucose Branch LANCING 2019-0 Yes [id number] Use with [facility] DEVICE Misc 8-27 lancets to it y of 00:00: check [place] blood Medical glucose Branch LANCING 2019-0 Yes [id number] Use with [facility] DEVICE Misc 8-27 lancets to it y of 00:00: check [place] blood Medical glucose Branch LANCING 2019-0 Yes [id number] Use with [facility] nivers DEVICE Misc 8-27 lancets to it y of 00:00: check [place] blood Medical glucose Branch LANCING 2019-0 Yes [id number] Use with [facility] DEVICE Misc 8-27 lancets to it y of 00:00: check blood Medical glucose Branch LANCING 2019-0 Yes [id number] Use with [facility] DEVICE Misc 8-27 lancets to it y of 00:00: check blood Medical glucose Branch LANCING 2019-0 Yes [id number] Use with [facility] DEVICE Misc 8-27 lancets to it y of 00:00: check blood Medical glucose Branch LANCING 2019-0 Yes [id number] Use with [facility]ivers DEVICE Misc 8-27 lancets to it y of 00:00: check blood Medical glucose Branch LANCING 2019-0 Yes [id number] Use with [facility] nivers DEVICE Misc 8-27 lancets to it y of 00:00: check blood Medical glucose Branch LANCING 2019-0 Yes [id number] Use with [facility] DEVICE Misc 8-27 lancets to it y of 00:00: check blood Medical glucose Branch LANCING 2019-0 Yes [id number] Use with [facility] n[facility] DEVICE Misc 8-27 lancets to it y of 00:00: check blood Medical glucose Branch LANCING 2019-0 Yes [id number] Use with [facility]ivers DEVICE Misc 8-27 lancets to it y of 00:00: check [place] blood Medical glucose Branch LANCING 2019-0 Yes [id number] Use with [facility] nivers DEVICE Misc 8-27 lancets to it y of 00:00: check blood Medical glucose Branch LANCING 2019-0 Yes [id number] Use with [facility] DEVICE Misc 8-27 lancets to it y of 00:00: check blood Medical glucose Branch LANCING 2019-0 Yes [id number] Use with [facility] DEVICE Misc 8-27 lancets to it y of 00:00: check [place] blood Medical glucose Branch LANCING 2019-0 Yes [id number] Use with [facility] nivers DEVICE Misc 8-27 lancets to it y of 00:00: check [place] blood Medical glucose Branch LANCING 2019-0 Yes [id number] Use with [facility]ivers DEVICE Misc 8-27 lancets to it y of 00:00: check [place] blood Medical glucose Branch LANCING 2019-0 Yes [id number] Use with [facility] DEVICE Misc 8-27 lancets to it y of 00:00: check blood Medical glucose Branch LANCING 2019-0 Yes [id number] Use with [facility] DEVICE Misc 8-27 lancets to it y of 00:00: check [place] blood Medical glucose Branch LANCING 2019-0 Yes [id number] Use with [facility] DEVICE Misc 8-27 lancets to it y of 00:00: check [place] blood Medical glucose Branch LANCING 2019-0 Yes [id number] Use with [facility] DEVICE Misc 8-27 lancets to it y of 00:00: check [place] blood Medical glucose Branch LANCING 2019-0 Yes [id number] Use with [facility] DEVICE Misc 8-27 lancets to it y of 00:00: check [place] blood Medical glucose Branch LANCING 2019-0 Yes [id number] Use with [facility] DEVICE Misc 8-27 lancets to it y of 00:00: check [place] blood Medical glucose Branch LANCING 2019-0 Yes [id number] Use with [facility] DEVICE Misc 8-27 lancets to it y of 00:00: check [place] blood Medical glucose Branch LANCING 2019-0 Yes [id number] Use with [facility] DEVICE Misc 8-27 lancets to it y of 00:00: check [place] blood Medical glucose Branch LANCING 2019-0 Yes [id number] Use with [facility] DEVICE Misc 8-27 lancets to it y of 00:00: check [place] blood Medical glucose Branch LANCING 2019-0 Yes [id number] Use with [facility] DEVICE Misc 8-27 lancets to it y of 00:00: check [place] blood Medical glucose Branch LANCING 2019-0 Yes [id number] Use with [facility]ivers DEVICE Misc 8-27 lancets to it y of 00:00: check [place] blood [facility] glucose [facility] LANCING 2019-0 Yes [id number] Use with U nivers DEVICE Misc 8-27 lancets to it y of 00:00: check [place] blood [facility] glucose [facility] LANCING 2019-0 Yes [id number] Use with U nivers DEVICE Misc 8-27 lancets to it y of 00:00: check [place] blood [facility] glucose [facility] LANCING 2019-0 Yes [id number] Use with U nivers DEVICE Misc 8-27 lancets to it y of 00:00: check [place] blood [facility] glucose [facility] LANCING 2019-0 Yes [id number] Use with [facility] nivers DEVICE Misc 8-27 lancets to it y of 00:00: check blood [facility] glucose [facility] LANCING 2019-0 Yes [id number] Use with [facility] nivers DEVICE Misc 8-27 lancets to it y of 00:00: check blood [facility] glucose [facility] LANCING 2019-0 Yes [id number] Use with [facility] n[facility] DEVICE Misc 8-27 lancets to it y of 00:00: check blood [facility] glucose [facility] LANCING 2019-0 Yes [id number] Use with [facility] nivers DEVICE Misc 8-27 lancets to it y of 00:00: check blood [facility] glucose [facility] LANCING 2019-0 Yes [id number] Use with [facility] nivers DEVICE Misc 8-27 lancets to it y of 00:00: check blood [facility] glucose [facility] LANCING 2019-0 Yes [id number] Use with [facility] n[facility] DEVICE Misc 8-27 lancets to it y of 00:00: check blood [facility] glucose [facility] LANCING 2019-0 Yes [id number] Use with [facility] nivers DEVICE Misc 8-27 lancets to it y of 00:00: check blood [facility] glucose [facility] LANCING 2019-0 Yes [id number] Use with [facility] nivers DEVICE Misc 8-27 lancets to it y of 00:00: check blood [facility] glucose [facility] LANCING 2019-0 Yes [id number] Use with [facility] nivers DEVICE Misc 8-27 lancets to it y of 00:00: check [place] blood [facility] glucose [facility] LANCING 2019-0 Yes [id number] Use with [facility] DEVICE Misc 8-27 lancets to it y of 00:00: check [place] blood [facility] glucose [facility] LANCING 2019-0 Yes [id number] Use with [facility] nivers DEVICE Misc 8-27 lancets to it y of 00:00: check [place] blood [facility] glucose [facility] LANCING 2019-0 Yes [id number] Use with [facility] DEVICE Misc 8-27 lancets to it y of 00:00: check [place] blood [facility] glucose [facility] LANCING 2019-0 Yes [id number] Use with [facility] nivers DEVICE Misc 8-27 lancets to it y of 00:00: check [place] blood [facility] glucose [facility] LANCING 2019-0 Yes [id number] Use with [facility] n[facility] DEVICE Misc 8-27 lancets to it y of 00:00: check blood [facility] glucose [facility] LANCING 2019-0 Yes [id number] Use with [facility] DEVICE Misc 8-27 lancets to it y of 00:00: check blood [facility] glucose [facility] LANCING 2019-0 Yes [id number] Use with [facility] n[facility] DEVICE Misc 8-27 lancets to it y of 00:00: check blood [facility] glucose [facility] LANCING 2019-0 Yes [id number] Use with [facility] DEVICE Misc 8-27 lancets to it y of 00:00: check blood [facility] glucose [facility] LANCING 2019-0 Yes [id number] Use with [facility] nivers DEVICE Misc 8-27 lancets to it y of 00:00: check blood [facility] glucose [facility] LANCING 2019-0 Yes [id number] Use with [facility] nivers DEVICE Misc 8-27 lancets to it y of 00:00: check blood [facility] glucose [facility] LANCING 2019-0 Yes [id number] Use with [facility] n[facility] DEVICE Misc 8-27 lancets to it y of 00:00: check blood [facility] glucose [facility] LANCING 2019-0 Yes [id number] Use with [facility] DEVICE Misc 8-27 lancets to it y of 00:00: check blood [facility] glucose [facility] LANCING 2019-0 Yes [id number] Use with [facility] nivers DEVICE Misc 8-27 lancets to it y of 00:00: check blood [facility] glucose [facility] LANCING 2019-0 Yes [id number] Use with [facility] DEVICE Misc 8-27 lancets to it y of 00:00: check [place] blood [facility] glucose [facility] LANCING 2019-0 Yes [id number] Use with [facility] nivers DEVICE Misc 8-27 lancets to it y of 00:00: check [place] blood [facility] glucose [facility] LANCING 2019-0 Yes [id number] Use with [facility] DEVICE Misc 8-27 lancets to it y of 00:00: check [place] blood [facility] glucose [facility] LANCING 2019-0 Yes [id number] Use with [facility] nivers DEVICE Misc 8-27 lancets to it y of 00:00: check [place] blood [facility] glucose [facility] LANCING 2019-0 Yes [id number] Use with [facility] nivers DEVICE Misc 8-27 lancets to it y of 00:00: check [place] 00 blood Medical glucose Branch LANCING 2019-0 Yes [id number] Use with U nivers DEVICE Misc 8-27 lancets to it y of 00:00: check [place] 00 blood [facility] glucose [facility] LANCING 2019-0 Yes [id number] Use with [facility] nivers DEVICE Misc 8-27 lancets to it y of 00:00: check [place] 00 blood [facility] glucose [facility] aspirin 81 2019-0 Yes [id number] 81mg Take 1 [facility] mg [facility] 4-23 tablet by [facility] of tablet 00:00: mouth [place] 00 daily. [facility] aspirin 81 2019-0 Yes [id number] 81mg Take 1 [facility] mg EC 4-23 tablet by ity of tablet 00:00: mouth [place] 00 daily. [facility] aspirin 81 2019-0 Yes [id number] 81mg Take 1 [facility] mg EC 4-23 tablet by ity of tablet 00:00: mouth [place] 00 daily. [facility] Branch aspirin 81 2019-0 Yes [id number] 81mg Take 1 [facility] mg EC 4-23 tablet by ity of tablet 00:00: mouth [place] 00 daily. [facility] aspirin 81 2019-0 Yes [id number] 81mg Take 1 [facility] mg EC 4-23 tablet by ity of tablet 00:00: mouth [place] 00 daily. [facility] aspirin 81 2019-0 Yes [id number] 81mg Take 1 [facility] mg EC 4-23 tablet by ity of tablet 00:00: mouth [place] 00 daily. [facility] aspirin 81 2019-0 Yes [id number] 81mg Take 1 [facility] mg EC 4-23 tablet by ity of tablet 00:00: mouth [place] 00 daily. [facility] aspirin 81 2019-0 Yes [id number] 81mg Take 1 [facility] mg EC 4-23 tablet by ity of tablet 00:00: mouth [place] 00 daily. [facility] aspirin 81 2019-0 Yes [id number] 81mg Take 1 [facility] mg EC 4-23 tablet by ity of tablet 00:00: mouth [place] 00 daily. [facility] aspirin 81 2019-0 Yes [id number] 81mg Take 1 [facility] mg EC 4-23 tablet by ity of tablet 00:00: mouth [place] 00 daily. [facility] aspirin 81 2019-0 Yes [id number] 81mg Take 1 [facility] mg EC 4-23 tablet by ity of tablet 00:00: mouth [place] 00 daily. [facility] aspirin 81 2019-0 Yes [id number] 81mg Take 1 [facility] mg EC 4-23 tablet by ity of tablet 00:00: mouth [place] 00 daily. [facility] aspirin 81 2019-0 Yes [id number] 81mg Take 1 [facility] mg EC 4-23 tablet by ity of tablet 00:00: mouth [place] 00 daily. [facility] aspirin 81 2019-0 Yes [id number] 81mg Take 1 [facility] mg EC 4-23 tablet by ity of tablet 00:00: mouth [place] 00 daily. [facility] aspirin 81 2019-0 Yes [id number] 81mg Take 1 [facility] mg EC 4-23 tablet by ity of tablet 00:00: mouth [place] 00 daily. [facility] aspirin 81 2019-0 Yes [id number] 81mg Take 1 [facility] mg EC 4-23 tablet by ity of tablet 00:00: mouth [place] 00 daily. [facility] aspirin 81 2019-0 Yes [id number] 81mg Take 1 [facility] mg EC 4-23 tablet by ity of tablet 00:00: mouth [place] 00 daily. [facility] aspirin 81 2019-0 Yes [id number] 81mg Take 1 [facility] mg EC 4-23 tablet by ity of tablet 00:00: mouth [place] 00 daily. [facility] aspirin 81 2019-0 Yes [id number] 81mg Take 1 [facility] mg EC 4-23 tablet by ity of tablet 00:00: mouth [place] 00 daily. [facility] aspirin 81 2019-0 Yes [id number] 81mg Take 1 [facility] mg EC 4-23 tablet by ity of tablet 00:00: mouth [place] 00 daily. [facility] aspirin 81 2019-0 Yes [id number] 81mg Take 1 [facility] mg EC 4-23 tablet by ity of tablet 00:00: mouth [place] 00 daily. [facility] aspirin 81 2019-0 Yes [id number] 81mg Take 1 [facility] mg EC 4-23 tablet by ity of tablet 00:00: mouth [place] 00 daily. [facility] aspirin 81 2019-0 Yes [id number] 81mg Take 1 [facility] mg EC 4-23 tablet by ity of tablet 00:00: mouth [place] 00 daily. [facility] aspirin 81 2019-0 Yes [id number] 81mg Take 1 [facility] mg EC 4-23 tablet by ity of tablet 00:00: mouth [place] 00 daily. [facility] aspirin 81 2019-0 Yes [id number] 81mg Take 1 [facility] mg EC 4-23 tablet by ity of tablet 00:00: mouth [place] 00 daily. [facility] aspirin 81 2019-0 Yes [id number] 81mg Take 1 [facility] mg EC 4-23 tablet by ity of tablet 00:00: mouth [place] 00 daily. [facility] aspirin 81 2019-0 Yes [id number] 81mg Take 1 [facility] mg EC 4-23 tablet by ity of tablet 00:00: mouth [place] 00 daily. [facility] aspirin 81 2019-0 Yes [id number] 81mg Take 1 [facility] mg EC 4-23 tablet by ity of tablet 00:00: mouth [place] 00 daily. [facility] aspirin 81 2019-0 Yes [id number] 81mg Take 1 [facility] mg EC 4-23 tablet by ity of tablet 00:00: mouth [place] 00 daily. [facility] aspirin 81 2019-0 Yes [id number] 81mg Take 1 [facility] mg EC 4-23 tablet by ity of tablet 00:00: mouth [place] 00 daily. [facility] aspirin 81 2019-0 Yes [id number] 81mg Take 1 [facility] mg EC 4-23 tablet by ity of tablet 00:00: mouth [place] 00 daily. [facility] aspirin 81 2019-0 Yes [id number] 81mg Take 1 [facility] mg EC 4-23 tablet by ity of tablet 00:00: mouth [place] 00 daily. [facility] aspirin 81 2019-0 Yes [id number] 81mg Take 1 [facility] mg EC 4-23 tablet by ity of tablet 00:00: mouth [place] 00 daily. [facility] aspirin 81 2019-0 Yes [id number] 81mg Take 1 [facility] mg EC 4-23 tablet by ity of tablet 00:00: mouth [place] 00 daily. [facility] aspirin 81 2019-0 Yes [id number] 81mg Take 1 [facility] mg EC 4-23 tablet by ity of tablet 00:00: mouth [place] 00 daily. [facility] aspirin 81 2019-0 Yes [id number] 81mg Take 1 [facility] mg EC 4-23 tablet by ity of tablet 00:00: mouth [place] 00 daily. [facility] aspirin 81 2019-0 Yes [id number] 81mg Take 1 [facility] mg EC 4-23 tablet by ity of tablet 00:00: mouth [place] 00 daily. [facility] aspirin 81 2019-0 Yes [id number] 81mg Take 1 [facility] mg EC 4-23 tablet by ity of tablet 00:00: mouth [place] 00 daily. [facility] aspirin 81 2019-0 Yes [id number] 81mg Take 1 [facility] mg EC 4-23 tablet by ity of tablet 00:00: mouth [place] 00 daily. [facility] aspirin 81 2019-0 Yes [id number] 81mg Take 1 [facility] mg EC 4-23 tablet by ity of tablet 00:00: mouth [place] 00 daily. [facility] aspirin 81 2019-0 Yes [id number] 81mg Take 1 [facility] mg EC 4-23 tablet by ity of tablet 00:00: mouth [place] 00 daily. [facility] aspirin 81 2019-0 Yes [id number] 81mg Take 1 [facility] mg EC 4-23 tablet by ity of tablet 00:00: mouth [place] 00 daily. [facility] aspirin 81 2019-0 Yes [id number] 81mg Take 1 [facility] mg EC 4-23 tablet by ity of tablet 00:00: mouth [place] 00 daily. [facility] aspirin 81 2019-0 Yes [id number] 81mg Take 1 [facility] mg EC 4-23 tablet by ity of tablet 00:00: mouth [place] 00 daily. [facility] aspirin 81 2019-0 Yes [id number] 81mg Take 1 [facility] mg EC 4-23 tablet by ity of tablet 00:00: mouth [place] 00 daily. [facility] aspirin 81 2019-0 Yes [id number] 81mg Take 1 [facility] mg EC 4-23 tablet by ity of tablet 00:00: mouth [place] 00 daily. [facility] aspirin 81 2019-0 Yes [id number] 81mg Take 1 [facility] mg EC 4-23 tablet by ity of tablet 00:00: mouth [place] 00 daily. [facility] aspirin 81 2019-0 Yes [id number] 81mg Take 1 [facility] mg EC 4-23 tablet by ity of tablet 00:00: mouth [place] 00 daily. [facility] aspirin 81 2019-0 Yes [id number] 81mg Take 1 [facility] mg EC 4-23 tablet by ity of tablet 00:00: mouth [place] 00 daily. [facility] aspirin 81 2019-0 Yes [id number] 81mg Take 1 [facility] mg EC 4-23 tablet by ity of tablet 00:00: mouth [place] 00 daily. [facility] aspirin 81 2019-0 Yes [id number] 81mg Take 1 [facility] mg EC 4-23 tablet by ity of tablet 00:00: mouth [place] 00 daily. [facility] aspirin 81 2019-0 Yes [id number] 81mg Take 1 [facility] mg EC 4-23 tablet by ity of tablet 00:00: mouth [place] 00 daily. [facility] aspirin 81 2019-0 Yes [id number] 81mg Take 1 [facility] mg EC 4-23 tablet by ity of tablet 00:00: mouth [place] 00 daily. [facility] aspirin 81 2019-0 Yes [id number] 81mg Take 1 [facility] mg EC 4-23 tablet by ity of tablet 00:00: mouth [place] 00 daily. [facility] aspirin 81 2019-0 Yes [id number] 81mg Take 1 [facility] mg EC 4-23 tablet by ity of tablet 00:00: mouth [place] 00 daily. [facility] aspirin 81 2019-0 Yes [id number] 81mg Take 1 [facility] mg EC 4-23 tablet by ity of tablet 00:00: mouth [place] 00 daily. [facility] aspirin 81 2019-0 Yes [id number] 81mg Take 1 [facility] mg EC 4-23 tablet by ity of tablet 00:00: mouth [place] 00 daily. [facility] aspirin 81 2019-0 Yes [id number] 81mg Take 1 [facility] mg EC 4-23 tablet by ity of tablet 00:00: mouth [place] 00 daily. [facility] aspirin 81 2019-0 Yes [id number] 81mg Take 1 [facility] mg EC 4-23 tablet by ity of tablet 00:00: mouth [place] 00 daily. [facility] aspirin 81 2019-0 Yes [id number] 81mg Take 1 [facility] mg EC 4-23 tablet by ity of tablet 00:00: mouth [place] 00 daily. [facility] aspirin 81 2019-0 Yes [id number] 81mg Take 1 [facility] mg EC 4-23 tablet by ity of tablet 00:00: mouth [place] 00 daily. [facility] aspirin 81 2019-0 Yes [id number] 81mg Take 1 [facility] mg EC 4-23 tablet by ity of tablet 00:00: mouth [place] 00 daily. [facility] aspirin 81 2019-0 Yes [id number] 81mg Take 1 [facility] mg EC 4-23 tablet by ity of tablet 00:00: mouth [place] 00 daily. [facility] aspirin 81 2019-0 Yes [id number] 81mg Take 1 [facility] mg EC 4-23 tablet by ity of tablet 00:00: mouth [place] 00 daily. [facility] aspirin 81 2019-0 Yes [id number] 81mg Take 1 [facility] mg EC 4-23 tablet by ity of tablet 00:00: mouth [place] 00 daily. [facility] aspirin 81 2019-0 Yes [id number] 81mg Take 1 [facility] mg EC 4-23 tablet by ity of tablet 00:00: mouth [place] 00 daily. [facility] aspirin 81 2019-0 Yes [id number] 81mg Take 1 [facility] mg EC 4-23 tablet by ity of tablet 00:00: mouth [place] 00 daily. [facility] aspirin 81 2019-0 Yes [id number] 81mg Take 1 [facility] mg EC 4-23 tablet by ity of tablet 00:00: mouth [place] 00 daily. [facility] aspirin 81 2019-0 Yes [id number] 81mg Take 1 [facility] mg EC 4-23 tablet by ity of tablet 00:00: mouth [place] 00 daily. [facility] aspirin 81 2019-0 Yes [id number] 81mg Take 1 [facility] mg EC 4-23 tablet by ity of tablet 00:00: mouth [place] 00 daily. [facility] aspirin 81 2019-0 Yes [id number] 81mg Take 1 [facility] mg EC 4-23 tablet by ity of tablet 00:00: mouth [place] 00 daily. [facility] aspirin 81 2019-0 Yes [id number] 81mg Take 1 [facility] mg EC 4-23 tablet by ity of tablet 00:00: mouth [place] 00 daily. [facility] aspirin 81 2019-0 Yes [id number] 81mg Take 1 [facility] mg EC 4-23 tablet by ity of tablet 00:00: mouth [place] 00 daily. [facility] aspirin 81 2019-0 Yes [id number] 81mg Take 1 [facility] mg EC 4-23 tablet by ity of tablet 00:00: mouth [place] 00 daily. [facility] aspirin 81 2019-0 Yes [id number] 81mg Take 1 [facility] mg EC 4-23 tablet by ity of tablet 00:00: mouth [place] 00 daily. [facility] aspirin 81 2019-0 Yes [id number] 81mg Take 1 [facility] mg EC 4-23 tablet by ity of tablet 00:00: mouth [place] 00 daily. [facility] aspirin 81 2019-0 Yes [id number] 81mg Take 1 [facility] mg EC 4-23 tablet by ity of tablet 00:00: mouth [place] 00 daily. [facility] aspirin 81 2019-0 Yes [id number] 81mg Take 1 [facility] mg EC 4-23 tablet by ity of tablet 00:00: mouth [place] 00 daily. [facility] aspirin 81 2019-0 Yes [id number] 81mg Take 1 [facility] mg EC 4-23 tablet by ity of tablet 00:00: mouth [place] 00 daily. [facility] aspirin 81 2019-0 Yes [id number] 81mg Take 1 [facility] mg EC 4-23 tablet by ity of tablet 00:00: mouth [place] 00 daily. [facility] Lisinopril Lisinopril 2017- Yes ROBSON QD TAKE 1 UT 5 [...] Delayed Delayed 00 Release Release Amoxicillin Amoxicillin 2017- Yes Q12H TAKE 1 UT 875 MG [...] PO, QPM, # l Tablet 14:08: 30 capletBlessing nn [Topamax] 00 0 Refill(s) atorvastati Yes 80 mg = 1 M emoria n 80 mg 6-27 tab, PO, l oral tablet 14:08: Bedtime, # [place] 00 30 tab, 0 Refill(s) Lisinopril No Notes: Memor ia - (Same as: l 14:00: Prinivil, Zestril) Baclofen No Notes: [facility]oria 03-19 (Same As: l 14:00: Lioresal) Depacon + No Notes: Memori a Sodium - Dilute in l Chloride 20:20: at least [...] Luis dennis 6-26 (Same l 19:33: as:Solu-ME DROL, A-Methapre d) Phenergan No Notes: Do Mem oria 6-26 not give l 19:33: IV push. (Same [...] tab, PO, l mg oral 15:16: Daily [place] tablet 00 lisinopril Yes 5 mg = [...] capsule Saline No Notes: [facility] Flush 0.9% - (Same as: l 14:00: BD [place] 00 Posiflush) heparin, No Notes: [facility] porcine -26 porcine l 13:00: heparin Lovenox No Notes: [facility]oria 6-26 (Same as: l 13:00: Lovenox) [place] 00 Motrin No 600 mg, Memoria - Route: PO, l 10:48: Drug form: [place] 00 TAB, ONCE, Dosing Weight 77.727, kg, Priority: STAT, Start date: 03/18/14 5:48:00, Stop date: 03/18/14 5:48:00 atorvastati No Notes: Jose Luis dennis n - Same as l 09:47: Lipitor Saline No Notes: [facility] Flush 0.9% 6-26 (Same as: l 09:42: BD S[place] 00 Posiflush) Ibuprofen No Notes: Memori a 6-26 (Same as: l 05:08: Motrin) Srikanth 00 "Do Not Crush" Take with food. Iohexol No Special [facility]oria 03-18 Instructio l 03:15: ns: Dose = [place] 00 2.2ml/kg, Max dose = 100ml -- [...] 03-18 (Same as: l 02:41: BD Srikanth 00 Posiflush) Macrobid No Notes: Not Mem oria 01-01 Recommende l 17:00: d for [place] 00 patients with CrCl< 50 ml/min With food (Same as:Macroda ntin) Nitrofurant Yes 100 mg = 1 Memoria oin 100 MG 11 cap, PO, l Oral 16:05: [id number], # [place] Capsule 00 14 cap, 0 [Macrobid] Refill(s) [...] tab, PO, l tablet 16:10: Daily, # [place] 00 30 tab, 0 Refill(s) pantoprazol Yes 40 mg = 1 M emoria e 40 mg 4-10 tab, PO, l oral 16:10: Before Srikanth enteric 00 Dinner, # coated 30 tab, 0 tablet Refill(s) Tylenol No 650 mg, Memoria 410 Route: PO, l 06:31: Drug form: Srik[place] 00 TAB, Q6H, Dosing Weight 81.818, kg, PRN Pain, Start date: 12/31/13 1:31:00, Duration: 30 day, Stop date: 01/30/14 1:30:00 Docusate No Notes: [facility] 12-30 (Same as: l 13:00: Colace) Srikanth (Do Not Crush) sennosides, No Notes: Jose Luis dennis [facility] 8.6 MG 12-30 (Same as: l Oral Tablet 02:00: Senokot) rm Baclofen No Notes: [facility] 12-29 (Same As: l 21:00: Lioresal) S[place] 00 insulin No 60 units) Jose Luis dennis regular 100 12-29 Stable for l units/mL 16:16: 28 days at [place] [id number] room recombinant temperatur e Expires in days from ____Date Dextrose No 6.25 gm, Memor ia 50% Syringe 12-29 12.5 mL, l 16:16: Route: [place] 00 IVP, Drug Form: INJ, Dosing Weight 81.818, kg, PRN, PRN Abnormal Lab Result, Start date: 12/29/13 11:16:00, Duration: 30 day, Stop date: 01/28/14 11:15:00 Dextrose No 25 gm, 50 Jose Luis dennis 50% Syringe 4-08 mL, Route: l 16:15: IVP, Drug [place] 00 Form: INJ, Dosing Weight 81.818, kg, PRN, PRN Abnormal Lab Result, Start date: 12/29/13 11:15:00, Duration: 30 day, Stop date: 01/28/14 11:14:00 Epinephrine No Notes: Jose Luis dennis 1 MG/ML 12-28 (Same as: l Injectable 13:58: Epipen Blessing nn Solution 00 Auto Inejctor) Prefilled syringe for IM use. Benadryl No Notes: Memoria -07 (Same as: l 13:56: Benadryl) [place] 00 Ciprofloxac No Notes: Jose Luis dennis in 3 MG/ML 12-28 (Same As: l / 01:00: Ciprodex) Srikanth Dexamethaso 00 ne 1 MG/ML Otic Suspension [Ciprodex] Protonix No Notes: Memoria -06 Tablet l 21:30: should not [place] 00 be chewed or crushed. (Same as: [...] e 4-06 Tablet l 11:30: should not [place] 00 be chewed or crushed. (Same as: Protonix) Protonix No 40 mg, Memoria 4-05 Route: l 12:19: IVP, [place] 00 Before Breakfast, Dosing Weight 81.818, kg, Start date: 12/26/13 7:19:00, Duration: 30 day, Stop date: 01/25/14 6:30:00 Lovenox No Notes: [facility]oria - (Same as: l 19:00: Lovenox) [place] 00 Lovenox No Notes: [facility]oria - (Same as: l 16:00: Lovenox) docusate No Notes: [facility] 12-25 (Same as: l 15:32: Colace) Acetaminoph No Notes: Do M emoria en 12-25 not exceed l 13:00: 4 gm/day. [place] (Same as: Tylenol) docusate No Notes: [facility]oria 12-24 (Same as: l 23:00: Colace) lidocaine No Notes: Memori a topical 12-24 Apply only l patch (5% 14:00: once for Herm tee film) 00 up to 12 hours in a 24-hour period (12 hours on and 12 hours off). (Same as: Lidoderm) "Remove old patch before applicatio n of new patch" Lidocaine No Special Memor ia Hydrochlori 12-24 Instructio l de 0.05 13:00: ns: Remove [...] 12:00:00 Lidocaine No Notes: Memori a Hydrochlori 4-02 Apply only l de 0.05 15:05: once for Gerardo n MG/MG 00 up to 12 Transdermal hours in a Patch 24-hour [Lidoderm] period (12 hours on and 12 hours off). (Same as: Lidoderm) "Remove old patch before applicatio n of new patch" Lidocaine No Notes: Memori a Hydrochlori -02 Apply only l de 0.05 14:39: once for Gerardo n MG/MG 00 up to 12 Transdermal hours in a Patch 24-hour period (12 hours on and 12 hours off). (Same as: Lidoderm) "Remove old patch before applicatio n of new patch" Baclofen No Notes: [facility] 4-01 (Same As: l 21:00: Lioresal) [place] Baclofen No Notes: [facility]oria 4-01 (Same As: l 01:00: Lioresal) Srikanth Lidocaine No Notes: Memori a Hydrochlori 3-30 [...] as: l 15:26: Mag-Ox 400) Magnesium oxide [id number] g elemental magnesium Dose=____m g magnesium oxide (___mg elemental magnesium) heparin No Notes: [facility]oria 3-20 porcine l 23:00: heparin simethicone No 0 Memori a 80 mg oral 3-20 Refill(s) l tablet 22:47: Srikanth 00 Buspirone No 0 Memoria 3-20 Refill(s) l 22:47: [place] 00 Namenda No 0 Memoria 3-20 Refill(s) l 22:47: [place] 00 Metoclopram No Notes: Jose Luis dennis rochelle 10 MG 3-20 (Same as: l Oral Tablet 21:30: Reglan) Her stone [Reglan] 00 Take 30 min before meals Keflex No Notes: [facility] 3-17 Take on l 19:00: empty [place] stomach. (Same As: Keflex) NS (Bolus) No Special Jose Luis dennis IV 500 mL 3-15 Instructio l 14:39: ns: Bolus [place] 00 Dose NS (Bolus) No Special Jose Luis dennis IV 500 mL 3-15 Instructio l 13:49: ns: Bolus Srikanth Dose Lisinopril No Notes: Memor ia 3-15 (Same as: l 13:00: Prinivil, Srikanth 00 Zestril) Keflex No Notes: [facility] 3-15 Take on l 05:00: empty Srikanth stomach. (Same As: Keflex) Keflex No 500 mg, [facility] 3-14 Route: PO, l 21:00: Q8H, Srikanth Dosing Weight 81.818, kg, Start date: 12/04/13 16:00:00, Duration: 30 day, Stop date: 01/03/14 8:00:00 normal 0 No 1,000 mL, Memori a saline 0.9% 3-14 Rate: 75 l IV 1,000 mL 16:08: ml/hr, Herm tee Infuse over: 13.3 hr, Route: IV, Dosing Weight 81.818 kg, Total Volume: 1,000, Start date: 12/04/13 11:08:00, Duration: 30 day, Stop date: 01/03/14 11:07:00 normal 0 No 1,000 mL, Memori a saline 0.9% 3-14 Rate: 75 l IV 1000 mL 16:06: ml/hr, Blessing nn Infuse over: 13.3 hr, Route: IV, Dosing Weight 81.818 kg, Total Volume: 1,000, Start date: 12/04/13 11:06:00, Duration: 30 day, Stop date: 01/03/14 11:05:00 Bisacodyl No Notes: Memori a 10 MG Enema 3-13 (Same As: l 19:40: Dulcolax, Bisco-Lax) Metformin [...] Memoria 3-11 (Same As: l 19:00: Rocephin). 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 Stable for l H 13:00: 28 days at Srikanth 00 room temperatur e Expires in days from ____Date Dextrose No 12.5 gm, Memor ia 50% Syringe 3-11 25 mL, l 11:53: Route: Srikanth 00 IVP, Drug Form: INJ, Dosing Weight 81.818, kg, PRN, PRN Abnormal Lab Result, Start date: 12/01/13 6:53:00, Duration: 30 day, Stop date: 12/31/13 6:52:00 Regular No 60 units) Jose Luis dennis Insulin, 3-11 Stable for l Human 100 11:53: 28 days at [facility] UNT/ 00 room Injectable temperatur Solution e Expires in days from ____Date heparin, No Notes: Memoria porcine 3-11 porcine l 05:00: heparin Docusate No Notes: [facility]oria 3-11 (Same as: l 02:00: Colace) sennosides, No Notes: Jose Luis dennis [facility] 8.6 MG 3-11 (Same as: l Oral Tablet 02:00: Senokot) He rm Saline No Notes: Memoria Flush 0.9% 3-11 [...] Insulin, 3-10 Route: l Pork 22:00: SUB-Q, BID, Dosing Weight 84.545, kg, Start date: 11/30/13 17:00:00, Duration: 30 day, Stop date: 12/30/13 9:00:00 Docusate No Notes: Memoria 3-10 (Same as: l 22:00: Colace) (Do Not Crush) Ceftriaxone No 1 gm, Memor ia 3-10 Route: l 22:00: IVPB, Drug form: PDR/INJ, [id number], Dosing Weight 84.545, kg, Start date: 11/30/13 17:00:00, Duration: 30 day, Stop date: 12/29/13 17:00:00 Flexeril No Notes: Memoria 3-10 (Same As: l 21:42: Flexeril) Srikanth 00 lisinopril Yes 10 mg = 1 Me [...] 1 g 3-10 IVPB, l injection 18:30: [id number], # He r[place] 00 4 inj, 0 Refill(s) pneumococca No 0.5 ml, Mem oria l capsular 3-10 Route: IM, l polysacchar 18:00: Drug Form: [place] rochelle type 1 00 INJ, vaccine / [...] sennosides, No 8.6 mg, 1 M emoria [facility] 3-10 tab, l 14:00: Route: PO, Drug Form: TAB, Dosing Weight 84.545, kg, Daily, Start date: 11/30/13 9:00:00, Duration: 30 day, Stop date: 12/29/13 9:00:00(Sa me as: Senokot) Rocephin No 1 gm, Memoria 3-09 Route: l 19:00: IVPB, Drug form: PDR/INJ, [id number], Dosing Weight 84.545, kg, Start date: 11/29/13 14:00:00, Duration: 30 day, Stop date: 12/28/13 14:00:00(S elida As: Rocephin). Use with 100ml NS mini-bag PLUS and infuse over 30 min Fleet Enema 2013-0 No 133 ml, Mem oria 3-09 Route: NC, l 18:12: Drug Form: MORENITA, Dosing Weight [...] 9:00:00, Duration: 30 day, Stop date: 12/28/13 9:00:00([facility] as: Prinivil, Zestril) Labetalol 2013-0 No 10 mg, 2 Jose Luis dennis 3-09 mL, Route: l 01:05: IVP, Drug form: INJ, Q15Min, Dosing Weight 84.545, kg, PRN Hypertensi on, Start date: 11/28/13 19:05:00, Duration: 30 day, Stop date: 12/28/13 20:04:00 Lisinopril 2014-0 No 5 mg, 1 Jose Luis dennis 3-08 tab, l 16:13: Route: PO, Drug form: TAB, ONCE, Dosing Weight 84.545, kg, Priority: NOW, Start date: 11/28/13 10:13:00, Stop date: 11/28/13 10:13:00(S elida as: Prinivil, Zestril) Atenolol 25 2013-0 No 25 mg = 1 M emoria MG Oral 3-08 tab, PO, l Tablet 01:03: Daily, # [place] 00 30 tab, 0 Refill(s) heparin, 2013-0 No 5,000 Memoria porcine 3-07 unit, 1 l 22:00: mL, Route: Srikanth 00 SUB-Q, Drug form: INJ, Q8H, Dosing Weight 84.545, kg, Start date: 11/27/13 16:00:00, Duration: 30 day, Stop date: 12/27/13 8:00:00por cine heparin Lisinopril 2013- No 5 mg, 1 Jose Luis dennis 3-07 tab, l 21:15: Route: PO, [place] 00 Drug form: TAB, Daily, Dosing Weight 84.545, kg, Start date: 11/27/13 15:15:00, Duration: 30 day, Stop date: 12/27/13 9:00:00(Sa oh as: Prinivil, Zestril) NPH 2013-0 No 10 unit, Memoria Insulin, 3-07 Route: l Pork 13:30: SUB-Q, [place] 00 Before Breakfast, Dosing Weight 84.545, kg, Start date: 11/27/13 7:30:00, Duration: 30 day, Stop date: 12/26/13 7:30:00 NPH 2013-0 No 10 unit, Memoria Insulin, 3-07 Route: l Pork 03:00: SUB-Q, [place] 00 Bedtime, Dosing Weight 84.545, kg, Start date: 11/26/13 21:00:00, Duration: 30 day, Stop date: 12/25/13 21:00:00 Iohexol 2013-0 No 85 mL, Memoria 3-07 Route: l 00:00: IVP, Drug [place] 00 Form: SOLN, Dosing Weight 84.545, kg, ONCALL, STAT, Start date: 11/26/13 18:00:00, Duration: 1 doses or times, Stop date: 11/27/13 6:00:00, Dose = 2.2ml/kg, Max dose = 100ml -- "To be infused by Radiology Staff ONLY"(Same as:Omnipaq ue 350). Humulin N No 10 unit, Jose Luis dennis 3-06 0.1 mL, l 23:00: Route: [place] 00 SUB-Q, Drug form: INJ, BID, Start date: 11/26/13 17:00:00, Duration: 30 day, Stop date: 12/26/13 9:00:00 60 units) Stable for 28 days at room temperatur e Expires in days from ____Date Labetalol 2013- No 100 mg, 1 Mem oria 3-06 tab, l 23:00: Route: PO, [place] 00 Drug form: TAB, BID, Dosing Weight 84.545, kg, Start date: 11/26/13 17:00:00, Duration: 30 day, Stop date: 12/26/13 9:00:00Wit h food. (Same as:Trandat e, Normodyne) Protonix No 40 mg, 1 Memor ia 3-06 tab, l 22:30: Route: PO, Drug form: ECTAB, Before Dinner, Start date: 11/26/13 16:30:00, Duration: 30 day, Stop date: 12/25/13 16:30:00Ta blet should not be chewed or crushed. (Same as: Protonix) Captopril No 25 mg, Memori a 3-06 Route: PO, l 22:00: Drug form: Srikanth 00 TAB, Q8H, Dosing Weight 84.545, kg, Start date: 11/26/13 16:00:00, Duration: 30 day, Stop date: 12/26/13 8:00:00 omeprazole Yes 40 mg = 1 Me moria 40 mg oral 3-06 cap, PO, l delayed 16:26: Daily, # Gerardo n release 00 30 cap, 0 capsule Refill(s) Labetalol No 200 mg, 1 Mem oria 3-06 tab, l 15:00: Route: PO, [place] 00 Drug form: TAB, Q12H, Dosing Weight 84.545, kg, Start date: 11/26/13 9:00:00, Duration: 30 day, Stop date: 12/25/13 21:00:00Wi th food. (Same as:Nikolay Mederosodynsenthil) Docusate No 100 mg, 10 Mem oria 3-06 mL, Route: l 15:00: PO, Drug form: LIQ, Q12H, Dosing Weight 84.545, kg, Start date: 11/26/13 9:00:00, Duration: 30 day, Stop date: 12/25/13 21:00:00(S elida as: Colace) Influenza No 0.5 mL, Memor ia Virus 11-26 Route: IM, l Vaccine, 15:00: Drug Form: Her stone Inactivated 00 SUSP, A-[place]- Daily, Start (H3N2)-like date: virus 11/26/13 (A-[place]- 9:00:00, Stop date: [facility] 11/26/13 [id number]) 23:59:00(S strain / elida as: Influenza Fluzone Virus Quadrivale Vaccine, nt) Inactivated A-[place]- , IVR-148 (H1N1) strain / Influenza Virus Vaccine, Inactivated , B-[place]--lik Saline No 5 ml, Memoria Flush 0.9% 11-26 Route: l 15:00: IVP, Drug Form: INJ, Dosing Weight 84.545, kg, Q12H, Start date: 11/26/13 9:00:00, Duration: 30 day, Stop date: 12/25/13 21:00:00(S elida as: BD Posiflush) Acetaminoph No 650 mg, Mem oria en 11-26 20.3 mL, l 14:13: Route: PO, [place] 00 Drug form: LIQ, Q4H, Dosing Weight 84.545, kg, PRN Pain 1-3/Temp > 99.5 F, Start date: 11/26/13 8:13:00, Duration: 30 day, Stop date: 12/26/13 8:12:00Max acetaminop hen = 4000mg/day (4 gm/day). (Same as: Tylenol) Saline 2013- No 5 ml, Memoria Flush 0.9% 3-06 Route: l 14:13: IVP, Drug [place] 00 Form: INJ, Dosing Weight 84.545, kg, PRN, PRN Line Flush, Start date: 11/26/13 8:13:00, Duration: 30 day, Stop date: 12/26/13 9:12:00([facility] as: BD Posiflush) Bisacodyl 2013- No 10 mg, 1 Jose Luis dennis 3-06 supp, l 14:13: Route: NC, Srikanth 00 Drug form: SUPP, Q24H, Dosing Weight 84.545, kg, PRN Constipati on, Start date: 11/26/13 8:13:00, Duration: 30 day, Stop date: 12/26/13 8:12:00([facility] As: Dulcolax, Bisco-Lax) Nicardipine No 40 mg, [...] 2013-0 No 1,000 mL, Memori a Chloride 306 Rate: 75 l 0.154 14:13: ml/hr, Srikanth MEQ/ML 00 Infuse Injectable over: 13.3 Solution hr, Route: IV, Dosing Weight 84.545 kg, Total Volume: 1,000, Start date: 11/26/13 8:13:00, Duration: 30 day, Stop date: 12/26/13 8:12:00 Dextrose 2014-0 No 12.5 gm, Memor ia 50% Syringe 3-06 25 mL, l 13:31: Route: [place] 00 IVP, Drug Form: INJ, Dosing Weight [...] Source Name Name Influenza, 2022-07-20 Completed Melinda Snyderold - Injectable, Mdck, 00:00:00 Externa l Preservative Free, Quadrivalt Influenza, 2022-07-20 Completed Melinda Alvesybold - Injectable, Mdck, 00:00:00 Externa l Preservative Free, Quadrivalt Influenza, 2022-07-20 Completed Melinda Snyderold - Injectable, Mdck, 00:00:00 Externa l Preservative Free, Quadrivalt Influenza, 2022-07-20 Completed Melinda Seybold - Injectable, Mdck, 00:00:00 Externa l Preservative Free, Quadrivalt Influenza, 2022-07-20 Completed Melinda Snyderold - Injectable, Mdck, 00:00:00 Externa l Preservative Free, Quadrivalt Influenza, 2022-07-20 Completed Melinda Alvesybold - Injectable, Mdck, 00:00:00 Externa l Preservative [...] y of Vaccine Quad IM, 00:00:00 [place] [facility] Preserv and ABX Free Bran ch 6 MO-64 YRS SARS-COV-2 COVID-19 2021-11-23 Completed Unive rsity of [...] TOP) Branch Influenza Virus 2021-08-23 Completed Melinda Se ybold - Vaccine, No Preserv, 00:00:00 Exte rnal age 6 months and up Influenza Virus 2021-08-23 Completed Melinda Se ybold - Vaccine, No Preserv, 00:00:00 Exte rnal age 6 months and up Influenza Virus 2021-08-23 Completed Melinda Se ybold - Vaccine, No Preserv, 00:00:00 Exte rnal age 6 months and up Influenza Virus 2021-08-23 Completed Melinda Se ybold - Vaccine, No Preserv, 00:00:00 Exte rnal age 6 months and up Influenza Virus 2021-08-23 Completed Melinda Se ybold - Vaccine, No Preserv, 00:00:00 Exte rnal age 6 months and up Influenza Virus 2021-08-23 Completed Melinda Se ybold - Vaccine, No Preserv, 00:00:00 Exte [...] Completed Unive rsity of PFIZER VACCINE 00:00:00 [facility] SARS-COV-2 COVID-19 2020-12-30 Completed Unive rsity of PFIZER VACCINE 00:00:00 [facility] SARS-COV-2 COVID-19 2020-12-30 Completed Unive rsity of PFIZER VACCINE 00:00:00 [facility] SARS-COV-2 COVID-19 2020-12-30 Completed Unive rsity of PFIZER VACCINE 00:00:00 [facility] SARS-COV-2 COVID-19 2020-12-30 Completed Unive rsity of PFIZER VACCINE 00:00:00 [facility] SARS-COV-2 COVID-19 2020-12-30 Completed Unive rsity of PFIZER VACCINE 00:00:00 [facility] SARS-COV-2 COVID-19 2020-12-30 Completed Unive rsity of PFIZER VACCINE 00:00:00 [facility] SARS-COV-2 COVID-19 2020-12-30 Completed Unive rsity of PFIZER VACCINE 00:00:00 [facility] SARS-COV-2 COVID-19 2020-12-30 Completed Unive rsity of PFIZER VACCINE 00:00:00 [facility] SARS-COV-2 COVID-19 2020-12-30 Completed Unive rsity of PFIZER VACCINE 00:00:00 [facility] SARS-COV-2 COVID-19 2020-12-30 Completed Unive rsity of PFIZER VACCINE 00:00:00 [facility] SARS-COV-2 COVID-19 2020-12-30 Completed Unive rsity of PFIZER VACCINE 00:00:00 [facility] SARS-COV-2 COVID-19 2020-12-30 Completed Unive rsity of PFIZER VACCINE 00:00:00 [facility] SARS-COV-2 COVID-19 2020-12-30 Completed Unive rsity of PFIZER VACCINE 00:00:00 [facility] SARS-COV-2 COVID-19 2020-12-30 Completed Unive rsity of PFIZER VACCINE 00:00:00 [facility] SARS-COV-2 COVID-19 2020-12-30 Completed Unive rsity of PFIZER VACCINE 00:00:00 [facility] SARS-COV-2 COVID-19 2020-12-30 Completed Unive rsity of PFIZER VACCINE 00:00:00 [facility] SARS-COV-2 COVID-19 2020-12-30 Completed Unive rsity of PFIZER VACCINE 00:00:00 [facility] SARS-COV-2 COVID-19 2020-12-30 Completed Unive rsity of PFIZER VACCINE 00:00:00 [facility] SARS-COV-2 COVID-19 2020-12-30 Completed Unive rsity of PFIZER VACCINE 00:00:00 [facility] SARS-COV-2 COVID-19 2020-12-30 Completed Unive rsity of PFIZER VACCINE 00:00:00 [facility] SARS-COV-2 COVID-19 2020-12-30 Completed Unive rsity of PFIZER VACCINE 00:00:00 [facility] SARS-COV-2 COVID-19 2020-12-30 Completed Unive rsity of PFIZER VACCINE 00:00:00 [facility] SARS-COV-2 COVID-19 2020-12-30 Completed Unive rsity of PFIZER VACCINE 00:00:00 [facility] SARS-COV-2 COVID-19 2020-12-30 Completed Unive rsity of PFIZER VACCINE 00:00:00 [facility] SARS-COV-2 COVID-19 2020-12-30 Completed Unive rsity of PFIZER VACCINE 00:00:00 [facility] SARS-COV-2 COVID-19 2020-12-30 Completed Unive rsity of PFIZER VACCINE 00:00:00 [facility] SARS-COV-2 COVID-19 2020-12-30 Completed Unive rsity of PFIZER VACCINE 00:00:00 [facility] SARS-COV-2 COVID-19 2020-12-30 Completed Unive rsity of PFIZER VACCINE 00:00:00 [facility] SARS-COV-2 COVID-19 2020-12-30 Completed Unive rsity of PFIZER VACCINE 00:00:00 [facility] SARS-COV-2 COVID-19 2020-12-30 Completed Unive rsity of PFIZER VACCINE 00:00:00 [facility] SARS-COV-2 COVID-19 2020-12-30 Completed Unive rsity of PFIZER VACCINE 00:00:00 [facility] SARS-COV-2 COVID-19 2020-12-30 Completed Unive rsity of PFIZER VACCINE 00:00:00 [facility] SARS-COV-2 COVID-19 2020-12-30 Completed Unive rsity of PFIZER VACCINE 00:00:00 [facility] SARS-COV-2 COVID-19 2020-12-30 Completed Unive rsity of PFIZER VACCINE 00:00:00 [facility] SARS-COV-2 COVID-19 2020-12-30 Completed Unive rsity of PFIZER VACCINE 00:00:00 [facility] SARS-COV-2 COVID-19 2020-12-30 Completed Unive rsity of PFIZER VACCINE 00:00:00 [facility] SARS-COV-2 COVID-19 2020-12-30 Completed Unive rsity of PFIZER VACCINE 00:00:00 [facility] SARS-COV-2 COVID-19 2020-12-30 Completed Unive rsity of PFIZER VACCINE 00:00:00 [facility] SARS-COV-2 COVID-19 2020-12-30 Completed Unive rsity of PFIZER VACCINE 00:00:00 [facility] SARS-COV-2 COVID-19 2020-12-30 Completed Unive rsity of PFIZER VACCINE 00:00:00 [facility] SARS-COV-2 COVID-19 2020-12-30 Completed Unive rsity of PFIZER VACCINE 00:00:00 [facility] SARS-COV-2 COVID-19 2020-12-30 Completed Unive rsity of PFIZER VACCINE 00:00:00 [facility] SARS-COV-2 COVID-19 2020-12-30 Completed Unive rsity of PFIZER VACCINE 00:00:00 [facility] SARS-COV-2 COVID-19 2020-12-30 Completed Unive rsity of PFIZER VACCINE 00:00:00 [facility] SARS-COV-2 COVID-19 2020-12-30 Completed Unive rsity of PFIZER VACCINE 00:00:00 [facility] SARS-COV-2 COVID-19 2020-12-30 Completed Unive rsity of PFIZER VACCINE 00:00:00 [facility] SARS-COV-2 COVID-19 2020-12-30 Completed Unive rsity of PFIZER VACCINE 00:00:00 [facility] SARS-COV-2 COVID-19 2020-12-30 Completed Unive rsity of PFIZER VACCINE 00:00:00 [facility] SARS-COV-2 COVID-19 2020-12-30 Completed Unive rsity of PFIZER VACCINE 00:00:00 [facility] SARS-COV-2 COVID-19 2020-12-30 Completed Unive rsity of PFIZER VACCINE 00:00:00 [facility] SARS-COV-2 COVID-19 2020-12-30 Completed Unive rsity of PFIZER VACCINE 00:00:00 [facility] SARS-COV-2 COVID-19 2020-12-30 Completed Unive rsity of PFIZER VACCINE 00:00:00 [facility] SARS-COV-2 COVID-19 2020-12-30 Completed Unive rsity of PFIZER VACCINE 00:00:00 [facility] SARS-COV-2 COVID-19 2020-12-30 Completed Unive rsity of PFIZER VACCINE 00:00:00 [facility] SARS-COV-2 COVID-19 2020-12-30 Completed Unive rsity of PFIZER VACCINE 00:00:00 [facility] SARS-COV-2 COVID-19 2020-12-30 Completed Unive rsity of PFIZER VACCINE 00:00:00 [facility] SARS-COV-2 COVID-19 2020-12-30 Completed Unive rsity of PFIZER VACCINE 00:00:00 [facility] SARS-COV-2 COVID-19 2020-12-30 Completed Unive rsity of PFIZER VACCINE 00:00:00 [facility] SARS-COV-2 COVID-19 2020-12-30 Completed Unive rsity of PFIZER VACCINE 00:00:00 [facility] SARS-COV-2 COVID-19 2020-12-30 Completed Unive rsity of PFIZER VACCINE 00:00:00 [facility] SARS-COV-2 COVID-19 2020-12-30 Completed Unive rsity of PFIZER VACCINE 00:00:00 [facility] SARS-COV-2 COVID-19 2020-12-30 Completed Unive rsity of PFIZER VACCINE 00:00:00 [facility] SARS-COV-2 COVID-19 2020-12-30 Completed Unive rsity of PFIZER VACCINE 00:00:00 [facility] SARS-COV-2 COVID-19 2020-12-30 Completed Unive rsity of PFIZER VACCINE 00:00:00 [facility] SARS-COV-2 COVID-19 2020-12-30 Completed Unive rsity of PFIZER VACCINE 00:00:00 [facility] SARS-COV-2 COVID-19 2020-12-30 Completed Unive rsity of PFIZER VACCINE 00:00:00 [facility] SARS-COV-2 COVID-19 2020-12-30 Completed Unive rsity of PFIZER VACCINE 00:00:00 [facility] SARS-COV-2 COVID-19 2020-12-30 Completed Unive rsity of PFIZER VACCINE 00:00:00 [facility] SARS-COV-2 COVID-19 2020-12-30 Completed Unive rsity of PFIZER VACCINE 00:00:00 [facility] SARS-COV-2 COVID-19 2020-12-30 Completed Unive rsity of PFIZER VACCINE 00:00:00 [facility] SARS-COV-2 COVID-19 2020-12-30 Completed Unive rsity of PFIZER VACCINE 00:00:00 [facility] SARS-COV-2 COVID-19 2020-12-30 Completed Unive rsity of PFIZER VACCINE 00:00:00 [facility] SARS-COV-2 COVID-19 2020-12-30 Completed Unive rsity of PFIZER VACCINE 00:00:00 [facility] SARS-COV-2 COVID-19 2020-12-30 Completed Unive rsity of PFIZER VACCINE 00:00:00 [facility] SARS-COV-2 COVID-19 2020-12-30 Completed Unive rsity of PFIZER VACCINE 00:00:00 [facility] SARS-COV-2 COVID-19 2020-12-30 Completed Unive rsity of PFIZER VACCINE 00:00:00 [facility] SARS-COV-2 COVID-19 2020-12-30 Completed Unive rsity of PFIZER VACCINE 00:00:00 [facility] SARS-COV-2 COVID-19 2020-12-30 Completed Unive rsity of PFIZER VACCINE 00:00:00 [facility] SARS-COV-2 COVID-19 2020-12-30 Completed Unive rsity of PFIZER VACCINE 00:00:00 [facility] SARS-COV-2 COVID-19 2020-12-30 Completed Unive rsity of PFIZER VACCINE 00:00:00 [facility] SARS-COV-2 COVID-19 2020-12-30 Completed Unive rsity of PFIZER VACCINE 00:00:00 [facility] SARS-COV-2 COVID-19 2020-12-30 Completed Unive rsity of PFIZER VACCINE 00:00:00 [facility] SARS-COV-2 COVID-19 2020-12-30 Completed Unive rsity of PFIZER VACCINE 00:00:00 [facility] SARS-COV-2 COVID-19 2020-12-30 Completed Unive rsity of PFIZER VACCINE 00:00:00 [facility] SARS-COV-2 COVID-19 2020-12-30 Completed Unive rsity of PFIZER VACCINE 00:00:00 [facility] SARS-COV-2 COVID-19 2020-12-30 Completed Unive rsity of PFIZER VACCINE 00:00:00 [facility] SARS-COV-2 COVID-19 2020-12-30 Completed Unive rsity of PFIZER VACCINE 00:00:00 [facility] SARS-COV-2 COVID-19 2020-12-30 Completed Unive rsity of PFIZER VACCINE 00:00:00 [facility] SARS-COV-2 COVID-19 2020-12-30 Completed Unive rsity of PFIZER VACCINE 00:00:00 [facility] SARS-COV-2 COVID-19 2020-12-30 Completed Unive rsity of PFIZER VACCINE 00:00:00 [facility] SARS-COV-2 COVID-19 2020-12-30 Completed Unive rsity of PFIZER VACCINE 00:00:00 [facility] SARS-COV-2 COVID-19 2020-12-30 Completed Unive rsity of PFIZER VACCINE 00:00:00 [facility] SARS-COV-2 COVID-19 2020-12-30 Completed Unive rsity of PFIZER VACCINE 00:00:00 [facility] SARS-COV-2 COVID-19 2020-12-30 Completed Unive rsity of PFIZER VACCINE 00:00:00 [facility] SARS-COV-2 COVID-19 2020-12-30 Completed Unive rsity of PFIZER VACCINE 00:00:00 [facility] SARS-COV-2 COVID-19 2020-12-30 Completed Unive rsity of PFIZER VACCINE 00:00:00 [facility] SARS-COV-2 COVID-19 2020-12-30 Completed Unive rsity of PFIZER VACCINE 00:00:00 [facility] SARS-COV-2 COVID-19 2020-12-30 Completed Unive rsity of PFIZER VACCINE 00:00:00 [facility] SARS-COV-2 COVID-19 2020-12-30 Completed Unive rsity of PFIZER VACCINE 00:00:00 [facility] SARS-COV-2 COVID-19 2020-12-30 Completed Unive rsity of PFIZER VACCINE 00:00:00 [facility] SARS-COV-2 COVID-19 2020-12-30 Completed Unive rsity of PFIZER VACCINE 00:00:00 [facility] SARS-COV-2 COVID-19 2020-12-30 Completed Unive rsity of PFIZER VACCINE 00:00:00 [facility] SARS-COV-2 COVID-19 2020-12-30 Completed Unive rsity of PFIZER VACCINE 00:00:00 [facility] SARS-COV-2 COVID-19 2020-12-30 Completed Unive rsity of PFIZER VACCINE 00:00:00 [facility] SARS-COV-2 COVID-19 2020-12-30 Completed Unive rsity of PFIZER VACCINE 00:00:00 [facility] SARS-COV-2 COVID-19 2020-12-30 Completed Unive rsity of PFIZER VACCINE 00:00:00 [facility] SARS-COV-2 COVID-19 2020-12-30 Completed Unive rsity of PFIZER VACCINE 00:00:00 [facility] SARS-COV-2 COVID-19 2020-12-30 Completed Unive rsity of PFIZER VACCINE 00:00:00 [facility] SARS-COV-2 COVID-19 2020-12-30 Completed Unive rsity of PFIZER VACCINE 00:00:00 [facility] SARS-COV-2 COVID-19 2020-12-30 Completed Unive rsity of PFIZER VACCINE 00:00:00 [facility] SARS-COV-2 COVID-19 2020-12-30 Completed Unive rsity of PFIZER VACCINE 00:00:00 [facility] SARS-COV-2 COVID-19 2020-12-30 Completed Unive rsity of PFIZER VACCINE 00:00:00 [facility] SARS-COV-2 COVID-19 2020-12-30 Completed Unive rsity of PFIZER VACCINE 00:00:00 [facility] SARS-COV-2 COVID-19 2020-12-30 Completed Unive rsity of PFIZER VACCINE 00:00:00 [facility] SARS-COV-2 COVID-19 2020-12-30 Completed Unive rsity of PFIZER VACCINE 00:00:00 [facility] SARS-COV-2 COVID-19 2020-12-30 Completed Unive rsity of PFIZER VACCINE 00:00:00 [facility] SARS-COV-2 COVID-19 2020-12-30 Completed Unive rsity of PFIZER VACCINE 00:00:00 [facility] SARS-COV-2 COVID-19 2020-12-30 Completed Unive rsity of PFIZER VACCINE 00:00:00 [facility] SARS-COV-2 COVID-19 2020-12-30 Completed Unive rsity of PFIZER VACCINE 00:00:00 [facility] SARS-COV-2 COVID-19 2020-12-30 Completed Unive rsity of PFIZER VACCINE 00:00:00 [facility] SARS-COV-2 COVID-19 2020-12-30 Completed Unive rsity of PFIZER VACCINE 00:00:00 [facility] SARS-COV-2 COVID-19 2020-12-30 Completed Unive rsity of PFIZER VACCINE 00:00:00 [facility] SARS-COV-2 COVID-19 2020-12-30 Completed Unive rsity of PFIZER VACCINE 00:00:00 [facility] SARS-COV-2 COVID-19 2020-12-30 Completed Unive rsity of PFIZER VACCINE 00:00:00 [facility] SARS-COV-2 COVID-19 2020-12-30 Completed Unive rsity of PFIZER VACCINE 00:00:00 [facility] SARS-COV-2 COVID-19 2020-12-30 Completed Unive rsity of PFIZER VACCINE 00:00:00 [facility] SARS-COV-2 COVID-19 2020-12-30 Completed Unive rsity of PFIZER VACCINE 00:00:00 [facility] SARS-COV-2 COVID-19 2020-12-30 Completed Unive rsity of PFIZER VACCINE 00:00:00 [facility] SARS-COV-2 COVID-19 2020-12-30 Completed Unive rsity of PFIZER VACCINE 00:00:00 [facility] SARS-COV-2 COVID-19 2020-12-30 Completed Unive rsity of PFIZER VACCINE 00:00:00 [facility] SARS-COV-2 COVID-19 2020-12-30 Completed Unive rsity of PFIZER VACCINE 00:00:00 [facility] SARS-COV-2 COVID-19 2020-12-30 Completed Unive rsity of PFIZER VACCINE 00:00:00 [facility] SARS-COV-2 COVID-19 2020-12-30 Completed Unive rsity of PFIZER VACCINE 00:00:00 [facility] SARS-COV-2 COVID-19 2020-12-30 Completed Unive rsity of PFIZER VACCINE 00:00:00 [facility] SARS-COV-2 COVID-19 2020-12-30 Completed Unive rsity of PFIZER VACCINE 00:00:00 [facility] SARS-COV-2 COVID-19 2020-12-30 Completed Unive rsity of PFIZER VACCINE 00:00:00 [facility] SARS-COV-2 COVID-19 2020-12-30 Completed Unive rsity of PFIZER VACCINE 00:00:00 [facility] SARS-COV-2 COVID-19 2020-12-30 Completed Unive rsity of PFIZER VACCINE 00:00:00 [facility] SARS-COV-2 COVID-19 2020-12-30 Completed Unive rsity of PFIZER VACCINE 00:00:00 [facility] SARS-COV-2 COVID-19 2020-12-30 Completed Unive rsity of PFIZER VACCINE 00:00:00 [facility] SARS-COV-2 COVID-19 2020-12-30 Completed Unive [facility] PFIZER VACCINE 00:00:00 [facility] SARS-COV-2 COVID-19 2020-12-30 Completed [facility] PFIZER VACCINE 00:00:00 [facility] SARS-COV-2 COVID-19 2020-12-30 Completed [facility] PFIZER VACCINE 00:00:00 [facility] SARS-COV-2 COVID-19 2020-12-30 Completed [facility] PFIZER VACCINE 00:00:00 [facility] SARS-COV-2 COVID-19 2020-12-30 Completed [facility] PFIZER VACCINE 00:00:00 [facility] SARS-COV-2 COVID-19 2020-12-30 Completed [facility] PFIZER VACCINE 00:00:00 [facility] SARS-COV-2 COVID-19 2020-12-30 Completed [facility] PFIZER VACCINE 00:00:00 [facility] SARS-COV-2 COVID-19 2020-12-30 Completed [facility] PFIZER VACCINE 00:00:00 [facility] SARS-COV-2 COVID-19 2020-12-30 Completed [facility] PFIZER VACCINE 00:00:00 [facility] SARS-COV-2 COVID-19 2020-12-30 Completed [facility] PFIZER VACCINE 00:00:00 [facility] SARS-COV-2 COVID-19 2020-12-30 Completed [facility] PFIZER VACCINE 00:00:00 [facility] SARS-COV-2 COVID-19 2020-12-30 Completed [facility] PFIZER VACCINE 00:00:00 [facility] SARS-COV-2 COVID-19 2020-12-30 Completed [facility] PFIZER VACCINE 00:00:00 [facility] SARS-COV-2 COVID-19 2020-12-30 Completed [facility] PFIZER VACCINE 00:00:00 [facility] SARS-COV-2 COVID-19 2020-12-30 Completed [facility] PFIZER VACCINE 00:00:00 [facility] SARS-COV-2 COVID-19 2020-12-30 Completed [facility] PFIZER VACCINE 00:00:00 [facility] SARS-COV-2 COVID-19 2020-12-30 Completed [facility] PFIZER VACCINE 00:00:00 [facility] SARS-COV-2 COVID-19 2020-12-30 Completed [facility] PFIZER VACCINE 00:00:00 [facility] SARS-COV-2 COVID-19 2020-12-30 Completed [facility] PFIZER VACCINE 00:00:00 [facility] SARS-COV-2 COVID-19 2020-12-07 Completed [facility] PFIZER VACCINE 00:00:00 [facility] SARS-COV-2 COVID-19 2020-12-07 Completed [facility] PFIZER VACCINE 00:00:00 [facility] SARS-COV-2 COVID-19 2020-12-07 Completed [facility] PFIZER VACCINE 00:00:00 [facility] SARS-COV-2 COVID-19 2020-12-07 Completed [facility] PFIZER VACCINE 00:00:00 [facility] SARS-COV-2 COVID-19 2020-12-07 Completed [facility] PFIZER VACCINE 00:00:00 [facility] SARS-COV-2 COVID-19 2020-12-07 Completed [facility] PFIZER VACCINE 00:00:00 [facility] SARS-COV-2 COVID-19 2020-12-07 Completed [facility] PFIZER VACCINE 00:00:00 [facility] SARS-COV-2 COVID-19 2020-12-07 Completed [facility] PFIZER VACCINE 00:00:00 [facility] SARS-COV-2 COVID-19 2020-12-07 Completed [facility] PFIZER VACCINE 00:00:00 [facility] SARS-COV-2 COVID-19 2020-12-07 Completed [facility] PFIZER VACCINE 00:00:00 [facility] SARS-COV-2 COVID-19 2020-12-07 Completed [facility] PFIZER VACCINE 00:00:00 [facility] SARS-COV-2 COVID-19 2020-12-07 Completed [facility] PFIZER VACCINE 00:00:00 [facility] SARS-COV-2 COVID-19 2020-12-07 Completed [facility] PFIZER VACCINE 00:00:00 [facility] SARS-COV-2 COVID-19 2020-12-07 Completed [facility] PFIZER VACCINE 00:00:00 [facility] SARS-COV-2 COVID-19 2020-12-07 Completed [facility] PFIZER VACCINE 00:00:00 [facility] SARS-COV-2 COVID-19 2020-12-07 Completed [facility] PFIZER VACCINE 00:00:00 [facility] SARS-COV-2 COVID-19 2020-12-07 Completed [facility] PFIZER VACCINE 00:00:00 [facility] SARS-COV-2 COVID-19 2020-12-07 Completed [facility] PFIZER VACCINE 00:00:00 [facility] SARS-COV-2 COVID-19 2020-12-07 Completed [facility] PFIZER VACCINE 00:00:00 [facility] SARS-COV-2 COVID-19 2020-12-07 Completed [facility] PFIZER VACCINE 00:00:00 [facility] SARS-COV-2 COVID-19 2020-12-07 Completed [facility] PFIZER VACCINE 00:00:00 [facility] SARS-COV-2 COVID-19 2020-12-07 Completed [facility] PFIZER VACCINE 00:00:00 [facility] SARS-COV-2 COVID-19 2020-12-07 Completed [facility] PFIZER VACCINE 00:00:00 [facility] SARS-COV-2 COVID-19 2020-12-07 Completed [facility] PFIZER VACCINE 00:00:00 [facility] SARS-COV-2 COVID-19 2020-12-07 Completed [facility] PFIZER VACCINE 00:00:00 [facility] SARS-COV-2 COVID-19 2020-12-07 Completed [facility] PFIZER VACCINE 00:00:00 [facility] SARS-COV-2 COVID-19 2020-12-07 Completed [facility] PFIZER VACCINE 00:00:00 [facility] SARS-COV-2 COVID-19 2020-12-07 Completed [facility] PFIZER VACCINE 00:00:00 [facility] SARS-COV-2 COVID-19 2020-12-07 Completed [facility] PFIZER VACCINE 00:00:00 [facility] SARS-COV-2 COVID-19 2020-12-07 Completed [facility] PFIZER VACCINE 00:00:00 [facility] SARS-COV-2 COVID-19 2020-12-07 Completed [facility] PFIZER VACCINE 00:00:00 [facility] SARS-COV-2 COVID-19 2020-12-07 Completed [facility] PFIZER VACCINE 00:00:00 [facility] SARS-COV-2 COVID-19 2020-12-07 Completed [facility] PFIZER VACCINE 00:00:00 [facility] SARS-COV-2 COVID-19 2020-12-07 Completed [facility] PFIZER VACCINE 00:00:00 [facility] SARS-COV-2 COVID-19 2020-12-07 Completed [facility] PFIZER VACCINE 00:00:00 [facility] SARS-COV-2 COVID-19 2020-12-07 Completed [facility] PFIZER VACCINE 00:00:00 [facility] SARS-COV-2 COVID-19 2020-12-07 Completed [facility] PFIZER VACCINE 00:00:00 [facility] SARS-COV-2 COVID-19 2020-12-07 Completed [facility] PFIZER VACCINE 00:00:00 [facility] SARS-COV-2 COVID-19 2020-12-07 Completed [facility] PFIZER VACCINE 00:00:00 [facility] SARS-COV-2 COVID-19 2020-12-07 Completed [facility] PFIZER VACCINE 00:00:00 [facility] SARS-COV-2 COVID-19 2020-12-07 Completed [facility] PFIZER VACCINE 00:00:00 [facility] SARS-COV-2 COVID-19 2020-12-07 Completed [facility] PFIZER VACCINE 00:00:00 [facility] SARS-COV-2 COVID-19 2020-12-07 Completed [facility] PFIZER VACCINE 00:00:00 [facility] SARS-COV-2 COVID-19 2020-12-07 Completed [facility] PFIZER VACCINE 00:00:00 [facility] SARS-COV-2 COVID-19 2020-12-07 Completed [facility] PFIZER VACCINE 00:00:00 [facility] SARS-COV-2 COVID-19 2020-12-07 Completed [facility] PFIZER VACCINE 00:00:00 [facility] SARS-COV-2 COVID-19 2020-12-07 Completed [facility] PFIZER VACCINE 00:00:00 [facility] SARS-COV-2 COVID-19 2020-12-07 Completed [facility] PFIZER VACCINE 00:00:00 [facility] SARS-COV-2 COVID-19 2020-12-07 Completed [facility] PFIZER VACCINE 00:00:00 [facility] SARS-COV-2 COVID-19 2020-12-07 Completed [facility] PFIZER VACCINE 00:00:00 [facility] SARS-COV-2 COVID-19 2020-12-07 Completed [facility] PFIZER VACCINE 00:00:00 [facility] SARS-COV-2 COVID-19 2020-12-07 Completed [facility] PFIZER VACCINE 00:00:00 [facility] SARS-COV-2 COVID-19 2020-12-07 Completed [facility] PFIZER VACCINE 00:00:00 [facility] SARS-COV-2 COVID-19 2020-12-07 Completed [facility] PFIZER VACCINE 00:00:00 [facility] SARS-COV-2 COVID-19 2020-12-07 Completed [facility] PFIZER VACCINE 00:00:00 [facility] SARS-COV-2 COVID-19 2020-12-07 Completed [facility] PFIZER VACCINE 00:00:00 [facility] SARS-COV-2 COVID-19 2020-12-07 Completed [facility] PFIZER VACCINE 00:00:00 [facility] SARS-COV-2 COVID-19 2020-12-07 Completed [facility] PFIZER VACCINE 00:00:00 [facility] SARS-COV-2 COVID-19 2020-12-07 Completed [facility] PFIZER VACCINE 00:00:00 [facility] SARS-COV-2 COVID-19 2020-12-07 Completed [facility] PFIZER VACCINE 00:00:00 [facility] SARS-COV-2 COVID-19 2020-12-07 Completed [facility] PFIZER VACCINE 00:00:00 [facility] SARS-COV-2 COVID-19 2020-12-07 Completed [facility] PFIZER VACCINE 00:00:00 [facility] SARS-COV-2 COVID-19 2020-12-07 Completed [facility] PFIZER VACCINE 00:00:00 [facility] SARS-COV-2 COVID-19 2020-12-07 Completed [facility] PFIZER VACCINE 00:00:00 [facility] SARS-COV-2 COVID-19 2020-12-07 Completed [facility] PFIZER VACCINE 00:00:00 [facility] SARS-COV-2 COVID-19 2020-12-07 Completed [facility] PFIZER VACCINE 00:00:00 [facility] SARS-COV-2 COVID-19 2020-12-07 Completed [facility] PFIZER VACCINE 00:00:00 [facility] SARS-COV-2 COVID-19 2020-12-07 Completed [facility] PFIZER VACCINE 00:00:00 [facility] SARS-COV-2 COVID-19 2020-12-07 Completed [facility] PFIZER VACCINE 00:00:00 [facility] SARS-COV-2 COVID-19 2020-12-07 Completed [facility] PFIZER VACCINE 00:00:00 [facility] SARS-COV-2 COVID-19 2020-12-07 Completed [facility] PFIZER VACCINE 00:00:00 [facility] SARS-COV-2 COVID-19 2020-12-07 Completed [facility] PFIZER VACCINE 00:00:00 [facility] SARS-COV-2 COVID-19 2020-12-07 Completed [facility] PFIZER VACCINE 00:00:00 [facility] SARS-COV-2 COVID-19 2020-12-07 Completed [facility] PFIZER VACCINE 00:00:00 [facility] SARS-COV-2 COVID-19 2020-12-07 Completed [facility] PFIZER VACCINE 00:00:00 [facility] SARS-COV-2 COVID-19 2020-12-07 Completed [facility] PFIZER VACCINE 00:00:00 [facility] SARS-COV-2 COVID-19 2020-12-07 Completed [facility] PFIZER VACCINE 00:00:00 [facility] SARS-COV-2 COVID-19 2020-12-07 Completed [facility] PFIZER VACCINE 00:00:00 [facility] SARS-COV-2 COVID-19 2020-12-07 Completed [facility] PFIZER VACCINE 00:00:00 [facility] SARS-COV-2 COVID-19 2020-12-07 Completed [facility] PFIZER VACCINE 00:00:00 [facility] SARS-COV-2 COVID-19 2020-12-07 Completed [facility] PFIZER VACCINE 00:00:00 [facility] SARS-COV-2 COVID-19 2020-12-07 Completed [facility] PFIZER VACCINE 00:00:00 [facility] SARS-COV-2 COVID-19 2020-12-07 Completed [facility] PFIZER VACCINE 00:00:00 [facility] SARS-COV-2 COVID-19 2020-12-07 Completed [facility] PFIZER VACCINE 00:00:00 [facility] SARS-COV-2 COVID-19 2020-12-07 Completed [facility] PFIZER VACCINE 00:00:00 [facility] SARS-COV-2 COVID-19 2020-12-07 Completed [facility] PFIZER VACCINE 00:00:00 [facility] SARS-COV-2 COVID-19 2020-12-07 Completed [facility] PFIZER VACCINE 00:00:00 [facility] SARS-COV-2 COVID-19 2020-12-07 Completed [facility] PFIZER VACCINE 00:00:00 [facility] SARS-COV-2 COVID-19 2020-12-07 Completed [facility] PFIZER VACCINE 00:00:00 [facility] SARS-COV-2 COVID-19 2020-12-07 Completed [facility] PFIZER VACCINE 00:00:00 [facility] SARS-COV-2 COVID-19 2020-12-07 Completed [facility] PFIZER VACCINE 00:00:00 [facility] SARS-COV-2 COVID-19 2020-12-07 Completed [facility] PFIZER VACCINE 00:00:00 [facility] SARS-COV-2 COVID-19 2020-12-07 Completed [facility] PFIZER VACCINE 00:00:00 [facility] SARS-COV-2 COVID-19 2020-12-07 Completed [facility] PFIZER VACCINE 00:00:00 [facility] SARS-COV-2 COVID-19 2020-12-07 Completed [facility] PFIZER VACCINE 00:00:00 [facility] SARS-COV-2 COVID-19 2020-12-07 Completed [facility] PFIZER VACCINE 00:00:00 [facility] SARS-COV-2 COVID-19 2020-12-07 Completed [facility] PFIZER VACCINE 00:00:00 [facility] SARS-COV-2 COVID-19 2020-12-07 Completed [facility] PFIZER VACCINE 00:00:00 [facility] SARS-COV-2 COVID-19 2020-12-07 Completed [facility] PFIZER VACCINE 00:00:00 [facility] SARS-COV-2 COVID-19 2020-12-07 Completed [facility] PFIZER VACCINE 00:00:00 [facility] SARS-COV-2 COVID-19 2020-12-07 Completed [facility] PFIZER VACCINE 00:00:00 [facility] SARS-COV-2 COVID-19 2020-12-07 Completed [facility] PFIZER VACCINE 00:00:00 [facility] SARS-COV-2 COVID-19 2020-12-07 Completed [facility] PFIZER VACCINE 00:00:00 [facility] SARS-COV-2 COVID-19 2020-12-07 Completed [facility] PFIZER VACCINE 00:00:00 [facility] SARS-COV-2 COVID-19 2020-12-07 Completed [facility] PFIZER VACCINE 00:00:00 [facility] SARS-COV-2 COVID-19 2020-12-07 Completed [facility] PFIZER VACCINE 00:00:00 [facility] SARS-COV-2 COVID-19 2020-12-07 Completed [facility] PFIZER VACCINE 00:00:00 [facility] SARS-COV-2 COVID-19 2020-12-07 Completed [facility] PFIZER VACCINE 00:00:00 [facility] SARS-COV-2 COVID-19 2020-12-07 Completed [facility] PFIZER VACCINE 00:00:00 [facility] SARS-COV-2 COVID-19 2020-12-07 Completed [facility] PFIZER VACCINE 00:00:00 [facility] SARS-COV-2 COVID-19 2020-12-07 Completed [facility] PFIZER VACCINE 00:00:00 [facility] SARS-COV-2 COVID-19 2020-12-07 Completed [facility] PFIZER VACCINE 00:00:00 [facility] SARS-COV-2 COVID-19 2020-12-07 Completed [facility] PFIZER VACCINE 00:00:00 [facility] SARS-COV-2 COVID-19 2020-12-07 Completed [facility] PFIZER VACCINE 00:00:00 [facility] SARS-COV-2 COVID-19 2020-12-07 Completed [facility] PFIZER VACCINE 00:00:00 [facility] SARS-COV-2 COVID-19 2020-12-07 Completed [facility] PFIZER VACCINE 00:00:00 [facility] SARS-COV-2 COVID-19 2020-12-07 Completed [facility] PFIZER VACCINE 00:00:00 [facility] SARS-COV-2 COVID-19 2020-12-07 Completed [facility] PFIZER VACCINE 00:00:00 [facility] SARS-COV-2 COVID-19 2020-12-07 Completed [facility] PFIZER VACCINE 00:00:00 [facility] SARS-COV-2 COVID-19 2020-12-07 Completed [facility] PFIZER VACCINE 00:00:00 [facility] SARS-COV-2 COVID-19 2020-12-07 Completed [facility] PFIZER VACCINE 00:00:00 [facility] SARS-COV-2 COVID-19 2020-12-07 Completed [facility] PFIZER VACCINE 00:00:00 [facility] SARS-COV-2 COVID-19 2020-12-07 Completed [facility] PFIZER VACCINE 00:00:00 [facility] SARS-COV-2 COVID-19 2020-12-07 Completed [facility] PFIZER VACCINE 00:00:00 [facility] SARS-COV-2 COVID-19 2020-12-07 Completed [facility] PFIZER VACCINE 00:00:00 [facility] SARS-COV-2 COVID-19 2020-12-07 Completed [facility] PFIZER VACCINE 00:00:00 [facility] SARS-COV-2 COVID-19 2020-12-07 Completed [facility] PFIZER VACCINE 00:00:00 [facility] SARS-COV-2 COVID-19 2020-12-07 Completed [facility] PFIZER VACCINE 00:00:00 [facility] SARS-COV-2 COVID-19 2020-12-07 Completed [facility] PFIZER VACCINE 00:00:00 [facility] SARS-COV-2 COVID-19 2020-12-07 Completed [facility] PFIZER VACCINE 00:00:00 [facility] SARS-COV-2 COVID-19 2020-12-07 Completed [facility] PFIZER VACCINE 00:00:00 [facility] SARS-COV-2 COVID-19 2020-12-07 Completed [facility] PFIZER VACCINE 00:00:00 [facility] SARS-COV-2 COVID-19 2020-12-07 Completed [facility] PFIZER VACCINE 00:00:00 [facility] SARS-COV-2 COVID-19 2020-12-07 Completed [facility] PFIZER VACCINE 00:00:00 [facility] SARS-COV-2 COVID-19 2020-12-07 Completed [facility] PFIZER VACCINE 00:00:00 [facility] SARS-COV-2 COVID-19 2020-12-07 Completed [facility] PFIZER VACCINE 00:00:00 [facility] SARS-COV-2 COVID-19 2020-12-07 Completed [facility] PFIZER VACCINE 00:00:00 [facility] SARS-COV-2 COVID-19 2020-12-07 Completed [facility] PFIZER VACCINE 00:00:00 [facility] SARS-COV-2 COVID-19 2020-12-07 Completed [facility] PFIZER VACCINE 00:00:00 [facility] SARS-COV-2 COVID-19 2020-12-07 Completed [facility] PFIZER VACCINE 00:00:00 [facility] SARS-COV-2 COVID-19 2020-12-07 Completed [facility] PFIZER VACCINE 00:00:00 [facility] SARS-COV-2 COVID-19 2020-12-07 Completed [facility] PFIZER VACCINE 00:00:00 [facility] SARS-COV-2 COVID-19 2020-12-07 Completed [facility] PFIZER VACCINE 00:00:00 [facility] SARS-COV-2 COVID-19 2020-12-07 Completed [facility] PFIZER VACCINE 00:00:00 [facility] SARS-COV-2 COVID-19 2020-12-07 Completed [facility] PFIZER VACCINE 00:00:00 [facility] SARS-COV-2 COVID-19 2020-12-07 Completed [facility] PFIZER VACCINE 00:00:00 [facility] SARS-COV-2 COVID-19 2020-12-07 Completed [facility] PFIZER VACCINE 00:00:00 [facility] SARS-COV-2 COVID-19 2020-12-07 Completed [facility] PFIZER VACCINE 00:00:00 [facility] SARS-COV-2 COVID-19 2020-12-07 Completed [facility] PFIZER VACCINE 00:00:00 [facility] SARS-COV-2 COVID-19 2020-12-07 Completed [facility] PFIZER VACCINE 00:00:00 [facility] SARS-COV-2 COVID-19 2020-12-07 Completed [facility] PFIZER VACCINE 00:00:00 [facility] SARS-COV-2 COVID-19 2020-12-07 Completed [facility] PFIZER VACCINE 00:00:00 [facility] SARS-COV-2 COVID-19 2020-12-07 Completed [facility] PFIZER VACCINE 00:00:00 [facility] SARS-COV-2 COVID-19 2020-12-07 Completed [facility] PFIZER VACCINE 00:00:00 [facility] SARS-COV-2 COVID-19 2020-12-07 Completed [facility] PFIZER VACCINE 00:00:00 [facility] SARS-COV-2 COVID-19 2020-12-07 Completed [facility] PFIZER VACCINE 00:00:00 [facility] SARS-COV-2 COVID-19 2020-12-07 Completed [facility] PFIZER VACCINE 00:00:00 [facility] SARS-COV-2 COVID-19 2020-12-07 Completed [facility] PFIZER VACCINE 00:00:00 [facility] SARS-COV-2 COVID-19 2020-12-07 Completed [facility] PFIZER VACCINE 00:00:00 [facility] SARS-COV-2 COVID-19 2020-12-07 Completed [facility] PFIZER VACCINE 00:00:00 [facility] Influenza Virus 2020-08-16 Completed Melinda Alves ybold - Vaccine, No [...] as [facility] [place] [facility] Influenza Virus 2018-08-22 Completed Melinda vasquez - Vaccine, No Preserv, 00:00:00 [facility] 6 months and up Influenza Virus 2018-08-22 Completed [facility] 00:00:00 [facility] Influenza Virus 2018-08-22 Completed [facility] 3[facility] 00:00:00 [facility] Influenza Virus 2018-08-22 Completed [facility] 3+ 00[facility]00:00 [facility] Influenza Virus 2018-08-22 Completed [facility] 3+ 00:00:00 [facility] Influenza Virus 2018-08-22 Completed [facility] 3+ 00:00: [facility] Influenza Virus 2018-08-22 Completed [facility] 3+ 00:00: [facility] Influenza Virus 2018-08-22 Completed [facility] 3+ 00:00:00 [facility] Influenza Virus 2018-08-22 Completed [facility] 3+ 00:00: [facility] Influenza Virus 2018-08-22 Completed [facility] 3+ 00:00:00 [facility] Influenza Virus 2018-08-22 Completed [facility] 3+ 00:00: [facility] Influenza Virus 2018-08-22 Completed [facility] 3+ 00:00:00 [facility] Influenza Virus 2018-08-22 Completed [facility] 3+ 00:00:00 [facility] Influenza Virus 2018-08-22 Completed [facility] 3+ 00:00:00 [facility] Influenza Virus 2018-08-22 Completed [facility] 3+ 00:00:00 [facility] Influenza Virus 2018-08-22 Completed [facility] 3+ 00:00:00 [facility] Influenza Virus 2018-08-22 Completed [facility]+ 00:00:00 [facility] Influenza Virus 2018-08-22 Completed [facility]+ 00:00:00 [facility] Influenza Virus 2018-08-22 Completed [facility]+ 00:00:00 [facility] Influenza Virus 2018-08-22 Completed [facility] 3+ 00:00:00 [facility] Influenza Virus 2018-08-22 Completed [facility] 3+ 00:00:00 [facility] Influenza Virus 2018-08-22 Completed [facility] 3+ 00:00:00 [facility] Influenza Virus 2018-08-22 Completed [facility] 3+ 00[facility]00:00 [facility] Influenza Virus 2018-08-22 Completed [facility] Vaccine [facility] IM 3+ 00:00:00 [facility] Influenza Virus 2018-08-22 Completed [facility] Vaccine [facility] IM 3+ 00:00:00 [facility] Influenza Virus 2018-08-22 Completed [facility] Vaccine Quad IM 3+ 00:00:00 [facility] Influenza Virus 2018-08-22 Completed [facility] Vaccine Quad IM 3+ 00:00:00 [facility] Influenza Virus 2018-08-22 Completed [facility] Vaccine Quad IM 3+ 00:00:00 [facility] Influenza Virus 2018-08-22 Completed [facility] Vaccine Quad IM 3+ 00:00:00 [facility] Influenza Virus 2018-08-22 Completed [facility] Vaccine Quad IM 3+ 00:00:00 [facility] Influenza Virus 2018-08-22 Completed [facility] Vaccine Quad IM 3+ 00:00:00 [facility] Influenza Virus 2018-08-22 Completed [facility] Vaccine Quad IM 3+ 00:00:00 [facility] Influenza Virus 2018-08-22 Completed [facility] Vaccine Quad IM 3+ 00:00:00 [facility] Influenza Virus 2018-08-22 Completed [facility] Vaccine Quad IM 3+ 00:00:00 [facility] Influenza Virus 2018-08-22 Completed [facility] Vaccine Quad IM 3+ 00:00:00 [facility] Influenza Virus 2018-08-22 Completed [facility] Vaccine Quad IM 3+ 00:00:00 [facility] Influenza Virus 2018-08-22 Completed [facility] Vaccine Quad IM 3+ 00:00:00 [facility] Influenza Virus 2018-08-22 Completed [facility] Vaccine Quad IM 3+ 00:00:00 [facility] Influenza Virus 2018-08-22 Completed [facility] Vaccine Quad IM 3+ 00:00:00 [facility] Influenza Virus 2018-08-22 Completed [facility] Vaccine Quad IM 3+ 00:00:00 [facility] Influenza Virus 2018-08-22 Completed [facility] Vaccine Quad IM 3+ 00:00:00 [facility] Influenza Virus 2018-08-22 Completed [facility] Vaccine Quad IM 3+ 00:00:00 [facility] Influenza Virus 2018-08-22 Completed [facility] Vaccine Quad IM 3+ 00:00:00 [facility] Influenza Virus 2018-08-22 Completed [facility] Vaccine Quad IM 3+ 00:00:00 [facility] Influenza Virus 2018-08-22 Completed [facility] Vaccine Quad IM 3+ 00:00:00 [facility] Influenza Virus 2018-08-22 Completed [facility] Vaccine Quad IM 3+ 00:00:00 [facility] Influenza Virus 2018-08-22 Completed [facility] Vaccine Quad IM 3+ 00:00:00 [facility] Influenza Virus 2018-08-22 Completed [facility] Vaccine Quad IM 3+ 00:00:00 [facility] Influenza Virus 2018-08-22 Completed [facility] Vaccine Quad IM 3+ 00:00:00 [facility] Influenza Virus 2018-08-22 Completed [facility] Vaccine Quad IM 3+ 00:00:00 [facility] Influenza Virus 2018-08-22 Completed [facility] Vaccine [facility] IM 3+ 00:00:00 [facility] Influenza Virus 2018-08-22 Completed [facility] Vaccine Quad IM 3+ 00:00:00 [facility] Influenza Virus 2018-08-22 Completed [facility] Vaccine Quad IM 3+ 00:00:00 [facility] Influenza Virus 2018-08-22 Completed [facility] Vaccine Quad IM 3+ 00:00:00 [facility] Influenza Virus 2018-08-22 Completed [facility] Vaccine Quad IM 3+ 00:00:00 [facility] Influenza Virus 2018-08-22 Completed [facility] Vaccine Quad IM 3+ 00:00:00 [facility] Influenza Virus 2018-08-22 Completed [facility] Vaccine Quad IM 3+ 00:00:00 [facility] Influenza Virus 2018-08-22 Completed [facility] Vaccine Quad IM 3+ 00:00:00 [facility] Influenza Virus 2018-08-22 Completed [facility] Vaccine Quad IM 3+ 00:00:00 [facility] Influenza Virus 2018-08-22 Completed [facility] Vaccine Quad IM 3+ 00:00:00 [facility] Influenza Virus 2018-08-22 Completed [facility] Vaccine Quad IM 3+ 00:00:00 [facility] Influenza Virus 2018-08-22 Completed [facility] Vaccine Quad IM 3+ 00:00:00 [facility] Influenza Virus 2018-08-22 Completed [facility] Vaccine Quad IM 3+ 00:00:00 [facility] Influenza Virus 2018-08-22 Completed [facility] Vaccine Quad IM 3+ 00:00:00 [facility] Influenza Virus 2018-08-22 Completed [facility] Vaccine Quad IM 3+ 00:00:00 [facility] Influenza Virus 2018-08-22 Completed [facility] Vaccine Quad IM 3+ 00:00:00 [facility] Influenza Virus 2018-08-22 Completed [facility] Vaccine Quad IM 3+ 00:00:00 [facility] Influenza Virus 2018-08-22 Completed [facility] Vaccine Quad IM 3+ 00:00:00 [facility] Influenza Virus 2018-08-22 Completed [facility] Vaccine Quad IM 3+ 00:00:00 [facility] Influenza Virus 2018-08-22 Completed [facility] Vaccine Quad IM 3+ 00:00:00 [facility] Influenza Virus 2018-08-22 Completed [facility] Vaccine Quad IM 3+ 00:00:00 [facility] Influenza Virus 2018-08-22 Completed [facility] Vaccine Quad IM 3+ 00:00:00 [facility] Influenza Virus 2018-08-22 Completed [facility] Vaccine Quad IM 3+ 00:00:00 [facility] Influenza Virus 2018-08-22 Completed [facility] Vaccine Quad IM 3+ 00:00:00 [facility] Influenza Virus 2018-08-22 Completed [facility] Vaccine Quad IM 3+ 00:00:00 [facility] Influenza Virus 2018-08-22 Completed [facility] Vaccine Quad IM 3+ 00:00:00 [facility] Influenza Virus 2018-08-22 Completed [facility] Vaccine Quad IM 3+ 00:00:00 [facility] Influenza Virus 2018-08-22 Completed [facility] Vaccine Quad IM 3+ 00:00:00 [facility] Influenza Virus 2018-08-22 Completed [facility] Vaccine Quad IM 3+ 00:00:00 [facility] Influenza Virus 2018-08-22 Completed [facility] Vaccine [facility] IM 3+ 00:00:00 [facility] Influenza Virus 2018-08-22 Completed [facility] Vaccine [facility] IM 3+ 00:00:00 [facility] Pneumococcal Vaccine, 2017-11-23 Completed Roshan Drew - [...] dical (Prevnar 13) Branch pneumococcal 2013-11-30 Completed [facility] stone 23-valent vaccine 22:02:00 Pneumococcal Vaccine, 2013-11-30 Completed [...] PPSV23 (PNEUMOVAX) Branch influenza virus 2013-11-26 Completed [facility] vaccine, inactivated 23:20:00 Influenza Virus 2013-11-26 Completed Melinda vasquez - Vaccine, Unspecified 00:00:00 [facility] r[facility] Formulation Influenza Virus 2013-11-26 Completed [facility] Vaccine 00:00:00 [facility] Influenza Virus 2013-11-26 Completed [facility] Vaccine 00:00:00 [facility] Influenza Virus 2013-11-26 Completed [facility] Vaccine 00:00:00 [facility] Influenza Virus 2013-11-26 Completed [facility] Vaccine 00:00:00 [facility] Influenza Virus 2013-11-26 Completed [facility] Vaccine 00:00:00 [facility] Influenza Virus 2013-11-26 Completed [facility] Vaccine 00:00:00 [facility] Influenza Virus 2013-11-26 Completed [facility] Vaccine 00:00:00 [facility] Influenza Virus 2013-11-26 Completed [facility] Vaccine 00:00:00 [facility] Influenza Virus 2013-11-26 Completed [facility] Vaccine 00:00:00 [facility] Influenza Virus 2013-11-26 Completed [facility] Vaccine 00:00:00 [facility] Influenza Virus 2013-11-26 Completed [facility] Vaccine 00:00:00 [facility] Influenza Virus 2013-11-26 Completed [facility] Vaccine 00:00:00 [facility] Influenza Virus 2013-11-26 Completed [facility] Vaccine 00:00:00 [facility] Influenza Virus 2013-11-26 Completed [facility] Vaccine 00:00:00 [facility] Influenza Virus 2013-11-26 Completed [facility] Vaccine 00:00:00 [facility] Influenza Virus 2013-11-26 Completed [facility] Vaccine 00:00:00 [facility] Influenza Virus 2013-11-26 Completed [facility] Vaccine 00:00:00 [facility] Influenza Virus 2013-11-26 Completed [facility] Vaccine 00:00:00 [facility] Influenza Virus 2013-11-26 Completed [facility] Vaccine 00:00:00 [facility] Influenza Virus 2013-11-26 Completed [facility] Vaccine 00:00:00 [facility] Influenza Virus 2013-11-26 Completed [facility] Vaccine 00:00:00 [facility] Influenza Virus 2013-11-26 Completed [facility] Vaccine 00:00:00 [facility] Influenza Virus 2013-11-26 Completed [facility] Vaccine 00:00:00 [facility] Influenza Virus 2013-11-26 Completed [facility] Vaccine 00:00:00 [facility] Influenza Virus 2013-11-26 Completed [facility] Vaccine 00:00:00 [facility] Influenza Virus 2013-11-26 Completed [facility] Vaccine 00:00:00 [facility] Influenza Virus 2013-11-26 Completed [facility] Vaccine 00:00:00 [facility] Influenza Virus 2013-11-26 Completed [facility] Vaccine 00:00:00 [facility] Influenza Virus 2013-11-26 Completed [facility] Vaccine 00:00:00 [facility] Influenza Virus 2013-11-26 Completed [facility] Vaccine 00:00:00 [facility] Influenza Virus 2013-11-26 Completed [facility] Vaccine 00:00:00 [facility] Influenza Virus 2013-11-26 Completed [facility] Vaccine 00:00:00 [facility] Influenza Virus 2013-11-26 Completed [facility] Vaccine 00:00:00 [facility] Influenza Virus 2013-11-26 Completed [facility] Vaccine 00:00:00 [facility] Influenza Virus 2013-11-26 Completed [facility] Vaccine 00:00:00 [facility] Influenza Virus 2013-11-26 Completed [facility] Vaccine 00:00:00 [facility] Influenza Virus 2013-11-26 Completed [facility] Vaccine 00:00:00 [facility] Influenza Virus 2013-11-26 Completed [facility] Vaccine 00:00:00 [facility] Influenza Virus 2013-11-26 Completed [facility] Vaccine 00:00:00 [facility] Influenza Virus 2013-11-26 Completed [facility] Vaccine 00:00:00 [facility] Influenza Virus 2013-11-26 Completed [facility] Vaccine 00:00:00 [facility] Influenza Virus 2013-11-26 Completed [facility] Vaccine 00:00:00 [facility] Influenza Virus 2013-11-26 Completed [facility] Vaccine 00:00:00 [facility] Influenza Virus 2013-11-26 Completed [facility] Vaccine 00:00:00 [facility] Influenza Virus 2013-11-26 Completed [facility] Vaccine 00:00:00 [facility] Influenza Virus 2013-11-26 Completed [facility] Vaccine 00:00:00 [facility] Influenza Virus 2013-11-26 Completed [facility] Vaccine 00:00:00 [facility] Influenza Virus 2013-11-26 Completed [facility] Vaccine 00:00:00 [facility] Influenza Virus 2013-11-26 Completed [facility] Vaccine 00:00:00 [facility] Influenza Virus 2013-11-26 Completed [facility] Vaccine 00:00:00 [facility] Influenza Virus 2013-11-26 Completed [facility] Vaccine 00:00:00 [facility] Influenza Virus 2013-11-26 Completed [facility] Vaccine 00:00:00 [facility] Influenza Virus 2013-11-26 Completed [facility] Vaccine 00:00:00 [facility] Influenza Virus 2013-11-26 Completed [facility] Vaccine 00:00:00 [facility] Influenza Virus 2013-11-26 Completed [facility] Vaccine 00:00:00 [facility] Influenza Virus 2013-11-26 Completed [facility] Vaccine 00:00:00 [facility] Influenza Virus 2013-11-26 Completed [facility] Vaccine 00:00:00 [facility] Influenza Virus 2013-11-26 Completed [facility] Vaccine 00:00:00 [facility] Influenza Virus 2013-11-26 Completed [facility] Vaccine 00:00:00 [facility] Influenza Virus 2013-11-26 Completed [facility] Vaccine 00:00:00 [facility] Influenza Virus 2013-11-26 Completed [facility] Vaccine 00:00:00 [facility] Influenza Virus 2013-11-26 Completed [facility] Vaccine 00:00:00 [facility] Influenza Virus 2013-11-26 Completed [facility] Vaccine 00:00:00 [facility] Influenza Virus 2013-11-26 Completed [facility] Vaccine 00:00:00 [facility] Influenza Virus 2013-11-26 Completed [facility] Vaccine 00:00:00 [facility] Influenza Virus 2013-11-26 Completed [facility] Vaccine 00:00:00 [facility] Influenza Virus 2013-11-26 Completed [facility] Vaccine 00:00:00 [facility] Influenza Virus 2013-11-26 Completed [facility] Vaccine 00:00:00 [facility] Influenza Virus 2013-11-26 Completed [facility] Vaccine 00:00:00 [facility] Influenza Virus 2013-11-26 Completed [facility] Vaccine 00:00:00 [facility] Influenza Virus 2013-11-26 Completed [facility] Vaccine 00:00:00 [facility] Influenza Virus 2013-11-26 Completed [facility] Vaccine 00:00:00 [facility] Influenza Virus 2013-11-26 Completed [facility] Vaccine 00:00:00 [facility] Influenza Virus 2013-11-26 Completed [facility] Vaccine 00:00:00 [facility] Influenza Virus 2013-11-26 Completed [facility] Vaccine 00:00:00 [facility] Influenza Virus 2013-11-26 Completed [facility] Vaccine 00:00:00 [facility] Influenza Virus 2013-11-26 Completed [facility] Vaccine 00:00:00 [facility] Influenza Virus 2013-11-26 Completed [facility] Vaccine 00:00:00 [facility] Influenza Virus 2013-11-26 Completed [facility] Vaccine 00:00:00 [facility] Influenza Virus 2013-11-26 Completed [facility] Vaccine 00:00:00 [facility] Vital Signs Vital Name Observation Time Observation Value Comments Source Systolic blood 2023-01-23 104 mm[Hg] [facility] pressure 14:09:00 Diastolic blood 2023-01-23 73 mm[Hg] [facility] pressure 14:09:00 Heart rate 2023-01-23 98 /min [facility] 14:09:00 Body temperature 2023-01-23 36.67 Nusrat [facility] 14:09:00 Respiratory rate 2023-01-23 18 /min [facility] 14:09:00 Body height 2023-01-23 147.3 cm [facility] 14:09:00 Body weight 2023-01-23 75.297 kg [facility] 14:09:00 BMI 2023-01-23 34.69 kg/m2 [facility] 14:09:00 Oxygen saturation 2023-01-23 97 /min [facility] in Arterial blood 14:09:00 by Pulse oximetry Systolic blood 2023-01-15 127 mm[Hg] [facility] pressure 18:21:00 [facility] Diastolic blood 2023-01-15 81 mm[Hg] University o f pressure 18:21:00 [facility] Heart rate 2023-01-15 78 /min University 18:21:00 [facility] Body temperature 2023-01-15 36.83 Nusrat University 18:21:00 [facility] Body height 2023-01-15 147.3 cm University of 18:21:00 [facility] Body weight 2023-01-15 75.297 kg University of 18:21:00 [facility] BMI 2023-01-15 34.69 kg/m2 University of 18:21:00 [facility] Systolic blood 2022-12-31 114 mm[Hg] Melinda Seybol d - pressure 14:32:00 External Diastolic blood 2022-12-31 70 mm[Hg] Melinda Seybo ld - pressure 14:32:00 External Heart rate 2022-12-31 101 /min Melinda Seybold - 14:32:00 External Body temperature 2022-12-31 36 Nusrat Melinda Alvesyb old - 14:32:00 External Respiratory rate 2022-12-31 14 /min Melinda Seyb old - 14:32:00 External Body height 2022-12-31 147.3 cm Melinda Seybold - 14:32:00 External Body weight 2022-12-31 74.844 kg Melidna Seybold - 14:32:00 External BMI 2022-12-31 34.49 kg/m2 Melinda Seybold - 14:32:00 External Body weight 2022-11-26 72.122 kg Melinda Seybold - 16:08:00 External BMI 2022-11-26 33.23 kg/m2 Melinda Seybold - 16:08:00 External Systolic blood 2022-11-15 118 mm[Hg] Melinda Seybol d - pressure 15:26:00 External Diastolic blood 2022-11-15 80 mm[Hg] Melinda Seybo ld - pressure 15:26:00 External Heart rate 2022-11-15 85 /min Melinda Alvesybold - 15:26:00 External Body temperature 2022-11-15 36.67 Nusrat Melinda Alvesyb old - 15:26:00 External Body height 2022-11-15 147.3 cm Melinda Seybold - 15:26:00 External Body weight 2022-11-15 72.122 kg Melinda Seybold - 15:26:00 External BMI 2022-11-15 33.23 kg/m2 Melinda Seybold - 15:26:00 External Systolic blood 2022-11-06 107 mm[Hg] [facility] pressure 16:07:00 [facility] Diastolic blood 2022-11-06 71 mm[Hg] University o f pressure 16:07:00 [facility] Heart rate 2022-11-06 91 /min University of 16:07:00 [facility] Body temperature 2022-11-06 36.72 Nusrat University of 16:07:00 [facility] Respiratory rate 2022-11-06 18 /min University of 16:07:00 [facility] Body height 2022-11-06 147.3 cm University of 16:07:00 [facility] Body weight 2022-11-06 72.213 kg University of 16:07:00 [facility] BMI 2022-11-06 33.27 kg/m2 University of 16:07:00 [facility] Systolic blood 2022-10-29 121 mm[Hg] Melinda Seybol d - pressure 21:12:00 External Diastolic blood 2022-10-29 76 mm[Hg] Melinda Alvesybo ld - pressure 21:12:00 External Heart rate 2022-10-29 100 /min Melinda ybold - 21:12:00 External Body temperature 2022-10-29 36.94 Nusrat Melinda Snyder old - 21:12:00 External Respiratory rate 2022-10-29 14 /min Melinda Snyder old - 21:12:00 External Body height 2022-10-29 149.9 cm Melinda ybold - 21:12:00 External Body weight 2022-10-29 63.504 kg Melinda ybold - 21:12:00 External BMI 2022-10-29 28.28 kg/m2 Melinda Seybold - 21:12:00 External Oxygen saturation 2022-10-29 99 /min Melinda ortiz - in Arterial blood 21:12:00 External by Pulse oximetry Systolic blood 2022-10-23 121 mm[Hg] [facility] pressure 15:32:00 Diastolic blood 2022-10-23 83 mm[Hg] [facility] pressure 15:32:00 Heart rate 2022-10-23 80 [...] External Diastolic blood 2022-10-02 74 mm[Hg] Melinda Snydero ld - pressure 19:49:00 External Heart rate 2022-10-02 75 /min Melinda Drew - 19:49:00 External Body temperature 2022-10-02 36.72 Nusrat Melinda Snyder old - 19:49:00 External Respiratory rate 2022-10-02 14 /min Melinda Snyder old - 19:49:00 External Body height 2022-10-02 149.9 cm Melinda Drew - :49:00 External Body weight 2022-10-02 67.586 kg Melinda Drew - :49:00 External BMI 2022-10-02 30.09 kg/m2 Melinda Drew - :49:00 External Oxygen saturation 2022-10-02 97 /min Melinda Iglesias bold - in Arterial blood 19:49:00 External by Pulse oximetry Systolic blood 2022-08-08 154 mm[Hg] [facility] pressure 18:03:00 [facility] Diastolic blood 2022-08-08 94 mm[Hg] University o f pressure 18:03:00 [facility] Heart rate 2022-08-08 77 /min University of 17:52:00 [facility] Body temperature 2022-08-08 36.78 Nusrat University of 17:52:00 [facility] Body height 2022-08-08 147.3 cm University of 17:52:00 [facility] Body weight 2022-08-08 70.217 kg University of 17:52:00 [facility] BMI 2022-08-08 32.35 kg/m2 University of 17:52:00 [facility] Systolic blood 2022-07-24 121 mm[Hg] [facility] pressure 19:34:00 [facility] Diastolic blood 2022-07-24 75 mm[Hg] [facility] f pressure 19:34:00 [facility] Heart rate 2022-07-24 80 /min University of 19:34:00 [facility] Body temperature 2022-07-24 37.06 Nusrat University of 19:34:00 [facility] Respiratory rate 2022-07-24 17 /min University of 19:34:00 [facility] Body height 2022-07-24 147.3 cm University of 19:34:00 [facility] Body weight 2022-07-24 71.033 kg University of 19:34:00 [facility] BMI 2022-07-24 32.73 kg/m2 University of 19:34:00 [facility] Oxygen saturation 2022-07-24 93 /min University of in Arterial blood 19:34:00 [facility] by Pulse oximetry Branch Systolic blood 2022-07-20 113 mm[Hg] [facility] pressure 19:02:00 [facility] Diastolic blood 2022-07-20 80 mm[Hg] University o f pressure 19:02:00 [facility] Heart rate 2022-07-20 88 /min University of 19:02:00 [facility] Body temperature 2022-07-20 36.67 Nusrat University of 19:02:00 [facility] Respiratory rate 2022-07-20 18 /min University of 19:02:00 [facility] Body height 2022-07-20 147.3 cm University 19:02:00 [facility] Body weight 2022-07-20 71.215 kg University of 19:02:00 [facility] BMI 2022-07-20 32.81 kg/m2 University of 19:02:00 [facility] Oxygen saturation 2022-07-20 97 /min [place] [facility] in Arterial blood 19:02:00 [facility] by Pulse oximetry Branch Systolic blood 2022-07-18 113 mm[Hg] [facility] pressure 14:15:00 Diastolic blood 2022-07-18 77 mm[Hg] [facility] pressure 14:15:00 Heart rate 2022-07-18 77 /min [facility] 14:15:00 Body temperature 2022-07-18 36.44 Nusrat [facility] 14:15:00 Respiratory rate 2022-07-18 18 /min [facility] 14:15:00 Body height 2022-07-18 147.3 cm [facility] 14:15:00 Body weight 2022-07-18 71.668 kg [facility] 14:15:00 BMI 2022-07-18 33.02 kg/m2 [facility] 14:15:00 Oxygen saturation 2022-07-18 96 /min [facility] in Arterial blood 14:15:00 by Pulse oximetry Systolic blood 2022-06-15 125 mm[Hg] [facility] pressure 16:34:00 [facility] Diastolic blood 2022-06-15 80 mm[Hg] [facility] o f pressure 16:34:00 [facility] Heart rate 2022-06-15 78 /min University 16:34:00 [facility] Respiratory rate 2022-06-15 18 /min University 16:34:00 [facility] Body weight 2022-06-15 71.215 kg University 16:34:00 [facility] BMI 2022-06-15 32.81 kg/m2 University 16:34:00 [facility] Oxygen saturation 2022-06-15 96 /min [facility] of in Arterial blood 16:34:00 [facility] by Pulse oximetry Branch Systolic blood 2022-06-08 123 mm[Hg] [facility] pressure 19:55:00 [facility] Diastolic blood 2022-06-08 76 mm[Hg] [facility] o f pressure 19:55:00 [facility] Heart rate 2022-06-08 80 /min University 19:55:00 [facility] Body temperature 2022-06-08 36.83 Nusrat University 19:55:00 [facility] Respiratory rate 2022-06-08 18 /min University 19:55:00 [facility] Body height 2022-06-08 147.3 cm University 19:55:00 [facility] Body weight 2022-06-08 73.483 kg University 19:55:00 [facility] BMI 2022-06-08 33.86 kg/m2 University 19:55:00 [facility] Oxygen saturation 2022-06-08 97 /min [employer] [facility] in Arterial blood 19:55:00 [facility] by Pulse oximetry Branch BP Systolic 2018-02-03 108 mm[Hg] Location: [place]; [place] [facility] 08:49:00 Position: Sitting BP Diastolic 2018-02-03 77 mm[Hg] Location: [place] 08:49:00 Position: Sitting Height 2018-02-03 57 [in_us] [facility] 08:49:00 Weight 2018-02-03 160.2 [lb_av] [facility] 08:49:00 Body Mass Index 2018-02-03 34.67 [...] Physicians 10:30:00 Brachial Artery; Respitory Rate 2017-01-05 [facility] Herm tee 11:25:00 Systolic (mm Hg) 2017-01-05 [facility] rmann 11:25:00 Diastolic (mm Hg) 2017-01-05 [facility] ermann 11:25:00 Temperature Oral 2017-01-05 97.8 F [facility] rmann (F) 11:25:00 Respitory Rate 2017-01-05 [facility] Herm tee 09:56:00 Systolic (mm Hg) 2017-01-05 [...] tee 03:18:00 Temperature Oral 2014-03-21 97.8 F [facility] He rmann (F) 03:18:00 Heart Rate 2014-03-21 [...] rmann 08:54:00 Temperature Oral 2014-03-19 98.0 F [facility] rmann (F) 08:54:00 Heart Rate 2014-03-19 [facility] 08[facility] Diastolic (mm Hg) 2014-03-19 [facility] 08:54:00 Diastolic (mm Hg) 2014-03-19 [facility] 04:44:00 Systolic (mm Hg) 2014-03-19 [facility] 04:44:00 Temperature Oral 2014-03-19 97.3 F [facility] Vaibhav rmann (F) 04:44:00 Respitory Rate 2014-03-19 [...] tee 17:57:00 Temperature Oral 2014-01-01 98.4 F [facility] Vaibhav rmann (F) 17:57:00 Diastolic (mm Hg) 2014-01-01 [facility] ermann 12:31:00 Systolic (mm Hg) 2014-01-01 [facility] 12:31:00 Heart Rate 2014-01-01 [facility] 12:31:00 Respitory Rate 2014-01-01 [facility] tee 10:55:00 Temperature Oral 2014-01-01 98.8 F [facility] (F) 10:55:00 Systolic (mm Hg) 2014-01-01 [facility] 10:55:00 Diastolic (mm Hg) 2014-01-01 [facility] H ermann 10:55:00 Heart Rate 2014-01-01 [facility] 10:55:00 Respitory Rate 2014-01-01 [facility] tee 03:47:00 Temperature Oral 2014-01-01 98.4 F [facility] Vaibhav rmann (F) 03:47:00 Height 2013-12-01 147.32 cm [facility] 00:06:00 BMI Calculated 2013-12-01 [facility] tee 00:06:00 Weight 2013-12-01 [facility] 00:06:00 Systolic (mm Hg) 2013-11-30 [facility] 20:32:00 Heart Rate 2013-11-30 [facility] 20:32:00 Respitory Rate 2013-11-30 [facility] tee 20:32:00 Temperature Oral 2013-11-30 98.0 F [facility] Vaibhav rmann (F) 20:32:00 Diastolic (mm Hg) 2013-11-30 [facility] 20:32:00 Respitory Rate 2013-11-30 [facility] tee 17:01:00 Diastolic (mm Hg) 2013-11-30 [facility] 17:01:00 Temperature Oral 2013-11-30 98.0 F [facility] Vaibhav rmann (F) 17:01:00 Heart Rate 2013-11-30 [facility] 17:01:00 Systolic (mm Hg) 2013-11-30 [facility] 17:01:00 Respitory Rate 2013-11-30 [facility] tee 13:37:00 Diastolic (mm Hg) 2013-11-30 [facility] 13:37:00 Systolic (mm Hg) 2013-11-30 [facility] 13:37:00 Heart Rate 2013-11-30 [facility] 13:37:00 Temperature Oral 2013-11-30 97.3 F [facility] Vaibhav rmann (F) 13:37:00 Weight 2013-11-26 [facility] 13:48:00 Height 2013-11-26 147.32 cm [facility] 13:48:00 BMI Calculated 2013-11-26 [facility] 13:48:00 Procedures Procedure Date / Time Performing Clinician Source Performed REFERRAL- 2023-01-23 05:01:00 Doctor Unassigned, [facility] REQUEST/RESPONSE [facility] PATIENT FINANCIAL 2022-12-13 18:04:36 Doctor Unassigned, [facility] POLICY [facility] MR BRAIN WO CONTRAST 2022-08-22 15:07:35 Mann Perdomo [facility] [place] FLU VACC ([id number]), 6 2022-07-20 19:17:10 Lakeshia Mathis [employer] [facility] [place] MO-65 YRS, .5ML, IM, QUAD A Medica l Branch (FLUCELVAX) NM GASTRIC EMPTYING 2022-07-11 18:06:04 [facility] PHYSICIAN ORDERS 2022-07-03 05:01:00 Doctor Unassigned, [facility] EXTERNAL PROVIDER RECORDS 2022-06-25 05:01:00 Doctor Unassigned, [facility] Name Medical Branch EXTERNAL PROVIDER RECORDS 2022-06-13 05:01:00 Doctor Unassigned, [facility] REFERRAL- 2022-06-06 05:01:00 Doctor Unassigned, [facility] REQUEST/RESPONSE [facility] INSURANCE CORRESPONDENCE 2022-05-23 05:01:00 Doctor Unassigned, [facility] Name Medical Branch [UTP] Toxin - Botox 2017-12-04 00:00:00 [facility] [[facility]] Toxin - Botox 2017-11-04 00:00:00 [facility] section [facility] Eye operation [facility] Plan of Care Planned Activity Planned Date Details Comments Source Diagnostic Test Pending 2017-12-23 00:00:00 [[facility]] Toxin - Botox [facility] [code = [UTP] Toxin - Botox] Encounters Start End Encounter Admission Attending Care Care Encounter Source Date/Time Date/Time Type Type Clinicians Facility Department ID 2023-01-09 Outpatient [facility] [id number] [place] 10:23:57 [id number] [facility] 2022-10-23 Outpatient [facility] [id number] [place] 08:05:04 [id number] [facility] 2022-08-30 Outpatient [facility] [id number] [place] 17:07:50 [id number] [facility] 2022-07-18 Outpatient [facility] [id number] [place] 08:34:38 [id number] [facility] 2022-07-17 Outpatient [facility] [id number] [place] 10:37:10 [id number] [facility] 2022-06-05 Outpatient [facility] [id number] [place] 08:43:28 [id number] [facility] 2022-06-01 Outpatient [facility] [id number] [place] 15:05:40 [id number] [facility] 2021-07-24 Emergency [facility] [id number] Univers 00:42:51 ity of [facility] 2021-07-22 Emergency [facility] [id number] Univers 02:08:24 ity [facility] 2021-07-20 Outpatient R WINSTON [facility] SAIDA [id number] Univers 19:33:03 JOSE Meza ity [facility] 2021-07-20 Emergency [facility] [id number] Univers 11:49:02 ity [facility] 2023-02-25 2023-02-25 Outpatient PAUL ASHTON MELINDA LEARY [id number] [place] 09:40:00 09:40:00 Seybol d 2023-02-14 2023-02-14 Outpatient MELINDA FERNANDEZ [id number] [place] 14:00:00 14:00:00 JACKIE Seybol d 2023-02-04 2023-02-04 Outpatient MELINDA FERNANDEZ [id number] [place] 00:00:00 00:00:00 JACKIE Seybol d 2023-02-01 2023-02-01 Outpatient MELINDA FERNANDEZ [id number] [place] 00:00:00 00:00:00 JACKIE Seybol d 2023-02-01 2023-02-01 Outpatient MELINDA JO [id number] [place] 00:00:00 00:00:00 MAYLIN Seybol d 2023-01-31 2023-01-31 Outpatient R ROLF [facility] [id number] Univers 13:00:00 13:00:00 RACHELE anh [facility] 2023-01-24 2023-01-24 Ancillary Caitlin Valles [facility] 1.2.84 0.114 [id number] Univers 10:15:00 11:10:26 Visit [facility] 4.2.7.2.686 Anibal BUNCH [id number] [address] 2023-01-23 2023-01-23 Office LUCIAN Murillo 6410 1.2.840.114 [id number] [place] 09:00:00 09:48:51 Visit Robson TRAVIS 350.1.13.58 Health 9.2.7.2.686 [id number] 2023-01-23 2023-01-23 Orders Doctor NANCY 1.2.840.114 [id number] Univers 00:00:00 00:00:00 Only Unassigned, MELANIE 350.1.13.10 ity of [facility] 4.2.7.2.686 Matt as [id number] [address] 2023-01-17 2023-01-17 Ancillary Caitlin Valles [facility] 1.2.84 0.114 [id number] Univers 09:30:00 10:23:52 Visit Rj Mccord 350.1.13.10 [facility] [place] [id number] Nm dical [facility] [address] [facility] 2023-01-15 2023-01-15 Outpatient R ALBANIA-BARBIE VANESSA [facility] [id number] Univers 13:30:00 13:58:49 LOVELACE-VALENTIN, VANESSA ity of [facility] 2023-01-15 2023-01-15 Office Rosie [facility] 1.2.840.114 [id number] Univers 13:30:00 13:58:49 Visit Vanessa urbina 350.1.13.10 [facility] [place] [id number] Nm dical NAL [address] [facility] 2023-01-07 2023-01-07 Ancillary Caitlin Valles [facility] 1.2.84 0.114 [id number] Univers 13:45:00 14:34:35 Visit Rachele Bansal 350.1.13.10 it[place] of [place] [id number] Nm dical NAL [address] [facility] 2023-01-02 2023-01-02 Telephone Morgan [facility] 1.2.840.114 1 [id number] Univers 00:00:00 00:00:00 Jovita ROBERTSON 350.1.13.10 i ty of [place] [id number] Nm dical NAL [address] [facility] 2022-12-31 2022-12-31 Outpatient LAB90 MELINDA LEARY [id number] [place] 10:30:00 10:30:00 Seybol d 2022-12-31 2022-12-31 Outpatient MELINDA FERNANDEZ [id number] [place] 09:30:00 09:30:00 JACKIE Seybol d 2022-12-27 2022-12-27 [facility] 1.2.840.114 [id number] Univers 00:00:00 00:00:00 Mann ROBERTSON 350.1.13.10 it[place] [id number] Nm dical NAL [address] [facility] 2022-12-27 2022-12-27 [facility] 1.2.840.114 [id number] Univers 00:00:00 00:00:00 Lakeshia ROBERTSON 350.1.13.10 it[place] of [place] [id number] Nm dical NAL [address] [facility] 2022-12-26 2022-12-26 Outpatient Dg BANSAL [facility] [id number] Univers 13:00:00 13:00:00 RACHELE ashraf [facility] 2022-12-20 2022-12-20 Outpatient Dg BANSAL [facility] [id number] Univers 11:00:00 11:51:42 RACHELE ashraf [facility] 2022-12-20 2022-12-20 Ancillary Caitlin Valles [facility] 1.2.84 0.114 [id number] Univers 11:00:00 11:51:42 Visit Rachele Bansal 350.1.13.10 ity of [place] [id number] Nm dical NAL [address] [facility] 2022-12-17 2022-12-17 Outpatient PAUL ASHTON [id number] [place] 11:00:00 11:00:00 Seybol d 2022-12-17 2022-12-17 Outpatient PAUL ASHTON 118 [id number] [place] 10:20:00 10:20:00 Seybol d 2022-12-13 2022-12-13 Outpatient R ROLF [facility] [id number] Univers 13:00:00 14:00:02 RACHELE ashraf [facility] 2022-12-13 2022-12-13 Ancillary Cailtin Valles [facility] 1.2.84 0.114 [id number] Univers 13:00:00 14:00:02 Visit Rachele Bansal 350.1.13.10 ity of [place] [id number] [facility] [address] [facility] 2022-12-13 2022-12-13 Orders Doctor NANCY 1.2.840.114 [id number] Univers 00:00:00 00:00:00 Only Unassigned, MELANIE 350.1.13.10 ity of [facility] 4.2.7.2.686 Matt as [id number] [address] 2022-12-13 2022-12-13 Refill Del [facility] 1.2.840.114 [id number] Univers 00:00:00 00:00:00 Lakeshia ROBERTSON 350.1.13.10 it[place] [id number] [facility] [address] [facility] 2022-12-11 2022-12-11 Outpatient R SURI [facility] [id number] Univers 11:00:00 11:00:00 RJ ashraf [facility] 2022-12-05 2022-12-05 Outpatient MELINDA NAVA [id number] [place] 14:00:00 14:00:00 KAMILLA Seybol d 2022-12-05 2022-12-05 Outpatient PAUL ASHTON [id number] [place] 00:00:00 00:00:00 Seybol d 2022-11-26 2022-11-26 Outpatient PAUL ASHTON MELINDA MELINDA [id number] [place] 09:50:00 09:50:00 Seybol d 2022-11-26 2022-11-26 Outpatient MELINDA MELINDA [id number] [place] 09:00:00 09:00:00 Seybol d 2022-11-26 2022-11-26 Outpatient PAUL ASHTON MELINDA MELINDA [id number] [place] 00:00:00 00:00:00 Seybol d 2022-11-15 2022-11-15 Outpatient JEY MELINDA MELINDA [id number] [place] 09:30:00 09:30:00 DANY Seybol d 2022-11-15 2022-11-15 Outpatient REBECCA MELINDA LEARY [id number] [place] 00:00:00 00:00:00 JACKIE Seybol d 2022-11-12 2022-11-12 Ancillary Caitlin Valles [facility] 1.2.84 0.114 [id number] Univers 13:45:00 14:30:00 Visit [facility]ache[facility].13.10 [facility] [place] [id number] Nm dical NAL [address] [facility] 2022-11-09 2022-11-09 Outpatient Dg MORA [facility] [id number] Univers 13:00:00 13:00:00 JOVITA Kell [facility] 2022-11-06 2022-11-06 Ancillary Caitlin Tucker [facility] 1.2.840 .114 [id number] Univers 13:00:00 13:36:46 Visit Rachele Bansal 350.1.13.10 [facility] [place] [id number] Nm dical NAL [address] [facility] 2022-11-06 2022-11-06 Outpatient Dg MCCORD [facility] [id number] Univers 10:00:00 10:50:22 RJ Kell [facility] 2022-11-06 2022-11-06 Office Suri [facility] 1.2.270.245 [id number] Univers 10:00:00 10:50:22 Visit Rj MARCELO 350.1.13.10 i ty [facility] [place] [id number] Nm dical NAL [address] [facility] 2022-11-05 2022-11-05 Case [facility] 1.2.840.114 [id number] Univers 00:00:00 00:00:00 Management Caitlin ROBERTSON 350.1.13.10 ity [facility] 4[place] [id number] Nm dical NAL [address] [facility] 2022-11-01 2022-11-01 Outpatient R ROLF [facility] [id number] Univers 13:45:00 14:26:45 [facility] 2022-11-01 Ancillary Molina Tucker [facility] 1.2.840. 114 [id number] Univers 13:45:00 14:26:45 Visit Rachele Bansal 350.1.13.10 [facility] 4[place] [id number] Nm dical NAL [address] [facility] 2022-11-01 2022-11-01 Outpatient R ROLF [facility] [id number] Univers 13:00:00 13:55:47 RACHELE ity [facility] 2022-11-01 2022-11-01 Ancillary Caitlin Valles [facility] 1.2.84 0.114 [id number] Univers 13:00:00 13:55:47 Visit Rachele Bansal 350.1.13.10 [facility] [place] [id number] Nm dical NAL [address] [facility] 2022-10-29 2022-10-29 Outpatient MELINDA FERNANDEZ [id number] [place] 15:15:00 15:15:00 JACKIE quarles 2022-10-23 2022-10-23 Office LUCIAN Murillo 6410 1.2.840.114 [id number] [place] 09:00:00 10:20:53 Visit Robson QUINTANILLA 350.1.13.58 Health 9.2.7.2.686 [id number] 2022-10-23 2022-10-23 Telephone Leanne, [facility] 1.2.840.114 [id number] Univers 00:00:00 00:00:00 Ogofeliau [place] 350.1.13.10 ity of [place] [id number] Nm dical NAL [address] [facility] 2022-10-22 2022-10-22 Outpatient R ROLF [facility] [id number] [facility] 13:00:00 14:11:33 RACHELE ity of [facility] 2022-10-22 2022-10-22 Ancillary Caitlin Valles [facility] 1.2.84 0.114 [id number] [facility] 13:00:00 14:11:33 Visit Rachele Bansal 350.1.13.10 ity of [place] [id number] Nm dical NAL [address] [facility] 2022-10-16 2022-10-16 Refill Leanne [facility] 1.2.840.114 [id number] Univers 00:00:00 00:00:00 Ogsylvia [place] 350.1.13.10 ity of [place] [id number] Nm dical NAL [address] [facility] 2022-10-15 2022-10-15 Ancillary Caitlin Valles [facility] 1.2.84 0.114 [id number] Univers 13:00:00 13:45:00 Visit Rachele Bansal 350.1.13.10 ity of [place] [id number] Nm dical NAL [address] [facility] 2022-10-03 2022-10-03 Ancillary Caitlin Valles [facility] 1.2.84 0.114 [id number] Univers 08:00:00 08:46:55 Visit Rachele Bansal 350.1.13.10 ity of [place] [id number] Nm dical NAL [address] [facility] 2022-10-02 2022-10-02 Outpatient MELINDA FERNANDEZ [id number] [place] 13:30:00 13:30:00 JACKIE Seybol d 2022-10-02 2022-10-02 Ancillary Jennifer Shah [facility] 1.2.840. 114 [id number] Univers 08:15:00 08:58:26 Visit Rachele Bansal 350.1.13.10 [facility] 4.[place] [id number] Nm dical NAL [address] [facility] 2022-09-27 2022-09-27 Outpatient Dg BANSAL [facility] [id number] Univers 08:45:00 09:52:22 RACHELE ashraf [facility] 2022-09-27 2022-09-27 Ancillary Caitlin Valles [facility] 1.2.84 0.114 [id number] Univers 08:45:00 09:52:22 Visit Rachele Bansal 350.1.13.10 [facility] 4[place] [id number] Nm dical NAL [address] [facility] 2022-09-27 2022-09-27 Ancillary Caitlin Tucker [facility] 1.2.840 .114 [id number] Univers 08:00:00 09:01:55 Visit Rachele Bansal 350.1.13.10 it[facility] 4[place] [id number] Nm dical NAL [address] [facility] 2022-09-25 2022-09-25 Outpatient MELINDA FERNANDEZ [id number] 60 [place] 13:45:00 13:45:00 JACKIE Seybol d 2022-09-19 2022-09-19 Outpatient R ROLF [facility] [id number] Univers 11:00:00 11:30:21 RACHELE ashraf [facility] 2022-09-19 2022-09-19 Ancillary Caitlin Tucker [facility] 1.2.840 .114 [id number] Univers 11:00:00 11:30:21 Visit Rachele Bansal Georgie ROBERTSON 350.1.13.10 ity of [place] [id number] Nm dical NAL [address] [facility] 2022-09-19 2022-09-19 Ancillary Caitlin Valles [facility] 1.2.84 0.114 [id number] Univers 10:15:00 11:04:55 Visit Rachele Bansal MARCELO 350.1.13.10 ity of [place] [id number] Nm dical NAL [address] [facility] 2022-09-10 2022-09-10 Outpatient R [facility] [id number] Univers 09:00:00 09:00:00 ity of [facility] 2022-09-10 2022-09-10 Shoe Lining Fitter 2, Adc Lab [facility] 1.2.840.114 [id number] Univers 08:45:00 09:00:00 Visit ShraddhaivánJovita braxton 350.1.13.10 ity of [place] [id number] Nm dical NAL [address] [facility] 2022-09-10 2022-09-10 [facility] [id number] Univers 08:45:00 08:45:00 JOVITA ity [facility] 2022-09-05 2022-09-05 Outpatient R [facility] [id number] Univers 08:20:00 08:20:00 ity of [facility] 2022-09-04 2022-09-04 [facility] [id number] Univers 10:15:00 10:49:20 RACHELE ity [facility] 2022-09-04 2022-09-04 Ancillary Caitlin Valles [facility] 1.2.84 0.114 [id number] Univers 10:15:00 10:49:20 Visit Bansal Rachele ROBERTSON 350.1.13.10 ity of [place] [id number] Me dical NAL [address] [facility] 2022-09-04 2022-09-04 Ancillary Jennifer Shah [facility] 1.2.840. 114 [id number] Univers 09:15:00 10:00:00 Visit Rachele Bansal 350.1.13.10 ity of [place] [id number] Nm dical NAL [address] [facility] 2022-08-30 2022-08-30 Ancillary GarrettCaitlin Vilma [facility] 1.2.840 .114 [id number] Univers 10:15:00 11:00:00 Visit Rachele Bansal 350.1.13.10 ity of [place] [id number] Nm dical NAL [address] [facility] 2022-08-30 2022-08-30 Ancillary Caitlin Valles [facility] 1.2.84 0.114 [id number] Univers 09:30:00 10:25:45 Visit Rachele Bansal 350.1.13.10 ity of [place] [id number] Nm dical NAL [address] [facility] 2022-08-30 2022-08-30 Telephone Leanne [facility] 1.2.840.114 [id number] Univers 00:00:00 00:00:00 Mann MARCELO 350.1.13.10 ity of [place] [phone] Nm dical NAL [address] [facility] 2022-08-28 2022-08-28 Ancillary Rosario Vallesbeto Dominguez [facility] 1.2.84 0.114 [id number] Univers 15:15:00 16:03:50 Visit Rachele Bansal 350.1.13.10 ity of [place] [id number] Nm dical NAL [address] [facility] 2022-08-27 2022-08-27 Ancillary PabloDarnellanh Pop [facility] 1.2.840. 114 [id number] Univers 13:00:00 13:46:59 Visit Rachele Bansal 350.1.13.10 ity of [place] [id number] Nm dical NAL [address] [facility] 2022-08-23 2022-08-23 Telephone [facility] 1.2.840.114 [id number] Univers 00:00:00 00:00:00 Ogalysharadhalisy [place] 350.1.13.10 ity of [place] [id number] Nm dical NAL [address] [facility] 2022-08-23 2022-08-23 Telephone [facility] 1.2.363.619 [id number] Univers 00:00:00 00:00:00 Danny MARCELO 350.1.13.10 ity of [place] [id number] Nm dical NAL [address] [facility] 2022-08-22 2022-08-22 Outpatient R MANN PERDOMO [facility] [id number] Univers 07:54:51 23:59:00 MANN PERDOMO ity of [facility] 2022-08-22 2022-08-22 [facility] 1.2.508.183 [id number] [facility] 07:54:51 23:59:00 Encounter Arniekaitlin MARCELO 350.1.13.10 it[place] [id number] [facility] [address] [place] [address] 2022-08-21 2022-08-21 [facility] [id number] Univers 15:00:00 16:15:45 RACHELE ity of [facility] 2022-08-21 2022-08-21 Ancillary Caitlin Valles [facility] 1.2.84 0.114 [id number] Univers 15:00:00 16:15:45 Visit Rachele Bansal 350.1.13.10 [place] [id number] Nm dical NAL 178 [facility] 2022-08-21 2022-08-21 Outpatient R [facility] [id number] Univers 14:00:00 14:53:11 RACHELE ashraf [facility] 2022-08-21 2022-08-21 Ancillary Jennifer Shah [facility] 1.2.840. 114 [id number] Univers 14:00:00 14:53:11 Visit Rolf Rachele ROBERTOSN 350.1.13.10 [facility] [place] [id number] Nm dical NAL 179 [facility] 2022-08-10 2022-08-10 Outpatient R [facility] [id number] Univers 14:41:51 23:59:00 DANNY ashraf o [facility] 2022-08-08 2022-08-08 Outpatient R MANN [facility] [id number] Univers 11:30:00 12:27:59 MANN PERDOMO [facility] 2022-08-08 2022-08-08 [facility] 1.2.840.114 [id number] Univers 11:30:00 12:27:59 Visit Mann ROBERTSON 350.1.13.10 [facility] [place] [id number] Nm dical VONDA 044 [facility] 2022-07-30 2022-07-30 Outpatient R [facility] [id number] Univers 13:00:00 13:00:00 RACHELE ashraf [facility] 2022-07-24 2022-07-24 Outpatient R [facility] [id number] Univers 15:00:00 15:57:01 DANNY ashraf o f [facility] 2022-07-24 2022-07-24 Office [facility] 1.2.840.114 [id number] Univers 15:00:00 15:57:01 Visit Danny ROBERTSON 350.1.13.10 [facility] [place] [id number] Nm dical NAL 059 [facility] 2022-07-20 2022-07-20 Outpatient R MANN PERDOMO [facility] [id number] Univers 14:00:00 14:48:31 MANN PERDOMO ity of [facility] 2022-07-20 2022-07-20 Office Leanne [facility] 1.2.840.114 [id number] [facility] 14:00:00 14:48:31 Visit Mann WEAVERMARII 350.1.13.10 it[place] [id number] Nm dical NAL 044 [facility] 2022-07-18 2022-07-18 Office LUCIAN Murillo 6410 1.2.840.114 [id number] [place] 09:00:00 10:12:46 Visit Robson QUINTANILLA 350.1.13.58 [facility] 9.2.7.2.686 [id number] 2022-07-18 2022-07-18 Telephone [facility] 1.2.840.114 [id number] [facility] 00:00:00 00:00:00 Lakeshia ROBERTSON 350.1.13.10 [place] [id number] Nm dical [facility] 231 [facility] 2022-07-13 2022-07-13 Telephone [facility] 1.2.840.114 [id number] [facility] 00:00:00 00:00:00 Lakeshia Alberto MARCELO 350.1.13.10 it[place] [id number] Nm dical NAL [address] [facility] 2022-07-11 2022-07-11 Outpatient R [facility]IN [facility] [id number] Univers 08:12:35 23:59:00 ESTELLA ity of [facility] 2022-07-11 2022-07-11 [facility] 1.2.840.114 [id number] [facility] 08:12:35 23:59:00 Encounter Estella Ruffin MARCELO 350.1.13.10 ity [facility] [place] [id number] [facility] [address] [place] 2022-07-03 2022-07-03 Orders Doctor NANCY 1.2.840.114 [id number] Univers 00:00:00 00:00:00 Only Unassigned, MELANIE 350.1.13.10 ity of [facility] 4.2.7.2.686 Matt as [id number] [facility] [address] [place] 2022-06-28 2022-06-28 Telephone [facility] 1.2.840.114 [id number] Univers 00:00:00 00:00:00 Lakeshia A MARCELO 350.1.13.10 ity [facility] [place] [id number] [facility] [address] [facility] 2022-06-27 2022-06-27 Telephone [facility] 1.2.840.114 [id number] Univers 00:00:00 00:00:00 Lakeshiatomas ROBERTSON 350.1.13.10 ity [facility] [place] [phone] Nm dical NAL [address] [facility] 2022-06-25 2022-06-25 [facility] 1.2.840.114 [id number] Univers 00:00:00 00:00:00 Lakeshiatomas [place] 350.1.13.10 it[place] of [place] [id number] Nm dical NAL [address] [facility] 2022-06-25 2022-06-25 Orders Doctor NANCY 1.2.840.114 [id number] Univers 00:00:00 00:00:00 Only Unassigned, MELANIE 350.1.13.10 ity of [facility] 4.2.7.2.686 Matt as [id number] [facility] [address] [place] 2022-06-15 2022-06-15 Outpatient R MANN [facility]O [facility] [id number] [facility] 11:00:00 12:27:45 MANN PERDOMO ity of [facility] 2022-06-15 2022-06-15 Office Leanne [facility] 1.2.840.114 [id number] [facility] 11:00:00 12:27:45 Visit Mann ROBERTSON 350.1.13.10 ity [facility] [place] [id number] [facility] [address] [facility] 2022-06-15 2022-06-15 Telephone Del [facility] 1.2.840.114 [id number] Univers 00:00:00 00:00:00 Lakeshia ROBERTSON 350.1.13.10 it[place] of [place] [id number] Nm [facility] [address] [facility] 2022-06-14 2022-06-14 [facility]phone [facility] 1.2.840.114 [id number] Univers 00:00:00 00:00:00 Lakeshia ROBERTSON 350.1.13.10 ity [facility] 4[place] [id number] Nm [facility] [address] [facility] 2022-06-14 2022-06-14 Telephone Del [facility] 1.2.840.114 [id number] Univers 00:00:00 00:00:00 Lakeshia ROBERTSON 350.1.13.10 ity [facility] [place] [id number] [address] 2022-06-13 2022-06-13 Orders Doctor NANCY 1.2.840.114 [id number] Univers 00:00:00 00:00:00 Only Unassigned, MELANIE 350.1.13.10 ity of [facility] 4.2.7.2.686 Matt as [id number] [address] 2022-06-11 2022-06-11 Telephone [facility] 1.2.840.114 [id number] [facility] 00:00:00 00:00:00 Binduradhalisy MARCELO 350.1.13.10 ity of [facility] 4[place] [id number] [address] 2022-06-08 2022-06-08 Outpatient R MANN [facility]O [facility] [id number] Univers 15:00:00 15:28:32 MANN PERDOMO ity [facility] 2022-06-08 2022-06-08 Office [facility] 1.2.840.114 [id number] Univers 15:00:00 15:28:32 Visit Mann ROBERTSON 350.1.13.10 it[place] of [place] [id number] [address] 2022-06-06 2022-06-06 Orders Doctor NANCY 1.2.840.114 [id number] Univers 00:00:00 00:00:00 Only Unassigned, MELANIE 350.1.13.10 ity of [place] [facility] 4.2.7.2.686 Matt as [id number] [address] 2022-06-05 2022-06-05 Outpatient [facility] [id number] [place] 13:00:00 13:00:00 [facility] 2022-05-31 2022-05-31 Telephone [facility] 1.2.840.114 [id number] [facility] 00:00:00 00:00:00 Lakeshia ROBERTSON 350.1.13.10 it[place] of [place] [id number] [address] 2022-05-29 2022-05-29 Outpatient R LEANNE, MANN [facility] [id number] Univers 07:46:51 23:59:00 MANN PERDOMO ity [facility] 2022-05-29 2022-05-29 [facility] 1.2.367.210 [id number] Univers 07:46:51 23:59:00 Encounter Mann MARCELO 350.1.13.10 it[place] [id number] [facility] [address] 2022-05-29 2022-05-29 Outpatient R MANN [facility]O [facility] [id number] Univers 00:00:00 00:00:00 MANN PERDOMO ity [facility] 2022-05-25 2022-05-25 Telephone [facility] 1.2.840.114 [id number] Univers 00:00:00 00:00:00 Lakeshia ROBERTSON 350.1.13.10 it[place] of [place] [facility] [id number] Nm dic[address] 2022-05-23 2022-05-23 Orders Doctor CRUZ 1.2.840.114 [id number] Univers 00:00:00 00:00:00 Only Unassigned, MELANIE 350.1.13.10 ity of [place] [facility] 4.2.7.2.686 Matt as [id number] [facility] [address] 2022-05-22 2022-05-22 Outpatient R MANN [facility]O [facility] [id number] Univers 11:00:00 11:54:20 [facility]22-[facility]-22 2022-05-22 Office [facility] 1.2.840.114 [id number] Univers 11:00:00 11:54:20 Visit Mann MARCELO 350.1.13.10 it[place] of [place] [id number] Nm dical NAL [address] [place] [address] 2022-05-21 2022-05-21 Telephone [facility] 1.2.840.114 [id number] Univers 00:00:00 00:00:00 Lakeshia ROBERTSON 350.1.13.10 ity [facility] 4.[place] [id number] [address] 2022-05-18 2022-05-18 Out[facility] [id number] Univers 16:20:00 17:41:58 LAKESHIA ity of [facility] 2022-05-18 2022-05-18 [facility] 1.2.840.114 [id number] Univers 16:20:00 17:41:58 Visit Lakeshia ROBERTSON 350.1.13.10 it[place] [id number] [address] 2022-05-18 2022-05-18 Out[facility] [id number] Univers 16:20:00 17:41:58 LAKESHIA ity of [facility] 2022-05-13 2022-05-13 Emergency X TING, K [facility] ERT [id number] Univers 00:20:00 03:20:00 ity of [facility] 2022-05-13 2022-05-13 Emergency Vilma Mitchell [facility] 1.2.840.114 [id number] Univers 00:20:00 03:20:00 Berna ROBERTSON 350.1.13.10 i ty [place] [id number] [address] 2022-04-25 2022-04-25 Refill [facility] 1.2.840.114 [id number] Univers 00:00:00 00:00:00 Lakeshia ROBERTSON 350.1.13.10 it[place] of [place] [id number] [address] 2022-04-24 2022-04-24 [facility] 1.2.840.114 [id number] Univers 16:20:00 17:34:17 Visit Lakeshia ROBERTSON 350.1.13.10 ity [facility] 4.2.[place] [id number] Nm mehnaz FERRARI [address] [facility] 2022-04-24 2022-04-24 Outpatient R DEL [facility] [id number] Univers 16:20:00 17:34:17 LAKESHIA anh [facility] 2022-04-24 2022-04-24 Outpatient R DEL [facility] [id number] Univers 16:20:00 16:20:00 LAKESHIA [facility] 2022-04-24 2022-04-24 Outpatient R DEL [facility] [id number] Univers 16:20:00 16:20:00 LAKESHIA [facility] 2022-04-12 2022-04-12 Outpatient R DEL [facility] [id number] Univers 15:00:00 16:35:17 [facility]-12 2022-04-12 Outpatient R DEL [facility] [id number] Univers 15:00:00 16:35:17 [facility] 2022-04-12 2022-04-12 Office [facility] 1.2.840.114 [id number] Univers 15:00:00 16:35:17 Visit Lakeshia ROBERTSON 350.1.13.10 ity [place] [id number] Nm krissarpita FERRARI [address] [place] [address] 2022-04-05 2022-04-05 Alla Ordonez [facility] 1.2.460.511 [id number] Univers 00:00:00 00:00:00 Bud SPECIALTY 350.1.13.10 it[place] AT [id number] Nm mehnaz CUELLAR [address] [place] [address] 2022-04-04 2022-04-04 Outpatient R JOSÉ LUIS [facility] [id number] Univers 11:00:00 11:00:00 BUD ashraf [facility] 2022-04-03 2022-04-03 Shoe Lining Fitter 2, Adc Lab [facility] 1.2.840.114 [id number] Univers 11:15:00 11:30:00 Visit Mathis Lakeshia ROBERTSON 350.1. 13.10 ity [facility] 4[place] [id number] Nm dical [facility] [address] [facility] 2022-04-03 2022-04-03 [facility] [id number] Univers 11:15:00 11:15:00 [facility] 2022-04-02 2022-04-02 Office [facility] 1.2.840.114 [id number] Univers 10:40:00 12:32:50 Visit Lakeshia ROBERTSON 350.1.13.10 ity [facility] [place]2.[place] [id number] [facility] [address] [facility] 2022-04-02 2022-04-02 Outpatient R [facility] [id number] Univers 10:40:00 12:32:50 [facility] 2022-04-02 2022-04-02 Outpatient R DLE [facility] [id number] Univers 10:40:00 10:40:00 [facility] 2022-04-02 2022-04-02 Outpatient R [facility] [id number] Univers 10:40:00 10:40:00 [facility] 2022-04-02 2022-04-02 Orders Doctor CRUZ 1.2.840.114 [id number] Univers 00:00:00 00:00:00 Only Unassigned, MELANIE 350.1.13.10 ity of [facility] 4.2.7.2.686 Matt as [id number] [address] 2022-03-20 2022-03-20 Orders Doctor NANCY 1.2.840.114 [id number] Univers 00:00:00 00:00:00 Only Unassigned, MELANIE 350.1.13.10 ity of [facility] 4.2.7.2.686 Matt as [id number] [address] 2022-03-07 2022-03-07 Telephone [facility] 1.2.840.114 [id number] Univers 00:00:00 00:00:00 Lakeshia [place] 350.1.13.10 it[place] [id number] [address] 2022-02-16 2022-02-16 Outpatient R [facility] [id number] Univers 08:00:00 09:05:55 [facility] 2022-02-16 2022-02-16 Office [facility] 1.2.840.114 [id number] Univers 08:00:00 09:05:55 Visit Lakeshia ROBERTSON 350.1.13.10 ity [facility] [place]2.[place] [id number] [address] 2022-02-16 2022-02-16 Outpatient R [facility] [id number] Univers 08:00:00 09:05:55 [facility] 2022-02-16 2022-02-16 Outpatient R [facility] [id number] Univers 08:00:00 08:00:00 [facility] 2022-01-15 2022-01-15 Outpatient R [facility] [id number] Univers 10:20:00 10:20:00 [facility]IA [facility] 2022-01-10 2022-01-10 Refill [facility] 1.2.840.114 [id number] Univers 00:00:00 00:00:00 Lakeshia ROBERTSON 350.1.13.10 it[place] [id number] [address] 2022-01-05 2022-01-05 Outpatient R [facility] [id number] Univers 11:20:00 13:14:07 [facility] 2022-01-05 2022-01-05 Office [facility] 1.2.840.114 [id number] Univers 11:20:00 13:14:07 Visit Lakeshia ROBERTSON 350.1.13.10 it[place] [id number] [address] 2021-11-29 2021-11-29 Outpatient R [facility] [id number] Univers 10:24:14 23:59:00 [facility] 2021-11-29 2021-11-29 [facility] 1.2.840.114 [id number] Univers 10:20:00 23:59:00 Encounter Rj [place] 350.1.13.10 it[place] [id number] [address] 2021-11-27 2021-11-27 Telephone [facility] 1.2.840.114 [id number] Univers 00:00:00 00:00:00 Lakeshia [place] 350.1.13.10 it[place] [id number] [address] 2021-11-24 2021-11-24 Refill [facility] 1.2.840.114 [id number] Univers 00:00:00 00:00:00 Lakeshia [place] 350.1.13.10 ity [place] [id number] [address] 2021-11-23 2021-11-23 Outpatient Dg [facility] [id number] Univers 08:30:00 08:30:00 SHERRIE ashraf [facility] 2021-11-21 2021-11-21 Outpatient Dg BANSAL [facility] [id number] Univers 14:15:00 14:15:00 RACHELE ashraf [facility] 2021-11-10 2021-11-10 Orders Doctor NANCY 1.2.840.114 [id number] Univers 00:00:00 00:00:00 Only Unassigned, MELANIE 350.1.13.10 ity of [place] [facility] 4.2.7.2.686 Matt as [id number] [address] 2021-11-08 2021-11-08 Telephone Del [facility] 1.2.840.114 [id number] Univers 00:00:00 00:00:00 Lakeshia ROBERTSON 350.1.13.10 it[place] [id number] Nm dical NAL [address] [facility] 2021-11-07 2021-11-07 Office Leanne [facility] 1.2.840.114 [id number] Univers 11:30:00 12:16:38 Visit Mann ROBERTSON 350.1.13.10 it[place] [id number] Nm [facility] [address] [facility] 2021-11-07 2021-11-07 Outpatient R MANN PERDOMO [facility] [id number] Univers 11:30:00 12:16:38 LEANNE ARNIEYOULisy [facility] 2021-11-07 2021-11-07 Outpatient R MANN PERDOMO [facility] [id number] Univers 11:30:00 11:30:00 MANN PERDOMO itanh [facility] 2021-11-07 2021-11-07 Outpatient R ROLF [facility] [id number] Univers 10:15:00 11:09:12 RACHELE ashraf [facility] 2021-11-07 2021-11-07 Ancillary Jimy Cardona [facility] 1.2. 840.114 [id number] Univers 10:15:00 11:09:12 Visit Rachele Bansal 350.1.13.10 ity [facility] 4.2.7.2.[place] [id number] Nm dical NAL [address] [facility] 2021-11-06 2021-11-06 Outpatient R MANN PERDOMO [facility] [id number] Univers 08:00:00 08:00:00 MANN PERDOMO [facility] 2021-11-02 2021-11-02 Ancillary Jimy Cardona [facility] 1.2. 840.114 [id number] Univers 13:45:00 14:45:15 Visit Rachele Bansal 350.1.13.10 ity [facility] 4[place]2.7.2.[place] [id number] Nm dic[address] 2021-11-02 2021-11-02 Outpatient R SURI [facility] [id number] Univers 10:30:00 11:04:[facility] 2021-11-02 2021-11-02 Office Suri [facility] 1.2.966.694 [id number] Univers 10:30:00 11:04:20 Visit Rj ROBERTSON 350.1.13.10 i ty [facility] [place]7.2.[place] [id number] Nm dical NAL [address] [facility] 2021-10-26 2021-10-26 Outpatient R ROLF [facility] [id number] Univers 10:15:00 11:38:31 RACHELE [facility] 2021-10-26 2021-10-26 Ancillary Jimy Cardona [facility] 1.2. 840.114 [id number] Univers 10:15:00 11:38:31 Visit Rachele Bansal 350.1.13.10 ity [facility] 4[place]2.7.2.[place] [id number] Nm dical [address] 2021-10-19 2021-10-19 Outpatient R ROLF [facility] [id number] Univers 10:45:00 11:59:51 [facility]LE [facility] 2021-10-19 2021-10-19 Ancillary Jimy Cardona [facility] 1.2. 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 13.10 ity of [facility] 4.2.7.2.[place] [id number] Nm dical [facility] [address] [facility] 2021-10-16 2021-10-16 Office Del [facility] 1.2.840.114 [id number] Univers 10:00:00 12:56:51 Visit Lakeshia ROBERTSON 350.1.13.10 ity of [facility] 4.2.7.2.[place] 399.6532352 Nm dical [facility] [address] [facility] 2021-10-16 2021-10-16 Outpatient R DEL [facility] [id number] Univers 10:00:00 12:56:51 LAKESHIA ashraf [facility] 2021-10-16 2021-10-16 Outpatient R DEL [facility] [id number] Univers 10:00:00 10:00:00 LAKESHIA ashraf [facility] 2021-10-10 2021-10-10 Ancillary Jimy Cardona [facility] 1.2. 840.114 [id number] Univers 15:45:00 16:49:22 Visit Rachele BansalTON 350.1.13.10 ity [facility] 4[place]2.7.2.[place] [id number] Nm dical [facility] [address] [facility] 2021-10-10 2021-10-10 Outpatient R ROLF [facility] [id number] Univers 14:40:00 14:40:00 RACHELE ashraf [facility] 2021-10-05 2021-10-05 Ancillary Jimy Cardona [facility] 1.2. 840.114 [id number] Univers 13:00:00 13:45:00 Visit Rachele Bansal MARCELO 350.1.13.10 ity [facility] [place]2.7.2.[place] [id number] [address] 2021-10-05 2021-10-05 [facility] [id number] Univers 13:00:00 13:00:00 RACHELE ashraf [facility] 2021-10-05 2021-10-05 Outpatient D[facility] [id number] Univers 13:00:00 13:00:00 RACHELE ashraf [facility] 2021-09-29 2021-09-29 Office [facility] 1.2.840.114 [id number] Univers 09:30:00 09:45:00 Visit Clara Quarles [facility] 350.1.13.10 [facility] [place].2.7.2.[place] [facility] [id number] [facility] 2021-09-29 2021-09-29 Outpatient [facility] [id number] Univers 09:30:00 09:30:00 CLARA ashraf [facility] 2021-09-29 2021-09-29 Outpatient [facility] [id number] Univers 09:30:00 09:30:00 CLARA ashraf [facility] 2021-09-28 2021-09-28 Ancillary Jimy Cardona [facility] 1.2. 840.114 [id number] Univers 10:15:00 11:00:00 Visit Rachele Bansal 350.1.13.10 ity of [place] [id number] Nm dical NAL [address] [facility] 2021-09-28 2021-09-28 Outpatient R [facility] [id number] Univers 10:15:00 10:15:00 ity of [facility] 2021-09-28 2021-09-28 [facility] [id number] Univers 10:15:00 10:15:00 RACHELE ity [facility] 2021-09-27 2021-09-27 Outpatient R [facility] [id number] Univers 13:45:00 14:58:35 BUD ity [facility] 2021-09-27 2021-09-27 Office José [facility] 1.2.840.114 [id number] Univers 13:45:00 14:58:35 Visit Bud SPECIALTY 350.1.13.10 [place] AT [id number] Nm dical [facility] [address] [facility] 2021-09-21 2021-09-21 Ancillary Jimy Cardona [facility] 1.2. 840.114 [id number] Univers 10:45:00 11:30:00 Visit Rachele Bansal 350.1.13.10 ity of [place].2.[place] [id number] Nm dical NAL [address] [facility] 2021-09-21 2021-09-21 Outpatient R ROLF [facility] [id number] Univers 10:00:00 11:14:34 RACHELE ity [facility] 2021-09-21 2021-09-21 Ancillary Caitlin Tucker [facility] 1.2.840 .114 [id number] Univers 10:00:00 11:14:34 Visit Rachele Bansal 350.1.13.10 ity [facility] 4.2.[place].2.[place] [id number] Nm dical NAL [address] [facility] 2021-09-21 2021-09-21 Outpatient [facility] [id number] Univers 10:45:00 10:45:00 RACHELE ashraf [facility] 2021-09-21 2021-09-21 Ancillary Caitlin Tucker Vilma [facility] 1.2.840 .114 [id number] Univers 10:00:00 10:40:00 Visit Rachele Bansal 350.1.13.10 ity of [place] [phone] Nm dical NAL [address] [facility] 2021-09-18 2021-09-18 Outpatient [facility] [id number] Univers 09:00:00 09:00:00 CLARA ashraf [facility] 2021-09-14 2021-09-14 Ancillary Jimy Cardona [facility] 1.2. 840.114 [id number] Univers 14:00:00 15:13:00 Visit BansalRachele Georgie ROBERTSON 350.1.13.10 it[place] [id number] Nm dical NAL 178 [facility] 2021-09-12 2021-09-12 Ancillary Jimy Cardona [facility] 1.2. 840.114 [id number] Univers 16:30:00 17:15:00 Visit Rachele Bansal Georgie MARCELO 350.1.13.10 it[place] [phone] Nm dical NAL [address] [facility] 2021-09-12 2021-09-12 Ancillary Lashaun Bean [facility] 1.2. 840.114 [id number] Univers 15:40:00 16:20:00 Visit Rachele Bansal Georgie ROBERTSON 350.1.13.10 [facility] [place] [phone] Nm dical NAL 179 [facility] 2021-09-11 2021-09-11 Outpatient R JOSÉ LUIS [facility] [id number] Univers 08:58:13 23:59:00 BUD ashraf [facility] 2021-09-11 2021-09-11 Hospital José Luis [facility] 1.2.840.114 [id number] Univers 08:58:13 23:59:00 Encounter Bud MARCELO 350.1.13.10 [facility] [place] [id number] [facility] [address] [place] 2021-09-11 2021-09-11 Ancillary Ama Manzo [facility] 1 .2.840.114 [id number] Univers 13:00:00 13:41:09 Visit Rachele Bansal 350.1.13.10 [facility] [place] [phone] Nm dical NAL [address] [facility] 2021-09-11 2021-09-11 [facility] [id number] Univers 13:00:00 13:00:00 RACHELE ashraf [facility] 2021-09-11 2021-09-11 Orders Doctor NANCY 1.2.840.114 [id number] Univers 00:00:00 00:00:00 Only Unassigned, MELANIE 350.1.13.10 ity of [facility] 4.2.7.2.686 Matt as [id number] [facility] [address] 2021-09-07 2021-09-07 Ancillary Caitlin Tucker [facility] 1.2.840 .114 [id number] Univers 14:20:00 15:00:00 Visit Rachele Bansal 350.1.13.10 [facility] [place] [phone] Nm dical NAL [address] [facility] 2021-09-01 2021-09-01 Urgent Margaret Mahamed [facility] 1.2.840. 114 [id number] Univers 16:05:24 16:25:24 Pooja Finney [facility] 350.1.13.10 ity of [place] 4.2.7.2.686 Matt as FERNANDEZ?BLEA [phone] [facility] [address] [place] [facility] 2021-09-01 2021-09-01 Outpatient R [facility] [id number] Univers 16:20:00 16:20:00 POOJA ity of [facility] 2021-08-31 2021-08-31 Ancillary Garrett Molina [place] [facility] [facility] 1.2.840. 114 [id number] Univers 09:15:12 09:55:12 Visit Rachele Bansal 350.1.13.10 ity [facility] [place] [phone] Nm dical NAL 179 [facility] 2021-08-29 2021-08-29 Ancillary Beto Cardonaopher Vilma [facility] 1.2. 840.114 [id number] Univers 15:03:16 16:47:58 Visit Rachele Bansal 350.1.13.10 ity of [place] [phone] Nm dical NAL 178 [facility] 2021-08-29 2021-08-29 [facility] [id number] Univers 15:00:00 16:47:58 RACHELE ity [facility] 2021-08-29 2021-08-29 Outpatient R [facility] [id number] Univers 15:00:00 15:00:00 ity [facility] 2021-08-29 2021-08-29 Ancillary GarrettCaitlin Vilma [facility] 1.2.840 .114 [id number] Univers 14:19:03 14:59:03 Visit Rachele Bansal 350.1.13.10 ity [facility] [place] [phone] Nm dical NAL 179 [facility] 2021-08-28 2021-08-28 Refill Morgan [facility] 1.2.840.114 [id number] Univers 00:00:00 00:00:00 Jovita ROBERTSON 350.1.13.10 i ty [facility] 4.[place] [phone] Nm dical NAL 044 [facility] 2021-08-24 2021-08-24 [facility] [id number] Univers 16:20:00 16:20:00 RACHELE ashraf [facility] 2021-08-24 2021-08-24 Shoe Lining Fitter Vls-Lab [facility] 1.2.840.114 [id number] Univers 09:37:59 09:52:59 Visit Bud Ordonez 350.1.13.10 it[place] [phone] Nm mehnaz OLIVOAnh 353 [facility] 2021-08-24 2021-08-24 Outpatient R JOSÉ LUIS [facility] [id number] Univers 09:45:00 09:45:00 BUD ashraf [facility] 2021-08-24 2021-08-24 Outpatient Dg ORDONEZ [facility] [id number] Univers 08:45:00 09:36:57 BUD ashraf [facility] 2021-08-24 2021-08-24 Office [facility] 1.2.840.114 [id number] Univers 08:34:40 09:36:57 Visit Bud SPECIALTY 350.1.13.10 [place] [phone] Nm krissarpita CUELLAR 253 [facility] 2021-08-23 2021-08-23 Outpatient R MORGAN [facility] [id number] Univers 15:35:00 14:55:01 JOVITA andriy [facility] 2021-08-23 2021-08-23 Outpatient R MORGAN [facility] [id number] Univers 15:35:00 14:55:01 JOVITA andriy [facility] 2021-08-23 2021-08-23 Office [facility] 1.2.840.114 [id number] Univers 14:44:59 14:55:01 Visit Jovita ROBERTSON 350.1.13.10 lizbeth [place] [phone] Nm mehnaz FERRARI [address] [place] [address] 2021-08-23 2021-08-23 Office [facility] 1.2.840.114 [id number] Univers 12:50:56 14:54:14 Visit Jovita ROBERTSON 350.1.13.10 i ty [facility] 4.2.[place] [id number] Me dical NAL 044 [facility] 2021-08-22 2021-08-22 Ancillary Garrett Molina Hayward [facility] 1.2.840. 114 [id number] Univers 13:56:21 14:36:21 Visit Rachele Bansal 350.1.13.10 ity [facility] 4.2.[place] [phone] Nm dical NAL 179 [facility] 2021-08-22 2021-08-22 Outpatient R ROLF [facility] [id number] Univers 14:20:00 14:20:00 RACHELE itanh [facility] 2021-08-22 2021-08-22 Ancillary Jimy Cardona [facility] 1.2. 840.114 [id number] Univers 13:03:40 13:48:40 Visit Rachele Bansal 350.1.13.10 ity of [place] [phone] Nm dical NAL 178 [facility] 2021-08-22 2021-08-22 Outpatient R ROLF [facility] [id number] Univers 13:00:00 13:00:00 RACHELEMICHELLE ashraf [facility] 2021-08-15 2021-08-15 Ancillary Jimy Cardona [facility] 1.2. 840.114 [id number] Univers 13:46:13 15:26:31 Visit Rachele Bansal 350.1.13.10 ity [facility] 4.2.[place] [phone] Nm dical NAL 178 [facility] 2021-08-15 2021-08-15 Ancillary Ama Manzo [facility] 1 .2.840.114 [id number] Univers 14:22:38 15:22:38 Visit Rachele Bansal 350.1.13.10 ity [facility] 4.2.[place] [phone] Nm dical NAL 179 [facility] 2021-08-10 2021-08-10 Ancillary Jimy Cardona [facility] 1.2. 840.114 [id number] Univers 08:47:18 09:32:18 Visit Rachele Bansal 350.1.13.10 ity of [place].2.[place] [phone] Nm dical NAL 178 [facility] 2021-08-08 2021-08-08 Ancillary Jimy Cardona [facility] 1.2. 840.114 [id number] Univers 13:02:30 13:47:30 Visit Rachele Bansal 350.1.13.10 ity of [place].2.[place] [phone] Nm dical NAL 178 [facility] 2021-08-08 2021-08-08 Alla Mathis DEELLA 1.2.840.114 [id number] Univers 00:00:00 00:00:00 Lakeshia ROBERTSON 350.1.13.10 ity of [place] 4.[place].2.[place] [phone] Nm dical NAL 231 [facility] 2021-08-08 2021-08-08 Refill Del DEELLA 1.2.840.114 [id number] Univers 00:00:00 00:00:00 Lakeshia ROBERTSON 350.1.13.10 ity of [place].2.[place] [phone] Nm dical NAL 044 [facility] 2021-08-03 2021-08-03 Ancillary Jimy Cardona [facility] 1.2. 840.114 [id number] Univers 13:13:49 15:00:33 Visit Rachele Bansal 350.1.13.10 ity of [place] [phone] Nm dical NAL 178 [facility] 2021-08-01 2021-08-01 Ancillary Jimy Cardona [facility] 1.2. 840.114 [id number] Univers 14:39:27 15:37:16 Visit Rachele Bansal 350.1.13.10 ity of [place] [phone] Nm dical NAL [address] [facility] 2021-07-27 2021-07-27 Ancillary Jimy Cardona [facility] 1.2. 840.114 [id number] Univers 13:22:18 14:41:07 Visit Rachele Bansal 350.1.13.10 ity of [place].2.[place] [phone] Nm dical NAL [address] [facility] 2021-07-25 2021-07-25 Ancillary Jimy Cardona [facility] 1.2. 840.114 [id number] Univers 12:56:36 13:41:36 Visit Rachele Bansal 350.1.13.10 ity [facility] 4.2.7.2.[place] [phone] Nm dical NAL 178 [facility] 2021-07-25 2021-07-25 Telephone Luis M [facility] 1.2.840.114 [id number] Univers 00:00:00 00:00:00 [facility] 350.1.13.10 ity of [facility] 4.2.7.2.686 Matt as FERNANDEZ?BLEA [phone] Nm dicarpita BERRY 092 [facility] OFFICE [facility] 2021-07-20 2021-07-20 Ancillary Jimy Cardona [facility] 1.2. 840.114 [id number] Univers 13:03:06 14:18:12 Visit Rachele Bansal 350.1.13.10 ity [facility] 4.2.7.2.[place] [phone] Nm dical NAL 178 [facility] 2021-07-20 2021-07-20 Outpatient R ROLF [facility] [id number] Univers 13:00:00 14:18:12 RACHELE ity of [facility] 2021-07-19 2021-07-19 Office Jannette Vázquez [facility] 1.2.840.114 [id number] Univers 09:47:56 11:03:40 Visit E SPECIALTY 350.1.13.10 it[place] of [place]2.[place] [phone] Nm mehnaz CUELLAR 201 [facility] 2021-07-19 2021-07-19 Outpatient R KATHIE JANNETTE [facility] [id number] [facility] 10:15:00 10:15:00 ity of [facility] 2021-07-18 2021-07-18 Ancillary Jimy Cardona [facility] 1.2. 840.114 [id number] [facility] 12:59:20 15:15:55 Visit Rachele Bansal 350.1.13.10 ity of [place].2.[place] [phone] Nm dical nal 178 [facility] 2021-07-18 2021-07-18 Patient Kathie Jannette [facility] 1.2.840.114 [id number] Univers 00:00:00 00:00:00 Secure Msg E SPECIALTY 350.1.13.10 [place] AT [phone] Nm mehnaz CUELLAR 201 [facility] 2021-07-18 2021-07-18 Orders Doctor NANCY 1.2.840.114 [id number] Univers 00:00:00 00:00:00 Only Unassigned, MELANIE 350.1.13.10 ity of [facility] 4.2.7.2.686 Matt as [phone] [address] 2021-07-14 2021-07-14 Telephone Del [facility] 1.2.840.114 [id number] Univers 00:00:00 00:00:00 Lakeshia Robretson 350.1.13.10 ity of [place].2.[place] [phone] Nm dical nal 044 [facility] 2021-07-13 2021-07-13 Telephone [facility] 1.2.840.114 [id number] Univers 00:00:00 00:00:00 E SPECIALTY 350.1.13.10 it[place] of [place]2.[place]2.[place] AT [phone] Nm dical VICTORY 201 [facility] 2021-07-11 2021-07-11 Ancillary Jimy Cardona [facility] 1.2. 840.114 [id number] Univers 13:08:46 14:52:03 Visit Rachele Bansal 350.1.13.10 it[place] of [place].2.[place] [phone] Nm dical nal 178 [facility] 2021-07-11 2021-07-11 Orders Doctor NANCY 1.2.840.114 [id number] Univers 00:00:00 00:00:00 Only Unassigned, MELANIE 350.1.13.10 ity of [place] [facility] 4.2.7.2.686 Matt as [phone] [address] 2021-07-04 2021-07-04 Office José Luis [facility] 1.2.840.114 [id number] Univers 08:34:35 09:19:35 Visit Bud SPECIALTY 350.1.13.10 it[place] of [place]2.[place] AT [phone] Nm dicarpita OLIVOY 253 [facility] 2021-07-04 2021-07-04 Outpatient R JOSÉ LUIS [facility] [id number] Univers 09:15:00 09:15:00 BUD ity of [facility] 2021-07-04 2021-07-04 Telephone José Luis [facility] 1.2.057.039 [id number] Univers 00:00:00 00:00:00 Bud SPECIALTY 350.1.13.10 it[place] of [place] AT [phone] Nm dical VICTORY 253 [facility] 2021-06-29 2021-06-30 Ancillary Jimy Cardona [facility] 1.2. 840.114 [id number] Univers 13:04:18 19:13:36 Visit Rachele Bansal 350.1.13.10 ity of [place].2.[place].2.[place] [phone] Nm dical nal 178 [facility] 2021-06-29 2021-06-29 Orders Doctor NANCY 1.2.840.114 [id number] Univers 00:00:00 00:00:00 Only Unassigned, MELANIE 350.1.13.10 ity of [facility] 4.2.7.2.686 Matt as [phone] [facility] 009 [place] 2021-06-28 2021-06-28 Telephone NANCY Dutta 1.2.787.909 [id number] Univers 00:00:00 00:00:00 Ghadahelena NAVARRO 350.1.13.10 it y of HOSPITAL 4.2.7.2.686 Matt as [phone] [facility] 019 [place] 2021-06-28 2021-06-28 Telephone Musa [facility] 1.2.498.443 [id number] Univers 00:00:00 00:00:00 [facility] 350.1.13.10 it y of [place] 4.2.7.2.686 Matt as Fernandze?Blea [phone] [address] Office [facility] 2021-06-27 2021-06-27 Ancillary Jimy Cardona [facility] 1.2. 840.114 [id number] Univers 13:13:08 14:22:17 Visit Rachele Bansal [place] 350.1.13.10 ity of [place] [phone] Nm dical [address] 2021-06-27 2021-06-27 Laboratory Only, Ang Db Test [facility] 1.2.8 40.114 [id number] Univers 11:10:49 11:25:49 Only Musa [facility] 350.1.13.10 ity of [place] 4.2.7.2.686 Matt as Fernandez?Blea [phone] [address] Office [facility] 2021-06-27 2021-06-27 Outpatient R MUSA [facility] [id number] Univers 11:15:00 11:15:00 POOJA ity [facility] 2021-06-24 2021-06-24 Jossy Mathis [facility] 1.2.840.114 [id number] Univers 00:00:00 00:00:00 Lakeshia Robertson 350.1.13.10 it[place] of [place] [phone] Nm mehnaz [facility] [address] 2021-06-20 2021-06-20 Nurse Therapy, Adc Covid Infusion [facility] 1.2.840.114 [id number] Univers 14:13:10 15:13:10 Visit Eamon Barrow 350.1.13.10 ity of [place].2.[place].2.[place] [phone] [facility] 053 [place] 2021-06-20 2021-06-20 Outpatient R DANIAL [facility] [id number] Univers 14:30:00 14:30:00 EAMON ashraf [facility] 2021-06-13 2021-06-13 Urgent [facility] 1.2.840.114 [id number] Univers 14:46:03 15:25:21 Care [facility] 350.1.13.10 i ty of [place] 4.2.7.2.686 Matt as Fernandez?Blea [phone] [address] Medical Office Building 2021-06-13 2021-06-13 Outpatient R MARGARET [facility] [id number] Univers 15:00:00 15:00:00 MAHAMED ashraf o f [facility] 2021-06-13 2021-06-13 Orders Doctor CRUZ 1.2.840.114 [id number] Univers 00:00:00 00:00:00 Only Unassigned, MELANIE 350.1.13.10 ity of [facility] 4.2.7.2.686 Matt as [phone] [address] 2021-06-13 2021-06-13 Telephone [facility] 1.2.840.114 [id number] Univers 00:00:00 00:00:00 [facility] 350.1.13.10 i ty of [place] 4.2.7.2.686 Matt as Fernandez?Blea [phone] [address] Medical Office Building 2021-06-07 2021-06-07 Ancillary Therapy-Susana DhillonFph-Gq-Onrgg [facility] 1.2.840.114 [id number] Univers 14:12:10 15:31:14 Visit Art [facility] 350.1.13.10 ity of [place] 4.2.7.2.686 [facility] [phone] [address] ([facility]) 2021-06-07 2021-06-07 Outpatient R ROQUE [facility] [id number] Univers 14:30:00 14:30:00 [facility] 2021-05-15 2021-05-15 Office [facility] 1.2.840.114 [id number] Univers 08:27:02 09:23:57 Visit [facility] 350.1.13.10 it y of [place] 4.2.7.2.[address] [facility] [phone] [place] 910858 [place] Office Building 2021-05-15 2021-05-15 [facility] [id number] Univers 08:30:00 08:30:00 YAN [facility] 2021-05-10 2021-05-10 Outpatient R JANNETTE VÁZQUEZ [facility] [id number] Univers 10:30:00 10:30:00 ity [facility] 2021-04-26 2021-04-26 Outpatient R ADRIEN [facility] [id number] Univers 13:30:00 13:30:00 HEATHER itanh [facility] 2021-04-24 2021-04-24 Outpatient R FREDDIE [facility] [id number] Univers 09:00:00 09:00:00 YAN [facility] 2021-04-20 2021-04-20 Outpatient R [facility] [id number] Univers 08:20:00 08:20:00 ity [facility] 2021-04-17 2021-04-17 Outpatient R [facility] [id number] Univers 08:00:00 08:00:00 ity [facility] 2021-04-17 2021-04-17 Orders Doctor NANCY 1.2.840.114 [id number] Univers 00:00:00 00:00:00 Only Unassigned, MELANIE 350.1.13.10 ity of [place] [facility] 4.2.7.2.686 Matt as [phone] [address] 2021-04-10 2021-04-10 Outpatient [facility] [id number] Univers 14:40:00 14:40:00 LAKESHIA [facility] 2021-03-23 2021-03-23 Outpatient [facility] [id number] Univers 13:45:00 13:45:00 [facility] 2021-03-14 2021-03-14 [facility] [id number] Univers 15:00:00 15:00:00 [facility] 2021-03-13 2021-03-13 Outpatient R [facility] [id number] Univers 09:00:00 09:00:00 [facility] 2021-03-03 2021-03-03 [facility] [id number] Univers 13:20:00 13:20:00 JOSH [facility] 2021-03-02 2021-03-02 Outpatient R [facility] [id number] Univers 17:20:00 17:20:00 [facility] 2021-02-28 2021-02-28 [facility] [id number] Univers 14:00:00 14:00:00 LIBRADO [facility] 2021-02-23 2021-02-23 Out[facility] [id number] Univers 14:00:00 14:00:00 RACHELE [facility] 2021-02-21 2021-02-21 Outpatient R ELYSE [facility] [id number] Univers 10:00:00 10:00:00 JAIMIE [facility] 2021-02-16 2021-02-16 [facility] [id number] Univers 10:30:00 10:30:00 [facility] 2021-01-31 2021-01-31 Outpatient R DADA SALEH [facility] [id number] Univers 15:00:00 15:00:00 DADA SALEH [facility] 2021-01-30 2021-01-30 Outpatient R STEWART, [facility] [id number] Univers 15:00:00 15:00:00 DANNY hughes [facility] 2021-01-25 2021-01-25 Outpatient R ROQUE, [facility] [id number] Univers 14:30:00 14:30:00 ART [facility] 2021-01-24 2021-01-24 Outpatient R ELYSE, [facility] [id number] Univers 11:00:00 11:00:00 JULIOCESARAlberto [facility] 2021-01-11 2021-01-11 Outpatient R MARGARET, [facility] [id number] Univers 09:30:00 09:30:00 MAHAMED [facility] 2021-01-09 2021-01-09 Outpatient R [facility] [id number] Univers 09:00:00 09:00:00 [facility] 2020-12-30 2020-12-30 Outpatient [facility] [id number] Univers 14:50:00 14:50:00 [facility] 2020-12-27 2020-12-27 Outpatient STEWART, [facility] [id number] Univers 00:00:00 00:00:00 DANNY hughes [facility] 2020-12-22 2020-12-22 Outpatient R ROLF, [facility] [id number] Univers 14:20:00 14:20:00 RACHELE [facility] 2020-12-13 2020-12-13 Outpatient R STEWART, [facility] [id number] Univers 16:20:00 16:20:00 DANNY hughes [facility] 2020-12-07 2020-12-07 Outpatient R SAMMIE, [facility] [id number] Univers 14:50:00 14:50:00 TORSTEN [facility] 2020-11-29 2020-11-29 Outpatient R ROLF, [facility] [id number] Univers 13:40:00 13:40:00 RACHELE anh [facility] 2020-11-16 2020-11-16 Outpatient R SURI, [facility] [id number] Univers 00:00:00 00:00:00 RJ anh [facility] 2020-11-15 2020-11-15 Outpatient R ROQUE, [facility] [id number] Univers 15:00:00 15:00:00 ART anh [facility] 2020-11-07 2020-11-07 Outpatient R STEWART, [facility] [id number] Univers 11:00:00 11:00:00 DANNY ashraf o ruth [facility] 2020-11-02 2020-11-02 Outpatient R SURI, [facility] [id number] Univers 09:30:00 09:30[facility] 2020-10-21 2020-10-21 Outpatient R [facility] [id number] Univers 16:40:00 16:40:00 [facility] 2020-10-18 2020-10-18 Outpatient R SILVIA [facility] [id number] Univers 14:40:00 14:40:00 SANDIMONI hayward [facility] 2020-10-14 2020-10-14 Outpatient R SURI, [facility] [id number] Univers 10:00:00 10:00:00 [facility] 2020-08-29 2020-08-29 Telephone [facility] 1.2.840.114 [id number] 00:00:00 00:00:00 Jovita Robertson 350.1.13.10 [place] 4.2.7.2.686 Terrance [phone] [address] 2020-08-24 2020-08-24 Outpatient [facility] [id number] Univers 11:15:00 11:15:00 LAKESHIA [facility] 2020-08-24 2020-08-24 Shoe Lining Fitter 2, Adc Lab [facility] 1.2.840.114 [id number] 10:59:50 11:14:50 Visit Marcelo 350.1.13.10 [place] 4.2.7.2.686 Professio [phone] nal 353 [facility] 2020-08-16 2020-08-16 Office [facility] 1.2.840.114 [id number] 13:06:10 14:31:10 Visit Lakeshia Robertson 350.1.13.10 [place] 4.2.7.2.686 Professio [phone] nal 231 [facility] 2020-08-16 2020-08-16 Outpatient R [facility] [id number] Univers 13:00:00 13:00:00 LAKESHIA ashraf [facility] 2020-06-23 2020-06-23 Outpatient R [facility] [id number] Univers 11:20:00 [facility] 2020-[facility]-17 2020-06-17 [facility] [id number] Univers 09:30:00 09:30:00 YAMILA andriy o f [facility] 2020-06-17 2020-06-17 Outpatient R DANIAL [facility] [id number] Univers 09:30:00 09:30:00 MISOMMER andriy o ruth [facility] 2020-06-15 2020-06-15 [facility] [id number] Univers 14:40:00 14:40:00 RACHELE [facility] 2020-06-07 2020-06-07 Out[id number] Univers 09:55:00 09:55:00 [facility] 2020-05-09 2020-05-09 Outpatient R ARIEL [facility] [id number] Univers 10:40:00 10:40:00 MAXIMO ashraf [facility] 2020-05-03 2020-05-03 [facility] [id number] Univers 10:40:00 10:40:00 TAMIKO ashraf [facility] 2020-04-26 2020-04-26 Outpatient Dg [facility] [id number] Univers 11:41:39 11:41:39 TAMIKO ashraf [facility] 2020-04-26 2020-04-26 Outpatient R RAMACHANDRAN, [facility] [id number] Univers 00:00:00 00:00:00 TAMIKO ashraf [facility] 2020-04-11 2020-04-11 Outpatient R JOSIE TIMMONS [facility] [id number] Univers 10:00:00 10:00:00 IAINJOSIE KUHN [facility] 2020-03-30 2020-03-30 Outpatient R RAMACHANDRAN, [facility] [id number] Univers 11:00:00 11:00:00 TAMIKO ity [facility] 2020-03-15 2020-03-15 Outpatient R MADIE [facility] [id number] Univers 11:40:00 11:40:00 TAMIKO ity [facility] 2020-03-03 2020-03-03 Outpatient R MATHIS, [facility] [id number] Univers 16:00:00 16:00:00 LAKESHIATOMAS ashraf [facility] 2020-03-01 2020-03-01 Outpatient R MATHIS, [facility] [id number] Univers 08:40:00 08:40:00 LAKESHIATOMAS ashraf [facility] 2020-02-24 2020-02-24 Outpatient R RAMACHANDRAN, [facility] [id number] Univers 11:00:00 11:00:00 TAMIKO ity [facility] 2020-02-16 2020-02-16 Outpatient R WINSTON [facility] [id number] Univers 09:03:11 23:59:00 JOSE Meza [facility] 2020-02-08 2020-02-08 Outpatient R MATHIS, [facility] [id number] Univers 13:20:00 13:20:00 LAKESHIATOMAS ashraf [facility] 2020-01-22 2020-01-22 Outpatient R FRANCISTOREY [facility] [id number] Univers 09:45:00 09:45:00 JOSE Meza [facility] 2020-01-20 2020-01-20 Outpatient R FRANCISJANELVAISHALIAMAYA [facility] [id number] Univers 14:30:00 14:30:00 JOSE Meza [facility] 2019-12-24 2019-12-24 Outpatient R MADIE [facility] [id number] Univers 10:20:00 10:20:00 TAMIKO anh [facility] 2019-12-18 2019-12-18 Outpatient R MORGAN [facility] [id number] Univers 10:20:00 10:20:00 JOVITA anh [facility] 2019-12-03 2019-12-03 Outpatient R MADIE [facility] [id number] Univers 10:20:00 10:20:00 TAMIKO anh [facility] 2019-11-20 2019-11-20 Outpatient R MORGAN [facility] [id number] Univers 15:20:00 15:20:00 JOVITA anh [facility] 2019-11-19 2019-11-19 Outpatient R MADIE [facility] [id number] Univers 09:56:55 23:59:00 TAMIKO [facility] 2019-11-05 2019-11-05 Outpatient R SANGITATUNDE, [facility] [id number] [facility] 10:41:03 [facility]05 Outpatient R SANGITATUNDE [facility] [id number] [facility] 10:41:03 23:59[facility] 2019-09-29 Outpatient R MARGARET, [facility] [id number] Univers 11:00:00 11:28:31 MAHAMED hayward [facility] 2018-02-03 2018-02-03 [facility] [id number] [place] 09:00:00 09:00:00 t; Rakel ILMON M.D. ans JEFFREY, M.D. 2017-12-30 2017-12-30 [facility] [id number] [place] 11:30:00 11:30:00 t; Rakel LIMON M.D. ans JEFFREY, M.D. 2017-12-23 2017-12-23 LUCIAN Banerjee [facility] [id number] [place] 11:30:00 11:30:00 t; Rakel LIMON M.D. ans JEFFREY, M.D. 2017-11-04 2017-11-04 Appointmen ANNA, UTP Neurology [id number] [place] 10:00:00 10:00:00 t; Rakel LIMON M.D. ans JEFFREY, M.D. 2017-10-28 2017-10-28 Appointmen ANNA, UTP UTP [id number] [place] 10:00:00 10:00:00 t; Rakel LIMON M.D. ans JEFFREY, M.D. 2017-10-15 2017-10-15 Appointmen OKPALA, UTP UTP [id number] [place] 11:30:00 11:30:00 t; OKPALA, MUNACHI, SOLUTIONS MANAGER Physici MUNACHI, ans SOLUTIONS MANAGER 2017-09-11 2017-09-11 Appointmen OKPALA, UTP UTP [id number] [place] 09:30:00 09:30:00 t; OKPALA, MUNACHI, SOLUTIONS MANAGER Physici MUNACHI, ans SOLUTIONS MANAGER 2017-09-10 2017-09-10 Appointmen OKPALA, UTP UTP [id number] [place] 09:30:00 09:30:00 t; OKPALA, MUNACHI, SOLUTIONS MANAGER Physici MUNACHI, ans SOLUTIONS MANAGER 2017-09-09 2017-09-09 Appointmen CASTILLO, UTP UTP [id number] [place] 10:00:00 10:00:00 t; Rakel LIMON M.D. ans JEFFREY, M.D. 2017-07-29 2017-07-29 Appointmen ANNA, UTP UTP [id number] [place] 11:30:00 11:30:00 t; Rakel LIMON M.D. ans JEFFREY, M.D. 2017-07-22 2017-07-22 Appointmen ANNA, UTP UTP [id number] [place] 11:30:00 11:30:00 t; Rakel LIMON M.D. ans JEFFREY, M.D. 2017-06-24 2017-06-24 Appointmen ANNA, UTP UTP [id number] [place] 14:00:00 14:00:00 t; Rakel LIMON M.D. ans JEFFREY, M.D. 2017-06-14 2017-06-15 Outpt Diag nullFlavo [facility] [id number] Memoria 17:20:00 04:59:00 Services r Outpatient 00 l Imaging [facility] 2017-06-14 2017-06-14 Appointmen CHIDILUCIAN UTP [id number] [place] 10:00:00 10:00:00 t; ROBSON MURILLO, SOLUTIONS MANAGER Physici MUNACHI, ans SOLUTIONS MANAGER 2017-03-15 2017-03-15 Appointmen RUBYPRAVINAlbertoLUCIAN UTP [id number] [place] 10:30:00 10:30:00 t; ROBSON MURILLO, SOLUTIONS MANAGER Physici MUNACHI, ans SOLUTIONS MANAGER 2017-01-05 2017-01-05 Emergency nullFlavo [facility] [id number] Memoria 06:29:00 11:27:00 r [place] 05 l [facility] 2014-03-21 2014-03-21 EC nullFlavo [facility] [id number] Memoria 02:06:00 06:23:00 Emergency r Srikanth 01 l [facility] 2014-03-18 2014-03-19 OBS nullFlavo [facility] [id number] Memoria 01:46:00 17:05:00 Observatio r [place] 00 l n Patient [facility] 2013-11-30 2014-01-01 Inpatient nullFlavo [facility] [id number] Memoria 23:52:00 18:40:00 Rehab r [place] 66 l [facility] 2013-11-26 2013-11-30 Inpatient nullFlavo [facility] [id number] Memoria 12:38:00 23:23:00 r Srikanth [id number] [address] Results Test Description Test Time Test Comments Results Result Comments Source HEMATOLOGY 2017-01-05 09:54:30 Test Item Value Reference Range Interpretation Comme nts Sed Rate (test code = Sed 28 See_Comment [ Automated message] The system which Rate) generated this result transmitted reference range : <=20. The reference range was not u sed to interpret this result as dequan l/abnormal. [facility]rwavzvGETCIUXYYX3552-09-[facility] 09:54:30 Test Item Value Reference Range Interpretation Comments C-REACTIVE PROTEIN (test code = 6.7 C-REACTIVE PROTEIN) [facility] [id number] 09:19:56 Test Item Value Reference Range Interpretation Comments UA Spec Grav (test code = UA Spec 1.010 1 Grav) [facility] AND [id number] 09:19:56 Test Item Value Reference Range Interpretation Comments UA Protein (test code = UA Negative mg/dL Protein) [facility] AND [id number] 09:19:56 Test Item Value Reference Range Interpretation Comments UA pH (test code = UA pH) 6.0 1 5.0-8.0 [facility] AND [id number] 09:19:56 Test Item Value Reference Range Interpretation Comments UA Ketones (test code = UA Negative mg/dL Ketones) [facility] AND [id number] 09:19:56 Test Item Value Reference Range Interpretation Comments UA Glucose (test code = UA Negative mg/dL Glucose) [facility] AND [id number] 09:19:56 Test Item Value Reference Range Interpretation Comments UA Bili (test code = Negative *NA*(01/05/17 UA Bili) 4:19 AM) [facility] AND [id number] 09:19:56 Test Item Value Reference Range Interpretation Comments UA Color (test code = Yellow *NA*(01/05/17 UA Color) 4:19 AM) [facility] AND [id number] 09:19:56 Test Item Value Reference Range Interpretation Comments UA Turbidity (test code = Clear (01/05/17 4:19 UA Turbidity) AM) [facility] AND [id number] 09:19:56 Test Item Value Reference Range Interpretation Comments UA Urobilinogen (test code = UA 0.2 0.1-1.0 Urobilinogen) [facility] AND [id number] 09:19:56 Test Item Value Reference Range Interpretation Comments UA Blood (test code = Negative (01/05/17 4:19 UA Blood) AM) [facility] AND [id number] 09:19:56 Test Item Value Reference Range Interpretation Comments UA Leuk Est (test Negative (01/05/17 4:19 code = UA Leuk Est) AM) [facility] AND [id number] 09:19:56 Test Item Value Reference Range Interpretation Comments UA Nitrite (test code Negative (01/05/17 4:19 = UA Nitrite) AM) [facility] AND [id number] 09:19:56 Test Item Value Reference Range Interpretation Comments UA WBC (test code = UA WBC) 0-2 /HPF [facility] AND [id number] 09:19:56 Test Item Value Reference Range Interpretation Comments UA Sq Epi (test code = UA Sq Epi) Few /LPF [facility] AND [id number] 09:19:56 Test Item Value Reference Range Interpretation Comments UA Bacteria (test code = UA Occasional /HPF Bacteria) [facility] AND [id number] 09:19:56 Test Item Value Reference Range Interpretation Comments UA RBC (test code = 0-2 /HPF See_Comment [Automa blayne message] The UA RBC) system which ge nerated this result tra nsmitted reference range : <=2. The reference range was not used to interpr et this result as dequan l/abnormal. [facility] AND [id number] 09:19:56 Test Item Value Reference Range Interpretation Comments UA Mucus (test code = UA Mucus) Few /LPF [facility]2017-04-15 06:57:00 Test Item Value Reference Range Interpretation Comments eGFR (test code = eGFR) 78 [facility]2017-04-15 06:57:00 Test Item Value Reference Range Interpretation Comments Calcium Lvl (test code = Calcium Lvl) 9.1 8.5-10.5 [facility]2017-04-15 06:57:00 Test Item Value Reference Range Interpretation Comments AGAP (test code = AGAP) 11.2 10.0-20.0 [facility]2017-04-15 06:57:00 Test Item Value Reference Range Interpretation Comments CO2 (test code = CO2) 30 24-32 [facility]2017-04-15 06:57:00 Test Item Value Reference Range Interpretation Comments Chloride Lvl (test code = Chloride Lvl) 103 95-109 [facility]2017-04-15 06:57:00 Test Item Value Reference Range Interpretation Comments Potassium Lvl (test code = Potassium 4.2 3.5-5.1 Lvl) [facility]2017-04-15 06:57:00 Test Item Value Reference Range Interpretation Comments Sodium Lvl (test code = Sodium Lvl) 140 135-145 [facility]2017-04-15 06:57:00 Test Item Value Reference Range Interpretation Comments Creatinine Lvl (test code = Creatinine 0.87 0.50-1.40 Lvl) [facility]2017-04-15 06:57:00 Test Item Value Reference Range Interpretation Comments BUN (test code = BUN) 18 7-22 [facility]2017-04-15 06:57:00 Test Item Value Reference Range Interpretation Comments Glucose Lvl (test code = Glucose Lvl) 128 70-99 [facility]XjvionyYBSOMONVKQ4812-46-41 06:57:00 Test Item Value Reference Range Interpretation Comments Monocytes # (test code 0.6 See_Comment [Aut omated message] The = Monocytes #) system which generated this result tra nsmitted reference range : <=0.8. The reference r celio was not used to int erpret this result as normal/abnormal . [facility] HeightsDlgcynfZJUSNSVUIR2885-37-92 06:57:00 Test Item Value Reference Range Interpretation Comments Eosinophils # (test code 0.2 See_Comment [A utomated message] The = Eosinophils #) system whic h generated this result tra nsmitted reference range : <=0.5. The reference r celio was not used to int erpret this result as normal/abnormal . [facility] HeightsPdvvxvpRHBMSLWRGV9067-25-88 06:57:00 Test Item Value Reference Range Interpretation Comments Basophils # (test code 0.1 See_Comment [Aut omated message] The = Basophils #) system which generated this result tra nsmitted reference range : <=0.2. The reference r celio was not used to int erpret this result as normal/abnormal . [facility] HeightsOmmvnbbMHUBTYDCXR8519-10-11 06:57:00 Test Item Value Reference Range Interpretation Comments Eosinophils (test code = 2.4 See_Comment [A utomated message] The Eosinophils) system which ge nerated this result tra nsmitted reference range : <=4.0. The reference r celio was not used to int erpret this result as normal/abnormal . [facility] HeightsZemisdzMVRTJTUPQC9075-27-67 06:57:00 Test Item Value Reference Range Interpretation Comments Basophils (test code = 0.6 See_Comment [Aut omated message] The Basophils) system which ge nerated this result tra nsmitted reference range : <=1.0. The reference r celio was not used to int erpret this result as normal/abnormal . [facility] HeightsKzgylnxVYMQTFVUUH5158-77-79 06:57:00 Test Item Value Reference Range Interpretation Comments Segs-Bands # (test code = Segs-Bands #) 5.3 1.5-8.1 [facility] HeightsTsudkgwGEXXWWQQOH9119-23-95 06:57:00 Test Item Value Reference Range Interpretation Comments Segs (test code = Segs) 55.9 45.0-75.0 [facility] HeightsWkvwseyMLPDXLVWUZ8953-58-72 06:57:00 Test Item Value Reference Range Interpretation Comments Lymphocytes (test code = Lymphocytes) 34.3 20.0-40.0 [facility] HeightsUoslsshZQGXBAEFIT8416-92-98 06:57:00 Test Item Value Reference Range Interpretation Comments Monocytes (test code = Monocytes) 6.8 2.0-12.0 [facility] HeightsPczcvgpANXDKMPCZN8307-97-65 06:57:00 Test Item Value Reference Range Interpretation Comments Lymphocytes # (test code = Lymphocytes 3.2 1.0-5.5 #) [facility] HeightsEspzlooWUBTLCHZDN9172-41-56 06:57:00 Test Item Value Reference Range Interpretation Comments Hct (test code = Hct) 40.3 36.0-48.0 [facility] HeightsLoerrhdYRWJKKNAQJ6867-86-84 06:57:00 Test Item Value Reference Range Interpretation Comments Hgb (test code = Hgb) 14.2 12.0-16.0 [facility] HeightsBdiqtmqOFGCNFKSOO2990-05-08 06:57:00 Test Item Value Reference Range Interpretation Comments RBC (test code = RBC) 4.54 4.20-5.40 [facility] HeightsRfohcpgGIPUTUWISW5333-53-23 06:57:00 Test Item Value Reference Range Interpretation Comments WBC (test code = WBC) 9.4 3.7-10.4 [facility] HeightsYuetitgWPJDHRPFIA7695-06-39 06:57:00 Test Item Value Reference Range Interpretation Comments MCV (test code = MCV) 88.6 80.0-98.0 [facility] HeightsOkrwawzREPEDKFIJA5749-83-89 06:57:00 Test Item Value Reference Range Interpretation Comments MCH (test code = MCH) 31.3 pg 27.0-31.0 [facility] HeightsBzhejjkRMULBJAEPK9950-43-48 06:57:00 Test Item Value Reference Range Interpretation Comments MPV (test code = MPV) 7.4 7.4-10.4 [facility] HeightsRjnospfYOMGSCCBDT8760-12-53 06:57:00 Test Item Value Reference Range Interpretation Comments Platelet (test code = Platelet) 295 133-450 [facility] HeightsGfmeamzFIDRSVECZL3253-59-88 06:57:00 Test Item Value Reference Range Interpretation Comments RDW (test code = RDW) 13.7 11.5-14.5 [facility] HeightsFfjgcdcXJDQEYZWOA7140-92-11 06:57:00 Test Item Value Reference Range Interpretation Comments MCHC (test code = MCHC) 35.3 32.0-36.0 [facility] AND [id number] 13:57:55 Test Item Value Reference Range Interpretation Comments UA Spec Grav (test code = UA Spec 1.015 1 Grav) [facility] AND [id number] 13:57:55 Test Item Value Reference Range Interpretation Comments UA pH (test code = UA pH) 6.0 1 5.0-8.0 [facility] AND [id number] 13:57:55 Test Item Value Reference Range Interpretation Comments UA Turbidity (test code = Clear (03/18/14 8:57 UA Turbidity) AM) [facility] AND [id number] 13:57:55 Test Item Value Reference Range Interpretation Comments UA Urobilinogen (test code = UA 0.2 0.1-1.0 Urobilinogen) [facility] AND [id number] 13:57:55 Test Item Value Reference Range Interpretation Comments UA Leuk Est (test Negative (03/18/14 8:57 code = UA Leuk Est) AM) [facility] AND [id number] 13:57:55 Test Item Value Reference Range Interpretation Comments UA Nitrite (test code Negative (03/18/14 8:57 = UA Nitrite) AM) [facility] AND [id number] 13:57:55 Test Item Value Reference Range Interpretation Comments UA Color (test code = Yellow *NA*(03/18/14 UA Color) 8:57 AM) [facility] AND [id number] 13:57:55 Test Item Value Reference Range Interpretation Comments UA Bili (test code = Negative *NA*(03/18/14 UA Bili) 8:57 AM) [facility] AND [id number] 13:57:55 Test Item Value Reference Range Interpretation Comments UA Ketones (test code = Trace *ABN*(03/18/14 UA Ketones) 8:57 AM) [facility] AND [id number] 13:57:55 Test Item Value Reference Range Interpretation Comments UA Blood (test code = Trace *ABN*(03/18/14 UA Blood) 8:57 AM) [facility] AND [id number] 13:57:55 Test Item Value Reference Range Interpretation Comments UA Glucose (test code Negative (03/18/14 8:57 = UA Glucose) AM) [facility] AND [id number] 13:57:55 Test Item Value Reference Range Interpretation Comments UA Protein (test code Negative (03/18/14 8:57 = UA Protein) AM) [facility] AND [id number] 13:57:55 Test Item Value Reference Range Interpretation Comments UA Sq Epi (test code = UA Sq Epi) Few /LPF [facility] AND [id number] 13:57:55 Test Item Value Reference Range Interpretation Comments UA RBC (test code = 0-2 /HPF See_Comment [Automa blayne message] The UA RBC) system which ge nerated this result tra nsmitted reference range : <=2. The reference range was not used to interpr et this result as dequan l/abnormal. [facility] AND [id number] 13:57:55 Test Item Value Reference Range Interpretation Comments UA WBC (test code = UA WBC) 0-2 /HPF [facility] AND [id number] 13:57:55 Test Item Value Reference Range Interpretation Comments UA Mucus (test code = None Seen (03/18/14 UA Mucus) 8:57 AM) [facility] AND [id number] 13:57:55 Test Item Value Reference Range Interpretation Comments UA Bacteria (test code = UA Moderate /HPF Bacteria) [facility]adbKUKKUM4257-70-97 11:20:00 Test Item Value Reference Range Interpretation Comments CHD Risk (test code = CHD Risk) 4.39 3.90-5.80 [facility] ClinicLnygzhqKFHNNY9277-69-16 11:20:00 Test Item Value Reference Range Interpretation Comments LDL (Calculated) (test code = LDL 120 (Calculated)) [facility] ClinicVuwpsurHVTBWQ9673-14-47 11:20:00 Test Item Value Reference Range Interpretation Comments Trig (test code = Trig) 145 [facility] ClinicXuuhcwyCKYECM5922-22-28 11:20:00 Test Item Value Reference Range Interpretation Comments Chol (test code = Chol) 193 [facility] ClinicYrdyzolLHKYMY5733-28-02 11:20:00 Test Item Value Reference Range Interpretation Comments HDL (test code = HDL) 44 [facility] ClinicYsvtlyxSDQPDI2267-57-22 11:20:00 Test Item Value Reference Range Interpretation Comments VLDL (test code = VLDL) 29 [facility] BPEIODIMP6114-55-79 11:20:00 Test Item Value Reference Range Interpretation Comments Hgb A1C (test code = Hgb A1C) 4.9 [facility]2014-06-26 02:54:00 Test Item Value Reference Range Interpretation Comments eGFR (test code = eGFR) 87 [facility]2014-06-26 02:54:00 Test Item Value Reference Range Interpretation Comments POC Creatinine (test code = POC 0.8 0.5-1.4 Creatinine) [facility]2014-06-26 02:35:26 Test Item Value Reference Range Interpretation Comments eGFR (test code = eGFR) 87 [facility]2014-06-26 02:35:26 Test Item Value Reference Range Interpretation Comments Calcium Lvl (test code = Calcium Lvl) 10.0 8.5-10.5 [facility] ClinicEuroMillions.[employer] [id number] 02:35:26 Test Item Value Reference Range Interpretation Comments Sodium Lvl (test code = Sodium Lvl) 140 135-145 [facility]2014-06-26 02:35:26 Test Item Value Reference Range Interpretation Comments Creatinine Lvl (test code = Creatinine 0.8 0.5-1.4 Lvl) [facility] ClinicEuroMill[facility] [id number] 02:35:26 Test Item Value Reference Range Interpretation Comments Chloride Lvl (test code = Chloride Lvl) 103 95-109 [facility]2014-06-26 02:35:26 Test Item Value Reference Range Interpretation Comments Potassium Lvl (test code = Potassium 4.0 3.5-5.1 Lvl) [facility] ClinicEuro[facility] [id number] 02:35:26 Test Item Value Reference Range Interpretation Comments CO2 (test code = CO2) 30 24-32 [facility]2014-06-26 02:35:26 Test Item Value Reference Range Interpretation Comments BUN (test code = BUN) 13 7-22 [facility]2014-06-26 02:35:26 Test Item Value Reference Range Interpretation Comments Glucose Lvl (test code = Glucose Lvl) 106 70-99 [facility]2014-06-26 02:35:26 Test Item Value Reference Range Interpretation Comments AGAP (test code = AGAP) 11.0 10.0-20.0 [facility] HeightsTdoojrfXOSXCKLDNP3248-41-07 02:35:26 Test Item Value Reference Range Interpretation Comments Basophils (test code = 1.4 See_Comment [Aut omated message] The Basophils) system which ge nerated this result tra nsmitted reference range : <=1.0. The reference r celio was not used to int erpret this result as normal/abnormal . [facility] HeightsStvmrtpAODEDHJYZR7699-43-08 02:35:26 Test Item Value Reference Range Interpretation Comments Segs-Bands # (test code = Segs-Bands #) 5.3 1.5-8.1 [facility] HeightsHgvoxogFRBNMNIRJA4586-00-43 02:35:26 Test Item Value Reference Range Interpretation Comments Segs (test code = Segs) 54.6 45.0-75.0 [place] [id number] 02:35:26 Test Item Value Reference Range Interpretation Comments Eosinophils # (test code 0.2 See_Comment [A utomated message] The = Eosinophils #) system whic h generated this result tra nsmitted reference range : <=0.5. The reference r celio was not used to int erpret this result as normal/abnormal . [facility] HeightsXuwdtcpRBESYWVMUN6704-17-93 02:35:26 Test Item Value Reference Range Interpretation Comments Basophils # (test code 0.1 See_Comment [Aut omated message] The = Basophils #) system which generated this result tra nsmitted reference range : <=0.2. The reference r celio was not used to int erpret this result as normal/abnormal . [facility] HeightsTdiogxsADZXYMLTZB0981-71-08 02:35:26 Test Item Value Reference Range Interpretation Comments Lymphocytes # (test code = Lymphocytes 3.7 1.0-5.5 #) [facility] HeightsDzdiysgYRMPRRIGXB1351-33-71 02:35:26 Test Item Value Reference Range Interpretation Comments Monocytes # (test code 0.4 See_Comment [Aut omated message] The = Monocytes #) system which generated this result tra nsmitted reference range : <=0.8. The reference r celio was not used to int erpret this result as normal/abnormal . [facility] HeightsMilqngdHDMEDJBMLA6525-23-15 02:35:26 Test Item Value Reference Range Interpretation Comments Monocytes (test code = Monocytes) 3.9 2.0-12.0 [facility] HeightsDcglnjaHCCRTPSIXQ8187-65-74 02:35:26 Test Item Value Reference Range Interpretation Comments Eosinophils (test code = 2.3 See_Comment [A utomated message] The Eosinophils) system which ge nerated this result tra nsmitted reference range : <=4.0. The reference r celio was not used to int erpret this result as normal/abnormal . [facility] HeightsVckbulvHTAATVIUSY3609-40-82 02:35:26 Test Item Value Reference Range Interpretation Comments Lymphocytes (test code = Lymphocytes) 37.8 20.0-40.0 [facility] HeightsNlpngjcVDKCXHSWEI4937-82-31 02:35:26 Test Item Value Reference Range Interpretation Comments RBC (test code = RBC) 4.83 4.20-5.40 [facility] HeightsUhsehinVNVRZVRWZQ2030-35-47 02:35:26 Test Item Value Reference Range Interpretation Comments MPV (test code = MPV) 8.1 7.4-10.4 [facility] HeightsWaufkcmEPOPJDPGTQ3111-94-47 02:35:26 Test Item Value Reference Range Interpretation Comments Hgb (test code = Hgb) 14.7 12.0-16.0 [facility] HeightsSpyxxggXFQBZLKKGW1985-97-61 02:35:26 Test Item Value Reference Range Interpretation Comments MCV (test code = MCV) 89.2 81.0-99.0 [facility] HeightsKkopfydIGDVFOGANT7077-53-69 02:35:26 Test Item Value Reference Range Interpretation Comments Hct (test code = Hct) 43.1 36.0-48.0 [facility] HeightsRtemhpvSDJCUNCQTM4312-58-36 02:35:26 Test Item Value Reference Range Interpretation Comments MCH (test code = MCH) 30.4 pg 27.0-31.0 [facility] HeightsWyytltfFWFGVYLFWR7018-92-08 02:35:26 Test Item Value Reference Range Interpretation Comments WBC (test code = WBC) 9.7 3.7-10.4 [facility] HeightsQqbyjhkEWJPTMXFBA1757-18-43 02:35:26 Test Item Value Reference Range Interpretation Comments RDW (test code = RDW) 12.8 11.5-14.5 [facility] HeightsMzdrcajDIHJGHLFKU8354-64-23 02:35:26 Test Item Value Reference Range Interpretation Comments Platelet (test code = Platelet) 372 133-450 [facility] HeightsYbpkiewAEPVWCDWNY3580-37-82 02:35:26 Test Item Value Reference Range Interpretation Comments MCHC (test code = MCHC) 34.0 32.0-36.0 [facility] HeightsBwjgfxiTNKUWCZPDH1964-59-92 02:35:26 Test Item Value Reference Range Interpretation Comments PT (test code = PT) 12.2 s 12.0-14.7 [facility] HeightsJstvrkjZCRUIZDWCD0902-71-52 02:35:26 Test Item Value Reference Range Interpretation Comments INR (test code = INR) 0.91 0.85-1.17 [facility] HeightsYbivwwfBSQVNOXBXE1398-90-54 02:35:26 Test Item Value Reference Range Interpretation Comments PTT (test code = PTT) 30.2 s 22.9-35.8 [facility] AND [id number] 19:39:00 Test Item Value Reference Range Interpretation Comments UA Urobilinogen (test code = UA <=1.0 mg/dL 0.1-1.0 Urobilinogen) [facility] AND [id number] 19:39:00 Test Item Value Reference Range Interpretation Comments UA Mucus (test code = UA Mucus) Few /LPF [facility] AND [id number] 19:39:00 Test Item Value Reference Range Interpretation Comments UA Bacteria (test code = UA Occasional /HPF Bacteria) [facility] [facility] AND [id number] 19:39:00 Test Item Value Reference Range Interpretation Comments UA Sq Epi (test code = UA Sq Epi) Few /LPF [facility] AND [id number] 19:39:00 Test Item Value Reference Range Interpretation Comments UA WBC (test code = 2 See_Comment [Automa blayne message] The UA WBC) system which ge nerated this result transmit blayne reference range : <=5. The reference range was not used to interpr et this result as dequan l/abnormal. [facility] AND [id number] 19:39:00 Test Item Value Reference Range Interpretation Comments UA Blood (test code = Negative (12/31/13 2:39 UA Blood) PM) [facility] AND [id number] 19:39:00 Test Item Value Reference Range Interpretation Comments UA Nitrite (test code Negative (12/31/13 2:39 = UA Nitrite) PM) [facility] AND [id number] 19:39:00 Test Item Value Reference Range Interpretation Comments UA Leuk Est (test code Small *ABN*(12/31/13 = UA Leuk Est) 2:39 PM) [facility] AND [id number] 19:39:00 Test Item Value Reference Range Interpretation Comments UA Glucose (test code = UA Negative mg/dL Glucose) [facility] AND [id number] 19:39:00 Test Item Value Reference Range Interpretation Comments UA Ketones (test code = UA Negative mg/dL Ketones) [facility] AND [id number] 19:39:00 Test Item Value Reference Range Interpretation Comments UA Bili (test code = Negative *NA*(12/31/13 UA Bili) 2:39 PM) [facility] AND [id number] 19:39:00 Test Item Value Reference Range Interpretation Comments UA Spec Grav (test code = UA Spec Grav) 1.017 [facility] AND [id number] 19:39:00 Test Item Value Reference Range Interpretation Comments UA Protein (test code = UA Protein) 20 mg/dL [facility] AND [id number] 19:39:00 Test Item Value Reference Range Interpretation Comments UA pH (test code = UA pH) 6.0 5.0-8.0 [facility] AND [id number] 19:39:00 Test Item Value Reference Range Interpretation Comments UA Turbidity (test code = Clear (12/31/13 2:39 UA Turbidity) PM) [facility] AND [id number] 19:39:00 Test Item Value Reference Range Interpretation Comments UA Color (test code = Yellow *NA*(12/31/13 UA Color) 2:39 PM) [facility]VaqkexePMTTROVAKL1688-35-50 11:00:00 Test Item Value Reference Range Interpretation Comments RDW (test code = RDW) 14.7 11.5-14.5 [facility] HeightsUuduoszDCFEDNWDAC8488-63-42 11:00:00 Test Item Value Reference Range Interpretation Comments Hct (test code = Hct) 37.8 36.0-48.0 [facility] HeightsVjqsjcaRTPWQMFGCH6710-60-79 11:00:00 Test Item Value Reference Range Interpretation Comments Hgb (test code = Hgb) 12.7 12.0-16.0 [facility] HeightsDflvorcGGTIHRTDJL6142-47-46 11:00:00 Test Item Value Reference Range Interpretation Comments WBC (test code = WBC) 8.3 3.7-10.4 [facility] HeightsQbaheamFPVKYRCLFY8969-50-16 11:00:00 Test Item Value Reference Range Interpretation Comments RBC (test code = RBC) 4.21 4.20-5.40 [facility] HeightsPnruskhDEFGFYLALR9493-22-19 11:00:00 Test Item Value Reference Range Interpretation Comments MCHC (test code = MCHC) 33.6 32.0-36.0 [facility] HeightsWlsonkoPUOFJXBLCF7963-86-73 11:00:00 Test Item Value Reference Range Interpretation Comments MCH (test code = MCH) 30.1 pg 27.0-31.0 [facility] HeightsLrvgzljSYDXPQKLFL5046-54-51 11:00:00 Test Item Value Reference Range Interpretation Comments MCV (test code = MCV) 89.6 81.0-99.0 [facility] HeightsPlhmqioBFJMOXNLND2655-31-65 11:00:00 Test Item Value Reference Range Interpretation Comments Segs (test code = Segs) 58.8 45.0-75.0 [facility] HeightsYscelbaUNUJOJJXBG8349-21-26 11:00:00 Test Item Value Reference Range Interpretation Comments Monocytes # (test code 0.6 See_Comment [Aut omated message] The = Monocytes #) system which generated this result tra nsmitted reference range : <=0.8. The reference r celio was not used to int erpret this result as normal/abnormal . [facility] HeightsGlppcczVTKOBQNHXO0820-01-97 11:00:00 Test Item Value Reference Range Interpretation Comments Eosinophils # (test code 0.3 See_Comment [A utomated message] The = Eosinophils #) system whic h generated this result tra nsmitted reference range : <=0.5. The reference r celio was not used to int erpret this result as normal/abnormal . [facility] HeightsOxtcemtSQWMCLZXNB8557-58-11 11:00:00 Test Item Value Reference Range Interpretation Comments Basophils (test code = 0.6 See_Comment [Aut omated message] The Basophils) system which ge nerated this result tra nsmitted reference range : <=1.0. The reference r celio was not used to int erpret this result as normal/abnormal . [facility] HeightsPsdrrskZPNMQBIKBC3050-80-83 11:00:00 Test Item Value Reference Range Interpretation Comments Segs-Bands # (test code = Segs-Bands #) 4.9 1.5-8.1 [facility] HeightsWueqmauGCZDJBRFDZ9835-20-05 11:00:00 Test Item Value Reference Range Interpretation Comments Lymphocytes # (test code = Lymphocytes 2.4 1.0-5.5 #) [facility] HeightsZexngjhSPRYIWLAXK7703-34-37 11:00:00 Test Item Value Reference Range Interpretation Comments Eosinophils (test code = 4.1 See_Comment [A utomated message] The Eosinophils) system which ge nerated this result tra nsmitted reference range : <=4.0. The reference r celio was not used to int erpret this result as normal/abnormal . [facility] HeightsLrxvmhqWCWYFQOQBH2216-88-40 11:00:00 Test Item Value Reference Range Interpretation Comments Lymphocytes (test code = Lymphocytes) 29.4 20.0-40.0 [facility] HeightsEiiubquUQVEGIJCBX7165-77-12 11:00:00 Test Item Value Reference Range Interpretation Comments Monocytes (test code = Monocytes) 7.1 2.0-12.0 [facility]2014-04-09 11:00:00 Test Item Value Reference Range Interpretation Comments Bili Indirect (test 0.2 See_Comment [Automa blayne message] The code = Bili Indirect) system which generated this result tra nsmitted reference range : <=1.0. The reference r celio was not used to int erpret this result as normal/abnormal . [facility]2014-04-09 11:00:00 Test Item Value Reference Range Interpretation Comments Bili Total (test code = Bili Total) 0.3 0.2-1.3 [facility]2014-04-09 11:00:00 Test Item Value Reference Range Interpretation Comments Bili Direct (test code 0.1 See_Comment [Aut omated message] The = Bili Direct) system which generated this result tra nsmitted reference range : <=0.3. The reference r celio was not used to int erpret this result as dequan l/abnormal. [facility]2014-04-09 11:00:00 Test Item Value Reference Range Interpretation Comments A/G Ratio (test code = A/G Ratio) 1.0 0.7-1.6 [facility]2014-04-09 11:00:00 Test Item Value Reference Range Interpretation Comments AST (test code = AST) 38 See_Comment [Auto mated message] The system which ge nerated this result transmit blayne reference range : <=37. The reference range was not used to interpr et this result as dequan l/abnormal. [facility]2014-04-09 11:00:00 Test Item Value Reference Range Interpretation Comments Globulin (test code = Globulin) 3.3 2.0-4.0 [facility]2014-04-09 11:00:00 Test Item Value Reference Range Interpretation Comments Total Protein (test code = Total 6.7 6.4-8.4 Protein) [facility]2014-04-09 11:00:00 Test Item Value Reference Range Interpretation Comments ALT (test code = ALT) 104 See_Comment [Auto mated message] The system which ge nerated this result transmit blayne reference range : <=65. The reference range was not used to interpr et this result as dequan l/abnormal. [facility]Euro[facility] [id number] 11:00:00 Test Item Value Reference Range Interpretation Comments Alk Phos (test code = Alk Phos) 62 39-136 [facility] [id number] 11:00:00 Test Item Value Reference Range Interpretation Comments Albumin Lvl (test code = Albumin Lvl) 3.4 3.5-5.0 [facility]osnkxyWEEKVVFWXXIO6825-05-04 11:00:00 Test Item Value Reference Range Interpretation Comments AGAP (test code = AGAP) 15.3 10.0-20.0 [facility] HospitalAxbchyfTNXCOMURTZDD1864-09-75 11:00:00 Test Item Value Reference Range Interpretation Comments eGFR (test code = eGFR) 104 [facility] HospitalTvkmdyyELMDVKOZRENZ4632-05-78 11:00:00 Test Item Value Reference Range Interpretation Comments Chloride Lvl (test code = Chloride Lvl) 106 95-109 [facility] HospitalVgkjzclHONECYDUBMAZ3958-61-38 11:00:00 Test Item Value Reference Range Interpretation Comments CO2 (test code = CO2) 26 24-32 [facility] HospitalGspqaqgNYCCQQCSVRTW3954-61-29 11:00:00 Test Item Value Reference Range Interpretation Comments Potassium Lvl (test code = Potassium 4.3 3.5-5.1 Lvl) [facility] HospitalXxznpsoXOTIXKABAVQL5973-73-66 11:00:00 Test Item Value Reference Range Interpretation Comments Calcium Lvl (test code = Calcium Lvl) 8.9 8.5-10.5 [facility] HospitalJahmksxXPRXNBDIZFSZ3083-05-18 11:00:00 Test Item Value Reference Range Interpretation Comments Glucose Lvl (test code = Glucose Lvl) 97 70-99 [facility] HospitalDbvgtyrWBGBYHZOLALI2321-87-09 11:00:00 Test Item Value Reference Range Interpretation Comments BUN (test code = BUN) 14 7-22 [facility] HospitalYqmgjhiHWKJAIFMGELM4815-71-92 11:00:00 Test Item Value Reference Range Interpretation Comments Creatinine Lvl (test code = Creatinine 0.7 0.5-1.4 Lvl) [facility] HospitalKjyfzgyXTIFCPLRQQJU4503-60-46 11:00:00 Test Item Value Reference Range Interpretation Comments Sodium Lvl (test code = Sodium Lvl) 143 135-145 [facility] HeightsNkdmuwvMSDWVHEHXO6088-75-68 11:00:00 Test Item Value Reference Range Interpretation Comments MPV (test code = MPV) 8.5 7.4-10.4 [facility] HeightsDxriltxENWCRNYWID4497-51-85 11:00:00 Test Item Value Reference Range Interpretation Comments Platelet (test code = Platelet) 308 133-450 [facility]2014-04-06 09:19:00 Test Item Value Reference Range Interpretation Comments eGFR (test code = eGFR) 104 [facility]2014-04-06 09:19:00 Test Item Value Reference Range Interpretation Comments Potassium Lvl (test code = Potassium 4.2 3.5-5.1 Lvl) [facility]2014-04-06 09:19:00 Test Item Value Reference Range Interpretation Comments Chloride Lvl (test code = Chloride Lvl) 104 95-109 [facility]2014-04-06 09:19:00 Test Item Value Reference Range Interpretation Comments AST (test code = AST) 47 See_Comment [Auto mated message] The system which ge nerated this result transmit blayne reference range : <=37. The reference range was not used to interpr et this result as dequan l/abnormal. [facility]2014-04-06 09:19:00 Test Item Value Reference Range Interpretation Comments Total Protein (test code = Total 7.0 6.4-8.4 Protein) [facility]2014-04-06 09:19:00 Test Item Value Reference Range Interpretation Comments Calcium Lvl (test code = Calcium Lvl) 9.6 8.5-10.5 [facility]2014-04-06 09:19:00 Test Item Value Reference Range Interpretation Comments Bili Total (test code = Bili Total) 0.3 0.2-1.3 [facility]2014-04-06 09:19:00 Test Item Value Reference Range Interpretation Comments CO2 (test code = CO2) 27 24-32 [facility]2014-04-06 09:19:00 Test Item Value Reference Range Interpretation Comments Alk Phos (test code = Alk Phos) 64 39-136 [facility]2014-04-06 09:19:00 Test Item Value Reference Range Interpretation Comments Glucose Lvl (test code = Glucose Lvl) 102 70-99 [facility]2014-04-06 09:19:00 Test Item Value Reference Range Interpretation Comments Albumin Lvl (test code = Albumin Lvl) 3.8 3.5-5.0 [facility]2014-04-06 09:19:00 Test Item Value Reference Range Interpretation Comments ALT (test code = ALT) 107 See_Comment [Auto mated message] The system which ge nerated this result transmit blayne reference range : <=65. The reference range was not used to interpr et this result as dequan l/abnormal. [facility] [id number] 09:19:00 Test Item Value Reference Range Interpretation Comments Creatinine Lvl (test code = Creatinine 0.7 0.5-1.4 Lvl) [facility]2014-04-06 09:19:00 Test Item Value Reference Range Interpretation Comments BUN (test code = BUN) 15 7-22 [facility]2014-04-06 09:19:00 Test Item Value Reference Range Interpretation Comments Sodium Lvl (test code = Sodium Lvl) 141 135-145 [facility]2014-04-06 09:19:00 Test Item Value Reference Range Interpretation Comments B/C Ratio (test code = B/C Ratio) 21 6-25 [facility]2014-04-06 09:19:00 Test Item Value Reference Range Interpretation Comments Globulin (test code = Globulin) 3.2 2.0-4.0 [facility]2014-04-06 09:19:00 Test Item Value Reference Range Interpretation Comments AGAP (test code = AGAP) 14.2 10.0-20.0 [facility]2014-04-06 09:19:00 Test Item Value Reference Range Interpretation Comments A/G Ratio (test code = A/G Ratio) 1.2 0.7-1.6 [facility] HeightsRxhiplqXBVTJIULOZ8391-23-64 09:19:00 Test Item Value Reference Range Interpretation Comments Lymphocytes # (test code = Lymphocytes 3.5 1.0-5.5 #) [facility] HeightsFomqljpNVUOMHAMCT0355-98-35 09:19:00 Test Item Value Reference Range Interpretation Comments Monocytes # (test code 0.7 See_Comment [Aut omated message] The = Monocytes #) system which generated this result tra nsmitted reference range : <=0.8. The reference r celio was not used to int erpret this result as normal/abnormal . [facility] HeightsAhhhibgDEFKPDFFWU7339-68-16 09:19:00 Test Item Value Reference Range Interpretation Comments Segs-Bands # (test code = Segs-Bands #) 3.9 1.5-8.1 [facility] HeightsDipzweqVANQTZEXBH5481-09-76 09:19:00 Test Item Value Reference Range Interpretation Comments Basophils (test code = 0.6 See_Comment [Aut omated message] The Basophils) system which ge nerated this result tra nsmitted reference range : <=1.0. The reference r celio was not used to int erpret this result as normal/abnormal . [facility] HeightsNtwrztkJVLGXNIAZT7155-83-04 09:19:00 Test Item Value Reference Range Interpretation Comments Segs (test code = Segs) 47.2 45.0-75.0 [facility] HeightsEbcuwgeZQGFVITXOP5590-54-05 09:19:00 Test Item Value Reference Range Interpretation Comments Lymphocytes (test code = Lymphocytes) 41.8 20.0-40.0 [facility] HeightsSbktejjBYGYLYBXZW3086-04-00 09:19:00 Test Item Value Reference Range Interpretation Comments Eosinophils (test code = 2.5 See_Comment [A utomated message] The Eosinophils) system which ge nerated this result tra nsmitted reference range : <=4.0. The reference r celio was not used to int erpret this result as normal/abnormal . [facility] HeightsJonmyeeCBQXNHIKIF7568-33-24 09:19:00 Test Item Value Reference Range Interpretation Comments Monocytes (test code = Monocytes) 7.9 2.0-12.0 [facility] HeightsQkawoyiRLFLEJHPCN6230-85-08 09:19:00 Test Item Value Reference Range Interpretation Comments Eosinophils # (test code 0.2 See_Comment [A utomated message] The = Eosinophils #) system whic h generated this result tra nsmitted reference range : <=0.5. The reference r celio was not used to int erpret this result as normal/abnormal . [facility] HeightsMsafangFTDNHTFSIY2626-12-07 09:19:00 Test Item Value Reference Range Interpretation Comments Basophils # (test code 0.1 See_Comment [Aut omated message] The = Basophils #) system which generated this result tra nsmitted reference range : <=0.2. The reference r celio was not used to int erpret this result as normal/abnormal . [facility] HeightsNbvkbhlZVADYKWVLZ5633-56-71 09:19:00 Test Item Value Reference Range Interpretation Comments MCHC (test code = MCHC) 34.8 32.0-36.0 [facility] HeightsTkjmbkjRBZOLBKVME3173-12-62 09:19:00 Test Item Value Reference Range Interpretation Comments RDW (test code = RDW) 14.6 11.5-14.5 [facility] HeightsKrksnpaWTCUMJIPYJ2432-75-87 09:19:00 Test Item Value Reference Range Interpretation Comments Platelet (test code = Platelet) 296 133-450 [facility] HeightsHmczfgwXNFVQDEOOI4471-59-87 09:19:00 Test Item Value Reference Range Interpretation Comments MPV (test code = MPV) 8.4 7.4-10.4 [facility] HeightsTmgfadjCFLAQFPVTJ6089-88-36 09:19:00 Test Item Value Reference Range Interpretation Comments WBC (test code = WBC) 8.4 3.7-10.4 [facility] HeightsSqvuuxrVOIWDMYAXO8787-30-43 09:19:00 Test Item Value Reference Range Interpretation Comments Hct (test code = Hct) 40.0 36.0-48.0 [facility] HeightsTfrjojjEWHOHGPQYB5920-90-56 09:19:00 Test Item Value Reference Range Interpretation Comments Hgb (test code = Hgb) 13.9 12.0-16.0 [facility] HeightsBahjxajKQJGYQFKMV0144-13-19 09:19:00 Test Item Value Reference Range Interpretation Comments MCH (test code = MCH) 30.7 pg 27.0-31.0 [facility] HeightsNdteksaSJELOSFBDN0543-07-46 09:19:00 Test Item Value Reference Range Interpretation Comments MCV (test code = MCV) 88.3 81.0-99.0 [facility] HeightsGbdbehaKUJWVJMZLF5810-66-33 09:19:00 Test Item Value Reference Range Interpretation Comments RBC (test code = RBC) 4.53 4.20-5.40 [facility]PsjvqelVKGMDOVEYSFU7990-17-74 10:29:00 Test Item Value Reference Range Interpretation Comments AGAP (test code = AGAP) 15.0 10.0-20.0 [facility] HospitalIcicebtNWBJOUUGDZQN1065-29-88 10:29:00 Test Item Value Reference Range Interpretation Comments eGFR (test code = eGFR) 88 [facility] HospitalTfugnqtHOMUNUQBIFFH7216-51-62 10:29:00 Test Item Value Reference Range Interpretation Comments Calcium Lvl (test code = Calcium Lvl) 9.2 8.5-10.5 [facility] HospitalQmdmpkuTWOOTHLLPHJC3343-10-66 10:29:00 Test Item Value Reference Range Interpretation Comments Chloride Lvl (test code = Chloride Lvl) 103 95-109 [facility] HospitalHxyuireFHJUIFNSUBES9108-03-09 10:29:00 Test Item Value Reference Range Interpretation Comments CO2 (test code = CO2) 25 24-32 [facility] HospitalVkvpunuKJKGBBUPETBW5420-27-95 10:29:00 Test Item Value Reference Range Interpretation Comments Potassium Lvl (test code = Potassium 4.0 3.5-5.1 Lvl) [facility] HospitalPdanlxyHOTYFMUHDNQW4033-18-01 10:29:00 Test Item Value Reference Range Interpretation Comments Sodium Lvl (test code = Sodium Lvl) 139 135-145 [facility] HospitalVvqqcnfHNWFICKJYZBF4168-99-65 10:29:00 Test Item Value Reference Range Interpretation Comments Creatinine Lvl (test code = Creatinine 0.8 0.5-1.4 Lvl) [facility] HospitalPhpqcldUXYLYFJTMZTI6953-46-33 10:29:00 Test Item Value Reference Range Interpretation Comments BUN (test code = BUN) 19 7-22 [facility] HospitalRxxhebkWNEGDCAXIIGM2744-00-89 10:29:00 Test Item Value Reference Range Interpretation Comments Glucose Lvl (test code = Glucose Lvl) 87 70-99 [facility] HeightsDyketrqBXWWKKAGWT1430-68-19 10:29:00 Test Item Value Reference Range Interpretation Comments MPV (test code = MPV) 9.0 7.4-10.4 [facility] HeightsTuzpwgrGLXJMRWYZB4359-58-33 10:29:00 Test Item Value Reference Range Interpretation Comments Platelet (test code = Platelet) 299 133-450 [facility] HeightsFcbcqcmYHZHIQYJFZ6002-33-39 10:29:00 Test Item Value Reference Range Interpretation Comments MCHC (test code = MCHC) 34.4 32.0-36.0 [facility] HeightsRsqczgaPJJVJCLSEM7789-85-87 10:29:00 Test Item Value Reference Range Interpretation Comments RDW (test code = RDW) 14.6 11.5-14.5 [facility] HeightsGpjwtwhRQTUTRUMBX3392-75-20 10:29:00 Test Item Value Reference Range Interpretation Comments MCH (test code = MCH) 30.5 pg 27.0-31.0 [facility] HeightsWwjokthISMAEONVWA7979-89-17 10:29:00 Test Item Value Reference Range Interpretation Comments RBC (test code = RBC) 4.33 4.20-5.40 [facility] HeightsTdnrzzqXFGSHFZDIZ4621-18-88 10:29:00 Test Item Value Reference Range Interpretation Comments WBC (test code = WBC) 7.5 3.7-10.4 [facility] HeightsRhfeghbNSVXUCACFP0184-89-33 10:29:00 Test Item Value Reference Range Interpretation Comments MCV (test code = MCV) 88.7 81.0-99.0 [facility] HeightsQxsdgeuXJBBJHHVVE4168-93-27 10:29:00 Test Item Value Reference Range Interpretation Comments Hgb (test code = Hgb) 13.2 12.0-16.0 [facility] HeightsArzfxveQKNSHMVSTK2581-30-08 10:29:00 Test Item Value Reference Range Interpretation Comments Hct (test code = Hct) 38.4 36.0-48.0 [facility] HeightsQttjnwbRUQKNJDBDP0620-73-51 10:29:00 Test Item Value Reference Range Interpretation Comments Monocytes (test code = Monocytes) 6.0 2.0-12.0 [facility] HeightsTfqumhgDISPOUTMHN6256-35-26 10:29:00 Test Item Value Reference Range Interpretation Comments Eosinophils (test code = 2.2 See_Comment [A utomated message] The Eosinophils) system which ge nerated this result tra nsmitted reference range : <=4.0. The reference r celio was not used to int erpret this result as normal/abnormal . [facility] HeightsCcfhqqqKVKNVGHQNT0698-58-07 10:29:00 Test Item Value Reference Range Interpretation Comments Eosinophils # (test code 0.2 See_Comment [A utomated message] The = Eosinophils #) system whic h generated this result tra nsmitted reference range : <=0.5. The reference r celio was not used to int erpret this result as normal/abnormal . [facility] HeightsFritygxQTWCRFOQGN1328-56-05 10:29:00 Test Item Value Reference Range Interpretation Comments Lymphocytes (test code = Lymphocytes) 45.2 20.0-40.0 [facility] HeightsIdzukaqPNZAWWWWXY6323-61-80 10:29:00 Test Item Value Reference Range Interpretation Comments Monocytes # (test code 0.4 See_Comment [Aut omated message] The = Monocytes #) system which generated this result tra nsmitted reference range : <=0.8. The reference r celio was not used to int erpret this result as normal/abnormal . [facility] HeightsUrlmeniCJATHLYGYH1451-53-33 10:29:00 Test Item Value Reference Range Interpretation Comments Lymphocytes # (test code = Lymphocytes 3.4 1.0-5.5 #) [facility] HeightsPxgtkugYWWKASTCKO9850-31-06 10:29:00 Test Item Value Reference Range Interpretation Comments Basophils (test code = 0.5 See_Comment [Aut omated message] The Basophils) system which ge nerated this result tra nsmitted reference range : <=1.0. The reference r celio was not used to int erpret this result as normal/abnormal . [facility] HeightsQpxearuXIWRRDFOUI9699-21-51 10:29:00 Test Item Value Reference Range Interpretation Comments Segs-Bands # (test code = Segs-Bands #) 3.4 1.5-8.1 [facility] HeightsQhzmpmsTXGYMHODIG4212-50-44 10:29:00 Test Item Value Reference Range Interpretation Comments Segs (test code = Segs) 46.1 45.0-75.0 [facility]2014-03-26 10:30:04 Test Item Value Reference Range Interpretation Comments Globulin (test code = Globulin) 3.3 2.0-4.0 [facility]2014-03-26 10:30:04 Test Item Value Reference Range Interpretation Comments A/G Ratio (test code = A/G Ratio) 1.1 0.7-1.6 [facility]2014-03-26 10:30:04 Test Item Value Reference Range Interpretation Comments ASPARTATE TRANSAMINASE 69 See_Comment [Aut omated message] (test code = ASPARTATE The s ystem which TRANSAMINASE) generated this result transmitted ref erence range: <=37. Th e reference range was not used to interpr et this result as normal/abnormal . [facility]2014-03-26 10:30:04 Test Item Value Reference Range Interpretation Comments Bili Indirect (test 0.2 See_Comment [Automa blayne message] The code = Bili Indirect) system which generated this result tra nsmitted reference range : <=1.0. The reference r celio was not used to int erpret this result as normal/abnormal . [facility]2014-03-26 10:30:04 Test Item Value Reference Range Interpretation Comments Bili Total (test code = Bili Total) 0.3 0.2-1.3 [facility]2014-03-26 10:30:04 Test Item Value Reference Range Interpretation Comments Total Protein (test code = Total 6.8 6.4-8.4 Protein) [facility]2014-03-26 10:30:04 Test Item Value Reference Range Interpretation Comments Alk Phos (test code = Alk Phos) 66 39-136 [facility]2014-03-26 10:30:04 Test Item Value Reference Range Interpretation Comments Bili Direct (test code 0.1 See_Comment [Aut omated message] The = Bili Direct) system which generated this result tra nsmitted reference range : <=0.3. The reference r celio was not used to int erpret this result as dequan l/abnormal. [facility] [employer] [id number] 10:30:04 Test Item Value Reference Range Interpretation Comments ALANINE AMINOTRANSFERASE 125 See_Comment [A utomated message] (test code = ALANINE The sys tem which AMINOTRANSFERASE) generated this result transmitted ref erence range: <=65. Th e reference range was not used to int erpret this result as normal/abnormal . [facility] [id number] 10:30:04 Test Item Value Reference Range Interpretation Comments Albumin Lvl (test code = Albumin Lvl) 3.5 3.5-5.0 [facility]2014-03-24 10:03:00 Test Item Value Reference Range Interpretation Comments Magnesium Lvl (test code = Magnesium 1.5 1.8-2.4 Lvl) [facility]2014-03-24 10:03:00 Test Item Value Reference Range Interpretation Comments Phosphorus (test code = Phosphorus) 4.4 2.5-4.5 [facility] ClinicDpgdnpoCXSWFF2197-66-14 10:03:00 Test Item Value Reference Range Interpretation Comments VLDL (test code = VLDL) 38 [facility]PvswstuGHJREG7193-71-30 10:03:00 Test Item Value Reference Range Interpretation Comments LDL (Calculated) (test code = LDL 121 (Calculated)) [facility] TexasDyebbmmHJYGTY5243-25-72 10:03:00 Test Item Value Reference Range Interpretation Comments Chol (test code = Chol) 208 [facility] TexasHyfdehjIAPDXC3885-98-26 10:03:00 Test Item Value Reference Range Interpretation Comments Trig (test code = Trig) 191 [facility] TexasIbhvgwjHAXGXN2515-69-65 10:03:00 Test Item Value Reference Range Interpretation Comments HDL (test code = HDL) 49 [facility] TexasFtiihudMJAGSV5063-56-16 10:03:00 Test Item Value Reference Range Interpretation Comments CHD Risk (test code = CHD Risk) 4.24 3.90-5.80 [facility]2014-03-21 11:00:00 Test Item Value Reference Range Interpretation Comments Bili Indirect (test 0.2 See_Comment [Automa blayne message] The code = Bili Indirect) system which generated this result tra nsmitted reference range : <=1.0. The reference r celio was not used to int erpret this result as normal/abnormal . [facility]2014-03-21 11:00:00 Test Item Value Reference Range Interpretation Comments Bili Direct (test code 0.1 See_Comment [Aut omated message] The = Bili Direct) system which generated this result tra nsmitted reference range : <=0.3. The reference r celio was not used to int erpret this result as dequan l/abnormal. [facility]2014-03-17 06:57:53 Test Item Value Reference Range Interpretation Comments B/C Ratio (test code = B/C Ratio) 12 6-25 [facility]2014-03-14 11:45:00 Test Item Value Reference Range Interpretation Comments Vitamin B12 Lvl (test code = Vitamin [phone] B12 Lvl) [facility]2014-03-14 11:45:00 Test Item Value Reference Range Interpretation Comments Folate Lvl (test code = Folate Lvl) 17.6 [facility]2014-03-14 11:45:00 Test Item Value Reference Range Interpretation Comments Magnesium Lvl (test code = Magnesium 2.0 1.8-2.4 Lvl) [facility]2014-03-14 11:45:00 Test Item Value Reference Range Interpretation Comments VITAMIN B1 (THIAMINE) WHOLE BLOOD (test 71 78-185 code = VITAMIN B1 (THIAMINE) WHOLE BLOOD) [facility]2014 10:05:00 Test Item Value Reference Range Interpretation Comments Amylase Lvl (test code = Amylase Lvl) 46 25-115 [facility]2014 10:05:00 Test Item Value Reference Range Interpretation Comments Lipase Lvl (test code = Lipase Lvl) 152 73-393 [facility] HeightsCvfzabqRLIAXAUVEJ2851-91-71 19:46:00 Test Item Value Reference Range Interpretation Comments aPTT (test code = aPTT) 30.8 s 22.9-35.8 [facility] ClinicCARDIAC [id number] 10:25:00 Test Item Value Reference Range Interpretation Comments Total CK (test code = Total CK) 58 12-191 [facility]2014-03-10 10:25:00 Test Item Value Reference Range Interpretation Comments Calcium Lvl (test code = Calcium Lvl) 9.4 8.5-10.5 [facility]2014-03-10 10:25:00 Test Item Value Reference Range Interpretation Comments Magnesium Lvl (test code = Magnesium 1.9 1.8-2.4 Lvl) [facility]2014-03-10 10:25:00 Test Item Value Reference Range Interpretation Comments Phosphorus (test code = Phosphorus) 5.0 2.5-4.5 [facility]2014-03-10 10:25:00 Test Item Value Reference Range Interpretation Comments A/G Ratio (test code = A/G Ratio) 1.3 0.7-1.6 [facility]2014-03-10 10:25:00 Test Item Value Reference Range Interpretation Comments Globulin (test code = Globulin) 2.9 2.0-4.0 [facility]2014-03-10 10:25:00 Test Item Value Reference Range Interpretation Comments Bili Indirect (test 0.3 See_Comment [Automa blayne message] The code = Bili Indirect) system which generated this result tra nsmitted reference range : <=1.0. The reference r celio was not used to int erpret this result as normal/abnormal . [facility]2014-03-10 10:25:00 Test Item Value Reference Range Interpretation Comments Alk Phos (test code = Alk Phos) 97 39-136 [facility]2014-03-10 10:25:00 Test Item Value Reference Range Interpretation Comments Total Protein (test code = Total 6.6 6.4-8.4 Protein) [facility]2014-03-10 10:25:00 Test Item Value Reference Range Interpretation Comments Bili Direct (test code 0.1 See_Comment [Aut omated message] The = Bili Direct) system which generated this result tra nsmitted reference range : <=0.3. The reference r celio was not used to int erpret this result as dequan l/abnormal. [facility]2014-03-10 10:25:00 Test Item Value Reference Range Interpretation Comments ALANINE AMINOTRANSFERASE 116 See_Comment [A utomated message] (test code = ALANINE The sys tem which AMINOTRANSFERASE) generated this result transmitted ref erence range: <=65. Th e reference range was not used to int erpret this result as normal/abnormal . [facility]2014-03-10 10:25:00 Test Item Value Reference Range Interpretation Comments Albumin Lvl (test code = Albumin Lvl) 3.7 3.5-5.0 [facility]2014-03-10 10:25:00 Test Item Value Reference Range Interpretation Comments Bili Total (test code = Bili Total) 0.4 0.2-1.3 [facility]2014-03-10 10:25:00 Test Item Value Reference Range Interpretation Comments ASPARTATE TRANSAMINASE 63 See_Comment [Aut omated message] (test code = ASPARTATE The s ystem which TRANSAMINASE) generated this result transmitted ref erence range: <=37. Th e reference range was not used to interpr et this result as normal/abnormal . [facility]reyjILALVLCXKMKG0572-01-93 10:25:00 Test Item Value Reference Range Interpretation Comments AGAP (test code = AGAP) 14.1 10.0-20.0 [facility] HospitalRegpnviXPIKNTAQDVIV8285-78-47 10:25:00 Test Item Value Reference Range Interpretation Comments eGFR (test code = eGFR) 104 [facility] HospitalBrygromUDVNMSCTKMQZ6750-31-12 10:25:00 Test Item Value Reference Range Interpretation Comments Creatinine Lvl (test code = Creatinine 0.7 0.5-1.4 Lvl) [facility] HospitalGqxoeugCOVNGUMJINGM2661-21-07 10:25:00 Test Item Value Reference Range Interpretation Comments BUN (test code = BUN) 13 7-22 [facility] HospitalBdevvyeATOHRLMJWHVH2389-93-44 10:25:00 Test Item Value Reference Range Interpretation Comments Glucose Lvl (test code = Glucose Lvl) 101 70-99 [facility] HospitalCzvqnemSIQAPUINSEBK2272-35-61 10:25:00 Test Item Value Reference Range Interpretation Comments Sodium Lvl (test code = Sodium Lvl) 141 135-145 [facility] HospitalHowiyibFNLYPOULJXJG1367-52-08 10:25:00 Test Item Value Reference Range Interpretation Comments Calcium Lvl (test code = Calcium Lvl) 9.4 8.5-10.5 [facility] HospitalRguvtsfZMLESDCDRZTC0693-14-13 10:25:00 Test Item Value Reference Range Interpretation Comments Chloride Lvl (test code = Chloride Lvl) 105 95-109 [facility] HospitalGhfftvgJANBXMSQIAOZ9286-91-17 10:25:00 Test Item Value Reference Range Interpretation Comments CO2 (test code = CO2) 26 24-32 [facility] HospitalPiiuvjaLGTZRXZSLWQO8595-48-95 10:25:00 Test Item Value Reference Range Interpretation Comments Potassium Lvl (test code = Potassium 4.1 3.5-5.1 Lvl) [facility] HeightsSqbkagiVWPSZGCNNA0735-91-11 10:25:00 Test Item Value Reference Range Interpretation Comments MCV (test code = MCV) 89.0 81.0-99.0 [facility] HeightsSttqvfqFZNZYQZQAF2073-64-29 10:25:00 Test Item Value Reference Range Interpretation Comments Hct (test code = Hct) 43.6 36.0-48.0 [facility] HeightsNwvsvgoFOPPMDOUPC4420-53-06 10:25:00 Test Item Value Reference Range Interpretation Comments MPV (test code = MPV) 8.5 7.4-10.4 [facility] HeightsWvaoyclTBYPSHCLVZ2303-22-04 10:25:00 Test Item Value Reference Range Interpretation Comments Platelet (test code = Platelet) 291 133-450 [facility] HeightsScdepyvYTVEZPZZJH9002-55-94 10:25:00 Test Item Value Reference Range Interpretation Comments RDW (test code = RDW) 13.8 11.5-14.5 [facility] HeightsQbpzclaWFQDCWNNZR6073-59-90 10:25:00 Test Item Value Reference Range Interpretation Comments MCHC (test code = MCHC) 34.7 32.0-36.0 [facility] HeightsMiqtwsuRHGYJLMMAL7153-41-43 10:25:00 Test Item Value Reference Range Interpretation Comments MCH (test code = MCH) 30.9 pg 27.0-31.0 [facility] HeightsBttnfboYHXLIWZZWI5197-58-21 10:25:00 Test Item Value Reference Range Interpretation Comments RBC X 10x6 (test code = RBC X 10x6) 4.90 4.20-5.40 [facility] HeightsRliyeteINOMOEDATD2596-01-40 10:25:00 Test Item Value Reference Range Interpretation Comments WBC X 10x3 (test code = WBC X 10x3) 7.6 3.7-10.4 [facility] HeightsCabehsrJCASDKKWRM3164-12-41 10:25:00 Test Item Value Reference Range Interpretation Comments Hgb (test code = Hgb) 15.1 12.0-16.0 [facility] HeightsCkvbzylIGMDINKLHG4486-92-67 10:25:00 Test Item Value Reference Range Interpretation Comments Eosinophils # (test code 0.3 See_Comment [A utomated message] The = Eosinophils #) system whic h generated this result tra nsmitted reference range : <=0.5. The reference r celio was not used to int erpret this result as normal/abnormal . [facility] HeightsEiuyogaWEDEWUFYME3240-69-23 10:25:00 Test Item Value Reference Range Interpretation Comments Lymphocytes # (test code = Lymphocytes 3.3 1.0-5.5 #) [facility] HeightsHsukeogMOZOSPSBCX2672-26-85 10:25:00 Test Item Value Reference Range Interpretation Comments Monocytes # (test code 0.6 See_Comment [Aut omated message] The = Monocytes #) system which generated this result tra nsmitted reference range : <=0.8. The reference r celio was not used to int erpret this result as normal/abnormal . [facility] HeightsIqkesywSRVLFDRDWL2792-81-52 10:25:00 Test Item Value Reference Range Interpretation Comments Segs-Bands # (test code = Segs-Bands #) 3.4 1.5-8.1 [facility] HeightsTmnchijKEMLFRXQPM4862-87-51 10:25:00 Test Item Value Reference Range Interpretation Comments Basophils (test code = 0.5 See_Comment [Aut omated message] The Basophils) system which ge nerated this result tra nsmitted reference range : <=1.0. The reference r celio was not used to int erpret this result as normal/abnormal . [facility] HeightsOtsfpyhGAGBRHLSAR3775-11-35 10:25:00 Test Item Value Reference Range Interpretation Comments Segs (test code = Segs) 45.3 45.0-75.0 [facility] HeightsZrsgwpvHZUUNFRPTI9072-17-76 10:25:00 Test Item Value Reference Range Interpretation Comments Monocytes (test code = Monocytes) 7.9 2.0-12.0 [facility] HeightsZmocgwjCELYZMIRUI8827-20-47 10:25:00 Test Item Value Reference Range Interpretation Comments Eosinophils (test code = 3.4 See_Comment [A utomated message] The Eosinophils) system which ge nerated this result tra nsmitted reference range : <=4.0. The reference r celio was not used to int erpret this result as normal/abnormal . [facility] ClinicQrnjtfpSYBSHOLSQC6277-78-60 10:25:00 Test Item Value Reference Range Interpretation Comments Lymphocytes (test code = Lymphocytes) 42.9 20.0-40.0 [facility] AND [id number] 13:26:07 Test Item Value Reference Range Interpretation Comments UA Urobilinogen (test code = UA <=1.0 mg/dL 0.1-1.0 Urobilinogen) [facility] AND [id number] 13:26:07 Test Item Value Reference Range Interpretation Comments UA WBC (test code = no gt See_Comment [Automa blayne message] The UA WBC) system which ge nerated this result transmit blayne reference range : <=5. The reference range was not used to interpr et this result as dequan l/abnormal. [facility] AND [id number] 13:26:07 Test Item Value Reference Range Interpretation Comments UA RBC (test code = 2 See_Comment [Automa blayne message] The UA RBC) system which ge nerated this result transmit blayne reference range : <=2. The reference range was not used to interpr et this result as dequan l/abnormal. [facility] AND [id number] 13:26:07 Test Item Value Reference Range Interpretation Comments UA Sq Epi (test code = UA Sq Epi) Many /LPF [facility] AND [id number] 13:26:07 Test Item Value Reference Range Interpretation Comments UA Mucus (test code = UA Mucus) Many /LPF [facility] [id number] 13:26:07 Test Item Value Reference Range Interpretation Comments UA Bacteria (test code = UA Few /HPF Bacteria) [facility] AND [id number] 13:26:07 Test Item Value Reference Range Interpretation Comments UA Amorph Valeria (test code = UA Moderate /HPF Amorph Valeria) [facility] AND [id number] 13:26:07 Test Item Value Reference Range Interpretation Comments UA Leuk Est (test code Large *ABN*(11/29/2013 = UA Leuk Est) 08:26:07 [facility]) [facility] AND [id number] 13:26:07 Test Item Value Reference Range Interpretation Comments UA Blood (test code = Trace *ABN*(11/29/2013 UA Blood) 08:26:07 [place]) [facility] AND [id number] 13:26:07 Test Item Value Reference Range Interpretation Comments UA Nitrite (test code Negative (11/29/2013 = UA Nitrite) 08:26:07 [place]) [facility] AND [id number] 13:26:07 Test Item Value Reference Range Interpretation Comments UA Protein (test code = UA Protein) 30 mg/dL [facility] AND [id number] 13:26:07 Test Item Value Reference Range Interpretation Comments UA pH (test code = UA pH) 6.5 5.0-8.0 [facility] AND [id number] 13:26:07 Test Item Value Reference Range Interpretation Comments UA Glucose (test code = UA Negative mg/dL Glucose) [facility] AND [id number] 13:26:07 Test Item Value Reference Range Interpretation Comments UA Bili (test code = Negative *NA*(11/29/2013 UA Bili) 08:26:07 [place]) [facility] AND [id number] 13:26:07 Test Item Value Reference Range Interpretation Comments UA Ketones (test code = UA Negative mg/dL Ketones) [facility] AND [id number] 13:26:07 Test Item Value Reference Range Interpretation Comments UA Color (test code = Yellow *NA*(11/29/2013 UA Color) 08:26:07 [place]) [facility] AND [id number] 13:26:07 Test Item Value Reference Range Interpretation Comments UA Turbidity (test code Marked = UA Turbidity) *ABN*(11/29/2013 08:26:07 [place]) [facility] AND [id number] 13:26:07 Test Item Value Reference Range Interpretation Comments UA Spec Grav (test code = UA Spec Grav) 1.014 [facility] ClinicEuroMillions.[facility] [id number] 11:31:57 Test Item Value Reference Range Interpretation Comments eGFR (test code = eGFR) 104 [facility] [id number] 11:31:57 Test Item Value Reference Range Interpretation Comments Calcium Lvl (test code = Calcium Lvl) 9.4 8.5-10.5 [facility]2014-03-09 11:31:57 Test Item Value Reference Range Interpretation Comments Chloride Lvl (test code = Chloride Lvl) 108 95-109 [facility]2014-03-09 11:31:57 Test Item Value Reference Range Interpretation Comments CO2 (test code = CO2) 23 24-32 [facility]2014-03-09 11:31:57 Test Item Value Reference Range Interpretation Comments AGAP (test code = AGAP) 17.2 10.0-20.0 [facility]2014-03-09 11:31:57 Test Item Value Reference Range Interpretation Comments Sodium Lvl (test code = Sodium Lvl) 144 135-145 [facility]2014-03-09 11:31:57 Test Item Value Reference Range Interpretation Comments Potassium Lvl (test code = Potassium 4.2 3.5-5.1 Lvl) [facility]2014-03-09 11:31:57 Test Item Value Reference Range Interpretation Comments Glucose Lvl (test code = Glucose Lvl) 139 70-99 [facility]2014-03-09 11:31:57 Test Item Value Reference Range Interpretation Comments BUN (test code = BUN) 10 7-22 [facility]2014-03-09 11:31:57 Test Item Value Reference Range Interpretation Comments Creatinine Lvl (test code = Creatinine 0.7 0.5-1.4 Lvl) [facility]2014-03-09 11:31:57 Test Item Value Reference Range Interpretation Comments Magnesium Lvl (test code = Magnesium 1.9 1.8-2.4 Lvl) [facility]2014-03-08 09:24:00 Test Item Value Reference Range Interpretation Comments Phosphorus (test code = Phosphorus) 4.1 2.5-4.5 [facility]2014-03-08 09:24:00 Test Item Value Reference Range Interpretation Comments Magnesium Lvl (test code = Magnesium 1.9 1.8-2.4 Lvl) [facility]DehvkwgEFMWVEJOZFOK1053-30-84 09:24:00 Test Item Value Reference Range Interpretation Comments AGAP (test code = AGAP) 14.7 10.0-20.0 [facility]EtuknvxMISCGMOBMQSJ7660-37-54 09:24:00 Test Item Value Reference Range Interpretation Comments eGFR (test code = eGFR) 104 [facility] HospitalEjjhjliZUJXTIQCLXAT1504-24-84 09:24:00 Test Item Value Reference Range Interpretation Comments Chloride Lvl (test code = Chloride Lvl) 106 95-109 [facility] HospitalHwlpsnaPOEPFSJFQESG7241-85-17 09:24:00 Test Item Value Reference Range Interpretation Comments CO2 (test code = CO2) 25 24-32 [facility] HospitalNmmhqniXJCZBYWQEPHT9066-47-84 09:24:00 Test Item Value Reference Range Interpretation Comments Potassium Lvl (test code = Potassium 3.7 3.5-5.1 Lvl) [facility] HospitalMmjhhdyCKCQJNIEDAYW5070-13-93 09:24:00 Test Item Value Reference Range Interpretation Comments Sodium Lvl (test code = Sodium Lvl) 142 135-145 [facility] HospitalYmijnzjRWWCHNXYCJHO1163-79-06 09:24:00 Test Item Value Reference Range Interpretation Comments Glucose Lvl (test code = Glucose Lvl) 142 70-99 [facility] HospitalYhsxqbmKPRKOWKSSDDQ0207-30-06 09:24:00 Test Item Value Reference Range Interpretation Comments Creatinine Lvl (test code = Creatinine 0.7 0.5-1.4 Lvl) [facility] HospitalVyouvhaVWYPAMFMTCKG4862-60-48 09:24:00 Test Item Value Reference Range Interpretation Comments BUN (test code = BUN) 9 7-22 [facility] HeightsLetphutNJJQCHDCOU6054-11-11 09:24:00 Test Item Value Reference Range Interpretation Comments Lymphocytes # (test code = Lymphocytes 3.0 1.0-5.5 #) [facility] HeightsPpsiurtCJYQZSQNXA8416-49-51 09:24:00 Test Item Value Reference Range Interpretation Comments Eosinophils (test code = 2.7 See_Comment [A utomated message] The Eosinophils) system which ge nerated this result tra nsmitted reference range : <=4.0. The reference r celio was not used to int erpret this result as normal/abnormal . [facility] HeightsSmrgpghYLYCRJFGQM7107-70-12 09:24:00 Test Item Value Reference Range Interpretation Comments Basophils (test code = 0.5 See_Comment [Aut omated message] The Basophils) system which ge nerated this result tra nsmitted reference range : <=1.0. The reference r celio was not used to int erpret this result as normal/abnormal . [facility] HeightsCwfbqngOWOZYNPZWJ8512-97-65 09:24:00 Test Item Value Reference Range Interpretation Comments Eosinophils # (test code 0.2 See_Comment [A utomated message] The = Eosinophils #) system whic h generated this result tra nsmitted reference range : <=0.5. The reference r celio was not used to int erpret this result as normal/abnormal . [facility] HeightsHmicnejSKCORKULLR2287-40-55 09:24:00 Test Item Value Reference Range Interpretation Comments Monocytes # (test code 0.6 See_Comment [Aut omated message] The = Monocytes #) system which generated this result tra nsmitted reference range : <=0.8. The reference r celio was not used to int erpret this result as normal/abnormal . [facility] HeightsHhzeoioFGQUHGRDIW4967-05-81 09:24:00 Test Item Value Reference Range Interpretation Comments Segs-Bands # (test code = Segs-Bands #) 4.1 1.5-8.1 [facility] HeightsEyxwmfmNZRNAFVITS7155-51-32 09:24:00 Test Item Value Reference Range Interpretation Comments Lymphocytes (test code = Lymphocytes) 37.9 20.0-40.0 [facility] HeightsUqncupzEUNNACEWGQ2437-22-14 09:24:00 Test Item Value Reference Range Interpretation Comments Monocytes (test code = Monocytes) 6.9 2.0-12.0 [facility] HeightsNfpjgszKCIJEZSSEQ3011-20-83 09:24:00 Test Item Value Reference Range Interpretation Comments Segs (test code = Segs) 52.0 45.0-75.0 [facility] HeightsHtqiconSSLHSMRHVZ4199-16-89 09:24:00 Test Item Value Reference Range Interpretation Comments MPV (test code = MPV) 8.5 7.4-10.4 [facility] HeightsGzmdcrvZILDYIWTOB0506-00-53 09:24:00 Test Item Value Reference Range Interpretation Comments Platelet (test code = Platelet) 275 133-450 [facility] HeightsDbzfvuwFZEJAGCAQL7940-78-26 09:24:00 Test Item Value Reference Range Interpretation Comments RBC X 10x6 (test code = RBC X 10x6) 4.93 4.20-5.40 [facility]KfdnumnFALUJXQUFO7357-77-57 09:24:00 Test Item Value Reference Range Interpretation Comments WBC X 10x3 (test code = WBC X 10x3) 8.0 3.7-10.4 [facility] HeightsBqbpagrRNYLHUCHWI5410-09-50 09:24:00 Test Item Value Reference Range Interpretation Comments MCV (test code = MCV) 88.7 81.0-99.0 [facility] HeightsTwrfdlsAMZBRRVWBX1639-11-42 09:24:00 Test Item Value Reference Range Interpretation Comments Hgb (test code = Hgb) 15.0 12.0-16.0 [facility] HeightsNzkevezOQMESWTUDP8999-36-29 09:24:00 Test Item Value Reference Range Interpretation Comments Hct (test code = Hct) 43.7 36.0-48.0 [facility] HeightsTchympnMCBZAWRWZL7640-99-84 09:24:00 Test Item Value Reference Range Interpretation Comments MCH (test code = MCH) 30.4 pg 27.0-31.0 [facility] HeightsShtdvqxQJDVDAJNLF7072-67-90 09:24:00 Test Item Value Reference Range Interpretation Comments MCHC (test code = MCHC) 34.3 32.0-36.0 [facility] HeightsRogfgjbMHHBPLPRVH3953-13-10 09:24:00 Test Item Value Reference Range Interpretation Comments RDW (test code = RDW) 14.0 11.5-14.5 [facility]2014-03-07 07:23:00 Test Item Value Reference Range Interpretation Comments Globulin (test code = Globulin) 3.2 2.0-4.0 [facility]2014-03-07 07:23:00 Test Item Value Reference Range Interpretation Comments A/G Ratio (test code = A/G Ratio) 1.2 0.7-1.6 [facility]2014-03-07 07:23:00 Test Item Value Reference Range Interpretation Comments Alk Phos (test code = Alk Phos) 112 39-136 [facility]2014-03-07 07:23:00 Test Item Value Reference Range Interpretation Comments Albumin Lvl (test code = Albumin Lvl) 3.9 3.5-5.0 [facility]2014-03-07 07:23:00 Test Item Value Reference Range Interpretation Comments ALANINE AMINOTRANSFERASE 184 See_Comment [A utomated message] (test code = ALANINE The sys tem which AMINOTRANSFERASE) generated this result transmitted ref erence range: <=65. Th e reference range was not used to int erpret this result as normal/abnormal . [place] 262424-03-07 07:23:00 Test Item Value Reference Range Interpretation Comments Total Protein (test code = Total 7.1 6.4-8.4 Protein) [facility]2014-03-07 07:23:00 Test Item Value Reference Range Interpretation Comments ASPARTATE TRANSAMINASE 76 See_Comment [Aut omated message] (test code = ASPARTATE The s ystem which TRANSAMINASE) generated this result transmitted ref erence range: <=37. Th e reference range was not used to interpr et this result as normal/abnormal . [facility]2014-03-07 07:23:00 Test Item Value Reference Range Interpretation Comments Bili Total (test code = Bili Total) 0.3 0.2-1.3 [place] 262424-03-07 07:23:00 Test Item Value Reference Range Interpretation Comments Bili Indirect (test 0.2 See_Comment [Automa blayne message] The code = Bili Indirect) system which generated this result tra nsmitted reference range : <=1.0. The reference r celio was not used to int erpret this result as normal/abnormal . [facility]2014-03-07 07:23:00 Test Item Value Reference Range Interpretation Comments Bili Direct (test code 0.1 See_Comment [Aut omated message] The = Bili Direct) system which generated this result tra nsmitted reference range : <=0.3. The reference r celio was not used to int erpret this result as dequan l/abnormal. [facility]2014-03-07 07:23:00 Test Item Value Reference Range Interpretation Comments Phosphorus (test code = Phosphorus) 4.6 2.5-4.5 [facility] Heigh[id number] 07:23:00 Test Item Value Reference Range Interpretation Comments Eosinophils (test code = 1.7 See_Comment [A utomated message] The Eosinophils) system which ge nerated this result tra nsmitted reference range : <=4.0. The reference r celio was not used to int erpret this result as normal/abnormal . [facility] HeightsDcblnizFKSEQPOYPU5591-01-81 07:23:00 Test Item Value Reference Range Interpretation Comments Basophils (test code = 0.7 See_Comment [Aut omated message] The Basophils) system which ge nerated this result tra nsmitted reference range : <=1.0. The reference r celio was not used to int erpret this result as normal/abnormal . [facility] HeightsIflpbttKVUGHRCYWZ6712-26-34 07:23:00 Test Item Value Reference Range Interpretation Comments Lymphocytes # (test code = Lymphocytes 3.2 1.0-5.5 #) [facility] HeightsCxqguknIADXFVUFHH2026-44-41 07:23:00 Test Item Value Reference Range Interpretation Comments Monocytes # (test code 0.6 See_Comment [Aut omated message] The = Monocytes #) system which generated this result tra nsmitted reference range : <=0.8. The reference r celio was not used to int erpret this result as normal/abnormal . [facility] HeightsEtxosncJWSOABVLMP1118-16-19 07:23:00 Test Item Value Reference Range Interpretation Comments Eosinophils # (test code 0.1 See_Comment [A utomated message] The = Eosinophils #) [facility] generated this result tra nsmitted reference range : <=0.5. The reference r celio was not used to int erpret this result as normal/abnormal . [facility] HeightsXvbqropSIIZCNNPJL3226-07-20 07:23:00 Test Item Value Reference Range Interpretation Comments Basophils # (test code 0.1 See_Comment [Aut omated message] The = Basophils #) system which generated this result tra nsmitted reference range : <=0.2. The reference r celio was not used to int erpret this result as normal/abnormal . [facility] HeightsMnhwusgQVVWXAMWIB9280-96-37 07:23:00 Test Item Value Reference Range Interpretation Comments Segs-Bands # (test code = Segs-Bands #) 4.2 1.5-8.1 [facility] HeightsUwxwakhIEWLXZVHCO3535-75-51 07:23:00 Test Item Value Reference Range Interpretation Comments Lymphocytes (test code = Lymphocytes) 39.4 20.0-40.0 [facility] HeightsQhwngudZEGOCCZDNH2059-64-70 07:23:00 Test Item Value Reference Range Interpretation Comments Monocytes (test code = Monocytes) 6.9 2.0-12.0 [facility] HeightsDeyipivWGJRSCRKTW1961-57-02 07:23:00 Test Item Value Reference Range Interpretation Comments Segs (test code = Segs) 51.3 45.0-75.0 [facility] HeightsHbayjyxRWLVUFJIIO5460-30-30 07:23:00 Test Item Value Reference Range Interpretation Comments MCV (test code = MCV) 88.1 81.0-99.0 [facility] HeightsFzmrstoNNMGFLPYSA1863-24-87 07:23:00 Test Item Value Reference Range Interpretation Comments MCH (test code = MCH) 30.2 pg 27.0-31.0 [facility] HeightsNvmwimlWBROWSPFOF5762-42-45 07:23:00 Test Item Value Reference Range Interpretation Comments MCHC (test code = MCHC) 34.3 32.0-36.0 [facility] HeightsNxwszucCVMXTTYUDX0548-70-39 07:23:00 Test Item Value Reference Range Interpretation Comments RDW (test code = RDW) 13.7 11.5-14.5 [facility] HeightsAcrjbvtAJTQFJWZGI7299-61-80 07:23:00 Test Item Value Reference Range Interpretation Comments Platelet (test code = Platelet) 303 133-450 [facility] HeightsJfqssprEJZQGHUWJX6710-96-69 07:23:00 Test Item Value Reference Range Interpretation Comments MPV (test code = MPV) 8.6 7.4-10.4 [facility] HeightsYmyljscPYFONHAIVN9625-61-16 07:23:00 Test Item Value Reference Range Interpretation Comments WBC X 10x3 (test code = WBC X 10x3) 8.2 3.7-10.4 [facility] HeightsUujgvkjVXAYNERLXT2571-09-57 07:23:00 Test Item Value Reference Range Interpretation Comments RBC X 10x6 (test code = RBC X 10x6) 4.79 4.20-5.40 [facility] HeightsOmxjilyRBFYSSVZGW8266-70-35 07:23:00 Test Item Value Reference Range Interpretation Comments Hgb (test code = Hgb) 14.5 12.0-16.0 [facility] HeightsGdalgftXOTWMUQQRS7422-03-94 07:23:00 Test Item Value Reference Range Interpretation Comments Hct (test code = Hct) 42.2 36.0-48.0 [facility] HeightsRckadqfWKGHIKALCJ0315-54-12 07:23:00 Test Item Value Reference Range Interpretation Comments INR (test code = INR) 1.04 0.85-1.17 [facility] HeightsQaagsuwMJEVWLRHDZ4270-87-35 07:23:00 Test Item Value Reference Range Interpretation Comments aPTT (test code = aPTT) 30.3 s 22.9-35.8 [facility]SdsfnbrUNUWMUVCZX2860-11-38 07:23:00 Test Item Value Reference Range Interpretation Comments PROTIME (test code = PROTIME) 13.5 s 12.0-14.7 [facility]YzmtxekQLZFESDZOX5551-06-59 07:23:00 Test Item Value Reference Range Interpretation Comments Hep B Core IgM (test Negative *NA*(11/27/2013 code = Hep B Core 01:23:00 IgM) [facility]) [facility]JadqnvqQAVJLHDUUL8724-79-26 07:23:00 Test Item Value Reference Range Interpretation Comments Hep C Ab (test code = Negative *NA*(11/27/2013 Hep C Ab) 01:23:00 [facility]) [facility]MlnfstlHESIUFOUBF3547-48-32 07:23:00 Test Item Value Reference Range Interpretation Comments Hep A IgM (test code Negative *NA*(11/27/2013 = Hep A IgM) 01:23:00 [facility]) [facility] CampusAbvnpjsTLJRFAPAMU1438-98-52 07:23:00 Test Item Value Reference Range Interpretation Comments Hep Bs Ag (test code Negative *NA*(11/27/2013 = Hep Bs Ag) 01:23:00 [facility] CampusShivxvyPZRXAS5895-13-15 07:23:00 Test Item Value Reference Range Interpretation Comments VLDL (test code = VLDL) 27 [facility] CampusVedbzyySLDFZU5498-47-02 07:23:00 Test Item Value Reference Range Interpretation Comments LDL (Calculated) (test code = LDL 127 (Calculated)) [facility] CampusGnqpwauKLSSKO7883-56-00 07:23:00 Test Item Value Reference Range Interpretation Comments HDL (test code = HDL) 50 [facility] CampusLciqjpuFTOZKA5229-48-63 07:23:00 Test Item Value Reference Range Interpretation Comments Trig (test code = Trig) 134 [facility] CampusTxiaxbrBNEDNR6355-76-79 07:23:00 Test Item Value Reference Range Interpretation Comments Chol (test code = Chol) 204 [facility] CampusDltotibFDSWTN1591-12-70 07:23:00 Test Item Value Reference Range Interpretation Comments CHD Risk (test code = CHD Risk) 4.08 3.90-5.80 [facility] CampusannCHEM FXSCE6898-11-64 17:00:00 Test Item Value Reference Range Interpretation Comments ALANINE AMINOTRANSFERASE 204 See_Comment [A utomated message] (test code = ALANINE The sys tem which AMINOTRANSFERASE) generated this result transmitted ref erence range: <=65. Th e reference range was not used to int erpret this result as normal/abnormal . [facility]2014-03-06 17:00:00 Test Item Value Reference Range Interpretation Comments ASPARTATE TRANSAMINASE 70 See_Comment [Aut omated message] (test code = ASPARTATE The s ystem which TRANSAMINASE) generated this result transmitted ref erence range: <=37. Th e reference range was not used to interpr et this result as normal/abnormal . [facility]2014-03-06 17:00:00 Test Item Value Reference Range Interpretation Comments Alk Phos (test code = Alk Phos) 109 39-136 [facility]2014-03-06 17:00:00 Test Item Value Reference Range Interpretation Comments Albumin Lvl (test code = Albumin Lvl) 3.6 3.5-5.0 [facility]2014-03-06 17:00:00 Test Item Value Reference Range Interpretation Comments Bili Total (test code = Bili Total) 0.4 0.2-1.3 [facility]2014-03-06 17:00:00 Test Item Value Reference Range Interpretation Comments Bili Direct (test code 0.1 See_Comment [Aut omated message] The = Bili Direct) system which generated this result tra nsmitted reference range : <=0.3. The reference r celio was not used to int erpret this result as dequan l/abnormal. [facility]2014-03-06 17:00:00 Test Item Value Reference Range Interpretation Comments Total Protein (test code = Total 6.9 6.4-8.4 Protein) [facility]2014-03-06 17:00:00 Test Item Value Reference Range Interpretation Comments A/G Ratio (test code = A/G Ratio) 1.1 0.7-1.6 [facility]2014-03-06 17:00:00 Test Item Value Reference Range Interpretation Comments Bili Indirect (test 0.3 See_Comment [Automa blayne message] The code = Bili Indirect) system which generated this result tra nsmitted reference range : <=1.0. The reference r celio was not used to int erpret this result as normal/abnormal . [facility]2014-03-06 17:00:00 Test Item Value Reference Range Interpretation Comments Globulin (test code = Globulin) 3.3 2.0-4.0 [facility]2014-03-06 17:00:00 Test Item Value Reference Range Interpretation Comments ALANINE AMINOTRANSFERASE 204 See_Comment [A utomated message] (test code = ALANINE The sys tem which AMINOTRANSFERASE) generated this result transmitted ref erence range: <=65. Th e reference range was not used to int erpret this result as normal/abnormal . [facility]2014-03-06 17:00:00 Test Item Value Reference Range Interpretation Comments Albumin Lvl (test code = Albumin Lvl) 3.6 3.5-5.0 [facility]2014-03-06 17:00:00 Test Item Value Reference Range Interpretation Comments Alk Phos (test code = Alk Phos) 109 39-136 [facility]2014-03-06 17:00:00 Test Item Value Reference Range Interpretation Comments Bili Total (test code = Bili Total) 0.4 0.2-1.3 [facility]2014-03-06 17:00:00 Test Item Value Reference Range Interpretation Comments ASPARTATE TRANSAMINASE 70 See_Comment [Aut omated message] (test code = ASPARTATE The s ystem which TRANSAMINASE) generated this result transmitted ref erence range: <=37. Th e reference range was not used to interpr et this result as normal/abnormal . [facility]2014-03-06 17:00:00 Test Item Value Reference Range Interpretation Comments Total Protein (test code = Total 6.9 6.4-8.4 Protein) [facility]2014-03-06 17:00:00 Test Item Value Reference Range Interpretation Comments B/C Ratio (test code = B/C Ratio) 13 6-25 [facility]2014-03-06 17:00:00 Test Item Value Reference Range Interpretation Comments Globulin (test code = Globulin) 3.3 2.0-4.0 [place] 262424-03-06 17:00:00 Test Item Value Reference Range Interpretation Comments A/G Ratio (test code = A/G Ratio) 1.1 0.7-1.6 [facility] [id number] 17:00:00 Test Item Value Reference Range Interpretation Comments UDS Note (test code = See Note UDS Note) 7*NA*(11/26/2013 11:00:00 [place] [id number] 17:00:00 Test Item Value Reference Range Interpretation Comments U Opiate Scr (test Negative code = U Opiate Scr) *NA*(11/26/2013 11:00:00 [place] [id number] 17:00:00 Test Item Value Reference Range Interpretation Comments U Phencyc Scr (test Negative code = U Phencyc Scr) *NA*(11/26/2013 11:00:00 [place] [id number] 17:00:00 Test Item Value Reference Range Interpretation Comments U Cocaine Scr (test Negative code = U Cocaine Scr) *NA*(11/26/2013 11:00:00 [place] [id number] 17:00:00 Test Item Value Reference Range Interpretation Comments U Cannab Scr (test Negative code = U Cannab Scr) *NA*(11/26/2013 11:00:00 [place] [id number] 17:00:00 Test Item Value Reference Range Interpretation Comments U Benzodia Scr (test Negative code = U Benzodia Scr) *NA*(11/26/2013 11:00:00 [place] [id number] 17:00:00 Test Item Value Reference Range Interpretation Comments U Toshia Scr (test code Negative *NA*(11/26/2013 = U Toshia Scr) 11:00:00 [place] [id number] 17:00:00 Test Item Value Reference Range Interpretation Comments U Amph Scr (test code Negative *NA*(11/26/2013 = U Amph Scr) 11:00:00 [place] [id number] 17:00:00 Test Item Value Reference Range Interpretation Comments Hgb A1C (test code = Hgb A1C) 10.4 [facility] [id number] 17:00:00 Test Item Value Reference Range Interpretation Comments UA Urobilinogen (test code = UA <=1.0 mg/dL 0.1-1.0 Urobilinogen) [facility] AND [id number] 17:00:00 Test Item Value Reference Range Interpretation Comments UA RBC (test code = 6 See_Comment [Automa blayne message] The UA RBC) system which ge nerated this result transmit blayne reference range : <=2. The reference range was not used to interpr et this result as dequan l/abnormal. [facility] AND [id number] 17:00:00 Test Item Value Reference Range Interpretation Comments UA Bacteria (test code = UA Occasional /HPF Bacteria) [facility] AND [id number] 17:00:00 Test Item Value Reference Range Interpretation Comments UA Ketones (test code = UA Negative mg/dL Ketones) [facility] AND [id number] 17:00:00 Test Item Value Reference Range Interpretation Comments UA Turbidity (test code = Clear (11/26/2013 UA Turbidity) 11:00:00 [facility] AND [id number] 17:00:00 Test Item Value Reference Range Interpretation Comments UA Spec Grav (test code = UA Spec Grav) 1.017 [facility] AND [id number] 17:00:00 Test Item Value Reference Range Interpretation Comments UA pH (test code = UA pH) 7.5 5.0-8.0 [facility] AND [id number] 17:00:00 Test Item Value Reference Range Interpretation Comments UA Protein (test code = UA Negative mg/dL Protein) [facility] AND [id number] 17:00:00 Test Item Value Reference Range Interpretation Comments UA Glucose (test code = UA >=1000 mg/dL Glucose) [facility] AND [id number] 17:00:00 Test Item Value Reference Range Interpretation Comments UA Sq Epi (test code = UA Sq Occasional /LPF Epi) [facility] AND [id number] 17:00:00 Test Item Value Reference Range Interpretation Comments UA WBC (test code = 2 See_Comment [Automa blayne message] The UA WBC) system which ge nerated this result transmit blayne reference range : <=5. The reference range was not used to interpr et this result as deuqan l/abnormal. [facility] AND [id number] 17:00:00 Test Item Value Reference Range Interpretation Comments UA Bili (test code = Negative *NA*(11/26/2013 UA Bili) 11:00:00 [place] AND [id number] 17:00:00 Test Item Value Reference Range Interpretation Comments UA Blood (test code = Trace *ABN*(11/26/2013 UA Blood) 11:00:00 [place] AND [id number] 17:00:00 Test Item Value Reference Range Interpretation Comments UA Nitrite (test code Negative (11/26/2013 = UA Nitrite) 11:00:00 [facility] AND [id number] 17:00:00 Test Item Value Reference Range Interpretation Comments UA Leuk Est (test Negative (11/26/2013 code = UA Leuk Est) 11:00:00 [place] AND [id number] 17:00:00 Test Item Value Reference Range Interpretation Comments UA Color (test code = Light Yellow UA Color) *NA*(11/26/2013 11:00:00 [place]
--- NOTE | 2023-02-04 18:27 | RAD REPORT ---
EXAM DESCRIPTION: CT - Ct Stroke Brain Wo Cont - 02/04/2023 6:18 pm CLINICAL HISTORY: STROKE ALERT Headache, drowsiness, CVA COMPARISON: Head Brain Wo Cont dated 01/04/2017; CT-STROKE BRAIN W/O CONTRAST dated 03/21/2014 TECHNIQUE: All CT scans are performed using dose optimization technique as appropriate and may inclu de automated exposure control or mA/KV adjustment according to patient size. FINDINGS: No intracranial hemorrhage, hydrocephalus or extra-axial fluid collection.Small old left l acunar infarcts.No areas of brain edema or evidence of midline shift. The paranasal sinuses and mastoids are clear. The calvarium is intact. IMPRESSION: No acute intracranial abnormality. If there is continued clinical concern for CVA, MR imaging of the brain would be recommended. The findings were discussed with Dr López in the ER on 02/04/2023 at 6:21 p.m. by telephone.
[2023-02-04] MEDS ORDERED: TENECTEPLASE 50 MG/10 ML VIAL IV ONE (18:39)
[2023-02-04 18:49] LABS: Absolute Lymphocytes (CBC) 1.2 K/uL (0.7-4.9); Hematocrit 38.6 % (36.0-45.0); Lymphocytes % 15.6 % (15.3-44.8); MCV 92.4 fL (80-100); MPV 7.4 fL (7.6-11.3); RBC Red Blood Cell Count 4.18 M/uL (3.86-4.86)
[2023-02-04] MEDS ORDERED: DIPHENHYDRAMINE 50 MG/ML VIAL ONE (19:06)
[2023-02-04] MEDS ORDERED: METHYLPREDNISOLONE 125 MG INJ ONE (19:06)
--- NOTE | 2023-02-04 19:15 | RAD REPORT ---
EXAM DESCRIPTION: RAD - Chest Single View - 02/04/2023 7:09 pm CLINICAL HISTORY: ams Chest pain. FINDINGS: Portable technique limits examination quality. The lungs are grossly clear. The heart is normal in size. No displaced fractures. IMPRESSION: No acute intrathoracic process suspected.
--- NOTE | 2023-02-04 19:34 | EDPHYS ---
Physician Documentation [facility] Name: Amparo Franco Age: 57 yrs Sex: Female : 1965 Arrival Date: 02/04/2023 Time: 17:52 Bed 3 Private MD: ED Physician Lawrence Jon HPI: 02/04 20:00 This 57 yrs old Female presents to ER via Ambulatory with complaints of ms3 Headache, Numbness Of Hand, Allergic Reaction, Numbness Of Mouth. 20:00 57-year-old female with past medical history of diabetes, hyperlipidemia, hypertension, ms3 CVA affecting the right side presents for lip numbness and difficulty speaking. Patient's states patient developed a headache at 9 AM. At 5 PM patient began developing facial numbness. In triage patient then began having difficulty speaking. . Historical: - Allergies: 19:07 Advil; jl7 19:07 Cipro; jl7 19:07 IV contrast; jl7 19:07 Morphine; jl7 - PMHx: 19:07 CVA; Depression; Diabetes - NIDDM; Hyperlipidemia; Hypertension; jl7 - PSHx: 19:07 Cholecystectomy; jl7 - Immunization history:: Adult Immunizations unknown. - Social history:: Smoking status: unknown. ROS: 20:00 Constitutional: Negative for fever, and chills. Neck: Negative for injury, pain, and ms3 swelling, Cardiovascular: Negative for chest pain, and palpitations. Respiratory: Negative for shortness of breath, cough, wheezing, and pleuritic chest pain, Abdomen/GI: Negative for abdominal pain, nausea, vomiting, diarrhea, and constipation, MS/Extremity: Negative for injury and deformity, Skin: Negative for injury, rash, and discoloration. 20:00 Neuro: Positive for numbness, speech changes. Exam: 20:00 Constitutional: This is a well developed, well nourished patient who is awake, alert, ms3 and in no acute distress. Head/Face: Normocephalic, atraumatic. Eyes: Pupils equal round and reactive to light, extra-ocular motions intact. Lids and lashes normal. Conjunctiva and sclera are non-icteric and not injected. Periorbital areas with no swelling, redness, or edema. Neck: Trachea midline, no cervical lymphadenopathy. Supple, full range of motion without nuchal rigidity, or vertebral point tenderness. No Meningismus. Chest/axilla: Normal chest wall appearance and motion. Nontender with no deformity. Cardiovascular: Regular rate and rhythm with a normal S1 and S2. No gallops, murmurs, or rubs. Normal PMI, no JVD. No pulse deficits. Respiratory: Lungs have equal breath sounds bilaterally, clear to auscultation and percussion. No rales, rhonchi or wheezes noted. No increased work of breathing, no retractions or nasal flaring. Abdomen/GI: Soft, non-tender, with normal bowel sounds. No distension or tympany. No guarding or rebound. No evidence of tenderness throughout. Skin: Warm, dry with normal turgor. Normal color with no rashes, no lesions, and no evidence of cellulitis. 20:00 Neuro: Orientation: is normal, Mentation: is normal, able to follow commands, Sensation: is normal, no obvious gross deficits, Gait: not tested. 20:36 ECG was reviewed by the Attending Physician. ms3 Vital Signs: 17:58 BP 102 / 55; Pulse 109; Resp 16; Temp 100.1; Pulse Ox 98% on R/A; Weight 74.84 kg; nj1 Height 4 ft. 10 in. ; Pain 10/10; 19:16 BP 121 / 69; Pulse 109; Resp 15; Pulse Ox 98% ; jl7 19:30 BP 130 / 91; Pulse 112; Resp 22; Pulse Ox 98% on R/A; ll3 19:45 BP 133 / 83; Pulse 107; Resp 26; Pulse Ox 96% on R/A; ll3 20:00 BP 116 / 74; Pulse 98; Resp 23; Pulse Ox 98% on R/A; ll3 21:15 BP 107 / 84; Pulse 95; Resp 22; Pulse Ox 95% on R/A; ll3 17:58 Body Mass Index 34.48 (74.84 kg, 147.32 cm) nj 17:58 Pain Scale: Adult nj1 NIH Stroke Scale Scores: 18:00 NIHSS Score: 6 ms3 18:10 NIHSS Score: 6 jl7 Docena Coma Score: 20:00 Eye Response: spontaneous(4). Motor Response: obeys commands(6). Verbal Response: ms3 oriented(5). Total: 15. MDM: 18:23 Patient medically screened. ms3 19:10 ED course: TNKase delayed due to family and patient decision for TNKase.. ms3 19:27 ED course: [facility] on auto decline for NICU at this time. Will attempt to [place] [facility] [place] facilities at this time.. 20:00 Differential diagnosis: cerebral vascular accident, intracerebral hemorrhage, migraine. ms3 Data reviewed: vital signs, nurses notes, lab test result(s), EKG, radiologic studies, and as a result, I will Transfer patient. Consideration of Admission/Observation Patient transferred to [facility]. Management of patient was discussed with the following: Felt Finishing Supervisor: Dr Jules. I considered the following discharge prescriptions or medication management in the emergency department Medications were administered in the Emergency Department. See MAR. Independent interpretation of the following test(s) in the Emergency Department EKG: See my EKG interpretation above monitor worker: rate is 101 beats/min, Rhythm is normal sinus rhythm, regular, with no ectopy, Interpretation: normal rhythm, tachycardia. Discussion of test interpretation with radiology: I had a discussion with radiology regarding a test interpretation. CT Head negative. Test considered but Not performed: CT: CTA Head- Patient is allergic to contrast. Historians other than the Patient: Spouse/Significant Other: Patient's . Care significantly affected by the following chronic conditions: Diabetes, Hypertension, CVA. Counseling: I had a detailed discussion with the patient and/or guardian regarding: the historical points, exam findings, and any diagnostic results supporting the discharge/admit diagnosis, lab results, radiology results, the need to transfer to another facility, for higher level of care. Response to treatment: There is no appreciated change of the patient's symptoms at this time, and as a result, I will transfer to [facility]. ED course: Patient without change in neurologic status at this time.. 02/04 18:09 Order name: Basic Metabolic Panel; Complete Time: 20:36 [facility] 02/04 18:09 Order name: CBC with Diff; Complete Time: 19:27 [facility] 02/04 18:09 Order name: High Sensitivity Troponin; Complete Time: 20:36 [facility] 02/04 18:09 Order name: Protime (+inr); Complete Time: 20:36 [facility] 02/04 18:09 Order name: Ptt, Activated; Complete Time: 20:36 [facility] 02/04 18:45 Order name: Glucose, Ancillary Testing; Complete Time: 19:27 [facility] 02/04 18:09 Order name: CT Stroke Brain w/o Contrast; Complete Time: 19:27 [facility] 02/04 18:09 Order name: Stroke CXR 1 View; Complete Time: 19:27 [facility] 02/04 20:45 Order name: CT Head Brain wo Cont; Complete Time: 15:41 sp4 02/04 18:09 Order name: EKG; Complete Time: 18:10 [facility] 02/04 18:09 Order name: Accucheck; Complete Time: 18:39 [facility] 02/04 18:09 Order name: Cardiac monitoring; Complete Time: 18:39 [facility] 02/04 18:09 Order name: EKG - Nurse/Tech; Complete Time: 18:54 [facility] 02/04 18:09 Order name: IV Saline Lock; Complete Time: 18:43 [facility] 02/04 18:09 Order name: Labs collected and sent; Complete Time: 18:54 [facility] 02/04 18:09 Order name: NPO; Complete Time: 18:39 [facility] 02/04 18:09 Order name: O2 Per Protocol; Complete Time: 18:39 [facility] 02/04 18:09 Order name: O2 Sat Monitoring; Complete Time: 18:39 [facility] 02/04 18:09 Order name: Stroke Swallow Screen; Complete Time: 18:39 [facility] 02/04 18:52 Order name: Labs - recollect needed: recollect green and blue top; Complete Time: 19:49 bd EC:36 Rate is 110 beats/min. Rhythm is regular. QRS [place] is Normal. RI interval is normal. ms3 QRS interval is normal. QT interval is normal. Clinical impression: Sinus tachycardia. Interpreted by me. Reviewed by me. Administered Medications: 19:07 Drug: diphenhydrAMINE IVP 25 mg Route: IVP; Site: left antecubital; jl7 21:29 Follow up: Response: No adverse reaction ll3 19:07 Drug: MethylPrednisoLONE IVP 125 mg Route: IVP; Site: left antecubital; jl7 21:29 Follow up: Response: No adverse reaction 3 19:28 Drug: TNK FOR STROKE - Tenecteplase IV 0.25 mg/kg {Co-Signature: nj1 (Lexus Lovelace ll3 RN).} Route: IV; Rate: per protocol; Site: left antecubital; 21:30 Follow up: Response: No adverse reaction ll3 21:12 Drug: Ativan IVP 1 mg Route: IVP; Site: left antecubital; ll3 21:29 Follow up: Response: No adverse reaction ll3 Point of Care Testing: Blood Glucose: 18:10 Blood Glucose: 171 mg/dL; jl7 Ranges: Critical Glucose Levels:Adult <50 mg/dl or >400 mg/dl <40 mg/dl or >180 mg/dl Disposition Summary: 02/04/23 19:33 Transfer Ordered Transfer Location: Other Acute Care Facility ms3 Reason: Higher level of care ms3 Condition: Stable ms3 Problem: new ms3 Symptoms: are unchanged ms3 Accepting Physician: (02/04/23 21:44) ll3 Diagnosis - Dysarthria following unspecified cerebrovascular disease ms3 - CVA ms3 - Tongue numbness ms3 Forms: - Medication Reconciliation Form ms3 - SBAR form ms3 Critical care time excluding procedures: 20:05 Critical care time: Bedside Care: 50 minutes, Consultation: 10 minutes, Family ms3 Intervention: 20 minutes. Total time: 80 minutes NIH Stroke Scale - NIH Stroke Score Date: 02/04/2023 Time: 18:00 Total Score = 6 10. Dysarthria (speech clarity - read or repeat words) - 2(Severe) 11. Extinction and Inattention (visual/tactile/auditory/spatial/personal) - 0(No abnormality) 1a. Level of Consciousness (LOC) - 0(Alert) 1b. Level of Consciousness (LOC) (Month \T\ Age) - 0(Both) 1c. LOC Commands (Open \T\ Closes Eyes/Merchandise Flow Team Leader) - 0(Both) 2. Best Gaze (Lateral Gaze Paresis) - 0(Normal) 3. Visual Field Loss - 0(No visual loss) 4. Facial Palsy - 1(Minor Paralysis) 5a. Left Arm: Motor (10-second hold) - 0(No drift) 5b. Right Arm: Motor (10-second hold) - 1(Drift) 6a. Left Leg: Motor (5-second hold - always test supine) - 0(No drift) 6b. Right Leg: Motor (5-second hold - always test supine) - 1(Drift) 7. Limb Ataxia (finger/nose \T\ heel/monreal - test with eyes open) - 1(Present in one limb) 8. Sensory Loss (pinprick arms/legs/face) - 0(Normal) 9. Best Language: Aphasia (description/naming/reading) - 0(No aphasia) Initials: ms3 NIH Stroke Scale - NIH Stroke Score Date: 02/04/2023 Time: 18:10 Total Score = 6 10. Dysarthria (speech clarity - read or repeat words) - 2(Severe) 11. Extinction and Inattention (visual/tactile/auditory/spatial/personal) - 0(No abnormality) 1a. Level of Consciousness (LOC) - 0(Alert) 1b. Level of Consciousness (LOC) (Month \T\ Age) - 0(Both) 1c. LOC Commands (Open \T\ Closes Eyes/Merchandise Flow Team Leader) - 0(Both) 2. Best Gaze (Lateral Gaze Paresis) - 0(Normal) 3. Visual Field Loss - 0(No visual loss) 4. Facial Palsy - 1(Minor Paralysis) 5a. Left Arm: Motor (10-second hold) - 0(No drift) 5b. Right Arm: Motor (10-second hold) - 1(Drift) 6a. Left Leg: Motor (5-second hold - always test supine) - 0(No drift) 6b. Right Leg: Motor (5-second hold - always test supine) - 1(Drift) 7. Limb Ataxia (finger/nose \T\ heel/monreal - test with eyes open) - 1(Present in one limb) 8. Sensory Loss (pinprick arms/legs/face) - 0(Normal) 9. Best Language: Aphasia (description/naming/reading) - 0(No aphasia) Initials: jl7 Signatures: Dispatcher [employer] EDMS Tammie Fowler Joel, PA PA jmm Leal, Jahala, RN RN jl7 Moiz López DO DO ms3 Yasmeen Cole RN RN ll3 Lawrence Jon MD MD sp4 Lexus Lovelace RN nj1 Corrections: (The following items were deleted from the chart) 21:44 19:33 ms3 ll3
--- NOTE | 2023-02-04 19:34 | ER ---
Nurse's Notes [facility] Name: Amparo Franco Age: 57 yrs Sex: Female : 1965 Arrival Date: 02/04/2023 Time: 17:52 Bed 3 Private MD: Diagnosis: Dysarthria following unspecified cerebrovascular disease;CVA;Tongue numbness Presentation: 02/04 17:58 Chief complaint: Patient states: Headache since 9am this morning that has gotten worse. nj1 Pt states she started feeling her tongue and lower lip numb since about 5pm. Coronavirus screen: Vaccine status: Patient reports receiving the 2nd dose of the covid vaccine. Ebola Screen: Patient denies travel to an Ebola-affected area in the 21 days before illness onset. Initial Sepsis Screen: Does the patient meet any 2 criteria? HR > 90 bpm. No. Patient's initial sepsis screen is negative. Does the patient have a suspected source of infection? No. Patient's initial sepsis screen is negative. Risk Assessment: Do you want to hurt yourself or someone else? Patient reports no desire to harm self or others. Onset of symptoms was February 04, 2023 at 09:00. 17:58 Method Of Arrival: Ambulatory nj1 17:58 Acuity: HARPREET 2 nj1 18:00 Note During triage, patient starts having trouble speaking. Tongue protrusion noted. ED nj1 provider notified, Bharat HOPSON. 19:19 An acute neurological deficit is present. The charge nurse has been notified. The jl7 patient has been moved to a treatment area. Pre-hospital glucose is not applicable to this patient. Triage Assessment: 18:10 The onset of the patients symptoms was February 04, 2023 at 17:00. Headache History: The jl7 patient has had previous headaches and this one is different than previous episodes. General: Appears in no apparent distress. uncomfortable, Behavior is cooperative, anxious. Pain: Complains of pain in [place] Pain currently is 10 out of 10 on a pain scale. Pain began at 0900 Is continuous, Also complains of no other associated symptoms. Neuro: Level of Consciousness is awake, alert, obeys commands, Oriented to unable to verbalize answers. Reports inability to form words. Cardiovascular: Patient's skin is warm and dry. Respiratory: Airway is patent Respiratory effort is even, unlabored, Respiratory pattern is regular, symmetrical. Derm: Skin is pink, warm \T\ dry. Stroke Activation: Symptom onset < 3 hours Physician: Stroke Attending; Name: ; Notified At: ; Arrived At: Physician: Chief Stroke Resident; Name: ; Notified At: ; Arrived At: Physician: Stroke Resident; Name: ; Notified At: ; Arrived At: Physician: ED Attending; Name: Maribel; Notified At: 18:08; Arrived At: 18:08 Physician: ED Resident; Name: ; Notified At: ; Arrived At: Historical: - Allergies: 19:07 Advil; jl7 19:07 Cipro; jl7 19:07 IV contrast; jl7 19:07 Morphine; jl7 - PMHx: 19:07 CVA; Depression; Diabetes - NIDDM; Hyperlipidemia; Hypertension; jl7 - PSHx: 19:07 Cholecystectomy; jl7 - Immunization history:: Adult Immunizations unknown. - Social history:: Smoking status: unknown. Screenin:16 [facility] ED Fall Risk Assessment (Adult) History of falling in the last 3 months, jl7 including since admission No falls in past 3 months (0 pts) Confusion or Disorientation No (0 pts) Intoxicated or Sedated No (0 pts) Impaired Gait No (0 pts) Mobility Assist Device Used No (0 pt) Altered Elimination No (0 pt) Score/Fall Risk Level 0 - 2 = Low Risk Oriented to surroundings, Maintained a safe environment. Abuse screen: Denies threats or abuse. Denies injuries from another. Nutritional screening: No deficits noted. Tuberculosis screening: No symptoms or risk factors identified. Assessment: 18:10 VAN Scoring: Arm Drift: Minor drift Visual Disturbance: No visual disturbance noted. jl7 Aphasia: Expressive aphasia noted. Provider notified of +VAN scoring. Neglect: No neglect noted. 18:30 Reassessment: Family and pt unsure about TNK, talking it over at this time. jl7 18:45 Keesha Swallow Protocol Brief Cognitive Screen What is your name? Abnormal: Pt unable to jl7 verbalize answers. Oral Mechanism Examination Facial Symmetry: Abnormal: pt with tongue protruding from mouth. Result: FAIL MD Notified: Moiz López DO. 19:15 Reassessment: Family at bedside, \T\ son and daughter on the phone, unsure of jl7 giving TNK. Dr. López at bedside discussing risk and benefits with pt and family. Son reports pt has had these symptoms before with an allergic reaction and another time with anxiety then another time it was a stroke. Dr. López called neurologist and who continues to recommend TNK. Pt and family verbalize understanding and request for TNK to be given. 19:20 General: Rukhsana with [facility] stated that they are on Auto decline for pf1 NE and strokes at the , will check with other hospitals and call us back. . 19:25 TNKase (Tenecteplase) Screening: Indications: Definite evidence of stroke, ischemic, jl7 embolic, or hypertensive: Yes. Treatment will start within 4.5 hours onset of symptoms: Yes. No evidence of intracranial hemorrhage or CT of head and no evidence of peripheral hemorrhage or recent CVA: Yes. Consent for thrombolytic therapy: Yes. 20:30 Reassessment: Pt c/o sudden numbness to right arm and left, ERP notified and at bedside.ll3 Vital Signs: 17:58 BP 102 / 55; Pulse 109; Resp 16; Temp 100.1; Pulse Ox 98% on R/A; Weight 74.84 kg; nj1 Height 4 ft. 10 in. ; Pain 10/10; 19:16 BP 121 / 69; Pulse 109; Resp 15; Pulse Ox 98% ; jl7 19:30 BP 130 / 91; Pulse 112; Resp 22; Pulse Ox 98% on R/A; ll3 19:45 BP 133 / 83; Pulse 107; Resp 26; Pulse Ox 96% on R/A; ll3 20:00 BP 116 / 74; Pulse 98; Resp 23; Pulse Ox 98% on R/A; ll3 21:15 BP 107 / 84; Pulse 95; Resp 22; Pulse Ox 95% on R/A; ll3 17:58 Body Mass Index 34.48 (74.84 kg, 147.32 cm) nj1 17:58 Pain Scale: Adult nj1 Kwan Coma Score: 20:00 Eye Response: spontaneous(4). Motor Response: obeys commands(6). Verbal Response: ms3 oriented(5). Total: 15. NIH Stroke Scale Scores: 18:00 NIHSS Score: 6 ms3 18:10 NIHSS Score: 6 jl7 ED Course: 17:53 Patient arrived in ED. rg4 18:04 Triage completed. nj1 18:10 Patient has correct armband on for positive identification. Bed in low position. Call jose light in reach. Side rails up X2. Client placed on continuous cardiac and pulse oximetry monitoring. NIBP monitoring applied. Warm blanket given. 18:10 Arm band placed on right wrist. Patient placed in an exam room, on a stretcher. jl7 18:20 CT Stroke Brain w/o Contrast In Process Unspecified. EDMS 18:21 Moiz López DO is Attending Physician. ms3 18:38 Rosa Shin, JANET is Primary Nurse. jl7 18:39 Initial lab(s) drawn, by mo, sent to lab. EKG done, by ED staff, reviewed by Moiz López DO. Inserted saline lock: 22 gauge in left antecubital area, using aseptic technique. Blood collected. 19:11 Stroke CXR 1 View In Process Unspecified. EDMS 19:15 Contacted [facility] for pt transfer request. ah1 19:25 Inserted saline lock: 20 gauge in right antecubital area, using aseptic technique. nj1 ,using aseptic technique. Ultrasound guided. Catheter tip well visualized within vasculature during placement. Blood collected. 19:38 Primary Nurse role handed off by Rosa Shin, JANET jl7 19:50 Received initial approval from Dr. Lico Mckeon at [facility]. ah1 19:58 Received [facility] approval to transfer and placement. ah1 20:45 Attending Physician role handed off by Moiz López DO sp4 20:45 Lawrence Jon MD is Attending Physician. sp4 20:58 CT Head Brain wo Cont In Process Unspecified. EDMS 21:05 EMS arrival. ah1 21:29 No provider procedures requiring assistance completed. Patient transferred, IV remains ll3 in place. Administered Medications: 19:07 Drug: diphenhydrAMINE IVP 25 mg Route: IVP; Site: left antecubital; jl7 21:29 Follow up: Response: No adverse reaction ll3 19:07 Drug: MethylPrednisoLONE IVP 125 mg Route: IVP; Site: left antecubital; jl7 21:29 Follow up: Response: No adverse reaction 3 19:28 Drug: TNK FOR STROKE - Tenecteplase IV 0.25 mg/kg {Co-Signature: nj1 (Lexus Lovelace 3 RN).} Route: IV; Rate: per protocol; Site: left antecubital; 21:30 Follow up: Response: No adverse reaction 3 21:12 Drug: Ativan IVP 1 mg Route: IVP; Site: left antecubital; 3 21:29 Follow up: Response: No adverse reaction 3 Medication: 19:16 VIS not applicable for this client. jl7 Point of Care Testing: Blood Glucose: 18:10 Blood Glucose: 171 mg/dL; jl7 Ranges: Outcome: 19:33 ER care complete, transfer ordered by . ms3 21:29 Transferred by ground EMS to [facility], Transfer form completed. 3 X-rays sent w/ patient. 21:29 Condition: stable 21:29 Instructed on the need for transfer, Demonstrated understanding of instructions. 21:44 Patient left the ED. ll3 NIH Stroke Scale - NIH Stroke Score Date: 02/04/2023 Time: 18:00 Total Score = 6 10. Dysarthria (speech clarity - read or repeat words) - 2(Severe) 11. Extinction and Inattention (visual/tactile/auditory/spatial/personal) - 0(No abnormality) 1a. Level of Consciousness (LOC) - 0(Alert) 1b. Level of Consciousness (LOC) (Month \T\ Age) - 0(Both) 1c. LOC Commands (Open \T\ Closes Eyes/Technical Sales Consultant) - 0(Both) 2. Best Gaze (Lateral Gaze Paresis) - 0(Normal) 3. Visual Field Loss - 0(No visual loss) 4. Facial Palsy - 1(Minor Paralysis) 5a. Left Arm: Motor (10-second hold) - 0(No drift) 5b. Right Arm: Motor (10-second hold) - 1(Drift) 6a. Left Leg: Motor (5-second hold - always test supine) - 0(No drift) 6b. Right Leg: Motor (5-second hold - always test supine) - 1(Drift) 7. Limb Ataxia (finger/nose \T\ heel/monreal - test with eyes open) - 1(Present in one limb) 8. Sensory Loss (pinprick arms/legs/face) - 0(Normal) 9. Best Language: Aphasia (description/naming/reading) - 0(No aphasia) Initials: ms3 NIH Stroke Scale - NIH Stroke Score Date: 02/04/2023 Time: 18:10 Total Score = 6 10. Dysarthria (speech clarity - read or repeat words) - 2(Severe) 11. Extinction and Inattention (visual/tactile/auditory/spatial/personal) - 0(No abnormality) 1a. Level of Consciousness (LOC) - 0(Alert) 1b. Level of Consciousness (LOC) (Month \T\ Age) - 0(Both) 1c. LOC Commands (Open \T\ Closes Eyes/Technical Sales Consultant) - 0(Both) 2. Best Gaze (Lateral Gaze Paresis) - 0(Normal) 3. Visual Field Loss - 0(No visual loss) 4. Facial Palsy - 1(Minor Paralysis) 5a. Left Arm: Motor (10-second hold) - 0(No drift) 5b. Right Arm: Motor (10-second hold) - 1(Drift) 6a. Left Leg: Motor (5-second hold - always test supine) - 0(No drift) 6b. Right Leg: Motor (5-second hold - always test supine) - 1(Drift) 7. Limb Ataxia (finger/nose \T\ heel/monreal - test with eyes open) - 1(Present in one limb) 8. Sensory Loss (pinprick arms/legs/face) - 0(Normal) 9. Best Language: Aphasia (description/naming/reading) - 0(No aphasia) Initials: jl7 Signatures: Dispatcher [employer] EDMS Birgit Valles rg4 Rosa Shin RN RN jl7 Moiz López DO DO ms3 Yasmeen Cole RN RN ll3 Olya Peter RN RN pf1 Lawrence Jon MD MD sp4 Lexus Lovelace RN RN nj1 Disha Trinidad [facility] Lexus Lovelace RN nj1 Corrections: (The following items were deleted from the chart) 21:00 20:40 Reassessment: Pt c/o sudden numbness to right arm and left, ERP notified ll3 and at bedside ll3 21:13 19:15 Received initial approval from Dr. Lico Mckeon at [facility] ah1 ah1
[2023-02-04 19:45] LABS: Protime INR 0.95
[2023-02-04 20:05] LABS: Troponin High Sensitivity 4.4 pg/mL (<58.9)
[2023-02-04] MEDS ORDERED: LORazepam 2 MG/ML VIAL ONE (20:59)
--- NOTE | 2023-02-04 21:03 | RAD REPORT ---
EXAM DESCRIPTION: CT - Head Brain Wo Cont - 02/04/2023 8:56 pm CLINICAL HISTORY: APHASIA Headache, drowsiness COMPARISON: Ct Stroke Brain Wo Cont dated 02/04/2023; Head Brain Wo Cont dated 01/04/2017 TECHNIQUE: All CT scans are performed using dose optimization technique as appropriate and may inclu de automated exposure control or mA/KV adjustment according to patient size. FINDINGS: No intracranial hemorrhage, hydrocephalus or extra-axial fluid collection.Small old left-s ided lacune.No areas of brain edema or evidence of midline shift. The paranasal sinuses and mastoids are clear. The calvarium is intact. IMPRESSION: No acute intracranial abnormality.
[2023-02-04 21:52] VITALS: TEMP 100.1
[2023-02-04 22:00] VITALS: BP 107/84; O2SAT 95
--- NOTE | 2023-02-05 07:47 | EKG ---
Test Date: 2023-02-04 Test Time: 18:52:17 Transit Manager: ALP MEASUREMENT RESULTS: Intervals: Rate: 110 GA: 144 QRSD: 78 QT: 314 QTc: 424 [place]: P: 63 GA: 144 QRS: 26 T: 57 INTERPRETIVE STATEMENTS: Sinus tachycardia Otherwise normal ECG Compared to ECG 01/16/2023 22:31:51 Sinus rhythm no longer present Electronically Signed On 02-05-23 07:45:35 CDT by Zach Jaffe
== END 2023-02-04 21:44 ==
LOC: ER 17:52
DX: I63.9 Cerebral infarction, unspecified (principal); R47.1 Dysarthria and anarthria; R20.0 Anesthesia of skin; R29.706 NIHSS score 6; I10 Essential (primary) hypertension; E11.9 Type 2 diabetes mellitus without complications; E78.5 Hyperlipidemia, unspecified; F32.A Depression, unspecified; Z86.73 Personal history of transient ischemic attack (TIA), and cerebral infarction without residual deficits; Z88.3 Allergy status to other anti-infective agents; Z88.5 Allergy status to narcotic agent; Z88.8 Allergy status to other drugs, medicaments and biological substances; Z91.041 Radiographic dye allergy status; Z90.49 Acquired absence of other specified parts of digestive tract
CPT/HCPCS: 92977; 93005; 85025; 80048; 36415; 85610; 82947; 85730; 84484; 70450 ×2; 71045; 96375; 96374; 99285; J3101; J1200; J2930

== ENCOUNTER 2023-05-22 14:28 | Emergency (ER) | payer OTHER ==
--- OUTSIDE RECORDS SUMMARY | 2023-05-22 14:58 | XMS REPORT | Continuity of Care Document ---
:1965 Author Organization [facility] t Address [address] [place] [address] Care Team Providers Name Role Phone JACKIE FERNANDEZ Primary Care Physician Unavailable Jarod Mckeon Anavella Attending Clinician Unava ilable [id number] Attending Clinician Unavailable JOSE CABALLERO Attending Clinician Unavailable ANGEL MONTOYA Attending Clinician Unavailable ANGEL MONTOYA Attending Clinician Unavailable JACKIE FERNANDEZ Attending Clinician Unavailable KILLIAN BARTHOLOMEW Attending Clinician Unavailable IKE PRITCHETT Attending Clinician Unavailable PÉREZ MCKEON Attending Clinician Unavailable RACHELE BANSAL Attending Clinician Unavailable MARÍA HERNANDEZ Attending Clinician Unavailable LAB90 Attending Clinician Unavailable Jennifer Banks PT Attending Clinician Unavailable Rachele Bansal MD Attending Clinician Doctor Unassigned, [place] Attending Clinician Unavailable ANGELITO ESTRELLA Attending Clinician Unavailable LAB39 Attending Clinician Unavailable JAZLYN GHOSH I. Attending Clinician Unavailable ABAD LUCIA Attending Clinician Unavailable KENA LEMONS Attending Clinician Unavailable Jewels Ham V Attending Clinician Unavailable PAUL ASHTON Attending Clinician Unavailable KAMILLA NAVA Attending Clinician Unavailable MILAGROS HARMON Attending Clinician Unavailable BLADIMIR TREJO Attending Clinician Unavailable MINDY MOREAU Attending Clinician Unavailable MINDY MOREAU Attending Clinician Unavailable Lico Way MD Attending Clinician Unavailable Apryl Holguin MD, Dexter Dai Attending Clinici an Mindy Moreau MD Attending Clinician Rj Mathis MD Attending Clinician [phone] MAYLIN JO Attending Clinician Unavailable Caitlin Valles OT Attending Clinician Unavailable Chidi DNP, ELECTRICAL PANEL BUILDER, [place]en Attending Clinician [phone] Rj Mccord PA-C Attending Clinician Jovita Mora MD Attending Clinician Mann Perdomo NP Attending Clinician RJ MCCORD Attending Clinician Unavailable DANY KHANNA Attending Clinician Unavailable JOVITA MORA Attending Clinician Unavailable Caitlin Tucker PTA Attending Clinician Unavailable Kena Tucker PTA Attending Clinician Unavailable 2, Adc Lab Attending Clinician Unavailable Danny William MD Attending Clinician MANN PERDOMO Attending Clinician Unavailable DANNY WILLIAM Attending Clinician Unavailable BRYANT ANDERSON Attending Clinician Unavailable Bryant Anderson MD Attending Clinician RJ MATHIS Attending Clinician Unavailable Vilam MAGUIRE Attending Clinician Unavailable Vilma Phan Attending Clinician Bud Ma Attending Clinician BUD ORDONEZ Attending Clinician Unavailable SHERRIE FERNÁNDEZ Attending Clinician Unavailable Jimy Cardona OT Attending Clinician Unavailable Clara Kim OD Attending Clinician CLRAA KIM Attending Clinician Unavailable Geneva PTLashaun Attending Clinician Unavailable Ama Manzo PT Attending Clinician Unavailable Mahamed Goodwin Attending Clinician Musa FLETCHER, Charan Attending Clinician CHARAN VIGIL Attending Clinician Unavailable Vls-Lab Attending Clinician Unavailable Dada Saleh MD Attending Clinician Jannette Vázquez MD Attending Clinician JANNETTE VÁZQUEZ Attending Clinician Unavailable Ghada Dutta RN Attending Clinician Unavailable Only, Davon Db Test Attending Clinician Unavailable Therapy, Adc Covid Infusion Attending Clinician Unavailable Jonathan Barrow MD Attending Clinician JONATHAN BARROW Attending Clinician Unavailable MAHAMED ROBLES Attending Clinician Unavailable Therapy-Walkin, Jyx-Bx-Qdwsm Attending Clinician Unavailable Ayden Reyes MD Attending Clinician AYDEN REYES Attending Clinician Unavailable Yan Frazier MD Attending Clinician YAN FRAZIER Attending Clinician Unavailable HEATHER JURADO Attending Clinician Unavailable JOSH JOHNSON Attending Clinician Unavailable LIBRADO FONSECA Attending Clinician Unavailable JAIMIE PAPPAS Attending Clinician Unavailable DADA SALEH Attending Clinician Unavailable DADA SALEH Attending Clinician Unavailable TORSTEN COCHRAN Attending Clinician Unavailable ASNDI VEGA Attending Clinician Unavailable YAMILA BARROW Attending Clinician Unavailable MAXIMO GEORGE Attending Clinician Unavailable TAMIKO RAMACHANDRAN Attending Clinician Unavailable JOSIE TIMMONS Attending Clinician Unavailable JOSIE TIMMONS Attending Clinician Unavailable BRAXTON CASTILLO M.D. Attending Clinician Unavailable COLEEN MURILLO NP Attending Clinician Unavailable Jewels Mckeonv, Anav Admitting Clinician Unavailable [id number] Admitting Clinician Unavailable JOSE CABALLERO Admitting Clinician Unavailable Homero Davis Jewels V Admitting Clinician Unavailable DEXTER ARIZMENDI Admitting Clinician Unavailable MANN PERDOMO Admitting Clinician Unavailable DANNY WILLIAM Admitting Clinician Unavailable BRYANT ANDERSON Admitting Clinician Unavailable Vilma MAGUIRE Admitting Clinician Unavailable RJ MCCORD Admitting Clinician Unavailable BUD ORDONEZ Admitting Clinician Unavailable MAXIMO GEORGE Admitting Clinician Unavailable TAMIKO RAMACHANDARN Admitting Clinician Unavailable Payers Payer Name Policy Type Policy Number Effective Date Expiration Date S angel [facility] WELLMED [id number] 2021 00:00:00 [facility] [id number] WELLMED/AARP MCARE [id number] 2020 ADV CHOICE PPO 00:00:00 [facility] MA AARP PLAN 1 7 [id number] 2022 HMO 00:00:00 WELLMED MEDICARE [id number] 2022 00:00:00 [facility] MA DUAL 5 [id number] 2022 COMPLETE ALLY 00:00:00 D-SNP UMPIRE [id number] 2020 HEALTHCARE/AARP 00:00:00 Problems Condition Condition Condition Status Onset Resolution Last Treating Co mments Source Name Details Category Date Date Treatment Clinician Date 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 00:00: - eyes eyes 00 Externa l JAMSHID JAMSHID Disease Active Melinda (obstructi (obstructi 8-23 Se ybold ve sleep ve sleep 00:00: - apnea) apnea) 00 Externa l History of History of Disease Active K elsey cerebral cerebral 7-13 Seybol d hemorrhage hemorrhage 00:00: - 00 Externa l Right Right Disease Active Melinda hemiparesi hemiparesi 7-13 Se ybold s s 00:00: - 00 Externa l Abnormal Abnormal Disease Active Kelse y MRI scan, MRI scan, 7-13 Seyb old bone bone 00:00: - 00 Externa l Grief Grief Disease Active Melinda 6-21 Seybold 00:00: - 00 Externa l Received Received Disease [facility] plasminoge plasminoge 00:00: Me dical n n 00 Center activator activator (t-PA) (t-PA) less than less than 24 hours 24 hours prior to prior to arrival arrival RAMIRO (acute RAMIRO (acute Disease Active [facility] kidney kidney 5-16 [facility] injury) injury) 00:00: Medical 00 [place] Acute Acute Disease Recurre [facility] ischemic ischemic nce 5-15 [facility] stroke stroke 00:00: Medical 00 [place] Postmenopa Postmenopa Disease Active U nivers usal [...] 34.9 in adult adult Chronic Chronic Disease Recurre [facility] constipati constipati nce 4-10 [facility] on on 00:00: Medical 00 [place] Chronic Chronic Disease Active Melinda pain pain [...] 00:00: - deficit deficit 00 Externa l 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 00:00: [place] mixed mixed 00 Medical hyperlipid hyperlipid Br anch emia emia Gastroesop Gastroesop Disease Recurre [facility] hageal hageal nce 1-10 [facility] reflux reflux 00:00: Medical disease disease 00 Center without without esophagiti esophagiti s s History of History of Disease Active 2020-09 U nivers stroke stroke 2-01 ity of 00:00: [place] 00 Medical Branch Sciatic Sciatic Disease Active 2020-09 Univers nerve nerve 2-01 ity of pain, pain, 00:00: [place] right right 00 Medical Branch History of History of Disease Active 2020-09 U nivers CVA with CVA with 2-01 ity of residual residual 00:00: [place] deficit deficit 00 Medical Branch Mixed Mixed Disease Recurre 2020-[address] hyperlipid hyperlipid nce 2-01 N[facility]es emia emia 00:00: Medical 00 Center Limitation Limitation Disease Active U nivers of joint of joint 9-16 ity of motion of motion of 00:[place] right right [place] Medical wrist wrist Branch Limitation Limitation Disease Active U nivers of joint of joint 9-16 ity of motion of motion of 00:[place] right [place] right hand 00 Ca dical Branch Chronic Chronic Disease Recurre [facility] allergic allergic nce 6-10 [facility] rhinitis rhinitis 00:00: Medica l 00 Center Decreased Decreased Disease Active Uni vers activities activities 5-27 it y of of daily of daily 00:00: [place] living living 00 Medical (ADL) (ADL) Branch Stiffness Stiffness Disease Active Uni vers of right of right 5-27 ity of wrist wrist 00:00: [place] joint joint 00 Medical Branch Stiffness Stiffness Disease Active Uni vers of finger of finger 5-13 ity of joint of joint of 00:00: [place] right hand right hand 00 Me dical [...] y of of talar of talar 00:00: [place] dome dome 00 Medical Branch Peroneal Peroneal Disease Active Unive rs tendinitis tendinitis 8-17 it y of , right , right 00:00: Medical Branch 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, varus, 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, acquired, 00:[place] Chronic Chronic Disease Active Univers left left 2- ity of shoulder shoulder 00:00: [place] pain pain 00 Medical Branch Pain of Pain of Disease Active Univers foot, foot, 2-28 ity of unspecifie unspecifie 00:[place] Medical laterality laterality Br anch Chronic Chronic Disease Active Univers pain pain 2- ity of syndrome syndrome 00:00: Medical Branch Obesity Obesity Disease Active Univers (BMI (BMI 5-20 ity of 30-39.9) 30-39.9) 00:00: Medical Branch Encounter Encounter Disease Active Overview: Univers for for 01-21 Formattin ity of complete complete 00:00: g of this Matt as eye exam eye exam 00 note Medica l might be Branch different from the original. Added automatic ally from request for surgery [id number] Epigastric Epigastric Disease Active Overview : Univers pain pain 01-21 Formattin ity of 00:00: g of this [place] 00 note Medical might be Branch different from the original. Added automatic ally from request for surgery [id number] Chronic Chronic Disease Active 2017-09 Univers endometrit endometrit 1-16 it y of is is 00:00: [place] Medical [facility] Postmenopa Postmenopa Disease Active 2017-09 U nivers usal usal 1-16 ity of bleeding bleeding 00:00: [place] Medical Branch Chronic Chronic Disease Active Univers right-side right-side 5-04 it y of d low back d low back 00:[place] pain 00 Medical without without Branch sciatica sciatica Neuropathy Neuropathy Disease Active 2016-09 U nivers 2-27 ity of 00:00: [place] [facility] JAMSHID JAMSHID Disease Recurre [facility] (obstructi (obstructi nce 06-17 Niki kes ve sleep ve sleep 00:00: Medica l apnea) apnea) 00 Center Primary Primary Disease Recurre [facility] hypertensi hypertensi nce 9-25 Niki kes on on 00:00: Medical 00 Center Type 2 Type [address] [facility] diabetes diabetes nce 9- [facility] mellitus mellitus 00:00: Medica l without without 00 Center complicati complicati on, on, without without long-term long-term current current use of use of insulin insulin Hemiplegia Hemiplegia Disease Recurre [facility] affecting affecting nce 7-11 Luke s right side right side 00:00: Me dical in in 00 Center right-kala right-kala nant nant patient as patient as late late effect of effect of cerebrovas cerebrovas cular cular disease disease CVA CVA Diagnosis Active 2017-01-07 Mem oria Active 01-04 04:00:00 l 01/04/2017 00:00: Gerardo zafar [address], Rehabilita tion LWOT LWOT Diagnosis Active 2014-03-21 Mem oria Active 03-19 02:43:00 l 03/19/2014 00:00: Gerardo zafar [address] STROKE STROKE Diagnosis Active 2014-03-18 Me moria LIKE LIKE 03-17 06:12:00 l SYMPTOMS SYMPTOMS 00:00: Gerardo zafar Active 00 03/17/2014 [facility] STROKE STROKE Diagnosis Active 2015-09-14 Me moria LIKE LIKE 03-17 14:33:00 l SYMPTOMS, SYMPTOMS, 00:00: Yoni oliveira TIA TIA Active 00 03/17/2014 [facility] HEMORRHAGI Diagnosis Active 2015-09-14 Memoria C CVA HEMORRHAGI 3-06 14:34:00 l C CVA 00:00: Srikanth Active 00 11/26/2013 [facility] Mancini's Mancini's Problem Resolve 2017-06-17 Mem oria palsy palsy d 05:46:07 l (disorder) (disorder) He jamal Resolved Problem 06/17/2017 [facility] [place] [facility]AMA [facility] Cerebral Cerebral Problem Resolve 2017-06-17 Memoria infarction infarction d 05:46:07 l (disorder) (disorder) He jamal Resolved Problem 06/17/2017 [facility] [place] [facility] OPISunni [facility] Gastritis Gastritis Problem Resolve 2017-06-17 Memoria and and d 05:46:07 l duodenitis duodenitis He rmann (disorder) (disorder) Resolved Problem 06/17/2017 [facility] [place] [facility] OPID Srikanth 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 21:31:50 l occlusion occlusion Herm tee (disorder) (disorder) Resolved Problem 12/02/2013 [facility] Gastritis( Gastritis Problem Resolve 2013-12-02 Memoria Confirmed) (Confirmed d 21:31:50 l ) Resolved Gerardo n Problem 12/02/2013 [facility] CVA CVA Problem Resolve 2014-03-23 Jose Luis dennis (cerebral (cerebral d 20:08:30 l infarction infarction He rmann )(Confirme )(Confirme d) d) Resolved Problem 03/23/2014 [facility] History of History of Problem Resolve [place] essential essential HL7.CCDAR2 d Physici hypertensi hypertensi an s on on Diabetes Diabetes Problem Active 2017-06-17 Memoria mellitus mellitus 05:46:07 l (disorder) (disorder) He rmann Active Problem 06/17/2017 [facility] [place] [facility] Dizziness Dizziness Problem Active 2017-06-17 Memoria (finding) (finding) 05:46:07 l Active Srikanth Problem 06/17/2017 [facility] [place] [facility]IS[facility] Seizure Seizure Problem Active 2017-06-17 M emoria (finding) (finding) 05:46:07 l Active Srikanth Problem 06/17/2017 [facility] [place] [facility] OPISunni [facility] CVA CVA Diagnosis Active 2015-09-14 Mem oria Active 14:34:00 l [facility] Rehabilita tion TRANS TRANS Diagnosis Active 2015-09-14 Mem oria CEREB CEREB 14:33:00 l ISCHEMIA ISCHEMIA Gerardo n NEC NEC Active [facility] History of History of Problem Resolve [...] bral bral ans hemorrhage hemorrhage ) ) History of History of Problem Resolve [place] type 2 type 2 HL7.CCDAR2 d Physic i diabetes diabetes ans mellitus mellitus History of Past Illness Condition Condition Condition Status Onset Resolution Last Treating Co mments Source Name Details Category Date Date Treatment Clinician Date Headache Headache Problem 2017-01-08 2017-01-08 Memoria 01/05/201715 01:04:01 01:04:01 l 01/08/2017 05:00: Gerardo zafar [address] Allergies, Adverse Reactions, Alerts Allergy Allergy Status Severity Reaction(s) Onset Inactive Treating Comm ents Source Name Type Date Date Clinician IODINATE Allergy Active High Anaphylaxis [facility]15 [facility] CONTRAST 00:00: Medical MEDIA 00 Center IBUPROFE Allergy Active [facility]15 [facility] 00:00: Medical 00 Center CIPROFLO Allergy Active [facility] XACIN 5-15 [facility] HCL 00:00: Medical 00 Center MORPHINE Allergy Active [facility] 5[facility]15 [facility] 00:00: Medical 00 Center Ibuprofe Propensi Active [facility] n ty to 5-15 [facility] adverse 00:00: Medical reaction 00 Center s Ciproflo Propensi Active [facility] xacin ty to 5-15 [facility] Hcl adverse 00:00: Medical reaction 00 Center s Iodinate Propensi Active Anaphylaxis [address] d ty to 5-15 [facility] Contrast adverse 00:00: Medical Media reaction 00 Center s Morphine Propensi Active [facility] ty to 5-15 [facility] adverse 00:00: Medical reaction 00 Center s Hydrocod Propensi Active Shortness of Abdomin al Melinda one-Acet ty to Breath 5-12 Pain Seybold aminophe adverse 00:00: - n reaction 00 Externa s l Ibuprofe Propensi Active Rash Melinda n ty to 2-23 Seybold adverse 00:00: - reaction 00 Externa s l Iodinate Propensi Active Anaphylaxis K elsey d ty to 2-23 Seybold Contrast adverse 00:00: - reaction 00 Externa s l Morphine Propensi Active Hives Melinda ty to 2-23 Seybold adverse 00:00: - reaction 00 Externa s l Tramadol Propensi Active Rash Melinda ty to 2-23 Seybold adverse 00:00: - reaction 00 Externa s l Ibuprofe Propensi Active Other 2021-09 Abdominal [place] n ty to 0-26 pain Health adverse 00:00: reaction 00 s Tramadol Propensi Active 2021-09 [place] ty to 0-26 Health adverse 00:00: reaction 00 s Shellfis Propensi Active 2021-09 Melinda h-Derive ty to 0-26 Seybold d adverse 00:00: - Products reaction 00 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 Naproxen Propensi Active 2021-09 [place] ty to 0-26 Health adverse 00:00: reaction 00 s IODINATE Drug Active Anaphylaxis Uni vers D Class 9-23 ity of CONTRAST 00:00: [place] MEDIA 00 Medical Branch OMEGA-3 DRUG Active Unknown-Cmnt Uni vers FATTY INGREDI 9 ity of ACIDS 00:00: [place] 00 Medical Branch Iodinate Propensi Active Anaphylaxis U nivers d ty to 923 ity of Contrast adverse 00:00: [place] Media reaction 00 Medical s Branch IODINE DRUG Active High Anaphylaxis Unive rs INGREDI 9- ity of 00:00: [place] 00 Medical Branch Docosahe Propensi Active Rash Other Melinda xaenoic ty to 9 reaction( Seybol d Acid adverse 00:00: s): - (Dha) reaction 00 Unknown - Exter na (Microal s See l gae) commentsD ue to contrast rxnDue to contrast rxn Iodine Propensi Active Anaphylaxis Cyril sey ty to 06-15 Seybold adverse 00:00: [...] headache traMADol traMADol Active Memori a l [place] Advil Advil Active Memoria l Srikanth Ciprodex [...] Date Stop Date Quantity Comments Source History [facility] o f Alcohol Std Drinks [place] [facility] History [facility] University o f Alcohol Binge [place] [facility] History [facility] University o f Alcohol Comment [place] [facility] Gender identity [facility]it y [facility] [place] [facility] Sexual orientation Univer editay of [place] [facility] History SDOH [facility]Med [facility] History SDOH 2023-02-05 2023-02-[address] [facility] Transport Med 00:00:00 00:00:[address] History [facility] 2023-02-05 2023-02-[address] [facility] Housing Unable to 00:00:00 00:00:00 Medical Center Pay History [facility] 2023-02-05 2023-02-[address] [facility] Housing Places 00:00:00 00:00:00 Medical Ce nter Lived History [facility] 2023-02-05 2023-02-[address] [facility] Housing Homeless 00:00:00 00:00:00 Medical Center Last Year Exposure to 2023-01-25 2023-02-[address] [facility] SARS-CoV-2 (event) 00:00:00 23:51:00 Medica l Center Tobacco use and 2023-02-04 2023-02-[address] [facility] kes exposure 00:00:00 00:00:00 tobacco non-user Medical Center Alcohol intake 2023-02-04 2023-02-[address] [facility] 00:00:00 00:00:00 non-drinker Medical Domi conte (finding) History of Social 2022-06-08 2022-06-08 Univers ity of function 00:00:00 00:00:00 [facility] [place] [facility] History SDOH 2021-11-02 2021-11-02 1 University o f Alcohol Frequency 00:00:00 00:00:00 [facility] Social History 2014-03-18 2014-03-18 [facility] 20:46:33 20:46:33 Sex Assigned At [address] [facility] 00:00:00 00:00:00 Medical Center Smoking Status Start Date Stop Date Source Tobacco smoking consumption unknown Melinda Snyderold - External Never smoked tobacco Melinda Snyder old - External Medications Ordered Filled Start Stop Current Ordering Indication Dosage Frequency Signature Comments Components Source Medication Medication Date Date Medication? Clinician (SIG) Name Name Pantoprazol 2022- No 40mg Take 1 Cyril sey e Sodium 40 8-23 08-23 tablet (40 S eybold MG oral 10:53: 00:00 mg total) - Tablet 41 :00 by mouth Externa Delayed daily. l Response Baclofen 10 2022- No 10mg Take 1 Cyril sey MG oral 8-23 08-23 tablet (10 Seybo ld Tablet 10:53: 00:00 mg total) - 41 :00 by mouth 3 Externa times l daily. Cyanocobala Yes Take by Cyril sey min 8-23 mouth Seybold (Vitamin 10:36: - B-12) 100 06 Externa MCG oral l Tablet Aspirin 81 Yes 81mg Take 1 Kelse y MG oral 8-23 tablet (81 Seybol d Chewable 10:36: mg total) - Tablet 06 by mouth Externa daily. l Pantoprazol Yes [id number] 40mg Take 1 Melinda e Sodium 40 8-23 tablet (40 Se ybold MG oral 00:00: mg total) - Tablet 00 by mouth Externa Delayed daily. l Response Baclofen Yes [id number] 10mg Take 1 Melinda MG oral 8-23 tablet (10 Seybol d Tablet 00:00: mg total) - 00 by mouth 3 Externa times l daily. Gabapentin Yes [id number] 900 mg Melinda 300 MG oral 8-23 every Seybold Capsule 00:00: twice - 00 daily. Externa l Pantoprazol Yes 40mg Take 1 Humaira ey e Sodium 40 8-16 tablet (40 Se ybold MG oral 13:31: mg total) - Tablet 02 by mouth Externa Delayed daily l Response Cyanocobala Yes Take by Cyril sey min 8-16 mouth Seybold (Vitamin 13:31: - B-12) 100 02 Externa MCG oral l Tablet Aspirin 81 Yes 81mg Take 1 Kelse y MG oral 8-16 tablet (81 Seybol d Chewable 13:31: mg total) - Tablet 02 by mouth Externa daily l Pantoprazol Yes 40mg Take 1 Humaira ey e Sodium 40 8-15 tablet (40 Se ybold MG oral 11:45: mg total) - Tablet 18 by mouth Externa Delayed daily l Response Cyanocobala 2023-0 Yes Take by Cyril sey min 8-15 mouth Seybold (Vitamin 11:45: - B-12) 100 18 Externa MCG oral l Tablet Aspirin 81 2022-0 Yes 81mg Take 1 Kelse y MG oral 8-15 tablet (81 Seybol d Chewable 11:45: mg total) - Tablet 18 by mouth Externa daily l Pregabalin 2022-0 Yes 200mg Take 1 Humaira ey 200 MG oral 8-15 capsule Seybo ld Capsule 00:00: (200 mg - 00 total) by Externa mouth 2 l times daily Rizatriptan 2022-0 Yes 10mg Take 1 Humaira ey Benzoate 10 8-15 tablet (10 Se ybold MG oral 00:00: mg total) - TABLET 00 by mouth Externa DISPERSIBLE as needed l May repeat in 2 hours if needed Pregabalin 2022-0 Yes 200mg Take 1 Humaira ey 200 MG oral 8-15 capsule Seybo ld Capsule 00:00: (200 mg - 00 total) by Externa mouth 2 l times daily Rizatriptan 2022-0 Yes 10mg Take 1 Humaira ey Benzoate 10 8-15 tablet (10 Se ybold MG oral 00:00: mg total) - TABLET 00 by mouth Externa DISPERSIBLE as needed l May repeat in 2 hours if needed Pregabalin 2022-0 Yes 200mg Take 1 Humaira ey 200 MG oral 8-15 capsule Seybo ld Capsule 00:00: (200 mg - 00 total) by Externa mouth 2 l times daily Rizatriptan 2022-0 Yes 10mg Take 1 Humaira ey Benzoate 10 8-15 tablet (10 Se ybold MG oral 00:00: mg total) - TABLET 00 by mouth Externa DISPERSIBLE as needed l May repeat in 2 hours if needed Metformin 2022-0 Yes [id number] 500mg Take 1 K elsey HCl 500 MG 8-01 tablet Seybold oral Tablet 00:00: (500 mg - 00 total) by Externa mouth l daily Metformin 3-0 Yes [id number] 500mg Take 1 K elsey HCl 500 MG 8-01 tablet Seybold oral Tablet 00:00: (500 mg - 00 total) by Externa mouth l daily Metformin 2022-0 Yes [id number] 500mg Take 1 K elsey HCl 500 MG 8-01 tablet Seybold oral Tablet 00:00: (500 mg - 00 total) by Externa mouth l daily Lisinopril Yes [id number] 10mg Take 1 K elsey 10 MG oral 7-20 tablet (10 Sey bold Tablet 00:00: mg total) - 00 by mouth Externa daily l Lisinopril Yes [id number] 10mg Take 1 K elsey 10 MG oral 7-20 tablet (10 Sey bold Tablet 00:00: mg total) - 00 by mouth Externa daily l Lisinopril Yes [id number] 10mg Take 1 K elsey 10 MG oral 7-20 tablet (10 Sey bold Tablet 00:00: mg total) - 00 by mouth Externa daily l Gabapentin 2022- No 300mg Take 1 Cyril sey 300 MG oral 04-10 capsule Seyb old Capsule 11:55: 00:00 (300 mg - 41 :00 total) by Externa mouth 4 l pill every am, 3 pills every noontime and 4 pills every pm Ondansetron 2022- No 4mg [id number] Take 1 Melinda HCl 4 MG 04-10 [id number] tablet (4 Seybold oral Tablet 11:51: 00:00 3D mg total) - 15 :00 by mouth Externa every 8 l hours as needed Pravastatin 2022- No 10mg Take 1 Cyril sey Sodium 10 04-10 tablet (10 Sey bold MG oral 11:50: 00:00 mg total) - Tablet 49 :00 by mouth Externa daily l Pantoprazol Yes 40mg Take 1 Humaira ey e Sodium 40 - tablet (40 Se ybold MG oral 11:39: mg total) - Tablet 26 by mouth Externa Delayed daily l Response Cyanocobala Yes Take by Cyril sey min - mouth Seybold (Vitamin 11:39: - B-12) 100 26 Externa MCG oral l Tablet Aspirin 81 Yes 81mg Take 1 Kelse y MG oral -19 tablet (81 Seybol d Chewable 11:39: mg total) - Tablet 26 by mouth Externa daily l Topiramate 2023-0 Yes [id number] 25mg Take 1 Melinda 25 MG oral 7-19 tablet (25 Sey bold Tablet 00:00: mg total) - 00 by mouth 2 Externa times l daily Baclofen 10 2022-0 Yes [id number] 10mg Take 1 Melinda MG oral 7-19 tablet (10 Seybol d Tablet 00:00: mg total) - 00 by mouth 2 Externa times l daily Gabapentin 2022-0 Yes [id number] 1200mg Take 3 Melinda 400 MG oral 7-19 capsules Seyb old Capsule 00:00: (1,200 mg - 00 total) by Externa mouth l every morning Gabapentin 2022-0 Yes [id number] Every noon Melinda 300 MG oral 7-19 and every Sey bold Capsule 00:00: pm - 00 Externa l Amitriptyli 2022-0 Yes [id number] 100mg Take 4 Melinda ne HCl 25 7-19 tablets Seybold MG oral 00:00: (100 mg - Tablet 00 total) by Externa mouth l nightly Atorvastati 2022-0 Yes [id number] 80mg Take 1 Melinda n Calcium 7-19 3 tablet (80 Seyb old (Lipitor) 00:00: mg total) - 80 MG oral 00 by mouth Exter na Tablet nightly l linaCLOtide 2022-0 Yes [id number] 145ug Take 1 Melinda (Linzess) 7-19 capsule Seybold 145 MCG 00:00: (145 mcg - oral 00 total) by Externa Capsule mouth l daily Atorvastati 2022-0 Yes [id number] 80mg Take 1 Melinda n Calcium 7-19 3 tablet (80 Seyb old (Lipitor) 00:00: mg total) - 80 MG oral 00 by mouth Exter na Tablet nightly l linaCLOtide 3-0 Yes [id number] 145ug Take 1 Melinda (Linzess) 7-19 capsule Seybold 145 MCG 00:00: (145 mcg - oral 00 total) by Externa Capsule mouth l daily Atorvastati 2022-0 Yes [id number] 80mg Take 1 Melinda n Calcium 7-19 3 tablet (80 Seyb old (Lipitor) 00:00: mg total) - 80 MG oral 00 by mouth Exter na Tablet nightly l linaCLOtide 2022-0 Yes [id number] 145ug Take 1 Melinda (Linzess) 7-19 capsule Seybold 145 MCG 00:00: (145 mcg - oral 00 total) by Externa Capsule mouth l daily Atorvastati 2022-0 Yes [id number] 80mg Take 1 Melinda n Calcium - 3 tablet (80 Seyb old (Lipitor) 00:00: mg total) - 80 MG oral 00 by mouth Exter na Tablet nightly l linaCLOtide 2022-0 Yes [id number] 145ug Take 1 Melinda (Linzess) -19 capsule Seybold 145 MCG 00:00: (145 mcg - oral 00 total) by Externa Capsule mouth l daily Topiramate 2022-0 2023- No [id number] 25mg Take 1 Melinda 25 MG oral 04-10-15 tablet (25 Se ybold Tablet 00:00: 00:00 mg total) - 00 :00 by mouth 2 Externa times l daily Baclofen 10 2022-0 202- No [id number] 10mg Take 1 Melinda MG oral 04-10-15 tablet (10 Seybo ld Tablet 00:00: 00:00 mg total) - 00 :00 by mouth 2 Externa times l daily Gabapentin 2022-0 202- No [id number] 1200mg Take 3 Melinda 400 MG oral -11 05-15 capsules Sey bold Capsule 00:00: 00:00 (1,200 mg - 00 :00 total) by Externa mouth l every morning Gabapentin 2022-0 202- No [id number] Every noon Melinda 300 MG oral 04-10-15 and every Se ybold Capsule 00:00: 00:00 pm - 00 :00 Externa l Amitriptyli 2022-0 2022- No [id number] 100mg Take 4 Melinda ne HCl 25 -11 05-15 tablets Seybol d MG oral 00:00: 00:00 (100 mg - Tablet 00 :00 total) by Externa mouth l nightly Gabapentin 2022-0 Yes 300mg Take 1 [facility] ey 300 MG oral -13 capsule Seybo ld Capsule 08:17: (300 mg - 47 total) by Externa mouth 4 l pill every am, 3 pills every noontime and 4 pills every pm Pantoprazol 2023-0 Yes 40mg Take 1 [facility] ey e Sodium 40 7-13 tablet (40 Se ybold MG oral 08:17: mg total) - Tablet 47 by mouth Externa Delayed daily l Response Pravastatin 0 Yes 10mg Take 1 [facility] ey Sodium 10 7-13 tablet (10 Seyb old MG oral 08:17: mg total) - Tablet 47 by mouth Externa daily l Ondansetron 2022-0 Yes 4mg [id number] Take 1 Melinda HCl 4 MG 7-13 [id number] tablet (4 Seybold oral Tablet 08:17: 3D mg total) - 47 by mouth Externa every 8 l hours as needed Cyanocobala 0 Yes Take by Cyril sey min 7-13 mouth Seybold (Vitamin 08:17: - B-12) 100 47 Externa MCG oral l Tablet Aspirin 81 0 Yes 81mg Take 1 Kelse y MG oral 7-13 tablet (81 Seybol d Chewable 08:17: mg total) - Tablet 47 by mouth Externa daily l predniSONE 2022-0 Yes 50mg Take 1 Kelse y (DELTASONE) 7-13 tablet (50 Se ybold 50 MG oral 00:00: mg total) - tablet 00 by mouth Externa daily l predniSONE 2022-0 Yes Take one Cyril sey (DELTASONE) 7-13 tablet by Sey bold 50 MG oral 00:00: mouth 13 - tablet 00 hours, 7 Externa hours, and l 1 hour prior to the scheduled procedure. DiphenhydrA 0 Yes 1 tablet 1 Melinda MINE 7-13 hour prior Seybold (BENADRYL) 00:00: to MRI - 50 MG oral 00 Externa tablet l predniSONE 2022-0 2022- No Take one Ke lsey (DELTASONE) 7-13 08-15 tablet by Se ybold 50 MG oral 00:00: 00:00 mouth 13 - tablet 00 :00 hours, 7 Externa hours, and l 1 hour prior to the scheduled procedure. DiphenhydrA 2022-0 202- No 1 tablet 1 Melinda MINE 7-13 08-15 hour prior Seybold (BENADRYL) 00:00: 00:00 to MRI - 50 MG oral 00 :00 Externa tablet l Alprazolam 2022-0 Yes [id number] .25mg QD Take 1 Melinda 0.25 MG 6-21 tablet Seybold oral Tablet 00:00: (0.25 mg - 00 total) by Externa mouth l nightly as needed for sleep or anxiety Alprazolam Yes [id number] .25mg QD Take 1 Melinda 0.25 MG 6-21 tablet Seybold oral Tablet 00:00: (0.25 mg - 00 total) by Externa mouth l nightly as needed for sleep or anxiety Alprazolam 202- No [id number] .25mg QD Take 1 Melinda 0.25 MG 6-21 07-19 tablet Seybold oral Tablet 00:00: 00:00 (0.25 mg - 00 :00 total) by Externa mouth l nightly as needed for sleep or anxiety Amitriptyli Yes TAKE 4 [facility] ey ne HCl 25 6-12 TABLETS BY Seyb old MG oral 00:00: MOUTH - Tablet 00 EVERY DAY Externa AT BEDTIME l FOR 30 DAYS Lidocaine 5 Yes APPLY ONE K elsey % apply 6-12 PATCH Seybold externally 00:00: TOPICALLY - Patch 00 TO CLEAN, Externa DRY SKIN. l LEAVE ON FOR 12 HOURS THEN REMOVE. MUST WAIT AT LEAST 12 HOURS BEFORE APPLYING PATCH(ES) AGAIN. Lisinopril Yes 10mg Take 2 Kelse y 5 MG oral 6-12 tablets Seybold Tablet 00:00: (10 mg - 00 total) by Externa mouth l daily Amitriptyli Yes TAKE 4 [facility] ey ne HCl 25 6-12 TABLETS BY Seyb old MG oral 00:00: MOUTH - Tablet 00 EVERY DAY Externa AT BEDTIME l FOR 30 DAYS Lidocaine 5 Yes APPLY ONE K elsey % apply 6-12 PATCH Seybold externally 00:00: TOPICALLY - Patch 00 TO CLEAN, Externa DRY SKIN. l LEAVE ON FOR 12 HOURS THEN REMOVE. MUST WAIT AT LEAST 12 HOURS BEFORE APPLYING PATCH(ES) AGAIN. Lisinopril Yes 10mg Take 2 Kelse y 5 MG oral 6-12 tablets Seybold Tablet 00:00: (10 mg - 00 total) by Externa mouth l daily Lidocaine 5 Yes APPLY ONE K elsey % apply 6-12 PATCH Seybold externally 00:00: TOPICALLY - Patch 00 TO CLEAN, Externa DRY SKIN. l LEAVE ON FOR 12 HOURS THEN REMOVE. MUST WAIT AT LEAST 12 HOURS BEFORE APPLYING PATCH(ES) AGAIN. Lidocaine 5 Yes APPLY ONE K elsey % apply 6-12 PATCH Seybold externally 00:00: TOPICALLY - Patch 00 TO CLEAN, Externa DRY SKIN. l LEAVE ON FOR 12 HOURS THEN REMOVE. MUST WAIT AT LEAST 12 HOURS BEFORE APPLYING PATCH(ES) AGAIN. Lidocaine 5 Yes APPLY ONE K elsey % apply 6-12 PATCH Seybold externally 00:00: TOPICALLY - Patch 00 TO CLEAN, Externa DRY SKIN. l LEAVE ON FOR 12 HOURS THEN REMOVE. MUST WAIT AT LEAST 12 HOURS BEFORE APPLYING PATCH(ES) AGAIN. Lidocaine 5 Yes APPLY ONE K elsey % apply 6-12 PATCH Seybold externally 00:00: TOPICALLY - Patch 00 TO CLEAN, Externa DRY SKIN. l LEAVE ON FOR 12 HOURS THEN REMOVE. MUST WAIT AT LEAST 12 HOURS BEFORE APPLYING PATCH(ES) AGAIN. Amitriptyli 2022- No TAKE 4 Cyril sey ne HCl 25 6- 07-19 TABLETS BY Sey bold MG oral 00:00: 00:00 MOUTH - Tablet 00 :00 EVERY DAY Externa AT BEDTIME l FOR 30 DAYS Lisinopril 2022- No 10mg Take 2 [facility] ey 5 MG oral 03-04 07-19 tablets Seybol d Tablet 00:00: 00:00 (10 mg - 00 :00 total) by Externa mouth l daily Gabapentin Yes 300mg Take 1 [facility] ey 300 MG oral 5-26 capsule Seybo ld Capsule 10:52: (300 mg - 46 total) by Externa mouth 4 l pill every am, 3 pills every noontime and 4 pills every pm Pantoprazol Yes 40mg Take 1 [facility] ey e Sodium 40 5-26 tablet (40 Se ybold MG oral 10:52: mg total) - Tablet 46 by mouth Externa Delayed daily l Response Pravastatin Yes 10mg Take 1 [facility] ey Sodium 10 5-26 tablet (10 Seyb old MG oral 10:52: mg total) - Tablet 46 by mouth Externa daily l Ondansetron Yes 4mg [id number] Take 1 Melinda HCl 4 MG 5-26 [id number] tablet (4 Seybold oral Tablet 10:52: 3D mg total) - 46 by mouth Externa every 8 l hours as needed Cyanocobala Yes Take by Cyril sey min 5-26 mouth Seybold (Vitamin 10:52: - B-12) 100 46 Externa MCG oral l Tablet Aspirin 81 Yes 81mg Take 1 Kelse y MG oral 5-26 tablet (81 Seybol d Chewable 10:52: mg total) - Tablet 46 by mouth Externa daily l Metformin Yes [id number] 500mg Take 1 K elsey HCl 500 MG 5-25 tablet Seybold oral Tablet 00:00: (500 mg - 00 total) by Externa mouth l daily Metformin Yes [id number] 500mg Take 1 K elsey HCl 500 MG 5-25 tablet Seybold oral Tablet 00:00: (500 mg - 00 total) by Externa mouth l daily Losartan Yes 25mg Take 1 Melinda Potassium 5-25 tablet (25 Seyb old 25 MG oral 00:00: mg total) - Tablet 00 by mouth Externa daily l Metformin Yes [id number] 500mg Take 1 K elsey HCl 500 MG 5-25 tablet Seybold oral Tablet 00:00: (500 mg - 00 total) by Externa mouth l daily Losartan 2022- No 25mg Take 1 Melinda Potassium 5-25 07-19 tablet (25 Sey bold 25 MG oral 00:00: 00:00 mg total) - Tablet 00 :00 by mouth Externa daily l Losartan 2022- No 25mg Take 1 Melinda Potassium 5-25 06-25 tablet (25 Sey bold 25 MG oral 00:00: 04:59 mg total) - Tablet 00 :00 by mouth Externa daily l aspirin 81 0 2022- No 81mg QD Take [address] [facility] MG chewable 5-25 06-24 tablet (81 L ukes tablet 00:00: 23:59 mg total) Medic al 00 :00 by mouth Center in the morning for 30 days. losartan 2022- No 25mg QD Take [address] [facility] (COZAAR) 25 5-25 06-24 tablet (25 L ukes MG tablet 00:00: 23:59 mg total) Me dical 00 :00 by mouth Center in the morning for 30 days. aspirin 81 2022- No 81mg QD Take [address] [facility] MG chewable 5-25 06-24 tablet (81 L ukes tablet 00:00: 23:59 mg total) Medic al 00 :00 by mouth Center in the morning for 30 days. losartan 2022- No 25mg QD Take [address] [facility] (COZAAR) 25 5-25 06-24 tablet (25 L ukes MG tablet 00:00: 23:59 mg total) Me dical 00 :00 by mouth Center in the morning for 30 days. aspirin 81 2022- No 81mg QD Take [address] [facility] MG chewable 5-25 06-24 tablet (81 L ukes tablet 00:00: 23:59 mg total) Medic al 00 :00 by mouth Center in the morning for 30 days. losartan 2022- No 25mg QD Take [address] [facility] (COZAAR) 25 5-25 06-24 tablet (25 L ukes MG tablet 00:00: 23:59 mg total) Me dical 00 :00 by mouth Center in the morning for 30 days. aspirin 81 2022- No 81mg QD Take [address] [facility] MG chewable 5-25 06-24 tablet (81 L ukes tablet 00:00: 23:59 mg total) Medic al 00 :00 by mouth Center in the morning for 30 days. losartan 2022- No 25mg QD Take [address] [facility] (COZAAR) 25 5-25 06-24 tablet (25 L ukes MG tablet 00:00: 23:59 mg total) Me dical 00 :00 by mouth Center in the morning for 30 days. atorvastati 2022-2022- No 80mg QD Take [address] [facility] n (LIPITOR) 5-24 06-23 tablet (80 L ukes 80 MG 00:00: 23:59 mg total) Medica l tablet 00 :00 by mouth Center nightly for 30 days. atorvastati 2022-2022- No 80mg QD Take [address] [facility] n (LIPITOR) 5-24 06-23 tablet (80 L ukes 80 MG 00:00: 23:59 mg total) Medica l tablet 00 :00 by mouth Center nightly for 30 days. atorvastati 2022-0 2022- No 80mg QD Take [address] [facility] n (LIPITOR) 02-13-23 tablet (80 L ukes 80 MG 00:00: 23:59 mg total) Medica l tablet 00 :00 by mouth Center nightly for 30 days. atorvastati 2022-0 2022- No 80mg QD Take [address] [facility] n (LIPITOR) 02-13- tablet (80 L ukes 80 MG 00:00: 23:59 mg total) Medica l tablet 00 :00 by mouth Center nightly for 30 days. Lisinopril 2022-0 Yes [id number] 10mg Take 1 K elsey 10 MG oral 5-15 tablet (10 Sey bold Tablet 00:00: mg total) - 00 by mouth Externa daily l Lisinopril 2022-0 Yes [id number] 10mg Take 1 K elsey 10 MG oral 5-15 tablet (10 Sey bold Tablet 00:00: mg total) - 00 by mouth Externa daily l Lisinopril 2022-0 Yes [id number] 10mg Take 1 K elsey 10 MG oral 5-15 tablet (10 Sey bold Tablet 00:00: mg total) - 00 by mouth Externa daily l lamoTRIgine 2023- No [id number] 100mg Q.5D Take 1 [facility] (LaMICtal) 01-24- tablet [facility] 100 MG 00:00: 04:59 (100 mg tablet 00 :00 total) by mouth in the morning and 1 tablet (100 mg total) in the evening. lamoTRIgine 2022-0 2023- No 100mg Q.5D Take [address] [facility] [address] [facility] ([facility]) 01-24 05-03 tablet [facility] MG 00:00: 23:59 (100 mg Medical tablet 00 :00 total) by Center mouth in the morning and 1 tablet (100 mg total) before bedtime. lamoTRIgine 2022-0 2022- No 100mg Q.5D Take [address] [facility] [address] [facility] (LaMICtal) 01-24-24 tablet [facility] 100 MG 00:00: 00:00 (100 mg Medical tablet 00 :00 total) by Center mouth in the morning and 1 tablet (100 mg total) before bedtime. lamoTRIgine 2023-0 2023- No 100mg Q.5D Take [address] [facility] [address] [facility] (LaMICtal) 5-04 05-24 tablet [facility] 100 MG 00:00: 00:00 (100 mg Medical tablet 00 :00 total) by Center mouth in the morning and 1 tablet (100 mg total) before bedtime. lamoTRIgine 2023-0 2023- No 100mg Q.5D Take [address] [facility] [address] [facility] (LaMICtal) 5-04 05-24 tablet [facility] 100 MG 00:00: 00:00 (100 mg Medical tablet 00 :00 total) by Center mouth in the morning and 1 tablet (100 mg total) before bedtime. lamoTRIgine 2023-0 2023- No 100mg Q.5D Take [address] [facility] [address] [facility] (LaMICtal) 5- 05-24 tablet [facility] 100 MG 00:00: 00:00 (100 mg Medical tablet 00 :00 total) by Center mouth in the morning and 1 tablet (100 mg total) before bedtime. amitriptyli 2022-0 3- No [id number] 50mg Take 1 [facility] (Elavil) 5-03 10-31 tablet (50 H [facility] 50 MG 00:00: 04:59 mg total) tablet 00 :00 by mouth every night. amitriptyli 3-0 2023- No 50mg QD Take [address] [facility] ne (ELAVIL) 5-03 10-30 tablet (50 L ukes 50 MG 00:00: 23:59 mg total) Medica l tablet 00 :00 by mouth Center nightly. amitriptyli 2023-0 2023- No 50mg QD Take [address] [facility] ne (ELAVIL) 5-03 10-30 tablet (50 L ukes 50 MG 00:00: 23:59 mg total) Medica l tablet 00 :00 by mouth Center nightly. amitriptyli 2023-0 2023- No 50mg QD Take [address] [facility] ne (ELAVIL) 5-03 10-30 tablet (50 L ukes 50 MG 00:00: 23:59 mg total) Medica l tablet 00 :00 by mouth Center nightly. amitriptyli 2023-0 2023- No 50mg QD Take [address] [facility] ne (ELAVIL) 5-03 10-30 tablet (50 L ukes 50 MG 00:00: 23:59 mg total) Medica l tablet 00 :00 by mouth Center nightly. amitriptyli 2022- No 50mg QD Take [address] [facility] ne (ELAVIL) 5-03 10-30 tablet (50 L ukes 50 MG 00:00: 23:59 mg total) Medica l tablet 00 :00 by mouth Center nightly. Baclofen 5 2022- No [id number] 1{tbl} Q.5D Take 1 [facility] MG tablet 01-23 05-04 [id number] tablet by [facility] th 00:00: 00:00 mouth in 00 :00 the morning and 1 tablet in the evening. amitriptyli 2022- No [id number] 25mg Take 1 [facility] ne (Elavil) - 05-03 tablet (25 H ealth 25 MG 00:00: 00:00 mg total) tablet 00 :00 by mouth every night. blood sugar 0 Yes [id number] [facility] to [facility] 4-13 test blood ity of (ONETOUCH 00:00: sugar 3 [place] ULTRA TEST) 00 times Medical strip daily Branch blood sugar 0 Yes [id number] Use to [facility] diagnostic 4-13 test blood ity of (ONETOUCH 00:00: sugar 3 [place] ULTRA TEST) 00 times Medical strip daily Branch blood sugar 2022-0 Yes [id number] Use to [facility] diagnostic 4-13 test blood ity of (ONETOUCH 00:00: sugar 3 [place] ULTRA TEST) 00 times Medical strip daily Branch blood sugar 2022-0 Yes [id number] Use to [facility] diagnostic 4-13 test blood ity of (ONETOUCH 00:00: sugar 3 [place] ULTRA TEST) 00 times Medical strip daily Branch blood sugar 2022-0 Yes [id number] Use to [facility] diagnostic 4-13 test blood ity of (ONETOUCH 00:00: sugar 3 [place] ULTRA TEST) 00 times Medical strip daily Branch blood sugar 2022-0 Yes [id number] Use to [facility] diagnostic 4-13 test blood ity of (ONETOUCH 00:00: sugar 3 [place] ULTRA TEST) 00 times Medical strip daily Branch blood sugar 2022-0 Yes [id number] Use to [facility] diagnostic 4-13 test blood ity of (ONETOUCH 00:00: sugar 3 [place] ULTRA TEST) 00 times Medical strip daily Branch blood sugar 2022-0 Yes [id number] Use to [facility] diagnostic 4-13 test blood ity of (ONETOUCH 00:00: sugar 3 [place] ULTRA TEST) 00 times Medical strip daily Branch blood sugar 2022-0 Yes [id number] Use to [facility] diagnostic 4-13 test blood ity of (ONETOUCH 00:00: sugar 3 [place] ULTRA TEST) 00 times Medical strip daily Branch blood sugar 2022-0 Yes [id number] Use to [facility] diagnostic 4-13 test blood ity of (ONETOUCH 00:00: sugar 3 [place] ULTRA TEST) 00 times Medical strip daily Branch blood sugar 2022-0 Yes [id number] Use to [facility] diagnostic 4-13 test blood ity of (ONETOUCH 00:00: sugar 3 [place] ULTRA TEST) 00 times Medical strip daily Branch baclofen 0 Yes 10mg Q.5D Take 10 mg [facility] (Lioresal) 4-11 by mouth Healt h 10 MG 00:00: in the tablet 00 morning and 10 mg in the evening. Cholecalcif 2022-0 2022- No Take by Jose flores deb 4-10 04-10 mouth Seybold (Vitamin 09:57: 00:00 - D3) 1.25 MG 41 :00 Externa ([id number] [facility]) l oral Capsule Gabapentin 2022-0 Yes 300mg Take 1 [facility] ey 300 MG oral 4-10 capsule Seybo ld Capsule 09:38: (300 mg - 44 total) by Externa mouth 4 l pill every am, 3 pills every noontime and 4 pills every pm Lisinopril 2022-0 Yes 10mg Take 1 Kelse y 10 MG oral 4-10 tablet (10 Sey bold Tablet 09:38: mg total) - 44 by mouth Externa daily l Pantoprazol 2022-0 Yes 40mg Take 1 [facility] ey e Sodium 40 4-10 tablet (40 Se ybold MG oral 09:38: mg total) - Tablet 44 by mouth Externa Delayed daily l Response Pravastatin 2022-0 Yes 10mg Take 1 [facility] ey Sodium 10 4-10 tablet (10 Seyb old MG oral 09:38: mg total) - Tablet 44 by mouth Externa daily l Ondansetron 2022-0 Yes 4mg Q.[id number] Take 1 Melinda HCl 4 MG 4-10 [id number] tablet (4 Seybold oral Tablet 09:38: 3D mg total) - 44 by mouth Externa every 8 l hours as needed Cyanocobala 2022-0 Yes Take by Cyril sey min 4-10 mouth Seybold (Vitamin 09:38: - B-12) 100 44 Externa MCG oral l Tablet Amitriptyli 2022-0 2022- No 25mg Take 25 mg Melinda ne HCl 25 4-10 04-10 by mouth Seybo ld MG oral 09:36: 00:00 nightly - Tablet 44 :00 Externa l Topiramate 2022-0 Yes [id number] 50mg Take 1 Melinda 50 MG oral 4-10 tablet (50 Sey bold Tablet 00:00: mg total) - 00 by mouth 2 Externa times l daily linaCLOtide 2022-0 Yes [id number] 145ug Take 1 Melinda (Linzess) 4-10 capsule Seybold 145 MCG 00:00: (145 mcg - oral 00 total) by Externa Capsule mouth l daily Cholecalcif 2022-0 Yes [id number] 1{capsu Take 1 Melinda deb 4-10 le} capsule by Seybold (Vitamin 00:00: mouth once - D3) 1.25 MG 00 a week 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 ([id number] [facility]) l oral Capsule Topiramate 2022-0 Yes [id number] 50mg Take 1 Melinda 50 MG oral 4-10 tablet (50 Sey bold Tablet 00:00: mg total) - 00 by mouth 2 Externa times l daily linaCLOtide 2022-0 Yes [id number] 145ug Take 1 Melinda (Linzess) 4-10 capsule Seybold 145 MCG 00:00: (145 mcg - oral 00 total) by Externa Capsule mouth l daily Cholecalcif 2022-0 Yes [id number] 1{capsu Take 1 Melinda deb 4-10 le} capsule by Seybold (Vitamin 00:00: mouth once - D3) 1.25 MG 00 a week 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 ([id number] [facility]) l oral Capsule Topiramate 2022-0 Yes [id number] 50mg Take 1 Melinda 50 MG oral 4-10 tablet (50 Sey bold Tablet 00:00: mg total) - 00 by mouth 2 Externa times l daily linaCLOtide 2023-0 Yes [id number] 145ug Take 1 Melinda (Linzess) 4-10 capsule Seybold 145 MCG 00:00: (145 mcg - oral 00 total) by Externa Capsule mouth l daily Cholecalcif 2023-0 Yes [id number] 1{capsu Take 1 Melinda deb 4-10 le} capsule by Seybold (Vitamin 00:00: mouth once - D3) 1.25 MG 00 a week 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 ([id number] [facility]) l oral Capsule Cholecalcif 2023-0 Yes [id number] 1{capsu Take 1 Melinda deb 4-10 le} capsule by Seybold (Vitamin 00:00: mouth once - D3) 1.25 MG 00 a week 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 ([id number] [facility]) l oral Capsule Cholecalcif 2022-0 Yes [id number] 1{capsu Take 1 Melinda deb 4-10 le} capsule by Seybold (Vitamin 00:00: mouth once - D3) 1.25 MG 00 a week 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 ([id number] [facility]) l oral Capsule Cholecalcif 2022-0 Yes [id number] 1{capsu Take 1 Melinda deb 4-10 le} capsule by Seybold (Vitamin 00:00: mouth once - D3) 1.25 MG 00 a week 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 ([id number] [facility]) l oral Capsule Cholecalcif 3-0 Yes [id number] 1{capsu Take 1 Melinda deb 4-10 le} capsule by Seybold (Vitamin 00:00: mouth once - D3) 1.25 MG 00 a week 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 ([id number] [facility]) l oral Capsule Topiramate 3-0 2022- No [id number] 50mg Take 1 Melinda 50 MG oral 4-10 -19 tablet (50 Se ybold Tablet 00:00: 00:00 mg total) - 00 :00 by mouth 2 Externa times l daily linaCLOtide 2023-0 2022- No [id number] 145ug Take 1 Melinda (Linzess) 4-10 - capsule Seybol d 145 MCG 00:00: 00:00 (145 mcg - oral 00 :00 total) by Externa Capsule mouth l daily ONETOUCH 2022-0 Yes [id number] Use to [facility] ULTRA2 4-06 test blood ity of METER Misc 00:00[place] (TWICE Medical DAILY) Branch lancets 2022-0 Yes [id number] Use to [facility] (SAFETY 4-06 test blood ity of LANCETS) 28 00:00: sugar [place] gauge Misc 00 twice Medical daily Branch ONETOUCH 2022-0 Yes [id number] Use to Un yesi ULTRA2 4-06 test blood ity of METER Misc 00:00: [place] (TWICE Medical DAILY) Branch blood sugar 0 Yes [id number] Use to [facility] diagnostic 4-06 test blood ity of (ONETOUCH 00:00: sugar [place] ULTRA TEST) 00 twice Medical strip daily Branch lancets 0 Yes [id number] Use to [facility] (SAFETY 4-06 test blood ity of LANCETS) 28 00:00: sugar [place] gauge Misc 00 twice Medical daily Branch ONETOUCH 0 Yes [id number] Use to Un yesi ULTRA2 4-06 test blood ity of METER Misc 00:00: [place] (TWICE Medical DAILY) Branch lancets 2022-0 Yes [id number] Use to [facility] (SAFETY 4-06 test blood ity of LANCETS) 28 00:00: sugar [place] gauge Misc 00 twice Medical daily Branch ONETOUCH 2022-0 Yes [id number] Use to Un yesi ULTRA2 4-06 test blood ity of METER Misc 00:00: [place] (TWICE Medical DAILY) Branch lancets 2022-0 Yes [id number] Use to [facility] vers (SAFETY 4-06 test blood ity of LANCETS) 28 00:00: sugar [place] gauge Misc 00 twice Medical daily Branch ONETOUCH 2022-0 Yes [id number] Use to Un yesi ULTRA2 4-06 test blood ity of METER Misc 00:00: [place] (TWICE Medical DAILY) Branch lancets 2022-0 Yes [id number] Use to [facility] (SAFETY 4-06 test blood ity of LANCETS) 28 00:00: sugar [place] gauge Misc 00 twice Medical daily Branch ONETOUCH 0 Yes [id number] Use to Un yesi ULTRA2 4-06 test blood ity of METER Misc 00:00: glucose [place] 00 (TWICE Medical DAILY) Branch lancets 0 Yes [id number] Use to [facility] (SAFETY 4-06 test blood ity of LANCETS) 28 00:00: sugar [place] gauge Misc 00 twice Medical daily Branch ONETOUCH 2022-0 Yes [id number] Use to Un yesi ULTRA2 4-06 test blood ity of METER Misc 00:00: glucose [place] 00 (TWICE Medical DAILY) Branch lancets 2022-0 Yes [id number] Use to [facility] (SAFETY 4-06 test blood ity of LANCETS) 28 00:00: sugar [place] gauge Misc 00 twice Medical daily Branch ONETOUCH 0 Yes [id number] Use to Un yesi ULTRA2 4-06 test blood ity of METER Misc 00:00: glucose [place] 00 (TWICE Medical DAILY) Branch lancets 0 Yes [id number] Use to [facility] (SAFETY 4-06 test blood ity of LANCETS) 28 00:00: sugar [place] gauge Misc 00 twice Medical daily Branch ONETOUCH 2022-0 Yes [id number] Use to Un yesi ULTRA2 4-06 test blood ity of METER Misc 00:00: glucose [place] 00 (TWICE Medical DAILY) Branch lancets 2022-0 Yes [id number] Use to [facility] (SAFETY 4-06 test blood ity of LANCETS) 28 00:00: sugar [place] gauge Misc 00 twice Medical daily Branch ONETOUCH 2022-0 Yes [id number] Use to Un yesi ULTRA2 4-06 test blood ity of METER Misc 00:00: glucose [place] 00 (TWICE Medical DAILY) Branch lancets 2022-0 Yes [id number] Use to [facility] vers (SAFETY 4-06 test blood ity of LANCETS) 28 00:00: sugar [place] gauge Misc 00 twice Medical daily Branch ONETOUCH 2022-0 Yes [id number] Use to Un yesi ULTRA2 4-06 test blood ity of METER Misc 00:00: glucose [place] 00 (TWICE Medical DAILY) Branch lancets 2022-0 Yes [id number] Use to [facility] vers (SAFETY 4-06 test blood ity of LANCETS) 28 00:00: sugar [place] gauge Misc 00 twice Medical daily Branch ONETOUCH 2022-0 Yes [id number] Use to Un yesi ULTRA2 4-06 test blood ity of METER Misc 00:00: glucose [place] 00 (TWICE Medical DAILY) Branch lancets 2022-0 Yes [id number] Use to [facility] vers (SAFETY 4-06 test blood ity of LANCETS) 28 00:00: sugar [place] gauge Misc 00 twice Medical daily Branch ONETOUCH 2022-0 Yes [id number] Use to Un yesi ULTRA2 4-06 test blood ity of METER [place]isc 00:[place] (TWICE Medical DAILY) Branch lancets 2022-0 Yes [id number] [facility] to [facility] (SAFETY 4-06 test blood ity of LANCETS) 28 00:00: sugar [place] gauge Misc 00 twice Medical daily Branch OneTouch 2022-0 Yes Melinda Ultra in 4-06 [facility] vitro Strip 00:00: - 00 Externa l Safety 2023-0 Yes Melinda Lancets 28G 4-06 [facility] does not 00:00: - apply Misc 00 Externa l OneTouch 3-0 Yes Melinda Ultra in 4-06 [facility] vitro Strip 00:00: - 00 Externa l Safety 2023-0 Yes Melinda Lancets 28G 4-06 [facility] does not 00:00: - apply Misc 00 Externa l OneTouch 3-0 Yes Melinda Ultra in 4-06 [facility] vitro Strip 00:00: - 00 Externa l Safety 2023-0 Yes Melinda Lancets 28G 4-06 [facility] does not 00:00: - apply Misc 00 Externa l OneTouch 3-0 Yes Melinda Ultra in 4-06 [facility] vitro Strip 00:00: - 00 Externa l Safety 2023-0 Yes Melinda Lancets 28G 4-06 [facility] does not 00:00: - apply Misc 00 Externa l OneTouch 3-0 Yes Melinda Ultra in 4-06 [facility] vitro Strip 00:00: - 00 Externa l Safety 2023-0 Yes Melinda Lancets 28G 4-06 [facility] does not 00:00: - apply Misc 00 Externa l OneTouch 2023-0 Yes Melinda Ultra in 4-06 [facility] vitro Strip 00:00: - 00 Externa l Safety 0 Yes Melinda Lancets 28G 12-27 [facility] does not 00:00: - apply Misc 00 Externa l OneTouch 0 Yes Melinda Ultra in 12-27 [facility] vitro Strip 00:00: - 00 Externa l Safety 0 Yes Melinda Lancets 28G 12-27 [facility] does not 00:00: - apply Misc 00 Externa l blood sugar 0 2022- No [id number] Use to [facility] 12-27 test blood it y of (ONETOUCH 00:00: 00:00 sugar [place] ULTRA TEST) 00 :00 twice Medical strip daily Branch Gabapentin 0 Yes 300mg Take 300 Ke lsey 300 [...] 54 Externa l Ondansetron 2022-0 Yes 4mg [id number] Take 4 mg Melinda HCl 4 MG 3-27 [id number] by mouth S eybold oral Tablet 11:38: [...] 39 Externa l Ondansetron 2022-0 Yes 4mg Q.[id number] Take 4 mg Melinda HCl 4 MG 3-06 [id number] by mouth S eybold oral Tablet 10:08: [...] 34 Externa l Ondansetron 2022-0 Yes 4mg Q.[id number] Take 4 mg Melinda HCl 4 MG 2-23 [id number] by mouth S eybold oral Tablet 09:28: 3D every 8 - 34 hours as Externa needed l estradioL 3-0 Yes [id number] Insert 1 g [facility] (ESTRACE) 2-14 PV daily x ity of 0.01 % (0.1 00:00: 2 wks[place] mg/gram) 00 then twice Medic al vaginal weekly Branch cream estradioL Yes [id number] Insert 1 g [facility] (ESTRACE) 2-14 PV daily x ity of 0.01 % (0.1 00:00: 2 wks[place] mg/gram) 00 then twice Medic al vaginal weekly Branch cream estradioL Yes [id number] Insert 1 g [facility] (ESTRACE) 2-14 PV daily x ity of 0.01 % (0.1 00:00: 2 wks[place] mg/gram) 00 then twice Medic al vaginal weekly Branch cream estradioL Yes [id number] Insert 1 g [facility] (ESTRACE) 2-14 PV daily x ity of 0.01 % (0.1 00:00: 2 wks[place] mg/gram) 00 then twice Medic al vaginal weekly Branch cream estradioL Yes [id number] Insert 1 g [facility] (ESTRACE) 2-14 PV daily x ity of 0.01 % (0.1 00:00: 2 wks, [place] mg/gram) 00 then twice Medic al vaginal weekly Branch cream estradioL Yes [id number] Insert 1 g [facility] (ESTRACE) 2-14 PV daily x ity of 0.01 % (0.1 00:00: 2 wks, [place] mg/gram) 00 then twice Medic al vaginal weekly Branch cream estradioL Yes [id number] Insert 1 g [facility] (ESTRACE) 2-14 PV daily x ity of 0.01 % (0.1 00:00: 2 wks[place] mg/gram) 00 then twice Medic al vaginal weekly Branch cream estradioL Yes [id number] Insert 1 g [facility] (ESTRACE) 2-14 PV daily x ity of 0.01 % (0.1 00:00: 2 wks[place] mg/gram) 00 then twice Medic al vaginal weekly Branch cream estradioL Yes [id number] Insert 1 g [facility] (ESTRACE) 2-14 PV daily x ity of 0.01 % (0.1 00:00: 2 wks[place] mg/gram) 00 then twice Medic al vaginal weekly Branch cream estradioL Yes [id number] Insert 1 g [facility] (ESTRACE) 2-14 PV daily x ity of 0.01 % (0.1 00:00: 2 wks, [place] mg/gram) 00 then twice Medic al vaginal weekly Branch cream estradioL 0 Yes [id number] Insert 1 g [facility] (ESTRACE) 2-14 PV daily x ity of 0.01 % (0.1 00:00: 2 wks[place] mg/gram) 00 then twice Medic al vaginal weekly Branch cream estradioL 0 Yes [id number] Insert 1 g [facility] (ESTRACE) 2-14 PV daily x ity of 0.01 % (0.1 00:00: 2 wks[place] mg/gram[place] 00 then twice Medic al vaginal weekly Branch cream estradioL 0 Yes [id number] Insert 1 g [facility] (ESTRACE) 2-14 PV daily x ity of 0.01 % (0.1 00:00: 2 wks, [place] mg/gram) 00 then twice Medic al vaginal weekly Branch cream estradioL 0 Yes [id number] Insert 1 g [facility] (ESTRACE) 2-14 PV daily x ity of 0.01 % (0.1 00:00: 2 wks, [place] mg/gram) 00 then twice Medic al vaginal weekly Branch cream estradioL 0 Yes [id number] Insert 1 g [facility] (ESTRACE) 2-14 PV daily x ity of 0.01 % (0.1 00:00: 2 wks, [place] mg/gram[place] 00 then twice Medic al vaginal weekly Branch cream estradioL 2022-0 Yes [id number] Insert 1 g [facility] (ESTRACE) 2-14 PV daily x ity of 0.01 % (0.1 00:00: 2 wks, [place] mg/gram[place] 00 then twice Medic al vaginal weekly Branch cream estradioL 2022-0 Yes [id number] Insert 1 g [facility] (ESTRACE) 2-14 PV daily x ity of 0.01 % (0.1 00:00: 2 wks, [place] mg/gram[place] 00 then twice Medic al vaginal weekly Branch cream estradioL 0 Yes [id number] Insert 1 g [facility] (ESTRACE) 2-14 PV daily x ity of 0.01 % (0.1 00:00: 2 wks, [place] mg/gram[place] 00 then twice Medic al vaginal weekly Branch cream estradioL 2022-0 Yes [id number] Insert 1 g [facility] (ESTRACE) 2-14 PV daily x ity of 0.01 % (0.1 00:00: 2 wks[place] mg/gram[place] 00 then twice Medic al vaginal weekly Branch cream estradioL 2022-0 Yes [id number] Insert 1 g [facility] (ESTRACE) 2-14 PV daily x ity of 0.01 % (0.1 00:00: 2 wks, [place] mg/gram[place] 00 then twice Medic al vaginal weekly Branch cream estradioL 2022-0 Yes [id number] Insert 1 g [facility] (ESTRACE) 2-14 PV daily x ity of 0.01 % (0.1 00:00: 2 wks[place] mg/gram[place] 00 then twice Medic al vaginal weekly Branch cream ESTRADIOL 0 Yes Insert 1 g [place] VAGINAL 0.1 2-14 PV daily x Se ybold MG/GM 00:00: 2 wks, - vaginal 00 then twice 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 Cream weekly l ESTRADIOL 2022-0 Yes Insert 1 g [place] VAGINAL 0.1 2-14 PV daily x Se ybold MG/GM 00:00: 2 wks, - vaginal 00 then twice 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 Cream weekly l ESTRADIOL 2022-0 Yes Insert 1 g [place] VAGINAL 0.1 2-14 PV daily x Se ybold MG/GM 00:00: 2 wks, - vaginal 00 then twice 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 Cream weekly l ESTRADIOL 2022-0 2022- No Insert 1 g K elsey VAGINAL 0.1 2-14 07-19 PV daily x S eybold MG/GM 00:00: 00:00 2 wks, - vaginal 00 :00 then twice 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 Cream weekly l Topiramate 0 2022- No 25mg Take 25 mg Melinda 25 MG oral 10-29 by mouth 2 Se ybold Tablet 15:28: 00:00 times - 49 :00 daily Externa l Baclofen 5 2022-0 2022- No 5mg Take 5 mg K elsey MG oral 10-29 by mouth 2 Seybo ld Tablet 15:27: 00:00 times - 03 :00 daily Externa l Baclofen 10 2022-0 Yes [id number] 10mg Take 1 Melinda MG oral 2-06 tablet (10 Seybol d Tablet 00:00: mg total) - 00 by mouth 2 Externa times l daily Baclofen 10 2023-0 Yes [id number] 10mg Take 1 Melinda MG oral 2-06 tablet (10 Seybol d Tablet 00:00: mg total) - 00 by mouth 2 Externa times l daily Topiramate 2023-0 Yes [id number] 25mg Take 1 Melinda 25 MG oral 2-06 tablet (25 Sey bold Tablet 00:00: mg total) - 00 by mouth 2 Externa times l daily Baclofen 10 2023-0 Yes [id number] 10mg Take 1 Melinda MG oral 2-06 tablet (10 Seybol d Tablet 00:00: mg total) - 00 by mouth 2 Externa times l daily Topiramate 2023-0 Yes [id number] 25mg Take 1 Melinda 25 MG oral 2-06 tablet (25 Sey bold Tablet 00:00: mg total) - 00 by mouth 2 Externa times l daily Baclofen 10 2023-0 Yes [id number] 10mg Take 1 Melinda MG oral 2-06 tablet (10 Seybol d Tablet 00:00: mg total) - 00 by mouth 2 Externa times l daily baclofen 2023-0 Yes 10mg Q.5D Take [address] [facility] (LIORESAL) 2-06 tablet (10 Laxmi es 10 MG 00:00: mg total) Medical tablet 00 by mouth Center in the morning and 1 tablet (10 mg total) before bedtime. baclofen 2023-0 Yes 10mg Q.5D Take [address] [facility] (LIORESAL) 2-06 tablet (10 Laxmi es 10 MG 00:00: mg total) Medical tablet 00 by mouth Center in the morning and 1 tablet (10 mg total) before bedtime. baclofen 2023-0 Yes 10mg Q.5D Take [address] [facility] (LIORESAL) 2-06 tablet (10 Laxmi es 10 MG 00:00: mg total) Medical tablet 00 by mouth Center in the morning and 1 tablet (10 mg total) before bedtime. baclofen 2023-0 Yes 10mg Q.5D Take [address] [facility] (LIORESAL) 2-06 tablet (10 Laxmi es 10 MG 00:00: mg total) Medical tablet 00 by mouth Center in the morning and 1 tablet (10 mg total) before bedtime. baclofen 2023-0 Yes 10mg Q.5D Take [address] [facility] (LIORESAL) 2-06 tablet (10 Laxmi es 10 MG 00:00: mg total) Medical tablet 00 by mouth Center in the morning and 1 tablet (10 mg total) before bedtime. Topiramate 2022-0 Yes [id number] 25mg Take 1 Melinda 25 MG oral 2-06 tablet (25 Sey bold Tablet 00:00: mg total) - 00 by mouth 2 Externa times l daily Baclofen 10 2022-0 Yes [id number] 10mg Take 1 Melinda MG oral 2-06 tablet (10 Seybol d Tablet 00:00: mg total) - 00 by mouth 2 Externa times l daily Topiramate 2022-0 Yes [id number] 25mg Take 1 Melinda 25 MG oral 2-06 tablet (25 Sey bold Tablet 00:00: mg total) - 00 by mouth 2 Externa times l daily Baclofen 10 2022-0 Yes [id number] 10mg Take 1 Melinda MG oral 2-06 tablet (10 Seybol d Tablet 00:00: mg total) - 00 by mouth 2 Externa times l daily Baclofen 10 2022-0 Yes [id number] 10mg Take 1 Melinda MG oral 2-06 tablet (10 Seybol d Tablet 00:00: mg total) - 00 by mouth 2 Externa times l daily Baclofen 10 2022-0 2022- No [id number] 10mg Take 1 Melinda MG oral 2-06 07-19 tablet (10 Seybo ld Tablet 00:00: 00:00 mg total) - 00 :00 by mouth 2 Externa times l daily Topiramate 2022-0 2022- No [id number] 25mg Take 1 Melinda 25 MG oral 2-06 04-10 tablet (25 Se ybold Tablet 00:00: 00:00 mg total) - 00 :00 by mouth 2 Externa times l daily cholecalcif 2022-0 2022- No QD Take by AL deb 10-23 mouth 1 Health (Vitamin 10:03: 00:00 (one) time D-3) 10 MCG 51 :00 each day. (400 UNIT) capsule Amitriptyli 2022-0 4- No 25mg Take 1 C[place]il sey ne HCl 25 10-23 tablet (25 Sey bold MG oral 00:00: 05:59 mg total) - Tablet 00 :00 by mouth Externa nightly l amitriptyli 2022-0 2024- No [id number] 25mg Take 1 [facility] (Elavil) 10-23 tablet (25 H ealth 25 MG 00:00: 05:59 mg total) tablet 00 :00 by mouth every night. LISINOPRIL 2022-0 Yes [id number] TOME 1 U nivers 10 mg 1-24 TABLETA ity of tablet 00:00: POR BOCA CADA Medical DARIEL Branch LISINOPRIL 2022-0 Yes [id number] TOME 1 U nivers 10 mg 1-24 TABLETA ity of tablet 00:00: POR [facility] Medical DARIEL Branch LISINOPRIL 2022-0 Yes [id number] TOME 1 U nivers 10 mg 1-24 TABLETA ity of tablet 00:00: POR [facility] CAD[facility] Medical DARIEL Branch LISINOPRIL 2022-0 Yes [id number] TOME 1 U nivers 10 mg 1-24 TABLETA ity of tablet 00:00: POR [facility] Medical DARIEL Branch LISINOPRIL 2022-0 Yes [id number] TOME 1 U nivers 10 mg 1-24 TABLETA ity of tablet 00:00: POR [facility] CADA Medical DARIEL Branch LISINOPRIL 2022-0 Yes [id number] TOME 1 U nivers 10 mg 1-24 TABLETA ity of tablet 00:00: POR [facility] CADA Medical DARIEL Branch LISINOPRIL 2022-0 Yes [id number] TOME 1 U nivers 10 mg 1-24 TABLETA ity of tablet 00:00: POR [facility] Medical DARIEL Branch LISINOPRIL 2022-0 Yes [id number] TOME 1 U nivers 10 mg 1-24 TABLETA ity of tablet 00:00: POR [facility] Medical DARIEL Branch LISINOPRIL 2022-0 Yes [id number] TOME 1 U nivers 10 mg 1-24 TABLETA ity of tablet 00:00: POR [facility] CAD[facility] Medical DARIEL Branch LISINOPRIL 2022-0 Yes [id number] TOME 1 U nivers 10 mg 1-24 TABLETA ity of tablet 00:00: POR [facility] Medical DARIEL Branch LISINOPRIL 3-0 Yes [id number] TOME 1 U nivers 10 mg 1-24 TABLETA ity of tablet 00:00: POR [facility] CAD[facility] Medical DARIEL Branch LISINOPRIL 3-0 Yes [id number] TOME 1 U nivers 10 mg 1-24 TABLETA ity of tablet 00:00: POR [facility] CAD[facility] Medical DARIEL Branch LISINOPRIL 2022-0 Yes [id number] TOME 1 U nivers 10 mg 1-24 TABLETA ity of tablet 00:00: POR [facility] CAD[facility] Medical DARIEL Branch LISINOPRIL 2022-0 Yes [id number] TOME 1 U nivers 10 mg 1-24 TABLETA ity of tablet 00:00: POR [facility] CADA Medical DARIEL Branch LISINOPRIL 2022-0 Yes [id number] TOME 1 U nivers 10 mg 1-24 TABLETA ity of tablet 00:00: POR [facility] Medical DARIEL Branch LISINOPRIL 3-0 Yes [id number] TOME 1 U nivers 10 mg 1-24 TABLETA ity of tablet 00:00: POR [facility] CADA Medical DARIEL Branch LISINOPRIL 3-0 Yes [id number] TOME 1 U nivers 10 mg 1-24 TABLETA ity of tablet 00:00: POR [facility] CADA Medical DARIEL Branch LISINOPRIL 3-0 Yes [id number] TOME 1 U nivers 10 mg 1-24 TABLETA ity of tablet 00:00: POR [facility] CAD[facility] Medical DARIEL Branch LISINOPRIL 3-0 Yes [id number] TOME 1 U nivers 10 mg 1-24 TABLETA ity of tablet 00:00: POR [facility] CADA Medical DARIEL Branch LISINOPRIL 3-0 Yes [id number] TOME 1 U nivers 10 mg 1-24 TABLETA ity of tablet 00:00: POR [facility] CADA Medical DARIEL Branch LISINOPRIL 3-0 Yes [id number] TOME 1 U nivers 10 mg 1-24 TABLETA ity of tablet 00:00: POR [facility] Branch LISINOPRIL 2022-0 Yes [id number] TOME 1 U nivers 10 mg 1-24 TABLETA ity of tablet 00:00: POR [facility] Branch LISINOPRIL 2022-0 Yes [id number] TOME 1 U nivers 10 mg 1-24 TABLETA ity of tablet 00:00: POR [facility] Branch LISINOPRIL 2022-0 Yes [id number] TOME 1 U nivers 10 mg 1-24 TABLETA ity of tablet 00:00: POR [facility] Branch LISINOPRIL 2022-0 Yes [id number] TOME 1 U nivers 10 mg 1-24 TABLETA ity of tablet 00:00: POR [facility] LISINOPRIL 2022-0 Yes [id number] TOME 1 U nivers 10 mg 1-24 TABLETA ity of tablet 00:00: POR [facility] LISINOPRIL 2022-0 Yes [id number] TOME 1 U nivers 10 mg 1-24 TABLETA ity of tablet 00:00: POR [facility] gabapentin 2022-0 Yes [facility] (Neurontin) 1-17 Health 300 MG 00:00: capsule 00 gabapentin 2022-0 2022- No 300mg 300 mg. 4 [facility] (Neurontin) 1-17 05-04 Tablets in H ealth 300 MG 00:00: 00:00 the capsule 00 :00 morning and 3 tablets afternoon 3 tablets at night Ondansetron 2022-0 Yes 4mg Q.[id number] Take 4 mg Melinda HCl 4 MG 1-10 [id number] by mouth S eybold oral Tablet 14:24: 3D every 8 - 58 hours as Externa needed l Ondansetron 2022-0 Yes 4mg Q.[id number] Take 4 mg Melinda HCl 4 MG 1-10 [id number] by mouth S eybold oral Tablet 14:24: 3D every 8 - 58 hours as Externa needed l Pravastatin 2022-0 Yes 10mg Take 10 mg Melinda Sodium 10 1-10 by mouth Seybol d MG oral 14:24: daily - Tablet 48 Externa l Pravastatin Yes 10mg Take 10 mg Melinda Sodium 10 1-10 by mouth Seybol d MG oral 14:24: daily - Tablet 48 Externa l Baclofen 5 Yes 5mg Take 5 mg Ke lsey MG oral 1-10 by mouth 2 Seybol d Tablet 14:24: times - 38 daily Externa l Topiramate 0 Yes 25mg Take 25 mg K elsey 25 MG oral 1-10 by mouth 2 Sey bold Tablet 14:24: times - 17 daily Externa l Pantoprazol Yes 40mg Take 40 mg Melinda e Sodium 40 1-10 by mouth Seyb old MG oral 14:24: daily - Tablet 02 Externa Delayed l Response Pantoprazol Yes 40mg Take 40 mg Melinda [...] 1 00 (one) time each day. linaCLOtide 2021-09- No 145ug Take 1 Ke lsey (Linzess) 2-13 04-10 capsule Seybol d 145 MCG 00:00: 00:00 (145 mcg - oral 00 :00 total) by Externa Capsule mouth l daily Sumatriptan 2021-09 Yes 100mg Take 1 Cyril sey Succinate 1-16 tablet Seybold 100 MG oral 00:00: (100 mg - Tablet 00 total) by Externa mouth as l needed Sumatriptan 2021-09 Yes 100mg Take 1 [facility]il sey Succinate 1-16 tablet Seybold 100 MG oral 00:00: (100 mg - Tablet 00 total) by Externa mouth as l needed Sumatriptan 2021-09 Yes 100mg Take 1 [facility]il sey Succinate 1-16 tablet Seybold 100 MG oral 00:00: (100 mg - Tablet 00 total) by Externa mouth as l needed Sumatriptan 2021-09 Yes 100mg Take 1 [facility]il sey Succinate 1-16 tablet Seybold 100 MG oral 00:00: (100 mg - Tablet 00 total) by Externa mouth as l needed sumatriptan 2021-09 Yes [id number] 100mg Take 1 [facility] 100 mg 1-16 tablet by ity of tablet 00:00: mouth as [place] 00 needed for Medical Migraine. Branch lisinopriL 2021-09 Yes [id number] 10mg Take 1 U nivers 10 mg 1-16 tablet by ity of tablet 00:00: mouth [place] 00 daily. Medical Branch sumatriptan 2021-09 Yes [id number] 100mg Take 1 [facility] 100 mg 1-16 tablet by ity of tablet 00:00: mouth as [place] 00 needed for Medical Migraine. Branch lisinopriL 2021-09 Yes [id number] 10mg Take 1 U nivers 10 mg 1-16 tablet by ity of tablet 00:00: mouth [place] 00 daily. Medical Branch sumatriptan 2021-09 Yes [id number] 100mg Take 1 [facility] 100 mg 1-16 tablet by ity of tablet 00:00: mouth as [place] 00 needed for Medical Migraine. Branch lisinopriL 2021-09 Yes [id number] 10mg Take 1 U nivers 10 mg 1-16 tablet by ity of tablet 00:00: mouth [place] 00 daily. Medical Branch sumatriptan 2021-09 Yes [id number] 100mg Take 1 [facility] 100 mg 1-16 tablet by ity of tablet 00:00: mouth as [place] 00 needed for Medical Migraine. Branch lisinopriL 2021-09 Yes [id number] 10mg Take 1 U nivers 10 mg 1-16 tablet by ity of tablet 00:00: mouth [place] 00 daily. Medical Branch sumatriptan 2021-09 Yes [id number] 100mg Take 1 [facility] 100 mg 1-16 tablet by ity of tablet 00:00: mouth as [place] 00 needed for Medical Migraine. Branch lisinopriL 2021-09 Yes [id number] 10mg Take 1 U nivers 10 mg 1-16 tablet by ity of tablet 00:00: mouth [place] 00 daily. Medical Branch sumatriptan 2021-09 Yes [id number] 100mg Take 1 [facility] 100 mg 1-16 tablet by ity of tablet 00:00: mouth as [place] 00 needed for Medical Migraine. Branch lisinopriL 2021-09 Yes [id number] 10mg Take 1 U nivers 10 mg 1-16 tablet by ity of tablet 00:00: mouth [place] 00 daily. Medical Branch sumatriptan 2021-09 Yes [id number] 100mg Take 1 [facility] 100 mg 1-16 tablet by ity of tablet 00:00: mouth as [place] 00 needed for Medical Migraine. Branch lisinopriL 2021-09 Yes [id number] 10mg Take 1 U nivers 10 mg 1-16 tablet by ity of tablet 00:00: mouth [place] 00 daily. Medical Branch sumatriptan 2021-09 Yes [id number] 100mg Take 1 [facility] 100 mg 1-16 tablet by ity of tablet 00:00: mouth as [place] 00 needed for Medical Migraine. Branch lisinopriL 2021-09 Yes [id number] 10mg Take 1 U nivers 10 mg 1-16 tablet by ity of tablet 00:00: mouth [place] 00 daily. Medical Branch sumatriptan 2021-09 Yes [id number] 100mg Take 1 [facility] 100 mg 1-16 tablet by ity of tablet 00:00: mouth as [place] 00 needed for Medical Migraine. Branch lisinopriL 2021-09 Yes [id number] 10mg Take 1 U nivers 10 mg 1-16 tablet by ity of tablet 00:00: mouth [place] 00 daily. Medical Branch sumatriptan 2021-09 Yes [id number] 100mg Take 1 [facility] 100 mg 1-16 tablet by ity of tablet 00:00: mouth as [place] 00 needed for Medical Migraine. Branch lisinopriL 2021-09 Yes [id number] 10mg Take 1 U nivers 10 mg 1-16 tablet by ity of tablet 00:00: mouth [place] 00 daily. Medical Branch sumatriptan 2021-09 Yes [id number] 100mg Take 1 [facility] 100 mg 1-16 tablet by ity of tablet 00:00: mouth as [place] 00 needed for Medical Migraine. Branch lisinopriL 2021-09 Yes [id number] 10mg Take 1 U nivers 10 mg 1-16 tablet by ity of tablet 00:00: mouth [place] 00 daily. Medical Branch sumatriptan 2021-09 Yes [id number] 100mg Take 1 [facility] 100 mg 1-16 tablet by ity of tablet 00:00: mouth as [place] 00 needed for Medical Migraine. Branch lisinopriL 2021-09 Yes [id number] 10mg Take 1 U nivers 10 mg 1-16 tablet by ity of tablet 00:00: mouth [place] 00 daily. Medical Branch sumatriptan 2021-09 Yes [id number] 100mg Take 1 [facility] 100 mg 1-16 tablet by ity of tablet 00:00: mouth as [place] 00 needed for Medical Migraine. Branch lisinopriL 2021-09 Yes [id number] 10mg Take 1 U nivers 10 mg 1-16 tablet by ity of tablet 00:00: mouth [place] 00 daily. Medical Branch sumatriptan 2021-09 Yes [id number] 100mg Take 1 [facility] 100 mg 1-16 tablet by ity of tablet 00:00: mouth as [place] 00 needed for Medical Migraine. Branch lisinopriL 2021-09 Yes [id number] 10mg Take 1 U nivers 10 mg 1-16 tablet by ity of tablet 00:00: mouth [place] 00 daily. Medical Branch sumatriptan 2021-09 Yes [id number] 100mg Take 1 [facility] 100 mg 1-16 tablet by ity of tablet 00:00: mouth as [place] 00 needed for Medical Migraine. Branch lisinopriL 2021-09 Yes [id number] 10mg Take 1 U nivers 10 mg 1-16 tablet by ity of tablet 00:00: mouth [place] 00 daily. Medical Branch sumatriptan 2021-09 Yes [id number] 100mg Take 1 [facility] 100 mg 1-16 tablet by ity of tablet 00:00: mouth as [place] 00 needed for Medical Migraine. Branch lisinopriL 2021-09 Yes [id number] 10mg Take 1 U nivers 10 mg 1-16 tablet by ity of tablet 00:00: mouth [place] 00 daily. Medical Branch sumatriptan 2021-09 Yes [id number] 100mg Take 1 [facility] 100 mg 1-16 tablet by ity of tablet 00:00: mouth as [place] 00 needed for Medical Migraine. Branch lisinopriL 2021-09 Yes [id number] 10mg Take 1 U nivers 10 mg 1-16 tablet by ity of tablet 00:00: mouth [place] 00 daily. Medical Branch sumatriptan 2021-09 Yes [id number] 100mg Take 1 [facility] 100 mg 1-16 tablet by ity of tablet 00:00: mouth as [place] 00 needed for Medical Migraine. Branch lisinopriL 2021-09 Yes [id number] 10mg Take 1 U nivers 10 mg 1-16 tablet by ity of tablet 00:00: mouth [place] 00 daily. Medical Branch sumatriptan 2021-09 Yes [id number] 100mg Take 1 [facility] 100 mg 1-16 tablet by ity of tablet 00:00: mouth as [place] 00 needed for Medical Migraine. Branch lisinopriL 2021-09 Yes [id number] 10mg Take 1 U nivers 10 mg 1-16 tablet by ity of tablet 00:00: mouth [place] 00 daily. Medical Branch sumatriptan 2021-09 Yes [id number] 100mg Take 1 [facility] 100 mg 1-16 tablet by ity of tablet 00:00: mouth as [place] 00 needed for Medical Migraine. Branch lisinopriL 2021-09 Yes [id number] 10mg Take 1 U nivers 10 mg 1-16 tablet by ity of tablet 00:00: mouth [place] 00 daily. Medical Branch sumatriptan 2021-09 Yes [id number] 100mg Take 1 [facility] 100 mg 1-16 tablet by ity of tablet 00:00: mouth as [place] 00 needed for Medical Migraine. Branch lisinopriL 2021-09 Yes [id number] 10mg Take 1 U nivers 10 mg 1-16 tablet by ity of tablet 00:00: mouth [place] 00 daily. Medical Branch sumatriptan 2021-09 Yes [id number] 100mg Take 1 [facility] 100 mg 1-16 tablet by ity of tablet 00:00: mouth as [place] 00 needed for Medical Migraine. Branch lisinopriL 2021-09 Yes [id number] 10mg Take 1 U nivers 10 mg 1-16 tablet by ity of tablet 00:00: mouth [place] 00 daily. Medical Branch sumatriptan 2021-09 Yes [id number] 100mg Take 1 [facility] 100 mg 1-16 tablet by ity of tablet 00:00: mouth as [place] 00 needed for Medical Migraine. Branch lisinopriL 2021-09 Yes [id number] 10mg Take 1 U nivers 10 mg 1-16 tablet by ity of tablet 00:00: mouth [place] 00 daily. Medical Branch sumatriptan 2021-09 Yes [id number] 100mg Take 1 [facility] 100 mg 1-16 tablet by ity of tablet 00:00: mouth as [place] 00 needed for Medical Migraine. Branch sumatriptan 2021-09 Yes [id number] 100mg Take 1 [facility] 100 mg 1-16 tablet by ity of tablet 00:00: mouth as [place] 00 needed for Medical Migraine. Branch sumatriptan 2021-09 Yes [id number] 100mg Take 1 [facility] 100 mg 1-16 tablet by ity of tablet 00:00: mouth as [place] 00 needed for Medical Migraine. Branch sumatriptan 2021-09 Yes [id number] 100mg Take 1 [facility] 100 mg 1-16 tablet by ity of tablet 00:00: mouth as [place] 00 needed for Medical Migraine. Branch sumatriptan 2021-09 Yes [id number] 100mg Take 1 [facility] 100 mg 1-16 tablet by ity of tablet 00:00: mouth as [place] 00 needed for Medical Migraine. Branch sumatriptan 2021-09 Yes [id number] 100mg Take 1 [facility] 100 mg 1-16 tablet by ity of tablet 00:00: mouth as [place] 00 needed for Medical Migraine. Branch sumatriptan 2021-09 Yes [id number] 100mg Take 1 [facility] 100 mg 1-16 tablet by ity of tablet 00:00: mouth as [place] 00 needed for Medical Migraine. Branch sumatriptan 2021-09 Yes [id number] 100mg Take 1 [facility] 100 mg 1-16 tablet by ity of tablet 00:00: mouth as [place] 00 needed for Medical Migraine. Branch sumatriptan 2021-09 Yes [id number] 100mg Take 1 [facility] 100 mg 1-16 tablet by ity of tablet 00:00: mouth as [place] 00 needed for Medical Migraine. Branch sumatriptan 2021-09 Yes [id number] 100mg Take 1 [facility] 100 mg 1-16 tablet by ity of tablet 00:00: mouth as [place] 00 needed for Medical Migraine. Branch sumatriptan 2021-09 Yes [id number] 100mg Take 1 [facility] 100 mg 1-16 tablet by ity of tablet 00:00: mouth as [place] 00 needed for Medical Migraine. Branch sumatriptan 2021-09 Yes [id number] 100mg Take 1 [facility] 100 mg 1-16 tablet by ity of tablet 00:00: mouth as [place] 00 needed for Medical Migraine. Branch sumatriptan 2021-09 Yes [id number] 100mg Take 1 [facility] 100 mg 1-16 tablet by ity of tablet 00:00: mouth as [place] 00 needed for Medical Migraine. Branch sumatriptan 2021-09 Yes [id number] 100mg Take 1 [facility] 100 mg 1-16 tablet by ity of tablet 00:00: mouth as [place] 00 needed for Medical Migraine. Branch sumatriptan 2021-09 Yes [id number] 100mg Take 1 [facility] 100 mg 1-16 tablet by ity of tablet 00:00: mouth as [place] 00 needed for Medical Migraine. Branch sumatriptan 2021-09 Yes [id number] 100mg Take 1 [facility] 100 mg 1-16 tablet by ity of tablet 00:00: mouth as [place] 00 needed for Medical Migraine. Branch sumatriptan 2021-09 Yes [id number] 100mg Take 1 [facility] 100 mg 1-16 tablet by ity of tablet 00:00: mouth as [place] 00 needed for Medical Migraine. Branch sumatriptan 2021-09 Yes [id number] 100mg Take 1 [facility] 100 mg 1-16 tablet by ity of tablet 00:00: mouth as [place] 00 needed for Medical Migraine. Branch sumatriptan 2021-09 Yes [id number] 100mg Take 1 [facility] 100 mg 1-16 tablet by ity of tablet 00:00: mouth as [place] 00 needed for Medical Migraine. Branch sumatriptan 2021-09 Yes [id number] 100mg Take 1 [facility] 100 mg 1-16 tablet by ity of tablet 00:00: mouth as [place] 00 needed for Medical Migraine. Branch sumatriptan 2021-09 Yes [id number] 100mg Take 1 [facility] 100 mg 1-16 tablet by ity of tablet 00:00: mouth as [place] 00 needed for Medical Migraine. Branch sumatriptan 2021-09 Yes [id number] 100mg Take 1 [facility] 100 mg 1-16 tablet by ity of tablet 00:00: mouth as [place] 00 needed for Medical Migraine. Branch sumatriptan 2021-09 Yes [id number] 100mg Take 1 [facility] 100 mg 1-16 tablet by ity of tablet 00:00: mouth as [place] 00 needed for Medical Migraine. Branch sumatriptan 2021-09 Yes [id number] 100mg Take 1 [facility] 100 mg 1-16 tablet by ity of tablet 00:00: mouth as [place] 00 needed for Medical Migraine. Branch sumatriptan 2021-09 Yes [id number] 100mg Take 1 [facility] 100 mg 1-16 tablet by ity of tablet 00:00: mouth as [place] 00 needed for Medical Migraine. Branch sumatriptan 2021-09 Yes [id number] 100mg Take 1 [facility] 100 mg 1-16 tablet by ity of tablet 00:00: mouth as [place] 00 needed for Medical Migraine. Branch sumatriptan 2021-09 Yes [id number] 100mg Take 1 [facility] 100 mg 1-16 tablet by ity of tablet 00:00: mouth as [place] 00 needed for Medical Migraine. Branch sumatriptan 2021-09 Yes [id number] 100mg Take 1 [facility] 100 mg 1-16 tablet by ity of tablet 00:00: mouth as [place] 00 needed for Medical Migraine. Branch Sumatriptan 2021-09- No 100mg Take 1 [facility] Succinate 1-16 08-15 tablet Seybold 100 MG oral 00:00: 00:00 (100 mg - Tablet 00 :00 total) by Externa mouth as l needed lisinopriL 2021-09- No [id number] 10mg Take 1 [facility] 10 mg 1-16 01-24 tablet by ity of tablet 00:00: 00:00 mouth [place] 00 :00 daily. Medical Branch cholecalcif 2021-09 Yes QD Take by [facility] deb 0-26 mouth 1 [facility] (Vitamin 09:37: (one) time D-3) 10 MCG 29 each day. (400 UNIT) capsule Pregabalin 2021-09 Yes 75mg Take 1 [facility] 75 MG oral 0-26 capsule Seybol d Capsule 00:00: (75 mg - 00 total) by Externa mouth 2 l times daily Pregabalin 2022-1 Yes 75mg Take 1 [facility] 75 MG oral 0-26 capsule Seybol d Capsule 00:00: (75 mg - 00 total) by Externa mouth 2 l times daily Pregabalin 2-1 Yes 75mg Take 1 [facility] 75 MG oral 0-26 capsule Seybol d Capsule 00:00: (75 mg - 00 total) by Externa mouth 2 l times daily pregabalin 2-1 Yes 75mg Take 75 mg [facility] 75 mg 0-26 by mouth 2 ity of capsule 00:00: (two) [place] 00 times Medical daily. Branch pregabalin 2-1 Yes 75mg Take 75 mg [facility] 75 mg 0-26 by mouth 2 ity of capsule 00:00: (two) [place] 00 times Medical daily. Branch pregabalin 2-1 Yes 75mg Take 75 mg [facility] 75 mg 0-26 by mouth 2 ity of capsule 00:00: (two) [place] 00 times Medical daily. Branch pregabalin 2-1 Yes 75mg Take 75 mg [facility] nivers 75 mg 0-26 by mouth 2 ity of capsule 00:00: (two) [place] 00 times Medical daily. Branch pregabalin 2-1 Yes 75mg Take 75 mg [facility] n[facility] 75 mg 0-26 by mouth 2 ity of capsule 00:00: (two) [place] 00 times Medical daily. Branch pregabalin 2-1 Yes 75mg Take 75 mg [facility] nivers 75 mg 0-26 by mouth 2 ity of capsule 00:00: (two) [place] 00 times Medical daily. Branch pregabalin 2-1 Yes 75mg Take 75 mg [facility] nivers 75 mg 0-26 by mouth 2 ity of capsule 00:00: (two) [place] 00 times Medical daily. Branch pregabalin 2-1 Yes 75mg Take 75 mg [facility] nivers 75 mg 0-26 by mouth 2 ity of capsule 00:00: (two) [place] 00 times Medical daily. Branch pregabalin 2022-1 Yes 75mg Take 75 mg [facility] nivers 75 mg 0-26 by mouth 2 ity of capsule 00:00: (two) [place] 00 times Medical daily. Branch pregabalin 2-1 Yes 75mg Take 75 mg U nivers [...] mouth 2 ity of capsule 00:00: (two) [place] 00 times Medical daily. Branch pregabalin 2022-1 Yes 75mg Take 75 mg [facility] nivers 75 mg 0-26 by mouth 2 ity of capsule 00:00: (two) [place] 00 times Medical daily. Branch pregabalin 2022-1 Yes 75mg Take 75 mg [facility] 75 mg 0-26 by mouth 2 ity of capsule 00:00: (two) [place] 00 times Medical daily. Branch pregabalin 2022-1 Yes 75mg Take 75 mg [facility] nivers 75 mg 0-26 by mouth 2 ity of capsule 00:00: (two) [place] 00 times Medical daily. Branch pregabalin 2022-1 Yes 75mg Take 75 mg [facility] 75 mg 0-26 by mouth 2 ity of capsule 00:00: (two) [place] 00 times Medical daily. Branch pregabalin 2022-1 Yes 75mg Take 75 mg [facility] 75 mg 0-26 by mouth 2 ity of capsule 00:00: (two) [place] 00 times Medical daily. Branch pregabalin 2022-1 Yes 75mg Take 75 mg [facility] 75 mg 0-26 by mouth 2 ity of capsule 00:00: (two) [place] 00 times Medical daily. Branch pregabalin 2022-1 Yes 75mg Take 75 mg [facility] 75 mg 0-26 by mouth 2 ity of capsule 00:00: (two) [place] 00 times Medical daily. Branch pregabalin 2022-1 Yes 75mg Take 75 mg [facility] 75 mg 0-26 by mouth 2 ity of capsule 00:00: (two) [place] 00 times Medical daily. Branch pregabalin 2022-1 Yes 75mg Take 75 mg [facility] 75 mg 0-26 by mouth 2 ity of capsule 00:00: (two) [place] 00 times Medical daily. Branch pregabalin 2022-1 Yes 75mg Take 75 mg [facility] 75 mg 0-26 by mouth 2 ity of capsule 00:00: (two) [place] 00 times Medical daily. Branch pregabalin 2022-1 [...] mouth 2 ity of capsule 00:00: (two) [place] 00 times Medical daily. Branch pregabalin 2022-1 Yes 75mg Take 75 mg [facility] nivers 75 mg 0-26 by mouth 2 ity of capsule 00:00: (two) [place] 00 times Medical daily. Branch pregabalin 2022-1 Yes 75mg Take 75 mg [facility] 75 mg 0-26 by mouth 2 ity of capsule 00:00: (two) [place] 00 times Medical daily. Branch pregabalin 2022-1 Yes 75mg Take 75 mg [facility] 75 mg 0-26 by mouth 2 ity of capsule 00:00: (two) [place] 00 times Medical daily. Branch pregabalin 2022-1 Yes 75mg Take 75 mg [facility] 75 mg 0-26 by mouth 2 ity of capsule 00:00: (two) [place] 00 times Medical daily. Branch pregabalin 2022-1 Yes 75mg Take 75 mg [facility] nivers 75 mg 0-26 by mouth 2 ity of capsule 00:00: (two) [place] 00 times Medical daily. Branch pregabalin 2022-1 Yes 75mg Take 75 mg [facility] 75 mg 0-26 by mouth 2 ity of capsule 00:00: (two) [place] 00 times Medical daily. Branch pregabalin 2022-1 Yes 75mg Take 75 mg [facility] 75 mg 0-26 by mouth 2 ity of capsule 00:00: (two) [place] 00 times Medical daily. Branch pregabalin 2022-1 Yes 75mg Take 75 mg [facility] 75 mg 0-26 by mouth 2 ity of capsule 00:00: (two) [place] 00 times Medical daily. Branch pregabalin 2022-1 [...] mouth 2 ity of capsule 00:00: (two) [place] 00 times Medical daily. Branch pregabalin 2022-1 Yes 75mg Take 75 mg [facility] nivers 75 mg 0-26 by mouth 2 ity of capsule 00:00: (two) [place] 00 times Medical daily. Branch pregabalin 2022-1 Yes 75mg Take 75 mg [facility] 75 mg 0-26 by mouth 2 ity of capsule 00:00: (two) [place] 00 times Medical daily. Branch pregabalin 2022-1 Yes 75mg Take 75 mg [facility] 75 mg 0-26 by mouth 2 ity of capsule 00:00: (two) [place] 00 times Medical daily. Branch pregabalin 2022-1 Yes 75mg Take 75 mg [facility] 75 mg 0-26 by mouth 2 ity of capsule 00:00: (two) [place] 00 times Medical daily. Branch pregabalin 2022-1 Yes 75mg Take 75 mg [facility] nivers 75 mg 0-26 by mouth 2 ity of capsule 00:00: (two) [place] 00 times Medical daily. Branch pregabalin 2022-1 Yes 75mg Take 75 mg [facility] 75 mg 0-26 by mouth 2 ity of capsule 00:00: (two) [place] 00 times Medical daily. Branch pregabalin 2022-1 Yes 75mg Take 75 mg [facility] 75 mg 0-26 by mouth 2 ity of capsule 00:00: (two) [place] 00 times Medical daily. Branch pregabalin 2022-1 Yes 75mg Take 75 mg [facility] 75 mg 0-26 by mouth 2 ity of capsule 00:00: (two) [place] 00 times Medical daily. Branch pregabalin 2021-09 Yes 75mg Take 75 mg [facility] nivers 75 mg 0-26 by mouth 2 ity of capsule 00:00: (two) [place] 00 times Medical daily. Branch pregabalin 2021-09 Yes 75mg Take 75 mg U nivers 75 mg 0-26 by mouth 2 ity of capsule 00:00: (two) [place] 00 times Medical daily. Branch pregabalin 2021-09 Yes 75mg Take 75 mg [facility] nivers 75 mg 0-26 by mouth 2 ity of capsule 00:00: (two) [place] 00 times Medical daily. Branch pregabalin 2021-09 Yes 75mg Take 75 mg [facility] n[facility] 75 mg 0-26 by mouth 2 ity of capsule 00:00: (two) [place] 00 times Medical daily. Branch pregabalin 2021-09 Yes 75mg Take 75 mg [facility] nivers 75 mg 0-26 by mouth 2 ity of capsule 00:00: (two) [place] 00 times Medical daily. Branch pregabalin 2021-09 Yes 75mg Take 75 mg [facility] nivers 75 mg 0-26 by mouth 2 ity of capsule 00:00: (two) [place] 00 times Medical daily. Branch pregabalin 2021-09 Yes 75mg Take 75 mg [facility] nivers 75 mg 0-26 by mouth 2 ity of capsule 00:00: (two) [place] 00 times Medical daily. Branch pregabalin 2021-09 Yes 75mg Take 75 mg [facility] nivers 75 mg 0-26 by mouth 2 ity of capsule 00:00: (two) [place] 00 times Medical daily. Branch pregabalin 2021-09- No [id number] 75mg Q.5D Take 1 [facility] (Lyrica) 75 0-26 10-27 capsule [facility] MG capsule 00:00: 04:59 (75 mg 00 :00 total) by mouth in the morning and 1 capsule (75 mg total) in the evening. Pregabalin 2021-09- No 75mg Take 1 [facility] ey 75 MG oral 0-26 07-19 capsule Seybo ld Capsule 00:00: 00:00 (75 mg - 00 :00 total) by Externa mouth 2 l times daily pregabalin 2021-09- No [id number] 75mg Q.5D Take 1 [facility] (Lyrica) 75 0-26 - capsule [facility] MG capsule 00:00: 00:00 (75 mg 00 :00 total) by mouth in the morning and 1 capsule (75 mg total) in the evening. tc 2021-09- No [id number] 1mCi 1 [facility] 99m-sulfur 07-11 millicurie it y of colloid 14:15: 13:45 , Oral, [place] oral 00 :00 ONCE, 1 Medical solution 1 dose, On Bran h millicurie 07/11/22 at 0915, Routine gabapentin 2021-09 [facility] (Neurontin) 007-18 [facility] 300 MG 00:00: 00:00 capsule 00 :00 topiramate 2021-09 Yes 25mg Q.5D Take 1 [facility] tablet (25 [facility] 25 MG 00:00: mg total) Medical tablet 00 by mouth Center in the morning and 1 tablet (25 mg total) before bedtime. topiramate 2021-09 Yes 25mg Q.5D Take 1 [facility] ([facility]AM[facility] 0-11 tablet (25 [facility] 25 MG 00:00: mg total) Medical tablet 00 by mouth Center in the morning and 1 tablet (25 mg total) before bedtime. topiramate 2021-09 Yes 25mg Q.5D Take 1 [facility] (TOPAMAX[facility] 0-11 tablet (25 [facility] 25 MG 00:00: mg total) Medical tablet 00 by mouth Center in the morning and 1 tablet (25 mg total) before bedtime. topiramate 2021-09 Yes 25mg Q.5D Take 1 [facility] ([facility]AMAX[facility] 0-11 tablet (25 [facility] 25 MG 00:00: mg total) Medical tablet 00 by mouth Center in the morning and 1 tablet (25 mg total) before bedtime. topiramate 2021-09 Yes 25mg Take 25 mg [facility] (Topamax) 0-11 by mouth. Healt h 25 MG 00:00: tablet 00 topiramate 2021-09 Yes 25mg Q.5D Take 25 mg [facility] (Topamax) 0-11 by mouth Health 25 MG 00:00: in the tablet 00 morning and 25 mg in the evening. topiramate 2022-1 Yes 25mg Take 25 mg [...] mouth 2 ity of tablet 00:00: (two) [place] 00 times Medical daily. Branch topiramate 2022-1 [...] mouth 2 ity of tablet 00:00: (two) 00 times Medical daily. Branch topiramate 2022-1 Yes 25mg Take 25 mg U nivers 25 mg 0-11 by mouth 2 ity of tablet 00:00: (two) 00 times Medical daily. Branch topiramate 2022-1 [...] [place] 00 times Medical daily. Branch topiramate 2021-09 [...] [place] 00 times Medical daily. Branch topiramate 2021-09 Yes 25mg Take 25 mg U nivers 25 mg 0-11 by mouth 2 ity of tablet 00:00: (two) [place] 00 times Medical daily. Branch topiramate 2021- Yes 25mg Take 25 mg U nivers 25 mg 0-11 by mouth 2 ity of tablet 00:00: (two) [place] 00 times Medical daily. Branch topiramate 2021-09 Yes 25mg Take 25 mg U nivers 25 mg 0-11 by mouth 2 ity of tablet 00:00: (two) [place] 00 times Medical daily. Branch topiramate 2021-09 Yes 25mg Q.5D Take 1 [facility] tablet (25 [facility] 25 MG 00:00: mg total) Medical tablet 00 by mouth Center in the morning and 1 tablet (25 mg total) before bedtime. Topiramate 2021-09- No 25mg Take 1 [facility] 25 MG oral 0-11 04-10 tablet (25 [facility] Tablet 00:00: 00:00 mg total) - 00 :00 by mouth 2 Externa times l daily BOTOX 200 2-0 Yes 200U 200 Units. Un yesi unit 9 ity of 00:00: 00 Medical Branch BOTOX 200 2022-0 Yes 200U 200 Units. Un yesi unit 06-21 ity of 00:00: Medical Branch BOTOX 200 2022-0 Yes 200U 200 Units. Un yesi unit 9 ity of 00:00: Medical Branch BOTOX 200 2022-0 Yes 200U [...] 00:00: [place] 00 Medical Branch BOTOX 200 2-0 Yes [...] 06-21 ity of 00:00: 00 Medical Branch Baclofen 5 2021-0 Yes 1{tbl} [id number] Take 1 [facility] tablet 06-20 [id number] tablet by [facility] 00:00: 3D mouth in 00 the morning and 1 tablet at noon and 1 tablet in the evening. Baclofen 5 2021-0 Yes 1{tbl} Q.[id number] Take 1 [facility] MG tablet 06-20 [id number] tablet by [facility] 00:00: 3D mouth in 00 the morning and 1 tablet at noon and 1 tablet in the evening. Baclofen 5 2021-0 3- No 1{tbl} Q.[id number] Take 1 [facility] MG tablet 06-20 [id number] tablet by [facility] 00:00: 00:00 3D mouth in 00 :00 [...] ACTIVE 06-15 mouth. ity of ORAL) 11:53: [address] Branch cholecalcif 2021-0 Yes Take by [facility] vers deb, 06-15 mouth. ity of vitamin D3, 11:53: [place] (D3 Medical ORAL) Branch mv,li,iron 0 Yes Take by [facility] vers ,mn/folic 06-15 mouth. ity of acid/chol 11:53: [place] (HAIR-SKIN- 19 Medical NAILS, Branch PABA, ORAL) diphenhydrA 2021-0 Yes 25mg Take 25 mg [facility] MINE 06-15 by mouth ity of (BENADRYL) 11:53: every 6 [place] 25 mg 19 (six) Medical capsule hours as Branch needed for Allergies. mecobalamin 2022-0 Yes Take by [facility] vers (B12 ACTIVE 06-15 mouth. ity of ORAL) 11:53: [address] Branch cholecalcif 2021-0 Yes Take by [facility] vers deb, 06-15 mouth. ity of vitamin D3, 11:53: [place] (D3-1999 Medical ORAL) Branch mv,li,iron 202-0 Yes Take by [facility] vers ,mn/folic 06-15 mouth. ity of acid/chol 11:53: [place] (HAIR-SKIN- 19 Medical NAILS, Branch PABA, ORAL) diphenhydrA 2022-0 Yes 25mg Take 25 mg [facility] MINE 9-23 by mouth ity of (BENADRYL) 11:53: every 6 [place] 25 mg 19 (six) Medical capsule hours as Branch needed for Allergies. mecobalamin 2022-0 Yes Take by [facility] vers (B12 ACTIVE 06-15 mouth. ity of ORAL) 11:53: [place] [address] Medical Branch cholecalcif 2021-0 Yes Take by [facility] vers deb, 06-15 mouth. ity of vitamin D3, 11:53: [place] (D3 Medical ORAL) Branch mv,li,iron 2021-0 Yes Take by [facility] vers ,mn/folic 06-15 mouth. ity of acid/chol 11:53: [place] (HAIR-SKIN- 19 Medical NAILS, Branch PABA, ORAL) diphenhydrA 2-0 Yes 25mg Take 25 mg [facility] MINE 9-23 by mouth ity of (BENADRYL) 11:53: every 6 [place] 25 mg 19 (six) Medical capsule hours as Branch needed for Allergies. mecobalamin 2022-0 Yes Take by [facility] vers (B12 ACTIVE 06-15 mouth. ity of ORAL) 11:53: [place] [address] Medical Branch cholecalcif 2021-0 Yes Take by [facility] vers deb, 06-15 mouth. ity of vitamin D3, 11:53: [place] (D3 Medical ORAL) Branch mv,li,iron 2021-0 Yes Take by [facility] vers ,mn/folic - mouth. ity of acid/chol 11:53: [place] (HAIR-SKIN- 19 Medical NAILS, Branch PABA, ORAL) diphenhydrA 2-0 Yes 25mg Take 25 mg [facility] MINE 9-23 by mouth ity of (BENADRYL) 11:53: every 6 [place] 25 mg 19 (six) Medical capsule hours as Branch needed for Allergies. mecobalamin 2022-0 Yes Take by [facility] vers (B12 ACTIVE 06-15 mouth. ity of ORAL) 11:53: [place] [address] Medical Branch cholecalcif 2021-0 Yes Take by [facility] vers deb, 06-15 mouth. ity of vitamin D3, 11:53: [place] (D3 Medical ORAL) Branch mv,li,iron 2021-0 Yes Take by [facility] vers ,mn/folic 06-15 mouth. ity of acid/chol 11:53: [place] (HAIR-SKIN- 19 Medical NAILS, Branch PABA, ORAL) diphenhydrA 2021-0 Yes 25mg Take 25 mg [facility] MINE 9 by mouth ity of (BENADRYL) 11:53: every 6 [place] 25 mg 19 (six) Medical capsule hours as Branch needed for Allergies. mecobalamin 2021-0 Yes Take by [facility] vers (B12 ACTIVE 06-15 mouth. ity of ORAL) 11:53: [address] Branch cholecalcif 2021-0 Yes Take by [facility] vers deb, 06-15 mouth. ity of vitamin D3, 11:53: [place] (D3-1999 19 Medical ORAL) Branch mv,li,iron Yes Take by [facility] vers ,mn/folic 06-15 mouth. ity of acid/chol 11:53: [place] (HAIR-SKIN- 19 Medical NAILS, Branch PABA, ORAL) diphenhydrA 2021-0 Yes 25mg Take 25 mg [facility] MINE 06-15 by mouth ity of (BENADRYL) 11:53: every 6 [place] 25 mg 19 (six) Medical capsule hours as Branch needed for Allergies. mecobalamin 2021-0 Yes Take by [facility] vers (B12 ACTIVE 06-15 mouth. ity of ORAL) 11:53: [address] Branch cholecalcif 0 Yes Take by [facility] vers deb, 06-15 mouth. ity of vitamin D3, 11:53: [place] (D3-1999 Medical ORAL) Branch mv,li,iron 0 Yes Take by [facility] vers ,mn/folic 06-15 mouth. ity of acid/chol 11:53: [place] (HAIR-SKIN- 19 Medical NAILS, Branch PABA, ORAL) diphenhydrA 2-0 Yes 25mg Take 25 mg [facility] MINE 9 by mouth ity of (BENADRYL) 11:53: every 6 [place] 25 mg 19 (six) Medical capsule hours as Branch needed for Allergies. mecobalamin 2-0 Yes Take by [facility] vers (B12 ACTIVE 06-15 mouth. ity of ORAL) 11:53: [address] Branch cholecalcif 2021-0 Yes Take by [facility] vers deb, 06-15 mouth. ity of vitamin D3, 11:53: [place] (D3 Medical ORAL) Branch mv,li,iron 2021-0 Yes Take by [facility] vers ,mn/folic 06-15 mouth. ity of acid/chol 11:53: [place] (HAIR-SKIN- 19 Medical NAILS, Branch PABA, ORAL) diphenhydrA 2-0 Yes 25mg Take 25 mg [facility] MINE 9-23 by mouth ity of (BENADRYL) 11:53: every 6 [place] 25 mg 19 (six) Medical capsule hours as Branch needed for Allergies. mecobalamin 2-0 Yes Take by [facility] vers (B12 ACTIVE 06-15 mouth. ity of ORAL) 11:53: [address] Branch cholecalcif 2021-0 Yes Take by [facility] vers deb, 06-15 mouth. ity of vitamin D3, 11:53: [place] (D3 Medical ORAL) Branch mv,li,iron 0 Yes Take by [facility] vers ,mn/folic 06-15 mouth. ity of acid/chol 11:53: [place] (HAIR-SKIN- 19 Medical NAILS, Branch PABA, ORAL) diphenhydrA 2-0 Yes 25mg Take 25 mg [facility] MINE 06-15 by mouth ity of (BENADRYL) 11:53: every 6 [place] 25 mg 19 (six) Medical capsule hours as Branch needed for Allergies. mecobalamin 2-0 Yes Take by [facility] vers (B12 ACTIVE 06-15 mouth. ity of ORAL) 11:53: [address] Branch cholecalcif 2021-0 Yes Take by [facility] vers deb, 06-15 mouth. ity of vitamin D3, 11:53: [place] (D3 Medical ORAL) Branch mv,li,iron 2021-0 Yes Take by [facility] vers ,mn/folic 06-15 mouth. ity of acid/chol 11:53: [place] (HAIR-SKIN- 19 Medical NAILS, Branch PABA, ORAL) diphenhydrA 2-0 Yes 25mg Take 25 mg [facility] MINE 9-23 by mouth ity of (BENADRYL) 11:53: every 6 [place] 25 mg 19 (six) Medical capsule hours as Branch needed for Allergies. mecobalamin 2022-0 Yes Take by [facility] vers (B12 ACTIVE 06-15 mouth. ity of ORAL) 11:53: [place] [address] Medical Branch cholecalcif 0 Yes Take by [facility] vers deb, 06-15 mouth. ity of vitamin D3, 11:53: [place] (D3 Medical ORAL) Branch mv,li,iron Yes Take by [facility] vers ,mn/folic 06-15 mouth. ity of acid/chol 11:53: [place] (HAIR-SKIN- 19 Medical NAILS, Branch PABA, ORAL) diphenhydrA 2-0 Yes 25mg Take 25 mg [facility] MINE 06-15 by mouth ity of (BENADRYL) 11:53: every 6 [place] 25 mg 19 (six) Medical capsule hours as Branch needed for Allergies. mecobalamin 2021-0 Yes Take by [facility] vers (B12 ACTIVE 06-15 mouth. ity of ORAL) 11:53: [place] [address] Medical Branch cholecalcif 0 Yes Take by [facility] vers deb, 06-15 mouth. ity of vitamin D3, 11:53: [place] (D3 Medical ORAL) Branch mv,li,iron Yes Take by [facility] vers ,mn/folic 06-15 mouth. ity of acid/chol 11:53: [place] (HAIR-SKIN- 19 Medical NAILS, Branch PABA, ORAL) diphenhydrA 2021-0 Yes 25mg Take 25 mg [facility] MINE 06-15 by mouth ity of (BENADRYL) 11:53: every 6 [place] 25 mg 19 (six) Medical capsule hours as Branch needed for Allergies. mecobalamin 2021-0 Yes Take by [facility] vers (B12 ACTIVE 06-15 mouth. ity of ORAL) 11:53: [address] Branch cholecalcif 2021-0 Yes Take by [facility] vers deb, 06-15 mouth. ity of vitamin D3, 11:53: [place] (D3 Medical ORAL) Branch mv,li,iron Yes Take by [facility] vers ,mn/folic 06-15 mouth. ity of acid/chol 11:53: [place] (HAIR-SKIN- 19 Medical NAILS, Branch PABA, ORAL) diphenhydrA 2-0 Yes 25mg Take 25 mg [facility] MINE 06-15 by mouth ity of (BENADRYL) 11:53: every 6 [place] 25 mg 19 (six) Medical capsule hours as Branch needed for Allergies. mecobalamin 2022-0 Yes Take by [facility] vers (B12 ACTIVE 9- mouth. ity of ORAL) 11:53: [place] [address] Medical Branch cholecalcif 2021-0 Yes Take by [facility] vers deb, 9- mouth. ity of vitamin D3, 11:53: [place] (D3-1999 Medical ORAL) Branch mv,li,iron 202-0 Yes Take by [facility] vers ,mn/folic 9-23 mouth. ity of acid/chol 11:53: [place] (HAIR-SKIN- 19 Medical NAILS, Branch PABA, ORAL) diphenhydrA 2022-0 Yes 25mg Take 25 mg [facility] MINE 9-23 by mouth ity of (BENADRYL) 11:53: every 6 [place] 25 mg 19 (six) Medical capsule hours as Branch needed for Allergies. mecobalamin 2022-0 Yes Take by [facility] vers (B12 ACTIVE 9- mouth. ity of ORAL) 11:53: [address] Branch cholecalcif 2021-0 Yes Take by [facility] vers deb, - mouth. ity of vitamin D3, 11:53: [place] (D3 Medical ORAL) Branch mv,li,iron 2021-0 Yes Take by [facility] vers ,mn/folic 9-23 mouth. ity of acid/chol 11:53: [place] (HAIR-SKIN- 19 Medical NAILS, Branch PABA, ORAL) diphenhydrA 2-0 Yes 25mg Take 25 mg [facility] MINE 9-23 by mouth ity of (BENADRYL) 11:53: every 6 [place] 25 mg 19 (six) Medical capsule hours as Branch needed for Allergies. mecobalamin 2022-0 Yes Take by [facility] vers (B12 ACTIVE 9- mouth. ity of ORAL) 11:53: [address] Branch cholecalcif 2021-0 Yes Take by [facility] vers deb, 9-23 mouth. ity of vitamin D3, 11:53: [place] (D3-1999 19 Medical ORAL) Branch mv,li,iron 202-0 Yes Take by [facility] vers ,mn/folic 9-23 mouth. ity of acid/chol 11:53: [place] (HAIR-SKIN- 19 Medical NAILS, Branch PABA, ORAL) diphenhydrA 2022-0 Yes 25mg Take 25 mg [facility] MINE 9-23 by mouth ity of (BENADRYL) 11:53: every 6 [place] 25 mg 19 (six) Medical capsule hours as Branch needed for Allergies. mecobalamin 2022-0 Yes Take by [facility] vers (B12 ACTIVE 06-15 mouth. ity of ORAL) 11:53: [address] Branch cholecalcif 2021-0 Yes Take by [facility] vers deb, 06-15 mouth. ity of vitamin D3, 11:53: [place] (D3 19 Medical ORAL) Branch mv,li,iron 0 Yes Take by [facility] vers ,mn/folic 06-15 mouth. ity of acid/chol 11:53: [place] (HAIR-SKIN- 19 Medical NAILS, Branch PABA, ORAL) diphenhydrA 2-0 Yes 25mg Take 25 mg [facility] MINE 9-23 by mouth ity of (BENADRYL) 11:53: every 6 [place] 25 mg 19 (six) Medical capsule hours as Branch needed for Allergies. mecobalamin 2-0 Yes Take by [facility] vers (B12 ACTIVE 06-15 mouth. ity of ORAL) 11:53: [address] Branch cholecalcif 2021-0 Yes Take by [facility] vers deb, 06-15 mouth. ity of vitamin D3, 11:53: [place] (D3 Medical ORAL) Branch mv,li,iron 0 Yes Take by [facility] vers ,mn/folic - mouth. ity of acid/chol 11:53: [place] (HAIR-SKIN- 19 Medical NAILS, Branch PABA, ORAL) diphenhydrA 2-0 Yes 25mg Take 25 mg [facility] MINE 9-23 by mouth ity of (BENADRYL) 11:53: every 6 [place] 25 mg 19 (six) Medical capsule hours as Branch needed for Allergies. mecobalamin 2022-0 Yes Take by [facility] vers (B12 ACTIVE 9- mouth. ity of ORAL) 11:53: [address] Branch cholecalcif 2021-0 Yes Take by [facility] vers deb, 06-15 mouth. ity of vitamin D3, 11:53: [place] (D3 Medical ORAL) Branch mv,li,iron 0 Yes Take by [facility] vers ,mn/folic 06-15 mouth. ity of acid/chol 11:53: [place] (HAIR-SKIN- 19 Medical NAILS, Branch PABA, ORAL) diphenhydrA 2022-0 Yes 25mg Take 25 mg [facility] MINE 9- by mouth ity of (BENADRYL) 11:53: every 6 [place] 25 mg 19 (six) Medical capsule hours as Branch needed for Allergies. mecobalamin 2022-0 Yes Take by [facility] vers (B12 ACTIVE 06-15 mouth. ity of ORAL) 11:53: [place] [address] Medical Branch cholecalcif 2021-0 Yes Take by [facility] vers deb, 06-15 mouth. ity of vitamin D3, 11:53: [place] (D3 Medical ORAL) Branch mv,li,iron Yes Take by [facility] vers ,mn/folic - mouth. ity of acid/chol 11:53: [place] (HAIR-SKIN- 19 Medical NAILS, Branch PABA, ORAL) diphenhydrA 2-0 Yes 25mg Take 25 mg [facility] MINE 06-15 by mouth ity of (BENADRYL) 11:53: every 6 [place] 25 mg 19 (six) Medical capsule hours as Branch needed for Allergies. mecobalamin 2021-0 Yes Take by [facility] (B12 ACTIVE 06-15 mouth. ity of ORAL) 11:53: [address] Branch cholecalcif 2021-0 Yes Take by [facility] deb, 06-15 mouth. ity of vitamin D3, 11:53: [place] (D3-1999 Medical ORAL) Branch mv,li,iron 0 Yes Take by [facility] ,mn/folic 06-15 mouth. ity of acid/chol 11:53: [place] (HAIR-SKIN- 19 Medical NAILS, Branch PABA, ORAL) diphenhydrA 2-0 Yes 25mg Take 25 mg [facility] MINE 9-23 by mouth ity of (BENADRYL) 11:53: every [place] 25 mg 19 (six) Medical capsule hours as Branch needed for Allergies. mecobalamin 2022-0 Yes Take by [facility] (B12 ACTIVE - mouth. ity of ORAL) 11:53: [address] Branch cholecalcif 2021-0 Yes Take by [facility] deb, - mouth. ity of vitamin D3, 11:53: [place] (D3 19 Medical ORAL) Branch mv,li,iron 2021-0 Yes Take by [facility] ,mn/folic 9-23 mouth. ity of acid/chol 11:53: [place] (HAIR-SKIN- 19 Medical NAILS, Branch PABA, ORAL) diphenhydrA 2-0 Yes 25mg Take 25 mg [facility] MINE 9-23 by mouth ity of (BENADRYL) 11:53: every 6 [place] 25 mg 19 (six) Medical capsule hours as Branch needed for Allergies. mecobalamin 2022-0 Yes Take by [facility] (B12 ACTIVE 06-15 mouth. ity of ORAL) 11:53: [address] Branch cholecalcif 2021-0 Yes Take by [facility] deb, 06-15 mouth. ity of vitamin D3, 11:53: [place] (D3 Medical ORAL) Branch mv,li,iron 0 Yes Take by [facility] ,mn/folic 9-23 mouth. ity of acid/chol 11:53: [place] (HAIR-SKIN- 19 Medical NAILS, Branch PABA, ORAL) diphenhydrA 2-0 Yes 25mg Take 25 mg [facility] MINE 9-23 by mouth ity of (BENADRYL) 11:53: every 6 [place] 25 mg 19 (six) Medical capsule hours as Branch needed for Allergies. mecobalamin 2-0 Yes Take by [facility] (B12 ACTIVE 9- mouth. ity of ORAL) 11:53: [address] Branch cholecalcif 2021-0 Yes Take by [facility] deb, 06-15 mouth. ity of vitamin D3, 11:53: [place] (D3 Medical ORAL) Branch mv,li,iron 0 Yes Take by [facility] ,mn/folic 9-23 mouth. ity of acid/chol 11:53: [place] (HAIR-SKIN- 19 Medical NAILS, Branch PABA, ORAL) diphenhydrA 2022-0 Yes 25mg Take 25 mg [facility] MINE 9-23 by mouth ity of (BENADRYL) 11:53: every 6 [place] 25 mg 19 (six) Medical capsule hours as Branch needed for Allergies. mecobalamin 2022-0 Yes Take by [facility] (B12 ACTIVE 9-23 mouth. ity of ORAL) 11:53: [place] [address] Medical Branch cholecalcif 0 Yes Take by [facility] deb, 06-15 mouth. ity of vitamin D3, 11:53: [place] (D3 Medical ORAL) Branch mv,li,iron 0 Yes Take by [facility] ,mn/folic 06-15 mouth. ity of acid/chol 11:53: [place] (HAIR-SKIN- 19 Medical NAILS, Branch PABA, ORAL) diphenhydrA 2021-0 Yes 25mg Take 25 mg [facility] MINE 9-23 by mouth ity of (BENADRYL) 11:53: every 6 [place] 25 mg 19 (six) Medical capsule hours as Branch needed for Allergies. mecobalamin 2021-0 Yes Take by [facility] (B12 ACTIVE 06-15 mouth. ity of ORAL) 11:53: [address] Branch cholecalcif 0 Yes Take by [facility] deb, 06-15 mouth. ity of vitamin D3, 11:53: [place] (D3 Medical ORAL) Branch mv,li,iron 0 Yes Take by [facility] ,mn/folic 06-15 mouth. ity of acid/chol 11:53: [place] (HAIR-SKIN- 19 Medical NAILS, Branch PABA, ORAL) diphenhydrA 2021-0 Yes 25mg Take 25 mg [facility] MINE 06-15 by mouth ity of (BENADRYL) 11:53: every 6 [place] 25 mg 19 (six) Medical capsule hours as Branch needed for Allergies. mecobalamin 2021-0 Yes Take by [facility] (B12 ACTIVE 06-15 mouth. ity of ORAL) 11:53: [address] Branch cholecalcif 2021-0 Yes Take by [facility] deb, 06-15 mouth. ity of vitamin D3, 11:53: [place] (D3 Medical ORAL) Branch mv,li,iron 0 Yes Take by [facility] ,mn/folic 06-15 mouth. ity of acid/chol 11:53: [place] (HAIR-SKIN- 19 Medical NAILS, Branch PABA, ORAL) diphenhydrA 2-0 Yes 25mg Take 25 mg [facility] MINE 9-23 by mouth ity of (BENADRYL) 11:53: every 6 [place] 25 mg 19 (six) Medical capsule hours as Branch needed for Allergies. mecobalamin 2022-0 Yes Take by [facility] (B12 ACTIVE 9 mouth. ity of ORAL) 11:53: [place] [address] Medical Branch cholecalcif 2021-0 Yes Take by [facility] deb, - mouth. ity of vitamin D3, 11:53: [place] (D3-1999 19 Medical ORAL) Branch mv,li,iron 202-0 Yes Take by [facility] ,mn/folic - mouth. ity of acid/chol 11:53: [place] (HAIR-SKIN- 19 Medical NAILS, Branch PABA, ORAL) diphenhydrA 2022-0 Yes 25mg Take 25 mg [facility] MINE 9-23 by mouth ity of (BENADRYL) 11:53: every 6 [place] 25 mg 19 (six) Medical capsule hours as Branch needed for Allergies. mecobalamin 2022-0 Yes Take by [facility] (B12 ACTIVE - mouth. ity of ORAL) 11:53: [address] Branch cholecalcif 2021-0 Yes Take by [facility] deb, 06-15 mouth. ity of vitamin D3, 11:53: [place] (D3-1999 Medical ORAL) Branch mv,li,iron 0 Yes Take by [facility] ,mn/folic - mouth. ity of acid/chol 11:53: [place] (HAIR-SKIN- 19 Medical NAILS, Branch PABA, ORAL) diphenhydrA 2022-0 Yes 25mg Take 25 mg [facility] MINE 9-23 by mouth ity of (BENADRYL) 11:53: every 6 [place] 25 mg 19 (six) Medical capsule hours as Branch needed for Allergies. mecobalamin 2022-0 Yes Take by [facility] (B12 ACTIVE 06-15 mouth. ity of ORAL) 11:53: [address] Branch cholecalcif 2-0 Yes Take by [facility] deb, 9- mouth. ity of vitamin D3, 11:53: [place] (D3-1999 19 Medical ORAL) Branch mv,li,iron 2021-0 Yes Take by [facility] ,mn/folic 9-23 mouth. ity of acid/chol 11:53: [place] (HAIR-SKIN- 19 Medical NAILS, Branch PABA, ORAL) diphenhydrA 2022-0 Yes 25mg Take 25 mg [facility] MINE 06-15 by mouth ity of (BENADRYL) 11:53: every 6 [place] 25 mg 19 (six) Medical capsule hours as Branch needed for Allergies. mecobalamin 2-0 Yes Take by [facility] (B12 ACTIVE 06-15 mouth. ity of ORAL) 11:53: [address] Branch cholecalcif 0 Yes Take by [facility] deb, 06-15 mouth. ity of vitamin D3, 11:53: [place] (D3 Medical ORAL) Branch mv,li,iron 0 Yes Take by [facility] ,mn/folic 06-15 mouth. ity of acid/chol 11:53: [place] (HAIR-SKIN- 19 Medical NAILS, Branch PABA, ORAL) diphenhydrA 2021-0 Yes 25mg Take 25 mg [facility] MINE 06-15 by mouth ity of (BENADRYL) 11:53: every 6 [place] 25 mg 19 (six) Medical capsule hours as Branch needed for Allergies. mecobalamin 2021-0 Yes Take by [facility] (B12 ACTIVE 06-15 mouth. ity of ORAL) 11:53: [address] Branch cholecalcif 0 Yes Take by [facility] deb, 06-15 mouth. ity of vitamin D3, 11:53: [place] (D3 Medical ORAL) Branch mv,li,iron 0 Yes Take by [facility] ,mn/folic 06-15 mouth. ity of acid/chol 11:53: [place] (HAIR-SKIN- 19 Medical NAILS, Branch PABA, ORAL) diphenhydrA 2021-0 Yes 25mg Take 25 mg [facility] MINE 06-15 by mouth ity of (BENADRYL) 11:53: every 6 [place] 25 mg 19 (six) Medical capsule hours as Branch needed for Allergies. mecobalamin 2-0 Yes Take by [facility] (B12 ACTIVE 06-15 mouth. ity of ORAL) 11:53: [address] Branch cholecalcif 2021-0 Yes Take by [facility] deb, 06-15 mouth. ity of vitamin D3, 11:53: [place] (D3 Medical ORAL) Branch mv,li,iron 0 Yes Take by [facility] ,mn/folic 06-15 mouth. ity of acid/chol 11:53: [place] (HAIR-SKIN- 19 Medical NAILS, Branch PABA, ORAL) diphenhydrA 2022-0 Yes 25mg Take 25 mg [facility] MINE 9-23 by mouth ity of (BENADRYL) 11:53: every 6 [place] 25 mg 19 (six) Medical capsule hours as Branch needed for Allergies. mecobalamin 2022-0 Yes Take by [facility] (B12 ACTIVE 06-15 mouth. ity of ORAL) 11:53: [address] Branch cholecalcif 2021-0 Yes Take by [facility] deb, 06-15 mouth. ity of vitamin D3, 11:53: [place] (D3 Medical ORAL) Branch mv,li,iron 0 Yes Take by [facility] ,mn/folic 06-15 mouth. ity of acid/chol 11:53: [place] (HAIR-SKIN- 19 Medical NAILS, Branch PABA, ORAL) diphenhydrA 2022-0 Yes 25mg Take 25 mg [facility] MINE 06-15 by mouth ity of (BENADRYL) 11:53: every 6 [place] 25 mg 19 (six) Medical capsule hours as Branch needed for Allergies. mecobalamin 2-0 Yes Take by [facility] (B12 ACTIVE 06-15 mouth. ity of ORAL) 11:53: [address] Branch cholecalcif 2021-0 Yes Take by [facility] deb, 06-15 mouth. ity of vitamin D3, 11:53: [place] (D3 Medical ORAL) Branch mv,li,iron 0 Yes Take by [facility] ,mn/folic 06-15 mouth. ity of acid/chol 11:53: [place] (HAIR-SKIN- 19 Medical NAILS, Branch PABA, ORAL) diphenhydrA 2022-0 Yes 25mg Take 25 mg [facility] MINE 9-23 by mouth ity of (BENADRYL) 11:53: every 6 [place] 25 mg 19 (six) Medical capsule hours as Branch needed for Allergies. mecobalamin 2022-0 Yes Take by [facility] (B12 ACTIVE 06-15 mouth. ity of ORAL) 11:53: [address] Branch cholecalcif 2021-0 Yes Take by [facility] deb, 06-15 mouth. ity of vitamin D3, 11:53: [place] (D3-1999 19 Medical ORAL) Branch mv,li,iron 2021-0 Yes Take by [facility] ,mn/folic 06-15 mouth. ity of acid/chol 11:53: [place] (HAIR-SKIN- 19 Medical NAILS, Branch PABA, ORAL) diphenhydrA 2-0 Yes 25mg Take 25 mg [facility] MINE 9-23 by mouth ity of (BENADRYL) 11:53: every 6 [place] 25 mg 19 (six) Medical capsule hours as Branch needed for Allergies. mecobalamin 2-0 Yes Take by [facility] (B12 ACTIVE 06-15 mouth. ity of ORAL) 11:53: [address] Branch cholecalcif 2021-0 Yes Take by [facility] deb, 06-15 mouth. ity of vitamin D3, 11:53: [place] (D3 Medical ORAL) Branch mv,li,iron 0 Yes Take by [facility] ,mn/folic - mouth. ity of acid/chol 11:53: [place] (HAIR-SKIN- 19 Medical NAILS, Branch PABA, ORAL) diphenhydrA 2-0 Yes 25mg Take 25 mg [facility] MINE 9-23 by mouth ity of (BENADRYL) 11:53: every 6 [place] 25 mg 19 (six) Medical capsule hours as Branch needed for Allergies. mecobalamin 2-0 Yes Take by [facility] (B12 ACTIVE 06-15 mouth. ity of ORAL) 11:53: [address] cholecalcif 2021-0 Yes Take by [facility] deb, 06-15 mouth. ity of vitamin D3, 11:53: [place] (D3 Medical ORAL) Branch mv,li,iron 0 Yes Take by [facility] ,mn/folic 06-15 mouth. ity of acid/chol 11:53: [place] (HAIR-SKIN- 19 Medical NAILS, Branch PABA, ORAL) [...] 06-15 mouth. ity of vitamin D3, 11:53: [place] (D3 Medical ORAL) Branch mv,li,iron 0 Yes Take by [facility] ,mn/folic 06-15 mouth. ity of acid/chol 11:53: [place] (HAIR-SKIN- 19 Medical NAILS, Branch PABA, ORAL) diphenhydrA 2-0 Yes 25mg Take 25 mg [facility] MINE 9 by mouth ity of (BENADRYL) 11:53: every 6 [place] 25 mg 19 (six) Medical capsule hours as Branch needed for Allergies. mecobalamin 2021-0 Yes Take by [facility] (B12 ACTIVE 06-15 mouth. ity of ORAL) 11:53: [place] [address] Medical Branch cholecalcif 2021-0 Yes Take by [facility] deb, 06-15 mouth. ity of vitamin D3, 11:53: [place] (D3 Medical ORAL) Branch mv,li,iron 0 Yes Take by [facility] ,mn/folic 06-15 mouth. ity of acid/chol 11:53: [place] (HAIR-SKIN- 19 Medical NAILS, Branch PABA, ORAL) diphenhydrA 2021-0 Yes 25mg Take 25 mg [facility] MINE 06-15 by mouth ity of (BENADRYL) 11:53: every 6 [place] 25 mg 19 (six) Medical capsule hours as Branch needed for Allergies. mecobalamin 2021-0 Yes Take by [facility] (B12 ACTIVE 06-15 mouth. ity of ORAL) 11:53: [address] Branch cholecalcif 2021-0 Yes Take by [facility] deb, 06-15 mouth. ity of vitamin D3, 11:53: [place] (D3 Medical ORAL) Branch mv,li,iron 2021-0 Yes Take by [facility] ,mn/folic 06-15 mouth. ity of acid/chol 11:53: [place] (HAIR-SKIN- 19 Medical NAILS, Branch PABA, ORAL) diphenhydrA 2-0 Yes 25mg Take 25 mg [facility] MINE 9-23 by mouth ity of (BENADRYL) 11:53: every 6 [place] 25 mg 19 (six) Medical capsule hours as Branch needed for Allergies. mecobalamin 2022-0 Yes Take by [facility] (B12 ACTIVE 06-15 mouth. ity of ORAL) 11:53: [place] [address] Medical Branch cholecalcif 2021-0 Yes Take by [facility] deb, 06-15 mouth. ity of vitamin D3, 11:53: [place] (D3 Medical ORAL) Branch mv,li,iron 0 Yes Take by [facility] ,mn/folic - mouth. ity of acid/chol 11:53: [place] (HAIR-SKIN- 19 Medical NAILS, Branch PABA, ORAL) diphenhydrA 2022-0 Yes 25mg Take 25 mg [facility] MINE 9-23 by mouth ity of (BENADRYL) 11:53: every 6 [place] 25 mg 19 (six) Medical capsule hours as Branch needed for Allergies. mecobalamin 2022-0 Yes Take by [facility] (B12 ACTIVE 06-15 mouth. ity of ORAL) 11:53: [place] [address] Medical Branch cholecalcif 2021-0 Yes Take by [facility] deb, 06-15 mouth. ity of vitamin D3, 11:53: [place] (D3 Medical ORAL) Branch mv,li,iron 0 Yes Take by [facility] ,mn/folic 06-15 mouth. ity of acid/chol 11:53: [place] (HAIR-SKIN- 19 Medical NAILS, Branch PABA, ORAL) diphenhydrA 2022-0 Yes 25mg Take 25 mg [facility] MINE 9-23 by mouth ity of (BENADRYL) 11:53: every 6 [place] 25 mg 19 (six) Medical capsule hours as Branch needed for Allergies. mecobalamin 2022-0 Yes Take by [facility] (B12 ACTIVE 06-15 mouth. ity of ORAL) 11:53: [place] [address] Medical Branch cholecalcif 2021-0 Yes Take by [facility] deb, - mouth. ity of vitamin D3, 11:53: [place] (D3 Medical ORAL) Branch mv,li,iron 2021-0 Yes Take by [facility] ,mn/folic 9- mouth. ity of acid/chol 11:53: [place] (HAIR-SKIN- 19 Medical NAILS, Branch PABA, ORAL) diphenhydrA 2022-0 Yes 25mg Take 25 mg [facility] MINE 9-23 by mouth ity of (BENADRYL) 11:53: every 6 [place] 25 mg 19 (six) Medical capsule hours as Branch needed for Allergies. mecobalamin 2021-0 Yes Take by [facility] (B12 ACTIVE 06-15 mouth. ity of ORAL) 11:53: [address] Branch cholecalcif 0 Yes Take by [facility] deb, 06-15 mouth. ity of vitamin D3, 11:53: [place] (D3 Medical ORAL) Branch mv,li,iron 0 Yes Take by [facility] ,mn/folic 06-15 mouth. ity of acid/chol 11:53: [place] (HAIR-SKIN- 19 Medical NAILS, Branch PABA, ORAL) diphenhydrA 2021-0 Yes 25mg Take 25 mg [facility] MINE 06-15 by mouth ity of (BENADRYL) 11:53: every 6 [place] 25 mg 19 (six) Medical capsule hours as Branch needed for Allergies. mecobalamin 2021-0 Yes Take by [facility] (B12 ACTIVE 06-15 mouth. ity of ORAL) 11:53: [address] Branch cholecalcif 0 Yes Take by [facility] deb, 06-15 mouth. ity of vitamin D3, 11:53: [place] (D3 Medical ORAL) Branch mv,li,iron 0 Yes Take by [facility] ,mn/folic - mouth. ity of acid/chol 11:53: [place] (HAIR-SKIN- 19 Medical NAILS, Branch PABA, ORAL) diphenhydrA 2021-0 Yes 25mg Take 25 mg [facility] MINE 06-15 by mouth ity of (BENADRYL) 11:53: every 6 [place] 25 mg 19 (six) Medical capsule hours as Branch needed for Allergies. mecobalamin 2-0 Yes Take by [facility] (B12 ACTIVE 06-15 mouth. ity of ORAL) 11:53: [address] Branch cholecalcif 2021-0 Yes Take by [facility] deb, 06-15 mouth. ity of vitamin D3, 11:53: [place] (D3 Medical ORAL) Branch mv,li,iron 0 Yes Take by [facility] ,mn/folic 06-15 mouth. ity of acid/chol 11:53: [place] (HAIR-SKIN- 19 Medical NAILS, Branch PABA, ORAL) diphenhydrA 2022-0 Yes 25mg Take 25 mg [facility] MINE 9-23 by mouth ity of (BENADRYL) 11:53: every 6 [place] 25 mg 19 (six) Medical capsule hours as Branch needed for Allergies. mecobalamin 2022-0 Yes Take by [facility] (B12 ACTIVE 06-15 mouth. ity of ORAL) 11:53: [place] [address] Medical Branch cholecalcif 2021-0 Yes Take by [facility] deb, - mouth. ity of vitamin D3, 11:53: [place] (D3-1999 19 Medical ORAL) Branch mv,li,iron 0 Yes Take by [facility] ,mn/folic - mouth. ity of acid/chol 11:53: [place] (HAIR-SKIN- 19 Medical NAILS, Branch PABA, ORAL) diphenhydrA 2022-0 Yes 25mg Take 25 mg [facility] MINE 9-23 by mouth ity of (BENADRYL) 11:53: every 6 [place] 25 mg 19 (six) Medical capsule hours as Branch needed for Allergies. mecobalamin 2022-0 Yes Take by [facility] (B12 ACTIVE 06-15 mouth. ity of ORAL) 11:53: [address] Branch cholecalcif 2021-0 Yes Take by [facility] deb, 06-15 mouth. ity of vitamin D3, 11:53: [place] (D3 Medical ORAL) Branch mv,li,iron 0 Yes Take by [facility] ,mn/folic 06-15 mouth. ity of acid/chol 11:53: [place] (HAIR-SKIN- 19 Medical NAILS, Branch PABA, ORAL) diphenhydrA 2022-0 Yes 25mg Take 25 mg [facility] MINE 9-23 by mouth ity of (BENADRYL) 11:53: every 6 [place] 25 mg 19 (six) Medical capsule hours as Branch needed for Allergies. mecobalamin 2022-0 Yes Take by [facility] (B12 ACTIVE 9- mouth. ity of ORAL) 11:53: [address] Branch cholecalcif 2021-0 Yes Take by [facility] deb, - mouth. ity of vitamin D3, 11:53: [place] (D3-2000 19 Medical ORAL) Branch mv,li,iron Yes Take by [facility] ,mn/folic 06-15 mouth. ity of acid/chol 11:53: [place] (HAIR-SKIN- 19 Medical NAILS, Branch PABA, ORAL) diphenhydrA 2-0 Yes 25mg Take 25 mg [facility] MINE 06-15 by mouth ity of (BENADRYL) 11:53: every 6 [place] 25 mg 19 (six) Medical capsule hours as Branch needed for Allergies. mecobalamin 2021-0 Yes Take by [facility] (B12 ACTIVE 06-15 mouth. ity of ORAL) 11:53: [place] [address] Medical Branch cholecalcif Yes Take by [facility] deb, 06-15 mouth. ity of vitamin D3, 11:53: [place] (D3 Medical ORAL) Branch mv,li,iron Yes Take by [facility] ,mn/folic 06-15 mouth. ity of acid/chol 11:53: [place] (HAIR-SKIN- 19 Medical NAILS, Branch PABA, ORAL) diphenhydrA 2021-0 Yes 25mg Take 25 mg [facility] MINE 06-15 by mouth ity of (BENADRYL) 11:53: every 6 [place] 25 mg 19 (six) Medical capsule hours as Branch needed for Allergies. mecobalamin 2021-0 Yes Take by [facility] (B12 ACTIVE 06-15 mouth. ity of ORAL) 11:53: [address] Branch cholecalcif 0 Yes Take by [facility] deb, 06-15 mouth. ity of vitamin D3, 11:53: [place] (D3 Medical ORAL) Branch mv,li,iron Yes Take by [facility] ,mn/folic 06-15 mouth. ity of acid/chol 11:53: [place] (HAIR-SKIN- 19 Medical NAILS, Branch PABA, ORAL) diphenhydrA 2-0 Yes 25mg Take 25 mg [facility] MINE 06-15 by mouth ity of (BENADRYL) 11:53: every 6 [place] 25 mg 19 (six) Medical capsule hours as Branch needed for Allergies. mecobalamin 2-0 Yes Take by [facility] (B12 ACTIVE 06-15 mouth. ity of ORAL) 11:53: [place] [address] Medical Branch cholecalcif 2022-0 Yes Take by [facility] deb, 06-15 mouth. ity of vitamin D3, 11:53: [place] (D3 Medical ORAL) Branch mv,li,iron 2021-0 Yes Take by [facility] ,mn/folic 06-15 mouth. ity of acid/chol 11:53: [place] (HAIR-SKIN- 19 Medical NAILS, Branch PABA, ORAL) diphenhydrA 2022-0 Yes 25mg Take 25 mg [facility] MINE 9 by mouth ity of (BENADRYL) 11:53: every 6 [place] 25 mg 19 (six) Medical capsule hours as Branch needed for Allergies. mecobalamin 2022-0 Yes Take by [facility] (B12 ACTIVE 06-15 mouth. ity of ORAL) 11:53: [place] [address] Medical Branch cholecalcif 2021-0 Yes Take by [facility] deb, 06-15 mouth. ity of vitamin D3, 11:53: [place] (D3 Medical ORAL) Branch mv,li,iron 2021-0 Yes Take by [facility] ,mn/folic 06-15 mouth. ity of acid/chol 11:53: [place] (HAIR-SKIN- 19 Medical NAILS, Branch PABA, ORAL) diphenhydrA 2022-0 Yes 25mg Take 25 mg [facility] MINE 06-15 by mouth ity of (BENADRYL) 11:53: every 6 [place] 25 mg 19 (six) Medical capsule hours as Branch needed for Allergies. mecobalamin 2-0 Yes Take by [facility] (B12 ACTIVE 06-15 mouth. ity of ORAL) 11:53: [place] [address] Medical Branch cholecalcif 2022-0 Yes Take by [facility] deb, 06-15 mouth. ity of vitamin D3, 11:53: [place] (D3 Medical ORAL) Branch mv,li,iron 2021-0 Yes Take by [facility] ,mn/folic 06-15 mouth. ity of acid/chol 11:53: [place] (HAIR-SKIN- 19 Medical NAILS, Branch PABA, ORAL) diphenhydrA 2022-0 Yes 25mg Take 25 mg [facility] MINE 9-23 by mouth ity of (BENADRYL) 11:53: every 6 [place] 25 mg 19 (six) Medical capsule hours as Branch needed for Allergies. mecobalamin 2022-0 Yes Take by [facility] (B12 ACTIVE 06-15 mouth. ity of ORAL) 11:53: [address] Branch cholecalcif 2021-0 Yes Take by [facility] deb, 06-15 mouth. ity of vitamin D3, 11:53: [place] (D3 Medical ORAL) Branch mv,li,iron 0 Yes Take by [facility] ,mn/folic - mouth. ity of acid/chol 11:53: [place] (HAIR-SKIN- 19 Medical NAILS, Branch PABA, ORAL) diphenhydrA 2022-0 Yes 25mg Take 25 mg [facility] MINE 9-23 by mouth ity of (BENADRYL) 11:53: every 6 [place] 25 mg 19 (six) Medical capsule hours as Branch needed for Allergies. mecobalamin 2-0 Yes Take by [facility] (B12 ACTIVE 06-15 mouth. ity of ORAL) 11:53: [address] cholecalcif 2021-0 Yes Take by [facility] deb, 06-15 mouth. ity of vitamin D3, 11:53: [place] (D3 Medical ORAL) Branch mv,li,iron 0 Yes Take by [facility] ,mn/folic - mouth. ity of acid/chol 11:53: [place] (HAIR-SKIN- 19 Medical NAILS, Branch PABA, ORAL) diphenhydrA 2-0 Yes 25mg Take 25 mg [facility] MINE - by mouth ity of (BENADRYL) 11:53: every 6 [place] 25 mg 19 (six) Medical capsule hours as Branch needed for Allergies. mecobalamin 2-0 Yes Take by [facility] (B12 ACTIVE 06-15 mouth. ity of ORAL) 11:53: [address] Branch cholecalcif 2021-0 Yes Take by [facility] deb, - mouth. ity of vitamin D3, 11:53: [place] (D3 Medical ORAL) Branch mv,li,iron 0 Yes Take by [facility] ,mn/folic - mouth. ity of acid/chol 11:53: [place] (HAIR-SKIN- 19 Medical NAILS, Branch PABA, ORAL) diphenhydrA 2-0 Yes 25mg Take 25 mg [facility] MINE 9-23 by mouth ity of (BENADRYL) 11:53: every 6 [place] 25 mg 19 (six) Medical capsule hours as Branch needed for Allergies. mecobalamin 2022-0 Yes Take by [facility] (B12 ACTIVE 06-15 mouth. ity of ORAL) 11:53: [place] [address] Medical Branch cholecalcif 2021-0 Yes Take by [facility] deb, 06-15 mouth. ity of vitamin D3, 11:53: [place] (D3-1999 19 Medical ORAL) Branch mv,li,iron 2021-0 Yes Take by [facility] ,mn/folic 06-15 mouth. ity of acid/chol 11:53: [place] (HAIR-SKIN- 19 Medical NAILS, Branch PABA, ORAL) diphenhydrA 2-0 Yes 25mg Take 25 mg [facility] MINE 06-15 by mouth ity of (BENADRYL) 11:53: every 6 [place] 25 mg 19 (six) Medical capsule hours as Branch needed for Allergies. mecobalamin 2-0 Yes Take by [facility] (B12 ACTIVE 06-15 mouth. ity of ORAL) 11:53: [place] [address] Medical Branch cholecalcif 2021-0 Yes Take by [facility] deb, 06-15 mouth. ity of vitamin D3, 11:53: [place] (D3 Medical ORAL) Branch mv,li,iron 0 Yes Take by [facility] ,mn/folic - mouth. ity of acid/chol 11:53: [place] (HAIR-SKIN- 19 Medical NAILS, Branch PABA, ORAL) diphenhydrA 2-0 Yes 25mg Take 25 mg [facility] MINE 06-15 by mouth ity of (BENADRYL) 11:53: every 6 [place] 25 mg 19 (six) Medical capsule hours as Branch needed for Allergies. mecobalamin 2022-0 Yes Take by [facility] (B12 ACTIVE 06-15 mouth. ity of ORAL) 11:53: [place] [address] Medical Branch cholecalcif 2021-0 Yes Take by [facility] deb, 06-15 mouth. ity of vitamin D3, 11:53: [place] (D3-1999 19 Medical ORAL) Branch mv,li,iron 202-0 Yes Take by [facility] ,mn/folic - mouth. ity of acid/chol 11:53: [place] (HAIR-SKIN- 19 Medical NAILS, Branch PABA, ORAL) diphenhydrA 2022-0 Yes 25mg Take 25 mg [facility] MINE 9-23 by mouth ity of (BENADRYL) 11:53: every 6 [place] 25 mg 19 (six) Medical capsule hours as Branch needed for Allergies. mecobalamin 2022-0 Yes Take by [facility] (B12 ACTIVE 06-15 mouth. ity of ORAL) 11:53: [place] [address] Medical Branch cholecalcif 2021-0 Yes Take by [facility] deb, 06-15 mouth. ity of vitamin D3, 11:53: [place] (D3 Medical ORAL) Branch mv,li,iron 202-0 Yes Take by [facility] ,mn/folic 06-15 mouth. ity of acid/chol 11:53: [place] (HAIR-SKIN- 19 Medical NAILS, Branch PABA, ORAL) diphenhydrA 2022-0 Yes 25mg Take 25 mg [facility] MINE 9-23 by mouth ity of (BENADRYL) 11:53: every 6 [place] 25 mg 19 (six) Medical capsule hours as Branch needed for Allergies. mecobalamin 2022-0 Yes Take by [facility] (B12 ACTIVE 06-15 mouth. ity of ORAL) 11:53: [address] Branch cholecalcif 2021-0 Yes Take by [facility] deb, 06-15 mouth. ity of vitamin D3, 11:53: [place] (D3 Medical ORAL) Branch mv,li,iron 2021-0 Yes Take by [facility] ,mn/folic 06-15 mouth. ity of acid/chol 11:53: [place] (HAIR-SKIN- 19 Medical NAILS, Branch PABA, ORAL) diphenhydrA 2022-0 Yes 25mg Take 25 mg [facility] MINE 9-23 by mouth ity of (BENADRYL) 11:53: every 6 [place] 25 mg 19 (six) Medical capsule hours as Branch needed for Allergies. mecobalamin 2022-0 Yes Take by [facility] (B12 ACTIVE 06-15 mouth. ity of ORAL) 11:53: [address] Branch cholecalcif 2-0 Yes Take by [facility] deb, 06-15 mouth. ity of vitamin D3, 11:53: [place] (D3 Medical ORAL) Branch mv,li,iron 2022-0 Yes Take by [facility] ,mn/folic 06-15 mouth. ity of acid/chol 11:53: [place] (HAIR-SKIN- 19 Medical NAILS, Branch PABA, ORAL) diphenhydrA 2-0 Yes 25mg Take 25 mg [facility] MINE 06-15 by mouth ity of (BENADRYL) 11:53: every 6 [place] 25 mg 19 (six) Medical capsule hours as Branch needed for Allergies. mecobalamin 2-0 Yes Take by [facility] vers (B12 ACTIVE 06-15 mouth. ity of ORAL) 11:53: [address] Branch cholecalcif 2021-0 Yes Take by [facility] vers deb, 06-15 mouth. ity of vitamin D3, 11:53: [place] (D3-1999 Medical ORAL) Branch mv,li,iron 0 Yes Take by [facility] vers ,mn/folic 06-15 mouth. ity of acid/chol 11:53: [place] (HAIR-SKIN- 19 Medical NAILS, Branch PABA, ORAL) diphenhydrA 2-0 Yes 25mg Take 25 mg [facility] MINE 06-15 by mouth ity of (BENADRYL) 11:53: every 6 [place] 25 mg 19 (six) Medical capsule hours as Branch needed for Allergies. mecobalamin 2-0 Yes Take by [facility] vers (B12 ACTIVE 06-15 mouth. ity of ORAL) 11:53: [address] Branch cholecalcif 2021-0 Yes Take by [facility] vers deb, 06-15 mouth. ity of vitamin D3, 11:53: [place] (D3 Medical ORAL) Branch mv,li,iron 0 Yes Take by [facility] vers ,mn/folic 06-15 mouth. ity of acid/chol 11:53: [place] (HAIR-SKIN- 19 Medical NAILS, Branch PABA, ORAL) diphenhydrA 2022-0 Yes 25mg Take 25 mg [facility] MINE 9 by mouth ity of (BENADRYL) 11:53: every 6 [place] 25 mg 19 (six) Medical capsule hours as Branch needed for Allergies. mecobalamin 2022-0 Yes Take by [facility] vers (B12 ACTIVE 06-15 mouth. ity of ORAL) 11:53: [address] Branch cholecalcif 2021-0 Yes Take by [facility] vers deb, 06-15 mouth. ity of vitamin D3, 11:53: [place] (D3 Medical ORAL) Branch mv,li,iron 2021-0 Yes Take by [facility] vers ,mn/folic 06-15 mouth. ity of acid/chol 11:53: [place] (HAIR-SKIN- 19 Medical NAILS, Branch PABA, ORAL) diphenhydrA 2022-0 Yes 25mg Take 25 mg [facility] MINE 9-23 by mouth ity of (BENADRYL) 11:53: every 6 [place] 25 mg 19 (six) Medical capsule hours as Branch needed for Allergies. mecobalamin 2-0 Yes Take by [facility] vers (B12 ACTIVE 06-15 mouth. ity of ORAL) 11:53: [place] [address] Medical Branch cholecalcif 2021-0 Yes Take by [facility] vers deb, 06-15 mouth. ity of vitamin D3, 11:53: [place] (D3 Medical ORAL) Branch mv,li,iron 0 Yes Take by [facility] vers ,mn/folic 06-15 mouth. ity of acid/chol 11:53: [place] (HAIR-SKIN- 19 Medical NAILS, Branch PABA, ORAL) diphenhydrA 2-0 Yes 25mg Take 25 mg [facility] MINE 9- by mouth ity of (BENADRYL) 11:53: every 6 [place] 25 mg 19 (six) Medical capsule hours as Branch needed for Allergies. mecobalamin 2-0 Yes Take by [facility] vers (B12 ACTIVE 06-15 mouth. ity of ORAL) 11:53: [address] Branch cholecalcif 2021-0 Yes Take by [facility] vers deb, 06-15 mouth. ity of vitamin D3, 11:53: [place] (D3 Medical ORAL) Branch mv,li,iron 2021-0 Yes Take by [facility] vers ,mn/folic 06-15 mouth. ity of acid/chol 11:53: [place] (HAIR-SKIN- 19 Medical NAILS, Branch PABA, ORAL) diphenhydrA 2022-0 Yes 25mg Take 25 mg [facility] MINE 9-23 by mouth ity of (BENADRYL) 11:53: every 6 [place] 25 mg 19 (six) Medical capsule hours as Branch needed for Allergies. mecobalamin 2022-0 Yes Take by [facility] vers (B12 ACTIVE 9-23 mouth. ity of ORAL) 11:53: [place] [facility] cholecalcif 2021-0 Yes Take by [facility] vers deb, 06-15 mouth. ity of vitamin D3, 11:53: [place] (D3-1999 Medical ORAL) Branch mv,li,iron 2021-0 Yes Take by [facility] vers ,mn/folic 06-15 mouth. ity of acid/chol 11:53: [place] (HAIR-SKIN- Medical NAILS, Branch PABA, ORAL) cephALEXin 2021-0 Yes [facility] 250 mg/5 mL -19 ity of suspension 00:00: [place] [facility] cephALEXin 2-0 Yes [facility] 250 mg/5 mL -19 ity of suspension 00:00: [place] [address] Medical Branch cephALEXin 2-0 Yes [facility] 250 mg/5 mL 9-19 ity of suspension 00:00: [place] [address] Medical Branch cephALEXin 2-0 Yes [facility] 250 mg/5 mL 9-19 ity of suspension 00:00: [place] [address] Medical Branch cephALEXin 2-0 Yes [facility] 250 mg/5 mL 9-19 ity of suspension 00:00: [place] [address] Medical Branch cephALEXin 2-0 Yes [facility] 250 mg/5 mL 9-19 ity of suspension 00:00: [place] [address] Medical Branch cephALEXin 2-0 Yes [facility] 250 mg/5 mL 9-19 ity of suspension 00:00: [place] [address] Medical Branch cephALEXin 2022-0 Yes [facility] 250 mg/5 mL 9-19 ity of suspension 00:00: [place] [address] Medical Branch cephALEXin 2022-0 Yes [facility] 250 mg/5 mL 9-19 ity of suspension 00:00: [place] [address] Medical Branch cephALEXin 2022-0 Yes [facility] 250 mg/5 mL 9-19 ity of suspension 00:00: [place] [address] Medical Branch cephALEXin 2022-0 Yes [facility] 250 mg/5 mL 9-19 ity of suspension 00:00: [place] [address] Medical Branch cephALEXin 2022-0 Yes [facility] 250 mg/5 mL 9-19 ity of suspension 00:00: [place] [address] Medical Branch cephALEXin 2022-0 Yes [facility] 250 mg/5 mL 9-19 ity of suspension 00:00: [place] [address] Medical Branch cephALEXin 2022-0 Yes [facility] 250 mg/5 mL 9-19 ity of suspension 00:00: [place] 00 Medical Branch cephALEXin 2022-0 Yes [facility] 250 mg/5 mL 9-19 ity of suspension 00:00: [place] [address] Medical Branch cephALEXin 2022-0 Yes [facility] 250 mg/5 mL 9-19 ity of suspension 00:00: [place] [address] Medical Branch cephALEXin 2022-0 Yes [facility] 250 mg/5 mL 9-19 ity of suspension 00:00: [place] [address] Medical Branch cephALEXin 2022-0 Yes [facility] 250 mg/5 mL 9-19 ity of suspension 00:00: [place] [address] Medical Branch cephALEXin 2022-0 Yes [facility] 250 mg/5 mL 9-19 ity of suspension 00:00: [place] [address] Medical Branch cephALEXin 2022-0 Yes [facility] 250 mg/5 mL 9-19 ity of suspension 00:00: [place] [address] Medical Branch cephALEXin 2022-0 Yes [facility] 250 mg/5 mL 9-19 ity of suspension 00:00: [place] [address] Medical Branch cephALEXin 2022-0 Yes [facility] 250 mg/5 mL 9-19 ity of suspension 00:00: [place] [address] Medical Branch cephALEXin 2022-0 Yes [facility] 250 mg/5 mL 9-19 ity of suspension 00:00: [place] [address] Medical Branch cephALEXin 2022-0 Yes [facility] 250 mg/5 mL 9-19 ity of suspension 00:00: [place] [address] Medical Branch cephALEXin 2022-0 Yes [facility] 250 mg/5 mL 9-19 ity of suspension 00:00: [place] [address] Medical Branch cephALEXin 2022-0 Yes [facility] 250 mg/5 mL 9-19 ity of suspension 00:00: [place] [address] Medical Branch cephALEXin 2022-0 Yes [facility] 250 mg/5 mL 9-19 ity of suspension 00:00: [place] [address] Medical Branch cephALEXin 2022-0 Yes [facility] 250 mg/5 mL 9-19 ity of suspension 00:00: [place] [address] Medical Branch cephALEXin 2022-0 Yes [facility] 250 mg/5 mL 9-19 ity of suspension 00:00: [place] [address] Medical Branch cephALEXin 2022-0 Yes [facility] 250 mg/5 mL 9-19 ity of suspension 00:00: [place] [address] Medical Branch cephALEXin 2022-0 Yes [facility] 250 mg/5 mL 9-19 ity of suspension 00:00: [place] [address] Medical Branch cephALEXin 2022-0 Yes [facility] 250 mg/5 mL 9-19 ity of suspension 00:00: [place] [address] Medical Branch cephALEXin 2022-0 Yes [facility] 250 mg/5 mL 9-19 ity of suspension 00:00: [place] [address] Medical Branch cephALEXin 2022-0 Yes [facility] 250 mg/5 mL 9-19 ity of suspension 00:00: [place] [address] Medical Branch cephALEXin 2022-0 Yes [facility] 250 mg/5 mL 9-19 ity of suspension 00:00: [place] [address] Medical Branch cephALEXin 2022-0 Yes [facility] 250 mg/5 mL 9-19 ity of suspension 00:00: [place] [address] Medical Branch cephALEXin 2022-0 Yes [facility] 250 mg/5 mL 9-19 ity of suspension 00:00: [place] [address] Medical Branch cephALEXin 2022-0 Yes [facility] 250 mg/5 mL 9-19 ity of suspension 00:00: [place] [address] Medical Branch cephALEXin 2022-0 Yes [facility] 250 mg/5 mL 9-19 ity of suspension 00:00: [place] [address] Medical Branch cephALEXin 2022-0 Yes [facility] 250 mg/5 mL 9-19 ity of suspension 00:00: [place] [address] Medical Branch cephALEXin 2022-0 Yes [facility] 250 mg/5 mL 9-19 ity of suspension 00:00: [place] [address] Medical Branch cephALEXin 2022-0 Yes [facility] 250 mg/5 mL 9-19 ity of suspension 00:00: [place] [address] Medical Branch cephALEXin 2022-0 Yes [facility] 250 mg/5 mL 9-19 ity of suspension 00:00: [place] [address] Medical Branch cephALEXin 2022-0 Yes [facility] 250 mg/5 mL 9-19 ity of suspension 00:00: [place] [address] Medical Branch cephALEXin 2022-0 Yes [facility] 250 mg/5 mL 9-19 ity of suspension 00:00: [place] [address] Medical Branch cephALEXin 2022-0 Yes [facility] 250 mg/5 mL 9-19 ity of suspension 00:00: [place] [address] Medical Branch cephALEXin 2022-0 Yes [facility] 250 mg/5 mL 9-19 ity of suspension 00:00: [place] [address] Medical Branch cephALEXin 2022-0 Yes [facility] 250 mg/5 mL 9-19 ity of suspension 00:00: [place] [address] Medical Branch cephALEXin 2022-0 Yes [facility] 250 mg/5 mL 9-19 ity of suspension 00:00: [place] [address] Medical Branch cephALEXin 2022-0 Yes [facility] 250 mg/5 mL 9-19 ity of suspension 00:00: [place] [address] Medical Branch cephALEXin 2022-0 Yes [facility] 250 mg/5 mL 9-19 ity of suspension 00:00: [place] [address] Medical Branch cephALEXin 2022-0 Yes [facility] 250 mg/5 mL 9-19 ity of suspension 00:00: [place] 00 Medical Branch cephALEXin 2022-0 Yes [facility] 250 mg/5 mL 9-19 ity of suspension 00:00: [place] [address] Medical Branch cephALEXin 2022-0 Yes [facility] 250 mg/5 mL 9-19 ity of suspension 00:00: [place] [address] Medical Branch cephALEXin 2022-0 Yes [facility] 250 mg/5 mL 9-19 ity of suspension 00:00: [place] [address] Medical Branch cephALEXin 2022-0 Yes [facility] 250 mg/5 mL 9-19 ity of suspension 00:00: [place] [address] Medical Branch cephALEXin 2022-0 Yes [facility] 250 mg/5 mL 9-19 ity of suspension 00:00: [place] [address] Medical Branch cephALEXin 2022-0 Yes [facility] 250 mg/5 mL 9-19 ity of suspension 00:00: [place] [address] Medical Branch cephALEXin 2022-0 Yes [facility] 250 mg/5 mL 9-19 ity of suspension 00:00: [place] [address] Medical Branch cephALEXin 2022-0 Yes [facility] 250 mg/5 mL 9-19 ity of suspension 00:00: [place] [address] Medical Branch cephALEXin 2022-0 Yes [facility] 250 mg/5 mL 9-19 ity of suspension 00:00: [place] [address] Medical Branch cephALEXin 2022-0 Yes [facility] 250 mg/5 mL 9-19 ity of suspension 00:00: [place] [address] Medical Branch cephALEXin 2022-0 Yes [facility] 250 mg/5 mL 9-19 ity of suspension 00:00: [place] [address] Medical Branch cephALEXin 2022-0 Yes [facility] 250 mg/5 mL 9-19 ity of suspension 00:00: [place] [address] Medical Branch cephALEXin 2022-0 Yes [facility] 250 mg/5 mL 9-19 ity of suspension 00:00: [place] [address] Medical Branch cephALEXin 2022-0 Yes [facility] 250 mg/5 mL 9-19 ity of suspension 00:00: [place] [address] Medical Branch cephALEXin 2022-0 Yes [facility] 250 mg/5 mL 9-19 ity of suspension 00:00: [place] [address] Medical Branch cephALEXin 2022-0 Yes [facility] 250 mg/5 mL 9-19 ity of suspension 00:00: Medical Branch cephALEXin 2-0 Yes [facility] 250 mg/5 mL 9-19 ity of suspension 00:00: Medical Branch cephALEXin 2-0 Yes [facility] 250 mg/5 mL 9-19 ity of suspension 00:00: Medical Branch Sucralfate 2021-0 Yes 1g Take 10 mL [facility] (Carafate) 9-16 (1 g [place] 1 GM/10ML 00:00: total) by - oral 00 mouth Externa Suspension before l meals and at bedtime Sucralfate 2021-0 Yes 1g Take 10 mL [facility] (Carafate) 9-16 (1 g [place] 1 GM/10ML 00:00: total) by - oral 00 mouth Externa Suspension before l meals and at bedtime Sucralfate 2021-0 Yes 1g Take 10 mL [facility] (Carafate) 9-16 (1 g [place] 1 GM/10ML 00:00: total) by - oral 00 mouth Externa Suspension before l meals and at bedtime lactulose 2-0 Yes [id number] 30mL Take 30 mL [facility] 10 gram/15 9-16 by mouth ity o f mL oral 00:00: daily. [place] solution [facility] sucralfate 2-0 Yes [id number] 1000mg Take 10 mL [facility] 100 mg/mL 9-16 by mouth ity of suspension 00:00: before [place] meals and Medical at [place] bedtime. lactulose 2-0 Yes [id number] 30mL Take 30 mL [facility] 10 gram/15 9-16 by mouth ity o f mL oral 00:00: daily. [place] solution [facility] sucralfate 2-0 Yes [id number] 1000mg Take 10 mL [facility] 100 mg/mL 9-16 by mouth ity of suspension 00:00: before [place] meals and Medical at [place] bedtime. lactulose 2022-0 Yes [id number] 30mL Take 30 mL [facility] 10 gram/15 9-16 by mouth ity o f mL oral 00:00: daily. [place] solution [facility] sucralfate 2-0 Yes [id number] 1000mg Take 10 mL [facility] 100 mg/mL 9-16 by mouth ity of suspension 00:00: before [place] 00 meals and Medical at [place] bedtime. lactulose 2-0 Yes [id number] 30mL Take 30 mL [facility] 10 gram/15 9-16 by mouth ity o f mL oral 00:00: daily. [place] solution 00 Medical Branch sucralfate 2021-0 Yes [id number] 1000mg Take 10 mL [facility] 100 mg/mL 9-16 by mouth ity of suspension 00:00: before [place] 00 meals and Medical at Branch bedtime. lactulose 2021-0 Yes [id number] 30mL Take 30 mL [facility] 10 gram/15 9-16 by mouth ity o f mL oral 00:00: daily. [place] solution 00 Medical [place] sucralfate 2021-0 Yes [id number] 1000mg Take 10 mL [facility] 100 mg/mL 9-16 by mouth ity of suspension 00:00: before [place] 00 meals and Medical at Branch bedtime. lactulose 2021-0 Yes [id number] 30mL Take 30 mL [facility] 10 gram/15 9-16 by mouth ity o f mL oral 00:00: daily. [place] solution [address] [facility] sucralfate 2021-0 Yes [id number] 1000mg Take 10 mL [facility] 100 mg/mL 9-16 by mouth ity of suspension 00:00: before [place] 00 meals and Medical at Branch bedtime. lactulose 2021-0 Yes [id number] 30mL Take 30 mL [facility] 10 gram/15 9-16 by mouth ity o f mL oral 00:00: daily. [place] solution [address] [facility] sucralfate 2021-0 Yes [id number] 1000mg Take 10 mL [facility] 100 mg/mL 9-16 by mouth ity of suspension 00:00: before [place] 00 meals and Medical at Branch bedtime. lactulose 2-0 Yes [id number] 30mL Take 30 mL [facility] 10 gram/15 9-16 by mouth ity o f mL oral 00:00: daily. [place] solution [address] [facility] sucralfate 2-0 Yes [id number] 1000mg Take 10 mL [facility] 100 mg/mL 9-16 by mouth ity of suspension 00:00: before [place] 00 meals and Medical at Branch bedtime. lactulose 2-0 Yes [id number] 30mL Take 30 mL [facility] 10 gram/15 9-16 by mouth ity o f mL oral 00:00: daily. [place] solution [address] [facility] sucralfate 2022-0 Yes [id number] 1000mg Take 10 mL [facility] 100 mg/mL 9-16 by mouth ity of suspension 00:00: before [place] 00 meals and Medical at Branch bedtime. lactulose 2-0 Yes [id number] 30mL Take 30 mL [facility] 10 gram/15 9-16 by mouth ity o f mL oral 00:00: daily. [place] solution [address] [facility] sucralfate 2-0 Yes [id number] 1000mg Take 10 mL [facility] 100 mg/mL 9-16 by mouth ity of suspension 00:00: before [place] 00 meals and Medical at Branch bedtime. lactulose 2-0 Yes [id number] 30mL Take 30 mL [facility] 10 gram/15 9-16 by mouth ity o f mL oral 00:00: daily. [place] solution [address] [facility] sucralfate 2021-0 Yes [id number] 1000mg Take 10 mL [facility] 100 mg/mL 9-16 by mouth ity of suspension 00:00: before [place] 00 meals and Medical at Branch bedtime. lactulose 2-0 Yes [id number] 30mL Take 30 mL [facility] 10 gram/15 9-16 by mouth ity o f mL oral 00:00: daily. [place] solution [address] [facility] sucralfate 2-0 Yes [id number] 1000mg Take 10 mL [facility] 100 mg/mL 9-16 by mouth ity of suspension 00:00: before [place] 00 meals and Medical at Branch bedtime. lactulose 2021-0 Yes [id number] 30mL Take 30 mL [facility] 10 gram/15 9-16 by mouth ity o f mL oral 00:00: daily. [place] solution [address] [facility] sucralfate 2-0 Yes [id number] 1000mg Take 10 mL [facility] 100 mg/mL 9-16 by mouth ity of suspension 00:00: before [place] 00 meals and Medical at Branch bedtime. lactulose 2-0 Yes [id number] 30mL Take 30 mL [facility] 10 gram/15 9-16 by mouth ity o f mL oral 00:00: daily. [place] solution [address] [facility] sucralfate 2-0 Yes [id number] 1000mg Take 10 mL [facility] 100 mg/mL 9-16 by mouth ity of suspension 00:00: before [place] 00 meals and Medical at Branch bedtime. lactulose 2-0 Yes [id number] 30mL Take 30 mL [facility] 10 gram/15 9-16 by mouth ity o f mL oral 00:00: daily. [place] solution [address] [facility] sucralfate 2-0 Yes [id number] 1000mg Take 10 mL [facility] 100 mg/mL 9-16 by mouth ity of suspension 00:00: before [place] 00 meals and Medical at Branch bedtime. lactulose 2-0 Yes [id number] 30mL Take 30 mL [facility] 10 gram/15 9-16 by mouth ity o f mL oral 00:00: daily. [place] solution [address] [facility] sucralfate 2021-0 Yes [id number] 1000mg Take 10 mL [facility] 100 mg/mL 9-16 by mouth ity of suspension 00:00: before [place] 00 meals and Medical at Branch bedtime. lactulose 2021-0 Yes [id number] 30mL Take 30 mL [facility] 10 gram/15 9-16 by mouth ity o f mL oral 00:00: daily. [place] solution [address] [facility] sucralfate 2-0 Yes [id number] 1000mg Take 10 mL [facility] 100 mg/mL 9-16 by mouth ity of suspension 00:00: before [place] 00 meals and Medical at Branch bedtime. lactulose 2021-0 Yes [id number] 30mL Take 30 mL [facility] 10 gram/15 9-16 by mouth ity o f mL oral 00:00: daily. [place] solution [address] [facility] sucralfate 2021-0 Yes [id number] 1000mg Take 10 mL [facility] 100 mg/mL 9-16 by mouth ity of suspension 00:00: before [place] 00 meals and Medical at Branch bedtime. lactulose 2-0 Yes [id number] 30mL Take 30 mL [facility] 10 gram/15 9-16 by mouth ity o f mL oral 00:00: daily. [place] solution [address] [facility] sucralfate 2-0 Yes [id number] 1000mg Take 10 mL [facility] 100 mg/mL 9-16 by mouth ity of suspension 00:00: before [place] 00 meals and Medical at Branch bedtime. lactulose 2-0 Yes [id number] 30mL Take 30 mL [facility] 10 gram/15 9-16 by mouth ity o f mL oral 00:00: daily. [place] solution [address] [facility] sucralfate 2-0 Yes [id number] 1000mg Take 10 mL [facility] 100 mg/mL 9-16 by mouth ity of suspension 00:00: before [place] 00 meals and Medical at Branch bedtime. lactulose 2022-0 Yes [id number] 30mL Take 30 mL [facility] 10 gram/15 9-16 by mouth ity o f mL oral 00:00: daily. [place] solution 00 [facility] [place] sucralfate 2-0 Yes [id number] 1000mg Take 10 mL [facility] 100 mg/mL 9-16 by mouth ity of suspension 00:00: before [place] 00 meals and Medical at Branch bedtime. lactulose 2-0 Yes [id number] 30mL Take 30 mL [facility] 10 gram/15 9-16 by mouth ity o f mL oral 00:00: daily. [place] solution [address] [facility] sucralfate 2-0 Yes [id number] 1000mg Take 10 mL [facility] 100 mg/mL 9-16 by mouth ity of suspension 00:00: before [place] 00 meals and Medical at Branch bedtime. lactulose 2-0 Yes [id number] 30mL Take 30 mL [facility] 10 gram/15 9-16 by mouth ity o f mL oral 00:00: daily. [place] solution [address] [facility] sucralfate 2-0 Yes [id number] 1000mg Take 10 mL [facility] 100 mg/mL 9-16 by mouth ity of suspension 00:00: before [place] 00 meals and Medical at Branch bedtime. lactulose 2-0 Yes [id number] 30mL Take 30 mL [facility] 10 gram/15 9-16 by mouth ity o f mL oral 00:00: daily. [place] solution [address] [facility] sucralfate 2-0 Yes [id number] 1000mg Take 10 mL [facility] 100 mg/mL 9-16 by mouth ity of suspension 00:00: before [place] 00 meals and Medical at Branch bedtime. lactulose 2-0 Yes [id number] 30mL Take 30 mL [facility] 10 gram/15 9-16 by mouth ity o f mL oral 00:00: daily. [place] solution [address] [facility] sucralfate 2-0 Yes [id number] 1000mg Take 10 mL [facility] 100 mg/mL 9-16 by mouth ity of suspension 00:00: before [place] 00 meals and Medical at Branch bedtime. lactulose 2-0 Yes [id number] 30mL Take 30 mL [facility] 10 gram/15 9-16 by mouth ity o f mL oral 00:00: daily. [place] solution 00 [facility] sucralfate 2-0 Yes [id number] 1000mg Take 10 mL [facility] 100 mg/mL 9-16 by mouth ity of suspension 00:00: before [place] 00 meals and Medical at Branch bedtime. lactulose 2-0 Yes [id number] 30mL Take 30 mL [facility] 10 gram/15 9-16 by mouth ity o f mL oral 00:00: daily. [place] solution 00 Medical [place] sucralfate 2-0 Yes [id number] 1000mg Take 10 mL [facility] 100 mg/mL 9-16 by mouth ity of suspension 00:00: before [place] 00 meals and Medical at Branch bedtime. lactulose 2-0 Yes [id number] 30mL Take 30 mL [facility] 10 gram/15 9-16 by mouth ity o f mL oral 00:00: daily. [place] solution [address] [facility] sucralfate 2021-0 Yes [id number] 1000mg Take 10 mL [facility] 100 mg/mL 9-16 by mouth ity of suspension 00:00: before [place] 00 meals and Medical at Branch bedtime. lactulose 2-0 Yes [id number] 30mL Take 30 mL [facility] 10 gram/15 9-16 by mouth ity o f mL oral 00:00: daily. [place] solution [address] [facility] sucralfate 2-0 Yes [id number] 1000mg Take 10 mL [facility] 100 mg/mL 9-16 by mouth ity of suspension 00:00: before [place] 00 meals and Medical at Branch bedtime. lactulose 2-0 Yes [id number] 30mL Take 30 mL [facility] 10 gram/15 9-16 by mouth ity o f mL oral 00:00: daily. [place] solution [address] [facility] sucralfate 2-0 Yes [id number] 1000mg Take 10 mL [facility] 100 mg/mL 9-16 by mouth ity of suspension 00:00: before [place] 00 meals and Medical at Branch bedtime. lactulose 2-0 Yes [id number] 30mL Take 30 mL [facility] 10 gram/15 9-16 by mouth ity o f mL oral 00:00: daily. [place] solution [address] [facility] sucralfate 2-0 Yes [id number] 1000mg Take 10 mL [facility] 100 mg/mL 9-16 by mouth ity of suspension 00:00: before [place] 00 meals and Medical at Branch bedtime. lactulose 2-0 Yes [id number] 30mL Take 30 mL [facility] 10 gram/15 9-16 by mouth ity o f mL oral 00:00: daily. [place] solution 00 [facility] [place] sucralfate 2021-0 Yes [id number] 1000mg Take 10 mL [facility] 100 mg/mL 9-16 by mouth ity of suspension 00:00: before [place] 00 meals and Medical at Branch bedtime. lactulose 2021-0 Yes [id number] 30mL Take 30 mL [facility] 10 gram/15 9-16 by mouth ity o f mL oral 00:00: daily. [place] solution [address] [facility] sucralfate 2021-0 Yes [id number] 1000mg Take 10 mL [facility] 100 mg/mL 9-16 by mouth ity of suspension 00:00: before [place] 00 meals and Medical at Branch bedtime. lactulose 2021-0 Yes [id number] 30mL Take 30 mL [facility] 10 gram/15 9-16 by mouth ity o f mL oral 00:00: daily. [place] solution [address] [facility] sucralfate 2021-0 Yes [id number] 1000mg Take 10 mL [facility] 100 mg/mL 9-16 by mouth ity of suspension 00:00: before [place] 00 meals and Medical at Branch bedtime. lactulose 2021-0 Yes [id number] 30mL Take 30 mL [facility] 10 gram/15 9-16 by mouth ity o f mL oral 00:00: daily. [place] solution [address] [facility] sucralfate 2021-0 Yes [id number] 1000mg Take 10 mL [facility] 100 mg/mL 9-16 by mouth ity of suspension 00:00: before [place] 00 meals and Medical at Branch bedtime. lactulose 2021-0 Yes [id number] 30mL Take 30 mL [facility] 10 gram/15 9-16 by mouth ity o f mL oral 00:00: daily. [place] solution [address] [facility] sucralfate 2021-0 Yes [id number] 1000mg Take 10 mL [facility] 100 mg/mL 9-16 by mouth ity of suspension 00:00: before [place] 00 meals and Medical at Branch bedtime. lactulose 2021-0 Yes [id number] 30mL Take 30 mL [facility] 10 gram/15 9-16 by mouth ity o f mL oral 00:00: daily. [place] solution [address] [facility] sucralfate 2021-0 Yes [id number] 1000mg Take 10 mL [facility] 100 mg/mL 9-16 by mouth ity of suspension 00:00: before [place] 00 meals and Medical at Branch bedtime. lactulose 2-0 Yes [id number] 30mL Take 30 mL [facility] 10 gram/15 9-16 by mouth ity o f mL oral 00:00: daily. [place] solution [address] [facility] sucralfate 2-0 Yes [id number] 1000mg Take 10 mL [facility] 100 mg/mL 9-16 by mouth ity of suspension 00:00: before [place] 00 meals and Medical at Branch bedtime. lactulose 2-0 Yes [id number] 30mL Take 30 mL [facility] 10 gram/15 9-16 by mouth ity o f mL oral 00:00: daily. [place] solution [address] [facility] sucralfate 2021-0 Yes [id number] 1000mg Take 10 mL [facility] 100 mg/mL 9-16 by mouth ity of suspension 00:00: before [place] 00 meals and Medical at Branch bedtime. lactulose 2021-0 Yes [id number] 30mL Take 30 mL [facility] 10 gram/15 9-16 by mouth ity o f mL oral 00:00: daily. [place] solution [address] [facility] sucralfate 2021-0 Yes [id number] 1000mg Take 10 mL [facility] 100 mg/mL 9-16 by mouth ity of suspension 00:00: before [place] 00 meals and Medical at Branch bedtime. lactulose 2021-0 Yes [id number] 30mL Take 30 mL [facility] 10 gram/15 9-16 by mouth ity o f mL oral 00:00: daily. [place] solution [address] [facility] sucralfate 2-0 Yes [id number] 1000mg Take 10 mL [facility] 100 mg/mL 9-16 by mouth ity of suspension 00:00: before [place] 00 meals and Medical at Branch bedtime. lactulose 2-0 Yes [id number] 30mL Take 30 mL [facility] 10 gram/15 9-16 by mouth ity o f mL oral 00:00: daily. [place] solution [address] [facility] sucralfate 2-0 Yes [id number] 1000mg Take 10 mL [facility] 100 mg/mL 9-16 by mouth ity of suspension 00:00: before [place] 00 meals and Medical at Branch bedtime. lactulose 2-0 Yes [id number] 30mL Take 30 mL [facility] 10 gram/15 9-16 by mouth ity o f mL oral 00:00: daily. [place] solution 00 [facility] [place] sucralfate 2022-0 Yes [id number] 1000mg Take 10 mL [facility] 100 mg/mL 9-16 by mouth ity of suspension 00:00: before [place] 00 meals and Medical at Branch bedtime. lactulose 2-0 Yes [id number] 30mL Take 30 mL [facility] 10 gram/15 9-16 by mouth ity o f mL oral 00:00: daily. [place] solution [address] [facility] sucralfate 2-0 Yes [id number] 1000mg Take 10 mL [facility] 100 mg/mL 9-16 by mouth ity of suspension 00:00: before [place] 00 meals and Medical at Branch bedtime. lactulose 2-0 Yes [id number] 30mL Take 30 mL [facility] 10 gram/15 9-16 by mouth ity o f mL oral 00:00: daily. [place] solution [address] [facility] sucralfate 2-0 Yes [id number] 1000mg Take 10 mL [facility] 100 mg/mL 9-16 by mouth ity of suspension 00:00: before [place] 00 meals and Medical at Branch bedtime. lactulose 2-0 Yes [id number] 30mL Take 30 mL [facility] 10 gram/15 9-16 by mouth ity o f mL oral 00:00: daily. [place] solution [address] [facility] [facility] sucralfate 2-0 Yes [id number] 1000mg Take 10 mL [facility] 100 mg/mL 9-16 by mouth ity of suspension 00:00: before [place] 00 meals and Medical at Branch bedtime. lactulose 2-0 Yes [id number] 30mL Take 30 mL [facility] 10 gram/15 9-16 by mouth ity o f mL oral 00:00: daily. [place] solution 00 [facility] sucralfate 2-0 Yes [id number] 1000mg Take 10 mL [facility] 100 mg/mL 9-16 by mouth ity of suspension 00:00: before [place] 00 meals and Medical at Branch bedtime. lactulose 2-0 Yes [id number] 30mL Take 30 mL [facility] 10 gram/15 9-16 by mouth ity o f mL oral 00:00: daily. [place] solution 00 [facility] sucralfate 2-0 Yes [id number] 1000mg Take 10 mL [facility] 100 mg/mL 9-16 by mouth ity of suspension 00:00: before [place] 00 meals and Medical at Branch bedtime. lactulose 2-0 Yes [id number] 30mL Take 30 mL [facility] 10 gram/15 9-16 by mouth ity o f mL oral 00:00: daily. [place] solution 00 [facility] sucralfate 2-0 Yes [id number] 1000mg Take 10 mL [facility] 100 mg/mL 9-16 by mouth ity of suspension 00:00: before [place] 00 meals and Medical at Branch bedtime. lactulose 2-0 Yes [id number] 30mL Take 30 mL [facility] 10 gram/15 9-16 by mouth ity o f mL oral 00:00: daily. [place] solution [address] [facility] sucralfate 2-0 Yes [id number] 1000mg Take 10 mL [facility] 100 mg/mL 9-16 by mouth ity of suspension 00:00: before [place] 00 meals and Medical at Branch bedtime. lactulose 2-0 Yes [id number] 30mL Take 30 mL [facility] 10 gram/15 9-16 by mouth ity o f mL oral 00:00: daily. [place] solution [address] [facility] sucralfate 2-0 Yes [id number] 1000mg Take 10 mL [facility] 100 mg/mL 9-16 by mouth ity of suspension 00:00: before [place] 00 meals and Medical at Branch bedtime. lactulose 2-0 Yes [id number] 30mL Take 30 mL [facility] 10 gram/15 9-16 by mouth ity o f mL oral 00:00: daily. [place] solution [address] [facility] sucralfate 2-0 Yes [id number] 1000mg Take 10 mL [facility] 100 mg/mL 9-16 by mouth ity of suspension 00:00: before [place] 00 meals and Medical at Branch bedtime. lactulose 2-0 Yes [id number] 30mL Take 30 mL [facility] 10 gram/15 9-16 by mouth ity o f mL oral 00:00: daily. [place] solution [address] [facility] sucralfate 2-0 Yes [id number] 1000mg Take 10 mL [facility] 100 mg/mL 9-16 by mouth ity of suspension 00:00: before [place] 00 meals and Medical at Branch bedtime. lactulose 2-0 Yes [id number] 30mL Take 30 mL [facility] 10 gram/15 9-16 by mouth ity o f mL oral 00:00: daily. [place] solution [address] [facility] sucralfate 2-0 Yes [id number] 1000mg Take 10 mL [facility] 100 mg/mL 9-16 by mouth ity of suspension 00:00: before [place] 00 meals and Medical at Branch bedtime. lactulose 2-0 Yes [id number] 30mL Take 30 mL [facility] 10 gram/15 9-16 by mouth ity o f mL oral 00:00: daily. [place] solution [address] [facility] sucralfate 2-0 Yes [id number] 1000mg Take 10 mL [facility] 100 mg/mL 9-16 by mouth ity of suspension 00:00: before [place] 00 meals and Medical at Branch bedtime. lactulose 2-0 Yes [id number] 30mL Take 30 mL [facility] 10 gram/15 9-16 by mouth ity o f mL oral 00:00: daily. [place] solution [address] [facility] sucralfate 2021-0 Yes [id number] 1000mg Take 10 mL [facility] 100 mg/mL 9-16 by mouth ity of suspension 00:00: before [place] 00 meals and Medical at Branch bedtime. lactulose 2021-0 Yes [id number] 30mL Take 30 mL [facility] 10 gram/15 9-16 by mouth ity o f mL oral 00:00: daily. [place] solution [address] [facility] sucralfate 2-0 Yes [id number] 1000mg Take 10 mL [facility] 100 mg/mL 9-16 by mouth ity of suspension 00:00: before [place] 00 meals and Medical at Branch bedtime. lactulose 2021-0 Yes [id number] 30mL Take 30 mL [facility] 10 gram/15 9-16 by mouth ity o f mL oral 00:00: daily. [place] solution [address] [facility] sucralfate 2-0 Yes [id number] 1000mg Take 10 mL [facility] 100 mg/mL 9-16 by mouth ity of suspension 00:00: before [place] 00 meals and Medical at Branch bedtime. lactulose 2-0 Yes [id number] 30mL Take 30 mL [facility] 10 gram/15 9-16 by mouth ity o f mL oral 00:00: daily. [place] solution [address] [facility] sucralfate 2-0 Yes [id number] 1000mg Take 10 mL [facility] 100 mg/mL 9-16 by mouth ity of suspension 00:00: before [place] 00 meals and Medical at Branch bedtime. lactulose 2-0 Yes [id number] 30mL Take 30 mL [facility] 10 gram/15 9-16 by mouth ity o f mL oral 00:00: daily. [place] solution 00 [facility] sucralfate 2-0 Yes [id number] 1000mg Take 10 mL [facility] 100 mg/mL 9-16 by mouth ity of suspension 00:00: before [place] 00 meals and Medical at Branch bedtime. lactulose 2-0 Yes [id number] 30mL Take 30 mL [facility] 10 gram/15 9-16 by mouth ity o f mL oral 00:00: daily. [place] solution 00 [facility] sucralfate 2021-0 Yes [id number] 1000mg Take 10 mL [facility] 100 mg/mL 9-16 by mouth ity of suspension 00:00: before [place] 00 meals and Medical at Branch bedtime. lactulose 2021-0 Yes [id number] 30mL Take 30 mL [facility] 10 gram/15 9-16 by mouth ity o f mL oral 00:00: daily. [place] solution [address] [facility] sucralfate 2021-0 Yes [id number] 1000mg Take 10 mL [facility] 100 mg/mL 9-16 by mouth ity of suspension 00:00: before [place] 00 meals and Medical at Branch bedtime. lactulose 2021-0 Yes [id number] 30mL Take 30 mL [facility] 10 gram/15 9-16 by mouth ity o f mL oral 00:00: daily. [place] solution [address] [facility] sucralfate 2021-0 Yes [id number] 1000mg Take 10 mL [facility] 100 mg/mL 9-16 by mouth ity of suspension 00:00: before [place] 00 meals and Medical at Branch bedtime. lactulose 2-0 Yes [id number] 30mL Take 30 mL [facility] 10 gram/15 9-16 by mouth ity o f mL oral 00:00: daily. [place] solution 00 [facility] sucralfate 2-0 Yes [id number] 1000mg Take 10 mL [facility] 100 mg/mL 9-16 by mouth ity of suspension 00:00: before [place] 00 meals and Medical at Branch bedtime. lactulose 2-0 Yes [id number] 30mL Take 30 mL [facility] 10 gram/15 9-16 by mouth ity o f mL oral 00:00: daily. [place] solution [address] [facility] sucralfate 2-0 Yes [id number] 1000mg Take 10 mL [facility] 100 mg/mL 9-16 by mouth ity of suspension 00:00: before [place] 00 meals and Medical at Branch bedtime. lactulose 2-0 Yes [id number] 30mL Take 30 mL [facility] 10 gram/15 9-16 by mouth ity o f mL oral 00:00: daily. [place] solution [address] [facility] sucralfate 2021-0 Yes [id number] 1000mg Take 10 mL [facility] 100 mg/mL 9-16 by mouth ity of suspension 00:00: before [place] 00 meals and Medical at Branch bedtime. lactulose 2021-0 Yes [id number] 30mL Take 30 mL [facility] 10 gram/15 9-16 by mouth ity o f mL oral 00:00: daily. [place] solution [address] [facility] sucralfate 2021-0 Yes [id number] 1000mg Take 10 mL [facility] 100 mg/mL 9-16 by mouth ity of suspension 00:00: before [place] 00 meals and Medical at Branch bedtime. lactulose 2021-0 Yes [id number] 30mL Take 30 mL [facility] 10 gram/15 9-16 by mouth ity o f mL oral 00:00: daily. [place] solution [address] [facility] sucralfate 2021-0 Yes [id number] 1000mg Take 10 mL [facility] 100 mg/mL 9-16 by mouth ity of suspension 00:00: before [place] 00 meals and Medical at Branch bedtime. lactulose 2021-0 Yes [id number] 30mL Take 30 mL [facility] 10 gram/15 9-16 by mouth ity o f mL oral 00:00: daily. [place] solution [address] [facility] sucralfate 2-0 Yes [id number] 1000mg Take 10 mL [facility] 100 mg/mL 9-16 by mouth ity of suspension 00:00: before [place] 00 meals and Medical at Branch bedtime. lactulose 2-0 Yes [id number] 30mL Take 30 mL [facility] 10 gram/15 9-16 by mouth ity o f mL oral 00:00: daily. [place] solution [address] [facility] sucralfate 2-0 Yes [id number] 1000mg Take 10 mL [facility] 100 mg/mL 9-16 by mouth ity of suspension 00:00: before [place] 00 meals and Medical at Branch bedtime. lactulose 2-0 Yes [id number] 30mL Take 30 mL [facility] 10 gram/15 9-16 by mouth ity o f mL oral 00:00: daily. [place] solution 00 [facility] sucralfate 2-0 Yes [id number] 1000mg Take 10 mL [facility] 100 mg/mL 9-16 by mouth ity of suspension 00:00: before [place] 00 meals and Medical at Branch bedtime. lactulose 2-0 Yes [id number] 30mL Take 30 mL [facility] 10 gram/15 9-16 by mouth ity o f mL oral 00:00: daily. [place] solution 00 [facility] sucralfate 2-0 Yes [id number] 1000mg Take 10 mL [facility] 100 mg/mL 9-16 by mouth ity of suspension 00:00: before [place] 00 meals and Medical at Branch bedtime. lactulose 2-0 Yes [id number] 30mL Take 30 mL [facility] 10 gram/15 9-16 by mouth ity o f mL oral 00:00: daily. [place] solution [address] [facility] sucralfate 2021-0 Yes [id number] 1000mg Take 10 mL [facility] 100 mg/mL 9-16 by mouth ity of suspension 00:00: before [place] 00 meals and Medical at Branch bedtime. lactulose 2-0 Yes [id number] 30mL Take 30 mL [facility] 10 gram/15 9-16 by mouth ity o f mL oral 00:00: daily. [place] solution [address] [facility] sucralfate 2-0 Yes [id number] 1000mg Take 10 mL [facility] 100 mg/mL 9-16 by mouth ity of suspension 00:00: before [place] 00 meals and Medical at Branch bedtime. lactulose 2-0 Yes [id number] 30mL Take 30 mL [facility] 10 gram/15 9-16 by mouth ity o f mL oral 00:00: daily. [place] solution [address] [facility] sucralfate 2-0 Yes [id number] 1000mg Take 10 mL [facility] 100 mg/mL 9-16 by mouth ity of suspension 00:00: before [place] 00 meals and Medical at Branch bedtime. lactulose 2-0 Yes [id number] 30mL Take 30 mL [facility] 10 gram/15 9-16 by mouth ity o f mL oral 00:00: daily. [place] solution [address] [facility] sucralfate 2-0 Yes [id number] 1000mg Take 10 mL [facility] 100 mg/mL 9-16 by mouth ity of suspension 00:00: before [place] 00 meals and Medical at Branch bedtime. lactulose 2-0 Yes [id number] 30mL Take 30 mL [facility] 10 gram/15 9-16 by mouth ity o f mL oral 00:00: daily. [place] solution [address] [facility] sucralfate 2021-0 Yes [id number] 1000mg Take 10 mL [facility] 100 mg/mL 9-16 by mouth ity of suspension 00:00: before [place] 00 meals and Medical at Branch bedtime. lactulose 2021-0 Yes [id number] 30mL Take 30 mL [facility] 10 gram/15 9-16 by mouth ity o f mL oral 00:00: daily. [place] solution [address] [facility] sucralfate 2021-0 Yes [id number] 1000mg Take 10 mL [facility] 100 mg/mL 9-16 by mouth ity of suspension 00:00: before [place] meals and Medical at Branch bedtime. lactulose 2021-0 Yes [id number] 30mL Take 30 mL [facility] 10 gram/15 9-16 by mouth ity o f mL oral 00:00: daily. [place] solution [address] [facility] sucralfate 2021-0 Yes [id number] 1000mg Take 10 mL [facility] 100 mg/mL 9-16 by mouth ity of suspension 00:00: before [place] 00 meals and Medical at Branch bedtime. lactulose 2021-0 Yes [id number] 30mL Take 30 mL [facility] 10 gram/15 9-16 by mouth ity o f mL oral 00:00: daily. [place] solution [address] [facility] sucralfate 2021-0 Yes [id number] 1000mg Take 10 mL [facility] 100 mg/mL 9-16 by mouth ity of suspension 00:00: before [place] meals and Medical at Branch bedtime. lactulose 2021-0 Yes [id number] 30mL Take 30 mL [facility] 10 gram/15 9-16 by mouth ity o f mL oral 00:00: daily. [place] solution [address] [facility] sucralfate 2021-0 Yes [id number] 1000mg Take 10 mL [facility] 100 mg/mL 9-16 by mouth ity of suspension 00:00: before [place] [address] meals and Medical at Branch bedtime. Sucralfate 2-0 2023- No 1g Take 10 mL [facility] (Carafate) 9-16 07-19 (1 g [place] 1 GM/10ML 00:00: 00:00 total) by - oral 00 :00 mouth Externa Suspension before l meals and at bedtime Lactulose 2021-0 2023- No 20g Take 30 mL K elsey 10 GM/15ML 916 04-10 (20 g Seybold oral 00:00: 00:00 total) by - Solution 00 :00 mouth Externa daily l Tramadol 2021-0 Yes 50mg [id number] Take 1 K elsey HCl 9-14 [id number] tablet (50 Sey bold (ULTRAM) 50 00:00: 3D mg total) - MG oral 00 by mouth Externa Tablet every 8 l hours as needed Tramadol 2021-0 Yes 50mg [id number] Take 1 K elsey HCl 9-14 [id number] tablet (50 Sey bold (ULTRAM) 50 00:00: 3D mg total) - MG oral 00 by mouth Externa Tablet every 8 l hours as needed Tramadol 2021-0 Yes 50mg [id number] Take 1 K [facility] HCl 9-14 [id number] tablet (50 Sey bold (ULTRAM) 50 00:00: 3D mg total) - MG oral 00 by mouth Externa Tablet every 8 l hours as needed pantoprazol 2-0 Yes 40mg QD Take [address] [facility] 9-14 tablet (40 [facility] (PROTON[facility] 00:00: mg total) Me dical 40 MG 00 by mouth Center tablet in the morning. pantoprazol 2022-0 Yes 40mg QD Take [address] [facility] 9-14 tablet (40 [facility] (PROTONIX) 00:00: mg total) Me dical 40 MG 00 by mouth Center tablet in the morning. pantoprazol 2022-0 Yes 40mg QD Take [address] [facility] 9-14 tablet (40 [facility] (PROTONIX) 00:00: mg total) Me dical 40 MG 00 by mouth Center tablet in the morning. pantoprazol 2022-0 Yes 40mg QD Take [address] [facility] 9-14 tablet (40 [facility] (PROTONIX) 00:00: mg total) Me dical 40 MG 00 by mouth Center tablet in the morning. pantoprazol 2022-0 Yes 40mg QD Take 40 [...] mouth ity o f tablet 00:00: daily. [place] [facility] traMADoL 50 2021-0 Yes TAKE 1 [facility] ers mg tablet 9-14 TABLET BY ity o f 00:00: MOUTH EVERY 8 Medical HOURS Branch NEEDED pantoprazol 2-0 Yes 40mg Take 40 mg [facility] e 40 mg EC 9-14 by mouth ity o f tablet 00:00: daily. [place] [facility] traMADoL 50 2021-0 Yes TAKE 1 [facility] ers mg tablet 9-14 TABLET BY ity o f 00:00: MOUTH EVERY 8 Medical HOURS Branch NEEDED pantoprazol 2-0 Yes 40mg Take 40 mg [facility] e 40 mg EC 9-14 by mouth ity o f tablet 00:00: daily. [place] [facility] traMADoL 50 2021-0 Yes TAKE 1 [facility] ers mg tablet 9-14 TABLET BY ity o f 00:00: MOUTH [place] EVERY 8 Medical HOURS Branch NEEDED pantoprazol 2-0 Yes 40mg Take 40 mg [facility] e 40 mg EC 9-14 by mouth ity o f tablet 00:00: daily. [place] [facility] traMADoL 50 2021-0 Yes TAKE 1 [facility] ers mg tablet 9-14 TABLET BY ity o f 00:00: MOUTH [place] EVERY 8 Medical HOURS Branch NEEDED pantoprazol 2-0 Yes 40mg Take 40 mg [facility] e 40 mg EC 9-14 by mouth ity o f tablet 00:00: daily. [place] [facility] traMADoL 50 2021-0 Yes TAKE 1 [facility] ers mg tablet 9-14 TABLET BY ity o f 00:00: MOUTH EVERY 8 Medical HOURS Branch NEEDED pantoprazol 2-0 Yes 40mg Take 40 mg [facility] e 40 mg EC 9-14 by mouth ity o f tablet 00:00: daily. [place] [facility] traMADoL 50 2021-0 Yes TAKE 1 [facility] ers mg tablet 9-14 TABLET BY ity o f 00:00: MOUTH [place] 00 EVERY 8 Medical HOURS Branch NEEDED pantoprazol 2021-0 Yes 40mg Take 40 mg [facility] e 40 mg EC 9-14 by mouth ity o f tablet 00:00: daily. [place] [facility] traMADoL 50 2021-0 Yes TAKE 1 [facility] ers mg tablet 9-14 TABLET BY ity o f 00:00: MOUTH EVERY 8 Medical HOURS Branch NEEDED pantoprazol 2-0 Yes 40mg Take 40 mg [facility] e 40 mg EC 9-14 by mouth ity o f tablet 00:00: daily. [place] [facility] traMADoL 50 2021-0 Yes TAKE 1 [facility] ers mg tablet 9-14 TABLET BY ity o f 00:00: MOUTH EVERY 8 Medical HOURS Branch NEEDED pantoprazol 2021-0 Yes 40mg Take 40 mg [facility] e 40 mg EC 9-14 by mouth ity o f tablet 00:00: daily. [place] [facility] traMADoL 50 2021-0 Yes TAKE 1 [facility] ers mg tablet 9-14 TABLET BY ity o f 00:00: MOUTH EVERY 8 Medical HOURS Branch NEEDED pantoprazol 2021-0 Yes 40mg Take 40 mg [facility] e 40 mg EC 9-14 by mouth ity o f tablet 00:00: daily. [place] [facility] traMADoL 50 2021-0 Yes TAKE 1 [facility] ers mg tablet 9-14 TABLET BY ity o f 00:00: MOUTH EVERY 8 Medical HOURS Branch NEEDED pantoprazol 2-0 Yes 40mg Take 40 mg [facility] e 40 mg EC 9-14 by mouth ity o f tablet 00:00: daily. [place] [facility] traMADoL 50 2021-0 Yes TAKE 1 [facility] ers mg tablet 9-14 TABLET BY ity o f 00:00: MOUTH EVERY 8 Medical HOURS Branch NEEDED pantoprazol 2-0 Yes 40mg Take 40 mg [facility] e 40 mg EC 9-14 by mouth ity o f tablet 00:00: daily. [place] [facility] traMADoL 50 2021-0 Yes TAKE 1 [facility] ers mg tablet 9-14 TABLET BY ity o f 00:00: MOUTH EVERY 8 Medical HOURS Branch NEEDED pantoprazol 2-0 Yes 40mg Take 40 mg [facility] e 40 mg EC 9-14 by mouth ity o f tablet 00:00: daily. [place] [facility] traMADoL 50 2021-0 Yes TAKE 1 [facility] ers mg tablet 9-14 TABLET BY ity o f 00:00: MOUTH EVERY 8 Medical HOURS Branch NEEDED pantoprazol 2-0 Yes 40mg Take 40 mg [facility] e 40 mg EC 9-14 by mouth ity o f tablet 00:00: daily. [place] [facility] traMADoL 50 2021-0 Yes TAKE 1 [facility] ers mg tablet 9-14 TABLET BY ity o f 00:00: MOUTH EVERY 8 Medical HOURS Branch NEEDED pantoprazol 2-0 Yes 40mg Take 40 mg [facility] e 40 mg EC 9-14 by mouth ity o f tablet 00:00: daily. [place] [facility] traMADoL 50 2021-0 Yes TAKE 1 [facility] mg tablet 9-14 TABLET BY ity o f 00:00: MOUTH EVERY 8 Medical HOURS Branch NEEDED pantoprazol 2-0 Yes 40mg Take 40 mg [facility] e 40 mg EC 9-14 by mouth ity o f tablet 00:00: daily. [place] [facility] traMADoL 50 2021-0 Yes TAKE 1 [facility] ers mg tablet 9-14 TABLET BY ity o f 00:00: MOUTH EVERY 8 Medical HOURS Branch NEEDED pantoprazol 2-0 Yes 40mg Take 40 mg [facility] e 40 mg EC 9-14 by mouth ity o f tablet 00:00: daily. [place] [facility] traMADoL 50 2021-0 Yes TAKE 1 [facility] ers mg tablet 9-14 TABLET BY ity o f 00:00: MOUTH EVERY 8 Medical HOURS Branch NEEDED pantoprazol 2-0 Yes 40mg Take 40 mg [facility] e 40 mg EC 9-14 by mouth ity o f tablet 00:00: daily. [place] [facility] traMADoL 50 2021-0 Yes TAKE 1 [facility] ers mg tablet 9-14 TABLET BY ity o f 00:00: MOUTH EVERY 8 Medical HOURS Branch NEEDED pantoprazol 2022-0 Yes 40mg Take 40 mg [facility] e 40 mg EC 9-14 by mouth ity o f tablet 00:00: daily. [place] [facility] traMADoL 50 2021-0 Yes TAKE 1 [facility] ers mg tablet 9-14 TABLET BY ity o f 00:00: MOUTH EVERY 8 Medical HOURS Branch NEEDED pantoprazol 2022-0 Yes 40mg Take 40 mg [facility] e 40 mg EC 9-14 by mouth ity o f tablet 00:00: daily. [place] [facility] traMADoL 50 2021-0 Yes TAKE 1 [facility] mg tablet 9-14 TABLET BY ity o f 00:00: MOUTH EVERY 8 Medical HOURS Branch NEEDED pantoprazol 2022-0 Yes 40mg Take 40 mg [facility] e 40 mg EC 9-14 by mouth ity o f tablet 00:00: daily. [place] [facility] traMADoL 50 2021-0 Yes TAKE 1 [facility] mg tablet 9-14 TABLET BY ity o f 00:00: MOUTH EVERY 8 Medical HOURS Branch NEEDED pantoprazol 2022-0 Yes 40mg Take 40 mg [facility] e 40 mg EC 9-14 by mouth ity o f tablet 00:00: daily. [place] [facility] traMADoL 50 2021-0 Yes TAKE 1 [facility] mg tablet 9-14 TABLET BY ity o f 00:00: MOUTH EVERY 8 Medical HOURS Branch NEEDED pantoprazol 2-0 Yes 40mg Take 40 mg [facility] e 40 mg EC 9-14 by mouth ity o f tablet 00:00: daily. [place] [facility] traMADoL 50 2021-0 Yes TAKE 1 [facility] mg tablet 9-14 TABLET BY ity o f 00:00: MOUTH EVERY 8 Medical HOURS Branch NEEDED pantoprazol 2022-0 Yes 40mg Take 40 mg [facility] e 40 mg EC 9-14 by mouth ity o f tablet 00:00: daily. [place] [facility] traMADoL 50 2-0 Yes TAKE 1 [facility] mg tablet 9-14 TABLET BY ity o f 00:00: MOUTH EVERY 8 Medical HOURS Branch NEEDED pantoprazol 2-0 Yes 40mg Take 40 mg [facility] e 40 mg EC 9-14 by mouth ity o f tablet 00:00: daily. [place] [facility] traMADoL 50 2-0 Yes TAKE 1 [facility] mg tablet 9-14 TABLET BY ity o f 00:00: MOUTH EVERY 8 Medical HOURS Branch NEEDED pantoprazol 2022-0 Yes 40mg Take 40 mg [facility] e 40 mg EC 9-14 by mouth ity o f tablet 00:00: daily. [place] [facility] traMADoL 50 2022-0 Yes TAKE 1 [facility] mg tablet 9-14 TABLET BY ity o f 00:00: MOUTH [place] 00 EVERY 8 Medical HOURS Branch NEEDED pantoprazol 2021-0 Yes 40mg Take 40 mg [facility] e 40 mg EC 9-14 by mouth ity o f tablet 00:00: daily. [place] [facility] traMADoL 50 2021-0 Yes TAKE 1 [facility] mg tablet 9-14 TABLET BY ity o f 00:00: MOUTH EVERY 8 Medical HOURS Branch NEEDED pantoprazol 2-0 Yes 40mg Take 40 mg [facility] e 40 mg EC 9-14 by mouth ity o f tablet 00:00: daily. [place] [facility] traMADoL 50 2021-0 Yes TAKE 1 [facility] mg tablet 9-14 TABLET BY ity o f 00:00: MOUTH EVERY 8 Medical HOURS Branch NEEDED pantoprazol 2021-0 Yes 40mg Take 40 mg [facility] e 40 mg EC 9-14 by mouth ity o f tablet 00:00: daily. [place] [facility] traMADoL 50 2021-0 Yes TAKE 1 [facility] mg tablet 9-14 TABLET BY ity o f 00:00: MOUTH EVERY 8 Medical HOURS Branch NEEDED pantoprazol 2021-0 Yes 40mg Take 40 mg [facility] e 40 mg EC 9-14 by mouth ity o f tablet 00:00: daily. [place] [facility] traMADoL 50 2021-0 Yes TAKE 1 [facility] mg tablet 9-14 TABLET BY ity o f 00:00: MOUTH EVERY 8 Medical HOURS Branch NEEDED pantoprazol 2-0 Yes 40mg Take 40 mg [facility] 40 mg EC 9-14 by mouth ity o f tablet 00:00: daily. [place] [facility] traMADoL 50 2021-0 Yes TAKE 1 [facility] mg tablet 9-14 TABLET BY ity o f 00:00: MOUTH EVERY 8 Medical HOURS Branch NEEDED pantoprazol 2-0 Yes 40mg Take 40 mg [facility] 40 mg EC 9-14 by mouth ity o f tablet 00:00: daily. [place] [facility] traMADoL 50 2021-0 Yes TAKE 1 [facility] mg tablet 9-14 TABLET BY ity o f 00:00: MOUTH EVERY 8 Medical HOURS Branch NEEDED pantoprazol 2-0 Yes 40mg Take 40 mg [facility] 40 mg EC 9-14 by mouth ity o f tablet 00:00: daily. [place] [facility] traMADoL 50 2021-0 Yes TAKE 1 [facility] mg tablet 9-14 TABLET BY ity o f 00:00: MOUTH EVERY 8 Medical HOURS Branch NEEDED pantoprazol 2-0 Yes 40mg Take 40 mg [facility] 40 mg EC 9-14 by mouth ity o f tablet 00:00: daily. [place] [facility] traMADoL 50 2021-0 Yes TAKE 1 [facility] mg tablet 9-14 TABLET BY ity o f 00:00: MOUTH EVERY 8 Medical HOURS Branch NEEDED pantoprazol 2-0 Yes 40mg Take 40 mg [facility] 40 mg EC 9-14 by mouth ity o f tablet 00:00: daily. [place] [facility] traMADoL 50 2021-0 Yes TAKE 1 [facility] mg tablet 9-14 TABLET BY ity o f 00:00: MOUTH EVERY 8 Medical HOURS Branch NEEDED pantoprazol 2-0 Yes 40mg Take 40 mg [facility] 40 mg EC 9-14 by mouth ity o f tablet 00:00: daily. [place] [facility] traMADoL 50 2021-0 Yes TAKE 1 [facility] mg tablet 9-14 TABLET BY ity o f 00:00: MOUTH EVERY 8 Medical HOURS Branch NEEDED pantoprazol 2-0 Yes 40mg Take 40 mg [facility] 40 mg EC 9-14 by mouth ity o f tablet 00:00: daily. [place] [facility] traMADoL 50 2021-0 Yes TAKE 1 [facility] mg tablet 9-14 TABLET BY ity o f 00:00: MOUTH EVERY 8 Medical HOURS Branch NEEDED pantoprazol 2-0 Yes 40mg Take 40 mg [facility] 40 mg EC 9-14 by mouth ity o f tablet 00:00: daily. [place] [facility] traMADoL 50 2021-0 Yes TAKE 1 [facility] mg tablet 9-14 TABLET BY ity o f 00:00: MOUTH EVERY 8 Medical HOURS Branch NEEDED pantoprazol 2022-0 Yes 40mg Take 40 mg [facility] 40 mg EC 9-14 by mouth ity o f tablet 00:00: daily. [place] [facility] traMADoL 50 2021-0 Yes TAKE 1 [facility] mg tablet 9-14 TABLET BY ity o f 00:00: MOUTH EVERY 8 Medical HOURS Branch NEEDED pantoprazol 2022-0 Yes 40mg Take 40 mg [facility] 40 mg EC 9-14 by mouth ity o f tablet 00:00: daily. [place] [facility] traMADoL 50 2021-0 Yes TAKE 1 [facility] mg tablet 9-14 TABLET BY ity o f 00:00: MOUTH EVERY 8 Medical HOURS Branch NEEDED pantoprazol 2022-0 Yes 40mg Take 40 mg [facility] 40 mg EC 9-14 by mouth ity o f tablet 00:00: daily. [place] [facility] traMADoL 50 2021-0 Yes TAKE 1 [facility] mg tablet 9-14 TABLET BY ity o f 00:00: MOUTH EVERY 8 Medical HOURS Branch NEEDED pantoprazol 2022-0 Yes 40mg Take 40 mg [facility] 40 mg EC 9-14 by mouth ity o f tablet 00:00: daily. [place] [facility] traMADoL 50 2021-0 Yes TAKE 1 [facility] mg tablet 9-14 TABLET BY ity o f 00:00: MOUTH EVERY 8 Medical HOURS Branch NEEDED pantoprazol 2-0 Yes 40mg Take 40 mg [facility] 40 mg EC 9-14 by mouth ity o f tablet 00:00: daily. [place] [facility] traMADoL 50 2021-0 Yes TAKE 1 [facility] mg tablet 9-14 TABLET BY ity o f 00:00: MOUTH EVERY 8 Medical HOURS Branch NEEDED pantoprazol 2022-0 Yes 40mg Take 40 mg [facility] 40 mg EC 9-14 by mouth ity o f tablet 00:00: daily. [place] [facility] traMADoL 50 2-0 Yes TAKE 1 [facility] mg tablet 9-14 TABLET BY ity o f 00:00: MOUTH EVERY 8 Medical HOURS Branch NEEDED pantoprazol 2-0 Yes 40mg Take 40 mg [facility] 40 mg EC 9-14 by mouth ity o f tablet 00:00: daily. [place] [facility] traMADoL 50 2-0 Yes TAKE 1 [facility] mg tablet 9-14 TABLET BY ity o f 00:00: MOUTH EVERY 8 Medical HOURS Branch NEEDED pantoprazol 2022-0 Yes 40mg Take 40 mg [facility] 40 mg EC 9-14 by mouth ity o f tablet 00:00: daily. [place] [facility] traMADoL 50 2022-0 Yes TAKE 1 [facility] mg tablet 9-14 TABLET BY ity o f 00:00: MOUTH [place] 00 EVERY 8 Medical HOURS Branch NEEDED pantoprazol 2021-0 Yes 40mg Take 40 mg [facility] 40 mg EC 9-14 by mouth ity o f tablet 00:00: daily. [place] [facility] traMADoL 50 2021-0 Yes TAKE 1 [facility] mg tablet 9-14 TABLET BY ity o f 00:00: MOUTH EVERY 8 Medical HOURS Branch NEEDED pantoprazol 2-0 Yes 40mg Take 40 mg [facility] 40 mg EC 9-14 by mouth ity o f tablet 00:00: daily. [place] [facility] traMADoL 50 2021-0 Yes TAKE 1 [facility] mg tablet 9-14 TABLET BY ity o f 00:00: MOUTH EVERY 8 Medical HOURS Branch NEEDED pantoprazol 2021-0 Yes 40mg Take 40 mg [facility] 40 mg EC 9-14 by mouth ity o f tablet 00:00: daily. [facility] traMADoL 50 2021-0 Yes TAKE 1 [facility] mg tablet 9-14 TABLET BY ity o f 00:00: MOUTH EVERY 8 Medical HOURS Branch NEEDED pantoprazol 2021-0 Yes 40mg Take 40 mg [facility] 40 mg EC 9-14 by mouth it[facility] o f tablet 00:00: daily. [facility] traMADoL 50 2021-0 Yes TAKE 1 [facility] mg tablet 9-14 TABLET BY ity o f 00:00: MOUTH EVERY 8 Medical HOURS Branch NEEDED pantoprazol 2-0 Yes 40mg Take 40 mg [facility] 40 mg EC 9-14 by mouth it[facility] o f tablet 00:00: daily. [facility] traMADoL 50 2021-0 Yes TAKE 1 [facility] mg tablet 9-14 TABLET BY ity o f 00:00: MOUTH EVERY 8 Medical HOURS Branch NEEDED pantoprazol 2-0 Yes 40mg Take 40 mg [facility] 40 mg EC 9-14 by mouth ity o f tablet 00:00: daily. [facility] traMADoL 50 2021-0 Yes TAKE 1 [facility] mg tablet 9-14 TABLET BY ity o f 00:00: MOUTH EVERY 8 Medical HOURS Branch NEEDED pantoprazol 2-0 Yes 40mg Take 40 mg [facility] 40 mg EC 9-14 by mouth ity o f tablet 00:00: daily. [facility] traMADoL 50 2021-0 Yes TAKE 1 [facility] mg tablet 9-14 TABLET BY ity o f 00:00: MOUTH EVERY 8 Medical HOURS Branch NEEDED pantoprazol 2-0 Yes 40mg Take 40 mg [facility] 40 mg EC 9-14 by mouth ity o f tablet 00:00: daily. [facility] traMADoL 50 2021-0 Yes TAKE 1 [facility] mg tablet 9-14 TABLET BY ity o f 00:00: MOUTH EVERY 8 Medical HOURS Branch NEEDED pantoprazol 2-0 Yes 40mg Take 40 mg [facility] 40 mg EC 9-14 by mouth ity o f tablet 00:00: daily. [facility] traMADoL 50 2021-0 Yes TAKE 1 [facility] mg tablet 9-14 TABLET BY ity o f 00:00: MOUTH EVERY 8 Medical HOURS Branch NEEDED pantoprazol 2-0 Yes 40mg Take 40 mg [facility] 40 mg EC 9-14 by mouth ity o f tablet 00:00: daily. [facility] traMADoL 50 2021-0 Yes TAKE 1 [facility] mg tablet 9-14 TABLET BY ity o f 00:00: MOUTH EVERY 8 Medical HOURS Branch NEEDED pantoprazol 2-0 Yes 40mg Take 40 mg [facility] 40 mg EC 9-14 by mouth ity o f tablet 00:00: daily. [facility] traMADoL 50 2021-0 Yes TAKE 1 [facility] mg tablet 9-14 TABLET BY ity o f 00:00: MOUTH EVERY 8 Medical HOURS Branch NEEDED pantoprazol 2-0 Yes 40mg Take 40 mg [facility] 40 mg EC 9-14 by mouth ity o f tablet 00:00: daily. [facility] traMADoL 50 2021-0 Yes TAKE 1 [facility] mg tablet 9-14 TABLET BY ity o f 00:00: MOUTH EVERY 8 Medical HOURS Branch NEEDED pantoprazol 2022-0 Yes 40mg Take 40 mg [facility] 40 mg EC 9-14 by mouth ity o f tablet 00:00: daily. [facility] traMADoL 50 2021-0 Yes TAKE 1 [facility] mg tablet 9-14 TABLET BY ity o f 00:00: MOUTH EVERY 8 Medical HOURS Branch NEEDED pantoprazol 2022-0 Yes 40mg Take 40 mg [facility] 40 mg EC 9-14 by mouth ity o f tablet 00:00: daily. [facility] traMADoL 50 2021-0 Yes TAKE 1 [facility] mg tablet 9-14 TABLET BY ity o f 00:00: MOUTH EVERY 8 Medical HOURS Branch NEEDED pantoprazol 2022-0 Yes 40mg Take 40 mg [facility] 40 mg EC 9-14 by mouth ity o f tablet 00:00: daily. [facility] traMADoL 50 2021-0 Yes TAKE 1 [facility] mg tablet 9-14 TABLET BY ity o f 00:00: MOUTH EVERY 8 Medical HOURS Branch NEEDED pantoprazol 2022-0 Yes 40mg Take 40 mg [facility] 40 mg EC 9-14 by mouth ity o f tablet 00:00: daily. [facility] traMADoL 50 2021-0 Yes TAKE 1 [facility] mg tablet 9-14 TABLET BY ity o f 00:00: MOUTH EVERY 8 Medical HOURS Branch NEEDED pantoprazol 2-0 Yes 40mg Take 40 mg [facility] 40 mg EC 9-14 by mouth ity o f tablet 00:00: daily. [facility] traMADoL 50 2021-0 Yes TAKE 1 [facility] mg tablet 9-14 TABLET BY ity o f 00:00: MOUTH EVERY 8 Medical HOURS Branch NEEDED pantoprazol 2022-0 Yes 40mg Take 40 mg [facility] 40 mg EC 9-14 by mouth ity o f tablet 00:00: daily. [place] [facility] traMADoL 50 2-0 Yes TAKE 1 [facility] mg tablet 9-14 TABLET BY ity o f 00:00: MOUTH EVERY 8 Medical HOURS Branch NEEDED pantoprazol 2-0 Yes 40mg Take 40 mg [facility] 40 mg EC 9-14 by mouth ity o f tablet 00:00: daily. [facility] traMADoL 50 2-0 Yes TAKE 1 [facility] mg tablet 9-14 TABLET BY ity o f 00:00: MOUTH EVERY 8 Medical HOURS Branch NEEDED pantoprazol 2022-0 Yes 40mg Take 40 mg [facility] 40 mg EC 9-14 by mouth ity o f tablet 00:00: daily. [facility] traMADoL 50 2022-0 Yes TAKE 1 [facility] mg tablet 9-14 TABLET BY ity o f 00:00: MOUTH [place] 00 EVERY 8 Medical HOURS Branch NEEDED pantoprazol 2021-0 Yes 40mg Take 40 mg [facility] 40 mg EC 9-14 by mouth ity o f tablet 00:00: daily. [facility] traMADoL 50 2021-0 Yes TAKE 1 [facility] mg tablet 9-14 TABLET BY ity o f 00:00: MOUTH [place] 00 EVERY 8 Medical HOURS Branch NEEDED pantoprazol 2-0 Yes 40mg Take 40 mg [facility] 40 mg EC 9-14 by mouth ity o f tablet 00:00: daily. [place] [facility] traMADoL 50 2021-0 Yes TAKE 1 [facility] mg tablet 9-14 TABLET BY ity o f 00:00: MOUTH [place] 00 EVERY 8 Medical HOURS Branch NEEDED pantoprazol 2021-0 Yes 40mg Take 40 mg [facility] 40 mg EC 9-14 by mouth ity o f tablet 00:00: daily. [place] [facility] traMADoL 50 2021-0 Yes TAKE 1 [facility] mg tablet 9-14 TABLET BY ity o f 00:00: MOUTH [place] 00 EVERY 8 Medical HOURS Branch NEEDED pantoprazol 2021-0 Yes 40mg Take 40 mg [facility] 40 mg EC 9-14 by mouth ity o f tablet 00:00: daily. [place] [facility] traMADoL 50 2021-0 Yes TAKE 1 [facility] mg tablet 9-14 TABLET BY ity o f 00:00: MOUTH [place] 00 EVERY 8 Medical HOURS Branch NEEDED pantoprazol 2-0 Yes 40mg QD Take [address] [facility] 9-14 tablet (40 [facility] (PROTONIX) 00:[facility]: mg total) [facility] d[facility] 40 MG 00 by mouth Center tablet in the morning. Tramadol 2-0 2023- No 50mg [id number] Take 1 [facility] HCl -14 07-19 [id number] tablet (50 [facility] (ULTRAM) 50 00:00: 00:00 3D mg total) - MG oral 00 :00 by mouth Externa Tablet every 8 l hours as needed Pantoprazol 2022-0 2023- No 40mg Take 1 [facility] e Sodium 40 -14 04-10 tablet (40 [facility] MG oral 00:00: 00:00 mg total) - Tablet 00 :00 by mouth Externa Delayed daily l Response Metoclopram 2022-0 Yes 10mg Take 1 [facility] HCl 10 8-31 tablet (10 [facility] MG oral 00:00: mg total) - Tablet 00 by mouth Externa every l morning (before breakfast) Metoclopram 2022-0 Yes 10mg Take 1 [facility] HCl 10 8-31 tablet (10 [facility] MG oral 00:00: mg total) - Tablet 00 by mouth Externa every l morning (before breakfast) Metoclopram 2022-0 Yes 10mg Take 1 [facility] HCl 10 8-31 tablet (10 [facility] MG oral 00:00: mg total) - Tablet 00 by mouth Externa every l morning (before breakfast) metoclopram 2022-0 Yes [id number] 10mg Take 1 [facility] rochelle HCl 8-31 tablet by ity of (REGLAN) 10 00:00: mouth [place] mg tablet 00 before Medical meals. Branch metoclopram 2022-0 Yes [id number] 10mg Take 1 [facility] rochelle HCl 8-31 tablet by ity of (REGLAN) 10 00:00: mouth [place] mg tablet 00 before Medical meals. Branch metoclopram 2022-0 Yes [id number] 10mg Take 1 [facility] ro[facility] HCl 8-31 tablet by ity of (REGLAN) 10 00:00: mouth [place] mg tablet 00 before Medical meals. Branch metoclopram 2022-0 Yes [id number] 10mg Take 1 [facility] ro[facility] HCl 8-31 tablet by ity of (REGLAN) 10 00:00: mouth [place] mg tablet 00 before Medical meals. Branch metoclopram 2022-0 Yes [id number] 10mg Take 1 [facility] rochelle HCl 8-31 tablet by ity of (REGLAN) 10 00:00: mouth [place] mg tablet 00 before Medical meals. Branch metoclopram 2022-0 Yes [id number] 10mg Take 1 [facility] ro[facility] HCl 8-31 tablet by ity of (REGLAN) 10 00:00: mouth [place] mg tablet 00 before Medical meals. Branch metoclopram 2022-0 Yes [id number] 10mg Take 1 [facility] ro[facility]le HCl 8-31 tablet by ity of (REGLAN) 10 00:00: mouth [place] mg tablet 00 before Medical meals. Branch metoclopram 2022-0 Yes [id number] 10mg Take 1 [facility] ro[facility] HCl 8-31 tablet by ity of (REGLAN) 10 00:00: mouth [place] mg tablet 00 before Medical meals. Branch metoclopram 2022-0 Yes [id number] 10mg Take 1 [facility] HCl 8-31 tablet by ity of (REGLAN) 10 00:00: mouth [place] mg tablet 00 before Medical meals. Branch metoclopram 2022-0 Yes [id number] 10mg Take 1 [facility] ro[facility] HCl 8-31 tablet by ity of (REGLAN) 10 00:00: mouth [place] mg tablet 00 before Medical meals. Branch metoclopram 2022-0 Yes [id number] 10mg Take 1 [facility] HCl 8-31 tablet by ity of (REGLAN) 10 00:00: mouth [place] mg tablet 00 before Medical meals. Branch metoclopram 2022-0 Yes [id number] 10mg Take 1 [facility] ro[facility]le HCl 8-31 tablet by ity of (REGLAN) 10 00:00: mouth [place] mg tablet 00 before Medical meals. Branch metoclopram 2022-0 Yes [id number] 10mg Take 1 [facility] HCl 8-31 tablet by ity of (REGLAN) 10 00:00: mouth [place] mg tablet 00 before Medical meals. Branch metoclopram 2022-0 Yes [id number] 10mg Take 1 [facility] ro[facility] HCl 8-31 tablet by ity of (REGLAN) 10 00:00: mouth [place] mg tablet 00 before Medical meals. Branch metoclopram 2022-0 Yes [id number] 10mg Take 1 [facility] ro[facility] HCl 8-31 tablet by ity of (REGLAN) 10 00:00: mouth [place] mg tablet 00 before Medical meals. Branch metoclopram 2022-0 Yes [id number] 10mg Take 1 [facility] ro[facility] HCl 8-31 tablet by ity of (REGLAN) 10 00:00: mouth [place] mg tablet 00 before Medical meals. Branch metoclopram 2022-0 Yes [id number] 10mg Take 1 [facility] ro[facility]le HCl 8-31 tablet by ity of (REGLAN) 10 00:00: mouth [place] mg tablet 00 before Medical meals. Branch metoclopram 2022-0 Yes [id number] 10mg Take 1 [facility] ro[facility]le HCl 8-31 tablet by ity of (REGLAN) 10 00:00: mouth [place] mg tablet 00 before Medical meals. Branch metoclopram 2022-0 Yes [id number] 10mg Take 1 [facility] ro[facility]le HCl 8-31 tablet by ity of (REGLAN) 10 00:00: mouth [place] mg tablet 00 before Medical meals. Branch metoclopram 2022-0 Yes [id number] 10mg Take 1 [facility] ro[facility] HCl 8-31 tablet by ity of (REGLAN) 10 00:00: mouth [place] mg tablet 00 before Medical meals. Branch metoclopram 2022-0 Yes [id number] 10mg Take 1 [facility] ro[facility] HCl 8-31 tablet by ity of (REGLAN) 10 00:00: mouth [place] mg tablet 00 before Medical meals. Branch metoclopram 2022-0 Yes [id number] 10mg Take 1 [facility] ro[facility]le HCl 8-31 tablet by ity of (REGLAN) 10 00:00: mouth [place] mg tablet 00 before Medical meals. Branch metoclopram 2022-0 Yes [id number] 10mg Take 1 [facility] ro[facility]le HCl 8-31 tablet by ity of (REGLAN) 10 00:00: mouth [place] mg tablet 00 before Medical meals. Branch metoclopram 2022-0 Yes [id number] 10mg Take 1 [facility] HCl 8-31 tablet by ity of (REGLAN) 10 00:00: mouth [place] mg tablet 00 before Medical meals. Branch metoclopram 2022-0 Yes [id number] 10mg Take 1 [facility] HCl 8-31 tablet by ity of (REGLAN) 10 00:00: mouth [place] mg tablet 00 before Medical meals. Branch metoclopram 2022-0 Yes [id number] 10mg Take 1 [facility] HCl 8-31 tablet by ity of (REGLAN) 10 00:00: mouth [place] mg tablet 00 before Medical meals. Branch metoclopram 2022-0 Yes [id number] 10mg Take 1 [facility] ro[facility] HCl 8-31 tablet by ity of (REGLAN) 10 00:00: mouth [place] mg tablet 00 before Medical meals. Branch metoclopram 2022-0 Yes [id number] 10mg Take 1 [facility] ro[facility] HCl 8-31 tablet by ity of (REGLAN) 10 00:00: mouth [place] mg tablet 00 before Medical meals. Branch metoclopram 2022-0 Yes [id number] 10mg Take 1 [facility] ro[facility] HCl 8-31 tablet by ity of (REGLAN) 10 00:00: mouth [place] mg tablet 00 before Medical meals. Branch metoclopram 2022-0 Yes [id number] 10mg Take 1 [facility] ro[facility] HCl 8-31 tablet by ity of (REGLAN) 10 00:00: mouth [place] mg tablet 00 before Medical meals. Branch metoclopram 2022-0 Yes [id number] 10mg Take 1 [facility] HCl 8-31 tablet by ity of (REGLAN) 10 00:00: mouth [place] mg tablet 00 before Medical meals. Branch metoclopram 2022-0 Yes [id number] 10mg Take 1 [facility] HCl 8-31 tablet by ity of (REGLAN) 10 00:00: mouth [place] mg tablet 00 before Medical meals. Branch metoclopram 2022-0 Yes [id number] 10mg Take 1 [facility] ro[facility] HCl 8-31 tablet by ity of (REGLAN) 10 00:00: mouth [place] mg tablet 00 before Medical meals. Branch metoclopram 2022-0 Yes [id number] 10mg Take 1 [facility] HCl 8-31 tablet by ity of (REGLAN) 10 00:00: mouth [place] mg tablet 00 before Medical meals. Branch metoclopram 2022-0 Yes [id number] 10mg Take 1 [facility] HCl 8-31 tablet by ity of (REGLAN) 10 00:00: mouth [place] mg tablet 00 before Medical meals. Branch metoclopram 2022-0 Yes [id number] 10mg Take 1 [facility] HCl 8-31 tablet by ity of (REGLAN) 10 00:00: mouth [place] mg tablet 00 before Medical meals. Branch metoclopram 2022-0 Yes [id number] 10mg Take 1 [facility] HCl 8-31 tablet by ity of (REGLAN) 10 00:00: mouth [place] mg tablet 00 before Medical meals. Branch metoclopram 2022-0 Yes [id number] 10mg Take 1 [facility] HCl 8-31 tablet by ity of (REGLAN) 10 00:00: mouth [place] mg tablet 00 before Medical meals. Branch metoclopram 2022-0 Yes [id number] 10mg Take 1 [facility] HCl 8-31 tablet by ity of (REGLAN) 10 00:00: mouth [place] mg tablet 00 before Medical meals. Branch metoclopram 2022-0 Yes [id number] 10mg Take 1 [facility] HCl 8-31 tablet by ity of (REGLAN) 10 00:00: mouth [place] mg tablet 00 before Medical meals. Branch metoclopram 2022-0 Yes [id number] 10mg Take 1 [facility] HCl 8-31 tablet by ity of (REGLAN) 10 00:00: mouth [place] mg tablet 00 before Medical meals. Branch metoclopram 2022-0 Yes [id number] 10mg Take 1 [facility] HCl 8-31 tablet by ity of (REGLAN) 10 00:00: mouth [place] mg tablet 00 before Medical meals. Branch metoclopram 2022-0 Yes [id number] 10mg Take 1 [facility] HCl 8-31 tablet by ity of (REGLAN) 10 00:00: mouth [place] mg tablet 00 before Medical meals. Branch metoclopram 2022-0 Yes [id number] 10mg Take 1 [facility] HCl 8-31 tablet by ity of (REGLAN) 10 00:00: mouth [place] mg tablet 00 before Medical meals. Branch metoclopram 2022-0 Yes [id number] 10mg Take 1 [facility] HCl 8-31 tablet by ity of (REGLAN) 10 00:00: mouth [place] mg tablet 00 before Medical meals. Branch metoclopram 2022-0 Yes [id number] 10mg Take 1 [facility] ro[facility] HCl 8-31 tablet by ity of (REGLAN) 10 00:00: mouth [place] mg tablet 00 before Medical meals. Branch metoclopram 2022-0 Yes [id number] 10mg Take 1 [facility] HCl 8-31 tablet by ity of (REGLAN) 10 00:00: mouth [place] mg tablet 00 before Medical meals. Branch metoclopram 2022-0 Yes [id number] 10mg Take 1 [facility] ro[facility] HCl 8-31 tablet by ity of (REGLAN) 10 00:00: mouth [place] mg tablet 00 before Medical meals. Branch metoclopram 2022-0 Yes [id number] 10mg Take 1 [facility] HCl 8-31 tablet by ity of (REGLAN) 10 00:00: mouth [place] mg tablet 00 before Medical meals. Branch metoclopram 2022-0 Yes [id number] 10mg Take 1 [facility] HCl 8-31 tablet by ity of (REGLAN) 10 00:00: mouth [place] mg tablet 00 before Medical meals. Branch metoclopram 2022-0 Yes [id number] 10mg Take 1 [facility] ro[facility] HCl 8-31 tablet by ity of (REGLAN) 10 00:00: mouth [place] mg tablet 00 before Medical meals. Branch metoclopram 2022-0 Yes [id number] 10mg Take 1 [facility] ro[facility] HCl 8-31 tablet by ity of (REGLAN) 10 00:00: mouth [place] mg tablet 00 before Medical meals. Branch metoclopram 2022-0 Yes [id number] 10mg Take 1 [facility] ro[facility] HCl 8-31 tablet by ity of (REGLAN) 10 00:00: mouth [place] mg tablet 00 before Medical meals. Branch metoclopram 2022-0 Yes [id number] 10mg Take 1 [facility] ro[facility] HCl 8-31 tablet by ity of (REGLAN) 10 00:00: mouth [place] mg tablet 00 before Medical meals. Branch metoclopram 2022-0 Yes [id number] 10mg Take 1 [facility] ro[facility] HCl 8-31 tablet by ity of (REGLAN) 10 00:00: mouth [place] mg tablet 00 before Medical meals. Branch metoclopram 2022-0 Yes [id number] 10mg Take 1 [facility] ro[facility] HCl 8-31 tablet by ity of (REGLAN) 10 00:00: mouth [place] mg tablet 00 before Medical meals. Branch metoclopram 2022-0 Yes [id number] 10mg Take 1 [facility] HCl 8-31 tablet by ity of (REGLAN) 10 00:00: mouth [place] mg tablet 00 before Medical meals. Branch metoclopram 2022-0 Yes [id number] 10mg Take 1 [facility] HCl 8-31 tablet by ity of (REGLAN) 10 00:00: mouth [place] mg tablet 00 before Medical meals. Branch metoclopram 2022-0 Yes [id number] 10mg Take 1 [facility] HCl 8-31 tablet by ity of (REGLAN) 10 00:00: mouth [place] mg tablet 00 before Medical meals. Branch metoclopram 2022-0 Yes [id number] 10mg Take 1 [facility] HCl 8-31 tablet by ity of (REGLAN) 10 00:00: mouth [place] mg tablet 00 before Medical meals. Branch metoclopram 2022-0 Yes [id number] 10mg Take 1 [facility] HCl 8-31 tablet by ity of (REGLAN) 10 00:00: mouth [place] mg tablet 00 before Medical meals. Branch metoclopram 2022-0 Yes [id number] 10mg Take 1 [facility] HCl 8-31 tablet by ity of (REGLAN) 10 00:00: mouth [place] mg tablet 00 before Medical meals. Branch metoclopram 2022-0 Yes [id number] 10mg Take 1 [facility] HCl 8-31 tablet by ity of (REGLAN) 10 00:00: mouth [place] mg tablet 00 before Medical meals. Branch metoclopram 2022-0 Yes [id number] 10mg Take 1 [facility] HCl 8-31 tablet by ity of (REGLAN) 10 00:00: mouth [place] mg tablet 00 before Medical meals. Branch metoclopram 2022-0 Yes [id number] 10mg Take 1 [facility] HCl 8-31 tablet by ity of (REGLAN) 10 00:00: mouth [place] mg tablet 00 before Medical meals. Branch metoclopram 2022-0 Yes [id number] 10mg Take 1 [facility] HCl 8-31 tablet by ity of (REGLAN) 10 00:00: mouth [place] mg tablet 00 before Medical meals. Branch metoclopram 2022-0 Yes [id number] 10mg Take 1 [facility] HCl 8-31 tablet by ity of (REGLAN) 10 00:00: mouth [place] mg tablet 00 before Medical meals. Branch metoclopram 2022-0 Yes [id number] 10mg Take 1 [facility] HCl 8-31 tablet by ity of (REGLAN) 10 00:00: mouth [place] mg tablet 00 before Medical meals. Branch metoclopram 2022-0 Yes [id number] 10mg Take 1 [facility] HCl 8-31 tablet by ity of (REGLAN) 10 00:00: mouth [place] mg tablet 00 before Medical meals. Branch metoclopram 2022-0 Yes [id number] 10mg Take 1 [facility] HCl 8-31 tablet by ity of (REGLAN) 10 00:00: mouth [place] mg tablet 00 before Medical meals. Branch metoclopram 2022-0 Yes [id number] 10mg Take 1 [facility] HCl 8-31 tablet by ity of (REGLAN) 10 00:00: mouth [place] mg tablet 00 before Medical meals. Branch metoclopram 2022-0 Yes [id number] 10mg Take 1 [facility] HCl 8-31 tablet by ity of (REGLAN) 10 00:00: mouth [place] mg tablet 00 before Medical meals. Branch metoclopram 2022-0 Yes [id number] 10mg Take 1 [facility] HCl 8-31 tablet by ity of (REGLAN) 10 00:00: mouth [place] mg tablet 00 before Medical meals. Branch metoclopram 2022-0 Yes [id number] 10mg Take 1 [facility] HCl 8-31 tablet by ity of (REGLAN) 10 00:00: mouth [place] mg tablet 00 before Medical meals. Branch metoclopram 2022-0 Yes [id number] 10mg Take 1 [facility] HCl 8-31 tablet by ity of (REGLAN) 10 00:00: mouth [place] mg tablet 00 before Medical meals. Branch metoclopram 2022-0 Yes [id number] 10mg Take 1 [facility] HCl 8-31 tablet by ity of (REGLAN) 10 00:00: mouth [place] mg tablet 00 before Medical meals. Branch metoclopram 2022-0 Yes [id number] 10mg Take 1 [facility] HCl 8-31 tablet by ity of (REGLAN) 10 00:00: mouth [place] mg tablet 00 before Medical meals. Branch metoclopram 2022-0 Yes [id number] 10mg Take 1 [facility] HCl 8-31 tablet by ity of (REGLAN) 10 00:00: mouth [place] mg tablet 00 before Medical meals. Branch metoclopram 2022-0 Yes [id number] 10mg Take 1 [facility] HCl 8-31 tablet by ity of (REGLAN) 10 00:00: mouth [place] mg tablet 00 before Medical meals. Branch metoclopram 2022-0 Yes [id number] 10mg Take 1 [facility] HCl 8-31 tablet by ity of (REGLAN) 10 00:00: mouth [place] mg tablet 00 before Medical meals. Branch metoclopram 2022-0 Yes [id number] 10mg Take 1 [facility] HCl 8-31 tablet by ity of (REGLAN) 10 00:00: mouth [place] mg tablet 00 before Medical meals. Branch metoclopram 2022-0 Yes [id number] 10mg Take 1 [facility] HCl 8-31 tablet by ity of (REGLAN) 10 00:00: mouth [place] mg tablet 00 before Medical meals. Branch metoclopram 2022-0 Yes [id number] 10mg Take 1 [facility] HCl 8-31 tablet by ity of (REGLAN) 10 00:00: mouth [place] mg tablet 00 before Medical meals. Branch metoclopram 2022-0 Yes [id number] 10mg Take 1 [facility] HCl 8-31 tablet by ity of (REGLAN) 10 00:00: mouth [place] mg tablet 00 before Medical meals. Branch Metoclopram 0 2022- No 10mg Take 1 [facility] rochelle HCl 10 8-31 07-19 tablet (10 [facility] MG oral 00:00: 00:00 mg total) - Tablet 00 :00 by mouth Externa every l morning (before breakfast) Albuterol 2021-0 Yes 2{puff} Q.25D Inhale 2 [facility] HFA 108 (90 8-26 puffs into [facility]) 00:00: the lungs - MCG/ACT IN 00 every 6 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 [facility] hours as l needed Omeprazole 2-0 Yes 40mg Take 2 [facility] 20 MG oral 8-26 capsules [facility] ld Delayed 00:00: (40 mg - Release 00 total) by Externa Capsule mouth 2 l times daily Albuterol 2021-0 Yes 2{puff} Q.25D Inhale 2 [facility] HFA 108 (90 8-26 puffs into [facility]) 00:00: the lungs - MCG/ACT IN 00 every 6 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 [facility] hours as l needed Omeprazole 2-0 Yes 40mg Take 2 [facility] 20 MG oral 8-26 capsules [facility] ld Delayed 00:00: (40 mg - Release 00 total) by Externa Capsule mouth 2 l times daily Albuterol 2-0 Yes 2{puff} Q.25D Inhale 2 [facility] HFA 108 (90 8-26 puffs into [facility]) 00:00: the lungs - MCG/ACT IN 00 every 6 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 [facility] hours as l needed Omeprazole 2022-0 Yes 40mg Take 2 [facility] 20 MG oral 8-26 capsules [facility] ld Delayed 00:00: (40 mg - Release 00 total) by Externa Capsule mouth 2 l times daily Albuterol 2022-0 Yes 2{puff} Q.25D Inhale 2 [facility] HFA 108 (90 8-26 puffs into [facility]) 00:00: the lungs - MCG/ACT IN 00 every 6 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 [facility] hours as l needed Albuterol 2022-0 Yes 2{puff} Q.25D Inhale 2 [facility] HFA 108 (90 8-26 puffs into [facility]) 00:00: the lungs - MCG/ACT IN 00 every 6 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 [facility] hours as l needed Albuterol Yes 2{puff} Q.25D Inhale 2 [facility] HFA 108 (90 8-26 puffs into [facility]) 00:00: the lungs - MCG/ACT IN 00 every 6 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 [facility] hours as l needed Albuterol 2021-0 Yes 2{puff} Q.25D Inhale 2 [facility] HFA 108 (90 8-26 puffs into [facility]) 00:00: the lungs - MCG/ACT IN 00 every 6 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 [facility] hours as l needed. pravastatin Yes [facility] (Pravachol) 8-26 [facility] 10 MG 00:00: tablet 00 pravastatin 0 Yes [facility] (Pravachol) 8-26 [facility] 10 MG 00:00: tablet 00 pravastatin 2021-0 Yes 10mg Take 10 mg [facility] (Pravachol) 8-26 by mouth [facility] 10 MG 00:00: every tablet 00 night. topiramate 2021-0 Yes [id number] 100mg Take 1 [facility] 100 mg 8-26 tablet by [facility] of tablet 00:00: mouth 2 [place] 00 (two) Medical times Branch daily. baclofen 5 2021-0 Yes [id number] 5mg Take 1 [facility] mg tablet 8-26 9102 tablet by ity o f 00:00: mouth 3 [place] 00 (three) Medical times Branch daily. albuterol 2021-0 Yes [id number] 2{puff} Inhale 2 [facility] 90 8-26 Puffs ity of mcg/actuati 00:00: every 6 [place] as on inhaler 00 (six) Medical hours as Branch needed for Wheezing or Shortness of Breath. omeprazole 2021-0 Yes [id number] 40mg Take 2 [facility] 20 mg 8-26 capsules [facility] capsule 00:00: by mouth 2 [place] 00 (two) Medical times Branch daily. pravastatin 2021-0 Yes [id number] 10mg Take 1 [facility] 10 mg 8-26 tablet by ity of tablet 00:00: mouth at [place] 00 bedtime. Medical Branch topiramate 2021-0 Yes [id number] 100mg Take 1 [facility] 100 mg 8-26 tablet by ity of tablet 00:00: mouth 2 (two) Medical times Branch daily. baclofen 5 2021-0 Yes [id number] 5mg Take 1 [facility] mg tablet 8-26 9102 tablet by ity o f 00:00: mouth 3 (three) Medical times Branch daily. albuterol 2021-0 Yes [id number] 2{puff} Inhale 2 [facility] 90 8-26 Puffs ity of mcg/actuati 00:00: every 6 [place] as on inhaler 00 (six) Medical hours as Branch needed for Wheezing or Shortness of Breath. omeprazole 2021-0 Yes [id number] 40mg Take 2 [facility] 20 mg 8-26 capsules ity of capsule 00:00: by mouth 2 s (two) Medical times Branch daily. pravastatin 2021-0 Yes [id number] 10mg Take 1 [facility] 10 mg 8-26 tablet by ity of tablet 00:00: mouth at [place] bedtime. Medical Branch topiramate 2021-0 Yes [id number] 100mg Take 1 [facility] 100 mg 8-26 tablet by ity of tablet 00:00: mouth 2 (two) Medical times Branch daily. baclofen 5 2021-0 Yes [id number] 5mg Take 1 [facility] mg tablet 8-26 9102 tablet by ity o f 00:00: mouth 3 (three) Medical times Branch daily. albuterol 2021-0 Yes [id number] 2{puff} Inhale 2 [facility] 90 8-26 Puffs ity of mcg/actuati 00:00: every 6 [place] as on inhaler 00 (six) Medical hours as Branch needed for Wheezing or Shortness of Breath. omeprazole 2021-0 Yes [id number] 40mg Take 2 [facility] 20 mg 8-26 capsules ity of capsule 00:00: by mouth 2 s (two) Medical times [facility] daily. pravastatin 2-0 Yes [id number] 10mg Take 1 [facility] 10 mg 8-26 tablet by [facility] of tablet 00:00: mouth at [place] 00 bedtime. [facility] topiramate 2-0 Yes [id number] 100mg Take 1 [facility] 100 mg 8-26 tablet by [facility] of tablet 00:00: mouth 2 (two) Medical times [facility] daily. baclofen 5 2021-0 Yes [id number] 5mg Take 1 [facility] mg tablet 8-26 9102 tablet by ity o f 00:00: mouth 3 (three) Medical times [facility] daily. albuterol 2021-0 Yes [id number] 2{puff} Inhale 2 [facility] 90 8-26 Puffs ity of mcg/actuati 00:00: every 6 [place] as on inhaler 00 (six) Medical hours as [facility] needed for Wheezing or Shortness of Breath. omeprazole 2021-0 Yes [id number] 40mg Take 2 [facility] 20 mg 8-26 capsules [facility] of capsule 00:00: [place] mouth [place] (two) [facility] times [facility] daily. pravastatin 2021-0 Yes [id number] 10mg Take 1 [facility] 10 mg 8-26 tablet by [facility] of tablet 00:00: mouth at 00 bedtime. [facility] topiramate 2021-0 Yes [id number] 100mg Take 1 [facility] 100 mg 8-26 tablet by [facility] of tablet 00:00: mouth 2 (two) Medical times [facility] daily. baclofen 5 2021-0 Yes [id number] 5mg Take 1 [facility] mg tablet 8-26 9102 tablet by ity o f 00:00: mouth 3 (three) Medical times [facility] daily. albuterol 2021-0 Yes [id number] 2{puff} Inhale 2 [facility] 90 8-26 Puffs [facility] of mcg/actuati 00:00: every 6 [place] as on inhaler 00 (six) Medical hours as [facility] needed for Wheezing or Shortness of Breath. omeprazole 2021-0 Yes [id number] 40mg Take 2 [facility] 20 mg 8-26 capsules [facility] of capsule 00:00: by mouth [place] (two) [facility] times [facility] daily. pravastatin 2021-0 Yes [id number] 10mg Take 1 [facility] 10 mg 8-26 tablet by [facility] of tablet 00:00: mouth at 00 bedtime. [facility] topiramate 2021-0 Yes [id number] 100mg Take 1 [facility] 100 mg 8-26 tablet by [facility] of tablet 00:00: mouth 2 (two) Medical times [facility] daily. baclofen 5 2021-0 Yes [id number] 5mg Take 1 [facility] mg tablet 8-26 9102 tablet by ity o f 00:00: mouth 3 (three) Medical times [facility] daily. albuterol 2021-0 Yes [id number] 2{puff} Inhale 2 [facility] 90 8-26 Puffs [facility]y of mcg/actuati 00:00: every 6 [place] as on inhaler 00 (six) Medical hours as [facility] needed for Wheezing or Shortness of Breath. omeprazole 2022-0 Yes [id number] 40mg Take 2 [facility] 20 mg 8-26 capsules [facility] capsule 00:00: [place] mouth [place] ([place] [facility] times [facility] daily. pravastatin 2021-0 Yes [id number] 10mg Take 1 [facility] 10 mg 8-26 tablet by [facility] of tablet 00:00: mouth at [place] 00 bedtime. [facility] topiramate 2021-0 Yes [id number] 100mg Take 1 [facility] 100 mg 8-26 tablet by [facility] of tablet 00:00: mouth (two) Medical times [facility] daily. baclofen 5 2021-0 Yes [id number] 5mg Take 1 [facility] mg tablet 8-26 9102 tablet by ity o f 00:00: mouth 3 (three) Medical times [facility] daily. albuterol 2021-0 Yes [id number] 2{puff} Inhale 2 [facility] 90 8-26 Puffs it[facility] of mcg/actuati 00:00: every 6 [place] as on inhaler 00 (six) Medical hours as [facility] needed for Wheezing or Shortness of Breath. omeprazole 2021-0 Yes [id number] 40mg Take 2 [facility] 20 mg 8-26 capsules ity of capsule 00:00: by mouth 2 s (two) Medical times [facility] daily. pravastatin 2021-0 Yes [id number] 10mg Take 1 [facility] 10 mg 8-26 tablet by [facility] of tablet 00:00: mouth at [place] 00 bedtime. [facility] topiramate 2021-0 Yes [id number] 100mg Take 1 [facility] 100 mg 8-26 tablet by [facility] of tablet 00:00: mouth 2 (two) Medical times [facility] daily. baclofen 5 2021-0 Yes [id number] 5mg Take 1 [facility] mg tablet 8-26 9102 tablet by ity o f 00:00: mouth 3 (three) Medical times [facility] daily. albuterol 2-0 Yes [id number] 2{puff} Inhale 2 [facility] 90 8-26 Puffs ity of mcg/actuati 00:00: every 6 [place] as on inhaler 00 (six) Medical hours as [facility] needed for Wheezing or Shortness of Breath. omeprazole 2021-0 Yes [id number] 40mg Take 2 [facility] 20 mg 8-26 capsules [facility] of capsule 00:00: by mouth 2 [place] 00 (two) [facility] times [facility] daily. pravastatin 2021-0 Yes [id number] 10mg Take 1 [facility] 10 mg 8-26 tablet by [facility] of tablet 00:00: mouth at 00 bedtime. [facility] topiramate 2021-0 Yes [id number] 100mg Take 1 [facility] 100 mg 8-26 tablet by it[facility] of tablet 00:00: mouth 2 (two) Medical times [facility] daily. baclofen 5 2021-0 Yes [id number] 5mg Take 1 [facility] mg tablet 8-26 9102 tablet by ity o f 00:00: mouth 3 (three) Medical times [facility] daily. albuterol 2021-0 Yes [id number] 2{puff} Inhale 2 [facility] 90 8-26 Puffs ity of mcg/actuati 00:00: every 6 [place] as on inhaler 00 (six) Medical hours as [facility] needed for Wheezing or Shortness of Breath. omeprazole 2021-0 Yes [id number] 40mg Take 2 [facility] 20 mg 8-26 capsules [facility] of capsule 00:00: by mouth 2 [place] 00 (two) [facility] times [facility] daily. pravastatin 2021-0 Yes [id number] 10mg Take 1 [facility] 10 mg 8-26 tablet by [facility] of tablet 00:00: mouth at 00 bedtime. [facility] topiramate 2021-0 Yes [id number] 100mg Take 1 [facility] 100 mg 8-26 tablet by [facility] of tablet 00:00: mouth 2 (two) Medical times [facility] daily. baclofen 5 2021-0 Yes [id number] 5mg Take 1 [facility] mg tablet 8-26 9102 tablet by ity o f 00:00: mouth 3 (three) Medical times [facility] daily. albuterol 2021-0 Yes [id number] 2{puff} Inhale 2 [facility] 90 8-26 Puffs ity of mcg/actuati 00:00: every 6 [place] as on inhaler 00 (six) Medical hours as [facility] needed for Wheezing or Shortness of Breath. omeprazole 2021-0 Yes [id number] 40mg Take 2 [facility] 20 mg 8-26 capsules [facility] of capsule 00:00: by mouth 2 [place] 00 (two) [facility] times [facility] daily. pravastatin 2021-0 Yes [id number] 10mg Take 1 [facility] 10 mg 8-26 tablet by [facility] of tablet 00:00: mouth at [place] 00 bedtime. [facility] topiramate 2021-0 Yes [id number] 100mg Take 1 [facility] 100 mg 8-26 tablet by it[facility] of tablet 00:00: mouth 2 00 (two) Medical times [facility] daily. baclofen 5 2021-0 Yes [id number] 5mg Take 1 [facility] mg tablet 8-26 9102 tablet by ity o f 00:00: mouth 3 (three) Medical times [facility] daily. albuterol 2021-0 Yes [id number] 2{puff} Inhale 2 [facility] 90 8-26 Puffs ity of mcg/actuati 00:00: every 6 [place] as on inhaler 00 (six) Medical hours as [facility] needed for Wheezing or Shortness of Breath. omeprazole 2021-0 Yes [id number] 40mg Take 2 [facility] 20 mg 8-26 capsules [facility] of capsule 00:00: by mouth 2 [place] (two) [facility] times [facility] daily. pravastatin 2021-0 Yes [id number] 10mg Take 1 [facility] 10 mg 8-26 tablet by [facility] of tablet 00:00: mouth at [place] 00 bedtime. [facility] topiramate 2021-0 Yes [id number] 100mg Take 1 [facility] 100 mg 8-26 tablet by it[facility] of tablet 00:00: mouth 2 00 (two) Medical times [facility] daily. baclofen 5 2021-0 Yes [id number] 5mg Take 1 [facility] mg tablet 8-26 9102 tablet by ity o f 00:00: mouth 3 (three) Medical times [facility] daily. albuterol 2021-0 Yes [id number] 2{puff} Inhale 2 [facility] 90 8-26 Puffs [facility]y of mcg/actuati 00:00: every 6 [place] as on inhaler 00 (six) Medical hours as [facility] needed for Wheezing or Shortness of Breath. omeprazole 2-0 Yes [id number] 40mg Take 2 [facility] 20 mg 8-26 capsules [facility] of capsule 00:00: by mouth 2 [place] 00 (two) [facility] times [facility] daily. pravastatin 2022-0 Yes [id number] 10mg Take 1 [facility] 10 mg 8-26 tablet by [facility] of tablet 00:00: mouth at [place] 00 bedtime. [facility] topiramate 2021-0 Yes [id number] 100mg Take 1 [facility] 100 mg 8-26 tablet by [facility] of tablet 00:00: mouth 2 00 (two) Medical times [facility] daily. baclofen 5 2021-0 Yes [id number] 5mg Take 1 [facility] mg tablet 8-26 9102 tablet by ity o f 00:00: mouth 3 (three) Medical times [facility] daily. albuterol 2021-0 Yes [id number] 2{puff} Inhale 2 [facility] 90 8-26 Puffs [facility]y of mcg/actuati 00:00: every 6 [place] as on inhaler 00 (six) Medical hours as [facility] needed for Wheezing or Shortness of Breath. omeprazole 2021-0 Yes [id number] 40mg Take 2 [facility] 20 mg 8-26 capsules [facility] of capsule 00:00: by mouth 2 [place] 00 (two) [facility] times [facility] daily. pravastatin 2021-0 Yes [id number] 10mg Take 1 [facility] 10 mg 8-26 tablet by [facility] of tablet 00:00: mouth at [place] 00 bedtime. [facility] topiramate 2021-0 Yes [id number] 100mg Take 1 [facility] 100 mg 8-26 tablet by [facility] of tablet 00:00: mouth 2 00 (two) Medical times [facility] daily. baclofen 5 2021-0 Yes [id number] 5mg Take 1 [facility] mg tablet 8-26 9102 tablet by ity o f 00:00: mouth 3 00 (three) Medical times [facility] daily. albuterol 2-0 Yes [id number] 2{puff} Inhale 2 [facility] 90 8-26 Puffs ity of mcg/actuati 00:00: every 6 [place] as on inhaler 00 (six) Medical hours as [facility] needed for Wheezing or Shortness of Breath. omeprazole 2-0 Yes [id number] 40mg Take 2 [facility] 20 mg 8-26 capsules [facility] of capsule 00:00: by mouth 2 [place] (two) [facility] times [facility] daily. pravastatin 2021-0 Yes [id number] 10mg Take 1 [facility] 10 mg 8-26 tablet by ity of tablet 00:00: mouth at [place] bedtime. [facility] topiramate 2021-0 Yes [id number] 100mg Take 1 [facility] 100 mg 8-26 tablet by ity of tablet 00:00: mouth 2 (two) Medical times [facility] daily. baclofen 5 2021-0 Yes [id number] 5mg Take 1 [facility] mg tablet 8-26 9102 tablet by ity o f 00:00: mouth 3 (three) Medical times [facility] daily. albuterol 2021-0 Yes [id number] 2{puff} Inhale 2 [facility] 90 8-26 Puffs ity of mcg/actuati 00:00: every 6 [place] as on inhaler 00 (six) Medical hours as [facility] needed for Wheezing or Shortness of Breath. omeprazole 2021-0 Yes [id number] 40mg Take 2 [facility] 20 mg 8-26 capsules ity of capsule 00:00: by mouth 2 (two) Medical times [facility] daily. pravastatin 2021-0 Yes [id number] 10mg Take 1 [facility] 10 mg 8-26 tablet by it[facility] of tablet 00:00: mouth at [place] 00 bedtime. [facility] topiramate 2021-0 Yes [id number] 100mg Take 1 [facility] 100 mg 8-26 tablet by ity of tablet 00:00: mouth 2 (two) Medical times [facility] daily. baclofen 5 2021-0 Yes [id number] 5mg Take 1 [facility] mg tablet 8-26 9102 tablet by ity o f 00:00: mouth 3 (three) Medical times [facility] daily. albuterol 2021-0 Yes [id number] 2{puff} Inhale 2 [facility] 90 8-26 Puffs ity of mcg/actuati 00:00: every 6 [place] as on inhaler 00 (six) Medical hours as [facility] needed for Wheezing or Shortness of Breath. omeprazole 2-0 Yes [id number] 40mg Take 2 [facility] 20 mg 8-26 capsules [facility] of capsule 00:00: by mouth 2 [place] (two) [facility] times [facility] daily. pravastatin 2-0 Yes [id number] 10mg Take 1 [facility] 10 mg 8-26 tablet by [facility] of tablet 00:00: mouth at [place] 00 bedtime. [facility] topiramate 2021-0 Yes [id number] 100mg Take 1 [facility] 100 mg 8-26 tablet by ity of tablet 00:00: mouth 2 00 (two) Medical times [facility] daily. baclofen 5 2021-0 Yes [id number] 5mg Take 1 [facility] mg tablet 8-26 9102 tablet by ity o f 00:00: mouth 3 (three) Medical times [facility] daily. albuterol 2021-0 Yes [id number] 2{puff} Inhale 2 [facility] 90 8-26 Puffs ity of mcg/actuati 00:00: every 6 [place] as on inhaler 00 (six) Medical hours as [facility] needed for Wheezing or Shortness of Breath. omeprazole 2021-0 Yes [id number] 40mg Take 2 [facility] 20 mg 8-26 capsules [facility] of capsule 00:00: by mouth 2 [place] (two) [facility] times [facility] daily. pravastatin 2021-0 Yes [id number] 10mg Take 1 [facility] 10 mg 8-26 tablet by it[facility] of tablet 00:00: mouth at [place] 00 bedtime. [facility] topiramate 2021-0 Yes [id number] 100mg Take 1 [facility] 100 mg 8-26 tablet by ity of tablet 00:00: mouth 2 (two) Medical times [facility] daily. baclofen 5 2021-0 Yes [id number] 5mg Take 1 [facility] mg tablet 8-26 9102 tablet by ity o f 00:00: mouth 3 (three) Medical times [facility] daily. albuterol 2021-0 Yes [id number] 2{puff} Inhale 2 [facility] 90 8-26 Puffs ity of mcg/actuati 00:00: every 6 [place] as on inhaler 00 (six) Medical hours as [facility] needed for Wheezing or Shortness of Breath. omeprazole 2022-0 Yes [id number] 40mg Take 2 [facility] 20 mg 8-26 capsules [facility] of capsule 00:00: by mouth 2 [place] 00 (two) [facility] times [facility] daily. pravastatin 2022-0 Yes [id number] 10mg Take 1 [facility] 10 mg 8-26 tablet by ity of tablet 00:00: mouth at [place] 00 bedtime. [facility] topiramate 2021-0 Yes [id number] 100mg Take 1 [facility] 100 mg 8-26 tablet by ity of tablet 00:00: mouth 2 00 (two) Medical times [facility] daily. baclofen 5 2021-0 Yes [id number] 5mg Take 1 [facility] mg tablet 8-26 9102 tablet by ity o f 00:00: mouth 3 (three) Medical times [facility] daily. albuterol 2021-0 Yes [id number] 2{puff} Inhale 2 [facility] 90 8-26 Puffs ity of mcg/actuati 00:00: every 6 [place] as on inhaler 00 (six) Medical hours as [facility] needed for Wheezing or Shortness of Breath. omeprazole 2021-0 Yes [id number] 40mg Take 2 [facility] 20 mg 8-26 capsules it[facility] of capsule 00:00: by mouth 2 [place] (two) [facility] times [facility] daily. pravastatin 2021-0 Yes [id number] 10mg Take 1 [facility] 10 mg 8-26 tablet by ity of tablet 00:00: mouth at [place] 00 bedtime. [facility] topiramate 2021-0 Yes [id number] 100mg Take 1 [facility] 100 mg 8-26 tablet by ity of tablet 00:00: mouth 2 (two) Medical times [facility] daily. baclofen 5 2021-0 Yes [id number] 5mg Take 1 [facility] mg tablet 8-26 9102 tablet by ity o f 00:00: mouth 3 (three) Medical times [facility] daily. albuterol 2021-0 Yes [id number] 2{puff} Inhale 2 [facility] 90 8-26 Puffs ity of mcg/actuati 00:00: every 6 [place] as on inhaler 00 (six) Medical hours as [facility] needed for Wheezing or Shortness of Breath. omeprazole 2021-0 Yes [id number] 40mg Take 2 [facility] 20 mg 8-26 capsules ity of capsule 00:00: by mouth 2 [place] 00 (two) [facility] times [facility] daily. pravastatin 2021-0 Yes [id number] 10mg Take 1 [facility] 10 mg 8-26 tablet by ity of tablet 00:00: mouth at [place] 00 bedtime. [facility] topiramate 2021-0 Yes [id number] 100mg Take 1 [facility] 100 mg 8-26 tablet by ity of tablet 00:00: mouth 2 (two) Medical times [facility] daily. baclofen 5 2021-0 Yes [id number] 5mg Take 1 [facility] mg tablet 8-26 9102 tablet by ity o f 00:00: mouth 3 (three) Medical times [facility] daily. albuterol 2021-0 Yes [id number] 2{puff} Inhale 2 [facility] 90 8-26 Puffs ity of mcg/actuati 00:00: every 6 [place] as on inhaler 00 (six) Medical hours as [facility] needed for Wheezing or Shortness of Breath. omeprazole 2021-0 Yes [id number] 40mg Take 2 [facility] 20 mg 8-26 capsules ity of capsule 00:00: by mouth 2 (two) Medical times [facility] daily. pravastatin 2021-0 Yes [id number] 10mg Take 1 [facility] 10 mg 8-26 tablet by ity of tablet 00:00: mouth at [place] 00 bedtime. [facility] topiramate 2021-0 Yes [id number] 100mg Take 1 [facility] 100 mg 8-26 tablet by ity of tablet 00:00: mouth 2 (two) Medical times [facility] daily. baclofen 5 2021-0 Yes [id number] 5mg Take 1 [facility] mg tablet 8-26 9102 tablet by ity o f 00:00: mouth 3 (three) Medical times [facility] daily. albuterol 2021-0 Yes [id number] 2{puff} Inhale 2 [facility] 90 8-26 Puffs ity of mcg/actuati 00:00: every 6 [place] as on inhaler 00 (six) Medical hours as [facility] needed for Wheezing or Shortness of Breath. omeprazole 2021-0 Yes [id number] 40mg Take 2 [facility] 20 mg 8-26 capsules ity of capsule 00:00: by mouth 2 s (two) Medical times [facility] daily. pravastatin 2-0 Yes [id number] 10mg Take 1 [facility] 10 mg 8-26 tablet by ity of tablet 00:00: mouth at [place] 00 bedtime. [facility] topiramate 2021-0 Yes [id number] 100mg Take 1 [facility] 100 mg 8-26 tablet by ity of tablet 00:00: mouth 2 (two) Medical times [facility] daily. baclofen 5 2021-0 Yes [id number] 5mg Take 1 [facility] mg tablet 8-26 9102 tablet by ity o f 00:00: mouth 3 00 (three) Medical times [facility] daily. albuterol 2021-0 Yes [id number] 2{puff} Inhale 2 [facility] 90 8-26 Puffs ity of mcg/actuati 00:00: every 6 [place] as on inhaler 00 (six) Medical hours as [facility] needed for Wheezing or Shortness of Breath. omeprazole 2021-0 Yes [id number] 40mg Take 2 [facility] 20 mg 8-26 capsules ity of capsule 00:00: by mouth 2 [place] 00 (two) [facility] times [facility] daily. pravastatin 2021-0 Yes [id number] 10mg Take 1 [facility] 10 mg 8-26 tablet by ity of tablet 00:00: mouth at [place] 00 bedtime. [facility] topiramate 2021-0 Yes [id number] 100mg Take 1 [facility] 100 mg 8-26 tablet by ity of tablet 00:00: mouth 2 (two) Medical times [facility] daily. baclofen 5 2021-0 Yes [id number] 5mg Take 1 [facility] mg tablet 8-26 9102 tablet by ity o f 00:00: mouth 3 (three) Medical times [facility] daily. albuterol 2021-0 Yes [id number] 2{puff} Inhale 2 [facility] 90 8-26 Puffs ity of mcg/actuati 00:00: every 6 [place] as on inhaler 00 (six) Medical hours as [facility] needed for Wheezing or Shortness of Breath. omeprazole 2021-0 Yes [id number] 40mg Take 2 [facility] 20 mg 8-26 capsules ity of capsule 00:00: by mouth 2 [place] 00 (two) [facility] times [facility] daily. pravastatin 2021-0 Yes [id number] 10mg Take 1 [facility] 10 mg 8-26 tablet by ity of tablet 00:00: mouth at [place] 00 bedtime. [facility] topiramate 2021-0 Yes [id number] 100mg Take 1 [facility] 100 mg 8-26 tablet by ity of tablet 00:00: mouth 2 00 (two) Medical times [facility] daily. baclofen 5 2021-0 Yes [id number] 5mg Take 1 [facility] mg tablet 8-26 9102 tablet by ity o f 00:00: mouth 3 (three) Medical times [facility] daily. albuterol 2021-0 Yes [id number] 2{puff} Inhale 2 [facility] 90 8-26 Puffs ity of mcg/actuati 00:00: every 6 [place] as on inhaler 00 (six) Medical hours as [facility] needed for Wheezing or Shortness of Breath. omeprazole 2-0 Yes [id number] 40mg Take 2 [facility] 20 mg 8-26 capsules it[facility] of capsule 00:00: by mouth 2 [place] (two) [facility] times [facility] daily. pravastatin 2021-0 Yes [id number] 10mg Take 1 [facility] 10 mg 8-26 tablet by ity of tablet 00:00: mouth at [place] bedtime. [facility] topiramate 2021-0 Yes [id number] 100mg Take 1 [facility] 100 mg 8-26 tablet by ity of tablet 00:00: mouth (two) Medical times [facility] daily. baclofen 5 2021-0 Yes [id number] 5mg Take 1 [facility] mg tablet 8-26 9102 tablet by ity o f 00:00: mouth 3 (three) Medical times [facility] daily. albuterol 2021-0 Yes [id number] 2{puff} Inhale 2 [facility] 90 8-26 Puffs ity of mcg/actuati 00:00: every 6 [place] as on inhaler 00 (six) Medical hours as [facility] needed for Wheezing or Shortness of Breath. omeprazole 2-0 Yes [id number] 40mg Take 2 [facility] 20 mg 8-26 capsules ity of capsule 00:00: by mouth 2 (two) Medical times [facility] daily. pravastatin 2-0 Yes [id number] 10mg Take 1 [facility] 10 mg 8-26 tablet by [facility]y of tablet 00:00: mouth at 00 bedtime. [facility] topiramate 2-0 Yes [id number] 100mg Take 1 [facility] 100 mg 8-26 tablet by ity of tablet 00:00: mouth (two) Medical times [facility] daily. baclofen 5 2021-0 Yes [id number] 5mg Take 1 [facility] mg tablet 8-26 9102 tablet by ity o f 00:00: mouth 3 (three) Medical times [facility] daily. albuterol 2022-0 Yes [id number] 2{puff} Inhale 2 [facility] 90 8-26 Puffs ity of mcg/actuati 00:00: every 6 [place] as on inhaler 00 (six) Medical hours as [facility] needed for Wheezing or Shortness of Breath. omeprazole 2021-0 Yes [id number] 40mg Take 2 [facility] 20 mg 8-26 capsules [facility] of capsule 00:00: by mouth 2 [place] 00 (two) [facility] times [facility] daily. pravastatin 2021-0 Yes [id number] 10mg Take 1 [facility] 10 mg 8-26 tablet by [facility]y of tablet 00:00: mouth at 00 bedtime. [facility] topiramate 2021-0 Yes [id number] 100mg Take 1 [facility] 100 mg 8-26 tablet by ity of tablet 00:00: mouth 2 (two) Medical times [facility] daily. baclofen 5 2021-0 Yes [id number] 5mg Take 1 [facility] mg tablet 8-26 9102 tablet by ity o f 00:00: mouth 3 (three) Medical times [facility] daily. albuterol 2021-0 Yes [id number] 2{puff} Inhale 2 [facility] 90 8-26 Puffs ity of mcg/actuati 00:00: every 6 [place] as on inhaler 00 (six) Medical hours as [facility] needed for Wheezing or Shortness of Breath. omeprazole 2021-0 Yes [id number] 40mg Take 2 [facility] 20 mg 8-26 capsules [facility] of capsule 00:00: by mouth 2 [place] (two) [facility] times [facility] daily. pravastatin 2021-0 Yes [id number] 10mg Take 1 [facility] 10 mg 8-26 tablet by ity of tablet 00:00: mouth at 00 bedtime. [facility] topiramate 2021-0 Yes [id number] 100mg Take 1 [facility] 100 mg 8-26 tablet by ity of tablet 00:00: mouth 2 (two) Medical times [facility] daily. baclofen 5 2021-0 Yes [id number] 5mg Take 1 [facility] mg tablet 8-26 9102 tablet by ity o f 00:00: mouth 3 (three) Medical times [facility] daily. albuterol 2021-0 Yes [id number] 2{puff} Inhale 2 [facility] 90 8-26 Puffs ity of mcg/actuati 00:00: every 6 [place] as on inhaler 00 (six) Medical hours as [facility] needed for Wheezing or Shortness of Breath. omeprazole 2021-0 Yes [id number] 40mg Take 2 [facility] 20 mg 8-26 capsules it[facility] of capsule 00:00: by mouth 2 [place] 00 (two) [facility] times [facility] daily. pravastatin 2-0 Yes [id number] 10mg Take 1 [facility] 10 mg 8-26 tablet by ity of tablet 00:00: mouth at [place] 00 bedtime. [facility] topiramate 2021-0 Yes [id number] 100mg Take 1 [facility] 100 mg 8-26 tablet by ity of tablet 00:00: mouth 2 00 (two) Medical times [facility] daily. baclofen 5 2021-0 Yes [id number] 5mg Take 1 [facility] mg tablet 8-26 9102 tablet by ity o f 00:00: mouth 3 (three) Medical times [facility] daily. albuterol 2021-0 Yes [id number] 2{puff} Inhale 2 [facility] 90 8-26 Puffs ity of mcg/actuati 00:00: every 6 [place] as on inhaler 00 (six) Medical hours as [facility] needed for Wheezing or Shortness of Breath. omeprazole 2021-0 Yes [id number] 40mg Take 2 [facility] 20 mg 8-26 capsules it[facility] of capsule 00:00: by mouth 2 [place] 00 (two) [facility] times [facility] daily. pravastatin 2021-0 Yes [id number] 10mg Take 1 [facility] 10 mg 8-26 tablet by ity of tablet 00:00: mouth at [place] 00 bedtime. [facility] topiramate 2021-0 Yes [id number] 100mg Take 1 [facility] 100 mg 8-26 tablet by ity of tablet 00:00: mouth 2 00 (two) Medical times [facility] daily. baclofen 5 2021-0 Yes [id number] 5mg Take 1 [facility] mg tablet 8-26 9102 tablet by ity o f 00:00: mouth 3 (three) Medical times [facility] daily. albuterol 2021-0 Yes [id number] 2{puff} Inhale 2 [facility] 90 8-26 Puffs ity of mcg/actuati 00:00: every 6 [place] as on inhaler 00 (six) Medical hours as [facility] needed for Wheezing or Shortness of Breath. omeprazole 2-0 Yes [id number] 40mg Take 2 [facility] 20 mg 8-26 capsules [facility] of capsule 00:00: by mouth 2 [place] 00 (two) [facility] times [facility] daily. pravastatin 2022-0 Yes [id number] 10mg Take 1 [facility] 10 mg 8-26 tablet by [facility]y of tablet 00:00: mouth at [place] 00 bedtime. [facility] topiramate 2021-0 Yes [id number] 100mg Take 1 [facility] 100 mg 8-26 tablet by ity of tablet 00:00: mouth 2 00 (two) Medical times [facility] daily. baclofen 5 2021-0 Yes [id number] 5mg Take 1 [facility] mg tablet 8-26 9102 tablet by ity o f 00:00: mouth 3 (three) Medical times [facility] daily. albuterol 2021-0 Yes [id number] 2{puff} Inhale 2 [facility] 90 8-26 Puffs ity of mcg/actuati 00:00: every 6 [place] as on inhaler 00 (six) Medical hours as [facility] needed for Wheezing or Shortness of Breath. omeprazole 2-0 Yes [id number] 40mg Take 2 [facility] 20 mg 8-26 capsules [facility] of capsule 00:00: by mouth 2 [place] 00 (two) [facility] times [facility] daily. pravastatin 2021-0 Yes [id number] 10mg Take 1 [facility] 10 mg 8-26 tablet by [facility]y of tablet 00:00: mouth at [place] 00 bedtime. [facility] topiramate 2021-0 Yes [id number] 100mg Take 1 [facility] 100 mg 8-26 tablet by [facility]y of tablet 00:00: mouth 2 (two) Medical times [facility] daily. baclofen 5 2021-0 Yes [id number] 5mg Take 1 [facility] mg tablet 8-26 9102 tablet by ity o f 00:00: mouth 3 (three) Medical times [facility] daily. albuterol 2-0 Yes [id number] 2{puff} Inhale 2 [facility] 90 8-26 Puffs ity of mcg/actuati 00:00: every 6 [place] as on inhaler 00 (six) Medical hours as [facility] needed for Wheezing or Shortness of Breath. omeprazole 2-0 Yes [id number] 40mg Take 2 [facility] 20 mg 8-26 capsules [facility] of capsule 00:00: by mouth 2 [place] (two) [facility] times [facility] daily. pravastatin 2021-0 Yes [id number] 10mg Take 1 [facility] 10 mg 8-26 tablet by [facility] of tablet 00:00: mouth at 00 bedtime. [facility] topiramate 2021-0 Yes [id number] 100mg Take 1 [facility] 100 mg 8-26 tablet by [facility]y of tablet 00:00: mouth 2 (two) Medical times [facility] daily. baclofen 5 2021-0 Yes [id number] 5mg Take 1 [facility] mg tablet 8-26 9102 tablet by [facility]y o f 00:00: mouth 3 (three) Medical times [facility] daily. albuterol 2021-0 Yes [id number] 2{puff} Inhale 2 [facility] 90 8-26 Puffs ity of mcg/actuati 00:00: every 6 [place] as on inhaler 00 (six) Medical hours as [facility] needed for Wheezing or Shortness of Breath. omeprazole 2021-0 Yes [id number] 40mg Take 2 [facility] 20 mg 8-26 capsules [facility] of capsule 00:00: by mouth [place] (two) [facility] times [facility] daily. pravastatin 2021-0 Yes [id number] 10mg Take 1 [facility] 10 mg 8-26 tablet by [facility] of tablet 00:00: mouth at [place] 00 bedtime. [facility] topiramate 2021-0 Yes [id number] 100mg Take 1 [facility] 100 mg 8-26 tablet by [facility] of tablet 00:00: mouth 2 (two) Medical times [facility] daily. baclofen 5 2021-0 Yes [id number] 5mg Take 1 [facility] mg tablet 8-26 9102 tablet by [facility] o f 00:00: mouth 3 (three) Medical times [facility] daily. albuterol 2021-0 Yes [id number] 2{puff} Inhale 2 [facility] 90 8-26 Puffs [facility] of mcg/actuati 00:00: every 6 [place] as on inhaler 00 (six) Medical hours as [facility] needed for Wheezing or Shortness of Breath. omeprazole 2-0 Yes [id number] 40mg Take 2 [facility] 20 mg 8-26 capsules [facility] capsule 00:00: by mouth 2 [place] 00 (two) [facility] times [facility] daily. pravastatin 2022-0 Yes [id number] 10mg Take 1 [facility] 10 mg 8-26 tablet by [facility] of tablet 00:00: mouth at [place] 00 bedtime. [facility] topiramate 2021-0 Yes [id number] 100mg Take 1 [facility] 100 mg 8-26 tablet by [facility] of tablet 00:00: mouth 2 (two) Medical times [facility] daily. baclofen 5 2021-0 Yes [id number] 5mg Take 1 [facility] mg tablet 8-26 9102 tablet by [facility] o f 00:00: mouth 3 (three) Medical times [facility] daily. albuterol 2021-0 Yes [id number] 2{puff} Inhale 2 [facility] 90 8-26 Puffs [facility] of mcg/actuati 00:00: every 6 [place] as on inhaler 00 (six) Medical hours as [facility] needed for Wheezing or Shortness of Breath. omeprazole 2021-0 Yes [id number] 40mg Take 2 [facility] 20 mg 8-26 capsules [facility] capsule 00:00: [place] mouth [place] (two[place] [facility] times [facility] daily. pravastatin 2021-0 Yes [id number] 10mg Take 1 [facility] 10 mg 8-26 tablet by [facility] of tablet 00:00: mouth at [place] bedtime. [facility] topiramate 2021-0 Yes [id number] 100mg Take 1 [facility] 100 mg 8-26 tablet by [facility] of tablet 00:00: mouth 2 (two) Medical times [facility] daily. baclofen 5 2021-0 Yes [id number] 5mg Take 1 [facility] mg tablet 8-26 9102 tablet by [facility] o f 00:00: mouth 3 (three) Medical times [facility] daily. albuterol 2021-0 Yes [id number] 2{puff} Inhale 2 [facility] 90 8-26 Puffs [facility] of mcg/actuati 00:00: every 6 [place] as on inhaler 00 (six) Medical hours as [facility] needed for Wheezing or Shortness of Breath. omeprazole 2-0 Yes [id number] 40mg Take 2 [facility] 20 mg 8-26 capsules [facility] capsule 00:00: by mouth [place] 00 (two) [facility] times [facility] daily. pravastatin 2021-0 Yes [id number] 10mg Take 1 [facility] 10 mg 8-26 tablet by [facility] of tablet 00:00: mouth at [place] 00 bedtime. [facility] topiramate 2021-0 Yes [id number] 100mg Take 1 [facility] 100 mg 8-26 tablet by [facility] of tablet 00:00: mouth 2 00 (two) Medical times [facility] daily. baclofen 5 2021-0 Yes [id number] 5mg Take 1 [facility] mg tablet 8-26 9102 tablet by [facility] o f 00:00: mouth 3 00 (three) Medical times [facility] daily. albuterol 2021-0 Yes [id number] 2{puff} Inhale 2 [facility] 90 8-26 Puffs [facility] of mcg/actuati 00:00: every 6 [place] as on inhaler 00 (six) Medical hours as [facility] needed for Wheezing or Shortness of Breath. omeprazole 2021-0 Yes [id number] 40mg Take 2 [facility] 20 mg 8-26 capsules [facility] capsule 00:00: by mouth [place] (two) [facility] times [facility] daily. pravastatin 2021-0 Yes [id number] 10mg Take 1 [facility] 10 mg 8-26 tablet by [facility] of tablet 00:00: mouth at [place] 00 bedtime. [facility] topiramate 2021-0 Yes [id number] 100mg Take 1 [facility] 100 mg 8-26 tablet by [facility] of tablet 00:00: mouth 2 (two) Medical times [facility] daily. baclofen 5 2021-0 Yes [id number] 5mg Take 1 [facility] mg tablet 8-26 9102 tablet by [facility] o f 00:00: mouth 3 (three) Medical times [facility] daily. albuterol 2021-0 Yes [id number] 2{puff} Inhale 2 [facility] 90 8-26 Puffs [facility] of mcg/actuati 00:00: every 6 [place] as on inhaler 00 (six) Medical hours as [facility] needed for Wheezing or Shortness of Breath. omeprazole 2-0 Yes [id number] 40mg Take 2 [facility] 20 mg 8-26 capsules [facility] capsule 00:00: by mouth 2 [place] 00 (two) [facility] times [facility] daily. pravastatin 2-0 Yes [id number] 10mg Take 1 [facility] 10 mg 8-26 tablet by [facility] of tablet 00:00: mouth at [place] 00 bedtime. [facility] topiramate 2021-0 Yes [id number] 100mg Take 1 [facility] 100 mg 8-26 tablet by [facility] of tablet 00:00: mouth 2 (two) Medical times [facility] daily. baclofen 5 2021-0 Yes [id number] 5mg Take 1 [facility] mg tablet 8-26 9102 tablet by [facility] o f 00:00: mouth 3 (three) Medical times [facility] daily. albuterol 2021-0 Yes [id number] 2{puff} Inhale 2 [facility] 90 8-26 Puffs [facility] of mcg/actuati 00:00: every 6 [place] as on inhaler 00 (six) Medical hours as [facility] needed for Wheezing or Shortness of Breath. omeprazole 2021-0 Yes [id number] 40mg Take 2 [facility] 20 mg 8-26 capsules [facility] of capsule 00:00: by mouth 2 [place] (two) [facility] times [facility] daily. pravastatin 2021-0 Yes [id number] 10mg Take 1 [facility] 10 mg 8-26 tablet by [facility] of tablet 00:00: mouth at [place] 00 bedtime. [facility] topiramate 2021-0 Yes [id number] 100mg Take 1 [facility] 100 mg 8-26 tablet by [facility] of tablet 00:00: mouth 2 (two) Medical times [facility] daily. baclofen 5 2021-0 Yes [id number] 5mg Take 1 [facility] mg tablet 8-26 9102 tablet by [facility] o f 00:00: mouth 3 (three) Medical times [facility] daily. albuterol 2021-0 Yes [id number] 2{puff} Inhale 2 [facility] 90 8-26 Puffs [facility] of mcg/actuati 00:00: every 6 [place] as on inhaler 00 (six) Medical hours as [facility] needed for Wheezing or Shortness of Breath. omeprazole 2021-0 Yes [id number] 40mg Take 2 [facility] 20 mg 8-26 capsules [facility] capsule 00:00: [place] mouth [place] (two) [facility] times [facility] daily. pravastatin 2021-0 Yes [id number] 10mg Take 1 [facility] 10 mg 8-26 tablet by [facility] of tablet 00:00: mouth at 00 bedtime. [facility] topiramate 2021-0 Yes [id number] 100mg Take 1 [facility] 100 mg 8-26 tablet by [facility] of tablet 00:00: mouth 2 (two) Medical times [facility] daily. baclofen 5 2021-0 Yes [id number] 5mg Take 1 [facility] mg tablet 8-26 9102 tablet by [facility] o f 00:00: mouth 3 00 (three) Medical times [facility] daily. albuterol 2021-0 Yes [id number] 2{puff} Inhale 2 [facility] 90 8-26 Puffs [facility] of mcg/actuati 00:00: every 6 [place] as on inhaler 00 (six) Medical hours as [facility] needed for Wheezing or Shortness of Breath. omeprazole 2021-0 Yes [id number] 40mg Take 2 [facility] 20 mg 8-26 capsules [facility] of capsule 00:00: by mouth 2 [place] 00 (two) [facility] times [facility] daily. pravastatin 2021-0 Yes [id number] 10mg Take 1 [facility] 10 mg 8-26 tablet by [facility] of tablet 00:00: mouth at [place] 00 bedtime. [facility] topiramate 2021-0 Yes [id number] 100mg Take 1 [facility] 100 mg 8-26 tablet by [facility] of tablet 00:00: mouth 2 (two) Medical times [facility] daily. baclofen 5 2021-0 Yes [id number] 5mg Take 1 [facility] mg tablet 8-26 9102 tablet by [facility] o f 00:00: mouth 3 (three) Medical times [facility] daily. albuterol 2021-0 Yes [id number] 2{puff} Inhale 2 [facility] 90 8-26 Puffs [facility] of mcg/actuati 00:00: every 6 [place] on inhaler 00 (six) Medical hours as [facility] needed for Wheezing or Shortness of Breath. omeprazole 2021-0 Yes [id number] 40mg Take 2 [facility] 20 mg 8-26 capsules [facility] of capsule 00:00: by mouth 2 [place] 00 (two) [facility] times [facility] daily. pravastatin 2-0 Yes [id number] 10mg Take 1 [facility] 10 mg 8-26 tablet by [facility] of tablet 00:00: mouth at [place] 00 bedtime. [facility] topiramate 2021-0 Yes [id number] 100mg Take 1 [facility] 100 mg 8-26 tablet by [facility] of tablet 00:00: mouth 2 00 (two) Medical times [facility] daily. baclofen 5 2021-0 Yes [id number] 5mg Take 1 [facility] mg tablet 8-26 9102 tablet by [facility] o f 00:00: mouth 3 (three) Medical times [facility] daily. albuterol 2022-0 Yes [id number] 2{puff} Inhale 2 [facility] 90 8-26 Puffs [facility] of mcg/actuati 00:00: every 6 [place] on inhaler 00 (six) Medical hours as [facility] needed for Wheezing or Shortness of Breath. omeprazole 2022-0 Yes [id number] 40mg Take 2 [facility] 20 mg 8-26 capsules [facility] capsule 00:00: by mouth 2 [place] (two) [facility] times [facility] daily. pravastatin 2021-0 Yes [id number] 10mg Take 1 [facility] 10 mg 8-26 tablet by [facility] of tablet 00:00: mouth at [place] 00 bedtime. [facility] topiramate 2021-0 Yes [id number] 100mg Take 1 [facility] 100 mg 8-26 tablet by [facility] of tablet 00:00: mouth 2 (two) Medical times [facility] daily. baclofen 5 2021-0 Yes [id number] 5mg Take 1 [facility] mg tablet 8-26 9102 tablet by [facility] o f 00:00: mouth 3 (three) Medical times [facility] daily. albuterol 2021-0 Yes [id number] 2{puff} Inhale 2 [facility] 90 8-26 Puffs [facility] of mcg/actuati 00:00: every 6 [place] as on inhaler 00 (six) Medical hours as [facility] needed for Wheezing or Shortness of Breath. omeprazole 2021-0 Yes [id number] 40mg Take 2 [facility] 20 mg 8-26 capsules [facility] of capsule 00:00: by mouth 2 (two) Medical times [facility] daily. pravastatin 2-0 Yes [id number] 10mg Take 1 [facility] 10 mg 8-26 tablet by [facility] of tablet 00:00: mouth at [place] 00 bedtime. [facility] topiramate 2021-0 Yes [id number] 100mg Take 1 [facility] 100 mg 8-26 tablet by [facility] of tablet 00:00: mouth 2 (two) Medical times [facility] daily. baclofen 5 2021-0 Yes [id number] 5mg Take 1 [facility] mg tablet 8-26 9102 tablet by [facility] o f 00:00: mouth 3 (three) Medical times [facility] daily. albuterol 2022-0 Yes [id number] 2{puff} Inhale 2 [facility] 90 8-26 Puffs [facility] of mcg/actuati 00:00: every 6 [place] on inhaler 00 (six) Medical hours as [facility] needed for Wheezing or Shortness of Breath. omeprazole 2021-0 Yes [id number] 40mg Take 2 [facility] 20 mg 8-26 capsules [facility] of capsule 00:00: by mouth 2 [place] 00 (two) [facility] times [facility] daily. pravastatin 2021-0 Yes [id number] 10mg Take 1 [facility] 10 mg 8-26 tablet by [facility] of tablet 00:00: mouth at [place] 00 bedtime. [facility] topiramate 2021-0 Yes [id number] 100mg Take 1 [facility] 100 mg 8-26 tablet by [facility] of tablet 00:00: mouth 2 (two) Medical times [facility] daily. baclofen 5 2021-0 Yes [id number] 5mg Take 1 [facility] mg tablet 8-26 9102 tablet by [facility] o f 00:00: mouth 3 (three) Medical times [facility] daily. albuterol 2021-0 Yes [id number] 2{puff} Inhale 2 [facility] 90 8-26 Puffs [facility] of mcg/actuati 00:00: every 6 [place] on inhaler 00 (six) Medical hours as [facility] needed for Wheezing or Shortness of Breath. omeprazole 2021-0 Yes [id number] 40mg Take 2 [facility] 20 mg 8-26 capsules [facility] of capsule 00:00: by mouth 2 [place] 00 (two) [facility] times [facility] daily. pravastatin 2021-0 Yes [id number] 10mg Take 1 [facility] 10 mg 8-26 tablet by [facility] of tablet 00:00: mouth at 00 bedtime. [facility] topiramate 2021-0 Yes [id number] 100mg Take 1 [facility] 100 mg 8-26 tablet by [facility] of tablet 00:00: mouth 2 (two) Medical times [facility] daily. baclofen 5 2021-0 Yes [id number] 5mg Take 1 [facility] mg tablet 8-26 9102 tablet by [facility] o f 00:00: mouth 3 (three) Medical times [facility] daily. albuterol 2021-0 Yes [id number] 2{puff} Inhale 2 [facility] 90 8-26 Puffs [facility] of mcg/actuati 00:00: every 6 [place] on inhaler 00 (six) Medical hours as [facility] needed for Wheezing or Shortness of Breath. omeprazole 2022-0 Yes [id number] 40mg Take 2 [facility] 20 mg 8-26 capsules [facility] of capsule 00:00: by mouth 2 [place] 00 (two) [facility] times [facility] daily. pravastatin 2022-0 Yes [id number] 10mg Take 1 [facility] 10 mg 8-26 tablet by [facility] of tablet 00:00: mouth at [place] 00 bedtime. [facility] topiramate 2021-0 Yes [id number] 100mg Take 1 [facility] 100 mg 8-26 tablet by [facility] of tablet 00:00: mouth 2 00 (two) Medical times [facility] daily. baclofen 5 2021-0 Yes [id number] 5mg Take 1 [facility] mg tablet 8-26 9102 tablet by [facility] o f 00:00: mouth 3 (three) Medical times [facility] daily. albuterol 2021-0 Yes [id number] 2{puff} Inhale 2 [facility] 90 8-26 Puffs [facility] of mcg/actuati 00:00: every 6 [place] on inhaler 00 (six) Medical hours as [facility] needed for Wheezing or Shortness of Breath. omeprazole 2021-0 Yes [id number] 40mg Take 2 [facility] 20 mg 8-26 capsules [facility] of capsule 00:00: by mouth 2 [place] 00 (two) [facility] times [facility] daily. pravastatin 2021-0 Yes [id number] 10mg Take 1 [facility] 10 mg 8-26 tablet by [facility] of tablet 00:00: mouth at [place] 00 bedtime. [facility] topiramate 2021-0 Yes [id number] 100mg Take 1 [facility] 100 mg 8-26 tablet by [facility] of tablet 00:00: mouth 2 00 (two) Medical times [facility] daily. baclofen 5 2021-0 Yes [id number] 5mg Take 1 [facility] mg tablet 8-26 9102 tablet by [facility] o f 00:00: mouth 3 00 (three) Medical times [facility] daily. albuterol 202-0 Yes [id number] 2{puff} Inhale 2 [facility] 90 8-26 Puffs [facility] of mcg/actuati 00:00: every 6 [place] on inhaler 00 (six) Medical hours as [facility] needed for Wheezing or Shortness of Breath. omeprazole 2022-0 Yes [id number] 40mg Take 2 [facility] 20 mg 8-26 capsules [facility] of capsule 00:00: by mouth 2 [place] 00 (two) [facility] times [facility] daily. pravastatin 2022-0 Yes [id number] 10mg Take 1 [facility] 10 mg 8-26 tablet by [facility] of tablet 00:00: mouth at [place] 00 bedtime. [facility] topiramate 2021-0 Yes [id number] 100mg Take 1 [facility] 100 mg 8-26 tablet by [facility] of tablet 00:00: mouth 2 00 (two) Medical times [facility] daily. baclofen 5 2021-0 Yes [id number] 5mg Take 1 [facility] mg tablet 8-26 9102 tablet by [facility] o f 00:00: mouth 3 (three) Medical times [facility] daily. albuterol 2021-0 Yes [id number] 2{puff} Inhale 2 [facility] 90 8-26 Puffs [facility] of mcg/actuati 00:00: every 6 [place] as on inhaler 00 (six) Medical hours as [facility] needed for Wheezing or Shortness of Breath. omeprazole 2021-0 Yes [id number] 40mg Take 2 [facility] 20 mg 8-26 capsules [facility] of capsule 00:00: by mouth 2 [place] 00 (two) [facility] times [facility] daily. pravastatin 2021-0 Yes [id number] 10mg Take 1 [facility] 10 mg 8-26 tablet by [facility] of tablet 00:00: mouth at [place] 00 bedtime. [facility] topiramate 2021-0 Yes [id number] 100mg Take 1 [facility] 100 mg 8-26 tablet by [facility] of tablet 00:00: mouth 2 (two) Medical times [facility] daily. baclofen 5 2021-0 Yes [id number] 5mg Take 1 [facility] mg tablet 8-26 9102 tablet by [facility] o f 00:00: mouth 3 (three) Medical times [facility] daily. albuterol 2022-0 Yes [id number] 2{puff} Inhale 2 [facility] 90 8-26 Puffs [facility] of mcg/actuati 00:00: every 6 [place] as on inhaler 00 (six) Medical hours as [facility] needed for Wheezing or Shortness of Breath. omeprazole 2-0 Yes [id number] 40mg Take 2 [facility] 20 mg 8-26 capsules [facility] of capsule 00:00: by mouth 2 [place] 00 (two) [facility] times [facility] daily. pravastatin 2021-0 Yes [id number] 10mg Take 1 [facility] 10 mg 8-26 tablet by [facility] of tablet 00:00: mouth at [place] 00 bedtime. [facility] topiramate 2021-0 Yes [id number] 100mg Take 1 [facility] 100 mg 8-26 tablet by [facility] of tablet 00:00: mouth 2 00 (two) Medical times [facility] daily. baclofen 5 2021-0 Yes [id number] 5mg Take 1 [facility] mg tablet 8-26 9102 tablet by [facility] o f 00:00: mouth 3 (three) Medical times [facility] daily. albuterol 2021-0 Yes [id number] 2{puff} Inhale 2 [facility] 90 8-26 Puffs [facility] of mcg/actuati 00:00: every 6 [place] as on inhaler 00 (six) Medical hours as [facility] needed for Wheezing or Shortness of Breath. omeprazole 2021-0 Yes [id number] 40mg Take 2 [facility] 20 mg 8-26 capsules [facility] of capsule 00:00: by mouth 2 [place] (two) [facility] times [facility] daily. pravastatin 2021-0 Yes [id number] 10mg Take 1 [facility] 10 mg 8-26 tablet by [facility] of tablet 00:00: mouth at [place] 00 bedtime. [facility] topiramate 2021-0 Yes [id number] 100mg Take 1 [facility] 100 mg 8-26 tablet by [facility] of tablet 00:00: mouth 2 (two) Medical times [facility] daily. baclofen 5 2021-0 Yes [id number] 5mg Take 1 [facility] mg tablet 8-26 9102 tablet by [facility] o f 00:00: mouth 3 (three) Medical times [facility] daily. albuterol 2021-0 Yes [id number] 2{puff} Inhale 2 [facility] 90 8-26 Puffs [facility] of mcg/actuati 00:00: every 6 [place] as on inhaler 00 (six) Medical hours as [facility] needed for Wheezing or Shortness of Breath. omeprazole 2-0 Yes [id number] 40mg Take 2 [facility] 20 mg 8-26 capsules [facility] of capsule 00:00: by mouth 2 [place] 00 (two) [facility] times [facility] daily. pravastatin 2022-0 Yes [id number] 10mg Take 1 [facility] 10 mg 8-26 tablet by [facility] of tablet 00:00: mouth at [place] 00 bedtime. [facility] topiramate 2021-0 Yes [id number] 100mg Take 1 [facility] 100 mg 8-26 tablet by [facility] of tablet 00:00: mouth 2 00 (two) Medical times [facility] daily. baclofen 5 2021-0 Yes [id number] 5mg Take 1 [facility] mg tablet 8-26 9102 tablet by [facility] o f 00:00: mouth 3 00 (three) Medical times [facility] daily. albuterol 2021-0 Yes [id number] 2{puff} Inhale 2 [facility] 90 8-26 Puffs [facility]y of mcg/actuati 00:00: every 6 [place] as on inhaler 00 (six) Medical hours as [facility] needed for Wheezing or Shortness of Breath. omeprazole 2021-0 Yes [id number] 40mg Take 2 [facility] 20 mg 8-26 capsules [facility] of capsule 00:00: by mouth 2 [place] (two) [facility] times [facility] daily. pravastatin 2021-0 Yes [id number] 10mg Take 1 [facility] 10 mg 8-26 tablet by [facility] of tablet 00:00: mouth at [place] 00 bedtime. [facility] topiramate 2021-0 Yes [id number] 100mg Take 1 [facility] 100 mg 8-26 tablet by [facility] of tablet 00:00: mouth 2 (two) Medical times [facility] daily. baclofen 5 2021-0 Yes [id number] 5mg Take 1 [facility] mg tablet 8-26 9102 tablet by [facility] o f 00:00: mouth 3 (three) Medical times [facility] daily. albuterol 2021-0 Yes [id number] 2{puff} Inhale 2 [facility] 90 8-26 Puffs [facility]y of mcg/actuati 00:00: every 6 [place] as on inhaler 00 (six) Medical hours as [facility] needed for Wheezing or Shortness of Breath. omeprazole 2-0 Yes [id number] 40mg Take 2 [facility] 20 mg 8-26 capsules [facility] of capsule 00:00: by mouth 2 [place] 00 (two) [facility] times [facility] daily. pravastatin 2021-0 Yes [id number] 10mg Take 1 [facility] 10 mg 8-26 tablet by [facility] of tablet 00:00: mouth at [place] 00 bedtime. [facility] topiramate 2021-0 Yes [id number] 100mg Take 1 [facility] 100 mg 8-26 tablet by [facility] of tablet 00:00: mouth 2 (two) Medical times [facility] daily. baclofen 5 2021-0 Yes [id number] 5mg Take 1 [facility] mg tablet 8-26 9102 tablet by [facility] o f 00:00: mouth 3 (three) Medical times [facility] daily. albuterol 2021-0 Yes [id number] 2{puff} Inhale 2 [facility] 90 8-26 Puffs [facility]y of mcg/actuati 00:00: every 6 [place] as on inhaler 00 (six) Medical hours as [facility] needed for Wheezing or Shortness of Breath. omeprazole 2021-0 Yes [id number] 40mg Take 2 [facility] 20 mg 8-26 capsules [facility] of capsule 00:00: by mouth 2 [place] 00 (two) [facility] times [facility] daily. pravastatin 2021-0 Yes [id number] 10mg Take 1 [facility] 10 mg 8-26 tablet by [facility] of tablet 00:00: mouth at [place] bedtime. [facility] topiramate 2021-0 Yes [id number] 100mg Take 1 [facility] 100 mg 8-26 tablet by [facility] of tablet 00:00: mouth 2 (two) Medical times [facility] daily. baclofen 5 2021-0 Yes [id number] 5mg Take 1 [facility] mg tablet 8-26 9102 tablet by [facility] o f 00:00: mouth 3 (three) Medical times [facility] daily. albuterol 2021-0 Yes [id number] 2{puff} Inhale 2 [facility] 90 8-26 Puffs [facility] of mcg/actuati 00:00: every 6 [place] as on inhaler 00 (six) Medical hours as [facility] needed for Wheezing or Shortness of Breath. omeprazole 2-0 Yes [id number] 40mg Take 2 [facility] 20 mg 8-26 capsules [facility] of capsule 00:00: by mouth 2 [place] 00 (two) [facility] times [facility] daily. pravastatin 2-0 Yes [id number] 10mg Take 1 [facility] 10 mg 8-26 tablet by [facility] of tablet 00:00: mouth at [place] 00 bedtime. [facility] topiramate 2021-0 Yes [id number] 100mg Take 1 [facility] 100 mg 8-26 tablet by [facility] of tablet 00:00: mouth 2 00 (two) Medical times [facility] daily. baclofen 5 2021-0 Yes [id number] 5mg Take 1 [facility] mg tablet 8-26 9102 tablet by [facility] o f 00:00: mouth 3 (three) Medical times [facility] daily. albuterol 2021-0 Yes [id number] 2{puff} Inhale 2 [facility] 90 8-26 Puffs [facility]y of mcg/actuati 00:00: every 6 [place] as on inhaler 00 (six) Medical hours as [facility] needed for Wheezing or Shortness of Breath. omeprazole 2021-0 Yes [id number] 40mg Take 2 [facility] 20 mg 8-26 capsules [facility] of capsule 00:00: by mouth 2 [place] (two) [facility] times [facility] daily. pravastatin 2021-0 Yes [id number] 10mg Take 1 [facility] 10 mg 8-26 tablet by [facility] of tablet 00:00: mouth at [place] 00 bedtime. [facility] topiramate 2021-0 Yes [id number] 100mg Take 1 [facility] 100 mg 8-26 tablet by [facility] of tablet 00:00: mouth 2 (two) Medical times [facility] daily. baclofen 5 2021-0 Yes [id number] 5mg Take 1 [facility] mg tablet 8-26 9102 tablet by [facility] o f 00:00: mouth 3 (three) Medical times [facility] daily. albuterol 2021-0 Yes [id number] 2{puff} Inhale 2 [facility] 90 8-26 Puffs [facility]y of mcg/actuati 00:00: every 6 [place] as on inhaler 00 (six) Medical hours as [facility] needed for Wheezing or Shortness of Breath. omeprazole 2-0 Yes [id number] 40mg Take 2 [facility] 20 mg 8-26 capsules [facility] of capsule 00:00: by mouth 2 [place] (two) [facility] times [facility] daily. pravastatin 2022-0 Yes [id number] 10mg Take 1 [facility] 10 mg 8-26 tablet by [facility] of tablet 00:00: mouth at [place] 00 bedtime. [facility] topiramate 2-0 Yes [id number] 100mg Take 1 [facility] 100 mg 8-26 tablet by [facility] of tablet 00:00: mouth 2 (two) Medical times [facility] daily. baclofen 5 2021-0 Yes [id number] 5mg Take 1 [facility] mg tablet 8-26 9102 tablet by [facility] o f 00:00: mouth 3 (three) Medical times [facility] daily. albuterol 2021-0 Yes [id number] 2{puff} Inhale 2 [facility] 90 8-26 Puffs [facility]y of mcg/actuati 00:00: every 6 [place] as on inhaler 00 (six) Medical hours as [facility] needed for Wheezing or Shortness of Breath. omeprazole 2021-0 Yes [id number] 40mg Take 2 [facility] 20 mg 8-26 capsules [facility] of capsule 00:00: by mouth 2 [place] 00 (two) [facility] times [facility] daily. pravastatin 2021-0 Yes [id number] 10mg Take 1 [facility] 10 mg 8-26 tablet by [facility] of tablet 00:00: mouth at [place] 00 bedtime. [facility] topiramate 2021-0 Yes [id number] 100mg Take 1 [facility] 100 mg 8-26 tablet by [facility] of tablet 00:00: mouth 2 (two) Medical times [facility] daily. baclofen 5 2021-0 Yes [id number] 5mg Take 1 [facility] mg tablet 8-26 9102 tablet by [facility] o f 00:00: mouth 3 (three) Medical times [facility] daily. albuterol 2021-0 Yes [id number] 2{puff} Inhale 2 [facility] 90 8-26 Puffs [facility]y of mcg/actuati 00:00: every 6 [place] as on inhaler 00 (six) Medical hours as [facility] needed for Wheezing or Shortness of Breath. omeprazole 2021-0 Yes [id number] 40mg Take 2 [facility] 20 mg 8-26 capsules [facility] of capsule 00:00: by mouth 2 [place] (two) [facility] times [facility] daily. pravastatin 2-0 Yes [id number] 10mg Take 1 [facility] 10 mg 8-26 tablet by [facility] of tablet 00:00: mouth at [place] 00 bedtime. [facility] topiramate 2021-0 Yes [id number] 100mg Take 1 [facility] 100 mg 8-26 tablet by [facility] of tablet 00:00: mouth 2 00 (two) Medical times [facility] daily. baclofen 5 2021-0 Yes [id number] 5mg Take 1 [facility] mg tablet 8-26 9102 tablet by [facility] o f 00:00: mouth 3 (three) Medical times [facility] daily. albuterol 2021-0 Yes [id number] 2{puff} Inhale 2 [facility] 90 8-26 Puffs [facility]y of mcg/actuati 00:00: every 6 [place] as on inhaler 00 (six) Medical hours as [facility] needed for Wheezing or Shortness of Breath. omeprazole 2022-0 Yes [id number] 40mg Take 2 [facility] 20 mg 8-26 capsules [facility] of capsule 00:00: by mouth 2 [place] (two) [facility] times [facility] daily. pravastatin 2021-0 Yes [id number] 10mg Take 1 [facility] 10 mg 8-26 tablet by [facility] of tablet 00:00: mouth at 00 bedtime. [facility] topiramate 2021-0 Yes [id number] 100mg Take 1 [facility] 100 mg 8-26 tablet by [facility] of tablet 00:00: mouth (two) Medical times [facility] daily. baclofen 5 2021-0 Yes [id number] 5mg Take 1 [facility] mg tablet 8-26 9102 tablet by [facility] o f 00:00: mouth 3 (three) Medical times [facility] daily. albuterol 2021-0 Yes [id number] 2{puff} Inhale 2 [facility] 90 8-26 Puffs [facility]y of mcg/actuati 00:00: every 6 [place] as on inhaler 00 (six) Medical hours as [facility] needed for Wheezing or Shortness of Breath. omeprazole 2-0 Yes [id number] 40mg Take 2 [facility] 20 mg 8-26 capsules ity of capsule 00:00: by mouth 2 (two) Medical times [facility] daily. pravastatin 2-0 Yes [id number] 10mg Take 1 [facility] 10 mg 8-26 tablet by [facility] of tablet 00:00: mouth at 00 bedtime. [facility] topiramate 2-0 Yes [id number] 100mg Take 1 [facility] 100 mg 8-26 tablet by [facility] of tablet 00:00: mouth 2 (two) Medical times [facility] daily. baclofen 5 2021-0 Yes [id number] 5mg Take 1 [facility] mg tablet 8-26 9102 tablet by [facility] o f 00:00: mouth 3 (three) Medical times [facility] daily. albuterol 2022-0 Yes [id number] 2{puff} Inhale 2 [facility] 90 8-26 Puffs [facility]y of mcg/actuati 00:00: every 6 [place] as on inhaler 00 (six) Medical hours as [facility] needed for Wheezing or Shortness of Breath. omeprazole 2021-0 Yes [id number] 40mg Take 2 [facility] 20 mg 8-26 capsules [facility] of capsule 00:00: by mouth 2 [place] 00 (two) [facility] times [facility] daily. pravastatin 2021-0 Yes [id number] 10mg Take 1 [facility] 10 mg 8-26 tablet by [facility] of tablet 00:00: mouth at 00 bedtime. [facility] topiramate 2021-0 Yes [id number] 100mg Take 1 [facility] 100 mg 8-26 tablet by [facility] of tablet 00:00: mouth 2 (two) Medical times [facility] daily. baclofen 5 2021-0 Yes [id number] 5mg Take 1 [facility] mg tablet 8-26 9102 tablet by [facility] o f 00:00: mouth 3 (three) Medical times [facility] daily. albuterol 2021-0 Yes [id number] 2{puff} Inhale 2 [facility] 90 8-26 Puffs [facility] of mcg/actuati 00:00: every 6 [place] as on inhaler 00 (six) Medical hours as Branch needed for Wheezing or Shortness of Breath. omeprazole 2021-0 Yes [id number] 40mg Take 2 [facility] 20 mg 8-26 capsules [facility] capsule 00:00: [place] mouth [place] (two) [facility] times [facility] daily. pravastatin 2021-0 Yes [id number] 10mg Take 1 [facility] 10 mg 8-26 tablet by [facility] of tablet 00:00: mouth at 00 bedtime. Medical Branch topiramate 2021-0 Yes [id number] 100mg Take 1 [facility] 100 mg 8-26 tablet by ity of tablet 00:00: mouth 2 (two) Medical times Branch daily. baclofen 5 2021-0 Yes [id number] 5mg Take 1 [facility] mg tablet 8-26 9102 tablet by ity o f 00:00: mouth 3 (three) Medical times Branch daily. albuterol 2021-0 Yes [id number] 2{puff} Inhale 2 [facility] 90 8-26 Puffs [facility]y of mcg/actuati 00:00: every 6 [place] on inhaler 00 (six) Medical hours as Branch needed for Wheezing or Shortness of Breath. omeprazole 2022-0 Yes [id number] 40mg Take 2 [facility] 20 mg 8-26 capsules [facility] capsule 00:00: by mouth [place] 00 (two) [facility] times [facility] daily. pravastatin 2022-0 Yes [id number] 10mg Take 1 [facility] 10 mg 8-26 tablet by [facility]y of tablet 00:00: mouth at [place] 00 bedtime. Medical [facility] topiramate 2021-0 Yes [id number] 100mg Take 1 [facility] 100 mg 8-26 tablet by ity of tablet 00:00: mouth 2 00 (two) Medical times Branch daily. baclofen 5 2021-0 Yes [id number] 5mg Take 1 [facility] mg tablet 8-26 9102 tablet by ity o f 00:00: mouth 3 (three) Medical times Branch daily. albuterol 2021-0 Yes [id number] 2{puff} Inhale 2 [facility] 90 8-26 Puffs [facility]y of mcg/actuati 00:00: every 6 [place] on inhaler 00 (six) Medical hours as Branch needed for Wheezing or Shortness of Breath. omeprazole 2021-0 Yes [id number] 40mg Take 2 [facility] 20 mg 8-26 capsules [facility] capsule 00:00: by mouth 2 [place] 00 (two) [facility] times [facility] daily. pravastatin 2021-0 Yes [id number] 10mg Take 1 [facility] 10 mg 8-26 tablet by [facility]y of tablet 00:00: mouth at [place] 00 bedtime. Medical [facility] topiramate 2021-0 Yes [id number] 100mg Take 1 [facility] 100 mg 8-26 tablet by ity of tablet 00:00: mouth 2 00 (two) Medical times Branch daily. baclofen 5 2021-0 Yes [id number] 5mg Take 1 [facility] mg tablet 8-26 9102 tablet by ity o f 00:00: mouth 3 (three) Medical times [facility] daily. albuterol 2021-0 Yes [id number] 2{puff} Inhale 2 [facility] 90 8-26 Puffs [facility]y of mcg/actuati 00:00: every 6 [place] on inhaler 00 (six) Medical hours as Branch needed for Wheezing or Shortness of Breath. omeprazole 2022-0 Yes [id number] 40mg Take 2 [facility] 20 mg 8-26 capsules [facility] capsule 00:00: by mouth [place] 00 (two) [facility] times [facility] daily. pravastatin 2022-0 Yes [id number] 10mg Take 1 [facility] 10 mg 8-26 tablet by ity of tablet 00:00: mouth at [place] 00 bedtime. Medical [facility] topiramate 2021-0 Yes [id number] 100mg Take 1 [facility] 100 mg 8-26 tablet by [facility]y of tablet 00:00: mouth 2 00 (two) Medical times Branch daily. baclofen 5 2021-0 Yes [id number] 5mg Take 1 [facility] mg tablet 8-26 9102 tablet by ity o f 00:00: mouth 3 (three) Medical times Branch daily. albuterol 2021-0 Yes [id number] 2{puff} Inhale 2 [facility] 90 8-26 Puffs [facility]y of mcg/actuati 00:00: every 6 [place] on inhaler 00 (six) Medical hours as Branch needed for Wheezing or Shortness of Breath. omeprazole 2021-0 Yes [id number] 40mg Take 2 [facility] 20 mg 8-26 capsules [facility] capsule 00:00: by mouth [place] (two) [facility] times [facility] daily. pravastatin 2021-0 Yes [id number] 10mg Take 1 [facility] 10 mg 8-26 tablet by [facility]y of tablet 00:00: mouth at [place] 00 bedtime. [facility] topiramate 2021-0 Yes [id number] 100mg Take 1 [facility] 100 mg 8-26 tablet by ity of tablet 00:00: mouth 2 (two) Medical times Branch daily. baclofen 5 2021-0 Yes [id number] 5mg Take 1 [facility] mg tablet 8-26 9102 tablet by ity o f 00:00: mouth 3 (three) Medical times Branch daily. albuterol 2021-0 Yes [id number] 2{puff} Inhale 2 [facility] 90 8-26 Puffs [facility]y of mcg/actuati 00:00: every 6 [place] on inhaler 00 (six) Medical hours as [facility] needed for Wheezing or Shortness of Breath. omeprazole 2-0 Yes [id number] 40mg Take 2 [facility] 20 mg 8-26 capsules [facility] of capsule 00:00: by mouth 2 [place] 00 (two) [facility] times [facility] daily. pravastatin 2021-0 Yes [id number] 10mg Take 1 [facility] 10 mg 8-26 tablet by ity of tablet 00:00: mouth at 00 bedtime. [facility] topiramate 2021-0 Yes [id number] 100mg Take 1 [facility] 100 mg 8-26 tablet by ity of tablet 00:00: mouth 2 00 (two) Medical times Branch daily. baclofen 5 2021-0 Yes [id number] 5mg Take 1 [facility] mg tablet 8-26 9102 tablet by ity o f 00:00: mouth 3 (three) Medical times Branch daily. albuterol 2021-0 Yes [id number] 2{puff} Inhale 2 [facility] 90 8-26 Puffs [facility]y of mcg/actuati 00:00: every 6 [place] on inhaler 00 (six) Medical hours as Branch needed for Wheezing or Shortness of Breath. omeprazole 2021-0 Yes [id number] 40mg Take 2 [facility] 20 mg 8-26 capsules [facility] capsule 00:00: by mouth [place] (two) [facility] times [facility] daily. pravastatin 2021-0 Yes [id number] 10mg Take 1 [facility] 10 mg 8-26 tablet by [facility]y of tablet 00:00: mouth at 00 bedtime. [facility] topiramate 2021-0 Yes [id number] 100mg Take 1 [facility] 100 mg 8-26 tablet by ity of tablet 00:00: mouth 2 (two) Medical times Branch daily. baclofen 5 2021-0 Yes [id number] 5mg Take 1 [facility] mg tablet 8-26 9102 tablet by ity o f 00:00: mouth 3 (three) Medical times Branch daily. albuterol 2021-0 Yes [id number] 2{puff} Inhale 2 [facility] 90 8-26 Puffs [facility]y of mcg/actuati 00:00: every 6 [place] on inhaler 00 (six) Medical hours as Branch needed for Wheezing or Shortness of Breath. omeprazole 2-0 Yes [id number] 40mg Take 2 [facility] 20 mg 8-26 capsules [facility] of capsule 00:00: by mouth 2 [place] 00 (two) Medical times [facility] daily. pravastatin 2021-0 Yes [id number] 10mg Take 1 [facility] 10 mg 8-26 tablet by [facility]y of tablet 00:00: mouth at [place] 00 bedtime. [facility] topiramate 2021-0 Yes [id number] 100mg Take 1 [facility] 100 mg 8-26 tablet by ity of tablet 00:00: mouth 2 00 (two) Medical times Branch daily. baclofen 5 2021-0 Yes [id number] 5mg Take 1 [facility] mg tablet 8-26 9102 tablet by ity o f 00:00: mouth 3 (three) Medical times Branch daily. albuterol 2021-0 Yes [id number] 2{puff} Inhale 2 [facility] 90 8-26 Puffs [facility]y of mcg/actuati 00:00: every 6 [place] on inhaler 00 (six) Medical hours as Branch needed for Wheezing or Shortness of Breath. omeprazole 2021-0 Yes [id number] 40mg Take 2 [facility] 20 mg 8-26 capsules [facility] of capsule 00:00: by mouth 2 [place] (two) [facility] times [facility] daily. pravastatin 2021-0 Yes [id number] 10mg Take 1 [facility] 10 mg 8-26 tablet by [facility] of tablet 00:00: mouth at [place] 00 bedtime. [facility] topiramate 2021-0 Yes [id number] 100mg Take 1 [facility] 100 mg 8-26 tablet by [facility] of tablet 00:00: mouth 2 [place] (two) Medical times Branch daily. baclofen 5 2021-0 Yes [id number] 5mg Take 1 [facility] mg tablet 8-26 9102 tablet by ity o f 00:00: mouth 3 (three) Medical times Branch daily. albuterol 2021-0 Yes [id number] 2{puff} Inhale 2 [facility] 90 8-26 Puffs [facility]y of mcg/actuati 00:00: every 6 [place] on inhaler 00 (six) Medical hours as Branch needed for Wheezing or Shortness of Breath. omeprazole 2-0 Yes [id number] 40mg Take 2 [facility] 20 mg 8-26 capsules [facility] of capsule 00:00: by mouth 2 [place] 00 (two) Medical times [facility] daily. pravastatin 2-0 Yes [id number] 10mg Take 1 [facility] 10 mg 8-26 tablet by ity of tablet 00:00: mouth at [place] 00 bedtime. [facility] topiramate 2021-0 Yes [id number] 100mg Take 1 [facility] 100 mg 8-26 tablet by ity of tablet 00:00: mouth 2 00 (two) Medical times Branch daily. baclofen 5 2021-0 Yes [id number] 5mg Take 1 [facility] mg tablet 8-26 9102 tablet by ity o f 00:00: mouth 3 (three) Medical times Branch daily. albuterol 2021-0 Yes [id number] 2{puff} Inhale 2 [facility] 90 8-26 Puffs ity of mcg/actuati 00:00: every 6 [place] on inhaler 00 (six) Medical hours as Branch needed for Wheezing or Shortness of Breath. omeprazole 2021-0 Yes [id number] 40mg Take 2 [facility] 20 mg 8-26 capsules [facility] of capsule 00:00: by mouth 2 [place] 00 (two) Medical times [facility] daily. pravastatin 2021-0 Yes [id number] 10mg Take 1 [facility] 10 mg 8-26 tablet by [facility] of tablet 00:00: mouth at [place] 00 bedtime. [facility] topiramate 2021-0 Yes [id number] 100mg Take 1 [facility] 100 mg 8-26 tablet by ity of tablet 00:00: mouth 2 (two) Medical times Branch daily. baclofen 5 2021-0 Yes [id number] 5mg Take 1 [facility] mg tablet 8-26 9102 tablet by ity o f 00:00: mouth 3 (three) Medical times Branch daily. albuterol 2021-0 Yes [id number] 2{puff} Inhale 2 [facility] 90 8-26 Puffs [facility]y of mcg/actuati 00:00: every 6 [place] on inhaler 00 (six) Medical hours as Branch needed for Wheezing or Shortness of Breath. omeprazole 2-0 Yes [id number] 40mg Take 2 [facility] 20 mg 8-26 capsules [facility] of capsule 00:00: by mouth 2 [place] 00 (two) Medical times [facility] daily. pravastatin 2-0 Yes [id number] 10mg Take 1 [facility] 10 mg 8-26 tablet by ity of tablet 00:00: mouth at [place] 00 bedtime. Medical [facility] topiramate 2021-0 Yes [id number] 100mg Take 1 [facility] 100 mg 8-26 tablet by ity of tablet 00:00: mouth 2 (two) Medical times Branch daily. baclofen 5 2021-0 Yes [id number] 5mg Take 1 [facility] mg tablet 8-26 9102 tablet by ity o f 00:00: mouth 3 (three) Medical times Branch daily. albuterol 2021-0 Yes [id number] 2{puff} Inhale 2 [facility] 90 8-26 Puffs ity of mcg/actuati 00:00: every 6 [place] on inhaler 00 (six) Medical hours as Branch needed for Wheezing or Shortness of Breath. omeprazole 2022-0 Yes [id number] 40mg Take 2 [facility] 20 mg 8-26 capsules [facility] of capsule 00:00: by mouth 2 [place] (two) [facility] times [facility] daily. pravastatin 2021-0 Yes [id number] 10mg Take 1 [facility] 10 mg 8-26 tablet by ity of tablet 00:00: mouth at [place] 00 bedtime. Medical [facility] topiramate 2021-0 Yes [id number] 100mg Take 1 [facility] 100 mg 8-26 tablet by ity of tablet 00:00: mouth 2 (two) Medical times Branch daily. baclofen 5 2021-0 Yes [id number] 5mg Take 1 [facility] mg tablet 8-26 9102 tablet by ity o f 00:00: mouth 3 (three) Medical times Branch daily. albuterol 2021-0 Yes [id number] 2{puff} Inhale 2 [facility] 90 8-26 Puffs [facility]y of mcg/actuati 00:00: every 6 [place] on inhaler 00 (six) Medical hours as Branch needed for Wheezing or Shortness of Breath. omeprazole 2-0 Yes [id number] 40mg Take 2 [facility] 20 mg 8-26 capsules [facility] of capsule 00:00: by mouth 2 [place] (two) Medical times [facility] daily. pravastatin 2022-0 Yes [id number] 10mg Take 1 [facility] 10 mg 8-26 tablet by ity of tablet 00:00: mouth at 00 bedtime. Medical [facility] topiramate 2-0 Yes [id number] 100mg Take 1 [facility] 100 mg 8-26 tablet by ity of tablet 00:00: mouth 2 [place] 00 (two) Medical times Branch daily. baclofen 5 2021-0 Yes [id number] 5mg Take 1 [facility] mg tablet 8-26 9102 tablet by ity o f 00:00: mouth 3 (three) Medical times Branch daily. albuterol 2021-0 Yes [id number] 2{puff} Inhale 2 [facility] 90 8-26 Puffs ity of mcg/actuati 00:00: every 6 [place] on inhaler 00 (six) Medical hours as Branch needed for Wheezing or Shortness of Breath. omeprazole 2021-0 Yes [id number] 40mg Take 2 [facility] 20 mg 8-26 capsules [facility] of capsule 00:00: by mouth 2 [place] 00 (two) Medical times [facility] daily. pravastatin 2021-0 Yes [id number] 10mg Take 1 [facility] 10 mg 8-26 tablet by ity of tablet 00:00: mouth at [place] 00 bedtime. Medical [facility] topiramate 2021-0 Yes [id number] 100mg Take 1 [facility] 100 mg 8-26 tablet by ity of tablet 00:00: mouth 2 (two) Medical times Branch daily. baclofen 5 2021-0 Yes [id number] 5mg Take 1 [facility] mg tablet 8-26 9102 tablet by ity o f 00:00: mouth 3 (three) Medical times Branch daily. albuterol 2021-0 Yes [id number] 2{puff} Inhale 2 [facility] 90 8-26 Puffs ity of mcg/actuati 00:00: every 6 [place] on inhaler 00 (six) Medical hours as Branch needed for Wheezing or Shortness of Breath. omeprazole 2021-0 Yes [id number] 40mg Take 2 [facility] 20 mg 8-26 capsules [facility]y of capsule 00:00: by mouth 2 [place] (two) Medical times [facility] daily. pravastatin 2-0 Yes [id number] 10mg Take 1 [facility] 10 mg 8-26 tablet by ity of tablet 00:00: mouth at [place] 00 bedtime. Medical Branch topiramate 2-0 Yes [id number] 100mg Take 1 [facility] 100 mg 8-26 tablet by ity of tablet 00:00: mouth 2 00 (two) Medical times Branch daily. baclofen 5 2021-0 Yes [id number] 5mg Take 1 [facility] mg tablet 8-26 9102 tablet by ity o f 00:00: mouth 3 (three) Medical times Branch daily. albuterol 2021-0 Yes [id number] 2{puff} Inhale 2 [facility] 90 8-26 Puffs ity of mcg/actuati 00:00: every 6 [place] on inhaler 00 (six) Medical hours as Branch needed for Wheezing or Shortness of Breath. omeprazole 2021-0 Yes [id number] 40mg Take 2 [facility] 20 mg 8-26 capsules [facility] of capsule 00:00: by mouth 2 [place] (two) Medical times [facility] daily. pravastatin 2021-0 Yes [id number] 10mg Take 1 [facility] 10 mg 8-26 tablet by ity of tablet 00:00: mouth at 00 bedtime. Medical Branch topiramate 2021-0 Yes [id number] 100mg Take 1 [facility] 100 mg 8-26 tablet by ity of tablet 00:00: mouth (two) Medical times Branch daily. baclofen 5 2021-0 Yes [id number] 5mg Take 1 [facility] mg tablet 8-26 9102 tablet by ity o f 00:00: mouth 3 (three) Medical times Branch daily. albuterol 2021-0 Yes [id number] 2{puff} Inhale 2 [facility] 90 8-26 Puffs ity of mcg/actuati 00:00: every 6 [place] on inhaler 00 (six) Medical hours as Branch needed for Wheezing or Shortness of Breath. omeprazole 2021-0 Yes [id number] 40mg Take 2 [facility] 20 mg 8-26 capsules ity of capsule 00:00: by mouth 2 (two) Medical times Branch daily. pravastatin 2021-0 Yes [id number] 10mg Take 1 [facility] 10 mg 8-26 tablet by ity of tablet 00:00: mouth at 00 bedtime. Medical [facility] topiramate 2021-0 Yes [id number] 100mg Take 1 [facility] 100 mg 8-26 tablet by ity of tablet 00:00: mouth 2 (two) Medical times Branch daily. baclofen 5 2021-0 Yes [id number] 5mg Take 1 [facility] mg tablet 8-26 9102 tablet by ity o f 00:00: mouth 3 (three) Medical times Branch daily. albuterol Yes [id number] 2{puff} Inhale 2 [facility] 90 8-26 Puffs ity of mcg/actuati 00:00: every 6 [place] as on inhaler 00 (six) Medical hours as Branch needed for Wheezing or Shortness of Breath. omeprazole Yes [id number] 40mg Take 2 [facility] 20 mg 8-26 capsules ity of capsule 00:00: by mouth 2 [place] 00 (two) Medical times [facility] daily. pravastatin Yes [id number] 10mg Take 1 [facility] 10 mg 8-26 tablet by ity of tablet 00:00: mouth at [place] 00 bedtime. Medical Branch Omeprazole 2022- No 40mg Take 2 [place] ey 20 MG oral 8-26 07-19 capsules Seyb old Delayed 00:00: 00:00 (40 mg - Release 00 :00 total) by Externa Capsule mouth 2 l times daily Topiramate 2022- No 100mg Take 1 [place] sey 100 MG oral 8-26 04-10 tablet Seybo ld Tablet 00:00: 00:00 (100 mg - 00 :00 total) by Externa mouth 2 l times daily Ondansetron Yes 4mg Q.[id number] Take 1 [facility]inda (ZOFRAN) 4 8-21 [id number] tablet (4 [place] MG oral 00:00: 3D mg total) - TABLET 00 by mouth Externa DISPERSIBLE every 8 l hours as needed Ondansetron Yes 4mg Q.[id number] Take 1 [facility] (ZOFRAN) 4 8-21 [id number] tablet (4 [place] MG oral 00:00: 3D mg total) - TABLET 00 by mouth Externa DISPERSIBLE every 8 l hours as needed Ondansetron Yes 4mg Q.[id number] Take 1 [facility] (ZOFRAN) 4 8-21 [id number] tablet (4 [place] MG oral 00:00: 3D mg total) - TABLET 00 by mouth Externa DISPERSIBLE every 8 l hours as needed ondansetron Yes [id number] 4mg Take 1 [facility] 4 mg 8-21 tablet by ity of disintegrat 00:00: mouth [place] ing tablet 00 every 8 [facility] (eight) Branch hours as needed for Nausea and Vomiting (N/V). ondansetron 2022-0 Yes [id number] 4mg Take 1 [facility] 4 mg 8-21 tablet by ity of disintegrat 00:00: mouth [place] ing tablet 00 every 8 [facility] l (eight) Branch hours as needed for Nausea and Vomiting (N/V). ondansetron 2-0 Yes [id number] 4mg Take 1 [facility] 4 mg 8-21 tablet by ity of disintegrat 00:00: mouth [place] ing tablet 00 every 8 [facility] l (eight) Branch hours as needed for Nausea and Vomiting (N/V). ondansetron 2-0 Yes [id number] 4mg Take 1 [facility] 4 mg 8-21 tablet by ity of disintegrat 00:00: mouth [place] ing tablet 00 every 8 [facility] (eight) Branch hours as needed for Nausea and Vomiting (N/V). ondansetron 2-0 Yes [id number] 4mg Take 1 [facility] 4 mg 8-21 tablet by ity of disintegrat 00:00: mouth [place] ing tablet 00 every 8 [facility] (eight) Branch hours as needed for Nausea and Vomiting (N/V). ondansetron 2-0 Yes [id number] 4mg Take 1 [facility] 4 mg 8-21 tablet by ity of disintegrat 00:00: mouth [place] ing tablet 00 every 8 [facility] (eight) Branch hours as needed for Nausea and Vomiting (N/V). ondansetron 2-0 Yes [id number] 4mg Take 1 [facility] 4 mg 8-21 tablet by ity of disintegrat 00:00: mouth [place] ing tablet 00 every 8 [facility] (eight) Branch hours as needed for Nausea and Vomiting (N/V). ondansetron 2-0 Yes [id number] 4mg Take 1 [facility] 4 mg 8-21 tablet by ity of disintegrat 00:00: mouth [place] ing tablet 00 every 8 [facility] (eight) Branch hours as needed for Nausea and Vomiting (N/V). ondansetron 2022-0 Yes [id number] 4mg Take 1 [facility] 4 mg 8-21 tablet by ity of disintegrat 00:00: mouth [place] ing tablet 00 every 8 [facility] (eight) Branch hours as needed for Nausea and Vomiting (N/V). ondansetron 2022-0 Yes [id number] 4mg Take 1 [facility] 4 mg 8-21 tablet by ity of disintegrat 00:00: mouth [place] ing tablet 00 every 8 [facility] (eight) Branch hours as needed for Nausea and Vomiting (N/V). ondansetron 2-0 Yes [id number] 4mg Take 1 [facility] 4 mg 8-21 tablet by ity of disintegrat 00:00: mouth [place] ing tablet 00 every 8 [facility] (eight) Branch hours as needed for Nausea and Vomiting (N/V). ondansetron 2-0 Yes [id number] 4mg Take 1 [facility] 4 mg 8-21 tablet by ity of disintegrat 00:00: mouth [place] ing tablet 00 every 8 [facility] (eight) Branch hours as needed for Nausea and Vomiting (N/V). ondansetron 2-0 Yes [id number] 4mg Take 1 [facility] 4 mg 8-21 tablet by ity of disintegrat 00:00: mouth [place] ing tablet 00 every 8 [facility] (eight) Branch hours as needed for Nausea and Vomiting (N/V). ondansetron 2-0 Yes [id number] 4mg Take 1 [facility] 4 mg 8-21 tablet by ity of disintegrat 00:00: mouth [place] ing tablet 00 every 8 [facility] (eight) Branch hours as needed for Nausea and Vomiting (N/V). ondansetron 2-0 Yes [id number] 4mg Take 1 [facility] 4 mg 8-21 tablet by ity of disintegrat 00:00: mouth [place] ing tablet 00 every 8 Medica l (eight) Branch hours as needed for Nausea and Vomiting (N/V). ondansetron 2022-0 Yes [id number] 4mg Take 1 [facility] 4 mg 8-21 tablet by ity of disintegrat 00:00: mouth [place] ing tablet 00 every 8 [facility]ica [facility] (eight) Branch hours as needed for Nausea and Vomiting (N/V). ondansetron 2022-0 Yes [id number] 4mg Take 1 [facility] 4 mg 8-21 tablet by ity of disintegrat 00:00: mouth [place] ing tablet 00 every 8 Medica [facility] (eight) Branch hours as needed for Nausea and Vomiting (N/V). ondansetron 2022-0 Yes [id number] 4mg Take 1 [facility] 4 mg 8-21 tablet by ity of disintegrat 00:00: mouth [place] ing tablet 00 every 8 [facility] (eight) Branch hours as needed for Nausea and Vomiting (N/V). ondansetron 2-0 Yes [id number] 4mg Take 1 [facility] 4 mg 8-21 tablet by ity of disintegrat 00:00: mouth [place] ing tablet 00 every 8 [facility] (eight) Branch hours as needed for Nausea and Vomiting (N/V). ondansetron 2-0 Yes [id number] 4mg Take 1 [facility] 4 mg 8-21 tablet by ity of disintegrat 00:00: mouth [place] ing tablet 00 every 8 Medica [facility] (eight) Branch hours as needed for Nausea and Vomiting (N/V). ondansetron 2-0 Yes [id number] 4mg Take 1 [facility] 4 mg 8-21 tablet by ity of disintegrat 00:00: mouth [place] ing tablet 00 every 8 [facility] (eight) Branch hours as needed for Nausea and Vomiting (N/V). ondansetron 2-0 Yes [id number] 4mg Take 1 [facility] 4 mg 8-21 tablet by ity of disintegrat 00:00: mouth [place] ing tablet 00 every 8 Medica [facility] (eight) Branch hours as needed for Nausea and Vomiting (N/V). ondansetron 2-0 Yes [id number] 4mg Take 1 [facility] 4 mg 8-21 tablet by ity of disintegrat 00:00: mouth [place] ing tablet 00 every 8 Med[facility] l (eight) Branch hours as needed for Nausea and Vomiting (N/V). ondansetron 2-0 Yes [id number] 4mg Take 1 [facility] 4 mg 8-21 tablet by ity of disintegrat 00:00: mouth [place] ing tablet 00 every 8 Medica l (eight) Branch hours as needed for Nausea and Vomiting (N/V). ondansetron 2022-0 Yes [id number] 4mg Take 1 [facility] 4 mg 8-21 tablet by ity of disintegrat 00:00: mouth [place] ing tablet 00 every 8 Medica l (eight) Branch hours as needed for Nausea and Vomiting (N/V). ondansetron 2022-0 Yes [id number] 4mg Take 1 [facility] 4 mg 8-21 tablet by ity of disintegrat 00:00: mouth [place] ing tablet 00 every 8 Medica l (eight) Branch hours as needed for Nausea and Vomiting (N/V). ondansetron 2022-0 Yes [id number] 4mg Take 1 [facility] 4 mg 8-21 tablet by ity of disintegrat 00:00: mouth [place] ing tablet 00 every 8 Medica l (eight) Branch hours as needed for Nausea and Vomiting (N/V). ondansetron 2-0 Yes [id number] 4mg Take 1 [facility] 4 mg 8-21 tablet by ity of disintegrat 00:00: mouth [place] ing tablet 00 every 8 Medica l (eight) Branch hours as needed for Nausea and Vomiting (N/V). ondansetron 2-0 Yes [id number] 4mg Take 1 [facility] 4 mg 8-21 tablet by ity of disintegrat 00:00: mouth [place] ing tablet 00 every 8 Medica l (eight) Branch hours as needed for Nausea and Vomiting (N/V). ondansetron 2-0 Yes [id number] 4mg Take 1 [facility] 4 mg 8-21 tablet by ity of disintegrat 00:00: mouth [place] ing tablet 00 every 8 Medica l (eight) Branch hours as needed for Nausea and Vomiting (N/V). ondansetron 2-0 Yes [id number] 4mg Take 1 [facility] 4 mg 8-21 tablet by ity of disintegrat 00:00: mouth [place] ing tablet 00 every 8 Medica l (eight) Branch hours as needed for Nausea and Vomiting (N/V). ondansetron 2022-0 Yes [id number] 4mg Take 1 [facility] 4 mg 8-21 tablet by ity of disintegrat 00:00: mouth [place] ing tablet 00 every 8 Medica l (eight) Branch hours as needed for Nausea and Vomiting (N/V). ondansetron 2022-0 Yes [id number] 4mg Take 1 [facility] 4 mg 8-21 tablet by ity of disintegrat 00:00: mouth [place] ing tablet 00 every 8 Medica l (eight) Branch hours as needed for Nausea and Vomiting (N/V). ondansetron 2022-0 Yes [id number] 4mg Take 1 [facility] 4 mg 8-21 tablet by ity of disintegrat 00:00: mouth [place] ing tablet 00 every 8 Medica l (eight) Branch hours as needed for Nausea and Vomiting (N/V). ondansetron 2022-0 Yes [id number] 4mg Take 1 [facility] 4 mg 8-21 tablet by ity of disintegrat 00:00: mouth [place] ing tablet 00 every 8 Medica l (eight) Branch hours as needed for Nausea and Vomiting (N/V). ondansetron 2022-0 Yes [id number] 4mg Take 1 [facility] 4 mg 8-21 tablet by ity of disintegrat 00:00: mouth [place] ing tablet 00 every 8 Medica l (eight) Branch hours as needed for Nausea and Vomiting (N/V). ondansetron 2-0 Yes [id number] 4mg Take 1 [facility] 4 mg 8-21 tablet by ity of disintegrat 00:00: mouth [place] ing tablet 00 every 8 Medica l (eight) Branch hours as needed for Nausea and Vomiting (N/V). ondansetron 2-0 Yes [id number] 4mg Take 1 [facility] 4 mg 8-21 tablet by ity of disintegrat 00:00: mouth [place] ing tablet 00 every 8 Medica l (eight) Branch hours as needed for Nausea and Vomiting (N/V). ondansetron 2-0 Yes [id number] 4mg Take 1 [facility] 4 mg 8-21 tablet by ity of disintegrat 00:00: mouth [place] ing tablet 00 every 8 Medica l (eight) Branch hours as needed for Nausea and Vomiting (N/V). ondansetron 2022-0 Yes [id number] 4mg Take 1 [facility] 4 mg 8-21 tablet by ity of disintegrat 00:00: mouth [place] ing tablet 00 every 8 Medica l (eight) Branch hours as needed for Nausea and Vomiting (N/V). ondansetron 2022-0 Yes [id number] 4mg Take 1 [facility] 4 mg 8-21 tablet by ity of disintegrat 00:00: mouth [place] ing tablet 00 every 8 Medica l (eight) Branch hours as needed for Nausea and Vomiting (N/V). ondansetron 2022-0 Yes [id number] 4mg Take 1 [facility] 4 mg 8-21 tablet by ity of disintegrat 00:00: mouth [place] ing tablet 00 every 8 Medica l (eight) Branch hours as needed for Nausea and Vomiting (N/V). ondansetron 2022-0 Yes [id number] 4mg Take 1 [facility] 4 mg 8-21 tablet by ity of disintegrat 00:00: mouth [place] ing tablet 00 every 8 Medica l (eight) Branch hours as needed for Nausea and Vomiting (N/V). ondansetron 2-0 Yes [id number] 4mg Take 1 [facility] 4 mg 8-21 tablet by ity of disintegrat 00:00: mouth [place] ing tablet 00 every 8 Medica l (eight) Branch hours as needed for Nausea and Vomiting (N/V). ondansetron 2-0 Yes [id number] 4mg Take 1 [facility] 4 mg 8-21 tablet by ity of disintegrat 00:00: mouth [place] ing tablet 00 every 8 Medica l (eight) Branch hours as needed for Nausea and Vomiting (N/V). ondansetron 2-0 Yes [id number] 4mg Take 1 [facility] 4 mg 8-21 tablet by [facility] of disintegrat 00:00: mouth [place] ing tablet 00 every 8 [facility] hours as needed for Nausea and Vomiting (N/V). ondansetron 2-0 Yes [id number] 4mg Take 1 [facility] 4 mg 8-21 tablet by [facility] of disintegrat 00:00: mouth [place] ing tablet 00 every 8 [facility] ([facility] hours as needed for Nausea and Vomiting (N/V). ondansetron 2-0 Yes [id number] 4mg Take 1 [facility] 4 mg 8-21 tablet by [facility] of disintegrat 00:00: mouth [place] ing tablet 00 every 8 [facility] ([facility] hours as needed for Nausea and Vomiting (N/V). ondansetron 2022-0 Yes [id number] 4mg Take 1 [facility] 4 mg 8-21 tablet by [facility] of disintegrat 00:00: mouth [place] ing tablet 00 every 8 [facility] ([facility] hours as needed for Nausea and Vomiting (N/V). ondansetron 2022-0 Yes [id number] 4mg Take 1 [facility] 4 mg 8-21 tablet by [facility] of disintegrat 00:00: mouth [place] ing tablet 00 every 8 [facility] ([facility] hours as needed for Nausea and Vomiting (N/V). ondansetron 2022-0 Yes [id number] 4mg Take 1 [facility] 4 mg 8-21 tablet by [facility] of disintegrat 00:00: mouth [place] ing tablet 00 every 8 [facility] ([facility] hours as needed for Nausea and Vomiting (N/V). ondansetron 2-0 Yes [id number] 4mg Take 1 [facility] 4 mg 8-21 tablet by [facility]y of disintegrat 00:00: mouth [place] ing tablet 00 every 8 [facility] ([facility] hours as needed for Nausea and Vomiting (N/V). ondansetron 2-0 Yes [id number] 4mg Take 1 [facility] 4 mg 8-21 tablet by [facility]y of disintegrat 00:00: mouth [place] ing tablet 00 every 8 [facility] ([facility] hours as needed for Nausea and Vomiting (N/V). ondansetron 2-0 Yes [id number] 4mg Take 1 [facility] 4 mg 8-21 tablet by [facility]y of disintegrat 00:00: mouth [place] ing tablet 00 every 8 [facility] ([facility] hours as needed for Nausea and Vomiting (N/V). ondansetron 2-0 Yes [id number] 4mg Take 1 [facility] 4 mg 8-21 tablet by [facility] of disintegrat 00:00: mouth [place] ing tablet 00 every 8 [facility] ([facility] hours as needed for Nausea and Vomiting (N/V). ondansetron 2-0 Yes [id number] 4mg Take 1 [facility] 4 mg 8-21 tablet by [facility] of disintegrat 00:00: mouth [place] ing tablet 00 every 8 [facility] ([facility] hours as needed for Nausea and Vomiting (N/V). ondansetron 2022-0 Yes [id number] 4mg Take 1 [facility] 4 mg 8-21 tablet by [facility] of disintegrat 00:00: mouth [place] ing tablet 00 every 8 [facility] ([facility] hours as needed for Nausea and Vomiting (N/V). ondansetron 2022-0 Yes [id number] 4mg Take 1 [facility] 4 mg 8-21 tablet by [facility] of disintegrat 00:00: mouth [place] ing tablet 00 every 8 [facility] ([facility] hours as needed for Nausea and Vomiting (N/V). ondansetron 2022-0 Yes [id number] 4mg Take 1 [facility] 4 mg 8-21 tablet by [facility] of disintegrat 00:00: mouth [place] ing tablet 00 every 8 [facility] ([facility] hours as needed for Nausea and Vomiting (N/V). ondansetron 2-0 Yes [id number] 4mg Take 1 [facility] 4 mg 8-21 tablet by [facility] of disintegrat 00:00: mouth [place] ing tablet 00 every 8 [facility] ([facility] hours as needed for Nausea and Vomiting (N/V). ondansetron 2-0 Yes [id number] 4mg Take 1 [facility] 4 mg 8-21 tablet by [facility]y of disintegrat 00:00: mouth [place] ing tablet 00 every 8 [facility] ([facility] hours as needed for Nausea and Vomiting (N/V). ondansetron 2-0 Yes [id number] 4mg Take 1 [facility] 4 mg 8-21 tablet by [facility] of disintegrat 00:00: mouth [place] ing tablet 00 every 8 [facility] hours as needed for Nausea and Vomiting (N/V). ondansetron 2-0 Yes [id number] 4mg Take 1 [facility] 4 mg 8-21 tablet by [facility] of disintegrat 00:00: mouth [place] ing tablet 00 every 8 [facility] ([facility] hours as needed for Nausea and Vomiting (N/V). ondansetron 2-0 Yes [id number] 4mg Take 1 [facility] 4 mg 8-21 tablet by [facility] of disintegrat 00:00: mouth [place] ing tablet 00 every 8 [facility] ([facility] hours as needed for Nausea and Vomiting (N/V). ondansetron 2-0 Yes [id number] 4mg Take 1 [facility] 4 mg 8-21 tablet by [facility] of disintegrat 00:00: mouth [place] ing tablet 00 every 8 [facility] ([facility] hours as needed for Nausea and Vomiting (N/V). ondansetron 2022-0 Yes [id number] 4mg Take 1 [facility] 4 mg 8-21 tablet by [facility]y of disintegrat 00:00: mouth [place] ing tablet 00 every 8 [facility] ([facility] hours as needed for Nausea and Vomiting (N/V). ondansetron 2022-0 Yes [id number] 4mg Take 1 [facility] 4 mg 8-21 tablet by [facility]y of disintegrat 00:00: mouth [place] ing tablet 00 every 8 [facility] ([facility] hours as needed for Nausea and Vomiting (N/V). ondansetron 2022-0 Yes [id number] 4mg Take 1 [facility] 4 mg 8-21 tablet by [facility]y of disintegrat 00:00: mouth [place] ing tablet 00 every 8 [facility] ([facility] hours as needed for Nausea and Vomiting (N/V). ondansetron 2-0 Yes [id number] 4mg Take 1 [facility] 4 mg 8-21 tablet by [facility]y of disintegrat 00:00: mouth [place] ing tablet 00 every 8 [facility] ([facility] hours as needed for Nausea and Vomiting (N/V). ondansetron 2-0 Yes [id number] 4mg Take 1 [facility] 4 mg 8-21 tablet by [facility]y of disintegrat 00:00: mouth [place] ing tablet 00 every 8 [facility] ([facility] hours as needed for Nausea and Vomiting (N/V). ondansetron 2-0 Yes [id number] 4mg Take 1 [facility] 4 mg 8-21 tablet by [facility] of disintegrat 00:00: mouth [place] ing tablet 00 every 8 [facility] (eight) [facility] hours as needed for Nausea and Vomiting (N/V). ondansetron 2-0 Yes [id number] 4mg Take 1 [facility] 4 mg 8-21 tablet by [facility]y of disintegrat 00:00: mouth [place] ing tablet 00 every 8 [facility] (eight) [facility] hours as needed for Nausea and Vomiting (N/V). ondansetron 2022-0 Yes [id number] 4mg Take 1 [facility] 4 mg 8-21 tablet by [facility]y of disintegrat 00:00: mouth [place] ing tablet 00 every 8 [facility] (eight) Branch hours as needed for Nausea and Vomiting (N/V). ondansetron 2022-0 Yes [id number] 4mg Take 1 [facility] 4 mg 8-21 tablet by [facility]y of disintegrat 00:00: mouth [place] ing tablet 00 every 8 [facility] (eight) Branch hours as needed for Nausea and Vomiting (N/V). ondansetron 2022-0 Yes [id number] 4mg Take 1 [facility] 4 mg 8-21 tablet by ity of disintegrat 00:00: mouth [place] ing tablet 00 every 8 [facility] (eight) [facility] hours as needed for Nausea and Vomiting (N/V). ondansetron 2022-0 Yes [id number] 4mg Take 1 [facility] 4 mg 8-21 tablet by ity of disintegrat 00:00: mouth [place] ing tablet 00 every 8 [facility] (eight) Branch hours as needed for Nausea and Vomiting (N/V). ondansetron 2022-0 Yes [id number] 4mg Take 1 [facility] 4 mg 8-21 tablet by ity of disintegrat 00:00: mouth [place] ing tablet 00 every 8 [facility] (eight) Branch hours as needed for Nausea and Vomiting (N/V). ondansetron 2-0 Yes [id number] 4mg Take 1 [facility] 4 mg 8-21 tablet by ity of disintegrat 00:00: mouth [place] ing tablet 00 every 8 [facility] (eight) Branch hours as needed for Nausea and Vomiting (N/V). ondansetron 2-0 Yes [id number] 4mg Take 1 [facility] 4 mg 8-21 tablet by ity of disintegrat 00:00: mouth [place] ing tablet 00 every 8 [facility] (eight) Branch hours as needed for Nausea and Vomiting (N/V). ondansetron 2-0 Yes [id number] 4mg Take 1 [facility] 4 mg 8-21 tablet by ity of disintegrat 00:00: mouth [place] ing tablet 00 every 8 [facility] (eight) Branch hours as needed for Nausea and Vomiting (N/V). ondansetron 2022-0 Yes [id number] 4mg Take 1 [facility] 4 mg 8-21 tablet by ity of disintegrat 00:00: mouth [place] ing tablet 00 every 8 [facility] (eight) Branch hours as needed for Nausea and Vomiting (N/V). ondansetron 2022-0 Yes [id number] 4mg Take 1 [facility] 4 mg 8-21 tablet by ity of disintegrat 00:00: mouth [place] ing tablet 00 every 8 [facility] (eight) Branch hours as needed for Nausea and Vomiting (N/V). ondansetron 2022-0 Yes [id number] 4mg Take 1 [facility] 4 mg 8-21 tablet by ity of disintegrat 00:00: mouth [place] ing tablet 00 every 8 [facility] (eight) Branch hours as needed for Nausea and Vomiting (N/V). ondansetron 2-0 Yes [id number] 4mg Take 1 [facility] 4 mg 8-21 tablet by [facility]y of disintegrat 00:00: mouth [place] ing tablet 00 every 8 [facility] (eight) Branch hours as needed for Nausea and Vomiting (N/V). Ondansetron 2021-0 2023- No 4mg [id number] Take 1 [facility] (ZOFRAN) 4 8-21 -19 [id number] tablet (4 [facility] oral 00:00: 00:00 3D mg total) - TABLET 00 :00 by mouth [facility] DISPERSIBLE every 8 l hours as needed Metformin 2-0 Yes 500mg Take 1 [facility] HCl 500 MG 7-11 tablet [facility] oral Tablet 00:00: (500 mg - 00 total) by Externa mouth l daily gabapentin 2022-0 Yes 300mg Take [address] [facility] (NEURONTIN) 7-11 capsule [facility] 00:00: (300 mg [facility] capsule 00 total) by Center mouth as directed Take 4 in the morning, take 3 at noon, take 4 before bed and for pain and sleep. lisinopriL 2022-0 Yes 10mg QD Take 1 [facility] 7-11 tablet (10 [facility] ESTRIL) 10 00:00: mg total) Me dical MG tablet 00 by mouth Center in the morning. gabapentin 2022-0 Yes 300mg Take [address] [facility] (NEURONTIN) 7-11 capsule [facility] 300 MG 00:00: (300 mg Medical capsule 00 total) by Center mouth as directed Take 4 in the morning, take 3 at noon, take 4 before bed and for pain and sleep. gabapentin 2022-0 Yes 300mg Take [address] [facility] (NEURONTIN) 7-11 capsule [facility] 300 MG 00:00: (300 mg Medical capsule 00 total) by Center mouth as directed Take 4 in the morning, take 3 at noon, take 4 before bed and for pain and sleep. gabapentin 2022-0 Yes 300mg Take [address] [facility] (NEURONTIN) 7-11 capsule [facility] 300 MG 00:00: (300 mg Medical capsule 00 total) by Center mouth as directed Take 4 in the morning, take 3 at noon, take 4 before bed and for pain and sleep. lisinopril 2022-0 Yes [place] 10 MG 7-11 [...] tablet 00:00: (one) time 00 each day. gabapentin 2022-0 Yes [id number] TAKE 4 [facility] 300 mg 7-11 CAPSULES ity of capsule 00:00: BY MOUTH [place] 00 IN THE Medical MORNING Branch FOR PAIN AND 3 CAPSULES BY MOUTH AT NOON AND 3 CAPSULES BY MOUTH AT NIGHT FOR PAIN AND SLEEP. gabapentin 2-0 Yes [id number] TAKE 4 [facility] 300 mg 7-11 CAPSULES ity of capsule 00:00: BY MOUTH [place] 00 IN THE Medical MORNING Branch FOR PAIN AND 3 CAPSULES BY MOUTH AT NOON AND 3 CAPSULES BY MOUTH AT NIGHT FOR PAIN AND SLEEP. gabapentin 2022-0 Yes [id number] TAKE 4 [facility] 300 mg 7-11 CAPSULES ity of capsule 00:00: BY MOUTH [place] 00 IN THE Medical MORNING Branch FOR PAIN AND 3 CAPSULES BY MOUTH AT NOON AND 3 CAPSULES BY MOUTH AT NIGHT FOR PAIN AND SLEEP. gabapentin 2022-0 Yes [id number] TAKE 4 [facility] 300 mg 7-11 CAPSULES ity of capsule 00:00: BY MOUTH [place] 00 IN THE Medical MORNING Branch FOR PAIN AND 3 CAPSULES BY MOUTH AT NOON AND 3 CAPSULES BY MOUTH AT NIGHT FOR PAIN AND SLEEP. gabapentin 2022-0 Yes [id number] TAKE 4 [facility] 300 mg 7-11 CAPSULES ity of capsule 00:00: BY MOUTH [place] 00 IN THE Medical MORNING Branch FOR PAIN AND 3 CAPSULES BY MOUTH AT NOON AND 3 CAPSULES BY MOUTH AT NIGHT FOR PAIN AND SLEEP. gabapentin 2022-0 Yes [id number] TAKE 4 [facility] 300 mg 7-11 CAPSULES ity of capsule 00:00: BY MOUTH [place] 00 IN THE Medical MORNING Branch FOR PAIN AND 3 CAPSULES BY MOUTH AT NOON AND 3 CAPSULES BY MOUTH AT NIGHT FOR PAIN AND SLEEP. gabapentin 2022-0 Yes [id number] TAKE 4 [facility] 300 mg 7-11 CAPSULES ity of capsule 00:00: BY MOUTH [place] 00 IN THE Medical MORNING Branch FOR PAIN AND 3 CAPSULES BY MOUTH AT NOON AND 3 CAPSULES BY MOUTH AT NIGHT FOR PAIN AND SLEEP. gabapentin 202-0 Yes [id number] TAKE 4 [facility] 300 mg 7-11 CAPSULES ity of capsule 00:00: BY MOUTH [place] 00 IN THE Medical MORNING Branch FOR PAIN AND 3 CAPSULES BY MOUTH AT NOON AND 3 CAPSULES BY MOUTH AT NIGHT FOR PAIN AND SLEEP. gabapentin 202-0 Yes [id number] TAKE 4 [facility] 300 mg 7-11 CAPSULES ity of capsule 00:00: BY MOUTH [place] 00 IN THE Medical MORNING Branch FOR PAIN AND 3 CAPSULES BY MOUTH AT NOON AND 3 CAPSULES BY MOUTH AT NIGHT FOR PAIN AND SLEEP. gabapentin 2021-0 Yes [id number] TAKE 4 [facility] 300 mg 7-11 CAPSULES ity of capsule 00:00: BY MOUTH [place] 00 IN THE Medical MORNING Branch FOR PAIN AND 3 CAPSULES BY MOUTH AT NOON AND 3 CAPSULES BY MOUTH AT NIGHT FOR PAIN AND SLEEP. gabapentin 2021-0 Yes [id number] TAKE 4 [facility] 300 mg 7-11 CAPSULES ity of capsule 00:00: BY MOUTH [place] 00 IN THE Medical MORNING Branch FOR PAIN AND 3 CAPSULES BY MOUTH AT NOON AND 3 CAPSULES BY MOUTH AT NIGHT FOR PAIN AND SLEEP. gabapentin 2021-0 Yes [id number] TAKE 4 [facility] 300 mg 7-11 CAPSULES ity of capsule 00:00: BY MOUTH [place] 00 IN THE Medical MORNING Branch FOR PAIN AND 3 CAPSULES BY MOUTH AT NOON AND 3 CAPSULES BY MOUTH AT NIGHT FOR PAIN AND SLEEP. gabapentin 2021-0 Yes [id number] TAKE 4 [facility] 300 mg 7-11 CAPSULES ity of capsule 00:00: BY MOUTH [place] 00 IN THE Medical MORNING Branch FOR PAIN AND 3 CAPSULES BY MOUTH AT NOON AND 3 CAPSULES BY MOUTH AT NIGHT FOR PAIN AND SLEEP. gabapentin 202-0 Yes [id number] TAKE 4 [facility] 300 mg 7-11 CAPSULES ity of capsule 00:00: BY MOUTH [place] 00 IN THE Medical MORNING Branch FOR PAIN AND 3 CAPSULES BY MOUTH AT NOON AND 3 CAPSULES BY MOUTH AT NIGHT FOR PAIN AND SLEEP. gabapentin 202-0 Yes [id number] TAKE 4 [facility] 300 mg 7-11 CAPSULES ity of capsule 00:00: BY MOUTH [place] 00 IN THE Medical MORNING Branch FOR PAIN AND 3 CAPSULES BY MOUTH AT NOON AND 3 CAPSULES BY MOUTH AT NIGHT FOR PAIN AND SLEEP. gabapentin 2021-0 Yes [id number] TAKE 4 [facility] 300 mg 7-11 CAPSULES ity of capsule 00:00: BY MOUTH [place] 00 IN THE Medical MORNING Branch FOR PAIN AND 3 CAPSULES BY MOUTH AT NOON AND 3 CAPSULES BY MOUTH AT NIGHT FOR PAIN AND SLEEP. gabapentin 2022-0 Yes [id number] TAKE 4 [facility] 300 mg 7-11 CAPSULES ity of capsule 00:00: BY MOUTH [place] 00 IN THE Medical MORNING Branch FOR PAIN AND 3 CAPSULES BY MOUTH AT NOON AND 3 CAPSULES BY MOUTH AT NIGHT FOR PAIN AND SLEEP. gabapentin 2022-0 Yes [id number] TAKE 4 [facility] 300 mg 7-11 CAPSULES ity of capsule 00:00: BY MOUTH [place] 00 IN THE Medical MORNING Branch FOR PAIN AND 3 CAPSULES BY MOUTH AT NOON AND 3 CAPSULES BY MOUTH AT NIGHT FOR PAIN AND SLEEP. gabapentin 2022-0 Yes [id number] TAKE 4 [facility] 300 mg 7-11 CAPSULES ity of capsule 00:00: BY MOUTH [place] 00 IN THE Medical MORNING Branch FOR PAIN AND 3 CAPSULES BY MOUTH AT NOON AND 3 CAPSULES BY MOUTH AT NIGHT FOR PAIN AND SLEEP. gabapentin 2022-0 Yes [id number] TAKE 4 [facility] 300 mg 7-11 CAPSULES ity of capsule 00:00: BY MOUTH [place] 00 IN THE Medical MORNING Branch FOR PAIN AND 3 CAPSULES BY MOUTH AT NOON AND 3 CAPSULES BY MOUTH AT NIGHT FOR PAIN AND SLEEP. gabapentin 2022-0 Yes [id number] TAKE 4 [facility] 300 mg 7-11 CAPSULES ity of capsule 00:00: BY MOUTH [place] 00 IN THE Medical MORNING Branch FOR PAIN AND 3 CAPSULES BY MOUTH AT NOON AND 3 CAPSULES BY MOUTH AT NIGHT FOR PAIN AND SLEEP. gabapentin 2022-0 Yes [id number] TAKE 4 [facility] 300 mg 7-11 CAPSULES ity of capsule 00:00: BY MOUTH [place] 00 IN THE Medical MORNING Branch FOR PAIN AND 3 CAPSULES BY MOUTH AT NOON AND 3 CAPSULES BY MOUTH AT NIGHT FOR PAIN AND SLEEP. gabapentin 2022-0 Yes [id number] TAKE 4 [facility] 300 mg 7-11 CAPSULES ity of capsule 00:00: BY MOUTH [place] 00 IN THE Medical MORNING Branch FOR PAIN AND 3 CAPSULES BY MOUTH AT NOON AND 3 CAPSULES BY MOUTH AT NIGHT FOR PAIN AND SLEEP. gabapentin 2022-0 Yes [id number] TAKE 4 [facility] 300 mg 7-11 CAPSULES ity of capsule 00:00: BY MOUTH [place] 00 IN THE Medical MORNING Branch FOR PAIN AND 3 CAPSULES BY MOUTH AT NOON AND 3 CAPSULES BY MOUTH AT NIGHT FOR PAIN AND SLEEP. gabapentin 202-0 Yes [id number] TAKE 4 [facility] 300 mg 7-11 CAPSULES ity of capsule 00:00: BY MOUTH IN THE Medical MORNING Branch FOR PAIN AND 3 CAPSULES BY MOUTH AT NOON AND 3 CAPSULES BY MOUTH AT NIGHT FOR PAIN AND SLEEP. gabapentin 202-0 Yes [id number] TAKE 4 [facility] 300 mg 7-11 CAPSULES ity of capsule 00:00: BY MOUTH IN THE Medical MORNING Branch FOR PAIN AND 3 CAPSULES BY MOUTH AT NOON AND 3 CAPSULES BY MOUTH AT NIGHT FOR PAIN AND SLEEP. gabapentin 2021-0 Yes [id number] TAKE 4 [facility] 300 mg 7-11 CAPSULES ity of capsule 00:00: BY MOUTH IN THE [facility] MORNING Branch FOR PAIN AND 3 CAPSULES BY MOUTH AT NOON AND 3 CAPSULES BY MOUTH AT NIGHT FOR PAIN AND SLEEP. gabapentin 2021-0 Yes [id number] TAKE 4 [facility] 300 mg 7-11 CAPSULES ity of capsule 00:00: BY MOUTH IN THE [facility] MORNING Branch FOR PAIN AND 3 CAPSULES BY MOUTH AT NOON AND 3 CAPSULES BY MOUTH AT NIGHT FOR PAIN AND SLEEP. lisinopriL 2021-0 Yes 10mg Take 10 mg [facility] 10 mg 7-11 by mouth ity of tablet 00:00: daily. [facility] Branch metFORMIN 2021-0 Yes 500mg Take 500 [facility] 500 mg 7-11 mg by ity of tablet 00:00: mouth daily. Medical Branch gabapentin 2021-0 Yes [id number] TAKE 4 [facility] 300 mg 7-11 CAPSULES ity of capsule 00:00: BY MOUTH IN THE Medical MORNING Branch FOR PAIN AND 3 CAPSULES BY MOUTH AT NOON AND 3 CAPSULES BY MOUTH AT NIGHT FOR PAIN AND SLEEP. lisinopriL 2021-0 Yes 10mg Take 10 mg [facility] 10 mg 7-11 by mouth ity of tablet 00:00: daily. [facility] Branch metFORMIN 2-0 Yes 500mg Take 500 [facility] vers 500 mg 7-11 mg by ity of tablet 00:00: mouth daily. Medical Branch gabapentin 2021-0 Yes [id number] TAKE 4 [facility] 300 mg 7-11 CAPSULES ity of capsule 00:00: BY MOUTH IN THE [facility] MORNING Branch FOR PAIN AND 3 CAPSULES [...] 00 daily. Medical Branch gabapentin 2022-0 Yes [id number] TAKE 4 [facility] 300 mg 7-11 CAPSULES [...] 00 daily. Medical Branch gabapentin 2022-0 Yes [id number] TAKE 4 [facility] 300 mg 7-11 CAPSULES [...] 00 daily. Medical Branch gabapentin 2022-0 Yes [id number] TAKE 4 [facility] 300 mg 7-11 CAPSULES ity of capsule 00:00: BY MOUTH [place] 00 IN THE Medical MORNING Branch FOR PAIN AND 3 CAPSULES BY MOUTH AT NOON AND 3 CAPSULES BY MOUTH AT NIGHT FOR PAIN AND SLEEP. gabapentin 2022-0 Yes [id number] TAKE 4 [facility] 300 mg 7-11 CAPSULES ity of capsule 00:00: BY MOUTH [place] 00 IN THE Medical MORNING Branch FOR PAIN AND 3 CAPSULES BY MOUTH AT NOON AND 3 CAPSULES BY MOUTH AT NIGHT FOR PAIN AND SLEEP. gabapentin 2022-0 Yes [id number] TAKE 4 [facility] 300 mg 7-11 CAPSULES [...] 00 daily. Medical Branch gabapentin 2022-0 Yes [id number] TAKE 4 [facility] 300 mg 7-11 CAPSULES ity of capsule 00:00: BY MOUTH [place] 00 IN THE Medical MORNING Branch FOR PAIN AND 3 CAPSULES BY MOUTH AT NOON AND 3 CAPSULES BY MOUTH AT NIGHT FOR PAIN AND SLEEP. gabapentin 2022-0 Yes [id number] TAKE 4 [facility] 300 mg 7-11 CAPSULES [...] 00 daily. Medical Branch gabapentin 2022-0 Yes [id number] TAKE 4 [facility] 300 mg 7-11 CAPSULES [...] 00 daily. Medical Branch gabapentin 2022-0 Yes [id number] TAKE 4 [facility] 300 mg 7-11 CAPSULES [...] 00 daily. Medical Branch gabapentin 2022-0 Yes [id number] TAKE 4 [facility] 300 mg 7-11 CAPSULES [...] 00 daily. Medical Branch gabapentin 2022-0 Yes [id number] TAKE 4 [facility] 300 mg 7-11 CAPSULES [...] 00 daily. Medical Branch gabapentin 2022-0 Yes [id number] TAKE 4 [facility] 300 mg 7-11 CAPSULES [...] 00 daily. Medical Branch gabapentin 2022-0 Yes [id number] TAKE 4 [facility] 300 mg 7-11 CAPSULES [...] 00 daily. Medical Branch gabapentin 2022-0 Yes [id number] TAKE 4 [facility] 300 mg 7-11 CAPSULES [...] 00 daily. Medical Branch gabapentin 2022-0 Yes [id number] TAKE 4 [facility] 300 mg 7-11 CAPSULES [...] 00 daily. Medical Branch gabapentin 2022-0 Yes [id number] TAKE 4 [facility] 300 mg 7-11 CAPSULES [...] 00 daily. Medical Branch gabapentin 2022-0 Yes [id number] TAKE 4 [facility] 300 mg 7-11 CAPSULES [...] 00 daily. Medical Branch gabapentin 2022-0 Yes [id number] TAKE 4 [facility] 300 mg 7-11 CAPSULES [...] 00 daily. Medical Branch gabapentin 2022-0 Yes [id number] TAKE 4 [facility] 300 mg 7-11 CAPSULES [...] 00 daily. Medical Branch gabapentin 2022-0 Yes [id number] TAKE 4 [facility] 300 mg 7-11 CAPSULES [...] 00 daily. Medical Branch gabapentin 2022-0 Yes [id number] TAKE 4 [facility] 300 mg 7-11 CAPSULES [...] 00 daily. Medical Branch gabapentin 2022-0 Yes [id number] TAKE 4 [facility] 300 mg 7-11 CAPSULES [...] 00 daily. Medical Branch gabapentin 2022-0 Yes [id number] TAKE 4 [facility] 300 mg 7-11 CAPSULES [...] 00 daily. Medical Branch gabapentin 2022-0 Yes [id number] TAKE 4 [facility] 300 mg 7-11 CAPSULES [...] 00 daily. Medical Branch gabapentin 2022-0 Yes [id number] TAKE 4 [facility] 300 mg 7-11 CAPSULES [...] 00 daily. Medical Branch gabapentin 2-0 Yes [id number] TAKE 4 [facility] 300 mg 7-11 CAPSULES [...] 00 daily. Medical Branch gabapentin 2022-0 Yes [id number] TAKE 4 [facility] 300 mg 7-11 CAPSULES [...] 00 daily. Medical Branch gabapentin 2022-0 Yes [id number] TAKE 4 [facility] 300 mg 7-11 CAPSULES [...] 00 daily. Medical Branch gabapentin 2022-0 Yes [id number] TAKE 4 [facility] 300 mg 7-11 CAPSULES ity of capsule 00:00: BY MOUTH [place] 00 IN THE Medical MORNING Branch FOR PAIN AND 3 CAPSULES BY MOUTH AT NOON AND 3 CAPSULES BY MOUTH AT NIGHT FOR PAIN AND SLEEP. metFORMIN 2022-0 Yes 500mg Take 500 [facility] vers 500 mg 7-11 mg by ity of tablet 00:00: mouth [place] 00 daily. [facility] Branch gabapentin 2022-0 Yes [id number] TAKE 4 [facility] 300 mg 7-11 CAPSULES [...] 00 daily. Medical Branch gabapentin 2022-0 Yes [id number] TAKE 4 [facility] 300 mg 7-11 CAPSULES [...] 00 daily. Medical Branch gabapentin 2022-0 Yes [id number] TAKE 4 [facility] 300 mg 7-11 CAPSULES ity of capsule 00:00: BY MOUTH [place] 00 IN THE Medical MORNING Branch FOR PAIN AND 3 CAPSULES BY MOUTH AT NOON AND 3 CAPSULES BY MOUTH AT NIGHT FOR PAIN AND SLEEP. metFORMIN 2022-0 Yes 500mg Take 500 [facility] vers 500 mg 7-11 mg by ity of tablet 00:00: mouth [place] 00 daily. [facility] Branch gabapentin 2022-0 Yes [id number] TAKE 4 [facility] 300 mg 7-11 CAPSULES [...] 00 daily. Medical Branch gabapentin 2022-0 Yes [id number] TAKE 4 [facility] 300 mg 7-11 CAPSULES [...] 00 daily. Medical Branch gabapentin 2022-0 Yes [id number] TAKE 4 [facility] 300 mg 7-11 CAPSULES [...] 00 daily. Medical Branch gabapentin 2-0 Yes [id number] TAKE 4 [facility] 300 mg 7-11 CAPSULES [...] 00 daily. Medical Branch gabapentin 2-0 Yes [id number] TAKE 4 [facility] 300 mg 7-11 CAPSULES [...] 00 daily. Medical Branch gabapentin 2022-0 Yes [id number] TAKE 4 [facility] 300 mg 7-11 CAPSULES [...] 00 daily. Medical Branch gabapentin 2022-0 Yes [id number] TAKE 4 [facility] 300 mg 7-11 CAPSULES [...] 00 daily. Medical Branch gabapentin 2022-0 Yes [id number] TAKE 4 [facility] 300 mg 7-11 CAPSULES [...] 00 daily. Medical Branch gabapentin 2-0 Yes [id number] TAKE 4 [facility] 300 mg 7-11 CAPSULES [...] 00 daily. Medical Branch gabapentin 2-0 Yes [id number] TAKE 4 [facility] 300 mg 7-11 CAPSULES [...] 00 daily. Medical Branch gabapentin 2022-0 Yes [id number] TAKE 4 [facility] 300 mg 7-11 CAPSULES [...] 00 daily. Medical Branch gabapentin 2022-0 Yes [id number] TAKE 4 [facility] 300 mg 7-11 CAPSULES [...] 00 daily. Medical Branch gabapentin 2022-0 Yes [id number] TAKE 4 [facility] 300 mg 7-11 CAPSULES [...] 00 daily. Medical Branch gabapentin 2022-0 Yes [id number] TAKE 4 [facility] 300 mg 7-11 CAPSULES [...] 00 daily. Medical Branch gabapentin 2022-0 Yes [id number] TAKE 4 [facility] 300 mg 7-11 CAPSULES [...] 00 daily. Medical Branch gabapentin 2-0 Yes [id number] TAKE 4 [facility] 300 mg 7-11 CAPSULES [...] 00 daily. Medical Branch gabapentin 2022-0 Yes [id number] TAKE 4 [facility] 300 mg 7-11 CAPSULES [...] 00 daily. Medical Branch gabapentin 2022-0 Yes [id number] TAKE 4 [facility] 300 mg 7-11 CAPSULES [...] 00 daily. Medical Branch gabapentin 2022-0 Yes [id number] TAKE 4 [facility] 300 mg 7-11 CAPSULES [...] 00 daily. Medical Branch gabapentin 2021-0 Yes [id number] TAKE 4 [facility] 300 mg 7-11 CAPSULES [...] 00 daily. Medical Branch gabapentin 2021-0 Yes [id number] TAKE 4 [facility] 300 mg 7-11 CAPSULES [...] 00 daily. Medical Branch gabapentin 2-0 Yes [id number] TAKE 4 [facility] 300 mg 7-11 CAPSULES [...] 00 daily. Medical Branch gabapentin 2021-0 Yes 300mg Take [address] [facility] (NEURONTIN) 7-11 capsule [facility] 300 MG 00:00: (300 mg Medical capsule 00 total) by Center mouth as directed Take 4 in the morning, take 3 at noon, take 4 before bed and for pain and sleep. lisinopriL 2021-2022- No 10mg QD Take [address] [facility] (PRINIVIL,Z 04-02 tablet (10 [facility] ESTRIL) 10 00:00: 00:00 mg total) M edical MG tablet 00 :00 by mouth Center in the morning. lisinopriL 2021-2022- No 10mg QD Take [address] [facility] (PRINIVIL,Z 04-02 tablet (10 [facility] ESTRIL) 10 00:00: 00:00 mg total) M edical MG tablet 00 :00 by mouth Center in the morning. lisinopriL 2021-0 2022- No 10mg QD Take [address] [facility] (PRINIVIL,Z 04-02 tablet (10 [facility] ESTRIL) 10 00:00: 00:00 mg total) M edical MG tablet 00 :00 by mouth Center in the morning. lisinopriL 2021-2022- No 10mg QD Take [address] [facility] (PRINIVIL,Z 04-02 tablet (10 L ukes ESTRIL) 10 00:00: 00:00 mg total) M edical MG tablet 00 :00 by mouth Center in the morning. Gabapentin 2022- No TAKE 4 [facility] ey 300 MG oral 04-02 04-10 CAPSULES Sey bold Capsule 00:00: 00:00 BY MOUTH - 00 :00 IN THE Externa MORNING l FOR PAIN AND 3 CAPSULES BY MOUTH AT NOON AND 3 CAPSULES BY MOUTH AT NIGHT FOR PAIN AND SLEEP. metFORMIN 2022- No [place] (Glucophage 04-02 [facility] ) 500 MG 00:00: 00:00 tablet 00 :00 lisinopriL 2021-0 2021- No 10mg Take 10 mg [facility] 10 mg 04-0216 by mouth ity of tablet 00:00: 00:00 daily. [place] 00 :00 [facility] lisinopriL 2021-0 2021- No 10mg Take 10 mg [facility] 10 mg 04-0216 by mouth ity of tablet 00:00: 00:00 daily. [place] 00 :00 [facility] blood sugar 2021- Yes [id number] Check [facility] diagnostic 3-07 blood ity of strip 00:00: sugar 2 [place] 00 times a Medical day. Branch E11.9. Brand per insurance. blood sugar 2022-0 Yes [id number] Check [facility] diagnostic 3-07 blood ity of strip 00:00: sugar 2 [place] 00 times a Medical day. Branch E11.9. Brand per insurance. blood sugar 2022-0 Yes [id number] Check [facility] diagnostic 3-07 blood ity of strip 00:00: sugar 2 [place] 00 times a Medical day. Branch E11.9. Brand per insurance. blood sugar 2-0 Yes [id number] Check [facility] diagnostic 3-07 blood ity of strip 00:00: sugar 2 [place] 00 times a Medical day. Branch E11.9. Brand per insurance. blood sugar 2021-0 Yes [id number] Check [facility] diagnostic 3-07 blood ity of strip 00:00: sugar 2 [place] 00 times a Medical day. Branch E11.9. Brand per insurance. blood sugar 2021-0 Yes [id number] Check [facility] diagnostic 3-07 blood ity of strip 00:00: sugar 2 [place] 00 times a Medical day. Branch E11.9. Brand per insurance. blood sugar 2021-0 Yes [id number] Check [facility] diagnostic 3-07 blood ity of strip 00:00: sugar 2 [place] 00 times a Medical day. Branch E11.9. Brand per insurance. blood sugar 2-0 Yes [id number] Check [facility] diagnostic 3-07 blood ity of strip 00:00: sugar 2 [place] 00 times a Medical day. Branch E11.9. Brand per insurance. blood sugar 2-0 Yes [id number] Check [facility] diagnostic 3-07 blood ity of strip 00:00: sugar 2 [place] 00 times a Medical day. Branch E11.9. Brand per insurance. blood sugar 2022-0 Yes [id number] Check [facility] diagnostic 3-07 blood ity of strip 00:00: sugar 2 [place] 00 times a Medical day. Branch E11.9. Brand per insurance. blood sugar 2022-0 Yes [id number] Check [facility] diagnostic 3-07 blood ity of strip 00:00: sugar 2 [place] 00 times a Medical day. Branch E11.9. Brand per insurance. blood sugar 2022-0 Yes [id number] Check [facility] diagnostic 3-07 blood ity of strip 00:00: sugar 2 [place] 00 times a Medical day. Branch E11.9. Brand per insurance. blood sugar 2021-0 Yes [id number] Check [facility] diagnostic 3-07 blood ity of strip 00:00: sugar 2 [place] 00 times a Medical day. Branch E11.9. Brand per insurance. blood sugar 2021-0 Yes [id number] Check [facility] diagnostic 3-07 blood ity of strip 00:00: sugar 2 [place] 00 times a Medical day. Branch E11.9. Brand per insurance. blood sugar 2021-0 Yes [id number] Check [facility] diagnostic 3-07 blood ity of strip 00:00: sugar 2 [place] 00 times a Medical day. Branch E11.9. Brand per insurance. blood sugar 2021-0 Yes [id number] Check [facility] diagnostic 3-07 blood ity of strip 00:00: sugar 2 [place] 00 times a Medical day. Branch E11.9. Brand per insurance. blood sugar 2021-0 Yes [id number] Check [facility] diagnostic 3-07 blood ity of strip 00:00: sugar 2 [place] 00 times a Medical day. Branch E11.9. Brand per insurance. blood sugar 2021-0 Yes [id number] Check [facility] diagnostic 3-07 blood ity of strip 00:00: sugar 2 [place] 00 times a Medical day. Branch E11.9. Brand per insurance. blood sugar 2021-0 Yes [id number] Check [facility] diagnostic 3-07 blood ity of strip 00:00: sugar 2 [place] 00 times a Medical day. Branch E11.9. Brand per insurance. blood sugar 2021-0 Yes [id number] Check [facility] diagnostic 3-07 blood ity of strip 00:00: sugar 2 [place] 00 times a Medical day. Branch E11.9. Brand per insurance. blood sugar 2021-0 Yes [id number] Check [facility] diagnostic 3-07 blood ity of strip 00:00: sugar 2 [place] 00 times a Medical day. Branch E11.9. Brand per insurance. blood sugar 2021-0 Yes [id number] Check [facility] diagnostic 3-07 blood ity of strip 00:00: sugar 2 [place] 00 times a Medical day. Branch E11.9. Brand per insurance. blood sugar 2-0 Yes [id number] Check [facility] diagnostic 3-07 blood ity of strip 00:00: sugar 2 [place] 00 times a Medical day. Branch E11.9. Brand per insurance. blood sugar 2021-0 Yes [id number] Check [facility] diagnostic 3-07 blood ity of strip 00:00: sugar 2 [place] 00 times a Medical day. Branch E11.9. Brand per insurance. blood sugar 2021-0 Yes [id number] Check [facility] diagnostic 3-07 blood ity of strip 00:00: sugar 2 [place] 00 times a Medical day. Branch E11.9. Brand per insurance. blood sugar 2021-0 Yes [id number] Check [facility] diagnostic 3-07 blood ity of strip 00:00: sugar 2 [place] 00 times a Medical day. Branch E11.9. Brand per insurance. blood sugar 2021-0 Yes [id number] Check [facility] diagnostic 3-07 blood ity of strip 00:00: sugar 2 [place] 00 times a Medical day. Branch E11.9. Brand per insurance. blood sugar 2021-0 Yes [id number] Check [facility] diagnostic 3-07 blood ity of strip 00:00: sugar 2 [place] 00 times a Medical day. Branch E11.9. Brand per insurance. blood sugar 2021-0 Yes [id number] Check [facility] diagnostic 3-07 blood ity of strip 00:00: sugar 2 [place] 00 times a Medical day. Branch E11.9. Brand per insurance. blood sugar 2021-0 Yes [id number] Check [facility] diagnostic 3-07 blood ity of strip 00:00: sugar 2 [place] 00 times a Medical day. Branch E11.9. Brand per insurance. blood sugar 2021-0 Yes [id number] Check [facility] diagnostic 3-07 blood ity of strip 00:00: sugar 2 [place] 00 times a Medical day. Branch E11.9. Brand per insurance. blood sugar 2021-0 Yes [id number] Check [facility] diagnostic 3-07 blood ity of strip 00:00: sugar 2 [place] 00 times a Medical day. Branch E11.9. Brand per insurance. blood sugar 2021-0 Yes [id number] Check [facility] diagnostic 3-07 blood ity of strip 00:00: sugar 2 [place] 00 times a Medical day. Branch E11.9. Brand per insurance. blood sugar 2-0 Yes [id number] Check [facility] diagnostic 3-07 blood ity of strip 00:00: sugar 2 [place] 00 times a Medical day. Branch E11.9. Brand per insurance. blood sugar 2-0 Yes [id number] Check [facility] diagnostic 3-07 blood ity of strip 00:00: sugar 2 [place] 00 times a Medical day. Branch E11.9. Brand per insurance. blood sugar 2-0 Yes [id number] Check [facility] diagnostic 3-07 blood ity of strip 00:00: sugar 2 [place] 00 times a Medical day. Branch E11.9. Brand per insurance. blood sugar 2022-0 Yes [id number] Check [facility] diagnostic 3-07 blood ity of strip 00:00: sugar 2 [place] 00 times a Medical day. Branch E11.9. Brand per insurance. blood sugar 2021-0 Yes [id number] Check [facility] diagnostic 3-07 blood ity of strip 00:00: sugar 2 [place] 00 times a Medical day. Branch E11.9. Brand per insurance. blood sugar 2021-0 Yes [id number] Check [facility] diagnostic 3-07 blood ity of strip 00:00: sugar 2 [place] 00 times a Medical day. Branch E11.9. Brand per insurance. blood sugar 2021-0 Yes [id number] Check [facility] diagnostic 3-07 blood ity of strip 00:00: sugar 2 [place] 00 times a Medical day. Branch E11.9. Brand per insurance. blood sugar 2021-0 Yes [id number] Check [facility] diagnostic 3-07 blood ity of strip 00:00: sugar 2 [place] 00 times a Medical day. Branch E11.9. Brand per insurance. blood sugar 2021-0 Yes [id number] Check [facility] diagnostic 3-07 blood ity of strip 00:00: sugar 2 [place] 00 times a Medical day. Branch E11.9. Brand per insurance. blood sugar 2-0 Yes [id number] Check [facility] diagnostic 3-07 blood ity of strip 00:00: sugar 2 [place] 00 times a Medical day. Branch E11.9. Brand per insurance. blood sugar 2-0 Yes [id number] Check [facility] diagnostic 3-07 blood ity of strip 00:00: sugar 2 [place] 00 times a Medical day. Branch E11.9. Brand per insurance. blood sugar 2022-0 Yes [id number] Check [facility] diagnostic 3-07 blood ity of strip 00:00: sugar 2 [place] 00 times a Medical day. Branch E11.9. Brand per insurance. blood sugar 2022-0 Yes [id number] Check [facility] diagnostic 3-07 blood ity of strip 00:00: sugar 2 [place] 00 times a Medical day. Branch E11.9. Brand per insurance. blood sugar 2022-0 Yes [id number] Check [facility] diagnostic 3-07 blood ity of strip 00:00: sugar 2 [place] 00 times a Medical day. Branch E11.9. Brand per insurance. blood sugar 2021-0 Yes [id number] Check [facility] diagnostic 3-07 blood ity of strip 00:00: sugar 2 [place] 00 times a Medical day. Branch E11.9. Brand per insurance. blood sugar 2021-0 Yes [id number] Check [facility] diagnostic 3-07 blood ity of strip 00:00: sugar 2 [place] 00 times a Medical day. Branch E11.9. Brand per insurance. blood sugar 2021-0 Yes [id number] Check [facility] diagnostic 3-07 blood ity of strip 00:00: sugar 2 [place] 00 times a Medical day. Branch E11.9. Brand per insurance. blood sugar 2021-0 Yes [id number] Check [facility] diagnostic 3-07 blood ity of strip 00:00: sugar 2 [place] 00 times a Medical day. Branch E11.9. Brand per insurance. blood sugar 2021-0 Yes [id number] Check [facility] diagnostic 3-07 blood ity of strip 00:00: sugar 2 [place] 00 times a Medical day. Branch E11.9. Brand per insurance. blood sugar 2021-0 Yes [id number] Check [facility] diagnostic 3-07 blood ity of strip 00:00: sugar 2 [place] 00 times a Medical day. Branch E11.9. Brand per insurance. blood sugar 2021-0 Yes [id number] Check [facility] diagnostic 3-07 blood ity of strip 00:00: sugar 2 [place] 00 times a Medical day. Branch E11.9. Brand per insurance. blood sugar 2021-0 Yes [id number] Check [facility] diagnostic 3-07 blood ity of strip 00:00: sugar 2 [place] 00 times a Medical day. Branch E11.9. Brand per insurance. blood sugar 2021-0 Yes [id number] Check [facility] diagnostic 3-07 blood ity of strip 00:00: sugar 2 [place] 00 times a Medical day. Branch E11.9. Brand per insurance. blood sugar 2-0 Yes [id number] Check [facility] diagnostic 3-07 blood ity of strip 00:00: sugar 2 [place] 00 times a Medical day. Branch E11.9. Brand per insurance. blood sugar 2021-0 Yes [id number] Check [facility] diagnostic 3-07 blood ity of strip 00:00: sugar 2 [place] 00 times a Medical day. Branch E11.9. Brand per insurance. blood sugar 2021-0 Yes [id number] Check [facility] diagnostic 3-07 blood ity of strip 00:00: sugar 2 [place] 00 times a Medical day. Branch E11.9. Brand per insurance. blood sugar 202-0 Yes [id number] Check [facility] diagnostic 3-07 blood ity of strip 00:00: sugar 2 [place] 00 times a Medical day. Branch E11.9. Brand per insurance. blood sugar 2021-0 Yes [id number] Check [facility] diagnostic 3-07 blood ity of strip 00:00: sugar 2 [place] 00 times a Medical day. Branch E11.9. Brand per insurance. blood sugar 2021-0 Yes [id number] Check [facility] diagnostic 3-07 blood ity of strip 00:00: sugar 2 [place] 00 times a Medical day. Branch E11.9. Brand per insurance. blood sugar 2021-0 Yes [id number] Check [facility] diagnostic 3-07 blood ity of strip 00:00: sugar 2 [place] 00 times a Medical day. Branch E11.9. Brand per insurance. blood sugar 2021-0 Yes [id number] Check [facility] diagnostic 3-07 blood ity of strip 00:00: sugar 2 [place] 00 times a Medical day. Branch E11.9. Brand per insurance. blood sugar 2021-0 Yes [id number] Check [facility] diagnostic 3-07 blood ity of strip 00:00: sugar 2 [place] 00 times a Medical day. Branch E11.9. Brand per insurance. blood sugar 2021-0 Yes [id number] Check [facility] diagnostic 3-07 blood ity of strip 00:00: sugar 2 [place] 00 times a Medical day. Branch E11.9. Brand per insurance. blood sugar 2021-0 Yes [id number] Check [facility] diagnostic 3-07 blood ity of strip 00:00: sugar 2 [place] 00 times a Medical day. Branch E11.9. Brand per insurance. blood sugar 2022-0 Yes [id number] Check [facility] diagnostic 3-07 blood ity of strip 00:00: sugar 2 [place] 00 times a Medical day. Branch E11.9. Brand per insurance. blood sugar 2021-0 Yes [id number] Check [facility] diagnostic 3-07 blood ity of strip 00:00: sugar 2 [place] 00 times a Medical day. Branch E11.9. Brand per insurance. blood sugar 2021-0 Yes [id number] Check [facility] diagnostic 3-07 blood ity of strip 00:00: sugar 2 [place] 00 times a Medical day. Branch E11.9. Brand per insurance. blood sugar 2021-0 Yes [id number] Check [facility] diagnostic 3-07 blood ity of strip 00:00: sugar 2 [place] times a Medical day. Branch E11.9. Brand per insurance. blood sugar 2021-0 Yes [id number] Check [facility] diagnostic 3-07 blood ity of strip 00:00: sugar 2 [place] 00 times a Medical day. Branch E11.9. Brand per insurance. blood sugar 2021-0 3- No [id number] Check [facility] diagnostic 3-07 04-06 blood ity of strip 00:00: 00:00 sugar 2 [place] 00 :00 times a Medical day. Branch E11.9. Brand per insurance. Blood-Gluco 2021-0 Yes [id number] Check [facility] se Meter 3-04 sugars 2 ity of Kit 00:00: times a [place] 00 day. Dx. Medical Code E11.9 Branch Brand per Insurance Lancets 0 Yes [id number] Check Univ ers Misc 3-04 blood ity of 00:00: sugar 2 times a Medical day. Branch E11.9. Brand per insurance. Blood-Gluco 2021-0 Yes [id number] Check [facility] se Meter 3-04 sugars 2 ity of Kit 00:00: times a 00 day. Dx. Medical Code E11.9 Branch Brand per Insurance Lancets 2021-0 Yes [id number] Check Univ ers Misc 3-04 blood ity of 00:00: sugar 2 [place] 00 times a Medical day. Branch E11.9. Brand per insurance. Blood-Gluco 2021-0 Yes [id number] Check [facility] se Meter 3-04 sugars 2 ity of Kit 00:00: times a [place] 00 day. Dx. Medical Code E11.9 Branch Brand per Insurance Lancets 2021-0 Yes [id number] Check [facility] ers Misc 3-04 blood ity of 00:00: sugar 2 [place] 00 times a Medical day. Branch E11.9. Brand per insurance. Blood-Gluco 202-0 Yes [id number] Check [facility] se Meter 3-04 sugars 2 ity of Kit 00:00: times a [place] 00 day. Dx. Medical Code E11.9 Branch Brand per Insurance Lancets 0 Yes [id number] Check [facility] ers Misc 3-04 blood ity of 00:00: sugar 2 [place] 00 times a Medical day. Branch E11.9. Brand per insurance. Blood-Gluco 2021-0 Yes [id number] Check [facility] se Meter 3-04 sugars 2 ity of Kit 00:00: times a [place] 00 day. Dx. Medical Code E11.9 Branch Brand per Insurance Lancets 2021-0 Yes [id number] Check [facility] ers Misc 3-04 blood ity of 00:00: sugar 2 00 times a Medical day. Branch E11.9. Brand per insurance. Blood-Gluco 2021-0 Yes [id number] Check [facility] se Meter 3-04 sugars 2 ity of Kit 00:00: times a [place] 00 day. Dx. Medical Code E11.9 Branch Brand per Insurance Lancets 0 Yes [id number] Check [facility] ers Misc 3-04 blood ity of 00:00: sugar 2 [place] 00 times a Medical day. Branch E11.9. Brand per insurance. Blood-Gluco 2021-0 Yes [id number] Check [facility] se Meter 3-04 sugars 2 ity of Kit 00:00: times a [place] 00 day. Dx. Medical Code E11.9 Branch Brand per Insurance Lancets 0 Yes [id number] Check [facility] ers Misc 3-04 blood ity of 00:00: sugar 2 00 times a Medical day. Branch E11.9. Brand per insurance. Blood-Gluco 2021-0 Yes [id number] Check [facility] se Meter 3-04 sugars 2 ity of Kit 00:00: times a [place] 00 day. Dx. Medical Code E11.9 Branch Brand per Insurance Lancets 2021-0 Yes [id number] Check [facility] ers Misc 3-04 blood ity of 00:00: sugar 2 00 times a Medical day. Branch E11.9. Brand per insurance. Blood-Gluco 2021-0 Yes [id number] Check [facility] se Meter 3-04 sugars 2 ity of Kit 00:00: times a [place] 00 day. Dx. Medical Code E11.9 Branch Brand per Insurance Lancets 2021-0 Yes [id number] Check [facility] ers Misc 3-04 blood ity of 00:00: sugar 2 [place] 00 times a Medical day. Branch E11.9. Brand per insurance. Blood-Gluco 2021-0 Yes [id number] Check [facility] se Meter 3-04 sugars 2 ity of Kit 00:00: times a [place] 00 day. Dx. Medical Code E11.9 Branch Brand per Insurance Lancets 2021-0 Yes [id number] Check [facility] ers Misc 3-04 blood ity of 00:00: sugar 2 [place] 00 times a Medical day. Branch E11.9. Brand per insurance. Blood-Gluco 2021-0 Yes [id number] Check [facility] se Meter 3-04 sugars 2 ity of Kit 00:00: times a [place] 00 day. Dx. Medical Code E11.9 Branch Brand per Insurance Lancets 2021-0 Yes [id number] Check [facility] ers Misc 3-04 blood ity of 00:00: sugar 2 [place] 00 times a Medical day. Branch E11.9. Brand per insurance. Blood-Gluco 2021-0 Yes [id number] Check [facility] se Meter 3-04 sugars 2 ity of Kit 00:00: times a [place] 00 day. Dx. Medical Code E11.9 Branch Brand per Insurance Lancets 0 Yes [id number] Check [facility] ers Misc 3-04 blood ity of 00:00: sugar 2 [place] 00 times a Medical day. Branch E11.9. Brand per insurance. Blood-Gluco 2021-0 Yes [id number] Check [facility] se Meter 3-04 sugars 2 ity of Kit 00:00: times a [place] 00 day. Dx. Medical Code E11.9 Branch Brand per Insurance Lancets 2021-0 Yes [id number] Check [facility] ers Misc 3-04 blood ity of 00:00: sugar 2 [place] 00 times a Medical day. Branch E11.9. Brand per insurance. Blood-Gluco 2021-0 Yes [id number] Check [facility] se Meter 3-04 sugars 2 ity of Kit 00:00: times a [place] 00 day. Dx. Medical Code E11.9 Branch Brand per Insurance Lancets 2021-0 Yes [id number] Check [facility] ers Misc 3-04 blood ity of 00:00: sugar 2 [place] 00 times a Medical day. Branch E11.9. Brand per insurance. Blood-Gluco 2021-0 Yes [id number] Check [facility] se Meter 3-04 sugars 2 ity of Kit 00:00: times a [place] 00 day. Dx. Medical Code E11.9 Branch Brand per Insurance Lancets 0 Yes [id number] Check [facility] ers Misc 3-04 blood ity of 00:00: sugar 2 [place] 00 times a Medical day. Branch E11.9. Brand per insurance. Blood-Gluco 2021-0 Yes [id number] Check [facility] se Meter 3-04 sugars 2 ity of Kit 00:00: times a [place] 00 day. Dx. Medical Code E11.9 Branch Brand per Insurance Lancets 0 Yes [id number] Check [facility] ers Misc 3-04 blood ity of 00:00: sugar 2 [place] 00 times a Medical day. Branch E11.9. Brand per insurance. Blood-Gluco 2021-0 Yes [id number] Check [facility] se Meter 3-04 sugars 2 ity of Kit 00:00: times a [place] 00 day. Dx. Medical Code E11.9 Branch Brand per Insurance Lancets 0 Yes [id number] Check [facility] ers Misc 3-04 blood ity of 00:00: sugar 2 [place] 00 times a Medical day. Branch E11.9. Brand per insurance. Blood-Gluco 2021-0 Yes [id number] Check [facility] se Meter 3-04 sugars 2 ity of Kit 00:00: times a [place] 00 day. Dx. Medical Code E11.9 Branch Brand per Insurance Lancets 0 Yes [id number] Check [facility] ers Misc 3-04 blood ity of 00:00: sugar 2 [place] 00 times a Medical day. Branch E11.9. Brand per insurance. Blood-Gluco 2021-0 Yes [id number] Check [facility] se Meter 3-04 sugars 2 ity of Kit 00:00: times a [place] 00 day. Dx. Medical Code E11.9 Branch Brand per Insurance Lancets 0 Yes [id number] Check [facility] ers Misc 3-04 blood ity of 00:00: sugar 2 [place] 00 times a Medical day. Branch E11.9. Brand per insurance. Blood-Gluco 2021-0 Yes [id number] Check [facility] se Meter 3-04 sugars 2 ity of Kit 00:00: times a [place] 00 day. Dx. Medical Code E11.9 Branch Brand per Insurance Lancets 2021-0 Yes [id number] Check [facility] ers Misc 3-04 blood ity of 00:00: sugar 2 [place] 00 times a Medical day. Branch E11.9. Brand per insurance. Blood-Gluco 2021-0 Yes [id number] Check [facility] se Meter 3-04 sugars 2 ity of Kit 00:00: times a [place] 00 day. Dx. Medical Code E11.9 Branch Brand per Insurance Lancets 2021-0 Yes [id number] Check [facility] ers Misc 3-04 blood ity of 00:00: sugar 2 [place] 00 times a Medical day. Branch E11.9. Brand per insurance. Blood-Gluco 2021-0 Yes [id number] Check [facility] se Meter 3-04 sugars 2 ity of Kit 00:00: times a [place] 00 day. Dx. Medical Code E11.9 Branch Brand per Insurance Lancets 0 Yes [id number] Check [facility] ers Misc 3-04 blood ity of 00:00: sugar 2 [place] 00 times a Medical day. Branch E11.9. Brand per insurance. Blood-Gluco 2021-0 Yes [id number] Check [facility] se Meter 3-04 sugars 2 ity of Kit 00:00: times a [place] 00 day. Dx. Medical Code E11.9 Branch Brand per Insurance Lancets 0 Yes [id number] Check [facility] ers Misc 3-04 blood ity of 00:00: sugar 2 [place] 00 times a Medical day. Branch E11.9. Brand per insurance. Blood-Gluco 2021-0 Yes [id number] Check [facility] se Meter 3-04 sugars 2 ity of Kit 00:00: times a [place] 00 day. Dx. Medical Code E11.9 Branch Brand per Insurance Lancets 2021-0 Yes [id number] Check [facility] ers Misc 3-04 blood ity of 00:00: sugar 2 [place] 00 times a Medical day. Branch E11.9. Brand per insurance. Blood-Gluco 2021-0 Yes [id number] Check [facility] se Meter 3-04 sugars 2 ity of Kit 00:00: times a [place] 00 day. Dx. Medical Code E11.9 Branch Brand per Insurance Lancets 0 Yes [id number] Check [facility] ers Misc 3-04 blood ity of 00:00: sugar 2 [place] 00 times a Medical day. Branch E11.9. Brand per insurance. Blood-Gluco 2021-0 Yes [id number] Check [facility] se Meter 3-04 sugars 2 ity of Kit 00:00: times a [place] 00 day. Dx. Medical Code E11.9 Branch Brand per Insurance Lancets 2021-0 Yes [id number] Check [facility] ers Misc 3-04 blood ity of 00:00: sugar 2 [place] 00 times a Medical day. Branch E11.9. Brand per insurance. Blood-Gluco 2021-0 Yes [id number] Check [facility] se Meter 3-04 sugars 2 ity of Kit 00:00: times a [place] 00 day. Dx. Medical Code E11.9 Branch Brand per Insurance Lancets 0 Yes [id number] Check [facility] ers Misc 3-04 blood ity of 00:00: sugar 2 [place] 00 times a Medical day. Branch E11.9. Brand per insurance. Blood-Gluco 2021-0 Yes [id number] Check [facility] se Meter 3-04 sugars 2 ity of Kit 00:00: times a [place] 00 day. Dx. Medical Code E11.9 Branch Brand per Insurance Lancets 0 Yes [id number] Check [facility] ers Misc 3-04 blood ity of 00:00: sugar 2 [place] 00 times a Medical day. Branch E11.9. Brand per insurance. Blood-Gluco 2021-0 Yes [id number] Check [facility] se Meter 3-04 sugars 2 ity of Kit 00:00: times a [place] 00 day. Dx. Medical Code E11.9 Branch Brand per Insurance Lancets 0 Yes [id number] Check [facility] ers Misc 3-04 blood ity of 00:00: sugar 2 [place] 00 times a Medical day. Branch E11.9. Brand per insurance. Blood-Gluco 2021-0 Yes [id number] Check [facility] se Meter 3-04 sugars 2 ity of Kit 00:00: times a [place] 00 day. Dx. Medical Code E11.9 Branch Brand per Insurance Lancets 2021-0 Yes [id number] Check [facility] ers Misc 3-04 blood ity of 00:00: sugar 2 [place] 00 times a Medical day. Branch E11.9. Brand per insurance. Blood-Gluco 2021-0 Yes [id number] Check [facility] se Meter 3-04 sugars 2 ity of Kit 00:00: times a [place] 00 day. Dx. Medical Code E11.9 Branch Brand per Insurance Lancets 0 Yes [id number] Check [facility] ers Misc 3-04 blood ity of 00:00: sugar 2 [place] 00 times a Medical day. Branch E11.9. Brand per insurance. Blood-Gluco 2021-0 Yes [id number] Check [facility] se Meter 3-04 sugars 2 ity of Kit 00:00: times a [place] 00 day. Dx. Medical Code E11.9 Branch Brand per Insurance Lancets 0 Yes [id number] Check [facility] ers Misc 3-04 blood ity of 00:00: sugar 2 [place] 00 times a Medical day. Branch E11.9. Brand per insurance. Blood-Gluco 2021-0 Yes [id number] Check [facility] se Meter 3-04 sugars 2 ity of Kit 00:00: times a [place] 00 day. Dx. Medical Code E11.9 Branch Brand per Insurance Lancets 0 Yes [id number] Check [facility] ers Misc 3-04 blood ity of 00:00: sugar 2 [place] 00 times a Medical day. Branch E11.9. Brand per insurance. Blood-Gluco 2021-0 Yes [id number] Check [facility] se Meter 3-04 sugars 2 ity of Kit 00:00: times a [place] 00 day. Dx. Medical Code E11.9 Branch Brand per Insurance Lancets 0 Yes [id number] Check [facility] ers Misc 3-04 blood ity of 00:00: sugar 2 00 times a Medical day. Branch E11.9. Brand per insurance. Blood-Gluco 2021-0 Yes [id number] Check [facility] se Meter 3-04 sugars 2 ity of Kit 00:00: times a [place] 00 day. Dx. Medical Code E11.9 Branch Brand per Insurance Lancets 0 Yes [id number] Check [facility] ers Misc 3-04 blood ity of 00:00: sugar 2 [place] 00 times a Medical day. Branch E11.9. Brand per insurance. Blood-Gluco 2021-0 Yes [id number] Check [facility] se Meter 3-04 sugars 2 ity of Kit 00:00: times a [place] 00 day. Dx. Medical Code E11.9 Branch Brand per Insurance Lancets 0 Yes [id number] Check [facility] ers Misc 3-04 blood ity of 00:00: sugar 2 [place] 00 times a Medical day. Branch E11.9. Brand per insurance. Blood-Gluco 2021-0 Yes [id number] Check [facility] se Meter 3-04 sugars 2 ity of Kit 00:00: times a [place] 00 day. Dx. Medical Code E11.9 Branch Brand per Insurance Lancets 2021-0 Yes [id number] Check [facility] ers Misc 3-04 blood ity of 00:00: sugar 2 [place] 00 times a Medical day. Branch E11.9. Brand per insurance. Blood-Gluco 2021-0 Yes [id number] Check [facility] se Meter 3-04 sugars 2 ity of Kit 00:00: times a [place] 00 day. Dx. Medical Code E11.9 [facility] per Insurance Lancets 2021-0 Yes [id number] Check [facility] Misc 3-04 blood ity of 00:00: sugar 2 [place] 00 times a Medical day. Branch E11.9. Brand per insurance. Blood-Gluco 2021-0 Yes [id number] Check [facility] se Meter 3-04 sugars 2 ity of Kit 00:00: times a [place] 00 day. Dx. Medical Code E11.9 [facility] per Insurance Lancets 0 Yes [id number] Check [facility] Misc 3-04 blood ity of 00:00: sugar 2 times a Medical day. Branch E11.9. Brand per insurance. Blood-Gluco 2021-0 Yes [id number] Check [facility] se Meter 3-04 sugars 2 ity of Kit 00:00: times a [place] 00 day. Dx. Medical Code E11.9 [facility] per Insurance Lancets 2021-0 Yes [id number] Check [facility] Misc 3-04 blood ity of 00:00: sugar 2 [place] 00 times a Medical day. Branch E11.9. Brand per insurance. Blood-Gluco 2021-0 Yes [id number] Check [facility] se Meter 3-04 sugars 2 ity of Kit 00:00: times a [place] 00 day. Dx. Medical Code E11.9 [facility] [employer] per [employer] Lancets 2021-0 Yes [id number] Check [facility] Misc 3-04 blood ity of 00:00: sugar 2 [place] 00 times a Medical day. Branch E11.9. Brand per insurance. Blood-Gluco 2022-0 Yes [id number] Check [facility] se Meter 3-04 sugars 2 ity of Kit 00:00: times a [place] 00 day. Dx. Medical Code E11.9 [facility] [employer] per Insurance Lancets 0 Yes [id number] Check [facility] Misc 3-04 blood ity of 00:00: sugar 2 00 times a Medical day. Branch E11.9. Brand per insurance. Blood-Gluco 2021-0 Yes [id number] Check [facility] se Meter 3-04 sugars 2 ity of Kit 00:00: times a [place] 00 day. Dx. Medical Code E11.9 [facility] per Insurance Lancets 0 Yes [id number] Check [facility] Misc 3-04 blood ity of 00:00: sugar 2 00 times a Medical day. Branch E11.9. Brand per insurance. Blood-Gluco 2021-0 Yes [id number] Check [facility] se Meter 3-04 sugars 2 ity of Kit 00:00: times a [place] 00 day. Dx. Medical Code E11.9 [facility] per Insurance Lancets 0 Yes [id number] Check [facility] Misc 3-04 blood ity of 00:00: sugar 2 00 times a Medical day. Branch E11.9. Brand per insurance. Blood-Gluco 2021-0 Yes [id number] Check [facility] se Meter 3-04 sugars 2 ity of Kit 00:00: times a [place] 00 day. Dx. Medical Code E11.9 [facility] per [employer] Lancets 2021-0 Yes [id number] Check [facility] Misc 3-04 blood ity of 00:00: sugar 2 00 times a Medical day. Branch E11.9. Brand per insurance. Blood-Gluco 2021-0 Yes [id number] Check [facility] se Meter 3-04 sugars 2 ity of Kit 00:00: times a [place] 00 day. Dx. Medical Code E11.9 [facility] per Insurance Lancets 2021-0 Yes [id number] Check [facility] Misc 3-04 blood ity of 00:00: sugar 2 times a Medical day. Branch E11.9. Brand per insurance. Blood-Gluco 2021-0 Yes [id number] Check [facility] se Meter 3-04 sugars 2 ity of Kit 00:00: times a [place] 00 day. Dx. Medical Code E11.9 [facility] per [employer] Lancets 2021-0 Yes [id number] Check [facility] Misc 3-04 blood ity of 00:00: sugar 2 [place] 00 times a Medical day. Branch E11.9. Brand per insurance. Blood-Gluco 2021-0 Yes [id number] Check [facility] se Meter 3-04 sugars 2 ity of Kit 00:00: times a [place] 00 day. Dx. Medical Code E11.9 [facility] per Insurance Lancets 0 Yes [id number] Check [facility] Misc 3-04 blood ity of 00:00: sugar 2 [place] 00 times a Medical day. Branch E11.9. Brand per insurance. Blood-Gluco 2021-0 Yes [id number] Check [facility] se Meter 3-04 sugars 2 ity of Kit 00:00: times a [place] 00 day. Dx. Medical Code E11.9 [facility] per Insurance Lancets 0 Yes [id number] Check [facility] Misc 3-04 blood ity of 00:00: sugar 2 [place] 00 times a Medical day. Branch E11.9. Brand per insurance. Blood-Gluco 2021-0 Yes [id number] Check [facility] se Meter 3-04 sugars 2 ity of Kit 00:00: times a [place] 00 day. Dx. Medical Code E11.9 [facility] per Insurance Lancets 0 Yes [id number] Check [facility] Misc 3-04 blood ity of 00:00: sugar 2 [place] 00 times a Medical day. Branch E11.9. Brand per insurance. Blood-Gluco 2021-0 Yes [id number] Check [facility] se Meter 3-04 sugars 2 ity of Kit 00:00: times a [place] 00 day. Dx. Medical Code E11.9 [facility] per Insurance Lancets 0 Yes [id number] Check [facility] Misc 3-04 blood ity of 00:00: sugar 2 [place] 00 times a Medical day. Branch E11.9. Brand per insurance. Blood-Gluco 2021-0 Yes [id number] Check [facility] se Meter 3-04 sugars 2 ity of Kit 00:00: times a [place] 00 day. Dx. Medical Code E11.9 [facility] per [employer] Lancets 2021-0 Yes [id number] Check [facility] Misc 3-04 blood ity of 00:00: sugar 2 [place] 00 times a Medical day. Branch E11.9. Brand per insurance. Blood-Gluco 2021-0 Yes [id number] Check [facility] se Meter 3-04 sugars 2 ity of Kit 00:00: times a [place] 00 day. Dx. Medical Code E11.9 [facility] per Insurance Lancets 0 Yes [id number] Check [facility] Misc 3-04 blood ity of 00:00: sugar 2 [place] 00 times a Medical day. Branch E11.9. Brand per insurance. Blood-Gluco 2021-0 Yes [id number] Check [facility] se Meter 3-04 sugars 2 ity of Kit 00:00: times a [place] 00 day. Dx. Medical Code E11.9 [facility] per [employer] Lancets Yes [id number] Check [facility] Misc 3-04 blood ity of 00:00: sugar 2 [place] 00 times a Medical day. Branch E11.9. Brand per insurance. Blood-Gluco 2021-0 Yes [id number] Check [facility] se Meter 3-04 sugars 2 ity of Kit 00:00: times a [place] 00 day. Dx. Medical Code E11.9 [facility] per Insurance Lanc[employer] Yes [id number] Check [facility] Misc 3-04 blood ity of 00:00: sugar 2 [place] 00 times a Medical day. Branch E11.9. Brand per insurance. Blood-Gluco 2021-0 Yes [id number] Check [facility] se Meter 3-04 sugars 2 ity of Kit 00:00: times a [place] 00 day. Dx. Medical Code E11.9 [facility] per [employer] Lanc[employer] Yes [id number] Check [facility] Misc 3-04 blood ity of 00:00: sugar 2 00 times a Medical day. Branch E11.9. Brand per insurance. Blood-Gluco 2021-0 Yes [id number] Check [facility] se Meter 3-04 sugars 2 ity of Kit 00:00: times a [place] 00 day. Dx. Medical Code E11.9 [facility] per [employer] Lancets Yes [id number] Check [facility] Misc 3-04 blood ity of 00:00: sugar 2 [place] 00 times a Medical day. Branch E11.9. Brand per insurance. Blood-Gluco 2021-0 Yes [id number] Check [facility] se Meter 3-04 sugars 2 ity of Kit 00:00: times a [place] 00 day. Dx. Medical Code E11.9 [facility] per [employer] Lancets 2022-0 Yes [id number] Check [facility] Misc 3-04 blood ity of 00:00: sugar 2 [place] 00 times a Medical day. Branch E11.9. Brand per insurance. Blood-Gluco 2-0 Yes [id number] Check [facility] se Meter 3-04 sugars 2 ity of Kit 00:00: times a [place] 00 day. Dx. Medical Code E11.9 [facility] per [employer] 2021-0 Yes [id number] Check [facility] Misc 3-04 blood ity of 00:00: sugar 2 [place] 00 times a Medical day. Branch E11.9. Brand per insurance. Blood-Gluco 2021-0 Yes [id number] Check [facility] se Meter 3-04 sugars 2 ity of Kit 00:00: times a [place] 00 day. Dx. Medical Code E11.9 [facility] per [employer] Lanc[employer] 2021-0 Yes [id number] Check [facility] Misc 3-04 blood ity of 00:00: sugar 2 [place] 00 times a Medical day. Branch E11.9. Brand per insurance. Blood-Gluco 2021-0 Yes [id number] Check [facility] se Meter 3-04 sugars 2 ity of Kit 00:00: times a [place] 00 day. Dx. Medical Code E11.9 [facility] per [employer] Lancets 0 Yes [id number] Check [facility] Misc 3-04 blood ity of 00:00: sugar 2 [place] 00 times a Medical day. Branch E11.9. Brand per insurance. Blood-Gluco 2021-0 Yes [id number] Check [facility] se Meter 3-04 sugars 2 ity of Kit 00:00: times a [place] 00 day. Dx. Medical Code E11.9 [facility] per [employer] Lanc[employer] 2021-0 Yes [id number] Check [facility] Misc 3-04 blood ity of 00:00: sugar 2 [place] 00 times a Medical day. Branch E11.9. Brand per insurance. Blood-Gluco 2-0 Yes [id number] Check [facility] se Meter 3-04 sugars 2 ity of Kit 00:00: times a [place] 00 day. Dx. Medical Code E11.9 [facility] per [employer] Lanc[employer] 2021-0 Yes [id number] Check [facility] Misc 3-04 blood ity of 00:00: sugar 2 [place] 00 times a Medical day. Branch E11.9. Brand per insurance. Blood-Gluco 2022-0 Yes [id number] Check [facility] se Meter 3-04 sugars 2 ity of Kit 00:00: times a [place] 00 day. Dx. Medical Code E11.9 [facility] [employer] per [employer] 2021-0 Yes [id number] Check [facility] Misc 3-04 blood ity of 00:00: sugar 2 [place] 00 times a Medical day. Branch E11.9. Brand per insurance. Blood-Gluco 2021-0 Yes [id number] Check [facility] se Meter 3-04 sugars 2 ity of Kit 00:00: times a [place] 00 day. Dx. Medical Code E11.9 [facility] per [employer] Lancets 0 Yes [id number] Check [facility] Misc 3-04 blood ity of 00:00: sugar 2 [place] 00 times a Medical day. Branch E11.9. Brand per insurance. Blood-Gluco 2021-0 Yes [id number] Check [facility] se Meter 3-04 sugars 2 ity of Kit 00:00: times a [place] 00 day. Dx. Medical Code E11.9 [facility] per [employer] Lancets 0 Yes [id number] Check [facility] Misc 3-04 blood ity of 00:00: sugar 2 [place] 00 times a Medical day. Branch E11.9. Brand per insurance. Blood-Gluco 2021-0 Yes [id number] Check [facility] se Meter 3-04 sugars 2 ity of Kit 00:00: times a [place] 00 day. Dx. Medical Code E11.9 [facility] per Insurance Lancets 0 Yes [id number] Check [facility] Misc 3-04 blood ity of 00:00: sugar 2 [place] 00 times a Medical day. Branch E11.9. Brand per insurance. Blood-Gluco 2021-0 Yes [id number] Check [facility] se Meter 3-04 sugars 2 ity of Kit 00:00: times a [place] 00 day. Dx. Medical Code E11.9 [facility] per [employer] Lancets 0 Yes [id number] Check [facility] Misc 3-04 blood ity of 00:00: sugar 2 [place] 00 times a Medical day. Branch E11.9. Brand per insurance. Blood-Gluco 2021-0 Yes [id number] Check [facility] se Meter 3-04 sugars 2 ity of Kit 00:00: times a [place] 00 day. Dx. Medical Code E11.9 [facility] Brand per [employer] Lanc[employer] Yes [id number] Check [facility] Misc 3-04 blood ity of 00:00: sugar 2 [place] 00 times a Medical day. Branch E11.9. Brand per insurance. Blood-Gluco 0 Yes [id number] Check [facility] se Meter 3-04 sugars 2 ity of Kit 00:00: times a [place] 00 day. Dx. Medical Code E11.9 [facility] per [employer] Lanc[employer] Yes [id number] Check [facility] Misc 3-04 blood ity of 00:00: sugar 2 [place] 00 times a Medical day. Branch E11.9. Brand per insurance. Blood-Gluco Yes [id number] Check [facility] se Meter 3-04 sugars 2 ity of Kit 00:00: times a [place] 00 day. Dx. Medical Code E11.9 [facility] per [employer] Yes [id number] Check [facility] Misc 3-04 blood ity of 00:00: sugar 2 [place] 00 times a Medical day. Branch E11.9. Brand per insurance. Blood-Gluco 2022- No [id number] Check [facility] se Meter 3-04 04-06 sugars 2 ity of Kit 00:00: 00:00 times a [place] 00 :00 day. Dx. Medical Code E11.9 [facility] Brand per [employer] Lanc[employer] 2022- No [id number] Check [facility] vers Misc 3-04 04-06 blood ity of 00:00: 00:00 sugar 2 [place] 00 :00 times a Medical day. Branch E11.9. Brand per insurance. terbinafine 2020-09 Yes [id number] Apply to [facility] HCL 1 % 0-27 area(s) 2 ity of cream 00:00: (two) [place] 00 times Medical daily. Branch terbinafine 2020-09 Yes [id number] Apply to [facility] HCL 1 % 0-27 area(s) 2 ity of cream 00:00: (two) [place] 00 times Medical daily. Branch terbinafine 2020-09 Yes [id number] Apply to [facility] HCL 1 % 0-27 area(s) 2 ity of cream 00:00: (two) [place] 00 times Medical daily. Branch terbinafine 2020-09 Yes [id number] Apply to [facility] HCL 1 % 0-27 area(s) 2 ity of cream 00:00: (two) [place] 00 times Medical daily. Branch terbinafine 2020-09 Yes [id number] Apply to [facility] HCL 1 % 0-27 area(s) 2 ity of cream 00:00: (two) [place] 00 times Medical daily. Branch terbinafine 2020-09 Yes [id number] Apply to [facility] HCL 1 % 0-27 area(s) 2 ity of cream 00:00: (two) [place] 00 times Medical daily. Branch terbinafine 2020-09 Yes [id number] Apply to [facility] HCL 1 % 0-27 area(s) 2 ity of cream 00:00: (two) [place] 00 times Medical daily. Branch terbinafine 2020-09 Yes [id number] Apply to [facility] HCL 1 % 0-27 area(s) 2 ity of cream 00:00: (two) [place] 00 times Medical daily. Branch terbinafine 2020-09 Yes [id number] Apply to [facility] HCL 1 % 0-27 area(s) 2 ity of cream 00:00: (two) [place] 00 times Medical daily. Branch terbinafine 2020-09 Yes [id number] Apply to [facility] HCL 1 % 0-27 area(s) 2 ity of cream 00:00: (two) [place] 00 times Medical daily. Branch terbinafine 2020-09 Yes [id number] Apply to [facility] HCL 1 % 0-27 area(s) 2 ity of cream 00:00: (two) [place] 00 times Medical daily. Branch terbinafine 2020-09 Yes [id number] Apply to [facility] HCL 1 % 0-27 area(s) 2 ity of cream 00:00: (two) [place] 00 times Medical daily. Branch terbinafine 2020-09 Yes [id number] Apply to [facility] HCL 1 % 0-27 area(s) 2 ity of cream 00:00: (two) [place] 00 times Medical daily. Branch terbinafine 2020-09 Yes [id number] Apply to [facility] HCL 1 % 0-27 area(s) 2 ity of cream 00:00: (two) [place] 00 times Medical daily. Branch terbinafine 2020-09 Yes [id number] Apply to [facility] HCL 1 % 0-27 area(s) 2 ity of cream 00:00: (two) [place] 00 times Medical daily. Branch terbinafine 2020-09 Yes [id number] Apply to [facility] HCL 1 % 0-27 area(s) 2 ity of cream 00:00: (two) [place] 00 times Medical daily. Branch terbinafine 2020-09 Yes [id number] Apply to [facility] HCL 1 % 0-27 area(s) 2 ity of cream 00:00: (two) [place] 00 times Medical daily. Branch terbinafine 2020-09 Yes [id number] Apply to [facility] HCL 1 % 0-27 area(s) 2 ity of cream 00:00: (two) [place] 00 times Medical daily. Branch terbinafine 2020-09 Yes [id number] Apply to [facility] HCL 1 % 0-27 area(s) 2 ity of cream 00:00: (two) [place] 00 times Medical daily. Branch terbinafine 2020-09 Yes [id number] Apply to [facility] HCL 1 % 0-27 area(s) 2 ity of cream 00:00: (two) [place] 00 times Medical daily. Branch terbinafine 2020-09 Yes [id number] Apply to [facility] HCL 1 % 0-27 area(s) 2 ity of cream 00:00: (two) [place] times Medical daily. Branch terbinafine 2020-09 Yes [id number] Apply to [facility] HCL 1 % 0-27 area(s) 2 ity of cream 00:00: (two) [place] times Medical daily. Branch terbinafine 2020-09 Yes [id number] Apply to [facility] HCL 1 % 0-27 area(s) 2 ity of cream 00:00: (two) [place] 00 times Medical daily. Branch terbinafine 2020-09 Yes [id number] Apply to [facility] HCL 1 % 0-27 area(s) 2 ity of cream 00:00: (two) [place] 00 times Medical daily. Branch terbinafine 2020-09 Yes [id number] Apply to [facility] HCL 1 % 0-27 area(s) 2 ity of cream 00:00: (two) [place] 00 times Medical daily. Branch terbinafine 2020- Yes [id number] Apply to [facility] HCL 1 % 0-27 area(s) 2 ity of cream 00:00: (two) [place] 00 times Medical daily. Branch terbinafine 2020- Yes [id number] Apply to [facility] HCL 1 % 0-27 area(s) 2 ity of cream 00:00: (two) [place] 00 times Medical daily. Branch terbinafine 2020- Yes [id number] Apply to [facility] HCL 1 % 0-27 area(s) 2 ity of cream 00:00: (two) [place] 00 times Medical daily. Branch terbinafine 2020- Yes [id number] Apply to [facility] HCL 1 % 0-27 area(s) 2 ity of cream 00:00: (two) [place] 00 times Medical daily. Branch terbinafine 2020- Yes [id number] Apply to [facility] HCL 1 % 0-27 area(s) 2 ity of cream 00:00: (two) [place] 00 times Medical daily. Branch terbinafine 2020- Yes [id number] Apply to [facility] HCL 1 % 0-27 area(s) 2 ity of cream 00:00: (two) [place] 00 times Medical daily. Branch terbinafine 2020- Yes [id number] Apply to [facility] HCL 1 % 0-27 area(s) 2 ity of cream 00:00: (two) [place] 00 times Medical daily. Branch terbinafine 2020- Yes [id number] Apply to [facility] HCL 1 % 0-27 area(s) 2 ity of cream 00:00: (two) [place] times Medical daily. Branch terbinafine 2020- Yes [id number] Apply to [facility] HCL 1 % 0-27 area(s) 2 ity of cream 00:00: (two) [place] 00 times Medical daily. Branch terbinafine 2020- Yes [id number] Apply to [facility] HCL 1 % 0-27 area(s) 2 ity of cream 00:00: (two) [place] 00 times Medical daily. Branch terbinafine 2020- Yes [id number] Apply to [facility] HCL 1 % 0-27 area(s) 2 ity of cream 00:00: (two) [place] 00 times Medical daily. Branch terbinafine 2020- Yes [id number] Apply to [facility] HCL 1 % 0-27 area(s) 2 ity of cream 00:00: (two) [place] 00 times Medical daily. Branch terbinafine 2020- Yes [id number] Apply to [facility] HCL 1 % 0-27 area(s) 2 ity of cream 00:00: (two) [place] times Medical daily. Branch terbinafine 2020- Yes [id number] Apply to [facility] HCL 1 % 0-27 area(s) 2 ity of cream 00:00: (two) [place] times Medical daily. Branch terbinafine 2020- Yes [id number] Apply to [facility] HCL 1 % 0-27 area(s) 2 ity of cream 00:00: (two) [place] 00 times Medical daily. Branch terbinafine 2020- Yes [id number] Apply to [facility] HCL 1 % 0-27 area(s) 2 ity of cream 00:00: (two) [place] times Medical daily. Branch terbinafine 2020- Yes [id number] Apply to [facility] HCL 1 % 0-27 area(s) 2 ity of cream 00:00: (two) [place] times Medical daily. Branch terbinafine 2020- Yes [id number] Apply to [facility] HCL 1 % 0-27 area(s) 2 ity of cream 00:00: (two) [place] times Medical daily. Branch terbinafine 2020- Yes [id number] Apply to [facility] HCL 1 % 0-27 area(s) 2 ity of cream 00:00: (two) [place] times Medical daily. Branch terbinafine 2020- Yes [id number] Apply to [facility] HCL 1 % 0-27 area(s) 2 ity of cream 00:00: (two) [place] times Medical daily. Branch terbinafine 2020- Yes [id number] Apply to [facility] HCL 1 % 0-27 area(s) 2 ity of cream 00:00: (two) [place] times Medical daily. Branch terbinafine 2020- Yes [id number] Apply to [facility] HCL 1 % 0-27 area(s) 2 ity of cream 00:00: (two) [place] times Medical daily. Branch terbinafine 2020- Yes [id number] Apply to [facility] HCL 1 % 0-27 area(s) 2 ity of cream 00:00: (two) [place] 00 times Medical daily. Branch terbinafine 2020- Yes [id number] Apply to [facility] HCL 1 % 0-27 area(s) 2 ity of cream 00:00: (two) [place] times Medical daily. Branch terbinafine 2020- Yes [id number] Apply to [facility] HCL 1 % 0-27 area(s) 2 ity of cream 00:00: (two) [place] times Medical daily. Branch terbinafine 2020- Yes [id number] Apply to [facility] HCL 1 % 0-27 area(s) 2 ity of cream 00:00: (two) [place] 00 times Medical daily. Branch terbinafine 2020- Yes [id number] Apply to [facility] HCL 1 % 0-27 area(s) 2 ity of cream 00:00: (two) [place] times Medical daily. Branch terbinafine 2020- Yes [id number] Apply to [facility] HCL 1 % 0-27 area(s) 2 ity of cream 00:00: (two) [place] times Medical daily. Branch terbinafine 2020- Yes [id number] Apply to [facility] HCL 1 % 0-27 area(s) 2 ity of cream 00:00: (two) [place] times Medical daily. Branch terbinafine 2020- Yes [id number] Apply to [facility] HCL 1 % 0-27 area(s) 2 ity of cream 00:00: (two) [place] times Medical daily. Branch terbinafine 2020- Yes [id number] Apply to [facility] HCL 1 % 0-27 area(s) 2 ity of cream 00:00: (two) [place] times Medical daily. Branch terbinafine 2020- Yes [id number] Apply to [facility] HCL 1 % 0-27 area(s) 2 ity of cream 00:00: (two) [place] times Medical daily. Branch terbinafine 2020-1 Yes [id number] Apply to [facility] HCL 1 % 0-27 area(s) 2 ity of cream 00:00: (two) [place] 00 times Medical daily. Branch terbinafine 2020- Yes [id number] Apply to [facility] HCL 1 % 0-27 area(s) 2 ity of cream 00:00: (two) [place] 00 times Medical daily. Branch terbinafine 2020-09 Yes [id number] Apply to [facility] HCL 1 % 0-27 area(s) 2 ity of cream 00:00: (two) [place] 00 times Medical daily. Branch terbinafine 2020- Yes [id number] Apply to [facility] HCL 1 % 0-27 area(s) 2 ity of cream 00:00: (two) [place] times Medical daily. Branch terbinafine 2020- Yes [id number] Apply to [facility] HCL 1 % 0-27 area(s) 2 ity of cream 00:00: (two) [place] 00 times Medical daily. Branch terbinafine 2020- Yes [id number] Apply to [facility] HCL 1 % 0-27 area(s) 2 ity of cream 00:00: (two) [place] times Medical daily. Branch terbinafine 2020- Yes [id number] Apply to [facility] HCL 1 % 0-27 area(s) 2 ity of cream 00:00: (two) [place] times Medical daily. Branch terbinafine 2020-09 Yes [id number] Apply to [facility] HCL 1 % 0-27 area(s) 2 ity of cream 00:00: (two) [place] 00 times Medical daily. Branch terbinafine 2020-09 Yes [id number] Apply to [facility] HCL 1 % 0-27 area(s) 2 ity of cream 00:00: (two) [place] times Medical daily. Branch terbinafine 2020-09 Yes [id number] Apply to [facility] HCL 1 % 0-27 area(s) 2 ity of cream 00:00: (two) [place] times Medical daily. Branch terbinafine 2020- Yes [id number] Apply to [facility] HCL 1 % 0-27 area(s) 2 ity of cream 00:00: (two) [place] 00 times Medical daily. Branch terbinafine 2020- Yes [id number] Apply to [facility] HCL 1 % 0-27 area(s) 2 ity of cream 00:00: (two) [place] 00 times Medical daily. Branch terbinafine 2020- Yes [id number] Apply to [facility] HCL 1 % 0-27 area(s) 2 ity of cream 00:00: (two) [place] 00 times Medical daily. Branch terbinafine 2020-09 Yes [id number] Apply to [facility] HCL 1 % 0-27 area(s) 2 ity of cream 00:00: (two) [place] 00 times Medical daily. Branch terbinafine 2020-09 Yes [id number] Apply to [facility] HCL 1 % 0-27 area(s) 2 ity of cream 00:00: (two) [place] 00 times Medical daily. Branch terbinafine 2020-09 Yes [id number] Apply to [facility] HCL 1 % 0-27 area(s) 2 ity of cream 00:00: (two) [place] 00 times Medical daily. Branch terbinafine 2020-09 Yes [id number] Apply to [facility] HCL 1 % 0-27 area(s) 2 ity of cream 00:00: (two) [place] 00 times Medical daily. Branch terbinafine 2020-09 Yes [id number] Apply to [facility] HCL 1 % 0-27 area(s) 2 ity of cream 00:00: (two) [place] 00 times Medical daily. Branch terbinafine 2020-09 Yes [id number] Apply to [facility] HCL 1 % 0-27 area(s) 2 ity of cream 00:00: (two) [place] 00 times Medical daily. Branch terbinafine 2020-09 Yes [id number] Apply to [facility] HCL 1 % 0-27 area(s) 2 ity of cream 00:00: (two) [place] 00 times Medical daily. Branch terbinafine 2020-09 Yes [id number] Apply to [facility] HCL 1 % 0-27 area(s) 2 ity of cream 00:00: (two) [place] times Medical daily. Branch terbinafine 2020-09 Yes [id number] Apply to [facility] HCL 1 % 0-27 area(s) 2 ity of cream 00:00: (two) [place] 00 times Medical daily. Branch terbinafine 2020-09 Yes [id number] Apply to [facility] HCL 1 % 0-27 area(s) 2 ity of cream 00:00: (two) [place] 00 times Medical daily. Branch terbinafine 2020-09 Yes [id number] Apply to [facility] HCL 1 % 0-27 area(s) 2 ity of cream 00:00: (two) [place] 00 times Medical daily. Branch terbinafine 2020-09 Yes [id number] Apply to [facility] HCL 1 % 0-27 area(s) 2 ity of cream 00:00: (two) [place] 00 times Medical daily. Branch terbinafine 2020- Yes [id number] Apply to [facility] HCL 1 % 0-27 area(s) 2 ity of cream 00:00: (two) [place] 00 times Medical daily. Branch terbinafine 2020- Yes [id number] Apply to [facility] HCL 1 % 0-27 [...] 00 TWICE Medical DAILY Branch NEEDED nystatin 1-0 Yes [id number] Apply to [facility] 100,000 7-19 area(s) 2 ity of unit/gram 00:00: (two) [place] ointment 00 times Medical daily. Branch nystatin 1-0 Yes [id number] Apply to [facility] 100,000 7-19 area(s) 2 ity of unit/gram 00:00: (two) [place] ointment 00 times Medical daily. Branch nystatin 1-0 Yes [id number] Apply to [facility] 100,000 7-19 area(s) 2 ity of unit/gram 00:00: (two) [place] ointment 00 times Medical daily. Branch nystatin 1-0 Yes [id number] Apply to [facility] 100,000 7-19 area(s) 2 ity of unit/gram 00:00: (two) [place] ointment 00 times Medical daily. Branch nystatin 1-0 Yes [id number] Apply to [facility] 100,000 7-19 area(s) 2 ity of unit/gram 00:00: (two) [place] ointment 00 times Medical daily. Branch nystatin 1-0 Yes [id number] Apply to [facility] 100,000 7-19 area(s) 2 ity of unit/gram 00:00: (two) [place] ointment 00 times Medical daily. Branch nystatin 1-0 Yes [id number] Apply to [facility] 100,000 7-19 area(s) 2 ity of unit/gram 00:00: (two) [place] ointment 00 times Medical daily. Branch nystatin 1-0 Yes [id number] Apply to [facility] 100,000 7-19 area(s) 2 ity of unit/gram 00:00: (two) [place] ointment 00 times Medical daily. Branch nystatin 1-0 Yes [id number] Apply to [facility] 100,000 7-19 area(s) 2 ity of unit/gram 00:00: (two) [place] ointment 00 times Medical daily. Branch nystatin 2021-0 Yes [id number] Apply to [facility] 100,000 7-19 area(s) 2 ity of unit/gram 00:00: (two) [place] ointment 00 times Medical daily. Branch nystatin 1-0 Yes [id number] Apply to [facility] 100,000 7-19 area(s) 2 ity of unit/gram 00:00: (two) [place] ointment 00 times Medical daily. Branch nystatin 2021-0 Yes [id number] Apply to [facility] 100,000 7-19 area(s) 2 ity of unit/gram 00:00: (two) [place] ointment 00 times Medical daily. Branch nystatin 2021-0 Yes [id number] Apply to [facility] 100,000 7-19 area(s) 2 ity of unit/gram 00:00: (two) [place] ointment 00 times Medical daily. Branch nystatin 2021-0 Yes [id number] Apply to [facility] 100,000 7-19 area(s) 2 ity of unit/gram 00:00: (two) [place] ointment 00 times Medical daily. Branch nystatin 1-0 Yes [id number] Apply to [facility] 100,000 7-19 area(s) 2 ity of unit/gram 00:00: (two) [place] ointment 00 times Medical daily. Branch nystatin 1-0 Yes [id number] Apply to [facility] 100,000 7-19 area(s) 2 ity of unit/gram 00:00: (two) [place] ointment 00 times Medical daily. Branch nystatin 1-0 Yes [id number] Apply to [facility] 100,000 7-19 area(s) 2 ity of unit/gram 00:00: (two) [place] ointment 00 times Medical daily. Branch nystatin 2021-0 Yes [id number] Apply to [facility] 100,000 7-19 area(s) 2 ity of unit/gram 00:00: (two) [place] ointment 00 times Medical daily. Branch nystatin 2021-0 Yes [id number] Apply to [facility] 100,000 7-19 area(s) 2 ity of unit/gram 00:00: (two) [place] ointment 00 times Medical daily. Branch nystatin 2021-0 Yes [id number] Apply to [facility] 100,000 7-19 area(s) 2 ity of unit/gram 00:00: (two) [place] ointment 00 times Medical daily. Branch nystatin 2021-0 Yes [id number] Apply to [facility] 100,000 7-19 area(s) 2 ity of unit/gram 00:00: (two) [place] ointment 00 times Medical daily. Branch nystatin 2021-0 Yes [id number] Apply to [facility] 100,000 7-19 area(s) 2 ity of unit/gram 00:00: (two) [place] ointment 00 times Medical daily. Branch nystatin 2021-0 Yes [id number] Apply to [facility] 100,000 7-19 area(s) 2 ity of unit/gram 00:00: (two) [place] ointment 00 times Medical daily. Branch nystatin 2021-0 Yes [id number] Apply to [facility] 100,000 7-19 area(s) 2 ity of unit/gram 00:00: (two) [place] ointment 00 times Medical daily. Branch nystatin 2021-0 Yes [id number] Apply to [facility] 100,000 7-19 area(s) 2 ity of unit/gram 00:00: (two) [place] ointment 00 times Medical daily. Branch nystatin 1-0 Yes [id number] Apply to [facility] 100,000 7-19 area(s) 2 ity of unit/gram 00:00: (two) [place] ointment 00 times Medical daily. Branch nystatin 2021-0 Yes [id number] Apply to [facility] 100,000 7-19 area(s) 2 ity of unit/gram 00:00: (two) [place] ointment 00 times Medical daily. Branch nystatin 2021-0 Yes [id number] Apply to [facility] 100,000 7-19 area(s) 2 ity of unit/gram 00:00: (two) [place] ointment 00 times Medical daily. Branch nystatin 2021-0 Yes [id number] Apply to [facility] 100,000 7-19 area(s) 2 ity of unit/gram 00:00: (two) [place] ointment 00 times Medical daily. Branch nystatin 2021-0 Yes [id number] Apply to [facility] 100,000 7-19 area(s) 2 ity of unit/gram 00:00: (two) [place] ointment 00 times Medical daily. Branch nystatin 2021-0 Yes [id number] Apply to [facility] 100,000 7-19 area(s) 2 ity of unit/gram 00:00: (two) [place] ointment 00 times Medical daily. Branch nystatin 2021-0 Yes [id number] Apply to [facility] 100,000 7-19 area(s) 2 ity of unit/gram 00:00: (two) [place] ointment 00 times Medical daily. Branch nystatin 2021-0 Yes [id number] Apply to [facility] 100,000 7-19 area(s) 2 ity of unit/gram 00:00: (two) [place] ointment 00 times Medical daily. Branch nystatin 2021-0 Yes [id number] Apply to [facility] 100,000 7-19 area(s) 2 ity of unit/gram 00:00: (two) [place] ointment 00 times Medical daily. Branch nystatin 2021-0 Yes [id number] Apply to [facility] 100,000 7-19 area(s) 2 ity of unit/gram 00:00: (two) [place] ointment 00 times Medical daily. Branch nystatin 1-0 Yes [id number] Apply to [facility] 100,000 7-19 area(s) 2 ity of unit/gram 00:00: (two) [place] ointment 00 times Medical daily. Branch nystatin 1-0 Yes [id number] Apply to [facility] 100,000 7-19 area(s) 2 ity of unit/gram 00:00: (two) [place] ointment 00 times Medical daily. Branch nystatin 2021-0 Yes [id number] Apply to [facility] 100,000 7-19 area(s) 2 ity of unit/gram 00:00: (two) [place] ointment 00 times Medical daily. Branch nystatin 2021-0 Yes [id number] Apply to [facility] 100,000 7-19 area(s) 2 ity of unit/gram 00:00: (two) [place] ointment 00 times Medical daily. Branch nystatin 2021-0 Yes [id number] Apply to [facility] 100,000 7-19 area(s) 2 ity of unit/gram 00:00: (two) [place] ointment 00 times Medical daily. Branch nystatin 2021-0 Yes [id number] Apply to [facility] 100,000 7-19 area(s) 2 ity of unit/gram 00:00: (two) [place] ointment 00 times Medical daily. Branch nystatin 2021-0 Yes [id number] Apply to [facility] 100,000 7-19 area(s) 2 ity of unit/gram 00:00: (two) [place] ointment 00 times Medical daily. Branch nystatin 2021-0 Yes [id number] Apply to [facility] 100,000 7-19 area(s) 2 ity of unit/gram 00:00: (two) [place] ointment 00 times Medical daily. Branch nystatin 2021-0 Yes [id number] Apply to [facility] 100,000 7-19 area(s) 2 ity of unit/gram 00:00: (two) [place] ointment 00 times Medical daily. Branch nystatin 2021-0 Yes [id number] Apply to [facility] 100,000 7-19 area(s) 2 ity of unit/gram 00:00: (two) [place] ointment 00 times Medical daily. Branch nystatin 2021-0 Yes [id number] Apply to [facility] 100,000 7-19 area(s) 2 ity of unit/gram 00:00: (two) [place] ointment 00 times Medical daily. Branch nystatin 2021-0 Yes [id number] Apply to [facility] 100,000 7-19 area(s) 2 ity of unit/gram 00:00: (two) [place] ointment 00 times Medical daily. Branch nystatin 2021-0 Yes [id number] Apply to [facility] 100,000 7-19 area(s) 2 ity of unit/gram 00:00: (two) [place] ointment 00 times Medical daily. Branch nystatin 2021-0 Yes [id number] Apply to [facility] 100,000 7-19 area(s) 2 ity of unit/gram 00:00: (two) [place] ointment 00 times Medical daily. Branch nystatin 2021-0 Yes [id number] Apply to [facility] 100,000 7-19 area(s) 2 ity of unit/gram 00:00: (two) [place] ointment 00 times Medical daily. Branch nystatin 2021-0 Yes [id number] Apply to [facility] 100,000 7-19 area(s) 2 ity of unit/gram 00:00: (two) [place] ointment 00 times Medical daily. Branch nystatin 2021-0 Yes [id number] Apply to [facility] 100,000 7-19 area(s) 2 ity of unit/gram 00:00: (two) [place] ointment 00 times Medical daily. Branch nystatin 2021-0 Yes [id number] Apply to [facility] 100,000 7-19 area(s) 2 ity of unit/gram 00:00: (two) [place] ointment 00 times Medical daily. Branch nystatin 2021-0 Yes [id number] Apply to [facility] 100,000 7-19 area(s) 2 ity of unit/gram 00:00: (two) [place] ointment 00 times Medical daily. Branch nystatin 2021-0 Yes [id number] Apply to [facility] 100,000 7-19 area(s) 2 ity of unit/gram 00:00: (two) [place] ointment 00 times Medical daily. Branch nystatin 2021-0 Yes [id number] Apply to [facility] 100,000 7-19 area(s) 2 ity of unit/gram 00:00: (two) [place] ointment 00 times Medical daily. Branch nystatin 2021-0 Yes [id number] Apply to [facility] 100,000 7-19 area(s) 2 ity of unit/gram 00:00: (two) [place] ointment 00 times Medical daily. Branch nystatin 1-0 Yes [id number] Apply to [facility] 100,000 7-19 area(s) 2 ity of unit/gram 00:00: (two) [place] ointment 00 times Medical daily. Branch nystatin 2021-0 Yes [id number] Apply to [facility] 100,000 7-19 area(s) 2 ity of unit/gram 00:00: (two) [place] ointment 00 times Medical daily. Branch nystatin 2021-0 Yes [id number] Apply to [facility] 100,000 7-19 area(s) 2 ity of unit/gram 00:00: (two) [place] ointment 00 times Medical daily. Branch nystatin 2021-0 Yes [id number] Apply to [facility] 100,000 7-19 area(s) 2 ity of unit/gram 00:00: (two) [place] ointment 00 times Medical daily. Branch nystatin 2021-0 Yes [id number] Apply to [facility] 100,000 7-19 area(s) 2 ity of unit/gram 00:00: (two) [place] ointment 00 times Medical daily. Branch nystatin 2021-0 Yes [id number] Apply to [facility] 100,000 7-19 area(s) 2 ity of unit/gram 00:00: (two) [place] ointment 00 times Medical daily. Branch nystatin 2021-0 Yes [id number] Apply to [facility] 100,000 7-19 area(s) 2 ity of unit/gram 00:00: (two) [place] ointment 00 times Medical daily. Branch nystatin 2021-0 Yes [id number] Apply to [facility] 100,000 7-19 area(s) 2 ity of unit/gram 00:00: (two) [place] ointment 00 times Medical daily. Branch nystatin 2021-0 Yes [id number] Apply to [facility] 100,000 7-19 area(s) 2 ity of unit/gram 00:00: (two) [place] ointment 00 times Medical daily. Branch nystatin 2021-0 Yes [id number] Apply to [facility] 100,000 7-19 area(s) 2 ity of unit/gram 00:00: (two) [place] ointment 00 times Medical daily. Branch nystatin 2021-0 Yes [id number] Apply to [facility] 100,000 7-19 area(s) 2 ity of unit/gram 00:00: (two) [place] ointment 00 times Medical daily. Branch nystatin 2021-0 Yes [id number] Apply to [facility] 100,000 7-19 area(s) 2 ity of unit/gram 00:00: (two) [place] ointment 00 times Medical daily. Branch nystatin 2021-0 Yes [id number] Apply to [facility] 100,000 7-19 area(s) 2 ity of unit/gram 00:00: (two) [place] ointment 00 times Medical daily. Branch nystatin 2021-0 Yes [id number] Apply to [facility] 100,000 7-19 area(s) 2 ity of unit/gram 00:00: (two) [place] ointment 00 times Medical daily. Branch nystatin 2021-0 Yes [id number] Apply to [facility] 100,000 7-19 area(s) 2 ity of unit/gram 00:00: (two) [place] ointment 00 times Medical daily. Branch nystatin 2021-0 Yes [id number] Apply to [facility] 100,000 7-19 area(s) 2 ity of unit/gram 00:00: (two) [place] ointment 00 times Medical daily. Branch nystatin 2021-0 Yes [id number] Apply to [facility] 100,000 7-19 area(s) 2 ity of unit/gram 00:00: (two) [place] ointment 00 times Medical daily. Branch nystatin 2021-0 Yes [id number] Apply to [facility] 100,000 7-19 area(s) 2 ity of unit/gram 00:00: (two) [place] ointment 00 times Medical daily. Branch nystatin 2021-0 Yes [id number] Apply to [facility] 100,000 7-19 area(s) 2 ity of unit/gram 00:00: (two) [place] ointment 00 times Medical daily. Branch nystatin 2021-0 Yes [id number] Apply to [facility] 100,000 7-19 area(s) 2 ity of unit/gram 00:00: (two) [place] ointment 00 times Medical daily. Branch nystatin 1-0 Yes [id number] Apply to [facility] 100,000 7-19 area(s) 2 ity of unit/gram 00:00: (two) [place] ointment 00 times Medical daily. Branch nystatin 2021-0 Yes [id number] Apply to [facility] 100,000 7-19 area(s) 2 ity of unit/gram 00:00: (two) [place] ointment 00 times Medical daily. Branch nystatin 2021-0 Yes [id number] Apply to [facility] 100,000 7-19 area(s) 2 ity of unit/gram 00:00: (two) [place] ointment 00 times Medical daily. Branch nystatin 2021-0 Yes [id number] Apply to [facility] 100,000 7-19 area(s) 2 ity of unit/gram 00:00: (two) [place] ointment 00 times Medical daily. Branch nystatin 2021-0 Yes [id number] Apply to [facility] 100,000 7-19 area(s) 2 ity of unit/gram 00:00: (two) [place] ointment 00 times Medical daily. Branch nystatin Yes [id number] Apply to [facility] 100,000 7-19 area(s) 2 ity of unit/gram 00:00: (two) [place] ointment 00 times Medical daily. Branch nystatin Yes [id number] Apply to [facility] 100,000 7-19 area(s) 2 ity of unit/gram 00:00: (two) [place] ointment 00 times Medical daily. Branch Alcohol Yes [id number] Use to [facility] vers Swabs 7-28 test blood ity of (ALCOHOL 00:00: sugar 4 [place] PREP PADS) 00 times Medical PadM daily Branch Alcohol 20200 Yes [id number] Use to [facility] vers Swabs 7-28 test blood ity of (ALCOHOL 00:00: sugar 4 [place] PREP PADS) 00 times Medical PadM daily Branch Alcohol 2020-0 Yes [id number] Use to [facility] vers Swabs 7-28 test blood ity of (ALCOHOL 00:00: sugar 4 [place] PREP PADS) 00 times Medical PadM daily Branch Alcohol 2020-0 Yes [id number] Use to [facility] vers Swabs 7-28 test blood ity of (ALCOHOL 00:00: sugar 4 [place] PREP PADS) 00 times Medical PadM daily Branch Alcohol 2020-0 Yes [id number] Use to [facility] vers Swabs 7-28 test blood ity of (ALCOHOL 00:00: sugar 4 [place] PREP PADS) 00 times Medical PadM daily Branch Alcohol 2020-0 Yes [id number] Use to [facility] vers Swabs 7-28 test blood ity of (ALCOHOL 00:00: sugar 4 [place] PREP PADS) 00 times Medical PadM daily Branch Alcohol 2020-0 Yes [id number] Use to [facility] vers Swabs 7-28 test blood ity of (ALCOHOL 00:00: sugar 4 [place] PREP PADS) 00 times Medical PadM daily Branch Alcohol 2020-0 Yes [id number] Use to [facility] vers Swabs 7-28 test blood ity of (ALCOHOL 00:00: sugar 4 [place] PREP PADS) 00 times Medical PadM daily Branch Alcohol 2020-0 Yes [id number] Use to [facility] vers Swabs 7-28 test blood ity of (ALCOHOL 00:00: sugar 4 [place] PREP PADS) 00 times Medical PadM daily Branch Alcohol 2020-0 Yes [id number] Use to [facility] vers Swabs 7-28 test blood ity of (ALCOHOL 00:00: sugar 4 [place] PREP PADS) 00 times Medical PadM daily Branch Alcohol 2020-0 Yes [id number] Use to [facility] vers Swabs 7-28 test blood ity of (ALCOHOL 00:00: sugar 4 [place] PREP PADS) 00 times Medical PadM daily Branch Alcohol 2020-0 Yes [id number] Use to [facility] vers Swabs 7-28 test blood ity of (ALCOHOL 00:00: sugar 4 [place] PREP PADS) 00 times Medical PadM daily Branch Alcohol 2020-0 Yes [id number] Use to [facility] vers Swabs 7-28 test blood ity of (ALCOHOL 00:00: sugar 4 [place] PREP PADS) 00 times Medical PadM daily Branch Alcohol 2020-0 Yes [id number] Use to [facility] vers Swabs 7-28 test blood ity of (ALCOHOL 00:00: sugar 4 [place] PREP PADS) 00 times Medical PadM daily Branch Alcohol 2020-0 Yes [id number] Use to [facility] vers Swabs 7-28 test blood ity of (ALCOHOL 00:00: sugar 4 [place] PREP PADS) 00 times Medical PadM daily Branch Alcohol 2020-0 Yes [id number] Use to [facility] vers Swabs 7-28 test blood ity of (ALCOHOL 00:00: sugar 4 [place] PREP PADS) 00 times Medical PadM daily Branch Alcohol 2020-0 Yes [id number] Use to [facility] vers Swabs 7-28 test blood ity of (ALCOHOL 00:00: sugar 4 [place] PREP PADS) 00 times Medical PadM daily Branch Alcohol 2020-0 Yes [id number] Use to [facility] vers Swabs 7-28 test blood ity of (ALCOHOL 00:00: sugar 4 [place] PREP PADS) 00 times Medical PadM daily Branch Alcohol 2020-0 Yes [id number] Use to [facility] vers Swabs 7-28 test blood ity of (ALCOHOL 00:00: sugar 4 [place] PREP PADS) 00 times Medical PadM daily Branch Alcohol 2020-0 Yes [id number] Use to [facility] vers Swabs 7-28 test blood ity of (ALCOHOL 00:00: sugar 4 [place] PREP PADS) 00 times Medical PadM daily Branch Alcohol 2020-0 Yes [id number] Use to [facility] vers Swabs 7-28 test blood ity of (ALCOHOL 00:00: sugar 4 [place] PREP PADS) 00 times Medical PadM daily Branch Alcohol 2020-0 Yes [id number] Use to [facility] vers Swabs 7-28 test blood ity of (ALCOHOL 00:00: sugar 4 [place] PREP PADS) 00 times Medical PadM daily Branch Alcohol 2020-0 Yes [id number] Use to [facility] vers Swabs 7-28 test blood ity of (ALCOHOL 00:00: sugar 4 [place] PREP PADS) 00 times Medical PadM daily Branch Alcohol 2020-0 Yes [id number] Use to [facility] vers Swabs 7-28 test blood ity of (ALCOHOL 00:00: sugar 4 [place] PREP PADS) 00 times Medical PadM daily Branch Alcohol 2020-0 Yes [id number] Use to [facility] vers Swabs 7-28 test blood ity of (ALCOHOL 00:00: sugar 4 [place] PREP PADS) 00 times Medical PadM daily Branch Alcohol 2020-0 Yes [id number] Use to [facility] vers Swabs 7-28 test blood ity of (ALCOHOL 00:00: sugar 4 [place] PREP PADS) 00 times Medical PadM daily Branch Alcohol 2020-0 Yes [id number] Use to [facility] vers Swabs 7-28 test blood ity of (ALCOHOL 00:00: sugar 4 [place] PREP PADS) 00 times Medical PadM daily Branch Alcohol 2020-0 Yes [id number] Use to [facility] vers Swabs 7-28 test blood ity of (ALCOHOL 00:00: sugar 4 [place] PREP PADS) 00 times Medical PadM daily Branch Alcohol 2020-0 Yes [id number] Use to [facility] vers Swabs 7-28 test blood ity of (ALCOHOL 00:00: sugar 4 [place] PREP PADS) 00 times Medical PadM daily Branch Alcohol 2020-0 Yes [id number] Use to [facility] vers Swabs 7-28 test blood ity of (ALCOHOL 00:00: sugar 4 [place] PREP PADS) 00 times Medical PadM daily Branch Alcohol 2020-0 Yes [id number] Use to [facility] vers Swabs 7-28 test blood ity of (ALCOHOL 00:00: sugar 4 [place] PREP PADS) 00 times Medical PadM daily Branch Alcohol 2020-0 Yes [id number] Use to [facility] vers Swabs 7-28 test blood ity of (ALCOHOL 00:00: sugar 4 [place] PREP PADS) 00 times Medical PadM daily Branch Alcohol 2020-0 Yes [id number] Use to [facility] vers Swabs 7-28 test blood ity of (ALCOHOL 00:00: sugar 4 [place] PREP PADS) 00 times Medical PadM daily Branch Alcohol 2020-0 Yes [id number] Use to [facility] vers Swabs 7-28 test blood ity of (ALCOHOL 00:00: sugar 4 [place] PREP PADS) 00 times Medical PadM daily Branch Alcohol 2020-0 Yes [id number] Use to [facility] vers Swabs 7-28 test blood ity of (ALCOHOL 00:00: sugar 4 [place] PREP PADS) 00 times Medical PadM daily Branch Alcohol 2020-0 Yes [id number] Use to [facility] vers Swabs 7-28 test blood ity of (ALCOHOL 00:00: sugar 4 [place] PREP PADS) 00 times Medical PadM daily Branch Alcohol 2020-0 Yes [id number] Use to [facility] vers Swabs 7-28 test blood ity of (ALCOHOL 00:00: sugar 4 [place] PREP PADS) 00 times Medical PadM daily Branch Alcohol 2020-0 Yes [id number] Use to [facility] vers Swabs 7-28 test blood ity of (ALCOHOL 00:00: sugar 4 [place] PREP PADS) 00 times Medical PadM daily Branch Alcohol 2020-0 Yes [id number] Use to [facility] vers Swabs 7-28 test blood ity of (ALCOHOL 00:00: sugar 4 [place] PREP PADS) 00 times Medical PadM daily Branch Alcohol 2020-0 Yes [id number] Use to [facility] vers Swabs 7-28 test blood ity of (ALCOHOL 00:00: sugar 4 [place] PREP PADS) 00 times Medical PadM daily Branch Alcohol 2020-0 Yes [id number] Use to [facility] vers Swabs 7-28 test blood ity of (ALCOHOL 00:00: sugar 4 [place] PREP PADS) 00 times Medical PadM daily Branch Alcohol 2020-0 Yes [id number] Use to [facility] vers Swabs 7-28 test blood ity of (ALCOHOL 00:00: sugar 4 [place] PREP PADS) 00 times Medical PadM daily Branch Alcohol 2020-0 Yes [id number] Use to [facility] vers Swabs 7-28 test blood ity of (ALCOHOL 00:00: sugar 4 [place] PREP PADS) 00 times Medical PadM daily Branch Alcohol 2020-0 Yes [id number] Use to [facility] vers Swabs 7-28 test blood ity of (ALCOHOL 00:00: sugar 4 [place] PREP PADS) 00 times Medical PadM daily Branch Alcohol 2020-0 Yes [id number] Use to [facility] vers Swabs 7-28 test blood ity of (ALCOHOL 00:00: sugar 4 [place] PREP PADS) 00 times Medical PadM daily Branch Alcohol 2020-0 Yes [id number] Use to [facility] vers Swabs 7-28 test blood ity of (ALCOHOL 00:00: sugar 4 [place] PREP PADS) 00 times Medical PadM daily Branch Alcohol 2020-0 Yes [id number] Use to [facility] vers Swabs 7-28 test blood ity of (ALCOHOL 00:00: sugar 4 [place] PREP PADS) 00 times Medical PadM daily Branch Alcohol 2020-0 Yes [id number] Use to [facility] vers Swabs 7-28 test blood ity of (ALCOHOL 00:00: sugar 4 [place] PREP PADS) 00 times Medical PadM daily Branch Alcohol 2020-0 Yes [id number] Use to [facility] vers Swabs 7-28 test blood ity of (ALCOHOL 00:00: sugar 4 [place] PREP PADS) 00 times Medical PadM daily Branch Alcohol 2020-0 Yes [id number] Use to [facility] vers Swabs 7-28 test blood ity of (ALCOHOL 00:00: sugar 4 [place] PREP PADS) 00 times Medical PadM daily Branch Alcohol 2020-0 Yes [id number] Use to [facility] vers Swabs 7-28 test blood ity of (ALCOHOL 00:00: sugar 4 [place] PREP PADS) 00 times Medical PadM daily Branch Alcohol 2020-0 Yes [id number] Use to [facility] vers Swabs 7-28 test blood ity of (ALCOHOL 00:00: sugar 4 [place] PREP PADS) 00 times Medical PadM daily Branch Alcohol 2020-0 Yes [id number] Use to [facility] vers Swabs 7-28 test blood ity of (ALCOHOL 00:00: sugar 4 [place] PREP PADS) 00 times Medical PadM daily Branch Alcohol 2020-0 Yes [id number] Use to [facility] vers Swabs 7-28 test blood ity of (ALCOHOL 00:00: sugar 4 [place] PREP PADS) 00 times Medical PadM daily Branch Alcohol 2020-0 Yes [id number] Use to [facility] vers Swabs 7-28 test blood ity of (ALCOHOL 00:00: sugar 4 [place] PREP PADS) 00 times Medical PadM daily Branch Alcohol 2020-0 Yes [id number] Use to [facility] vers Swabs 7-28 test blood ity of (ALCOHOL 00:00: sugar 4 [place] PREP PADS) 00 times Medical PadM daily Branch Alcohol 2020-0 Yes [id number] Use to [facility] vers Swabs 7-28 test blood ity of (ALCOHOL 00:00: sugar 4 [place] PREP PADS) 00 times Medical PadM daily Branch Alcohol 2020-0 Yes [id number] Use to [facility] vers Swabs 7-28 test blood ity of (ALCOHOL 00:00: sugar 4 [place] PREP PADS) 00 times Medical PadM daily Branch Alcohol 2020-0 Yes [id number] Use to [facility] vers Swabs 7-28 test blood ity of (ALCOHOL 00:00: sugar 4 [place] PREP PADS) 00 times Medical PadM daily Branch Alcohol 2020-0 Yes [id number] Use to [facility] vers Swabs 7-28 test blood ity of (ALCOHOL 00:00: sugar 4 [place] PREP PADS) 00 times Medical PadM daily Branch Alcohol 2020-0 Yes [id number] Use to [facility] vers Swabs 7-28 test blood ity of (ALCOHOL 00:00: sugar 4 [place] PREP PADS) 00 times Medical PadM daily Branch Alcohol 2020-0 Yes [id number] Use to [facility] vers Swabs 7-28 test blood ity of (ALCOHOL 00:00: sugar 4 [place] PREP PADS) 00 times Medical PadM daily Branch Alcohol 2020-0 Yes [id number] Use to [facility] vers Swabs 7-28 test blood ity of (ALCOHOL 00:00: sugar 4 [place] PREP PADS) 00 times Medical PadM daily Branch Alcohol 2020-0 Yes [id number] Use to [facility] vers Swabs 7-28 test blood ity of (ALCOHOL 00:00: sugar 4 [place] PREP PADS) 00 times Medical PadM daily Branch Alcohol 2020-0 Yes [id number] Use to [facility] vers Swabs 7-28 test blood ity of (ALCOHOL 00:00: sugar 4 [place] PREP PADS) 00 times Medical PadM daily Branch Alcohol 2020-0 Yes [id number] Use to [facility] vers Swabs 7-28 test blood ity of (ALCOHOL 00:00: sugar 4 [place] PREP PADS) 00 times Medical PadM daily Branch Alcohol 2020-0 Yes [id number] Use to [facility] vers Swabs 7-28 test blood ity of (ALCOHOL 00:00: sugar 4 [place] PREP PADS) 00 times Medical PadM daily Branch Alcohol 2020-0 Yes [id number] Use to [facility] vers Swabs 7-28 test blood ity of (ALCOHOL 00:00: sugar 4 [place] PREP PADS) 00 times Medical PadM daily Branch Alcohol 2020-0 Yes [id number] Use to [facility] vers Swabs 7-28 test blood ity of (ALCOHOL 00:00: sugar 4 [place] PREP PADS) 00 times Medical PadM daily Branch Alcohol 2020-0 Yes [id number] Use to [facility] vers Swabs 7-28 test blood ity of (ALCOHOL 00:00: sugar 4 [place] PREP PADS) 00 times Medical PadM daily Branch Alcohol 2020-0 Yes [id number] Use to [facility] vers Swabs 7-28 test blood ity of (ALCOHOL 00:00: sugar 4 [place] PREP PADS) 00 times Medical PadM daily Branch Alcohol 2020-0 Yes [id number] Use to [facility] vers Swabs 7-28 test blood ity of (ALCOHOL 00:00: sugar 4 [place] PREP PADS) 00 times Medical PadM daily Branch Alcohol 2020-0 Yes [id number] Use to [facility] vers Swabs 7-28 test blood ity of (ALCOHOL 00:00: sugar 4 [place] PREP PADS) 00 times Medical PadM daily Branch Alcohol 2020-0 Yes [id number] Use to [facility] vers Swabs 7-28 test blood ity of (ALCOHOL 00:00: sugar 4 [place] PREP PADS) 00 times Medical PadM daily Branch Alcohol 2020-0 Yes [id number] Use to [facility] vers Swabs 7-28 test blood ity of (ALCOHOL 00:00: sugar 4 [place] PREP PADS) 00 times Medical PadM daily Branch Alcohol 2020-0 Yes [id number] Use to [facility] vers Swabs 7-28 test blood ity of (ALCOHOL 00:00: sugar 4 [place] PREP PADS) 00 times Medical PadM daily Branch Alcohol 2020-0 Yes [id number] Use to [facility] vers Swabs 7-28 test blood ity of (ALCOHOL 00:00: sugar 4 [place] PREP PADS) 00 times Medical PadM daily Branch Alcohol 2020-0 Yes [id number] Use to [facility] vers Swabs 7-28 test blood ity of (ALCOHOL 00:00: sugar 4 [place] PREP PADS) 00 times Medical PadM daily Branch Alcohol 2020-0 Yes [id number] Use to [facility] vers Swabs 7-28 test blood ity of (ALCOHOL 00:00: sugar 4 [place] PREP PADS) 00 times Medical PadM daily Branch Alcohol 2020-0 Yes [id number] Use to [facility] vers Swabs 7-28 test blood ity of (ALCOHOL 00:00: sugar 4 [place] PREP PADS) 00 times Medical PadM daily Branch Alcohol 2020-0 Yes [id number] Use to [facility] vers Swabs 7-28 test blood ity of (ALCOHOL 00:00: sugar 4 [place] PREP PADS) 00 times Medical PadM daily Branch Alcohol 2020-0 Yes [id number] Use to [facility] vers Swabs 7-28 test blood ity of (ALCOHOL 00:00: sugar 4 [place] PREP PADS) 00 times Medical PadM daily Branch Alcohol 2020-0 Yes [id number] Use to [facility] vers Swabs 7-28 test blood ity of (ALCOHOL 00:00: sugar 4 [place] PREP PADS) 00 times Medical PadM daily Branch Alcohol 2020-0 Yes [id number] Use to [facility] vers Swabs 7-28 test blood ity of (ALCOHOL 00:00: sugar 4 [place] PREP PADS) 00 times Medical PadM daily Branch LANCING 2019-0 Yes [id number] Use with [facility] DEVICE Misc 8-27 lancets to it y of 00:00: check blood Medical glucose Branch LANCING 2019-0 Yes [id number] Use with [facility] DEVICE Misc 8-27 lancets to it y of 00:00: check blood Medical glucose Branch LANCING 2019-0 Yes [id number] Use with [facility] DEVICE Misc 8-27 lancets to it y of 00:00: check blood Medical glucose Branch LANCING 2019-0 Yes [id number] Use with [facility] DEVICE Misc 8-27 lancets to it y of 00:00: check blood Medical glucose Branch LANCING 2019-0 Yes [id number] Use with [facility] DEVICE Misc 8-27 lancets to it y of 00:00: check blood Medical glucose Branch LANCING 2019-0 Yes [id number] Use with [facility] DEVICE Misc 8-27 lancets to it y of 00:00: check blood Medical glucose Branch LANCING 2019-0 Yes [id number] Use with [facility] DEVICE Misc 8-27 lancets to it y of 00:00: check blood Medical glucose Branch LANCING 2019-0 Yes [id number] Use with [facility] DEVICE Misc 8-27 lancets to it y of 00:00: check blood Medical glucose Branch LANCING 2019-0 Yes [id number] Use with [facility] DEVICE Misc 8-27 lancets to it y of 00:00: check blood Medical glucose Branch LANCING 2019-0 Yes [id number] Use with [facility] DEVICE Misc 8-27 lancets to it y of 00:00: check blood Medical glucose Branch LANCING 2019-0 Yes [id number] Use with [facility] DEVICE Misc 8-27 lancets to it y of 00:00: check blood Medical glucose Branch LANCING 2019-0 Yes [id number] Use with [facility] DEVICE Misc 8-27 lancets to it y of 00:00: check blood [facility] LANCING 2019-0 Yes [id number] Use with [facility] DEVICE Misc 8-27 lancets to it y of 00:00: check blood [facility] glucose [facility] LANCING 2019-0 Yes [id number] Use with [facility] DEVICE Misc 8-27 lancets to it y of 00:00: check blood [facility] glucose [facility] LANCING 2019-0 Yes [id number] Use with [facility] DEVICE Misc 8-27 lancets to it y of 00:00: check blood [facility] glucose [facility] LANCING 2019-0 Yes [id number] Use with [facility] DEVICE Misc 8-27 lancets to it y of 00:00: check [place] blood [facility] glucose [facility] LANCING 2019-0 Yes [id number] Use with [facility] DEVICE Misc 8-27 lancets to it y of 00:00: check [place] blood [facility] LANCING 2019-0 Yes [id number] Use with [facility] DEVICE Misc 8-27 lancets to it y of 00:00: check [place] blood [facility] glucose [facility] LANCING 2019-0 Yes [id number] Use with [facility] DEVICE Misc 8-27 lancets to it y of 00:00: check [place] blood [facility] LANCING 2019-0 Yes [id number] Use with [facility] DEVICE Misc 8-27 lancets to it y of 00:00: check [place] blood [facility] glucose [facility] LANCING 2019-0 Yes [id number] Use with [facility] DEVICE Misc 8-27 lancets to it y of 00:00: check [place] blood [facility] LANCING 2019-0 Yes [id number] Use with [facility] DEVICE Misc 8-27 lancets to it y of 00:00: check [place] blood [facility] LANCING 2019-0 Yes [id number] Use with [facility] DEVICE Misc 8-27 lancets to it y of 00:00: check [place] blood [facility] glucose [facility] LANCING 2019-0 Yes [id number] Use with [facility] DEVICE Misc 8-27 lancets to it y of 00:00: check [place] blood [facility] glucose [facility] LANCING 2019-0 Yes [id number] Use with [facility] DEVICE Misc 8-27 lancets to it y of 00:00: check [place] blood [facility] LANCING 2019-0 Yes [id number] Use with [facility] DEVICE Misc 8-27 lancets to it y of 00:00: check blood [facility] LANCING 2019-0 Yes [id number] Use with [facility] DEVICE Misc 8-27 lancets to it y of 00:00: check blood [facility] LANCING 2019-0 Yes [id number] Use with [facility] DEVICE Misc 8-27 lancets to it y of 00:00: check blood [facility] glucose [facility] LANCING 2019-0 Yes [id number] Use with [facility] DEVICE Misc 8-27 lancets to it y of 00:00: check blood [facility] glucose [facility] LANCING 2019-0 Yes [id number] Use with [facility] DEVICE Misc 8-27 lancets to it y of 00:00: check blood [facility] LANCING 2019-0 Yes [id number] Use with [facility] DEVICE Misc 8-27 lancets to it y of 00:00: check blood [facility] LANCING 2019-0 Yes [id number] Use with [facility] DEVICE Misc 8-27 lancets to it y of 00:00: check [place] blood [facility] glucose [facility] LANCING 2019-0 Yes [id number] Use with [facility] DEVICE Misc 8-27 lancets to it y of 00:00: check blood [facility] glucose [facility] LANCING 2019-0 Yes [id number] Use with [facility] DEVICE Misc 8-27 lancets to it y of 00:00: check [place] blood [facility] LANCING 2019-0 Yes [id number] Use with [facility] DEVICE Misc 8-27 lancets to it y of 00:00: check [place] blood [facility] glucose [facility] LANCING 2019-0 Yes [id number] Use with [facility] DEVICE Misc 8-27 lancets to it y of 00:00: check [place] blood [facility] LANCING 2019-0 Yes [id number] Use with [facility] DEVICE Misc 8-27 lancets to it y of 00:00: check [place] blood [facility] LANCING 2019-0 Yes [id number] Use with [facility] DEVICE Misc 8-27 lancets to it y of 00:00: check [place] blood [facility] LANCING 2019-0 Yes [id number] Use with [facility] DEVICE Misc 8-27 lancets to it y of 00:00: check blood [facility] LANCING 2019-0 Yes [id number] Use with [facility] DEVICE Misc 8-27 lancets to it y of 00:00: check blood [facility] LANCING 2019-0 Yes [id number] Use with [facility] DEVICE Misc 8-27 lancets to it y of 00:00: check [place] blood [facility] LANCING 2019-0 Yes [id number] Use with [facility] DEVICE Misc 8-27 lancets to it y of 00:00: check [place] blood [facility] LANCING 2019-0 Yes [id number] Use with [facility] DEVICE Misc 8-27 lancets to it y of 00:00: check blood [facility] LANCING 2019-0 Yes [id number] Use with [facility] DEVICE Misc 8-27 lancets to it y of 00:00: check blood [facility] LANCING 2019-0 Yes [id number] Use with [facility] DEVICE Misc 8-27 lancets to it y of 00:00: check [place] blood [facility] LANCING 2019-0 Yes [id number] Use with [facility] DEVICE Misc 8-27 lancets to it y of 00:00: check [place] blood [facility] LANCING 2019-0 Yes [id number] Use with [facility] DEVICE Misc 8-27 lancets to it y of 00:00: check [place] blood [facility] LANCING 2019-0 Yes [id number] Use with [facility] DEVICE Misc 8-27 lancets to it y of 00:00: check [place] blood [facility] LANCING 2019-0 Yes [id number] Use with [facility] DEVICE Misc 8-27 lancets to it y of 00:00: check [place] blood [facility] LANCING 2019-0 Yes [id number] Use with [facility] DEVICE Misc 8-27 lancets to it y of 00:00: check [place] blood [facility] LANCING 2019-0 Yes [id number] Use with [facility] DEVICE Misc 8-27 lancets to it y of 00:00: check [place] blood [facility] LANCING 2019-0 Yes [id number] Use with [facility] DEVICE Misc 8-27 lancets to it y of 00:00: check blood [facility] LANCING 2019-0 Yes [id number] Use with [facility] DEVICE Misc 8-27 lancets to it y of 00:00: check blood [facility] LANCING 2019-0 Yes [id number] Use with [facility] DEVICE Misc 8-27 lancets to it y of 00:00: check blood [facility] LANCING 2019-0 Yes [id number] Use with [facility] DEVICE Misc 8-27 lancets to it y of 00:00: check blood [facility] LANCING 2019-0 Yes [id number] Use with [facility] DEVICE Misc 8-27 lancets to it y of 00:00: check blood [facility] LANCING 2019-0 Yes [id number] Use with [facility] DEVICE Misc 8-27 lancets to it y of 00:00: check blood [facility] LANCING 2019-0 Yes [id number] Use with [facility] DEVICE Misc 8-27 lancets to it y of 00:00: check [place] blood [facility] LANCING 2019-0 Yes [id number] Use with [facility] DEVICE Misc 8-27 lancets to it y of 00:00: check [place] blood [facility] LANCING 2019-0 Yes [id number] Use with [facility] DEVICE Misc 8-27 lancets to it y of 00:00: check blood [facility] LANCING 2019-0 Yes [id number] Use with [facility] DEVICE Misc 8-27 lancets to it y of 00:00: check [place] blood [facility] LANCING 2019-0 Yes [id number] Use with [facility] DEVICE Misc 8-27 lancets to it y of 00:00: check [place] blood [facility] LANCING 2019-0 Yes [id number] Use with [facility] DEVICE Misc 8-27 lancets to it y of 00:00: check [place] blood [facility] LANCING 2019-0 Yes [id number] Use with [facility] DEVICE Misc 8-27 lancets to it y of 00:00: check [place] blood [facility] LANCING 2019-0 Yes [id number] Use with [facility] DEVICE Misc 8-27 lancets to it y of 00:00: check [place] blood [facility] LANCING 2019-0 Yes [id number] Use with [facility] DEVICE Misc 8-27 lancets to it y of 00:00: check blood [facility] LANCING 2019-0 Yes [id number] Use with [facility] DEVICE Misc 8-27 lancets to it y of 00:00: check [place] blood [facility] LANCING 2019-0 Yes [id number] Use with [facility] DEVICE Misc 8-27 lancets to it y of 00:00: check [place] blood [facility] LANCING 2019-0 Yes [id number] Use with [facility] DEVICE Misc 8-27 lancets to it y of 00:00: check [place] blood [facility] LANCING 2019-0 Yes [id number] Use with [facility] DEVICE Misc 8-27 lancets to it y of 00:00: check [place] blood [facility] LANCING 2019-0 Yes [id number] Use with [facility] DEVICE Misc 8-27 lancets to it y of 00:00: check [place] blood [facility] LANCING 2019-0 Yes [id number] Use with [facility] DEVICE Misc 8-27 lancets to it y of 00:00: check [place] blood [facility] LANCING 2019-0 Yes [id number] Use with [facility] DEVICE Misc 8-27 lancets to it y of 00:00: check [place] blood [facility] LANCING 2019-0 Yes [id number] Use with [facility] DEVICE Misc 8-27 lancets to it y of 00:00: check [place] blood [facility] LANCING 2019-0 Yes [id number] Use with [facility] DEVICE Misc 8-27 lancets to it y of 00:00: check [place] blood [facility] LANCING 2019-0 Yes [id number] Use with [facility] DEVICE Misc 8-27 lancets to it y of 00:00: check [place] blood [facility] LANCING 2019-0 Yes [id number] Use with [facility] DEVICE Misc 8-27 lancets to it y of 00:00: check [place] blood [facility] LANCING 2019-0 Yes [id number] Use with [facility] DEVICE Misc 8-27 lancets to it y of 00:00: check [place] blood [facility] LANCING 2019-0 Yes [id number] Use with [facility] DEVICE Misc 8-27 lancets to it y of 00:00: check blood [facility] LANCING 2019-0 Yes [id number] Use with [facility] DEVICE Misc 8-27 lancets to it y of 00:00: check blood [facility] LANCING 2019-0 Yes [id number] Use with [facility] DEVICE Misc 8-27 lancets to it y of 00:00: check blood [facility] LANCING 2019-0 Yes [id number] Use with [facility] DEVICE Misc 8-27 lancets to it y of 00:00: check blood [facility] LANCING 2019-0 Yes [id number] Use with [facility] DEVICE Misc 8-27 lancets to it y of 00:00: check blood [facility] LANCING 2019-0 Yes [id number] Use with [facility] DEVICE Misc 8-27 lancets to it y of 00:00: check blood [facility] aspirin 81 2019-0 Yes [id number] 81mg Take 1 [facility] mg [facility] 4-23 tablet by [facility] of tablet 00:00: mouth [place] 00 daily. [facility] aspirin 81 2019-0 Yes [id number] 81mg Take 1 [facility] mg EC 4-23 tablet by it[facility] of tablet 00:00: mouth [place] 00 daily. [facility] aspirin 81 2019-0 Yes [id number] 81mg Take 1 [facility] mg EC 4-23 tablet by it[facility] of tablet 00:00: mouth [place] 00 daily. [facility] aspirin 81 2019-0 Yes [id number] 81mg Take 1 [facility] mg EC 4-23 tablet by ity of tablet 00:00: mouth [place] 00 daily. [facility] aspirin 81 2019-0 Yes [id number] 81mg Take 1 [facility] mg EC 4-23 tablet by it[facility] of tablet 00:00: mouth [place] 00 daily. [facility] aspirin 81 2019-0 Yes [id number] 81mg Take 1 [facility] mg EC 4-23 tablet by ity of tablet 00:00: mouth [place] 00 daily. [facility] aspirin 81 2019-0 Yes [id number] 81mg Take 1 [facility] mg EC 4-23 tablet by it[facility] of tablet 00:00: mouth [place] 00 daily. [facility] aspirin 81 2019-0 Yes [id number] 81mg Take 1 [facility] mg EC 4-23 tablet by [facility] of tablet 00:00: mouth [place] 00 daily. [facility] aspirin 81 2019-0 Yes [id number] 81mg Take 1 [facility] mg EC 4-23 tablet by ity of tablet 00:00: mouth [place] 00 daily. [facility] aspirin 81 2019-0 Yes [id number] 81mg Take 1 [facility] mg EC 4-23 tablet by ity of tablet 00:00: mouth [place] 00 daily. [facility] aspirin 81 2019-0 Yes [id number] 81mg Take 1 [facility] mg EC 4-23 tablet by ity of tablet 00:00: mouth [place] 00 daily. [facility] aspirin 81 2019-0 Yes [id number] 81mg Take 1 [facility] mg EC 4-23 tablet by ity of tablet 00:00: mouth [place] 00 daily. [facility] aspirin 81 2019-0 Yes [id number] 81mg Take 1 [facility] mg EC 4-23 tablet by ity of tablet 00:00: mouth [place] 00 daily. [facility] aspirin 81 2019-0 Yes [id number] 81mg Take 1 [facility] mg EC 4-23 tablet by ity of tablet 00:00: mouth [place] 00 daily. [facility] aspirin 81 2019-0 Yes [id number] 81mg Take 1 [facility] mg EC 4-23 tablet by [facility]y of tablet 00:00: mouth [place] 00 daily. [facility] aspirin 81 2019-0 Yes [id number] 81mg Take 1 [facility] mg EC 4-23 tablet by it[facility] of tablet 00:00: mouth [place] 00 daily. [facility] aspirin 81 2019-0 Yes [id number] 81mg Take 1 [facility] mg EC 4-23 tablet by ity of tablet 00:00: mouth [place] 00 daily. [facility] aspirin 81 2019-0 Yes [id number] 81mg Take 1 [facility] mg EC 4-23 tablet by ity of tablet 00:00: mouth [place] 00 daily. [facility] aspirin 81 2019-0 Yes [id number] 81mg Take 1 [facility] mg EC 4-23 tablet by ity of tablet 00:00: mouth [place] 00 daily. [facility] aspirin 81 2019-0 Yes [id number] 81mg Take 1 [facility] mg EC 4-23 tablet by ity of tablet 00:00: mouth [place] 00 daily. [facility] aspirin 81 2019-0 Yes [id number] 81mg Take 1 [facility] mg EC 4-23 tablet by ity of tablet 00:00: mouth [place] 00 daily. [facility] aspirin 81 2019-0 Yes [id number] 81mg Take 1 [facility] mg EC 4-23 tablet by ity of tablet 00:00: mouth [place] 00 daily. [facility] aspirin 81 2019-0 Yes [id number] 81mg Take 1 [facility] mg EC 4-23 tablet by ity of tablet 00:00: mouth [place] 00 daily. [facility] aspirin 81 2019-0 Yes [id number] 81mg Take 1 [facility] mg EC 4-23 tablet by ity of tablet 00:00: mouth [place] 00 daily. [facility] aspirin 81 2019-0 Yes [id number] 81mg Take 1 [facility] mg EC 4-23 tablet by ity of tablet 00:00: mouth [place] 00 daily. [facility] aspirin 81 2019-0 Yes [id number] 81mg Take 1 [facility] mg EC 4-23 tablet by ity of tablet 00:00: mouth [place] 00 daily. [facility] aspirin 81 2019-0 Yes [id number] 81mg Take 1 [facility] mg EC 4-23 tablet by ity of tablet 00:00: mouth [place] 00 daily. [facility] aspirin 81 2019-0 Yes [id number] 81mg Take 1 [facility] mg EC 4-23 tablet by ity of tablet 00:00: mouth [place] 00 daily. [facility] aspirin 81 2019-0 Yes [id number] 81mg Take 1 [facility] mg EC 4-23 tablet by ity of tablet 00:00: mouth [place] 00 daily. [facility] aspirin 81 2019-0 Yes [id number] 81mg Take 1 [facility] mg EC 4-23 tablet by ity of tablet 00:00: mouth [place] 00 daily. [facility] aspirin 81 2019-0 Yes [id number] 81mg Take 1 [facility] mg EC 4-23 tablet by ity of tablet 00:00: mouth [place] 00 daily. [facility] aspirin 81 2019-0 Yes [id number] 81mg Take 1 [facility] mg EC 4-23 tablet by ity of tablet 00:00: mouth [place] 00 daily. [facility] aspirin 81 2019-0 Yes [id number] 81mg Take 1 [facility] mg EC 4-23 tablet by ity of tablet 00:00: mouth [place] 00 daily. [facility] aspirin 81 2019-0 Yes [id number] 81mg Take 1 [facility] mg EC 4-23 tablet by ity of tablet 00:00: mouth [place] 00 daily. [facility] aspirin 81 2019-0 Yes [id number] 81mg Take 1 [facility] mg EC 4-23 tablet by ity of tablet 00:00: mouth [place] 00 daily. [facility] aspirin 81 2019-0 Yes [id number] 81mg Take 1 [facility] mg EC 4-23 tablet by ity of tablet 00:00: mouth [place] 00 daily. [facility] aspirin 81 2019-0 Yes [id number] 81mg Take 1 [facility] mg EC 4-23 tablet by ity of tablet 00:00: mouth [place] 00 daily. [facility] aspirin 81 2019-0 Yes [id number] 81mg Take 1 [facility] mg EC 4-23 tablet by ity of tablet 00:00: mouth [place] 00 daily. [facility] aspirin 81 2019-0 Yes [id number] 81mg Take 1 [facility] mg EC 4-23 tablet by ity of tablet 00:00: mouth [place] 00 daily. [facility] aspirin 81 2019-0 Yes [id number] 81mg Take 1 [facility] mg EC 4-23 tablet by ity of tablet 00:00: mouth [place] 00 daily. [facility] aspirin 81 2019-0 Yes [id number] 81mg Take 1 [facility] mg EC 4-23 tablet by ity of tablet 00:00: mouth [place] 00 daily. [facility] aspirin 81 2019-0 Yes [id number] 81mg Take 1 [facility] mg EC 4-23 tablet by ity of tablet 00:00: mouth [place] 00 daily. [facility] aspirin 81 2019-0 Yes [id number] 81mg Take 1 [facility] mg EC 4-23 tablet by ity of tablet 00:00: mouth [place] 00 daily. [facility] aspirin 81 2019-0 Yes [id number] 81mg Take 1 [facility] mg EC 4-23 tablet by ity of tablet 00:00: mouth [place] 00 daily. [facility] aspirin 81 2019-0 Yes [id number] 81mg Take 1 [facility] mg EC 4-23 tablet by it[facility] of tablet 00:00: mouth [place] 00 daily. [facility] aspirin 81 2019-0 Yes [id number] 81mg Take 1 [facility] mg EC 4-23 tablet by ity of tablet 00:00: mouth [place] 00 daily. [facility] aspirin 81 2019-0 Yes [id number] 81mg Take 1 [facility] mg EC 4-23 tablet by ity of tablet 00:00: mouth [place] 00 daily. [facility] aspirin 81 2019-0 Yes [id number] 81mg Take 1 [facility] mg EC 4-23 tablet by ity of tablet 00:00: mouth [place] 00 daily. [facility] aspirin 81 2019-0 Yes [id number] 81mg Take 1 [facility] mg EC 4-23 tablet by [facility]y of tablet 00:00: mouth [place] 00 daily. [facility] aspirin 81 2019-0 Yes [id number] 81mg Take 1 [facility] mg EC 4-23 tablet by ity of tablet 00:00: mouth [place] 00 daily. [facility] aspirin 81 2019-0 Yes [id number] 81mg Take 1 [facility] mg EC 4-23 tablet by it[facility] of tablet 00:00: mouth [place] 00 daily. [facility] aspirin 81 2019-0 Yes [id number] 81mg Take 1 [facility] mg EC 4-23 tablet by ity of tablet 00:00: mouth [place] 00 daily. [facility] aspirin 81 2019-0 Yes [id number] 81mg Take 1 [facility] mg EC 4-23 tablet by ity of tablet 00:00: mouth [place] 00 daily. [facility] aspirin 81 2019-0 Yes [id number] 81mg Take 1 [facility] mg EC 4-23 tablet by ity of tablet 00:00: mouth [place] 00 daily. [facility] aspirin 81 2019-0 Yes [id number] 81mg Take 1 [facility] mg EC 4-23 tablet by ity of tablet 00:00: mouth [place] 00 daily. [facility] aspirin 81 2019-0 Yes [id number] 81mg Take 1 [facility] mg EC 4-23 tablet by ity of tablet 00:00: mouth [place] 00 daily. [facility] aspirin 81 2019-0 Yes [id number] 81mg Take 1 [facility] mg EC 4-23 tablet by ity of tablet 00:00: mouth [place] 00 daily. [facility] aspirin 81 2019-0 Yes [id number] 81mg Take 1 [facility] mg EC 4-23 tablet by ity of tablet 00:00: mouth [place] 00 daily. [facility] aspirin 81 2019-0 Yes [id number] 81mg Take 1 [facility] mg EC 4-23 tablet by ity of tablet 00:00: mouth [place] 00 daily. [facility] aspirin 81 2019-0 Yes [id number] 81mg Take 1 [facility] mg EC 4-23 tablet by ity of tablet 00:00: mouth [place] 00 daily. [facility] aspirin 81 2019-0 Yes [id number] 81mg Take 1 [facility] mg EC 4-23 tablet by ity of tablet 00:00: mouth [place] 00 daily. [facility] aspirin 81 2019-0 Yes [id number] 81mg Take 1 [facility] mg EC 4-23 tablet by ity of tablet 00:00: mouth [place] 00 daily. [facility] aspirin 81 2019-0 Yes [id number] 81mg Take 1 [facility] mg EC 4-23 tablet by ity of tablet 00:00: mouth [place] 00 daily. [facility] aspirin 81 2019-0 Yes [id number] 81mg Take 1 [facility] mg EC 4-23 tablet by ity of tablet 00:00: mouth [place] 00 daily. [facility] aspirin 81 2019-0 Yes [id number] 81mg Take 1 [facility] mg EC 4-23 tablet by it[facility] of tablet 00:00: mouth [place] 00 daily. [facility] aspirin 81 2019-0 Yes [id number] 81mg Take 1 [facility] mg EC 4-23 tablet by ity of tablet 00:00: mouth [place] 00 daily. [facility] aspirin 81 2019-0 Yes [id number] 81mg Take 1 [facility] mg EC 4-23 tablet by ity of tablet 00:00: mouth [place] 00 daily. [facility] aspirin 81 2019-0 Yes [id number] 81mg Take 1 [facility] mg EC 4-23 tablet by ity of tablet 00:00: mouth [place] 00 daily. [facility] aspirin 81 2019-0 Yes [id number] 81mg Take 1 [facility] mg EC 4-23 tablet by ity of tablet 00:00: mouth [place] 00 daily. [facility] aspirin 81 2019-0 Yes [id number] 81mg Take 1 [facility] mg EC 4-23 tablet by ity of tablet 00:00: mouth [place] 00 daily. [facility] aspirin 81 2019-0 Yes [id number] 81mg Take 1 [facility] mg EC 4-23 tablet by ity of tablet 00:00: mouth [place] 00 daily. [facility] aspirin 81 2019-0 Yes [id number] 81mg Take 1 [facility] mg EC 4-23 tablet by ity of tablet 00:00: mouth [place] 00 daily. [facility] aspirin 81 2019-0 Yes [id number] 81mg Take 1 [facility] mg EC 4-23 tablet by ity of tablet 00:00: mouth [place] 00 daily. [facility] aspirin 81 2019-0 Yes [id number] 81mg Take 1 [facility] mg EC 4-23 tablet by ity of tablet 00:00: mouth [place] 00 daily. [facility] aspirin 81 2019-0 Yes [id number] 81mg Take 1 [facility] mg EC 4-23 tablet by ity of tablet 00:00: mouth [place] 00 daily. [facility] aspirin 81 2019-0 Yes [id number] 81mg Take 1 [facility] mg EC 4-23 tablet by ity of tablet 00:00: mouth [place] 00 daily. [facility] aspirin 81 2019-0 Yes [id number] 81mg Take 1 [facility] mg EC 4-23 tablet by ity of tablet 00:00: mouth [place] 00 daily. [facility] aspirin 81 2019-0 Yes [id number] 81mg Take 1 [facility] mg EC 4-23 tablet by ity of tablet 00:00: mouth [place] 00 daily. [facility] aspirin 81 2019-0 Yes [id number] 81mg Take 1 [facility] mg EC 4-23 tablet by ity of tablet 00:00: mouth [place] 00 daily. [facility] aspirin 81 2019-0 Yes [id number] 81mg Take 1 [facility] mg EC 4-23 tablet by ity of tablet 00:00: mouth [place] 00 daily. [facility] aspirin 81 2019-0 Yes [id number] 81mg Take 1 [facility] mg EC 4-23 tablet by ity of tablet 00:00: mouth [place] 00 daily. [facility] aspirin 81 2019-0 Yes [id number] 81mg Take 1 [facility] mg EC 4-23 tablet by ity of tablet 00:00: mouth [place] 00 daily. [facility] aspirin 81 2019-0 Yes [id number] 81mg Take 1 [facility] mg EC 4-23 tablet by ity of tablet 00:00: mouth [place] 00 daily. [facility] aspirin 81 2019-0 Yes [id number] 81mg Take 1 [facility] mg EC 4-23 tablet by ity of tablet 00:00: mouth [place] 00 daily. [facility] Lisinopril Lisinopril Yes MUNACHI QD TAKE 1 UT 5 MG Oral [...] ans 00 HOURS DAILY. MetFORMIN MetFORMIN Yes COLEEN TAKE 2 UT HCl - 500 HCl - 500 7-05 OKPALA TABLETS BY [facility] MG Oral MG Oral 15:48: N.P. MOUTH ans Tablet Tablet 22 DAILY FLUoxetine FLUoxetine Yes COLEEN TAKE 1 UT HCl - 20 MG HCl - 20 MG 6-23 OKPALA CAPSULE BY [facility] Oral Oral 00:00: N.P. MOUTH ans Capsule Capsule 00 EVERY MORNING AmLODIPine AmLODIPine Yes COLEEN TAKE 1 UT Besylate 10 Besylate 10 [...] PO, QPM, # l Tablet 14:08: 30 Blessing wilson nn [Topamax] 00 0 Refill(s) atorvastati Yes 80 mg = 1 M emoria n 80 mg 6-27 tab, PO, l oral tablet 14:08: Bedtime, # Srikanth 00 30 tab, 0 Refill(s) Lisinopril No Notes: Memor ia 03-19 (Same as: l 14:00: Prinivil Srikanth 00 Zestril) Baclofen No Notes: Memoria 03-19 [...] 14:34:00 Depakote No 500 mg, Memori a 03-18 Route: IV, l 19:34: ONCE, Dosing Weight 77.727, kg, Start date: 03/18/14 14:34:00, Stop date: 03/18/14 14:34:00 Solu-Medrol No Notes: Jose Luis dennis - (Same l 19:33: as:Solu-ME DROL, A-Methapre d) Phenergan No Notes: Do Mem oria 03-18 not give l 19:33: IV push. (Same [...] tab, PO, l mg oral 15:16: Daily [place] tablet 00 lisinopril Yes 5 mg = 1 Mem oria 5 mg oral 6-26 tab, PO, l tablet 15:16: Daily Metformin Yes 500 mg = 1 Me moria hydrochlori 6-26 tab, PO, l de 500 MG 15:15: BID Sirkanth Oral Tablet 00 Metoclopram Yes Special Mem oria rochelle 5 MG 6-26 Instructio l Oral Tablet 15:13: ns: before meals omeprazole Yes 40 mg = 1 Me moria 40 mg oral 6-26 cap, PO, l delayed 15:12: Daily, as Blessing nn release 00 needed capsule Saline No Notes: Memoria Flush 0.9% 03-18 (Same as: l 14:00: BD [place] Posiflush) heparin, No Notes: Memoria porcine 03-18 porcine l 13:00: heparin [place] 00 Lovenox No Notes: Memoria 03-18 (Same as: l 13:00: Lovenox) [place] 00 Motrin No 600 mg, Memoria 03-18 Route: PO, l 10:48: Drug form: [place] TAB, ONCE, Dosing Weight 77.727, kg, Priority: STAT, Start date: 03/18/14 5:48:00, Stop date: 03/18/14 5:48:00 atorvastati No Notes: Jose Luis dennis n 03-18 Same as l 09:47: Lipitor [place] 00 Saline No Notes: Memoria Flush 0.9% 03-18 (Same as: l 09:42: BD Srikanth Posiflush) Ibuprofen No Notes: Memori a 03-18 [...] 4 gm/day. Srikanth 00 (Same as: Tylenol) Cardene 40 No [...] MG 4-11 cap, PO, l Oral 16:05: [id number], # Srikanth Capsule 00 14 cap, 0 [Macrobid] Refill(s) [...] tab, PO, l tablet 16:10: Daily, # [place] 00 30 tab, 0 Refill(s) pantoprazol Yes 40 mg = 1 M emoria e 40 mg 4-10 tab, PO, l oral 16:10: Before Srikanth enteric 00 Dinner, # coated 30 tab, 0 tablet Refill(s) Tylenol No 650 mg, Memoria 4-10 Route: PO, l 06:31: Drug form: TAB, Q6H, Dosing Weight 81.818, kg, PRN Pain, Start date: 12/31/13 1:31:00, Duration: 30 day, Stop date: 01/30/14 1:30:00 Docusate No Notes: Memoria 12-30 (Same as: l 13:00: Colace) (Do Not Crush) sennosides, No Notes: Jose Luis dennis ALF 8.6 MG 12-30 (Same as: l Oral Tablet 02:00: Senokot) [facility] Baclofen No Notes: Memoria 12-29 (Same As: l 21:00: Lioresal) insulin No 60 units) Jose Luis dennis regular 100 12-29 Stable for l units/mL 16:16: 28 days at [address] temper[place] e Expires in days from ____Date Dextrose No 6.25 gm, Memor ia 50% Syringe 08 12.5 mL, l 16:16: Route: IVP, Drug Form: INJ, Dosing Weight 81.818, kg, PRN, PRN Abnormal Lab Result, Start date: 12/29/13 11:16:00, Duration: 30 day, Stop date: 01/28/14 11:15:00 Dextrose No 25 gm, 50 Jose Luis dennis 50% Syringe 4-08 mL, Route: l 16:15: IVP, Drug Form: [...] Memoria 12-28 (Same as: l 13:56: Benadryl) Ciprofloxac No Notes: Jose Luis dennis in 3 MG/ML 4-07 (Same As: l / 01:00: Ciprodex) Srikanth Dexamethaso 00 ne 1 MG/ML Otic Suspension [Ciprodex] Protonix No Notes: Memoria 4-06 Tablet l 21:30: should not [place] 00 be chewed or crushed. (Same as: [...] e 12-27 Tablet l 11:30: should not [place] 00 be chewed or crushed. (Same as: Protonix) Protonix No 40 mg, Memoria 12-26 Route: l 12:19: IVP, Srikanth 00 Before Breakfast, Dosing Weight 81.818, kg, Start date: 12/26/13 7:19:00, Duration: 30 day, Stop date: 01/25/14 6:30:00 Lovenox No Notes: Memoria 4-04 (Same as: l 19:00: Lovenox) [place] Lovenox No Notes: Memoria 4-04 (Same as: l 16:00: Lovenox) Srikanth 00 docusate No Notes: Memoria -04 (Same as: l 15:32: Colace) Acetaminoph No Notes: Do M emoria en 12-25 not exceed l 13:00: 4 gm/day. Srikanth 00 (Same as: Tylenol) docusate No Notes: [...] after 12 Transdermal hours Patch [Lidoderm] Remove No 2 patch, Memor ia lidocaine 12-24 [...] before applicatio n of new patch" Remove No 1 patch, Memor ia lidocaine 12-23 [...] Memoria 4- (Same As: l 21:00: Lioresal) [place] Baclofen No Notes: Memoria 4- (Same As: [...] (Same as: l 18:15: Citrate of Srikanth 00 Magnesia) Magnesium No Notes: Memori a Oxide 3-24 (Same as: l 15:26: Mag-Ox Srikanth 00 400) Magnesium oxide 190os=006b g elemental magnesium Dose=____m g magnesium oxide (___mg elemental magnesium) heparin No Notes: Memoria 3-20 porcine l 23:00: heparin simethicone No 0 Memori a 80 mg oral 3-20 Refill(s) l tablet 22:47: [place] Buspirone No 0 Memoria 3-20 Refill(s) l 22:47: Srikanth 00 Namenda No 0 Memoria 3-20 Refill(s) l 22:47: Srikanth Metoclopram No Notes: Jose Luis dennis rochelle 10 MG 3-20 (Same as: l Oral Tablet 21:30: Reglan) Her stone [Reglan] 00 Take 30 min before meals Keflex No Notes: Memoria 3-17 Take on l 19:00: empty Srikanth stomach. (Same As: Keflex) NS (Bolus) No Special Jose Luis dennis IV 500 mL 3-15 Instructio l 14:39: ns: Bolus [place] 00 Dose NS (Bolus) No Special Jose Luis dennis IV 500 mL 3-15 Instructio l 13:49: ns: Bolus Dose Lisinopril No Notes: Memor ia 3-15 (Same as: l 13:00: Prinivil, Zestril) Keflex No Notes: Memoria 3-15 Take on l 05:00: empty [place] 00 stomach. (Same As: Keflex) Keflex No 500 mg, Memoria 3-14 Route: PO, l 21:00: Q8H, [place] Dosing Weight 81.818, kg, Start date: 12/04/13 [...] No 1,000 mL, Memori a saline 0.9% 314 Rate: 75 l IV 1000 mL 16:06: ml/hr, Blessing nn Infuse over: 13.3 hr, Route: IV, Dosing Weight 81.818 kg, Total Volume: 1,000, Start date: 12/04/13 11:06:00, Duration: 30 day, Stop date: 01/03/14 11:05:00 Bisacodyl No Notes: Memori a 10 MG Enema 3-13 (Same As: l 19:40: Dulcolax, [place] 00 Bisco-Lax) Metformin No Notes: Memori a 3-13 (Same as: l 01:00: Glucophage ) Take with meal magnesium No Notes: Memori a citrate 3-12 (Same as: l 17:21: Citrate of [place]) pantoprazol No Notes: Jose Luis dennis e 3-11 Tablet l 21:30: should not [place] 00 be chewed or crushed. (Same as: Protonix) Rocephin No Notes: Memoria 3-11 (Same As: l 19:00: Rocephin). 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 Stable for l H 13:00: 28 days at Srikanth 00 room temperatur e Expires in days from ____Date Dextrose No 12.5 gm, Memor ia 50% Syringe 3-11 25 mL, l 11:53: Route: [place] 00 IVP, Drug Form: INJ, Dosing Weight [...] Colace) sennosides, No Notes: Jose Luis dennis ALF 8.6 MG 3-11 (Same as: l Oral Tablet 02:00: [facility]) [facility] Sal[facility] No Notes: Memoria Flush 0.9% 3-11 (Same as: l 00:08: BD Posiflush) zolpidem No 5 mg, Memoria 3-11 Route: PO, l 00:08: Drug form: Srikanth 00 TAB, Bedtime, Dosing Weight 81.818, kg, PRN Insomnia, Start date: 11/30/13 19:08:00, Duration: 30 day, Stop date: 04/09/14 19:07:00 Milk of No Notes: Memoria Magnesia 3-11 (Same as: l 00:08: Milk of Magnwaldemar, MOM) Bisacodyl No Notes: Memori a 3-11 [...] Route: l 22:00: IVPB, Drug form: PDR/INJ, [id number], Dosing Weight 84.545, kg, Start date: 11/30/13 17:00:00, Duration: 30 day, Stop date: 12/29/13 17:00:00 Flexeril No Notes: Memoria 3-10 (Same As: l 21:42: Flexeril) lisinopril Yes 10 mg = 1 Me moria 10 mg oral 3-10 tab, PO, l tablet 18:30: Daily, # [place] 00 90 tab, 0 Refill(s) insulin Yes 10 unit = Memor ia isophane 3-10 0.1 mL, l human 18:30: SUB-Q, [place] recombinant 00 BID, # 30 100 mL, 0 units/mL Refill(s) subcutaneou s injection ceftriaxone Yes = 1 gm, Mem oria 1 g 3-10 IVPB, l injection 18:30: [id number], # He rmann 00 4 inj, 0 Refill(s) pneumococca No 0.5 ml, Mem oria l capsular 310 Route: IM, l polysacchar 18:00: Drug Form: [...] sennosides, No 8.6 mg, 1 M emoria ALF 3-10 tab, l 14:00: Route: PO, Drug Form: TAB, Dosing Weight 84.545, kg, Daily, Start date: 11/30/13 9:00:00, Duration: 30 day, Stop date: 12/29/13 9:00:00(Sa co as: Senokot) Rocephin No 1 gm, Memoria 11-29 Route: l 19:00: IVPB, Drug form: PDR/INJ, [id number], Dosing Weight 84.545, kg, Start date: 11/29/13 14:00:00, Duration: 30 day, Stop date: 12/28/13 14:00:00(S elida As: Rocephin). Use with 100ml NS mini-bag PLUS and infuse over 30 min Fleet Enema No 133 ml, Mem oria 11-29 Route: CT, l 18:12: Drug Form: MORENITA, Dosing Weight 84.545, kg, ONCE, Start date: 11/29/13 13:12:00, Stop date: 11/29/13 13:12:00 Flexeril No 10 mg, 1 Memor ia -09 tab, l 18:02: Route: PO, Drug form: TAB, TID, Dosing Weight 84.545, kg, PRN Spasm, Start date: 11/29/13 13:02:00, Duration: 30 day, Stop date: 12/29/13 13:01:00(S elida As: Flexeril) Lisinopril 2013-0 No 10 mg, 1 Mem oria 3-09 tab, l 14:00: Route: PO, Srikanth 00 Drug form: TAB, Daily, Dosing Weight 84.545, kg, Start date: 11/29/13 9:00:00, Duration: 30 day, Stop date: 12/28/13 9:00:00([facility] as: Prinivil, Zestril) Labetalol [...] 10:13:00(S elida as: Prinivil, Zestril) Atenolol 25 2013- No 25 mg = 1 M emoria MG Oral 3-08 tab, PO, l Tablet 01:03: Daily, # [place] 00 30 tab, 0 Refill(s) heparin, 0 No 5,000 Memoria porcine 3-07 unit, 1 l 22:00: mL, Route: SUB-Q, Drug form: INJ, Q8H, Dosing Weight [...] NPH 2013-0 No 10 unit, Memoria Insulin, 11-27 Route: l Pork 13:30: SUB-Q, [place] 00 Before Breakfast, Dosing Weight 84.545, kg, Start date: 11/27/13 7:30:00, Duration: 30 day, Stop date: 12/26/13 7:30:00 NPH 2013- No 10 unit, Memoria Insulin, 11-27 Route: l Pork 03:00: SUB-Q, [place] 00 Bedtime, Dosing Weight 84.545, kg, Start [...] 2013- No 10 unit, Jose Luis dennis 11-26 0.1 mL, l 23:00: Route: Srikanth 00 [...] ia 3-06 tab, l 22:30: Route: PO, [place] 00 Drug form: ECTAB, Before Dinner, Start date: 11/26/13 16:30:00, Duration: 30 day, Stop date: 12/25/13 16:30:00Ta blet should not be chewed or crushed. (Same as: Protonix) Captopril 2013-0 No 25 mg, Memori a 306 Route: PO, l 22:00: Drug form: [place] 00 TAB, Q8H, Dosing Weight 84.545, kg, Start date: 11/26/13 16:00:00, Duration: 30 day, Stop date: 12/26/13 8:00:00 omeprazole 2013- Yes 40 mg = 1 Me moria 40 mg oral 3-06 cap, PO, l delayed 16:26: Daily, # Gerardo n release 00 30 cap, 0 capsule Refill(s) Influenza 2013-0 No 0.5 mL, Memor ia Virus 3 Route: IM, l Vaccine, 15:00: Drug Form: Her stone Inactivated 00 SUSP, A-[place]- Daily, Start (H3N2)-like date: virus 11/26/13 (A[place]- 9:00:00, [place] [facility] [place] [id number][place] 23:59:00(S strain / elida as: Influenza Fluzone Virus Quadrivale Vaccine, nt) Inactivated A-[place]- -2006, IVR-148 (H1N1) strain / Influenza Virus Vaccine, Inactivated , B-[place]--lik Saline 2013-0 No 5 ml, Memoria Flush 0.9% 3 Route: l 15:00: IVP, Drug Srikanth 00 Form: INJ, Dosing Weight 84.545, kg, Q12H, Start date: 11/26/13 9:00:00, Duration: 30 day, Stop date: 12/25/13 21:00:00(S elida as: BD Posiflush) Labetalol 2014-0 No 200 mg, 1 Mem oria 3-06 tab, l 15:00: Route: PO, Drug form: TAB, Q12H, Dosing Weight 84.545, [...] Luis dennis 3-06 supp, l 14:13: Route: CT, Drug form: SUPP, Q24H, Dosing Weight 84.545, kg, PRN Constipati on, Start date: 11/26/13 8:13:00, Duration: 30 day, Stop date: 12/26/13 8:12:00(Sa me As: Dulcolax, Bisco-Lax) Nicardipine 2013-0 No 40 mg, 200 Memoria 3-06 mL, Rate: l 14:13: Start at 5 [place] 00 mgTitrate to maintain SBP 110-150 mmHg., [...] Syringe 3-06 25 mL, l 13:31: Route: [place] 00 IVP, Drug Form: INJ, Dosing Weight [...] 11/26/13 7:31:00, Duration: 30 day, Stop date: 04/05/14 8:30:00 60 units) Stable for 28 days at room temperatur e Expires in days from ____Date Immunizations Ordered Immunization Filled Immunization Date Status Commen ts Source Name Name Pneumococcal Vaccine, 2023-02-02 Completed Cyril sey Seybold - Conjugate 20 00:00:00 External Tdap- (Boostrix, 2023-02-02 Completed Melinda S eybold - Adacel) 00:00:00 External Shingles IM 2023-02-02 Completed Melinda Seybol d - (Shingrix) 00:00:00 External Pneumococcal Vaccine, 2023-02-02 Completed Cyril sey Seybold - Conjugate 20 00:00:00 External Tdap- (Boostrix, 2023-02-02 Completed Melinda Urbina eybold - Adacel) 00:00:00 External Shingles IM 2023-02-02 Completed Melinda Seybol d - (Shingrix) 00:00:00 External Pneumococcal Vaccine, 2023-02-02 Completed Cyril sey Seybold - Conjugate 20 00:00:00 External Tdap- (Boostrix, 2023-02-02 Completed Melinda Urbina eybold - Adacel) 00:00:00 External Shingles IM 2023-02-02 Completed Melinda Seybol d - (Shingrix) 00:00:00 External Pneumococcal Vaccine, 2023-02-02 Completed Cyril sey Seybold - Conjugate 20 00:00:00 External Tdap- (Boostrix, 2023-02-02 Completed Melinda Urbina eybold - Adacel) 00:00:00 External Shingles IM 2023-02-02 Completed Melinda Seybol d - (Shingrix) 00:00:00 External Pneumococcal Vaccine, 2023-02-02 Completed Cyril sey Seybold - Conjugate 20 00:00:00 External Tdap- (Boostrix, 2023-02-02 Completed Melinda S eybold - Adacel) 00:00:00 External Shingles IM 2023-02-02 Completed Melinda Seybol d - (Shingrix) 00:00:00 External Pneumococcal Vaccine, 2023-02-02 Completed Cyril sey Seybold - Conjugate 20 00:00:00 External Tdap- (Boostrix, 2023-02-02 Completed Melinda Urbina eybold - Adacel) 00:00:00 External Shingles IM 2023-02-02 Completed Melinda Liao d - (Shingrix) 00:00:00 External Influenza, 2022-07-20 Completed Melinda Snyderold - Injectable, [...] Mdck, 00:00:00 Externa l Preservative Free, Quadrivalt influenza, 2022-07-20 Completed Melinda Seybold - Injectable, Mdck, 00:00:00 Externa l Preservative Free, Quadrivalt influenza, 2022-07-20 Completed Melinda Seybold - Injectable, Mdck, 00:00:00 Externa l Preservative Free, Quadrivalt influenza, 2022-07-20 Completed Melinda Seybold - Injectable, Mdck, [...] Completed Unive [facility] of PFIZER VACCINE 00:00:00 [facility] SARS-COV-2 COVID-19 2020-12-30 Completed [facility] of PFIZER VACCINE 00:00:00 [facility] SARS-COV-2 COVID-19 2020-12-30 Completed [facility]ive [facility] of PFIZER VACCINE 00:00:00 [facility] SARS-COV-2 COVID-19 2020-12-30 Completed [facility]ive [facility] of PFIZER VACCINE 00:00:00 [facility] SARS-COV-2 COVID-19 2020-12-30 Completed [facility]ive [facility] of PFIZER VACCINE 00:00:00 [facility] SARS-COV-2 COVID-19 2020-12-30 Completed [facility]ive [facility] of PFIZER VACCINE 00:00:00 [facility] SARS-COV-2 COVID-19 2020-12-30 Completed [facility] of PFIZER VACCINE 00:00:00 [facility] SARS-COV-2 COVID-19 2020-12-30 Completed [facility]ive [facility] of PFIZER VACCINE 00:00:00 [facility] SARS-COV-2 COVID-19 2020-12-30 Completed [facility]ive [facility] of PFIZER VACCINE 00:00:00 [facility] SARS-COV-2 COVID-19 2020-12-30 Completed [facility]ive [facility] of PFIZER VACCINE 00:00:00 [facility] SARS-COV-2 COVID-19 2020-12-30 Completed [facility]ive rs[facility] of PFIZER VACCINE 00:00:00 [facility] SARS-COV-2 COVID-19 2020-12-30 Completed Unive rs[facility] of PFIZER VACCINE 00:00:00 [facility] SARS-COV-2 COVID-19 2020-12-30 Completed [facility] of PFIZER VACCINE 00:00:00 [facility] SARS-COV-2 COVID-19 2020-12-30 Completed [facility]ive [facility] of PFIZER VACCINE 00:00:00 [facility] SARS-COV-2 COVID-19 2020-12-30 Completed [facility]ive [facility] of PFIZER VACCINE 00:00:00 [facility] SARS-COV-2 COVID-19 2020-12-30 Completed [facility]ive [facility] of PFIZER VACCINE 00:00:00 [facility] SARS-COV-2 COVID-19 2020-12-30 Completed [facility]ive [facility] of PFIZER VACCINE 00:00:00 [facility] SARS-COV-2 COVID-19 2020-12-30 Completed Unive rs[facility] of PFIZER VACCINE 00:00:00 [facility] SARS-COV-2 COVID-19 2020-12-30 Completed Unive rs[facility] of PFIZER VACCINE 00:00:00 [facility] SARS-COV-2 COVID-19 2020-12-30 Completed [facility]ive [facility] of PFIZER VACCINE 00:00:00 [facility] SARS-COV-2 COVID-19 2020-12-30 Completed [facility] of PFIZER VACCINE 00:00:00 [facility] SARS-COV-2 COVID-19 2020-12-30 Completed [facility] of PFIZER VACCINE 00:00:00 [facility] SARS-COV-2 COVID-19 2020-12-30 Completed [facility] of PFIZER VACCINE 00:00:00 [facility] SARS-COV-2 COVID-19 2020-12-30 Completed [facility]ive [facility] of PFIZER VACCINE 00:00:00 [facility] SARS-COV-2 COVID-19 2020-12-30 Completed [facility] of PFIZER VACCINE 00:00:00 [facility] SARS-COV-2 COVID-19 2020-12-30 Completed [facility] of PFIZER VACCINE 00:00:00 [facility] SARS-COV-2 COVID-19 2020-12-30 Completed [facility] of PFIZER VACCINE 00:00:00 [facility] SARS-COV-2 COVID-19 2020-12-30 Completed [facility] of PFIZER VACCINE 00:00:00 [facility] SARS-COV-2 COVID-19 2020-12-30 Completed [facility] of PFIZER VACCINE 00:00:00 [facility] SARS-COV-2 COVID-19 2020-12-30 Completed [facility] of PFIZER VACCINE 00:00:00 [facility] SARS-COV-2 COVID-19 2020-12-30 Completed [facility] of PFIZER VACCINE 00:00:00 [facility] SARS-COV-2 COVID-19 2020-12-30 Completed [facility] of PFIZER VACCINE 00:00:00 [facility] SARS-COV-2 COVID-19 2020-12-30 Completed [facility] of PFIZER VACCINE 00:00:00 [facility] SARS-COV-2 COVID-19 2020-12-30 Completed [facility]ive [facility] of PFIZER VACCINE 00:00:00 [facility] SARS-COV-2 COVID-19 2020-12-30 Completed [facility] of PFIZER VACCINE 00:00:00 [facility] SARS-COV-2 COVID-19 2020-12-30 Completed [facility] of PFIZER VACCINE 00:00:00 [facility] SARS-COV-2 COVID-19 2020-12-30 Completed [facility] of PFIZER VACCINE 00:00:00 [facility] SARS-COV-2 COVID-19 2020-12-30 Completed [facility]ive [facility] of PFIZER VACCINE 00:00:00 [facility] SARS-COV-2 COVID-19 2020-12-30 Completed [facility]ive [facility] of PFIZER VACCINE 00:00:00 [facility] SARS-COV-2 COVID-19 2020-12-30 Completed [facility]ive [facility] of PFIZER VACCINE 00:00:00 [facility] SARS-COV-2 COVID-19 2020-12-30 Completed Unive [facility] of PFIZER VACCINE 00:00:00 [facility] SARS-COV-2 COVID-19 2020-12-30 Completed [facility]ive [facility] of PFIZER VACCINE 00:00:00 [facility] SARS-COV-2 COVID-19 2020-12-30 Completed [facility]ive [facility] of PFIZER VACCINE 00:00:00 [facility] SARS-COV-2 COVID-19 2020-12-30 Completed [facility]ive [facility] of PFIZER VACCINE 00:00:00 [facility] SARS-COV-2 COVID-19 2020-12-30 Completed [facility]ive [facility] of PFIZER VACCINE 00:00:00 [facility] SARS-COV-2 COVID-19 2020-12-30 Completed [facility]ive [facility] of PFIZER VACCINE 00:00:00 [facility] SARS-COV-2 COVID-19 2020-12-30 Completed Unive [facility] of PFIZER VACCINE 00:00:00 [facility] SARS-COV-2 COVID-19 2020-12-30 Completed Unive [facility] of PFIZER VACCINE 00:00:00 [facility] SARS-COV-2 COVID-19 2020-12-30 Completed [facility]ive [facility] of PFIZER VACCINE 00:00:00 [facility] SARS-COV-2 COVID-19 2020-12-30 Completed [facility]ive [facility] of PFIZER VACCINE 00:00:00 [facility] SARS-COV-2 COVID-19 2020-12-30 Completed [facility]ive [facility] of PFIZER VACCINE 00:00:00 [facility] SARS-COV-2 COVID-19 2020-12-30 Completed [facility]ive [facility] of PFIZER VACCINE 00:00:00 [facility] SARS-COV-2 COVID-19 2020-12-30 Completed [facility]ive [facility] of PFIZER VACCINE 00:00:00 [facility] SARS-COV-2 COVID-19 2020-12-30 Completed Unive [facility] of PFIZER VACCINE 00:00:00 [facility] SARS-COV-2 COVID-19 2020-12-30 Completed Unive rsity of PFIZER VACCINE 00:00:00 [facility] SARS-COV-2 COVID-19 2020-12-30 Completed Unive rsity of PFIZER VACCINE 00:00:00 [facility] SARS-COV-2 COVID-19 2020-12-30 Completed Unive rsity of PFIZER VACCINE 00:00:00 [facility] SARS-COV-2 COVID-19 2020-12-30 Completed Unive [facility] of PFIZER VACCINE 00:00:00 [facility] SARS-COV-2 COVID-19 2020-12-30 Completed Unive [facility]ity of PFIZER VACCINE 00:00:00 [facility] SARS-COV-2 COVID-19 2020-12-30 Completed Unive [facility]ity of PFIZER VACCINE 00:00:00 [facility] SARS-COV-2 COVID-19 2020-12-30 Completed [facility]ive [facility] of PFIZER VACCINE 00:00:00 [facility] SARS-COV-2 COVID-19 2020-12-30 Completed Unive rs[facility] of PFIZER VACCINE 00:00:00 [facility] SARS-COV-2 COVID-19 2020-12-30 Completed Unive [facility] of PFIZER VACCINE 00:00:00 [facility] SARS-COV-2 COVID-19 2020-12-30 Completed Unive rsity of PFIZER VACCINE 00:00:00 [facility] SARS-COV-2 COVID-19 2020-12-30 Completed Unive rsity of PFIZER VACCINE 00:00:00 [facility] SARS-COV-2 COVID-19 2020-12-30 Completed Unive rsity of PFIZER VACCINE 00:00:00 [facility] SARS-COV-2 COVID-19 2020-12-30 Completed Unive [facility] of PFIZER VACCINE 00:00:00 [facility] SARS-COV-2 COVID-19 2020-12-30 Completed Unive [facility] of PFIZER VACCINE 00:00:00 [facility] SARS-COV-2 COVID-19 2020-12-30 Completed Unive rsity of PFIZER VACCINE 00:00:00 [facility] SARS-COV-2 COVID-19 2020-12-30 Completed Unive rsity of PFIZER VACCINE 00:00:00 [facility] SARS-COV-2 COVID-19 2020-12-30 Completed Unive rsity of PFIZER VACCINE 00:00:00 [facility] SARS-COV-2 COVID-19 2020-12-30 Completed Unive rsity of PFIZER VACCINE 00:00:00 [facility] SARS-COV-2 COVID-19 2020-12-30 Completed Unive [facility]ity of PFIZER VACCINE 00:00:00 [facility] SARS-COV-2 COVID-19 2020-12-30 Completed Unive rsity of PFIZER VACCINE 00:00:00 [facility] SARS-COV-2 COVID-19 2020-12-30 Completed Unive rsity of PFIZER VACCINE 00:00:00 [facility] SARS-COV-2 COVID-19 2020-12-30 Completed Unive rsity of PFIZER VACCINE 00:00:00 [facility] SARS-COV-2 COVID-19 2020-12-30 Completed Unive rsity of PFIZER VACCINE 00:00:00 [facility] SARS-COV-2 COVID-19 2020-12-30 Completed Unive rsity of PFIZER VACCINE 00:00:00 [facility] SARS-COV-2 COVID-19 2020-12-30 Completed Unive rsity of PFIZER VACCINE 00:00:00 [facility] SARS-COV-2 COVID-19 2020-12-30 Completed Unive rsity of PFIZER VACCINE 00:00:00 [facility] SARS-COV-2 COVID-19 2020-12-30 Completed Unive rsity of PFIZER VACCINE 00:00:00 [facility] SARS-COV-2 COVID-19 2020-12-30 Completed Unive rsity of PFIZER VACCINE 00:00:00 [facility] SARS-COV-2 COVID-19 2020-12-30 Completed Unive rsity of PFIZER VACCINE 00:00:00 [facility] SARS-COV-2 COVID-19 2020-12-30 Completed Unive rsity of PFIZER VACCINE 00:00:00 [facility] SARS-COV-2 COVID-19 2020-12-30 Completed Unive rsity of PFIZER VACCINE 00:00:00 [facility] SARS-COV-2 COVID-19 2020-12-30 Completed Unive rsity of PFIZER VACCINE 00:00:00 [facility] SARS-COV-2 COVID-19 2020-12-30 Completed Unive rsity of PFIZER VACCINE 00:00:00 [facility] SARS-COV-2 COVID-19 2020-12-30 Completed Unive rsity of PFIZER VACCINE 00:00:00 [facility] SARS-COV-2 COVID-19 2020-12-30 Completed Unive rsity of PFIZER VACCINE 00:00:00 [facility] SARS-COV-2 COVID-19 2020-12-30 Completed Unive rsity of PFIZER VACCINE 00:00:00 [facility] SARS-COV-2 COVID-19 2020-12-30 Completed Unive rsity of PFIZER VACCINE 00:00:00 [facility] SARS-COV-2 COVID-19 2020-12-30 Completed Unive [facility]ity of PFIZER VACCINE 00:00:00 [facility] SARS-COV-2 COVID-19 2020-12-30 Completed Unive [facility]ity of PFIZER VACCINE 00:00:00 [facility] SARS-COV-2 COVID-19 2020-12-30 Completed Unive rsity of PFIZER VACCINE 00:00:00 [facility] SARS-COV-2 COVID-19 2020-12-30 Completed Unive rsity of PFIZER VACCINE 00:00:00 [facility] SARS-COV-2 COVID-19 2020-12-30 Completed Unive [facility] of PFIZER VACCINE 00:00:00 [facility] SARS-COV-2 COVID-19 2020-12-30 Completed Unive rsity of PFIZER VACCINE 00:00:00 [facility] SARS-COV-2 COVID-19 2020-12-30 Completed Unive [facility]ity of PFIZER VACCINE 00:00:00 [facility] SARS-COV-2 COVID-19 2020-12-30 Completed Unive rsity [...] Completed Unive rsity of PFIZER VACCINE 00:00:00 [facility] SARS-COV-2 COVID-19 2020-12-30 Completed Unive rsity of PFIZER VACCINE 00:00:00 [facility] SARS-COV-2 COVID-19 2020-12-30 Completed Unive rsity of PFIZER VACCINE 00:00:00 [facility] SARS-COV-2 COVID-19 2020-12-30 Completed Unive [facility]ity of PFIZER VACCINE 00:00:00 [facility] SARS-COV-2 COVID-19 2020-12-30 Completed Unive rsity of PFIZER VACCINE 00:00:00 [facility] SARS-COV-2 COVID-19 2020-12-30 Completed Unive rsity of PFIZER VACCINE 00:00:00 [facility] SARS-COV-2 COVID-19 2020-12-30 Completed Unive rsity of PFIZER VACCINE 00:00:00 [facility] SARS-COV-2 COVID-19 2020-12-30 Completed Unive rsity [...] Completed Unive rsity of PFIZER VACCINE 00:00:00 [facility] SARS-COV-2 COVID-19 2020-12-30 Completed Unive rsity of PFIZER VACCINE 00:00:00 [facility] SARS-COV-2 COVID-19 2020-12-30 Completed Unive rsity of PFIZER VACCINE 00:00:00 [facility] SARS-COV-2 COVID-19 2020-12-30 Completed Unive rsity of PFIZER VACCINE 00:00:00 [facility] SARS-COV-2 COVID-19 2020-12-30 Completed Unive rsity of PFIZER VACCINE 00:00:00 [facility] SARS-COV-2 COVID-19 2020-12-30 Completed [facility] of PFIZER VACCINE 00:00:00 [facility] SARS-COV-2 COVID-19 2020-12-30 Completed Unive rsity of PFIZER VACCINE 00:00:00 [facility] SARS-COV-2 COVID-19 2020-12-30 Completed Unive rsity of PFIZER VACCINE 00:00:00 [facility] SARS-COV-2 COVID-19 2020-12-30 Completed Unive rsity of PFIZER VACCINE 00:00:00 [facility] SARS-COV-2 COVID-19 2020-12-30 Completed [facility] PFIZER VACCINE 00:00:00 [facility] SARS-COV-2 COVID-19 2020-12-30 Completed [facility] PFIZER VACCINE 00:00:00 [facility] SARS-COV-2 COVID-19 2020-12-30 Completed [facility] PFIZER VACCINE 00:00:00 [facility] SARS-COV-2 COVID-19 2020-12-30 Completed [facility] PFIZER VACCINE 00:00:00 [facility] SARS-COV-2 COVID-19 2020-12-30 Completed [facility] PFIZER VACCINE 00:00:00 [facility] SARS-COV-2 COVID-19 2020-12-30 Completed [facility] PFIZER VACCINE 00:00:00 [facility] SARS-COV-2 COVID-19 2020-12-30 Completed [facility] PFIZER VACCINE 00:00:00 [facility] SARS-COV-2 COVID-19 2020-12-30 Completed [facility] PFIZER VACCINE 00:00:00 [facility] SARS-COV-2 COVID-19 2020-12-30 Completed [facility] PFIZER VACCINE 00:00:00 [facility] SARS-COV-2 COVID-19 2020-12-30 Completed [facility] PFIZER VACCINE 00:00:00 [facility] SARS-COV-2 COVID-19 2020-12-30 Completed [facility] PFIZER VACCINE 00:00:00 [facility] SARS-COV-2 COVID-19 2020-12-30 Completed [facility] PFIZER VACCINE 00:00:00 [facility] SARS-COV-2 COVID-19 2020-12-30 Completed [facility] PFIZER VACCINE 00:00:00 [facility] SARS-COV-2 COVID-19 2020-12-30 Completed [facility] PFIZER VACCINE 00:00:00 [facility] SARS-COV-2 COVID-19 2020-12-30 Completed [facility] PFIZER VACCINE 00:00:00 [facility] SARS-COV-2 COVID-19 2020-12-30 Completed [facility] PFIZER VACCINE 00:00:00 [facility] SARS-COV-2 COVID-19 2020-12-30 Completed [facility] PFIZER VACCINE 00:00:00 [facility] SARS-COV-2 COVID-19 2020-12-30 Completed [facility] PFIZER VACCINE 00:00:00 [facility] SARS-COV-2 COVID-19 2020-12-30 Completed [facility] PFIZER VACCINE 00:00:00 [facility] SARS-COV-2 COVID-19 2020-12-30 Completed [facility] PFIZER VACCINE 00:00:00 [facility] SARS-COV-2 COVID-19 2020-12-30 Completed [facility] PFIZER VACCINE 00:00:00 [facility] SARS-COV-2 COVID-19 2020-12-30 Completed [facility] PFIZER VACCINE 00:00:00 [facility] SARS-COV-2 COVID-19 2020-12-30 Completed [facility] PFIZER VACCINE 00:00:00 [facility] SARS-COV-2 COVID-19 2020-12-30 Completed [facility] PFIZER VACCINE 00:00:00 [facility] SARS-COV-2 COVID-19 2020-12-30 Completed [facility] PFIZER VACCINE 00:00:00 [facility] SARS-COV-2 COVID-19 2020-12-30 Completed [facility] PFIZER VACCINE 00:00:00 [facility] SARS-COV-2 COVID-19 2020-12-30 Completed [facility] PFIZER VACCINE 00:00:00 [facility] SARS-COV-2 COVID-19 2020-12-30 Completed [facility] PFIZER VACCINE 00:00:00 [facility] SARS-COV-2 COVID-19 2020-12-30 Completed [facility] PFIZER VACCINE 00:00:00 [facility] SARS-COV-2 COVID-19 2020-12-30 Completed [facility] PFIZER VACCINE 00:00:00 [facility] SARS-COV-2 COVID-19 2020-12-30 Completed [facility] PFIZER VACCINE 00:00:00 [facility] SARS-COV-2 COVID-19 2020-12-30 Completed [facility] PFIZER VACCINE 00:00:00 [facility] SARS-COV-2 COVID-19 2020-12-30 Completed [facility] PFIZER VACCINE 00:00:00 [facility] SARS-COV-2 COVID-19 2020-12-30 Completed [facility] PFIZER VACCINE 00:00:00 [facility] SARS-COV-2 COVID-19 2020-12-30 Completed [facility] PFIZER VACCINE 00:00:00 [facility] SARS-COV-2 COVID-19 2020-12-30 Completed [facility] PFIZER VACCINE 00:00:00 [facility] SARS-COV-2 COVID-19 2020-12-30 Completed [facility] PFIZER VACCINE 00:00:00 [facility] SARS-COV-2 COVID-19 2020-12-07 Completed [facility] PFIZER VACCINE 00:00:00 [facility] SARS-COV-2 COVID-19 2020-12-07 Completed [facility] PFIZER VACCINE 00:00:00 [facility] SARS-COV-2 COVID-19 2020-12-07 Completed [facility] PFIZER VACCINE 00:00:00 [facility] SARS-COV-2 COVID-19 2020-12-07 Completed [facility] PFIZER VACCINE 00:00:00 [facility] SARS-COV-2 COVID-19 2020-12-07 Completed [facility] PFIZER VACCINE 00:00:00 [facility] SARS-COV-2 COVID-19 2020-12-07 Completed [facility] PFIZER VACCINE 00:00:00 [facility] SARS-COV-2 COVID-19 2020-12-07 Completed [facility] PFIZER VACCINE 00:00:00 [facility] SARS-COV-2 COVID-19 2020-12-07 Completed [facility] PFIZER VACCINE 00:00:00 [facility] SARS-COV-2 COVID-19 2020-12-07 Completed [facility] PFIZER VACCINE 00:00:00 [facility] SARS-COV-2 COVID-19 2020-12-07 Completed [facility] PFIZER VACCINE 00:00:00 [facility] SARS-COV-2 COVID-19 2020-12-07 Completed [facility] PFIZER VACCINE 00:00:00 [facility] SARS-COV-2 COVID-19 2020-12-07 Completed [facility] PFIZER VACCINE 00:00:00 [facility] SARS-COV-2 COVID-19 2020-12-07 Completed [facility] PFIZER VACCINE 00:00:00 [facility] SARS-COV-2 COVID-19 2020-12-07 Completed [facility] PFIZER VACCINE 00:00:00 [facility] SARS-COV-2 COVID-19 2020-12-07 Completed [facility] PFIZER VACCINE 00:00:00 [facility] SARS-COV-2 COVID-19 2020-12-07 Completed [facility] PFIZER VACCINE 00:00:00 [facility] SARS-COV-2 COVID-19 2020-12-07 Completed [facility] PFIZER VACCINE 00:00:00 [facility] SARS-COV-2 COVID-19 2020-12-07 Completed [facility] PFIZER VACCINE 00:00:00 [facility] SARS-COV-2 COVID-19 2020-12-07 Completed [facility] PFIZER VACCINE 00:00:00 [facility] SARS-COV-2 COVID-19 2020-12-07 Completed [facility] PFIZER VACCINE 00:00:00 [facility] SARS-COV-2 COVID-19 2020-12-07 Completed [facility] PFIZER VACCINE 00:00:00 [facility] SARS-COV-2 COVID-19 2020-12-07 Completed [facility] PFIZER VACCINE 00:00:00 [facility] SARS-COV-2 COVID-19 2020-12-07 Completed [facility] PFIZER VACCINE 00:00:00 [facility] SARS-COV-2 COVID-19 2020-12-07 Completed [facility] PFIZER VACCINE 00:00:00 [facility] SARS-COV-2 COVID-19 2020-12-07 Completed [facility] PFIZER VACCINE 00:00:00 [facility] SARS-COV-2 COVID-19 2020-12-07 Completed [facility] PFIZER VACCINE 00:00:00 [facility] SARS-COV-2 COVID-19 2020-12-07 Completed [facility] PFIZER VACCINE 00:00:00 [facility] SARS-COV-2 COVID-19 2020-12-07 Completed [facility] PFIZER VACCINE 00:00:00 [facility] SARS-COV-2 COVID-19 2020-12-07 Completed [facility] PFIZER VACCINE 00:00:00 [facility] SARS-COV-2 COVID-19 2020-12-07 Completed [facility] PFIZER VACCINE 00:00:00 [facility] SARS-COV-2 COVID-19 2020-12-07 Completed [facility] PFIZER VACCINE 00:00:00 [facility] SARS-COV-2 COVID-19 2020-12-07 Completed [facility] PFIZER VACCINE 00:00:00 [facility] SARS-COV-2 COVID-19 2020-12-07 Completed [facility] PFIZER VACCINE 00:00:00 [facility] SARS-COV-2 COVID-19 2020-12-07 Completed [facility] PFIZER VACCINE 00:00:00 [facility] SARS-COV-2 COVID-19 2020-12-07 Completed [facility] PFIZER VACCINE 00:00:00 [facility] SARS-COV-2 COVID-19 2020-12-07 Completed [facility] PFIZER VACCINE 00:00:00 [facility] SARS-COV-2 COVID-19 2020-12-07 Completed [facility] PFIZER VACCINE 00:00:00 [facility] SARS-COV-2 COVID-19 2020-12-07 Completed [facility] PFIZER VACCINE 00:00:00 [facility] SARS-COV-2 COVID-19 2020-12-07 Completed [facility] PFIZER VACCINE 00:00:00 [facility] SARS-COV-2 COVID-19 2020-12-07 Completed [facility] PFIZER VACCINE 00:00:00 [facility] SARS-COV-2 COVID-19 2020-12-07 Completed [facility] PFIZER VACCINE 00:00:00 [facility] SARS-COV-2 COVID-19 2020-12-07 Completed [facility] PFIZER VACCINE 00:00:00 [facility] SARS-COV-2 COVID-19 2020-12-07 Completed [facility] PFIZER VACCINE 00:00:00 [facility] SARS-COV-2 COVID-19 2020-12-07 Completed [facility] PFIZER VACCINE 00:00:00 [facility] SARS-COV-2 COVID-19 2020-12-07 Completed [facility] PFIZER VACCINE 00:00:00 [facility] SARS-COV-2 COVID-19 2020-12-07 Completed [facility] PFIZER VACCINE 00:00:00 [facility] SARS-COV-2 COVID-19 2020-12-07 Completed [facility] PFIZER VACCINE 00:00:00 [facility] SARS-COV-2 COVID-19 2020-12-07 Completed [facility] PFIZER VACCINE 00:00:00 [facility] SARS-COV-2 COVID-19 2020-12-07 Completed [facility] PFIZER VACCINE 00:00:00 [facility] SARS-COV-2 COVID-19 2020-12-07 Completed [facility] PFIZER VACCINE 00:00:00 [facility] SARS-COV-2 COVID-19 2020-12-07 Completed [facility] PFIZER VACCINE 00:00:00 [facility] SARS-COV-2 COVID-19 2020-12-07 Completed [facility] PFIZER VACCINE 00:00:00 [facility] SARS-COV-2 COVID-19 2020-12-07 Completed [facility] PFIZER VACCINE 00:00:00 [facility] SARS-COV-2 COVID-19 2020-12-07 Completed [facility] PFIZER VACCINE 00:00:00 [facility] SARS-COV-2 COVID-19 2020-12-07 Completed [facility] PFIZER VACCINE 00:00:00 [facility] SARS-COV-2 COVID-19 2020-12-07 Completed [facility] PFIZER VACCINE 00:00:00 [facility] SARS-COV-2 COVID-19 2020-12-07 Completed [facility] PFIZER VACCINE 00:00:00 [facility] SARS-COV-2 COVID-19 2020-12-07 Completed [facility] PFIZER VACCINE 00:00:00 [facility] SARS-COV-2 COVID-19 2020-12-07 Completed [facility] PFIZER VACCINE 00:00:00 [facility] SARS-COV-2 COVID-19 2020-12-07 Completed [facility] PFIZER VACCINE 00:00:00 [facility] SARS-COV-2 COVID-19 2020-12-07 Completed [facility] PFIZER VACCINE 00:00:00 [facility] SARS-COV-2 COVID-19 2020-12-07 Completed [facility] PFIZER VACCINE 00:00:00 [facility] SARS-COV-2 COVID-19 2020-12-07 Completed [facility] PFIZER VACCINE 00:00:00 [facility] SARS-COV-2 COVID-19 2020-12-07 Completed [facility] PFIZER VACCINE 00:00:00 [facility] SARS-COV-2 COVID-19 2020-12-07 Completed [facility] PFIZER VACCINE 00:00:00 [facility] SARS-COV-2 COVID-19 2020-12-07 Completed [facility] PFIZER VACCINE 00:00:00 [facility] SARS-COV-2 COVID-19 2020-12-07 Completed [facility] PFIZER VACCINE 00:00:00 [facility] SARS-COV-2 COVID-19 2020-12-07 Completed [facility] PFIZER VACCINE 00:00:00 [facility] SARS-COV-2 COVID-19 2020-12-07 Completed [facility] PFIZER VACCINE 00:00:00 [facility] SARS-COV-2 COVID-19 2020-12-07 Completed [facility] PFIZER VACCINE 00:00:00 [facility] SARS-COV-2 COVID-19 2020-12-07 Completed [facility] PFIZER VACCINE 00:00:00 [facility] SARS-COV-2 COVID-19 2020-12-07 Completed [facility] PFIZER VACCINE 00:00:00 [facility] SARS-COV-2 COVID-19 2020-12-07 Completed [facility] PFIZER VACCINE 00:00:00 [facility] SARS-COV-2 COVID-19 2020-12-07 Completed [facility] PFIZER VACCINE 00:00:00 [facility] SARS-COV-2 COVID-19 2020-12-07 Completed [facility] PFIZER VACCINE 00:00:00 [facility] SARS-COV-2 COVID-19 2020-12-07 Completed [facility] PFIZER VACCINE 00:00:00 [facility] SARS-COV-2 COVID-19 2020-12-07 Completed [facility] PFIZER VACCINE 00:00:00 [facility] SARS-COV-2 COVID-19 2020-12-07 Completed [facility] PFIZER VACCINE 00:00:00 [facility] SARS-COV-2 COVID-19 2020-12-07 Completed [facility] PFIZER VACCINE 00:00:00 [facility] SARS-COV-2 COVID-19 2020-12-07 Completed [facility] PFIZER VACCINE 00:00:00 [facility] SARS-COV-2 COVID-19 2020-12-07 Completed [facility] PFIZER VACCINE 00:00:00 [facility] SARS-COV-2 COVID-19 2020-12-07 Completed [facility] PFIZER VACCINE 00:00:00 [facility] SARS-COV-2 COVID-19 2020-12-07 Completed [facility] PFIZER VACCINE 00:00:00 [facility] SARS-COV-2 COVID-19 2020-12-07 Completed [facility] PFIZER VACCINE 00:00:00 [facility] SARS-COV-2 COVID-19 2020-12-07 Completed [facility] PFIZER VACCINE 00:00:00 [facility] SARS-COV-2 COVID-19 2020-12-07 Completed [facility] PFIZER VACCINE 00:00:00 [facility] SARS-COV-2 COVID-19 2020-12-07 Completed [facility] PFIZER VACCINE 00:00:00 [facility] SARS-COV-2 COVID-19 2020-12-07 Completed [facility] PFIZER VACCINE 00:00:00 [facility] SARS-COV-2 COVID-19 2020-12-07 Completed [facility] PFIZER VACCINE 00:00:00 [facility] SARS-COV-2 COVID-19 2020-12-07 Completed [facility] PFIZER VACCINE 00:00:00 [facility] SARS-COV-2 COVID-19 2020-12-07 Completed [facility] PFIZER VACCINE 00:00:00 [facility] SARS-COV-2 COVID-19 2020-12-07 Completed [facility] PFIZER VACCINE 00:00:00 [facility] SARS-COV-2 COVID-19 2020-12-07 Completed [facility] PFIZER VACCINE 00:00:00 [facility] SARS-COV-2 COVID-19 2020-12-07 Completed [facility] PFIZER VACCINE 00:00:00 [facility] SARS-COV-2 COVID-19 2020-12-07 Completed [facility] PFIZER VACCINE 00:00:00 [facility] SARS-COV-2 COVID-19 2020-12-07 Completed [facility] PFIZER VACCINE 00:00:00 [facility] SARS-COV-2 COVID-19 2020-12-07 Completed [facility] PFIZER VACCINE 00:00:00 [facility] SARS-COV-2 COVID-19 2020-12-07 Completed [facility] PFIZER VACCINE 00:00:00 [facility] SARS-COV-2 COVID-19 2020-12-07 Completed [facility] PFIZER VACCINE 00:00:00 [facility] SARS-COV-2 COVID-19 2020-12-07 Completed [facility] PFIZER VACCINE 00:00:00 [facility] SARS-COV-2 COVID-19 2020-12-07 Completed [facility] PFIZER VACCINE 00:00:00 [facility] SARS-COV-2 COVID-19 2020-12-07 Completed [facility] PFIZER VACCINE 00:00:00 [facility] SARS-COV-2 COVID-19 2020-12-07 Completed [facility] PFIZER VACCINE 00:00:00 [facility] SARS-COV-2 COVID-19 2020-12-07 Completed [facility] PFIZER VACCINE 00:00:00 [facility] SARS-COV-2 COVID-19 2020-12-07 Completed [facility] PFIZER VACCINE 00:00:00 [facility] SARS-COV-2 COVID-19 2020-12-07 Completed [facility] PFIZER VACCINE 00:00:00 [facility] SARS-COV-2 COVID-19 2020-12-07 Completed [facility] PFIZER VACCINE 00:00:00 [facility] SARS-COV-2 COVID-19 2020-12-07 Completed [facility] PFIZER VACCINE 00:00:00 [facility] SARS-COV-2 COVID-19 2020-12-07 Completed [facility] PFIZER VACCINE 00:00:00 [facility] SARS-COV-2 COVID-19 2020-12-07 Completed [facility] PFIZER VACCINE 00:00:00 [facility] SARS-COV-2 COVID-19 2020-12-07 Completed [facility] PFIZER VACCINE 00:00:00 [facility] SARS-COV-2 COVID-19 2020-12-07 Completed [facility] PFIZER VACCINE 00:00:00 [facility] SARS-COV-2 COVID-19 2020-12-07 Completed [facility] PFIZER VACCINE 00:00:00 [facility] SARS-COV-2 COVID-19 2020-12-07 Completed [facility] PFIZER VACCINE 00:00:00 [facility] SARS-COV-2 COVID-19 2020-12-07 Completed [facility] PFIZER VACCINE 00:00:00 [facility] SARS-COV-2 COVID-19 2020-12-07 Completed [facility] PFIZER VACCINE 00:00:00 [facility] SARS-COV-2 COVID-19 2020-12-07 Completed [facility] PFIZER VACCINE 00:00:00 [facility] SARS-COV-2 COVID-19 2020-12-07 Completed [facility] PFIZER VACCINE 00:00:00 [facility] SARS-COV-2 COVID-19 2020-12-07 Completed [facility] PFIZER VACCINE 00:00:00 [facility] SARS-COV-2 COVID-19 2020-12-07 Completed [facility] PFIZER VACCINE 00:00:00 [facility] SARS-COV-2 COVID-19 2020-12-07 Completed [facility] PFIZER VACCINE 00:00:00 [facility] SARS-COV-2 COVID-19 2020-12-07 Completed [facility] PFIZER VACCINE 00:00:00 [facility] SARS-COV-2 COVID-19 2020-12-07 Completed [facility] PFIZER VACCINE 00:00:00 [facility] SARS-COV-2 COVID-19 2020-12-07 Completed [facility] PFIZER VACCINE 00:00:00 [facility] SARS-COV-2 COVID-19 2020-12-07 Completed [facility] PFIZER VACCINE 00:00:00 [facility] SARS-COV-2 COVID-19 2020-12-07 Completed [facility] PFIZER VACCINE 00:00:00 [facility] SARS-COV-2 COVID-19 2020-12-07 Completed [facility] PFIZER VACCINE 00:00:00 [facility] SARS-COV-2 COVID-19 2020-12-07 Completed [facility] PFIZER VACCINE 00:00:00 [facility] SARS-COV-2 COVID-19 2020-12-07 Completed [facility] PFIZER VACCINE 00:00:00 [facility] SARS-COV-2 COVID-19 2020-12-07 Completed [facility] PFIZER VACCINE 00:00:00 [facility] SARS-COV-2 COVID-19 2020-12-07 Completed [facility] PFIZER VACCINE 00:00:00 [facility] SARS-COV-2 COVID-19 2020-12-07 Completed [facility] PFIZER VACCINE 00:00:00 [facility] SARS-COV-2 COVID-19 2020-12-07 Completed [facility] PFIZER VACCINE 00:00:00 [facility] SARS-COV-2 COVID-19 2020-12-07 Completed [facility] PFIZER VACCINE 00:00:00 [facility] SARS-COV-2 COVID-19 2020-12-07 Completed [facility] PFIZER VACCINE 00:00:00 [facility] SARS-COV-2 COVID-19 2020-12-07 Completed [facility] PFIZER VACCINE 00:00:00 [facility] SARS-COV-2 COVID-19 2020-12-07 Completed [facility] PFIZER VACCINE 00:00:00 [facility] SARS-COV-2 COVID-19 2020-12-07 Completed [facility] PFIZER VACCINE 00:00:00 [facility] SARS-COV-2 COVID-19 2020-12-07 Completed [facility] PFIZER VACCINE 00:00:00 [facility] SARS-COV-2 COVID-19 2020-12-07 Completed [facility] PFIZER VACCINE 00:00:00 [facility] SARS-COV-2 COVID-19 2020-12-07 Completed [facility] PFIZER VACCINE 00:00:00 [facility] SARS-COV-2 COVID-19 2020-12-07 Completed [facility] PFIZER VACCINE 00:00:00 [facility] SARS-COV-2 COVID-19 2020-12-07 Completed [facility] PFIZER VACCINE 00:00:00 [facility] SARS-COV-2 COVID-19 2020-12-07 Completed [facility] PFIZER VACCINE 00:00:00 [facility] SARS-COV-2 COVID-19 2020-12-07 Completed [facility] PFIZER VACCINE 00:00:00 [facility] SARS-COV-2 COVID-19 2020-12-07 Completed [facility] PFIZER VACCINE 00:00:00 [facility] SARS-COV-2 COVID-19 2020-12-07 Completed [facility] PFIZER VACCINE 00:00:00 [facility] SARS-COV-2 COVID-19 2020-12-07 Completed [facility] PFIZER VACCINE 00:00:00 [facility] SARS-COV-2 COVID-19 2020-12-07 Completed [facility] PFIZER VACCINE 00:00:00 [facility] SARS-COV-2 COVID-19 2020-12-07 Completed [facility] PFIZER VACCINE 00:00:00 [facility] SARS-COV-2 COVID-19 2020-12-07 Completed [facility] PFIZER VACCINE 00:00:00 [facility] SARS-COV-2 COVID-19 2020-12-07 Completed [facility] PFIZER VACCINE 00:00:00 [facility] SARS-COV-2 COVID-19 2020-12-07 Completed [facility] PFIZER VACCINE 00:00:00 [facility] SARS-COV-2 COVID-19 2020-12-07 Completed [facility] PFIZER VACCINE 00:00:00 [facility] SARS-COV-2 COVID-19 2020-12-07 Completed [facility] PFIZER VACCINE 00:00:00 [facility] SARS-COV-2 COVID-19 2020-12-07 Completed [facility] PFIZER VACCINE 00:00:00 [facility] SARS-COV-2 COVID-19 2020-12-07 Completed [facility] PFIZER VACCINE 00:00:00 [facility] SARS-COV-2 COVID-19 2020-12-07 Completed [facility] PFIZER VACCINE 00:00:00 [facility] SARS-COV-2 COVID-19 2020-12-07 Completed [facility] PFIZER VACCINE 00:00:00 [facility] SARS-COV-2 COVID-19 2020-12-07 Completed [facility] PFIZER VACCINE 00:00:00 [facility] SARS-COV-2 COVID-19 2020-12-07 Completed [facility] PFIZER VACCINE 00:00:00 [facility] SARS-COV-2 COVID-19 2020-12-07 Completed [facility] PFIZER VACCINE 00:00:00 [facility] SARS-COV-2 COVID-19 2020-12-07 Completed [facility] [...] 00:00:00 [facility] Influenza Virus 2020-08-16 Completed [facility] - Vaccine, No Preserv, 00:00:00 Exte rnal age 6 months and up Influenza Virus 2020-08-16 Completed [facility] - Vaccine, No Preserv, 00:00:00 Exte rnal age 6 months and up Influenza Virus 2020-08-16 Completed [facility] - Vaccine, No Preserv, 00:00:00 [facility]te rnal age 6 months and up Influenza Virus 2020-08-16 Completed [facility] - Vaccine, No Preserv, 00:00:00 [facility]te rnal age 6 months and up Influenza Virus 2020-08-16 Completed [facility] - Vaccine, No Preserv, 00:00:00 Exte rnal age 6 months and up Influenza Virus 2020-08-16 Completed [facility] - Vaccine, No Preserv, 00:00:00 Exte rnal age 6 months and up Influenza Virus 2020-08-16 Completed [facility] - Vaccine, No [...] months and up Influenza Virus 2019-07-01 Completed [facility]inda vasquez - Vaccine, No Preserv, 00:00:00 Exte rnal age 6 months and up Influenza Virus 2019-07-01 Completed [facility] - Vaccine, No Preserv, 00:00:00 Exte rnal age 6 months and up Influenza Virus 2019-07-01 Completed [facility] - Vaccine, No Preserv, 00:00:00 Exte rnal age 6 months and up Influenza Virus 2019-07-01 Completed [facility] - Vaccine, No Preserv, 00:00:00 Exte rnal age 6 months and up Influenza Virus 2019-07-01 Completed [facility] - Vaccine, No Preserv, 00:00:00 Exte rnal age 6 months and up Influenza Virus 2019-07-01 Completed [facility] - Vaccine, No [...] [place] [facility] Influenza Virus 2018-08-22 Completed [facility] - Vaccine, No Preserv, 00:00:00 Exte rnal age 6 months and up Influenza Virus 2018-08-22 Completed [facility] - Vaccine, No Preserv, 00:00:00 Exte rnal age 6 months and up Influenza Virus 2018-08-22 Completed [facility] - Vaccine, No Preserv, 00:00:00 Exte rnal age 6 months and up Influenza Virus 2018-08-22 Completed [facility] - Vaccine, No Preserv, 00:00:00 Exte rnal age 6 months and up Influenza Virus 2018-08-22 Completed [facility] - Vaccine, No Preserv, 00:00:00 Exte rnal age 6 months and up Influenza Virus 2018-08-22 Completed [facility] - Vaccine, No Preserv, 00:00:00 Exte rnal age 6 months and up Influenza Virus 2018-08-22 Completed [facility] - Vaccine, No Preserv, 00:00:00 Exte rnal age 6 months and up Influenza Virus 2018-08-22 Completed [facility]:00[facility]00 [facility] Influenza Virus 2018-08-22 Completed [facility]+ 00:00:00 [facility] Influenza Virus 2018-08-22 Completed [facility]+ 00:00:00 [facility] Influenza Virus 2018-08-22 Completed [facility]+ 00:00:00 [facility] Influenza Virus 2018-08-22 Completed [facility]+ 00:00:00 [facility] Influenza Virus 2018-08-22 Completed [facility]+ 00:00:00 [facility] Influenza Virus 2018-08-22 Completed [facility]+ 00:00:00 [facility] Influenza Virus 2018-08-22 Completed [facility]+ 00:00:00 [facility] Influenza Virus 2018-08-22 Completed [facility]+ 00:00:00 [facility] Influenza Virus 2018-08-22 Completed [facility]+ 00:00:00 [facility] Influenza Virus 2018-08-22 Completed [facility] 3+ 00:00:00 [facility] Influenza Virus 2018-08-22 Completed [facility] 3+ 00:00:00 [facility] Influenza Virus 2018-08-22 Completed [facility] 3+ 00:00:00 [facility] Influenza Virus 2018-08-22 Completed [facility] 3+ 00:00:00 [facility] Influenza Virus 2018-08-22 Completed [facility] 3+ 00:00:00 [facility] Influenza Virus 2018-08-22 Completed [facility] 3+ 00:00:00 [facility] Influenza Virus 2018-08-22 Completed [facility] 3+ 00:00:00 [facility] Influenza Virus 2018-08-22 Completed [facility] 3+ 00:00:00 [facility] Influenza Virus 2018-08-22 Completed [facility] 3+ 00:00:00 [facility] Influenza Virus 2018-08-22 Completed [facility] 3+ 00:00:00 [facility] Influenza Virus 2018-08-22 Completed [facility] 3+ 00:00:00 [facility] Influenza Virus 2018-08-22 Completed [facility]+ 00:00:00 [facility] Influenza Virus 2018-08-22 Completed [facility] of Vaccine Quad IM 3+ 00:00:00 [facility] Influenza Virus 2018-08-22 Completed [facility] Vaccine Quad IM 3+ 00:00:00 [facility] Influenza Virus 2018-08-22 Completed [facility] of Vaccine Quad IM 3+ 00:00:00 [facility] Influenza Virus 2018-08-22 Completed [facility] y of Vaccine Quad IM 3+ 00:00:00 [facility] Influenza Virus 2018-08-22 Completed [facility] y of Vaccine Quad IM 3+ 00:00:00 [facility] Influenza Virus 2018-08-22 Completed [facility] y of Vaccine Quad IM 3+ 00:00:00 [facility] Influenza Virus 2018-08-22 Completed [facility] y of Vaccine Quad IM 3+ 00:00:00 [facility] Influenza Virus 2018-08-22 Completed [facility] y of Vaccine Quad IM 3+ 00:00:00 [facility] Influenza Virus 2018-08-22 Completed [facility] y of Vaccine Quad IM 3+ 00:00:00 [facility] Influenza Virus 2018-08-22 Completed [facility] y of Vaccine Quad IM 3+ 00:00:00 [facility] Influenza Virus 2018-08-22 Completed [facility] y of Vaccine Quad IM 3+ 00:00:00 [facility] Influenza Virus 2018-08-22 Completed [facility]it y of Vaccine Quad IM 3+ 00:00:00 [facility] Influenza Virus 2018-08-22 Completed [facility] y of Vaccine Quad IM 3+ 00:00:00 [facility] Influenza Virus 2018-08-22 Completed [facility]it y of Vaccine Quad IM 3+ 00:00:00 [facility] Influenza Virus 2018-08-22 Completed [facility] y of Vaccine Quad IM 3+ 00:00:00 [facility] Influenza Virus 2018-08-22 Completed [facility]it y of Vaccine Quad IM 3+ 00:00:00 [facility] Influenza Virus 2018-08-22 Completed [facility] y of Vaccine Quad IM 3+ 00:00:00 [facility] Influenza Virus 2018-08-22 Completed [facility] y of Vaccine Quad IM 3+ 00:00:00 [facility] Influenza Virus 2018-08-22 Completed [facility] y of Vaccine Quad IM 3+ 00:00:00 [facility] Influenza Virus 2018-08-22 Completed [facility] y of Vaccine Quad IM 3+ 00:00:00 [facility] Influenza Virus 2018-08-22 Completed [facility] y of Vaccine Quad IM 3+ 00:00:00 [facility] Influenza Virus 2018-08-22 Completed [facility] y of Vaccine Quad IM 3+ 00:00:00 [facility] Influenza Virus 2018-08-22 Completed [facility] y of Vaccine Quad IM 3+ 00:00:00 [facility] Influenza Virus 2018-08-22 Completed [facility] y of Vaccine Quad IM 3+ 00:00:00 [facility] Influenza Virus 2018-08-22 Completed [facility] y of Vaccine Quad IM 3+ 00:00:00 [facility] Influenza Virus 2018-08-22 Completed [facility] y of Vaccine Quad IM 3+ 00:00:00 [facility] Influenza Virus 2018-08-22 Completed [facility] y of Vaccine Quad IM 3+ 00:00:00 [facility] Influenza Virus 2018-08-22 Completed [facility] y of Vaccine Quad IM 3+ 00:00:00 [facility] Influenza Virus 2018-08-22 Completed [facility] y of Vaccine Quad IM 3+ 00:00:00 [facility] Influenza Virus 2018-08-22 Completed [facility] y of Vaccine Quad IM 3+ 00:00:00 [facility] Influenza Virus 2018-08-22 Completed [facility] y of Vaccine Quad IM 3+ 00:00:00 [facility] Influenza Virus 2018-08-22 Completed [facility] y of Vaccine Quad IM 3+ 00:00:00 [facility] Influenza Virus 2018-08-22 Completed [facility] y of Vaccine Quad IM 3+ 00:00:00 [facility] Influenza Virus 2018-08-22 Completed [facility] y of Vaccine Quad IM 3+ 00:00:00 [facility] Influenza Virus 2018-08-22 Completed [facility] y of Vaccine Quad IM 3+ 00:00:00 [facility] Influenza Virus 2018-08-22 Completed [facility] y of Vaccine Quad IM 3+ 00:00:00 [facility] Influenza Virus 2018-08-22 Completed [facility] y of Vaccine Quad IM 3+ 00:00:00 [facility] Influenza Virus 2018-08-22 Completed [facility] y of Vaccine Quad IM 3+ 00:00:00 [facility] Influenza Virus 2018-08-22 Completed [facility] y of Vaccine Quad IM 3+ 00:00:00 [facility] Influenza Virus 2018-08-22 Completed [facility] y of Vaccine Quad IM 3+ 00:00:00 [facility] Influenza Virus 2018-08-22 Completed [facility] y of Vaccine Quad IM 3+ 00:00:00 [facility] Influenza Virus 2018-08-22 Completed [facility] y of Vaccine Quad IM 3+ 00:00:00 [facility] Influenza Virus 2018-08-22 Completed [facility] y of Vaccine Quad IM 3+ 00:00:00 [facility] Influenza Virus 2018-08-22 Completed [facility] y of Vaccine Quad IM 3+ 00:00:00 [facility] Influenza Virus 2018-08-22 Completed [facility] y of Vaccine Quad IM 3+ 00:00:00 [facility] Influenza Virus 2018-08-22 Completed [facility] y of Vaccine Quad IM 3+ 00:00:00 [facility] Influenza Virus 2018-08-22 Completed [facility] y of Vaccine Quad IM 3+ 00:00:00 [facility] Influenza Virus 2018-08-22 Completed [facility] y of Vaccine Quad IM 3+ 00:00:00 [facility] Influenza Virus 2018-08-22 Completed [facility] y of Vaccine Quad IM 3+ 00:00:00 [facility] Influenza Virus 2018-08-22 Completed [facility] y of Vaccine Quad IM 3+ 00:00:00 [facility] Influenza Virus 2018-08-22 Completed [facility] of Vaccine Quad IM 3+ 00:00:00 [facility] Influenza Virus 2018-08-22 Completed [facility] y of Vaccine Quad IM 3+ 00:00:00 [facility] Influenza Virus 2018-08-22 Completed [facility] y of Vaccine Quad IM 3+ 00:00:00 [facility] Influenza Virus 2018-08-22 Completed [facility] y of Vaccine Quad IM 3+ 00:00:00 [facility] Influenza Virus 2018-08-22 Completed [facility] y of Vaccine Quad IM 3+ 00:00:00 [facility] Influenza Virus 2018-08-22 Completed [facility] y of Vaccine Quad IM 3+ 00:00:00 [facility] Influenza Virus 2018-08-22 Completed [facility] y of Vaccine Quad IM 3+ 00:00:00 [facility] Influenza Virus 2018-08-22 Completed [facility] of Vaccine Quad IM 3+ 00:00:00 [facility] Influenza Virus 2018-08-22 Completed [facility] of Vaccine Quad IM 3+ 00:00:00 [facility] Influenza Virus 2018-08-22 Completed [facility] of Vaccine Quad IM 3+ 00:00:00 [facility] Influenza Virus 2018-08-22 Completed [facility] of Vaccine Quad IM 3+ 00:00:00 [facility] Influenza Virus 2018-08-22 Completed [facility] of Vaccine Quad IM 3+ 00:00:00 [facility] Pneumococcal Vaccine, 2017-11-23 Completed Cyril sey Seybold - Conjugate 13 00:00:00 External Pneumococcal Vaccine, 2017-11-23 Completed Cyril sey Seybold - Conjugate 13 00:00:00 External Pneumococcal Vaccine, 2017-11-23 Completed Cyril sey Seybold - Conjugate 13 00:00:00 External Pneumococcal Vaccine, 2017-11-23 Completed Cyril sey Seybold - Conjugate 13 00:00:00 External Pneumococcal Vaccine, 2017-11-23 Completed Cyril sey Seybold - Conjugate 13 00:00:00 External Pneumococcal Vaccine, 2017-11-23 Completed Cyril sey Seybold - Conjugate 13 00:00:00 External Pneumococcal Vaccine, 2017-11-23 Completed Cyril sey Seybold - Conjugate 13 00:00:00 External Pneumococcal 13 [...] dical (Prevnar 13) Branch pneumococcal 2013-11-30 Completed [facility] 23-valent vaccine 22:02:00 Pneumococcal Vaccine, 2013-11-30 Completed Cyril Drew - Polysaccharide 00:00:00 External Pneumococcal Vaccine, 2013-11-30 Completed Cyril Snyderold - Polysaccharide 00:00:00 External Pneumococcal Vaccine, 2013-11-30 Completed Cyril iglesias Seybold - Polysaccharide 00:00:00 External Pneumococcal Vaccine, 2013-11-30 Completed Cyril iglesias Seybold - Polysaccharide 00:00:00 External Pneumococcal Vaccine, 2013-11-30 Completed Cyril sey Seybold - Polysaccharide 00:00:00 External Pneumococcal Vaccine, 2013-11-30 Completed Cyril y Seybold - Polysaccharide 00:00:00 External Pneumococcal Vaccine, 2013-11-30 Completed Cyril y Seybold - Polysaccharide 00:00:00 External Pneumococcal 2013-11-30 Completed [...] Completed [facility] o f Polysaccharide, 00:00:[address] [facility] ical PPSV23 (PNEUMOVAX) Branch Pneumococcal 2013-11-30 Completed [place] [facility] f Polysaccharide, 00:00:00 [facility] ical PPSV23 (PNEUMOVAX) Branch Pneumococcal 2013-11-30 Completed [place] o f Polysaccharide, 00:00:00 [facility] ical PPSV23 (PNEUMOVAX) Branch influenza virus 2013-11-26 Completed [facility] Srikanth vaccine, inactivated 23:20:00 Influenza Virus 2013-11-26 Completed Melinda Se ybold - Vaccine, Unspecified 00:00:00 Exte rnal Formulation Influenza Virus 2013-11-26 Completed Melinda Se ybold - Vaccine, Unspecified 00:00:00 Exte rnal Formulation Influenza Virus 2013-11-26 Completed Melinda Se ybold - Vaccine, Unspecified 00:00:00 Exte rnal Formulation Influenza Virus 2013-11-26 Completed Melinda Se ybold - Vaccine, Unspecified 00:00:00 Exte rnal Formulation Influenza Virus 2013-11-26 Completed Melinda Se ybold - Vaccine, Unspecified 00:00:00 Exte rnal Formulation Influenza Virus 2013-11-26 Completed Melinda Se ybold - Vaccine, Unspecified 00:00:00 Exte rnal Formulation Influenza Virus 2013-11-26 Completed Melinda Se ybold - Vaccine, Unspecified 00:00:00 Exte rnal Formulation Influenza Virus 2013-11-26 Completed Universit y of Vaccine 00:00:00 [facility] Influenza Virus 2013-11-26 Completed Universit y of Vaccine 00:00:00 [facility] Influenza Virus 2013-11-26 Completed [facility]it y of Vaccine 00:00:00 [facility] Influenza Virus 2013-11-26 Completed [facility]it y of Vaccine 00:00:00 [facility] Influenza Virus 2013-11-26 Completed [facility] y of Vaccine 00:00:00 [facility] Influenza Virus 2013-11-26 Completed [facility]it y of Vaccine 00:00:00 [facility] Influenza Virus 2013-11-26 Completed [facility] y of Vaccine 00:00:00 [facility] Influenza Virus 2013-11-26 Completed [facility]it y of Vaccine 00:00:00 [facility] Influenza Virus 2013-11-26 Completed [facility] y of Vaccine 00:00:00 [facility] Influenza Virus 2013-11-26 Completed [facility]it y of Vaccine 00:00:00 [facility] Influenza Virus 2013-11-26 Completed [facility]it y of Vaccine 00:00:00 [facility] Influenza Virus 2013-11-26 Completed [facility]it y of Vaccine 00:00:00 [facility] Influenza Virus 2013-11-26 Completed [facility]it y of Vaccine 00:00:00 [facility] Influenza Virus 2013-11-26 Completed [facility]it y of Vaccine 00:00:00 [facility] Influenza Virus 2013-11-26 Completed [facility]it y of Vaccine 00:00:00 [facility] Influenza Virus 2013-11-26 Completed [facility]it y of Vaccine 00:00:00 [facility] Influenza Virus 2013-11-26 Completed [facility]it y of Vaccine 00:00:00 [facility] Influenza Virus 2013-11-26 Completed [facility]it y of Vaccine 00:00:00 [facility] Influenza Virus 2013-11-26 Completed [facility]it y of Vaccine 00:00:00 [facility] Influenza Virus 2013-11-26 Completed [facility]it y of Vaccine 00:00:00 [facility] Influenza Virus 2013-11-26 Completed [facility]it y of Vaccine 00:00:00 [facility] Influenza Virus 2013-11-26 Completed [facility]it y of Vaccine 00:00:00 [facility] Influenza Virus 2013-11-26 Completed [facility]it y of Vaccine 00:00:00 [facility] Influenza Virus 2013-11-26 Completed [facility]it y of Vaccine 00:00:00 [facility] Influenza Virus 2013-11-26 Completed [facility]it y of Vaccine 00:00:00 [facility] Influenza Virus 2013-11-26 Completed [facility]it y of Vaccine 00:00:00 [facility] Influenza Virus 2013-11-26 Completed [facility]it y of Vaccine 00:00:00 [facility] Influenza Virus 2013-11-26 Completed [facility]it y of Vaccine 00:00:00 [facility] Influenza Virus 2013-11-26 Completed [facility]it y of Vaccine 00:00:00 [facility] Influenza Virus 2013-11-26 Completed [facility]it y of Vaccine 00:00:00 [facility] Influenza Virus 2013-11-26 Completed [facility]it y of Vaccine 00:00:00 [facility] Influenza Virus 2013-11-26 Completed [facility]it y of Vaccine 00:00:00 [facility] Influenza Virus 2013-11-26 Completed [facility]it y of Vaccine 00:00:00 [facility] Influenza Virus 2013-11-26 Completed [facility]it y of Vaccine 00:00:00 [facility] Influenza Virus 2013-11-26 Completed [facility]it y of Vaccine 00:00:00 [facility] Influenza Virus 2013-11-26 Completed [facility]it y of Vaccine 00:00:00 [facility] Influenza Virus 2013-11-26 Completed [facility]it y of Vaccine 00:00:00 [facility] Influenza Virus 2013-11-26 Completed [facility]it y of Vaccine 00:00:00 [facility] Influenza Virus 2013-11-26 Completed [facility]it y of Vaccine 00:00:00 [facility] Influenza Virus 2013-11-26 Completed [facility]it y of Vaccine 00:00:00 [facility] Influenza Virus 2013-11-26 Completed [facility]it y of Vaccine 00:00:00 [facility] Influenza Virus 2013-11-26 Completed [facility]it y of Vaccine 00:00:00 [facility] Influenza Virus 2013-11-26 Completed [facility]it y of Vaccine 00:00:00 [facility] Influenza Virus 2013-11-26 Completed [facility]it y of Vaccine 00:00:00 [facility] Influenza Virus 2013-11-26 Completed [facility]it y of Vaccine 00:00:00 [facility] Influenza Virus 2013-11-26 Completed [facility]it y of Vaccine 00:00:00 [facility] Influenza Virus 2013-11-26 Completed [facility]it y of Vaccine 00:00:00 [facility] Influenza Virus 2013-11-26 Completed [facility]it y of Vaccine 00:00:00 [facility] Influenza Virus 2013-11-26 Completed [facility]it y of Vaccine 00:00:00 [facility] Influenza Virus 2013-11-26 Completed Universit y of Vaccine 00:00:00 [facility] Influenza Virus 2013-11-26 Completed [facility]it y of Vaccine 00:00:00 [facility] Influenza Virus 2013-11-26 Completed [facility]it y of Vaccine 00:00:00 [facility] Influenza Virus 2013-11-26 Completed [facility]it y of Vaccine 00:00:00 [facility] Influenza Virus 2013-11-26 Completed Universit y of Vaccine 00:00:00 [facility] Influenza Virus 2013-11-26 Completed [facility]it y of Vaccine 00:00:00 [facility] Influenza Virus 2013-11-26 Completed [facility]it y of Vaccine 00:00:00 [facility] Influenza Virus 2013-11-26 Completed [facility]it y of Vaccine 00:00:00 [facility] Influenza Virus 2013-11-26 Completed [facility]it y of Vaccine 00:00:00 [facility] Influenza Virus 2013-11-26 Completed [facility]it y of Vaccine 00:00:00 [facility] Influenza Virus 2013-11-26 Completed [facility]it y of Vaccine 00:00:00 [facility] Influenza Virus 2013-11-26 Completed [facility]it y of Vaccine 00:00:00 [facility] Influenza Virus 2013-11-26 Completed [facility]it y of Vaccine 00:00:00 [facility] Influenza Virus 2013-11-26 Completed [facility]it y of Vaccine 00:00:00 [facility] Influenza Virus 2013-11-26 Completed [facility]it y of Vaccine 00:00:00 [facility] Influenza Virus 2013-11-26 Completed [facility]it y of Vaccine 00:00:00 [facility] Influenza Virus 2013-11-26 Completed [facility]it y of Vaccine 00:00:00 [facility] Influenza Virus 2013-11-26 Completed [facility]it y of Vaccine 00:00:00 [facility] Influenza Virus 2013-11-26 Completed [facility]it y of Vaccine 00:00:00 [facility] Influenza Virus 2013-11-26 Completed [facility]it y of Vaccine 00:00:00 [facility] Influenza Virus 2013-11-26 Completed [facility]it y of Vaccine 00:00:00 [facility] Influenza Virus 2013-11-26 Completed Universit y of Vaccine 00:00:00 [facility] Influenza Virus 2013-11-26 Completed Universit y of Vaccine 00:00:00 [facility] Influenza Virus 2013-11-26 Completed [facility]it y of Vaccine 00:00:00 [facility] Influenza Virus 2013-11-26 Completed [facility]it y of Vaccine 00:00:00 [facility] Influenza Virus 2013-11-26 Completed [facility]it y of Vaccine 00:00:00 [facility] Influenza Virus 2013-11-26 Completed [facility]it y of Vaccine 00:00:00 [facility] Influenza Virus 2013-11-26 Completed [facility]it y of Vaccine 00:00:00 [facility] Influenza Virus 2013-11-26 Completed [facility]it y of Vaccine 00:00:00 [facility] Influenza Virus 2013-11-26 Completed [facility]it y of Vaccine 00:00:00 [facility] Influenza Virus 2013-11-26 Completed [facility]it y of Vaccine 00:00:00 [facility] Influenza Virus 2013-11-26 Completed [facility]it y of Vaccine 00:00:00 [facility] Influenza Virus 2013-11-26 Completed [facility]it y of Vaccine 00:00:00 [facility] Influenza Virus 2013-11-26 Completed [facility]it y of Vaccine 00:00:00 [facility] Influenza Virus 2013-11-26 Completed [facility]it y of Vaccine 00:00:00 [facility] Vital Signs Vital Name Observation Time Observation Value Comments Source Systolic blood 2023-05-15 112 mm[Hg] Melinda Seybol d - pressure 15:34:00 External Diastolic blood 2023-05-15 74 mm[Hg] Melinda Seybo ld - pressure 15:34:00 External Heart rate 2023-05-15 93 /min Melinda Seybold - 15:34:00 External Body temperature 2023-05-15 36.61 Nusrat Melinda Seyb old - 15:34:00 External Respiratory rate 2023-05-15 20 /min Melinda Seyb old - 15:34:00 External Body height 2023-05-15 147.3 cm Melinda Seybold - 15:34:00 External Body weight 2023-05-15 77.565 kg Melinda Seybold - 15:34:00 External BMI 2023-05-15 35.74 kg/m2 Melinda Seybold - 15:34:00 External Oxygen saturation 2023-05-15 99 /min Melinda Iglesias bold - in Arterial blood 15:34:00 External by Pulse oximetry Systolic blood 2023-05-07 103 mm[Hg] Melinda Seybol d - pressure 16:46:00 External Diastolic blood 2023-05-07 70 mm[Hg] Melinda Seybo ld - pressure 16:46:00 External Heart rate 2023-05-07 92 /min Melinda Seybold - 16:46:00 External Body temperature 2023-05-07 36.83 Nusrat Melinda Seyb old - 16:46:00 External Respiratory rate 2023-05-07 17 /min Melinda Seyb old - 16:46:00 External Body height 2023-05-07 147.3 cm Melinda Seybold - 16:46:00 External Body weight 2023-05-07 77.747 kg Melinad Seybold - 16:46:00 External BMI 2023-05-07 35.82 kg/m2 Melinda Seybold - 16:46:00 External Systolic blood 2023-04-10 130 mm[Hg] Melinda Seybol d - pressure 16:30:00 External Diastolic blood 2023-04-10 80 mm[Hg] Melinda Seybo ld - pressure 16:30:00 External Heart rate 2023-04-10 113 /min Melinda Alvesybold - 16:30:00 External Body temperature 2023-04-10 37.17 Nusrat Melinda Alvesyb old - 16:30:00 External Respiratory rate 2023-04-10 16 /min Melinda Alvesyb old - 16:30:00 External Body height 2023-04-10 147.3 cm Melinda Alvesybold - 16:30:00 External Body weight 2023-04-10 88.27 kg Melinda Alvesybold - 16:30:00 External BMI 2023-04-10 40.67 kg/m2 Melinda Alvesybold - 16:30:00 External Oxygen saturation 2023-04-10 95 /min Melinda Iglesias bold - in Arterial blood 16:30:00 External by Pulse oximetry Systolic blood 2023-04-04 105 mm[Hg] Melinda Seybol d - pressure 13:17:00 External Diastolic blood 2023-04-04 74 mm[Hg] Melinda Seybo ld - pressure 13:17:00 External Heart rate 2023-04-04 87 /min Melinda Alvesybold - 13:17:00 External Body temperature 2023-04-04 36.72 Nusrat Melinda Snyder old - 13:17:00 External Respiratory rate 2023-04-04 18 /min Melinda Snyder old - 13:17:00 External Body height 2023-04-04 147.3 cm Melinda Alvesybold - 13:17:00 External Body weight 2023-04-04 77.565 kg Melinda Alvesybold - 13:17:00 External BMI 2023-04-04 35.74 kg/m2 Melinda Alvesybold - 13:17:00 External Systolic blood 2023-03-13 117 mm[Hg] Melinda Seybol d - pressure 14:20:00 External Diastolic blood 2023-03-13 77 mm[Hg] Melinda Seybo ld - pressure 14:20:00 External Heart rate 2023-03-13 90 /min Melinda Alvesybold - 14:20:00 External Body temperature 2023-03-13 36.61 Nusrat eMlinda Snyder old - 14:20:00 External Respiratory rate 2023-03-13 14 /min Melinda Snyder old - 14:20:00 External Body height 2023-03-13 147.3 cm Melinda Drew - 14:20:00 External Body weight 2023-03-13 77.111 kg Melinda Drew - 14:20:00 External BMI 2023-03-13 35.53 kg/m2 Melinda Drew - 14:20:00 External Oxygen saturation 2023-03-13 99 /min Melinda ortiz - in Arterial blood 14:20:00 External by Pulse oximetry HEIGHT 2023-02-04 147.3 cm 23:00:00 WEIGHT 2023-02-04 46.902 kg 23:00:00 HEIGHT 2023-02-04 147.3 cm 23:00:00 WEIGHT 2023-02-04 46.902 kg 23:00:00 HEIGHT 2023-02-04 147.3 cm 23:00:00 WEIGHT 2023-02-04 46.902 kg 23:00:00 Systolic blood 2023-01-23 104 mm[Hg] [facility] pressure 14:09:00 Diastolic blood 2023-01-23 73 mm[Hg] [facility] pressure 14:09:00 Heart rate 2023-01-23 98 /min [facility] 14:09:00 Body temperature 2023-01-23 36.67 Nusrat [facility] 14:09:00 Respiratory rate 2023-01-23 18 /min [facility] 14:09:00 Body height 2023-01-23 147.3 cm [facility] 14:09:00 Body weight 2023-01-23 75.297 kg [facility] 14:09:00 BMI 2023-01-23 34.69 kg/m2 [facility] 14:09:00 Oxygen saturation 2023-01-23 97 /min [facility] in Arterial blood 14:09:00 by Pulse oximetry Systolic blood 2023-01-15 127 mm[Hg] [facility] pressure 18:21:00 [facility] Diastolic blood 2023-01-15 81 mm[Hg] [facility] pressure 18:21:00 [facility] Heart rate 2023-01-15 78 /min [facility] 18:21:00 [facility] Body temperature 2023-01-15 36.83 Nusrat [facility] 18:21:00 [facility] Body height 2023-01-15 147.3 cm [facility] 18:21:00 [facility] Body weight 2023-01-15 75.297 kg [facility] 18:21:00 [facility] BMI 2023-01-15 34.69 kg/m2 [facility] 18:21:00 [facility] Systolic blood 2022-12-31 114 mm[Hg] Melinda Seybol d - pressure 14:32:00 External Diastolic blood 2022-12-31 70 mm[Hg] Melinda Seybo ld - pressure 14:32:00 External Heart rate 2022-12-31 101 /min Melinda Seybold - 14:32: External Body temperature 2022-12-31 36 Nusrat Melinda Seyb old - 14:32: External Respiratory rate 2022-12-31 14 /min Melinda Seyb old - 14:32: External Body height 2022-12-31 147.3 cm Melinda Seybold - 14:32:00 External Body weight 2022-12-31 74.844 kg Melinda Seybold - 14:32:00 External BMI 2022-12-31 34.49 [...] 2022-11-06 107 mm[Hg] [facility] pressure 16:07:00 [facility] Diastolic blood 2022-11-06 71 mm[Hg] [facility] pressure 16:07:00 [facility] Heart rate 2022-11-06 91 /min University 16:07:00 [facility] Body temperature 2022-11-06 36.72 Nusrat [facility] 16:07:00 [facility] Respiratory rate 2022-11-06 18 /min University 16:07:00 [facility] Body height 2022-11-06 147.3 cm University 16:07:00 [facility] Body weight 2022-11-06 72.213 kg [facility] 16:07:00 [facility] BMI 2022-11-06 33.27 kg/m2 University 16:07:00 [facility] Systolic blood 2022-10-29 121 mm[Hg] Melinda Liao d - pressure 21:12:00 External Diastolic blood 2022-10-29 76 mm[Hg] Melinda Nieves ld - pressure 21:12:00 External Heart rate 2022-10-29 100 /min Melinda Snyderold - 21:12:00 External Body temperature 2022-10-29 36.94 Nusrat Melinda Snyder old - 21:12:00 External Respiratory rate 2022-10-29 14 /min Melinda Snyder old - 21:12:00 External Body height 2022-10-29 149.9 cm Melinda Drew - 21:12:00 External Body weight 2022-10-29 63.504 kg Melinda Drew - 21:12:00 External BMI 2022-10-29 28.28 kg/m2 Melinda Drew - 21:12:00 External Oxygen saturation 2022-10-29 99 /min Melinda Iglesias bold - in Arterial blood 21:12:00 External by [...] oximetry Systolic blood 2022-10-02 127 mm[Hg] Melinda Alvesybol d - pressure 19:49:00 External Diastolic blood 2022-10-02 74 mm[Hg] Melinda Alvesybo ld - pressure 19:49:00 External Heart rate 2022-10-02 75 /min Melinda Alvesybold - 19:49:00 External Body temperature 2022-10-02 36.72 Nusrat Melinda Alvesyb old - 19:49:00 External Respiratory rate 2022-10-02 14 /min Melinda Alvesyb old - 19:49:00 External Body height 2022-10-02 149.9 cm Melinda Alvesybold - 19:49:00 External Body weight 2022-10-02 67.586 kg Melinda Alvesybold - 19:49:00 External BMI 2022-10-02 30.09 kg/m2 Melinda Alvesybold - 19:49:00 External Oxygen saturation 2022-10-02 97 /min Melinda Alvesanh bold - in Arterial blood 19:49:00 External by Pulse oximetry Systolic blood 2022-08-08 154 mm[Hg] [facility] pressure 18:03:00 [facility] Diastolic blood 2022-08-08 94 mm[Hg] [facility] pressure 18:03:00 [facility] Heart rate 2022-08-08 77 /min [facility] 17:52:00 [facility] Body temperature 2022-08-08 36.78 Nusrat [facility] 17:52:00 [facility] Body height 2022-08-08 147.3 cm [facility] 17:52:00 [facility] Body weight 2022-08-08 70.217 kg [facility] 17:52:00 [facility] BMI 2022-08-08 32.35 kg/m2 [facility] 17:52:00 [facility] Systolic blood 2022-07-24 121 mm[Hg] [facility] pressure 19:34:00 [facility] Diastolic blood 2022-07-24 75 mm[Hg] [facility] pressure 19:34:00 [facility] Heart rate 2022-07-24 80 /min [facility] 19:34:00 [facility] Body temperature 2022-07-24 37.06 Nusrat [facility] 19:34:00 [facility] Respiratory rate 2022-07-24 17 /min [facility] 19:34:00 [facility] Body height 2022-07-24 147.3 cm [facility] 19:34:00 [facility] Body weight 2022-07-24 71.033 kg [facility] 19:34:00 [facility] BMI 2022-07-24 32.73 kg/m2 [facility] 19:34:00 [facility] Oxygen saturation 2022-07-24 93 /min [place] [facility] in Arterial blood 19:34:00 [facility] by Pulse oximetry Branch Systolic blood 2022-07-20 113 mm[Hg] [facility] pressure 19:02:00 [facility] Diastolic blood 2022-07-20 80 mm[Hg] [facility] pressure 19:02:00 [facility] Heart rate 2022-07-20 88 /min [facility] 19:02:00 [facility] Body temperature 2022-07-20 36.67 Nusrat [facility] 19:02:00 [facility] Respiratory rate 2022-07-20 18 /min [facility] 19:02:00 [facility] Body height 2022-07-20 147.3 cm [facility] 19:02:00 [facility] Body weight 2022-07-20 71.215 kg [facility] 19:02:00 [facility] BMI 2022-07-20 32.81 kg/m2 [facility] 19:02:00 [facility] Oxygen saturation 2022-07-20 97 /min [facility] in Arterial blood 19:02:00 [facility] by Pulse oximetry Branch Systolic blood 2022-07-18 113 mm[Hg] [facility] pressure 14:15:00 Diastolic blood 2022-07-18 77 mm[Hg] [facility] pressure 14:15:00 Heart rate 2022-07-18 77 /min [facility] 14:15:00 Body temperature 2022-07-18 36.44 Nusrat [facility] 14:15:00 Respiratory rate 2022-07-18 18 /min [facility] 14:15:00 Body height 2022-07-18 147.3 cm [facility] 14:15:00 Body weight 2022-07-18 71.668 kg [facility] 14:15:00 BMI 2022-07-18 33.02 kg/m2 [facility] 14:15:00 Oxygen saturation 2022-07-18 96 /min [facility] in Arterial blood 14:15:00 by Pulse oximetry Systolic blood 2022-06-15 125 mm[Hg] [facility] pressure 16:34:00 [facility] Diastolic blood 2022-06-15 80 mm[Hg] [facility] pressure 16:34:00 [facility] Heart rate 2022-06-15 78 /min [facility] 16:34:00 [facility] Respiratory rate 2022-06-15 18 /min University 16:34:00 [facility] Body weight 2022-06-15 71.215 kg [facility] 16:34:00 [facility] BMI 2022-06-15 32.81 kg/m2 [facility] 16:34:00 [facility] Oxygen saturation 2022-06-15 96 /min [place] [facility] in Arterial blood 16:34:00 [facility] by Pulse oximetry Branch Systolic blood 2022-06-08 123 mm[Hg] [facility] pressure 19:55:00 [facility] Diastolic blood 2022-06-08 76 mm[Hg] [facility] pressure 19:55:00 [facility] Heart rate 2022-06-08 80 /min [facility] 19:55:00 [facility] Body temperature 2022-06-08 36.83 Nusrat [facility] 19:55:00 [facility] Respiratory rate 2022-06-08 18 /min [facility] 19:55:00 [facility] Body height 2022-06-08 147.3 cm [facility] 19:55:00 [facility] Body weight 2022-06-08 73.483 kg [facility] 19:55:00 [facility] BMI 2022-06-08 33.86 kg/m2 [facility] 19:55:00 [facility] Oxygen saturation 2022-06-08 97 /min [facility] in [facility]ial [facility] 19:55[facility]00 [facility] Heart rate 2023-02-13 105 /min [facility] 11:49:[facility] Respiratory rate 2023-02-13 18 /[facility] Oxygen saturation 2023-02-13 100 /min [facility] in Arterial blood 11:49:00 Medical Ce nter by Pulse oximetry Systolic blood 2023-02-13 130 mm[Hg] [facility] pressure 11:00:00 [facility] Diastolic blood 2023-02-13 65 mm[Hg] [facility] pressure 11:00:00 [facility] Body temperature 2023-02-[address] [facility] Systolic blood 2023-02-11 112 mm[Hg] [facility] pressure 05:00:00 [facility] Diastolic blood 2023-02-11 59 mm[Hg] [facility] pressure 05:00:00 [facility] Heart rate 2023-02-11 77 /min [facility] 05:00:00 [facility] Body temperature 2023-02-[address] [facility] 05:00:00 [facility] Respiratory rate 2023-02-11 18 /min [facility] 05:00:00 [facility] Oxygen saturation 2023-02-11 95 /min [facility] in Arterial blood 05:00:00 Medical nter by Pulse oximetry Body height 2023-02-[address] [facility] 18:38:00 [facility] Center Body weight 2023-02-[address] [facility] 18:38:00 [facility] BMI 2023-02-10 21.53 kg/m2 [facility] 18:38:00 [facility] BP Systolic 2018-02-03 108 mm[Hg] Location: [place]; [facility] 08:49:00 Position: Sitting BP Diastolic 2018-02-03 77 mm[Hg] Location: [place]; [facility] 08:49:00 Position: Sitting Height 2018-02-03 57 [in_us] [facility] 08:49:00 Weight 2018-02-03 160.2 [lb_av] [facility] 08:49:00 Body Mass Index 2018-02-03 34.67 kg/m2 [facility] Calculated 08:49:00 Heart Rate 2018-02-03 81 /min Location: L [facility] 08:49:00 Brachial Artery; BP Systolic 2017-12-30 102 mm[Hg] Location: [place]; [facility] 11:33:00 Position: Sitting BP Diastolic 2017-12-30 69 mm[Hg] Location: [place]; [facility] 11:33:00 Position: Sitting Height 2017-12-30 57 [...] Physicians 10:30:00 Brachial Artery; Respitory Rate 2017-01-05 [facility] Herm tee 11:25:00 Systolic (mm Hg) 2017-01-05 [facility] rmann 11:25:00 Diastolic (mm Hg) 2017-01-05 [facility] H ermann 11:25:00 Temperature Oral 2017-01-05 97.8 F [facility] rmann (F) 11:25:00 Respitory Rate 2017-01-05 [facility] Herm tee 09:56:00 Systolic (mm Hg) 2017-01-05 [facility] rmann 09:56:00 Diastolic (mm Hg) 2017-01-05 [facility] H ermann 09:56:00 Temperature Oral 2017-01-05 97.6 F [facility] rmann (F) 09:56:00 Systolic (mm Hg) 2017[facility]-05 [facility] 08:16:00 Diastolic (mm Hg) 2017-01-05 [facility] 08:16:00 Respitory Rate 2017-01-05 [facility] 08:16:00 Temperature Oral 2017-01-05 97.8 F [facility] He rmann (F) 06:33:00 BMI Calculated 2017-01-05 [facility] 06:33:00 Weight 2017-01-05 [facility] 06:33:00 Height 2017-01-05 144.78 cm [facility] 06:33:00 Heart Rate 2017-01-05 [facility] 06:33:00 Weight 2014-03-21 [facility] 03:18:00 Height 2014-03-21 149.86 cm [facility] 03:18:00 BMI Calculated 2014-03-21 [facility] 03:18:00 Temperature Oral 2014-03-21 97.8 F [facility] Vaibhav rmann (F) 03:18:00 Heart Rate 2014-03-21 [facility] 03:18:00 Diastolic (mm Hg) 2014-03-21 [facility] 03:18:00 Respitory Rate 2014-03-21 [facility] 03:18:00 Systolic (mm Hg) 2014-03-21 [facility] 03:18:00 Systolic (mm Hg) 2014-03-19 [facility] 13:00:00 Respitory Rate 2014-03-19 [facility] 13:00:00 Diastolic (mm Hg) 2014-03-19 [facility] 13:00:00 Temperature Oral 2014-03-19 97.9 F [facility] rmann (F) 13:00:00 Heart Rate 2014-03-19 [facility] 13:00:00 Respitory Rate 2014-03-19 [facility] 08:54:00 Systolic (mm Hg) 2014-03-19 [facility] 08:54:00 Temperature Oral 2014-03-19 98.0 F [facility] rmann (F) 08:54:00 Heart Rate 2014-03-19 [facility] 08:54:00 Diastolic (mm Hg) 2014-03-19 [facility] 08:54:00 Diastolic (mm Hg) 2014-03-19 [facility] 04:44:00 Systolic (mm Hg) 2014-03-19 [facility] 04:44:00 Temperature Oral 2014-03-19 97.3 F [facility] He rmann (F) 04:44:00 Respitory Rate 2014-03-19 [...] tee 17:57:00 Temperature Oral 2014-01-01 98.4 F [facility] rmann (F) 17:57:00 Diastolic (mm Hg) 2014-01-01 [facility] 12:31:00 Systolic (mm Hg) 2014-01-01 [facility] 12:31:00 Heart Rate 2014-01-01 [facility] 12:31:00 Respitory Rate 2014-01-01 [facility] 10:55:00 Temperature Oral 2014-01-01 98.8 F [facility] rmann (F) 10:55:00 Systolic (mm Hg) 2014-01-01 [facility] He rmann 10:55:00 Diastolic (mm Hg) 2014-01-01 [facility] H ermann 10:55:00 Heart Rate 2014-01-01 [facility] 10:55:00 Respitory Rate 2014-01-01 [facility] 03:47:00 Temperature Oral 2014-01-01 98.4 F [facility] rmann (F) 03:47:00 Height 2013-12-01 147.32 cm [facility] 00:06:00 BMI Calculated 2013-12-01 [facility] 00:06:00 Weight 2013-12-01 [facility] 00:06:00 Systolic (mm Hg) 2013-11-30 [facility] He rmann 20:32:00 Heart Rate 2013-11-30 [facility] 20:32:00 Respitory Rate 2013-11-30 [facility] 20:32:00 Temperature Oral 2013-11-30 98.0 F Trevor Esposito rmann (F) 20:32:00 Diastolic (mm Hg) 2013-11-30 [facility] H ermann 20:32:00 Respitory Rate 2013-11-30 [facility] 17:01:00 Diastolic (mm Hg) 2013-11-30 [facility] H ermann 17:01:00 Temperature Oral 2013-11-30 98.0 F [facility] Vaibhav rmann (F) 17:01:00 Heart Rate 2013-11-30 [facility] 17:01:00 Systolic (mm Hg) 2013-11-30 [facility] Vaibhav rmann 17:01:00 Respitory Rate 2013-11-30 [facility] 13:37:00 Diastolic (mm Hg) 2013-11-30 [facility] Navjot ermann 13:37:00 Systolic (mm Hg) 2013-11-30 [facility] Vaibhav rmann 13:37:00 Heart Rate 2013-11-30 [facility] 13:37:00 Temperature Oral 2013-11-30 97.3 F [facility] Vaibhav rmann (F) 13:37:00 Weight 2013-11-26 [facility] 13:48:00 Height 2013-11-26 147.32 cm [facility] 13:48:00 BMI Calculated 2013-11-26 [facility] 13:48:00 Procedures Procedure Date / Time Performing Clinician Source Performed ASSIGNMENT OF BENEFITS 2023-05-13 20:12:35 Doctor Unassigned, No [facility] REFERRAL- 2023-04-10 05:01:00 Doctor Unassigned, No [facility] REQUEST/RESPONSE Name [facility] POCT-GLUCOSE METER 2023-02-13 17:54:00 Mindy Moreau [facility] CAROTID DOPPLER 2023-02-13 15:35:31 Jayme Gomez [facility] MR BRAIN WITH & WITHOUT 2023-02-13 09:58:[address] [facility] CONTRAST [facility] MRA HEAD WITH & WITHOUT 2023-02-13 09:58:[address] [facility] POCT-GLUCOSE METER 2023-02-13 06:16:00 [place], Mindy O [facility] BASIC METABOLIC PANEL 2023-02-13 03:52:[address] [facility] CBC W/PLT COUNT & AUTO 2023-02-13 03:52:00 Marcelino [facility] CBC W/PLT COUNT & AUTO 2023-02-13 03:52:00 Marcelino [facility] POCT-GLUCOSE METER 2023-02-12 22:03:00 [place], [facility] POCT-GLUCOSE METER 2023-02-12 16:53:00 [facility], [facility] CT CHEST WITHOUT IV 2023-02-12 13:53:[address] [facility] POCT-GLUCOSE METER 2023-02-12 11:26:00 [place], [facility] POCT-GLUCOSE METER 2023-02-12 08:19:00 [facility], [facility] BASIC METABOLIC PANEL 2023-02-12 04:03:[address] [facility] CBC W/PLT COUNT & AUTO 2023-02-12 04:03:00 Marcelino [facility] CBC W/PLT COUNT & AUTO 2023-02-12 04:03:00 [facility] 2023-02-11 21:16:00 [place], [facility] POCT-GLUCOSE METER 2023-02-11 17:19:00 [facility], [facility] O [facility] POCT-GLUCOSE METER 2023-02-11 11:36:00 [facility], [facility] EEG AWAKE AND DROWSY 2023-02-11 10:45:00 Jayme Gomze [facility] MR BRAIN WITHOUT IV 2023-02-11 08:25:00 Jayme Gomez [facility] BASIC METABOLIC PANEL 2023-02-11 04:16:00 [facility] W/[facility]T COUNT & AUTO 2023-02-11 04:16:00 [facility] W/PLT COUNT & AUTO 2023-02-11 04:16:00 [facility]SE METER 2023-02-10 21:52:00 [place], [facility] POCT-GLUCOSE METER 2023-02-10 17:08:00 [place], [facility] POCT-GLUCOSE METER 2023-02-10 11:51:00 [place], [facility] POCT-GLUCOSE METER 2023-02-10 08:46:00 [facility], [facility] BASIC METABOLIC PANEL 2023-02-10 04:25:00 [facility] W/PLT COUNT & AUTO 2023-02-10 04:25:00 [facility] W/PLT COUNT & AUTO 2023-02-10 04:25:00 [facility] (CELLAVISION MANUAL 2023-02-10 04:25:00 [facility] POCT-GLUCOSE METER 2023-02-09 21:36:00 [place], [facility] POCT-GLUCOSE METER 2023-02-09 12:43:00 [place], [facility] XR CHEST 1 VIEW PORTABLE 2023-02-09 10:01:00 [place], [facility] / BEDSIDE [facility] BASIC METABOLIC PANEL 2023-02-09 04:10:[address] [facility] CBC W/PLT COUNT & AUTO 2023-02-09 04:10:00 [facility] W/[facility]T COUNT & AUTO 2023-02-09 04:10:00 [facility] (CELLAVISION MANUAL 2023-02-09 04:10:00 [facility] MR LUMBAR SPINE WITHOUT 2023-02-08 21:13:[address] MR CERVICAL SPINE 2023-02-08 20:40:00 Kimmy Martins Krishna [facility] WITHOUT IV CONTRAST Medical Cent er 2D ECHO W/ DOPPLER 2023-02-08 16:21:00 Marcelino Kimo KRISTA [facility] (CW/PW/COLOR) [facility] 2D ECHO W/ DOPPLER 2023-02-08 16:21:00 Vishnu Bensonyal [facility] (CW/PW/COLOR) [facility] POCT-GLUCOSE METER 2023-02-08 15:51:[address] [facility] POCT-GLUCOSE METER 2023-02-08 10:55:[address] [facility] POCT-GLUCOSE METER 2023-02-08 07:15:[address] [facility] BASIC METABOLIC PANEL 2023-02-08 03:43:00 [facility] W/PLT COUNT & AUTO 2023-02-08 03:43:[address] [facility] CBC W/PLT COUNT & AUTO 2023-02-08 03:43:[address] [facility] POCT-GLUCOSE METER 2023-02-07 11:33:00 Apryl Holguin [facility] nter POCT-GLUCOSE METER 2023-02-07 07:19:00 Apryl Holguin [facility] nter BASIC METABOLIC PANEL 2023-02-07 04:39:00 [facility] W/PLT COUNT & AUTO 2023-02-07 04:39[facility]00 [facility] W/[facility]T COUNT & AUTO 2023-02-07 04:39:[address] [facility] POCT-GLUCOSE METER 2023-02-07 04:38:00 Apryl Holguin [facility] POCT-GLUCOSE METER 2023-02-06 14:06:00 Apryl Holguin [facility] URINE CULTURE 2023-02-06 11:50:00 TimMindy madden [facility] BASIC METABOLIC PANEL 2023-02-06 03:48:00 Kimo Benson [facility] CBC W/PLT COUNT & AUTO 2023-02-06 03:48:[address] [facility] MAGNESIUM 2023-02-06 03:48:00 Juliano White [facility] PHOSPHORUS 2023-02-06 03:48:00 Juliano White [facility] CBC W/PLT COUNT & AUTO 2023-02-06 03:48:00 [facility]SE [facility] 2023-02-05 23:42:00 Apryl Holguin [facility] MR BRAIN WITHOUT IV 2023-02-05 22:19:00 Kimo Benson [facility] MRA HEAD WITHOUT IV 2023-02-05 22:18:00 Juliano White [facility] RAPID DRUG SCREEN, URINE 2023-02-05 19:09:00 Juliano White [facility] URINALYSIS WITH 2023-02-05 19:09:00 [facility] URINALYSIS MICROSCOPIC 2023-02-05 19:09:00 [facility]CROSCOPIC 2023-02-05 19:09:00 Juliano White [facility] POCT-GLUCOSE METER 2023-02-05 18:54:00 Apryl Holguin [facility] POCT-GLUCOSE METER 2023-02-05 11:49:00 Binhmonicaleonel Holguin [facility] POCT-GLUCOSE METER 2023-02-05 07:51:[address] [facility] BASIC METABOLIC PANEL 2023-02-05 03:07:00 MarcelinoVishnuKimo [facility] CBC W/PLT COUNT & AUTO 2023-02-05 03:07:[address] [facility] MAGNESIUM 2023-02-05 03:07:00 Juliano White [facility] PHOSPHORUS 2023-02-05 03:07:00 Juliano White [facility] RPR 2023-02-05 03:07:00 [facility] LIPID PANEL 2023-02-05 03:07:00 Juliano White [facility] CBC W/PLT COUNT & AUTO 2023-02-05 03:07:00 Juliano White [facility] POCT-GLUCOSE METER 2023-02-05 00:28:[address] [facility] ECG 12-LEAD 2023-02-04 23:39:58 Juliano White [facility] ECG 12-LEAD 2023-02-04 23:39:58 Unknown, Hl7 Doctor [facility] ECG 12-LEAD 2023-02-04 23:39:58 Unknown, Hl7 Doctor [facility] CBC W/PLT COUNT & AUTO 2023-02-04 23:27:00 Emilee Fonseca CH, I [facility] COMPREHENSIVE METABOLIC 2023-02-04 23:27:[address] [facility] MAGNESIUM 2023-02-04 23:27:00 Emilee Fonseca [facility] PHOSPHORUS 2023-02-04 23:27:00 Emilee Fonseca [facility] HIGH SENSITIVITY 2023-02-04 23:27:[address] [facility] TROPONIN I [facility] B-TYPE NATRIURETIC 2023-02-04 23:27:00 [facility] TSH/FREE T4 IF INDICATED 2023-02-04 23:27:00 [facility] VITAMIN B12 2023-02-04 23:27:00 [facility]C 2023-02-04 23:27:00 [facility] LACTIC ACID, VENOUS 2023-02-04 23:27:[address] [facility] S t [facility] CBC W/PLT COUNT & AUTO 2023-02-04 23:27:00 Raymundo Emilee [facility] EKG-SCANNED 2023-02-04 00:00:00 ProviderAlejandra [facility] es Scanning [facility] REFERRAL- 2023-01-23 05:01:00 Doctor Unassigned, No [facility] REQUEST/RESPONSE Name [facility] PATIENT FINANCIAL 2022-12-13 18:04:36 Doctor Unassigned, No [facility] POLICY Name [facility] MR BRAIN WO CONTRAST 2022-08-22 15:07:35 Mann Perdomo [facility] FLU VACC ([id number]), 6 2022-07-20 19:17:10 Rj Mathis [facility] MO-64 YRS, .5ML, IM, [facility] QUAD (FLUCELVAX) NM GASTRIC EMPTYING 2022-07-11 18:06:[address] [facility] ORDERS 2022-07-03 05:01:00 Doctor Unassigned, No [facility] [place] [facility] EXTERNAL PROVIDER 2022-06-25 05:01:00 Doctor Unassigned, No [facility] RECORDS Name [facility] EXTERNAL PROVIDER 2022-06-13 05:01:00 Doctor Unassigned, No [facility] RECORDS Name [facility] REFERRAL- 2022-06-06 05:01:00 Doctor Unassigned, No [facility]ONSE Name Medical Branch INSURANCE CORRESPONDENCE 2022-05-23 05:01:00 Doctor Unassigned, No [facility] Name Medical Branch [UTP] Toxin - Botox 2017-12-04 00:00:00 [facility] [UTP] Toxin - Botox 2017-11-04 00:00:00 [facility] section [facility] Plan of Care Planned Activity Planned Date Details Comments Source Future Scheduled [address] [facility] 00:00:00 0-64 YRS (3 - PPSV23 if Medi li Center available, else PCV20) [code = PNEUMOCOCCAL VACCINE 0-64 YRS (3 - PPSV23 if available, else PCV20)] Future Scheduled 2031 Pneumococcal Vaccine: [facility] 00:[facility]:00 0-64 Years (3 - PPSV23 Medic al Center if available, else PCV20) [code = Pneumococcal Vaccine: 0-64 Years (3 - PPSV23 if available, else PCV20)] Future Scheduled 2031 Pneumococcal Vaccine: [facility] 00:00:00 0-64 Years (3 - PPSV23 Medic al Center if available, else PCV20) [code = Pneumococcal Vaccine: 0-64 Years (3 - PPSV23 if available, else PCV20)] Future Scheduled 2031 Pneumococcal Vaccine: [facility] 00:00:00 0-64 Years (3 - PPSV23 Medic al Center if available, else PCV20) [code = Pneumococcal Vaccine: 0-64 Years (3 - PPSV23 if available, else PCV20)] Future Scheduled 2031 Pneumococcal Vaccine: [facility] 00:00:00 0-64 Years (3 - PPSV23 Medic al Center if available, else PCV20) [code = Pneumococcal Vaccine: 0-64 Years (3 - PPSV23 if available, else PCV20)] Future Scheduled 2026-02-05 Lipid panel (procedure) [facility] 00:00:00 [code = 72814286] Medical Ce nter Future Scheduled 2026-02-05 Lipid panel (procedure) [facility] 00:00:00 [code = 24875316] Medical Ce nter Future Scheduled 2026-02-05 Lipid panel (procedure) [facility] 00:00:00 [code = 70044482] Medical Ce nter Future Scheduled 2026-02-05 Lipid panel (procedure) [facility] 00:00:00 [code = 80815786] Medical Ce nter Future Scheduled 2026-02-05 Lipid panel (procedure) [facility] 00:00:00 [code = 86800996] Medical Ce nter Future Scheduled 2024-02-[address] [facility] 00:00:00 Counseling and Screening Med ical Center (12+) [code = Tobacco Cessation Counseling and Screening (12+)] Future Scheduled 2024-02-[address] [facility] 00:00:00 Counseling and Screening Med ical Center (12+) [code = Tobacco Cessation Counseling and Screening (12+)] Future Scheduled 2024-02-[address] [facility] 00:00:00 Counseling and Screening Med ical Center (12+) [code = Tobacco Cessation Counseling and Screening (12+)] Future Scheduled 2024-02-[address] [facility] 00:00:00 Counseling and Screening Med ical Center (12+) [code = Tobacco Cessation Counseling and Screening (12+)] Future Scheduled 2024-02-[address] [facility] 00:00:00 Counseling and Screening Med ical Center (12+) [code = Tobacco Cessation Counseling and Screening (12+)] Future Scheduled 2024-01-01 Urine screening for [facility] 00:00:00 protein (procedure) [facility] [code = 099640147] Future Scheduled 2024-01-01 Urine screening for [facility] 00:00:00 protein (procedure) Medical Center [code = 732302929] Future Scheduled 2024-01-01 Urine screening for [facility] 00:00:00 protein (procedure) Medical Center [code = 610413728] Future Scheduled 2024-01-01 Urine screening for [facility] 00:00:00 protein (procedure) Medical Center [code = 003117944] Future Scheduled 2024-01-01 Urine screening for [facility] 00:00:00 protein (procedure) Medical Center [code = 722455748] Future Scheduled 2023-11-02 Screening for malignant [facility] 00:00:00 neoplasm of cervix Medical C enter (procedure) [code = 158384428] Future Scheduled 2023-11-02 Screening for malignant [facility] 00:00:00 neoplasm of cervix Medical C enter (procedure) [code = 339952991] Future Scheduled 2023-11-02 Screening for malignant [facility] 00:00:00 neoplasm of cervix Medical C enter (procedure) [code = 688345902] Future Scheduled 2023-11-02 Screening for malignant [facility] 00:00:00 neoplasm of cervix Medical C enter (procedure) [code = 812503924] Future Scheduled 2023-11-02 Screening for malignant [facility] 00:00:00 neoplasm of cervix Medical C enter (procedure) [code = 394052520] Future Scheduled 2023-05-24 Influenza Vaccine (#1) [facility] 00:00:00 [code = Influenza Medical Ce nter Vaccine (#1)] Future Scheduled 2023-05-24 Influenza Vaccine (#1) [facility] 00:00:00 [code = Influenza Medical Ce nter Vaccine (#1)] Future Scheduled 2023-05-24 Influenza Vaccine (#1) [facility] 00:00:00 [code = Influenza Medical Ce nter Vaccine (#1)] Future Scheduled 2023-05-24 Influenza Vaccine (#1) [facility] 00:00:00 [code = Influenza Medical Ce nter Vaccine (#1)] Future Scheduled 2023-02-[address] [facility] 00:[facility]:00 measurement (procedure) Medi li Center [code = 56409470] Future Scheduled 2023-02-[address] [facility] 00:00:00 measurement (procedure) Medi li Center [code = 87713306] Future Scheduled 2023-02-[address] [facility] 00:00:00 measurement (procedure) [facility] [code = 27858085] Future Scheduled 2023-02-[address] [facility] 00:00:00 measurement (procedure) [facility] [code = 48452669] Future Scheduled 2023-02-[address] [facility] 00:00:00 measurement (procedure) [facility] [code = 96810780] Future Scheduled 2022-10-24 Medicare IPPE (WELCOME [facility] 00:00:00 TO MEDICARE) [code = Medical Center Medicare IPPE (WELCOME TO MEDICARE)] Future Scheduled 2022-10-24 Medicare IPPE (WELCOME [facility] 00:00:00 TO MEDICARE) [code = Medical Center Medicare IPPE (WELCOME TO MEDICARE)] Future Scheduled 2022-10-24 Medicare IPPE (WELCOME [facility] 00:00:00 TO MEDICARE) [code = Medical Center Medicare IPPE (WELCOME TO MEDICARE)] Future Scheduled 2022-10-24 Medicare IPPE (WELCOME [facility] 00:00:00 TO MEDICARE) [code = Medical Center Medicare IPPE (WELCOME TO MEDICARE)] Future Scheduled 2022-10-24 Medicare IPPE (WELCOME [facility] 00:00:00 TO MEDICARE) [code = Medical Center Medicare IPPE (WELCOME TO MEDICARE)] Future Scheduled 2022-09-[address] [facility] 00:00:00 (12+) [code = DEPRESSION Med ical Center SCREENING (12+)] Future Scheduled 2022-09-[address] [facility] 00:00:00 (12+) [code = DEPRESSION Med ical Center SCREENING (12+)] Future Scheduled 2022-09-[address] [facility] 00:00:00 (12+) [code = DEPRESSION Med ical Center SCREENING (12+)] Future Scheduled 2022-09-[address] [facility] 00:00:00 (12+) [code = DEPRESSION Med ical Center SCREENING (12+)] Future Scheduled 2022-09-[address] [facility] 00:00:00 (12+) [code = DEPRESSION Med ical Center SCREENING (12+)] Future Scheduled 2022-01-18 COVID-19 VACCINE (4 - [facility] 00:00:00 Booster for Pfizer Medical C enter series) [code = COVID-19 VACCINE (4 - Booster for Pfizer series)] Future Scheduled 2022-01-18 COVID-19 VACCINE (4 - [facility] 00:00:00 Booster for Pfizer Medical C enter series) [code = COVID-19 VACCINE (4 - Booster for Pfizer series)] Future Scheduled 2022-01-18 COVID-19 VACCINE (4 - [facility] 00:00:00 Booster for Pfizer Medical C enter series) [code = COVID-19 VACCINE (4 - Booster for Pfizer series)] Future Scheduled 2022-01-18 COVID-19 VACCINE (4 - [facility] 00:00:00 Booster for Pfizer Medical C enter series) [code = COVID-19 VACCINE (4 - Booster for Pfizer series)] Future Scheduled 2022-01-18 COVID-19 VACCINE (4 - [facility] 00:00:00 Booster for Pfizer Medical C enter series) [code = COVID-19 VACCINE (4 - Booster for Pfizer series)] Diagnostic Test 2017-12-23 [UTP] Toxin [facility] Botox [facility]:00 [code = [UTP] Toxin - Botox] Future Scheduled 2016 SHINGLES VACCINES ([address] [facility] 00:00:00 2) [code = SHINGLES Medical Center VACCINES (1 of 2)] Future Scheduled 2016 SHINGLES VACCINES ([address] [facility] 00:00:00 2) [code = SHINGLES Medical Center VACCINES (1 of 2)] Future Scheduled 2016 SHINGLES VACCINES ([address] [facility] 00:00:00 2) [code = SHINGLES Medical Center VACCINES (1 of 2)] Future Scheduled 2016 SHINGLES VACCINES ([address] [facility] 00:00:00 2) [code = SHINGLES Medical Center VACCINES (1 of 2)] Future Scheduled 2016 SHINGLES VACCINES ([address] [facility] 00:00:00 2) [code = SHINGLES Medical Center VACCINES (1 of 2)] Future Scheduled 1985 DTAP/TDAP/TD VACCINES ([address] [facility] 00:00:00 - Tdap) [code = Medical Cent er DTAP/TDAP/TD VACCINES (1 - Tdap)] Future Scheduled 1985 DTAP/TDAP/TD VACCINES ([address] [facility] 00:00:00 - Tdap) [code = Medical Cent er DTAP/TDAP/TD VACCINES (1 - Tdap)] Future Scheduled 1985 DTAP/TDAP/TD VACCINES ([address] [facility] 00:00:00 - Tdap) [code = Medical Cent er DTAP/TDAP/TD VACCINES (1 - Tdap)] Future Scheduled 1985 DTAP/TDAP/TD VACCINES ([address] [facility] 00:00:00 - Tdap) [code = Medical Cent er DTAP/TDAP/TD VACCINES (1 - Tdap)] Future Scheduled 1985 DTAP/TDAP/TD VACCINES ([address] [facility] 00:00:00 - Tdap) [code = Medical Cent er DTAP/TDAP/TD VACCINES (1 - Tdap)] Future Scheduled 1984 HEPATITIS C SCREENING [facility] 00:00:00 [code = HEPATITIS C Medical Center SCREENING] Future Scheduled 1984 HEPATITIS C [facility]CRE[facility]ING [facility] 00:00:00 [code = HEPATITIS C Medical Center SCREENING] Future Scheduled 1984 HEPATITIS C [facility]CRE[facility]ING [facility] 00:00:00 [code = HEPATITIS C Medical Center SCREENING] Future Scheduled 1984 HEPATITIS C [facility]CRE[facility]ING [facility] 00:00:00 [code = HEPATITIS C Medical Center SCREENING] Future Scheduled 1984 HEPATITIS C [facility]CRE[facility]ING [facility] 00:00:00 [code = HEPATITIS C Medical Center SCREENING] Future Scheduled [address] [facility] 00:00:00 virus screening Medical Cent er (procedure) [code = 440355868] Future Scheduled [address] [facility] 00:00:00 virus screening Medical Cent er (procedure) [code = 288797970] Future Scheduled [address] [facility] 00:00:00 virus screening Medical Cent er (procedure) [code = 617075805] Future Scheduled [address] [facility] 00:00:00 virus screening Medical Cent er (procedure) [code = 704065819] Future Scheduled 1976 DIABETIC EYE EXAM [code [facility] 00:00:00 = DIABETIC EYE EXAM] Medical Center Future Scheduled [address] [facility] 00:[facility]00 examination Medical Center (regime/therapy) [code = 005684692] Future Scheduled 1976 DIABETIC EYE EXAM [code [facility] 00:00:00 = DIABETIC EYE EXAM] Medical Center Future Scheduled [address] [facility] 00:00:00 examination Medical Center (regime/therapy) [code = 845163354] Future Scheduled 1976 DIABETIC EYE EXAM [code [facility] 00:00:00 = DIABETIC EYE EXAM] Medical Center Future Scheduled [address] [facility] 00:00:00 examination Medical Center (regime/therapy) [code = 071074669] Future Scheduled 1976 DIABETIC EYE EXAM [code [facility] 00:00:00 = DIABETIC EYE EXAM] Medical Center Future Scheduled [address] [facility] 00:00:00 examination Medical Center (regime/therapy) [code = 684018907] Future Scheduled 1976 DIABETIC EYE EXAM [code [facility] 00:00:00 = DIABETIC EYE EXAM] Medical Center Future Scheduled [address] [facility] 00:00:00 examination Medical Center (regime/therapy) [code = 274264416] Future Scheduled 1966 Screening for malignant [facility] 00:00:00 neoplasm of breast Medical C enter (procedure) [code = 991962239] Future Scheduled 1966 CT Colonography (combo) [facility] 00:00:00 [code = CT Colonography [facility] (combo)] Future Scheduled 1966 Screening for malignant [facility] 00:00:00 neoplasm of colon Medical Ce nter (procedure) [code = 533876978] Future Scheduled 1966 Screening for malignant [facility] 00:00:00 neoplasm of colon Medical Ce nter (procedure) [code = 478633495] Future Scheduled 1966 Screening for malignant [facility] 00:00:00 neoplasm of colon Medical Ce nter (procedure) [code = 356040145] Future Scheduled 1966 Screening for malignant [facility] 00:00:00 neoplasm of colon Medical Ce nter (procedure) [code = 969603498] Future Scheduled 1966 Sigmoidoscopy [code = [facility] 00:[facility] Sigmoidoscopy] Medical Cente r Future Scheduled 1966 Screening for malignant [facility] 00:00:00 neoplasm of breast Medical C enter (procedure) [code = 893991779] Future Scheduled 1966 CT Colonography (combo) [facility] 00:00:00 [code = CT Colonography Medi li Center (combo)] Future Scheduled 1966 Screening for malignant [facility] 00:00:00 neoplasm of colon Medical Ce nter (procedure) [code = 455547535] Future Scheduled 1966 Screening for malignant [facility] 00:00:00 neoplasm of colon Medical Ce nter (procedure) [code = 717922698] Future Scheduled 1966 Screening for malignant [facility] 00:00:00 neoplasm of colon Medical Ce nter (procedure) [code = 174330026] Future Scheduled 1966 Screening for malignant [facility] 00:00:00 neoplasm of colon Medical Ce nter (procedure) [code = 615884876] Future Scheduled 1966 Sigmoidoscopy [code = [facility] 00:00:00 Sigmoidoscopy] Medical Jenaroe r Future Scheduled 1966 Screening for malignant [facility] 00:00:00 neoplasm of breast Medical C enter (procedure) [code = 894843393] Future Scheduled 1966 CT Colonography (combo) [facility] 00:00:00 [code = CT Colonography Medi li Center (combo)] Future Scheduled 1966 Screening for malignant [facility] 00:00:00 neoplasm of colon Medical Ce nter (procedure) [code = 726349103] Future Scheduled 1966 Screening for malignant [facility] 00:00:00 neoplasm of colon Medical Ce nter (procedure) [code = 762729254] Future Scheduled 1966 Screening for malignant [facility] 00:00:00 neoplasm of colon Medical Ce nter (procedure) [code = 761843997] Future Scheduled 1966 Screening for malignant [facility] 00:00:00 neoplasm of colon Medical Ce nter (procedure) [code = 157452126] Future Scheduled 1966 Sigmoidoscopy [code = [facility] 00:00:00 Sigmoidoscopy] Medical Cente r Future Scheduled 1966 Screening for malignant [facility] 00:00:00 neoplasm of breast Medical C enter (procedure) [code = 772310403] Future Scheduled 1966 CT Colonography (combo) [facility] 00:00:00 [code = CT Colonography Medi li Center (combo)] Future Scheduled 1966 Screening for malignant [facility] 00:00:00 neoplasm of colon Medical Ce nter (procedure) [code = 655828471] Future Scheduled 1966 Screening for malignant [facility] 00:00:00 neoplasm of colon Medical Ce nter (procedure) [code = 907900279] Future Scheduled 1966 Screening for malignant [facility] 00:00:00 neoplasm of colon Medical Ce nter (procedure) [code = 008289665] Future Scheduled 1966 Screening for malignant [facility] 00:00:00 neoplasm of colon Medical Ce nter (procedure) [code = 737986817] Future Scheduled 1966 Sigmoidoscopy [code = [facility] 00:00:00 Sigmoidoscopy] Medical Jenaroe r Future Scheduled 1966 Screening for malignant [facility] 00:00:00 neoplasm of breast Medical C enter (procedure) [code = 651223358] Future Scheduled 1966 CT Colonography (combo) [facility] 00:00:00 [code = CT Colonography Medi li Center (combo)] Future Scheduled 1966 Screening for malignant [facility] 00:00:00 neoplasm of colon Medical Ce nter (procedure) [code = 034281332] Future Scheduled 1966 Screening for malignant [facility] 00:00:00 neoplasm of colon Medical Ce nter (procedure) [code = 475388467] Future Scheduled 1966 Screening for malignant [facility] 00:00:00 neoplasm of colon Medical Ce nter (procedure) [code = 032055255] Future Scheduled 1966 Screening for malignant [facility] 00:00:00 neoplasm of colon Medical Ce nter (procedure) [code = 488580227] Future Scheduled 1966 Sigmoidoscopy [code = [facility] 00:00:00 Sigmoidoscopy] Medical Cente r Encounters Start End Encounter Admission Attending Care Care Encounter Source Date/Time Date/Time Type Type Clinicians Facility Department ID 2023-04-07 Outpatient [facility] [id number] [place] 07:28:18 [id number] [facility] 2023-04-06 Outpatient [facility] [id number] [place] 23:08:21 [id number] [facility] 2023-02-16 Outpatient 3 [facility] ENCPL CVA [id number] [facility] 14:03:30 [facility] [place] 2023-02-08 Outpatient 3 [id number] E[facility] REF [id number] [facility] 10:27:40 0519 [facility] [place] 2023-02-07 Outpatient 3 [id number] [facility] REF [id number] [facility] 16:04:00 0518 [facility] [place] 2023-01-09 Outpatient [facility] [id number] [place] 10:23:57 [id number] [facility] 2022-10-23 Outpatient [facility] [id number] [place] 08:05:04 [id number] [facility] 2022-08-30 Outpatient [facility] [id number] [place] 17:07:50 [id number] [facility] 2022-07-18 Outpatient [facility] [id number] [place] 08:34:38 [id number] [facility] 2022-07-17 Outpatient [facility] [id number] [place] 10:37:10 [id number] [facility] 2022-06-05 Outpatient [facility] [id number] [place] 08:43:28 [id number] [facility] 2022-06-01 Outpatient [facility] [id number] [place] 15:05:40 [id number] [facility] 2021-07-24 Emergency [facility] [id number] [facility] [id number] Univers [facility]:08[facility]07[facility]20 Outpatient R CHARJANELDDIN [facility] SAIDA [id number] Univers 19:33:03 JOSE Meza [facility] 2021-07-20 Emergency [facility] [id number] Univers 11:49:02 [facility] 2023-08-16 2023-08-16 Outpatient MELINDA FERNANDEZ [id number] Melinda 10:15:00 10:15:00 JACKIE Seybol d 2023-07-09 2023-07-09 Outpatient PUMA KILLIAN MELINDA LEARY [id number] [place] 09:45:00 09:45:00 Seybol d 2023-07-08 2023-07-08 Outpatient MELINDA PRITCHETT [id number] [place] 08:30:00 08:30:00 SAMER Seybol d 2023-06-05 2023-06-05 Outpatient MELINDA MCKEON [id number] [place] 11:00:00 11:00:00 PÉREZ Seybol d 2023-05-28 2023-05-28 Outpatient R [facility] [id number] Univers 13:00:00 13:00:00 [facility] 2023-05-23 2023-05-23 [id number] Univers 13:00:00 13:00:00 [facility] 2023-05-22 2023-05-22 Outpatient R ROLF [facility] [id number] Univers 13:00:00 13:00:00 [facility] 2023-05-22 2023-05-22 Outpatient MELINDA FERNANDEZ [id number] [place] 00:00:00 00:00:00 JACKIE Seybol d 2023-05-22 2023-05-22 Outpatient MELINDA HERNANDEZ [id number] [place] 00:00:00 00:00:00 MARÍA Seybol d 2023-05-21 2023-05-21 Outpatient MELINDA FERNANDEZ [id number] [place] 00:00:00 00:00:00 JACKIE Seybol d 2023-05-20 2023-05-20 Outpatient MELINDA LEARY [id number] [place] 14:45:00 14:45:00 Seybol d 2023-05-20 2023-05-20 Outpatient MELINDA LEARY [id number] [place] 12:45:00 12:45:00 Seybol d 2023-05-15 2023-05-15 Outpatient LAB90 MELINDA LEARY [id number] [place] 11:05:00 11:05:00 Seybol d 2023-05-15 2023-05-15 Outpatient MELINDA FERNANDEZ [id number] [place] 10:30:00 10:30:00 JACKIE Seybol d 2023-05-14 2023-05-14 Ancillary Jennifer Banks [facility] [id number] [facility] 13:00:00 14:20:08 Visit Rachele Bansal 350.1.13.10 ity of [place] [id number] Ca dical NAL 179 [facility] 2023-05-13 2023-05-13 Orders Doctor NANCY 1.2.840.114 [id number] Univers 00:00:00 00:00:00 Only Unassigned, MELANIE 350.1.13.10 ity of [place] [facility] 4.2.7.2.686 Matt as [id number] [address] 2023-05-10 2023-05-10 Outpatient LAB90 MELINDA LEARY [id number] [place] 09:25:00 09:25:00 Seybol d 2023-05-10 2023-05-10 Outpatient MELINDA HERNANDEZ [id number] [place] 00:00:00 00:00:00 MARÍA Seybol d 2023-05-08 2023-05-08 Outpatient MELINDA ESTRELLA [id number] [place] 14:00:00 14:00:00 ANGELITO Seybo ld 2023-05-08 2023-05-08 Outpatient LAB39 MELINDA LEARY [id number] [place] 12:20:00 12:20:00 Seybol d 2023-05-07 2023-05-07 Outpatient MELINDA HERNANDEZ [id number] [place] 11:00:00 11:00:00 MARÍA Seybol d 2023-05-07 2023-05-07 Outpatient [facility] MELINDA LEARY [id number] [place] 00:00:00 00:00:00 JAZLYN ALMENDAREZ Se 2023-05-06 2023-05-06 Outpatient MELINDA LEARY [id number] [place] 08:00:00 08:00:00 Seybol d 2023-04-30 2023-04-30 Outpatient MELINDA LUCIA [id number] [place] 00:00:00 00:00:00 ABAD Seybol d 2023-04-23 2023-04-23 Outpatient PREMELINDA PERES [id number] [place] 00:00:00 00:00:00 JACKIE Seybol d 2023-04-22 2023-04-22 Outpatient MELINDA FERNANDEZ [id number] [place] 00:00:00 00:00:00 JACKIE Seybol d 2023-04-12 2023-04-12 Outpatient MELINDA FERNANDEZ [id number] [place] 00:00:00 00:00:00 JACKIE Seybol d 2023-04-11 2023-04-11 Outpatient MELINDA FERNANDEZ [id number] [place] 00:00:00 00:00:00 JACKIE Seybol d 2023-04-10 2023-04-10 Outpatient MELINDA FERNANDEZ [id number] [place] 11:30:00 11:30:00 JACKIE Seybol d 2023-04-10 2023-04-10 Outpatient MELINDA FERNANDEZ [id number] [place] 00:00:00 00:00:00 JACKIE Seybol d 2023-04-10 2023-04-10 Orders Doctor NANCY 1.2.840.114 [id number] Univers 00:00:00 00:00:00 Only Unassigned, MELANIE 350.1.13.10 ity of [place] [facility] 4.2.7.2.686 Matt as [id number] [facility] li [address] 2023-04-04 2023-04-04 Outpatient MELINDA HERNANDEZ [id number] [place] 08:30:00 08:30:00 MARÍA Seybol d 2023-04-02 2023-04-02 Outpatient PREZAS, MELINDA LEARY [id number] [place] 00:00:00 00:00:00 JACKIE Seybol d 2023-04-01 2023-04-01 Outpatient LAB90 MELINDA LEARY [id number] [place] 15:25:00 15:25:00 Seybol d 2023-03-28 2023-03-28 Outpatient PREZAS, MELINDA LEARY [id number] [place] 00:00:00 00:00:00 JACKIE Seybol d 2023-03-27 2023-03-27 Outpatient PREZAS, MELINDA LEARY [id number] [place] 16:00:00 16:00:00 JACKIE Seybol d 2023-03-24 2023-03-24 Outpatient PREZAS, MELINDA LEARY [id number] [place] 00:00:00 00:00:00 JACKIE Seybol d 2023-03-19 2023-03-19 Outpatient CRISTO, MELINDA LEARY [id number] [place] 10:45:00 10:45:00 KENA Seybol d 2023-03-18 2023-03-18 Outpatient PREZAS, MELINDA LEARY [id number] [place] 00:00:00 00:00:00 JACKIE Seybol d 2023-03-14 2023-03-14 Outpatient PREZAS, MELINDA LEARY [id number] [place] 00:00:00 00:00:00 JACKIE Seybol d 2023-03-14 2023-03-14 Outpatient PREZAS, MELINDA LEARY [id number] [place] 00:00:00 00:00:00 JACKIE Seybol d 2023-03-13 2023-03-13 Outpatient PREZAS, MELINDA LEARY [id number] [place] 16:15:00 16:15:00 JACKIE Seybol d 2023-03-13 2023-03-13 Outpatient LAB90 MELINDA LEARY [id number] [place] 10:25:00 10:25:00 Seybol d 2023-03-11 2023-03-11 Outpatient PREZAS, MELINDA LEARY [id number] [place] 00:00:00 00:00:00 JACKIE Seybol d 2023-02-17 2023-03-04 Inpatient 3 [facility] ENCPL CVA [id number] [place]compa 08:33:00 11:16:[address] [facility] itation Chikis d 2023-03-01 2023-03-01 Outpatient [facility] [id number] [facility] 11:38:00 11:38:[address] [facility] 2023-02-25 2023-02-25 Outpatient PAUL ASHTON [id number] [place] 09:40:00 09:40:00 Seybol d 2023-02-22 2023-02-22 Outpatient MELINDA NAVA [id number] [place] 16:00:00 16:00:00 KAMILLA Seybol d 2023-02-21 2023-02-21 Outpatient MILAGROS HARMON [id number] [place] 11:00:00 11:00:00 Seybol d 2023-02-21 2023-02-21 Outpatient MELINDA TREJO [id number] [place] 08:00:00 08:00:00 BLADIMIR Seybol d 2023-02-19 2023-02-19 Outpatient MELINDA FERNANDEZ [id number] [place] 16:30:00 16:30:00 JACKIE Seybol d 2023-02-15 2023-02-15 Outpatient MELINDA MOREAU [id number] [place] 00:00:00 00:00:00 MINDY Seybol d 2023-02-14 2023-02-14 Outpatient MELINDA FERNANDEZ [id number] [place] 14:00:00 14:00:00 JACKIE Seybol d 2023-02-14 2023-02-14 Outpatient MELINDA FERNANDEZ [id number] [place] 00:00:00 00:00:00 JACKIE Seybol d 2023-02-14 2023-02-14 Outpatient MELINDA FERNANDEZ [id number] [place] 00:00:00 00:00:00 JACKIE Seybol d 2023-02-04 2023-02-13 Inpatient ER [facility] Neurology [id number] SLE 22:45:00 19:06:00 [facility] 2023-02-04 2023-02-13 [facility] Lico Humphrey [facility] [id number] 22:45:00 19:06:00 Encounter Yuriy Arizmendityshawn Herman [facility] 2023-02-04 2023-02-13 [facility] [id number] 22:45:00 19:06:00 Encounter Dexter Arizmendi [facility] 2023-02-13 2023-02-13 Outpatient MELINDA NAVA [id number] [place] 00:00:00 00:00:00 KAMILLA Snyderol sunni 2023-02-13 2023-02-13 Outpatient MELINDA MOREAU [id number] [place] 00:00:00 00:00:00 MINDY Seybol d 2023-02-08 2023-02-08 Jossy Mathis [facility] 1.2.840.114 [id number] Univers 00:00:00 00:00:00 Rj ROBERTSON 350.1.13.10 anh [facility] 4.2.7.2.686 Anibal BUNCH [id number] [address] 2023-02-06 2023-02-06 Outpatient MELINDA MOREAU [id number] [place] 00:00:00 00:00:00 MINDY Seybol d 2023-02-05 2023-02-05 Outpatient MELINDA FERNANDEZ [id number] [place] 00:00:00 00:00:00 JACKIE Seybol d 2023-02-04 2023-02-04 Outpatient MELINDA FERNANDEZ [id number] [place] 00:00:00 00:00:00 JACKIE Seybol d 2023-02-04 2023-02-04 [facility] [id number] 00:00:00 00:00:00 Only [facility] 2023-02-04 2023-02-04 Travel [facility] [id number] [facility] 00:[facility] 00:00:00 [facility] 2023-02-04 2023-02-04 Orders [facility] [id number] 00:00:00 00:00:00 Only [facility] 2023-02-04 2023-02-04 Travel [facility] [id number] [facility] 00:[facility] 00:00:00 [facility] 2023-02-01 2023-02-01 Outpatient MELINDA FERNANDEZ [id number] [place] 00:00:00 00:00:00 JACKIE moeller 2023-02-01 2023-02-01 Outpatient MELINDA JO [id number] [place] 00:00:00 00:00:00 MAYLIN moeller 2023-01-31 2023-01-31 [facility] [id number] [facility] 13:00:00 13:00:00 RACHELE ashraf [facility] 2023-01-24 2023-01-24 Ancillary Caitlin Valles [facility] 1.2.84 0.114 [id number] [facility] 10:15:00 11:10:26 Visit Rachele Bansal 350.1.13.10 ity of [place] 4.2.7.2.686 Anibal BUNCH [id number] [address] 2023-01-23 2023-01-23 Office Chidi, UTP 6410 1.2.840.114 [id number] [place] 09:00:00 09:48:51 Visit Coleen TRAVIS 350.1.13.58 [facility] 9.2.7.2.686 [id number] 2023-01-23 2023-01-23 Orders Doctor CRUZ 1.2.840.114 [id number] Univers 00:00:00 00:00:00 Only UnassignedMELANIE 350.1.13.10 ity of [facility] 4.2.7.2.686 Matt as [id number] [address] 2023-01-17 2023-01-17 Ancillary HaiCaitlin Alberto [facility] 1.2.84 0.114 [id number] Univers 09:30:00 10:23:52 Visit Rj Mccord 350.1.13.10 ity of [place] [facility] [place].2.[place] [id number] Ca dical NAL 178 [facility] 2023-01-15 2023-01-15 Outpatient R [facility] [id number] Univers 13:30:00 13:58:49 LOVELACE-BARBIE, ANGEL ity [facility] 2023-01-15 2023-01-15 Office Anna-Mony [facility] 1.2.840.114 [id number] [facility] 13:30:00 13:58:49 Visit Angel urbina 350.1.13.10 it[place] of [place] [id number] Ca dical NAL 134 [facility] 2023-01-07 2023-01-07 Ancillary HaiRosarioCaitlin A [place] 1.2.84 0.114 [id number] Univers 13:45:00 14:34:35 Visit Rachele Bansal 350.1.13.10 it[place] of [place] [id number] Ca dical NAL 178 [facility] 2023-01-02 2023-01-02 [facility] 1.2.840.114 1 [id number] Univers 00:00:00 00:00:00 Jovita ROBERTSON 350.1.13.10 i ty of [place] [id number] Ca dical NAL 044 [facility] 2022-12-31 2022-12-31 Outpatient LAB90 MELINDA LEARY [id number] [place] 10:30:00 10:30:00 Seybol d 2022-12-31 2022-12-31 Outpatient MELINDA FERNANDEZ [id number] [place] 09:30:00 09:30:00 JACKIE Seybol d 2022-12-27 2022-12-27 [facility] 1.2.840.114 [id number] Univers 00:00:00 00:00:00 Mann SATISH 350.1.13.10 ity of [place] [facility] [place].2.[place] [id number] Ca dical NAL 231 [facility] 2022-12-27 2022-12-27 [facility] 1.2.840.114 [id number] Univers 00:00:00 00:00:00 Rj ROBERTSON 350.1.13.10 ity of [place] [id number] Ca dical NAL 231 [facility] 2022-12-26 2022-12-26 Outpatient Dg BANSAL [facility] [id number] Univers 13:00:00 13:00:00 [facility]22-12-20 2022-12-20 Out[facility] Dg [facility] [id number] Univers 11:00:00 11:51:42 RACHELE [facility] 2022-12-20 2022-12-20 Ancillary Caitiln Valles [facility] 1.2.84 0.114 [id number] Univers 11:00:00 11:51:42 Visit Rachele Bansal 350.1.13.10 ity of [place] [id number] Ca dicga NAL 178 [facility] 2022-12-17 2022-12-17 Outpatient PAUL ASHTON [id number] [place] 11:00:00 11:00:00 Seybol d 2022-12-17 2022-12-17 Outpatient PAUL ASHTON [id number] [place] 10:20:00 10:20:00 Seybol d 2022-12-13 2022-12-13 [facility] D[facility] [id number] Univers 13:00:00 14:00:02 RACHELE ity [facility] 2022-12-13 2022-12-13 Ancillary Caitlin Valles [facility] 1.2.84 0.114 [id number] Univers 13:00:00 14:00:02 Visit Rolf Rachele Georgie ROBERTSON 350.1.13.10 ity of [place] [id number] Ca dical NAL 178 [facility] 2022-12-13 2022-12-13 Orders Doctor NANCY 1.2.840.114 [id number] Univers 00:00:00 00:00:00 Only Unassigned, MELANIE 350.1.13.10 ity of [facility] 4.2.7.2.686 Matt as [id number] [address] 2022-12-13 2022-12-13 [facility] 1.2.840.114 [id number] Univers 00:00:00 00:00:00 Rj ROBERTSON 350.1.13.10 ity of [place] [id number] Ca dical [facility] 231 [facility] 2022-12-11 2022-12-11 Outpatient Dg MCCORD, [facility] [id number] Univers 11:00:00 11:00:00 RJ andriy [facility] 2022-12-05 2022-12-05 Outpatient MELINDA NAVA [id number] [place] 14:00:00 14:00:00 KAMILLA Snyderol sunni 2022-12-05 2022-12-05 Outpatient PAUL ASHTON [id number] [place] 00:00:00 00:00:00 Seybol d 2022-11-26 2022-11-26 Outpatient PAUL ASHTON [id number] [place] 09:50:00 09:50:00 Seybol d 2022-11-26 2022-11-26 Outpatient MELINDA LEARY [id number] [place] 09:00:00 09:00:00 Seybol d 2022-11-26 2022-11-26 Outpatient PAUL ASHTON [id number] [place] 00:00:00 00:00:00 Seybol d 2022-11-15 2022-11-15 Outpatient JEY MELINDA MELINDA [id number] [place] 09:30:00 09:30:00 DANY Seybol d 2022-11-15 2022-11-15 Outpatient CYRIL FERNANDEZDARLYN LEARY [id number] 26 [place] 00:00:00 00:00:00 JACKIE Seybol d 2022-11-12 2022-11-12 Ancillary Caitlin Valles [facility] 1.2.84 0.114 [id number] Univers 13:45:00 14:30:00 Visit Rachele Bansal 350.1.13.10 ity [facility] [place] [id number] Ca dical NAL 178 [facility] 2022-11-09 2022-11-09 Outpatient R MORGAN [facility] [id number] Univers 13:00:00 13:00:00 JOVITA [facility] 2022-11-06 2022-11-06 Ancillary GarrettCaitlin Vilma [facility] 1.2.840 .114 [id number] Univers 13:00:00 13:36:46 Visit Rachele Bansal 350.1.13.10 [facility] [place].2.[place] [id number] Ca dical NAL 179 [facility] 2022-11-06 2022-11-06 Outpatient R SURI [facility] [id number] Univers 10:00:00 10:50:22 RJ ashraf [facility] 2022-11-06 2022-11-06 [facility] 1.2.275.532 [id number] Univers 10:00:00 10:50:22 Visit Rj ROBERTSON 350.1.13.10 i ty [facility] 4[place].2.[place] [id number] Ca dical NAL 134 [facility] 2022-11-05 2022-11-05 Nicholas Valles [facility] 1.2.840.114 [id number] Univers 00:00:00 00:00:00 Management Caitlin Domingeuz SATISH 350.1.13.10 ity of [place] [id number] Ca dical NAL 178 [facility] 2022-11-01 2022-11-01 Outpatient R ROLF [facility] [id number] Univers 13:45:00 14:26:45 RACHELE itanh [facility] 2022-11-01 2022-11-01 Ancillary Kena Tucker [facility] 1.2.840. 114 [id number] Univers 13:45:00 14:26:45 Visit Bansal, Rachele Georgie SATISH 350.1.13.10 ity of [place] [facility] 4.2.7.2.[place] [id number] Ca dical NAL 179 [facility] 2022-11-01 2022-11-01 [facility] [id number] Univers 13:00:00 13:55:47 RACHELE itanh [facility] 2022-11-01 2022-11-01 Ancillary Hai Caitlin Dominguez [facility] 1.2.84 0.114 [id number] Univers 13:00:00 13:55:47 Visit Rachele Bansal 350.1.13.10 ity of [place] [facility] 4.[place].2.[place] [id number] Ca dical NAL 178 [facility] 2022-10-29 2022-10-29 Outpatient MELINDA FERNANDEZ [id number] [place] 15:15:00 15:15:00 JACKIE moeller 2022-10-23 2022-10-23 Office Chidi, LUCIAN 6410 1.2.840.114 [id number] [place] 09:00:00 10:20:53 Visit Coleen TRAVIS 350.1.13.58 [facility] 9.2.7.2.686 [id number] 2022-10-23 2022-10-23 Telephone Leanne [facility] 1.2.840.114 [id number] Univers 00:00:00 00:00:00 Mann ROBERTSON 350.1.13.10 ity of [place].2.[place] [id number] Ca dical NAL 044 [facility] 2022-10-22 2022-10-22 Outpatient R ROLF [facility] [id number] Univers 13:00:00 14:11:33 RACHELE ity of [facility] 2022-10-22 2022-10-22 Ancillary Caitlin Valles [facility] 1.2.84 0.114 [id number] [facility] 13:00:00 14:11:33 Visit Rachele Bansal 350.1.13.10 ity of [place] [id number] Ca dical NAL 178 [facility] 2022-10-16 2022-10-16 Refbuffy Perdomo [facility] 1.2.840.114 [id number] Univers 00:00:00 00:00:00 Mann ROBERTSON 350.1.13.10 ity of [place].2.[place] [id number] Ca dical NAL 044 [facility] 2022-10-15 2022-10-15 Ancillary Caitlin Valles [facility] 1.2.84 0.114 [id number] [facility] 13:00:00 13:45:00 Visit Rachele Bansal 350.1.13.10 ity of [place].2.[place] [id number] Ca dical NAL 178 [facility] 2022-10-03 2022-10-03 Ancillary Caitlin Valles [facility] 1.2.84 0.114 [id number] Univers 08:00:00 08:46:55 Visit Rachele Bansal 350.1.13.10 ity of [place] 4[place].2.[place] [id number] Ca dical NAL 178 [facility] 2022-10-02 2022-10-02 Outpatient MELINDA FERNANDEZ [id number] [place] 13:30:00 13:30:00 JACKIE moeller 2022-10-02 2022-10-02 Ancillary Jennifer Shah [facility] 1.2.840. 114 [id number] Univers 08:15:00 08:58:26 Visit Rachele Bansal [place] 350.1.13.10 ity of [place].2.[place] [id number] Ca dical NAL 179 [facility] 2022-09-27 2022-09-27 Outpatient R BANSAL, [facility] [id number] Univers 08:45:00 09:52:22 RACHELE ity of [facility] 2022-09-27 2022-09-27 Ancillary Caitlin Valles [facility] 1.2.84 0.114 [id number] [facility] 08:45:00 09:52:22 Visit Rachele Bansal SATISH 350.1.13.10 ity of [place].2.[place] [id number] Ca dical NAL 178 [facility] 2022-09-27 2022-09-27 Ancillary Caitlin Tucker [facility] 1.2.840 .114 [id number] [facility] 08:00:00 09:01:55 Visit Rachele Bansal SATISH 350.1.13.10 ity of [place].2.[place] [id number] Ca dical NAL 179 [facility] 2022-09-25 2022-09-25 Outpatient MELINDA FERNANDEZ [id number] 60 [place] 13:45:00 13:45:00 JACKIE moeller 2022-09-19 2022-09-19 Outpatient R ROLF [facility] [id number] Univers 11:00:00 11:30:21 RACHELE ity of [facility] 2022-09-19 2022-09-19 Ancillary Caitlin Tucker [facility] 1.2.840 .114 [id number] [facility] 11:00:00 11:30:21 Visit Rachele Bansal SATISH 350.1.13.10 ity of [place].2.[place] [id number] Ca dical NAL 179 [facility] 2022-09-19 2022-09-19 Ancillary Caitlin Valles [facility] 1.2.84 0.114 [id number] Univers 10:15:00 11:04:55 Visit Rachele Bansal 350.1.13.10 it[place] of [place] [id number] Ca dical NAL 178 [facility] 2022-09-10 2022-09-10 Outpatient R [facility] [id number] Univers 09:00:00 09:00:00 ity [facility] 2022-09-10 2022-09-10 Seismometer Operator 2, Adc Lab [facility] 1.2.840.114 [id number] Univers 08:45:00 09:00:00 Visit Jovita Mora 350.1.13.10 ity of [place] [facility] [place].2.[place] [id number] [facility] 353 [facility] 2022-09-10 2022-09-10 Outpatient R MORGAN [facility] [id number] Univers 08:45:00 08:45:00 JOVITA ity [facility] 2022-09-05 2022-09-05 Outpatient R [facility] [id number] Univers 08:20:00 08:20:00 ity [facility] 2022-09-04 2022-09-04 [facility] [id number] Univers 10:15:00 10:49:20 RACHELE [facility] 2022-09-04 2022-09-04 Ancillary Caitlin Valles [facility] 1.2.84 0.114 [id number] Univers 10:15:00 10:49:20 Visit Rachele Bansal 350.1.13.10 ity of [place] [id number] Ca dical NAL 178 [facility] 2022-09-04 2022-09-04 Ancillary ShahJennifer mcdermott Kiesha [facility] 1.2.840. 114 [id number] Univers 09:15:00 10:00:00 Visit Rachele Bansal 350.1.13.10 ity of [place] [id number] Me dical NAL 179 [facility] 2022-08-30 2022-08-30 Ancillary Caitlin Tucker [facility] 1.2.840 .114 [id number] Univers 10:15:00 11:00:00 Visit Rachele Bansal 350.1.13.10 ity of [place] [id number] Ca dical NAL 179 [facility] 2022-08-30 2022-08-30 Ancillary Caitlin Valles [facility] 1.2.84 0.114 [id number] Univers 09:30:00 10:25:45 Visit Rachele Bansal 350.1.13.10 ity of [place] [id number] Ca dical NAL 178 [facility] 2022-08-30 2022-08-30 Telephone Leanne ALELLA 1.2.840.114 [id number] [facility] 00:00:00 00:00:00 Mann ROBERTSON 350.1.13.10 ity of [place] [id number] Ca dical NAL 044 [facility] 2022-08-28 2022-08-28 Ancillary Caitlin Valles [facility] 1.2.84 0.114 [id number] [facility] 15:15:00 16:03:50 Visit Rachele Bansal 350.1.13.10 it[place] [id number] Ca dical NAL 178 [facility] 2022-08-27 2022-08-27 Ancillary Jennifer Shah Kiesha [facility] 1.2.840. 114 [id number] Univers 13:00:00 13:46:59 Visit Rachele Bansal 350.1.13.10 [place] [id number] Ca dical NAL 179 [facility] 2022-08-23 2022-08-23 Telephone NATE Perdomo 1.2.840.114 [id number] [facility] 00:00:00 00:00:00 Mann ROBERTSON 350.1.13.10 [place] of [place] [facility] [place] [phone] Ca dical NAL 044 [facility] 2022-08-23 2022-08-23 [facility] [place] 1.2.258.390 [id number] [facility] 00:00:00 00:00:00 Danny ROBERTSON 350.1.13.10 ity of [place] [facility] [place] [id number] Ca dical NAL 059 [facility] 2022-08-22 2022-08-22 Outpatient R MANN PERDOMO [facility] [id number] [facility] 07:54:51 23:59:00 MANN PERDOMO ity [facility] 2022-08-22 2022-08-22 [facility] [id number] [id number] [facility] 07:54:51 23:59:00 Encounter Mann ROBERTSON 350.1.13.10 [place] [id number] [address] 2022-08-21 2022-08-21 Outpatient R ROLF [facility] [id number] Univers 15:00:00 16:15:45 RACHELE ashraf [facility] 2022-08-21 2022-08-21 Ancillary Caitlin Valles [facility] 1.2.84 0.114 [id number] Univers 15:00:00 16:15:45 Visit Rachele Bansal 350.1.13.10 it[place] [id number] Ca dical NAL 178 [facility] 2022-08-21 2022-08-21 Outpatient R ROLF [facility] [id number] Univers 14:00:00 14:53:11 RACHELE ashraf [facility] 2022-08-21 2022-08-21 Ancillary Jennifer Shah [facility] 1.2.840. 114 [id number] Univers 14:00:00 14:53:11 Visit Rachele Bansal Georgie ROBERTSON 350.1.13.10 ity of [place] [facility] [place] [id number] Ca dical NAL 179 [facility] 2022-08-10 2022-08-10 Outpatient R MORIAH, [facility] [id number] Univers 14:41:51 23:59:00 DANNY ashraf o f [facility] 2022-08-08 2022-08-08 Outpatient R MANN PERDOMO [facility] [id number] Univers 11:30:00 12:27:59 [facility] 2022-08-08 Office Leanne [facility] 1.2.840.114 [id number] Univers 11:30:00 12:27:59 Visit Mann ROBERTSON 350.1.13.10 ity [facility] [place] [id number] Ca krissal NAL 044 [facility] 2022-07-30 2022-07-30 Outpatient R ROLF [facility] [id number] Univers 13:00:00 13:00:00 RACHELE [facility] 2022-07-24 2022-07-24 Outpatient R MORIAH [facility] [id number] Univers 15:00:00 15:57:01 DANNY miranda [facility] 2022-07-24 2022-07-24 [facility] 1.2.840.114 [id number] Univers 15:00:00 15:57:01 Visit Danny ROBERTSON 350.1.13.10 ity [place] [facility] [place] [id number] Ca dical NAL 059 [facility] 2022-07-20 2022-07-20 Outpatient R MANN PERDOMO [facility] [id number] Univers 14:00:00 14:48:31 MANN PERDOMO ity [facility] 2022-07-20 2022-07-20 Office Leanne [facility] 1.2.840.114 [id number] [facility] 14:00:00 14:48:31 Visit Mann SATISH 350.1.13.10 ity of [place] [facility] [place] [id number] [facility] 044 [facility] 2022-07-18 2022-07-18 Office LUCIAN Murillo 6410 1.2.840.114 [id number] [place] 09:00:00 10:12:46 Visit Coleen TRAVIS 350.1.13.58 Health 9.2.7.2.686 [id number] 2022-07-18 2022-07-18 Telephone [facility] 1.2.840.114 9 [id number] [facility] 00:00:00 00:00:00 Rj Alberto SATISH 350.1.13.10 ity of [place] [id number] [facility] 231 [facility] 2022-07-13 2022-07-13 Telephone [facility] 1.2.840.114 9 [id number] [facility] 00:00:00 00:00:00 Rj A SATISH 350.1.13.10 ity of [place] [id number] [address] 2022-07-11 2022-07-11 Outpatient R VINCENZO [facility] [id number] Univers 08:12:35 23:59:00 BRYANT ity of [facility] 2022-07-11 2022-07-11 [facility] 1.2.840.114 [id number] [facility] 08:12:35 23:59:00 Encounter Bryant ROBERTSON 350.1.13.10 ity of [place] [facility] [place].2.7.2.[place] [id number] [address] 2022-07-03 2022-07-03 Orders Doctor CRUZ 1.2.840.114 [id number] Univers 00:00:00 00:00:00 Only Unassigned, MELANIE 350.1.13.10 ity of [place] [facility] 4.2.7.2.686 Matt as [id number] [address] 2022-06-28 2022-06-[address] [facility] 1.2.840.114 9 [id number] Univers 00:00:00 00:00:00 Rj A [place] 350.1.13.10 ity of [place] 4.[place] [id number] Ca dical [facility] 231 [facility] 2022-06-27 2022-06-27 [facility] 1.2.840.114 9 [id number] Univers 00:00:00 00:00:00 Rj A [place] 350.1.13.10 ity of [place] 4.[place].2.[place] [id number] Ca dical [facility] 044 [facility] 2022-06-25 2022-06-[address] [facility] 1.2.840.114 [id number] Univers 00:00:00 00:00:00 Rj A [place] 350.1.13.10 ity of [place] 4.[place].2.[place] [id number] Ca dic[address] 2022-06-25 2022-06-25 Orders Doctor CRUZ 1.2.840.114 [id number] Univers 00:00:00 00:00:00 Only Unassigned, MELANIE 350.1.13.10 ity of [place] [facility] 4.2.7.2.686 Matt as [id number] [address] 2022-06-15 2022-06-15 Outpatient R MANN PERDOMO [facility] [id number] Univers 11:00:00 12:27:45 MANN PERDOMO ity of [facility] 2022-06-15 2022-06-15 Office Leanne [facility] 1.2.840.114 [id number] Univers 11:00:00 12:27:45 Visit Mann ROBERTSON 350.1.13.10 ity of [place] [facility] 4.2.7.2.[place] [id number] [facility] 044 [facility] 2022-06-15 2022-06-15 Telephone Mathis, [facility] 1.2.840.114 9 [id number] Univers 00:00:00 00:00:00 Rj ROBERTSON 350.1.13.10 ity of [place] [facility] 4.2.7.2.[place] [id number] [facility] 231 [facility] 2022-06-14 2022-06-14 Telephone [facility] 1.2.840.114 9 [id number] Univers 00:00:00 00:00:00 Rj ROBERTSON 350.1.13.10 ity of [place] [id number] [address] 2022-06-14 2022-06-14 [facility]phone [facility] 1.2.840.114 [id number] Univers 00:00:00 00:00:00 Rj ROBERTSON 350.1.13.10 ity of [place] [facility] 4.2.[place].2.[place] [id number] [facility] 231 [facility] 2022-06-13 2022-06-13 Orders Doctor NANCY 1.2.840.114 [id number] Univers 00:00:00 00:00:00 Only Unassigned, MELANIE 350.1.13.10 ity of [place] [facility] 4.2.7.2.686 Matt as [id number] [address] 2022-06-11 2022-06-11 Telephone Leanne ALELLA 1.2.840.114 [id number] Univers 00:00:00 00:00:00 Mann ROBERTSON 350.1.13.10 ity of [place] [facility] 4.2.[place].2.[place] [id number] [address] 2022-06-08 2022-06-08 Outpatient R MANN PERDOMO [facility] [id number] Univers 15:00:00 15:28:32 MANN PERDOMO ity of [facility] 2022-06-08 2022-06-08 Office Leanne [facility] 1.2.840.114 [id number] Univers 15:00:00 15:28:32 Visit Mann ROBERTSON 350.1.13.10 ity of [place] 4.2.[place].2.[place] [id number] [facility] 044 [facility] 2022-06-06 2022-06-06 Orders Doctor NANCY 1.2.840.114 [id number] Univers 00:00:00 00:00:00 Only Unassigned, MELANIE 350.1.13.10 ity of [place] [facility] 4.2.7.2.686 Matt as [id number] [facility] [address] 2022-06-05 2022-06-05 Outpatient [facility] [id number] 28 [place] 13:00:00 13:00:00 [facility] 2022-05-31 2022-05-31 Telephone [facility] 1.2.840.114 [id number] Univers 00:00:00 00:00:00 Rj ROBERTSON 350.1.13.10 ity of [place] 4[place].2.[place] [id number] [address] 2022-05-29 2022-05-29 Outpatient R MANN PERDOMO [facility] [id number] Univers 07:46:51 23:59:00 MANN PERDOMO ity of [facility] 2022-05-29 2022-05-29 [facility] 1.2.955.652 [id number] Univers 07:46:51 23:59:00 Encounter Mann ROBERTSON 350.1.13.10 ity [place].2.7.2.[place] [id number] [facility] [address] 2022-05-29 2022-05-29 Outpatient R MANN PERDOMO [facility] [id number] Univers 00:00:00 00:00:00 LEANNEJESUSITA CARMENMaeAzul [facility]22-05-25 2022-05-25 Telephone [facility] 1.2.840.114 [id number] Univers 00:00:00 00:00:00 Rj ROBERTSON 350.1.13.10 ity of [place] 4[place].2.[place] [id number] [address] 2022-05-23 2022-05-23 Orders Doctor NANCY 1.2.840.114 [id number] Univers 00:00:00 00:00:00 Only Unassigned, MELANIE 350.1.13.10 ity of [place] [facility] 4.2.7.2.686 Matt as [id number] [address] 2022-05-22 2022-05-22 Outpatient R MANN PERDOMO [facility] [id number] Univers 11:00:00 11:54:20 MANN PERDOMO [facility] 2022-05-22 2022-05-22 Office Leanne [facility] 1.2.840.114 [id number] Univers 11:00:00 11:54:20 Visit Mann ROBERTSON 350.1.13.10 ity of [place] 4[place].2.[place] [id number] [facility] 044 [facility] 2022-05-21 2022-05-21 Telephone [facility] 1.2.840.114 [id number] Univers 00:00:00 00:00:00 Rj ROBERTSON 350.1.13.10 ity of [place].2.[place] [id number] [facility] 231 [facility] 2022-05-18 2022-05-18 Outpatient R [facility] 1041 [id number] Univers 16:20:00 17:41:58 RJ ity [facility] 2022-05-18 2022-05-18 Office [facility] 1.2.840.114 [id number] Univers 16:20:00 17:41:58 Visit Rj ROBERTSON 350.1.13.10 ity of [place] 4[place] [id number] [address] 2022-05-18 2022-05-18 Outpatient R [facility] 1041 [id number] Univers 16:20:00 17:41:58 RJ ity [facility] 2022-05-13 2022-05-13 Emergency X PAULA, K [facility] ERT [id number] Univers 00:20:00 03:20:00 ity [facility] 2022-05-13 2022-05-13 Emergency Paula, K [facility] 1.2.840.114 [id number] Univers 00:20:00 03:20:00 Berna ROBERTSON 350.1.13.10 i ty of [place] [id number] [address] 2022-04-25 2022-04-25 [facility]ill [facility] 1.2.840.114 [id number] Univers 00:00:00 00:00:00 Rj ROBERTSON 350.1.13.10 ity of [place] [facility] 4.2.7.2.[place] [id number] [address] 2022-04-24 2022-04-24 Office [facility] 1.2.840.114 [id number] Univers 16:20:00 17:34:17 Visit Rj ROBERTSON 350.1.13.10 ity of [place] [id number] [address] 2022-04-24 2022-04-24 Outpatient R [facility] 1041 [id number] Univers 16:20:00 17:34:17 RJ estebany [facility] 2022-04-24 2022-04-24 Outpatient R DEL, [facility] [id number] [id number] Univers 16:20:00 16:20:00 RJTOMAS ashraf [facility] 2022-04-24 2022-04-24 Outpatient R DEL [facility] [id number] [id number] Univers 16:20:00 16:20:00 RJ ity [facility] 2022-04-12 2022-04-12 Outpatient R DEL [facility] [id number] Univers 15:00:00 16:35:17 RJ ity [facility] 2022-04-12 2022-04-12 Outpatient R DEL [facility] [id number] Univers 15:00:00 16:35:17 RJ ity [facility] 2022-04-12 2022-04-12 Office Del [facility] 1.2.840.114 [id number] Univers 15:00:00 16:35:17 Visit Rj ROBERTSON 350.1.13.10 ity [facility] [place].2.[place] [id number] Ca mehnaz FERRARI 231 [facility] 2022-04-05 2022-04-05 Alla Ordonez [facility] 1.2.327.817 [id number] Univers 00:00:00 00:00:00 Bud SPECIALTY 350.1.13.10 [place] [id number] Ca mehnaz CUELLAR 253 [facility] 2022-04-04 2022-04-04 Outpatient Dg ORDONEZ [facility] [id number] Univers 11:00:00 11:00:00 BUD ashraf [facility] 2022-04-03 2022-04-03 Seismometer Operator 2, Adc Lab [facility] 1.2.840.114 [id number] Univers 11:15:00 11:30:00 Visit Rj Mathis 350.1. 13.10 ity of [place] [facility] 4.2.7.2.[place] [id number] Ca mehnaz NAL 353 [facility] 2022-04-03 2022-04-03 Outpatient R [facility] 1040 [id number] Univers 11:15:00 11:15:00 RJ ashraf [facility] 2022-04-02 2022-04-02 Office Mathis, [facility] 1.2.840.114 [id number] Univers 10:40:00 12:32:50 Visit Rj ROBERTSON 350.1.13.10 ity of [place] [facility] 4.2.7.2.[place] [id number] [address] 2022-04-02 2022-04-02 Outpatient R [facility] 1040 [id number] Univers 10:40:00 12:32:50 [facility] 2022-04-02 2022-04-02 Outpatient R [facility] 1040 [id number] Univers 10:40:00 10:40:00 RJ asharf [facility] 2022-04-02 2022-04-02 Outpatient R [facility] 1040 [id number] Univers 10:40:00 10:40:00 [facility] 2022-04-02 2022-04-02 Orders Doctor NANCY 1.2.840.114 [id number] Univers 00:00:00 00:00:00 Only Unassigned, MELANIE 350.1.13.10 ity of [place] [facility] 4.2.7.2.686 Matt as [id number] [address] 2022-03-20 2022-03-20 Orders Doctor CRUZ 1.2.840.114 [id number] Univers 00:00:00 00:00:00 Only Unassigned, MELANIE 350.1.13.10 ity of [place] [facility] 4.2.7.2.686 Matt as [id number] [address] 2022-03-07 2022-03-07 Telephone [facility] 1.2.840.114 9 [id number] Univers 00:00:00 00:00:00 Rj ROBERTSON 350.1.13.10 ity of [place] [facility] 4.2.7.2.[place] 768.7018448 Ca dic[address] 2022-02-16 2022-02-16 Outpatient R [facility] 1039 [id number] Univers 08:00:00 09:05:55 RJ [facility] 2022-02-16 2022-02-16 Office [facility] 1.2.840.114 [id number] Univers 08:00:00 09:05:55 Visit Rj ROBERTSON 350.1.13.10 ity [facility] 4[place]7.2.[place] [id number] [address] 2022-02-16 2022-02-16 Outpatient R [facility] 1039 [id number] Univers 08:00:00 09:05:55 [facility] 2022-02-16 2022-02-16 Outpatient R [facility] 1039 [id number] Univers 08:00:00 08:00:00 RJ [facility] 2022-01-15 2022-01-15 Outpatient R [facility] 1037 [id number] Univers 10:20:00 10:20:00 [facility] 2022-01-10 2022-01-10 Refill Mathis, [facility] 1.2.840.114 [id number] Univers 00:00:00 00:00:00 Rj ROBERTSON 350.1.13.10 ity [facility] 4[place]2.7.2.[place] [id number] [address] 2022-01-05 2022-01-05 Outpatient R [facility] 1038 [id number] Univers 11:20:00 13:14:07 [facility] 2022-01-05 2022-01-05 Office Mathis, [facility] 1.2.840.114 [id number] Univers 11:20:00 13:14:07 Visit Rj [facility] 350.1.13.10 [facility] [place] [id number] [address] 2021-11-29 2021-11-29 Outpatient R SURI [facility] [id number] Univers 10:24:14 23:59:00 RJ ity [facility] 2021-11-29 2021-11-29 [facility] 1.2.840.114 [id number] Univers 10:20:00 23:59:00 Encounter Rj ROBERTSON 350.1.13.10 it[place].7.2.[place] [id number] [facility] [address] 2021-11-27 2021-11-27 Hanna [facility] 1.2.840.114 [id number] Univers 00:00:00 00:00:00 Rj ROBERTSON 350.1.13.10 ity [facility] 4[place]2.7.2.[place] [id number] [address] 2021-11-24 2021-11-24 [facility] 1.2.840.114 [id number] Univers 00:00:00 00:00:00 Rj ROBERTSON 350.1.13.10 ity [facility] 4[place].2.[place] [id number] [address] 2021-11-23 2021-11-23 Outpatient Dg FERNÁNDEZ [facility] [id number] Univers 08:30:00 08:30:00 SHERRIE ity [facility] 2021-11-21 2021-11-21 Outpatient R ROLF [facility] [id number] Univers 14:15:00 14:15:00 [facility] 2021-11-10 2021-11-10 Orders Doctor CRUZ 1.2.840.114 [id number] Univers 00:00:00 00:00:00 Only Unassigned, MELANIE 350.1.13.10 ity of [place] [facility] 4.2.7.2.686 Matt as [id number] [address] 2021-11-08 2021-11-08 Telephone Del [facility] 1.2.840.114 [id number] Univers 00:00:00 00:00:00 Rj Alberto ROBERTSON 350.1.13.10 it[place] 236.9035249 [facility] 231 [facility] 2021-11-07 2021-11-07 Office Leanne [facility] 1.2.840.114 [id number] Univers 11:30:00 12:16:38 Visit Mann ROBERTSON 350.1.13.10 ity [place] 4[place].2.[place] [id number] Ca [facility] 044 [facility] 2021-11-07 2021-11-07 Outpatient R MANN PERDOMO [facility] [id number] Univers 11:30:00 12:16:38 [facility] 2021-11-07 2021-11-07 Outpatient R MANN PERDOMO [facility] [id number] Univers 11:30:00 11:30:00 MANN PERDOMO [facility] 2021-11-07 2021-11-07 Outpatient R ROLF [facility] [id number] Univers 10:15:00 11:09:12 RACHELE ashraf [facility] 2021-11-07 2021-11-07 Ancillary Jimy Cardona [facility] 1.2. 840.114 [id number] Univers 10:15:00 11:09:12 Visit Rachele Bansal 350.1.13.10 ity of [place] [facility] 4.2.7.2.[place] [id number] [facility] 178 [facility] 2021-11-06 2021-11-06 Outpatient R MANN PERDOMO [facility] [id number] Univers 08:00:00 08:00:00 [facility] 2021-11-02 2021-11-02 Ancillary Jimy Cardona [facility] 1.2. 840.114 [id number] Univers 13:45:00 14:45:15 Visit Rachele Bansal 350.1.13.10 ity of [place] [facility] 4.2.7.2.[place] [id number] Ca dical NAL 178 [facility] 2021-11-02 2021-11-02 Outpatient R [facility] [id number] Univers 10:30:00 11:04:20 RJ ity [facility] 2021-11-02 2021-11-02 Office [facility] 1.2.838.700 [id number] [facility] 10:30:00 11:04:20 Visit Rj ROBERTSON 350.1.13.10 i ty of [place] [facility] 4.2.7.2.[place] [id number] Ca dical NAL 134 [facility] 2021-10-26 2021-10-26 Outpatient [facility] [id number] Univers 10:15:00 11:38:31 RACHELE ashraf [facility] 2021-10-26 2021-10-26 Ancillary Jimy Cardona [facility] 1.2. 840.114 [id number] Univers 10:15:00 11:38:31 Visit Rachele Bansal 350.1.13.10 ity of [place] [facility] 4.2.7.2.[place] [id number] Ca dical NAL [address] [place] [address] 2021-10-19 2021-10-19 Outpatient R ROLF [facility] [id number] Univers 10:45:00 11:59:51 RACHELE itanh [facility] 2021-10-19 2021-10-19 Ancillary Jimy Cardona [facility] 1.2. 840.114 [id number] Univers 10:45:00 11:59:51 Visit Rachele Bansal 350.1.13.10 ity of [place] [facility] 4.2.7.2.[place] [id number] Ca dical NAL 178 [facility] 2021-10-19 2021-10-19 Outpatient R ROLF [facility] [id number] Univers 10:45:00 10:45:00 RACHELE estebananh [facility] 2021-10-16 2021-10-16 Outpatient R DEL [facility] [id number] Univers 13:15:00 13:15:00 RJ ity [facility] 2021-10-16 2021-10-16 Seismometer Operator 2, Adc Lab [facility] 1.2.840.114 [id number] Univers 13:15:00 13:15:00 Visit MathisKellyRj Alberto SATISH 350.1. 13.10 ity of [place].2.[place] [id number] Ca [facility] 353 [facility] 2021-10-16 2021-10-16 Office Del [facility] 1.2.840.114 [id number] Univers 10:00:00 12:56:51 Visit Rj ROBERTSON 350.1.13.10 ity of [place] 4[place].2.[place] [id number] Ca dical NAL 231 [facility] 2021-10-16 2021-10-16 Outpatient R DEL [facility] [id number] Univers 10:00:00 12:56:51 RJ estebananh [facility] 2021-10-16 2021-10-16 Outpatient R DEL [facility] [id number] Univers 10:00:00 10:00:00 RJ carlitoanh [facility] 2021-10-10 2021-10-10 Ancillary Jimy Cardona [facility] 1.2. 840.114 [id number] Univers 15:45:00 16:49:22 Visit Rachele Bansal 350.1.13.10 ity of [place] [facility] 4.2.7.2.[place] [id number] Ca [facility] 178 [facility] 2021-10-10 2021-10-10 Outpatient R ROLF [facility] [id number] Univers 14:40:00 14:40:00 RACHELE ashraf [facility] 2021-10-05 2021-10-05 Ancillary Jimy Cardona [facility] 1.2. 840.114 [id number] Univers 13:00:00 13:45:00 Visit Rachele Bansal 350.1.13.10 ity [facility] 4[place].7.2.[place] [id number] Ca dical [address] 2021-10-05 2021-10-05 [facility] [id number] Univers 13:00:00 13:00:00 RACHELE ashraf [facility] 2021-10-05 2021-10-05 Outpatient [facility] [id number] Univers 13:00:00 13:00:00 RACHELE ashraf [facility] 2021-09-29 2021-09-29 [facility] 1.2.840.114 [id number] Univers 09:30:00 09:45:00 Visit Clara Sunni [facility] 350.1.13.10 ity [facility] [place]2.7.2.[place] [facility] [id number] [facility] SPECIALTY CARE 2021-09-29 2021-09-29 Outpatient R [facility]LINEDGARSELECT [facility] 1036 [id number] Univers 09:30:00 09:30:00 CLARA ashraf [facility] 2021-09-29 2021-09-29 Outpatient R [facility] 1036 [id number] Univers 09:30:00 09:30:00 CLARA ashraf [facility] 2021-09-28 2021-09-28 Ancillary Jimy Cardona [facility] 1.2. 840.114 [id number] Univers 10:15:00 11:00:00 Visit Rachele Bansal 350.1.13.10 ity [facility] [place] [id number] Ca dic[address] 2021-09-28 2021-09-28 Outpatient R [facility] [id number] Univers 10:15:00 10:15:00 ity [facility] 2021-09-28 2021-09-28 Outpatient R ROLF [facility] [id number] Univers 10:15:00 10:15:00 RACHELE ashraf [facility] 2021-09-27 2021-09-27 Outpatient R ROBERT [facility] [id number] Univers 13:45:00 14:58:35 BUD ity [facility] 2021-09-27 2021-09-27 Office Robert [facility] 1.2.840.114 [id number] Univers 13:45:00 14:58:35 Visit Bud SPECIALTY [id number] ity of [facility] [place]2.[place] [phone] Me dical [place]CTORY 253 [facility] 2021-09-21 2021-09-21 Ancillary Jimy Cardona [facility] 1.2. 840.114 [id number] Univers 10:45:00 11:30:00 Visit Rachele Bansal 350.1.13.10 ity [facility] [id number] [phone] Me dical NAL 178 [facility] 2021-09-21 2021-09-21 Outpatient R ROLF [facility] [id number] Univers 10:00:00 11:14:34 RACHELE ashraf [facility] 2021-09-21 2021-09-21 Ancillary Caitlin Tucker [facility] 1.2.840 .114 [id number] Univers 10:00:00 11:14:34 Visit Rachele Bansal 350.1.13.10 ity [place] [phone] Me dical NAL 179 [facility] 2021-09-21 2021-09-21 Outpatient R ROLF [facility] [id number] Univers 10:45:00 10:45:00 RACHELE ashraf [facility] 2021-09-21 2021-09-21 Ancillary Caitlin Tucker [facility] 1.2.840 .114 [id number] Univers 10:00:00 10:40:00 Visit Rachele Bansal 350.1.13.10 ity of [id number] [phone] Ca dical NAL 179 [facility] 2021-09-18 2021-09-18 Outpatient R JULIO [facility] [id number] Univers 09:00:00 09:00:00 CLARA itanh [facility] 2021-09-14 2021-09-14 Ancillary Jimy Cardona [facility] 1.2. 840.114 [id number] Univers 14:00:00 15:13:00 Visit Rachele Bansal 350.1.13.10 it[place] of [id number] [id number] Ca dical NAL 178 [facility] 2021-09-12 2021-09-12 Ancillary Jimy Cardona [facility] 1.2. 840.114 [id number] Univers 16:30:00 17:15:00 Visit Rachele Bansal 350.1.13.10 ity of [place] [facility] [place] [phone] Ca dical NAL 178 [facility] 2021-09-12 2021-09-12 Ancillary Lashaun Bean [facility] 1.2. 840.114 [id number] Univers 15:40:00 16:20:00 Visit Rachele Bansal 350.1.13.10 ity of [place] [id number] Ca dical NAL 179 [facility] 2021-09-11 2021-09-11 Outpatient R ROBERT [facility] [id number] Univers 08:58:13 23:59:00 BUD ity [facility] 2021-09-11 2021-09-11 Hospital Robert [facility] 1.2.840.114 [id number] Univers 08:58:13 23:59:00 Encounter Bud ROBERTSON 350.1.13.10 it[place] of [place] [phone] [facility] [address] [place] 2021-09-11 2021-09-11 Ancillary Ama Manzo [facility] 1 .2.840.114 [id number] Univers 13:00:00 13:41:09 Visit Rachele Bansal 350.1.13.10 ity of [place] [facility] [place].2.[place] [phone] Ca dical [facility] [address] [facility] 2021-09-11 2021-09-11 Outpatient R ROLF [facility] [id number] Univers 13:00:00 13:00:00 RACHELE ashraf [facility] 2021-09-11 2021-09-11 Orders Doctor NANCY 1.2.840.114 [id number] Univers 00:00:00 00:00:00 Only Unassigned, MELANIE 350.1.13.10 ity of [place] [facility] 4.2.7.2.686 Matt as [phone] [address] 2021-09-07 2021-09-07 Ancillary Caitlin Tucker [facility] 1.2.840 .114 [id number] Univers 14:20:00 15:00:00 Visit Rachele Bansal 350.1.13.10 ity of [place] [phone] Ca dical [facility] 179 [facility] 2021-09-01 2021-09-01 Urgent Mahamed Robles [facility] 1.2.840. 114 [id number] Univers 16:05:24 16:25:24 Charan Finney [facility] 350.1.13.10 ity of [facility] 4.2.7.2.686 [place] as MELISSA?BLEA [phone] [facility] [address] MEDICAL OFFICE BUILDING 2021-09-01 2021-09-01 Outpatient R MUSA [facility] [id number] Univers 16:20:00 16:20:00 [facility] 2021-08-31 2021-08-31 Ancillary Kena Tucker [facility] 1.2.840. 114 [id number] Univers 09:15:12 09:55:12 Visit Rachele Bansal 350.1.13.10 ity of [place] [facility] 4.2.[place].2.[place] [phone] Ca dical NAL 179 [facility] 2021-08-29 2021-08-29 Ancillary Beto Cardonajerad Esparza [facility] 1.2. 840.114 [id number] Univers 15:03:16 16:47:58 Visit Rachele Bansal 350.1.13.10 ity of [place] [phone] Ca dical NAL 178 [facility] 2021-08-29 2021-08-29 [facility] [id number] Univers 15:00:00 16:47:58 RACHELE ity [facility] 2021-08-29 2021-08-29 Outpatient R [facility] [id number] Univers 15:00:00 15:00:00 ity [facility] 2021-08-29 2021-08-29 Ancillary Caitlin Tucker [facility] 1.2.840 .114 [id number] Univers 14:19:03 14:59:03 Visit Rachele Bansal 350.1.13.10 ity of [place] [phone] Ca dical NAL 179 [facility] 2021-08-28 2021-08-28 [facility]ill [facility] 1.2.840.114 [id number] Univers 00:00:00 00:00:00 Jovita ROBERTSON 350.1.13.10 i ty of [place].2.[place] [phone] Ca dical NAL 044 [facility] 2021-08-24 2021-08-24 [facility] [id number] Univers 16:20:00 16:20:00 RACHELE ashraf [facility] 2021-08-24 2021-08-24 Seismometer Operator Vls-Lab [facility] 1.2.840.114 [id number] Univers 09:37:59 09:52:59 Visit Bud Ordonez 350.1.13.10 ity of [facility] 4.2.7.2.[place] AT [phone] Ca mehnaz CUELLAR 353 [facility] 2021-08-24 2021-08-24 Outpatient R ROBERT [facility] [id number] Univers 09:45:00 09:45:00 BUD ashraf [facility] 2021-08-24 2021-08-24 Outpatient R ROBERT [facility] [id number] Univers 08:45:00 09:36:57 BUD ashraf [facility] 2021-08-24 2021-08-24 Office [facility] 1.2.840.114 [id number] Univers 08:34:40 09:36:57 Visit [facility].13.[facility] [place] [phone] Ca mehnaz Butts [facility] 2021-08-23 2021-08-23 Outpatient R MORGAN [facility] [id number] Univers 15:35:00 14:55:01 JOVITA andriy [facility] 2021-08-23 2021-08-23 Outpatient R SHRADDHAVIVIAN [facility] [id number] Univers 15:35:00 14:55:01 JOVITA anh [facility] 2021-08-23 2021-08-23 Office [facility] 1.2.840.114 [id number] Univers 14:44:59 14:55:01 Visit Jovita ROBERTSON 350.1.13.10 i ty of [place] [phone] Ca dic[address] 2021-08-23 2021-08-23 Office [facility] 1.2.840.114 [id number] Univers 12:50:56 14:54:14 Visit Jovita ROBERTSON 350.1.13.10 i ty of [place] [facility] 4.2.7.2.[place] [phone] Ca dical NAL 044 [facility] 2021-08-22 2021-08-22 Ancillary Kena Tucker [facility] 1.2.840. 114 [id number] Univers 13:56:21 14:36:21 Visit Rachele Bansal 350.1.13.10 ity of [place] 4[place].2.[place] [phone] Ca dical NAL 179 [facility] 2021-08-22 2021-08-22 Outpatient R ROLF [facility] [id number] Univers 14:20:00 14:20:00 RACHELE ashraf [facility] 2021-08-22 2021-08-22 Ancillary Jimy Cardona [facility] 1.2. 840.114 [id number] Univers 13:03:40 13:48:40 Visit Bansal Rachele ROBERTSON 350.1.13.10 ity of [place].2.[place] [phone] Ca dical NAL 178 [facility] 2021-08-22 2021-08-22 Outpatient R ROLF [facility] [id number] [facility] 13:00:00 13:00:00 RACHELEMICHELLE ashraf [facility] 2021-08-15 2021-08-15 Ancillary Jimy Cardona [facility] 1.2. 840.114 [id number] Univers 13:46:13 15:26:31 Visit Rachele Bansal 350.1.13.10 ity of [place] [id number] Ca dical NAL 178 [facility] 2021-08-15 2021-08-15 Ancillary Ama Manzo [facility] 1 .2.840.114 [id number] Univers 14:22:38 15:22:38 Visit Rachele Bansal 350.1.13.10 ity of [place] [phone] Ca dical NAL 179 [facility] 2021-08-10 2021-08-10 Ancillary Jimy Cardona [facility] 1.2. 840.114 [id number] Univers 08:47:18 09:32:18 Visit Rachele Bansal 350.1.13.10 ity of [place].2.[place] [phone] Ca dical NAL 178 [facility] 2021-08-08 2021-08-08 Ancillary Jimy Cardona [facility] 1.2. 840.114 [id number] Univers 13:02:30 13:47:30 Visit Rachele Bansal 350.1.13.10 ity of [place] 4[place].2.[place] [phone] Ca dical NAL 178 [facility] 2021-08-08 2021-08-08 Telephone Del [facility] 1.2.840.114 [id number] Univers 00:00:00 00:00:00 Rjtomas ROBERTSON 350.1.13.10 ity of [place].2.[place] [phone] Ca dical NAL 231 [facility] 2021-08-08 2021-08-08 Refill Del [facility] 1.2.840.114 [id number] Univers 00:00:00 00:00:00 Rj ROBERTSON 350.1.13.10 ity of [place] [phone] Ca dical NAL 044 [facility] 2021-08-03 2021-08-03 Ancillary Jimy Cardona [facility] 1.2. 840.114 [id number] Univers 13:13:49 15:00:33 Visit Rachele Bansal 350.1.13.10 ity of [place].2.[place] [phone] Ca dical NAL 178 [facility] 2021-08-01 2021-08-01 Ancillary Jimy Cardona [facility] 1.2. 840.114 [id number] Univers 14:39:27 15:37:16 Visit Rachele Bansal 350.1.13.10 ity of [place] [id number] Ca dical NAL 178 [facility] 2021-07-27 2021-07-27 Ancillary Jimy Cardona [facility] 1.2. 840.114 [id number] Univers 13:22:18 14:41:07 Visit Rolf Rachele Georgie ROBERTSON 350.1.13.10 ity of [place] [facility] 4.2.7.2.[place] [phone] Ca dical NAL 178 [facility] 2021-07-25 2021-07-25 Ancillary Jimy Cardona [facility] 1.2. 840.114 [id number] Univers 12:56:36 13:41:36 Visit Bansal Rachele ROBERTSON 350.1.13.10 ity of [place] [facility] 4.2.7.2.[place] [phone] Ca dical NAL 178 [facility] 2021-07-25 2021-07-25 Telephone Luis M [facility] 1.2.840.114 [id number] Univers 00:00:00 00:00:00 [facility] 350.1.13.10 ity of [place] 4.2.7.2.686 Matt as MELISSA?BLEA [phone] Ca dical KNEY 092 [facility] OFFICE [facility] 2021-07-20 2021-07-20 Ancillary Jimy Cardona [facility] 1.2. 840.114 [id number] Univers 13:03:06 14:18:12 Visit Bansal Rachele ROBERTSON 350.1.13.10 ity of [place] [facility] 4.2.7.2.[place] [phone] Ca dical NAL 178 [facility] 2021-07-20 2021-07-20 Outpatient R ROLF [facility] [id number] Univers 13:00:00 14:18:12 RACHELE ashraf of [facility] 2021-07-19 2021-07-19 Office Jannette Vázquez [facility] 1.2.840.114 [id number] Univers 09:47:56 11:03:40 Visit E SPECIALTY 350.1.13.10 ity of [place].2.[place] [phone] Ca dical VICTORY 201 [facility] 2021-07-19 2021-07-19 Outpatient R JANNETTE VÁZQUEZ [facility] [id number] Univers 10:15:00 10:15:00 ity of [facility] 2021-07-18 2021-07-18 Ancillary Jimy Cardona [facility] 1.2. 840.114 [id number] Univers 12:59:20 15:15:55 Visit Rachele Bansal 350.1.13.10 ity of [place].2.[place] [phone] Ca dical nal 178 [facility] 2021-07-18 2021-07-18 Patient Jannette Vázquez [facility] 1.2.840.114 [id number] Univers 00:00:00 00:00:00 Secure Msg E SPECIALTY 350.1.13.10 it[place] of [place] [phone] Ca mehnaz CUELLAR 201 [facility] 2021-07-18 2021-07-18 Orders Doctor NANCY 1.2.840.114 [id number] Univers 00:00:00 00:00:00 Only Unassigned, MELANIE 350.1.13.10 ity of [place] [facility] 4.2.7.2.686 Matt as [phone] [address] 2021-07-14 2021-07-14 Telephone Del [facility] 1.2.840.114 [id number] Univers 00:00:00 00:00:00 Rj Robertson 350.1.13.10 ity of [place].2.[place] [phone] Ca dicarpita ferrari 044 [facility] 2021-07-13 2021-07-13 Telephone Jannette Vázquez [facility] 1.2.840.114 [id number] Univers 00:00:00 00:00:00 E SPECIALTY 350.1.13.10 it[place] of [place] [phone] Ca mehnaz CUELLAR 201 [facility] 2021-07-11 2021-07-11 Ancillary Jimy Cardona [facility] 1.2. 840.114 [id number] Univers 13:08:46 14:52:03 Visit Rachele Bansal 350.1.13.10 ity of [place] 4[place].2.[place] [phone] Me dical nal [address] 2021-07-11 2021-07-11 Orders Doctor NANCY 1.2.840.114 [id number] Univers 00:00:00 00:00:00 Only Unassigned, MELANIE 350.1.13.10 ity of [place] [facility] 4.2.7.2.686 Matt as [phone] [facility] li [address] 2021-07-04 2021-07-04 Office Robert [facility] 1.2.840.114 [id number] Univers 08:34:35 09:19:35 Visit Bud SPECIALTY 350.1.13.10 it[place] of [place] [phone] Ca dical VICTORY 253 [facility] 2021-07-04 2021-07-04 Outpatient R ROBERT [facility] [id number] Univers 09:15:00 09:15:00 BUD ity of [facility] 2021-07-04 2021-07-04 Telephone Robert [facility] 1.2.757.161 [id number] Univers 00:00:00 00:00:00 Bud SPECIALTY 350.1.13.10 it[place] of [place] [phone] Ca dical VICTORY 253 [facility] 2021-06-29 2021-06-30 Ancillary Jmiy Cardona [facility] 1.2. 840.114 [id number] Univers 13:04:18 19:13:36 Visit Rachele Bansal 350.1.13.10 ity of [place].2.[place] [phone] Me dical nal [address] [facility] 2021-06-29 2021-06-29 Orders Doctor NANCY 1.2.840.114 [id number] Univers 00:00:00 00:00:00 Only Unassigned, MELANIE 350.1.13.10 ity of [place] [facility] 4.2.7.2.686 Matt as [phone] [facility] li [address] 2021-06-28 2021-06-28 Telephone NANCY Dutta 1.2.463.353 [id number] Univers 00:00:00 00:00:00 Ghada NAVARRO 350.1.13.10 it y of [facility] 4.2.7.2.686 Matt as [phone] [address] 2021-06-28 2021-06-28 Telephone Musa [facility] 1.2.421.468 [id number] Univers 00:00:00 00:00:00 Charan Health 350.1.13.10 it y of [place] 4.2.7.2.686 Matt as Melissa?Blea [phone] [address] Office [facility] 2021-06-27 2021-06-27 Ancillary Jimy Cardona [facility] 1.2. 840.114 [id number] Univers 13:13:08 14:22:17 Visit Rachele Bansal 350.1.13.10 ity of [place] [phone] Ca dical nal 178 [facility] 2021-06-27 2021-06-27 Laboratory Only, Ang Db Test [facility] 1.2.8 40.114 [id number] Univers 11:10:49 11:25:49 Only Chraan Vigil 350.1.13.10 ity of [place] 4.2.7.2.686 Matt as Melissa?Blea [phone] [address] 2021-06-27 2021-06-27 Outpatient R MUSA [facility] [id number] Univers 11:15:00 11:15:00 CHARAN ity [facility] 2021-06-24 2021-06-24 Jossy Mathis [facility] 1.2.840.114 [id number] Univers 00:00:00 00:00:00 Rj Robertson 350.1.13.10 ity of [place].2.[place] [phone] Ca dical nal 231 [facility] 2021-06-20 2021-06-20 Nurse Therapy, Adc Covid Infusion [facility] 1.2.840.114 [id number] Univers 14:13:10 15:13:10 Visit Jonathan Barrow 350.1.13.10 ity of [place]2.7.2.[place] [phone] [place] [address]19[address] [place] 2021-06-20 2021-06-20 Outpatient R DANIAL [facility] [id number] Univers 14:30:00 14:30:00 JONATHAN ity of [facility] 2021-06-13 2021-06-13 Urgent [facility] 1.2.840.114 [id number] Univers 14:46:03 15:25:21 Care Mahamed ELENZA 350.1.13.10 i ty of [place] 4.2.7.2.686 Matt as Melissa?Blea [phone] [address] Medical Office [facility] 2021-06-13 2021-06-13 Outpatient R MIKE [facility] [id number] Univers 15:00:00 15:00:00 MAHAMED ity o f [facility] 2021-06-13 2021-06-13 Orders Doctor NANCY 1.2.840.114 [id number] Univers 00:00:00 00:00:00 Only Unassigned, MELANIE 350.1.13.10 ity of [place] [facility] 4.2.7.2.686 Matt as [phone] [address] 2021-06-13 2021-06-13 Telephone [facility] 1.2.840.114 [id number] Univers 00:00:00 00:00:00 Mahamed ELENZA 350.1.13.10 i ty of [place] 4.2.7.2.686 Matt as Melissa?Blea [phone] [address] Medical Office Building 2021-06-07 2021-06-07 Ancillary Therapy-Susana DhillonYcs-Tg-Tceoc [facility] 1.2.840.114 [id number] Univers 14:12:10 15:31:14 Visit Ayden Reyes Health 350.1.13.10 ity of [facility] [place].2.[place].2.686 [place] [phone] [address] ([facility]) 2021-06-07 2021-06-07 Outpatient R ROQUE [facility] [id number] Univers 14:30:00 14:30:00 AYDEN itanh [facility] 2021-05-15 2021-05-15 [facility] 1.2.840.114 [id number] Univers 08:27:02 09:23:57 Visit [facility] 350.1.13.10 it y of [place] 4.2.7.2.686 [facility] [phone] [facility] [address] Office Building 2021-05-15 2021-05-15 Outpatient R MARIOLA [facility] [id number] Univers 08:30:00 08:30:00 YAN [facility] 2021-05-10 2021-05-10 Outpatient R JANNETTE VÁZQUEZ [facility] [id number] Univers 10:30:00 10:30:00 ity [facility] 2021-04-26 2021-04-26 Outpatient R ADRIEN [facility] [id number] Univers 13:30:00 13:30:00 HEATHER [facility] 2021-04-24 2021-04-24 [facility] [id number] Univers 09:00:00 09:00:00 YAN [facility] 2021-04-20 2021-04-20 Outpatient R [facility] [id number] Univers 08:20:00 08:20:00 ity [facility] 2021-04-17 2021-04-17 Outpatient R [facility] [id number] Univers 08:00:00 08:00:00 ity [facility] 2021-04-17 2021-04-17 Orders Doctor CRUZ 1.2.840.114 [id number] Univers 00:00:00 00:00:00 Only Unassigned, MELANIE 350.1.13.10 ity of [place] [facility] 4.2.7.2.686 Matt [phone] [place] [address] [address] 2021-04-10 2021-04-10 Outpatient R DEL [facility] [id number] Univers 14:40:00 14:40:00 RJ [facility] 2021-03-23 2021-03-23 Outpatient [facility] [id number] Univers 13:45:00 13:45:00 [facility] 2021-03-14 2021-03-14 Outpatient R ROLF [facility] [id number] Univers 15:00:00 15:00:00 [facility] 2021-03-13 2021-03-13 Outpatient R [facility] [id number] Univers 09:00:00 09:00:00 [facility] 2021-03-03 2021-03-03 Outpatient R ALEX, [facility] [id number] Univers 13:20:00 13:20:00 JOSH [facility] 2021-03-02 2021-03-02 Outpatient R [facility] [id number] Univers 17:20:00 17:20:00 [facility] 2021-02-28 2021-02-28 Out[facility] [id number] Univers 14:00:00 14:00:00 LIBRADO [facility] 2021-02-23 2021-02-23 [facility] [id number] Univers 14:00:00 14:00:00 [facility] 2021-02-21 2021-02-21 Outpatient R ELYSE [facility] [id number] Univers 10:00:00 10:00:00 JAIMIE [facility] 2021-02-16 2021-02-16 Outpatient R ROLF [facility] [id number] Univers 10:30:00 10:30:00 [facility] 2021-01-31 2021-01-31 Outpatient R DADA SALEH [facility] [id number] Univers 15:00:00 15:00:00 DADA SALEH [facility] 2021-01-30 2021-01-30 Outpatient Dg WILLIAM [facility] [id number] Univers 15:00:00 15:00:00 DANNY ashraf o ruth [facility] 2021-01-25 2021-01-25 Outpatient R ROQUE, [facility] [id number] Univers 14:30:00 14:30:00 AYDEN [facility] 2021-01-24 2021-01-24 Outpatient R ELYSE, [facility] [id number] Univers 11:00:00 11:00:00 JAIMIE [facility] 2021-01-11 2021-01-11 Outpatient R MIKE, [facility] [id number] Univers 09:30:00 09:30:00 MAHAMED hughes [facility] 2021-01-09 2021-01-09 Outpatient R [facility] [id number] Univers 09:00:00 09:00:00 [facility] 2020-12-30 2020-12-30 Outpatient [facility] [id number] Univers 14:50:00 14:50:00 [facility] 2020-12-27 2020-12-27 Outpatient MORIAH, [facility] [id number] Univers 00:00:00 00:00:00 DANNY hughes [facility] 2020-12-22 2020-12-22 Outpatient R ROLF, [facility] [id number] Univers 14:20:00 14:20:[facility] 2020-12-13 2020-12-13 Outpatient R MORIAH, [facility] [id number] Univers 16:20:00 16:20:00 DANNY hughes [facility] 2020-12-07 2020-12-07 Outpatient R SAMMIE, [facility] [id number] Univers 14:50:00 14:50:00 TORSTEN [facility] 2020-11-29 2020-11-29 Outpatient R ROLF, [facility] [id number] Univers 13:40:00 13:40:00 [facility] 2020-11-16 2020-11-16 Outpatient R SURI, [facility] [id number] Univers 00:00:00 00:00:00 RJ [facility] 2020-11-15 2020-11-15 Outpatient R ROQUE, [facility] [id number] Univers 15:00:00 15:00:00 AYDEN anh [facility] 2020-11-07 2020-11-07 Outpatient R MORIAH, [facility] [id number] Univers 11:00:00 11:00:00 DANNY ashraf o ruth [facility] 2020-11-02 2020-11-02 Outpatient R SURI, [facility] [id number] Univers 09:30:00 09:30:00 RJ anh [facility] 2020-10-21 2020-10-21 Outpatient R [facility] [id number] Univers 16:40:00 16:40:00 [facility] 2020-10-18 2020-10-18 Outpatient R SILVIA, [facility] [id number] Univers 14:40:00 14:40:00 SANDI ashraf o ruth [facility] 2020-10-14 2020-10-14 [facility] [id number] Univers 10:00:00 10:00:00 RJ [facility] 2020-08-29 2020-08-29 [facility]phone [facility] [id number] 00:00:00 00:00:00 Jovita Robertson [id number] [facility] [id number] Professio [phone] [facility] 044 [facility] 2020-08-24 2020-08-24 Outpatient R DEL [facility] [id number] Univers 11:15:00 11:15:00 RJ andriy [facility] 2020-08-24 2020-08-24 Seismometer Operator 2, Ad[facility] [id number] 10:59:50 11:14:50 Visit Satish [id number] Tae [id number] Professio [phone] [facility] 353 [facility] 2020-08-16 2020-08-16 [facility] [id number] 13:06:10 14:31:10 Visit Rj Robertson [id number] [facility] [id number] [facility] [phone] [address] 2020-08-16 2020-08-16 Outpatient R DEL [facility] [id number] Univers 13:00:00 13:00:00 RJ ashraf [facility] 2020-06-23 2020-06-23 Outpatient R [facility] [id number] Univers 11:20:00 11:20:00 itanh [facility] 2020-06-17 2020-06-17 Outpatient R DANIAL [facility] [id number] Univers 09:30:00 09:30:00 CHILVANA ity o f [facility] 2020-06-17 2020-06-17 Outpatient R BARROW [facility] [id number] Univers 09:30:00 09:30:00 CHILVANA ity o f [facility] 2020-06-15 2020-06-15 [facility] [id number] Univers 14:40:00 14:40:00 RACHELE [facility] 2020-06-07 2020-06-[address] [facility] [id number] Univers 09:55:00 09:55:00 MAXIMO [facility] 2020-05-09 2020-05-09 Outpatient R ARIEL [facility] [id number] Univers 10:40:00 10:40:00 MAXIMO ashraf [facility] 2020-05-03 2020-05-03 [facility] [id number] Univers 10:40:00 10:40:00 TAMIKO ashraf [facility] 2020-04-26 2020-04-26 [facility] [id number] Univers 11:41:39 11:41:39 TAMIKO ashraf [facility] 2020-04-26 2020-04-26 [facility] [id number] Univers 00:00:00 00:00:00 TAMIKO ashraf [facility] 2020-04-11 2020-04-11 Outpatient R JOSIE TIMMONS [facility] [id number] Univers 10:00:00 10:00:00 [facility]-03-30 2020-03-30 Outpatient R MADIE [facility] [id number] Univers 11:00:00 11:00:00 TAMIKO [facility] 2020-03-15 2020-03-15 Outpatient R MADIE [facility] [id number] Univers 11:40:00 11:40:00 [facility] 2020-03-03 2020-03-03 Outpatient R DEL [facility] [id number] Univers 16:00:00 16:00:00 RJTOMAS ashraf [facility] 2020-03-01 2020-03-01 Outpatient R DEL [facility] [id number] Univers 08:40:00 08:40:00 RJ [facility] 2020-02-24 2020-02-24 Outpatient R MADIE [facility] [id number] Univers 11:00:00 11:00:00 [facility] 2020-02-16 2020-02-16 Outpatient R FRANCISJANELVAISHALIAMAYA [facility] [id number] Univers 09:03:11 23:59:00 JOSE Meza [facility] 2020-02-08 2020-02-08 Outpatient R DEL [facility] [id number] Univers 13:20:00 13:20:00 RJ [facility] 2020-01-22 2020-01-22 Outpatient R WINSTON [facility] [id number] Univers 09:45:00 09:45:00 JOSE Meza [facility] 2020-01-20 2020-01-20 Outpatient R WINSTON [facility] [id number] Univers 14:30:00 14:30:00 JOSE Meza [facility] 2019-12-24 2019-12-24 Outpatient R MADIE [facility] [id number] Univers 10:20:00 10:20:00 TAMIKO [facility] 2019-12-18 2019-12-18 Outpatient R MORGAN [facility] [id number] Univers 10:20:00 10:20:00 JOVITA ashraf [facility] 2019-12-03 2019-12-03 Outpatient R MADIE, [facility] [id number] Univers 10:20:00 10:20:00 TAMIKO ashraf [facility] 2019-11-20 2019-11-20 Outpatient R MORGAN, [facility] [id number] Univers 15:20:00 15:20:00 JOVITA ashraf [facility] 2019-11-19 2019-11-19 Outpatient R MADIE, [facility] [id number] Univers 09:56:55 23:59:00 TAMIKO ashraf [facility] 2019-11-05 2019-11-05 Outpatient R SURI, [facility] [id number] Univers 10:41:03 23:59:00 RJ ashraf [facility] 2019-11-05 2019-11-05 Outpatient R SURI, [facility] [id number] Univers 10:41:03 [facility]59[facility] 2019-09-29 Outpatient R MIKE, [facility] [id number] Univers 11:00:00 11:28:31 MAHAMED ashraf o f [facility] 2018-02-03 2018-02-03 [facility] [id number] [place] 09:00:00 09:00:00 t; Rakel LIMON M.D. ans JEFFREY, M.D. 2017-12-30 2017-12-30 [facility] [id number] [place] 11:30:00 11:30:00 t; Rakel LIMON M.D. ans JEFFREY, M.D. 2017-12-23 2017-12-23 LUCIAN Banerjee UTP [id number] [place] 11:30:00 11:30:00 t; [place] Physi Phil Garcia M.D. 2017-11-04 2017-11-04 LU[facility]AN [facility] [id number] [place] 10:00:00 10:00:00 t; [place] Physi Phil Garcia M.D. 2017-10-28 2017-10-28 LUCIAN Banerjee UTP [id number] [place] 10:00:00 10:00:00 t; [place] Physi Phil Garcia M.D. 2017-10-15 2017-10-15 Appointmen CHIDI, UTP UTP [id number] [place] 11:30:00 11:30:00 t; OKPALA, MUNACHI, CORRECTIONAL SECURITY OFFICER Physici MUNACHI, ans CORRECTIONAL SECURITY OFFICER 2017-09-11 2017-09-11 Appointmen OKPALA, UTP UTP [id number] [place] 09:30:00 09:30:00 t; OKPALA, MUNACHI, CORRECTIONAL SECURITY OFFICER Physici MUNACHI, ans CORRECTIONAL SECURITY OFFICER 2017-09-10 2017-09-10 Appointmen MARIYAA, UTP UTP [id number] [place] 09:30:00 09:30:00 t; OKPALA, MUNACHI, CORRECTIONAL SECURITY OFFICER Physici MUNACHI, ans CORRECTIONAL SECURITY OFFICER 2017-09-09 2017-09-09 Appointvanesa CASTILLO, UTP UTP [id number] [place] 10:00:00 10:00:00 t; [place] Physi Phil Garcia M.D. 2017-07-29 2017-07-29 Appointvanesa ANNA, UTP UTP [id number] [place] 11:30:00 11:30:00 t; [place] Physi Phil Garcia M.D. 2017-07-22 2017-07-22 Appointvanesa ANNA, UTP UTP [id number] [place] 11:30:00 11:30:00 t; [place] Physi Phil Garcia M.D. 2017-06-24 2017-06-24 Appointvanesa ANNA, UTP UTP [id number] [place] 14:00:00 14:00:00 t; [place] Physi Phil Garcia M.D. 2017-06-14 2017-06-15 Outpt Diag nullFlavo [facility] [id number] Memoria 17:20:00 04:59:00 Services r Gissell [facility] 2017-06-14 2017-06-14 Appointmen MARIYAA, UTP UTP [id number] [place] 10:00:00 10:00:00 t; OKPALA, MUNACHI, CORRECTIONAL SECURITY OFFICER Physici MUNACHI, ans CORRECTIONAL SECURITY OFFICER 2017-03-15 2017-03-15 Appointmen LUCIAN MURILLO UTP [id number] [place] 10:30:00 10:30:00 t; COLEEN MURILLO, juan a Ron NP 2017-01-05 2017-01-05 Emergency [facility] [id number] Memoria 06:29:00 11:27:00 r Srikanth 05 l [facility] 2014-03-21 2014-03-21 [facility] [id number] Memoria 02:06:00 06:23:00 Emergency r Srikanth 01 l [facility] 2014-03-18 2014-03-19 OBS nullFlavo [facility] [id number] Memoria 01:46:00 17:05:00 Observatio r [place] 00 l n Patient [facility] 2013-11-30 2014-01-01 Inpatient nullFlavo [facility] [id number] Memoria 23:52:00 18:40:00 Rehab r [place] 66 [facility] 2013-11-26 2013-11-30 Inpatient nullFlavo [facility] [id number] Memoria 12:38:00 23:23:00 r Srikanth [id number] [address] Results Test Description Test Time Test Comments Results Result Comments Source POC-Glucose meter 2023-02-13 18:06:40 Test Item Value Reference Range Interpretation Comme nts POC-Glucose Meter (test code = 267 mg/dL 70-110 H : TESTED AT [place] [address]) [facility], [facility] 30: Technician Automatic/Techni renetta ID = [id number] for Avis Hinojosa Lab Interpretation (test code = Abnormal 59481-1) [facility]-Glucose [id number] 18:06:40 Test Item Value Reference Range Interpretation Comments POC-Glucose Meter (test 267 mg/dL 70-110 H : TE STED AT [facility] code = 1538) [address] [place] [address], 770 30: Technician Automatic/Techni renetta ID = [id number] for Avis Hinojosa Lab Interpretation (test Abnormal code = 76990-3) [facility]-Glucose [id number] 18:06:40 Test Item Value Reference Range Interpretation Comments POC-Glucose Meter (test 267 mg/dL 70-110 H : TE STED AT [facility] code = 1538) [address] [facility], 770 30: Technician Automatic/Techni renetta ID = [id number] for Arevalo - Avis Fair Lab Interpretation (test Abnormal code = 40294-2) [facility] [id number] 18:06:40 Test Item Value Reference Range Interpretation Comments POC-Glucose Meter (test 267 mg/dL 70-110 H : TE STED AT [facility] code = 1538) [address] [facility], 770 30: Technician Automatic/Techni renetta ID = [id number] for Arevalo - Marv, Avis Lab Interpretation (test Abnormal code = 03011-9) [facility] [id number] 18:06:40 Test Item Value Reference Range Interpretation Comments POC-GLUCOSE METER 267 mg/dL 70-110 H : TESTED A T [facility] 6720 (BEAKER) (test code = JOSE Conte [facility], 1538) 19615: Technician Automatic/Techni renetta ID = [id number] for Di deon - Dexterjacquelin Avis Carotid doppler [id number] 17:23:14Ejection FractionSLEH ECHO HEARTLAB [facility] do[facility] [id number] 17:23:14Ejection FractionSLEH ECHO [facility] [id number] 17:23:14Ejection FractionSLEH ECHO [facility] bilateral 2023-02-13 17:23:14Ejection FractionSLE ECHO HEARTLAB [facility], BRAIN, [id number] 15:55:00Please pay attention to the skullbase Unlisted Reason for Exam - Click Yes and Enter Reason Below->No [facility] 1965 Sex: FFINAL REPORT MRI Brain with and without contrast 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 Comparisons: Noncontrast MRI 02/11/2023 Findings: The slightly expansile appearance of the clivus with T1 marrow signal hypointensity throughout demonstrates nonspecific enhancement. There is no associated soft tissue component.The suboccipital calvarial marrow signal abnormality demonstrates subtle nonspecific enhancement enhance. The remainder of the calvarium marrow signal is grossly unremarkable as is the visualized uppercervical marrow. There is no evidence of acute infarct or hemorrhage. 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 There isno significant appearing white matter disease. There is no hydrocephalus, midline shift, or apparentmass effect. There are no extra-axial fluid collections. The major intracranial flow- voids appear patent. IMPRESSION: Nonspecific enhancement of slightly expansile clival marrow signal abnormality. Mild nonspecific enhancement of suboccipital calvarial marrow signal abnormality. As before, the differential diagnosis includes primary or secondary neoplasm, metabolic bone disease, and possible treatment changes. Clinical correlation is requested. 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 Comparison: None Findings: There is no evidence of intracranial aneurysm, focal stenosis, or major branch vessel occlusion. There is a origin left posterior cerebral artery. 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 The major intradural venous sinuses are patent. Impression: No large vessel occlusion. Left-sided persistent trigeminal artery. Signed:Marty Herrera [facility] Verified Date/Time: 02/13/2023 15:47:06 POCT-GLUCOSE [id number] 06:27:40 Test Item Value Reference Range Interpretation Comments POC-GLUCOSE METER 221 mg/dL 70-110 H : TESTED A T [facility] 6720 (BEAKER) (test code = JOSE Conte [facility], 1538) 180[address]: Technician Automatic/Techni renetta ID = [id number] for Verna Rg BASIC METABOLIC [id number] 05:49:27 Test Item Value Reference Range Interpretation Comments SODIUM (BEAKER) 139 meq/L 136-145 (test code = 381) POTASSIUM 4.5 meq/L 3.5-5.1 (BEAKER) (test code = 379) CHLORIDE (BEAKER) 108 meq/L 98-107 H (test code = 382) CO2 (BEAKER) 21 meq/L 22-29 L (test code = 355) BLOOD UREA 18 mg/dL 7-21 NITROGEN (BEAKER) (test code = 354) CREATININE 0.90 mg/dL 0.57-1.25 (BEAKER) (test code = 358) GLUCOSE RANDOM 216 mg/dL 70-105 H (BEAKER) (test code = 652) CALCIUM (BEAKER) 9.7 mg/dL 8.4-10.2 (test code = 697) EGFR (BEAKER) 75 Interpretatio n of eGFR (test code = mL/min/1.73 values Stage De scription 1092) sq m Result G1 Dequan l or high >=90 G2 Mildly decreased 60-89 G3a Mildl y to moderately 45-5 9 G3b Moderately to s everely 30-44 G4 Severl y decreased 15-29 G5 Kidney failure <15Reported eGF R is based on the CKD-EPI 2020 equation that d oes not use a race coefficientEsti mated GFR is not as accur ate as Creatinine Glo teresita in predicting glom erular filtration rate . Estimated GFR is not appl icable for dialysis patien ts Technician Automatic ID - IWONA WCBC W/PLT COUNT & AUTO [id number] 04:47:16 Test Item Value Reference Range Interpretation Comments WHITE BLOOD CELL COUNT (BEAKER) 9.2 K/ L 3.5-10.5 (test code = 775) RED BLOOD CELL COUNT (BEAKER) 3.96 M/ L 3.93-5.22 (test code = 761) HEMOGLOBIN (BEAKER) (test code = 12.2 GM/DL 11.2-15.7 410) HEMATOCRIT (BEAKER) (test code = 37.1 % 34.1-44.9 411) MEAN CORPUSCULAR VOLUME (BEAKER) 94 fL 79-95 (test code = 753) MEAN CORPUSCULAR HEMOGLOBIN 30.8 pg 25.6-32.2 (BEAKER) (test code = 751) MEAN CORPUSCULAR HEMOGLOBIN CONC 32.9 GM/DL 32.2-35.5 (BEAKER) (test code = 752) RED CELL DISTRIBUTION WIDTH 13.4 % 11.7-14.4 (BEAKER) (test code = 412) PLATELET COUNT (BEAKER) (test 314 K/CU MM 150-450 code = 756) MEAN PLATELET VOLUME (BEAKER) 10.0 fL 9.4-12.3 (test code = 754) NUCLEATED RED BLOOD CELLS 0 /100 WBC 0-0 (BEAKER) (test code = 413) NEUTROPHILS RELATIVE PERCENT 74 % (BEAKER) (test code = 429) LYMPHOCYTES RELATIVE PERCENT 20 % (BEAKER) (test code = 430) MONOCYTES RELATIVE PERCENT 3 % (BEAKER) (test code = 431) EOSINOPHILS RELATIVE PERCENT 1 % (BEAKER) (test code = 432) BASOPHILS RELATIVE PERCENT 1 % (BEAKER) (test code = 437) NEUTROPHILS ABSOLUTE COUNT 6.82 K/ L 1.56-6.13 H (BEAKER) (test code = 670) LYMPHOCYTES ABSOLUTE COUNT 1.80 K/ L 1.18-3.74 (BEAKER) (test code = 414) MONOCYTES ABSOLUTE COUNT (BEAKER) 0.28 K/ L 0.24-0.36 (test code = 415) EOSINOPHILS ABSOLUTE COUNT 0.10 K/ L 0.04-0.36 (BEAKER) (test code = 416) BASOPHILS ABSOLUTE COUNT (BEAKER) 0.07 K/ L 0.01-0.08 (test code = 417) IMMATURE GRANULOCYTES-RELATIVE 1.80 % 0.00-1.00 H PERCENT (BEAKER) (test code = 2801) POCT-GLUCOSE [id number] 22:15:21 Test Item Value Reference Range Interpretation Comments POC-GLUCOSE METER 191 mg/dL 70-110 H : TESTED A T [facility] 6720 (BEAKER) (test code = [place], 1538) [address]: Technician Automatic/Techni renetta ID = [id number] for Yogesh Rgandrade CT, CHEST, WITHOUT [id number] 18:11:00Unlisted Reason for Exam - Click Yes and Enter Reason Below->No [facility] : 1965 Sex: FFINAL REPORT CT, CHEST, WITHOUT CONTRAST INDICATION: Pneumonia, effusion or abscess suspected, xray done COMPARISON: None TECHNIQUE: CT, CHEST, WITHOUT CONTRAST. This exam was performedaccording to our departmental dose optimization program which includes automated exposure control, adjustment of the mA and/or kV according to patient size and/or use of iterative reconstruction technique. FINDINGS: Lungs: Clear.Central airways: Patent.Pleura: No pleural effusion or pneumothorax. Small fat-containing left Bochdalek herniaLymph nodes: Suboptimal evaluation of the hilar lymph nodes without IV contrast. Otherwise unremarkableCardiovascular: Mild coronary artery calcifications. Mild athe rosclerosis of the thoracic aorta and branch vessels.Thyroid gland: Visualized portion unremarkableEsophagus: UnremarkableIncluded upper abdomen: Cholecystectomy.Chest wall: Unremarkable.Bones: Unremarkable. IMPRESSION: No acute findings in the chest. Signed: Lico Barnett Verified Date/Time: 18:11:26 POCT-GLUCOSE [id number] 17:05:49 Test Item Value Reference Range Interpretation Comments POC-GLUCOSE METER 162 mg/dL 70-110 H : TESTED A T [facility] 6720 (BEAKER) (test code = [facility], [facility]) [address]: Technician Automatic/Techni renetta ID = [id number] for An derson, Giselle POCT-GLUCOSE [id number] 11:38:30 Test Item Value Reference Range Interpretation Comments POC-GLUCOSE METER 191 mg/dL 70-110 H : TESTED A T [facility] 6720 (BEAKER) (test code = [facility], 1538) 32964: Technician Automatic/Techni renetta ID = [id number] for An derson, Giselle POCT-GLUCOSE [id number] 08:32:14 Test Item Value Reference Range Interpretation Comments POC-GLUCOSE METER 160 mg/dL 70-110 H : TESTED A T [facility] 6720 (BEAKER) (test code = [facility], 1538) 34440: Technician Automatic/Techni renetta ID = [id number] for An derson, Giselle BASIC METABOLIC [id number] 04:37:56 Test Item Value Reference Range Interpretation Comments SODIUM (BEAKER) 140 meq/L 136-145 (test code = 381) POTASSIUM 3.7 meq/L 3.5-5.1 (BEAKER) (test code = 379) CHLORIDE (BEAKER) 108 meq/L 98-107 H (test code = 382) CO2 (BEAKER) 26 meq/L 22-29 (test code = 355) BLOOD UREA 15 mg/dL 7-21 NITROGEN (BEAKER) (test code = 354) CREATININE 0.91 mg/dL 0.57-1.25 (BEAKER) (test code = 358) GLUCOSE RANDOM 128 mg/dL 70-105 H (BEAKER) (test code = 652) CALCIUM (BEAKER) 9.0 mg/dL 8.4-10.2 (test code = 697) EGFR (BEAKER) 74 Interpretatio n of eGFR (test code = mL/min/1.73 values Stage De scription 1092) sq m Result G1 Dequan l or high >=90 G2 Mildly decreased 60-89 G3a Mildl y to moderately 45-5 9 G3b Moderately to s everely 30-44 G4 Severl y decreased 15-29 G5 Kidney failure <15Reported eGF R is based on the CKD-EPI 2020 equation that d oes not use a race coefficientEsti mated GFR is not as accur ate as Creatinine Glo teresita in predicting glom erular filtration rate . Estimated GFR is not appl icable for dialysis patien ts Technician Automatic ID - MMCBC W/PLT COUNT & AUTO [id number] 04:30:41 Test Item Value Reference Range Interpretation Comments WHITE BLOOD CELL COUNT 7.7 K/ L 3.5-10.5 (BEAKER) (test code = 775) RED BLOOD CELL COUNT 3.92 M/ L 3.93-5.22 L (BEAKER) (test code = 761) HEMOGLOBIN (BEAKER) 12.0 GM/DL 11.2-15.7 (test code = 410) HEMATOCRIT (BEAKER) 36.7 % 34.1-44.9 (test code = 411) MEAN CORPUSCULAR 94 fL 79-95 Discordant results VOLUME (BEAKER) (test compar ed to previous code = 753) results; clinic al correlation req uired MEAN CORPUSCULAR 30.6 pg 25.6-32.2 HEMOGLOBIN (BEAKER) (test code = 751) MEAN CORPUSCULAR 32.7 GM/DL 32.2-35.5 HEMOGLOBIN CONC (BEAKER) (test code = 752) RED CELL DISTRIBUTION 13.4 % 11.7-14.4 WIDTH (BEAKER) (test code = 412) PLATELET COUNT 304 K/CU MM 150-450 (BEAKER) (test code = 756) MEAN PLATELET VOLUME 8.7 fL 9.4-12.3 L (BEAKER) (test code = 754) NUCLEATED RED BLOOD 0 /100 WBC 0-0 CELLS (BEAKER) (test code = 413) NEUTROPHILS RELATIVE 51 % PERCENT (BEAKER) (test code = 429) LYMPHOCYTES RELATIVE 30 % PERCENT (BEAKER) (test code = 430) MONOCYTES RELATIVE 9 % PERCENT (BEAKER) (test code = 431) EOSINOPHILS RELATIVE 8 % PERCENT (BEAKER) (test code = 432) BASOPHILS RELATIVE 1 % PERCENT (BEAKER) (test code = 437) NEUTROPHILS ABSOLUTE 3.96 K/ L 1.56-6.13 COUNT (BEAKER) (test code = 670) LYMPHOCYTES ABSOLUTE 2.28 K/ L 1.18-3.74 COUNT (BEAKER) (test code = 414) MONOCYTES ABSOLUTE 0.70 K/ L 0.24-0.36 H COUNT (BEAKER) (test code = 415) EOSINOPHILS ABSOLUTE 0.61 K/ L 0.04-0.36 H COUNT (BEAKER) (test code = 416) BASOPHILS ABSOLUTE 0.08 K/ L 0.01-0.08 COUNT (BEAKER) (test code = 417) IMMATURE 1.00 % 0.00-1.00 GRANULOCYTES-RELATIVE PERCENT (BEAKER) (test code = 2801) POCT-GLUCOSE [id number] 21:27:10 Test Item Value Reference Range Interpretation Comments POC-GLUCOSE METER 171 mg/dL 70-110 H : TESTED A T [facility] 6720 (BEAKER) (test code = [facility], 1538) 9[address]: Technician Automatic/Techni renetta ID = [id number] for Gabino sigala Yogeshandrade POCT-GLUCOSE [id number] 17:31:07 Test Item Value Reference Range Interpretation Comments POC-GLUCOSE METER 148 mg/dL 70-110 H : TESTED A T [facility] 6720 (BEAKER) (test code = [facility], 1538) 24565: Technician Automatic/Techni renetta ID = [id number] for An Giselle bey POCT-GLUCOSE [id number] 11:48:09 Test Item Value Reference Range Interpretation Comments POC-GLUCOSE METER 174 mg/dL 70-110 H : TESTED Alberto Hercules [facility] 6720 (BEEVERETT) (test code = [place], 1538) [address]: Technician Automatic/Techni renetta ID = [id number] for An Giselle bey MR, BRAIN, WITHOUT [id number] 08:55:00Unlisted Reason for Exam - Click Yes and Enter Reason Below->No [facility] 1965 Sex: FFINAL REPORT MRI Brain without contrast Clinical History: Stroke, follow up Technique: MRI of the brain utilizing axial T2, FLAIR, GRE, DWI; sagittal and coronal T1-weighted images. Comparisons: MRI brain 02/05/2023, cervical MRI 02/08/2023 Findings: There is no evidence of acute infarctor hemorrhage. 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 There is no significant appearing white matter disease. There is no hydrocephalus, midline shift, or apparent mass effect. There are no extra-axial fluid collections. The major intracranial flow- voids appear patent. There is a slightly expansile appearance of the clivus with T1 marrow signal hypointensity throughout, unchanged from the recent MRIs. The suboccipital calvarial marrow signal also has a T1 hypointense appearance. The remainder of the calvarium marrowsignal is grossly unremarkable as is the visualized upper cervical marrow. IMPRESSION: Marrow signalabnormality involving the clivus and suboccipital bone with a slightly expansile appearance of the cl ivus. The differential diagnosis includes primary or secondary neoplasm, metabolic bone disease, andpossibly radiation treatment port. Clinical correlation is requested with dedicated skull base imaging with gadolinium if warranted. No evidence of acute infarct or hemorrhage. 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 Signed: Marty Herrera [facility] Verified Date/Time: 02/11/2023 08:55:50 Electronically signed by: MARTY HERRERA M.D.on 02/11/2023 08:55 AM BASIC METABOLIC [id number] 05:23:15 Test Item Value Reference Range Interpretation Comments SODIUM (BEAKER) 141 meq/L 136-145 (test code = 381) POTASSIUM 4.2 meq/L 3.5-5.1 Specimen slight ly (BEAKER) (test hemolyzed code = 379) CHLORIDE (BEAKER) 108 meq/L 98-107 H (test code = 382) CO2 (BEAKER) 26 meq/L 22-29 (test code = 355) BLOOD UREA 14 mg/dL 7-21 NITROGEN (BEAKER) (test code = 354) CREATININE 0.81 mg/dL 0.57-1.25 Specimen slight ly (BEAKER) (test hemolyzed code = 358) GLUCOSE RANDOM 124 mg/dL 70-105 H (BEAKER) (test code = 652) CALCIUM (BEAKER) 8.9 mg/dL 8.4-10.2 (test code = 697) EGFR (BEAKER) 85 Interpretatio n of eGFR (test code = mL/min/1.73 values Stage De scription 1092) sq m Result G1 Dequan l or high >=90 G2 Mildly decreased 60-89 G3a Mildl y to moderately 45-5 9 G3b Moderately to s everely 30-44 G4 Severl y decreased 15-29 G5 Kidney failure <15Reported eGF R is based on the CKD-EPI 2021 equation that d oes not use a race coefficientEsti mated GFR is not as accur ate as Creatinine lGo lo in predicting glom erular filtration rate . Estimated GFR is not appl icable for dialysis patien ts Technician Automatic ID - MMCBC W/PLT COUNT & AUTO [id number] 04:52:05 Test Item Value Reference Range Interpretation Comments WHITE BLOOD CELL COUNT 7.1 K/ L 3.5-10.5 (BEAKER) (test code = 775) RED BLOOD CELL COUNT 3.61 M/ L 3.93-5.22 L (BEAKER) (test code = 761) HEMOGLOBIN (BEAKER) 11.3 GM/DL 11.2-15.7 (test code = 410) HEMATOCRIT (BEAKER) 35.2 % 34.1-44.9 (test code = 411) MEAN CORPUSCULAR 98 fL 79-95 H Discordant results VOLUME (BEAKER) (test compar ed to previous code = 753) results; clinic al correlation req uired MEAN CORPUSCULAR 31.3 pg 25.6-32.2 HEMOGLOBIN (BEAKER) (test code = 751) MEAN CORPUSCULAR 32.1 GM/DL 32.2-35.5 L HEMOGLOBIN CONC (BEAKER) (test code = 752) RED CELL DISTRIBUTION 13.5 % 11.7-14.4 WIDTH (BEAKER) (test code = 412) PLATELET COUNT 254 K/CU MM 150-450 (BEAKER) (test code = 756) MEAN PLATELET VOLUME 9.1 fL 9.4-12.3 L (BEAKER) (test code = 754) NUCLEATED RED BLOOD 0 /100 WBC 0-0 CELLS (BEAKER) (test code = 413) NEUTROPHILS RELATIVE 47 % PERCENT (BEAKER) (test code = 429) LYMPHOCYTES RELATIVE 34 % PERCENT (BEAKER) (test code = 430) MONOCYTES RELATIVE 8 % PERCENT (BEAKER) (test code = 431) EOSINOPHILS RELATIVE 9 % PERCENT (BEAKER) (test code = 432) BASOPHILS RELATIVE 1 % PERCENT (BEAKER) (test code = 437) NEUTROPHILS ABSOLUTE 3.32 K/ L 1.56-6.13 COUNT (BEAKER) (test code = 670) LYMPHOCYTES ABSOLUTE 2.38 K/ L 1.18-3.74 COUNT (BEAKER) (test code = 414) MONOCYTES ABSOLUTE 0.57 K/ L 0.24-0.36 H COUNT (BEAKER) (test code = 415) EOSINOPHILS ABSOLUTE 0.63 K/ L 0.04-0.36 H COUNT (BEAKER) (test code = 416) BASOPHILS ABSOLUTE 0.10 K/ L 0.01-0.08 H COUNT (BEAKER) (test code = 417) IMMATURE 1.30 % 0.00-1.00 H GRANULOCYTES-RELATIVE PERCENT (LISAAKER) (test code = 2801) POC-Glucose [id number] 22:06:30 Test Item Value Reference Range Interpretation Comments POC-Glucose Meter (test 172 mg/dL 70-110 H : TE STED AT [facility] code = 1538) [address] [facility], 770 30: Technician Automatic/Techni renetta ID = [id number] for Jackie Layne Lab Interpretation (test Abnormal code = 75208-9) [facility] [id number] 22:06:30 Test Item Value Reference Range Interpretation Comments POC-GLUCOSE METER 172 mg/dL 70-110 H : TESTED A T [facility] [address]20 (ANDREEA) (test code = JOSE Conte [facility], 1538) [address]: Technician Automatic/Techni renetta ID = [id number] for Jackie Rossi MR, SPINE, LUMBAR, WITHOUT [id number] 18:13:00Unlisted Reason for Exam - Click Yes and Enter Reason Below->YesUnlisted Reason for Exam->left weaknessENLOE MEDICAL [facility]ENTERName: [facility]OOKS : 1965 Sex: FFINAL REPORT MR, SPINE, LUMBAR, WITHOUT CONTRAST INDICATION: Lumbar radiculopathy, no red flags, no prior managementleft weakness COMPARISON: None TECHNIQUE: Multiplanar, multisequence MR images of the lumbar spine without contrast. FINDINGS: For the purposes of this dictation, the last rib-bearing vertebra is labeled T12.Vertebral body height is maintained. Multilevel disc space height loss is present.Conus terminates at L1. Cauda equina demonstrates normal appearance.No acute findings in the paraspinal soft tissues. Evaluation of the individual levels demonstrates: L1/L2: No significant canal or foraminal narrowing.L2/L3: No significant canal or foraminal narrowing.L3/L4: Mild diffuse disc bulge with superimposed broad-based central disc herniation, which indents the ventral thecal sac. Mild bilateral facet arthrosis. Mild bilateral foraminal stenosis. No significant spinal canal stenosis.L4/L5: Mild diffuse disc bulge. Ligamentum flavum thickening. Bilateral facet arthropathyand hypertrophy.. No significant spinal canal stenosis. Moderate bilateral foraminal stenosis.L5/S1: Diffuse disc bulge. Ligamentum flavum thickening. Bilateral facet arthropathy and hypertrophy. No significant spinal canal stenosis. Mild bilateral foraminal stenosis. IMPRESSION:1.At L3-L4, there is moderate bilateral foraminal stenosis with crowding of the exiting L4 nerve roots.2.At L3-L4 and L4-E6eprka is mild bilateral foraminal stenosis. Signed: Alexandra Aburto [facility] Verified Date/Time: 02/10/2023 18:13:32 POCT-GLUCOSE [id number] 17:19:52 Test Item Value Reference Range Interpretation Comments POC-GLUCOSE METER 202 mg/dL 70-110 H : TESTED A T [facility] 6720 ([place]) (test code = [facility], [facility]) [address]: Technician Automatic/Techni renetta ID = [id number] for An derson, Giselle POCT-GLUCOSE [id number] 12:03:14 Test Item Value Reference Range Interpretation Comments POC-GLUCOSE METER 218 mg/dL 70-110 H : TESTED A T [facility] 6720 (BEAKER) (test code = [facility], 1538) [address]: Technician Automatic/Techni renetta ID = [id number] for An derson, Giselle POCT-GLUCOSE [id number] 08:57:33 Test Item Value Reference Range Interpretation Comments POC-GLUCOSE METER 170 mg/dL 70-110 H : [facility] T [facility] 67[facility] (test code = [facility], 1538) [address]: Technician Automatic/Techni renetta ID = [id number] for An Giselle bey (CELLAVISION MANUAL DIFF)2023-02-10 08:20:05 Test Item Value Reference Range Interpretation Comments NEUTROPHILS - REL 67 % (CELLAVISION)(BEAKER) (test code = 2816) LYMPHOCYTES - REL 20 % (CELLAVISION)(BEAKER) (test code = 2817) MONOCYTES - REL 4 % (CELLAVISION)(BEAKER) (test code = 2818) EOSINOPHILS - REL 5 % (CELLAVISION)(BEAKER) (test code = 2819) BASOPHILS - REL 1 % (CELLAVISION)(BEAKER) (test code = 2820) BANDS - REL (CELLAVISION)(BEAKER) 2 % 0-10 (test code = 2826) ATYPICAL LYMPHOCYTES - REL 1 % 0-0 H (CELLAVISION)(BEAKER) (test code = 2829) NEUTROPHILS - ABS 5.16 K/ul 1.56-6.13 (CELLAVISION)(BEAKER) (test code = 2830) LYMPHOCYTES - ABS 1.54 K/ul 1.18-3.74 (CELLAVISION)(BEAKER) (test code = 2831) MONOCYTES - ABS 0.31 K/uL 0.24-0.36 (CELLAVISION)(BEAKER) (test code = 2832) EOSINOPHILS - ABS 0.39 K/uL 0.04-0.36 H (CELLAVISION)(BEAKER) (test code = 2834) BASOPHILS - ABS 0.08 K/uL 0.01-0.08 (CELLAVISION)(BEAKER) (test code = 2835) BANDS - ABS (CELLAVISION)(BEAKER) 0.15 K/uL 0.00-0.80 (test code = 2840) ATYPICAL LYMPHOCYTES - ABS 0.08 K/uL 0.00-0.00 H (CELLAVISION)(BEAKER) (test code = 1388) TOTAL COUNTED (BEAKER) (test code = 100 1351) WBC MORPHOLOGY (BEAKER) (test code Normal = 487) PLT MORPHOLOGY (BEAKER) (test code Normal = 486) POLYCHROMATOPHILLIC RBCS(BEAKER) 1+ few (test code = 478) ANISOCYTOSIS (BEAKER) (test code = 1+ few 961) MICROCYTES (BEAKER) (test code = 1+ few 965) MACROCYTES (BEAKER) (test code = 1+ few 964) ARTIFACT (CELLAVISION)(BEAKER) Present (test code = 3432) PLATELET CONCENTRATION Adequate (CELLAVISION)(BEAKER) (test code = 3438) Technician Automatic ID - Bridget OverholtUser comments: Slide comments:CBC W/PLT COUNT & AUTO [id number] 08:20:04 Test Item Value Reference Range Interpretation Comments WHITE BLOOD CELL COUNT (BEAKER) 7.7 K/ L 3.5-10.5 (test code = 775) RED BLOOD CELL COUNT (BEAKER) 3.92 M/ L 3.93-5.22 L (test code = 761) HEMOGLOBIN (BEAKER) (test code = 11.8 GM/DL 11.2-15.7 410) HEMATOCRIT (BEAKER) (test code = 36.7 % 34.1-44.9 411) MEAN CORPUSCULAR VOLUME (BEAKER) 94 fL 79-95 (test code = 753) MEAN CORPUSCULAR HEMOGLOBIN 30.1 pg 25.6-32.2 (BEAKER) (test code = 751) MEAN CORPUSCULAR HEMOGLOBIN CONC 32.2 GM/DL 32.2-35.5 (BEAKER) (test code = 752) RED CELL DISTRIBUTION WIDTH 13.4 % 11.7-14.4 (BEAKER) (test code = 412) PLATELET COUNT (BEAKER) (test 262 K/CU MM 150-450 code = 756) MEAN PLATELET VOLUME (BEAKER) 9.0 fL 9.4-12.3 L (test code = 754) NUCLEATED RED BLOOD CELLS 0 /100 WBC 0-0 (BEAKER) (test code = 413) BASIC METABOLIC [id number] 05:31:52 Test Item Value Reference Range Interpretation Comments SODIUM (BEAKER) 141 meq/L 136-145 (test code = 381) POTASSIUM 4.0 meq/L 3.5-5.1 (BEAKER) (test code = 379) CHLORIDE (BEAKER) 108 meq/L 98-107 H (test code = 382) CO2 (BEAKER) 25 meq/L 22-29 (test code = 355) BLOOD UREA 14 mg/dL 7-21 NITROGEN (LISAAKER) (test code = 354) CREATININE 0.87 mg/dL 0.57-1.25 (LISAAKER) (test code = 358) GLUCOSE RANDOM 126 mg/dL 70-105 H (ANDREEA) (test code = 652) CALCIUM (ANDREEA) 8.9 mg/dL 8.4-10.2 (test code = 697) EGFR (EVERETT) 78 Interpretatio n of eGFR (test code = mL/min/1.73 values Stage De scription 1092) sq m Result G1 Dequan l or high >=90 G2 Mildly decreased 60-89 G3a Mildl y to moderately 45-5 9 G3b Moderately to s everely 30-44 G4 Severl y decreased 15-29 G5 Kidney failure <15Reported eGF R is based on the CKD-EPI 2020 equation that d oes not use a race coefficientEsti mated GFR is not as accur ate as Creatinine Glo teresita in predicting glom erular filtration rate . Estimated GFR is not appl icable for dialysis patien ts Technician Automatic ID - MARCOPOCT-GLUCOSE [id number] 21:47:23 Test Item Value Reference Range Interpretation Comments POC-GLUCOSE METER 171 mg/dL 70-110 H : TESTED A T [facility] 6720 ([facility] (test code = [place], 1538) [address]: Technician Automatic/Techni renetta ID = [id number] for Sa becerra (contract), Aus tin 2D Echo W/Doppler(CW/PW/Color)2023-02-09 18:07:56Ejection FractionSLEH ECHO [facility](CW/PW/Color)2023-02-09 18:07:56Ejection FractionSLEH ECHO HEARTLAB [facility] W/Doppler(CW/PW/Color) 2023-02-09 18:07:56Ejection FractionSLEH ECHO HEARTLAB [facility] Echo W/Doppler(CW/PW/Color)2023-02-09 18:07:56Ejection FractionSLEH ECHO HEARTLAB [facility] W/Doppler(CW/PW/Color)2023-02-09 18:07:56Ejection FractionSLEH ECHO HEARTLAB [facility]CK[facility] [id number] 12:55:13 Test Item Value Reference Range Interpretation Comments POC-GLUCOSE METER 137 mg/dL 70-110 H : TESTED A T [facility] 6720 (ANDREEA) (test code = [place], 1538) [address]: Technician Automatic/Techni renetta ID = [id number] for Di Avis Wright RAD, CHEST, 1 VIEW, NON [id number] 10:52:00Reason for exam:->WheezyShould this be performed at the bedside?->Yes [facility] : 1965 Sex: FFINAL REPORT Chest one view. Clinical history: Wheezy Comparison: None Discussion: Afrontal chest is provided. The cardiac and mediastinal contours are normal. There is no pneumothorax, branden pulmonary edema, consolidation or large pleural effusion. The bony structures are unremarkable. Cholecystectomy clips are noted. Signed: Tee Max Verified Date/Time: 02/09/2023 10:52:34 Reading Location: [address] Ortho Consult Reading Room (CELLAVISION MANUAL DIFF)2023-02-09 07:52:15 Test Item Value Reference Range Interpretation Comments NEUTROPHILS - REL 65 % (CELLAVISION)(BEAKER) (test code = 2816) LYMPHOCYTES - REL 20 % (CELLAVISION)(BEAKER) (test code = 2817) MONOCYTES - REL 6 % (CELLAVISION)(BEAKER) (test code = 2818) EOSINOPHILS - REL 8 % (CELLAVISION)(BEAKER) (test code = 2819) BANDS - REL (CELLAVISION)(BEAKER) 1 % 0-10 (test code = 2826) NEUTROPHILS - ABS 6.31 K/ul 1.56-6.13 H (CELLAVISION)(BEAKER) (test code = 2830) LYMPHOCYTES - ABS 1.94 K/ul 1.18-3.74 (CELLAVISION)(BEAKER) (test code = 2831) MONOCYTES - ABS 0.58 K/uL 0.24-0.36 H (CELLAVISION)(BEAKER) (test code = 2832) EOSINOPHILS - ABS 0.78 K/uL 0.04-0.36 H (CELLAVISION)(BEAKER) (test code = 2834) BANDS - ABS (CELLAVISION)(BEAKER) 0.10 K/uL 0.00-0.80 (test code = 2840) TOTAL COUNTED (BEAKER) (test code 100 = 1351) WBC MORPHOLOGY (BEAKER) (test Normal code = 487) PLT MORPHOLOGY (BEAKER) (test Normal code = 486) ANISOCYTOSIS (BEAKER) (test code 2+ moderate = 961) MICROCYTES (BEAKER) (test code = 1+ few 965) MACROCYTES (BEAKER) (test code = 1+ few 964) ARTIFACT (CELLAVISION)(BEAKER) Present (test code = 3432) PLATELET CONCENTRATION Adequate (CELLAVISION)(BEAKER) (test code = 3438) Technician Automatic ID - Bridget OverholtUser comments: Slide comments:CBC W/PLT COUNT & AUTO [id number] 07:52:14 Test Item Value Reference Range Interpretation Comments WHITE BLOOD CELL COUNT (BEAKER) 9.7 K/ L 3.5-10.5 (test code = 775) RED BLOOD CELL COUNT (BEAKER) 3.88 M/ L 3.93-5.22 L (test code = 761) HEMOGLOBIN (BEAKER) (test code = 12.0 GM/DL 11.2-15.7 410) HEMATOCRIT (BEAKER) (test code = 36.0 % 34.1-44.9 411) MEAN CORPUSCULAR VOLUME (BEAKER) 93 fL 79-95 (test code = 753) MEAN CORPUSCULAR HEMOGLOBIN 30.9 pg 25.6-32.2 (BEAKER) (test code = 751) MEAN CORPUSCULAR HEMOGLOBIN CONC 33.3 GM/DL 32.2-35.5 (BEAKER) (test code = 752) RED CELL DISTRIBUTION WIDTH 13.2 % 11.7-14.4 (BEAKER) (test code = 412) PLATELET COUNT (BEAKER) (test 260 K/CU MM 150-450 code = 756) MEAN PLATELET VOLUME (BEAKER) 8.9 fL 9.4-12.3 L (test code = 754) NUCLEATED RED BLOOD CELLS 0 /100 WBC 0-0 (BEAKER) (test code = 413) MR, SPINE, CERVICAL, WITHOUT [id number] 07:27:00Unlisted Reason for Exam - Click Yes and Enter Reason Below->Yespersistent new left weakness NAIAon MRI brainUnlisted Reason for Exam->persistent new left weakness NAIA on MRI brainENLOE MEDICAL [facility]ENTERName: ALAN CROOKS : 1965 Sex: FFINAL REPORT MRI cervical spine without contrast CLINICAL HISTORY: Neck pain, chronic, degenerative changes on xraypersistent new left weakness NAIA on MRI brain TECHNIQUE: Multiplanar,multisequence noncontrast MRI of the cervical spine was performed. COMPARISON: None available. FINDINGS: Mild to moderate disc space narrowing at C3-C6 Straightening of the normal cervical lordosis. The bone marrow signal is normal. Mild to moderate spondylosis and facet arthropathy are present withinthe spine. The craniocervical junction and visualized intracranial compartment are unremarkable. Thevisualized spinal cord is normal in size, contour and signal. The intervertebral disc spaces are normal in height and signal. The individual disc levels demonstrate the following: C2-C3: No significantspinal canal or neural foraminal stenosis. C3-C4: Posterior disc osteophyte complex and facet arthropathy with moderate to severe bilateral neural foraminal stenosis and moderate to severe spinal canalstenosis C4-C5: Posterior disc osteophyte complex with moderate to severe right neural foraminal stenosis and moderate spinal canal stenosis C5-C6: Posterior disc osteophyte complex with moderate spinal canal stenosis C6-C7: No significant spinal canal or neural foraminal stenosis. C7-T1: No significant spinal canal or neural foraminal stenosis. The prevertebral and paraspinal soft tissues are within normal limits. IMPRESSION: 1.Degenerative changes within the cervical spine, as detailed above, without acute fracture or malalignment identified.2.Moderate to severe degenerative spinal canal stenosisat C3-C4. No spinal cord signal abnormality identified.3.Moderate to severe degenerative bilateral neural foraminal stenosis at C3-C4 and the right C4-C5 levels. Signed: Audi Gan [facility] VerifiedDate/Time: 02/09/2023 07:27:00 BASIC METABOLIC [id number] 04:57:57 Test Item Value Reference Range Interpretation Comments SODIUM (BEAKER) 140 meq/L 136-145 (test code = 381) POTASSIUM 3.9 meq/L 3.5-5.1 (BEAKER) (test code = 379) CHLORIDE (BEAKER) 109 meq/L 98-107 H (test code = 382) CO2 (BEAKER) 23 meq/L 22-29 (test code = 355) BLOOD UREA 12 mg/dL 7-21 NITROGEN (BEAKER) (test code = 354) CREATININE 0.88 mg/dL 0.57-1.25 (BEAKER) (test code = 358) GLUCOSE RANDOM 131 mg/dL 70-105 H (BEAKER) (test code = 652) CALCIUM (BEAKER) 8.7 mg/dL 8.4-10.2 (test code = 697) EGFR ([facility]) 77 Interpretatio n of eGFR (test code = mL/min/1.73 values Stage De scription 1092) sq m Result G1 Dequan l or high >=90 G2 Mildly decreased 60-89 G3a Mildl y to moderately 45-5 9 G3b Moderately to s everely 30-44 G4 Severl y decreased 15-29 G5 Kidney failure <15Reported eGF R is based on the CKD-EPI 1 equation that d oes not use a race coefficientEsti mated GFR is not as accur ate as Creatinine Glo teresita in predicting glom erular filtration rate . Estimated GFR is not appl icable for dialysis patien ts Technician Automatic ID - MARCOPOCT-GLUCOSE [id number] 16:13:34 Test Item Value Reference Range Interpretation Comments POC-GLUCOSE METER 163 mg/dL 70-110 H : TESTED A T [facility] 6720 ([facility]) (test code = JOYAZ Dg [facility], 153) [address]: Technician Automatic/Techni renetta ID = [id number] for [facility] pul[facility] POCT-GLUCOSE [id number] 11:13:59 Test Item Value Reference Range Interpretation Comments POC-GLUCOSE METER 129 mg/dL 70-110 H : TESTED A T [facility] 6720 ([facility]) (test code = JOYAZ Dg [facility], 153) [address]: Technician Automatic/Techni renetta ID = [id number] for [facility] CenterDebbieu URINE [id number] 09:44:46 Test Item Value Reference Interpretation Comments Range CULTURE ([facility]) (test ESCHERICHIA COLI A > 100,000 col/mL code = 1095) Escherichia col i Amikacin (test code = S 1) Ampicillin + Sulbactam R (test code = 6) Aztreonam (test code = S 32) Cefepime (test code = S 51) Cefoxitin (test code = S 68) Ceftazidime (test code S = 27) Ceftriaxone (test code S = 52) Ertapenem (test code = S 38) Gentamicin (test code R = 18) Levofloxacin (test S code = 22) Meropenem (test code = S 34) Nitrofurantoin (test S code = 23) Piperacillin + S Tazobactam (test code = 29) Tetracycline (test R code = 2) Tobramycin (test code R = 25) Trimethoprim + R Sulfamethoxazole (test code = 47) CULTURE (BEAKER) (test A 10-19 ,000 col/mL code = 1095) Beta-hemolytic streptococcus group B, by serological grouping If your patient does not have signs or symptoms of UTI, it is recommended NOT to treat, with the exception of and prior to urologic procedures.POCT- GLUCOSE [id number] 07:30:08 Test Item Value Reference Range Interpretation Comments POC-GLUCOSE METER 144 mg/dL 70-110 H : TESTED A T [facility] 6720 (BEAKER) (test code = [place], 1538) [address]: Technician Automatic/Techni renetta ID = [id number] for Hamilton gibbs BASIC METABOLIC [id number] 04:56:42 Test Item Value Reference Range Interpretation Comments SODIUM (BEAKER) 141 meq/L 136-145 (test code = 381) POTASSIUM 3.8 meq/L 3.5-5.1 (BEAKER) (test code = 379) CHLORIDE (BEAKER) 110 meq/L 98-107 H (test code = 382) CO2 (BEAKER) 24 meq/L 22-29 (test code = 355) BLOOD UREA 14 mg/dL 7-21 NITROGEN (BEAKER) (test code = 354) CREATININE 0.86 mg/dL 0.57-1.25 (BEAKER) (test code = 358) GLUCOSE RANDOM 111 mg/dL 70-105 H (BEAKER) (test code = 652) CALCIUM (BEAKER) 8.6 mg/dL 8.4-10.2 (test code = 697) EGFR (BEAKER) 79 Interpretatio n of eGFR (test code = mL/min/1.73 values Stage De scription 1092) sq m Result G1 Dequan l or high >=90 G2 Mildly decreased 60-89 G3a Mildl y to moderately 45-5 9 G3b Moderately to s everely 30-44 G4 Severl y decreased 15-29 G5 Kidney failure <15Reported eGF R is based on the CKD-EPI 2020 equation that d oes not use a race coefficientEsti mated GFR is not as accur ate as Creatinine Glo lo in predicting glom erular filtration rate . Estimated GFR is not appl icable for dialysis patien ts Technician Automatic ID - MMCBC W/PLT COUNT & AUTO [id number] 04:42:25 Test Item Value Reference Range Interpretation Comments WHITE BLOOD CELL COUNT (BEAKER) 6.9 K/ L 3.5-10.5 (test code = 775) RED BLOOD CELL COUNT (BEAKER) 3.79 M/ L 3.93-5.22 L (test code = 761) HEMOGLOBIN (BEAKER) (test code = 11.7 GM/DL 11.2-15.7 410) HEMATOCRIT (BEAKER) (test code = 35.9 % 34.1-44.9 411) MEAN CORPUSCULAR VOLUME (BEAKER) 95 fL 79-95 (test code = 753) MEAN CORPUSCULAR HEMOGLOBIN 30.9 pg 25.6-32.2 (BEAKER) (test code = 751) MEAN CORPUSCULAR HEMOGLOBIN CONC 32.6 GM/DL 32.2-35.5 (BEAKER) (test code = 752) RED CELL DISTRIBUTION WIDTH 13.4 % 11.7-14.4 (BEAKER) (test code = 412) PLATELET COUNT (BEAKER) (test 252 K/CU MM 150-450 code = 756) MEAN PLATELET VOLUME (BEAKER) 9.2 fL 9.4-12.3 L (test code = 754) NUCLEATED RED BLOOD CELLS 0 /100 WBC 0-0 (BEAKER) (test code = 413) NEUTROPHILS RELATIVE PERCENT 52 % (BEAKER) (test code = 429) LYMPHOCYTES RELATIVE PERCENT 28 % (BEAKER) (test code = 430) MONOCYTES RELATIVE PERCENT 8 % (BEAKER) (test code = 431) EOSINOPHILS RELATIVE PERCENT 12 % (BEAKER) (test code = 432) BASOPHILS RELATIVE PERCENT 0 % (BEAKER) (test code = 437) NEUTROPHILS ABSOLUTE COUNT 3.57 K/ L 1.56-6.13 (BEAKER) (test code = 670) LYMPHOCYTES ABSOLUTE COUNT 1.90 K/ L 1.18-3.74 (BEAKER) (test code = 414) MONOCYTES ABSOLUTE COUNT (BEAKER) 0.53 K/ L 0.24-0.36 H (test code = 415) EOSINOPHILS ABSOLUTE COUNT 0.79 K/ L 0.04-0.36 H (BEAKER) (test code = 416) BASOPHILS ABSOLUTE COUNT (BEAKER) 0.03 K/ L 0.01-0.08 (test code = 417) IMMATURE GRANULOCYTES-RELATIVE 0.40 % 0.00-1.00 PERCENT (BEAKER) (test code = 2801) POCT-GLUCOSE [id number] 11:54:00 Test Item Value Reference Range Interpretation Comments POC-GLUCOSE METER 111 mg/dL 70-110 H : TESTED A T [facility] 6720 (BEAKER) (test code = [facility], 1538) [address]: Technician Automatic/Techni renetta ID = [id number] for Um eh, Kevinumbu POCT-GLUCOSE [id number] 07:35:34 Test Item Value Reference Range Interpretation Comments POC-GLUCOSE METER 123 mg/dL 70-110 H : TESTED A T [facility] 6720 (BEAKER) (test code = [facility], 1538) [address]: Technician Automatic/Techni renetta ID = [id number] for Um eh, Akumbu BASIC METABOLIC [id number] 06:13:57 Test Item Value Reference Range Interpretation Comments SODIUM (BEAKER) 140 meq/L 136-145 (test code = 381) POTASSIUM 4.2 meq/L 3.5-5.1 Specimen slight ly (BEAKER) (test hemolyzed code = 379) CHLORIDE (BEAKER) 109 meq/L 98-107 H (test code = 382) CO2 (BEAKER) 21 meq/L 22-29 L (test code = 355) BLOOD UREA 16 mg/dL 7-21 NITROGEN (BEAKER) (test code = 354) CREATININE 0.86 mg/dL 0.57-1.25 Specimen slight ly (BEAKER) (test hemolyzed code = 358) GLUCOSE RANDOM 112 mg/dL 70-105 H (BEAKER) (test code = 652) CALCIUM (BEAKER) 8.2 mg/dL 8.4-10.2 L (test code = 697) EGFR (BEAKER) 79 Interpretatio n of eGFR (test code = mL/min/1.73 values Stage De scription 1092) sq m Result G1 Dequan l or high >=90 G2 Mildly decreased 60-89 G3a Mildl y to moderately 45-5 9 G3b Moderately to s everely 30-44 G4 Severl y decreased 15-29 G5 Kidney failure <15Reported eGF R is based on the CKD-EPI 2020 equation that d oes not use a race coefficientEsti mated GFR is not as accur ate as Creatinine Glo lo in predicting glom erular filtration rate . Estimated GFR is not appl icable for dialysis patien ts Technician Automatic ID - ADMINCBC W/PLT COUNT & AUTO [id number] 05:02:41 Test Item Value Reference Range Interpretation Comments WHITE BLOOD CELL COUNT (BEAKER) 6.6 K/ L 3.5-10.5 (test code = 775) RED BLOOD CELL COUNT (BEAKER) 3.72 M/ L 3.93-5.22 L (test code = 761) HEMOGLOBIN (BEAKER) (test code = 11.6 GM/DL 11.2-15.7 410) HEMATOCRIT (BEAKER) (test code = 35.4 % 34.1-44.9 411) MEAN CORPUSCULAR VOLUME (BEAKER) 95 fL 79-95 (test code = 753) MEAN CORPUSCULAR HEMOGLOBIN 31.2 pg 25.6-32.2 (BEAKER) (test code = 751) MEAN CORPUSCULAR HEMOGLOBIN CONC 32.8 GM/DL 32.2-35.5 (BEAKER) (test code = 752) RED CELL DISTRIBUTION WIDTH 13.7 % 11.7-14.4 (BEAKER) (test code = 412) PLATELET COUNT (BEAKER) (test 240 K/CU MM 150-450 code = 756) MEAN PLATELET VOLUME (BEAKER) 9.3 fL 9.4-12.3 L (test code = 754) NUCLEATED RED BLOOD CELLS 0 /100 WBC 0-0 (BEAKER) (test code = 413) NEUTROPHILS RELATIVE PERCENT 46 % (BEAKER) (test code = 429) LYMPHOCYTES RELATIVE PERCENT 33 % (BEAKER) (test code = 430) MONOCYTES RELATIVE PERCENT 8 % (BEAKER) (test code = 431) EOSINOPHILS RELATIVE PERCENT 13 % (BEAKER) (test code = 432) BASOPHILS RELATIVE PERCENT 1 % (BEAKER) (test code = 437) NEUTROPHILS ABSOLUTE COUNT 3.02 K/ L 1.56-6.13 (BEAKER) (test code = 670) LYMPHOCYTES ABSOLUTE COUNT 2.16 K/ L 1.18-3.74 (BEAKER) (test code = 414) MONOCYTES ABSOLUTE COUNT (BEAKER) 0.51 K/ L 0.24-0.36 H (test code = 415) EOSINOPHILS ABSOLUTE COUNT 0.84 K/ L 0.04-0.36 H (BEAKER) (test code = 416) BASOPHILS ABSOLUTE COUNT (BEAKER) 0.03 K/ L 0.01-0.08 (test code = 417) IMMATURE GRANULOCYTES-RELATIVE 0.50 % 0.00-1.00 PERCENT (BEAKER) (test code = 2801) POCT-GLUCOSE [id number] 04:50:54 Test Item Value Reference Range Interpretation Comments POC-GLUCOSE METER 117 mg/dL 70-110 H : TESTED A T [facility]20 ([facility]) (test code = [facility], 1538) [address]67[address]: Technician Automatic/Techni renetta ID = [id number] for JULIENNE BROWN POCT-GLUCOSE [id number] 14:17:30 Test Item Value Reference Range Interpretation Comments POC-GLUCOSE METER 105 mg/dL 70-110 : TESTED A T [facility] 67[facility] (BEAKER) (test code = [facility] [employer] [facility], 1538) [address]: Technician Automatic/Techni renetta ID = [id number] for Farnaz Negron MR, MRA, BRAIN, WITHOUT [id number] 04:44:00Unlisted Reason for Exam - Click Yes and Enter Reason Below->YesUnlisted Reason for Exam->concern for [facility] : 1965 Sex: FFINAL REPORT EXAM/TECHNIQUE: MRI of the brain without IV contrast. MR angiography ofthe head without IV contrast. 3-D reconstructions of the angiography were performed. Multiplanar multisequence images were acquired. INDICATION: Stroke. COMPARISON: None. FINDINGS: BRAIN Encephalomalacia and gliosis centered in the putamen with extension to the internal capsule almonte radiata. Susceptibility artifact is present at this site consistent with remote blood products. No other foci of susceptibility are identified. Normal parenchymal volume. Mild burden of T2/FLAIR white matter hyperintense lesions, likely reflecting chronic microvascular changes. No abnormal parenchymal DWI hyperintensity. Ventricles are normal. Basal cisterns are patent. No midline shift. No tonsillar ectopia. Midlinestructures are unremarkable. Visualized face and upper neck are unremarkable. Flow voids are normal.Orbits are normal. Paranasal sinuses are clear. Mastoid air cells are clear. No suspicious osseous lesion. MR ANGIOGRAPHY OF THE HEAD, EMPLOYING USE OF 3D RECONSTRUCTIONS. HEAD: Bilateral intracranial internal carotid arteries are patent without significant stenosis. The bilateral M1 and M2 segments of the MCAs are patent. The bilateral A1 and A2 segments of the ACAs are patent. The anterior communicating artery is patent. The bilateral vertebral arteries are patent. The bilateral PICAs are patent. The basilar artery is patent. The left AICA is patent. The right AICA is not visualized. The SCAs arepatent. The P1 and P2 segments of the HYDROMETEOROLOGICAL TECHNICIAN are patent. Unremarkable appearance of the posterior communicating arteries. no visible aneurysm. 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 No large vessel occlusion or aneurysm.4.No other foci susceptibility to suggest amyloid angiopathy or hypertensive angiopathy otherwise.Signed: Sonu Singh MDReport Verified Date/Time: 02/06/2023 04:44:49 MR, BRAIN, WITHOUT [id number] 04:44:00Please do SWI as wellUnlisted Reason for Exam - Click Yes and Enter Reason Below->No [facility] : 1965 Sex: FFINAL REPORT EXAM/TECHNIQUE: MRI of the brain without IV contrast. MR angiography ofthe head without IV contrast. 3-D reconstructions of the angiography were performed. Multiplanar multisequence images were acquired. INDICATION: Stroke. COMPARISON: None. FINDINGS: BRAIN Encephalomalacia and gliosis centered in the putamen with extension to the internal capsule almonte radiata. Susceptibility artifact is present at this site consistent with remote blood products. No other foci of susceptibility are identified. Normal parenchymal volume. Mild burden of T2/FLAIR white matter hyperintense lesions, likely reflecting chronic microvascular changes. No abnormal parenchymal DWI hyperintensity. Ventricles are normal. Basal cisterns are patent. No midline shift. No tonsillar ectopia. Midlinestructures are unremarkable. Visualized face and upper neck are unremarkable. Flow voids are normal.Orbits are normal. Paranasal sinuses are clear. Mastoid air cells are clear. No suspicious osseous lesion. MR ANGIOGRAPHY OF THE HEAD, EMPLOYING USE OF 3D RECONSTRUCTIONS. HEAD: Bilateral intracranial internal carotid arteries are patent without significant stenosis. The bilateral M1 and M2 segments of the MCAs are patent. The bilateral A1 and A2 segments of the ACAs are patent. The anterior communicating artery is patent. The bilateral vertebral arteries are patent. The bilateral PICAs are patent. The basilar artery is patent. The left AICA is patent. The right AICA is not visualized. The SCAs arepatent. The P1 and P2 segments of the HYDROMETEOROLOGICAL TECHNICIAN are patent. Unremarkable appearance of the posterior communicating arteries. no visible aneurysm. 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 No large vessel occlusion or aneurysm.4.No other foci susceptibility to suggest amyloid angiopathy or hypertensive angiopathy otherwise.Signed: Sonu Singh MDReport Verified Date/Time: 02/06/2023 04:44:49 [id number] 04:43:55 Test Item Value Reference Range Interpretation Comments MAGNESIUM (BEAKER) (test code = 2.1 mg/dL 1.6-2.6 627) Technician Automatic ID - [id number] 04:43:55 Test Item Value Reference Range Interpretation Comments PHOSPHORUS (BEAKER) (test code = 3.5 mg/dL 2.3-4.7 604) Technician Automatic ID - DBBASIC METABOLIC [id number] 04:43:54 Test Item Value Reference Range Interpretation Comments SODIUM (BEAKER) 140 meq/L 136-145 (test code = 381) POTASSIUM 3.9 meq/L 3.5-5.1 (BEAKER) (test code = 379) CHLORIDE (BEAKER) 110 meq/L 98-107 H (test code = 382) CO2 (BEAKER) 23 meq/L 22-29 (test code = 355) BLOOD UREA 22 mg/dL 7-21 H NITROGEN (BEAKER) (test code = 354) CREATININE 0.99 mg/dL 0.57-1.25 (BEAKER) (test code = 358) GLUCOSE RANDOM 121 mg/dL 70-105 H (BEAKER) (test code = 652) CALCIUM (BEAKER) 8.8 mg/dL 8.4-10.2 (test code = 697) EGFR (BEAKER) 67 Interpretatio n of eGFR (test code = mL/min/1.73 values Stage De scription 1092) sq m Result G1 Norm al or high >=90 G2 Mildly decreased 60-89 G3a Mildl y to moderately 45-5 9 G3b Moderately to s everely 30-44 G4 Severl y decreased 15-29 G5 Kidne y failure <15Reported eGF R is based on the CKD-EPI 2020 equation that d oes not use a race coefficientEsti mated GFR is not as accur ate as Creatinine Glo teresita in predicting glom erular filtration rate . Estimated GFR is not appl icable for dialysis patien ts Technician Automatic ID - DBCBC W/PLT COUNT & AUTO [id number] 04:27:50 Test Item Value Reference Range Interpretation Comments WHITE BLOOD CELL COUNT (BEAKER) 10.3 K/ L 3.5-10.5 (test code = 775) RED BLOOD CELL COUNT (BEAKER) 3.62 M/ L 3.93-5.22 L (test code = 761) HEMOGLOBIN (BEAKER) (test code = 11.2 GM/DL 11.2-15.7 410) HEMATOCRIT (BEAKER) (test code = 34.2 % 34.1-44.9 411) MEAN CORPUSCULAR VOLUME (BEAKER) 95 fL 79-95 (test code = 753) MEAN CORPUSCULAR HEMOGLOBIN 30.9 pg 25.6-32.2 (BEAKER) (test code = 751) MEAN CORPUSCULAR HEMOGLOBIN CONC 32.7 GM/DL 32.2-35.5 (BEAKER) (test code = 752) RED CELL DISTRIBUTION WIDTH 13.3 % 11.7-14.4 (BEAKER) (test code = 412) PLATELET COUNT (BEAKER) (test 250 K/CU MM 150-450 code = 756) MEAN PLATELET VOLUME (BEAKER) 9.6 fL 9.4-12.3 (test code = 754) NUCLEATED RED BLOOD CELLS 0 /100 WBC 0-0 (BEAKER) (test code = 413) NEUTROPHILS RELATIVE PERCENT 65 % (BEAKER) (test code = 429) LYMPHOCYTES RELATIVE PERCENT 18 % (BEAKER) (test code = 430) MONOCYTES RELATIVE PERCENT 8 % (BEAKER) (test code = 431) EOSINOPHILS RELATIVE PERCENT 8 % (BEAKER) (test code = 432) BASOPHILS RELATIVE PERCENT 0 % (BEAKER) (test code = 437) NEUTROPHILS ABSOLUTE COUNT 6.72 K/ L 1.56-6.13 H (BEAKER) (test code = 670) LYMPHOCYTES ABSOLUTE COUNT 1.89 K/ L 1.18-3.74 (BEAKER) (test code = 414) MONOCYTES ABSOLUTE COUNT (BEAKER) 0.77 K/ L 0.24-0.36 H (test code = 415) EOSINOPHILS ABSOLUTE COUNT 0.85 K/ L 0.04-0.36 H (BEAKER) (test code = 416) BASOPHILS ABSOLUTE COUNT (BEAKER) 0.02 K/ L 0.01-0.08 (test code = 417) IMMATURE GRANULOCYTES-RELATIVE 0.40 % 0.00-1.00 PERCENT (BEAKER) (test code = 2801) POCT-GLUCOSE [id number] 00:25:25 Test Item Value Reference Range Interpretation Comments POC-GLUCOSE METER 187 mg/dL 70-110 H : TESTED A T [facility] 67[facility] (BEAKER) (test code = [facility] R [facility], 1538) [address]: Technician Automatic/Techni renetta ID = [id number] for HENOK CAMPOVERDE POCT-GLUCOSE [id number] 23:55:16 Test Item Value Reference Range Interpretation Comments POC-GLUCOSE METER 140 mg/dL 70-110 H : TESTED A T [facility] 6720 (BEAKER) (test code = [employer] [facility], 1538) 58109: Technician Automatic/Techni renetta ID = [id number] for Lula Hartley Rapid drug screen, [id number] 19:45:43 Test Item Value Reference Range Interpretation Comments Barbiturate Screen Negative Negative (test code = 64062-9) Benzodiazepine Screen Negative Negative (test code = 22494-6) Cocaine (Metab.) Negative Negative Screen (test code = 3397-7) Methadone Screen (test Negative Negative code = 59143-4) Opiate Screen (test Negative Negative code = 70947-4) Cannabinoid Screen Negative Negative (test code = 40686-9) Amph/Methamph Screen Negative Negative (test code = 21715-0) Phencyclidine Screen Negative Negative (test code = 24290-4) pH, UA (test code = 6.5 5.0-8.0 5803-2) JAMESON (test code = JAMESON) DRUG CUTOFF CONC.Cocaine 300 ng/mL Cannabinoid 50 ng/mLBenzodiazepine 200 ng/mLBarbiturate 200 ng/mLPhencyclidine 25 ng/mLOpiate 300 ng/mLMethadone 300 ng/mLAmphetamine/ 1000 ng/mL Methamphetamine This assay provides an unconfirmed qualitative test result for the clinical management of patients in emergency situations. Chain of custody not maintained. Some bxtb-mrr-xbxlgeo medications, as well as adulterants, may cause inaccurate results. Clinical correlation should be applied. A more comprehensive drug screen or confirmation of a detected drug may be performed upon request.Technician Automatic ID - FSE Lab Interpretation Normal (test code = 60972-1) [facility], [id number] 19:45:43 Test Item Value Reference Range Interpretation Comments Barbiturate Screen Negative Negative (test code = 96636-8) Benzodiazepine Screen Negative Negative (test code = 72114-7) Cocaine (Metab.) Negative Negative Screen (test code = 3397-7) Methadone Screen (test Negative Negative code = 62870-2) Opiate Screen (test Negative Negative code = 73406-4) Cannabinoid Screen Negative Negative (test code = 35681-1) Amph/Methamph Screen Negative Negative (test code = 77759-6) Phencyclidine Screen Negative Negative (test code = 91680-0) pH, UA (test code = 6.5 5.0-8.0 5803-2) JAMESON (test code = JAMESON) DRUG CUTOFF CONC.Cocaine 300 ng/mL Cannabinoid 50 ng/mLBenzodiazepine 200 ng/mLBarbiturate 200 ng/mLPhencyclidine 25 ng/mLOpiate 300 ng/mLMethadone 300 ng/mLAmphetamine/ 1000 ng/mL Methamphetamine This assay provides an unconfirmed qualitative test result for the clinical management of patients in emergency situations. Chain of custody not maintained. Some jvfw-slf-yqnwlko medications, as well as adulterants, may cause inaccurate results. Clinical correlation should be applied. A more comprehensive drug screen or confirmation of a detected drug may be performed upon request.Technician Automatic ID - FSE Lab Interpretation Normal (test code = 40528-0) [facility], [id number] 19:45:43 Test Item Value Reference Range Interpretation Comments Barbiturate Screen Negative Negative (test code = 72124-3) Benzodiazepine Screen Negative Negative (test code = 47265-2) Cocaine (Metab.) Negative Negative Screen (test code = 3397-7) Methadone Screen (test Negative Negative code = 85889-6) Opiate Screen (test Negative Negative code = 39038-5) Cannabinoid Screen Negative Negative (test code = 06422-0) Amph/Methamph Screen Negative Negative (test code = 49462-9) Phencyclidine Screen Negative Negative (test code = 49850-3) pH, UA (test code = 6.5 5.0-8.0 5803-2) JAMESON (test code = JAMESON) DRUG CUTOFF CONC.Cocaine 300 ng/mL Cannabinoid 50 ng/mLBenzodiazepine 200 ng/mLBarbiturate 200 ng/mLPhencyclidine 25 ng/mLOpiate 300 ng/mLMethadone 300 ng/mLAmphetamine/ 1000 ng/mL Methamphetamine This assay provides an unconfirmed qualitative test result for the clinical management of patients in emergency situations. Chain of custody not maintained. Some umsv-vcj-qwymrua medications, as well as adulterants, may cause inaccurate results. Clinical correlation should be applied. A more comprehensive drug screen or confirmation of a detected drug may be performed upon request.Technician Automatic ID - FSE Lab Interpretation Normal (test code = 47541-1) [facility], [id number] 19:45:43 Test Item Value Reference Range Interpretation Comments Barbiturate Screen Negative Negative (test code = 75539-2) Benzodiazepine Screen Negative Negative (test code = 19066-1) Cocaine (Metab.) Negative Negative Screen (test code = 3397-7) Methadone Screen (test Negative Negative code = 82036-0) Opiate Screen (test Negative Negative code = 06767-1) Cannabinoid Screen Negative Negative (test code = 27947-7) Amph/Methamph Screen Negative Negative (test code = 52246-6) Phencyclidine Screen Negative Negative (test code = 44878-8) pH, UA (test code = 6.5 5.0-8.0 5803-2) JAMESON (test code = JAMESON) DRUG CUTOFF CONC.Cocaine 300 ng/mL Cannabinoid 50 ng/mLBenzodiazepine 200 ng/mLBarbiturate 200 ng/mLPhencyclidine 25 ng/mLOpiate 300 ng/mLMethadone 300 ng/mLAmphetamine/ 1000 ng/mL Methamphetamine This assay provides an unconfirmed qualitative test result for the clinical management of patients in emergency situations. Chain of custody not maintained. Some rhht-mtm-erlgsiw medications, as well as adulterants, may cause inaccurate results. Clinical correlation should be applied. A more comprehensive drug screen or confirmation of a detected drug may be performed upon request.Technician Automatic ID - FSE Lab Interpretation Normal (test code = 36251-1) [facility], [id number] 19:45:43 Test Item Value Reference Range Interpretation Comments Barbiturate Screen Negative Negative (test code = 45504-2) Benzodiazepine Screen Negative Negative (test code = 17691-9) Cocaine (Metab.) Negative Negative Screen (test code = 3397-7) Methadone Screen (test Negative Negative code = 93122-1) Opiate Screen (test Negative Negative code = 15447-9) Cannabinoid Screen Negative Negative (test code = 06447-8) Amph/Methamph Screen Negative Negative (test code = 07151-3) Phencyclidine Screen Negative Negative (test code = 44035-2) pH, UA (test code = 6.5 5.0-8.0 5803-2) JAMESON (test code = JAMESON) DRUG CUTOFF CONC.Cocaine 300 ng/mL Cannabinoid 50 ng/mLBenzodiazepine 200 ng/mLBarbiturate 200 ng/mLPhencyclidine 25 ng/mLOpiate 300 ng/mLMethadone 300 ng/mLAmphetamine/ 1000 ng/mL Methamphetamine This assay provides an unconfirmed qualitative test result for the clinical management of patients in emergency situations. Chain of custody not maintained. Some jcmp-nfl-hwpeing medications, as well as adulterants, may cause inaccurate results. Clinical correlation should be applied. A more comprehensive drug screen or confirmation of a detected drug may be performed upon request.Technician Automatic ID - FSE Lab Interpretation Normal (test code = 40112-2) [facility], [id number] 19:45:43 Test Item Value Reference Range Interpretation Comments BARBITURATE URINE (BEAKER) (test Negative Negative code = 725) BENZODIAZEPINE SCREEN URINE (BEAKER) Negative Negative (test code = 726) COCAINE (METAB.) SCREEN (BEAKER) Negative Negative (test code = 1164) METHADONE SCREEN (BEAKER) (test code Negative Negative = 1436) OPIATE SCREEN URINE (BEAKER) (test Negative Negative code = 734) CANNABINOID SCREEN URINE (BEAKER) Negative Negative (test code = 727) AMPH/METHAMPH SCREEN (BEAKER) (test Negative Negative code = 1438) PHENCYCLIDINE SCREEN URINE (BEAKER) Negative Negative (test code = 608) PH UA (BEAKER) (test code = 467) 6.5 5.0-8.0 DRUG CUTOFF CONC.Cocaine 300 ng/mL Cannabinoid 50 ng/mLBenzodiazepine 200 ng/mLBarbiturate 200 ng/mLPhencyclidine 25 ng/mLOpiate 300 ng/mLMethadone 300 ng/mLAmphetamine/ 1000 ng/mL MethamphetamineThis assay provides an unconfirmed qualitative test result for the clinical management of patients in emergency situations. Chain of custody not maintained. Some zcwt-xju-aqvdyse medications, as well as adulterants, may cause inaccurate results. Clinical correlation should be applied. A more comprehensive drug screen or confirmation of a detected drug may be performed upon request.Technician Automatic ID - FSEUrinalysis Microscopic [id number] 19:34:17 Test Item Value Reference Range Interpretation Comments RBC, UA (test 2 See_Comment [Automated me ssage] code = 65580-0) The system [employer] generated this result transmitted ref erence range: /HPF. Th e reference range was not used to int erpret this result as normal/abnormal . WBC, UA (test 1 See_Comment [Automated me ssage] code = 5821-4) The system [employer] generated this result transmitted ref erence range: /HPF. Th e reference range was not used to int erpret this result as normal/abnormal . Terri Woodall, 1 See_Comment [Automated m essage] UA (test code = The system [employer] 29177-1) generated this result transmitted ref erence range: /HPF. Th e reference range was not used to int erpret this result as normal/abnormal . JAMESON (test code Technician Automatic ID - tech = JAMESON) [facility] HospitalUrinalysis Microscopic [id number] 19:34:17 Test Item Value Reference Range Interpretation Comments RBC, UA (test 2 See_Comment [Automated me ssage] code = 06914-8) The system [employer] generated this result transmitted ref erence range: /HPF. Th e reference range was not used to int erpret this result as normal/abnormal . WBC, UA (test 1 See_Comment [Automated me ssage] code = 5821-4) The system [employer] generated this result transmitted ref erence range: /HPF. Th e reference range was not used to int erpret this result as normal/abnormal . Squam Epithel, 1 See_Comment [Automated m essage] UA (test code = The system [employer] 34298-1) generated this result transmitted ref erence range: /HPF. Th e reference range was not used to int erpret this result as normal/abnormal . JAMESON (test code Technician Automatic ID - tech = JAMESON) [facility] HospitalUrinalysis Microscopic [id number] 19:34:17 Test Item Value Reference Range Interpretation Comments RBC, UA (test 2 See_Comment [Automated me ssage] code = 47324-6) The system [employer] generated this result transmitted ref erence range: /HPF. Th e reference range was not used to int erpret this result as normal/abnormal . WBC, UA (test 1 See_Comment [Automated me ssage] code = 5821-4) The system [employer] generated this result transmitted ref erence range: /HPF. Th e reference range was not used to int erpret this result as normal/abnormal . Squam Epithel, 1 See_Comment [Automated m essage] UA (test code = The system [employer] 61887-3) generated this result transmitted ref erence range: /HPF. Th e reference range was not used to int erpret this result as normal/abnormal . JAMESON (test code Technician Automatic ID - tech = JAMESON) [facility] HospitalUrinalysis Microscopic [id number] 19:34:17 Test Item Value Reference Range Interpretation Comments RBC, UA (test 2 See_Comment [Automated me ssage] code = 55796-7) The system [employer] generated this result transmitted ref erence range: /HPF. Th e reference range was not used to int erpret this result as normal/abnormal . WBC, UA (test 1 See_Comment [Automated me ssage] code = 5821-4) The system [employer] generated this result transmitted ref erence range: /HPF. Th e reference range was not used to int erpret this result as normal/abnormal . Squam Epithel, 1 See_Comment [Automated m essage] UA (test code = The system [employer] 96797-3) generated this result transmitted ref erence range: /HPF. Th e reference range was not used to int erpret this result as normal/abnormal . JAMESON (test code Technician Automatic ID - tech = JAMESON) [facility] HospitalUrinalysis Microscopic [id number] 19:34:17 Test Item Value Reference Range Interpretation Comments RBC, UA (test 2 See_Comment [Automated me ssage] code = 60478-4) The system [employer] generated this result transmitted ref erence range: /HPF. Th e reference range was not used to int erpret this result as normal/abnormal . WBC, UA (test 1 See_Comment [Automated me ssage] code = 5821-4) The system [facility] generated this result transmitted ref erence range: /HPF. Th e reference range was not used to int erpret this result as normal/abnormal . Squam Epithel, 1 See_Comment [Automated m essage] UA (test code = The system [employer] 45843-3) generated this result transmitted ref erence range: /HPF. Th e reference range was not used to int erpret this result as normal/abnormal . JAMESON (test code Technician Automatic ID - tech = JAMESON) [facility] HospitalURINALYSIS [id number] 19:34:17 Test Item Value Reference Range Interpretation Comments RBC UA (BEAKER) (test code = 519) 2 /HPF WBC UA (BEAKER) (test code = 520) 1 /HPF SQUAMOUS EPITHELIAL (BEAKER) (test 1 /HPF code = 516) Technician Automatic ID - techUrinalysis with Microscopic If [id number] 19:32:18 Test Item Value Reference Range Interpretation Comments Color, UA (test code = Yellow 5778-6) Clarity, UA (test code = Clear 5767-9) Specific Tina, UA (test 1.025 1.001-1.035 code = 5811-5) pH, UA (test code = 6.5 5.0-8.0 5803-2) Protein, UA (test code = 20 mg/dL Negative A 94786-3) Glucose, UA (test code = Negative Negative 365) Ketones, UA (test code = Negative Negative 2514-8) Bilirubin, UA (test code = Negative Negative 81186-3) Blood, UA (test code = Negative Negative 06147-0) Nitrite, UA (test code = Negative Negative 5802-4) Leukocytes, UA (test code Large Negative A = 5799-2) Urobilinogen, UA (test 2 0.2-1.0 H code = 93877-1) Specimen Source (test code = 2795) JAMESON (test code = JAMESON) Technician Automatic ID - [auto] Lab Interpretation (test Abnormal code = 94718-9) [facility] HospitalUrinalysis with Microscopic If [id number] 19:32:18 Test Item Value Reference Range Interpretation Comments Color, UA (test code = Yellow 5778-6) Clarity, UA (test code = Clear 5767-9) Specific Tina, UA (test 1.025 1.001-1.035 code = 5811-5) pH, UA (test code = 6.5 5.0-8.0 5803-2) Protein, UA (test code = 20 mg/dL Negative A 64566-0) Glucose, UA (test code = Negative Negative 365) Ketones, UA (test code = Negative Negative 2514-8) Bilirubin, UA (test code = Negative Negative 03889-8) Blood, UA (test code = Negative Negative 65379-1) Nitrite, UA (test code = Negative Negative 5802-4) Leukocytes, UA (test code Large Negative A = 5799-2) Urobilinogen, UA (test 2 0.2-1.0 H code = 73427-8) Specimen Source (test code = 2795) JAMESON (test code = JAMESON) Technician Automatic ID - [auto] Lab Interpretation (test Abnormal code = 98890-8) [facility] [id number] 19:32:18 Test Item Value Reference Range Interpretation Comments Color, UA (test code = Yellow 5778-6) Clarity, UA (test code = Clear 5767-9) Specific Tina, UA (test 1.025 1.001-1.035 code = 5811-5) pH, UA (test code = 6.5 5.0-8.0 5803-2) Protein, UA (test code = 20 mg/dL Negative A 48173-2) Glucose, UA (test code = Negative Negative 365) Ketones, UA (test code = Negative Negative 2514-8) Bilirubin, UA (test code = Negative Negative 95302-1) Blood, UA (test code = Negative Negative 02509-1) Nitrite, UA (test code = Negative Negative 5802-4) Leukocytes, UA (test code Large Negative A = 5799-2) Urobilinogen, UA (test 2 0.2-1.0 H code = 36315-1) Specimen Source (test code = 2795) JAMESON (test code = JAMESON) Technician Automatic ID - [auto] Lab Interpretation (test Abnormal code = 20049-1) [facility] [id number] 19:32:18 Test Item Value Reference Range Interpretation Comments Color, UA (test code = Yellow 5778-6) Clarity, UA (test code = Clear 5767-9) Specific Tina, UA (test 1.025 1.001-1.035 code = 5811-5) pH, UA (test code = 6.5 5.0-8.0 5803-2) Protein, UA (test code = 20 mg/dL Negative A 88806-7) Glucose, UA (test code = Negative Negative 365) Ketones, UA (test code = Negative Negative 2514-8) Bilirubin, UA (test code = Negative Negative 88196-2) Blood, UA (test code = Negative Negative 67177-0) Nitrite, UA (test code = Negative Negative 5802-4) Leukocytes, UA (test code Large Negative A = 5799-2) Urobilinogen, UA (test 2 0.2-1.0 H code = 41592-5) Specimen Source (test code = 279) JAMESON (test code = JAMESON) Technician Automatic ID - [auto] Lab Interpretation (test Abnormal code = 94121-1) [facility] [id number] 19:32:18 Test Item Value Reference Range Interpretation Comments Color, UA (test code = Yellow 5778-6) Clarity, UA (test code = Clear 5767-9) Specific Tina, UA (test 1.025 1.001-1.035 code = 5811-5) pH, UA (test code = 6.5 5.0-8.0 5803-2) Protein, UA (test code = 20 mg/dL Negative A 89974-3) Glucose, UA (test code = Negative Negative 365) Ketones, UA (test code = Negative Negative 2514-8) Bilirubin, UA (test code = Negative Negative 77757-7) Blood, UA (test code = Negative Negative 40591-3) Nitrite, UA (test code = Negative Negative 5802-4) Leukocytes, UA (test code Large Negative A = 5799-2) Urobilinogen, UA (test 2 0.2-1.0 H code = 94895-0) Specimen Source (test code = 2795) JAMESON (test code = JAMESON) Technician Automatic ID - [auto] Lab Interpretation (test Abnormal code = 43497-4) [facility]IC IF [id number] 19:32:18 Test Item Value Reference Range Interpretation Comments COLOR (BEAKER) (test code = 470) Yellow CLARITY (BEAKER) (test code = 469) Clear SPECIFIC GRAVITY UA (BEAKER) (test 1.025 1.001-1.035 code = 468) PH UA (BEAKER) (test code = 467) 6.5 5.0-8.0 PROTEIN UA (BEAKER) (test code = 20 mg/dL Negative A 464) GLUCOSE UA (BEAKER) (test code = Negative Negative 365) KETONES UA (BEAKER) (test code = Negative Negative 371) BILIRUBIN UA (BEAKER) (test code = Negative Negative 462) BLOOD UA (BEAKER) (test code = 461) Negative Negative NITRITE UA (BEAKER) (test code = Negative Negative 465) LEUKOCYTE ESTERASE UA (BEAKER) (test Large Negative A code = 466) UROBILINOGEN UA (BEAKER) (test code 2 0.2-1.0 H = 463) SOURCE(BEAKER) (test code = 2795) Technician Automatic ID - [auto][id number] 13:30:36 Test Item Value Reference Range Interpretation Comments RPR SCREEN (BEAKER) (test code = Nonreactive Nonreactive 420) HEMOGLOBIN [id number] 13:05:06 Test Item Value Reference Range Interpretation Comments HEMOGLOBIN A1C 6.2 % See_Comment H [Automated m essage] ELECTROPHORESIS (BEAKER) The system which (test code = 3811) generated this result transmitted ref erence range: <=5.6%. The reference range was not used to int erpret this result as normal/abnormal . "The A1c is measured using a NGSP-certified method. HbA1c value equal to or greater than 6.5% as thediagnosis cutoff for diabetes. An HbA1c value of 5.7- 6.4% indicates increased risk for diabetes (prediabetes)."Technician Automatic ID - ADMOperator ID - ADMPOCT-GLUCOSE [id number] 12:11:51 Test Item Value Reference Range Interpretation Comments POC-GLUCOSE METER 208 mg/dL 70-110 H : TESTED A T [facility] 6720 (BEAKER) (test code = [facility], 1538) 86696: Technician Automatic/Techni renetta ID = [id number] for HENOK CAMPOVERDE POCT-GLUCOSE [id number] 08:12:28 Test Item Value Reference Range Interpretation Comments POC-GLUCOSE METER 168 mg/dL 70-110 H : TESTED A T [facility] 6720 (BEAKER) (test code = [facility], 1538) 49348: Technician Automatic/Techni renetta ID = [id number] for HENOK CAMPOVERDE LIPID [id number] 03:47:05 Test Item Value Reference Range Interpretation Comments TRIGLYCERIDES (BEAKER) (test code = 81 mg/dL 540) CHOLESTEROL (BEAKER) (test code = 168 mg/dL 631) HDL CHOLESTEROL (BEAKER) (test code 48 mg/dL = 976) LDL CHOLESTEROL CALCULATED (BEAKER) 104 mg/dL (test code = 633) Triglyceride Reference Range: Low Risk <150 Borderline 150-199 High Risk 200- 499 Very High Risk >=500Cholesterol Reference Range: Low Risk <200 Borderline 200-239 High Risk >240HDL Cholesterol Reference Range: Low Risk >=60 High Risk <40LDL Cholesterol Reference Range: Optimal <100 Near Optimal 100-129 Borderline 130-159 High 160-189 Very High >=190 Technician Automatic ID - BSBASIC METABOLIC [id number] 03:47:04 Test Item Value Reference Range Interpretation Comments SODIUM (BEAKER) 138 meq/L 136-145 (test code = 381) POTASSIUM 4.8 meq/L 3.5-5.1 (BEAKER) (test code = 379) CHLORIDE (BEAKER) 110 meq/L 98-107 H (test code = 382) CO2 (BEAKER) 18 meq/L 22-29 L (test code = 355) BLOOD UREA 17 mg/dL 7-21 NITROGEN (BEAKER) (test code = 354) CREATININE 1.14 mg/dL 0.57-1.25 (BEAKER) (test code = 358) GLUCOSE RANDOM 218 mg/dL 70-105 H (BEAKER) (test code = 652) CALCIUM (BEAKER) 9.3 mg/dL 8.4-10.2 (test code = 697) EGFR (BEAKER) 56 Interpretatio n of eGFR (test code = mL/min/1.73 values Stage De scription 1092) sq m Result G1 Dequan l or high >=90 G2 Mildly decreased 60-89 G3a Mildl y to moderately 45-5 9 G3b Moderately to s everely 30-44 G4 Severl y decreased 15-29 G5 Kidney failure <15Reported eGF R is based on the CKD-EPI 2020 equation that d oes not use a race coefficientEsti mated GFR is not as accur ate as Creatinine Glo teresita in predicting glom erular filtration rate . Estimated GFR is not appl icable for dialysis patien ts Technician Automatic ID - [id number] 03:47:04 Test Item Value Reference Range Interpretation Comments MAGNESIUM (BEAKER) (test code = 2.4 mg/dL 1.6-2.6 627) Technician Automatic ID - [id number] 03:47:04 Test Item Value Reference Range Interpretation Comments PHOSPHORUS (BEAKER) (test code = 2.7 mg/dL 2.3-4.7 604) Technician Automatic ID - BSCBC W/PLT COUNT & AUTO [id number] 03:29:06 Test Item Value Reference Range Interpretation Comments WHITE BLOOD CELL COUNT (BEAKER) 6.6 K/ L 3.5-10.5 (test code = 775) RED BLOOD CELL COUNT (BEAKER) 4.00 M/ L 3.93-5.22 (test code = 761) HEMOGLOBIN (BEAKER) (test code = 12.5 GM/DL 11.2-15.7 410) HEMATOCRIT (BEAKER) (test code = 37.4 % 34.1-44.9 411) MEAN CORPUSCULAR VOLUME (BEAKER) 94 fL 79-95 (test code = 753) MEAN CORPUSCULAR HEMOGLOBIN 31.3 pg 25.6-32.2 (BEAKER) (test code = 751) MEAN CORPUSCULAR HEMOGLOBIN CONC 33.4 GM/DL 32.2-35.5 (BEAKER) (test code = 752) RED CELL DISTRIBUTION WIDTH 13.2 % 11.7-14.4 (BEAKER) (test code = 412) PLATELET COUNT (BEAKER) (test 248 K/CU MM 150-450 code = 756) MEAN PLATELET VOLUME (BEAKER) 9.4 fL 9.4-12.3 (test code = 754) NUCLEATED RED BLOOD CELLS 0 /100 WBC 0-0 (BEAKER) (test code = 413) NEUTROPHILS RELATIVE PERCENT 83 % (BEAKER) (test code = 429) LYMPHOCYTES RELATIVE PERCENT 12 % (BEAKER) (test code = 430) MONOCYTES RELATIVE PERCENT 2 % (BEAKER) (test code = 431) EOSINOPHILS RELATIVE PERCENT 2 % (BEAKER) (test code = 432) BASOPHILS RELATIVE PERCENT 0 % (BEAKER) (test code = 437) NEUTROPHILS ABSOLUTE COUNT 5.43 K/ L 1.56-6.13 (BEAKER) (test code = 670) LYMPHOCYTES ABSOLUTE COUNT 0.78 K/ L 1.18-3.74 L (BEAKER) (test code = 414) MONOCYTES ABSOLUTE COUNT (BEAKER) 0.16 K/ L 0.24-0.36 L (test code = 415) EOSINOPHILS ABSOLUTE COUNT 0.15 K/ L 0.04-0.36 (BEAKER) (test code = 416) BASOPHILS ABSOLUTE COUNT (BEAKER) 0.01 K/ L 0.01-0.08 (test code = 417) IMMATURE GRANULOCYTES-RELATIVE 0.60 % 0.00-1.00 PERCENT (BEAKER) (test code = 2801) VITAMIN [id number] 02:12:17 Test Item Value Reference Range Interpretation Comments VITAMIN B12 (BEAKER) (test code = 675 pg/mL 213-816 774) Technician Automatic ID - IWONA WB-TYPE NATRIURETIC FACTOR (BNP)2023-02-05 01:22:00 Test Item Value Reference Range Interpretation Comments B-TYPE NATRIURETIC PEPTIDE (BEAKER) < pg/mL 0-100 (test code = 700) Technician Automatic ID - DORIEOCT-GLUCOSE [id number] 00:39:48 Test Item Value Reference Range Interpretation Comments POC-GLUCOSE METER 239 mg/dL 70-110 H : TESTED A T [facility] 6720 (BEAKER) (test code = [place], 1538) [address]: Technician Automatic/Techni renetta ID = [id number] for Lillie aHre TSH/FREE T4 IF [id number] 00:14:33 Test Item Value Reference Range Interpretation Comments THYROID STIMULATING HORMONE 0.857 uIU/mL 0.350-4.940 (BEAKER) (test code = 772) Technician Automatic ID - BSHIGH SENSITIVITY TROPONIN [id number] 23:59:36 Test Item Value Reference Range Interpretation Comments HIGH SENSITIVITY TROPONIN I (test 8 pg/ml <=17 code = 6365335) Technician Automatic ID - BSThe PI[employer]O [employer]ER STAT High Sensitivity Troponin-I results should be used in conjunctionwith other diagnostic information such as ECG, clinical observations and information, and patient symptoms to aid in the diagnosis of DC.[id number] 23:55:35 Test Item Value Reference Range Interpretation Comments MAGNESIUM (BEAKER) 2.4 mg/dL 1.6-2.6 Specimen slightly (test code = 627) hemolyzed Technician Automatic ID - [id number] 23:55:35 Test Item Value Reference Range Interpretation Comments PHOSPHORUS (BEAKER) 2.4 mg/dL 2.3-4.7 Specimen slightly (test code = 604) hemolyzed Technician Automatic ID - BSCOMPREHENSIVE METABOLIC [id number] 23:55:35 Test Item Value Reference Range Interpretation Comments TOTAL PROTEIN 7.4 gm/dL 6.0-8.3 Specimen sligh tly (BEAKER) (test hemolyzed code = 770) ALBUMIN (BEAKER) 4.1 g/dL 3.5-5.0 Specimen sl ightly (test code = 1145) hemolyzed ALKALINE 59 U/L 40-150 PHOSPHATASE (BEAKER) (test code = 346) BILIRUBIN TOTAL 0.2 mg/dL 0.2-1.2 Specimen sli ghtly (BEAKER) (test hemolyzed code = 377) SODIUM (BEAKER) 139 meq/L 136-145 (test code = 381) POTASSIUM (BEAKER) 4.5 meq/L 3.5-5.1 Specimen slightly (test code = 379) hemolyzed CHLORIDE (BEAKER) 111 meq/L 98-107 H (test code = 382) CO2 (BEAKER) (test 18 meq/L 22-29 L code = 355) BLOOD UREA 14 mg/dL 7-21 NITROGEN (BEAKER) (test code = 354) CREATININE 1.15 mg/dL 0.57-1.25 Specimen slight ly (BEAKER) (test hemolyzed code = 358) GLUCOSE RANDOM 216 mg/dL 70-105 H (BEAKER) (test code = 652) CALCIUM (BEAKER) 9.1 mg/dL 8.4-10.2 (test code = 697) AST (SGOT) 16 U/L 5-34 Specimen slight ly (BEAKER) (test hemolyzed code = 353) ALT (SGPT) 16 U/L 6-55 Specimen slight ly (BEAKER) (test hemolyzed code = 347) EGFR (BEAKER) 56 Interpretatio n of eGFR (test code = 1092) mL/min/1.[address] age Description sq m Result G1 Dequan l or high >=90 G2 Mildly decreased 60-89 G3a Mildl y to moderately 45-5 9 G3b Moderately to s everely 30-44 G4 Severl y decreased 15-29 G5 Kidney failure <15Reported eGF R is based on the CKD-EPI 202 equation that d oes not use a race coefficientEsti mated GFR is not as accur ate as Creatinine Glo lo in predicting glom erular filtration rate . Estimated GFR is not appl icable for dialysis patien ts Technician Automatic ID - BSLACTIC ACID, [id number] 23:49:45 Test Item Value Reference Range Interpretation Comments LACTATE BLOOD VENOUS (2) (BEAKER) 0.92 mmol/L 0.50-2.00 (test code = 2872) Technician Automatic ID - BSCBC W/PLT COUNT & AUTO [id number] 23:40:53 Test Item Value Reference Range Interpretation Comments WHITE BLOOD CELL COUNT (BEAKER) 7.5 K/ L 3.5-10.5 (test code = 775) RED BLOOD CELL COUNT (BEAKER) 4.22 M/ L 3.93-5.22 (test code = 761) HEMOGLOBIN (BEAKER) (test code = 12.7 GM/DL 11.2-15.7 410) HEMATOCRIT (BEAKER) (test code = 38.3 % 34.1-44.9 411) MEAN CORPUSCULAR VOLUME (BEAKER) 91 fL 79-95 (test code = 753) MEAN CORPUSCULAR HEMOGLOBIN 30.1 pg 25.6-32.2 (BEAKER) (test code = 751) MEAN CORPUSCULAR HEMOGLOBIN CONC 33.2 GM/DL 32.2-35.5 (BEAKER) (test code = 752) RED CELL DISTRIBUTION WIDTH 13.2 % 11.7-14.4 (BEAKER) (test code = 412) PLATELET COUNT (BEAKER) (test 247 K/CU MM 150-450 code = 756) MEAN PLATELET VOLUME (BEAKER) 8.9 fL 9.4-12.3 L (test code = 754) NUCLEATED RED BLOOD CELLS 0 /100 WBC 0-0 (BEAKER) (test code = 413) NEUTROPHILS RELATIVE PERCENT 82 % (BEAKER) (test code = 429) LYMPHOCYTES RELATIVE PERCENT 10 % (BEAKER) (test code = 430) MONOCYTES RELATIVE PERCENT 3 % (BEAKER) (test code = 431) EOSINOPHILS RELATIVE PERCENT 5 % (BEAKER) (test code = 432) BASOPHILS RELATIVE PERCENT 0 % (BEAKER) (test code = 437) NEUTROPHILS ABSOLUTE COUNT 6.15 K/ L 1.56-6.13 H (BEAKER) (test code = 670) LYMPHOCYTES ABSOLUTE COUNT 0.73 K/ L 1.18-3.74 L (BEAKER) (test code = 414) MONOCYTES ABSOLUTE COUNT (BEAKER) 0.24 K/ L 0.24-0.36 (test code = 415) EOSINOPHILS ABSOLUTE COUNT 0.34 K/ L 0.04-0.36 (BEAKER) (test code = 416) BASOPHILS ABSOLUTE COUNT (BEAKER) 0.01 K/ L 0.01-0.08 (test code = 417) IMMATURE GRANULOCYTES-RELATIVE 0.40 % 0.00-1.00 PERCENT (BEAKER) (test code = 2801) [id number] 09:54:30 Test Item Value Reference Range Interpretation Comments Sed Rate (test code = 28 See_Comment [Auto mated message] The Sed Rate) system which ge nerated this result transmit blayne reference range : <=20. The reference range was not used to interpr et this result as dequan l/abnormal. [facility] 09:54:30 Test Item Value Reference Range Interpretation Comments C-REACTIVE PROTEIN (test code = 6.7 C-REACTIVE PROTEIN) [facility] AND [id number] 09:19:56 Test Item Value Reference Range Interpretation Comments UA Spec Grav (test code = UA Spec 1.010 1 Grav) [facility] AND [id number] 09:19:56 Test Item Value Reference Range Interpretation Comments UA Protein (test code = UA Negative mg/dL Protein) [facility] AND [id number] 09:19:56 Test Item Value Reference Range Interpretation Comments UA pH (test code = UA pH) 6.0 1 5.0-8.0 [facility] AND [id number] 09:19:56 Test Item Value Reference Range Interpretation Comments UA Ketones (test code = UA Negative mg/dL Ketones) [facility] AND [id number] 09:19:56 Test Item Value Reference Range Interpretation Comments UA Glucose (test code = UA Negative mg/dL Glucose) [facility] AND [id number] 09:19:56 Test Item Value Reference Range Interpretation Comments UA Bili (test code = Negative *NA*(01/05/17 UA Bili) 4:19 AM) [facility] AND [id number] 09:19:56 Test Item Value Reference Range Interpretation Comments UA Color (test code = Yellow *NA*(01/05/17 UA Color) 4:19 AM) [facility] AND [id number] 09:19:56 Test Item Value Reference Range Interpretation Comments UA Turbidity (test code = Clear (01/05/17 4:19 UA Turbidity) AM) [facility] AND [id number] 09:19:56 Test Item Value Reference Range Interpretation Comments UA Urobilinogen (test code = UA 0.2 0.1-1.0 Urobilinogen) [facility] AND [id number] 09:19:56 Test Item Value Reference Range Interpretation Comments UA Blood (test code = Negative (01/05/17 4:19 UA Blood) AM) [facility] AND [id number] 09:19:56 Test Item Value Reference Range Interpretation Comments UA Leuk Est (test Negative (01/05/17 4:19 code = UA Leuk Est) AM) [facility] AND [id number] 09:19:56 Test Item Value Reference Range Interpretation Comments UA Nitrite (test code Negative (01/05/17 4:19 = UA Nitrite) AM) [facility] AND [id number] 09:19:56 Test Item Value Reference Range Interpretation Comments UA WBC (test code = UA WBC) 0-2 /HPF [facility] AND [id number] 09:19:56 Test Item Value Reference Range Interpretation Comments UA Sq Epi (test code = UA Sq Epi) Few /LPF [facility] AND [id number] 09:19:56 Test Item Value Reference Range Interpretation Comments UA Bacteria (test code = UA Occasional /HPF Bacteria) [facility] AND [id number] 09:19:56 Test Item Value Reference Range Interpretation Comments UA RBC (test code = 0-2 /HPF See_Comment [Automa blayne message] The UA RBC) system which ge nerated this result tra nsmitted reference range : <=2. The reference range was not used to interpr et this result as dequan l/abnormal. [facility] AND [id number] 09:19:56 Test Item Value Reference Range Interpretation Comments UA Mucus (test code = UA Mucus) Few /LPF [facility]2017-04-15 06:57:00 Test Item Value Reference Range Interpretation Comments eGFR (test code = eGFR) 78 [facility]2017-04-15 06:57:00 Test Item Value Reference Range Interpretation Comments Calcium Lvl (test code = Calcium Lvl) 9.1 8.5-10.5 [facility]2017-04-15 06:57:00 Test Item Value Reference Range Interpretation Comments AGAP (test code = AGAP) 11.2 10.0-20.0 [facility]2017-04-15 06:57:00 Test Item Value Reference Range Interpretation Comments CO2 (test code = CO2) 30 24-32 [facility]2017-04-15 06:57:00 Test Item Value Reference Range Interpretation Comments Chloride Lvl (test code = Chloride Lvl) 103 95-109 [facility]2017-04-15 06:57:00 Test Item Value Reference Range Interpretation Comments Potassium Lvl (test code = Potassium 4.2 3.5-5.1 Lvl) [facility]2017-04-15 06:57:00 Test Item Value Reference Range Interpretation Comments Sodium Lvl (test code = Sodium Lvl) 140 135-145 [facility]2017-04-15 06:57:00 Test Item Value Reference Range Interpretation Comments Creatinine Lvl (test code = Creatinine 0.87 0.50-1.40 Lvl) [facility]2017-04-15 06:57:00 Test Item Value Reference Range Interpretation Comments BUN (test code = BUN) 18 7-22 [facility]2017-04-15 06:57:00 Test Item Value Reference Range Interpretation Comments Glucose Lvl (test code = Glucose Lvl) 128 70-99 [facility]ErzmkrbCNXNQQGFOA8714-69-68 06:57:00 Test Item Value Reference Range Interpretation Comments Monocytes # (test code 0.6 See_Comment [Aut omated message] The = Monocytes #) system which generated this result tra nsmitted reference range : <=0.8. The reference r celio was not used to int erpret this result as normal/abnormal . [facility]villeSpraggnRRJKCVWLVG8172-78-12 06:57:00 Test Item Value Reference Range Interpretation Comments Eosinophils # (test code 0.2 See_Comment [A utomated message] The = Eosinophils #) system whic h generated this result tra nsmitted reference range : <=0.5. The reference r celio was not used to int erpret this result as normal/abnormal . [facility] StephenvilleSniiuyqLGLNIEUNOQ7655-25-95 06:57:00 Test Item Value Reference Range Interpretation Comments Basophils # (test code 0.1 See_Comment [Aut omated message] The = Basophils #) system which generated this result tra nsmitted reference range : <=0.2. The reference r celio was not used to int erpret this result as normal/abnormal . [facility] StephenvilleHxosiknCOVDCTCSGR2803-68-02 06:57:00 Test Item Value Reference Range Interpretation Comments Eosinophils (test code = 2.4 See_Comment [A utomated message] The Eosinophils) system which ge nerated this result tra nsmitted reference range : <=4.0. The reference r celio was not used to int erpret this result as normal/abnormal . [facility] StephenvilleSvzsxtbWBUCUXHQJF5460-75-20 06:57:00 Test Item Value Reference Range Interpretation Comments Basophils (test code = 0.6 See_Comment [Aut omated message] The Basophils) system which ge nerated this result tra nsmitted reference range : <=1.0. The reference r celio was not used to int erpret this result as normal/abnormal . [facility] StephenvilleWxzjoufKXOAHDHLZT3259-21-79 06:57:00 Test Item Value Reference Range Interpretation Comments Segs-Bands # (test code = Segs-Bands #) 5.3 1.5-8.1 [facility] StephenvilleJzobsrvLAHLOHDVKL6666-61-28 06:57:00 Test Item Value Reference Range Interpretation Comments Segs (test code = Segs) 55.9 45.0-75.0 [facility] StephenvilleSaztzwfXHEJZPKRSO2510-38-03 06:57:00 Test Item Value Reference Range Interpretation Comments Lymphocytes (test code = Lymphocytes) 34.3 20.0-40.0 [facility] StephenvilleWkosukdEUIRKXBXWJ1200-47-92 06:57:00 Test Item Value Reference Range Interpretation Comments Monocytes (test code = Monocytes) 6.8 2.0-12.0 [facility] StephenvilleGztbribHYHUEVLAMF7881-49-10 06:57:00 Test Item Value Reference Range Interpretation Comments Lymphocytes # (test code = Lymphocytes 3.2 1.0-5.5 #) [facility] StephenvilleGtvxmutHITWCWNGEL7637-12-71 06:57:00 Test Item Value Reference Range Interpretation Comments Hct (test code = Hct) 40.3 36.0-48.0 [facility] StephenvilleXdoelpvURQGOCHVDM7886-54-28 06:57:00 Test Item Value Reference Range Interpretation Comments Hgb (test code = Hgb) 14.2 12.0-16.0 [facility] StephenvilleXlpapuxDXHBDCZFSO9313-05-60 06:57:00 Test Item Value Reference Range Interpretation Comments RBC (test code = RBC) 4.54 4.20-5.40 [facility] StephenvilleTwzluzoXWEQYMMBNF4011-76-59 06:57:00 Test Item Value Reference Range Interpretation Comments WBC (test code = WBC) 9.4 3.7-10.4 [facility] StephenvillePlqaulxEPLTQMKRZL9692-63-46 06:57:00 Test Item Value Reference Range Interpretation Comments MCV (test code = MCV) 88.6 80.0-98.0 [facility] StephenvillePyztpbuBOCXMFLHEU2417-61-19 06:57:00 Test Item Value Reference Range Interpretation Comments MCH (test code = MCH) 31.3 pg 27.0-31.0 [facility] StephenvilleQnjmkvvOYXCMLHNEX2205-81-79 06:57:00 Test Item Value Reference Range Interpretation Comments MPV (test code = MPV) 7.4 7.4-10.4 [facility] StephenvilleOxxmgxrTZPVDWITTQ3837-02-55 06:57:00 Test Item Value Reference Range Interpretation Comments Platelet (test code = Platelet) 295 133-450 [facility] StephenvilleNafeugpVVLYYOQRJV8287-61-85 06:57:00 Test Item Value Reference Range Interpretation Comments RDW (test code = RDW) 13.7 11.5-14.5 [facility] StephenvilleUmdwcuzENPPCLQAGD0547-58-66 06:57:00 Test Item Value Reference Range Interpretation Comments MCHC (test code = MCHC) 35.3 32.0-36.0 [facility] AND [id number] 13:57:55 Test Item Value Reference Range Interpretation Comments UA Spec Grav (test code = UA Spec 1.015 1 Grav) [facility] AND [id number] 13:57:55 Test Item Value Reference Range Interpretation Comments UA pH (test code = UA pH) 6.0 1 5.0-8.0 [facility] AND [id number] 13:57:55 Test Item Value Reference Range Interpretation Comments UA Turbidity (test code = Clear (03/18/14 8:57 UA Turbidity) AM) [facility] AND [id number] 13:57:55 Test Item Value Reference Range Interpretation Comments UA Urobilinogen (test code = UA 0.2 0.1-1.0 Urobilinogen) [facility] AND [id number] 13:57:55 Test Item Value Reference Range Interpretation Comments UA Leuk Est (test Negative (03/18/14 8:57 code = UA Leuk Est) AM) [facility] AND [id number] 13:57:55 Test Item Value Reference Range Interpretation Comments UA Nitrite (test code Negative (03/18/14 8:57 = UA Nitrite) AM) [facility] AND [id number] 13:57:55 Test Item Value Reference Range Interpretation Comments UA Color (test code = Yellow *NA*(03/18/14 UA Color) 8:57 AM) [facility] AND [id number] 13:57:55 Test Item Value Reference Range Interpretation Comments UA Bili (test code = Negative *NA*(03/18/14 UA Bili) 8:57 AM) [facility] AND [id number] 13:57:55 Test Item Value Reference Range Interpretation Comments UA Ketones (test code = Trace *ABN*(03/18/14 UA Ketones) 8:57 AM) [facility] AND [id number] 13:57:55 Test Item Value Reference Range Interpretation Comments UA Blood (test code = Trace *ABN*(03/18/14 UA Blood) 8:57 AM) [facility] AND [id number] 13:57:55 Test Item Value Reference Range Interpretation Comments UA Glucose (test code Negative (03/18/14 8:57 = UA Glucose) AM) [facility] AND [id number] 13:57:55 Test Item Value Reference Range Interpretation Comments UA Protein (test code Negative (03/18/14 8:57 = UA Protein) AM) [facility] AND [id number] 13:57:55 Test Item Value Reference Range Interpretation Comments UA Sq Epi (test code = UA Sq Epi) Few /LPF [facility] AND [id number] 13:57:55 Test Item Value Reference Range Interpretation Comments UA RBC (test code = 0-2 /HPF See_Comment [Automa blayne message] The UA RBC) system which ge nerated this result tra nsmitted reference range : <=2. The reference range was not used to interpr et this result as dequan l/abnormal. [facility] AND [id number] 13:57:55 Test Item Value Reference Range Interpretation Comments UA WBC (test code = UA WBC) 0-2 /HPF [facility] AND [id number] 13:57:55 Test Item Value Reference Range Interpretation Comments UA Mucus (test code = None Seen (03/18/14 UA Mucus) 8:57 AM) [facility] AND [id number] 13:57:55 Test Item Value Reference Range Interpretation Comments UA Bacteria (test code = UA Moderate /HPF Bacteria) [id number] 11:20:00 Test Item Value Reference Range Interpretation Comments CHD Risk (test code = CHD Risk) 4.39 3.90-5.80 [facility] [id number] 11:20:00 Test Item Value Reference Range Interpretation Comments LDL (Calculated) (test code = LDL 120 (Calculated)) [facility] CenterRutvbitHLQSSW1529-42-65 11:20:00 Test Item Value Reference Range Interpretation Comments Trig (test code = Trig) 145 [facility] CenterIlqnqxgYGMYIA6606-06-45 11:20:00 Test Item Value Reference Range Interpretation Comments Chol (test code = Chol) 193 [facility] CenterLmocgeuRCOPOX7328-39-51 11:20:00 Test Item Value Reference Range Interpretation Comments HDL (test code = HDL) 44 [facility] CenterBrqvzauCSMKBF5494-33-07 11:20:00 Test Item Value Reference Range Interpretation Comments VLDL (test code = VLDL) 29 [facility] [id number] 11:20:00 Test Item Value Reference Range Interpretation Comments Hgb A1C (test code = Hgb A1C) 4.9 [facility] [id number] 02:54:00 Test Item Value Reference Range Interpretation Comments eGFR (test code = eGFR) 87 [facility] [id number] 02:54:00 Test Item Value Reference Range Interpretation Comments POC Creatinine (test code = POC 0.8 0.5-1.4 Creatinine) [facility] [id number] 02:35:26 Test Item Value Reference Range Interpretation Comments eGFR (test code = eGFR) 87 [facility] [id number] 02:35:26 Test Item Value Reference Range Interpretation Comments Calcium Lvl (test code = Calcium Lvl) 10.0 8.5-10.5 [facility] [id number] 02:35:26 Test Item Value Reference Range Interpretation Comments Sodium Lvl (test code = Sodium Lvl) 140 135-145 [facility] [id number] 02:35:26 Test Item Value Reference Range Interpretation Comments Creatinine Lvl (test code = Creatinine 0.8 0.5-1.4 Lvl) [facility] [id number] 02:35:26 Test Item Value Reference Range Interpretation Comments Chloride Lvl (test code = Chloride Lvl) 103 95-109 [facility]2014-06-26 02:35:26 Test Item Value Reference Range Interpretation Comments Potassium Lvl (test code = Potassium 4.0 3.5-5.1 Lvl) [facility]2014-06-26 02:35:26 Test Item Value Reference Range Interpretation Comments CO2 (test code = CO2) 30 24-32 [facility]2014-06-26 02:35:26 Test Item Value Reference Range Interpretation Comments BUN (test code = BUN) 13 7-22 [facility]2014-06-26 02:35:26 Test Item Value Reference Range Interpretation Comments Glucose Lvl (test code = Glucose Lvl) 106 70-99 [facility]2014-06-26 02:35:26 Test Item Value Reference Range Interpretation Comments AGAP (test code = AGAP) 11.0 10.0-20.0 [id number] 02:35:26 Test Item Value Reference Range Interpretation Comments Basophils (test code = 1.4 See_Comment [Aut omated message] The Basophils) system which ge nerated this result tra nsmitted reference range : <=1.0. The reference r celio was not used to int erpret this result as normal/abnormal . [facility] StephenvilleXxsrqteZWBGGTNTRV2709-23-96 02:35:26 Test Item Value Reference Range Interpretation Comments Segs-Bands # (test code = Segs-Bands #) 5.3 1.5-8.1 [facility] StephenvilleKolverhGKBEEYKYKP0982-95-57 02:35:26 Test Item Value Reference Range Interpretation Comments Segs (test code = Segs) 54.6 45.0-75.0 [facility] StephenvilleHgswhcjCXFCDAGYZM8949-38-31 02:35:26 Test Item Value Reference Range Interpretation Comments Eosinophils # (test code 0.2 See_Comment [A utomated message] The = Eosinophils #) system whic h generated this result tra nsmitted reference range : <=0.5. The reference r celio was not used to int erpret this result as normal/abnormal . [facility] StephenvilleEstydcuJSQYPTGPXT7578-60-80 02:35:26 Test Item Value Reference Range Interpretation Comments Basophils # (test code 0.1 See_Comment [Aut omated message] The = Basophils #) system which generated this result tra nsmitted reference range : <=0.2. The reference r celio was not used to int erpret this result as normal/abnormal . [facility] StephenvilleCttkerlWZLNGQYIXW5998-53-33 02:35:26 Test Item Value Reference Range Interpretation Comments Lymphocytes # (test code = Lymphocytes 3.7 1.0-5.5 #) [facility] StephenvilleRalxewcWXEHXCTFTQ8427-12-96 02:35:26 Test Item Value Reference Range Interpretation Comments Monocytes # (test code 0.4 See_Comment [Aut omated message] The = Monocytes #) system which generated this result tra nsmitted reference range : <=0.8. The reference r celio was not used to int erpret this result as normal/abnormal . [facility] StephenvilleXvwjtjlYFXQZRSUZH9324-48-49 02:35:26 Test Item Value Reference Range Interpretation Comments Monocytes (test code = Monocytes) 3.9 2.0-12.0 [facility] StephenvilleYrvefwlVFQNADXFBH9593-91-02 02:35:26 Test Item Value Reference Range Interpretation Comments Eosinophils (test code = 2.3 See_Comment [A utomated message] The Eosinophils) system which ge nerated this result tra nsmitted reference range : <=4.0. The reference r celio was not used to int erpret this result as normal/abnormal . [facility] StephenvilleCemwoysHJOZWMHJIX0286-95-76 02:35:26 Test Item Value Reference Range Interpretation Comments Lymphocytes (test code = Lymphocytes) 37.8 20.0-40.0 [facility] StephenvilleImdhvkxPZSTVDTVYI3074-16-27 02:35:26 Test Item Value Reference Range Interpretation Comments RBC (test code = RBC) 4.83 4.20-5.40 [facility] StephenvilleMnlytlcLGQPNTMXAC3248-81-87 02:35:26 Test Item Value Reference Range Interpretation Comments MPV (test code = MPV) 8.1 7.4-10.4 [facility] StephenvilleZtpraaiILCMDWNVDB6425-19-53 02:35:26 Test Item Value Reference Range Interpretation Comments Hgb (test code = Hgb) 14.7 12.0-16.0 [facility] StephenvilleLnphekkBJFGYTSALF0813-58-74 02:35:26 Test Item Value Reference Range Interpretation Comments MCV (test code = MCV) 89.2 81.0-99.0 [place] 754224-06-26 02:35:26 Test Item Value Reference Range Interpretation Comments Hct (test code = Hct) 43.1 36.0-48.0 [facility] StephenvilleCdwuehsMJKNUSFCJL4494-57-32 02:35:26 Test Item Value Reference Range Interpretation Comments MCH (test code = MCH) 30.4 pg 27.0-31.0 [facility] StephenvillePdmerqbXRRDWJNLSG3454-37-44 02:35:26 Test Item Value Reference Range Interpretation Comments WBC (test code = WBC) 9.7 3.7-10.4 [facility] StephenvilleTzuxxcvJAQVVXFTKC8443-17-80 02:35:26 Test Item Value Reference Range Interpretation Comments RDW (test code = RDW) 12.8 11.5-14.5 [facility] StephenvilleNlcjcqmUBEZHUEZHD1165-42-05 02:35:26 Test Item Value Reference Range Interpretation Comments Platelet (test code = Platelet) 372 133-450 [facility] StephenvilleRsxqdfcCFQFGKEOFG1037-86-73 02:35:26 Test Item Value Reference Range Interpretation Comments MCHC (test code = MCHC) 34.0 32.0-36.0 [facility] StephenvilleNvdyxnqWXETYORTQX8234-25-23 02:35:26 Test Item Value Reference Range Interpretation Comments PT (test code = PT) 12.2 s 12.0-14.7 [facility] StephenvillePvfcjnpYKIFZJIWDA5322-07-34 02:35:26 Test Item Value Reference Range Interpretation Comments INR (test code = INR) 0.91 0.85-1.17 [facility] StephenvilleCllwcpjWLSOOVILHR2726-12-29 02:35:26 Test Item Value Reference Range Interpretation Comments PTT (test code = PTT) 30.2 s 22.9-35.8 [facility] AND [id number] 19:39:00 Test Item Value Reference Range Interpretation Comments UA Urobilinogen (test code = UA <=1.0 mg/dL 0.1-1.0 Urobilinogen) [facility] AND [id number] 19:39:00 Test Item Value Reference Range Interpretation Comments UA Mucus (test code = UA Mucus) Few /LPF [facility] AND [id number] 19:39:00 Test Item Value Reference Range Interpretation Comments UA Bacteria (test code = UA Occasional /HPF Bacteria) [facility] AND [id number] 19:39:00 Test Item Value Reference Range Interpretation Comments UA Sq Epi (test code = UA Sq Epi) Few /LPF [facility] AND [id number] 19:39:00 Test Item Value Reference Range Interpretation Comments UA WBC (test code = 2 See_Comment [Automa blayne message] The UA WBC) system which ge nerated this result transmit blayne reference range : <=5. The reference range was not used to interpr et this result as dequan l/abnormal. [facility] AND [id number] 19:39:00 Test Item Value Reference Range Interpretation Comments UA Blood (test code = Negative (12/31/13 2:39 UA Blood) PM) [facility] AND [id number] 19:39:00 Test Item Value Reference Range Interpretation Comments UA Nitrite (test code Negative (12/31/13 2:39 = UA Nitrite) PM) [facility] AND [id number] 19:39:00 Test Item Value Reference Range Interpretation Comments UA Leuk Est (test code Small *ABN*(12/31/13 = UA Leuk Est) 2:39 PM) [facility] AND [id number] 19:39:00 Test Item Value Reference Range Interpretation Comments UA Glucose (test code = UA Negative mg/dL Glucose) [facility] AND [id number] 19:39:00 Test Item Value Reference Range Interpretation Comments UA Ketones (test code = UA Negative mg/dL Ketones) [facility] AND [id number] 19:39:00 Test Item Value Reference Range Interpretation Comments UA Bili (test code = Negative *NA*(12/31/13 UA Bili) 2:39 PM) [facility] AND [id number] 19:39:00 Test Item Value Reference Range Interpretation Comments UA Spec Grav (test code = UA Spec Grav) 1.017 [facility] AND [id number] 19:39:00 Test Item Value Reference Range Interpretation Comments UA Protein (test code = UA Protein) 20 mg/dL [facility] AND [id number] 19:39:00 Test Item Value Reference Range Interpretation Comments UA pH (test code = UA pH) 6.0 5.0-8.0 [facility] AND [id number] 19:39:00 Test Item Value Reference Range Interpretation Comments UA Turbidity (test code = Clear (12/31/13 2:39 UA Turbidity) PM) [facility] [id number] 19:39:00 Test Item Value Reference Range Interpretation Comments UA Color (test code = Yellow *NA*(12/31/13 UA Color) 2:39 PM) [facility]hkojtbZKUPMDRXUM0551-34-39 11:00:00 Test Item Value Reference Range Interpretation Comments RDW (test code = RDW) 14.7 11.5-14.5 [facility] CenterWradnajTVSRVPFQYA6286-14-76 11:00:00 Test Item Value Reference Range Interpretation Comments Hct (test code = Hct) 37.8 36.0-48.0 [facility] StephenvilleCcokfvjQGHWXKMUHZ0100-85-40 11:00:00 Test Item Value Reference Range Interpretation Comments Hgb (test code = Hgb) 12.7 12.0-16.0 [facility] StephenvilleFskjvydGSAQKHFHYM8394-25-74 11:00:00 Test Item Value Reference Range Interpretation Comments WBC (test code = WBC) 8.3 3.7-10.4 [facility] StephenvilleLapqwqnYJBFTZQXYZ0163-41-62 11:00:00 Test Item Value Reference Range Interpretation Comments RBC (test code = RBC) 4.21 4.20-5.40 [facility] StephenvilleQbqgpaxFYRVSHLABV3620-37-16 11:00:00 Test Item Value Reference Range Interpretation Comments MCHC (test code = MCHC) 33.6 32.0-36.0 [facility] StephenvilleHdgihknCSTLIDEJRY7067-96-25 11:00:00 Test Item Value Reference Range Interpretation Comments MCH (test code = MCH) 30.1 pg 27.0-31.0 [facility] StephenvilleHjhroknNNSVSKIHIX9557-69-33 11:00:00 Test Item Value Reference Range Interpretation Comments MCV (test code = MCV) 89.6 81.0-99.0 [facility] StephenvilleErrutviSKYKNWGXGT6662-67-91 11:00:00 Test Item Value Reference Range Interpretation Comments Segs (test code = Segs) 58.8 45.0-75.0 [facility] StephenvilleLsikcvcGCRSOILSCN5963-62-97 11:00:00 Test Item Value Reference Range Interpretation Comments Monocytes # (test code 0.6 See_Comment [Aut omated message] The = Monocytes #) system which generated this result tra nsmitted reference range : <=0.8. The reference r celio was not used to int erpret this result as normal/abnormal . [facility] StephenvilleNoasfoqJSOIYSCIMD5185-86-03 11:00:00 Test Item Value Reference Range Interpretation Comments Eosinophils # (test code 0.3 See_Comment [A utomated message] The = Eosinophils #) system whic h generated this result tra nsmitted reference range : <=0.5. The reference r celio was not used to int erpret this result as normal/abnormal . [facility] Stephenvil[id number] 11:00:00 Test Item Value Reference Range Interpretation Comments Basophils (test code = 0.6 See_Comment [Aut omated message] The Basophils) system which ge nerated this result tra nsmitted reference range : <=1.0. The reference r celio was not used to int erpret this result as normal/abnormal . [facility] StephenvilleJtqjeaqSLOWZAVDVB8730-95-02 11:00:00 Test Item Value Reference Range Interpretation Comments Segs-Bands # (test code = Segs-Bands #) 4.9 1.5-8.1 [facility] StephenvilleBzvctudPYYXOKTCIS9119-19-64 11:00:00 Test Item Value Reference Range Interpretation Comments Lymphocytes # (test code = Lymphocytes 2.4 1.0-5.5 #) [facility] StephenvilleCtexcxlKFUIASVQLF4056-23-60 11:00:00 Test Item Value Reference Range Interpretation Comments Eosinophils (test code = 4.1 See_Comment [A utomated message] The Eosinophils) system which ge nerated this result tra nsmitted reference range : <=4.0. The reference r celio was not used to int erpret this result as normal/abnormal . [facility] StephenvilleEgvtuiyNGYERVCFEA5317-01-54 11:00:00 Test Item Value Reference Range Interpretation Comments Lymphocytes (test code = Lymphocytes) 29.4 20.0-40.0 [facility] StephenvilleHmjizhxSQMSKLOSYP7466-28-34 11:00:00 Test Item Value Reference Range Interpretation Comments Monocytes (test code = Monocytes) 7.1 2.0-12.0 [facility]2014-04-09 11:00:00 Test Item Value Reference Range Interpretation Comments Bili Indirect (test 0.2 See_Comment [Automa blayne message] The code = Bili Indirect) system which generated this result tra nsmitted reference range : <=1.0. The reference r celio was not used to int erpret this result as normal/abnormal . [facility]2014-04-09 11:00:00 Test Item Value Reference Range Interpretation Comments Bili Total (test code = Bili Total) 0.3 0.2-1.3 [facility]2014-04-09 11:00:00 Test Item Value Reference Range Interpretation Comments Bili Direct (test code 0.1 See_Comment [Aut omated message] The = Bili Direct) system which generated this result tra nsmitted reference range : <=0.3. The reference r celio was not used to int erpret this result as dequan l/abnormal. [facility]2014-04-09 11:00:00 Test Item Value Reference Range Interpretation Comments A/G Ratio (test code = A/G Ratio) 1.0 0.7-1.6 [facility]2014-04-09 11:00:00 Test Item Value Reference Range Interpretation Comments AST (test code = AST) 38 See_Comment [Auto mated message] The system which ge nerated this result transmit blayne reference range : <=37. The reference range was not used to interpr et this result as dequan l/abnormal. [facility]2014-04-09 11:00:00 Test Item Value Reference Range Interpretation Comments Globulin (test code = Globulin) 3.3 2.0-4.0 [facility]2014-04-09 11:00:00 Test Item Value Reference Range Interpretation Comments Total Protein (test code = Total 6.7 6.4-8.4 Protein) [facility]2014-04-09 11:00:00 Test Item Value Reference Range Interpretation Comments ALT (test code = ALT) 104 See_Comment [Auto mated message] The system which ge nerated this result transmit blayne reference range : <=65. The reference range was not used to interpr et this result as dequan l/abnormal. [facility]2014-04-09 11:00:00 Test Item Value Reference Range Interpretation Comments Alk Phos (test code = Alk Phos) 62 39-136 [facility] [id number] 11:00:00 Test Item Value Reference Range Interpretation Comments Albumin Lvl (test code = Albumin Lvl) 3.4 3.5-5.0 [facility] HospitalYfgohyrMYIKWBNDFOOD3336-36-60 11:00:00 Test Item Value Reference Range Interpretation Comments AGAP (test code = AGAP) 15.3 10.0-20.0 [facility] HospitalGsktjvpOLDHLTMDLLIT3555-74-46 11:00:00 Test Item Value Reference Range Interpretation Comments eGFR (test code = eGFR) 104 [facility] HospitalDxfheaeVUFYSYMMYKIU8267-38-76 11:00:00 Test Item Value Reference Range Interpretation Comments Chloride Lvl (test code = Chloride Lvl) 106 95-109 [facility] HospitalJasplbxZRENKTFUJGQN5811-55-35 11:00:00 Test Item Value Reference Range Interpretation Comments CO2 (test code = CO2) 26 24-32 [facility] HospitalFdtihpsXAMFMFGLEGXY7482-37-45 11:00:00 Test Item Value Reference Range Interpretation Comments Potassium Lvl (test code = Potassium 4.3 3.5-5.1 Lvl) [facility] HospitalSkdsudtETZHCHUJBIMO7007-28-34 11:00:00 Test Item Value Reference Range Interpretation Comments Calcium Lvl (test code = Calcium Lvl) 8.9 8.5-10.5 [facility] HospitalYqznpzdAWTGIELLDUBE6009-88-49 11:00:00 Test Item Value Reference Range Interpretation Comments Glucose Lvl (test code = Glucose Lvl) 97 70-99 [facility] HospitalCtxxoozDDPCAQIATEPV7466-59-63 11:00:00 Test Item Value Reference Range Interpretation Comments BUN (test code = BUN) 14 7-22 [facility] HospitalKktnrtsQPLWJQCVMEGR9239-23-01 11:00:00 Test Item Value Reference Range Interpretation Comments Creatinine Lvl (test code = Creatinine 0.7 0.5-1.4 Lvl) [facility] HospitalMexzmgpDMTJDOZIKXSS9933-36-11 11:00:00 Test Item Value Reference Range Interpretation Comments Sodium Lvl (test code = Sodium Lvl) 143 135-145 [facility] CenterKnaxmvnESQUMEZEWS1299-72-59 11:00:00 Test Item Value Reference Range Interpretation Comments MPV (test code = MPV) 8.5 7.4-10.4 [facility]JvboekaIYLGRMBRXU0557-03-00 11:00:00 Test Item Value Reference Range Interpretation Comments Platelet (test code = Platelet) 308 133-450 [facility]CHE[facility] [id number] 09:19:00 Test Item Value Reference Range Interpretation Comments eGFR (test code = eGFR) 104 [facility]2014-04-06 09:19:00 Test Item Value Reference Range Interpretation Comments Potassium Lvl (test code = Potassium 4.2 3.5-5.1 Lvl) [facility]2014-04-06 09:19:00 Test Item Value Reference Range Interpretation Comments Chloride Lvl (test code = Chloride Lvl) 104 95-109 [facility]2014-04-06 09:19:00 Test Item Value Reference Range Interpretation Comments AST (test code = AST) 47 See_Comment [Auto mated message] The system which ge nerated this result transmit blayne reference range : <=37. The reference range was not used to interpr et this result as dequan l/abnormal. [facility]2014-04-06 09:19:00 Test Item Value Reference Range Interpretation Comments Total Protein (test code = Total 7.0 6.4-8.4 Protein) [facility]2014-04-06 09:19:00 Test Item Value Reference Range Interpretation Comments Calcium Lvl (test code = Calcium Lvl) 9.6 8.5-10.5 [facility]2014-04-06 09:19:00 Test Item Value Reference Range Interpretation Comments Bili Total (test code = Bili Total) 0.3 0.2-1.3 [facility]2014-04-06 09:19:00 Test Item Value Reference Range Interpretation Comments CO2 (test code = CO2) 27 24-32 [facility]2014-04-06 09:19:00 Test Item Value Reference Range Interpretation Comments Alk Phos (test code = Alk Phos) 64 39-136 [facility]2014-04-06 09:19:00 Test Item Value Reference Range Interpretation Comments Glucose Lvl (test code = Glucose Lvl) 102 70-99 [facility]2014-04-06 09:19:00 Test Item Value Reference Range Interpretation Comments Albumin Lvl (test code = Albumin Lvl) 3.8 3.5-5.0 [facility] [facility]:00 Test Item Value Reference Range Interpretation Comments ALT (test code = ALT) 107 See_Comment [Auto mated message] The system which ge nerated this result transmit blayne reference range : <=65. The reference range was not used to interpr et this result as dequan l/abnormal. [facility]2014-04-06 09:19:00 Test Item Value Reference Range Interpretation Comments Creatinine Lvl (test code = Creatinine 0.7 0.5-1.4 Lvl) [facility]2014-04-06 09:19:00 Test Item Value Reference Range Interpretation Comments BUN (test code = BUN) 15 7-22 [facility]2014-04-06 09:19:00 Test Item Value Reference Range Interpretation Comments Sodium Lvl (test code = Sodium Lvl) 141 135-145 [facility]2014-04-06 09:19:00 Test Item Value Reference Range Interpretation Comments B/C Ratio (test code = B/C Ratio) 21 6-25 [facility]2014-04-06 09:19:00 Test Item Value Reference Range Interpretation Comments Globulin (test code = Globulin) 3.2 2.0-4.0 [facility]2014-04-06 09:19:00 Test Item Value Reference Range Interpretation Comments AGAP (test code = AGAP) 14.2 10.0-20.0 [facility]2014-04-06 09:19:00 Test Item Value Reference Range Interpretation Comments A/G Ratio (test code = A/G Ratio) 1.2 0.7-1.6 [facility]ZzeqxmqOROQYIEASI1013-04-49 09:19:00 Test Item Value Reference Range Interpretation Comments Lymphocytes # (test code = Lymphocytes 3.5 1.0-5.5 #) [facility] StephenvilleFemweypAEHWWKIHAB8077-04-03 09:19:00 Test Item Value Reference Range Interpretation Comments Monocytes # (test code 0.7 See_Comment [Aut omated message] The = Monocytes #) system which generated this result tra nsmitted reference range : <=0.8. The reference r celio was not used to int erpret this result as normal/abnormal . [facility] StephenvilleTurwcbqDJDYLATKVV7619-98-19 09:19:00 Test Item Value Reference Range Interpretation Comments Segs-Bands # (test code = Segs-Bands #) 3.9 1.5-8.1 [facility] StephenvilleLvodalxLKWSWZUFNW9906-80-56 09:19:00 Test Item Value Reference Range Interpretation Comments Basophils (test code = 0.6 See_Comment [Aut omated message] The Basophils) system which ge nerated this result tra nsmitted reference range : <=1.0. The reference r celio was not used to int erpret this result as normal/abnormal . [facility] StephenvilleAhuknyaSNDXZCSANP6161-58-13 09:19:00 Test Item Value Reference Range Interpretation Comments Segs (test code = Segs) 47.2 45.0-75.0 [facility] StephenvilleShzovqjMBGWNBWKXB2000-66-78 09:19:00 Test Item Value Reference Range Interpretation Comments Lymphocytes (test code = Lymphocytes) 41.8 20.0-40.0 [facility] StephenvillePuzdwpdTMQZCVAEQH6111-79-07 09:19:00 Test Item Value Reference Range Interpretation Comments Eosinophils (test code = 2.5 See_Comment [A utomated message] The Eosinophils) system which ge nerated this result tra nsmitted reference range : <=4.0. The reference r celio was not used to int erpret this result as normal/abnormal . [facility] StephenvilleFsiilpmOEHCKXGBBT9976-88-39 09:19:00 Test Item Value Reference Range Interpretation Comments Monocytes (test code = Monocytes) 7.9 2.0-12.0 [facility] StephenvilleIfbqjlnQBJXFMPILW3937-54-40 09:19:00 Test Item Value Reference Range Interpretation Comments Eosinophils # (test code 0.2 See_Comment [A utomated message] The = Eosinophils #) system whic h generated this result tra nsmitted reference range : <=0.5. The reference r celio was not used to int erpret this result as normal/abnormal . [facility] StephenvilleZixpptaSKBNOTVPQB2720-37-80 09:19:00 Test Item Value Reference Range Interpretation Comments Basophils # (test code 0.1 See_Comment [Aut omated message] The = Basophils #) system which generated this result tra nsmitted reference range : <=0.2. The reference r celio was not used to int erpret this result as normal/abnormal . [facility] StephenvilleWlkjesyLNOJNWQWFE1710-51-57 09:19:00 Test Item Value Reference Range Interpretation Comments MCHC (test code = MCHC) 34.8 32.0-36.0 [facility] StephenvilleLygxwkpHBKWOXCHMZ3075-39-13 09:19:00 Test Item Value Reference Range Interpretation Comments RDW (test code = RDW) 14.6 11.5-14.5 [facility] StephenvilleIbmraibHWVCGUCEPV1526-38-79 09:19:00 Test Item Value Reference Range Interpretation Comments Platelet (test code = Platelet) 296 133-450 [facility] StephenvilleHdihtseMGEQJZLRCH5467-28-23 09:19:00 Test Item Value Reference Range Interpretation Comments MPV (test code = MPV) 8.4 7.4-10.4 [facility] StephenvilleJcskkfyUXDBVIJBOQ7479-88-59 09:19:00 Test Item Value Reference Range Interpretation Comments WBC (test code = WBC) 8.4 3.7-10.4 [facility] StephenvilleSpadlipCWQTYBNPQW6131-48-38 09:19:00 Test Item Value Reference Range Interpretation Comments Hct (test code = Hct) 40.0 36.0-48.0 [facility] StephenvilleXzgbrixZTIFJBEAYT0974-58-60 09:19:00 Test Item Value Reference Range Interpretation Comments Hgb (test code = Hgb) 13.9 12.0-16.0 [facility] StephenvilleDryfegdUBTXPALVLG7184-75-63 09:19:00 Test Item Value Reference Range Interpretation Comments MCH (test code = MCH) 30.7 pg 27.0-31.0 [facility] StephenvilleBbpqexwRLYXHJRFYT4257-82-81 09:19:00 Test Item Value Reference Range Interpretation Comments MCV (test code = MCV) 88.3 81.0-99.0 [facility] StephenvilleGozhxtlUZQYQQEYEB7687-80-83 09:19:00 Test Item Value Reference Range Interpretation Comments RBC (test code = RBC) 4.53 4.20-5.40 [facility] HospitalBqqiwigPZXTSUPBQYHN4099-88-54 10:29:00 Test Item Value Reference Range Interpretation Comments AGAP (test code = AGAP) 15.0 10.0-20.0 [facility] HospitalUhrridwCAAUNXEVFAHS7707-57-50 10:29:00 Test Item Value Reference Range Interpretation Comments eGFR (test code = eGFR) 88 [facility] HospitalWqhngtwLCORAFCUHJVK2706-47-74 10:29:00 Test Item Value Reference Range Interpretation Comments Calcium Lvl (test code = Calcium Lvl) 9.2 8.5-10.5 [facility] HospitalBigshuvOEYRQFAAYMGN2104-71-02 10:29:00 Test Item Value Reference Range Interpretation Comments Chloride Lvl (test code = Chloride Lvl) 103 95-109 [facility] HospitalXavesouMBROUMYATFFI2713-71-05 10:29:00 Test Item Value Reference Range Interpretation Comments CO2 (test code = CO2) 25 24-32 [facility] HospitalNkvseozKFNHACMJRJTJ9102-79-69 10:29:00 Test Item Value Reference Range Interpretation Comments Potassium Lvl (test code = Potassium 4.0 3.5-5.1 Lvl) [facility] HospitalGnyfiqnFVUAILSKBUXT5012-67-70 10:29:00 Test Item Value Reference Range Interpretation Comments Sodium Lvl (test code = Sodium Lvl) 139 135-145 [facility] HospitalYyjigwlWNCJDLAVYRZO3298-08-71 10:29:00 Test Item Value Reference Range Interpretation Comments Creatinine Lvl (test code = Creatinine 0.8 0.5-1.4 Lvl) [facility] HospitalIbrirndDEENWFSBEYPM8565-24-65 10:29:00 Test Item Value Reference Range Interpretation Comments BUN (test code = BUN) 19 7-22 [facility] HospitalGutuobnDBHTMTKNQSCD8558-22-06 10:29:00 Test Item Value Reference Range Interpretation Comments Glucose Lvl (test code = Glucose Lvl) 87 70-99 [facility] StephenvilleNixasaoSUALOSNSYA6566-08-05 10:29:00 Test Item Value Reference Range Interpretation Comments MPV (test code = MPV) 9.0 7.4-10.4 [facility] StephenvilleGhzerjnMCLRHMMCCX6023-13-62 10:29:00 Test Item Value Reference Range Interpretation Comments Platelet (test code = Platelet) 299 133-450 [facility] StephenvilleBmismkzPQCXQJHOIF7805-69-32 10:29:00 Test Item Value Reference Range Interpretation Comments MCHC (test code = MCHC) 34.4 32.0-36.0 [facility] StephenvilleMqveniiVVDTNIVFPF8941-70-43 10:29:00 Test Item Value Reference Range Interpretation Comments RDW (test code = RDW) 14.6 11.5-14.5 [facility] StephenvilleArdqfcgDEFFDCSFUF5824-10-27 10:29:00 Test Item Value Reference Range Interpretation Comments MCH (test code = MCH) 30.5 pg 27.0-31.0 [facility] StephenvilleDumtnltSUWOVIYLEF0711-13-52 10:29:00 Test Item Value Reference Range Interpretation Comments RBC (test code = RBC) 4.33 4.20-5.40 [facility] StephenvilleTotqrjeYDCHIQTDHW8937-56-37 10:29:00 Test Item Value Reference Range Interpretation Comments WBC (test code = WBC) 7.5 3.7-10.4 [facility] StephenvilleYllafzyEHRWROROYJ4312-62-27 10:29:00 Test Item Value Reference Range Interpretation Comments MCV (test code = MCV) 88.7 81.0-99.0 [facility] StephenvilleYymqrlbYKALCIOZOT8000-72-93 10:29:00 Test Item Value Reference Range Interpretation Comments Hgb (test code = Hgb) 13.2 12.0-16.0 [facility] StephenvilleWlbobkwNKJIBKFIWZ5051-90-36 10:29:00 Test Item Value Reference Range Interpretation Comments Hct (test code = Hct) 38.4 36.0-48.0 [facility] StephenvilleTffqvoqPFWJRMZHDJ4749-51-59 10:29:00 Test Item Value Reference Range Interpretation Comments Monocytes (test code = Monocytes) 6.0 2.0-12.0 [facility] StephenvilleNbchtwvRHUXKWTOST2658-96-90 10:29:00 Test Item Value Reference Range Interpretation Comments Eosinophils (test code = 2.2 See_Comment [A utomated message] The Eosinophils) system which ge nerated this result tra nsmitted reference range : <=4.0. The reference r celio was not used to int erpret this result as normal/abnormal . [facility] StephenvilleLvfxglgNFXAATJHWR5276-25-01 10:29:00 Test Item Value Reference Range Interpretation Comments Eosinophils # (test code 0.2 See_Comment [A utomated message] The = Eosinophils #) system ic h generated this result tra nsmitted reference range : <=0.5. The reference r celio was not used to int erpret this result as normal/abnormal . [facility] StephenvilleJaialpaYOMICBTDUL7260-50-60 10:29:00 Test Item Value Reference Range Interpretation Comments Lymphocytes (test code = Lymphocytes) 45.2 20.0-40.0 [facility] StephenvilleQdonfhyFMARFZYTIK3343-57-59 10:29:00 Test Item Value Reference Range Interpretation Comments Monocytes # (test code 0.4 See_Comment [Aut omated message] The = Monocytes #) system which generated this result tra nsmitted reference range : <=0.8. The reference r celio was not used to int erpret this result as normal/abnormal . [facility] StephenvilleNvrwpssRHBRMIYLKL5994-05-80 10:29:00 Test Item Value Reference Range Interpretation Comments Lymphocytes # (test code = Lymphocytes 3.4 1.0-5.5 #) [facility] StephenvilleDdczfcjBSWJRCZFTF9805-00-88 10:29:00 Test Item Value Reference Range Interpretation Comments Basophils (test code = 0.5 See_Comment [Aut omated message] The Basophils) system which ge nerated this result tra nsmitted reference range : <=1.0. The reference r celio was not used to int erpret this result as normal/abnormal . [facility] StephenvilleIrlwdzwXYVAFNOYMD0917-50-34 10:29:00 Test Item Value Reference Range Interpretation Comments Segs-Bands # (test code = Segs-Bands #) 3.4 1.5-8.1 [facility] StephenvilleClbueunGRNEPIQKDE9707-40-64 10:29:00 Test Item Value Reference Range Interpretation Comments Segs (test code = Segs) 46.1 45.0-75.0 [facility]2014-03-26 10:30:04 Test Item Value Reference Range Interpretation Comments Globulin (test code = Globulin) 3.3 2.0-4.0 [facility]2014-03-26 10:30:04 Test Item Value Reference Range Interpretation Comments A/G Ratio (test code = A/G Ratio) 1.1 0.7-1.6 [facility]2014-03-26 10:30:04 Test Item Value Reference Range Interpretation Comments ASPARTATE TRANSAMINASE 69 See_Comment [Aut omated message] (test code = ASPARTATE The s ystem which TRANSAMINASE) generated this result transmitted ref erence range: <=37. Th e reference range was not used to interpr et this result as normal/abnormal . [facility]2014-03-26 10:30:04 Test Item Value Reference Range Interpretation Comments Bili Indirect (test 0.2 See_Comment [Automa blayne message] The code = Bili Indirect) system which generated this result tra nsmitted reference range : <=1.0. The reference r celio was not used to int erpret this result as normal/abnormal . [facility]2014-03-26 10:30:04 Test Item Value Reference Range Interpretation Comments Bili Total (test code = Bili Total) 0.3 0.2-1.3 [facility]2014-03-26 10:30:04 Test Item Value Reference Range Interpretation Comments Total Protein (test code = Total 6.8 6.4-8.4 Protein) [facility]2014-03-26 10:30:04 Test Item Value Reference Range Interpretation Comments Alk Phos (test code = Alk Phos) 66 39-136 [facility]2014-03-26 10:30:04 Test Item Value Reference Range Interpretation Comments Bili Direct (test code 0.1 See_Comment [Aut omated message] The = Bili Direct) system which generated this result tra nsmitted reference range : <=0.3. The reference r celio was not used to int erpret this result as dequan l/abnormal. [facility]2014-03-26 10:30:04 Test Item Value Reference Range Interpretation Comments ALANINE AMINOTRANSFERASE 125 See_Comment [A utomated message] (test code = ALANINE The sys tem which AMINOTRANSFERASE) generated this result transmitted ref erence range: <=65. Th e reference range was not used to int erpret this result as normal/abnormal . [facility]2014-03-26 10:30:04 Test Item Value Reference Range Interpretation Comments Albumin Lvl (test code = Albumin Lvl) 3.5 3.5-5.0 [facility]2014-03-24 10:03:00 Test Item Value Reference Range Interpretation Comments Magnesium Lvl (test code = Magnesium 1.5 1.8-2.4 Lvl) [facility]2014-03-24 10:03:00 Test Item Value Reference Range Interpretation Comments Phosphorus (test code = Phosphorus) 4.4 2.5-4.5 [facility]yjssnTYTYGD6019-79-79 10:03:00 Test Item Value Reference Range Interpretation Comments VLDL (test code = VLDL) 38 [facility] HospitalFtqcoswFURTAS0574-70-84 10:03:00 Test Item Value Reference Range Interpretation Comments LDL (Calculated) (test code = LDL 121 (Calculated)) [facility] HospitalDhvwgciIMVCJX4423-77-34 10:03:00 Test Item Value Reference Range Interpretation Comments Chol (test code = Chol) 208 [facility] HospitalDclldnpYGXUHS7786-40-92 10:03:00 Test Item Value Reference Range Interpretation Comments Trig (test code = Trig) 191 [facility] HospitalSenrkzsNNYHOL4452-38-85 10:03:00 Test Item Value Reference Range Interpretation Comments HDL (test code = HDL) 49 [facility]bl[facility]BUFADL3089[facility] 10:03:00 Test Item Value Reference Range Interpretation Comments CHD Risk (test code = CHD Risk) 4.24 3.90-5.80 [facility]2014-03-21 11:00:00 Test Item Value Reference Range Interpretation Comments Bili Indirect (test 0.2 See_Comment [Automa blayne message] The code = Bili Indirect) system which generated this result tra nsmitted reference range : <=1.0. The reference r celio was not used to int erpret this result as normal/abnormal . [facility]2014-03-21 11:00:00 Test Item Value Reference Range Interpretation Comments Bili Direct (test code 0.1 See_Comment [Aut omated message] The = Bili Direct) system which generated this result tra nsmitted reference range : <=0.3. The reference r celio was not used to int erpret this result as dequan l/abnormal. [facility]2014-03-17 06:57:53 Test Item Value Reference Range Interpretation Comments B/C Ratio (test code = B/C Ratio) 12 6-25 [facility]2014-03-14 11:45:00 Test Item Value Reference Range Interpretation Comments Vitamin B12 Lvl (test code = Vitamin 149 691-0251 B12 Lvl) [facility]2014-03-14 11:45:00 Test Item Value Reference Range Interpretation Comments Folate Lvl (test code = Folate Lvl) 17.6 [facility]2014-03-14 11:45:00 Test Item Value Reference Range Interpretation Comments Magnesium Lvl (test code = Magnesium 2.0 1.8-2.4 Lvl) [facility]2014-03-14 11:45:00 Test Item Value Reference Range Interpretation Comments VITAMIN B1 (THIAMINE) WHOLE BLOOD (test 71 78-185 code = VITAMIN B1 (THIAMINE) WHOLE BLOOD) [facility]2014 10:05:00 Test Item Value Reference Range Interpretation Comments Amylase Lvl (test code = Amylase Lvl) 46 25-115 [facility]2014 10:05:00 Test Item Value Reference Range Interpretation Comments Lipase Lvl (test code = Lipase Lvl) 152 73-393 [facility]RviwkfnHRFPFSNKBD1301-90-47 19:46:00 Test Item Value Reference Range Interpretation Comments aPTT (test code = aPTT) 30.8 s 22.9-35.8 [facility] CenterCARDIAC DQUMGKN5925-39-36 10:25:00 Test Item Value Reference Range Interpretation Comments Total CK (test code = Total CK) 58 12-191 [facility] VOKRC6782-92-12 10:25:00 Test Item Value Reference Range Interpretation Comments Calcium Lvl (test code = Calcium Lvl) 9.4 8.5-10.5 [facility]2014-03-10 10:25:00 Test Item Value Reference Range Interpretation Comments Magnesium Lvl (test code = Magnesium 1.9 1.8-2.4 Lvl) [facility]2014-03-10 10:25:00 Test Item Value Reference Range Interpretation Comments Phosphorus (test code = Phosphorus) 5.0 2.5-4.5 [facility]2014-03-10 10:25:00 Test Item Value Reference Range Interpretation Comments A/G Ratio (test code = A/G Ratio) 1.3 0.7-1.6 [facility]2014-03-10 10:25:00 Test Item Value Reference Range Interpretation Comments Globulin (test code = Globulin) 2.9 2.0-4.0 [facility]2014-03-10 10:25:00 Test Item Value Reference Range Interpretation Comments Bili Indirect (test 0.3 See_Comment [Automa blayne message] The code = Bili Indirect) system which generated this result tra nsmitted reference range : <=1.0. The reference r celio was not used to int erpret this result as normal/abnormal . [facility]2014-03-10 10:25:00 Test Item Value Reference Range Interpretation Comments Alk Phos (test code = Alk Phos) 97 39-136 [facility]2014-03-10 10:25:00 Test Item Value Reference Range Interpretation Comments Total Protein (test code = Total 6.6 6.4-8.4 Protein) [facility]2014-03-10 10:25:00 Test Item Value Reference Range Interpretation Comments Bili Direct (test code 0.1 See_Comment [Aut omated message] The = Bili Direct) system which generated this result tra nsmitted reference range : <=0.3. The reference r celio was not used to int erpret this result as dequan l/abnormal. [facility] [employer] [id number] 10:25:00 Test Item Value Reference Range Interpretation Comments ALANINE AMINOTRANSFERASE 116 See_Comment [A utomated message] (test code = ALANINE The sys tem which AMINOTRANSFERASE) generated this result transmitted ref erence range: <=65. Th e reference range was not used to int erpret this result as normal/abnormal . [facility] [employer] [id number] 10:25:00 Test Item Value Reference Range Interpretation Comments Albumin Lvl (test code = Albumin Lvl) 3.7 3.5-5.0 [facility] [id number] 10:25:00 Test Item Value Reference Range Interpretation Comments Bili Total (test code = Bili Total) 0.4 0.2-1.3 [facility] [id number] 10:25:00 Test Item Value Reference Range Interpretation Comments ASPARTATE TRANSAMINASE 63 See_Comment [Aut omated message] (test code = ASPARTATE The s ystem which TRANSAMINASE) generated this result transmitted ref erence range: <=37. Th e reference range was not used to interpr et this result as normal/abnormal . [facility] HospitalLooyxtuINWUYFCGGHNU7143-53-68 10:25:00 Test Item Value Reference Range Interpretation Comments AGAP (test code = AGAP) 14.1 10.0-20.0 [facility] HospitalEtzqfolVVTETCXFSGAY7684-71-33 10:25:00 Test Item Value Reference Range Interpretation Comments eGFR (test code = eGFR) 104 [facility] HospitalWlnevtgYBXISLPQFHDF5136-82-15 10:25:00 Test Item Value Reference Range Interpretation Comments Creatinine Lvl (test code = Creatinine 0.7 0.5-1.4 Lvl) [facility] HospitalKmxejznKERXFAQEJCXN7402-47-58 10:25:00 Test Item Value Reference Range Interpretation Comments BUN (test code = BUN) 13 7-22 [facility] HospitalNhcxcgxCOBBYFCWIWSW4191-81-98 10:25:00 Test Item Value Reference Range Interpretation Comments Glucose Lvl (test code = Glucose Lvl) 101 70-99 [facility] HospitalWtqflboLLAABIMWHAUS4858-58-29 10:25:00 Test Item Value Reference Range Interpretation Comments Sodium Lvl (test code = Sodium Lvl) 141 135-145 [facility] HospitalMphizatPNNLWZGWIUIM8380-96-77 10:25:00 Test Item Value Reference Range Interpretation Comments Calcium Lvl (test code = Calcium Lvl) 9.4 8.5-10.5 [facility] HospitalFuljzcwYSFNUDWBLPQY4732-81-45 10:25:00 Test Item Value Reference Range Interpretation Comments Chloride Lvl (test code = Chloride Lvl) 105 95-109 [facility] HospitalRxcknqjJMKLHUMXPQQM0329-28-38 10:25:00 Test Item Value Reference Range Interpretation Comments CO2 (test code = CO2) 26 24-32 [facility] HospitalOrparmkDXAFFEXENMXH6864-20-05 10:25:00 Test Item Value Reference Range Interpretation Comments Potassium Lvl (test code = Potassium 4.1 3.5-5.1 Lvl) [facility]villeQhcagwhHFKYYAAONZ3826-28-04 10:25:00 Test Item Value Reference Range Interpretation Comments MCV (test code = MCV) 89.0 81.0-99.0 [facility] StephenvilleNoexoopEWWFLWCFXI7588-47-15 10:25:00 Test Item Value Reference Range Interpretation Comments Hct (test code = Hct) 43.6 36.0-48.0 [facility] StephenvilleZsaoggyNBUVILHJQC2379-51-15 10:25:00 Test Item Value Reference Range Interpretation Comments MPV (test code = MPV) 8.5 7.4-10.4 [facility] StephenvilleVpwxksnCIGKUAYSJK0854-50-78 10:25:00 Test Item Value Reference Range Interpretation Comments Platelet (test code = Platelet) 291 133-450 [facility] StephenvilleVhxjbagPPLOUIHYJB3880-08-21 10:25:00 Test Item Value Reference Range Interpretation Comments RDW (test code = RDW) 13.8 11.5-14.5 [facility] StephenvilleGaalkrkYDGUCVSGRA7301-55-60 10:25:00 Test Item Value Reference Range Interpretation Comments MCHC (test code = MCHC) 34.7 32.0-36.0 [facility] StephenvilleVjfgopmBJBLGJOXKK4484-88-09 10:25:00 Test Item Value Reference Range Interpretation Comments MCH (test code = MCH) 30.9 pg 27.0-31.0 [facility]villeAlnuxykBRTMBWBONH6113-19-99 10:25:00 Test Item Value Reference Range Interpretation Comments RBC X 10x6 (test code = RBC X 10x6) 4.90 4.20-5.40 [facility] StephenvilleKntbbwyXYBVARLFGN4466-20-11 10:25:00 Test Item Value Reference Range Interpretation Comments WBC X 10x3 (test code = WBC X 10x3) 7.6 3.7-10.4 [facility] StephenvilleEqmlepsCWZACFUSCG6774-78-35 10:25:00 Test Item Value Reference Range Interpretation Comments Hgb (test code = Hgb) 15.1 12.0-16.0 [facility] StephenvilleObacravCBBDMZKGID2524-56-50 10:25:00 Test Item Value Reference Range Interpretation Comments Eosinophils # (test code 0.3 See_Comment [A utomated message] The = Eosinophils #) system whic h generated this result tra nsmitted reference range : <=0.5. The reference r celio was not used to int erpret this result as normal/abnormal . [facility] StephenvilleYslkjhqOHSNBMTAUB4085-70-40 10:25:00 Test Item Value Reference Range Interpretation Comments Lymphocytes # (test code = Lymphocytes 3.3 1.0-5.5 #) [facility] StephenvilleRwfwlvsHKJDBZSVHW0308-87-34 10:25:00 Test Item Value Reference Range Interpretation Comments Monocytes # (test code 0.6 See_Comment [Aut omated message] The = Monocytes #) system which generated this result tra nsmitted reference range : <=0.8. The reference r celio was not used to int erpret this result as normal/abnormal . [facility] StephenvilleJnuawdhCIOJTXYMQK9945-95-21 10:25:00 Test Item Value Reference Range Interpretation Comments Segs-Bands # (test code = Segs-Bands #) 3.4 1.5-8.1 [facility] StephenvilleAmqtpoxRIKMDBNTUQ2407-70-67 10:25:00 Test Item Value Reference Range Interpretation Comments Basophils (test code = 0.5 See_Comment [Aut omated message] The Basophils) system which ge nerated this result tra nsmitted reference range : <=1.0. The reference r celio was not used to int erpret this result as normal/abnormal . [facility] StephenvilleEwgqoykDSSCTWAFLG8763-86-03 10:25:00 Test Item Value Reference Range Interpretation Comments Segs (test code = Segs) 45.3 45.0-75.0 [facility] StephenvilleFuzxpbuGQAWYLJWPF5072-38-65 10:25:00 Test Item Value Reference Range Interpretation Comments Monocytes (test code = Monocytes) 7.9 2.0-12.0 [facility] StephenvilleOikszlaITAJSWUIUP8319-48-70 10:25:00 Test Item Value Reference Range Interpretation Comments Eosinophils (test code = 3.4 See_Comment [A utomated message] The Eosinophils) system which ge nerated this result tra nsmitted reference range : <=4.0. The reference r celio was not used to int erpret this result as normal/abnormal . [facility] StephenvilleAnixabmSQNBNQMZDO6169-41-06 10:25:00 Test Item Value Reference Range Interpretation Comments Lymphocytes (test code = Lymphocytes) 42.9 20.0-40.0 [facility] AND [id number] 13:26:07 Test Item Value Reference Range Interpretation Comments UA Urobilinogen (test code = UA <=1.0 mg/dL 0.1-1.0 Urobilinogen) [facility] AND [id number] 13:26:07 Test Item Value Reference Range Interpretation Comments UA WBC (test code = no gt See_Comment [Automa blayne message] The UA WBC) system which ge nerated this result transmit blayne reference range : <=5. The reference range was not used to interpr et this result as dequan l/abnormal. [facility] AND [id number] 13:26:07 Test Item Value Reference Range Interpretation Comments UA RBC (test code = 2 See_Comment [Automa blayne message] The UA RBC) system which ge nerated this result transmit blayne reference range : <=2. The reference range was not used to interpr et this result as dequan l/abnormal. [facility] AND [id number] 13:26:07 Test Item Value Reference Range Interpretation Comments UA Sq Epi (test code = UA Sq Epi) Many /LPF [facility] AND [id number] 13:26:07 Test Item Value Reference Range Interpretation Comments UA Mucus (test code = UA Mucus) Many /LPF [facility] AND [id number] 13:26:07 Test Item Value Reference Range Interpretation Comments UA Bacteria (test code = UA Few /HPF Bacteria) [facility] AND [id number] 13:26:07 Test Item Value Reference Range Interpretation Comments UA Amorph Valeria (test code = UA Moderate /HPF Amorph Valeria) [facility] AND [id number] 13:26:07 Test Item Value Reference Range Interpretation Comments UA Leuk Est (test code Large *ABN*(11/29/2013 = UA Leuk Est) 08:26:07 [place]) [facility] AND [id number] 13:26:07 Test Item Value Reference Range Interpretation Comments UA Blood (test code = Trace *ABN*(11/29/2013 UA Blood) 08:26:07 [place]) [facility] AND [id number] 13:26:07 Test Item Value Reference Range Interpretation Comments UA Nitrite (test code Negative (11/29/2013 = UA Nitrite) 08:26:07 [place]) [facility] AND [id number] 13:26:07 Test Item Value Reference Range Interpretation Comments UA Protein (test code = UA Protein) 30 mg/dL [facility] AND [id number] 13:26:07 Test Item Value Reference Range Interpretation Comments UA pH (test code = UA pH) 6.5 5.0-8.0 [facility] AND [id number] 13:26:07 Test Item Value Reference Range Interpretation Comments UA Glucose (test code = UA Negative mg/dL Glucose) [facility] AND [id number] 13:26:07 Test Item Value Reference Range Interpretation Comments UA Bili (test code = Negative *NA*(11/29/2013 UA Bili) 08:26:07 [facility]/[place]) [facility] AND [id number] 13:26:07 Test Item Value Reference Range Interpretation Comments UA Ketones (test code = UA Negative mg/dL Ketones) [facility] AND [id number] 13:26:07 Test Item Value Reference Range Interpretation Comments UA Color (test code = Yellow *NA*(11/29/2013 UA Color) 08:26:07 [place]) [facility] AND [id number] 13:26:07 Test Item Value Reference Range Interpretation Comments UA Turbidity (test code Marked = UA Turbidity) *ABN*(11/29/2013 08:26:07 [place]) [facility] AND [id number] 13:26:07 Test Item Value Reference Range Interpretation Comments UA Spec Grav (test code = UA Spec Grav) 1.014 [facility]2014-03-09 11:31:57 Test Item Value Reference Range Interpretation Comments eGFR (test code = eGFR) 104 [facility]2014-03-09 11:31:57 Test Item Value Reference Range Interpretation Comments Calcium Lvl (test code = Calcium Lvl) 9.4 8.5-10.5 [facility]2014-03-09 11:31:57 Test Item Value Reference Range Interpretation Comments Chloride Lvl (test code = Chloride Lvl) 108 95-109 [facility]2014-03-09 11:31:57 Test Item Value Reference Range Interpretation Comments CO2 (test code = CO2) 23 24-32 [facility]2014-03-09 11:31:57 Test Item Value Reference Range Interpretation Comments AGAP (test code = AGAP) 17.2 10.0-20.0 [facility]2014-03-09 11:31:57 Test Item Value Reference Range Interpretation Comments Sodium Lvl (test code = Sodium Lvl) 144 135-145 [facility]2014-03-09 11:31:57 Test Item Value Reference Range Interpretation Comments Potassium Lvl (test code = Potassium 4.2 3.5-5.1 Lvl) [facility]2014-03-09 11:31:57 Test Item Value Reference Range Interpretation Comments Glucose Lvl (test code = Glucose Lvl) 139 70-99 [facility]2014-03-09 11:31:57 Test Item Value Reference Range Interpretation Comments BUN (test code = BUN) 10 7-22 [facility]2014-03-09 11:31:57 Test Item Value Reference Range Interpretation Comments Creatinine Lvl (test code = Creatinine 0.7 0.5-1.4 Lvl) [facility]2014-03-09 11:31:57 Test Item Value Reference Range Interpretation Comments Magnesium Lvl (test code = Magnesium 1.9 1.8-2.4 Lvl) [facility] [place][id number] 09:24:00 Test Item Value Reference Range Interpretation Comments Lymphocytes # (test code = Lymphocytes 3.0 1.0-5.5 #) [facility] StephenvilleKtnfdlcAHBUDYVWPC7279-65-09 09:24:00 Test Item Value Reference Range Interpretation Comments Eosinophils (test code = 2.7 See_Comment [A utomated message] The Eosinophils) system which ge nerated this result tra nsmitted reference range : <=4.0. The reference r celio was not used to int erpret this result as normal/abnormal . [facility] StephenvilleYfnlxeeGOCQWTVDCJ4278-14-84 09:24:00 Test Item Value Reference Range Interpretation Comments Basophils (test code = 0.5 See_Comment [Aut omated message] The Basophils) system which ge nerated this result tra nsmitted reference range : <=1.0. The reference r celio was not used to int erpret this result as normal/abnormal . [facility] StephenvilleTnjfsxuKLVLAIATYK5967-44-67 09:24:00 Test Item Value Reference Range Interpretation Comments Eosinophils # (test code 0.2 See_Comment [A utomated message] The = Eosinophils #) system whic h generated this result tra nsmitted reference range : <=0.5. The reference r celio was not used to int erpret this result as normal/abnormal . [facility] StephenvilleIehcuwtIQEOFQGTKS9039-92-57 09:24:00 Test Item Value Reference Range Interpretation Comments Monocytes # (test code 0.6 See_Comment [Aut omated message] The = Monocytes #) system which generated this result tra nsmitted reference range : <=0.8. The reference r celio was not used to int erpret this result as normal/abnormal . [facility] StephenvilleNgqerkiRBUGRJRYMK4881-69-12 09:24:00 Test Item Value Reference Range Interpretation Comments Segs-Bands # (test code = Segs-Bands #) 4.1 1.5-8.1 [facility] Stephenvil[id number] 09:24:00 Test Item Value Reference Range Interpretation Comments Lymphocytes (test code = Lymphocytes) 37.9 20.0-40.0 [facility] StephenvilleFcfptulRWEIHCZGVI9483-70-38 09:24:00 Test Item Value Reference Range Interpretation Comments Monocytes (test code = Monocytes) 6.9 2.0-12.0 [facility] [place]villeKevfcxuFTXYZUWTJY5886-50-06 09:24:00 Test Item Value Reference Range Interpretation Comments Segs (test code = Segs) 52.0 45.0-75.0 [facility] StephenvilleVkeboysXTZSJGYQBE0817-30-51 09:24:00 Test Item Value Reference Range Interpretation Comments MPV (test code = MPV) 8.5 7.4-10.4 [facility]UmcrppdBRUXBMQKSY8875-85-05 09:24:00 Test Item Value Reference Range Interpretation Comments Platelet (test code = Platelet) 275 133-450 [facility] CenterLeebxxfWIUWHODGRQ5954-75-11 09:24:00 Test Item Value Reference Range Interpretation Comments RBC X 10x6 (test code = RBC X 10x6) 4.93 4.20-5.40 [facility] StephenvilleJkbcdkjROQBTTSIBS0232-74-56 09:24:00 Test Item Value Reference Range Interpretation Comments WBC X 10x3 (test code = WBC X 10x3) 8.0 3.7-10.4 [facility] StephenvilleGxacrjrPYCBMDIAAV5255-75-49 09:24:00 Test Item Value Reference Range Interpretation Comments MCV (test code = MCV) 88.7 81.0-99.0 [facility] StephenvilleTjnuznlOBYAQDAKTJ0596-91-49 09:24:00 Test Item Value Reference Range Interpretation Comments Hgb (test code = Hgb) 15.0 12.0-16.0 [facility] StephenvilleZskzoenEQMQTRHKGZ6535-96-75 09:24:00 Test Item Value Reference Range Interpretation Comments Hct (test code = Hct) 43.7 36.0-48.0 [facility] CenterHssfygkMFKMBKWFCH7676-41-44 09:24:00 Test Item Value Reference Range Interpretation Comments MCH (test code = MCH) 30.4 pg 27.0-31.0 [facility] CenterCnlgvukOZJCXYZCUY1200-03-58 09:24:00 Test Item Value Reference Range Interpretation Comments MCHC (test code = MCHC) 34.3 32.0-36.0 [facility]villeHfnqgnjSJWBMWZQCN8290-13-22 09:24:00 Test Item Value Reference Range Interpretation Comments RDW (test code = RDW) 14.0 11.5-14.5 [id number] 09:24:00 Test Item Value Reference Range Interpretation Comments Phosphorus (test code = Phosphorus) 4.1 2.5-4.5 [facility] [id number] 09:24:00 Test Item Value Reference Range Interpretation Comments Magnesium Lvl (test code = Magnesium 1.9 1.8-2.4 Lvl) [facility]KpwrdamFYSXCCHZKXJS3991-78-77 09:24:00 Test Item Value Reference Range Interpretation Comments AGAP (test code = AGAP) 14.7 10.0-20.0 [facility] HospitalKppyefsHZLPVNZVQWLW8774-05-68 09:24:00 Test Item Value Reference Range Interpretation Comments eGFR (test code = eGFR) 104 [facility] HospitalPehmyiuTOOIDTXZDQHY5043-81-28 09:24:00 Test Item Value Reference Range Interpretation Comments Chloride Lvl (test code = Chloride Lvl) 106 95-109 [facility] HospitalAlbqtbyBDLJVBOPPBRY1424-00-38 09:24:00 Test Item Value Reference Range Interpretation Comments CO2 (test code = CO2) 25 24-32 [facility] HospitalIjkvmloTWWSQWDQDSNQ5775-87-94 09:24:00 Test Item Value Reference Range Interpretation Comments Potassium Lvl (test code = Potassium 3.7 3.5-5.1 Lvl) [facility] HospitalLprmvarYRXEHFDLQOCE5589-73-17 09:24:00 Test Item Value Reference Range Interpretation Comments Sodium Lvl (test code = Sodium Lvl) 142 135-145 [facility] HospitalSjoqzldXRBGHJIVMAKG8748-30-95 09:24:00 Test Item Value Reference Range Interpretation Comments Glucose Lvl (test code = Glucose Lvl) 142 70-99 [facility] HospitalQanzcenIPMYQWJRKGGJ4362-89-01 09:24:00 Test Item Value Reference Range Interpretation Comments Creatinine Lvl (test code = Creatinine 0.7 0.5-1.4 Lvl) [facility] HospitalCrocczuWRKXXDVAHDUK3383-05-03 09:24:00 Test Item Value Reference Range Interpretation Comments BUN (test code = BUN) 9 7-22 [facility]2014-03-07 07:23:00 Test Item Value Reference Range Interpretation Comments Globulin (test code = Globulin) 3.2 2.0-4.0 [facility]2014-03-07 07:23:00 Test Item Value Reference Range Interpretation Comments A/G Ratio (test code = A/G Ratio) 1.2 0.7-1.6 [facility]2014-03-07 07:23:00 Test Item Value Reference Range Interpretation Comments Alk Phos (test code = Alk Phos) 112 39-136 [facility]2014-03-07 07:23:00 Test Item Value Reference Range Interpretation Comments Albumin Lvl (test code = Albumin Lvl) 3.9 3.5-5.0 [facility]2014-03-07 07:23:00 Test Item Value Reference Range Interpretation Comments ALANINE AMINOTRANSFERASE 184 See_Comment [A utomated message] (test code = ALANINE The sys tem which AMINOTRANSFERASE) generated this result transmitted ref erence range: <=65. Th e reference range was not used to int erpret this result as normal/abnormal . [place] [id number] 07:23:00 Test Item Value Reference Range Interpretation Comments Total Protein (test code = Total 7.1 6.4-8.4 Protein) [facility]2014-03-07 07:23:00 Test Item Value Reference Range Interpretation Comments ASPARTATE TRANSAMINASE 76 See_Comment [Aut omated message] (test code = ASPARTATE The s ystem which TRANSAMINASE) generated this result transmitted ref erence range: <=37. Th e reference range was not used to interpr et this result as normal/abnormal . [facility]2014-03-07 07:23:00 Test Item Value Reference Range Interpretation Comments Bili Total (test code = Bili Total) 0.3 0.2-1.3 [facility]2014-03-07 07:23:00 Test Item Value Reference Range Interpretation Comments Bili Indirect (test 0.2 See_Comment [Automa blayne message] The code = Bili Indirect) system which generated this result tra nsmitted reference range : <=1.0. The reference r celio was not used to int erpret this result as normal/abnormal . [facility]2014-03-07 07:23:00 Test Item Value Reference Range Interpretation Comments Bili Direct (test code 0.1 See_Comment [Aut omated message] The = Bili Direct) system which generated this result tra nsmitted reference range : <=0.3. The reference r celio was not used to int erpret this result as dequan l/abnormal. [facility]2014-03-07 07:23:00 Test Item Value Reference Range Interpretation Comments Phosphorus (test code = Phosphorus) 4.6 2.5-4.5 [facility] StephenvilleYitnmkpYZETTRFJFK9699-74-91 07:23:00 Test Item Value Reference Range Interpretation Comments Eosinophils (test code = 1.7 See_Comment [A utomated message] The Eosinophils) system which ge nerated this result tra nsmitted reference range : <=4.0. The reference r celio was not used to int erpret this result as normal/abnormal . [facility] StephenvilleIblywwbERCFHVUVZB4585-79-63 07:23:00 Test Item Value Reference Range Interpretation Comments Basophils (test code = 0.7 See_Comment [Aut omated message] The Basophils) system which ge nerated this result tra nsmitted reference range : <=1.0. The reference r celio was not used to int erpret this result as normal/abnormal . [facility] StephenvilleRwekridOCLKTGMGJD1184-27-50 07:23:00 Test Item Value Reference Range Interpretation Comments Lymphocytes # (test code = Lymphocytes 3.2 1.0-5.5 #) [facility] StephenvilleTvekgouRDESXMUMSW1724-38-41 07:23:00 Test Item Value Reference Range Interpretation Comments Monocytes # (test code 0.6 See_Comment [Aut omated message] The = Monocytes #) system which generated this result tra nsmitted reference range : <=0.8. The reference r celio was not used to int erpret this result as normal/abnormal . [facility] StephenvilleEykznhoINVWKALKWJ6233-69-71 07:23:00 Test Item Value Reference Range Interpretation Comments Eosinophils # (test code 0.1 See_Comment [A utomated message] The = Eosinophils #) system whic h generated this result tra nsmitted reference range : <=0.5. The reference r celio was not used to int erpret this result as normal/abnormal . [facility] StephenvilleAoeueijIQAAMXADCW2079-96-67 07:23:00 Test Item Value Reference Range Interpretation Comments Basophils # (test code 0.1 See_Comment [Aut omated message] The = Basophils #) system which generated this result tra nsmitted reference range : <=0.2. The reference r celio was not used to int erpret this result as normal/abnormal . [facility] StephenvilleGjeumzuFQRZFYOHUE6002-58-20 07:23:00 Test Item Value Reference Range Interpretation Comments Segs-Bands # (test code = Segs-Bands #) 4.2 1.5-8.1 [facility] StephenvilleUqiojpiMLHPUPJSYX1450-73-98 07:23:00 Test Item Value Reference Range Interpretation Comments Lymphocytes (test code = Lymphocytes) 39.4 20.0-40.0 [facility] StephenvilleNamzowaOWWDSKJAUM5473-29-86 07:23:00 Test Item Value Reference Range Interpretation Comments Monocytes (test code = Monocytes) 6.9 2.0-12.0 [facility] StephenvilleWhrgqnsNETLAGASUX2710-14-47 07:23:00 Test Item Value Reference Range Interpretation Comments Segs (test code = Segs) 51.3 45.0-75.0 [facility] StephenvilleStbfmztDRUSFZDUZL8634-15-60 07:23:00 Test Item Value Reference Range Interpretation Comments MCV (test code = MCV) 88.1 81.0-99.0 [facility] StephenvilleDqkydwvHCNZUUVCMB6459-73-71 07:23:00 Test Item Value Reference Range Interpretation Comments MCH (test code = MCH) 30.2 pg 27.0-31.0 [facility] StephenvilleFtgmuhkWWAFVQIMYU7462-50-22 07:23:00 Test Item Value Reference Range Interpretation Comments MCHC (test code = MCHC) 34.3 32.0-36.0 [facility] StephenvilleZytmslzWDIQGHQDRZ7209-24-31 07:23:00 Test Item Value Reference Range Interpretation Comments RDW (test code = RDW) 13.7 11.5-14.5 [facility] StephenvilleGpgiiudCDFWMUXPYL1409-63-34 07:23:00 Test Item Value Reference Range Interpretation Comments Platelet (test code = Platelet) 303 133-450 [facility] StephenvillePboxbclZJDCECFCEY9030-35-63 07:23:00 Test Item Value Reference Range Interpretation Comments MPV (test code = MPV) 8.6 7.4-10.4 [facility] StephenvilleVspqarzSVYEFJHIED3298-16-11 07:23:00 Test Item Value Reference Range Interpretation Comments WBC X 10x3 (test code = WBC X 10x3) 8.2 3.7-10.4 [facility] StephenvilleIojatesCQLRHMZGFB7905-71-80 07:23:00 Test Item Value Reference Range Interpretation Comments RBC X 10x6 (test code = RBC X 10x6) 4.79 4.20-5.40 [facility] StephenvilleAiwlumbSIOCALRUJC2125-59-13 07:23:00 Test Item Value Reference Range Interpretation Comments Hgb (test code = Hgb) 14.5 12.0-16.0 [facility] StephenvilleGfgemrvCROMLTBTPP1416-41-46 07:23:00 Test Item Value Reference Range Interpretation Comments Hct (test code = Hct) 42.2 36.0-48.0 [facility] StephenvilleAixsreoTCJFNZMMNL3052-28-24 07:23:00 Test Item Value Reference Range Interpretation Comments INR (test code = INR) 1.04 0.85-1.17 [facility] StephenvilleJbuksjfSNCMORJZPW4018-87-75 07:23:00 Test Item Value Reference Range Interpretation Comments aPTT (test code = aPTT) 30.3 s 22.9-35.8 [facility] StephenvilleUcizjyhGWBFBUUNRC0269-32-95 07:23:00 Test Item Value Reference Range Interpretation Comments PROTIME (test code = PROTIME) 13.5 s 12.0-14.7 [facility]QvlbwkfTHAPWRRZYV0041-03-24 07:23:00 Test Item Value Reference Range Interpretation Comments Hep B Core IgM (test Negative *NA*(11/27/2013 code = Hep B Core 01:23:00 IgM) [facility]) [facility] HospitalVfmesjtMJLWZKHGOC2793-03-19 07:23:00 Test Item Value Reference Range Interpretation Comments Hep C Ab (test code = Negative *NA*(11/27/2013 Hep C Ab) 01:23:00 [facility]/[place]) [facility] HospitalCbgamdaZPDKUCELXX3930-58-81 07:23:00 Test Item Value Reference Range Interpretation Comments Hep A IgM (test code Negative *NA*(11/27/2013 = Hep A IgM) 01:23:00 [facility]/[place]) [facility] HospitalEvwsijqBLZEIORCZB2786-52-39 07:23:00 Test Item Value Reference Range Interpretation Comments Hep Bs Ag (test code Negative *NA*(11/27/2013 = Hep Bs Ag) 01:23:00 [facility]DbntldzWSKERL6027-71-21 07:23:00 Test Item Value Reference Range Interpretation Comments VLDL (test code = VLDL) 27 [facility]AdsvcfkFCJKJW2984-54-88 07:23:00 Test Item Value Reference Range Interpretation Comments LDL (Calculated) (test code = LDL 127 (Calculated)) [facility] HospitalLcqoxyoIKWIRS0772-08-74 07:23:00 Test Item Value Reference Range Interpretation Comments HDL (test code = HDL) 50 [facility] HospitalSmiydqjXOCOQJ3580-24-38 07:23:00 Test Item Value Reference Range Interpretation Comments Trig (test code = Trig) 134 [facility] HospitalMlslmxgRGNQBP7239-96-76 07:23:00 Test Item Value Reference Range Interpretation Comments Chol (test code = Chol) 204 [facility]UzgzsnqUUCBPR1259-70-65 07:23:00 Test Item Value Reference Range Interpretation Comments CHD Risk (test code = CHD Risk) 4.08 3.90-5.80 [facility]2014-03-06 17:00:00 Test Item Value Reference Range Interpretation Comments ALANINE AMINOTRANSFERASE 204 See_Comment [A utomated message] (test code = ALANINE The sys tem which AMINOTRANSFERASE) generated this result transmitted ref erence range: <=65. Th e reference range was not used to int erpret this result as normal/abnormal . [facility] [id number] 17:00:00 Test Item Value Reference Range Interpretation Comments ASPARTATE TRANSAMINASE 70 See_Comment [Aut omated message] (test code = ASPARTATE The s ystem which TRANSAMINASE) generated this result transmitted ref erence range: <=37. Th e reference range was not used to interpr et this result as normal/abnormal . [facility] [id number] 17:00:00 Test Item Value Reference Range Interpretation Comments Alk Phos (test code = Alk Phos) 109 39-136 [facility] [id number] 17:00:00 Test Item Value Reference Range Interpretation Comments Albumin Lvl (test code = Albumin Lvl) 3.6 3.5-5.0 [facility] [id number] 17:00:00 Test Item Value Reference Range Interpretation Comments Bili Total (test code = Bili Total) 0.4 0.2-1.3 [facility]2014-03-06 17:00:00 Test Item Value Reference Range Interpretation Comments Bili Direct (test code 0.1 See_Comment [Aut omated message] The = Bili Direct) system which generated this result tra nsmitted reference range : <=0.3. The reference r celio was not used to int erpret this result as dequan l/abnormal. [facility] [id number] 17:00:00 Test Item Value Reference Range Interpretation Comments Total Protein (test code = Total 6.9 6.4-8.4 Protein) [facility]2014-03-06 17:00:00 Test Item Value Reference Range Interpretation Comments A/G Ratio (test code = A/G Ratio) 1.1 0.7-1.6 [facility]2014-03-06 17:00:00 Test Item Value Reference Range Interpretation Comments Bili Indirect (test 0.3 See_Comment [Automa blayne message] The code = Bili Indirect) system which generated this result tra nsmitted reference range : <=1.0. The reference r celio was not used to int erpret this result as normal/abnormal . [facility]2014-03-06 17:00:00 Test Item Value Reference Range Interpretation Comments Globulin (test code = Globulin) 3.3 2.0-4.0 [facility]2014-03-06 17:00:00 Test Item Value Reference Range Interpretation Comments ALANINE AMINOTRANSFERASE 204 See_Comment [A utomated message] (test code = ALANINE The sys tem which AMINOTRANSFERASE) generated this result transmitted ref erence range: <=65. Th e reference range was not used to int erpret this result as normal/abnormal . [facility]2014-03-06 17:00:00 Test Item Value Reference Range Interpretation Comments Albumin Lvl (test code = Albumin Lvl) 3.6 3.5-5.0 [place] [id number] 17:00:00 Test Item Value Reference Range Interpretation Comments Alk Phos (test code = Alk Phos) 109 39-136 [facility]2014-03-06 17:00:00 Test Item Value Reference Range Interpretation Comments Bili Total (test code = Bili Total) 0.4 0.2-1.3 [facility]2014-03-06 17:00:00 Test Item Value Reference Range Interpretation Comments ASPARTATE TRANSAMINASE 70 See_Comment [Aut omated message] (test code = ASPARTATE The s ystem which TRANSAMINASE) generated this result transmitted ref erence range: <=37. Th e reference range was not used to interpr et this result as normal/abnormal . [facility]2014-03-06 17:00:00 Test Item Value Reference Range Interpretation Comments Total Protein (test code = Total 6.9 6.4-8.4 Protein) [facility]2014-03-06 17:00:00 Test Item Value Reference Range Interpretation Comments B/C Ratio (test code = B/C Ratio) 13 6-25 [place] [id number] 17:00:00 Test Item Value Reference Range Interpretation Comments Globulin (test code = Globulin) 3.3 2.0-4.0 [facility] [id number] 17:00:00 Test Item Value Reference Range Interpretation Comments A/G Ratio (test code = A/G Ratio) 1.1 0.7-1.6 [facility] [id number] 17:00:00 Test Item Value Reference Range Interpretation Comments UDS Note (test code = See Note UDS Note) 7*NA*(11/26/2013 11:00:00 [place]) [facility] [id number] 17:00:00 Test Item Value Reference Range Interpretation Comments U Opiate Scr (test Negative code = U Opiate Scr) *NA*(11/26/2013 11:00:00 [place] [id number] 17:00:00 Test Item Value Reference Range Interpretation Comments U Phencyc Scr (test Negative code = U Phencyc Scr) *NA*(11/26/2013 11:00:00 [place] [id number] 17:00:00 Test Item Value Reference Range Interpretation Comments U Cocaine Scr (test Negative code = U Cocaine Scr) *NA*(11/26/2013 11:00:00 [place]) [facility] [id number] 17:00:00 Test Item Value Reference Range Interpretation Comments U Cannab Scr (test Negative code = U Cannab Scr) *NA*(11/26/2013 11:00:00 [place]) [facility] [id number] 17:00:00 Test Item Value Reference Range Interpretation Comments U Benzodia Scr (test Negative code = U Benzodia Scr) *NA*(11/26/2013 11:00:00 [place]) [facility] [id number] 17:00:00 Test Item Value Reference Range Interpretation Comments U Toshia Scr (test code Negative *NA*(11/26/2013 = U Toshia Scr) 11:00:00 [place]) [facility] [id number] 17:00:00 Test Item Value Reference Range Interpretation Comments U Amph Scr (test code Negative *NA*(11/26/2013 = U Amph Scr) 11:00:00 [facility]/[place]) [facility] [id number] 17:00:00 Test Item Value Reference Range Interpretation Comments Hgb A1C (test code = Hgb A1C) 10.4 [facility] AND [id number] 17:00:00 Test Item Value Reference Range Interpretation Comments UA Urobilinogen (test code = UA <=1.0 mg/dL 0.1-1.0 Urobilinogen) [facility] AND [id number] 17:00:00 Test Item Value Reference Range Interpretation Comments UA RBC (test code = 6 See_Comment [Automa blayne message] The UA RBC) system which ge nerated this result transmit blayne reference range : <=2. The reference range was not used to interpr et this result as dequan l/abnormal. [facility] AND [id number] 17:00:00 Test Item Value Reference Range Interpretation Comments UA Bacteria (test code = UA Occasional /HPF Bacteria) [facility] AND [id number] 17:00:00 Test Item Value Reference Range Interpretation Comments UA Ketones (test code = UA Negative mg/dL Ketones) [facility] AND [id number] 17:00:00 Test Item Value Reference Range Interpretation Comments UA Turbidity (test code = Clear (11/26/2013 UA Turbidity) 11:00:00 [facility]/[place]) [facility] AND [id number] 17:00:00 Test Item Value Reference Range Interpretation Comments UA Spec Grav (test code = UA Spec Grav) 1.017 [facility] AND [id number] 17:00:00 Test Item Value Reference Range Interpretation Comments UA pH (test code = UA pH) 7.5 5.0-8.0 [facility] AND [id number] 17:00:00 Test Item Value Reference Range Interpretation Comments UA Protein (test code = UA Negative mg/dL Protein) [facility] AND [id number] 17:00:00 Test Item Value Reference Range Interpretation Comments UA Glucose (test code = UA >=1000 mg/dL Glucose) [facility] AND [id number] 17:00:00 Test Item Value Reference Range Interpretation Comments UA Sq Epi (test code = UA Sq Occasional /LPF Epi) [facility] [id number] 17:00:00 Test Item Value Reference Range Interpretation Comments UA WBC (test code = 2 See_Comment [Automa blayne message] The UA WBC) system which ge nerated this result transmit blayne reference range : <=5. The reference range was not used to interpr et this result as dequan l/abnormal. [facility] [id number] 17:00:00 Test Item Value Reference Range Interpretation Comments UA Bili (test code = Negative *NA*(11/26/2013 UA Bili) 11:00:00 [place]) [facility] [id number] 17:00:00 Test Item Value Reference Range Interpretation Comments UA Blood (test code = Trace *ABN*(11/26/2013 UA Blood) 11:00:00 [place]) [facility] [id number] 17:00:00 Test Item Value Reference Range Interpretation Comments UA Nitrite (test code Negative (11/26/2013 = UA Nitrite) 11:00:00 [place]) [facility] [id number] 17:00:00 Test Item Value Reference Range Interpretation Comments UA Leuk Est (test Negative (11/26/2013 code = UA Leuk Est) 11:00:00 [place]) [facility] [id number] 17:00:00 Test Item Value Reference Range Interpretation Comments UA Color (test code = Light Yellow UA Color) *NA*(11/26/2013 11:00:00 [place]) Trevor Duke Notes Date/Time Note Provider Source 2023-05-07 Formatting of this note is different from the or iginal. Jaimie 11:45:28-00:00 [facility] Patient presents with Follow-up 4 week follow up // MR brain W/WO Results Height: 4'10 per pt Elena Barnett CMA II 2023-04-10 Formatting of this note might be differe nt from the original. Alicia Etienne 11:39:30-00:00 Patient is here for f/u.l Medications reconciled . VSS> Clinic Electronically signed by Alicia Navarrete at 2022 12:07 PM CDT 2023-04-04 Formatting of this note is different from the or iginal. Jaimie 08:17:58-00:00 Chief Complaint Clinic Patient presents with Stroke Juan Jose Reddy Electronically signed by Juan Jose Reddy at 2022 8:18 AM CDT
[2023-05-22 15:26] LABS: Absolute Lymphocytes (CBC) 2.7 K/uL (0.7-4.9); Hematocrit 37.9 % (36.0-45.0); Lymphocytes % 36.7 % (15.3-44.8); MCV 91.6 fL (80-100); MPV 7.5 fL (7.6-11.3); Platelets 287 thou/uL (152-406); RBC Red Blood Cell Count 4.14 M/uL (3.86-4.86)
--- NOTE | 2023-05-22 15:36 | RAD REPORT ---
EXAM DESCRIPTION: CT - Thorax Wo Con - 05/22/2023 3:07 pm CLINICAL HISTORY: sob/ aspiration COMPARISON: none TECHNIQUE: Computed axial tomography of the chest was obtained. Contrast was not requested. All CT scans are performed using dose optimization technique as appropriate and may include automated exposure control or mA/KV adjustment according to patient size. FINDINGS: The evaluation of mediastinum, giovanny and vessels is limited secondary to lack of IV contras t administration. The lungs are clear. No mediastinal or hilar lymphadenopathy is seen. A pleural effusion is not present. No pericardial effusion Coronary arterial calcifications IMPRESSION: No acute abnormality is displayed
[2023-05-22 15:45] LABS: ALT/SGPT 64 U/L (13-56); AST/SGOT 32 U/L (15-37); Alkaline Phosphatase 56 U/L (45-117); BUN Blood Urea Nitrogen 12 mg/dL (7-18); Bicarbonate 25 mEq/L (21-32); Bilirubin Total 0.2 mg/dL (0.2-1.0); Glomerular Filtration Rate 80 ml/min (=/>90); Glucose Level 92 mg/dL (74-106); Potassium 3.8 mEq/L (3.5-5.1); Protein, Total 7.3 g/dL (6.4-8.2); Sodium Level 141 mEq/L (136-145); Troponin High Sensitivity 7.8 pg/mL (<58.9)
[2023-05-22 15:50] LABS: Bilirubin Direct < 0.1 mg/dL (0-0.2); Bilirubin Indirect, Calculated ND mg/dL (0.2-0.8)
--- NOTE | 2023-05-22 16:17 | ER ---
Nurse's Notes [facility] Name: Amparo Franco Age: 58 yrs Sex: Female : 1965 Arrival Date: 05/22/2023 Time: 14:28 Bed 7 Private MD: Fly Burt Diagnosis: Dyspnea Presentation: 05/22 14:41 Chief complaint: Patient states: she had a bone scan on 05/20 of which they used dye. ap3 since then the patient has experienced pain down her spine, and then nausea/vomiting. after a while of the nausea/vomiting the patient started having chest discomfort. patient called her pcp, who advised she come to the ED for evaluation of possible aspiration. Coronavirus screen: At this time, the client does not indicate any symptoms associated with coronavirus-19. Ebola Screen: No symptoms or risks identified at this time. Initial Sepsis Screen: Does the patient meet any 2 criteria? No. Patient's initial sepsis screen is negative. Does the patient have a suspected source of infection? No. Patient's initial sepsis screen is negative. Risk Assessment: Do you want to hurt yourself or someone else? Patient reports no desire to harm self or others. Onset of symptoms was May 20, 2023. 14:41 Method Of Arrival: Wheelchair ap3 14:41 Acuity: HARPREET 3 ap3 Triage Assessment: 14:44 General: Appears uncomfortable, Behavior is calm, cooperative, appropriate for age. ap3 Pain: Complains of pain in thoracic area, lumbar area and sacrum. Neuro: Level of Consciousness is awake, alert, obeys commands, Oriented to person, place, time, situation, Appropriate for age. Cardiovascular: Patient's skin is warm and dry. Respiratory: Airway is patent Respiratory effort is even, unlabored, Respiratory pattern is regular, symmetrical. GI: Reports nausea, vomiting. Historical: - Allergies: 14:43 Advil; ap3 14:43 Cipro; ap3 14:43 Morphine; ap3 14:43 tramadol; ap3 15:00 IV contrast (Anaphylaxis); aa5 - PMHx: 14:43 CVA; Depression; Diabetes - NIDDM; Hyperlipidemia; Hypertension; ap3 15:00 Right sided weakness from CVA; aa5 - PSHx: 14:43 Cholecystectomy; ap3 - Immunization history:: Client reports receiving the 2nd dose of the Covid vaccine. - Social history:: Smoking status: Patient denies any tobacco usage or history of. Screenin:45 Abuse screen: Denies threats or abuse. Nutritional screening: No deficits noted. ap3 Tuberculosis screening: No symptoms or risk factors identified. 14:45 [facility] ED Fall Risk Assessment (Adult) History of falling in the last 3 months, rs5 including since admission No falls in past 3 months (0 pts) Confusion or Disorientation No (0 pts) Intoxicated or Sedated No (0 pts) Impaired Gait Yes (1 pt) Mobility Assist Device Used Yes (1 pt) Altered Elimination No (0 pt) Score/Fall Risk Level 0 - 2 = Low Risk Oriented to surroundings, Maintained a safe environment, Educated pt \T\ family on fall prevention, incl call for assistance when getting out of bed, Assessed \T\ reinforced patient's understanding of fall precautions. Assessment: 14:55 General: Appears comfortable, Behavior is calm, cooperative. Pain: Complains of pain in aa5 back of head, left scapular area and right scapular area Pain currently is 6 out of 10 on a pain scale. Quality of pain is described as aching, pressure, Is continuous. 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 Cardiovascular: Heart tones S1 S2 present Rhythm is regular. Respiratory: Airway is patent Respiratory effort is even, unlabored, Respiratory pattern is regular, symmetrical. GI: Abdomen is round non-distended, Bowel sounds present X 4 quads. Abd is soft and non tender X 4 quads. Patient currently denies nausea. : No signs and/or symptoms were reported regarding the genitourinary system. EENT: No signs and/or symptoms were reported regarding the EENT system. Derm: Skin is pink, warm \T\ dry. Musculoskeletal: Reports being ambulatory with walker. 15:03 Reassessment: Pt to CT . aa5 15:15 Reassessment: Patient is alert, oriented x 3, equal unlabored respirations, skin aa5 warm/dry/pink. 15:25 Reassessment: Pt states she wishes not to be stuck again for IV access until absolutely aa5 necessary. . 16:20 Reassessment: Patient and/or family updated on plan of care and expected duration. Pain rs5 level reassessed. Patient is alert, oriented x 3, equal unlabored respirations, skin warm/dry/pink. Vital Signs: 14:41 BP 114 / 77; Pulse 80; Resp 18; Temp 97.9; Pulse Ox 98% ; Weight 73.03 kg; ap3 ED Course: 14:30 Patient arrived in ED. rg4 14:30 Fly Burt DO is Private Physician. rg4 14:31 Emani Toledo MD is Attending Physician. sp3 14:43 Triage completed. ap3 14:45 Arm band placed on right wrist. ap3 14:55 Patient has correct armband on for positive identification. Placed in gown. Bed in low aa5 position. Call light in reach. Side rails up X2. Client placed on continuous cardiac and pulse oximetry monitoring. NIBP monitoring applied. 14:59 Sammie Armendariz, RN is Primary Nurse. aa5 15:08 CT Chest Wo Con In Process Unspecified. EDMS 15:15 Initial lab(s) drawn, by me, sent to lab. Missed attempt(s): 22 gauge in left forearm. aa5 16:32 No provider procedures requiring assistance completed. rs5 16:32 Patient did not have IV access during this emergency room visit. aa5 Administered Medications: No medications were administered Medication: 14:45 VIS not applicable for this client. ap3 Outcome: 16:16 Discharge ordered by . sp3 16:32 Patient left the ED. rs5 16:32 Discharged to home via wheelchair, with family. rs5 16:32 Condition: stable 16:32 Discharge instructions given to patient, family, Instructed on discharge instructions, follow up and referral plans. Demonstrated understanding of instructions, follow-up care. Signatures: Dispatcher [employer] EDMS Sammie Armendariz, JANET GONZALES aa5 Birgit Valles rg4 Pooja Rwoe RN RN ap3 Emani Toledo MD MD sp3 Abebe Tolentino RN RN rs5 Corrections: (The following items were deleted from the chart) 15:00 14:43 Allergies: IV contrast; ap3 aa5
--- NOTE | 2023-05-22 16:17 | EDPHYS ---
Physician Documentation [facility] Name: Amparo Franco Age: 58 yrs Sex: Female : 1965 Arrival Date: 05/22/2023 Time: 14:28 Bed 7 Private MD: Fly Burt ED Physician Emani Toledo HPI: 05/22 15:13 This 58 yrs old Female presents to ER via Wheelchair with complaints of Cough sp3 and pain while breathing. 15:13 58-year-old female with history of diabetes, hyperlipidemia, hypertension, prior CVA sp3 presents to the ED referred by her PCP . Presents for evaluation of possible aspiration subsequent to having bone density scan and IV contrast. Patient has had allergy type symptoms subsequent to that has had a persistent cough for the last 3 days subsequent to having that scan. Patient was sent for pulmonary imaging and evaluation. Patient has no other complaints including headache, neck pain, facial pain, URI symptoms other than the cough, fever, back pain, abdominal pain, vomiting or diarrhea (patient does endorse mild nausea), syncope, near syncope, neurological symptoms, known sick contacts, travel history, or any other signs or symptoms on ROS at this time.. Historical: - Allergies: 14:43 Advil; ap3 14:43 Cipro; ap3 14:43 Morphine; ap3 14:43 tramadol; ap3 15:00 IV contrast (Anaphylaxis); aa5 - PMHx: 14:43 CVA; Depression; Diabetes - NIDDM; Hyperlipidemia; Hypertension; ap3 15:00 Right sided weakness from CVA; aa5 - PSHx: 14:43 Cholecystectomy; ap3 - Immunization history:: Client reports receiving the 2nd dose of the Covid vaccine. - Social history:: Smoking status: Patient denies any tobacco usage or history of. ROS: 15:15 Constitutional: Negative for fever, chills, and weight loss, Eyes: Negative for injury, sp3 pain, redness, and discharge, Neck: Negative for injury, pain, and swelling, Cardiovascular: Negative for chest pain, palpitations, and edema, Abdomen/GI: Negative for abdominal pain, nausea, vomiting, diarrhea, and constipation, Back: Negative for injury and pain, MS/Extremity: Negative for injury and deformity, Skin: Negative for injury, rash, and discoloration, Neuro: Negative for headache, weakness, numbness, tingling, and seizure, Psych: Negative for depression, anxiety, suicide ideation, homicidal ideation, and hallucinations, Allergy/Immunology: Negative for hives, rash, and allergies, Endocrine: Negative for neck swelling, polydipsia, polyuria, polyphagia, and marked weight changes. 15:15 All other systems are negative. Exam: 15:15 Constitutional: This is a well developed, well nourished patient who is awake, alert, sp3 and in no acute distress. Head/Face: Normocephalic, atraumatic. Eyes: Pupils equal round and reactive to light, extra-ocular motions intact. Lids and lashes normal. Conjunctiva and sclera are non-icteric and not injected. Cornea within normal limits. Periorbital areas with no swelling, redness, or edema. ENT: Nares patent. No nasal discharge, no septal abnormalities noted. External auditory canals are clear. Oropharynx with no redness, swelling, or masses, exudates, or evidence of obstruction, uvula midline. Mucous membranes moist. Neck: Trachea midline, no thyromegaly or masses palpated, and no cervical lymphadenopathy. Supple, full range of motion without nuchal rigidity, or vertebral point tenderness. No Meningismus. Chest/axilla: Normal chest wall appearance and motion. Nontender with no deformity. No lesions are appreciated. Cardiovascular: Regular rate and rhythm with a normal S1 and S2. No gallops, murmurs, or rubs. Normal PMI, no JVD. No pulse deficits. Respiratory: Lungs have equal breath sounds bilaterally, clear to auscultation and percussion. No rales, rhonchi or wheezes noted. No increased work of breathing, no retractions or nasal flaring. Abdomen/GI: Soft, non-tender, with normal bowel sounds. No distension or tympany. No guarding or rebound. No evidence of tenderness throughout. Back: No spinal tenderness. No costovertebral tenderness. Full range of motion. Skin: Warm, dry with normal turgor. Normal color with no rashes, no lesions, and no evidence of cellulitis. MS/ Extremity: Pulses equal, no cyanosis. Neurovascular intact. Full, normal range of motion. Neuro: Awake and alert, GCS 15, oriented to person, place, time, and situation. Cranial nerves II-XII grossly intact. Motor strength 5/5 in all extremities. Sensory grossly intact. Cerebellar exam normal. Normal gait. Psych: Awake, alert, with orientation to person, place and time. Behavior, mood, and affect are within normal limits. 15:15 ECG was reviewed by the Attending Physician. 15:25 EKG demonstrates normal sinus rhythm at 75 bpm with normal intervals, normal QRS, sp3 normal axis, normal ST/T-segment's without evidence of acute ischemia. Vital Signs: 14:41 BP 114 / 77; Pulse 80; Resp 18; Temp 97.9; Pulse Ox 98% ; Weight 73.03 kg; ap3 MDM: 14:48 Patient medically screened. sp3 15:17 Data reviewed: vital signs, nurses notes. ED course: 58-year-old female with PMH above sp3 now presents for evaluation for possible aspiration. Will obtain CT scan of the chest noncontrast and routine laboratory values and EKG. If work-up is negative we will safely discharge patient home otherwise will start antibiotics as indicated with further follow-up by her PCP.. 16:14 ED course: Laboratory values negative and CT is clean. We will safely discharge patient sp3 home with follow-up to PCP for any further work-up. Antibiotics not indicated at this time. There is no chemical pneumonitis or signs of infection.. 05/22 14:53 Order name: Basic Metabolic Panel; Complete Time: 15:51 sp3 05/22 14:53 Order name: CBC with Diff; Complete Time: 15:43 sp3 05/22 14:53 Order name: LFT's; Complete Time: 15:51 sp3 05/22 14:53 Order name: Troponin HS; Complete Time: 15:51 sp3 05/22 14:53 Order name: CT Chest Wo Con; Complete Time: 15:43 sp3 05/22 14:53 Order name: EKG; Complete Time: 14:54 sp3 05/22 14:53 Order name: EKG - Nurse/Tech; Complete Time: 15:22 sp3 05/22 14:53 Order name: Labs collected and sent; Complete Time: 15:22 sp3 Administered Medications: No medications were administered Disposition Summary: 05/22/23 16:16 Discharge Ordered Location: Home sp3 Condition: Stable sp3 Diagnosis - Dyspnea sp3 Followup: sp3 - With: Private Physician - When: Upon discharge from the Emergency Department - Reason: Continuance of care Discharge Instructions: - Discharge Summary Sheet sp3 - Cough, Adult sp3 Forms: - Medication Reconciliation Form sp3 - Thank You Letter sp3 - Antibiotic Education sp3 - Prescription Opioid Use sp3 - Patient Portal Instructions sp3 - Leadership Thank You Letter sp3 Signatures: Dispatcher [employer] Sammie Chen RN RN aa5 Pooja Rowe RN RN ap3 Emani Toledo MD MD sp3 Corrections: (The following items were deleted from the chart) 15:00 14:43 Allergies: IV contrast; ap3 aa5 16:21 14:53 IV Saline Lock ordered. sp3 aa5
[2023-05-22 16:37] VITALS: BP 114/77; TEMP 97.9; O2SAT 98
--- NOTE | 2023-05-22 17:51 | EKG ---
Test Date: 2023-05-22 Test Time: 15:20:47 Director Of Assessing: ROYCE MEASUREMENT RESULTS: Intervals: Rate: 75 [place]: 148 QRSD: 76 QT: 368 QTc: 410 [place]: P: 79 [place]: 148 QRS: 27 T: 60 INTERPRETIVE STATEMENTS: Normal sinus rhythm Normal ECG Compared to ECG 02/04/2023 18:52:17 Sinus tachycardia no longer present Electronically Signed On 05-22-23 17:50:16 CDT by Sascha Mahmood
== END 2023-05-22 16:32 | disposition home or self-care (01) ==
LOC: ER 14:28
DX: R06.00 Dyspnea, unspecified (principal); R05.9 Cough, unspecified; I10 Essential (primary) hypertension; Z86.73 Personal history of transient ischemic attack (TIA), and cerebral infarction without residual deficits; Z88.1 Allergy status to other antibiotic agents; Z88.5 Allergy status to narcotic agent; Z88.6 Allergy status to analgesic agent; Z91.041 Radiographic dye allergy status
CPT/HCPCS: 36415; 71250; 80048; 80076; 84484; 85025; 93005

== ENCOUNTER 2025-01-25 00:39 | Observation (INO) | payer OTHER ==
[2025-01-25] MEDS ORDERED: MAGNES/ALUMIN/SIMET 30ML UCUP ONE (01:38)
[2025-01-25] MEDS ORDERED: FAMOTIDINE 20 MG/2 ML VIAL IV ONE (01:38)
[2025-01-25] MEDS ORDERED: LIDOCAINE VISCOUS 2% 10ML ORAL SOLN ONE (01:39)
[2025-01-25] MEDS ORDERED: NA CHLORIDE 0.9% 1,000 ML ONE ×2 (01:39→05:20)
[2025-01-25 01:49] LABS: Absolute Basophils 0.1 K/uL (0-0.5); Absolute Eosinophils 0.2 K/uL (0-0.5); Absolute Lymphocytes (CBC) 3.9 K/uL (0.7-4.9); Absolute Monocytes 0.6 K/uL (0.1-1.3); Absolute Neutrophil 3.8 K/uL (1.8-8.0); Basophils % 0.9 % (0-1.3); Hematocrit 41.7 % (36.0-45.0); Hemoglobin 14.2 g/dL (12.0-15.0); Lymphocytes % 46.2 % (15.3-44.8); MCHC 34.1 g/dL (32.0-36.0); MCV 90.9 fL (80-100); MPV 8.1 fL (7.6-11.3); Monocytes % 6.9 % (3.3-12.3); Nucleated Red Blood Cells % 0.1 % (0-0); Platelets 359 thou/uL (152-406); RBC Red Blood Cell Count 4.59 M/uL (3.86-4.86); Red Cell Distribution Width 13.8 % (12.1-15.2)
[2025-01-25 02:05] LABS: Albumin 3.7 g/dL (3.4-5.0); Albumin/Globulin Ratio 1.1 (1.1-1.8); Bilirubin Total 0.3 mg/dL (0.2-1.0); Globulin 3.5 g/dL (2.3-3.5); Protein, Total 7.2 g/dL (6.4-8.2); Troponin High Sensitivity 3.1 pg/mL (<58.9)
--- NOTE | 2025-01-25 02:57 | RAD REPORT ---
EXAM: CT Head Without Intravenous Contrast CLINICAL HISTORY: The patient is 59 years old and is Female; NUMBNESS TECHNIQUE: Axial computed tomography images of the head/brain without intravenous contrast. Sagittal and cor onal reformatted images were created and reviewed. This CT exam was performed using one or more of the following dose reduction techniques: automated exposure control, adjustment of the mA and/or kV according to patient size, and/or use of iterative reconstruction technique. COMPARISON: CT of the head February 04, 2023 FINDINGS: BRAIN: Unremarkable. The lira-white matter differentiation is preserved . No hemorrhage. No s ignificant white matter disease. No edema. No extra-axial fluid collections. VENTRICLES: Unremarkable. No ventriculomegaly. BONES/JOINTS: No acute fracture. SOFT TISSUES: Unremarkable. SINUSES: Unremarkable as visualized. No acute sinusitis. MASTOID AIR CELLS: Unremarkable as visualized. No mastoid effusion. ORBITS: Unremarkable as visualized. IMPRESSION: No acute intracranial findings. Electronically signed by: Zaida Guerin MD 01/25/2025 02:54 AM CDT RP Due to temporary technical issues with the PACS/myBestHelper reporting system, reports are being oracio d by the in-house radiologist without review as a courtesy to ensure prompt reporting the interpreting radiologist is fully responsible for the content of the report. Transcribed Date/Time: 01/25/2025 2:57 AM
--- NOTE | 2025-01-25 02:58 | RAD REPORT ---
EXAM: CT Abdomen and Pelvis Without Intravenous Contrast CLINICAL HISTORY: The patient is 59 years old and is Female; ABD PAIN TECHNIQUE: Axial computed tomography images of the abdomen and pelvis without intravenous contrast. Sagittal and coronal reformatted images were created and reviewed. This CT exam was performed using one or more of the following dose reduction techniques: automated exposure control, adjustment of the m A and/or kV according to patient size, and/or use of iterative reconstruction technique. COMPARISON: No relevant prior studies available. FINDINGS: LUNG BASES: Unremarkable. No mass. No consolidation. ABDOMEN: LIVER: Homogeneous without focal mass. GALLBLADDER AND BILE DUCTS: Surgical clips are present in the right upper quadrant, consistent wi th previous cholecystectomy. PANCREAS: Unremarkable. No ductal dilation. SPLEEN: Unremarkable. ADRENALS: Unremarkable. No mass. KIDNEYS AND URETERS: There is no hydronephrosis or hydroureter of either kidney. No obstructing c alculus is seen. There is no perinephric stranding. STOMACH AND BOWEL: The stomach is minimally distended with food contents. The small bowel is norm al in caliber. Stool is present throughout the colon. There is no mucosal thickening or evidence of obstruction. PELVIS: APPENDIX: The appendix is normal in caliber without surrounding inflammation. BLADDER: The bladder is well distended. No stones. REPRODUCTIVE: Evidence of tubal ligation clips is noted. ABDOMEN and PELVIS: INTRAPERITONEAL SPACE: Unremarkable. No free air. No significant fluid collection. BONES/JOINTS: No acute fracture. SOFT TISSUES: The soft tissues are normal. VASCULATURE: Atherosclerosis of the vasculature is present. The vessels are normal in caliber. No abdominal aortic aneurysm. LYMPH NODES: Unremarkable. No enlarged lymph nodes. IMPRESSION: No acute findings on this noncontrast CT of the abdomen and pelvis to explain the patient's symptom s. Electronically signed by: Zaida Guerin MD 01/25/2025 02:55 AM CDT Due to temporary technical issues with the PACS/[employer] reporting system, reports are being oracio d by the in-house radiologist without review as a courtesy to ensure prompt reporting the interpreting radiologist is fully responsible for the content of the report. Transcribed Date/Time: 01/25/2025 2:58 AM
[2025-01-25] MEDS ORDERED: ONDANSETRON 4 MG/2 ML VIAL IV PRN (03:34)
--- NOTE | 2025-01-25 03:39 | P.HP ---
Certification for Inpatient Patient admitted to: Observation With expected LOS: <2 Midnights Practitioner: I am a practitioner with admitting privileges, knowledge of patient current condition, hospital course, and medical plan of care. Services: Services provided to patient in accordance with Admission requirements found in Title 42 Section 412.3 of the Code of Federal Regulations Patient History Date of Service: 01/25/25 Reason for admission: Facial Numbness History of Present Illness: 59 yrs old Female with past medical history of diabetes, hypertension, hyperlipidemia, history of CVA x 2 in the past with right-sided residual weakness who was brought to ER with chest discomfort and facial numbness which has been going on for few days and has been progressively getting worse and was brought to ER. Denies any fever or chills. Chest pain is retrosternal with pressure-like feeling with no radiation. Denies any history of atrial fibr illation. Chest pain is nonradiating not associated with diaphoresis, denies any shortness of breath. No nausea vomiting or diarrhea. Patient also complains of numbness of the face. Has residual weakness from previous stroke but no new weakness. Patient was assessed in the ER and is admitted for further management of possible CVA and to rule out ACS Allergies ciprofloxacin [From Cipro] Allergy (Verified 01/25/25 04:50) Itching/Hives/Rash ibuprofen [From Advil] Allergy (Unverified 01/05/17 01:13) Unknown iodine Allergy (Verified 01/25/25 04:50) Itching/Hives/Rash morphine Allergy (Verified 03/25/12 21:18) Nausea/Vomiting tramadol Allergy (Unverified 01/05/17 01:13) Unknown Home medications list reviewed: Yes - Past Medical/Surgical History Past Medical History: Reviewed- Non-Contributory -: Hypertension, hyperlipidemia, diabetes, CVA Past Surgical History: Reviewed- Non-Contributory -: Cholecystectomy - Family History Family History: Reviewed- Non-Contributory - Social History Smoking Status: Never smoker Review of Systems 10-point ROS is otherwise unremarkable Physical Examination - Vital Signs Temperature: 97.8 F Blood Pressure: 138/72 Pulse: 76 Respirations: 18 Pulse Ox (%): 94 - Physical Exam General: Alert, In no apparent distress, Oriented x3, Cooperative, Obese HEENT: Atraumatic, Normocephalic Neck: Supple, No Thyromegaly Respiratory: Clear to auscultation bilaterally, Normal air movement Cardiovascular: Regular rate/rhythm, Normal S1 S2 Capillary refill: <2 Seconds Gastrointestinal: Soft and benign, Non-distended, W/out hepatosplenomegaly Musculoskeletal: No clubbing, No swelling Integumentary: No rashes, No tenderness/swelling Neurological: Other (Alert awake. weakness in the right side) Lymphatics: No axilla or inguinal lymphadenopathy - Studies Laboratory Data (last 24 hrs) 01/25/25 01/25/25 01:30 01:30 WBC 8.50 Hgb 14.2 Hct 41.7 Plt Count 359 Sodium 140 Potassium 4.0 BUN 14 Creatinine 0.91 Glucose 100 Total Bilirubin 0.3 AST 49 H ALT 46 Alkaline Phosphatase 106 Lipase 83 H Assessment and Plan - Plan Facial Numbness To rule out CVA/TIA No new focal weakness Numbness of face Started on aspirin and statin CT CTA findings noted MRI brain ordered Monitor neuro vital signs Monitor under telemetry Chest pain to rule out ACS Will trend cardiac enzymes Will monitor telemetry Started on aspirin and statin EKG did not show any acute changes suggestive of ischemia Will get an echocardiogram Cardiology consult if troponins elevated Hypertension Antihypertensives titrated Continue home medications and titrate as needed Hyperlipidemia Continue statin Diabetes Insulin sliding scale Accu-Chek before every meal and at bedtime GI/DVT prophylaxis Advanced directive full code Discharge Plan: Home Plan to discharge in: 48 Hours - Advance Directives Does patient have a Living Will: No Does patient have a Durable POA for Healthcare: No - Code Status/Comfort Care Code Status: Full Code Time Spent Managing Pts Care (In Minutes): 48
--- NOTE | 2025-01-25 03:43 | EDPHYS ---
Physician Documentation [facility] Name: Amparo Franco Age: 59 yrs Sex: Female : 1965 Arrival Date: 01/25/2025 Time: 00:39 Bed 6 Private MD: ED Physician Jac Schmitz HPI: 01/25 01:56 This 59 yrs old Female presents to ER via Wheelchair with complaints of rt Abdominal Pain, Epigastric Pain. 01:56 Patient presents to the ED with epigastric pain rating to the chest. Reports a tingling rt to the lips. Reports history of previous stroke. Denies other acute complaints at this time, symptoms are moderate in severity, no other aggravating or alleviating factors.. Historical: - Allergies: 01:28 Advil; vc1 01:28 Cipro; vc1 01:28 IV contrast (Anaphylaxis); vc1 01:28 Morphine; vc1 01:28 tramadol; vc1 - PMHx: 01:28 CVA; Depression; Diabetes - NIDDM; Hyperlipidemia; Hypertension; Right sided weakness vc1 from CVA; - PSHx: 01:28 Cholecystectomy; section; vc1 - Immunization history:: Client reports receiving the 2nd dose of the Covid vaccine. - Infectious Disease History:: Denies. - Social history:: Smoking status: Patient denies any tobacco usage or history of. - Family history:: not pertinent. ROS: 01:56 Constitutional: Negative for fever, chills, and weight loss, Respiratory: Negative for rt shortness of breath, cough, wheezing, and pleuritic chest pain, MS/Extremity: Negative for injury and deformity, Skin: Negative for injury, rash, and discoloration, :56 Cardiovascular: Positive for chest pain, Negative for edema, 01:56 Abdomen/GI: Positive for abdominal pain, Negative for abdominal pain, :56 Neuro: Positive for numbness, Negative for weakness, Exam: :56 Constitutional: This is a well developed, well nourished patient who is awake, alert, rt and in no acute distress. Head/Face: Normocephalic, atraumatic. Chest/axilla: Normal chest wall appearance and motion. Nontender with no deformity. No lesions are appreciated. Cardiovascular: Regular rate and rhythm with a normal S1 and S2. No gallops, murmurs, or rubs. Normal PMI, no JVD. No pulse deficits. Respiratory: Lungs have equal breath sounds bilaterally, clear to auscultation and percussion. No rales, rhonchi or wheezes noted. No increased work of breathing, no retractions or nasal flaring. Skin: Warm, dry with normal turgor. Normal color with no rashes, no lesions, and no evidence of cellulitis. MS/ Extremity: Pulses equal, no cyanosis. Neurovascular intact. Full, normal range of motion. :56 ECG was reviewed by the Attending Physician. 01:56 Abdomen/GI: Tenderness epigastrium without rebound, guarding, distention, :56 Neuro: Cranial nerves II through XII intact, strength and sensation intact in upper lower extremities, speech normal, no ataxia [id number], Vital Signs: 01:26 BP 117 / 72; Pulse 77; Resp 20; Temp 98.1; Pulse Ox 97% ; Weight 68.95 kg; Height 4 ft. vc1 10 in. ; 02:20 BP 104 / 67; Pulse 69; Resp 15; Pulse Ox 95% ; vc1 03:23 BP 119 / 77; Pulse 66; Resp 17; Pulse Ox 99% ; vc1 04:43 BP 105 / 69; Pulse 67; Resp 17; Pulse Ox 95% ; vc1 01:26 Body Mass Index 31.77 (68.95 kg, 147.32 cm) vc1 MDM: 01:13 Medical Screening Exam initiated rt 03:42 Differential Diagnosis Gastritis, pancreatitis, bowel obstruction, ACS, CVA, TIA. Data rt reviewed: vital signs, nurses notes, lab test result(s), EKG, radiologic studies. Consideration of Admission/Observation Patient was admitted/placed on observation. Management of patient was discussed with the following: Hospitalist: Agrees to admit. I considered the following discharge prescriptions or medication management in the emergency department Medications were administered in the Emergency Department. See MAR. Independent interpretation of the following test(s) in the Emergency Department CT Scan: My interpretation is No intracranial hemorrhage seen on interpretation of CT scan images. Care significantly affected by the following chronic conditions: CVA, diabetes. Counseling: I had a detailed discussion with the patient and/or guardian regarding the historical points, exam findings, and any diagnostic results supporting the discharge/admit diagnosis, lab results, radiology results, the need for further work-up and treatment in the hospital. ED course: GI cocktail, patient states that her abdominal pain has improved, however, she still has ongoing chest pain as well as numbness to her face which is concerning for CVA.. 03:43 ED course: Family of onset is greater than 4.5 hours, is not a TNKase candidate. rt 01/25 01:28 Order name: CBC with Diff; Complete Time: 02:08 rt 01/25 01:28 Order name: CMP; Complete Time: 02:08 rt 01/25 01:28 Order name: Lipase; Complete Time: 02:08 rt 01/25 01:28 Order name: Troponin High Sensitivity; Complete Time: 02:08 rt 01/25 03:40 Order name: CBC with Automated Diff EDMS / 03:40 Order name: CBC with Automated Diff EDMS / 03:40 Order name: Comprehensive Metabolic Panel EDMS / 03:40 Order name: Comprehensive Metabolic Panel EDMS 05/ 03:40 Order name: Lipid Profile EDMS 05/ 03:40 Order name: Lipid Profile EDMS 05/05 03:40 Order name: Troponin High Sensitivity EDMS 05/05 03:40 Order name: Troponin High Sensitivity EDMS 05/05 03:40 Order name: Troponin High Sensitivity EDMS 05/05 03:40 Order name: Troponin High Sensitivity EDMS 05/05 09:04 Order name: LDL, Direct EDMS / 01:28 Order name: CT Abd/Pelvis - Without Contrast rt 01/25 01:28 Order name: CT Head Brain wo Cont rt 01/25 03:40 Order name: Echo with Doppler EDMS 01/25 08:06 Order name: MRI EDMS 01/25 01:28 Order name: EKG; Complete Time: 01:29 rt 01/25 03:40 Order name: IRF Screen EDMS 01/25 03:40 Order name: Physical Therapy Consult EDMS 01/25 03:40 Order name: Speech Therapy Consult EDMS 01/25 01:28 Order name: IV Saline Lock; Complete Time: 01:33 rt 01/25 01:28 Order name: Labs collected and sent; Complete Time: 01:33 rt 01/25 01:28 Order name: EKG - Nurse/Tech; Complete Time: 01:33 rt EC:56 Rate is 71 beats/min. Rhythm is regular, Normal Sinus Rhythm with No ectopy. QRS [place] rt is Normal. OK interval is normal. QRS interval is normal. QT interval is normal. No Q waves. No ST changes noted. Interpreted by me. Administered Medications: 01:57 Drug: Famotidine IVP 20 mg IVP once; dilute with 10 mL 0.9% NaCl; give over 2 minutes vc1 Route: IVP; Site: right antecubital; 02:20 Follow up: Response: No adverse reaction; Marked relief of symptoms vc1 01:57 Drug: NS 0.9% IV 1000 ml IV at 1 bolus Per protocol; to be given as a bolus over 60 vc1 minutes Route: IV; Rate: 1 bolus; Site: right antecubital; 03:00 Follow up: IV Status: Completed infusion; IV Intake: 1000ml vc1 01:57 Drug: GI Cocktail without - (Maalox PO 30 ml, Lidocaine Mucous Membrane 2 % 15 vc1 ml) PO once Route: PO; 02:20 Follow up: Response: No adverse reaction; Marked relief of symptoms vc1 04:45 Follow up: Response: No adverse reaction; Marked relief of symptoms vc1 Disposition Summary: 01/25/25 03:42 Hospitalization Ordered Notes: Hospitalization Status: Observation rt Provider: Jeremy Landrum rt Condition: Stable rt Problem: new rt Symptoms: have improved rt Bed/Room Type: Standard rt Location: Telemetry/MedSurg (observation)(01/25/25 10:53) bd Room Assignment: 213(01/25/25 10:53) bd Diagnosis - Facial numbness rt - Chest pain rt - Epigastric pain rt Discharge Instructions: - Discharge Summary Sheet jl7 Forms: - Work release form jl7 - Medication Reconciliation Form rt - SBAR form rt - Leadership Thank You Letter rt Signatures: Dispatcher [employer] EDMS Tammie Fowler bd Adela Lopez RN RN vc1 Jac Schmitz MD MD rt Corrections: (The following items were deleted from the chart) 01: 01:29 Head Brain Wo Cont+CT.RAD.BRZ ordered. EDMS EDMS 04:43 03:42 Telemetry/MedSurg (observation) rt vc1 04:43 03:42 rt vc1 10:53 04:43 [facility] ER HOLD vc1 bd 10:53 04:43 ERHOLD- vc1 bd
--- NOTE | 2025-01-25 03:43 | ER ---
Nurse's Notes [facility] Name: Amparo Franco Age: 59 yrs Sex: Female : 1965 Arrival Date: 01/25/2025 Time: 00:39 Bed 6 Private MD: Diagnosis: Facial numbness;Chest pain;Epigastric pain Presentation: 01/25 01:26 Chief complaint: Patient states: epigastric pain that radiates to chest, with chest vc1 tightness, tingling of face and lips with pain to right arm. Coronavirus screen: Client denies travel out of the [place] in the last 14 days. At this time, the client does not indicate any symptoms associated with coronavirus-19. Ebola Screen: Patient negative for fever greater than or equal to 101.5 degrees Fahrenheit, and additional compatible Ebola Virus Disease symptoms Patient denies exposure to infectious person. Patient denies travel to an Ebola-affected area in the 21 days before illness onset. No symptoms or risks identified at this time. Initial Sepsis Screen: Does the patient meet any 2 criteria? No. Patient's initial sepsis screen is negative. Does the patient have a suspected source of infection? No. Patient's initial sepsis screen is negative. Risk Assessment: Do you want to hurt yourself or someone else? Patient reports no desire to harm self or others. Onset of symptoms was January 25, 2025. 01:26 Method Of Arrival: Wheelchair vc1 01:26 Acuity: HARPREET 2 vc1 Triage Assessment: 01:05 General: Appears in no apparent distress. uncomfortable, obese, well groomed, well vc1 developed, Behavior is calm, cooperative, appropriate for age. Pain: Complains of pain in epigastric area Pain radiates to chest and right arm Quality of pain is described as burning, tightness Also complains of nausea. EENT: No deficits noted. No signs and/or symptoms were reported regarding the EENT system. Neuro: Level of Consciousness is awake, alert, obeys commands, Oriented to person, place, time, situation, Appropriate for age. Cardiovascular: Reports chest pain, nausea, Heart tones S1 S2 present Capillary refill < 3 seconds Patient's skin is warm and dry. Rhythm is sinus rhythm. Respiratory: Airway is patent Respiratory effort is even, unlabored, Respiratory pattern is regular, symmetrical, Breath sounds are clear bilaterally. GI: Abdomen is round non-distended, Reports epigastric pain, nausea. : No deficits noted. No signs and/or symptoms were reported regarding the genitourinary system. Derm: Skin is intact, is healthy with good turgor, Skin is dry, Skin is normal, Skin temperature is warm. Musculoskeletal: Circulation, motion, and sensation intact. Range of motion: intact in all extremities. Historical: - Allergies: : Advil; vc1 : Cipro; vc1 : IV contrast (Anaphylaxis); vc1 : Morphine; vc1 :28 tramadol; vc1 - PMHx: : CVA; Depression; Diabetes - NIDDM; Hyperlipidemia; Hypertension; Right sided weakness vc1 from CVA; - PSHx: Cholecystectomy; section; vc1 - Immunization history:: Client reports receiving the 2nd dose of the Covid vaccine. - Infectious Disease History:: Denies. - Social history:: Smoking status: Patient denies any tobacco usage or history of. - Family history:: not pertinent. Screenin:29 [facility] ED Fall Risk Assessment (Adult) History of falling in the last 3 months, vc1 including since admission No falls in past 3 months (0 pts) Confusion or Disorientation No (0 pts) Intoxicated or Sedated No (0 pts) Impaired Gait No (0 pts) Mobility Assist Device Used No (0 pt) Altered Elimination No (0 pt) Score/Fall Risk Level 0 - 2 = Low Risk Oriented to surroundings, Maintained a safe environment, Educated pt \T\ family on fall prevention, incl call for assistance when getting out of bed, Assessed \T\ reinforced patient's understanding of fall precautions, Hourly rounding (assess needs \T\ fall precautionary measures) done. Abuse screen: Denies threats or abuse. Nutritional screening: No deficits noted. Tuberculosis screening: No symptoms or risk factors identified. Assessment: :32 General: See triage assessment. vc1 02:20 Reassessment: Patient appears in no apparent distress at this time. Patient and/or vc1 family updated on plan of care and expected duration. Pain level reassessed. Patient is alert, oriented x 3, equal unlabored respirations, skin warm/dry/pink. 02:20 GI: Bowel sounds present X 4 quads. Abd is soft Abd is non tender. vc1 03:23 Reassessment: Patient appears in no apparent distress at this time. Patient and/or vc1 family updated on plan of care and expected duration. Pain level reassessed. Patient is alert, oriented x 3, equal unlabored respirations, skin warm/dry/pink. Patient states feeling better. Patient states symptoms have improved. 04:43 Reassessment: Patient appears in no apparent distress at this time. No changes from vc1 previously documented assessment. Patient and/or family updated on plan of care and expected duration. Pain level reassessed. Patient is alert, oriented x 3, equal unlabored respirations, skin warm/dry/pink. Vital Signs: 01:26 BP 117 / 72; Pulse 77; Resp 20; Temp 98.1; Pulse Ox 97% ; Weight 68.95 kg; Height 4 ft. vc1 10 in. ; 02:20 BP 104 / 67; Pulse 69; Resp 15; Pulse Ox 95% ; vc1 03:23 BP 119 / 77; Pulse 66; Resp 17; Pulse Ox 99% ; vc1 04:43 BP 105 / 69; Pulse 67; Resp 17; Pulse Ox 95% ; vc1 01:26 Body Mass Index 31.77 (68.95 kg, 147.32 cm) vc1 ED Course: 00:42 Patient arrived in ED. [id number] 00:43 Jac Schmitz MD is Attending Physician. rt 01:05 Initial lab(s) drawn, by ED staff, sent to lab. EKG done. Inserted saline lock: 22 vc1 gauge in right antecubital area, using aseptic technique. Blood collected. Flushed with 10 mL NS. 01:28 Triage completed. vc1 01:28 Arm band placed on right wrist. vc1 01:29 Patient has correct armband on for positive identification. Bed in low position. Call vc1 light in reach. Adult w/ patient. Provided Education on: Plan of care. manager monitoring on. Pulse ox on. NIBP on. 01:56 Adela Lopez RN is Primary Nurse. vc1 02:07 CT Abd/Pelvis - Without Contrast In Process Unspecified. EDMS 02:07 CT Head Brain wo Cont In Process Unspecified. EDMS 03:41 Jeremy Landrum MD is Hospitalizing Provider. rt 04:43 No provider procedures requiring assistance completed. Patient admitted, IV remains in vc1 place. Administered Medications: 01:57 Drug: Famotidine IVP 20 mg IVP once; dilute with 10 mL 0.9% NaCl; give over 2 minutes vc1 Route: IVP; Site: right antecubital; 02:20 Follow up: Response: No adverse reaction; Marked relief of symptoms vc1 01:57 Drug: NS 0.9% IV 1000 ml IV at 1 bolus Per protocol; to be given as a bolus over 60 vc1 minutes Route: IV; Rate: 1 bolus; Site: right antecubital; 03:00 Follow up: IV Status: Completed infusion; IV Intake: 1000ml vc1 01:57 Drug: GI Cocktail without - (Maalox PO 30 ml, Lidocaine Mucous Membrane 2 % 15 vc1 ml) PO once Route: PO; 02:20 Follow up: Response: No adverse reaction; Marked relief of symptoms vc1 04:45 Follow up: Response: No adverse reaction; Marked relief of symptoms vc1 Medication: 01:30 VIS not applicable for this client. vc1 Intake: 03:00 IV: 1000ml; Total: 1000ml. vc1 Outcome: 03:42 Decision to Hospitalize by Provider. rt 04:43 Admitted to ER Hold. Please see [facility] for further documentation. vc1 04:43 Condition: stable 04:43 Instructed on the need for admit, 11:51 Patient left the ED. hb Signatures: Dispatcher [employer] EDMS Shivani Beck RN RN Eli Cunningham [id number] Adela Lopez RN RN vc1 Jac Schmitz MD MD rt Corrections: (The following items were deleted from the chart) 02:21 02:20 BP 046 / 7; Pulse 69bpm; Resp 15bpm; Pulse Ox 95%; vc1 vc1
[2025-01-25 04:55] VITALS: BMI 31.7
[2025-01-25] MEDS: NA CHLORIDE 0.9% 1,000 ML IV SCH (05:29)
--- NOTE | 2025-01-25 08:05 | RAD REPORT ---
EXAMINATION: MRI BRAIN WITHOUT CONTRAST CLINICAL INDICATION: CVA TECHNIQUE: Multiplanar multisequence MR images of the brain were obtained without intravenous contras t. Unless otherwise specified, incidental findings do not require dedicated imaging follow-up. COMPARISON: No prior exam. FINDINGS: INTRACRANIAL: Diffusion-weighted images show no acute or early subacute infarction. No abnormal brain parenchymal signal. The ventricles are normal in size and morphology. Elevated susceptibility is seen in the left periventricular white matter likely related to remote ischemia.. There is no mass ef fect or midline shift. No abnormal extraaxial fluid collection. VASCULATURE: Normal signal voids in the larger intracranial arteries and dural venous sinuses. SINUSES: The paranasal sinuses and mastoid air cells are predominantly clear. BONE: The marrow signal pattern is within normal limits. IMPRESSION: Negative for acutre CVA or other acute intracranial finding.
[2025-01-25] MEDS: ASPIRIN EC 81 MG TAB PO SCH (09:00)
[2025-01-25] MEDS: ENOXAPARIN 40 MG/0.4 ML SQ SCH (09:00)
[2025-01-25] MEDS ORDERED: ENOXAPARIN 40 MG/0.4 ML SQ ONE (09:39)
[2025-01-25] MEDS ORDERED: ASPIRIN 81 MG CHEWABLE TABLET ONE (09:39)
--- NOTE | 2025-01-25 12:03 | EKG ---
Test Date: 2025-01-25 Test Time: 01:12:07 [employer]electric [employer] Operator: NEL MEASUREMENT RESULTS: Intervals: Rate: 71 MA: 118 QRSD: 70 QT: 354 QTc: 384 Bryant: P: 56 MA: 118 QRS: 22 T: 48 INTERPRETIVE STATEMENTS: Normal sinus rhythm Nonspecific T wave abnormality Abnormal ECG Compared to ECG 05/22/2023 15:20:47 T-wave abnormality now present Electronically Signed On 01-25-25 12:02:15 CDT by Jimmy Puente
[2025-01-25 12:37] VITALS: O2SAT 97
[2025-01-25 12:37] LABS: Absolute Basophils 0.1 K/uL (0-0.5); Absolute Eosinophils 0.2 K/uL (0-0.5); Absolute Monocytes 0.4 K/uL (0.1-1.3); Absolute Neutrophil 3.8 K/uL (1.8-8.0); Basophils % 0.8 % (0-1.3); Eosinophils % 2.2 % (0-4.4); Hematocrit 40.6 % (36.0-45.0); Hemoglobin 13.7 g/dL (12.0-15.0); MCH 31.2 pg (27.0-35.0); MCHC 33.9 g/dL (32.0-36.0); MPV 8.2 fL (7.6-11.3); Monocytes % 5.1 % (3.3-12.3); Neutrophils % 51.9 % (41.7-73.7); Nucleated Red Blood Cells % 0.2 % (0-0); Platelets 299 thou/uL (152-406); RBC Red Blood Cell Count 4.41 M/uL (3.86-4.86); Red Cell Distribution Width 14.1 % (12.1-15.2)
[2025-01-25 13:15] LABS: ALT/SGPT 41 U/L (13-56); AST/SGOT 28 U/L (15-37); Albumin 3.6 g/dL (3.4-5.0); Alkaline Phosphatase 93 U/L (45-117); BUN Blood Urea Nitrogen 12 mg/dL (7-18); Bicarbonate 27 mEq/L (21-32); Bilirubin Total 0.3 mg/dL (0.2-1.0); Globulin 3.5 g/dL (2.3-3.5); Glomerular Filtration Rate 94 ml/min (=/>90); Glucose Level 100 mg/dL (74-106); HDL Cholesterol 49 mg/dL (40-60); LDL Cholesterol, Calculated 59 mg/dL (<130); LDL Cholesterol,Calc NonReport 59; Lipase 64 U/L (13-75); Magnesium 2.2 mg/dL (1.6-2.4); Protein, Total 7.1 g/dL (6.4-8.2); Sodium Level 141 mEq/L (136-145); Troponin High Sensitivity 5.7 pg/mL (<58.9)
[2025-01-25 13:16] LABS: C-Reactive Protein < 2.90 mg/L (<3.00)
[2025-01-25] MEDS ORDERED: HOME MED 1 EA UNK (Gabapentin [Gabapentin] 600 MG Tablet) PO SCH (14:00)
[2025-01-25] MEDS: ACETAMINOPHEN 500 MG TAB PO PRN (14:01)
[2025-01-25] MEDS: GABAPENTIN 300 MG CAP PO SCH (14:02)
[2025-01-25 17:02] VITALS: BP 116/65; TEMP 97.8
[2025-01-25] MEDS ORDERED: ATORVASTATIN 20 MG TAB PO SCH (21:00)
[2025-01-25] MEDS ORDERED: ATORVASTATIN 80 MG TAB PO SCH (21:00)
[2025-01-25] MEDS ORDERED: TOPIRAMATE 100 MG TAB PO SCH (21:00)
[2025-01-26] MEDS ORDERED: PANTOPRAZOLE 40MG TABLET PO SCH (07:30)
[2025-01-26] MEDS ORDERED: METFORMIN HCL 500 MG TAB PO SCH (08:00)
[2025-01-26] MEDS ORDERED: BACLOFEN 10 MG TAB PO SCH (09:00)
[2025-01-26] MEDS ORDERED: DOCOSAHEXANOIC AC/EPA 1000 MG PO SCH (09:00)
[2025-01-26] MEDS ORDERED: VITAMIN D 1000 UNIT TAB PO SCH (09:00)
[2025-01-26] MEDS ORDERED: HOME MED 1 EA UNK (Omega-3 Fatty Acids [Omega-3] 1,000 MG Capsule) PO SCH (09:00)
[2025-01-26] MEDS ORDERED: lisinopriL 10 MG TAB PO SCH (09:00)
[2025-01-26] MEDS ORDERED: CYANOCOBALAMIN 1,000 MCG TAB SL SCH (09:00)
[2025-01-26] MEDS ORDERED: LINACLOTIDE 72 MCG PO SCH (09:00)
== END 2025-01-25 16:40 | disposition home or self-care (01) ==
LOC: ER 00:39 → INTOOBSV 03:34 → ERHOLD 03:34 → 2ND 11:33
PROVIDERS: ADMIT Family Medicine; ATTEND Hospitalist
DX: R07.9 Chest pain, unspecified (principal); R20.0 Anesthesia of skin; R10.13 Epigastric pain; I10 Essential (primary) hypertension; E78.5 Hyperlipidemia, unspecified; G81.90 Hemiplegia, unspecified affecting unspecified side; E11.9 Type 2 diabetes mellitus without complications; Z88.1 Allergy status to other antibiotic agents; Z88.5 Allergy status to narcotic agent; Z88.6 Allergy status to analgesic agent
CPT/HCPCS: 93005; 85025 ×2; 36415; 83721; 83735; 80061; 83605; 84443; 84484 ×4; 84439; 82607; 83690 ×2; 83540; 80053 ×2; 86140; 70450; 74176; 70551; 92610; 97112; 97161; 94760; J1650; J7030 ×2; G0378 ×3; 96361; 96374; 99285